=== PATIENT | male | born 1935 | race Caucasian/White ===

== ENCOUNTER 2017-02-03 10:06 | Inpatient (IN) | payer MEDICARE, OTHER ==
[2017-02-03 10:07] VITALS: BMI 26.2
[2017-02-03 11:19] LABS: VENOUS BLOOD GAS PCO2 39 mmHg (40-60); VENOUS BLOOD PH 7.26 (7.32-7.43)
[2017-02-03 11:42] LABS: BASO # 0.2 K/uL (0.0-0.2); BASO % 1.4 % (0.0-2.0); EOS # 0.1 K/uL (0.0-0.7); HEMATOCRIT 33.7 % (35.0-51.0); LYMPH # 1.8 K/uL (1.0-4.3); LYMPH % 13.4 % (20.0-40.0); MEAN CELL VOLUME 84.8 fL (80.0-94.0); MEAN CORPUSCULAR HEMOGLOBIN 28.2 pg (27.0-31.0); MEAN CORPUSCULAR HGB CONC 33.2 g/dL (33.0-37.0); MEAN PLATELET VOLUME 8.5 fL (7.2-11.7); MONO # 1.1 K/uL (0.0-0.8); MONO % 8.6 % (0.0-10.0); RED CELL DISTRIBUTION WIDTH 14.6 % (11.5-14.5)
[2017-02-03 11:43] LABS: WHITE BLOOD COUNT 13.1 K/uL (4.8-10.8)
--- NOTE | 2017-02-03 11:45 | C.PDOC ---
History Of Present Illness 81 year old patient, with a past medical history of insulin dependent diabetes, presents to the ED from the day care complaining of an infection to the right knee. Patient states it started about 5-6 days ago. He notes drainage and pain with movement of the knee. Patient denies fever, numbness, weakness, or other complaints. Time Seen by Provider: 02/03/17 10:32 Chief Complaint (Nursing): Medical Clearance History Per: Patient History/Exam Limitations: no limitations Onset/Duration Of Symptoms: Days (5-6) Current Symptoms Are (Timing): Still Present Severity: Mild Pain Scale Rating Of: 3 Recent travel outside of the [place]: No Past Medical History Reviewed: Historical Data, Nursing Documentation, Vital Signs Vital Signs: Last Vital Signs Temp 97.8 F 02/03/17 13:46 Pulse 60 02/03/17 13:46 Resp 18 02/03/17 13:46 BP 163/75 H 02/03/17 13:46 Pulse Ox 98 02/03/17 13:46 - Medical History PMH: Alzheimer's Disease, Anemia, Arthritis (BACK, BL KNEE), CVA, Dementia, Diabetes, HTN, Hypercholesterolemia, Hyperlipidemia - [facility] Procedures DILATION OF COMMON BILE DUCT WITH INTRALUMINAL DEVICE, ENDO (12/03/15) EXCISION OF SMALL INTESTINE, ENDO, DIAGN (07/21/15) OCCUPATIONAL THERAPY (03/15/14) OTHER SPEECH THERAPY (03/20/14) PHYSICAL THERAPY NEC (11/23/13) RECREATIONAL THERAPY (11/23/13) RELEASE PERITONEUM, PERCUTANEOUS ENDOSCOPIC APPROACH (12/03/15) RESECTION OF GALLBLADDER, PERCUTANEOUS ENDOSCOPIC APPROACH (12/03/15) Family History: States: Unknown Family Hx - Social History Hx Tobacco Use: No Hx Alcohol Use: No Hx Substance Use: No - Immunization History Hx Tetanus Toxoid Vaccination: No Hx Influenza Vaccination: Yes (2014) Hx Pneumococcal Vaccination: No Review Of Systems Except As Marked, All Systems Reviewed And Found Negative. Constitutional: Negative for: Fever Musculoskeletal: Positive for: Other (right knee pain) Skin: Positive for: Other (draining from right knee) Neurological: Negative for: Weakness, Numbness Physical Exam - Physical Exam Appears: Non-toxic, No Acute Distress Skin: Warm, Dry Head: Atraumatic, Normacephalic Oral Mucosa: Moist Neck: Normal ROM, Supple Chest: Symmetrical Cardiovascular: Rhythm Regular Respiratory: Normal Breath Sounds, No Rales, No Rhonchi, No Wheezing Gastrointestinal/Abdominal: Soft, No Tenderness Back: Normal Inspection Extremity: No Calf Tenderness, Capillary Refill (<2 seconds), No Deformity, No Swelling, Other (draining abscess to the lateral aspect of the right knee. At the level of the patella-there is surrounding erythema and cellulitis to the medial aspect of the right knee. There is a non-draining wound at the level of the patella. Slight decrease in range of motion secondary to pain. normal distal pulses. normal strength and sensation.) Neurological/Psych: Oriented x3, Normal Motor, Normal Sensation ED Course And Treatment - Laboratory Results Result Diagrams: 02/03/17 11:37 02/03/17 11:37 ECG: Interpreted By Me, Viewed By Me ECG Rhythm: Sinus Rhythm Interpretation Of ECG: left axis deviation Rate From EC (bpm) O2 Sat by Pulse Oximetry: 99 (room air) Pulse Ox Interpretation: Normal - Other Rad right knee x-ray X-Ray: Read By Radiologist (Dr. Rasmussen, Cyrus GENTILE) Interpretation: PROCEDURE: Right Knee Radiographs. HISTORY: Right leg lump, osteomyelitis suspected following a laceration. COMPARISON: None. FINDINGS: BONES: Normal. No fracture. JOINTS: Normal. No osteoarthritis. JOINT EFFUSION: None. OTHER FINDINGS: None. IMPRESSION: No significant or acute findings to account for/ related to the clinical presentation. Progress Note: VBG was done. Labs were sent. Right knee x-ray taken. Medical Decision Making Medical Decision Making: Spoke to orthopedic PA - recommends no arthocentesis at this time. Patient to be admitted to [facility]. Disposition - Disposition Disposition: HOSPITALIZED Disposition Time: 12:00 Condition: STABLE - Clinical Impression Clinical Impression: JAY JAY (acute kidney injury), Hyperkalemia, Cellulitis of right knee - Scribe Statement The provider has reviewed the documentation as recorded by the Scribe Rianna Malin Provider Attestation: All medical record entries made by the Scribe were at my direction and personally dictated by me. I have reviewed the chart and agree that the record accurately reflects my personal performance of the history, physical exam, medical decision making, and the department course for this patient. I have also personally directed, reviewed, and agree with the discharge instructions and disposition.
[2017-02-03 11:49] LABS: CHLORIDE 105 mmol/L (98-107)
[2017-02-03 11:50] LABS: SODIUM 136 mmol/L (132-148)
[2017-02-03 11:52] LABS: ALB/GLOB RATIO 1.2 (1.0-2.1); ALKALINE PHOSPHATASE 110 U/L (38-126); AST/SGOT 35 U/L (17-59); BILIRUBIN,TOTAL 0.8 mg/dL (0.2-1.3); BLOOD UREA NITROGEN 39 mg/dL (9-20); CARBON DIOXIDE 17 mmol/L (22-30); GFR AFRICAN-AMERICAN 30; GLUCOSE,RANDOM 166 mg/dL (75-110); TOTAL PROTEIN 8.1 g/dL (6.3-8.3)
[2017-02-03 11:53] LABS: ALT/SGPT 30 U/L (21-72); CALCIUM 9.3 mg/dl (8.6-10.4)
[2017-02-03 11:56] LABS: POTASSIUM 5.7 mmol/L (3.6-5.2)
--- NOTE | 2017-02-03 12:18 | RAD ---
PROCEDURE: Right Knee Radiographs. HISTORY: Right leg lump, osteomyelitis suspected following a laceration. COMPARISON: None. FINDINGS: BONES: Normal. No fracture. JOINTS: Normal. No osteoarthritis. JOINT EFFUSION: None. OTHER FINDINGS: None. IMPRESSION: No significant or acute findings to account for/ related to the clinical presentation.
[2017-02-03] MEDS ORDERED: Sod Polystyrene Sulf 15 gm/60 ml Oral Susp PO STA (12:39)
[2017-02-03] MEDS ORDERED: Sod Polystyrene Sulf 15 gm/60 ml Oral Susp ONE (12:53)
[2017-02-03] MEDS ORDERED: Sodium Chloride 0.9% 1,000 ML ONE (12:53)
[2017-02-03] MEDS: Sodium Chloride 0.9% 1,000 ML IV SCH ×2 (12:56→23:00)
--- NOTE | 2017-02-03 13:22 | CP.PCM.CON ---
History of Present Illness - History of Present Illness History of Present Illness: orthopedic consultation requested Dr. Pineda for right knee pain and swelling 81M complains of right knee redness and swelling for approx 5 days. at bedside, says some liquid came out. History difficult to assess, questions asked multiple times to and patient. No history of any prior knee infection. He says he legs itch all the time. No other areas of pain or swelling. Review of Systems - Review of Systems All systems: reviewed and no additional remarkable complaints except - Constitutional Additional comments: denies fevers - Cardiovascular Additional comments: denies CP - Respiratory Additional comments: denies SOB - Musculoskeletal Musculoskeletal: As Per HPI - Integumentary Integumentary: Erythema, Pruritus, Wounds - Neurological Additional comments: denies numbess/tingling - Hematologic/Lymphatic Hematologic: absent: As Per HPI, Easy Bleeding, Easy Bruising, Lymphadenopathy, Other Past Patient History - Past Medical History & Family History Past Medical History?: Yes Past Family History: Reviewed and not pertinent - Past Social History Smoking Status: Never Smoked - CARDIAC Hx Hypercholesterolemia: Yes Hx Hypertension: Yes - PULMONARY Hx Respiratory Disorders: No - NEUROLOGICAL Hx Alzheimer's Disease: Yes Hx Dementia: Yes - HEENT Hx HEENT Problems: Yes Hx Cataracts: Yes (SURGERY) - RENAL Hx Chronic Kidney Disease: No - ENDOCRINE/METABOLIC Hx Endocrine Disorders: Yes Hx Diabetes Mellitus Type 2: Yes - HEMATOLOGICAL/ONCOLOGICAL Hx Anemia: Yes - INTEGUMENTARY Hx Dermatological Problems: No - MUSCULOSKELETAL/RHEUMATOLOGICAL Hx Arthritis: Yes (BACK, BL KNEE) - GASTROINTESTINAL Hx Gastrointestinal Disorders: Yes (''STOMACH BACTERIA'') - GENITOURINARY/GYNECOLOGICAL Hx Genitourinary Disorders: No - PSYCHIATRIC Hx Substance Use: No - SURGICAL HISTORY Hx Surgeries: Yes Hx Cataract Extraction: Yes Other/Comment: LEFT BEHIND EAR SURGERY FROM BLOOD CLOTS ,RIGHT HAND SURGERY - ANESTHESIA Hx Anesthesia: Yes Hx Anesthesia Reactions: No Hx Malignant Hyperthermia: No Meds Allergies/Adverse Reactions: Allergies Allergy/AdvReac Type Severity Reaction Status Date / Time No Known Allergies Allergy Verified 04/30/16 11:22 - Medications Medications: Current Medications Sodium Chloride (Sodium Chloride 0.9%) 1,000 mls @ 100 mls/hr IV .Q10H DARINEL Last Admin: 02/03/17 12:56 Dose: 100 mls/hr Vancomycin HCl 1 gm/ Sodium (Chloride) 250 mls @ 166.7 mls/hr IVPB STAT STA Stop: 02/03/17 14:08 Last Admin: 02/03/17 13:19 Dose: 166.7 mls/hr Physical Exam - Constitutional Appears: No Acute Distress - Respiratory Exam Respiratory Exam: NORMAL BREATHING PATTERN - Extremities Exam Additional comments: Full AROM of right knee without pain no joint effusion erythema localized to around the two wounds no erythema to rest of knee calves soft NT neg homans +DP pulses noted superficial excoriations to BLE, no surrounding erythema - Neurological Exam Additional comments: awake NAD - Psychiatric Exam Psychiatric exam: Flat Affect - Skin Additional comments: + erythema to medial knee 3cm circ surrounding 1cm scab larger area of erythema 10cm around superficial draining abscess to lateral knee Results - Vital Signs Recent Vital Signs: Last Vital Signs Temp 97.6 F 02/03/17 10:23 Pulse 71 02/03/17 10:23 Resp 18 02/03/17 10:23 BP 133/67 02/03/17 10:23 Pulse Ox 99 02/03/17 12:33 - Labs Result Diagrams: 02/03/17 11:37 02/03/17 11:37 Labs: Laboratory Results - last 24 hr 02/03/17 02/03/17 02/03/17 11:14 11:37 11:37 WBC 13.1 H D RBC 3.97 L Hgb 11.2 L Hct 33.7 L MCV 84.8 MCH 28.2 MCHC 33.2 RDW 14.6 H Plt Count 361 D MPV 8.5 Neut % (Auto) 75.6 H Lymph % (Auto) 13.4 L [place] % (Auto) 8.6 Eos % (Auto) 1.0 Baso % (Auto) 1.4 Neut # 9.9 H Lymph # 1.8 Republic # 1.1 H Eos # 0.1 Baso # 0.2 pO2 37 VBG pH 7.26 L VBG pCO2 39 L VBG HCO3 16.9 VBG Total CO2 18.7 L VBG O2 Sat (Calc) 69.2 H VBG Base Excess -9.0 L VBG Potassium 5.2 Sodium 142.0 136 Chloride 113.0 H 105 Glucose 166 H Lactate 1.6 Potassium 5.7 H Carbon Dioxide 17 L Anion Gap 20 BUN 39 H Creatinine 2.5 H Est GFR ( Amer) 30 Est GFR (Non-Af Amer) 25 Random Glucose 166 H Calcium 9.3 Total Bilirubin 0.8 AST 35 ALT 30 Alkaline Phosphatase 110 Total Protein 8.1 Albumin 4.4 Globulin 3.7 Albumin/Globulin Ratio 1.2 Venous Blood Potassium 5.2 Serum Ketones Negative Assessment & Plan (1) Cellulitis and abscess of right leg Assessment and Plan: No joint effusion, full ROM knee without pain, clinically very low suspicion of septic arthritis no arthrocentesis indicated at time due to lack of effusion, low suspicion, and risk of seeding joint abscess is spontaneously draining at this time, will monitor to make sure it continues to drain, will reeval need for I&D IV abx per medical team MRI to further eval abscess, no contrast due to elevated Cr d/w Dr. Pineda, agrees with above Status: Acute Radiology Interpretation - Patient Access Director Patient Access Director:: Radiologist, Tile Classifier - Radiology Interpretation #2 Interpretation: Patient Name / ID : YOLANDA HAMM / [id number] Exam Date : 02/03/2017 10:55:44 ( Approved ) Study Comment : Sex / Age : M / [id number] Creator : Cyrus Dai MD Dictator : Cyrus Dai MD Rubberizing Mechanic : Assistant Director Of Public Works : Cyrus Dai MD Approver2 : Report Date : 02/03/2017 12:17:16 My Comment : PROCEDURE: Right Knee Radiographs. HISTORY: Right leg lump, osteomyelitis suspected following a laceration. COMPARISON: None. FINDINGS: BONES: Normal. No fracture. JOINTS: Normal. No osteoarthritis. JOINT EFFUSION: None. OTHER FINDINGS: None. IMPRESSION: No significant or acute findings to account for/ related to the clinical presentation.
--- NOTE | 2017-02-03 16:38 | CP.PCM.HP ---
<Rober Cervantes - Last Filed: 02/03/17 17:04> History of Present Illness - History of Present Illness History of Present Illness: This is a an 81 yo male with past medical hx of DM, HTN, HLD, Alzheimers presenting with right knee pain x 1 week. Pt cannot rate pain on pain scale. Associated with some pus drainage and erythema and warmth. NO fevers, chills, vomiting, diarrhea, or other systemic sx. Pt cannot say if he has tried to alleviate sx at home. Pt has never had this before. He has reduced rom and cannot bear weight. PMH: HTN, CVA, HLD, Alzheimer's PSH: None Current meds: pending pharmacy confirmation Allergies: NKDA FH: Non contributory Social hx: Denies smoking or ever smoking. Denies drinking or drugs. Lives in [place] with . Able to do ADLs with help of cane. Present on Admission - Present on Admission Any Indicators Present on Admission: No History of DVT/PE: No History of Uncontrolled Diabetes: No Urinary Catheter: No Decubitus Ulcer Present: No Review of Systems - Review of Systems All systems: reviewed and no additional remarkable complaints except Review of Systems: Negative except HPI. Past Patient History - Infectious Disease Hx of Infectious Diseases: None - Tetanus Immunizations Tetanus Immunization: Unknown - Past Medical History & Family History Past Medical History?: Yes Past Family History: Reviewed and not pertinent - Past Social History Smoking Status: Never Smoked Chewing Tobacco Use: No Cigar Use: No Alcohol: None Drugs: Denies Home Situation {Lives}: With Family Domestic Violence: Negative - CARDIAC Hx Hypercholesterolemia: Yes Hx Hypertension: Yes - PULMONARY Hx Respiratory Disorders: No - NEUROLOGICAL Hx Alzheimer's Disease: Yes Hx Dementia: Yes - HEENT Hx HEENT Problems: Yes Hx Cataracts: Yes (SURGERY) - RENAL Hx Chronic Kidney Disease: No - ENDOCRINE/METABOLIC Hx Endocrine Disorders: Yes Hx Diabetes Mellitus Type 2: Yes - HEMATOLOGICAL/ONCOLOGICAL Hx Anemia: Yes - INTEGUMENTARY Hx Dermatological Problems: No - MUSCULOSKELETAL/RHEUMATOLOGICAL Hx Arthritis: Yes (BACK, BL KNEE) - GASTROINTESTINAL Hx Gastrointestinal Disorders: Yes (''STOMACH BACTERIA'') - GENITOURINARY/GYNECOLOGICAL Hx Genitourinary Disorders: No - PSYCHIATRIC Hx Substance Use: No - SURGICAL HISTORY Hx Surgeries: Yes Hx Cataract Extraction: Yes Other/Comment: LEFT BEHIND EAR SURGERY FROM BLOOD CLOTS ,RIGHT HAND SURGERY - ANESTHESIA Hx Anesthesia: Yes Hx Anesthesia Reactions: No Hx Malignant Hyperthermia: No Meds Allergies/Adverse Reactions: Allergies Allergy/AdvReac Type Severity Reaction Status Date / Time No Known Allergies Allergy Verified 04/30/16 11:22 Physical Exam - Constitutional Appears: Non-toxic, No Acute Distress - Head Exam Head Exam: ATRAUMATIC, NORMAL INSPECTION, NORMOCEPHALIC - Eye Exam Eye Exam: EOMI - ENT Exam ENT Exam: Mucous Membranes Moist - Neck Exam Neck exam: Positive for: Full Rom, Normal Inspection - Respiratory Exam Respiratory Exam: NORMAL BREATHING PATTERN. absent: Respiratory Distress - Cardiovascular Exam Cardiovascular Exam: +S1, +S2 - GI/Abdominal Exam GI & Abdominal Exam: Normal Bowel Sounds, Soft. absent: Tenderness - Extremities Exam Extremities exam: Negative for: full ROM, normal inspection Additional comments: Right knee erythema and warmth, reduced active and passive range of motion, 2 lesions with scabbing - Neurological Exam Neurological exam: Alert - Psychiatric Exam Psychiatric exam: Flat Affect - Skin Skin Exam: Dry, Normal Color, Warm Results - Vital Signs Recent Vital Signs: Last Vital Signs Temp 97.8 F 02/03/17 13:46 Pulse 60 02/03/17 13:46 Resp 18 02/03/17 13:46 BP 163/75 H 02/03/17 13:46 Pulse Ox 99 02/03/17 15:00 - Labs Result Diagrams: 02/03/17 11:37 02/03/17 11:37 Assessment & Plan - Assessment and Plan (Free Text) Assessment: This is an 81 yo male with past medical hx of HTN, HLD, DM, CVA presenting with painful, erythematous right knee 1. R/o osteomyelitis vs. septic arthritis -will start IV vanco -will start IV tefalro -ID consult. Dr. Langford. recs appreciated. -ortho consult. recs appreciated. -NS 100 -blood and wound cultures -MRI pending 2. Hyperkalemia -kayexalate given in er, will continue to monitor 3. Hx of HTN -continue to monitor -will restart home norvasc 4. Hx of HLD -continue to monitor -will restart home lipitor 5. hx of CVA -continue to monitor -asa and plavix daily 6 GI/DVT ppx -protonix -scds discussed with Dr. Posada. <Aaron Posada - Last Filed: 02/03/17 18:41> History of Present Illness - History of Present Illness History of Present Illness: cc: right knee pain x 1 week Results - Vital Signs Recent Vital Signs: Last Vital Signs Temp 97.6 F 02/03/17 16:45 Pulse 63 02/03/17 16:45 Resp 20 02/03/17 16:45 BP 163/75 H 02/03/17 18:04 Pulse Ox 98 02/03/17 16:45 - Labs Result Diagrams: 02/03/17 11:37 02/03/17 11:37 Labs: Laboratory Results - last 24 hr 02/03/17 17:14 POC Glucose (mg/dL) 87 Attending/Attestation - Attestation I have personally seen and examined this patient.: Yes I have fully participated in the care of the patient.: Yes I have reviewed all pertinent clinical information: Yes Notes (Text): Patient seen and examined with the resident. Agree with the resident's evaluation, assessment and plan. 1. right knee pain - infection with all of the following differential diagnoses ? cellulitis ? abscess ? septic knee ? osteomyelitis iv abx cover mrsa consult ortho 2. Hyperkalemia hold oral potassium kayexalate lasix 3 CKD 4 dm 2 5 htn
[2017-02-03] MEDS ORDERED: Vancomycin 1 gm/NS 200 ml 1 GM/200 ML BAG IVPB SCH (16:45)
--- NOTE | 2017-02-03 17:18 | MRI ---
PROCEDURE: MRI Right Knee HISTORY: Pain. COMPARISON: None available. TECHNIQUE: Multiecho multiplanar sequences were performed through the right knee. FINDINGS: ANTERIOR CRUCIATE LIGAMENT:: Intact. POSTERIOR CRUCIATE LIGAMENT:: Intact. MEDIAL MENISCUS:: Linear grade 2 signal in the posterior horn of medial meniscus.. LATERAL MENISCUS:: Intact. MEDIAL COLLATERAL LIGAMENT:: Intact. LATERAL COLLATERAL LIGAMENT COMPLEX:: Intact. QUADRICEPS TENDON:: Intact. PATELLAR TENDON:: Intact. CARTILAGE:: Intact. JOINT FLUID:: Intact. OSSEOUS STRUCTURES:: Intact. OTHER FINDINGS: None. Extensive subcutaneous soft tissue swelling particularly medially consistent with a cellulitis in the appropriate clinical setting. No evidence of drainable fluid collection to suggest abscess.. IMPRESSION: Extensive subcutaneous soft tissue swelling particularly medially compatible with a cellulitis. No definite evidence of drainable abscess..
[2017-02-03] MEDS: Metoprolol Succinate 100 mg XL Tab PO SCH (18:04)
[2017-02-03] MEDS: (Novolin R) Insulin Human Regular 100 units/ml vial SC SCH (22:18)
--- NOTE | 2017-02-03 22:20 | CP.PCM.CON ---
History of Present Illness - History of Present Illness History of Present Illness: 81-year-old male with PMH = diabetes, hypertension, hyperlipidemia, Alzheimer's with advanced dementia presented to the emergency room at [facility] on with R knee redness, pain, drainage at lateral aspect of the knee for almost one week. patient is a very poor historian and does not interact verbally, cannot provide or confirm history. All history was obtained from family members, his niece and [id number]. His who is present is also demented and cannot provide a good history. Family members state that he developed rednessand drainage at the R knee lateral aspect approximately 5-7 days ago that has progressively worsened and has show no signs of improvement, finally they brought him to the ER at [facility] today. they deny any trauma or falls, they deny any bug bites that they're aware of. They deny any fevers, chills, headache, nausea and vomiting, chest pain, shortness of breath, numbness or tingling, or calf pain. He has never shown or complained that he has had any difficulty with range of motion of the knee. He was evaluated by ER staff and after review of imaging, he was diagnosed with right knee cellulitis and a draining abscess. He was admitted to the medical service under the resident/teaching service and IV antibiotics were started. I evaluated the patient as an inpatient on 02/03/17 at [facility] The above history was confirmed with family members available bedside and review of documentation. review of imaging: R knee x-rays, 02/03/17: No evidence of fracture or dislocation, soft tissue swelling laterally and medially MRI R knee without contrast (contrast cannot be administered due to elevated creatinine), 02/03/17: Initial MRI report was read as no abscess or collection and only confirmed medially sided cellulitis and soft tissue swelling. I personally reviewed the MRI and spoke with the director learning as well as reviewed the imaging with him, Dr. Argueta confirmed that there is a 1.5 cm x 1 cm abscess at the lateral aspect of the knee that is subcutaneous with no visible extension to the knee joint and is in fact extra-articular. There will be an addendum. Past Patient History - Infectious Disease Hx of Infectious Diseases: None - Tetanus Immunizations Tetanus Immunization: Unknown - Past Medical History & Family History Past Medical History?: Yes Past Family History: Reviewed and not pertinent - Past Social History Smoking Status: Never Smoked - CARDIAC Hx Hypercholesterolemia: Yes Hx Hypertension: Yes - PULMONARY Hx Respiratory Disorders: No - NEUROLOGICAL Hx Alzheimer's Disease: Yes Hx Dementia: Yes - HEENT Hx HEENT Problems: Yes Hx Cataracts: Yes (SURGERY) - RENAL Hx Chronic Kidney Disease: No - ENDOCRINE/METABOLIC Hx Endocrine Disorders: Yes Hx Diabetes Mellitus Type 2: Yes - HEMATOLOGICAL/ONCOLOGICAL Hx Anemia: Yes - INTEGUMENTARY Hx Dermatological Problems: No - MUSCULOSKELETAL/RHEUMATOLOGICAL Hx Arthritis: Yes (BACK, BL KNEE) - GASTROINTESTINAL Hx Gastrointestinal Disorders: Yes (''STOMACH BACTERIA'') - GENITOURINARY/GYNECOLOGICAL Hx Genitourinary Disorders: No - PSYCHIATRIC Hx Substance Use: No - SURGICAL HISTORY Hx Surgeries: Yes Hx Cataract Extraction: Yes Other/Comment: LEFT BEHIND EAR SURGERY FROM BLOOD CLOTS ,RIGHT HAND SURGERY - ANESTHESIA Hx Anesthesia: Yes Hx Anesthesia Reactions: No Hx Malignant Hyperthermia: No Meds Home Medications: Home Medication List Medication Instructions Recorded Confirmed Type Ascorbic Acid [Vitamin C 250 mg 250 mg PO DAILY #30 tab 02/13/17 Rx Tab] Aspirin [Aspirin Chewable] 81 mg PO DAILY #30 02/13/17 Rx Clopidogrel [Plavix] 75 mg PO DAILY tab 02/13/17 Rx Ferrous Sulfate [Feosol] 325 mg PO Q12H tab 02/13/17 Rx Levothyroxine [Synthroid] 50 mcg PO DAILY #30 tab 02/13/17 Rx amLODIPine [Norvasc] 10 mg PO DAILY tab 02/13/17 Rx Allergies/Adverse Reactions: Allergies Allergy/AdvReac Type Severity Reaction Status Date / Time No Known Allergies Allergy Verified 04/30/16 11:22 - Medications Medications: Current Medications Acetaminophen (Tylenol 325mg Tab) 650 mg PO Q6 PRN PRN Reason: Fever >100.4 F Amlodipine Besylate (Norvasc) 10 mg PO DAILY [facility] Last Admin: 02/03/17 18:00 Dose: 10 mg Famotidine (Pepcid) 20 mg IVP DAILY [facility] Furosemide (Lasix) 20 mg PO DAILY [facility] Last Admin: 02/03/17 18:04 Dose: 20 mg Sodium Chloride (Sodium Chloride 0.9%) 1,000 mls @ 100 mls/hr IV .Q10H [facility] Last Admin: 05/23/17 12:56 Dose: 100 mls/hr Vancomycin/Sodium Chloride (Vancocin) 1 gm in 200 mls @ 133 mls/hr IVPB Q12H [facility] Stop: 02/09/17 01:01 Insulin Human Regular (Novolin R) 0 unit SC ACHS [facility] PRN Reason: Protocol Levothyroxine Sodium (Synthroid) 50 mcg PO DAILY@0630 [facility] Metoprolol Succinate (Toprol Xl) 100 mg PO DAILY [facility] Last Admin: 02/03/17 18:04 Dose: 100 mg Rosuvastatin Calcium (Crestor) 5 mg PO HS [facility] Last Admin: 02/03/17 22:02 Dose: 5 mg Physical Exam - Extremities Exam Additional comments: right lower extremity: Knee: Significant area of blanching erythema measuring approximately 6 cm x 6 cm at the lateral aspect of the knee superior to the level of the fibular head with a central area of fluctuance 2cm x 2 cm and draining pus from central area/ scab. This area has significant TTP and warmth. There is a secondary area of blanching erythema with a small central eschar localized to the medial aspect of the knee joint with no fluctuance or palpable collection or drainage. There is full range of motion of the knee joint without pain, the only pain is with palpation to the area of fluctuance and erythema. No instability. + 5/5 motor strength hip flexion/extension, knee flexion/extension, ankle dorsiflexion/plantarflexion, toes up and down Sensory intact L2-S2, DPN/TN/SPN 2+ dorsalis pedis pulse, brisk cap refill all toes Left lower extremity: No area of tenderness to palpation, no swelling/warmth/ erythema, full range of motion at all joints without pain, no instability, skin intact + 5/5 motor strength hip flexion/extension, knee flexion/extension, ankle dorsiflexion/plantarflexion, toes up and down Sensory intact L2-S2, DPN/TN/SPN 2+ dorsalis pedis pulse, brisk cap refill all toes Results - Vital Signs Recent Vital Signs: Last Vital Signs Temp 97.6 F 02/03/17 16:45 Pulse 63 02/03/17 16:45 Resp 20 02/03/17 16:45 BP 163/75 H 02/03/17 18:04 Pulse Ox 98 02/03/17 16:45 - Labs Result Diagrams: 02/13/17 07:11 02/13/17 07:11 Labs: Laboratory Results - last 24 hr 02/03/17 02/03/17 17:14 21:23 POC Glucose (mg/dL) 87 135 H Assessment & Plan (1) Cellulitis and abscess of right leg Status: Acute - Assessment and Plan (Free Text) Assessment: 81-year-old male with multiple PMH including history of CVA, currently on Plavix (last dose today in the morning) presented to the ER at [facility] on 02/03/17 with R knee pain, redness, drainage for 5-7 days. DX = R knee #1 lateral subcutaneous draining abscess with surrounding cellulitis #2 secondary area of cellulitis without abscess or drainage at medial aspect of knee Plan: -Clinically and on MRI, R knee with 1.5 cm x 1.0 cm subcutaneous draining abscess with surrounding cellulitis and secondary area of cellulitis at medial knee -There is no evidence of intra-articular extension of the infection/no evidence of septic knee, full pain-free ROM -Indicated for irrigation and debridement of lateral abscess and placement of packing as well as acquisition of cultures -In the setting of Plavix intake and inability to wait 5-7 days for Plavix effect to wear off and have normal platelet function, it is ideal to perform this procedure in the operating room in a controlled environment where electrocautery is available -if he is medically stable for surgery under anesthesia and can undergo formal I &D in the operating room then we will proceed tomorrow -If it is deemed that he is medically unstable and not cleared for anesthesia, then we will perform the I&D bedside vs in OR under sedation or just local anesthetic and also obtain cultures and place packing -I spent a long time with the family members explaining the risks/benefits/ alternatives to performing both procedures, all questions were answered, they accept the risks and wished to proceed with either plan depending on medical clearance -will be an close communication with medical team and determine definitive plan in the morning -Nothing by mouth after midnight -IV fluid hydration -Will obtain informed consent from patient's niece (closest direct blood relative) there is no official healthcare proxy or power of employment attorney, his is also demented and cannot provide informed consent Thank you for allowing me to participate in the care of your patient Please contact me directly if any questions, concerns, updates at [phone] Mila Pineda MD Orthopedic Surgery
[2017-02-04] MEDS ORDERED: Albuterol-Ipratrop 3 mg / 0.5 (3 ml) UD INH STA (00:22)
[2017-02-04] MEDS: Vancomycin 1 gm/NS 200 ml 1 GM/200 ML BAG IVPB SCH (00:36)
--- NOTE | 2017-02-04 00:55 | RAD ---
HISTORY: pre op COMPARISON: 04/30/2016 FINDINGS: LUNGS: No active pulmonary disease. PLEURA: No significant pleural effusion identified, no pneumothorax apparent. CARDIOVASCULAR: Normal. OSSEOUS STRUCTURES: No significant abnormalities. VISUALIZED UPPER ABDOMEN: Normal. OTHER FINDINGS: Stable atherosclerotic change of the aorta is noted. IMPRESSION: No active disease.
[2017-02-04 03:23] LABS: BASO # 0.1 K/uL (0.0-0.2); EOS # 0.3 K/uL (0.0-0.7); NRBC % 0.1 % (0.0-2.0)
[2017-02-04 03:25] LABS: BASO % 1.1 % (0.0-2.0); EOS % 2.7 % (0.0-4.0); MEAN CELL VOLUME 82.9 fL (80.0-94.0); MEAN CORPUSCULAR HEMOGLOBIN 27.7 pg (27.0-31.0); MEAN CORPUSCULAR HGB CONC 33.4 g/dL (33.0-37.0); MEAN PLATELET VOLUME 8.4 fL (7.2-11.7); MONO % 10.1 % (0.0-10.0); RED CELL DISTRIBUTION WIDTH 14.2 % (11.5-14.5); WHITE BLOOD COUNT 9.5 K/uL (4.8-10.8)
[2017-02-04 03:26] LABS: INR 1.1
[2017-02-04 03:28] LABS: POTASSIUM 4.2 mmol/L (3.6-5.2)
[2017-02-04 03:30] LABS: BILIRUBIN,TOTAL 0.5 mg/dL (0.2-1.3)
[2017-02-04 03:31] LABS: ALB/GLOB RATIO 1.3 (1.0-2.1); CALCIUM 8.5 mg/dl (8.6-10.4); MAGNESIUM 2.1 mg/dL (1.6-2.3); PHOSPHOROUS 3.6 mg/dL (2.5-4.5); TOTAL PROTEIN 6.5 g/dL (6.3-8.3)
[2017-02-04] MEDS: Levothyroxine 50 MCG TAB PO SCH (06:36)
[2017-02-04] MEDS: (Novolin R) Insulin Human Regular 100 units/ml vial SC SCH ×4 (08:17→22:43)
[2017-02-04] MEDS: Metoprolol Succinate 100 mg XL Tab PO SCH (09:26)
--- NOTE | 2017-02-04 11:20 | US ---
HISTORY: pain, two open wound with purulent material TECHNIQUE: Realtime sonography through the scrotum with color and doppler flow. COMPARISON: None Available. FINDINGS: RIGHT TESTICLE: Measures 3.6 x 1.1 x 2.4 cm. Homogeneous echotexture. Normal flow. Simple cyst in the upper pole right testicle, 3 x 3 x 7 mm. RIGHT EPIDIDYMIS: Normal size and morphology. There is an epididymal cyst in the tail of the epididymis, measuring 3 x 4 x 4 mm. LEFT TESTICLE: Measures 3.2 x 1.5 x 2.4 cm. There is a focal heterogeneity of the testicular echotexture in the lower pole in a region vaguely defined, measuring 4 x 5 x 5 mm. . Uncertain significance. No focal hypervascularity. A vessel is seen to course directly through this region and the heterogeneity may be due to the presence of this prominent vessel. No discrete testicular mass. LEFT EPIDIDYMIS: Normal size and morphology HYDROCELE: None. VARICOCELE: None. OTHER FINDINGS: In the inferior left scrotum, there is an extratesticular hypoechoic region measuring 0.7 x 1.3 x 1.5 cm. This is hypervascular. This may represent a small focal inflammatory process. This does not represent an abscess currently, given the internal blood flow demonstrated. Focal calcification posterior left scrotum, extratesticular, measuring 3 x 4 x 7 mm. IMPRESSION: Small area of heterogeneous echotexture lower pole left testicle, possibly related to the presence of a prominent vessel in this region. No evidence of epididymo-orchitis. Small right testicular cyst. Hypoechoic area in the inferior left scrotum, possibly focal inflammatory change. No juana abscess noted. Incidental left scrotal calcification posteriorly common nonspecific.
--- NOTE | 2017-02-04 11:39 | CP.PCM.PN ---
<Rober Cervantes - Last Filed: 02/04/17 12:15> Subjective - Date & Time of Evaluation Date of Evaluation: 02/04/17 Time of Evaluation: 11:35 - Subjective Subjective: Med progress note. Attending: Dr. Menchaca Pt seen and examined at bedside. No acute distress. No events overnight. Testicular us pending, or today for I/D of right knee abscess. VSS. No fevers, chills, vomiting, diarrhea. Objective - Vital Signs/Intake and Output Vital Signs (last 24 hours): Temp Pulse Resp BP Pulse Ox 99.1 F 80 20 136/75 97 02/04/17 08:53 02/04/17 08:53 02/04/17 08:53 02/04/17 08:53 02/04/17 08:53 Intake and Output: 02/04/17 02/04/17 06:59 18:59 Intake Total 1000 Balance 1000 - Medications Medications: Current Medications Acetaminophen (Tylenol 325mg Tab) 650 mg PO Q6 PRN PRN Reason: Fever >100.4 F Amlodipine Besylate (Norvasc) 10 mg PO DAILY [facility] Last Admin: 02/04/17 09:26 Dose: 10 mg Famotidine (Pepcid) 20 mg IVP DAILY [facility] Last Admin: 02/04/17 09:25 Dose: 20 mg Furosemide (Lasix) 20 mg PO DAILY [facility] Last Admin: 02/03/17 18:04 Dose: 20 mg Heparin Sodium (Porcine) (Heparin) 5,000 units SC Q12 [facility] Last Admin: 02/04/17 09:12 Dose: Not Given Sodium Chloride (Sodium Chloride 0.9%) 1,000 mls @ 100 mls/hr IV .Q10H [facility] Last Admin: 02/03/17 23:00 Dose: 100 mls/hr Vancomycin/Sodium Chloride (Vancocin) 1 gm in 200 mls @ 133 mls/hr IVPB Q12H [facility] Stop: 02/09/17 01:01 Last Admin: 02/04/17 00:36 Dose: 133 mls/hr Insulin Human Regular (Novolin R) 0 unit SC ACHS [facility] PRN Reason: Protocol Last Admin: 02/04/17 08:17 Dose: Not Given Levothyroxine Sodium (Synthroid) 50 mcg PO DAILY@0630 [facility] Last Admin: 02/04/17 06:36 Dose: Not Given Metoprolol Succinate (Toprol Xl) 100 mg PO DAILY [facility] Last Admin: 02/04/17 09:26 Dose: 100 mg Rosuvastatin Calcium (Crestor) 5 mg PO HS [facility] Last Admin: 02/03/17 22:02 Dose: 5 mg - Labs Labs: 02/04/17 03:19 02/04/17 03:19 PT 12.3 SECONDS (9.7-12.2) H 02/04/17 03:19 INR 1.1 02/04/17 03:19 APTT 29 SECONDS (21-34) 02/04/17 03:19 - Constitutional Appears: Non-toxic, No Acute Distress - Head Exam Head Exam: ATRAUMATIC, NORMAL INSPECTION, NORMOCEPHALIC - Eye Exam Eye Exam: EOMI - ENT Exam ENT Exam: Mucous Membranes Moist - Neck Exam Neck Exam: Full ROM, Normal Inspection - Respiratory Exam Respiratory Exam: NORMAL BREATHING PATTERN. absent: Respiratory Distress - Cardiovascular Exam Cardiovascular Exam: +S1, +S2 - GI/Abdominal Exam GI & Abdominal Exam: Soft, Normal Bowel Sounds. absent: Tenderness - Exam Exam: Scrotal Swelling Additional comments: 2 lesions on scrotum, no drainage currently - Extremities Exam Extremities Exam: absent: Full ROM, Normal Inspection - Back Exam Back Exam: NORMAL INSPECTION - Neurological Exam Neurological Exam: Alert, Awake - Psychiatric Exam Psychiatric exam: Normal Affect, Normal Mood - Skin Skin Exam: Dry, Intact, Normal Color, Warm Assessment and Plan - Assessment and Plan (Free Text) Assessment: This is an 81 yo male with past medical hx of HTN, HLD, DM, CVA presenting with painful, erythematous right knee 1. R/o osteomyelitis vs. septic arthritis -continue IV vanco 1 g q12, will hold because of renal dx, will f/u id recs, will draw random vanco -ID consult. Dr. Langford. recs appreciated. -will add florastor 250 bid -ortho consult. recs appreciated. -NS 100 -blood and wound cultures pending -MRI shows extensive swelling compatible with cellulitis. no evidence of abscess (please see full report) -right knee x ray negative -PT/OT eval -pt to go to OR today for I/D -medically optimized for sx 2. Testicular lesions -testicular us shows small area heterogeneous echotexture lower pole of left testicle, no evidence of epididymo-orchitis, right testicular cyst, inflammatory changes, no abscess -wound care. -continue to monitor -urology consult. Dr. Leal. recs appreciated. 2. Hyperkalemia -kayexalate given in er, will continue to monitor 3. Hx of HTN -continue to monitor -will restart home norvasc 10 daily PO 4. Hx of HLD -continue to monitor -will restart home lipitor>> changed to crestor 5 mg PO HS 5. hx of DM -nephrology consult. recs appreciated. -iss 6. hx of CVA -continue to monitor -asa 81 mg po daily and plavix 75 mg po daily, held for sx. 7 GI/DVT ppx -protonix 40 mg daily -scds discussed with Dr. Menchaca <Gladys Menchaca V - Last Filed: 02/04/17 23:09> Objective - Vital Signs/Intake and Output Vital Signs (last 24 hours): Temp Pulse Resp BP Pulse Ox 97.4 F L 66 20 124/81 96 02/04/17 16:00 02/04/17 16:00 02/04/17 16:00 02/04/17 16:16 02/04/17 16:00 Intake and Output: 02/04/17 02/05/17 18:59 06:59 Intake Total 640 Balance 640 - Medications Medications: Current Medications Acetaminophen (Tylenol 325mg Tab) 650 mg PO Q6 PRN PRN Reason: Fever >100.4 F Amlodipine Besylate (Norvasc) 10 mg PO DAILY [facility] Last Admin: 02/04/17 09:26 Dose: 10 mg Famotidine (Pepcid) 20 mg IVP DAILY [facility] Last Admin: 02/04/17 09:25 Dose: 20 mg Furosemide (Lasix) 20 mg PO DAILY [facility] Last Admin: 02/04/17 16:16 Dose: 20 mg Heparin Sodium (Porcine) (Heparin) 5,000 units SC Q12 [facility] Last Admin: 02/04/17 09:12 Dose: Not Given Sodium Chloride (Sodium Chloride 0.9%) 1,000 mls @ 100 mls/hr IV .Q10H [facility] Last Admin: 02/04/17 17:57 Dose: 100 mls/hr Vancomycin/Sodium Chloride (Vancocin) 1 gm in 200 mls @ 133 mls/hr IVPB Q12H [facility] Stop: 02/09/17 01:01 Last Admin: 02/04/17 00:36 Dose: 133 mls/hr Insulin Human Regular (Novolin R) 0 unit SC ACHS [facility] PRN Reason: Protocol Last Admin: 02/04/17 22:43 Dose: Not Given Levothyroxine Sodium (Synthroid) 50 mcg PO DAILY@0630 [facility] Last Admin: 02/04/17 06:36 Dose: Not Given Metoprolol Succinate (Toprol Xl) 100 mg PO DAILY [facility] Last Admin: 02/04/17 09:26 Dose: 100 mg Rosuvastatin Calcium (Crestor) 5 mg PO HS [facility] Last Admin: 02/03/17 22:02 Dose: 5 mg Saccharomyces Boulardii (Florastor) 250 mg PO BID [facility] Last Admin: 02/04/17 17:56 Dose: 250 mg - Labs Labs: 02/04/17 03:19 02/04/17 03:19 PT 12.3 SECONDS (9.7-12.2) H 02/04/17 03:19 INR 1.1 02/04/17 03:19 APTT 29 SECONDS (21-34) 02/04/17 03:19 Attending/Attestation - Attestation I have personally seen and examined this patient.: Yes I have fully participated in the care of the patient.: Yes I have reviewed all pertinent clinical information, including history, physical exam and plan: Yes Notes (Text): Patient seen, examined and case discussed with day-time resident. Patient seen during morning rounds. Patient denies acute complaints but noting over his right knee that he has some pain. On exam, patient has mild erythema and fluctuance noted over the right lateral aspect of the knee. Patient is scheduled for OR today with orthopedics for irrigation drainage of the knee. Nephrology and urology consulted. Assessment/Plan 1. Right Knee Pain; Cellulitis and Abscess R/o osteomyelitis vs. septic arthritis * continue IV vanco 1 g q12, will hold because of renal dx, will f/u id recs, will draw random vanco * ID consult. Dr. Langford. recs appreciated. * start florastor 250 bid * Ortho (Dr. Segura) on the case consult. recs appreciated. * NS 100cc/hr * blood and wound cultures pending * MRI shows extensive swelling compatible with cellulitis. no evidence of abscess (please see full report)-->to be addendum--> 1.5 cm x 1 cm abscess at the lateral aspect of the knee that is subcutaneous with no visible extension to the knee joint and is in fact extra-articular (discussed between radiology and orthopedic) * right knee x ray negative * PT/OT eval * pt to go to OR today for I/D * Cultures collected during OR-->follow-up * Preoperative note: Right knee #1 lateral extra-articular subcutaneous draining abscess. #2 lateral and medial cellulitis. Operation Performed: Right knee #1 I&D of lateral abscess. #2 acquisition of cultures and Bx. #3 placement of packing. Specimen/Specimens Removed: Cx's x3 swabs, Cx's x1 abscess tissue, AFB & fungus sent to micro 2. Testicular lesions * testicular us shows small area heterogeneous echotexture lower pole of left testicle, no evidence of epididymo-orchitis, right testicular cyst, inflammatory changes, no abscess * continue to monitor * urology consult. Dr. Leal. recs appreciated-->no lesion noted on his exam, recommended for either dermatology or outpatient follow-up 3. Hyperkalemia * kayexalate given in er, will continue to monitor * Normalized today 4. Hx of HTN * Norvasc 10mg PO daily * Toproxl XL 100mg PO daily 5. Hx of HLD * continue to monitor * will restart home lipitor>> changed to crestor 5 mg PO HS 6. Acute on Chronic Renal insufficiency * on IV fluids * Nephrology (Dr. Bates) on board-->help appreciated * insulin sliding scale subq 7. hx of CVA * asa 81 mg po daily and plavix 75 mg po daily, held for sx. * Will follow-up with surgery to determine when to restart * Blood pressure control 8. GI/DVT ppx * Pepcid 20mg IV daily * scds b/l
[2017-02-04] MEDS: Sodium Chloride 0.9% 1,000 ML IV SCH ×2 (12:09→17:57)
[2017-02-04] MEDS ORDERED: Bacitracin 150,000 UNIT in Sodium Chloride 0.9% Irrig 3,000 ML IR SCH (13:30)
[2017-02-04] MEDS ORDERED: HYDROmorphone 0.5 mg/0.5 ml ISec IVP PRN (13:35)
[2017-02-04] MEDS ORDERED: Lactated Ringer's 1,000 ML IV ONE (13:40)
--- NOTE | 2017-02-04 13:40 | RAD ---
PROCEDURE: CHEST RADIOGRAPH, 1 VIEW HISTORY: verify right PICC COMPARISON: 02/03/2017 FINDINGS: LUNGS: Clear. PLEURA: No pneumothorax or pleural fluid seen. CARDIOVASCULAR: Normal heart size. New right PICC catheter terminates at the level of the cavoatrial junction. OSSEOUS STRUCTURES: No significant abnormalities. VISUALIZED UPPER ABDOMEN: Normal. OTHER FINDINGS: None. IMPRESSION: New right PICC catheter terminates approximately at the level of the cavoatrial junction.
[2017-02-04] MEDS ORDERED: Midazolam 2 MG/2 ML VIAL ONE (13:45)
[2017-02-04] MEDS ORDERED: Propofol 10 mg/ml Inj (20 ML) ONE (13:45)
[2017-02-04] MEDS: ceFAZolin IV 2 gm in Dextrose 1 GM/50 ML BAG IVPB ONE ×2 (14:05→14:13)
[2017-02-04] MEDS: Saccharomyces Boulardi 250 mg Cap PO SCH (17:56)
--- NOTE | 2017-02-04 18:31 | CARD ---
APPROVED REPORT EKG Measurement Heart [id number] <Conclusion> Normal sinus rhythm Left axis deviation Minimal voltage criteria for LVH, may be normal variant Abnormal ECG
--- NOTE | 2017-02-04 18:38 | CP.PCM.PN ---
Subjective - Date & Time of Evaluation Date of Evaluation: 02/04/17 Time of Evaluation: 18:35 - Subjective Subjective: Called to se pt because of scrotal lesions. Lesions are non inflamed,not open and non fluctuant. There is no sign of scrotal lesion. A unknown dermatoligical lesion. Suggest if lesions are oc concern consider dermatoligical eval on this admission or on outpatient. Elvis Objective - Vital Signs/Intake and Output Vital Signs (last 24 hours): Temp Pulse Resp BP Pulse Ox 97.4 F L 66 20 124/81 96 02/04/17 16:00 02/04/17 16:00 02/04/17 16:00 02/04/17 16:16 02/04/17 16:00 Intake and Output: 02/04/17 02/04/17 06:59 18:59 Intake Total 1000 Balance 1000 - Medications Medications: Current Medications Acetaminophen (Tylenol 325mg Tab) 650 mg PO Q6 PRN PRN Reason: Fever >100.4 F Amlodipine Besylate (Norvasc) 10 mg PO DAILY [facility] Last Admin: 02/04/17 09:26 Dose: 10 mg Famotidine (Pepcid) 20 mg IVP DAILY [facility] Last Admin: 02/04/17 09:25 Dose: 20 mg Furosemide (Lasix) 20 mg PO DAILY [facility] Last Admin: 02/04/17 16:16 Dose: 20 mg Heparin Sodium (Porcine) (Heparin) 5,000 units SC Q12 [facility] Last Admin: 02/04/17 09:12 Dose: Not Given Sodium Chloride (Sodium Chloride 0.9%) 1,000 mls @ 100 mls/hr IV .Q10H [facility] Last Admin: 02/04/17 17:57 Dose: 100 mls/hr Vancomycin/Sodium Chloride (Vancocin) 1 gm in 200 mls @ 133 mls/hr IVPB Q12H [facility] Stop: 02/09/17 01:01 Last Admin: 02/04/17 00:36 Dose: 133 mls/hr Insulin Human Regular (Novolin R) 0 unit SC ACHS [facility] PRN Reason: Protocol Last Admin: 02/04/17 17:12 Dose: Not Given Levothyroxine Sodium (Synthroid) 50 mcg PO DAILY@0630 [facility] Last Admin: 02/04/17 06:36 Dose: Not Given Metoprolol Succinate (Toprol Xl) 100 mg PO DAILY [facility] Last Admin: 02/04/17 09:26 Dose: 100 mg Rosuvastatin Calcium (Crestor) 5 mg PO HS [facility] Last Admin: 02/03/17 22:02 Dose: 5 mg Saccharomyces Boulardii (Florastor) 250 mg PO BID [facility] Last Admin: 02/04/17 17:56 Dose: 250 mg - Labs Labs: 02/04/17 03:19 02/04/17 03:19 PT 12.3 SECONDS (9.7-12.2) H 02/04/17 03:19 INR 1.1 02/04/17 03:19 APTT 29 SECONDS (21-34) 02/04/17 03:19
--- NOTE | 2017-02-04 18:39 | CP.PCM.CON ---
History of Present Illness - History of Present Illness History of Present Illness: 81 yo male with past medical hx of DM, HTN, HLD, Alzheimers presenting with right knee pain x 1 week. Pt cannot rate pain on pain scale. Associated with some pus drainage and erythema and warmth. NO fevers, chills, vomiting, diarrhea , or other systemic sx. Pt cannot say if he has tried to alleviate sx at home. Pt has never had this before. He has reduced rom and cannot bear weight. pt started on vanco empirically surgical notes reviewed and discussed large abscess drained from lateral right knee - no joint involvement Review of Systems - Review of Systems Systems not reviewed;Unavailable: Altered Mental Status - Constitutional Constitutional: absent: As Per HPI, Anorexia, Chills, Daytime Sleepiness, Excessive Sweating, Fatigue, Fever, Frequent Falls, Headache, Increased Appetite , Lethargy, Malaise, Night Sweats, Snoring, Sleep Apnea, Weight Gain, Weight Loss, Weakness, Other - EENT Eyes: absent: As Per HPI, Blind Spots, Blurred Vision, Change in Vision, Decreased Night Vision, Diplopia, Discharge, Dry Eye, Exophthalmos, Floaters, Irritation, Itchy Eyes, Loss of Peripheral Vision, Pain, Photophobia, Requires Corrective Lenses, Sees Flashes, Spots in Vision, Tunnel Vision, Other Visual Disturbances, Loss of Vision, Other Ears: absent: As Per HPI, Decreased Hearing, Ear Discharge, Ear Pain, Tinnitus, Abnormal Hearing, Disequilibrium, Dizziness, Other Nose/Mouth/Throat: absent: As Per HPI, Epistaxis, Nasal Congestion, Nasal Discharge, Nasal Obstruction, Nasal Trauma, Nose Pain, Post Nasal Drip, Sinus Pain, Sinus Pressure, Bleeding Gums, Change in Voice, Dental Pain, Dry Mouth, Dysphagia, Halitosis, Hoarsness, Lip Swelling, Mouth Lesions, Mouth Pain, Odynophagia, Sore Throat, Throat Swelling, Tongue Swelling, Facial Pain, Neck Pain, Neck Mass, Other - Cardiovascular Cardiovascular: absent: As Per HPI, Acrocyanosis, Chest Pain, Chest Pain at Rest , Chest Pain with Activity, Claudication, Diaphoresis, Dyspnea, Dyspnea on Exertion, Edema, Irregular Heart Rhythm, Pain Radiating to Arm/Neck/Jaw, Leg Edema, Leg Ulcers, Lightheadedness, Orthopnea, Palpitations, Paroxysmal Nocturnal Dyspnea, Pedal Edema, Radiating Pain, Rapid Heart Rate, Slow Heart Rate, Syncope, Other - Respiratory Respiratory: absent: As Per HPI, Cough, Dyspnea, Hemoptysis, Dyspnea on Exertion , Wheezing, Snoring, Stridor, Pain on Inspiration, Chest Congestion, Excessive Mucous Production, Change in Mucous Color, Pain with Coughing, Other - Gastrointestinal Gastrointestinal: absent: As Per HPI, Abdominal Pain, Belching, Bloating, Change in Bowel Habits, Change in Stool Character, Coffee Ground Emesis, Constipation, Cramping, Diarrhea, Dyspepsia, Dysphagia, Early Satiety, Excessive Flatus, Fecal Incontinence, Heartburn, Hematemesis, Hematochezia, Loose Stools, Melena, Nausea, Odynophagia, Temesmus, Vomiting, Other - Genitourinary Genitourinary: absent: As Per HPI, Change in Urinary Stream, Difficulty Urinating, Dysuria, Flank Pain, Hematuria, Pyuria, Nocturia, Urinary Incontinence, Urinary Frequency, Urinary Hesitance, Urinary Urgency, Voiding Freq/Small Amts, Freq UTI, Hx Renal/Bladder Calculi, Hx /Renal Surgery, Bladder Distension, Other - Musculoskeletal Musculoskeletal: absent: As Per HPI, Abnormal Gait, Arthralgias, Atrophy, Back Pain, Deformity, Joint Swelling, Limited Range of Motion, Loss of Height, Muscle Cramps, Muscle Weakness, Myalgias, Neck Pain, Numbness, Radiating Pain into Limb, Stiffness, Tingling, Other - Integumentary Integumentary: absent: As Per HPI, Acne, Alopecia, Bleeding Lesions, Change in Hair, Change in Nails, Change in Pigmentation, Changing Lesions, Dry Skin, Erythema, Furuncle, Hirsutism, Lesions, New Lesions, Non-Healing Lesions, Photosensitivity, Pruritus, Rash, Skin Pain, Skin Ulcer, Sores, Striae, Swelling , Unusual Bruising, Wounds, Jaundice, Other - Neurological Neurological: absent: As Per HPI, Abnormal Gait, Abnormal Hearing, Abnormal Movements, Abnormal Speech, Behavioral Changes, Burning Sensations, Confusion, Convulsions, Disequilibrium, Dizziness, Numbness, Focal Weakness, Frequent Falls , Headaches, Lack of Coordination, Loss of Vision, Memory Loss, Paresthesias, Radicular Pain, Restless Legs, Sensory Deficit, Syncope, Tingling, Tremor, Vertigo, Weakness, Other Visual Disturbances, Other - Psychiatric Psychiatric: absent: As Per HPI, Abnormal Sleep Pattern, Anhedonia, Anxiety, Auditory Hallucinations, Behavioral Changes, Change in Appetite, Change in Libido, Confusion, Depression, Difficulty Concentrating, Hallucinations, Homicidal Ideation, Hopelessness, Irritability, Memory Loss, Mood Swings, Panic Attacks, Paranoia, Suicidal Ideation, Visual Hallucinations, Tactile Hallucinations, Other - Endocrine Endocrine: absent: As Per HPI, Change in Body Appearance, Change in Libido, Cold Intolorance, Deepening of Voice, Excessive Sweating, Fatigue, Flushing, Heat Intolorance, Increase in Ring/Shoe/Hat Size, Palpitations, Polydipsia, Polyphagia, Polyuria, Other - Hematologic/Lymphatic Hematologic: absent: As Per HPI, Easy Bleeding, Easy Bruising, Lymphadenopathy, Other Past Patient History - Infectious Disease Hx of Infectious Diseases: None - Tetanus Immunizations Tetanus Immunization: Unknown - Past Medical History & Family History Past Medical History?: Yes Past Family History: Reviewed and not pertinent - Past Social History Smoking Status: Never Smoked - CARDIAC Hx Hypercholesterolemia: Yes Hx Hypertension: Yes - PULMONARY Hx Respiratory Disorders: No - NEUROLOGICAL Hx Alzheimer's Disease: Yes Hx Dementia: Yes - HEENT Hx HEENT Problems: Yes Hx Cataracts: Yes (SURGERY) - RENAL Hx Chronic Kidney Disease: No - ENDOCRINE/METABOLIC Hx Endocrine Disorders: Yes Hx Diabetes Mellitus Type 2: Yes - HEMATOLOGICAL/ONCOLOGICAL Hx Anemia: Yes - INTEGUMENTARY Hx Dermatological Problems: No - MUSCULOSKELETAL/RHEUMATOLOGICAL Hx Arthritis: Yes (BACK, BL KNEE) - GASTROINTESTINAL Hx Gastrointestinal Disorders: Yes (''STOMACH BACTERIA'') - GENITOURINARY/GYNECOLOGICAL Hx Genitourinary Disorders: No - PSYCHIATRIC Hx Substance Use: No - SURGICAL HISTORY Hx Surgeries: Yes Hx Cataract Extraction: Yes Other/Comment: LEFT BEHIND EAR SURGERY FROM BLOOD CLOTS ,RIGHT HAND SURGERY - ANESTHESIA Hx Anesthesia: Yes Hx Anesthesia Reactions: No Hx Malignant Hyperthermia: No Meds Allergies/Adverse Reactions: Allergies Allergy/AdvReac Type Severity Reaction Status Date / Time No Known Allergies Allergy Verified 04/30/16 11:22 - Medications Medications: Current Medications Acetaminophen (Tylenol 325mg Tab) 650 mg PO Q6 PRN PRN Reason: Fever >100.4 F Amlodipine Besylate (Norvasc) 10 mg PO DAILY [facility] Last Admin: 02/04/17 09:26 Dose: 10 mg Famotidine (Pepcid) 20 mg IVP DAILY [facility] Last Admin: 02/04/17 09:25 Dose: 20 mg Furosemide (Lasix) 20 mg PO DAILY [facility] Last Admin: 02/04/17 16:16 Dose: 20 mg Heparin Sodium (Porcine) (Heparin) 5,000 units SC Q12 [facility] Last Admin: 02/04/17 09:12 Dose: Not Given Sodium Chloride (Sodium Chloride 0.9%) 1,000 mls @ 100 mls/hr IV .Q10H [facility] Last Admin: 02/04/17 17:57 Dose: 100 mls/hr Vancomycin/Sodium Chloride (Vancocin) 1 gm in 200 mls @ 133 mls/hr IVPB Q12H [facility] Stop: 02/09/17 01:01 Last Admin: 02/04/17 00:36 Dose: 133 mls/hr Insulin Human Regular (Novolin R) 0 unit SC ACHS [facility] PRN Reason: Protocol Last Admin: 02/04/17 17:12 Dose: Not Given Levothyroxine Sodium (Synthroid) 50 mcg PO DAILY@0630 [facility] Last Admin: 02/04/17 06:36 Dose: Not Given Metoprolol Succinate (Toprol Xl) 100 mg PO DAILY [facility] Last Admin: 02/04/17 09:26 Dose: 100 mg Rosuvastatin Calcium (Crestor) 5 mg PO HS [facility] Last Admin: 02/03/17 22:02 Dose: 5 mg Saccharomyces Boulardii (Florastor) 250 mg PO BID [facility] Last Admin: 02/04/17 17:56 Dose: 250 mg Physical Exam - Constitutional Appears: Non-toxic, Chronically Ill - Head Exam Head Exam: NORMOCEPHALIC - Eye Exam Eye Exam: Normal appearance, PERRL. absent: Scleral icterus - ENT Exam ENT Exam: Mucous Membranes Dry, Normal External Ear Exam - Neck Exam Neck exam: Negative for: Lymphadenopathy - Respiratory Exam Respiratory Exam: Decreased Breath Sounds, Rhonchi - Cardiovascular Exam Cardiovascular Exam: REGULAR RHYTHM, +S1, +S2 - GI/Abdominal Exam GI & Abdominal Exam: Diminished Bowel Sounds, Distended, Soft. absent: Rebound , Tenderness - Rectal Exam Rectal Exam: Deferred - Exam Exam: Scrotal Swelling - Extremities Exam Extremities exam: Positive for: pedal pulses present. Negative for: calf tenderness, pedal edema, tenderness - Back Exam Back exam: absent: CVA tenderness (L), CVA tenderness (R) - Neurological Exam Neurological exam: Alert, Altered, CN II-XII Intact, Oriented x3 - Psychiatric Exam Psychiatric exam: Depressed - Skin Skin Exam: Dry Results - Vital Signs Recent Vital Signs: Last Vital Signs Temp 97.4 F L 02/04/17 16:00 Pulse 66 02/04/17 16:00 Resp 20 02/04/17 16:00 BP 124/81 02/04/17 16:16 Pulse Ox 96 02/04/17 16:00 - Labs Result Diagrams: 02/04/17 03:19 02/04/17 03:19 Labs: Laboratory Results - last 24 hr 02/03/17 02/04/17 02/04/17 21:23 03:19 03:19 WBC 9.5 RBC 3.49 L Hgb 9.7 L Hct 29.0 L MCV 82.9 MCH 27.7 MCHC 33.4 RDW 14.2 Plt Count 321 MPV 8.4 Neut % (Auto) 65.1 Lymph % (Auto) 21.0 Nelson % (Auto) 10.1 H Eos % (Auto) 2.7 Baso % (Auto) 1.1 Neut # 6.2 Lymph # 2.0 Nelson # 1.0 H Eos # 0.3 Baso # 0.1 PT INR APTT Sodium 138 Potassium 4.2 Chloride 105 Carbon Dioxide 20 L Anion Gap 17 BUN 32 H Creatinine 2.1 H Est GFR ( Amer) 37 Est GFR (Non-Af Amer) 31 POC Glucose (mg/dL) 135 H Random Glucose 210 H Hemoglobin A1c Calcium 8.5 L Phosphorus 3.6 Magnesium 2.1 Total Bilirubin 0.5 AST 42 ALT 26 Alkaline Phosphatase 92 Total Protein 6.5 Albumin 3.6 Globulin 2.9 Albumin/Globulin Ratio 1.3 Random Vancomycin 02/04/17 02/04/17 02/04/17 03:19 03:19 07:21 WBC RBC Hgb Hct MCV MCH MCHC RDW Plt Count MPV Neut % (Auto) Lymph % (Auto) Nelson % (Auto) Eos % (Auto) Baso % (Auto) Neut # Lymph # Nelson # Eos # Baso # PT 12.3 H INR 1.1 APTT 29 Sodium Potassium Chloride Carbon Dioxide Anion Gap BUN Creatinine Est GFR ( Amer) Est GFR (Non-Af Amer) POC Glucose (mg/dL) 122 H Random Glucose Hemoglobin A1c 8.2 H Calcium Phosphorus Magnesium Total Bilirubin AST ALT Alkaline Phosphatase Total Protein Albumin Globulin Albumin/Globulin Ratio Random Vancomycin 02/04/17 02/04/17 02/04/17 11:05 16:14 17:19 WBC RBC Hgb Hct MCV MCH MCHC RDW Plt Count MPV Neut % (Auto) Lymph % (Auto) Nelson % (Auto) Eos % (Auto) Baso % (Auto) Neut # Lymph # Nelson # Eos # Baso # PT INR APTT Sodium Potassium Chloride Carbon Dioxide Anion Gap BUN Creatinine Est GFR ( Amer) Est GFR (Non-Af Amer) POC Glucose (mg/dL) 98 124 H Random Glucose Hemoglobin A1c Calcium Phosphorus Magnesium Total Bilirubin AST ALT Alkaline Phosphatase Total Protein Albumin Globulin Albumin/Globulin Ratio Random Vancomycin 16.65 Assessment & Plan - Assessment and Plan (Free Text) Assessment: elderly diabetic with infected right leg- abscess drained/ cellulitis resolving once cultures back can d/c on keflex or clinda with local wound care and PMD / surg follow up
--- NOTE | 2017-02-04 20:35 | PCM.SURG1 ---
Surgeon's Initial Post Op Note - Surgeon's Notes Surgeon: Mila Pineda MD Window Shade Ring Sewer: None Type of Anesthesia: IV Sedation Pre-Operative Diagnosis: Right knee #1 lateral extra-articular subcutaneous draining abscess. #2 lateral and medial cellulitis Operative Findings: Right knee #1 lateral extra-articular subcutaneous draining abscess. #2 lateral and medial cellulitis Post-Operative Diagnosis: Right knee #1 lateral extra-articular subcutaneous draining abscess. #2 lateral and medial cellulitis Operation Performed: Right knee #1 I&D of lateral abscess. #2 acquisition of cultures and Bx. #3 placement of packing Specimen/Specimens Removed: Cx's x3 swabs, Cx's x1 abscess tissue, AFB & fungus sent to micro Estimated Blood Loss: EBL {In ML}: 20 Blood Products Given: N/A Drains Used: No Drains Post-Op Condition: Good Date of Surgery/Procedure: 02/04/17 Time of Surgery/Procedure: 17:00
--- NOTE | 2017-02-05 00:31 | OP ---
PROCEDURE DATE: 02/04/2017 DATE OF SURGERY: 02/04/2017. PREOPERATIVE DIAGNOSES: Right knee: 1. Lateral extraarticular subcutaneous draining abscess. 2. Lateral and medial cellulitis. POSTOPERATIVE DIAGNOSES: Right knee: 1. Lateral extraarticular subcutaneous draining abscess. 2. Lateral and medial cellulitis. PROCEDURE: Right knee: 1. Irrigation and debridement of lateral abscess. 2. Acquisition with cultures and biopsy of abscess tissue. 3. Placement of iodoform packing. SURGEON: Mila Pineda MD. NETWORK STRATEGIST: None. ANESTHESIA: IV sedation. SPECIMENS: Culture swabs x 3 of the purulent fluid in the abscess, culture x 1 of the abscess tissue itself, AFB and fungus specimen of the abscess fluid sent to microbiology as well. ESTIMATED BLOOD LOSS: 20 mL. DRAINS: None. COMPLICATIONS: None. IMPLANTS: None. DISPOSITION: The patient was awakened from IV sedation and transferred to PACU in stable condition and tolerated the procedure well. INDICATIONS FOR SURGERY: The patient is an 81-year-old male with a past medical history significant for diabetes, hypertension, hyperlipidemia, Alzheimer's with advanced dementia, history of CVA (on Plavix) who presented to the Emergency Room at [facility] on 02/03/2017 with right knee redness, pain, drainage at the lateral aspect of the knee for almost 1 week. The patient is a very poor historian and does not interact verbally, cannot provide or confirm his history. All history was obtained from family members who were his niece and his [id number]. His , who was present, is also demented and cannot provide a good history. Family members state that he developed redness and drainage of the right knee, lateral aspect, approximately 5-7 days ago and has progressively worsened and has shown no signs of improvement. Finally, they brought him to the Emergency Room at [facility] on 2016. They denied any trauma or falls, they denied any bug bites that they are aware of, they deny any fevers, chills, headache, nausea, vomiting, chest pain, shortness of breath, numbness, tingling or calf pain. He has never shown or complained that he has any difficulty with range of motion or ambulation. He was evaluated by ER staff and, after review of imaging, was diagnosed with right knee cellulitis and a draining abscess. He was admitted to the medical service under the resident teaching service of Dr. Riley and IV antibiotics were started from the ER admission. I evaluated the patient as an inpatient on 02/03/2017 at [facility] after the orthopedic consultation was placed. The above history was confirmed with the family members available at bedside and review of documentation. The niece is the closest bloodline relative and is providing consent for all treatment during this admission. REVIEW OF IMAGING: Right knee x-rays done on 02/03/2017 at [facility] ER show no evidence of fracture or dislocation with soft tissue swelling laterally and medially. MRI of the right knee done without contrast, as the patient has an elevated creatinine, on 02/03/2017 was read as only medial-sided cellulitis and soft tissue swelling with no collection laterally or abscess. I reviewed the MRI personally with the musculoskeletal radiology and executive director global brand marketing for [facility] and they agreed that there is a 1.5 cm x 1 cm abscess at the lateral aspect of the knee that is subcutaneous with no visible extension into the knee joint that is extraarticular and they assured me that an addendum would be placed. I had a long discussion with the family explaining the treatment options. The patient does have a history of CVA as well to add to his medical history and is currently on Plavix and took his last dose on the morning of 02/03/2017. I explained to them that the best treatment is an I and D of the abscess, which can be done at the bedside, but, in the presence of Plavix onboard, I would prefer to do a formal I and D in the operating room where I have the use of electrocautery and ability to achieve good hemostasis if needed. The family understood that a more formal I and D in the operating room should present us with a better result with a more thorough I&D and can be done under sedation. I had a long discussion with the medical staff and, after their evaluation of the patient, they deemed that there was no medical contraindication to undergoing the procedure under anesthesia or sedation. If medical clearance was not obtained, we would proceed with a bedside I and D. The risks, benefits , and alternatives of procedure were discussed at length with the patient and his family with the risks including, but not limited to infection, neurovascular damage, need for further surgery, super infection, need for recurrent and repeat irrigation and debridement, development of chronic pain and disability, development of blood clots including DVT and PE, inability to return to presurgical level of activity, anesthesia reactions including , perioperative cardiopulmonary complications. After answering all of their questions, they stated that they understood the risks and wished to proceed with surgery. He was placed on the add-on schedule for the next morning during the elective OR time. This is an urgent procedure done during an admission through the ER at [facility] and the procedure is of medical necessity. PROCEDURE IN DETAIL: The patient was identified in the preoperative holding area and the right knee was marked for surgery. Once again, as described above , the risks, benefits, and alternative procedures at length with the patient's family and a telephone consent was obtained from the patient's niece, who is the closest relative as a direct bloodline and has been providing consent during this admission. The telephone consent was performed with 2 nurses witnessing and was an informed consent and a long time was spent reviewing the risks, benefits, and alternatives of procedure once again with the patient's niece. After brief discussion with anesthesia staff with the niece as well, the patient was taken to the operating room and placed on a well-padded operating room table with all bony prominences and superficial neurovascular structures well padded. A final timeout was done with the surgeon, anesthesia staff, and OR staff all in agreement with the patient, procedure being done, and extremity being operated on. IV sedation was administered without difficulty or complication. Right knee was then prepped and draped in standard sterile fashion. Tourniquet was placed high on the right knee, but never inflated. The area of the laterally based abscess measured approximately clinically 3 cm x 2 cm with a central area that was open and draining copious amounts of pus surrounded by an area of blanching erythema/cellulitis measuring 6cm x 3 cm. The abscess, after the prep and drape, was incised and decompressed and approximately 5 mL of purulent/pus fluid was obtained for cultures. A knife was then used to make a vertical incision in line with the long access of the leg approximately 3 cm in length, extending the draining wound basically 1 cm in each direction superiorly and inferiorly. Good hemostasis was achieved. A rongeur was used to obtain a deeper specimen from the abscess wall. 3000 mL of normal saline was used to copiously irrigate the abscess and tissue. A rongeur and Bovie were then used to debride all nonviable and infected tissue. Another round of 3000 mL of irrigation were used to irrigate the wound area. In terms of specimen, the purulent fluid that was removed was divided into 3 culture swabs for STAT Gram stain and cultures, one culture cup for AFB and fungus, the abscess tissue was also sent for aerobic and anaerobic Gram stain and culture, and abscess tissue was also sent to pathology. After all nonviable and infected tissue was debrided and we were left with good , bleeding, healthy tissue, 2.0 nylon unbraided suture was then used to reapproximate the superior and inferior aspects of the wound, leaving the central aspect open. Iodoform packing was then used to fill the empty space that was left behind by the abscess. Sterile dressings were then applied, as well as a layer of sterile cast padding from the toes up to the superior thigh followed by a layer of compressive Nicolas wrap from the toes up to the superior thigh and placement in a knee immobilizer. DISPOSITION: The patient was awakened from IV sedation and transferred to PACU in stable condition and tolerated the procedure well. He will remain as an inpatient until the final sensitivities and cultures and final decision by infectious disease IV antibiotics selection is carried out. His family will work with social work and case management to determine optimal placement for the patient if needed and we will also determine if long-term IV antibiotics are needed as well. We will leave those determinations to the infectious disease consult. He will be weightbearing as tolerated and ambulate with the knee immobilizer until he regains his strength. He will work with physical therapy for transfers and ambulation. He will receive adequate pain control. I will discuss with the primary medical team starting DVT prophylaxis versus just continuation of Plavix if there any contraindication of adding formal DVT prophylaxis in the form of Lovenox to his medication regimen as well. I will monitor his progress closely as an inpatient. Mila Pineda MD cc: [id number] TT: 02/05/2017 00:30:57 devi [email or web address]
--- NOTE | 2017-02-05 03:04 | CON ---
DATE: 02/04/2017 HISTORY OF PRESENT ILLNESS: The patient is an 81-year-old male with past medical history of hyperten escobar, diabetes, hyperlipidemia and dementia. Presented with right knee pain for past several days. Admitted with cellulitis and abscess adjacent to right knee joint. Limited history due to patient's dementia; however, the patient does report having this pain going on since several days. Denied taking any pain medications. Otherwise, reports that he is able to ambu late well with a cane without any shortness of breath. Denies any difficulty urinating. Denies any swelling in the legs. Reports taking medication only for his diabetes. The patient reports that he is eating well and has a good appetite. Otherwise, denies any vomiting or diarrhea. No fevers or ch ills reported either. The patient yesterday underwent MRI of right knee joint. Report mentions extensive subcutaneous soft tissue swelling, but no evidence of drainable fluid collection; just suggests an abscess. The patient was evaluated by Orthopedic service and today underwent I and D of subcutaneous abscess t hat did not involve the knee joint. PAST MEDICAL HISTORY: As mentioned above. SOCIAL HISTORY: The patient denies ever smoking. FAMILY HISTORY: Unable to obtain. REVIEW OF SYSTEMS: CONSTITUTIONAL: Reports good p.o. intake. HEENT: Denies any sore throat, difficulty swallowing. No cold-like symptoms. RESPIRATORY: Denies any shortness of breath. CARDIOVASCULAR: Denies any chest pain or palpitations. Denies any leg swelling. GASTROINTESTINAL: No vomiting, no diarrhea. No constipation. GENITOURINARY: As per HPI. MUSCULOSKELETAL: Denies any pains other than that affecting right knee. NEUROLOGIC: Reports some numbness of his feet. PSYCHIATRIC: Denies any anxiety. HEMATOLOGIC: Denies any bleeding. PHYSICAL EXAMINATION: VITAL SIGNS: This afternoon, blood pressure 154/68, heart rate 66, respirations 20, temperature 97.4 , O2 sat 96% on room air. LABORATORY DATA: This morning, CBC: WBC 9.5, hemoglobin 9.7, hematocrit 29.0. Platelets 321. Chem istry panel: Sodium 138, potassium 4.2, chloride 105, bicarb 20, BUN 32, creatinine 2.1, increased f rom baseline of 1.3 last month. Glucose 210. Hemoglobin A1c 8.2, calcium 8.5, albumin 3.6. Renal ultrasound directly observed. Right kidney with mildly increased echogenicity. Left kidney wi th normal echogenicity. No hydronephrosis on either side. ASSESSMENT AND PLAN: 1. Acute renal failure, acute kidney impairment on chronic kidney disease stage IIIA, likely prerena l etiology in the setting of patient being on the angiotensin receptor elkin valsartan and likely h aving decreased p.o. intake in the setting of knee pain. Renal function improving with IV fluids. T he patient with no signs of volume excess on exam. Recommend to continue IV fluids at 100 mL per de r, checking urine electrolytes, urine sodium, urine creatinine and urine urea. Hold diuretics. 2. Chronic kidney disease IIIA, nonproteinuric kidney disease per urinalysis done approximately a ye ar ago, at which time, the serum creatinine was 1.2, similar to the value seen last month. The patie nt likely has some degree of renovascular disease as he has risk factors for peripheral vascular dise ase of diabetes, hypertension, hyperlipidemia. Also noted to have right carotid bruit on exam. On m ax dose of high potency statin atorvastatin at home. Should continue the same. 3. Hypertension. The patient on metoprolol XL 100 mg daily, Norvasc 10 mg daily and valsartan 320 m g daily at home. Currently, blood pressure is relatively controlled with some fluctuations in readin gs. Agree with holding valsartan for now. Continue with amlodipine and metoprolol XL. 4. Subcutaneous abscess, started on vancomycin. Received second dose at about midnight last night. Random level drawn today. Appears to be therapeutic; however, infectious disease recommending that patient can be discharged on less potent antibiotics since abscess is drained. We will need to asses s degree of renal improvement before dosing antibiotics properly. For now, would dosed for creatinin e clearance of about 30 mL per minute. 5. Diabetes. The patient with somewhat elevated hemoglobin A1c; although, much improved from a year ago. Would keep aim for hemoglobin A1c of less than 8 for elderly patient in order to avoid complic ations associated with diabetes and, specifically, diabetic nephropathy. Schuyler Contreras MD cc: [id number] TT: 02/05/2017 03:03:42 Confirmation # [id number] Dictation # [id number] mn
[2017-02-05] MEDS: Sodium Chloride 0.9% 1,000 ML IV SCH ×2 (05:03→15:30)
[2017-02-05 06:28] LABS: URINE BILIRUBIN NEGATIVE (NEGATIVE); URINE BLOOD NEGATIVE (NEGATIVE); URINE COLOR Straw (YELLOW); URINE GLUCOSE (UA) NORMAL (Normal); URINE KETONE NEGATIVE (NEGATIVE); URINE LEUKOCYTE ESTERASE NEG Leu/uL (Negative); URINE PROTEIN NEGATIVE (NEGATIVE); URINE UROBILINOGEN NORMAL mg/dL (0.2-1.0); WBC URINE < 1 /hpf (0-5)
[2017-02-05 06:30] LABS: CREATININE, RANDOM URINE 26.3 mg/dL
[2017-02-05 07:34] LABS: BASO # 0.1 K/uL (0.0-0.2); BASO % 1.2 % (0.0-2.0); EOS # 0.3 K/uL (0.0-0.7); EOS % 3.4 % (0.0-4.0); HEMATOCRIT 29.7 % (35.0-51.0); LYMPH # 1.6 K/uL (1.0-4.3); LYMPH % 16.3 % (20.0-40.0); MEAN CELL VOLUME 82.1 fL (80.0-94.0); MEAN CORPUSCULAR HEMOGLOBIN 27.4 pg (27.0-31.0); MEAN CORPUSCULAR HGB CONC 33.4 g/dL (33.0-37.0); MEAN PLATELET VOLUME 8.4 fL (7.2-11.7); MONO # 0.8 K/uL (0.0-0.8); MONO % 8.1 % (0.0-10.0); RED CELL DISTRIBUTION WIDTH 14.2 % (11.5-14.5)
[2017-02-05 07:51] LABS: POTASSIUM 3.3 mmol/L (3.6-5.2)
[2017-02-05 07:54] LABS: ALB/GLOB RATIO 1.1 (1.0-2.1); BILIRUBIN,TOTAL 0.5 mg/dL (0.2-1.3); CALCIUM 8.4 mg/dl (8.6-10.4); PHOSPHOROUS 3.3 mg/dL (2.5-4.5); TOTAL PROTEIN 6.7 g/dL (6.3-8.3)
[2017-02-05 07:55] LABS: MAGNESIUM 1.7 mg/dL (1.6-2.3)
[2017-02-05] MEDS: Levothyroxine 50 MCG TAB PO SCH (07:56)
[2017-02-05] MEDS: (Novolin R) Insulin Human Regular 100 units/ml vial SC SCH ×4 (08:56→21:44)
[2017-02-05] MEDS ORDERED: Potassium Chloride 20 mEq ER Tab PO ONE ×2 (09:48→21:45)
[2017-02-05] MEDS: Metoprolol Succinate 100 mg XL Tab PO SCH (10:36)
[2017-02-05] MEDS: Saccharomyces Boulardi 250 mg Cap PO SCH ×2 (10:37→18:02)
--- NOTE | 2017-02-05 10:52 | US ---
PROCEDURE: Ultrasound of the Kidneys HISTORY: Acute renal failure, r/o hydronephrosis COMPARISON: Ultrasound abdomen 05/03/2016. TECHNIQUE: Sonogram of the kidneys. FINDINGS: RIGHT KIDNEY: Measures: 8.3 cm. Unremarkable in echogenicity. No shadowing renal stone, cyst, or hydronephrosis is identified. LEFT KIDNEY: Measures: 9.8 cm. Unremarkable in echogenicity. No shadowing renal stone, cyst, or hydronephrosis is identified. OTHER FINDINGS: Visualized portions of the aorta are normal in caliber. Visualized portions of the urinary bladder are unremarkable IMPRESSION: Unremarkable renal sonogram.
--- NOTE | 2017-02-05 11:04 | CP.PCM.PN ---
<Rober Cervantes - Last Filed: 02/05/17 14:27> Subjective - Date & Time of Evaluation Date of Evaluation: 02/05/17 Time of Evaluation: 11:00 - Subjective Subjective: Med progress note. Attending: Dr. Menchaca Pt seen and examined at bedside. No acute distress. No events overnight. Pt is s /p irrigation and debridement of lateral abscess right knee. He reports some pain in right knee, but no other complaints. Objective - Vital Signs/Intake and Output Vital Signs (last 24 hours): Temp Pulse Resp BP Pulse Ox 98.1 F 84 20 132/64 97 02/05/17 08:00 02/05/17 10:39 02/05/17 10:39 02/05/17 10:39 02/05/17 10:39 Intake and Output: 02/05/17 02/05/17 06:59 18:59 Intake Total 640 Balance 640 - Medications Medications: Current Medications Acetaminophen (Tylenol 325mg Tab) 650 mg PO Q6 PRN PRN Reason: Fever >100.4 F Amlodipine Besylate (Norvasc) 10 mg PO DAILY [facility] Last Admin: 02/05/17 10:37 Dose: 10 mg Famotidine (Pepcid) 20 mg IVP DAILY [facility] Last Admin: 02/04/17 09:25 Dose: 20 mg Furosemide (Lasix) 20 mg PO DAILY [facility] Last Admin: 02/04/17 16:16 Dose: 20 mg Heparin Sodium (Porcine) (Heparin) 5,000 units SC Q12 [facility] Last Admin: 02/05/17 10:36 Dose: 5,000 units Sodium Chloride (Sodium Chloride 0.9%) 1,000 mls @ 100 mls/hr IV .Q10H [facility] Last Admin: 02/05/17 05:03 Dose: Not Given Vancomycin/Sodium Chloride (Vancocin) 1 gm in 200 mls @ 133 mls/hr IVPB Q12H [facility] Stop: 02/09/17 01:01 Last Admin: 02/04/17 00:36 Dose: 133 mls/hr Insulin Human Regular (Novolin R) 0 unit SC ACHS [facility] PRN Reason: Protocol Last Admin: 02/05/17 08:56 Dose: 1 unit Levothyroxine Sodium (Synthroid) 50 mcg PO DAILY@0630 [facility] Last Admin: 02/05/17 07:56 Dose: 50 mcg Metoprolol Succinate (Toprol Xl) 100 mg PO DAILY [facility] Last Admin: 02/05/17 10:36 Dose: 100 mg Rosuvastatin Calcium (Crestor) 5 mg PO HS [facility] Last Admin: 02/04/17 22:59 Dose: 5 mg Saccharomyces Boulardii (Florastor) 250 mg PO BID [facility] Last Admin: 02/05/17 10:37 Dose: 250 mg - Labs Labs: 02/05/17 07:22 02/05/17 07:22 PT 12.3 SECONDS (9.7-12.2) H 02/04/17 03:19 INR 1.1 02/04/17 03:19 APTT 29 SECONDS (21-34) 02/04/17 03:19 - Constitutional Appears: Non-toxic, No Acute Distress - Head Exam Head Exam: ATRAUMATIC, NORMAL INSPECTION, NORMOCEPHALIC - Eye Exam Eye Exam: EOMI - ENT Exam ENT Exam: Mucous Membranes Moist - Neck Exam Neck Exam: Full ROM, Normal Inspection - Respiratory Exam Respiratory Exam: NORMAL BREATHING PATTERN. absent: Respiratory Distress - Cardiovascular Exam Cardiovascular Exam: +S1, +S2 - GI/Abdominal Exam GI & Abdominal Exam: Soft, Normal Bowel Sounds. absent: Tenderness - Extremities Exam Extremities Exam: absent: Full ROM, Normal Inspection Additional comments: Immobilizer- right knee - Neurological Exam Neurological Exam: Alert, Awake - Psychiatric Exam Psychiatric exam: Flat Affect - Skin Additional comments: Scrotal lesions- non fluctuant, no drainage or pus, no erythema Assessment and Plan - Assessment and Plan (Free Text) Assessment: This is an 81 yo male with past medical hx of HTN, HLD, DM, CVA presenting with painful, erythematous right knee 1. Right knee abscess -pt is s/p irrigation and debridement of abscess lateral right knee -will restart vancomycin 1 mg IVPB q 12 hrs. -ID consult. Dr. Langford. recs appreciated. -will add florastor 250 bid -ortho consult. recs appreciated. -NS 100>>> will continue due to prerenal kidney injury -blood and wound cultures pending >>> 02/03 blood cultures negative x 24 hrs. wound culture positive for MRSA. 02/04 wound and tissue cultures pending -MRI shows extensive swelling compatible with cellulitis. no evidence of abscess (please see full report) -right knee x ray negative -PT/OT eval -pt s/p irrigation and debridement of right knee with iodoform packing 2. Testicular lesions -testicular us shows small area heterogeneous echotexture lower pole of left testicle, no evidence of epididymo-orchitis, right testicular cyst, inflammatory changes, no abscess -wound care. -continue to monitor -urology consult. Dr. Leal. recs appreciated. -urology believes it is primarily a dermatologic matter 2. Hyperkalemia -kayexalate given in er, will continue to monitor -pt is hypokalemic today and will replete 3. Hx of HTN -continue to monitor -will restart home norvasc 10 daily PO -continue metoprolol succinate 100 mg po daily 4. Hx of HLD -continue to monitor -will restart home lipitor>> changed to crestor 5 mg PO HS 5. hx of DM -nephrology consult. recs appreciated. -iss low dose novolin 6. Acute on chronic kidney disease -likely stage III A -nephrology consult. Dr. Contreras. recs appreciated -urine electrolytes ordered -continue NS 100 cc/hr 7. hx of CVA -continue to monitor -asa 81 mg po daily and plavix 75 mg po daily, held for sx. 8 GI/DVT ppx -pepcid 20 mg IV daily -scds discussed with Dr. Menchaca <Gladys Menchaca V - Last Filed: 02/05/17 21:14> Objective - Vital Signs/Intake and Output Vital Signs (last 24 hours): Temp Pulse Resp BP Pulse Ox 98.1 F 65 20 148/66 96 02/05/17 15:44 02/05/17 15:44 02/05/17 15:44 02/05/17 15:44 02/05/17 15:44 - Medications Medications: Current Medications Acetaminophen (Tylenol 325mg Tab) 650 mg PO Q6 PRN PRN Reason: Fever >100.4 F Amlodipine Besylate (Norvasc) 10 mg PO DAILY [facility] Last Admin: 02/05/17 10:37 Dose: 10 mg Famotidine (Pepcid) 20 mg IVP DAILY [facility] Last Admin: 02/05/17 10:37 Dose: 20 mg Furosemide (Lasix) 20 mg PO DAILY [facility] Last Admin: 02/04/17 16:16 Dose: 20 mg Heparin Sodium (Porcine) (Heparin) 5,000 units SC Q12 [facility] Last Admin: 02/05/17 10:36 Dose: 5,000 units Sodium Chloride (Sodium Chloride 0.9%) 1,000 mls @ 100 mls/hr IV .Q10H [facility] Last Admin: 02/05/17 15:30 Dose: 100 mls/hr Vancomycin HCl 1,000 mg/ (Sodium Chloride) 250 mls @ 166.6 mls/hr IVPB Q12H [facility] Insulin Human Regular (Novolin R) 0 unit SC ACHS [facility] PRN Reason: Protocol Last Admin: 02/05/17 18:02 Dose: 2 unit Levothyroxine Sodium (Synthroid) 50 mcg PO DAILY@0630 [facility] Last Admin: 02/05/17 07:56 Dose: 50 mcg Metoprolol Succinate (Toprol Xl) 100 mg PO DAILY [facility] Potassium Chloride (K-Dur 20 Meq Er Tab) 20 meq PO ONCE ONE Stop: 02/06/17 21:06 Rosuvastatin Calcium (Crestor) 5 mg PO HS [facility] Last Admin: 02/04/17 22:59 Dose: 5 mg Saccharomyces Boulardii (Florastor) 250 mg PO BID [facility] Last Admin: 02/05/17 18:02 Dose: 250 mg - Labs Labs: PT 12.3 SECONDS (9.7-12.2) H 02/04/17 03:19 INR 1.1 02/04/17 03:19 APTT 29 SECONDS (21-34) 02/04/17 03:19 Attending/Attestation - Attestation I have personally seen and examined this patient.: Yes I have fully participated in the care of the patient.: Yes I have reviewed all pertinent clinical information, including history, physical exam and plan: Yes Notes (Text): Patient seen, examined, and case discussed with day-time resident. Patient seen during rounds this morning. Patient had dressing change recently completed by ortho prior to my arrival. Patient's right knee wrapped in aakash- bandage and placed in knee immobilizer. Patient denies other acute complaints at bedside. Patient's Cr improving while on IV antibiotics. Patient's Vancomycin resumed to cover for MRSA. Patient is currently on contact. Awaiting knee cultures for speciation. Infectious disease following discussed to continue Vancomycin Assessment/Plan 1. Right Knee Pain; Cellulitis and Abscess R/o osteomyelitis vs. septic arthritis * POD#1: s/p ID abscess; cellulitis * Continued Vancomycin 1gram IV Q12 hours; patient received morning dose; pending vanocmycin trough * ID consult. Dr. Langford. recs appreciated. * start florastor 250 bid * Ortho (Dr. Segura) on the case consult. recs appreciated. * NS 100cc/hr * Wound culture: MRSA prior OR; post-OR: Staph aureus in knee cultures * MRI shows extensive swelling compatible with cellulitis. no evidence of abscess (please see full report)-->to be addendum--> 1.5 cm x 1 cm abscess at the lateral aspect of the knee that is subcutaneous with no visible extension to the knee joint and is in fact extra-articular (discussed between radiology and orthopedic) * right knee x ray negative * PT/OT eval * Preoperative note: Right knee #1 lateral extra-articular subcutaneous draining abscess. #2 lateral and medial cellulitis. Operation Performed: Right knee #1 I&D of lateral abscess. #2 acquisition of cultures and Bx. #3 placement of packing. Specimen/Specimens Removed: Cx's x3 swabs, Cx's x1 abscess tissue, AFB & fungus sent to micro 2. Testicular lesions * testicular us shows small area heterogeneous echotexture lower pole of left testicle, no evidence of epididymo-orchitis, right testicular cyst, inflammatory changes, no abscess * continue to monitor * urology consult. Dr. Leal. recs appreciated-->no lesion noted on his exam, recommended for either dermatology or outpatient follow-up 3. Hyperkalemia * kayexalate given in er, will continue to monitor * Normalized today 4. Hx of HTN * Norvasc 10mg PO daily * Toproxl XL 100mg PO daily * monitor vitals 5. Hx of HLD * continue to monitor * will restart home lipitor>> changed to crestor 5 mg PO HS 6. Acute on Chronic Renal insufficiency * on IV fluids * Nephrology (Dr. Bates) on board-->help appreciated * insulin sliding scale subq 7. hx of CVA * asa 81 mg po daily and plavix 75 mg po daily, held for sx. * Will follow-up with surgery to determine when to restart * Blood pressure control 8. GI/DVT ppx * Pepcid 20mg IV daily * scds b/l
[2017-02-05] MEDS: Vancomycin 1 gm/NS 200 ml 1 GM/200 ML BAG IVPB SCH (13:58)
--- NOTE | 2017-02-05 14:15 | CP.PCM.PN ---
Subjective - Date & Time of Evaluation Date of Evaluation: 02/05/17 Time of Evaluation: 08:15 - Subjective Subjective: Patient complaining of knee pain. Denies numbness/tingling, CP/SOB Objective - Vital Signs/Intake and Output Vital Signs (last 24 hours): Temp Pulse Resp BP Pulse Ox 98.1 F 84 20 132/64 97 02/05/17 08:00 02/05/17 10:39 02/05/17 10:39 02/05/17 10:39 02/05/17 10:39 Intake and Output: 02/05/17 02/05/17 06:59 18:59 Intake Total 640 Balance 640 - Medications Medications: Current Medications Acetaminophen (Tylenol 325mg Tab) 650 mg PO Q6 PRN PRN Reason: Fever >100.4 F Amlodipine Besylate (Norvasc) 10 mg PO DAILY [facility] Last Admin: 02/05/17 10:37 Dose: 10 mg Famotidine (Pepcid) 20 mg IVP DAILY [facility] Last Admin: 02/04/17 09:25 Dose: 20 mg Furosemide (Lasix) 20 mg PO DAILY [facility] Last Admin: 02/04/17 16:16 Dose: 20 mg Heparin Sodium (Porcine) (Heparin) 5,000 units SC Q12 [facility] Last Admin: 02/05/17 10:36 Dose: 5,000 units Sodium Chloride (Sodium Chloride 0.9%) 1,000 mls @ 100 mls/hr IV .Q10H [facility] Last Admin: 02/05/17 05:03 Dose: Not Given Vancomycin/Sodium Chloride (Vancocin) 1 gm in 200 mls @ 133 mls/hr IVPB Q12H [facility] Stop: 02/09/17 01:01 Last Admin: 02/04/17 00:36 Dose: 133 mls/hr Insulin Human Regular (Novolin R) 0 unit SC ACHS [facility] PRN Reason: Protocol Last Admin: 02/05/17 08:56 Dose: 1 unit Levothyroxine Sodium (Synthroid) 50 mcg PO DAILY@0630 [facility] Last Admin: 02/05/17 07:56 Dose: 50 mcg Metoprolol Succinate (Toprol Xl) 100 mg PO DAILY [facility] Last Admin: 02/05/17 10:36 Dose: 100 mg Rosuvastatin Calcium (Crestor) 5 mg PO HS [facility] Last Admin: 02/04/17 22:59 Dose: 5 mg Saccharomyces Boulardii (Florastor) 250 mg PO BID [facility] Last Admin: 02/05/17 10:37 Dose: 250 mg - Labs Labs: 02/05/17 07:22 02/05/17 07:22 PT 12.3 SECONDS (9.7-12.2) H 02/04/17 03:19 INR 1.1 02/04/17 03:19 APTT 29 SECONDS (21-34) 02/04/17 03:19 - Extremities Exam Additional comments: RLE: packing removed. Not able to express any drainage from wound. Cellulitis and erythema continues to improve medially and laterally. Still no joint effusion or erythema circ to knee joint. Mild pain with knee ROM but due to surgery. Sensation intact +ROM ankle/toes. betadyne dressing applied, aakash, knee immob. Calves soft NT neg homans Assessment and Plan (1) Cellulitis and abscess of right leg Assessment & Plan: POD#1 s/p right leg I&D ER cx +MRSA packing removed daily dressing changes knee immob for rest at this time, PT WBAT in brace d/w lazara Jack with above Status: Acute
--- NOTE | 2017-02-05 18:10 | CP.PCM.PN ---
Subjective - Date & Time of Evaluation Date of Evaluation: 02/05/17 Time of Evaluation: 09:00 - Subjective Subjective: multiple cultures + MRSA wound dry cellulitis improving Objective - Vital Signs/Intake and Output Vital Signs (last 24 hours): Temp Pulse Resp BP Pulse Ox 98.1 F 65 20 148/66 96 02/05/17 15:44 02/05/17 15:44 02/05/17 15:44 02/05/17 15:44 02/05/17 15:44 - Medications Medications: Current Medications Acetaminophen (Tylenol 325mg Tab) 650 mg PO Q6 PRN PRN Reason: Fever >100.4 F Amlodipine Besylate (Norvasc) 10 mg PO DAILY [facility] Last Admin: 02/05/17 10:37 Dose: 10 mg Famotidine (Pepcid) 20 mg IVP DAILY [facility] Last Admin: 02/05/17 10:37 Dose: 20 mg Furosemide (Lasix) 20 mg PO DAILY [facility] Last Admin: 02/04/17 16:16 Dose: 20 mg Heparin Sodium (Porcine) (Heparin) 5,000 units SC Q12 [facility] Last Admin: 02/05/17 10:36 Dose: 5,000 units Sodium Chloride (Sodium Chloride 0.9%) 1,000 mls @ 100 mls/hr IV .Q10H [facility] Last Admin: 02/05/17 15:30 Dose: 100 mls/hr Vancomycin/Sodium Chloride (Vancocin) 1 gm in 200 mls @ 133 mls/hr IVPB Q12H [facility] Stop: 02/09/17 01:01 Last Admin: 02/05/17 13:58 Dose: 133 mls/hr Insulin Human Regular (Novolin R) 0 unit SC ACHS [facility] PRN Reason: Protocol Last Admin: 02/05/17 18:02 Dose: 2 unit Levothyroxine Sodium (Synthroid) 50 mcg PO DAILY@0630 [facility] Last Admin: 02/05/17 07:56 Dose: 50 mcg Metoprolol Succinate (Toprol Xl) 100 mg PO DAILY [facility] Last Admin: 02/05/17 10:36 Dose: 100 mg Rosuvastatin Calcium (Crestor) 5 mg PO HS [facility] Last Admin: 02/04/17 22:59 Dose: 5 mg Saccharomyces Boulardii (Florastor) 250 mg PO BID [facility] Last Admin: 05/25/17 18:02 Dose: 250 mg - Labs Labs: PT 12.3 SECONDS (9.7-12.2) H 02/04/17 03:19 INR 1.1 02/04/17 03:19 APTT 29 SECONDS (21-34) 02/04/17 03:19 - Constitutional Appears: Non-toxic, Cachectic, Chronically Ill - Head Exam Head Exam: NORMOCEPHALIC - Eye Exam Eye Exam: PERRL. absent: Scleral icterus - ENT Exam ENT Exam: Mucous Membranes Dry, Normal External Ear Exam - Neck Exam Neck Exam: absent: Lymphadenopathy - Respiratory Exam Respiratory Exam: Decreased Breath Sounds - Cardiovascular Exam Cardiovascular Exam: REGULAR RHYTHM, +S1, +S2 - GI/Abdominal Exam GI & Abdominal Exam: Distended, Soft - Exam Exam: NORMAL INSPECTION - Extremities Exam Extremities Exam: absent: Calf Tenderness - Back Exam Back Exam: paraspinal tenderness. absent: CVA tenderness (L), CVA tenderness (R ) - Neurological Exam Neurological Exam: Alert, Awake, Oriented x3 - Psychiatric Exam Psychiatric exam: Normal Mood - Skin Skin Exam: Dry Assessment and Plan (1) MRSA (methicillin resistant Staphylococcus aureus) infection Status: Acute (2) MRSA (methicillin resistant Staphylococcus aureus) infection Status: Acute - Assessment and Plan (Free Text) Assessment: cont iv vanco for now
[2017-02-06] MEDS: Sodium Chloride 0.9% 1,000 ML IV SCH ×2 (00:45→23:27)
[2017-02-06] MEDS ORDERED: Vancomycin 1 gm/NS 200 ml 1 GM/200 ML BAG IVPB SCH (02:30)
[2017-02-06] MEDS: Levothyroxine 50 MCG TAB PO SCH (05:53)
[2017-02-06 06:57] LABS: BASO # 0.1 K/uL (0.0-0.2); BASO % 1.3 % (0.0-2.0); EOS # 0.5 K/uL (0.0-0.7); EOS % 6.1 % (0.0-4.0); HEMATOCRIT 28.5 % (35.0-51.0); LYMPH # 2.5 K/uL (1.0-4.3); LYMPH % 28.8 % (20.0-40.0); MEAN CELL VOLUME 82.3 fL (80.0-94.0); MEAN CORPUSCULAR HEMOGLOBIN 27.8 pg (27.0-31.0); MEAN CORPUSCULAR HGB CONC 33.8 g/dL (33.0-37.0); MEAN PLATELET VOLUME 8.5 fL (7.2-11.7); MONO # 0.8 K/uL (0.0-0.8); MONO % 8.9 % (0.0-10.0); RED CELL DISTRIBUTION WIDTH 14.2 % (11.5-14.5); WHITE BLOOD COUNT 8.5 K/uL (4.8-10.8)
[2017-02-06 07:22] LABS: POTASSIUM 4.1 mmol/L (3.6-5.2)
[2017-02-06 07:24] LABS: ALB/GLOB RATIO 1.1 (1.0-2.1); BILIRUBIN,TOTAL 0.4 mg/dL (0.2-1.3); PHOSPHOROUS 2.5 mg/dL (2.5-4.5); TOTAL PROTEIN 6.2 g/dL (6.3-8.3)
[2017-02-06 07:25] LABS: CALCIUM 8.3 mg/dl (8.6-10.4); MAGNESIUM 1.6 mg/dL (1.6-2.3)
--- NOTE | 2017-02-06 07:57 | CP.PCM.PN ---
<Wily Valdez - Last Filed: 02/06/17 10:58> Subjective - Date & Time of Evaluation Date of Evaluation: 02/06/17 Time of Evaluation: 10:58 - Subjective Subjective: Patient complaining of pain in his knee. Objective - Vital Signs/Intake and Output Vital Signs (last 24 hours): Temp Pulse Resp BP Pulse Ox 98 F 65 20 149/70 95 02/05/17 23:43 02/05/17 23:43 02/05/17 23:43 02/05/17 23:43 02/05/17 23:43 Intake and Output: 02/06/17 02/06/17 06:59 18:59 Intake Total 800 Balance 800 - Medications Medications: Current Medications Acetaminophen (Tylenol 325mg Tab) 650 mg PO Q6 PRN PRN Reason: Fever >100.4 F Amlodipine Besylate (Norvasc) 10 mg PO DAILY [facility] Last Admin: 02/05/17 10:37 Dose: 10 mg Famotidine (Pepcid) 20 mg IVP DAILY [facility] Last Admin: 02/05/17 10:37 Dose: 20 mg Furosemide (Lasix) 20 mg PO DAILY [facility] Last Admin: 02/04/17 16:16 Dose: 20 mg Heparin Sodium (Porcine) (Heparin) 5,000 units SC Q12 [facility] Last Admin: 02/05/17 21:35 Dose: 5,000 units Sodium Chloride (Sodium Chloride 0.9%) 1,000 mls @ 100 mls/hr IV .Q10H [facility] Last Admin: 02/06/17 00:45 Dose: 100 mls/hr Vancomycin/Sodium Chloride (Vancocin) 1 gm in 200 mls @ 133 mls/hr IVPB Q12H [facility] Stop: 02/11/17 02:31 Last Admin: 02/06/17 04:10 Dose: Not Given Insulin Human Regular (Novolin R) 0 unit SC ACHS [facility] PRN Reason: Protocol Last Admin: 02/05/17 21:44 Dose: Not Given Levothyroxine Sodium (Synthroid) 50 mcg PO DAILY@0630 [facility] Last Admin: 02/06/17 05:53 Dose: 50 mcg Metoprolol Succinate (Toprol Xl) 100 mg PO DAILY [facility] Rosuvastatin Calcium (Crestor) 5 mg PO HS [facility] Last Admin: 02/05/17 21:35 Dose: 5 mg Saccharomyces Boulardii (Florastor) 250 mg PO BID [facility] Last Admin: 02/05/17 18:02 Dose: 250 mg - Labs Labs: 02/06/17 06:50 02/06/17 06:50 PT 12.3 SECONDS (9.7-12.2) H 02/04/17 03:19 INR 1.1 02/04/17 03:19 APTT 29 SECONDS (21-34) 02/04/17 03:19 - Extremities Exam Additional comments: Right knee: I&D site improving, not able to express any pus. minimal drainage. surrounding erythema and cellulitis markedly improved. Patient more willing to flex knee today, Easily flexes to 90 degrees then complains of pain. No joint effusion or increased swellling to suggest extension into joint. +DP pulse, sensation intact +ROM ankle/toes. Assessment and Plan (1) Cellulitis and abscess of right leg Assessment & Plan: POD#2 s/p right leg abscess I&D -improving -daily dressing changes ordered -continue antibiotics as per ID -d/w Dr. Fernandez, agrees with above -f/u in office within 1 week call for appointment -WBAT in knee immobilizer at this time, PT ordered Status: Acute <Mila Gaines S - Last Filed: 02/14/17 00:53> Subjective - Subjective Subjective: Pt seen and examined. Agree with PA assessment and plan. wound shows no evidence of re-accumulation of collection and cellulites improved , no indication for repeat I&D continue with ID recs/ IV abx f/u on final Cx sensitivities and growth/organism DVT proph if not contraindicated in the setting of Plavix, to be determined by primary team OOB as much as possible Physical Therapy= WBAT, no restrictions, use knee immobilizer until pt is safe for ambulation/transfers w/o it, work on ambulation/transfers/strength/stretch/ ROM D/C planning Objective - Vital Signs/Intake and Output Vital Signs (last 24 hours): Temp Pulse Resp BP Pulse Ox 98.2 F 63 20 146/68 97 02/13/17 15:22 02/13/17 15:22 02/13/17 15:22 02/13/17 15:22 02/13/17 15:22 Intake and Output: 02/13/17 02/14/17 18:59 06:59 Intake Total 1150 Output Total 900 Balance 250 - Labs Labs: 02/13/17 07:11 02/13/17 07:11 PT 12.3 SECONDS (9.7-12.2) H 02/04/17 03:19 INR 1.1 02/04/17 03:19 APTT 29 SECONDS (21-34) 02/04/17 03:19 Assessment and Plan (1) Cellulitis and abscess of right leg Status: Acute
[2017-02-06] MEDS: Metoprolol Succinate 100 mg XL Tab PO SCH (09:32)
[2017-02-06] MEDS: Saccharomyces Boulardi 250 mg Cap PO SCH ×2 (09:32→18:20)
[2017-02-06] MEDS: (Novolin R) Insulin Human Regular 100 units/ml vial SC SCH ×4 (09:32→21:54)
--- NOTE | 2017-02-06 11:14 | PN ---
DATE: 02/05/2017 An 81-year-old male with past medical history of hypertension, diabetes, hyperlipidemia, dementia, ad mitted with right knee cellulitis and adjacent subcutaneous abscess. The patient reports feeling well. Denies any shortness of breath. Pain is improved. VITAL SIGNS: This afternoon, blood pressure 148/66, heart rate 65, respirations 20, temperature 98.1 , O2 sat 96% on room air. LABORATORY DATA: CBC: WBC 10.0, hemoglobin of 9.9, hematocrit 29.7, platelets 325. Chemistry panel : Sodium 140, potassium 3.3, bicarbonate 23, chloride 106, BUN 22, creatinine 1.6, improved from 2.1 yesterday, glucose 145, calcium 8.4, albumin 3.5. Urine electrolytes, urine sodium 138, urine creat inine 26.3, urine protein 21.0. Hemoglobin A1c 8.2%. ASSESSMENT: 1. Acute renal failure, acute kidney injury on chronic kidney disease stage IIIA, consistent with pr erenal etiology in the setting of patient being on ARB and likely having decreased p.o. intake. Kizzy l function improving with IV fluids over the last 2 days. The patient appears euvolemic on exam. Re commend to continue IV fluids with normal saline at 100 mL per hour. Continue to hold diuretics. 2. Chronic kidney disease, stage IIIA. Urinalysis showing negative protein; however, increased urin e protein to creatinine ratio of almost 1 gram per gram consistent with non-albumin proteinuria, whic h can be seen in tubular dysfunction. Can also be seen with conditions such as multiple myeloma. Re commend to repeat urine protein to creatinine ratio once renal function has stabilized as an outpatie nt. 3. Hypertension. The patient is currently on amlodipine 10 mg daily and metoprolol XL 100 mg daily. Blood pressure fluctuating, but relatively controlled. Continue to hold ARB for now, continue Norv asc and metoprolol for now. 4. Subcutaneous abscess on IV vancomycin for cultures positive for methicillin-resistant Staphylococ cus aureus, third vancomycin dose due later on tonight. We will obtain vancomycin level prior to thi rd dose in order to avoid vancomycin toxicity. 5. Diabetes. Hemoglobin A1c somewhat elevated, although overall much improved. Recommend to keep he moglobin A1c less than 8 for elderly patient in order to avoid complications associated with diabetes and microvascular changes. Schuyler Contreras MD cc: [id number] TT: 02/05/2017 20:16:13 Confirmation # [id number] Dictation # [id number] rn
--- NOTE | 2017-02-06 14:30 | CP.PCM.PN ---
Subjective - Date & Time of Evaluation Date of Evaluation: 02/06/17 Time of Evaluation: 08:00 - Subjective Subjective: discussed on rounds with Dr Metzger iv rx in progress Objective - Vital Signs/Intake and Output Vital Signs (last 24 hours): Temp Pulse Resp BP Pulse Ox 97.9 F 66 20 142/65 97 02/06/17 08:03 02/06/17 09:34 02/06/17 08:03 02/06/17 09:34 02/06/17 08:03 Intake and Output: 02/06/17 02/06/17 06:59 18:59 Intake Total 800 Balance 800 - Medications Medications: Current Medications Acetaminophen (Tylenol 325mg Tab) 650 mg PO Q6 PRN PRN Reason: Fever >100.4 F Amlodipine Besylate (Norvasc) 10 mg PO DAILY [facility] Last Admin: 02/06/17 09:32 Dose: 10 mg Famotidine (Pepcid) 20 mg IVP DAILY [facility] Last Admin: 02/06/17 09:32 Dose: 20 mg Furosemide (Lasix) 20 mg PO DAILY [facility] Last Admin: 02/04/17 16:16 Dose: 20 mg Heparin Sodium (Porcine) (Heparin) 5,000 units SC Q12 [facility] Last Admin: 02/06/17 09:32 Dose: 5,000 units Sodium Chloride (Sodium Chloride 0.9%) 1,000 mls @ 100 mls/hr IV .Q10H [facility] Last Admin: 02/06/17 00:45 Dose: 100 mls/hr Vancomycin HCl 1 gm/ Sodium (Chloride) 250 mls @ 166.7 mls/hr IVPB Q24H [facility] Insulin Human Regular (Novolin R) 0 unit SC ACHS [facility] PRN Reason: Protocol Last Admin: 02/06/17 12:17 Dose: 4 unit Levothyroxine Sodium (Synthroid) 50 mcg PO DAILY@0630 [facility] Last Admin: 02/06/17 05:53 Dose: 50 mcg Metoprolol Succinate (Toprol Xl) 100 mg PO DAILY [facility] Last Admin: 02/06/17 09:32 Dose: 100 mg Rosuvastatin Calcium (Crestor) 5 mg PO HS [facility] Last Admin: 02/05/17 21:35 Dose: 5 mg Saccharomyces Boulardii (Florastor) 250 mg PO BID [facility] Last Admin: 02/06/17 09:32 Dose: 250 mg - Labs Labs: 02/06/17 06:50 02/06/17 06:50 PT 12.3 SECONDS (9.7-12.2) H 02/04/17 03:19 INR 1.1 02/04/17 03:19 APTT 29 SECONDS (21-34) 02/04/17 03:19 - Constitutional Appears: Non-toxic, Chronically Ill - Head Exam Head Exam: NORMOCEPHALIC - Eye Exam Eye Exam: PERRL. absent: Scleral icterus - ENT Exam ENT Exam: Mucous Membranes Dry - Neck Exam Neck Exam: absent: Lymphadenopathy - Respiratory Exam Respiratory Exam: Decreased Breath Sounds, Rhonchi - Cardiovascular Exam Cardiovascular Exam: REGULAR RHYTHM, +S1, +S2 - GI/Abdominal Exam GI & Abdominal Exam: Distended, Soft. absent: Tenderness Assessment and Plan (1) MRSA (methicillin resistant Staphylococcus aureus) infection Status: Acute (2) MRSA (methicillin resistant Staphylococcus aureus) infection Status: Acute
--- NOTE | 2017-02-06 14:32 | CP.PCM.PN ---
<Charla Metzger - Last Filed: 02/06/17 14:29> Subjective - Date & Time of Evaluation Date of Evaluation: 02/06/17 Time of Evaluation: 08:10 - Subjective Subjective: Patient was seen and examined at bedside. No acute distress. No events overnight. Pt is s/p irrigation and debridement of lateral abscess right knee POD #2. Cultures grew out MRSA. He reports some pain in right knee, but no other complaints such as headaches, changes in vision, fevers/chills, SOB, chest pain, abd pain, urinary complaints. He is tolerating his diet and have regular BM. Objective - Vital Signs/Intake and Output Vital Signs (last 24 hours): Temp Pulse Resp BP Pulse Ox 97.9 F 66 20 142/65 97 02/06/17 08:03 02/06/17 09:34 02/06/17 08:03 02/06/17 09:34 02/06/17 08:03 Intake and Output: 02/06/17 02/06/17 06:59 18:59 Intake Total 800 Balance 800 - Medications Medications: Current Medications Acetaminophen (Tylenol 325mg Tab) 650 mg PO Q6 PRN PRN Reason: Fever >100.4 F Amlodipine Besylate (Norvasc) 10 mg PO DAILY [facility] Last Admin: 02/06/17 09:32 Dose: 10 mg Famotidine (Pepcid) 20 mg IVP DAILY [facility] Last Admin: 02/06/17 09:32 Dose: 20 mg Furosemide (Lasix) 20 mg PO DAILY [facility] Last Admin: 02/04/17 16:16 Dose: 20 mg Heparin Sodium (Porcine) (Heparin) 5,000 units SC Q12 [facility] Last Admin: 02/06/17 09:32 Dose: 5,000 units Sodium Chloride (Sodium Chloride 0.9%) 1,000 mls @ 100 mls/hr IV .Q10H [facility] Last Admin: 02/06/17 00:45 Dose: 100 mls/hr Vancomycin HCl 1 gm/ Sodium (Chloride) 250 mls @ 166.7 mls/hr IVPB Q24H [facility] Insulin Human Regular (Novolin R) 0 unit SC ACHS [facility] PRN Reason: Protocol Last Admin: 02/06/17 12:17 Dose: 4 unit Levothyroxine Sodium (Synthroid) 50 mcg PO DAILY@0630 [facility] Last Admin: 02/06/17 05:53 Dose: 50 mcg Metoprolol Succinate (Toprol Xl) 100 mg PO DAILY [facility] Last Admin: 02/06/17 09:32 Dose: 100 mg Rosuvastatin Calcium (Crestor) 5 mg PO HS [facility] Last Admin: 02/05/17 21:35 Dose: 5 mg Saccharomyces Boulardii (Florastor) 250 mg PO BID [facility] Last Admin: 02/06/17 09:32 Dose: 250 mg - Labs Labs: 02/06/17 06:50 02/06/17 06:50 PT 12.3 SECONDS (9.7-12.2) H 02/04/17 03:19 INR 1.1 02/04/17 03:19 APTT 29 SECONDS (21-34) 02/04/17 03:19 - Constitutional Appears: Non-toxic, No Acute Distress - Head Exam Head Exam: ATRAUMATIC, NORMAL INSPECTION - Eye Exam Eye Exam: EOMI - ENT Exam ENT Exam: Mucous Membranes Moist - Respiratory Exam Respiratory Exam: Clear to Ausculation Bilateral, NORMAL BREATHING PATTERN. absent: Accessory Muscle Use, Rales, Rhonchi, Wheezes, Respiratory Distress - Cardiovascular Exam Cardiovascular Exam: REGULAR RHYTHM, +S1, +S2 - GI/Abdominal Exam GI & Abdominal Exam: Soft, Normal Bowel Sounds. absent: Distended, Firm, Guarding, Tenderness - Extremities Exam Additional comments: I&D site improving, not able to express any pus. minimal drainage. surrounding erythema and cellulitis markedly improved. +DP pulse, sensation intact +ROM ankle/toes. - Back Exam Back Exam: NORMAL INSPECTION - Neurological Exam Neurological Exam: Alert, Awake, Oriented x3 - Psychiatric Exam Psychiatric exam: Normal Affect, Normal Mood - Skin Skin Exam: Dry, Intact, Normal Color, Warm Assessment and Plan - Assessment and Plan (Free Text) Assessment: 1. Right Knee Pain; Cellulitis and Abscess R/o osteomyelitis vs. septic arthritis * POD#2: s/p ID abscess; cellulitis * Continued Vancomycin 1gram IV Q24 hours; switched on 11/09 from Q12 to Q24 hours vanc trough 18.9 * ID consult. Dr. Langford. recs appreciated - Needs IV Van for 7 days (patient can receive in rehab if placed) * start florastor 250 bid * Ortho (Dr. Segura) on the case consult. recs appreciated. * * NS 100cc/hr * Wound culture: MRSA prior OR; post-OR02/04: MRSA+ (sensitive to vanc) * MRI shows extensive swelling compatible with cellulitis. no evidence of abscess (please see full report)-->to be addendum--> 1.5 cm x 1 cm abscess at the lateral aspect of the knee that is subcutaneous with no visible extension to the knee joint and is in fact extra-articular (discussed between radiology and orthopedic) * right knee x ray negative * PT/OT eval * Preoperative note: Right knee #1 lateral extra-articular subcutaneous draining abscess. #2 lateral and medial cellulitis. Operation Performed: Right knee #1 I&D of lateral abscess. #2 acquisition of cultures and Bx. #3 placement of packing. Specimen/Specimens Removed: Cx's x3 swabs, Cx's x1 abscess tissue, AFB & fungus sent to micro 2. Testicular lesions * testicular us shows small area heterogeneous echotexture lower pole of left testicle, no evidence of epididymo-orchitis, right testicular cyst, inflammatory changes, no abscess * continue to monitor * urology consult. Dr. Leal. recs appreciated-->no lesion noted on his exam, recommended for either dermatology or outpatient follow-up 3. Hyperkalemia * kayexalate given in er, will continue to monitor * Resolved 4. Hx of HTN * Norvasc 10mg PO daily * Toproxl XL 100mg PO daily * monitor vitals 5. Hx of HLD * continue to monitor * will restart home lipitor>> changed to crestor 5 mg PO HS 6. Acute on Chronic Renal insufficiency * on IV fluids, Cr improving * Nephrology (Dr. Bates) on board-->help appreciated * insulin sliding scale subq 7. hx of CVA * Asa 81 mg po daily and Plavix 75 mg po daily - resumed 11/09 (both were held for procedure) * Blood pressure control 8. GI/DVT ppx * Pepcid 20mg IV daily * scds b/l Dispo: Will need IV abx for 7 days, for rehab placement <Gladys Menchaca V - Last Filed: 02/06/17 23:54> Objective - Vital Signs/Intake and Output Vital Signs (last 24 hours): Temp Pulse Resp BP Pulse Ox 98.5 F 64 18 138/69 96 05/26/17 16:00 02/06/17 16:00 02/06/17 16:00 02/06/17 16:00 02/06/17 16:00 Intake and Output: 02/06/17 02/06/17 06:59 18:59 Intake Total 800 Output Total 200 Balance 800 -200 - Medications Medications: Current Medications Acetaminophen (Tylenol 325mg Tab) 650 mg PO Q6 PRN PRN Reason: Pain, moderate (4-7) Amlodipine Besylate (Norvasc) 10 mg PO DAILY [facility] Last Admin: 02/06/17 09:32 Dose: 10 mg Aspirin (Aspirin Chewable) 81 mg PO DAILY [facility] Last Admin: 02/06/17 15:03 Dose: 81 mg Clopidogrel Bisulfate (Plavix) 75 mg PO DAILY [facility] Last Admin: 02/06/17 15:03 Dose: 75 mg Famotidine (Pepcid) 20 mg IVP DAILY [facility] Last Admin: 02/06/17 09:32 Dose: 20 mg Furosemide (Lasix) 20 mg PO DAILY [facility] Last Admin: 02/04/17 16:16 Dose: 20 mg Heparin Sodium (Porcine) (Heparin) 5,000 units SC Q12 [facility] Last Admin: 02/06/17 09:32 Dose: 5,000 units Sodium Chloride (Sodium Chloride 0.9%) 1,000 mls @ 100 mls/hr IV .Q10H [facility] Last Admin: 02/06/17 00:45 Dose: 100 mls/hr Vancomycin HCl 1 gm/ Sodium (Chloride) 250 mls @ 166.7 mls/hr IVPB Q24H [facility] Last Admin: 02/06/17 14:33 Dose: 166.7 mls/hr Insulin Human Regular (Novolin R) 0 unit SC ACHS [facility] PRN Reason: Protocol Last Admin: 02/06/17 12:17 Dose: 4 unit Levothyroxine Sodium (Synthroid) 50 mcg PO DAILY@0630 [facility] Last Admin: 02/06/17 05:53 Dose: 50 mcg Metoprolol Succinate (Toprol Xl) 100 mg PO DAILY [facility] Last Admin: 02/06/17 09:32 Dose: 100 mg Rosuvastatin Calcium (Crestor) 5 mg PO HS [facility] Last Admin: 02/05/17 21:35 Dose: 5 mg Saccharomyces Boulardii (Florastor) 250 mg PO BID [facility] Last Admin: 02/06/17 09:32 Dose: 250 mg - Labs Labs: 02/06/17 06:50 02/06/17 06:50 PT 12.3 SECONDS (9.7-12.2) H 02/04/17 03:19 INR 1.1 02/04/17 03:19 APTT 29 SECONDS (21-34) 02/04/17 03:19 Attending/Attestation - Attestation I have personally seen and examined this patient.: Yes I have fully participated in the care of the patient.: Yes I have reviewed all pertinent clinical information, including history, physical exam and plan: Yes Notes (Text): Patient seen, examined, and case discussed with day-time resident. Patient reports mild right knee pain. Discussed with ortho, patient to resume Aspirin and Plavix given history of CVA. Recommended for rehab eval. Discussed with ID, recommended for 7 days of Vancomycin 1 gram IV 24 hours in light of final knee cultures showing MRSA. Discussed with nephrology, given recommended by infectious disease. Discussed with case management, will follow-up for rehab for discharge planning. 1. Right Knee Pain; Cellulitis and Abscess R/o osteomyelitis vs. septic arthritis * POD#2: s/p ID abscess; cellulitis * Continued Vancomycin 1gram IV Q24 hours; switched on 11/09 from Q12 to Q24 hours vanc trough 18.9 per ID * ID consult. Dr. Langford. recs appreciated -> recommended for Vancomycin 1 gram IV Q24 hours for 7 days (patient can receive in rehab if placed) * start florastor 250 bid * Ortho (Dr. Segura) on the case consult. recs appreciated. * NS 100cc/hr * Wound culture: MRSA prior OR; post-OR02/04: MRSA+ (sensitive to vanc) * MRI shows extensive swelling compatible with cellulitis. no evidence of abscess (please see full report)-->to be addendum--> 1.5 cm x 1 cm abscess at the lateral aspect of the knee that is subcutaneous with no visible extension to the knee joint and is in fact extra-articular (discussed between radiology and orthopedic) * right knee x ray negative * Preoperative note: Right knee #1 lateral extra-articular subcutaneous draining abscess. #2 lateral and medial cellulitis. Operation Performed: Right knee #1 I&D of lateral abscess. #2 acquisition of cultures and Bx. #3 placement of packing. Specimen/Specimens Removed: Cx's x3 swabs, Cx's x1 abscess tissue, AFB & fungus sent to micro 2. Testicular lesions * testicular us shows small area heterogeneous echotexture lower pole of left testicle, no evidence of epididymo-orchitis, right testicular cyst, inflammatory changes, no abscess * continue to monitor * urology consult. Dr. Lela. recs appreciated-->no lesion noted on his exam, recommended for either dermatology or outpatient follow-up 3. Hyperkalemia * kayexalate given in er, will continue to monitor * Resolved 4. Hx of HTN * Norvasc 10mg PO daily * Toproxl XL 100mg PO daily * monitor vitals 5. Hx of HLD * continue to monitor * will restart home lipitor>> changed to crestor 5 mg PO HS 6. Acute on Chronic Renal insufficiency * on IV fluids, Cr improving * Nephrology (Dr. Bates) on board-->help appreciated * insulin sliding scale subq 7. hx of CVA * Asa 81 mg po daily and Plavix 75 mg po daily - resumed 11/09 (both were held for procedure) * Blood pressure control 8. GI/DVT ppx * Pepcid 20mg IV daily * scds b/l Dispo: Will need IV abx for 7 days, for rehab placement. Awaiting rehab placement.
--- NOTE | 2017-02-06 20:16 | PN ---
DATE: 02/06/2017 An 81-year-old male with past medical history of hypertension, diabetes, hyperlipidemia, dementia, ad mitted with right knee cellulitis and adjacent subcutaneous abscess. Nephrology consulted for acute renal failure. The patient reports having pain involving the right leg, otherwise is tolerating diet and denies any shortness of breath. PHYSICAL EXAMINATION: VITAL SIGNS: Blood pressure this afternoon 138/69, heart rate 64, respirations 18, temperature 98.5, O2 sat 96% on room air. GENERAL: No distress, able to communicate coherently in full sentences. HEENT: Moist mucous membranes. Nonicteric. RESPIRATORY: Lungs are clear to auscultation bilaterally. No rales, no rhonchi, no wheezes. HEART: S1, S2 normal, no murmurs, no gallops, no rubs. ABDOMEN: Soft, nondistended. EXTREMITIES: No leg edema. SKIN: Warm, no cyanosis. PSYCHIATRIC: Normal mood, normal affect. LABORATORY DATA: CBC: WBC 8.5, hemoglobin 9.6, hematocrit 28.5, platelets 304. Chemistry panel: S odium 138, potassium 4.1, chloride 107, bicarbonate 23, BUN 20, creatinine 1.4 down from 1.6 yesterda y. Glucose 170, calcium 8.3, albumin 3.2. ASSESSMENT: 1. Acute renal failure, acute kidney injury on chronic kidney disease stage IIIA consistent with pre renal etiology in the setting of being on an ARB and likely having decreased p.o. intake. Renal func tion improved with IV fluids over the last few days. The patient appears euvolemic on exam. Can dec rease IV fluids to just maintenance. Continue to hold diuretics for now. 2. Chronic kidney disease, stage IIIA. Negative urine protein; however, about 1 gram of protein per urine protein, creatinine ratio. Recommend to repeat once patient has stabilized, can be done as an outpatient. 3. Hypertension. Currently on amlodipine 10 mg daily and metoprolol XL 100 mg daily. Blood pressur e well controlled. Continue to hold ARB for now and continue with Norvasc and Lopressor. 4. Subcutaneous abscess on IV vancomycin with cultures positive for methicillin resistant staphyloco ccus aureus. Vancomycin trough yesterday at higher end of therapeutic range, level 18.9. Would try to keep the patient at lowest therapeutic range that would be appropriate to treat an abscess that hilario s already been drained in order to avoid nephrotoxicity. 5. Diabetes. Hemoglobin A1c mildly elevated for an elderly patient. Recommend to keep level less t sultana 8 in order to avoid microvascular complications associated with diabetes. Thank you for this consult. Nephrology service will sign off. Please feel free to contact us with a [place] questions or concerns. Schuyler Contreras MD cc: [id number] TT: 02/06/2017 20:15:56 Confirmation # [id number] Dictation # [id number]
[2017-02-06] MEDS ORDERED: Potassium Chloride 20 mEq ER Tab PO ONE (21:05)
--- NOTE | 2017-02-07 00:38 | CP.PCM.PN ---
<Rober Cervantes - Last Filed: 02/07/17 00:43> Subjective - Date & Time of Evaluation Date of Evaluation: 02/07/17 Time of Evaluation: 00:35 - Subjective Subjective: Medicine progress note. Attending: Dr. Menchaca Pt seen and examined at bedside. No acute distress. Resting comfortably. No complaints. Denies fevers, pain, chills, vomiting, diarrhea, syncope. Pt's cultures grew out MRSA. He is eating well, having BMs. He is s/p irrigation and debridement of knee abscess. Objective - Vital Signs/Intake and Output Vital Signs (last 24 hours): Temp Pulse Resp BP Pulse Ox 98.5 F 64 18 138/69 96 02/06/17 16:00 02/06/17 16:00 02/06/17 16:00 02/06/17 16:00 02/06/17 16:00 Intake and Output: 02/06/17 02/07/17 18:59 06:59 Intake Total 1200 Output Total 200 1002 Balance -200 198 - Medications Medications: Current Medications Acetaminophen (Tylenol 325mg Tab) 650 mg PO Q6 PRN PRN Reason: Pain, moderate (4-7) Last Admin: 02/06/17 18:19 Dose: 650 mg Amlodipine Besylate (Norvasc) 10 mg PO DAILY [facility] Last Admin: 02/06/17 09:32 Dose: 10 mg Aspirin (Aspirin Chewable) 81 mg PO DAILY [facility] Last Admin: 02/06/17 15:03 Dose: 81 mg Clopidogrel Bisulfate (Plavix) 75 mg PO DAILY [facility] Last Admin: 02/06/17 15:03 Dose: 75 mg Famotidine (Pepcid) 20 mg IVP DAILY [facility] Last Admin: 02/06/17 09:32 Dose: 20 mg Furosemide (Lasix) 20 mg PO DAILY [facility] Last Admin: 02/04/17 16:16 Dose: 20 mg Heparin Sodium (Porcine) (Heparin) 5,000 units SC Q12 [facility] Last Admin: 02/06/17 22:29 Dose: 5,000 units Sodium Chloride (Sodium Chloride 0.9%) 1,000 mls @ 100 mls/hr IV .Q10H [facility] Last Admin: 02/06/17 23:27 Dose: Not Given Vancomycin HCl 1 gm/ Sodium (Chloride) 250 mls @ 166.7 mls/hr IVPB Q24H [facility] Last Admin: 02/06/17 14:33 Dose: 166.7 mls/hr Insulin Human Regular (Novolin R) 0 unit SC ACHS [facility] PRN Reason: Protocol Last Admin: 02/06/17 21:54 Dose: Not Given Levothyroxine Sodium (Synthroid) 50 mcg PO DAILY@0630 [facility] Last Admin: 02/06/17 05:53 Dose: 50 mcg Metoprolol Succinate (Toprol Xl) 100 mg PO DAILY [facility] Last Admin: 02/06/17 09:32 Dose: 100 mg Rosuvastatin Calcium (Crestor) 5 mg PO HS [facility] Last Admin: 02/06/17 22:29 Dose: 5 mg Saccharomyces Boulardii (Florastor) 250 mg PO BID [facility] Last Admin: 02/06/17 18:20 Dose: 250 mg - Labs Labs: 02/06/17 06:50 02/06/17 06:50 PT 12.3 SECONDS (9.7-12.2) H 02/04/17 03:19 INR 1.1 02/04/17 03:19 APTT 29 SECONDS (21-34) 02/04/17 03:19 - Constitutional Appears: Non-toxic, No Acute Distress - Head Exam Head Exam: ATRAUMATIC, NORMAL INSPECTION, NORMOCEPHALIC - Eye Exam Eye Exam: EOMI - ENT Exam ENT Exam: Mucous Membranes Moist - Respiratory Exam Respiratory Exam: NORMAL BREATHING PATTERN. absent: Respiratory Distress - Cardiovascular Exam Cardiovascular Exam: +S1, +S2 - GI/Abdominal Exam GI & Abdominal Exam: Soft, Normal Bowel Sounds. absent: Tenderness - Extremities Exam Additional comments: I&D site improving, not able to express any pus. minimal drainage. surrounding erythema and cellulitis markedly improved. +DP pulse, sensation intact +ROM ankle/toes. - Neurological Exam Neurological Exam: Alert, Awake - Psychiatric Exam Psychiatric exam: Normal Affect, Normal Mood - Skin Skin Exam: Dry, Intact, Normal Color, Warm Assessment and Plan - Assessment and Plan (Free Text) Assessment: 1. Right Knee Pain; Cellulitis and Abscess R/o osteomyelitis vs. septic arthritis * POD#3: s/p ID abscess; cellulitis * Continued Vancomycin 1gram IV Q24 hours; switched on 11/09 from Q12 to Q24 hours vanc trough 18.9 * ID consult. Dr. Langford. recs appreciated - Needs IV Van for 7 days (patient can receive in rehab if placed) * will continue florastor 250 bid * Ortho (Dr. Segura) on the case consult. recs appreciated. * fungal culture negative * NS 100cc/hr * Wound culture: MRSA prior OR; post-OR02/04: MRSA+ (sensitive to vanc) * MRI shows extensive swelling compatible with cellulitis. no evidence of abscess (please see full report)-->to be addendum--> 1.5 cm x 1 cm abscess at the lateral aspect of the knee that is subcutaneous with no visible extension to the knee joint and is in fact extra-articular (discussed between radiology and orthopedic) * right knee x ray negative * PT/OT eval * Preoperative note: Right knee #1 lateral extra-articular subcutaneous draining abscess. #2 lateral and medial cellulitis. Operation Performed: Right knee #1 I&D of lateral abscess. #2 acquisition of cultures and Bx. #3 placement of packing. Specimen/Specimens Removed: Cx's x3 swabs, Cx's x1 abscess tissue, AFB & fungus sent to micro 2. Testicular lesions * testicular us shows small area heterogeneous echotexture lower pole of left testicle, no evidence of epididymo-orchitis, right testicular cyst, inflammatory changes, no abscess * continue to monitor * urology consult. Dr. Leal. recs appreciated-->no lesion noted on his exam, recommended for either dermatology or outpatient follow-up 3. Hyperkalemia * kayexalate given in er, will continue to monitor * Resolved 4. Hx of HTN * Norvasc 10mg PO daily * Toproxl XL 100mg PO daily * monitor vitals 5. Hx of HLD * continue to monitor * will restart home lipitor>> changed to crestor 5 mg PO HS 6. Acute on Chronic Renal insufficiency * on IV fluids, Cr improving * Nephrology (Dr. Bates) on board-->help appreciated * insulin sliding scale subq 7. hx of CVA * Asa 81 mg po daily and Plavix 75 mg po daily - resumed 11/09 (both were held for procedure) * Blood pressure control 8. GI/DVT ppx * Pepcid 20mg IV daily * scds b/l Dispo: Will need IV abx for 7 days, for rehab placement to be discussed with Dr. Menchaca <Gladys Menchaca V - Last Filed: 02/07/17 15:07> Objective - Vital Signs/Intake and Output Vital Signs (last 24 hours): Temp Pulse Resp BP Pulse Ox 98 F 66 20 139/89 97 02/07/17 08:15 02/07/17 08:15 02/07/17 08:15 02/07/17 08:15 02/07/17 08:15 Intake and Output: 02/07/17 02/07/17 06:59 18:59 Intake Total 2120 Output Total 1402 Balance 718 - Medications Medications: Current Medications Acetaminophen (Tylenol 325mg Tab) 650 mg PO Q6 PRN PRN Reason: Pain, moderate (4-7) Last Admin: 02/06/17 18:19 Dose: 650 mg Amlodipine Besylate (Norvasc) 10 mg PO DAILY [facility] Last Admin: 02/07/17 11:08 Dose: 10 mg Aspirin (Aspirin Chewable) 81 mg PO DAILY [facility] Last Admin: 02/07/17 11:08 Dose: 81 mg Clopidogrel Bisulfate (Plavix) 75 mg PO DAILY [facility] Last Admin: 02/07/17 11:08 Dose: 75 mg Famotidine (Pepcid) 20 mg IVP DAILY [facility] Last Admin: 02/07/17 11:08 Dose: 20 mg Furosemide (Lasix) 20 mg PO DAILY [facility] Last Admin: 02/04/17 16:16 Dose: 20 mg Sodium Chloride (Sodium Chloride 0.9%) 1,000 mls @ 100 mls/hr IV .Q10H [facility] Last Admin: 02/07/17 13:13 Dose: 100 mls/hr Vancomycin HCl 1 gm/ Sodium (Chloride) 250 mls @ 166.7 mls/hr IVPB Q24H [facility] Last Admin: 02/07/17 13:09 Dose: 166.7 mls/hr Insulin Human Regular (Novolin R) 0 unit SC ACHS [facility] PRN Reason: Protocol Last Admin: 02/07/17 13:09 Dose: 3 unit Levothyroxine Sodium (Synthroid) 50 mcg PO DAILY@0630 [facility] Last Admin: 02/07/17 06:29 Dose: 50 mcg Metoprolol Succinate (Toprol Xl) 100 mg PO DAILY [facility] Last Admin: 02/07/17 11:08 Dose: 100 mg Rosuvastatin Calcium (Crestor) 5 mg PO HS [facility] Last Admin: 02/06/17 22:29 Dose: 5 mg Saccharomyces Boulardii (Florastor) 250 mg PO BID [facility] Last Admin: 02/07/17 11:09 Dose: 250 mg - Labs Labs: 02/07/17 07:15 02/07/17 07:15 PT 12.3 SECONDS (9.7-12.2) H 02/04/17 03:19 INR 1.1 02/04/17 03:19 APTT 29 SECONDS (21-34) 02/04/17 03:19 Attending/Attestation - Attestation I have personally seen and examined this patient.: Yes I have fully participated in the care of the patient.: Yes I have reviewed all pertinent clinical information, including history, physical exam and plan: Yes Notes (Text): Patient seen, examined, and case discussed with day-time resident. Patient reports mild right knee pain but is controlled. Discussed with ID, recommended for 7 days of Vancomycin 1 gram IV 24 hours total (Day 2 out of 7 today) in light of final knee cultures showing MRSA. Discussed with social media executive, awaiting authorization for rehab placement. Discontinue IV fluids. Bun/Cr have normalized. Electrolytes repleted. 1. Right Knee Pain; Cellulitis and Abscess R/o osteomyelitis vs. septic arthritis * POD#3: s/p ID abscess; cellulitis * Continued Vancomycin 1gram IV Q24 hours; switched on 11/09 from Q12 to Q24 hours vanc trough 18.9 per ID * ID consult. Dr. Langford. recs appreciated -> recommended for Vancomycin 1 gram IV Q24 hours for 7 days (patient can receive in rehab if placed) * start florastor 250 bid * Ortho (Dr. Segura) on the case consult. recs appreciated. * NS 100cc/hr * Wound culture: MRSA prior OR; post-OR02/04: MRSA+ (sensitive to vanc) * MRI shows extensive swelling compatible with cellulitis. no evidence of abscess (please see full report)-->to be addendum--> 1.5 cm x 1 cm abscess at the lateral aspect of the knee that is subcutaneous with no visible extension to the knee joint and is in fact extra-articular (discussed between radiology and orthopedic) * right knee x ray negative * Preoperative note: Right knee #1 lateral extra-articular subcutaneous draining abscess. #2 lateral and medial cellulitis. Operation Performed: Right knee #1 I&D of lateral abscess. #2 acquisition of cultures and Bx. #3 placement of packing. Specimen/Specimens Removed: Cx's x3 swabs, Cx's x1 abscess tissue, AFB & fungus sent to micro 2. Testicular lesions * testicular us shows small area heterogeneous echotexture lower pole of left testicle, no evidence of epididymo-orchitis, right testicular cyst, inflammatory changes, no abscess * continue to monitor * urology consult. Dr. Leal. recs appreciated-->no lesion noted on his exam, recommended for either dermatology or outpatient follow-up 3. Hyperkalemia * kayexalate given in er, will continue to monitor * Resolved 4. Hx of HTN * Norvasc 10mg PO daily * Toproxl XL 100mg PO daily * monitor vitals 5. Hx of HLD * continue to monitor * will restart home lipitor>> changed to crestor 5 mg PO HS 6. Acute Renal insufficiency * Nephrology (Dr. Bates) on board-->help appreciated * insulin sliding scale subq * Discontinued IV fluids 7. hx of CVA * Asa 81 mg po daily and Plavix 75 mg po daily * Blood pressure control 8. GI/DVT ppx * Pepcid 20mg IV daily * scds b/l * Heparin 5000 units subq 8 hours. Dispo: Will need IV abx for 7 days total (Day 2/7, for rehab placement. Awaiting rehab placement. Awaiting authorization from insurance.
[2017-02-07] MEDS: Levothyroxine 50 MCG TAB PO SCH (06:29)
[2017-02-07] MEDS: Sodium Chloride 0.9% 1,000 ML IV SCH ×3 (06:34→13:13)
[2017-02-07 07:40] LABS: BASO # 0.1 K/uL (0.0-0.2); BASO % 1.1 % (0.0-2.0); EOS # 0.6 K/uL (0.0-0.7); EOS % 6.6 % (0.0-4.0); HEMATOCRIT 28.4 % (35.0-51.0); LYMPH # 2.4 K/uL (1.0-4.3); LYMPH % 29.3 % (20.0-40.0); MEAN CELL VOLUME 81.8 fL (80.0-94.0); MEAN CORPUSCULAR HEMOGLOBIN 27.7 pg (27.0-31.0); MEAN CORPUSCULAR HGB CONC 33.9 g/dL (33.0-37.0); MEAN PLATELET VOLUME 8.6 fL (7.2-11.7); MONO # 0.7 K/uL (0.0-0.8); MONO % 8.6 % (0.0-10.0); RED CELL DISTRIBUTION WIDTH 14.1 % (11.5-14.5); WHITE BLOOD COUNT 8.3 K/uL (4.8-10.8)
[2017-02-07 07:50] LABS: IRON 47 ug/dL (49-181)
[2017-02-07 07:51] LABS: CHLORIDE 105 mmol/L (98-107); POTASSIUM 3.9 mmol/L (3.6-5.2); SODIUM 136 mmol/L (132-148)
[2017-02-07 07:53] LABS: ALB/GLOB RATIO 1.1 (1.0-2.1); AST/SGOT 22 U/L (17-59); BILIRUBIN,TOTAL 0.5 mg/dL (0.2-1.3); CARBON DIOXIDE 22 mmol/L (22-30); GFR AFRICAN-AMERICAN > 60; TOTAL PROTEIN 6.2 g/dL (6.3-8.3)
[2017-02-07 07:54] LABS: ALKALINE PHOSPHATASE 75 U/L (38-126); ALT/SGPT 15 U/L (21-72); BLOOD UREA NITROGEN 17 mg/dL (9-20); CALCIUM 8.3 mg/dl (8.6-10.4); GLUCOSE,RANDOM 150 mg/dL (75-110); MAGNESIUM 1.5 mg/dL (1.6-2.3); PHOSPHOROUS 2.4 mg/dL (2.5-4.5)
[2017-02-07] MEDS: (Novolin R) Insulin Human Regular 100 units/ml vial SC SCH ×4 (08:18→21:30)
[2017-02-07] MEDS ORDERED: Magnesium Sulfate 1 gm in D5W 1 GM/100 ML BAG IVPB ONE (10:00)
[2017-02-07] MEDS: Metoprolol Succinate 100 mg XL Tab PO SCH (11:08)
[2017-02-07] MEDS: Saccharomyces Boulardi 250 mg Cap PO SCH ×2 (11:09→18:01)
--- NOTE | 2017-02-07 18:23 | CP.PCM.PN ---
Subjective - Date & Time of Evaluation Date of Evaluation: 02/07/17 Time of Evaluation: 18:00 - Subjective Subjective: Patient reports pain in R leg; otherwise denies any sob; Objective - Vital Signs/Intake and Output Vital Signs (last 24 hours): Temp Pulse Resp BP Pulse Ox 98.3 F 63 20 134/62 96 02/07/17 15:40 02/07/17 15:40 02/07/17 15:40 02/07/17 15:40 02/07/17 15:40 Intake and Output: 02/07/17 02/07/17 06:59 18:59 Intake Total 2120 Output Total 1402 Balance 718 - Medications Medications: Current Medications Acetaminophen (Tylenol 325mg Tab) 650 mg PO Q6 PRN PRN Reason: Pain, moderate (4-7) Last Admin: 02/06/17 18:19 Dose: 650 mg Amlodipine Besylate (Norvasc) 10 mg PO DAILY [facility] Last Admin: 02/07/17 11:08 Dose: 10 mg Ascorbic Acid (Vitamin C 250 Mg Tab) 250 mg PO DAILY [facility] Aspirin (Aspirin Chewable) 81 mg PO DAILY [facility] Last Admin: 02/07/17 11:08 Dose: 81 mg Clopidogrel Bisulfate (Plavix) 75 mg PO DAILY [facility] Last Admin: 02/07/17 11:08 Dose: 75 mg Famotidine (Pepcid) 20 mg IVP DAILY [facility] Last Admin: 02/07/17 11:08 Dose: 20 mg Ferrous Sulfate (Feosol) 325 mg PO Q12H [facility] Furosemide (Lasix) 20 mg PO DAILY [facility] Last Admin: 02/04/17 16:16 Dose: 20 mg Heparin Sodium (Porcine) (Heparin) 5,000 units SC Q8 [facility] Vancomycin HCl 1 gm/ Sodium (Chloride) 250 mls @ 166.7 mls/hr IVPB Q24H [facility] Last Admin: 02/07/17 13:09 Dose: 166.7 mls/hr Insulin Human Regular (Novolin R) 0 unit SC ACHS [facility] PRN Reason: Protocol Last Admin: 02/07/17 18:01 Dose: 3 unit Levothyroxine Sodium (Synthroid) 50 mcg PO DAILY@0630 [facility] Last Admin: 02/07/17 06:29 Dose: 50 mcg Metoprolol Succinate (Toprol Xl) 100 mg PO DAILY [facility] Last Admin: 02/07/17 11:08 Dose: 100 mg Rosuvastatin Calcium (Crestor) 5 mg PO HS [facility] Last Admin: 02/06/17 22:29 Dose: 5 mg Saccharomyces Boulardii (Florastor) 250 mg PO BID [facility] Last Admin: 02/07/17 18:01 Dose: 250 mg - Labs Labs: 02/07/17 07:15 02/07/17 07:15 PT 12.3 SECONDS (9.7-12.2) H 02/04/17 03:19 INR 1.1 02/04/17 03:19 APTT 29 SECONDS (21-34) 02/04/17 03:19 - Constitutional Appears: Well, No Acute Distress - Head Exam Head Exam: NORMAL INSPECTION - Eye Exam Eye Exam: absent: Scleral icterus - ENT Exam ENT Exam: Mucous Membranes Moist - Respiratory Exam Respiratory Exam: Clear to Ausculation Bilateral, NORMAL BREATHING PATTERN - Cardiovascular Exam Cardiovascular Exam: REGULAR RHYTHM, +S1, +S2 - GI/Abdominal Exam GI & Abdominal Exam: Soft. absent: Tenderness - Extremities Exam Additional comments: no leg edema - Neurological Exam Neurological Exam: Alert, Awake - Psychiatric Exam Psychiatric exam: Normal Affect, Normal Mood - Skin Skin Exam: Normal Color, Warm. absent: Cyanosis Assessment and Plan (1) JAY JAY (acute kidney injury) Assessment & Plan: JAY JAY on CKD IIIA; pre-renal etiology, resolved with IV fluids and holding diuretics, continue to hold diuretics; Status: Acute (2) Anemia Assessment & Plan: Iron deficiency as well as due to chronic disease/acute illness, keep on PO iron for now; Status: Acute (3) MRSA (methicillin resistant Staphylococcus aureus) infection Assessment & Plan: On IV vanco 1g daily, will check vanco trough tomorrow to avoid any nephrotoxicity; Status: Acute
--- NOTE | 2017-02-08 00:31 | CP.PCM.PN ---
<Rober Cervantes - Last Filed: 02/08/17 00:38> Subjective - Date & Time of Evaluation Date of Evaluation: 02/08/17 Time of Evaluation: 00:30 - Subjective Subjective: Medicine progress note. Attending: Dr. Menchaca Pt seen and examined at bedside. No acute distress. Resting comfortably. No complaints. Denies fevers, pain, chills, vomiting, diarrhea, syncope. Pt's cultures grew out MRSA. He is eating well, having BMs. He is s/p irrigation and debridement of knee abscess. Awaiting authorization for rehab placement. Objective - Vital Signs/Intake and Output Vital Signs (last 24 hours): Temp Pulse Resp BP Pulse Ox 98.3 F 63 20 134/62 96 02/07/17 15:40 02/07/17 15:40 02/07/17 15:40 02/07/17 15:40 02/07/17 15:40 Intake and Output: 02/07/17 02/08/17 18:59 06:59 Intake Total 1300 Balance 1300 - Medications Medications: Current Medications Acetaminophen (Tylenol 325mg Tab) 650 mg PO Q6 PRN PRN Reason: Pain, moderate (4-7) Last Admin: 02/06/17 18:19 Dose: 650 mg Amlodipine Besylate (Norvasc) 10 mg PO DAILY [facility] Last Admin: 02/07/17 11:08 Dose: 10 mg Ascorbic Acid (Vitamin C 250 Mg Tab) 250 mg PO DAILY [facility] Aspirin (Aspirin Chewable) 81 mg PO DAILY [facility] Last Admin: 02/07/17 11:08 Dose: 81 mg Clopidogrel Bisulfate (Plavix) 75 mg PO DAILY [facility] Last Admin: 02/07/17 11:08 Dose: 75 mg Famotidine (Pepcid) 20 mg IVP DAILY [facility] Last Admin: 02/07/17 11:08 Dose: 20 mg Ferrous Sulfate (Feosol) 325 mg PO Q12H [facility] Last Admin: 02/07/17 22:12 Dose: 325 mg Furosemide (Lasix) 20 mg PO DAILY [facility] Last Admin: 02/04/17 16:16 Dose: 20 mg Heparin Sodium (Porcine) (Heparin) 5,000 units SC Q8 [facility] Last Admin: 02/07/17 22:11 Dose: 5,000 units Vancomycin HCl 1 gm/ Sodium (Chloride) 250 mls @ 166.7 mls/hr IVPB Q24H [facility] Last Admin: 02/07/17 13:09 Dose: 166.7 mls/hr Insulin Human Regular (Novolin R) 0 unit SC ACHS [facility] PRN Reason: Protocol Last Admin: 02/07/17 21:30 Dose: Not Given Levothyroxine Sodium (Synthroid) 50 mcg PO DAILY@0630 [facility] Last Admin: 02/07/17 06:29 Dose: 50 mcg Metoprolol Succinate (Toprol Xl) 100 mg PO DAILY [facility] Last Admin: 02/07/17 11:08 Dose: 100 mg Rosuvastatin Calcium (Crestor) 5 mg PO HS [facility] Last Admin: 02/07/17 22:11 Dose: 5 mg Saccharomyces Boulardii (Florastor) 250 mg PO BID [facility] Last Admin: 02/07/17 18:01 Dose: 250 mg - Labs Labs: 02/07/17 07:15 02/07/17 07:15 PT 12.3 SECONDS (9.7-12.2) H 02/04/17 03:19 INR 1.1 02/04/17 03:19 APTT 29 SECONDS (21-34) 02/04/17 03:19 - Constitutional Appears: Non-toxic, No Acute Distress - Head Exam Head Exam: ATRAUMATIC, NORMAL INSPECTION, NORMOCEPHALIC - Eye Exam Eye Exam: EOMI - ENT Exam ENT Exam: Mucous Membranes Moist - Neck Exam Neck Exam: Full ROM, Normal Inspection - Respiratory Exam Respiratory Exam: NORMAL BREATHING PATTERN. absent: Respiratory Distress - Cardiovascular Exam Cardiovascular Exam: +S1, +S2 - GI/Abdominal Exam GI & Abdominal Exam: Soft, Normal Bowel Sounds. absent: Tenderness - Extremities Exam Extremities Exam: absent: Full ROM, Normal Inspection Additional comments: Knee immobilizer right knee - Neurological Exam Neurological Exam: Alert, Awake, Oriented x3 - Psychiatric Exam Psychiatric exam: Normal Affect, Normal Mood - Skin Skin Exam: Dry, Intact, Normal Color, Warm Assessment and Plan - Assessment and Plan (Free Text) Assessment: 1. Right Knee Pain; Cellulitis and Abscess; rule out osteomyelitis vs. septic arthritis * POD#4: s/p Irrigation and debridement abscess; cellulitis * Continued Vancomycin 1gram IV Q24 hours; switched on 11/09 from Q12 to Q24 hours vancomycin trough 18.9 per ID * Infectious disease consult. Dr. Langford. recs appreciated -> recommended for Vancomycin 1 gram IV Q24 hours for 7 days (patient can receive in rehab if placed) * will continue florastor 250 mg PO bid * Ortho (Dr. Segura) on the case consult. recs appreciated. * IV fluids stopped * Wound culture: MRSA prior OR; post-OR 02/04: MRSA+ (sensitive to vancomycin) * MRI shows extensive swelling compatible with cellulitis. no evidence of abscess (please see full report)-->to be addendum--> 1.5 cm x 1 cm abscess at the lateral aspect of the knee that is subcutaneous with no visible extension to the knee joint and is in fact extra-articular (discussed between radiology and orthopedic) * right knee x ray negative * Preoperative note: Right knee #1 lateral extra-articular subcutaneous draining abscess. #2 lateral and medial cellulitis. Operation Performed: Right knee #1 I&D of lateral abscess. #2 acquisition of cultures and Bx. #3 placement of packing. Specimen/Specimens Removed: Cx's x3 swabs, Cx's x1 abscess tissue, AFB & fungus sent to micro 2. Testicular lesions * testicular us shows small area heterogeneous echotexture lower pole of left testicle, no evidence of epididymo-orchitis, right testicular cyst, inflammatory changes, no abscess * continue to monitor * urology consult. Dr. Leal. recs appreciated-->no lesion noted on his exam, recommended for either dermatology or outpatient follow-up 3. Hyperkalemia * kayexalate given in er, will continue to monitor * Resolved 4. History of hypertension * Norvasc 10mg PO daily * Toproxl XL 100mg PO daily * monitor vitals 5. History of hyperlipidemia * continue to monitor * will restart home lipitor>> changed to crestor 5 mg PO HS 6. Acute Renal insufficiency * Nephrology (Dr. Bates) on board-->help appreciated * insulin sliding scale subcutaneous * Discontinued IV fluids 7. history of cerebrovascular accident * Asa 81 mg po daily and Plavix 75 mg po daily * Blood pressure control 8. Iron deficiency anemia -we have added feosol 325 mg PO daily 9. Gastrointestinal and deep vein thrombosis prophylaxis * Pepcid 20mg IV daily * scds b/l * Heparin 5000 units subq 8 hours. Dispo: Will need IV abx for 7 days total (Day 3 on February 08, for rehab placement. Awaiting rehab placement. Awaiting authorization from insurance. to be discussed with Dr. Menchaca. <Gladys Menchaca V - Last Filed: 02/08/17 18:15> Objective - Vital Signs/Intake and Output Vital Signs (last 24 hours): Temp Pulse Resp BP Pulse Ox 98.6 F 61 20 126/63 96 02/08/17 15:48 02/08/17 15:48 02/08/17 15:48 02/08/17 15:48 02/08/17 15:48 Intake and Output: 02/08/17 02/08/17 06:59 18:59 Intake Total 580 Balance 580 - Medications Medications: Current Medications Acetaminophen (Tylenol 325mg Tab) 650 mg PO Q6 PRN PRN Reason: Pain, moderate (4-7) Last Admin: 02/06/17 18:19 Dose: 650 mg Amlodipine Besylate (Norvasc) 10 mg PO DAILY [facility] Last Admin: 02/08/17 10:42 Dose: 10 mg Ascorbic Acid (Vitamin C 250 Mg Tab) 250 mg PO DAILY [facility] Aspirin (Aspirin Chewable) 81 mg PO DAILY [facility] Last Admin: 02/08/17 10:42 Dose: 81 mg Clopidogrel Bisulfate (Plavix) 75 mg PO DAILY [facility] Last Admin: 02/08/17 10:42 Dose: 75 mg Famotidine (Pepcid) 20 mg PO DAILY [facility] Ferrous Sulfate (Feosol) 325 mg PO Q12H [facility] Last Admin: 02/08/17 10:42 Dose: 325 mg Furosemide (Lasix) 20 mg PO DAILY [facility] Last Admin: 02/04/17 16:16 Dose: 20 mg Heparin Sodium (Porcine) (Heparin) 5,000 units SC Q8 [facility] Last Admin: 02/08/17 15:15 Dose: 5,000 units Vancomycin HCl 1 gm/ Sodium (Chloride) 250 mls @ 166.7 mls/hr IVPB Q24H [facility] Last Admin: 02/08/17 15:15 Dose: 166.7 mls/hr Insulin Human Regular (Novolin R) 0 unit SC ACHS [facility] PRN Reason: Protocol Last Admin: 02/08/17 17:33 Dose: Not Given Levothyroxine Sodium (Synthroid) 50 mcg PO DAILY@0630 [facility] Last Admin: 02/08/17 05:49 Dose: 50 mcg Metoprolol Succinate (Toprol Xl) 100 mg PO DAILY [facility] Last Admin: 02/08/17 10:42 Dose: 100 mg Rosuvastatin Calcium (Crestor) 5 mg PO HS [facility] Last Admin: 02/07/17 22:11 Dose: 5 mg Saccharomyces Boulardii (Florastor) 250 mg PO BID [facility] Last Admin: 02/08/17 10:42 Dose: 250 mg - Labs Labs: 02/08/17 07:59 02/08/17 07:59 PT 12.3 SECONDS (9.7-12.2) H 02/04/17 03:19 INR 1.1 02/04/17 03:19 APTT 29 SECONDS (21-34) 02/04/17 03:19 Attending/Attestation - Attestation I have personally seen and examined this patient.: Yes I have fully participated in the care of the patient.: Yes I have reviewed all pertinent clinical information, including history, physical exam and plan: Yes Notes (Text): Patient seen, examined, and case discussed with day-time resident. Patient reports mild right knee pain but is controlled. Discussed with ID, recommended for 7 days of Vancomycin 1 gram IV 24 hours total (Day 3 out of 7 today) in light of final knee cultures showing MRSA. Awaiting authorization for rehab placement. 1. Right Knee Pain; Cellulitis and Abscess R/o osteomyelitis vs. septic arthritis * POD#4: s/p ID abscess; cellulitis * Continued Vancomycin 1gram IV Q24 hours; switched on 11/09 from Q12 to Q24 hours vanc trough 18.9 per ID * ID consult. Dr. Langford. recs appreciated -> recommended for Vancomycin 1 gram IV Q24 hours for 7 days (patient can receive in rehab if placed) * start florastor 250 bid * Ortho (Dr. Segura) on the case consult. recs appreciated. * NS 100cc/hr * Wound culture: MRSA prior OR; post-OR02/04: MRSA+ (sensitive to vanc) * MRI shows extensive swelling compatible with cellulitis. no evidence of abscess (please see full report)-->to be addendum--> 1.5 cm x 1 cm abscess at the lateral aspect of the knee that is subcutaneous with no visible extension to the knee joint and is in fact extra-articular (discussed between radiology and orthopedic) * right knee x ray negative * Preoperative note: Right knee #1 lateral extra-articular subcutaneous draining abscess. #2 lateral and medial cellulitis. Operation Performed: Right knee #1 I&D of lateral abscess. #2 acquisition of cultures and Bx. #3 placement of packing. Specimen/Specimens Removed: Cx's x3 swabs, Cx's x1 abscess tissue, AFB & fungus sent to micro 2. Testicular lesions * testicular us shows small area heterogeneous echotexture lower pole of left testicle, no evidence of epididymo-orchitis, right testicular cyst, inflammatory changes, no abscess * continue to monitor * urology consult. Dr. Leal. recs appreciated-->no lesion noted on his exam, recommended for either dermatology or outpatient follow-up 3. Hyperkalemia * kayexalate given in er, will continue to monitor * Resolved 4. Hx of HTN * Norvasc 10mg PO daily * Toproxl XL 100mg PO daily * monitor vitals 5. Hx of HLD * continue to monitor * will restart home lipitor>> changed to crestor 5 mg PO HS 6. Acute Renal insufficiency * Nephrology (Dr. Bates) on board-->help appreciated * insulin sliding scale subq * Monitor BUN/Cr 7. hx of CVA * Asa 81 mg po daily and Plavix 75 mg po daily * Blood pressure control 8. GI/DVT ppx * Pepcid 20mg PO daily * scds b/l * Heparin 5000 units subq 8 hours. Dispo: Will need IV abx for 7 days total (Day 37, for rehab placement. Awaiting rehab placement. Awaiting authorization from insurance.
[2017-02-08] MEDS: Levothyroxine 50 MCG TAB PO SCH (05:49)
[2017-02-08 08:13] LABS: BASO # 0.1 K/uL (0.0-0.2); BASO % 1.5 % (0.0-2.0); EOS # 0.6 K/uL (0.0-0.7); EOS % 7.2 % (0.0-4.0); HEMATOCRIT 27.7 % (35.0-51.0); LYMPH # 2.6 K/uL (1.0-4.3); LYMPH % 32.6 % (20.0-40.0); MEAN CELL VOLUME 81.8 fL (80.0-94.0); MEAN CORPUSCULAR HGB CONC 34.2 g/dL (33.0-37.0); MEAN PLATELET VOLUME 8.7 fL (7.2-11.7); MONO # 0.6 K/uL (0.0-0.8); MONO % 7.1 % (0.0-10.0); NRBC % 0.1 % (0.0-2.0); RED CELL DISTRIBUTION WIDTH 13.6 % (11.5-14.5); WHITE BLOOD COUNT 8.1 K/uL (4.8-10.8)
[2017-02-08 08:14] LABS: CHLORIDE 106 mmol/L (98-107); POTASSIUM 3.6 mmol/L (3.6-5.2); SODIUM 135 mmol/L (132-148)
[2017-02-08 08:16] LABS: BILIRUBIN,TOTAL 0.4 mg/dL (0.2-1.3); CARBON DIOXIDE 20 mmol/L (22-30); GFR AFRICAN-AMERICAN > 60
[2017-02-08 08:17] LABS: ALB/GLOB RATIO 1.2 (1.0-2.1); ALKALINE PHOSPHATASE 63 U/L (38-126); ALT/SGPT 19 U/L (21-72); AST/SGOT 18 U/L (17-59); BLOOD UREA NITROGEN 18 mg/dL (9-20); CALCIUM 7.9 mg/dl (8.6-10.4); GLUCOSE,RANDOM 182 mg/dL (75-110); MAGNESIUM 1.7 mg/dL (1.6-2.3); PHOSPHOROUS 2.4 mg/dL (2.5-4.5); TOTAL PROTEIN 5.8 g/dL (6.3-8.3)
[2017-02-08] MEDS: (Novolin R) Insulin Human Regular 100 units/ml vial SC SCH ×4 (08:24→21:27)
[2017-02-08] MEDS: Saccharomyces Boulardi 250 mg Cap PO SCH ×2 (10:42→18:28)
[2017-02-08] MEDS: Metoprolol Succinate 100 mg XL Tab PO SCH (10:42)
--- NOTE | 2017-02-08 18:32 | PN ---
DATE: 02/08/2017 An 81-year-old male with past medical history of hypertension, diabetes, hyperlipidemia, dementia, ad mitted with right knee cellulitis and adjacent subcutaneous abscess. Nephrology consulted for acute renal failure. The patient reports having pain involving right leg. Otherwise, denies any shortness of breath. PHYSICAL EXAMINATION: VITAL SIGNS: This afternoon, blood pressure 126/63, heart rate 61, respirations 20, temperature 98.6 , O2 sat 96% on nasal cannula. GENERAL: No distress, lying comfortably in bed. HEENT: Moist mucous membranes. Nonicteric. CHEST: Clear to auscultation bilaterally. No rales or rhonchi. No wheezes. HEART: S1, S2 normal, no murmurs, no gallops, no rubs. ABDOMEN: Soft, nontender, nondistended. EXTREMITIES: No leg edema. SKIN: Warm, no cyanosis. PSYCHIATRIC: Normal mood, normal affect. LABORATORY DATA: WBC 8.1, hemoglobin 9.5, hematocrit 27.7, platelets 303. Chemistry panel: Sodium 135, potassium 3.6, chloride 106, bicarb 20, BUN 18, creatinine 1.3, glucose 182. Calcium 7.9, phosp horus 2.4, albumin 3.1. Urine protein 43, urine creatinine 76.8. Vanco trough today 14.6. ASSESSMENT: 1. Acute renal failure, acute kidney injury on chronic kidney disease stage IIIA, consistent with pr erenal etiology in the setting of being on ARB and likely having p.o. decreased intake. Renal functi on improved with IV fluids and holding diuretics. Appears euvolemic on exam. Continue to hold diure tics. 2. Chronic kidney disease, stage IIIA. Dipstick negative for protein. Repeat urine protein. Creat inine ratio just over 500 mg/gram. Will check microalbumin to creatinine ratio. If no microalbuminu parveen there is no need to be on SHABBIR inhibitor or ARB. 3. Hypertension, currently on amlodipine 10 mg daily and metoprolol XL 100 mg daily. Blood pressure fluctuating, although overall seems to be normotensive. Would avoid rigid blood pressure control in elderly male with dementia. Continue current medications. 4. Subcutaneous abscess. On IV vancomycin 1 gram daily. Vanco trough drawn today is in therapeutic range. Follow up with ID. Would continue to keep patient at lowest needed vanco dose in order to a void vanco toxicity. 5. Diabetes. Hemoglobin A1c mildly elevated for an elderly patient. Recommend to keep level less t sultana 8 in order to avoid microvascular complications associated with diabetes. Thank you for this consult. Nephrology service will sign off. Please feel free to contact us with a ny questions or concerns. Schuyler Contreras MD cc: [id number] TT: 02/08/2017 18:32:09 Confirmation # [id number] Dictation # [id number] mn
[2017-02-08 19:43] LABS: GFR AFRICAN-AMERICAN > 60
--- NOTE | 2017-02-08 20:03 | CP.PCM.PN ---
Subjective - Date & Time of Evaluation Date of Evaluation: 02/08/17 Time of Evaluation: 17:00 - Subjective Subjective: Pt sitting up in bed eating comfortably. Denies pain. Objective - Vital Signs/Intake and Output Vital Signs (last 24 hours): Temp Pulse Resp BP Pulse Ox 98.6 F 61 20 126/63 96 02/08/17 15:48 02/08/17 15:48 02/08/17 15:48 02/08/17 15:48 02/08/17 15:48 - Medications Medications: Current Medications Acetaminophen (Tylenol 325mg Tab) 650 mg PO Q6 PRN PRN Reason: Pain, moderate (4-7) Last Admin: 02/06/17 18:19 Dose: 650 mg Amlodipine Besylate (Norvasc) 10 mg PO DAILY [facility] Last Admin: 02/08/17 10:42 Dose: 10 mg Ascorbic Acid (Vitamin C 250 Mg Tab) 250 mg PO DAILY [facility] Last Admin: 02/08/17 18:29 Dose: 250 mg Aspirin (Aspirin Chewable) 81 mg PO DAILY [facility] Last Admin: 02/08/17 10:42 Dose: 81 mg Clopidogrel Bisulfate (Plavix) 75 mg PO DAILY [facility] Last Admin: 02/08/17 10:42 Dose: 75 mg Famotidine (Pepcid) 20 mg PO DAILY [facility] Ferrous Sulfate (Feosol) 325 mg PO Q12H [facility] Last Admin: 02/08/17 10:42 Dose: 325 mg Furosemide (Lasix) 20 mg PO DAILY [facility] Last Admin: 02/04/17 16:16 Dose: 20 mg Heparin Sodium (Porcine) (Heparin) 5,000 units SC Q8 [facility] Last Admin: 02/08/17 15:15 Dose: 5,000 units Vancomycin HCl 1 gm/ Sodium (Chloride) 250 mls @ 166.7 mls/hr IVPB Q24H [facility] Last Admin: 02/08/17 15:15 Dose: 166.7 mls/hr Insulin Human Regular (Novolin R) 0 unit SC ACHS [facility] PRN Reason: Protocol Last Admin: 02/08/17 17:33 Dose: Not Given Levothyroxine Sodium (Synthroid) 50 mcg PO DAILY@0630 [facility] Last Admin: 02/08/17 05:49 Dose: 50 mcg Metoprolol Succinate (Toprol Xl) 100 mg PO DAILY [facility] Last Admin: 02/08/17 10:42 Dose: 100 mg Rosuvastatin Calcium (Crestor) 5 mg PO HS [facility] Last Admin: 02/07/17 22:11 Dose: 5 mg Saccharomyces Boulardii (Florastor) 250 mg PO BID [facility] Last Admin: 02/08/17 18:28 Dose: 250 mg - Labs Labs: 02/08/17 07:59 02/08/17 19:30 PT 12.3 SECONDS (9.7-12.2) H 02/04/17 03:19 INR 1.1 02/04/17 03:19 APTT 29 SECONDS (21-34) 02/04/17 03:19 - Extremities Exam Additional comments: Right Lower Extremity: Knee: lateral surgical wound/abscess wound c/d/i, sutures in place, central open wound without any drainage or purulence, area of blanching erythema has resolved, - ttp medial wound without redness/ drainage/ swelling full ROM at knee w/o pain, full ROM at hip/knee/ankle/toes w/o pain - instability (unable to follow commands, motor exam grossly exhibited in response to painful stimuli) +5/5 motor strength hip flex/ext, knee flex/ext, ankle df/pf, toes up & down sensory intact L2-S2, DPN/TN/SPN 2+DP, BCR all toes Left Lower Extremity: -ttp, -swelling/warmth/redness, - instability full ROM at all joints w/o pain (unable to follow commands, motor exam grossly exhibited in response to painful stimuli) +5/5 motor strength hip flex/ext, knee flex/ext, ankle df/pf, toes up & down sensory intact L2-S2, DPN/TN/SPN 2+DP, BCR all toes Assessment and Plan (1) Cellulitis and abscess of right leg Assessment & Plan: 81-year-old male with multiple PMH including history of CVA, currently on Plavix , advanced dementia presented to the ER at [facility] on 02/03/17 with R knee pain, redness, drainage for 5-7 days. DX = R knee #1 lateral subcutaneous draining abscess with surrounding cellulitis #2 secondary area of cellulitis without abscess or drainage at medial aspect of knee s/p R knee lateral abscess I&D/ acquisition of cx's & bx 5/24/17 POD# 4 PLAN: R knee: -clinically, healing well, infection / abscess much improved, no evidence of collection/recurrent abscess, no extension to knee joint clinically -no indication for repeat I&D or other orthopedic surgical intervention at this point in time -dry dressing change daily -instructed nursing staff to help pt shower daily and irrigate wound area while sitting in shower, no scrub or treatment to wound needed, just irrigation with shower water, pat dry with sterile gauze, place new sterile gauze dressing and aaksah wrap daily -cx's from OR = MRSA -continue IV abx / vanco per ID consult, follow with ID for long-term tx plan -continue PICC line care -ok for dc to facility vs home with services from point of view, continue above wound care as outpt or at facility/[facility], followup at [facility] [phone] within 1 week upon dc -WBAT, oob as much as possible -physical therapy= ambulation, transfers, no restrictions, use knee immobilizer as needed for support for safe ambulation, ambulation with assist devices/walker -pt on plavix and ASA, on Heparin 5000 for DVT proph as well, -continue DVT proph per medical team unless contraindicated in setting of Plavix and ASA -will follow -please contact me directly with any questions, updates, concerns, thank you for allowing me to contribute in the care of your patient Mila Pineda MD Orthopedic Surgery Status: Acute
--- NOTE | 2017-02-09 00:32 | CP.PCM.PN ---
<ElieniteshMarcelino claros - Last Filed: 02/09/17 00:32> Subjective - Date & Time of Evaluation Date of Evaluation: 02/09/17 Time of Evaluation: 00:31 - Subjective Subjective: PGY-1 Medicine Progress Note for Dr. Menchaca Pt seen and examined at bedside. No acute event overnight. Patient is POD#5 s/p I&D r knee abscess. Patient is in bed resting comfortably. No complaints at this time. Tolerating diet and having normal BMs. Denies fevers/chills, cp, sob abd pain, n/v/d. Awaiting authorization for rehab placement. Objective - Vital Signs/Intake and Output Vital Signs (last 24 hours): Temp Pulse Resp BP Pulse Ox 98.6 F 61 20 126/63 96 02/08/17 15:48 02/08/17 15:48 02/08/17 15:48 02/08/17 15:48 02/08/17 15:48 Intake and Output: 02/08/17 02/09/17 18:59 06:59 Intake Total 650 Balance 650 - Medications Medications: Current Medications Acetaminophen (Tylenol 325mg Tab) 650 mg PO Q6 PRN PRN Reason: Pain, moderate (4-7) Last Admin: 02/06/17 18:19 Dose: 650 mg Amlodipine Besylate (Norvasc) 10 mg PO DAILY [facility] Last Admin: 02/08/17 10:42 Dose: 10 mg Ascorbic Acid (Vitamin C 250 Mg Tab) 250 mg PO DAILY [facility] Last Admin: 02/08/17 18:29 Dose: 250 mg Aspirin (Aspirin Chewable) 81 mg PO DAILY [facility] Last Admin: 02/08/17 10:42 Dose: 81 mg Clopidogrel Bisulfate (Plavix) 75 mg PO DAILY [facility] Last Admin: 02/08/17 10:42 Dose: 75 mg Famotidine (Pepcid) 20 mg PO DAILY [facility] Ferrous Sulfate (Feosol) 325 mg PO Q12H [facility] Last Admin: 02/08/17 21:20 Dose: 325 mg Furosemide (Lasix) 20 mg PO DAILY [facility] Last Admin: 02/04/17 16:16 Dose: 20 mg Heparin Sodium (Porcine) (Heparin) 5,000 units SC Q8 [facility] Last Admin: 02/08/17 21:21 Dose: 5,000 units Vancomycin HCl 1 gm/ Sodium (Chloride) 250 mls @ 166.7 mls/hr IVPB Q24H [facility] Last Admin: 02/08/17 15:15 Dose: 166.7 mls/hr Insulin Human Regular (Novolin R) 0 unit SC ACHS [facility] PRN Reason: Protocol Last Admin: 02/08/17 21:27 Dose: 3 unit Levothyroxine Sodium (Synthroid) 50 mcg PO DAILY@0630 [facility] Last Admin: 02/08/17 05:49 Dose: 50 mcg Metoprolol Succinate (Toprol Xl) 100 mg PO DAILY [facility] Last Admin: 02/08/17 10:42 Dose: 100 mg Rosuvastatin Calcium (Crestor) 5 mg PO HS [facility] Last Admin: 02/08/17 21:21 Dose: 5 mg Saccharomyces Boulardii (Florastor) 250 mg PO BID [facility] Last Admin: 02/08/17 18:28 Dose: 250 mg - Labs Labs: 02/08/17 07:59 02/08/17 19:30 PT 12.3 SECONDS (9.7-12.2) H 02/04/17 03:19 INR 1.1 02/04/17 03:19 APTT 29 SECONDS (21-34) 02/04/17 03:19 - Constitutional Appears: Non-toxic, No Acute Distress - Head Exam Head Exam: ATRAUMATIC, NORMOCEPHALIC - Eye Exam Eye Exam: EOMI, Normal appearance Pupil Exam: PERRL - ENT Exam ENT Exam: Mucous Membranes Moist - Neck Exam Neck Exam: Normal Inspection - Respiratory Exam Respiratory Exam: Clear to Ausculation Bilateral, NORMAL BREATHING PATTERN - Cardiovascular Exam Cardiovascular Exam: REGULAR RHYTHM, +S1, +S2 - GI/Abdominal Exam GI & Abdominal Exam: Soft, Normal Bowel Sounds. absent: Tenderness - Extremities Exam Extremities Exam: Normal Capillary Refill. absent: Pedal Edema Additional comments: knee immobilizer on rle - Back Exam Back Exam: absent: CVA tenderness (L), CVA tenderness (R) - Neurological Exam Neurological Exam: Alert, Awake, CN II-XII Intact - Psychiatric Exam Psychiatric exam: Normal Affect, Normal Mood - Skin Skin Exam: Dry, Intact, Normal Color, Warm Assessment and Plan - Assessment and Plan (Free Text) Plan: 1. Right Knee Pain; Cellulitis and Abscess; rule out osteomyelitis vs. septic arthritis POD#5: s/p Irrigation and debridement abscess; cellulitis Continued Vancomycin 1gram IV Q24 hours; switched on 11/09 from Q12 to Q24 hours vancomycin trough 18.9 per ID Infectious disease consult. Dr. Langford. elan appreciated -> recommended for Vancomycin 1 gram IV Q24 hours for 7 days (patient can receive in rehab if placed) continue florastor 250 mg PO bid Ortho (Dr. Segura) on the case consult. recs appreciated. Wound culture: MRSA prior OR; post-OR 02/04: MRSA+ (sensitive to vancomycin) MRI shows extensive swelling compatible with cellulitis. no evidence of abscess (please see full report)-->to be addendum--> 1.5 cm x 1 cm abscess at the lateral aspect of the knee that is subcutaneous with no visible extension to the knee joint and is in fact extra-articular (discussed between radiology and orthopedic) right knee x ray negative Preoperative note: Right knee #1 lateral extra-articular subcutaneous draining abscess. #2 lateral and medial cellulitis. Operation Performed: Right knee #1 I &D of lateral abscess. #2 acquisition of cultures and Bx. #3 placement of packing. Specimen/Specimens Removed: Cx's x3 swabs, Cx's x1 abscess tissue, AFB & fungus sent to micro 2. Testicular lesions testicular us shows small area heterogeneous echotexture lower pole of left testicle, no evidence of epididymo-orchitis, right testicular cyst, inflammatory changes, no abscess continue to monitor urology consult. Dr. Leal. elan appreciated-->no lesion noted on his exam, recommended for either dermatology or outpatient follow-up 3. History of hypertension Norvasc 10mg PO daily Toproxl XL 100mg PO daily monitor vitals 4. History of hyperlipidemia continue to monitor will restart home lipitor>> changed to crestor 5 mg PO HS 5. Acute Renal insufficiency Nephrology (Dr. Bates) on board-->help appreciated insulin sliding scale subcutaneous Discontinued IV fluids 6. history of cerebrovascular accident Asa 81 mg po daily and Plavix 75 mg po daily Blood pressure control 7. Iron deficiency anemia feosol 325 mg PO daily 8. Gastrointestinal and deep vein thrombosis prophylaxis Pepcid 20mg IV daily scds b/l Heparin 5000 units sc Q8H Disp: Continue IV abx for 7 days (4/7 days complete) dc to facility or home with services from ortho point of view continue above wound care as outpt or at facility/[facility], followup at [facility], [facility] [phone] within 1 week WBAT, oob as much as possible physical therapy= ambulation, transfers, no restrictions, use knee immobilizer as needed for support for safe ambulation, ambulation with assist devices/walker pt on plavix and ASA, on Heparin 5000 for DVT proph as well, <Gladys Menchaca V - Last Filed: 02/09/17 09:44> Objective - Vital Signs/Intake and Output Vital Signs (last 24 hours): Temp Pulse Resp BP Pulse Ox 97.9 F 63 20 135/70 98 02/09/17 07:17 02/09/17 07:17 02/09/17 07:17 02/09/17 07:17 02/09/17 07:17 Intake and Output: 02/09/17 02/09/17 06:59 18:59 Intake Total 830 Balance 830 - Medications Medications: Current Medications Acetaminophen (Tylenol 325mg Tab) 650 mg PO Q6 PRN PRN Reason: Pain, moderate (4-7) Last Admin: 02/06/17 18:19 Dose: 650 mg Amlodipine Besylate (Norvasc) 10 mg PO DAILY [facility] Last Admin: 02/08/17 10:42 Dose: 10 mg Ascorbic Acid (Vitamin C 250 Mg Tab) 250 mg PO DAILY [facility] Last Admin: 02/08/17 18:29 Dose: 250 mg Aspirin (Aspirin Chewable) 81 mg PO DAILY [facility] Last Admin: 02/08/17 10:42 Dose: 81 mg Clopidogrel Bisulfate (Plavix) 75 mg PO DAILY [facility] Last Admin: 02/08/17 10:42 Dose: 75 mg Famotidine (Pepcid) 20 mg PO DAILY [facility] Ferrous Sulfate (Feosol) 325 mg PO Q12H [facility] Last Admin: 02/08/17 21:20 Dose: 325 mg Heparin Sodium (Porcine) (Heparin) 5,000 units SC Q8 [facility] Last Admin: 02/09/17 05:40 Dose: 5,000 units Vancomycin HCl 1 gm/ Sodium (Chloride) 250 mls @ 166.7 mls/hr IVPB Q24H [facility] Last Admin: 02/08/17 15:15 Dose: 166.7 mls/hr Sodium Chloride (Sodium Chloride 0.9%) 1,000 mls @ 50 mls/hr IV .Q20H [facility] Insulin Human Regular (Novolin R) 0 unit SC ACHS [facility] PRN Reason: Protocol Last Admin: 02/09/17 08:04 Dose: 1 unit Levothyroxine Sodium (Synthroid) 50 mcg PO DAILY@0630 [facility] Last Admin: 02/09/17 05:41 Dose: 50 mcg Metoprolol Succinate (Toprol Xl) 100 mg PO DAILY [facility] Last Admin: 02/08/17 10:42 Dose: 100 mg Rosuvastatin Calcium (Crestor) 5 mg PO HS [facility] Last Admin: 02/08/17 21:21 Dose: 5 mg Saccharomyces Boulardii (Florastor) 250 mg PO BID [facility] Last Admin: 02/08/17 18:28 Dose: 250 mg - Labs Labs: 02/09/17 06:11 02/09/17 06:11 PT 12.3 SECONDS (9.7-12.2) H 02/04/17 03:19 INR 1.1 02/04/17 03:19 APTT 29 SECONDS (21-34) 02/04/17 03:19 Attending/Attestation - Attestation I have personally seen and examined this patient.: Yes I have fully participated in the care of the patient.: Yes I have reviewed all pertinent clinical information, including history, physical exam and plan: Yes Notes (Text): Patient seen, examined, and case discussed with day-time resident. Patient seen at bedside. Patient denies acute complaints. Discussed with ID, recommended for 7 days of Vancomycin 1 gram IV 24 hours total (Day 4 out of 7 today) in light of final knee cultures showing MRSA and is on mild hydration (NS 50cc/hr). Patient is awaiting authorization for rehab placement. 1. Right Knee Pain; Cellulitis and Abscess * POD#5: s/p ID abscess; cellulitis * Continued Vancomycin 1gram IV Q24 hours; switched on 11/09 from Q12 to Q24 hours vanc trough 18.9 per ID * ID consult. Dr. Langford. recs appreciated -> recommended for Vancomycin 1 gram IV Q24 hours for 7 days (patient can receive in rehab if placed) * start florastor 250 bid * Ortho (Dr. Segura) on the case consult. recs appreciated. * NS 100cc/hr * Wound culture: MRSA prior OR; post-OR02/04: MRSA+ (sensitive to vanc) * MRI shows extensive swelling compatible with cellulitis. no evidence of abscess (please see full report)-->to be addendum--> 1.5 cm x 1 cm abscess at the lateral aspect of the knee that is subcutaneous with no visible extension to the knee joint and is in fact extra-articular (discussed between radiology and orthopedic) * right knee x ray negative * Preoperative note: Right knee #1 lateral extra-articular subcutaneous draining abscess. #2 lateral and medial cellulitis. Operation Performed: Right knee #1 I&D of lateral abscess. #2 acquisition of cultures and Bx. #3 placement of packing. Specimen/Specimens Removed: Cx's x3 swabs, Cx's x1 abscess tissue, AFB & fungus sent to micro 2. Testicular lesions * testicular us shows small area heterogeneous echotexture lower pole of left testicle, no evidence of epididymo-orchitis, right testicular cyst, inflammatory changes, no abscess * continue to monitor * urology consult. Dr. Leal. recs appreciated-->no lesion noted on his exam, recommended for either dermatology or outpatient follow-up 3. Hyperkalemia * kayexalate given in er, will continue to monitor * Resolved 4. Hx of HTN * Norvasc 10mg PO daily * Toproxl XL 100mg PO daily * monitor vitals 5. Hx of HLD * continue to monitor * will restart home lipitor>> changed to crestor 5 mg PO HS 6. Acute Renal insufficiency * Nephrology (Dr. Bates) on board-->help appreciated * insulin sliding scale subq * Monitor BUN/Cr * NS 50cc/hr 7. hx of CVA * Asa 81 mg po daily and Plavix 75 mg po daily * Blood pressure control 8. GI/DVT ppx * Pepcid 20mg PO daily * scds b/l * Heparin 5000 units subq 12 hours. Dispo: Will need IV abx for 7 days total (Day 4/7, for rehab placement. Awaiting rehab placement. Awaiting authorization from insurance. dc to facility or home with services from ortho point of view Recommendation by orthopedic include: continue above wound care as outpt or at facility/[facility], followup at [facility], [facility] [phone] within 1 week WBAT, oob as much as possible physical therapy= ambulation, transfers, no restrictions, use knee immobilizer as needed for support for safe ambulation, ambulation with assist devices/walker pt on plavix and ASA, on Heparin 5000 for DVT proph.
[2017-02-09] MEDS: Levothyroxine 50 MCG TAB PO SCH (05:41)
[2017-02-09 06:28] LABS: CHLORIDE 104 mmol/L (98-107)
[2017-02-09 06:29] LABS: POTASSIUM 3.7 mmol/L (3.6-5.2); SODIUM 135 mmol/L (132-148)
[2017-02-09 06:31] LABS: ALB/GLOB RATIO 1.2 (1.0-2.1); ALKALINE PHOSPHATASE 63 U/L (38-126); AST/SGOT 27 U/L (17-59); BILIRUBIN,TOTAL 0.4 mg/dL (0.2-1.3); BLOOD UREA NITROGEN 21 mg/dL (9-20); CARBON DIOXIDE 21 mmol/L (22-30); GFR AFRICAN-AMERICAN > 60; TOTAL PROTEIN 5.9 g/dL (6.3-8.3)
[2017-02-09 06:32] LABS: ALT/SGPT 17 U/L (21-72); CALCIUM 8.4 mg/dl (8.6-10.4); GLUCOSE,RANDOM 146 mg/dL (75-110); MAGNESIUM 1.6 mg/dL (1.6-2.3); PHOSPHOROUS 2.7 mg/dL (2.5-4.5)
[2017-02-09 06:57] LABS: BASO # 0.1 K/uL (0.0-0.2); BASO % 1.1 % (0.0-2.0); EOS # 0.7 K/uL (0.0-0.7); EOS % 7.3 % (0.0-4.0); HEMATOCRIT 27.4 % (35.0-51.0); LYMPH # 2.9 K/uL (1.0-4.3); LYMPH % 29.6 % (20.0-40.0); MEAN CELL VOLUME 81.2 fL (80.0-94.0); MEAN CORPUSCULAR HEMOGLOBIN 27.7 pg (27.0-31.0); MEAN CORPUSCULAR HGB CONC 34.1 g/dL (33.0-37.0); MEAN PLATELET VOLUME 8.7 fL (7.2-11.7); MONO # 0.9 K/uL (0.0-0.8); NRBC % 0.1 % (0.0-2.0); RED CELL DISTRIBUTION WIDTH 13.8 % (11.5-14.5); WHITE BLOOD COUNT 9.9 K/uL (4.8-10.8)
[2017-02-09] MEDS: (Novolin R) Insulin Human Regular 100 units/ml vial SC SCH ×4 (08:04→22:00)
[2017-02-09] MEDS: Saccharomyces Boulardi 250 mg Cap PO SCH ×2 (10:53→17:06)
[2017-02-09] MEDS: Metoprolol Succinate 100 mg XL Tab PO SCH (10:54)
[2017-02-09] MEDS: Sodium Chloride 0.9% 1,000 ML IV SCH (10:58)
[2017-02-10] MEDS: Levothyroxine 50 MCG TAB PO SCH (05:35)
[2017-02-10] MEDS: Sodium Chloride 0.9% 1,000 ML IV SCH (05:36)
[2017-02-10 07:09] LABS: BASO # 0.1 K/uL (0.0-0.2); BASO % 1.2 % (0.0-2.0); EOS # 0.6 K/uL (0.0-0.7); EOS % 6.8 % (0.0-4.0); HEMATOCRIT 28.4 % (35.0-51.0); LYMPH # 2.9 K/uL (1.0-4.3); LYMPH % 30.3 % (20.0-40.0); MEAN CELL VOLUME 81.8 fL (80.0-94.0); MEAN CORPUSCULAR HEMOGLOBIN 27.3 pg (27.0-31.0); MEAN CORPUSCULAR HGB CONC 33.4 g/dL (33.0-37.0); MEAN PLATELET VOLUME 8.6 fL (7.2-11.7); MONO # 0.8 K/uL (0.0-0.8); MONO % 8.6 % (0.0-10.0); NRBC % 0.1 % (0.0-2.0); WHITE BLOOD COUNT 9.6 K/uL (4.8-10.8)
[2017-02-10 07:22] LABS: CHLORIDE 105 mmol/L (98-107); SODIUM 136 mmol/L (132-148)
[2017-02-10 07:24] LABS: ALB/GLOB RATIO 1.1 (1.0-2.1); ALKALINE PHOSPHATASE 61 U/L (38-126); AST/SGOT 37 U/L (17-59); BILIRUBIN,TOTAL 0.4 mg/dL (0.2-1.3); CARBON DIOXIDE 21 mmol/L (22-30); GFR AFRICAN-AMERICAN > 60; TOTAL PROTEIN 6.2 g/dL (6.3-8.3)
[2017-02-10 07:25] LABS: ALT/SGPT 27 U/L (21-72); BLOOD UREA NITROGEN 21 mg/dL (9-20); CALCIUM 8.5 mg/dl (8.6-10.4); GLUCOSE,RANDOM 159 mg/dL (75-110); MAGNESIUM 1.7 mg/dL (1.6-2.3); PHOSPHOROUS 2.5 mg/dL (2.5-4.5)
[2017-02-10] MEDS: (Novolin R) Insulin Human Regular 100 units/ml vial SC SCH ×4 (08:17→21:29)
[2017-02-10] MEDS: Metoprolol Succinate 100 mg XL Tab PO SCH (10:20)
[2017-02-10] MEDS: Saccharomyces Boulardi 250 mg Cap PO SCH ×2 (10:20→17:21)
--- NOTE | 2017-02-10 11:34 | CP.PCM.PN ---
<Rober Cervantes - Last Filed: 02/10/17 11:36> Subjective - Date & Time of Evaluation Date of Evaluation: 02/10/17 Time of Evaluation: 11:30 - Subjective Subjective: Medicine progress note. Attending: Dr. Vaughn Pt seen and examined at bedside. No acute distress. No events overnight. Pt complains of no pain, no fevers, chills, vomiting, diarrhea. On day 01/18 abx. Objective - Vital Signs/Intake and Output Vital Signs (last 24 hours): Temp Pulse Resp BP Pulse Ox 98.0 F 66 18 151/63 H 96 02/10/17 10:46 02/10/17 10:46 02/10/17 10:46 02/10/17 10:46 02/10/17 10:46 Intake and Output: 02/10/17 02/10/17 06:59 18:59 Intake Total 1390 500 Output Total 400 Balance 990 500 - Medications Medications: Current Medications Acetaminophen (Tylenol 325mg Tab) 650 mg PO Q6 PRN PRN Reason: Pain, moderate (4-7) Last Admin: 02/06/17 18:19 Dose: 650 mg Amlodipine Besylate (Norvasc) 10 mg PO DAILY [facility] Last Admin: 02/10/17 10:20 Dose: 10 mg Ascorbic Acid (Vitamin C 250 Mg Tab) 250 mg PO DAILY [facility] Last Admin: 02/10/17 10:20 Dose: 250 mg Aspirin (Aspirin Chewable) 81 mg PO DAILY [facility] Last Admin: 02/10/17 10:20 Dose: 81 mg Clopidogrel Bisulfate (Plavix) 75 mg PO DAILY [facility] Last Admin: 02/10/17 10:20 Dose: 75 mg Famotidine (Pepcid) 20 mg PO DAILY [facility] Last Admin: 02/10/17 10:20 Dose: 20 mg Ferrous Sulfate (Feosol) 325 mg PO Q12H [facility] Last Admin: 02/10/17 10:20 Dose: 325 mg Heparin Sodium (Porcine) (Heparin) 5,000 units SC Q8 [facility] Last Admin: 02/10/17 05:35 Dose: 5,000 units Vancomycin HCl 1 gm/ Sodium (Chloride) 250 mls @ 166.7 mls/hr IVPB Q24H [facility] Last Admin: 02/09/17 14:06 Dose: 166.7 mls/hr Sodium Chloride (Sodium Chloride 0.9%) 1,000 mls @ 50 mls/hr IV .Q20H [facility] Last Admin: 02/10/17 05:36 Dose: 50 mls/hr Insulin Human Regular (Novolin R) 0 unit SC ACHS [facility] PRN Reason: Protocol Last Admin: 02/10/17 08:17 Dose: 2 unit Levothyroxine Sodium (Synthroid) 50 mcg PO DAILY@0630 [facility] Last Admin: 02/10/17 05:35 Dose: 50 mcg Metoprolol Succinate (Toprol Xl) 100 mg PO DAILY [facility] Last Admin: 02/10/17 10:20 Dose: 100 mg Rosuvastatin Calcium (Crestor) 5 mg PO HS [facility] Last Admin: 02/09/17 21:09 Dose: 5 mg Saccharomyces Boulardii (Florastor) 250 mg PO BID [facility] Last Admin: 02/10/17 10:20 Dose: 250 mg - Labs Labs: 02/10/17 06:46 02/10/17 06:46 PT 12.3 SECONDS (9.7-12.2) H 02/04/17 03:19 INR 1.1 02/04/17 03:19 APTT 29 SECONDS (21-34) 02/04/17 03:19 - Constitutional Appears: Non-toxic, No Acute Distress - Head Exam Head Exam: ATRAUMATIC, NORMAL INSPECTION, NORMOCEPHALIC - Eye Exam Eye Exam: EOMI - ENT Exam ENT Exam: Mucous Membranes Moist - Neck Exam Neck Exam: Full ROM, Normal Inspection - Respiratory Exam Respiratory Exam: NORMAL BREATHING PATTERN. absent: Respiratory Distress - Cardiovascular Exam Cardiovascular Exam: +S1, +S2 - GI/Abdominal Exam GI & Abdominal Exam: Soft, Normal Bowel Sounds. absent: Tenderness - Extremities Exam Additional comments: Right knee wrapped with aakash, reduced range of motion, knee immobilizer off - Back Exam Back Exam: NORMAL INSPECTION - Neurological Exam Neurological Exam: Alert, Awake, Oriented x3 - Psychiatric Exam Psychiatric exam: Flat Affect - Skin Skin Exam: Dry, Intact, Normal Color, Warm Assessment and Plan - Assessment and Plan (Free Text) Assessment: 1. Right Knee Pain; Cellulitis and Abscess; rule out osteomyelitis vs. septic arthritis POD#6: s/p Irrigation and debridement abscess; cellulitis Continued Vancomycin 1gram IV Q24 hours; switched on 11/09 from Q12 to Q24 hours vancomycin trough 18.9 per ID Infectious disease consult. Dr. Langford. sherins appreciated -> recommended for Vancomycin 1 gram IV Q24 hours for 7 days (patient can receive in rehab if placed) continue florastor 250 mg PO bid Ortho (Dr. Segura) on the case consult. recs appreciated. Wound culture: MRSA prior OR; post-OR 02/04: MRSA+ (sensitive to vancomycin) MRI shows extensive swelling compatible with cellulitis. no evidence of abscess (please see full report)-->to be addendum--> 1.5 cm x 1 cm abscess at the lateral aspect of the knee that is subcutaneous with no visible extension to the knee joint and is in fact extra-articular (discussed between radiology and orthopedic) right knee x ray negative Preoperative note: Right knee #1 lateral extra-articular subcutaneous draining abscess. #2 lateral and medial cellulitis. Operation Performed: Right knee #1 I &D of lateral abscess. #2 acquisition of cultures and Bx. #3 placement of packing. Specimen/Specimens Removed: Cx's x3 swabs, Cx's x1 abscess tissue, AFB & fungus sent to micro 2. Testicular lesions testicular us shows small area heterogeneous echotexture lower pole of left testicle, no evidence of epididymo-orchitis, right testicular cyst, inflammatory changes, no abscess continue to monitor urology consult. Dr. Leal. recs appreciated-->no lesion noted on his exam, recommended for either dermatology or outpatient follow-up 3. History of hypertension Norvasc 10mg PO daily Toproxl XL 100mg PO daily monitor vitals 4. History of hyperlipidemia continue to monitor will restart home lipitor>> changed to crestor 5 mg PO HS 5. Acute Renal insufficiency Nephrology (Dr. Bates) on board-->help appreciated IV fluids NS 50 cc/hr 6. history of cerebrovascular accident Asa 81 mg po daily and Plavix 75 mg po daily Blood pressure control 7. Iron deficiency anemia feosol 325 mg PO daily 8. Gastrointestinal and deep vein thrombosis prophylaxis Pepcid 20mg IV daily scds b/l Heparin 5000 units sc Q8H Disp: Continue IV abx for 7 days (5/7 days complete) dc to facility or home with services from ortho point of view continue above wound care as outpt or at facility/[facility], followup at [facility], [facility] [phone] within 1 week Weight bearing as tolerated, out of bed as much as possible physical therapy= ambulation, transfers, no restrictions, use knee immobilizer as needed for support for safe ambulation, ambulation with assist devices/walker pt on plavix and ASA, on Heparin 5000 q 8 hrs for DVT prophylaxis as well discussed with Dr. Vaughn <Rafael Vaughn H - Last Filed: 02/11/17 07:46> Objective - Vital Signs/Intake and Output Vital Signs (last 24 hours): Temp Pulse Resp BP Pulse Ox 97.9 F 58 L 20 130/65 95 02/11/17 00:00 02/11/17 00:00 02/11/17 00:00 02/11/17 00:00 02/11/17 00:00 Intake and Output: 02/11/17 02/11/17 06:59 18:59 Intake Total 1400 Output Total 1500 Balance -100 - Medications Medications: Current Medications Acetaminophen (Tylenol 325mg Tab) 650 mg PO Q6 PRN PRN Reason: Pain, moderate (4-7) Last Admin: 02/06/17 18:19 Dose: 650 mg Amlodipine Besylate (Norvasc) 10 mg PO DAILY [facility] Last Admin: 02/10/17 10:20 Dose: 10 mg Ascorbic Acid (Vitamin C 250 Mg Tab) 250 mg PO DAILY [facility] Last Admin: 02/10/17 10:20 Dose: 250 mg Aspirin (Aspirin Chewable) 81 mg PO DAILY [facility] Last Admin: 02/10/17 10:20 Dose: 81 mg Clopidogrel Bisulfate (Plavix) 75 mg PO DAILY [facility] Last Admin: 02/10/17 10:20 Dose: 75 mg Famotidine (Pepcid) 20 mg PO DAILY [facility] Last Admin: 02/10/17 10:20 Dose: 20 mg Ferrous Sulfate (Feosol) 325 mg PO Q12H [facility] Last Admin: 02/10/17 21:26 Dose: 325 mg Vancomycin HCl 1 gm/ Sodium (Chloride) 250 mls @ 166.7 mls/hr IVPB Q24H [facility] Last Admin: 02/10/17 14:40 Dose: 166.7 mls/hr Sodium Chloride (Sodium Chloride 0.9%) 1,000 mls @ 50 mls/hr IV .Q20H [facility] Last Admin: 02/11/17 01:45 Dose: Not Given Insulin Human Regular (Novolin R) 0 unit SC ACHS [facility] PRN Reason: Protocol Last Admin: 02/10/17 21:29 Dose: Not Given Levothyroxine Sodium (Synthroid) 50 mcg PO DAILY@0630 [facility] Last Admin: 02/11/17 06:19 Dose: 50 mcg Metoprolol Succinate (Toprol Xl) 100 mg PO DAILY [facility] Last Admin: 02/10/17 10:20 Dose: 100 mg Rosuvastatin Calcium (Crestor) 5 mg PO HS [facility] Last Admin: 02/10/17 21:25 Dose: 5 mg Saccharomyces Boulardii (Florastor) 250 mg PO BID [facility] Last Admin: 02/10/17 17:21 Dose: 250 mg - Labs Labs: 02/11/17 07:13 02/10/17 06:46 PT 12.3 SECONDS (9.7-12.2) H 02/04/17 03:19 INR 1.1 02/04/17 03:19 APTT 29 SECONDS (21-34) 02/04/17 03:19 Attending/Attestation - Attestation I have personally seen and examined this patient.: Yes I have fully participated in the care of the patient.: Yes I have reviewed all pertinent clinical information, including history, physical exam and plan: Yes Notes (Text): 02/11/17 07:45 Medical Attending: Patient was seen and examined by me. Agree with the above note by the resident. He was not in any acute distress when we saw him. He denied chest pain or shortness of breath, denied abdominal pain. He reported pain in legs/knee was controlled The patient is currently pending placement at this time. Rafael Vaughn
[2017-02-11] MEDS: Sodium Chloride 0.9% 1,000 ML IV SCH ×2 (01:45→21:50)
[2017-02-11] MEDS: Levothyroxine 50 MCG TAB PO SCH (06:19)
[2017-02-11 07:30] LABS: BASO # 0.2 K/uL (0.0-0.2); BASO % 2.1 % (0.0-2.0); EOS # 0.7 K/uL (0.0-0.7); EOS % 7.5 % (0.0-4.0); HEMATOCRIT 26.8 % (35.0-51.0); LYMPH # 2.6 K/uL (1.0-4.3); LYMPH % 29.5 % (20.0-40.0); MEAN CELL VOLUME 80.8 fL (80.0-94.0); MEAN CORPUSCULAR HGB CONC 34.6 g/dL (33.0-37.0); MEAN PLATELET VOLUME 8.5 fL (7.2-11.7); MONO # 0.8 K/uL (0.0-0.8); MONO % 8.8 % (0.0-10.0); NRBC % 0.1 % (0.0-2.0); RED CELL DISTRIBUTION WIDTH 13.7 % (11.5-14.5)
[2017-02-11 07:48] LABS: CHLORIDE 105 mmol/L (98-107)
[2017-02-11 07:49] LABS: POTASSIUM 3.9 mmol/L (3.6-5.2); SODIUM 136 mmol/L (132-148)
[2017-02-11 07:51] LABS: AST/SGOT 35 U/L (17-59); BILIRUBIN,TOTAL 0.4 mg/dL (0.2-1.3); CARBON DIOXIDE 22 mmol/L (22-30); GFR AFRICAN-AMERICAN > 60
[2017-02-11 07:52] LABS: ALB/GLOB RATIO 1.2 (1.0-2.1); ALKALINE PHOSPHATASE 57 U/L (38-126); ALT/SGPT 25 U/L (21-72); BLOOD UREA NITROGEN 22 mg/dL (9-20); CALCIUM 8.5 mg/dl (8.6-10.4); GLUCOSE,RANDOM 176 mg/dL (75-110); MAGNESIUM 1.6 mg/dL (1.6-2.3); PHOSPHOROUS 2.9 mg/dL (2.5-4.5)
[2017-02-11] MEDS: (Novolin R) Insulin Human Regular 100 units/ml vial SC SCH ×4 (09:08→21:44)
[2017-02-11] MEDS: Saccharomyces Boulardi 250 mg Cap PO SCH ×2 (09:46→18:01)
[2017-02-11] MEDS: Metoprolol Succinate 100 mg XL Tab PO SCH (09:48)
--- NOTE | 2017-02-11 12:33 | CP.PCM.PN ---
Subjective - Date & Time of Evaluation Date of Evaluation: 02/11/17 Time of Evaluation: 12:24 - Subjective Subjective: Patient states he has pain all the time in his right knee. Denies numbness/ tingling. Objective - Vital Signs/Intake and Output Vital Signs (last 24 hours): Temp Pulse Resp BP Pulse Ox 97.8 F 79 18 195/81 H 97 02/11/17 07:00 02/11/17 10:00 02/11/17 07:00 02/11/17 10:00 02/11/17 07:00 Intake and Output: 02/11/17 02/11/17 06:59 18:59 Intake Total 1400 Output Total 1500 Balance -100 - Medications Medications: Current Medications Acetaminophen (Tylenol 325mg Tab) 650 mg PO Q6 PRN PRN Reason: Pain, moderate (4-7) Last Admin: 02/06/17 18:19 Dose: 650 mg Amlodipine Besylate (Norvasc) 10 mg PO DAILY [facility] Last Admin: 02/11/17 09:48 Dose: 10 mg Ascorbic Acid (Vitamin C 250 Mg Tab) 250 mg PO DAILY [facility] Last Admin: 02/11/17 09:47 Dose: 250 mg Aspirin (Aspirin Chewable) 81 mg PO DAILY [facility] Last Admin: 02/11/17 09:48 Dose: 81 mg Clopidogrel Bisulfate (Plavix) 75 mg PO DAILY [facility] Last Admin: 02/11/17 09:48 Dose: 75 mg Famotidine (Pepcid) 20 mg PO DAILY [facility] Last Admin: 02/11/17 09:48 Dose: 20 mg Ferrous Sulfate (Feosol) 325 mg PO Q12H [facility] Last Admin: 02/11/17 09:47 Dose: 325 mg Vancomycin HCl 1 gm/ Sodium (Chloride) 250 mls @ 166.7 mls/hr IVPB Q24H [facility] Last Admin: 02/10/17 14:40 Dose: 166.7 mls/hr Sodium Chloride (Sodium Chloride 0.9%) 1,000 mls @ 50 mls/hr IV .Q20H [facility] Last Admin: 02/11/17 01:45 Dose: Not Given Insulin Human Regular (Novolin R) 0 unit SC ACHS [facility] PRN Reason: Protocol Last Admin: 02/11/17 09:08 Dose: 1 unit Levothyroxine Sodium (Synthroid) 50 mcg PO DAILY@0630 [facility] Last Admin: 02/11/17 06:19 Dose: 50 mcg Metoprolol Succinate (Toprol Xl) 100 mg PO DAILY [facility] Last Admin: 02/11/17 09:48 Dose: 100 mg Rosuvastatin Calcium (Crestor) 5 mg PO HS [facility] Last Admin: 02/10/17 21:25 Dose: 5 mg Saccharomyces Boulardii (Florastor) 250 mg PO BID [facility] Last Admin: 02/11/17 09:46 Dose: 250 mg - Labs Labs: 02/11/17 07:13 02/11/17 07:13 PT 12.3 SECONDS (9.7-12.2) H 02/04/17 03:19 INR 1.1 02/04/17 03:19 APTT 29 SECONDS (21-34) 02/04/17 03:19 - Extremities Exam Additional comments: Right knee: I&D incision scant sang drainage. No collection appreciated. Healing well. Site is healing well, some fibrinous exudate, but also skin edges slightly macerated from xeroform, so dry telfa only applied. Cellulitis completely resolved. No erythema. medial wound healed. Assessment and Plan (1) Cellulitis and abscess of right leg Assessment & Plan: 1 week s/p I&D right leg abscess and cellullitis -ortho stable for d/c -daily dressing changes, showering as per Dr. Rodriguez, dry dressing -f/u in office 1 week call for appointment -d/w Dr. Rodriguez, agrees with above Status: Acute
--- NOTE | 2017-02-11 14:04 | CP.PCM.PN ---
<Rober Cervantes - Last Filed: 02/11/17 14:04> Subjective - Date & Time of Evaluation Date of Evaluation: 02/11/17 Time of Evaluation: 14:00 - Subjective Subjective: Med progress note. Attending: Dr. Vaughn Pt seen and examined at bedside. No acute distress. No events overnight. Pt denies fevers, chills, vomiting, diarrhea, cp, sob. Objective - Vital Signs/Intake and Output Vital Signs (last 24 hours): Temp Pulse Resp BP Pulse Ox 97.8 F 79 18 195/81 H 97 02/11/17 07:00 02/11/17 10:00 02/11/17 07:00 02/11/17 10:00 02/11/17 07:00 Intake and Output: 02/11/17 02/11/17 06:59 18:59 Intake Total 1400 Output Total 1500 Balance -100 - Medications Medications: Current Medications Acetaminophen (Tylenol 325mg Tab) 650 mg PO Q6 PRN PRN Reason: Pain, moderate (4-7) Last Admin: 02/06/17 18:19 Dose: 650 mg Amlodipine Besylate (Norvasc) 10 mg PO DAILY [facility] Last Admin: 02/11/17 09:48 Dose: 10 mg Ascorbic Acid (Vitamin C 250 Mg Tab) 250 mg PO DAILY [facility] Last Admin: 02/11/17 09:47 Dose: 250 mg Aspirin (Aspirin Chewable) 81 mg PO DAILY [facility] Last Admin: 02/11/17 09:48 Dose: 81 mg Clopidogrel Bisulfate (Plavix) 75 mg PO DAILY [facility] Last Admin: 02/11/17 09:48 Dose: 75 mg Famotidine (Pepcid) 20 mg PO DAILY [facility] Last Admin: 02/11/17 09:48 Dose: 20 mg Ferrous Sulfate (Feosol) 325 mg PO Q12H [facility] Last Admin: 02/11/17 09:47 Dose: 325 mg Vancomycin HCl 1 gm/ Sodium (Chloride) 250 mls @ 166.7 mls/hr IVPB Q24H [facility] Last Admin: 02/11/17 13:26 Dose: 166.7 mls/hr Sodium Chloride (Sodium Chloride 0.9%) 1,000 mls @ 50 mls/hr IV .Q20H [facility] Last Admin: 02/11/17 01:45 Dose: Not Given Insulin Human Regular (Novolin R) 0 unit SC ACHS [facility] PRN Reason: Protocol Last Admin: 02/11/17 13:25 Dose: 2 unit Levothyroxine Sodium (Synthroid) 50 mcg PO DAILY@0630 [facility] Last Admin: 02/11/17 06:19 Dose: 50 mcg Metoprolol Succinate (Toprol Xl) 100 mg PO DAILY [facility] Last Admin: 02/11/17 09:48 Dose: 100 mg Rosuvastatin Calcium (Crestor) 5 mg PO HS [facility] Last Admin: 02/10/17 21:25 Dose: 5 mg Saccharomyces Boulardii (Florastor) 250 mg PO BID [facility] Last Admin: 02/11/17 09:46 Dose: 250 mg - Labs Labs: 02/11/17 07:13 02/11/17 07:13 PT 12.3 SECONDS (9.7-12.2) H 02/04/17 03:19 INR 1.1 02/04/17 03:19 APTT 29 SECONDS (21-34) 02/04/17 03:19 - Constitutional Appears: Non-toxic, No Acute Distress - Head Exam Head Exam: ATRAUMATIC, NORMAL INSPECTION, NORMOCEPHALIC - Eye Exam Eye Exam: EOMI - ENT Exam ENT Exam: Mucous Membranes Moist - Neck Exam Neck Exam: Full ROM, Normal Inspection - Respiratory Exam Respiratory Exam: NORMAL BREATHING PATTERN. absent: Respiratory Distress - Cardiovascular Exam Cardiovascular Exam: +S1, +S2 - GI/Abdominal Exam GI & Abdominal Exam: Soft, Normal Bowel Sounds. absent: Tenderness - Extremities Exam Extremities Exam: absent: Normal Inspection Additional comments: Dressing knee clean, dry, intact. - Back Exam Back Exam: NORMAL INSPECTION - Neurological Exam Neurological Exam: Alert, Awake, Oriented x3 - Psychiatric Exam Psychiatric exam: Normal Affect, Normal Mood - Skin Skin Exam: Dry, Intact, Normal Color, Warm Assessment and Plan - Assessment and Plan (Free Text) Assessment: 1. Right Knee Pain; Cellulitis and Abscess; rule out osteomyelitis vs. septic arthritis POD#7: s/p Irrigation and debridement abscess; cellulitis Continued Vancomycin 1gram IV Q24 hours; switched on 11/09 from Q12 to Q24 hours vancomycin trough 18.9 per ID Infectious disease consult. Dr. Langford. recs appreciated -> recommended for Vancomycin 1 gram IV Q24 hours for 7 days (patient can receive in rehab if placed) continue florastor 250 mg PO bid Ortho (Dr. Segura) on the case consult. recs appreciated. Wound culture: MRSA prior OR; post-OR 02/04: MRSA+ (sensitive to vancomycin) MRI shows extensive swelling compatible with cellulitis. no evidence of abscess (please see full report)-->to be addendum--> 1.5 cm x 1 cm abscess at the lateral aspect of the knee that is subcutaneous with no visible extension to the knee joint and is in fact extra-articular (discussed between radiology and orthopedic) right knee x ray negative Preoperative note: Right knee #1 lateral extra-articular subcutaneous draining abscess. #2 lateral and medial cellulitis. Operation Performed: Right knee #1 I &D of lateral abscess. #2 acquisition of cultures and Bx. #3 placement of packing. Specimen/Specimens Removed: Cx's x3 swabs, Cx's x1 abscess tissue, AFB & fungus sent to micro 2. Testicular lesions testicular us shows small area heterogeneous echotexture lower pole of left testicle, no evidence of epididymo-orchitis, right testicular cyst, inflammatory changes, no abscess continue to monitor urology consult. Dr. Leal. recs appreciated-->no lesion noted on his exam, recommended for either dermatology or outpatient follow-up 3. History of hypertension Norvasc 10mg PO daily Toproxl XL 100mg PO daily monitor vitals 4. History of hyperlipidemia continue to monitor will restart home lipitor>> changed to crestor 5 mg PO HS 5. Acute Renal insufficiency Nephrology (Dr. Bates) on board-->help appreciated IV fluids NS 50 cc/hr 6. history of cerebrovascular accident Asa 81 mg po daily and Plavix 75 mg po daily Blood pressure control 7. Iron deficiency anemia feosol 325 mg PO daily 8. Gastrointestinal and deep vein thrombosis prophylaxis Pepcid 20mg IV daily scds b/l Heparin 5000 units sc Q8H Disp: Continue IV abx for 7 days (6/7 days complete) dc to facility or home with services from ortho point of view continue above wound care as outpt or at facility/[facility], followup at [facility], [facility] [phone] within 1 week Weight bearing as tolerated, out of bed as much as possible physical therapy= ambulation, transfers, no restrictions, use knee immobilizer as needed for support for safe ambulation, ambulation with assist devices/walker pt on plavix and ASA, on Heparin 5000 q 8 hrs for DVT prophylaxis as well discussed with Dr. Vaughn <Rafael Vaughn H - Last Filed: 02/11/17 16:10> Objective - Vital Signs/Intake and Output Vital Signs (last 24 hours): Temp Pulse Resp BP Pulse Ox 97.8 F 79 18 195/81 H 97 02/11/17 07:00 02/11/17 10:00 02/11/17 07:00 02/11/17 10:00 02/11/17 07:00 Intake and Output: 02/11/17 02/11/17 06:59 18:59 Intake Total 1400 Output Total 1500 Balance -100 - Medications Medications: Current Medications Acetaminophen (Tylenol 325mg Tab) 650 mg PO Q6 PRN PRN Reason: Pain, moderate (4-7) Last Admin: 02/06/17 18:19 Dose: 650 mg Amlodipine Besylate (Norvasc) 10 mg PO DAILY [facility] Last Admin: 02/11/17 09:48 Dose: 10 mg Ascorbic Acid (Vitamin C 250 Mg Tab) 250 mg PO DAILY [facility] Last Admin: 02/11/17 09:47 Dose: 250 mg Aspirin (Aspirin Chewable) 81 mg PO DAILY [facility] Last Admin: 02/11/17 09:48 Dose: 81 mg Clopidogrel Bisulfate (Plavix) 75 mg PO DAILY [facility] Last Admin: 02/11/17 09:48 Dose: 75 mg Famotidine (Pepcid) 20 mg PO DAILY [facility] Last Admin: 02/11/17 09:48 Dose: 20 mg Ferrous Sulfate (Feosol) 325 mg PO Q12H [facility] Last Admin: 02/11/17 09:47 Dose: 325 mg Vancomycin HCl 1 gm/ Sodium (Chloride) 250 mls @ 166.7 mls/hr IVPB Q24H [facility] Last Admin: 02/11/17 13:26 Dose: 166.7 mls/hr Sodium Chloride (Sodium Chloride 0.9%) 1,000 mls @ 50 mls/hr IV .Q20H [facility] Last Admin: 02/11/17 01:45 Dose: Not Given Insulin Human Regular (Novolin R) 0 unit SC ACHS [facility] PRN Reason: Protocol Last Admin: 02/11/17 13:25 Dose: 2 unit Levothyroxine Sodium (Synthroid) 50 mcg PO DAILY@0630 [facility] Last Admin: 02/11/17 06:19 Dose: 50 mcg Metoprolol Succinate (Toprol Xl) 100 mg PO DAILY [facility] Last Admin: 02/11/17 09:48 Dose: 100 mg Rosuvastatin Calcium (Crestor) 5 mg PO HS [facility] Last Admin: 02/10/17 21:25 Dose: 5 mg Saccharomyces Boulardii (Florastor) 250 mg PO BID [facility] Last Admin: 02/11/17 09:46 Dose: 250 mg - Labs Labs: 02/11/17 07:13 02/11/17 07:13 PT 12.3 SECONDS (9.7-12.2) H 02/04/17 03:19 INR 1.1 02/04/17 03:19 APTT 29 SECONDS (21-34) 02/04/17 03:19 Attending/Attestation - Attestation I have personally seen and examined this patient.: Yes I have fully participated in the care of the patient.: Yes I have reviewed all pertinent clinical information, including history, physical exam and plan: Yes
[2017-02-12 07:38] LABS: BASO # 0.2 K/uL (0.0-0.2); BASO % 2.1 % (0.0-2.0); EOS # 0.6 K/uL (0.0-0.7); EOS % 7.3 % (0.0-4.0); HEMATOCRIT 28.3 % (35.0-51.0); LYMPH % 23.4 % (20.0-40.0); MEAN CELL VOLUME 81.3 fL (80.0-94.0); MEAN CORPUSCULAR HGB CONC 34.4 g/dL (33.0-37.0); MEAN PLATELET VOLUME 8.2 fL (7.2-11.7); MONO # 0.8 K/uL (0.0-0.8); MONO % 9.5 % (0.0-10.0); NRBC % 0.1 % (0.0-2.0); RED CELL DISTRIBUTION WIDTH 13.7 % (11.5-14.5); WHITE BLOOD COUNT 8.3 K/uL (4.8-10.8)
[2017-02-12 07:49] LABS: CHLORIDE 104 mmol/L (98-107); POTASSIUM 4.2 mmol/L (3.6-5.2); SODIUM 136 mmol/L (132-148)
[2017-02-12 07:52] LABS: ALB/GLOB RATIO 1.2 (1.0-2.1); ALKALINE PHOSPHATASE 59 U/L (38-126); ALT/SGPT 34 U/L (21-72); AST/SGOT 38 U/L (17-59); BILIRUBIN,TOTAL 0.4 mg/dL (0.2-1.3); BLOOD UREA NITROGEN 22 mg/dL (9-20); CARBON DIOXIDE 22 mmol/L (22-30); GFR AFRICAN-AMERICAN > 60; GLUCOSE,RANDOM 187 mg/dL (75-110); PHOSPHOROUS 3.2 mg/dL (2.5-4.5); TOTAL PROTEIN 6.3 g/dL (6.3-8.3)
[2017-02-12 07:53] LABS: MAGNESIUM 1.6 mg/dL (1.6-2.3)
[2017-02-12] MEDS: Sodium Chloride 0.9% 1,000 ML IV SCH (08:40)
[2017-02-12] MEDS: (Novolin R) Insulin Human Regular 100 units/ml vial SC SCH ×4 (09:15→22:11)
[2017-02-12] MEDS: Saccharomyces Boulardi 250 mg Cap PO SCH ×2 (09:16→17:50)
[2017-02-12] MEDS: Metoprolol Succinate 100 mg XL Tab PO SCH (09:16)
--- NOTE | 2017-02-12 11:52 | CP.PCM.PN ---
Subjective - Date & Time of Evaluation Date of Evaluation: 02/12/17 Time of Evaluation: 11:50 - Subjective Subjective: Med progress note. Attending: Dr. Vaughn Pt seen and examined at bedside. No acute distress. No events overnight. Pt has no complaints. Pending [facility] placement. No fevers, chills, vomiting, diarrhea. Objective - Vital Signs/Intake and Output Vital Signs (last 24 hours): Temp Pulse Resp BP Pulse Ox 98 F 73 20 169/79 H 97 02/12/17 08:00 02/12/17 09:15 02/12/17 08:00 02/12/17 09:15 02/12/17 08:00 Intake and Output: 02/12/17 02/12/17 06:59 18:59 Output Total 350 Balance -350 - Medications Medications: Current Medications Acetaminophen (Tylenol 325mg Tab) 650 mg PO Q6 PRN PRN Reason: Pain, moderate (4-7) Last Admin: 02/06/17 18:19 Dose: 650 mg Amlodipine Besylate (Norvasc) 10 mg PO DAILY [facility] Last Admin: 02/12/17 09:16 Dose: 10 mg Ascorbic Acid (Vitamin C 250 Mg Tab) 250 mg PO DAILY [facility] Last Admin: 02/12/17 09:16 Dose: 250 mg Aspirin (Aspirin Chewable) 81 mg PO DAILY [facility] Last Admin: 02/12/17 09:16 Dose: 81 mg Clopidogrel Bisulfate (Plavix) 75 mg PO DAILY [facility] Last Admin: 02/12/17 09:16 Dose: 75 mg Famotidine (Pepcid) 20 mg PO DAILY [facility] Last Admin: 02/12/17 09:16 Dose: 20 mg Ferrous Sulfate (Feosol) 325 mg PO Q12H [facility] Last Admin: 02/12/17 09:16 Dose: 325 mg Vancomycin HCl 1 gm/ Sodium (Chloride) 250 mls @ 166.7 mls/hr IVPB Q24H [facility] Last Admin: 02/11/17 13:26 Dose: 166.7 mls/hr Insulin Human Regular (Novolin R) 0 unit SC ACHS [facility] PRN Reason: Protocol Last Admin: 02/12/17 09:15 Dose: 2 unit Levothyroxine Sodium (Synthroid) 50 mcg PO DAILY@0630 [facility] Last Admin: 02/11/17 06:19 Dose: 50 mcg Metoprolol Succinate (Toprol Xl) 100 mg PO DAILY [facility] Last Admin: 02/12/17 09:16 Dose: 100 mg Rosuvastatin Calcium (Crestor) 5 mg PO HS [facility] Last Admin: 02/11/17 21:47 Dose: 5 mg Saccharomyces Boulardii (Florastor) 250 mg PO BID [facility] Last Admin: 02/12/17 09:16 Dose: 250 mg - Labs Labs: 02/12/17 07:34 02/12/17 07:34 PT 12.3 SECONDS (9.7-12.2) H 02/04/17 03:19 INR 1.1 02/04/17 03:19 APTT 29 SECONDS (21-34) 02/04/17 03:19 - Constitutional Appears: Non-toxic, No Acute Distress - Head Exam Head Exam: ATRAUMATIC, NORMAL INSPECTION, NORMOCEPHALIC - Eye Exam Eye Exam: EOMI - ENT Exam ENT Exam: Mucous Membranes Moist - Neck Exam Neck Exam: Full ROM, Normal Inspection - Respiratory Exam Respiratory Exam: NORMAL BREATHING PATTERN. absent: Respiratory Distress - Cardiovascular Exam Cardiovascular Exam: +S1, +S2 - GI/Abdominal Exam GI & Abdominal Exam: Soft, Normal Bowel Sounds. absent: Tenderness - Extremities Exam Extremities Exam: absent: Full ROM Additional comments: Knee immobilizer right knee, no cellulitis, abscess, erythema - Back Exam Back Exam: NORMAL INSPECTION - Neurological Exam Neurological Exam: Alert, Awake, CN II-XII Intact - Psychiatric Exam Psychiatric exam: Normal Affect, Normal Mood - Skin Skin Exam: Dry, Intact, Normal Color, Warm Assessment and Plan - Assessment and Plan (Free Text) Assessment: 1. Right Knee Pain; Cellulitis and Abscess; rule out osteomyelitis vs. septic arthritis POD#8: s/p Irrigation and debridement abscess; cellulitis Continued Vancomycin 1gram IV Q24 hours; switched on 11/09 from Q12 to Q24 hours vancomycin trough 18.9 per ID Infectious disease consult. Dr. Langford. recs appreciated -> recommended for Vancomycin 1 gram IV Q24 hours for 7 days (patient can receive in rehab if placed) continue florastor 250 mg PO bid Ortho (Dr. Segura) on the case consult. recs appreciated. Wound culture: MRSA prior OR; post-OR 02/04: MRSA+ (sensitive to vancomycin) MRI shows extensive swelling compatible with cellulitis. no evidence of abscess (please see full report)-->to be addendum--> 1.5 cm x 1 cm abscess at the lateral aspect of the knee that is subcutaneous with no visible extension to the knee joint and is in fact extra-articular (discussed between radiology and orthopedic) right knee x ray negative Preoperative note: Right knee #1 lateral extra-articular subcutaneous draining abscess. #2 lateral and medial cellulitis. Operation Performed: Right knee #1 I &D of lateral abscess. #2 acquisition of cultures and Bx. #3 placement of packing. Specimen/Specimens Removed: Cx's x3 swabs, Cx's x1 abscess tissue, AFB & fungus sent to micro 2. Testicular lesions testicular us shows small area heterogeneous echotexture lower pole of left testicle, no evidence of epididymo-orchitis, right testicular cyst, inflammatory changes, no abscess continue to monitor urology consult. Dr. Leal. recs appreciated-->no lesion noted on his exam, recommended for either dermatology or outpatient follow-up 3. History of hypertension Norvasc 10mg PO daily Toproxl XL 100mg PO daily monitor vitals 4. History of hyperlipidemia continue to monitor will restart home lipitor>> changed to crestor 5 mg PO HS 5. Acute Renal insufficiency Nephrology (Dr. Bates) on board-->help appreciated IV fluids NS 50 cc/hr 6. history of cerebrovascular accident Asa 81 mg po daily and Plavix 75 mg po daily Blood pressure control 7. Iron deficiency anemia feosol 325 mg PO daily 8. Gastrointestinal and deep vein thrombosis prophylaxis Pepcid 20mg IV daily scds b/l Heparin 5000 units sc Q8H Disp: Continue IV abx for 7 days (7/7 days complete) dc to TCU vs. [facility] per PT continue above wound care as outpt or at facility/[facility], followup at [facility], [facility] [phone] within 1 week Weight bearing as tolerated, out of bed as much as possible physical therapy= ambulation, transfers, no restrictions, use knee immobilizer as needed for support for safe ambulation, ambulation with assist devices/walker pt on plavix and ASA, on Heparin 5000 q 8 hrs for DVT prophylaxis as well discussed with Dr. Vaughn
--- NOTE | 2017-02-12 13:19 | CP.PCM.PN ---
<Wily Valdez - Last Filed: 02/12/17 13:16> Subjective - Date & Time of Evaluation Date of Evaluation: 02/12/17 Time of Evaluation: 13:17 - Subjective Subjective: Pt complains of mild knee pain today. No new complainnts. Objective - Vital Signs/Intake and Output Vital Signs (last 24 hours): Temp Pulse Resp BP Pulse Ox 98 F 73 20 169/79 H 97 02/12/17 08:00 02/12/17 09:15 02/12/17 08:00 02/12/17 09:15 02/12/17 08:00 Intake and Output: 02/12/17 02/12/17 06:59 18:59 Output Total 350 Balance -350 - Medications Medications: Current Medications Acetaminophen (Tylenol 325mg Tab) 650 mg PO Q6 PRN PRN Reason: Pain, moderate (4-7) Last Admin: 02/06/17 18:19 Dose: 650 mg Amlodipine Besylate (Norvasc) 10 mg PO DAILY [facility] Last Admin: 02/12/17 09:16 Dose: 10 mg Ascorbic Acid (Vitamin C 250 Mg Tab) 250 mg PO DAILY [facility] Last Admin: 02/12/17 09:16 Dose: 250 mg Aspirin (Aspirin Chewable) 81 mg PO DAILY [facility] Last Admin: 02/12/17 09:16 Dose: 81 mg Clopidogrel Bisulfate (Plavix) 75 mg PO DAILY [facility] Last Admin: 02/12/17 09:16 Dose: 75 mg Famotidine (Pepcid) 20 mg PO DAILY [facility] Last Admin: 02/12/17 09:16 Dose: 20 mg Ferrous Sulfate (Feosol) 325 mg PO Q12H [facility] Last Admin: 02/12/17 09:16 Dose: 325 mg Vancomycin HCl 1 gm/ Sodium (Chloride) 250 mls @ 166.7 mls/hr IVPB Q24H [facility] Last Admin: 02/11/17 13:26 Dose: 166.7 mls/hr Insulin Human Regular (Novolin R) 0 unit SC ACHS [facility] PRN Reason: Protocol Last Admin: 02/12/17 12:40 Dose: 1 unit Levothyroxine Sodium (Synthroid) 50 mcg PO DAILY@0630 [facility] Last Admin: 02/11/17 06:19 Dose: 50 mcg Metoprolol Succinate (Toprol Xl) 100 mg PO DAILY [facility] Last Admin: 02/12/17 09:16 Dose: 100 mg Rosuvastatin Calcium (Crestor) 5 mg PO HS [facility] Last Admin: 02/11/17 21:47 Dose: 5 mg Saccharomyces Boulardii (Florastor) 250 mg PO BID [facility] Last Admin: 02/12/17 09:16 Dose: 250 mg - Labs Labs: 02/12/17 07:34 02/12/17 07:34 PT 12.3 SECONDS (9.7-12.2) H 02/04/17 03:19 INR 1.1 02/04/17 03:19 APTT 29 SECONDS (21-34) 02/04/17 03:19 - Extremities Exam Additional comments: RLE: dressing change. Scant drainage. Wound improving. No collection. ROM knee without pain. No suspicion of septic arthritis. Slightly stiff but due to immobilizer. +ROM ankle/toes, sensation intact. +DP pulse, lmedial wound healed Assessment and Plan (1) Cellulitis and abscess of right leg Assessment & Plan: POD#8 s/p I&D cellulitis resolved ortho stable for d/c or transfer cont PT f/u 1 wwek call for appt Dr. Rodriguez d/w Dr. Rodriguez agrees withh above Status: Acute <Mila Gaines S - Last Filed: 02/14/17 00:57> Subjective - Subjective Subjective: Pt seen and examined. Agree with PA assessment and plan. wound shows no evidence of re-accumulation of collection and cellulites improved , no indication for repeat I&D continue with ID recs/ IV abx final Cx= MRSA DVT proph if not contraindicated in the setting of Plavix, on Heparin 5000 by primary team OOB as much as possible Physical Therapy= WBAT, no restrictions, use knee immobilizer until pt is safe for ambulation/transfers w/o it, work on ambulation/transfers/strength/stretch/ ROM D/C planning, OK for dc from ortho point of view f/u in my office at [facility], [facility] w/in 1 week from pr, Objective - Vital Signs/Intake and Output Vital Signs (last 24 hours): Temp Pulse Resp BP Pulse Ox 98.2 F 63 20 146/68 97 02/13/17 15:22 02/13/17 15:22 02/13/17 15:22 02/13/17 15:22 02/13/17 15:22 Intake and Output: 02/13/17 02/14/17 18:59 06:59 Intake Total 1150 Output Total 900 Balance 250 - Labs Labs: 02/13/17 07:11 02/13/17 07:11 PT 12.3 SECONDS (9.7-12.2) H 02/04/17 03:19 INR 1.1 02/04/17 03:19 APTT 29 SECONDS (21-34) 02/04/17 03:19 Assessment and Plan (1) Cellulitis and abscess of right leg Status: Acute
--- NOTE | 2017-02-12 17:44 | CP.PCM.PN ---
Subjective - Date & Time of Evaluation Date of Evaluation: 02/12/17 Time of Evaluation: 09:00 - Subjective Subjective: Wound improving. No collection. ROM knee without pain. No suspicion of septic arthritis. Slightly stiff but due to immobilizer. +ROM ankle/toes, sensation intact. +DP pulse, lmedial wound healed Objective - Vital Signs/Intake and Output Vital Signs (last 24 hours): Temp Pulse Resp BP Pulse Ox 98.3 F 75 20 168/75 H 97 02/12/17 16:14 02/12/17 16:14 02/12/17 16:14 02/12/17 16:14 02/12/17 16:14 Intake and Output: 02/12/17 02/12/17 06:59 18:59 Intake Total 1175 Output Total 350 Balance -350 1175 - Medications Medications: Current Medications Acetaminophen (Tylenol 325mg Tab) 650 mg PO Q6 PRN PRN Reason: Pain, moderate (4-7) Last Admin: 02/06/17 18:19 Dose: 650 mg Amlodipine Besylate (Norvasc) 10 mg PO DAILY [facility] Last Admin: 02/12/17 09:16 Dose: 10 mg Ascorbic Acid (Vitamin C 250 Mg Tab) 250 mg PO DAILY [facility] Last Admin: 02/12/17 09:16 Dose: 250 mg Aspirin (Aspirin Chewable) 81 mg PO DAILY [facility] Last Admin: 02/12/17 09:16 Dose: 81 mg Clopidogrel Bisulfate (Plavix) 75 mg PO DAILY [facility] Last Admin: 02/12/17 09:16 Dose: 75 mg Famotidine (Pepcid) 20 mg PO DAILY [facility] Last Admin: 02/12/17 09:16 Dose: 20 mg Ferrous Sulfate (Feosol) 325 mg PO Q12H [facility] Last Admin: 02/12/17 09:16 Dose: 325 mg Vancomycin HCl 1 gm/ Sodium (Chloride) 250 mls @ 166.7 mls/hr IVPB Q24H [facility] Last Admin: 02/12/17 13:33 Dose: 166.7 mls/hr Insulin Human Regular (Novolin R) 0 unit SC ACHS [facility] PRN Reason: Protocol Last Admin: 02/12/17 12:40 Dose: 1 unit Levothyroxine Sodium (Synthroid) 50 mcg PO DAILY@0630 [facility] Last Admin: 02/11/17 06:19 Dose: 50 mcg Metoprolol Succinate (Toprol Xl) 100 mg PO DAILY [facility] Last Admin: 02/12/17 09:16 Dose: 100 mg Rosuvastatin Calcium (Crestor) 5 mg PO HS [facility] Last Admin: 02/11/17 21:47 Dose: 5 mg Saccharomyces Boulardii (Florastor) 250 mg PO BID [facility] Last Admin: 02/12/17 09:16 Dose: 250 mg - Labs Labs: 02/12/17 07:34 02/12/17 07:34 PT 12.3 SECONDS (9.7-12.2) H 02/04/17 03:19 INR 1.1 02/04/17 03:19 APTT 29 SECONDS (21-34) 02/04/17 03:19 - Constitutional Appears: Non-toxic, Chronically Ill - Head Exam Head Exam: NORMOCEPHALIC - Eye Exam Eye Exam: absent: Scleral icterus - ENT Exam ENT Exam: Mucous Membranes Dry - Neck Exam Neck Exam: absent: Lymphadenopathy - Respiratory Exam Respiratory Exam: Decreased Breath Sounds - Cardiovascular Exam Cardiovascular Exam: REGULAR RHYTHM - GI/Abdominal Exam GI & Abdominal Exam: Distended, Soft - Rectal Exam Rectal Exam: Deferred - Extremities Exam Extremities Exam: absent: Pedal Edema Additional comments: Wound improving. No collection. ROM knee without pain. No suspicion of septic arthritis. Slightly stiff but due to immobilizer. +ROM ankle/toes, sensation intact. +DP pulse, lmedial wound healed - Back Exam Back Exam: absent: CVA tenderness (R), NORMAL INSPECTION - Neurological Exam Neurological Exam: Alert, Awake Assessment and Plan (1) MRSA (methicillin resistant Staphylococcus aureus) infection Status: Acute (2) MRSA (methicillin resistant Staphylococcus aureus) infection Status: Acute
[2017-02-13] MEDS: Levothyroxine 50 MCG TAB PO SCH (05:33)
[2017-02-13 07:26] LABS: BASO # 0.2 K/uL (0.0-0.2); BASO % 1.3 % (0.0-2.0); EOS # 0.4 K/uL (0.0-0.7); EOS % 3.5 % (0.0-4.0); HEMATOCRIT 28.9 % (35.0-51.0); LYMPH # 2.9 K/uL (1.0-4.3); LYMPH % 24.6 % (20.0-40.0); MEAN CELL VOLUME 80.3 fL (80.0-94.0); MEAN CORPUSCULAR HEMOGLOBIN 27.7 pg (27.0-31.0); MEAN CORPUSCULAR HGB CONC 34.5 g/dL (33.0-37.0); MEAN PLATELET VOLUME 8.4 fL (7.2-11.7); MONO % 8.1 % (0.0-10.0); RED CELL DISTRIBUTION WIDTH 13.8 % (11.5-14.5); WHITE BLOOD COUNT 11.8 K/uL (4.8-10.8)
[2017-02-13 07:48] LABS: CHLORIDE 102 mmol/L (98-107); POTASSIUM 3.9 mmol/L (3.6-5.2); SODIUM 134 mmol/L (132-148)
[2017-02-13 07:50] LABS: GFR AFRICAN-AMERICAN > 60
[2017-02-13 07:51] LABS: ALB/GLOB RATIO 1.4 (1.0-2.1); ALKALINE PHOSPHATASE 58 U/L (38-126); ALT/SGPT 37 U/L (21-72); AST/SGOT 33 U/L (17-59); BILIRUBIN,TOTAL 0.5 mg/dL (0.2-1.3); BLOOD UREA NITROGEN 22 mg/dL (9-20); CALCIUM 8.7 mg/dl (8.6-10.4); CARBON DIOXIDE 20 mmol/L (22-30); GLUCOSE,RANDOM 198 mg/dL (75-110); MAGNESIUM 1.4 mg/dL (1.6-2.3); PHOSPHOROUS 3.2 mg/dL (2.5-4.5)
[2017-02-13 07:59] VITALS: RESP 20
[2017-02-13] MEDS: (Novolin R) Insulin Human Regular 100 units/ml vial SC SCH ×2 (09:23→13:15)
--- NOTE | 2017-02-13 10:23 | CP.PCM.PN ---
Subjective - Date & Time of Evaluation Date of Evaluation: 02/13/17 Time of Evaluation: 10:13 - Subjective Subjective: Patient states he has a little pain in his knee. Ambulating with PT with and without immobilizer, stable without. Removed. Objective - Vital Signs/Intake and Output Vital Signs (last 24 hours): Temp Pulse Resp BP Pulse Ox 98.1 F 65 20 140/68 95 02/13/17 07:00 02/13/17 07:00 02/13/17 07:00 02/13/17 07:00 02/13/17 07:00 Intake and Output: 02/13/17 02/13/17 06:59 18:59 Intake Total 240 Output Total 700 Balance -460 - Medications Medications: Current Medications Acetaminophen (Tylenol 325mg Tab) 650 mg PO Q6 PRN PRN Reason: Pain, moderate (4-7) Last Admin: 02/12/17 19:54 Dose: 650 mg Amlodipine Besylate (Norvasc) 10 mg PO DAILY [facility] Last Admin: 02/12/17 09:16 Dose: 10 mg Ascorbic Acid (Vitamin C 250 Mg Tab) 250 mg PO DAILY [facility] Last Admin: 02/12/17 09:16 Dose: 250 mg Aspirin (Aspirin Chewable) 81 mg PO DAILY [facility] Last Admin: 02/12/17 09:16 Dose: 81 mg Clopidogrel Bisulfate (Plavix) 75 mg PO DAILY [facility] Last Admin: 02/12/17 09:16 Dose: 75 mg Famotidine (Pepcid) 20 mg PO DAILY [facility] Last Admin: 02/12/17 09:16 Dose: 20 mg Ferrous Sulfate (Feosol) 325 mg PO Q12H [facility] Last Admin: 02/12/17 21:38 Dose: 325 mg Vancomycin HCl 1 gm/ Sodium (Chloride) 250 mls @ 166.7 mls/hr IVPB Q24H [facility] Last Admin: 02/12/17 13:33 Dose: 166.7 mls/hr Magnesium Sulfate/Dextrose (Magnesium Sulfate 1 Gm/100 Ml D5w) 1 gm in 100 mls @ 300 mls/hr IVPB Q30M [facility] Stop: 02/13/17 11:04 Insulin Human Regular (Novolin R) 0 unit SC ACHS [facility] PRN Reason: Protocol Last Admin: 02/13/17 09:23 Dose: 3 unit Levothyroxine Sodium (Synthroid) 50 mcg PO DAILY@0630 [facility] Last Admin: 02/13/17 05:33 Dose: 50 mcg Metoprolol Succinate (Toprol Xl) 100 mg PO DAILY [facility] Last Admin: 02/12/17 09:16 Dose: 100 mg Rosuvastatin Calcium (Crestor) 5 mg PO HS [facility] Last Admin: 02/12/17 21:38 Dose: 5 mg Saccharomyces Boulardii (Florastor) 250 mg PO BID [facility] Last Admin: 02/12/17 17:50 Dose: 250 mg - Labs Labs: 02/13/17 07:11 02/13/17 07:11 PT 12.3 SECONDS (9.7-12.2) H 02/04/17 03:19 INR 1.1 02/04/17 03:19 APTT 29 SECONDS (21-34) 02/04/17 03:19 - Extremities Exam Additional comments: Right knee: wound scant serous drainage. Wound size continues to decrease. no collection. No erythema, all cellulitis resolved. Knee ROM with prompting to 80 degrees without pain. No suspicion of reaccumulation or septic arthritis. Assessment and Plan (1) Cellulitis and abscess of right leg Assessment & Plan: POD#9 s/p I&D right leg abscess cellulitis resolved daily dresssing changes knee immobilizer d/c'd as patient ambulates well without it, encourage ROM of knee ortho stable for d/c, f/u Dr. Rodriguez 1 week call for appointment d/w Dr. Deleon, agrees with above Status: Acute
[2017-02-13] MEDS: Metoprolol Succinate 100 mg XL Tab PO SCH (10:30)
[2017-02-13] MEDS: Saccharomyces Boulardi 250 mg Cap PO SCH (10:30)
[2017-02-13] MEDS: Magnesium Sulfate 1 gm in D5W 1 GM/100 ML BAG IVPB SCH ×2 (10:45→11:56)
--- NOTE | 2017-02-13 14:06 | CP.PCM.DIS ---
<Rober Cervantes - Last Filed: 02/13/17 14:16> Provider - Provider Date of Admission: 02/05/17 15:13 Attending physician: Gladys Menchaca DO Consults: 1. Dr. Conner 2. Dr. Langford 3. Dr. Contreras 4. Dr. Leal Time Spent in preparation of Discharge (in minutes): 45 Hospital Course - Lab Results Lab Results: Most Recent Lab Values WBC 11.8 K/uL (4.8-10.8) H 02/13/17 07:11 RBC 3.60 Mil/uL (4.40-5.90) L 02/13/17 07:11 Hgb 10.0 g/dL (12.0-18.0) L 02/13/17 07:11 Hct 28.9 % (35.0-51.0) L 02/13/17 07:11 MCV 80.3 fL (80.0-94.0) 02/13/17 07:11 MCH 27.7 pg (27.0-31.0) 02/13/17 07:11 MCHC 34.5 g/dL (33.0-37.0) 02/13/17 07:11 RDW 13.8 % (11.5-14.5) 02/13/17 07:11 Plt Count 264 K/uL (130-400) 02/13/17 07:11 MPV 8.4 fL (7.2-11.7) 02/13/17 07:11 Neut % (Auto) 62.5 % (50.0-75.0) 02/13/17 07:11 Lymph % (Auto) 24.6 % (20.0-40.0) 02/13/17 07:11 Pecos % (Auto) 8.1 % (0.0-10.0) 02/13/17 07:11 Eos % (Auto) 3.5 % (0.0-4.0) 02/13/17 07:11 Baso % (Auto) 1.3 % (0.0-2.0) 02/13/17 07:11 Neut # 7.4 K/uL (1.8-7.0) H 02/13/17 07:11 Lymph # 2.9 K/uL (1.0-4.3) 02/13/17 07:11 [place] # 1.0 K/uL (0.0-0.8) H 02/13/17 07:11 Eos # 0.4 K/uL (0.0-0.7) 02/13/17 07:11 Baso # 0.2 K/uL (0.0-0.2) 02/13/17 07:11 PT 12.3 SECONDS (9.7-12.2) H 02/04/17 03:19 INR 1.1 02/04/17 03:19 APTT 29 SECONDS (21-34) 02/04/17 03:19 pO2 37 mm/Hg (30-55) 02/03/17 11:14 VBG pH 7.26 (7.32-7.43) L 02/03/17 11:14 VBG pCO2 39 mmHg (40-60) L 02/03/17 11:14 VBG HCO3 16.9 mmol/L 02/03/17 11:14 VBG Total CO2 18.7 mmol/L (22-28) L 02/03/17 11:14 VBG O2 Sat (Calc) 69.2 % (40-65) H 02/03/17 11:14 VBG Base Excess -9.0 mmol/L (0.0-2.0) L 02/03/17 11:14 VBG Potassium 5.2 mmol/L (3.6-5.2) 02/03/17 11:14 Sodium 142.0 mmol/l (132-148) 02/03/17 11:14 Chloride 113.0 mmol/L (98-107) H 02/03/17 11:14 Glucose 166 mg/dl (75-110) H 02/03/17 11:14 Lactate 1.6 mmol/L (0.7-2.1) 02/03/17 11:14 Sodium 134 mmol/L (132-148) 02/13/17 07:11 Potassium 3.9 mmol/L (3.6-5.2) 02/13/17 07:11 Chloride 102 mmol/L (98-107) 02/13/17 07:11 Carbon Dioxide 20 mmol/L (22-30) L 02/13/17 07:11 Anion Gap 16 (10-20) 02/13/17 07:11 BUN 22 mg/dL (9-20) H 02/13/17 07:11 Creatinine 1.1 MG/DL (0.8-1.5) 02/13/17 07:11 Est GFR ( Amer) > 60 02/13/17 07:11 Est GFR (Non-Af Amer) > 60 02/13/17 07:11 POC Glucose (mg/dL) 355 mg/dL (65-110) H 02/13/17 12:38 Random Glucose 198 mg/dL (75-110) H 02/13/17 07:11 Hemoglobin A1c 8.2 % (4.2-6.5) H 02/04/17 03:19 Calcium 8.7 mg/dl (8.6-10.4) 02/13/17 07:11 Phosphorus 3.2 mg/dL (2.5-4.5) 02/13/17 07:11 Magnesium 1.4 mg/dL (1.6-2.3) L 02/13/17 07:11 Iron 47 ug/dL (49-181) L 02/07/17 07:15 TIBC 310 ug/dL (250-450) 02/07/17 07:15 % Saturation 15 (20-55) L 02/07/17 07:15 Ferritin 107.0 ng/mL 02/07/17 07:15 Total Bilirubin 0.5 mg/dL (0.2-1.3) 02/13/17 07:11 AST 33 U/L (17-59) 02/13/17 07:11 ALT 37 U/L (21-72) 02/13/17 07:11 Alkaline Phosphatase 58 U/L (38-126) 02/13/17 07:11 Total Protein 6.0 g/dL (6.3-8.3) L 02/13/17 07:11 Albumin 3.5 g/dL (3.5-5.0) 02/13/17 07:11 Globulin 2.5 gm/dL (2.2-3.9) 02/13/17 07:11 Albumin/Globulin Ratio 1.4 (1.0-2.1) 02/13/17 07:11 Venous Blood Potassium 5.2 mmol/L (3.6-5.2) 02/03/17 11:14 Urine Color Straw (YELLOW) 02/05/17 06:13 Urine Clarity Clear (Clear) 02/05/17 06:13 Urine pH 5.0 (5.0-8.0) 02/05/17 06:13 Ur Specific Stopover 1.008 (1.003-1.030) 02/05/17 06:13 Urine Protein Negative mg/dL (NEGATIVE) 02/05/17 06:13 Urine Glucose (UA) Normal mg/dL (Normal) 02/05/17 06:13 Urine Ketones Negative mg/dL (NEGATIVE) 02/05/17 06:13 Urine Blood Negative (NEGATIVE) 02/05/17 06:13 Urine Nitrate Negative (NEGATIVE) 02/05/17 06:13 Urine Bilirubin Negative (NEGATIVE) 02/05/17 06:13 Urine Urobilinogen Normal mg/dL (0.2-1.0) 02/05/17 06:13 Ur Leukocyte Esterase Neg David/uL (Negative) 02/05/17 06:13 Urine WBC (Auto) < 1 /hpf (0-5) 02/05/17 06:13 Ur Squamous Epith Cells < 1 /hpf (0-5) 02/05/17 06:13 Ur Random Creatinine 76.8 mg/dL 02/07/17 22:24 U Random Total Protein 43.0 mg/dL (0.0-12.0) H 02/07/17 22:51 Ur Random Sodium 138 mmol/L 02/05/17 06:13 Ur Random Urea Nitrogn 223 mg/dL 02/05/17 08:31 Urine Microalbumin 212.8 mg/L (0.0-16.6) H 02/08/17 19:30 Vancomycin Trough 14.6 ug/mL (5.0-10.0) H 02/08/17 13:05 Random Vancomycin 16.65 ug/mL 02/04/17 17:19 Serum Ketones Negative (NEGATIVE) 02/03/17 11:37 - Hospital Course Hospital Course: Admit date- 02/03/17 DC date- 02/13/17 Attending: Dr. Vaughn Consults 1. Ortho- Dr. Conner 2. ID- Dr. Langford 3. Urology- Dr. Leal 4. Nephro- Dr. Contreras Stable upon discharge Procedures- s/p irrigation and debridement right knee No complications H/P: see hpi Labs: see lab data section Hospital course 1. Right Knee Pain; Cellulitis and Abscess; rule out osteomyelitis vs. septic arthritis POD#9: s/p Irrigation and debridement abscess; cellulitis Continued Vancomycin 1gram IV Q24 hours; switched on 11/09 from Q12 to Q24 hours vancomycin trough 18.9 per ID>> finished course Infectious disease consult. Dr. Langford. recs appreciated -> recommended for Vancomycin 1 gram IV Q24 hours for 7 days (patient can receive in rehab if placed); pt finished course florastor 250 mg PO bid Ortho (Dr. Segura) on the case consult. recs appreciated. Wound culture: MRSA prior OR; post-OR 02/04: MRSA+ (sensitive to vancomycin) MRI shows extensive swelling compatible with cellulitis. no evidence of abscess (please see full report)-->to be addendum--> 1.5 cm x 1 cm abscess at the lateral aspect of the knee that is subcutaneous with no visible extension to the knee joint and is in fact extra-articular (discussed between radiology and orthopedic) right knee x ray negative Preoperative note: Right knee #1 lateral extra-articular subcutaneous draining abscess. #2 lateral and medial cellulitis. Operation Performed: Right knee #1 I &D of lateral abscess. #2 acquisition of cultures and Bx. #3 placement of packing. Specimen/Specimens Removed: Cx's x3 swabs, Cx's x1 abscess tissue, AFB & fungus sent to micro 2. Testicular lesions testicular us shows small area heterogeneous echotexture lower pole of left testicle, no evidence of epididymo-orchitis, right testicular cyst, inflammatory changes, no abscess continue to monitor urology consult. Dr. Leal. recs appreciated-->no lesion noted on his exam, recommended for either dermatology or outpatient follow-up 3. History of hypertension Norvasc 10mg PO daily Toproxl XL 100mg PO daily monitor vitals 4. History of hyperlipidemia continue to monitor will restart home lipitor>> changed to crestor 5 mg PO HS in hospital 5. Acute Renal insufficiency Nephrology (Dr. Bates) on board-->help appreciated IV fluids NS 50 cc/hr were given 6. history of cerebrovascular accident Asa 81 mg po daily and Plavix 75 mg po daily Blood pressure control 7. Iron deficiency anemia feosol 325 mg PO daily 8. Gastrointestinal and deep vein thrombosis prophylaxis Pepcid 20mg IV daily scds b/l Heparin 5000 units sc Q8H Disp: Continue IV abx for 7 days (7/7 days complete) dc to TCU vs. [facility] per PT continue above wound care as outpt or at facility/[facility], followup at [facility] [phone] within 1 week Weight bearing as tolerated, out of bed as much as possible physical therapy= ambulation, transfers, no restrictions, use knee immobilizer as needed for support for safe ambulation, ambulation with assist devices/walker pt on plavix and ASA, on Heparin 5000 q 8 hrs for DVT prophylaxis as well discussed with Dr. Johana ROSS instructions Pt is medically stable for discharge. Please dc to rehab. Pt will need f/u with ortho. Please take all RX. Please return if condition worsens. DC meds 1. synthroid 50 mcg po daily 2. norvasc 10 mg po daily 3. asa 81mg po daily 4. lipitor 80 mg po hs 5. plavix 75 mg po daily 6. feosol 325 q 12 hrs 7. toviaz 8 mg po daily 8. toprol 100 daily - Date & Time of H&P Date of H&P: 02/03/17 Time of H&P: 16:24 Discharge Exam - Head Exam Head Exam: NORMOCEPHALIC Discharge Plan - Discharge Medications Prescriptions: Ascorbic Acid [Vitamin C 250 mg Tab] 250 mg PO DAILY #30 tab Aspirin [Aspirin Chewable] 81 mg PO DAILY #30 Levothyroxine [Synthroid] 50 mcg PO DAILY #30 tab - Follow Up Plan Condition: STABLE Disposition: REHAB FACILITY/REHAB UNIT Instructions: MRSA (Methicillin Resistant Staphylococcus Aureus) (DC), MRSA ( Methicillin Resistant Staphylococcus Aureus) (GEN), Cellulitis (DC), Cellulitis (GEN) Referrals: Mila Conner MD [Staff Provider] - Ajay Leal Jr., MD [Staff Provider] - Calixto Langford MD [Staff Provider] - Schuyler Contreras MD [Staff Provider] - <Rafael Vaughn - Last Filed: 02/14/17 10:41> Provider - Provider Date of Admission: 02/05/17 15:13 Attending physician: Gladys Menchaca DO Hospital Course - Lab Results Lab Results: Most Recent Lab Values WBC 11.8 K/uL (4.8-10.8) H 02/13/17 07:11 RBC 3.60 Mil/uL (4.40-5.90) L 02/13/17 07:11 Hgb 10.0 g/dL (12.0-18.0) L 02/13/17 07:11 Hct 28.9 % (35.0-51.0) L 02/13/17 07:11 MCV 80.3 fL (80.0-94.0) 02/13/17 07:11 MCH 27.7 pg (27.0-31.0) 02/13/17 07:11 MCHC 34.5 g/dL (33.0-37.0) 02/13/17 07:11 RDW 13.8 % (11.5-14.5) 02/13/17 07:11 Plt Count 264 K/uL (130-400) 02/13/17 07:11 MPV 8.4 fL (7.2-11.7) 02/13/17 07:11 Neut % (Auto) 62.5 % (50.0-75.0) 02/13/17 07:11 Lymph % (Auto) 24.6 % (20.0-40.0) 02/13/17 07:11 [place] % (Auto) 8.1 % (0.0-10.0) 02/13/17 07:11 Eos % (Auto) 3.5 % (0.0-4.0) 02/13/17 07:11 Baso % (Auto) 1.3 % (0.0-2.0) 02/13/17 07:11 Neut # 7.4 K/uL (1.8-7.0) H 02/13/17 07:11 Lymph # 2.9 K/uL (1.0-4.3) 02/13/17 07:11 [place] # 1.0 K/uL (0.0-0.8) H 02/13/17 07:11 Eos # 0.4 K/uL (0.0-0.7) 02/13/17 07:11 Baso # 0.2 K/uL (0.0-0.2) 02/13/17 07:11 PT 12.3 SECONDS (9.7-12.2) H 02/04/17 03:19 INR 1.1 02/04/17 03:19 APTT 29 SECONDS (21-34) 02/04/17 03:19 pO2 37 mm/Hg (30-55) 02/03/17 11:14 VBG pH 7.26 (7.32-7.43) L 02/03/17 11:14 VBG pCO2 39 mmHg (40-60) L 02/03/17 11:14 VBG HCO3 16.9 mmol/L 02/03/17 11:14 VBG Total CO2 18.7 mmol/L (22-28) L 02/03/17 11:14 VBG O2 Sat (Calc) 69.2 % (40-65) H 02/03/17 11:14 VBG Base Excess -9.0 mmol/L (0.0-2.0) L 02/03/17 11:14 VBG Potassium 5.2 mmol/L (3.6-5.2) 02/03/17 11:14 Sodium 142.0 mmol/l (132-148) 02/03/17 11:14 Chloride 113.0 mmol/L (98-107) H 02/03/17 11:14 Glucose 166 mg/dl (75-110) H 02/03/17 11:14 Lactate 1.6 mmol/L (0.7-2.1) 02/03/17 11:14 Sodium 134 mmol/L (132-148) 02/13/17 07:11 Potassium 3.9 mmol/L (3.6-5.2) 02/13/17 07:11 Chloride 102 mmol/L (98-107) 02/13/17 07:11 Carbon Dioxide 20 mmol/L (22-30) L 02/13/17 07:11 Anion Gap 16 (10-20) 02/13/17 07:11 BUN 22 mg/dL (9-20) H 02/13/17 07:11 Creatinine 1.1 MG/DL (0.8-1.5) 02/13/17 07:11 Est GFR ( Amer) > 60 02/13/17 07:11 Est GFR (Non-Af Amer) > 60 02/13/17 07:11 POC Glucose (mg/dL) 297 mg/dL (65-110) H 02/13/17 17:03 Random Glucose 198 mg/dL (75-110) H 02/13/17 07:11 Hemoglobin A1c 8.2 % (4.2-6.5) H 02/04/17 03:19 Calcium 8.7 mg/dl (8.6-10.4) 02/13/17 07:11 Phosphorus 3.2 mg/dL (2.5-4.5) 02/13/17 07:11 Magnesium 1.4 mg/dL (1.6-2.3) L 02/13/17 07:11 Iron 47 ug/dL (49-181) L 02/07/17 07:15 TIBC 310 ug/dL (250-450) 02/07/17 07:15 % Saturation 15 (20-55) L 02/07/17 07:15 Ferritin 107.0 ng/mL 02/07/17 07:15 Total Bilirubin 0.5 mg/dL (0.2-1.3) 02/13/17 07:11 AST 33 U/L (17-59) 02/13/17 07:11 ALT 37 U/L (21-72) 02/13/17 07:11 Alkaline Phosphatase 58 U/L (38-126) 02/13/17 07:11 Total Protein 6.0 g/dL (6.3-8.3) L 02/13/17 07:11 Albumin 3.5 g/dL (3.5-5.0) 02/13/17 07:11 Globulin 2.5 gm/dL (2.2-3.9) 02/13/17 07:11 Albumin/Globulin Ratio 1.4 (1.0-2.1) 02/13/17 07:11 Venous Blood Potassium 5.2 mmol/L (3.6-5.2) 02/03/17 11:14 Urine Color Straw (YELLOW) 02/05/17 06:13 Urine Clarity Clear (Clear) 02/05/17 06:13 Urine pH 5.0 (5.0-8.0) 02/05/17 06:13 Ur Specific Stopover 1.008 (1.003-1.030) 02/05/17 06:13 Urine Protein Negative mg/dL (NEGATIVE) 02/05/17 06:13 Urine Glucose (UA) Normal mg/dL (Normal) 02/05/17 06:13 Urine Ketones Negative mg/dL (NEGATIVE) 02/05/17 06:13 Urine Blood Negative (NEGATIVE) 02/05/17 06:13 Urine Nitrate Negative (NEGATIVE) 02/05/17 06:13 Urine Bilirubin Negative (NEGATIVE) 02/05/17 06:13 Urine Urobilinogen Normal mg/dL (0.2-1.0) 02/05/17 06:13 Ur Leukocyte Esterase Neg David/uL (Negative) 02/05/17 06:13 Urine WBC (Auto) < 1 /hpf (0-5) 02/05/17 06:13 Ur Squamous Epith Cells < 1 /hpf (0-5) 02/05/17 06:13 Ur Random Creatinine 76.8 mg/dL 02/07/17 22:24 U Random Total Protein 43.0 mg/dL (0.0-12.0) H 02/07/17 22:51 Ur Random Sodium 138 mmol/L 02/05/17 06:13 Ur Random Urea Nitrogn 223 mg/dL 02/05/17 08:31 Urine Microalbumin 212.8 mg/L (0.0-16.6) H 02/08/17 19:30 Vancomycin Trough 14.6 ug/mL (5.0-10.0) H 02/08/17 13:05 Random Vancomycin 16.65 ug/mL 02/04/17 17:19 Serum Ketones Negative (NEGATIVE) 02/03/17 11:37 Attending/Attestation - Attestation I have personally seen and examined this patient.: Yes I have fully participated in the care of the patient.: Yes I have reviewed all pertinent clinical information, including history, physical exam and plan: Yes Notes (Text): 02/14/17 10:39 Medical attending: Patient was seen and examined by me. Agree with the above note by the resident Patient has been waiting for placement and it is now available so will send today. He will be having rehab and additional days of abx thank you Rafael Vaughn
[2017-02-13 16:24] VITALS: BP 146/68; PULSE 63; TEMP 98.2; O2SAT 97
--- NOTE | 2017-03-05 19:40 | CARD ---
APPROVED REPORT EKG Measurement Heart [id number] <Conclusion> Normal sinus rhythm Left axis deviation Minimal voltage criteria for LVH, may be normal variant Abnormal ECG
== END 2017-02-13 18:08 | DRG 623 ==
LOC: C.ER 10:06 → C.3T 12:00 → C.5T 02-04 21:07 → OBSVTOIN 02-05 15:13 → C.3T 02-07 01:19 → C.5T 02-10 10:43
PROVIDERS: ADMIT Hospitalist; ATTEND Hospitalist
PROC: 0J9N3ZX Drainage of Right Lower Leg Subcutaneous Tissue and Fascia, Percutaneous Approach, Diagnostic (ICD-10-PCS; 2017-02-04)
PROC: 0JBN0ZZ Excision of Right Lower Leg Subcutaneous Tissue and Fascia, Open Approach (ICD-10-PCS; principal; 2017-02-04 13:00)
DX: E11.628 Type 2 diabetes mellitus with other skin complications (principal); L03.115 Cellulitis of right lower limb; N17.9 Acute kidney failure, unspecified; E11.22 Type 2 diabetes mellitus with diabetic chronic kidney disease; E87.5 Hyperkalemia; I12.9 Hypertensive chronic kidney disease with stage 1 through stage 4 chronic kidney disease, or unspecified chronic kidney disease; N18.3 Chronic kidney disease, stage 3 (moderate); D50.8 Other iron deficiency anemias; N44.2 Benign cyst of testis; M17.0 Bilateral primary osteoarthritis of knee; E78.5 Hyperlipidemia, unspecified; G30.9 Alzheimer's disease, unspecified; F02.80 Dementia in other diseases classified elsewhere, unspecified severity, without behavioral disturbance, psychotic disturbance, mood disturbance, and anxiety; Z98.49 Cataract extraction status, unspecified eye; Z79.4 Long term (current) use of insulin

== ENCOUNTER 2017-04-28 18:27 | Inpatient (IN) | payer MEDICARE, OTHER ==
[2017-04-28 18:27] VITALS: BMI 26.2
[2017-04-28 19:03] LABS: BASO % 0.3 % (0.0-2.0); EOS % 0.2 % (0.0-4.0); LYMPH # 0.4 K/uL (1.0-4.3); LYMPH % 4.3 % (20.0-40.0); MEAN CELL VOLUME 83.5 fL (80.0-94.0); MEAN CORPUSCULAR HGB CONC 33.6 g/dL (33.0-37.0); MEAN PLATELET VOLUME 8.8 fL (7.2-11.7); MONO # 0.3 K/uL (0.0-0.8); PLATELET COUNT 208 K/uL (130-400); RED CELL DISTRIBUTION WIDTH 14.5 % (11.5-14.5); WHITE BLOOD COUNT 10.2 K/uL (4.8-10.8)
[2017-04-28 19:05] LABS: VENOUS BLOOD GAS BASE EXCESS -4.7 mmol/L (0.0-2.0); VENOUS BLOOD GAS PCO2 33 mmHg (40-60); VENOUS BLOOD PH 7.38 (7.32-7.43)
[2017-04-28 19:11] LABS: POTASSIUM 3.4 mmol/L (3.6-5.2)
[2017-04-28 19:14] LABS: ALB/GLOB RATIO 1.3 (1.0-2.1); BILIRUBIN,TOTAL 2.1 mg/dL (0.2-1.3); CALCIUM 9.7 mg/dl (8.6-10.4); TOTAL PROTEIN 7.1 g/dL (6.3-8.3)
[2017-04-28] MEDS ORDERED: Sodium Chloride 0.9% 2,000 ML ONE ×2 (19:21→23:35)
[2017-04-28] MEDS ORDERED: Moxifloxacin IV 400mg/250ml NS 400 MG/250 ML BAG IV STA (19:50)
[2017-04-28] MEDS ORDERED: Cefepime 1 GM in Sodium Chloride 0.9% 50 ML IVPB STA (19:50)
[2017-04-28 20:19] LABS: RBC URINE < 1 /hpf (0-3); URINE BILIRUBIN NEGATIVE (NEGATIVE); URINE BLOOD NEGATIVE (NEGATIVE); URINE COLOR Yellow (YELLOW); URINE GLUCOSE (UA) 2+ mg/dL (Normal); URINE KETONE NEGATIVE (NEGATIVE); URINE LEUKOCYTE ESTERASE NEG Leu/uL (Negative); URINE PROTEIN 1+ mg/dL (NEGATIVE); URINE UROBILINOGEN NORMAL mg/dL (0.2-1.0); WBC URINE 13 /hpf (0-5)
[2017-04-28] MEDS ORDERED: Cefepime 1 GM in Sodium Chloride 0.9% 100 ML IVPB STA (20:24)
[2017-04-28] MEDS ORDERED: Moxifloxacin IV 400mg/250ml NS 0 MG/0 ML BAG IVPB ONE (20:24)
[2017-04-28] MEDS ORDERED: Moxifloxacin IV 400mg/250ml NS 400 MG/250 ML BAG IVPB ONE (20:27)
[2017-04-28 20:28] LABS: EOSINOPHIL 1 % (0-4); NEUTROPHIL 81 % (50-75); TOTAL CELLS COUNTED 100
[2017-04-28] MEDS ORDERED: Vancomycin 1 GM 1 GM/250 ML BAG IV ONE (21:00)
[2017-04-28 21:13] LABS: VENOUS BLOOD GAS BASE EXCESS -8.5 mmol/L (0.0-2.0); VENOUS BLOOD GAS PCO2 32 mmHg (40-60); VENOUS BLOOD PH 7.32 (7.32-7.43)
--- NOTE | 2017-04-28 22:52 | C.PDOC ---
History Of Present Illness Patient BRANDY from home for evaluation of fever, generalized weakness today. Patient states he has mild diffuse abdominal pain. He denies chest pain, SOB, vomiting, diarrhea, cough, dysuria/hematuria. Time Seen by Provider: 04/28/17 18:44 Chief Complaint (Nursing): Fever History Per: Patient History/Exam Limitations: other (poor historian) Onset/Duration Of Symptoms: Days (1) Current Symptoms Are (Timing): Still Present Severity: Mild Location Of Pain/Discomfort: Diffuse Quality Of Discomfort: "Pain" Associated Symptoms: denies: Fever, Nausea, Vomiting Past Medical History Reviewed: Historical Data, Nursing Documentation, Vital Signs Vital Signs: Last Vital Signs Temp 97.9 F 05/06/17 15:28 Pulse 84 05/06/17 15:40 Resp 20 05/06/17 15:28 BP 120/67 05/06/17 15:28 Pulse Ox 96 05/07/17 10:11 - Medical History PMH: Alzheimer's Disease, Anemia, Arthritis (BACK, BL KNEE), CVA, Dementia, Diabetes, HTN, Hypercholesterolemia, Hyperlipidemia - [facility] Procedures DILATION OF COMMON BILE DUCT WITH INTRALUMINAL DEVICE, ENDO (12/03/15) DRAINAGE OF R LOW LEG SUBCU/FASCIA, PERC APPROACH, DIAGN (02/05/17) EXCISION OF R LOW LEG SUBCU/FASCIA, OPEN APPROACH (02/05/17) EXCISION OF SMALL INTESTINE, ENDO, DIAGN (07/21/15) OCCUPATIONAL THERAPY (03/15/14) OTHER SPEECH THERAPY (03/20/14) PHYSICAL THERAPY NEC (11/23/13) RECREATIONAL THERAPY (11/23/13) RELEASE PERITONEUM, PERCUTANEOUS ENDOSCOPIC APPROACH (12/03/15) RESECTION OF GALLBLADDER, PERCUTANEOUS ENDOSCOPIC APPROACH (12/03/15) Family History: States: No Known Family Hx - Social History Hx Tobacco Use: No Hx Alcohol Use: No Hx Substance Use: No - Immunization History Hx Tetanus Toxoid Vaccination: No Hx Influenza Vaccination: Yes (2014) Hx Pneumococcal Vaccination: No Review Of Systems Except As Marked, All Systems Reviewed And Found Negative. Constitutional: Positive for: Fever Cardiovascular: Negative for: Chest Pain, Palpitations Respiratory: Negative for: Cough, Shortness of Breath Gastrointestinal: Positive for: Abdominal Pain. Negative for: Nausea, Vomiting , Diarrhea Genitourinary: Negative for: Dysuria, Hematuria Physical Exam - Physical Exam Appears: Well, Non-toxic, No Acute Distress, Other (warm to the touch ) Skin: Normal Color, Warm, Dry, No Rash Oral Mucosa: Moist Cardiovascular: Rhythm Regular Respiratory: Normal Breath Sounds, No Rales, No Rhonchi, No Wheezing Gastrointestinal/Abdominal: Bowel Sounds, Soft, Tenderness (mild diffuse TTP), No Distention, No Guarding, No Rebound, Other ((-) McBurney's, (-) Rovsing's) Back: Normal Inspection, No CVA Tenderness Extremity: No Pedal Edema, No Calf Tenderness, Other (B/L knees normal in appearance, no warmth to touch, no erythema or swelling ) Pulses: Left Dorsalis Pedis: Normal, Right Dorsalis Pedis: Normal Neurological/Psych: Other (awake, alert) ED Course And Treatment - Laboratory Results Result Diagrams: 05/02/17 11:13 05/02/17 11:13 ECG: Interpreted By Me, Viewed By Me (NSR 84 bpm, left axis deviation, LVH, no acute ST/T wave changes) ECG Interpretation: No Acute Changes O2 Sat by Pulse Oximetry: 96 (RA) Pulse Ox Interpretation: Normal - Radiology CXR: Interpreted by Me, Viewed By Me (no infiltrates/effusions) - Other Rad ct abd/pelvis X-Ray: Viewed By Me, Read By Radiologist Interpretation: Accession No. : [id number]. Patient Name / ID : YOLANDA HAMM / [id number]. Exam Date : 04/28/2017 22:43:17 ( Approved ). Study Comment : Sex / Age : M / 81Y. Creator : DINORA NARANJO. Dictator : Service Engine Repairer : Drug Enforcement Agent : DINORA NARANJO. Approver2 : Report Date : 2016 23:17:00. My Comment : . [facility] Division of Radiology. [address] [place] [address]. Tel. no. . . . Patient Name: HANSEL GUERRERO . Pt. Address: [address] [place] [address]. Rec #: [id number]. [place] [address]: Brittany Tabares DO Pt Order Location: [facility] : 1935 Male Age: 81 Order #: [id number]. Reason for exam: elevated liver enzymes. . . . . . CT Scan. . . ABD PELVIS W/O PO OR IV CONT Exam Date: 04/28/17. . This imaging exam was performed at [facility]. EXAM: CT Abdomen and Pelvis Without Intravenous Contrast. . CLINICAL HISTORY: 81 years old, male; Pain; Abdominal pain and other: Liver enzymes;. Generalized; Additional info: Elevated liver enzymes. . TECHNIQUE: Axial computed tomography images of the abdomen and pelvis without. intravenous contrast. All CT scans at this facility use one or more dose. reduction techniques, viz.: automated exposure control; ma/kV adjustment per. patient size (including targeted exams where dose is matched to indication;. i.e. head); or iterative reconstruction technique. Coronal and sagittal reformatted images were created and reviewed. . COMPARISON: CT - ABD PELVIS W/O PO OR IV CONT 12/03/2015 9:22:25 AM. . . . FINDINGS: Lower thorax: Small bilateral pleural effusions, with adjacent compressive. atelectasis. The heart is enlarged, without significant pericardial effusion. . ABDOMEN: Liver: The liver is enlarged. Gallbladder and bile ducts: The gallbladder is absent. No intra-extrahepatic. biliary ductal dilation. Pancreas: Limited evaluation secondary to the lack of intravenous contrast. No significant ductal dilatation is identified. No discrete mass is noted. Spleen: No acute findings. Adrenals: No acute findings. Kidneys and ureters: No obstructing stones. No hydronephrosis. Perinephric. inflammatory changes detected, a nonspecific finding. . . PELVIS: Bladder: No acute findings. Reproductive: No acute findings. Appendix : The appendix is of normal-caliber (series 3, image 127; series 601,. image 55 ). . ABDOMEN and PELVIS: Stomach and bowel: Mural thickening is identified within the rectum, an. interval change from previous examination performed 12/02. Direct. visualization is recommended. Peritoneum: No acute findings. Lymph nodes: Non-pathologically enlarged lymph nodes are identified within. the retroperitoneum, and at the root of the mesentery. Vasculature: No aortic aneurysm. Calcified atherosclerotic disease is. noted. Bones: No acute fracture. . IMPRESSION: Mural thickening within the rectum, an interval change from previous. examination for which direct visualization is recommended. Hepatomegaly. Cardiomegaly. Small bilateral pleural effusions with adjacent compressive atelectasis. . . Dictated By: Dinora Naranjo MD. Dictated Date/Time: 04/28/172316. Signed By: Dinora Naranjo MD. Date Signed: 04/28/172316. Transcribed By: [facility]. Transcribe Date/Time: 04/28/172316. LOULOU/MIGDALIA Progress Note: Blood work, UA, CXR, CT abd/pelvis ordered and reviewed. Patient given broad spectrum IV antibiotics, PO tylenol for fever. - Physician Consult Information Physician Contacted: Gerhard Malin Outcome Of Conversation: Discussed patient with Dr. Jan Malin, agrees with admission to his service. Disposition - Disposition Disposition: HOSPITALIZED Disposition Time: 23:24 Condition: STABLE - Clinical Impression Clinical Impression: Leukocytosis, Hepatomegaly, Generalized weakness, LFT elevation, Sepsis, Fever Decision To Admit - Pt Status Changed To: Hospital Disposition Of: Inpatient - Admit Certification Admit to Inpatient:: After my assessment, the patient will require hospitalization for at least two midnights. This is because of the severity of symptoms shown, intensity of services needed, and/or the medical risk in this patient being treated as an outpatient. - InPatient: Physician Admission Certification:: see notes - . Bed Request Type: Telemetry Admitting Physician: Gerhard Malin Patient Diagnosis: Fever, Generalized weakness, Hepatomegaly, LFT elevation, Leukocytosis, Sepsis
--- NOTE | 2017-04-28 23:18 | CT ---
EXAM: CT Abdomen and Pelvis Without Intravenous Contrast CLINICAL HISTORY: 81 years old, male; Pain; Abdominal pain and other: Liver enzymes; Generalized; Additional info: Elevated liver enzymes TECHNIQUE: Axial computed tomography images of the abdomen and pelvis without intravenous contrast. All CT scans at this facility use one or more dose reduction techniques, viz.: automated exposure control; ma/kV adjustment per patient size (including targeted exams where dose is matched to indication; i.e. head); or iterative reconstruction technique. Coronal and sagittal reformatted images were created and reviewed. COMPARISON: CT - ABD PELVIS W/O PO OR IV CONT 12/03/2015 9:22:25 AM FINDINGS: Lower thorax: Small bilateral pleural effusions, with adjacent compressive atelectasis. The heart is enlarged, without significant pericardial effusion. ABDOMEN: Liver: The liver is enlarged. Gallbladder and bile ducts: The gallbladder is absent. No intra-extrahepatic biliary ductal dilation. Pancreas: Limited evaluation secondary to the lack of intravenous contrast. No significant ductal dilatation is identified. No discrete mass is noted. Spleen: No acute findings. Adrenals: No acute findings. Kidneys and ureters: No obstructing stones. No hydronephrosis. Perinephric inflammatory changes detected, a nonspecific finding. PELVIS: Bladder: No acute findings. Reproductive: No acute findings. Appendix: The appendix is of normal-caliber (series 3, image 127; series 601, image 55). ABDOMEN and PELVIS: Stomach and bowel: Mural thickening is identified within the rectum, an interval change from previous examination performed 12/03/2015. Direct visualization is recommended. Peritoneum: No acute findings. Lymph nodes: Non-pathologically enlarged lymph nodes are identified within the retroperitoneum, and at the root of the mesentery. Vasculature: No aortic aneurysm. Calcified atherosclerotic disease is noted. Bones: No acute fracture. IMPRESSION: Mural thickening within the rectum, an interval change from previous examination for which direct visualization is recommended. Hepatomegaly. Cardiomegaly. Small bilateral pleural effusions with adjacent compressive atelectasis.
[2017-04-28] MEDS ORDERED: Vancomycin 1 GM 0 GM/0 ML BAG IVPB ONE (23:30)
[2017-04-28] MEDS ORDERED: Vancomycin 1 GM 1 GM/250 ML BAG IVPB ONE (23:33)
[2017-04-29] MEDS ORDERED: Potassium & Sodium Phosphate PO STA (00:33)
[2017-04-29] MEDS ORDERED: Cefepime 1 GM in Sodium Chloride 0.9% 50 ML IVPB SCH ×2 (02:15→06:00)
--- NOTE | 2017-04-29 07:51 | RAD ---
PROCEDURE: CHEST RADIOGRAPH, 1 VIEW HISTORY: fever COMPARISON: Comparison is made to 02/04/2017 FINDINGS: LUNGS: No evidence of new infiltrate or consolidation in the lungs. PLEURA: No pneumothorax or pleural fluid seen. CARDIOVASCULAR: Normal. OSSEOUS STRUCTURES: No significant abnormalities. VISUALIZED UPPER ABDOMEN: Normal. OTHER FINDINGS: None. IMPRESSION: No radiographic evidence of pneumonia.
[2017-04-29] MEDS: Levothyroxine 50 MCG TAB PO SCH (09:57)
[2017-04-29] MEDS: Metoprolol Succinate 100 mg XL Tab PO SCH (09:58)
[2017-04-29] MEDS: metroNIDAZOLE IV 500 mg/100 ml 500 MG/100 ML BAG IVPB SCH ×2 (09:58→21:35)
[2017-04-29] MEDS: Pantoprazole 40 mg EC Tab PO SCH (09:58)
[2017-04-29] MEDS ORDERED: FESOTERODINE FUMARATE 8 MG PO SCH (10:00)
[2017-04-29] MEDS: Enoxaparin 40 mg Syringe SC SCH (11:27)
[2017-04-29] MEDS ORDERED: Enoxaparin 40 mg Syringe ONE (11:28)
[2017-04-29 12:39] LABS: BASO % 0.3 % (0.0-2.0); EOS # 0.1 K/uL (0.0-0.7); EOS % 0.9 % (0.0-4.0); HEMATOCRIT 31.6 % (35.0-51.0); LYMPH # 1.3 K/uL (1.0-4.3); LYMPH % 10.8 % (20.0-40.0); MEAN CELL VOLUME 83.6 fL (80.0-94.0); MEAN CORPUSCULAR HEMOGLOBIN 27.5 pg (27.0-31.0); MEAN CORPUSCULAR HGB CONC 32.9 g/dL (33.0-37.0); MEAN PLATELET VOLUME 8.9 fL (7.2-11.7); MONO # 0.8 K/uL (0.0-0.8); MONO % 6.4 % (0.0-10.0); RED CELL DISTRIBUTION WIDTH 14.8 % (11.5-14.5)
[2017-04-29 12:50] LABS: CHLORIDE 114 mmol/L (98-107)
[2017-04-29 12:51] LABS: POTASSIUM 3.9 mmol/L (3.6-5.2); SODIUM 145 mmol/L (132-148)
[2017-04-29 12:53] LABS: BILIRUBIN,DIRECT 2.2 mg/dL (0.0-0.4); BILIRUBIN,TOTAL 3.1 mg/dL (0.2-1.3); CARBON DIOXIDE 19 mmol/L (22-30); GFR AFRICAN-AMERICAN > 60
[2017-04-29 12:54] LABS: ALB/GLOB RATIO 1.1 (1.0-2.1); ALKALINE PHOSPHATASE 392 U/L (38-126); ALT/SGPT 427 U/L (21-72); AST/SGOT 320 U/L (17-59); BLOOD UREA NITROGEN 19 mg/dL (9-20); CALCIUM 8.9 mg/dl (8.6-10.4); GLUCOSE,RANDOM 76 mg/dL (75-110); TOTAL PROTEIN 6.2 g/dL (6.3-8.3)
[2017-04-29 12:55] LABS: ALCOHOL SERUM < 10 mg/dl (0-10)
[2017-04-29 13:02] LABS: INR 1.3
--- NOTE | 2017-04-29 15:11 | CP.PCM.CON ---
<Reyes Ponce - Last Filed: 04/29/17 16:01> History of Present Illness - History of Present Illness History of Present Illness: PGY5 GI Fellow Consult Note Patient is an 81yo male with PMHx significant for Alzheimer's dementia, HTN, DM , hyperlipidemia, prior CVA, CAD and H pylori gastritis who presented to the hospital from home for evaluation of fever and generalized weakness. The patient is unable to provide any significant history given his cognitive impairment and no family is present at this time for additional history. Our service has been consulted for elevated LFTs and hepatomegaly. The patient was seen by our service one year ago for abdominal pain and transaminasemia. At that time, extensive work up revealed only fatty liver and LFTs improved without any intervention. On this admission he is found to have fever 104F ( rectal) as well as elevated LFTs in a mixed picture. He denies any abdominal pain, jaundice, nausea, vomiting, recent EtOH use. At present, he is comfortably resting without complaint. PMHx: See HPI PSHx: Cholecystectomy FHx: Discussed with patient and denies any significant family history, though limited given cognitive impairment Social: Denies tobacco, EtOH or illicit drug use Endo: 11/2015 - ERCP - duodenal ulcers and biliary stent placed (unclear if removed or fell out but not present on current imaging) 10/2015 - Colon - diverticulosis Review of Systems - Review of Systems Systems not reviewed;Unavailable: Dementia Past Patient History - Infectious Disease Hx of Infectious Diseases: None - Tetanus Immunizations Tetanus Immunization: Unknown - Past Medical History & Family History Past Medical History?: Yes - Past Social History Smoking Status: Never Smoked - CARDIAC Hx Hypercholesterolemia: Yes Hx Hypertension: Yes - PULMONARY Hx Respiratory Disorders: No - NEUROLOGICAL Hx Alzheimer's Disease: Yes Hx Dementia: Yes - HEENT Hx HEENT Problems: Yes Hx Cataracts: Yes (SURGERY) - RENAL Hx Chronic Kidney Disease: No - ENDOCRINE/METABOLIC Hx Endocrine Disorders: Yes Hx Diabetes Mellitus Type 2: Yes - HEMATOLOGICAL/ONCOLOGICAL Hx Anemia: Yes - INTEGUMENTARY Hx Dermatological Problems: No - MUSCULOSKELETAL/RHEUMATOLOGICAL Hx Arthritis: Yes (BACK, BL KNEE) - GASTROINTESTINAL Hx Gastrointestinal Disorders: Yes (''STOMACH BACTERIA'') - GENITOURINARY/GYNECOLOGICAL Hx Genitourinary Disorders: No - PSYCHIATRIC Hx Substance Use: No - SURGICAL HISTORY Hx Surgeries: Yes Hx Cataract Extraction: Yes Other/Comment: LEFT BEHIND EAR SURGERY FROM BLOOD CLOTS ,RIGHT HAND SURGERY - ANESTHESIA Hx Anesthesia: Yes Hx Anesthesia Reactions: No Hx Malignant Hyperthermia: No Meds Allergies/Adverse Reactions: Allergies Allergy/AdvReac Type Severity Reaction Status Date / Time No Known Allergies Allergy Verified 04/30/16 11:22 - Medications Medications: Current Medications Acetaminophen (Tylenol 325mg Tab) 650 mg PO Q6 PRN PRN Reason: Fever >100.4 F Amlodipine Besylate (Norvasc) 10 mg PO DAILY [facility] Last Admin: 04/29/17 09:58 Dose: 10 mg Ascorbic Acid (Vitamin C 250 Mg Tab) 250 mg PO DAILY [facility] Last Admin: 04/29/17 09:58 Dose: 250 mg Aspirin (Aspirin Chewable) 81 mg PO DAILY [facility] Last Admin: 04/29/17 09:57 Dose: 81 mg Clopidogrel Bisulfate (Plavix) 75 mg PO DAILY [facility] Last Admin: 04/29/17 09:58 Dose: 75 mg Enoxaparin Sodium (Lovenox) 40 mg SC DAILY [facility] Last Admin: 04/29/17 11:27 Dose: 40 mg Ferrous Sulfate (Feosol) 325 mg PO Q12 [facility] Last Admin: 04/29/17 09:57 Dose: 325 mg Home Med (Fesoterodine Fumarate [Toviaz]) 8 mg PO DAILY [facility] Metronidazole (Flagyl) 500 mg in 100 mls @ 100 mls/hr IVPB Q12 [facility] Last Admin: 04/29/17 09:58 Dose: 100 mls/hr Cefepime HCl 1 gm/ Sodium (Chloride) 50 mls @ 100 mls/hr IVPB Q12H [facility] Stop: 04/29/17 20:00 Last Admin: 04/29/17 06:13 Dose: 100 mls/hr Cefepime HCl 1 gm/ Sodium (Chloride) 100 mls @ 100 mls/hr IVPB Q12H [facility] Levothyroxine Sodium (Synthroid) 50 mcg PO DAILY@0630 [facility] Last Admin: 04/29/17 09:57 Dose: 50 mcg Metoprolol Succinate (Toprol Xl) 100 mg PO DAILY [facility] Last Admin: 04/29/17 09:58 Dose: 100 mg Pantoprazole Sodium (Protonix Ec Tab) 40 mg PO DAILY [facility] Last Admin: 04/29/17 09:58 Dose: 40 mg Physical Exam - Constitutional Appears: Non-toxic, No Acute Distress - Eye Exam Eye Exam: EOMI, PERRL. absent: Scleral icterus - ENT Exam ENT Exam: Mucous Membranes Moist - Respiratory Exam Respiratory Exam: Clear to Auscultation Bilateral. absent: Rales, Rhonchi, Wheezes - Cardiovascular Exam Cardiovascular Exam: RRR, +S1, +S2 - GI/Abdominal Exam GI & Abdominal Exam: Normal Bowel Sounds, Soft. absent: Distended, Firm, Guarding, Organomegaly, Rigid, Tenderness - Extremities Exam Extremities exam: Positive for: normal inspection. Negative for: pedal edema - Neurological Exam Neurological exam: Altered - Skin Skin Exam: Dry, Warm Results - Vital Signs Recent Vital Signs: Last Vital Signs Temp 97.8 F 04/29/17 14:53 Pulse 79 04/29/17 14:59 Resp 18 04/29/17 14:53 BP 124/62 04/29/17 14:53 Pulse Ox 94 L 04/29/17 14:53 - Labs Result Diagrams: 04/29/17 12:33 04/29/17 12:33 Labs: Laboratory Results - last 24 hr 04/29/17 04/29/17 04/29/17 12:33 12:33 12:33 WBC 12.0 H RBC 3.78 L Hgb 10.4 L Hct 31.6 L MCV 83.6 MCH 27.5 MCHC 32.9 L RDW 14.8 H Plt Count 190 MPV 8.9 Neut % (Auto) 81.6 H Lymph % (Auto) 10.8 L Stone % (Auto) 6.4 Eos % (Auto) 0.9 Baso % (Auto) 0.3 Neut # 9.8 H Lymph # 1.3 Stone # 0.8 Eos # 0.1 Baso # 0.0 PT 14.8 H INR 1.3 Sodium 145 Potassium 3.9 Chloride 114 H Carbon Dioxide 19 L Anion Gap 16 BUN 19 Creatinine 1.3 Est GFR ( Amer) > 60 Est GFR (Non-Af Amer) 53 POC Glucose (mg/dL) Random Glucose 76 Calcium 8.9 Total Bilirubin 3.1 H Direct Bilirubin 2.2 H AST 320 H D ALT 427 H D Alkaline Phosphatase 392 H D Total Protein 6.2 L Albumin 3.2 L Globulin 3.0 Albumin/Globulin Ratio 1.1 Acetaminophen Alcohol, Quantitative < 10 IgG 04/29/17 04/29/17 04/29/17 12:33 12:33 12:57 WBC RBC Hgb Hct MCV MCH MCHC RDW Plt Count MPV Neut % (Auto) Lymph % (Auto) Stone % (Auto) Eos % (Auto) Baso % (Auto) Neut # Lymph # Stone # Eos # Baso # PT INR Sodium Potassium Chloride Carbon Dioxide Anion Gap BUN Creatinine Est GFR ( Amer) Est GFR (Non-Af Amer) POC Glucose (mg/dL) 85 Random Glucose Calcium Total Bilirubin Direct Bilirubin AST ALT Alkaline Phosphatase Total Protein Albumin Globulin Albumin/Globulin Ratio Acetaminophen < 10.0 L Alcohol, Quantitative IgG 484.4 L Assessment & Plan - Assessment and Plan (Free Text) Assessment: Patient is an 81yo male with PMHx significant for Alzheimer's dementia, HTN, DM , hyperlipidemia, prior CVA, CAD and H pylori gastritis who presented to the hospital from home for evaluation of fever and generalized weakness -Elevated LFTs -Direct hyperbilirubinemia -Febrile illness -Alzheimer's dementia -HTN -DM Plan: -Suspect transient hypotension with underlying fatty liver as etiology of current elevation of LFTs -Pt asymptomatic at present -Check U/S abdomen with doppler -Acetaminophen and EtOH levels WNL -Autoimmune w/u sent: MERNA, AMA, ASMA, LKM-Ab -Hepatitis serologies remain negative -Monitor CMP - Date & Time Date: 04/29/17 Time: 14:00 <Gavino Damian - Last Filed: 04/29/17 16:35> Meds - Medications Medications: Current Medications Acetaminophen (Tylenol 325mg Tab) 650 mg PO Q6 PRN PRN Reason: Fever >100.4 F Amlodipine Besylate (Norvasc) 10 mg PO DAILY [facility] Last Admin: 04/29/17 09:58 Dose: 10 mg Ascorbic Acid (Vitamin C 250 Mg Tab) 250 mg PO DAILY [facility] Last Admin: 04/29/17 09:58 Dose: 250 mg Aspirin (Aspirin Chewable) 81 mg PO DAILY [facility] Last Admin: 04/29/17 09:57 Dose: 81 mg Clopidogrel Bisulfate (Plavix) 75 mg PO DAILY [facility] Last Admin: 04/29/17 09:58 Dose: 75 mg Enoxaparin Sodium (Lovenox) 40 mg SC DAILY [facility] Last Admin: 04/29/17 11:27 Dose: 40 mg Ferrous Sulfate (Feosol) 325 mg PO Q12 [facility] Last Admin: 04/29/17 09:57 Dose: 325 mg Home Med (Fesoterodine Fumarate [Toviaz]) 8 mg PO DAILY [facility] Metronidazole (Flagyl) 500 mg in 100 mls @ 100 mls/hr IVPB Q12 [facility] Last Admin: 04/29/17 09:58 Dose: 100 mls/hr Cefepime HCl 1 gm/ Sodium (Chloride) 100 mls @ 100 mls/hr IVPB Q12H [facility] Levothyroxine Sodium (Synthroid) 50 mcg PO DAILY@0630 [facility] Last Admin: 04/29/17 09:57 Dose: 50 mcg Metoprolol Succinate (Toprol Xl) 100 mg PO DAILY [facility] Last Admin: 04/29/17 09:58 Dose: 100 mg Pantoprazole Sodium (Protonix Ec Tab) 40 mg PO DAILY [facility] Last Admin: 04/29/17 09:58 Dose: 40 mg Results - Vital Signs Recent Vital Signs: Last Vital Signs Temp 97.8 F 04/29/17 14:53 Pulse 79 04/29/17 14:59 Resp 18 04/29/17 14:53 BP 124/62 04/29/17 14:53 Pulse Ox 94 L 04/29/17 14:53 - Labs Result Diagrams: 04/29/17 12:33 04/29/17 12:33 Labs: Laboratory Results - last 24 hr 04/29/17 04/29/17 04/29/17 12:33 12:33 12:33 WBC 12.0 H RBC 3.78 L Hgb 10.4 L Hct 31.6 L MCV 83.6 MCH 27.5 MCHC 32.9 L RDW 14.8 H Plt Count 190 MPV 8.9 Neut % (Auto) 81.6 H Lymph % (Auto) 10.8 L Stone % (Auto) 6.4 Eos % (Auto) 0.9 Baso % (Auto) 0.3 Neut # 9.8 H Lymph # 1.3 Stone # 0.8 Eos # 0.1 Baso # 0.0 PT 14.8 H INR 1.3 Sodium 145 Potassium 3.9 Chloride 114 H Carbon Dioxide 19 L Anion Gap 16 BUN 19 Creatinine 1.3 Est GFR ( Amer) > 60 Est GFR (Non-Af Amer) 53 POC Glucose (mg/dL) Random Glucose 76 Calcium 8.9 Total Bilirubin 3.1 H Direct Bilirubin 2.2 H AST 320 H D ALT 427 H D Alkaline Phosphatase 392 H D Total Protein 6.2 L Albumin 3.2 L Globulin 3.0 Albumin/Globulin Ratio 1.1 Acetaminophen Alcohol, Quantitative < 10 IgG 04/29/17 04/29/17 04/29/17 12:33 12:33 12:57 WBC RBC Hgb Hct MCV MCH MCHC RDW Plt Count MPV Neut % (Auto) Lymph % (Auto) Stone % (Auto) Eos % (Auto) Baso % (Auto) Neut # Lymph # Stone # Eos # Baso # PT INR Sodium Potassium Chloride Carbon Dioxide Anion Gap BUN Creatinine Est GFR ( Amer) Est GFR (Non-Af Amer) POC Glucose (mg/dL) 85 Random Glucose Calcium Total Bilirubin Direct Bilirubin AST ALT Alkaline Phosphatase Total Protein Albumin Globulin Albumin/Globulin Ratio Acetaminophen < 10.0 L Alcohol, Quantitative IgG 484.4 L Attending/Attestation - Attestation I have personally seen and examined this patient.: Yes I have fully participated in the care of the patient.: Yes I have reviewed all pertinent clinical information: Yes Notes (Text): 04/29/17 16:32 81 year old male with h/o dementia, HTN, DM, HLD, CVA, CAD, we are consulted for elevated LFTs. 1. Elevated LFTs Plan: -mixed hepatocellular / cholestatic pattern -possible h/o fatty liver disease considering DM -suspect perhaps transient hypotension / dehydration prior to admission considering renal insufficiency as well -lft pattern of downtrending transaminses with late peak/plateu of ischemic hepatitis would be consistent with this -need to r/o other etiologies -prior MRCP negative -recommend US abdomen with dopplers -autoimmune workup as above
--- NOTE | 2017-04-29 17:59 | CARD ---
APPROVED REPORT EKG Measurement Heart [id number] <Conclusion> Normal sinus rhythm Left axis deviation Minimal voltage criteria for LVH, may be normal variant Abnormal ECG
--- NOTE | 2017-04-29 18:05 | CP.PCM.HP ---
Past Patient History - Infectious Disease Hx of Infectious Diseases: None - Tetanus Immunizations Tetanus Immunization: Unknown - Past Medical History & Family History Past Medical History?: Yes - Past Social History Smoking Status: Never Smoked - CARDIAC Hx Hypercholesterolemia: Yes Hx Hypertension: Yes - PULMONARY Hx Respiratory Disorders: No - NEUROLOGICAL Hx Alzheimer's Disease: Yes Hx Dementia: Yes - HEENT Hx HEENT Problems: Yes Hx Cataracts: Yes (SURGERY) - RENAL Hx Chronic Kidney Disease: No - ENDOCRINE/METABOLIC Hx Endocrine Disorders: Yes Hx Diabetes Mellitus Type 2: Yes - HEMATOLOGICAL/ONCOLOGICAL Hx Anemia: Yes - INTEGUMENTARY Hx Dermatological Problems: No - MUSCULOSKELETAL/RHEUMATOLOGICAL Hx Arthritis: Yes (BACK, BL KNEE) - GASTROINTESTINAL Hx Gastrointestinal Disorders: Yes (''STOMACH BACTERIA'') - GENITOURINARY/GYNECOLOGICAL Hx Genitourinary Disorders: No - PSYCHIATRIC Hx Substance Use: No - SURGICAL HISTORY Hx Surgeries: Yes Hx Cataract Extraction: Yes Other/Comment: LEFT BEHIND EAR SURGERY FROM BLOOD CLOTS ,RIGHT HAND SURGERY - ANESTHESIA Hx Anesthesia: Yes Hx Anesthesia Reactions: No Hx Malignant Hyperthermia: No Meds Allergies/Adverse Reactions: Allergies Allergy/AdvReac Type Severity Reaction Status Date / Time No Known Allergies Allergy Verified 04/30/16 11:22 Physical Exam - Constitutional Appears: Well - Head Exam Head Exam: ATRAUMATIC, NORMAL INSPECTION, NORMOCEPHALIC - Eye Exam Eye Exam: EOMI, Normal appearance, PERRL Pupil Exam: NORMAL ACCOMODATION, PERRL - ENT Exam ENT Exam: Mucous Membranes Moist, Normal Exam - Neck Exam Neck exam: Positive for: Normal Inspection - Respiratory Exam Respiratory Exam: Decreased Breath Sounds - Cardiovascular Exam Cardiovascular Exam: REGULAR RHYTHM, +S1, +S2 - GI/Abdominal Exam GI & Abdominal Exam: Diminished Bowel Sounds, Soft - Rectal Exam Rectal Exam: Deferred Results - Vital Signs Recent Vital Signs: Last Vital Signs Temp 97.8 F 04/29/17 14:53 Pulse 79 04/29/17 14:59 Resp 18 04/29/17 14:53 BP 124/62 04/29/17 14:53 Pulse Ox 94 L 04/29/17 14:53 - Labs Result Diagrams: 04/29/17 12:33 04/29/17 12:33 Labs: Laboratory Results - last 24 hr 04/29/17 04/29/17 04/29/17 12:33 12:33 12:33 WBC 12.0 H RBC 3.78 L Hgb 10.4 L Hct 31.6 L MCV 83.6 MCH 27.5 MCHC 32.9 L RDW 14.8 H Plt Count 190 MPV 8.9 Neut % (Auto) 81.6 H Lymph % (Auto) 10.8 L Sierra % (Auto) 6.4 Eos % (Auto) 0.9 Baso % (Auto) 0.3 Neut # 9.8 H Lymph # 1.3 Sierra # 0.8 Eos # 0.1 Baso # 0.0 PT 14.8 H INR 1.3 Sodium 145 Potassium 3.9 Chloride 114 H Carbon Dioxide 19 L Anion Gap 16 BUN 19 Creatinine 1.3 Est GFR ( Amer) > 60 Est GFR (Non-Af Amer) 53 POC Glucose (mg/dL) Random Glucose 76 Calcium 8.9 Total Bilirubin 3.1 H Direct Bilirubin 2.2 H AST 320 H D ALT 427 H D Alkaline Phosphatase 392 H D Total Protein 6.2 L Albumin 3.2 L Globulin 3.0 Albumin/Globulin Ratio 1.1 Acetaminophen Alcohol, Quantitative < 10 IgG 04/29/17 04/29/17 04/29/17 12:33 12:33 12:57 WBC RBC Hgb Hct MCV MCH MCHC RDW Plt Count MPV Neut % (Auto) Lymph % (Auto) Sierra % (Auto) Eos % (Auto) Baso % (Auto) Neut # Lymph # Sierra # Eos # Baso # PT INR Sodium Potassium Chloride Carbon Dioxide Anion Gap BUN Creatinine Est GFR ( Amer) Est GFR (Non-Af Amer) POC Glucose (mg/dL) 85 Random Glucose Calcium Total Bilirubin Direct Bilirubin AST ALT Alkaline Phosphatase Total Protein Albumin Globulin Albumin/Globulin Ratio Acetaminophen < 10.0 L Alcohol, Quantitative IgG 484.4 L
--- NOTE | 2017-04-29 21:23 | US ---
EXAM: US Abdomen Complete CLINICAL HISTORY: 81 years old, male; Abnormal findings; Abnormal lab test; Other: Elevated lft; Additional info: Elevated lfts, R/O thrombus TECHNIQUE: Real-time ultrasound of the abdomen (complete) with image documentation. COMPARISON: No relevant prior studies available. FINDINGS: Liver: Fatty infiltration. No mass. No intrahepatic ductal dilatation. Gallbladder: Cholecystectomy. Common bile duct: Up to 1.0 cm in diameter. No stones. Pancreas: Unremarkable as visualized. Kidneys: Normal echogenicity. No hydronephrosis. Spleen: No splenomegaly. Aorta: Unremarkable. No aneurysm. Inferior vena cava: Unremarkable. Free fluid: No significant free fluid. Pleural space: Small RIGHT pleural effusion. IMPRESSION: 1. RIGHT pleural effusion. 2. Mild prominence of common bile duct. 3. Incidental/non-acute findings are described above. EXAM: US Duplex Arterial/Venous of the Abdomen, Complete CLINICAL HISTORY: 81 years old, male; Abnormal findings; Abnormal lab test; Other: Elevated lft; Additional info: Elevated lfts, R/O thrombus TECHNIQUE: Real-time duplex ultrasound scan of the arterial and venous flow of the abdomen with color Doppler flow and spectral waveform analysis. COMPARISON: No relevant prior studies available. FINDINGS: Portal veins: Patent portal vein. Hepatopetal flow. Hepatic veins: Patent hepatic veins. Splenic vein: Obscured by bowel gas. IMPRESSION: 1.No acute findings. 2.Non-acute findings are described above.
[2017-04-30] MEDS: Cefepime 1 GM in Sodium Chloride 0.9% 100 ML IVPB SCH ×2 (05:31→17:38)
[2017-04-30] MEDS: Levothyroxine 50 MCG TAB PO SCH (05:32)
--- NOTE | 2017-04-30 07:58 | CP.PCM.PN ---
Subjective - Date & Time of Evaluation Date of Evaluation: 04/30/17 Time of Evaluation: 09:00 - Subjective Subjective: PGY3 on medicine Dr. Malin service: Pt seen and examined at bedside this morning. No complaints overnight. No acute events overnight. Tolerating diet. Objective - Vital Signs/Intake and Output Vital Signs (last 24 hours): Temp Pulse Resp BP Pulse Ox 99.5 F 75 20 145/65 96 04/30/17 04:05 04/30/17 04:51 04/30/17 04:05 04/30/17 04:05 04/30/17 04:05 Intake and Output: 04/30/17 04/30/17 06:59 18:59 Output Total 400 Balance -400 - Medications Medications: Current Medications Acetaminophen (Tylenol 325mg Tab) 650 mg PO Q6 PRN PRN Reason: Fever >100.4 F Amlodipine Besylate (Norvasc) 10 mg PO DAILY [facility] Last Admin: 04/29/17 09:58 Dose: 10 mg Ascorbic Acid (Vitamin C 250 Mg Tab) 250 mg PO DAILY [facility] Last Admin: 04/29/17 09:58 Dose: 250 mg Aspirin (Aspirin Chewable) 81 mg PO DAILY [facility] Last Admin: 04/29/17 09:57 Dose: 81 mg Clopidogrel Bisulfate (Plavix) 75 mg PO DAILY [facility] Last Admin: 04/29/17 09:58 Dose: 75 mg Enoxaparin Sodium (Lovenox) 40 mg SC DAILY [facility] Last Admin: 04/29/17 11:27 Dose: 40 mg Ferrous Sulfate (Feosol) 325 mg PO Q12 [facility] Last Admin: 04/29/17 21:34 Dose: 325 mg Home Med (Fesoterodine Fumarate [Toviaz]) 8 mg PO DAILY [facility] Metronidazole (Flagyl) 500 mg in 100 mls @ 100 mls/hr IVPB Q12 [facility] Last Admin: 04/29/17 21:35 Dose: 100 mls/hr Cefepime HCl 1 gm/ Sodium (Chloride) 100 mls @ 100 mls/hr IVPB Q12H [facility] Last Admin: 04/30/17 05:31 Dose: 100 mls/hr Levothyroxine Sodium (Synthroid) 50 mcg PO DAILY@0630 [facility] Last Admin: 04/30/17 05:32 Dose: 50 mcg Metoprolol Succinate (Toprol Xl) 100 mg PO DAILY [facility] Last Admin: 04/29/17 09:58 Dose: 100 mg Pantoprazole Sodium (Protonix Ec Tab) 40 mg PO DAILY [facility] Last Admin: 04/29/17 09:58 Dose: 40 mg - Labs Labs: 04/29/17 12:33 04/29/17 12:33 PT 14.8 SECONDS (9.7-12.2) H 04/29/17 12:33 INR 1.3 04/29/17 12:33 - Constitutional Appears: Non-toxic, No Acute Distress - Head Exam Head Exam: ATRAUMATIC, NORMOCEPHALIC - Eye Exam Eye Exam: Normal appearance Pupil Exam: NORMAL ACCOMODATION - Respiratory Exam Respiratory Exam: Clear to Ausculation Bilateral, NORMAL BREATHING PATTERN. absent: Rhonchi, Wheezes - Cardiovascular Exam Cardiovascular Exam: REGULAR RHYTHM, +S1, +S2. absent: Gallop, Rubs - GI/Abdominal Exam GI & Abdominal Exam: Soft, Normal Bowel Sounds. absent: Distended, Tenderness - Neurological Exam Neurological Exam: Alert, Awake, Oriented x3 - Psychiatric Exam Psychiatric exam: Normal Mood - Skin Skin Exam: Intact Assessment and Plan - Assessment and Plan (Free Text) Assessment: Sepsis 04/28 blood culture positive for gram negative rods. Also with leukocytosis and fever on admission. ID Dr. Langford consulted, help appreciated. Cefepime 1g IV q12H (started 04/30) Flagyl 500mg IV q12H (started 04/29) Elevated LFT Trending down, will f/u today's LFT. GI Dr. Damian consulted, help appreciated. Abdominal ultrasound noted fatty liver without other acute etiologies. CT abdomen showed mural thickening in rectum, hepatomegaly and cardiomegaly. F/U autoimmune workup per GI. HTN Continue Norvasc 10mg PO daily and Toprol XL 100mg PO daily. Hypothyroidism Continue Synthroid 50mcg PO daily. DM RISS, accuchecks. Hx of CAD Plavix on hold per GI. Prophylactic measure Lovenox, Protonix and SCD. Management as per Dr. Malin.
--- NOTE | 2017-04-30 08:41 | CP.PCM.PN ---
<Reyes Ponce - Last Filed: 04/30/17 08:36> Subjective - Date & Time of Evaluation Date of Evaluation: 04/30/17 Time of Evaluation: 06:00 - Subjective Subjective: PGY5 GI Fellow Progress Note Patient seen and examined bedside this morning. The patient continues to deny any symptoms at this time. No abdominal pain, nausea, vomiting, fever, chills. No issues overnight. 12 system ROS performed and negative except where stated. Objective - Vital Signs/Intake and Output Vital Signs (last 24 hours): Temp Pulse Resp BP Pulse Ox 99.5 F 78 20 130/64 95 04/30/17 07:08 04/30/17 07:08 04/30/17 07:08 04/30/17 07:08 04/30/17 07:08 Intake and Output: 04/30/17 04/30/17 06:59 18:59 Output Total 400 Balance -400 - Medications Medications: Current Medications Acetaminophen (Tylenol 325mg Tab) 650 mg PO Q6 PRN PRN Reason: Fever >100.4 F Amlodipine Besylate (Norvasc) 10 mg PO DAILY [facility] Last Admin: 04/29/17 09:58 Dose: 10 mg Ascorbic Acid (Vitamin C 250 Mg Tab) 250 mg PO DAILY [facility] Last Admin: 04/29/17 09:58 Dose: 250 mg Aspirin (Aspirin Chewable) 81 mg PO DAILY [facility] Last Admin: 04/29/17 09:57 Dose: 81 mg Clopidogrel Bisulfate (Plavix) 75 mg PO DAILY [facility] Last Admin: 04/29/17 09:58 Dose: 75 mg Enoxaparin Sodium (Lovenox) 40 mg SC DAILY [facility] Last Admin: 04/29/17 11:27 Dose: 40 mg Ferrous Sulfate (Feosol) 325 mg PO Q12 [facility] Last Admin: 04/29/17 21:34 Dose: 325 mg Home Med (Fesoterodine Fumarate [Toviaz]) 8 mg PO DAILY [facility] Metronidazole (Flagyl) 500 mg in 100 mls @ 100 mls/hr IVPB Q12 [facility] Last Admin: 04/29/17 21:35 Dose: 100 mls/hr Cefepime HCl 1 gm/ Sodium (Chloride) 100 mls @ 100 mls/hr IVPB Q12H [facility] Last Admin: 04/30/17 05:31 Dose: 100 mls/hr Levothyroxine Sodium (Synthroid) 50 mcg PO DAILY@0630 [facility] Last Admin: 04/30/17 05:32 Dose: 50 mcg Metoprolol Succinate (Toprol Xl) 100 mg PO DAILY [facility] Last Admin: 04/29/17 09:58 Dose: 100 mg Pantoprazole Sodium (Protonix Ec Tab) 40 mg PO DAILY [facility] Last Admin: 04/29/17 09:58 Dose: 40 mg - Labs Labs: 04/29/17 12:33 04/29/17 12:33 PT 14.8 SECONDS (9.7-12.2) H 04/29/17 12:33 INR 1.3 04/29/17 12:33 - Constitutional Appears: Non-toxic, No Acute Distress - Eye Exam Eye Exam: EOMI, PERRL - ENT Exam ENT Exam: Mucous Membranes Moist - Respiratory Exam Respiratory Exam: Clear to Ausculation Bilateral. absent: Rales, Rhonchi, Wheezes - Cardiovascular Exam Cardiovascular Exam: RRR, +S1, +S2 - GI/Abdominal Exam GI & Abdominal Exam: Soft, Normal Bowel Sounds. absent: Distended, Firm, Guarding, Rigid, Tenderness, Organomegaly - Extremities Exam Extremities Exam: Normal Inspection. absent: Pedal Edema - Neurological Exam Neurological Exam: Altered, Awake. absent: Oriented x3 - Psychiatric Exam Psychiatric exam: Normal Affect, Normal Mood - Skin Skin Exam: Dry, Warm Assessment and Plan - Assessment and Plan (Free Text) Assessment: Patient is an 81yo male with PMHx significant for Alzheimer's dementia, HTN, DM , hyperlipidemia, prior CVA, CAD and H pylori gastritis who presented to the hospital from home for evaluation of fever and generalized weakness -Elevated LFTs -GNR sepsis -Direct hyperbilirubinemia -Febrile illness -Alzheimer's dementia -HTN -DM Plan: -Fever, leukocytosis and 2/2 GNR in blood - sepsis -LFTs possibly a result of sepsis/hypotension/dehydration with underlying fatty liver but must rule out biliary disease or underlying malignancy -Awaiting AM lab work - monitor LFTs -U/S abdomen - no evidence of thrombus/vascular occlusion; fatty liver noted -Autoimmune w/u pending: MERNA, AMA, ASMA, LKM-Ab -Hepatitis serologies negative -Will hold Plavix for now in anticipation of possible intervention in coming days if needed; will follow closely <Bernardo,Gabriel Y - Last Filed: 04/30/17 14:57> Objective - Vital Signs/Intake and Output Vital Signs (last 24 hours): Temp Pulse Resp BP Pulse Ox 99.5 F 78 20 130/64 95 04/30/17 07:08 04/30/17 07:08 04/30/17 07:08 04/30/17 07:08 04/30/17 07:08 Intake and Output: 04/30/17 04/30/17 06:59 18:59 Output Total 400 200 Balance -400 -200 - Medications Medications: Current Medications Acetaminophen (Tylenol 325mg Tab) 650 mg PO Q6 PRN PRN Reason: Fever >100.4 F Amlodipine Besylate (Norvasc) 10 mg PO DAILY [facility] Last Admin: 04/30/17 10:19 Dose: 10 mg Ascorbic Acid (Vitamin C 250 Mg Tab) 250 mg PO DAILY [facility] Last Admin: 04/30/17 10:24 Dose: 250 mg Aspirin (Aspirin Chewable) 81 mg PO DAILY [facility] Last Admin: 04/30/17 10:19 Dose: 81 mg Clopidogrel Bisulfate (Plavix) 75 mg PO DAILY [facility] Last Admin: 04/29/17 09:58 Dose: 75 mg Enoxaparin Sodium (Lovenox) 40 mg SC DAILY [facility] Last Admin: 04/30/17 10:19 Dose: 40 mg Famotidine (Pepcid) 20 mg PO DAILY [facility] Ferrous Sulfate (Feosol) 325 mg PO Q12 [facility] Last Admin: 04/30/17 10:19 Dose: 325 mg Home Med (Fesoterodine Fumarate [Toviaz]) 8 mg PO DAILY [facility] Metronidazole (Flagyl) 500 mg in 100 mls @ 100 mls/hr IVPB Q12 [facility] Last Admin: 04/30/17 10:20 Dose: 100 mls/hr Cefepime HCl 1 gm/ Sodium (Chloride) 100 mls @ 100 mls/hr IVPB Q12H [facility] Last Admin: 04/30/17 05:31 Dose: 100 mls/hr Insulin Human Regular (Novolin R) 0 unit SC ACHS [facility] PRN Reason: Protocol Levothyroxine Sodium (Synthroid) 50 mcg PO DAILY@0630 [facility] Last Admin: 04/30/17 05:32 Dose: 50 mcg Metoprolol Succinate (Toprol Xl) 100 mg PO DAILY [facility] Last Admin: 04/30/17 10:19 Dose: 100 mg - Labs Labs: 04/30/17 11:28 04/30/17 11:28 PT 14.8 SECONDS (9.7-12.2) H 04/29/17 12:33 INR 1.3 04/29/17 12:33 Attending/Attestation - Attestation I have personally seen and examined this patient.: Yes I have fully participated in the care of the patient.: Yes I have reviewed all pertinent clinical information, including history, physical exam and plan: Yes Notes (Text): 04/30/17 14:52 I have seen and examined patient with GI fellow. No acute events overnight, he is seen resting in bed appears comfortable. He denies abdominal pain, nausea, vomiting, fever/chills. Tolerating PO diet without difficulty. Temperature of 100.6 last night noted, review of vitals from today are normal. DM / HTN Dementia CVA on plavix Fever - sepsis, bacteremia Elevated LFTs with mainly direct hyperbilirubinemia, dilated CBD on US imaging - Diet as tolerated - Continue with antibiotic therapy, follow up blood culture sensitivities - LFTs trending down, continue to monitor, follow up autoimmune panel - Given clinical features of fever, gram negative bacteremia, elevated LFTs with dilated CBD - findings concerning for cholangitis, will plan for EUS +/- ERCP tomorrow with Dr. Damian. NPO after midnight, plavix dose from this morning held.
[2017-04-30] MEDS: Enoxaparin 40 mg Syringe SC SCH (10:19)
[2017-04-30] MEDS: Metoprolol Succinate 100 mg XL Tab PO SCH (10:19)
[2017-04-30] MEDS: Pantoprazole 40 mg EC Tab PO SCH (10:19)
[2017-04-30] MEDS: metroNIDAZOLE IV 500 mg/100 ml 500 MG/100 ML BAG IVPB SCH ×2 (10:20→21:11)
[2017-04-30 11:35] LABS: BASO # 0.1 K/uL (0.0-0.2); BASO % 0.5 % (0.0-2.0); EOS # 0.2 K/uL (0.0-0.7); EOS % 1.6 % (0.0-4.0); HEMATOCRIT 31.2 % (35.0-51.0); LYMPH # 1.3 K/uL (1.0-4.3); LYMPH % 12.1 % (20.0-40.0); MEAN CELL VOLUME 83.7 fL (80.0-94.0); MEAN CORPUSCULAR HEMOGLOBIN 27.7 pg (27.0-31.0); MEAN CORPUSCULAR HGB CONC 33.1 g/dL (33.0-37.0); MEAN PLATELET VOLUME 9.1 fL (7.2-11.7); MONO # 0.7 K/uL (0.0-0.8); MONO % 6.5 % (0.0-10.0); RED CELL DISTRIBUTION WIDTH 14.5 % (11.5-14.5)
[2017-04-30 11:53] LABS: CHLORIDE 108 mmol/L (98-107); POTASSIUM 3.8 mmol/L (3.6-5.2); SODIUM 139 mmol/L (132-148)
[2017-04-30 11:55] LABS: GFR AFRICAN-AMERICAN > 60
[2017-04-30 11:56] LABS: ALB/GLOB RATIO 1.1 (1.0-2.1); ALKALINE PHOSPHATASE 368 U/L (38-126); ALT/SGPT 301 U/L (21-72); AST/SGOT 119 U/L (17-59); BILIRUBIN,TOTAL 1.3 mg/dL (0.2-1.3); BLOOD UREA NITROGEN 13 mg/dL (9-20); CALCIUM 8.5 mg/dl (8.6-10.4); CARBON DIOXIDE 19 mmol/L (22-30); GLUCOSE,RANDOM 234 mg/dL (75-110); TOTAL PROTEIN 6.2 g/dL (6.3-8.3)
--- NOTE | 2017-04-30 16:35 | CP.PCM.PN ---
Subjective - Date & Time of Evaluation Date of Evaluation: 04/30/17 Time of Evaluation: 09:00 - Subjective Subjective: clinically same Objective - Vital Signs/Intake and Output Vital Signs (last 24 hours): Temp Pulse Resp BP Pulse Ox 98.7 F 75 20 133/74 96 04/30/17 15:26 04/30/17 15:26 04/30/17 15:26 04/30/17 15:26 04/30/17 15:26 Intake and Output: 04/30/17 04/30/17 06:59 18:59 Output Total 400 200 Balance -400 -200 - Medications Medications: Current Medications Acetaminophen (Tylenol 325mg Tab) 650 mg PO Q6 PRN PRN Reason: Fever >100.4 F Amlodipine Besylate (Norvasc) 10 mg PO DAILY [facility] Last Admin: 04/30/17 10:19 Dose: 10 mg Ascorbic Acid (Vitamin C 250 Mg Tab) 250 mg PO DAILY [facility] Last Admin: 04/30/17 10:24 Dose: 250 mg Aspirin (Aspirin Chewable) 81 mg PO DAILY [facility] Last Admin: 04/30/17 10:19 Dose: 81 mg Clopidogrel Bisulfate (Plavix) 75 mg PO DAILY [facility] Last Admin: 04/29/17 09:58 Dose: 75 mg Enoxaparin Sodium (Lovenox) 40 mg SC DAILY [facility] Last Admin: 04/30/17 10:19 Dose: 40 mg Famotidine (Pepcid) 20 mg PO DAILY [facility] Ferrous Sulfate (Feosol) 325 mg PO Q12 [facility] Last Admin: 04/30/17 10:19 Dose: 325 mg Home Med (Fesoterodine Fumarate [Toviaz]) 8 mg PO DAILY [facility] Metronidazole (Flagyl) 500 mg in 100 mls @ 100 mls/hr IVPB Q12 [facility] Last Admin: 04/30/17 10:20 Dose: 100 mls/hr Cefepime HCl 1 gm/ Sodium (Chloride) 100 mls @ 100 mls/hr IVPB Q12H [facility] Last Admin: 04/30/17 05:31 Dose: 100 mls/hr Insulin Human Regular (Novolin R) 0 unit SC ACHS [facility] PRN Reason: Protocol Levothyroxine Sodium (Synthroid) 50 mcg PO DAILY@0630 [facility] Last Admin: 04/30/17 05:32 Dose: 50 mcg Metoprolol Succinate (Toprol Xl) 100 mg PO DAILY [facility] Last Admin: 04/30/17 10:19 Dose: 100 mg - Labs Labs: 04/30/17 11:28 04/30/17 11:28 PT 14.8 SECONDS (9.7-12.2) H 04/29/17 12:33 INR 1.3 04/29/17 12:33 - Head Exam Head Exam: ATRAUMATIC, NORMAL INSPECTION, NORMOCEPHALIC - Eye Exam Eye Exam: EOMI, Normal appearance, PERRL Pupil Exam: NORMAL ACCOMODATION, PERRL - ENT Exam ENT Exam: Mucous Membranes Moist, Normal Exam - Neck Exam Neck Exam: Full ROM, Normal Inspection. absent: Lymphadenopathy - Respiratory Exam Respiratory Exam: Decreased Breath Sounds - Cardiovascular Exam Cardiovascular Exam: REGULAR RHYTHM, +S1, +S2 - GI/Abdominal Exam GI & Abdominal Exam: Soft, Diminished Bowel Sounds - Rectal Exam Rectal Exam: Deferred
[2017-04-30] MEDS: (Novolin R) Insulin Human Regular 100 units/ml vial SC SCH ×2 (17:55→22:03)
--- NOTE | 2017-04-30 18:41 | CP.PCM.CON ---
History of Present Illness - History of Present Illness History of Present Illness: 81yo male with PMHx significant for Alzheimer's dementia, HTN, DM, hyperlipidemia, prior CVA, CAD and H pylori gastritis who presented to the hospital from home for evaluation of fever and generalized weakness. The patient is unable to provide any significant history given his cognitive impairment Blood c/s + for gram neg rods PMHx: with PMHx significant for Alzheimer's dementia, HTN, DM, hyperlipidemia, prior CVA, CAD and H pylori gastritis who SH cholecystectomy denies any significant family history, though limited given cognitive impairment Social: Denies tobacco, EtOH or illicit drug use Endo: 11/2015 - ERCP - duodenal ulcers and biliary stent placed (unclear if removed or fell out but not present on current imaging) 10/2015 - Colon - diverticulosis Review of Systems - Review of Systems Systems not reviewed;Unavailable: Altered Mental Status All systems: reviewed and no additional remarkable complaints except - Constitutional Constitutional: As Per HPI - EENT Eyes: absent: As Per HPI, Blind Spots, Blurred Vision, Change in Vision, Decreased Night Vision, Diplopia, Discharge, Dry Eye, Exophthalmos, Floaters, Irritation, Itchy Eyes, Loss of Peripheral Vision, Pain, Photophobia, Requires Corrective Lenses, Sees Flashes, Spots in Vision, Tunnel Vision, Other Visual Disturbances, Loss of Vision, Other Ears: absent: As Per HPI, Decreased Hearing, Ear Discharge, Ear Pain, Tinnitus, Abnormal Hearing, Disequilibrium, Dizziness, Other Nose/Mouth/Throat: absent: As Per HPI, Epistaxis, Nasal Congestion, Nasal Discharge, Nasal Obstruction, Nasal Trauma, Nose Pain, Post Nasal Drip, Sinus Pain, Sinus Pressure, Bleeding Gums, Change in Voice, Dental Pain, Dry Mouth, Dysphagia, Halitosis, Hoarsness, Lip Swelling, Mouth Lesions, Mouth Pain, Odynophagia, Sore Throat, Throat Swelling, Tongue Swelling, Facial Pain, Neck Pain, Neck Mass, Other - Cardiovascular Cardiovascular: absent: As Per HPI, Acrocyanosis, Chest Pain, Chest Pain at Rest , Chest Pain with Activity, Claudication, Diaphoresis, Dyspnea, Dyspnea on Exertion, Edema, Irregular Heart Rhythm, Pain Radiating to Arm/Neck/Jaw, Leg Edema, Leg Ulcers, Lightheadedness, Orthopnea, Palpitations, Paroxysmal Nocturnal Dyspnea, Pedal Edema, Radiating Pain, Rapid Heart Rate, Slow Heart Rate, Syncope, Other - Respiratory Respiratory: absent: As Per HPI, Cough, Dyspnea, Hemoptysis, Dyspnea on Exertion , Wheezing, Snoring, Stridor, Pain on Inspiration, Chest Congestion, Excessive Mucous Production, Change in Mucous Color, Pain with Coughing, Other - Gastrointestinal Gastrointestinal: As Per HPI - Genitourinary Genitourinary: absent: As Per HPI, Change in Urinary Stream, Difficulty Urinating, Dysuria, Flank Pain, Hematuria, Pyuria, Nocturia, Urinary Incontinence, Urinary Frequency, Urinary Hesitance, Urinary Urgency, Voiding Freq/Small Amts, Freq UTI, Hx Renal/Bladder Calculi, Hx /Renal Surgery, Bladder Distension, Other - Musculoskeletal Musculoskeletal: absent: As Per HPI, Abnormal Gait, Arthralgias, Atrophy, Back Pain, Deformity, Joint Swelling, Limited Range of Motion, Loss of Height, Muscle Cramps, Muscle Weakness, Myalgias, Neck Pain, Numbness, Radiating Pain into Limb, Stiffness, Tingling, Other - Integumentary Integumentary: absent: As Per HPI, Acne, Alopecia, Bleeding Lesions, Change in Hair, Change in Nails, Change in Pigmentation, Changing Lesions, Dry Skin, Erythema, Furuncle, Hirsutism, Lesions, New Lesions, Non-Healing Lesions, Photosensitivity, Pruritus, Rash, Skin Pain, Skin Ulcer, Sores, Striae, Swelling , Unusual Bruising, Wounds, Jaundice, Other - Neurological Neurological: absent: As Per HPI, Abnormal Gait, Abnormal Hearing, Abnormal Movements, Abnormal Speech, Behavioral Changes, Burning Sensations, Confusion, Convulsions, Disequilibrium, Dizziness, Numbness, Focal Weakness, Frequent Falls , Headaches, Lack of Coordination, Loss of Vision, Memory Loss, Paresthesias, Radicular Pain, Restless Legs, Sensory Deficit, Syncope, Tingling, Tremor, Vertigo, Weakness, Other Visual Disturbances, Other - Psychiatric Psychiatric: absent: As Per HPI, Abnormal Sleep Pattern, Anhedonia, Anxiety, Auditory Hallucinations, Behavioral Changes, Change in Appetite, Change in Libido, Confusion, Depression, Difficulty Concentrating, Hallucinations, Homicidal Ideation, Hopelessness, Irritability, Memory Loss, Mood Swings, Panic Attacks, Paranoia, Suicidal Ideation, Visual Hallucinations, Tactile Hallucinations, Other - Endocrine Endocrine: absent: As Per HPI, Change in Body Appearance, Change in Libido, Cold Intolorance, Deepening of Voice, Excessive Sweating, Fatigue, Flushing, Heat Intolorance, Increase in Ring/Shoe/Hat Size, Palpitations, Polydipsia, Polyphagia, Polyuria, Other - Hematologic/Lymphatic Hematologic: absent: As Per HPI, Easy Bleeding, Easy Bruising, Lymphadenopathy, Other Past Patient History - Infectious Disease Hx of Infectious Diseases: None - Tetanus Immunizations Tetanus Immunization: Unknown - Past Medical History & Family History Past Medical History?: Yes - Past Social History Smoking Status: Never Smoked - CARDIAC Hx Hypercholesterolemia: Yes Hx Hypertension: Yes - PULMONARY Hx Respiratory Disorders: No - NEUROLOGICAL Hx Alzheimer's Disease: Yes Hx Dementia: Yes - HEENT Hx HEENT Problems: Yes Hx Cataracts: Yes (SURGERY) - RENAL Hx Chronic Kidney Disease: No - ENDOCRINE/METABOLIC Hx Endocrine Disorders: Yes Hx Diabetes Mellitus Type 2: Yes - HEMATOLOGICAL/ONCOLOGICAL Hx Anemia: Yes - INTEGUMENTARY Hx Dermatological Problems: No - MUSCULOSKELETAL/RHEUMATOLOGICAL Hx Arthritis: Yes (BACK, BL KNEE) - GASTROINTESTINAL Hx Gastrointestinal Disorders: Yes (''STOMACH BACTERIA'') - GENITOURINARY/GYNECOLOGICAL Hx Genitourinary Disorders: No - PSYCHIATRIC Hx Substance Use: No - SURGICAL HISTORY Hx Surgeries: Yes Hx Cataract Extraction: Yes Other/Comment: LEFT BEHIND EAR SURGERY FROM BLOOD CLOTS ,RIGHT HAND SURGERY - ANESTHESIA Hx Anesthesia: Yes Hx Anesthesia Reactions: No Hx Malignant Hyperthermia: No Meds Allergies/Adverse Reactions: Allergies Allergy/AdvReac Type Severity Reaction Status Date / Time No Known Allergies Allergy Verified 04/30/16 11:22 - Medications Medications: Current Medications Acetaminophen (Tylenol 325mg Tab) 650 mg PO Q6 PRN PRN Reason: Fever >100.4 F Amlodipine Besylate (Norvasc) 10 mg PO DAILY [facility] Last Admin: 04/30/17 10:19 Dose: 10 mg Ascorbic Acid (Vitamin C 250 Mg Tab) 250 mg PO DAILY [facility] Last Admin: 04/30/17 10:24 Dose: 250 mg Aspirin (Aspirin Chewable) 81 mg PO DAILY [facility] Last Admin: 04/30/17 10:19 Dose: 81 mg Clopidogrel Bisulfate (Plavix) 75 mg PO DAILY [facility] Last Admin: 04/29/17 09:58 Dose: 75 mg Enoxaparin Sodium (Lovenox) 40 mg SC DAILY [facility] Last Admin: 04/30/17 10:19 Dose: 40 mg Famotidine (Pepcid) 20 mg PO DAILY [facility] Ferrous Sulfate (Feosol) 325 mg PO Q12 [facility] Last Admin: 04/30/17 10:19 Dose: 325 mg Home Med (Fesoterodine Fumarate [Toviaz]) 8 mg PO DAILY [facility] Metronidazole (Flagyl) 500 mg in 100 mls @ 100 mls/hr IVPB Q12 [facility] Last Admin: 04/30/17 10:20 Dose: 100 mls/hr Cefepime HCl 1 gm/ Sodium (Chloride) 100 mls @ 100 mls/hr IVPB Q12H [facility] Last Admin: 04/30/17 17:38 Dose: 100 mls/hr Insulin Human Regular (Novolin R) 0 unit SC ACHS [facility] PRN Reason: Protocol Last Admin: 04/30/17 17:55 Dose: 8 unit Levothyroxine Sodium (Synthroid) 50 mcg PO DAILY@0630 [facility] Last Admin: 04/30/17 05:32 Dose: 50 mcg Metoprolol Succinate (Toprol Xl) 100 mg PO DAILY [facility] Last Admin: 04/30/17 10:19 Dose: 100 mg Physical Exam - Constitutional Appears: Confused, Cachectic, Chronically Ill - Head Exam Head Exam: ATRAUMATIC, NORMAL INSPECTION, NORMOCEPHALIC - Eye Exam Eye Exam: EOMI, PERRL. absent: Scleral icterus - ENT Exam ENT Exam: Mucous Membranes Dry, Normal External Ear Exam - Neck Exam Neck exam: Negative for: Lymphadenopathy - Respiratory Exam Respiratory Exam: Decreased Breath Sounds, Clear to Auscultation Bilateral - Cardiovascular Exam Cardiovascular Exam: REGULAR RHYTHM, +S1, +S2 - GI/Abdominal Exam GI & Abdominal Exam: Diminished Bowel Sounds, Soft. absent: Tenderness - Rectal Exam Rectal Exam: Deferred - Exam Exam: NORMAL INSPECTION - Extremities Exam Extremities exam: Positive for: pedal pulses present. Negative for: calf tenderness, pedal edema, tenderness - Back Exam Back exam: absent: CVA tenderness (L), CVA tenderness (R) - Neurological Exam Neurological exam: Alert, Altered, CN II-XII Intact, Reflexes Normal - Psychiatric Exam Psychiatric exam: Normal Mood - Skin Skin Exam: Dry, Intact Results - Vital Signs Recent Vital Signs: Last Vital Signs Temp 98.7 F 04/30/17 15:26 Pulse 75 08/17/17 15:26 Resp 20 04/30/17 15:26 BP 133/74 04/30/17 15:26 Pulse Ox 96 04/30/17 15:26 - Labs Result Diagrams: 04/30/17 11:28 04/30/17 11:28 Labs: Laboratory Results - last 24 hr 04/29/17 04/29/17 04/29/17 12:33 17:41 21:42 WBC RBC Hgb Hct MCV MCH MCHC RDW Plt Count MPV Neut % (Auto) Lymph % (Auto) [place] % (Auto) Eos % (Auto) Baso % (Auto) Neut # Lymph # [place] # Eos # Baso # Sodium Potassium Chloride Carbon Dioxide Anion Gap BUN Creatinine Est GFR ( Amer) Est GFR (Non-Af Amer) POC Glucose (mg/dL) 152 H 201 H Random Glucose Calcium Total Bilirubin AST ALT Alkaline Phosphatase Total Creatine Kinase Total Protein Albumin Globulin Albumin/Globulin Ratio Anti-Mitochondrial Ab Negative Anti-Smooth Muscle Ab Negative 04/30/17 04/30/17 04/30/17 07:41 11:13 11:28 WBC 11.0 H RBC 3.73 L Hgb 10.3 L Hct 31.2 L MCV 83.7 MCH 27.7 MCHC 33.1 RDW 14.5 Plt Count 198 MPV 9.1 Neut % (Auto) 79.3 H Lymph % (Auto) 12.1 L [place] % (Auto) 6.5 Eos % (Auto) 1.6 Baso % (Auto) 0.5 Neut # 8.7 H Lymph # 1.3 [place] # 0.7 Eos # 0.2 Baso # 0.1 Sodium Potassium Chloride Carbon Dioxide Anion Gap BUN Creatinine Est GFR ( Amer) Est GFR (Non-Af Amer) POC Glucose (mg/dL) 121 H > 500 H* Random Glucose Calcium Total Bilirubin AST ALT Alkaline Phosphatase Total Creatine Kinase Total Protein Albumin Globulin Albumin/Globulin Ratio Anti-Mitochondrial Ab Anti-Smooth Muscle Ab 04/30/17 04/30/17 04/30/17 11:28 11:39 16:19 WBC RBC Hgb Hct MCV MCH MCHC RDW Plt Count MPV Neut % (Auto) Lymph % (Auto) [place] % (Auto) Eos % (Auto) Baso % (Auto) Neut # Lymph # [place] # Eos # Baso # Sodium 139 Potassium 3.8 Chloride 108 H Carbon Dioxide 19 L Anion Gap 16 BUN 13 Creatinine 1.2 Est GFR ( Amer) > 60 Est GFR (Non-Af Amer) 58 POC Glucose (mg/dL) 335 H 360 H Random Glucose 234 H Calcium 8.5 L Total Bilirubin 1.3 AST 119 H D ALT 301 H D Alkaline Phosphatase 368 H Total Creatine Kinase 74 Total Protein 6.2 L Albumin 3.2 L Globulin 3.0 Albumin/Globulin Ratio 1.1 Anti-Mitochondrial Ab Anti-Smooth Muscle Ab Assessment & Plan (1) AD (Alzheimer's disease) Status: Acute (2) Abdominal pain Status: Acute (3) CKD (chronic kidney disease) stage 3, GFR 30-59 ml/min Status: Acute (4) Diabetes mellitus type 2 in nonobese Status: Acute - Assessment and Plan (Free Text) Assessment: hx of MRSA bacteremia last admission now has gram neg sepsis - r/o GI source as urine c/s negative Plan: cont iv antibiotics may need gallium scan r/o occult abscess await ID of organism will need min 14 days IV rx
[2017-05-01] MEDS: Cefepime 1 GM in Sodium Chloride 0.9% 100 ML IVPB SCH ×2 (05:41→17:47)
[2017-05-01] MEDS: Levothyroxine 50 MCG TAB PO SCH (05:46)
[2017-05-01 06:31] LABS: BASO # 0.1 K/uL (0.0-0.2); BASO % 0.7 % (0.0-2.0); EOS # 0.3 K/uL (0.0-0.7); EOS % 3.7 % (0.0-4.0); HEMATOCRIT 30.3 % (35.0-51.0); LYMPH # 2.2 K/uL (1.0-4.3); LYMPH % 24.8 % (20.0-40.0); MEAN CELL VOLUME 82.8 fL (80.0-94.0); MEAN CORPUSCULAR HEMOGLOBIN 28.3 pg (27.0-31.0); MEAN CORPUSCULAR HGB CONC 34.2 g/dL (33.0-37.0); MEAN PLATELET VOLUME 8.9 fL (7.2-11.7); MONO # 0.8 K/uL (0.0-0.8); MONO % 9.3 % (0.0-10.0); RED CELL DISTRIBUTION WIDTH 14.5 % (11.5-14.5)
[2017-05-01 06:34] LABS: INR 1.1
[2017-05-01 06:46] LABS: ALB/GLOB RATIO 1.1 (1.0-2.1); ALKALINE PHOSPHATASE 298 U/L (38-126); ALT/SGPT 207 U/L (21-72); AST/SGOT 63 U/L (17-59); BILIRUBIN,TOTAL 0.8 mg/dL (0.2-1.3); BLOOD UREA NITROGEN 13 mg/dL (9-20); CALCIUM 8.3 mg/dl (8.6-10.4); CARBON DIOXIDE 18 mmol/L (22-30); CHLORIDE 111 mmol/L (98-107); GFR AFRICAN-AMERICAN > 60; GLUCOSE,RANDOM 114 mg/dL (75-110); POTASSIUM 3.4 mmol/L (3.6-5.2); SODIUM 140 mmol/L (132-148); TOTAL PROTEIN 5.7 g/dL (6.3-8.3)
[2017-05-01] MEDS: (Novolin R) Insulin Human Regular 100 units/ml vial SC SCH ×4 (08:21→21:43)
[2017-05-01] MEDS: metroNIDAZOLE IV 500 mg/100 ml 500 MG/100 ML BAG IVPB SCH ×2 (09:30→21:42)
[2017-05-01] MEDS: Metoprolol Succinate 100 mg XL Tab PO SCH (10:00)
[2017-05-01] MEDS: Enoxaparin 40 mg Syringe SC SCH (11:00)
[2017-05-01] MEDS: Tolterodine 4 mg ER Cap PO SCH (11:00)
[2017-05-01] MEDS ORDERED: Propofol 10 mg/ml Inj (20 ML) ONE (12:48)
[2017-05-01] MEDS ORDERED: Phenylephrine 10 mg/ml Inj ONE (13:40)
[2017-05-01] MEDS ORDERED: Lactated Ringer's 1,000 ML IV ONE (14:00)
[2017-05-01] MEDS ORDERED: Iohexol 240 (50 ml) ONE (16:57)
[2017-05-01] MEDS ORDERED: Indomethacin 50 MG Suppository PR ONE (17:02)
--- NOTE | 2017-05-01 18:41 | CP.PCM.PN ---
Subjective - Date & Time of Evaluation Date of Evaluation: 05/01/17 Time of Evaluation: 07:00 - Subjective Subjective: growing klebs in blood possible biliary source further investigation in progress Objective - Vital Signs/Intake and Output Vital Signs (last 24 hours): Temp Pulse Resp BP Pulse Ox 97 F L 60 22 141/58 L 96 05/01/17 15:15 05/01/17 16:00 05/01/17 16:00 05/01/17 16:00 05/01/17 16:00 Intake and Output: 05/01/17 05/01/17 06:59 18:59 Output Total 1500 Balance -1500 - Medications Medications: Current Medications Acetaminophen (Tylenol 325mg Tab) 650 mg PO Q6 PRN PRN Reason: Fever >100.4 F Amlodipine Besylate (Norvasc) 10 mg PO DAILY [facility] Last Admin: 05/01/17 10:00 Dose: 10 mg Ascorbic Acid (Vitamin C 250 Mg Tab) 250 mg PO DAILY [facility] Last Admin: 05/01/17 10:59 Dose: Not Given Aspirin (Aspirin Chewable) 81 mg PO DAILY [facility] Last Admin: 05/01/17 10:59 Dose: Not Given Clopidogrel Bisulfate (Plavix) 75 mg PO DAILY [facility] Last Admin: 04/29/17 09:58 Dose: 75 mg Enoxaparin Sodium (Lovenox) 40 mg SC DAILY [facility] Last Admin: 05/01/17 11:00 Dose: Not Given Famotidine (Pepcid) 20 mg PO DAILY [facility] Last Admin: 05/01/17 11:00 Dose: Not Given Ferrous Sulfate (Feosol) 325 mg PO Q12 [facility] Last Admin: 05/01/17 10:59 Dose: Not Given Metronidazole (Flagyl) 500 mg in 100 mls @ 100 mls/hr IVPB Q12 [facility] Last Admin: 05/01/17 09:30 Dose: 100 mls/hr Cefepime HCl 1 gm/ Sodium (Chloride) 100 mls @ 100 mls/hr IVPB Q12H [facility] Last Admin: 05/01/17 17:47 Dose: 100 mls/hr Insulin Human Regular (Novolin R) 0 unit SC ACHS [facility] PRN Reason: Protocol Last Admin: 05/01/17 18:04 Dose: 2 unit Levothyroxine Sodium (Synthroid) 50 mcg PO DAILY@0630 [facility] Last Admin: 05/01/17 05:46 Dose: 50 mcg Metoprolol Succinate (Toprol Xl) 100 mg PO DAILY [facility] Last Admin: 05/01/17 10:00 Dose: 100 mg Tolterodine Tartrate (Detrol La) 4 mg PO DAILY [facility] Last Admin: 05/01/17 11:00 Dose: Not Given - Labs Labs: 05/01/17 06:21 05/01/17 06:21 PT 12.1 SECONDS (9.7-12.2) 05/01/17 06:21 INR 1.1 05/01/17 06:21 Assessment and Plan (1) AD (Alzheimer's disease) Status: Acute (2) Abdominal pain Status: Acute (3) CKD (chronic kidney disease) stage 3, GFR 30-59 ml/min Status: Acute (4) Diabetes mellitus type 2 in nonobese Status: Acute
--- NOTE | 2017-05-01 19:03 | CP.PCM.PN ---
Subjective - Date & Time of Evaluation Date of Evaluation: 05/01/17 Time of Evaluation: 10:20 - Subjective Subjective: clinically same Objective - Vital Signs/Intake and Output Vital Signs (last 24 hours): Temp Pulse Resp BP Pulse Ox 97 F L 60 22 141/58 L 96 05/01/17 15:15 05/01/17 16:00 05/01/17 16:00 05/01/17 16:00 05/01/17 16:00 - Medications Medications: Current Medications Acetaminophen (Tylenol 325mg Tab) 650 mg PO Q6 PRN PRN Reason: Fever >100.4 F Amlodipine Besylate (Norvasc) 10 mg PO DAILY [facility] Last Admin: 05/01/17 10:00 Dose: 10 mg Ascorbic Acid (Vitamin C 250 Mg Tab) 250 mg PO DAILY [facility] Last Admin: 05/01/17 10:59 Dose: Not Given Aspirin (Aspirin Chewable) 81 mg PO DAILY [facility] Last Admin: 05/01/17 10:59 Dose: Not Given Clopidogrel Bisulfate (Plavix) 75 mg PO DAILY [facility] Last Admin: 04/29/17 09:58 Dose: 75 mg Enoxaparin Sodium (Lovenox) 40 mg SC DAILY [facility] Last Admin: 05/01/17 11:00 Dose: Not Given Famotidine (Pepcid) 20 mg PO DAILY [facility] Last Admin: 05/01/17 11:00 Dose: Not Given Ferrous Sulfate (Feosol) 325 mg PO Q12 [facility] Last Admin: 05/01/17 10:59 Dose: Not Given Metronidazole (Flagyl) 500 mg in 100 mls @ 100 mls/hr IVPB Q12 [facility] Last Admin: 05/01/17 09:30 Dose: 100 mls/hr Cefepime HCl 1 gm/ Sodium (Chloride) 100 mls @ 100 mls/hr IVPB Q12H [facility] Last Admin: 05/01/17 17:47 Dose: 100 mls/hr Insulin Human Regular (Novolin R) 0 unit SC ACHS [facility] PRN Reason: Protocol Last Admin: 05/01/17 18:04 Dose: 2 unit Levothyroxine Sodium (Synthroid) 50 mcg PO DAILY@0630 [facility] Last Admin: 05/01/17 05:46 Dose: 50 mcg Metoprolol Succinate (Toprol Xl) 100 mg PO DAILY [facility] Last Admin: 05/01/17 10:00 Dose: 100 mg Tolterodine Tartrate (Detrol La) 4 mg PO DAILY [facility] Last Admin: 05/01/17 11:00 Dose: Not Given - Labs Labs: 05/01/17 06:21 05/01/17 06:21 PT 12.1 SECONDS (9.7-12.2) 05/01/17 06:21 INR 1.1 05/01/17 06:21 - Constitutional Appears: Well - Head Exam Head Exam: ATRAUMATIC, NORMAL INSPECTION, NORMOCEPHALIC - Eye Exam Eye Exam: EOMI, Normal appearance, PERRL - ENT Exam ENT Exam: Mucous Membranes Moist, Normal Exam - Neck Exam Neck Exam: Full ROM, Normal Inspection. absent: Lymphadenopathy - Respiratory Exam Respiratory Exam: Decreased Breath Sounds - Cardiovascular Exam Cardiovascular Exam: REGULAR RHYTHM, +S1, +S2 - GI/Abdominal Exam GI & Abdominal Exam: Soft, Diminished Bowel Sounds - Rectal Exam Rectal Exam: Deferred
[2017-05-02] MEDS: Levothyroxine 50 MCG TAB PO SCH (05:34)
[2017-05-02] MEDS: Cefepime 1 GM in Sodium Chloride 0.9% 100 ML IVPB SCH ×2 (05:37→18:01)
[2017-05-02] MEDS: (Novolin R) Insulin Human Regular 100 units/ml vial SC SCH ×3 (07:53→18:06)
[2017-05-02] MEDS: metroNIDAZOLE IV 500 mg/100 ml 500 MG/100 ML BAG IVPB SCH ×2 (10:59→22:44)
[2017-05-02] MEDS: Enoxaparin 40 mg Syringe SC SCH (11:03)
[2017-05-02] MEDS: Metoprolol Succinate 100 mg XL Tab PO SCH (11:03)
[2017-05-02] MEDS: Tolterodine 4 mg ER Cap PO SCH (11:03)
[2017-05-02 11:29] LABS: CHLORIDE 108 mmol/L (98-107); POTASSIUM 4.2 mmol/L (3.6-5.2); SODIUM 138 mmol/L (132-148)
[2017-05-02 11:31] LABS: GFR AFRICAN-AMERICAN > 60
[2017-05-02 11:32] LABS: ALB/GLOB RATIO 1.1 (1.0-2.1); ALKALINE PHOSPHATASE 245 U/L (38-126); ALT/SGPT 150 U/L (21-72); AST/SGOT 35 U/L (17-59); BILIRUBIN,TOTAL 0.8 mg/dL (0.2-1.3); BLOOD UREA NITROGEN 17 mg/dL (9-20); CARBON DIOXIDE 20 mmol/L (22-30); GLUCOSE,RANDOM 266 mg/dL (75-110)
[2017-05-02 11:33] LABS: CALCIUM 8.7 mg/dl (8.6-10.4)
[2017-05-02 12:18] LABS: BASO % 0.3 % (0.0-2.0); EOS # 0.5 K/uL (0.0-0.7); EOS % 5.3 % (0.0-4.0); HEMATOCRIT 32.6 % (35.0-51.0); LYMPH # 1.9 K/uL (1.0-4.3); LYMPH % 21.4 % (20.0-40.0); MEAN CELL VOLUME 83.8 fL (80.0-94.0); MEAN CORPUSCULAR HEMOGLOBIN 27.3 pg (27.0-31.0); MEAN CORPUSCULAR HGB CONC 32.6 g/dL (33.0-37.0); MEAN PLATELET VOLUME 10.4 fL (7.2-11.7); MONO # 0.8 K/uL (0.0-0.8); MONO % 9.3 % (0.0-10.0); NRBC % 0.4 % (0.0-2.0); RED CELL DISTRIBUTION WIDTH 14.9 % (11.5-14.5)
--- NOTE | 2017-05-02 13:51 | CP.PCM.PN ---
<Dianne Salinas - Last Filed: 05/02/17 13:48> Subjective - Date & Time of Evaluation Date of Evaluation: 05/02/17 Time of Evaluation: 13:48 - Subjective Subjective: Gastroenterology Fellow/PGY5 Progress Note Patient denies abdominal pain. Tolerating heart healthy diet. No bowel movement yesterday. A 12-point review of systems limited given history of Alzheimer's dementia. Objective - Vital Signs/Intake and Output Vital Signs (last 24 hours): Temp Pulse Resp BP Pulse Ox 97.7 F 61 18 133/68 96 05/02/17 08:40 05/02/17 08:40 05/02/17 08:40 05/02/17 08:40 05/02/17 08:40 Intake and Output: 05/02/17 05/02/17 06:59 18:59 Output Total 75 Balance -75 - Medications Medications: Current Medications Acetaminophen (Tylenol 325mg Tab) 650 mg PO Q6 PRN PRN Reason: Fever >100.4 F Amlodipine Besylate (Norvasc) 10 mg PO DAILY [facility] Last Admin: 05/02/17 11:03 Dose: 10 mg Ascorbic Acid (Vitamin C 250 Mg Tab) 250 mg PO DAILY [facility] Last Admin: 05/02/17 11:03 Dose: 250 mg Aspirin (Aspirin Chewable) 81 mg PO DAILY [facility] Last Admin: 05/02/17 11:03 Dose: 81 mg Clopidogrel Bisulfate (Plavix) 75 mg PO DAILY [facility] Last Admin: 04/29/17 09:58 Dose: 75 mg Enoxaparin Sodium (Lovenox) 40 mg SC DAILY [facility] Last Admin: 05/02/17 11:03 Dose: 40 mg Famotidine (Pepcid) 20 mg PO DAILY [facility] Last Admin: 05/02/17 11:03 Dose: 20 mg Ferrous Sulfate (Feosol) 325 mg PO Q12 [facility] Last Admin: 05/02/17 11:03 Dose: 325 mg Metronidazole (Flagyl) 500 mg in 100 mls @ 100 mls/hr IVPB Q12 [facility] Last Admin: 05/02/17 10:59 Dose: 100 mls/hr Cefepime HCl 1 gm/ Sodium (Chloride) 100 mls @ 100 mls/hr IVPB Q12H [facility] Last Admin: 05/02/17 05:37 Dose: 100 mls/hr Insulin Human Regular (Novolin R) 0 unit SC ACHS [facility] PRN Reason: Protocol Last Admin: 05/02/17 12:30 Dose: 3 unit Levothyroxine Sodium (Synthroid) 50 mcg PO DAILY@0630 [facility] Last Admin: 05/02/17 05:34 Dose: 50 mcg Metoprolol Succinate (Toprol Xl) 100 mg PO DAILY [facility] Last Admin: 05/02/17 11:03 Dose: 100 mg Tolterodine Tartrate (Detrol La) 4 mg PO DAILY [facility] Last Admin: 05/02/17 11:03 Dose: 4 mg - Labs Labs: 05/02/17 11:13 05/02/17 11:13 PT 12.1 SECONDS (9.7-12.2) 05/01/17 06:21 INR 1.1 05/01/17 06:21 - Constitutional Appears: Non-toxic, No Acute Distress - Head Exam Head Exam: ATRAUMATIC, NORMOCEPHALIC - Eye Exam Eye Exam: EOMI, PERRL Pupil Exam: PERRL. absent: Miosis, Mydriatic - ENT Exam ENT Exam: Mucous Membranes Moist, Normal Oropharynx - Neck Exam Neck Exam: Full ROM, Normal Inspection - Respiratory Exam Respiratory Exam: Clear to Ausculation Bilateral. absent: Rales, Rhonchi, Wheezes - Cardiovascular Exam Cardiovascular Exam: RRR, +S1, +S2. absent: Gallop, Rubs - GI/Abdominal Exam GI & Abdominal Exam: Soft, Normal Bowel Sounds. absent: Distended, Firm, Guarding, Rigid, Tenderness, Organomegaly, Rebound - Extremities Exam Extremities Exam: Full ROM. absent: Pedal Edema - Neurological Exam Neurological Exam: Alert, Awake - Psychiatric Exam Psychiatric exam: Normal Affect, Normal Mood - Skin Skin Exam: Dry, Intact, Normal Color, Warm Assessment and Plan - Assessment and Plan (Free Text) Assessment: 81 year old male with history of Alzheimer's dementia, Diabetes, Hypertension, Hyperlipidemia, CAD, CVA, and H.pylori gastritis presenting with fever and weakness. Active treatment of sepsis 2/2 choledocholithiasis complicated by cholangitis and K. pneumonia Bacteremia POD1 (05/01) EUS/ERCP with biliary plastic stent placement. Plan: >sphincterotomy and stone extraction not performed due to being on Plavix >continue antibiotics- 2 weeks for cholangitis coverage >negative autoimmune work up, pending LKM >LFTs and leukocytosis improving >afebrile >tolerating heart healthy diet >outpatient follow up in two weeks with Dr. Damian >repeat ERCP within 3 months once off Plavix 5-7 days for stone extraction >Thank you for opportunity to participate in the car of this patient. Please contact with questions/concerns. <Quincy Livingston MD - Last Filed: 05/02/17 18:29> Objective - Vital Signs/Intake and Output Vital Signs (last 24 hours): Temp Pulse Resp BP Pulse Ox 98.2 F 58 L 20 135/62 95 05/02/17 15:20 05/02/17 15:20 05/02/17 15:20 05/02/17 15:20 05/02/17 15:20 Intake and Output: 05/02/17 05/02/17 06:59 18:59 Intake Total 450 Output Total 75 300 Balance -75 150 - Medications Medications: Current Medications Acetaminophen (Tylenol 325mg Tab) 650 mg PO Q6 PRN PRN Reason: Fever >100.4 F Amlodipine Besylate (Norvasc) 10 mg PO DAILY [facility] Last Admin: 05/02/17 11:03 Dose: 10 mg Ascorbic Acid (Vitamin C 250 Mg Tab) 250 mg PO DAILY [facility] Last Admin: 05/02/17 11:03 Dose: 250 mg Aspirin (Aspirin Chewable) 81 mg PO DAILY [facility] Last Admin: 05/02/17 11:03 Dose: 81 mg Clopidogrel Bisulfate (Plavix) 75 mg PO DAILY [facility] Enoxaparin Sodium (Lovenox) 40 mg SC DAILY [facility] Last Admin: 05/02/17 11:03 Dose: 40 mg Famotidine (Pepcid) 20 mg PO DAILY [facility] Last Admin: 05/02/17 11:03 Dose: 20 mg Ferrous Sulfate (Feosol) 325 mg PO Q12 [facility] Last Admin: 05/02/17 11:03 Dose: 325 mg Metronidazole (Flagyl) 500 mg in 100 mls @ 100 mls/hr IVPB Q12 [facility] Last Admin: 05/02/17 10:59 Dose: 100 mls/hr Cefepime HCl 1 gm/ Sodium (Chloride) 100 mls @ 100 mls/hr IVPB Q12H [facility] Last Admin: 05/02/17 18:01 Dose: 100 mls/hr Insulin Human Regular (Novolin R) 0 unit SC ACHS [facility] PRN Reason: Protocol Last Admin: 05/02/17 18:06 Dose: Not Given Levothyroxine Sodium (Synthroid) 50 mcg PO DAILY@0630 [facility] Last Admin: 05/02/17 05:34 Dose: 50 mcg Metoprolol Succinate (Toprol Xl) 100 mg PO DAILY [facility] Last Admin: 05/02/17 11:03 Dose: 100 mg Tolterodine Tartrate (Detrol La) 4 mg PO DAILY [facility] Last Admin: 05/02/17 11:03 Dose: 4 mg - Labs Labs: 05/02/17 11:13 05/02/17 11:13 PT 12.1 SECONDS (9.7-12.2) 05/01/17 06:21 INR 1.1 05/01/17 06:21 Attending/Attestation - Attestation I have personally seen and examined this patient.: Yes I have fully participated in the care of the patient.: Yes I have reviewed all pertinent clinical information, including history, physical exam and plan: Yes Notes (Text): 05/02/17 18:27 Patient seen with GI fellow on rounds. This is a 81 year old male with history of Alzheimer's dementia, Diabetes, Hypertension, Hyperlipidemia, CAD, CVA, and H.pylori gastritis presenting with sepsis in setting of choledocholithiasis complicated by cholangitis and K. pneumonia Bacteremia s/p EUS/ERCP with biliary plastic stent placement. Sphincterotomy not done due to patient being on anti platelet. LFT improving. Advance diet. Follow with Dr Damian in two weeks for repeat ERCP once plavix discontinued. Thank you for opportunity to participate in the car of this patient. Please contact with questions/concerns.
--- NOTE | 2017-05-02 14:45 | CP.PCM.PN ---
Subjective - Date & Time of Evaluation Date of Evaluation: 05/02/17 Time of Evaluation: 10:40 - Subjective Subjective: clinically same Objective - Vital Signs/Intake and Output Vital Signs (last 24 hours): Temp Pulse Resp BP Pulse Ox 97.7 F 61 18 133/68 96 05/02/17 08:40 05/02/17 08:40 05/02/17 08:40 05/02/17 08:40 05/02/17 08:40 Intake and Output: 05/02/17 05/02/17 06:59 18:59 Output Total 75 Balance -75 - Medications Medications: Current Medications Acetaminophen (Tylenol 325mg Tab) 650 mg PO Q6 PRN PRN Reason: Fever >100.4 F Amlodipine Besylate (Norvasc) 10 mg PO DAILY [facility] Last Admin: 05/02/17 11:03 Dose: 10 mg Ascorbic Acid (Vitamin C 250 Mg Tab) 250 mg PO DAILY [facility] Last Admin: 05/02/17 11:03 Dose: 250 mg Aspirin (Aspirin Chewable) 81 mg PO DAILY [facility] Last Admin: 05/02/17 11:03 Dose: 81 mg Clopidogrel Bisulfate (Plavix) 75 mg PO DAILY [facility] Enoxaparin Sodium (Lovenox) 40 mg SC DAILY [facility] Last Admin: 05/02/17 11:03 Dose: 40 mg Famotidine (Pepcid) 20 mg PO DAILY [facility] Last Admin: 05/02/17 11:03 Dose: 20 mg Ferrous Sulfate (Feosol) 325 mg PO Q12 [facility] Last Admin: 05/02/17 11:03 Dose: 325 mg Metronidazole (Flagyl) 500 mg in 100 mls @ 100 mls/hr IVPB Q12 [facility] Last Admin: 05/02/17 10:59 Dose: 100 mls/hr Cefepime HCl 1 gm/ Sodium (Chloride) 100 mls @ 100 mls/hr IVPB Q12H [facility] Last Admin: 05/02/17 05:37 Dose: 100 mls/hr Insulin Human Regular (Novolin R) 0 unit SC ACHS [facility] PRN Reason: Protocol Last Admin: 05/02/17 12:30 Dose: 3 unit Levothyroxine Sodium (Synthroid) 50 mcg PO DAILY@0630 [facility] Last Admin: 05/02/17 05:34 Dose: 50 mcg Metoprolol Succinate (Toprol Xl) 100 mg PO DAILY [facility] Last Admin: 05/02/17 11:03 Dose: 100 mg Tolterodine Tartrate (Detrol La) 4 mg PO DAILY [facility] Last Admin: 05/02/17 11:03 Dose: 4 mg - Labs Labs: 05/02/17 11:13 05/02/17 11:13 PT 12.1 SECONDS (9.7-12.2) 05/01/17 06:21 INR 1.1 05/01/17 06:21 - Constitutional Appears: Well - Head Exam Head Exam: ATRAUMATIC, NORMAL INSPECTION, NORMOCEPHALIC - Eye Exam Eye Exam: EOMI, Normal appearance, PERRL Pupil Exam: NORMAL ACCOMODATION, PERRL - ENT Exam ENT Exam: Mucous Membranes Moist, Normal Exam - Neck Exam Neck Exam: Full ROM, Normal Inspection. absent: Lymphadenopathy - Respiratory Exam Respiratory Exam: Decreased Breath Sounds - Cardiovascular Exam Cardiovascular Exam: REGULAR RHYTHM, +S1, +S2 - GI/Abdominal Exam GI & Abdominal Exam: Soft, Diminished Bowel Sounds - Rectal Exam Rectal Exam: Deferred
[2017-05-02 20:44] LABS: LKM-1 Ab (IgG) <=20.0 U (<=20.0)
[2017-05-03] MEDS: Cefepime 1 GM in Sodium Chloride 0.9% 100 ML IVPB SCH ×2 (05:21→18:00)
--- NOTE | 2017-05-03 07:44 | CP.PCM.PN ---
Subjective - Date & Time of Evaluation Date of Evaluation: 05/03/17 Time of Evaluation: 06:30 - Subjective Subjective: clinically same Objective - Vital Signs/Intake and Output Vital Signs (last 24 hours): Temp Pulse Resp BP Pulse Ox 98.3 F 62 20 136/70 95 05/02/17 23:15 05/03/17 03:58 05/02/17 23:15 05/02/17 23:15 05/02/17 23:15 Intake and Output: 05/03/17 05/03/17 06:59 18:59 Intake Total 600 Output Total 2200 Balance -1600 - Medications Medications: Current Medications Acetaminophen (Tylenol 325mg Tab) 650 mg PO Q6 PRN PRN Reason: Fever >100.4 F Amlodipine Besylate (Norvasc) 10 mg PO DAILY [facility] Last Admin: 05/02/17 11:03 Dose: 10 mg Ascorbic Acid (Vitamin C 250 Mg Tab) 250 mg PO DAILY [facility] Last Admin: 05/02/17 11:03 Dose: 250 mg Aspirin (Aspirin Chewable) 81 mg PO DAILY [facility] Last Admin: 05/02/17 11:03 Dose: 81 mg Clopidogrel Bisulfate (Plavix) 75 mg PO DAILY [facility] Enoxaparin Sodium (Lovenox) 40 mg SC DAILY [facility] Last Admin: 05/02/17 11:03 Dose: 40 mg Famotidine (Pepcid) 20 mg PO DAILY [facility] Last Admin: 05/02/17 11:03 Dose: 20 mg Ferrous Sulfate (Feosol) 325 mg PO Q12 [facility] Last Admin: 05/02/17 22:45 Dose: 325 mg Metronidazole (Flagyl) 500 mg in 100 mls @ 100 mls/hr IVPB Q12 [facility] Last Admin: 05/02/17 22:44 Dose: 100 mls/hr Cefepime HCl 1 gm/ Sodium (Chloride) 100 mls @ 100 mls/hr IVPB Q12H [facility] Last Admin: 05/03/17 05:21 Dose: 100 mls/hr Insulin Human Regular (Novolin R) 0 unit SC ACHS [facility] PRN Reason: Protocol Last Admin: 05/02/17 18:06 Dose: Not Given Levothyroxine Sodium (Synthroid) 50 mcg PO DAILY@0630 [facility] Last Admin: 05/02/17 05:34 Dose: 50 mcg Metoprolol Succinate (Toprol Xl) 100 mg PO DAILY [facility] Last Admin: 05/02/17 11:03 Dose: 100 mg Tolterodine Tartrate (Detrol La) 4 mg PO DAILY [facility] Last Admin: 05/02/17 11:03 Dose: 4 mg - Labs Labs: 05/02/17 11:13 05/02/17 11:13 PT 12.1 SECONDS (9.7-12.2) 05/01/17 06:21 INR 1.1 05/01/17 06:21 - Constitutional Appears: Well - Head Exam Head Exam: ATRAUMATIC, NORMAL INSPECTION, NORMOCEPHALIC - Eye Exam Eye Exam: EOMI, Normal appearance, PERRL Pupil Exam: NORMAL ACCOMODATION, PERRL - ENT Exam ENT Exam: Mucous Membranes Moist, Normal Exam - Respiratory Exam Respiratory Exam: Decreased Breath Sounds - Cardiovascular Exam Cardiovascular Exam: REGULAR RHYTHM, +S1, +S2 - GI/Abdominal Exam GI & Abdominal Exam: Soft, Diminished Bowel Sounds - Rectal Exam Rectal Exam: Deferred
[2017-05-03] MEDS: (Novolin R) Insulin Human Regular 100 units/ml vial SC SCH ×4 (08:22→22:05)
[2017-05-03] MEDS: Enoxaparin 40 mg Syringe SC SCH (10:01)
[2017-05-03] MEDS: Metoprolol Succinate 100 mg XL Tab PO SCH (10:01)
[2017-05-03] MEDS: Tolterodine 4 mg ER Cap PO SCH (10:01)
[2017-05-03] MEDS: metroNIDAZOLE IV 500 mg/100 ml 500 MG/100 ML BAG IVPB SCH ×2 (10:02→22:05)
--- NOTE | 2017-05-03 14:47 | CP.PCM.PN ---
Subjective - Date & Time of Evaluation Date of Evaluation: 05/03/17 Time of Evaluation: 08:00 - Subjective Subjective: Patient denies abdominal pain. Tolerating heart healthy diet. No bowel movement yesterday. A 12-point review of systems limited given history of Alzheimer's Objective - Vital Signs/Intake and Output Vital Signs (last 24 hours): Temp Pulse Resp BP Pulse Ox 98.5 F 65 20 161/76 H 94 L 05/03/17 09:51 05/03/17 11:37 05/03/17 09:51 05/03/17 09:51 05/03/17 11:37 Intake and Output: 05/03/17 05/03/17 06:59 18:59 Intake Total 600 Output Total 2200 Balance -1600 - Medications Medications: Current Medications Acetaminophen (Tylenol 325mg Tab) 650 mg PO Q6 PRN PRN Reason: Fever >100.4 F Amlodipine Besylate (Norvasc) 10 mg PO DAILY [facility] Last Admin: 05/03/17 10:01 Dose: 10 mg Ascorbic Acid (Vitamin C 250 Mg Tab) 250 mg PO DAILY [facility] Last Admin: 05/03/17 10:01 Dose: 250 mg Aspirin (Aspirin Chewable) 81 mg PO DAILY [facility] Last Admin: 05/03/17 10:00 Dose: 81 mg Clopidogrel Bisulfate (Plavix) 75 mg PO DAILY [facility] Last Admin: 05/03/17 10:01 Dose: 75 mg Enoxaparin Sodium (Lovenox) 40 mg SC DAILY [facility] Last Admin: 05/03/17 10:01 Dose: 40 mg Famotidine (Pepcid) 20 mg PO DAILY [facility] Last Admin: 05/03/17 10:01 Dose: 20 mg Ferrous Sulfate (Feosol) 325 mg PO Q12 [facility] Last Admin: 05/03/17 10:01 Dose: 325 mg Metronidazole (Flagyl) 500 mg in 100 mls @ 100 mls/hr IVPB Q12 [facility] Last Admin: 05/03/17 10:02 Dose: 100 mls/hr Cefepime HCl 1 gm/ Sodium (Chloride) 100 mls @ 100 mls/hr IVPB Q12H [facility] Last Admin: 05/03/17 05:21 Dose: 100 mls/hr Insulin Human Regular (Novolin R) 0 unit SC ACHS [facility] PRN Reason: Protocol Last Admin: 05/03/17 12:30 Dose: 2 unit Levothyroxine Sodium (Synthroid) 50 mcg PO DAILY@0630 [facility] Last Admin: 05/02/17 05:34 Dose: 50 mcg Metoprolol Succinate (Toprol Xl) 100 mg PO DAILY [facility] Last Admin: 05/03/17 10:01 Dose: 100 mg Tolterodine Tartrate (Detrol La) 4 mg PO DAILY [facility] Last Admin: 05/03/17 10:01 Dose: 4 mg - Labs Labs: 05/02/17 11:13 05/02/17 11:13 PT 12.1 SECONDS (9.7-12.2) 05/01/17 06:21 INR 1.1 05/01/17 06:21 - Constitutional Appears: Non-toxic, Cachectic, Chronically Ill - Head Exam Head Exam: NORMOCEPHALIC - Eye Exam Eye Exam: PERRL. absent: Scleral icterus - ENT Exam ENT Exam: Mucous Membranes Dry, Normal External Ear Exam - Neck Exam Neck Exam: absent: Lymphadenopathy - Respiratory Exam Respiratory Exam: Decreased Breath Sounds, Rhonchi - Cardiovascular Exam Cardiovascular Exam: REGULAR RHYTHM - GI/Abdominal Exam GI & Abdominal Exam: Distended, Soft Assessment and Plan (1) AD (Alzheimer's disease) Status: Acute (2) Abdominal pain Status: Acute (3) CKD (chronic kidney disease) stage 3, GFR 30-59 ml/min Status: Acute (4) Diabetes mellitus type 2 in nonobese Status: Acute - Assessment and Plan (Free Text) Assessment: KLEBS IN BLOOD- SENS TO CEFEPIME SOURCE UNCLEAR GI ? LUNG ? CONT RX 14-21 DAYS
[2017-05-04] MEDS: Levothyroxine 50 MCG TAB PO SCH (05:56)
[2017-05-04] MEDS: Cefepime 1 GM in Sodium Chloride 0.9% 100 ML IVPB SCH ×2 (05:56→18:00)
[2017-05-04] MEDS: (Novolin R) Insulin Human Regular 100 units/ml vial SC SCH ×5 (08:27→22:04)
[2017-05-04] MEDS: Metoprolol Succinate 100 mg XL Tab PO SCH (09:47)
[2017-05-04] MEDS: Enoxaparin 40 mg Syringe SC SCH (09:47)
[2017-05-04] MEDS: Tolterodine 4 mg ER Cap PO SCH (09:47)
[2017-05-04] MEDS: metroNIDAZOLE IV 500 mg/100 ml 500 MG/100 ML BAG IVPB SCH (09:51)
--- NOTE | 2017-05-04 12:02 | CP.PCM.PN ---
Subjective - Date & Time of Evaluation Date of Evaluation: 05/04/17 Time of Evaluation: 09:00 - Subjective Subjective: discussed on rounds to complete 21 days iv rx may switch to po cipro after 7 days iv cefepime Objective - Vital Signs/Intake and Output Vital Signs (last 24 hours): Temp Pulse Resp BP Pulse Ox 97.4 F L 70 20 118/68 97 05/04/17 08:01 05/04/17 08:01 05/04/17 08:01 05/04/17 08:01 05/04/17 08:01 Intake and Output: 05/04/17 05/04/17 06:59 18:59 Intake Total 950 Output Total 1420 Balance -470 - Medications Medications: Current Medications Acetaminophen (Tylenol 325mg Tab) 650 mg PO Q6 PRN PRN Reason: Fever >100.4 F Amlodipine Besylate (Norvasc) 10 mg PO DAILY [facility] Last Admin: 05/04/17 09:47 Dose: 10 mg Ascorbic Acid (Vitamin C 250 Mg Tab) 250 mg PO DAILY [facility] Last Admin: 05/04/17 09:47 Dose: 250 mg Aspirin (Aspirin Chewable) 81 mg PO DAILY [facility] Last Admin: 05/04/17 09:48 Dose: 81 mg Clopidogrel Bisulfate (Plavix) 75 mg PO DAILY [facility] Last Admin: 05/04/17 09:47 Dose: 75 mg Enoxaparin Sodium (Lovenox) 40 mg SC DAILY [facility] Last Admin: 05/04/17 09:47 Dose: 40 mg Famotidine (Pepcid) 20 mg PO DAILY [facility] Last Admin: 05/04/17 09:47 Dose: 20 mg Ferrous Sulfate (Feosol) 325 mg PO Q12 [facility] Last Admin: 05/04/17 09:47 Dose: 325 mg Cefepime HCl 1 gm/ Sodium (Chloride) 100 mls @ 100 mls/hr IVPB Q12H [facility] Last Admin: 05/04/17 05:56 Dose: 100 mls/hr Insulin Human Regular (Novolin R) 0 unit SC ACHS [facility] PRN Reason: Protocol Last Admin: 05/04/17 08:27 Dose: 2 unit Levothyroxine Sodium (Synthroid) 50 mcg PO DAILY@0630 [facility] Last Admin: 05/04/17 05:56 Dose: 50 mcg Metoprolol Succinate (Toprol Xl) 100 mg PO DAILY [facility] Last Admin: 05/04/17 09:47 Dose: 100 mg Tolterodine Tartrate (Detrol La) 4 mg PO DAILY [facility] Last Admin: 05/04/17 09:47 Dose: 4 mg - Labs Labs: 05/02/17 11:13 05/02/17 11:13 PT 12.1 SECONDS (9.7-12.2) 05/01/17 06:21 INR 1.1 05/01/17 06:21 Assessment and Plan (1) AD (Alzheimer's disease) Status: Acute (2) Abdominal pain Status: Acute (3) CKD (chronic kidney disease) stage 3, GFR 30-59 ml/min Status: Acute (4) Diabetes mellitus type 2 in nonobese Status: Acute
--- NOTE | 2017-05-04 13:19 | CP.PCM.PN ---
Subjective - Date & Time of Evaluation Date of Evaluation: 05/04/17 Time of Evaluation: 13:18 - Subjective Subjective: Coverage for Dr. Jan Malin Patient seen and examined Chart reviewed In no apparent distress Objective - Vital Signs/Intake and Output Vital Signs (last 24 hours): Temp Pulse Resp BP Pulse Ox 97.4 F L 70 20 118/68 97 05/04/17 08:01 05/04/17 08:01 05/04/17 08:01 05/04/17 08:01 05/04/17 08:01 Intake and Output: 05/04/17 05/04/17 06:59 18:59 Intake Total 950 Output Total 1420 Balance -470 - Medications Medications: Current Medications Acetaminophen (Tylenol 325mg Tab) 650 mg PO Q6 PRN PRN Reason: Fever >100.4 F Amlodipine Besylate (Norvasc) 10 mg PO DAILY [facility] Last Admin: 05/04/17 09:47 Dose: 10 mg Ascorbic Acid (Vitamin C 250 Mg Tab) 250 mg PO DAILY [facility] Last Admin: 05/04/17 09:47 Dose: 250 mg Aspirin (Aspirin Chewable) 81 mg PO DAILY [facility] Last Admin: 05/04/17 09:48 Dose: 81 mg Clopidogrel Bisulfate (Plavix) 75 mg PO DAILY [facility] Last Admin: 05/04/17 09:47 Dose: 75 mg Enoxaparin Sodium (Lovenox) 40 mg SC DAILY [facility] Last Admin: 05/04/17 09:47 Dose: 40 mg Famotidine (Pepcid) 20 mg PO DAILY [facility] Last Admin: 05/04/17 09:47 Dose: 20 mg Ferrous Sulfate (Feosol) 325 mg PO Q12 [facility] Last Admin: 05/04/17 09:47 Dose: 325 mg Cefepime HCl 1 gm/ Sodium (Chloride) 100 mls @ 100 mls/hr IVPB Q12H [facility] Last Admin: 05/04/17 05:56 Dose: 100 mls/hr Insulin Human Regular (Novolin R) 0 unit SC ACHS [facility] PRN Reason: Protocol Last Admin: 05/04/17 12:45 Dose: 2 unit Levothyroxine Sodium (Synthroid) 50 mcg PO DAILY@0630 [facility] Last Admin: 05/04/17 05:56 Dose: 50 mcg Metoprolol Succinate (Toprol Xl) 100 mg PO DAILY [facility] Last Admin: 05/04/17 09:47 Dose: 100 mg Tolterodine Tartrate (Detrol La) 4 mg PO DAILY [facility] Last Admin: 05/04/17 09:47 Dose: 4 mg - Labs Labs: 05/02/17 11:13 05/02/17 11:13 PT 12.1 SECONDS (9.7-12.2) 05/01/17 06:21 INR 1.1 05/01/17 06:21 - Head Exam Head Exam: NORMAL INSPECTION - Eye Exam Eye Exam: Normal appearance - ENT Exam ENT Exam: Mucous Membranes Moist - Respiratory Exam Respiratory Exam: Clear to Ausculation Bilateral, NORMAL BREATHING PATTERN - Cardiovascular Exam Cardiovascular Exam: REGULAR RHYTHM, +S1, +S2 - GI/Abdominal Exam GI & Abdominal Exam: Soft, Diminished Bowel Sounds - Extremities Exam Extremities Exam: Normal Inspection Assessment and Plan - Assessment and Plan (Free Text) Assessment: Abdominal pain Alzheimer's disease CKD stage III Hypertension Diabetes Coronary disease Continue antibiotics Norvasc 10 mg daily Aspirin 81 mg daily Plavix 75 mg daily Metoprolol 100 mg daily Insulin sliding scale Accu-Chek DVT GI prophylaxis
--- NOTE | 2017-05-04 16:45 | CP.PCM.PN ---
Subjective - Date & Time of Evaluation Date of Evaluation: 05/04/17 Time of Evaluation: 16:42 - Subjective Subjective: DISCUSSED PLAN FOR ABX UPON D/C WITH DR. GODOY. PER Papo GODOY, PT TO COMPLETE TOTAL OF 7 DAYS FOR IV CEFEPIME (TODAY IS DAY 5 AND LAST DOSE WILL BE GIVEN ON THURSDAY). AFTER CEFEPIME, PT TO CONTINUE CIPRO 500 MG Q12 PO X21 DAYS. DISCUSSED THIS W BATH ATTENDANT AND DR. WOOTEN. WILL F/U FOR D/C ON THURSDAY. PENDING ODALIS PLACEMENT AND AUTH PER CM AND SW. NO FURTHER ORDERS AT THIS TIME. Objective - Vital Signs/Intake and Output Vital Signs (last 24 hours): Temp Pulse Resp BP Pulse Ox 97 F L 60 20 132/78 97 05/04/17 15:00 05/04/17 15:00 05/04/17 15:00 05/04/17 15:00 05/04/17 15:00 Intake and Output: 05/04/17 05/04/17 06:59 18:59 Intake Total 950 Output Total 1420 Balance -470 - Medications Medications: Current Medications Acetaminophen (Tylenol 325mg Tab) 650 mg PO Q6 PRN PRN Reason: Fever >100.4 F Amlodipine Besylate (Norvasc) 10 mg PO DAILY [facility] Last Admin: 05/04/17 09:47 Dose: 10 mg Ascorbic Acid (Vitamin C 250 Mg Tab) 250 mg PO DAILY [facility] Last Admin: 05/04/17 09:47 Dose: 250 mg Aspirin (Aspirin Chewable) 81 mg PO DAILY [facility] Last Admin: 05/04/17 09:48 Dose: 81 mg Clopidogrel Bisulfate (Plavix) 75 mg PO DAILY [facility] Last Admin: 05/04/17 09:47 Dose: 75 mg Enoxaparin Sodium (Lovenox) 40 mg SC DAILY [facility] Last Admin: 05/04/17 09:47 Dose: 40 mg Famotidine (Pepcid) 20 mg PO DAILY [facility] Last Admin: 05/04/17 09:47 Dose: 20 mg Ferrous Sulfate (Feosol) 325 mg PO Q12 [facility] Last Admin: 05/04/17 09:47 Dose: 325 mg Cefepime HCl 1 gm/ Sodium (Chloride) 100 mls @ 100 mls/hr IVPB Q12H [facility] Last Admin: 05/04/17 05:56 Dose: 100 mls/hr Insulin Human Regular (Novolin R) 0 unit SC ACHS [facility] PRN Reason: Protocol Last Admin: 05/04/17 12:45 Dose: 2 unit Levothyroxine Sodium (Synthroid) 50 mcg PO DAILY@0630 [facility] Last Admin: 05/04/17 05:56 Dose: 50 mcg Metoprolol Succinate (Toprol Xl) 100 mg PO DAILY [facility] Last Admin: 05/04/17 09:47 Dose: 100 mg Tolterodine Tartrate (Detrol La) 4 mg PO DAILY [facility] Last Admin: 05/04/17 09:47 Dose: 4 mg - Labs Labs: 05/02/17 11:13 05/02/17 11:13 PT 12.1 SECONDS (9.7-12.2) 05/01/17 06:21 INR 1.1 05/01/17 06:21
--- NOTE | 2017-05-04 17:14 | RAD ---
PROCEDURE: Intraoperative fluoroscopy HISTORY: ERCP W/ STENT INSERTION COMPARISON: Not available TECHNIQUE: Intraoperative fluoroscopy was provided for biliary stent insertion with ERCP. Total time of fluoroscopy was 33.3 seconds. FINDINGS: Four fluoroscopic spot films are submitted. The films are on file for review. IMPRESSION: Fluoroscopy provided.
[2017-05-05] MEDS: Cefepime 1 GM in Sodium Chloride 0.9% 100 ML IVPB SCH ×2 (05:02→21:34)
[2017-05-05] MEDS: Levothyroxine 50 MCG TAB PO SCH (06:03)
[2017-05-05] MEDS: (Novolin R) Insulin Human Regular 100 units/ml vial SC SCH ×4 (08:00→21:35)
[2017-05-05] MEDS: Enoxaparin 40 mg Syringe SC SCH (09:13)
[2017-05-05] MEDS: Metoprolol Succinate 100 mg XL Tab PO SCH (09:14)
[2017-05-05] MEDS: Tolterodine 4 mg ER Cap PO SCH (09:14)
--- NOTE | 2017-05-05 16:29 | CP.PCM.PN ---
Subjective - Date & Time of Evaluation Date of Evaluation: 05/05/17 Time of Evaluation: 16:28 - Subjective Subjective: Medicine coverage for Dr. Jan Malin Patient seen and examined No events overnight Objective - Vital Signs/Intake and Output Vital Signs (last 24 hours): Temp Pulse Resp BP Pulse Ox 98.0 F 64 18 154/85 H 96 05/05/17 07:40 05/05/17 08:00 05/05/17 07:40 05/05/17 07:40 05/05/17 07:40 Intake and Output: 05/05/17 05/05/17 06:59 18:59 Intake Total 110 Output Total 550 Balance -440 - Medications Medications: Current Medications Acetaminophen (Tylenol 325mg Tab) 650 mg PO Q6 PRN PRN Reason: Fever >100.4 F Amlodipine Besylate (Norvasc) 10 mg PO DAILY [facility] Last Admin: 05/05/17 09:14 Dose: 10 mg Ascorbic Acid (Vitamin C 250 Mg Tab) 250 mg PO DAILY [facility] Last Admin: 05/05/17 09:13 Dose: 250 mg Aspirin (Aspirin Chewable) 81 mg PO DAILY [facility] Last Admin: 05/05/17 09:14 Dose: 81 mg Clopidogrel Bisulfate (Plavix) 75 mg PO DAILY [facility] Last Admin: 05/05/17 09:14 Dose: 75 mg Enoxaparin Sodium (Lovenox) 40 mg SC DAILY [facility] Last Admin: 05/05/17 09:13 Dose: 40 mg Famotidine (Pepcid) 20 mg PO DAILY [facility] Last Admin: 05/05/17 09:14 Dose: 20 mg Ferrous Sulfate (Feosol) 325 mg PO Q12 [facility] Last Admin: 05/05/17 09:14 Dose: 325 mg Cefepime HCl 1 gm/ Sodium (Chloride) 100 mls @ 100 mls/hr IVPB Q12H [facility] Last Admin: 05/05/17 05:02 Dose: 100 mls/hr Insulin Human Regular (Novolin R) 0 unit SC ACHS [facility] PRN Reason: Protocol Last Admin: 05/05/17 13:03 Dose: 6 unit Levothyroxine Sodium (Synthroid) 50 mcg PO DAILY@0630 [facility] Last Admin: 05/05/17 06:03 Dose: 50 mcg Metoprolol Succinate (Toprol Xl) 100 mg PO DAILY [facility] Last Admin: 05/05/17 09:14 Dose: 100 mg Tolterodine Tartrate (Detrol La) 4 mg PO DAILY [facility] Last Admin: 05/05/17 09:14 Dose: 4 mg - Labs Labs: 05/02/17 11:13 05/02/17 11:13 PT 12.1 SECONDS (9.7-12.2) 05/01/17 06:21 INR 1.1 05/01/17 06:21 - Head Exam Head Exam: NORMAL INSPECTION - Eye Exam Eye Exam: Normal appearance - ENT Exam ENT Exam: Mucous Membranes Moist - Respiratory Exam Respiratory Exam: Clear to Ausculation Bilateral, NORMAL BREATHING PATTERN - Cardiovascular Exam Cardiovascular Exam: REGULAR RHYTHM, +S1, +S2 - GI/Abdominal Exam GI & Abdominal Exam: Soft, Normal Bowel Sounds - Extremities Exam Extremities Exam: Normal Inspection Assessment and Plan - Assessment and Plan (Free Text) Assessment: Abdominal pain Alzheimer's disease CKD stage III Hypertension Diabetes Coronary disease Continue antibiotics Norvasc 10 mg daily Aspirin 81 mg daily Plavix 75 mg daily Metoprolol 100 mg daily Insulin sliding scale Accu-Chek DC planning DVT GI prophylaxis
[2017-05-05 17:03] VITALS: RESP 20
[2017-05-06] MEDS: Cefepime 1 GM in Sodium Chloride 0.9% 100 ML IVPB SCH (05:11)
[2017-05-06] MEDS: Levothyroxine 50 MCG TAB PO SCH (05:33)
[2017-05-06 08:16] VITALS: TEMP 97.9
[2017-05-06] MEDS: (Novolin R) Insulin Human Regular 100 units/ml vial SC SCH ×2 (08:46→12:57)
[2017-05-06] MEDS: Tolterodine 4 mg ER Cap PO SCH (09:41)
[2017-05-06] MEDS: Enoxaparin 40 mg Syringe SC SCH (09:42)
[2017-05-06] MEDS: Metoprolol Succinate 100 mg XL Tab PO SCH (09:42)
--- NOTE | 2017-05-06 12:01 | CP.PCM.PN ---
Subjective - Date & Time of Evaluation Date of Evaluation: 05/06/17 Time of Evaluation: 12:01 - Subjective Subjective: PT CLEARED FOR D/C HOME TODAY PER DR. WOOTEN. 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 GODOY AND WILL RX CIPRO 250 MG PO BID X21 DAYS FOR + BLOOD CX. ALSO GAVE RX FOR FLORASTOR. [facility] HE WILL CONTINUE PHY THER. PENDING P/U ARRANGED BY SW. DISCUSSED ALL D/C INFORMATION AND MEDS/RX. NO FURTHER ORDERS. Objective - Vital Signs/Intake and Output Vital Signs (last 24 hours): Temp Pulse Resp BP Pulse Ox 97.9 F 59 L 20 154/70 H 98 05/06/17 08:15 05/06/17 08:15 05/06/17 08:15 05/06/17 08:15 05/06/17 08:15 Intake and Output: 05/06/17 05/06/17 06:59 18:59 Intake Total 100 Output Total 1100 Balance -1000 - Medications Medications: Current Medications Acetaminophen (Tylenol 325mg Tab) 650 mg PO Q6 PRN PRN Reason: Fever >100.4 F Amlodipine Besylate (Norvasc) 10 mg PO DAILY [facility] Last Admin: 05/06/17 09:42 Dose: 10 mg Ascorbic Acid (Vitamin C 250 Mg Tab) 250 mg PO DAILY [facility] Last Admin: 05/06/17 09:42 Dose: 250 mg Aspirin (Aspirin Chewable) 81 mg PO DAILY [facility] Last Admin: 05/06/17 09:42 Dose: 81 mg Ciprofloxacin (Cipro) 250 mg PO Q12 [facility] Last Admin: 05/06/17 11:48 Dose: 250 mg Clopidogrel Bisulfate (Plavix) 75 mg PO DAILY [facility] Last Admin: 05/06/17 09:42 Dose: 75 mg Famotidine (Pepcid) 20 mg PO DAILY [facility] Last Admin: 05/06/17 09:42 Dose: 20 mg Ferrous Sulfate (Feosol) 325 mg PO Q12 [facility] Last Admin: 05/06/17 09:42 Dose: 325 mg Cefepime HCl 1 gm/ Sodium (Chloride) 100 mls @ 100 mls/hr IVPB Q12H [facility] Last Admin: 05/06/17 05:11 Dose: 100 mls/hr Insulin Human Regular (Novolin R) 0 unit SC ACHS [facility] PRN Reason: Protocol Last Admin: 05/06/17 08:46 Dose: 2 unit Levothyroxine Sodium (Synthroid) 50 mcg PO DAILY@0630 [facility] Last Admin: 05/06/17 05:33 Dose: 50 mcg Metoprolol Succinate (Toprol Xl) 100 mg PO DAILY [facility] Last Admin: 05/06/17 09:42 Dose: 100 mg Tolterodine Tartrate (Detrol La) 4 mg PO DAILY [facility] Last Admin: 05/06/17 09:41 Dose: 4 mg - Labs Labs: 05/02/17 11:13 05/02/17 11:13 PT 12.1 SECONDS (9.7-12.2) 05/01/17 06:21 INR 1.1 05/01/17 06:21
--- NOTE | 2017-05-06 14:57 | CP.PCM.PN ---
Subjective - Date & Time of Evaluation Date of Evaluation: 05/06/17 Time of Evaluation: 14:57 Objective - Vital Signs/Intake and Output Vital Signs (last 24 hours): Temp Pulse Resp BP Pulse Ox 97.9 F 59 L 20 154/70 H 98 05/06/17 08:15 05/06/17 08:15 05/06/17 08:15 05/06/17 08:15 05/06/17 08:15 Intake and Output: 05/06/17 05/06/17 06:59 18:59 Intake Total 100 Output Total 1100 Balance -1000 - Medications Medications: Current Medications Acetaminophen (Tylenol 325mg Tab) 650 mg PO Q6 PRN PRN Reason: Fever >100.4 F Amlodipine Besylate (Norvasc) 10 mg PO DAILY [facility] Last Admin: 05/06/17 09:42 Dose: 10 mg Ascorbic Acid (Vitamin C 250 Mg Tab) 250 mg PO DAILY [facility] Last Admin: 05/06/17 09:42 Dose: 250 mg Aspirin (Aspirin Chewable) 81 mg PO DAILY [facility] Last Admin: 05/06/17 09:42 Dose: 81 mg Ciprofloxacin (Cipro) 250 mg PO Q12 [facility] Last Admin: 05/06/17 11:48 Dose: 250 mg Clopidogrel Bisulfate (Plavix) 75 mg PO DAILY [facility] Last Admin: 05/06/17 09:42 Dose: 75 mg Famotidine (Pepcid) 20 mg PO DAILY [facility] Last Admin: 05/06/17 09:42 Dose: 20 mg Ferrous Sulfate (Feosol) 325 mg PO Q12 [facility] Last Admin: 05/06/17 09:42 Dose: 325 mg Cefepime HCl 1 gm/ Sodium (Chloride) 100 mls @ 100 mls/hr IVPB Q12H [facility] Last Admin: 05/06/17 05:11 Dose: 100 mls/hr Insulin Human Regular (Novolin R) 0 unit SC ACHS [facility] PRN Reason: Protocol Last Admin: 05/06/17 12:57 Dose: 8 unit Levothyroxine Sodium (Synthroid) 50 mcg PO DAILY@0630 [facility] Last Admin: 05/06/17 05:33 Dose: 50 mcg Metoprolol Succinate (Toprol Xl) 100 mg PO DAILY [facility] Last Admin: 05/06/17 09:42 Dose: 100 mg Tolterodine Tartrate (Detrol La) 4 mg PO DAILY [facility] Last Admin: 05/06/17 09:41 Dose: 4 mg - Labs Labs: 05/02/17 11:13 05/02/17 11:13 PT 12.1 SECONDS (9.7-12.2) 05/01/17 06:21 INR 1.1 05/01/17 06:21
[2017-05-06 15:30] VITALS: BP 120/67; O2SAT 96
[2017-05-06 15:46] VITALS: PULSE 84
--- NOTE | 2017-05-12 01:50 | CP.PCM.DIS ---
Provider - Provider Date of Admission: 04/28/17 23:24 Attending physician: Jw Malin MD Time Spent in preparation of Discharge (in minutes): 25 Diagnosis - Discharge Diagnosis (1) AD (Alzheimer's disease) Status: Acute (2) Abdominal pain Status: Acute (3) Diabetes mellitus type 2 in nonobese Status: Resolved Hospital Course - Lab Results Lab Results: Micro Results 05/02/17 16:30 Blood-Venous Blood Culture - Final NO GROWTH AFTER 5 DAYS 05/02/17 16:30 Blood-Venous Gram Stain - Final TEST NOT PERFORMED 05/02/17 16:00 Blood-Venous Blood Culture - Final NO GROWTH AFTER 5 DAYS 05/02/17 16:00 Blood-Venous Gram Stain - Final TEST NOT PERFORMED Most Recent Lab Values WBC 9.0 K/uL (4.8-10.8) 05/02/17 11:13 RBC 3.89 Mil/uL (4.40-5.90) L 05/02/17 11:13 Hgb 10.6 g/dL (12.0-18.0) L 05/02/17 11:13 Hct 32.6 % (35.0-51.0) L 05/02/17 11:13 MCV 83.8 fL (80.0-94.0) 05/02/17 11:13 MCH 27.3 pg (27.0-31.0) 05/02/17 11:13 MCHC 32.6 g/dL (33.0-37.0) L 05/02/17 11:13 RDW 14.9 % (11.5-14.5) H 05/02/17 11:13 Plt Count 169 K/uL (130-400) 05/02/17 11:13 MPV 10.4 fL (7.2-11.7) 05/02/17 11:13 Neut % (Auto) 63.7 % (50.0-75.0) 05/02/17 11:13 Lymph % (Auto) 21.4 % (20.0-40.0) 05/02/17 11:13 Nye % (Auto) 9.3 % (0.0-10.0) 05/02/17 11:13 Eos % (Auto) 5.3 % (0.0-4.0) H 05/02/17 11:13 Baso % (Auto) 0.3 % (0.0-2.0) 05/02/17 11:13 Neut # 5.7 K/uL (1.8-7.0) 05/02/17 11:13 Lymph # 1.9 K/uL (1.0-4.3) 05/02/17 11:13 Nye # 0.8 K/uL (0.0-0.8) 05/02/17 11:13 Eos # 0.5 K/uL (0.0-0.7) 05/02/17 11:13 Baso # 0.0 K/uL (0.0-0.2) 05/02/17 11:13 Neutrophils % (Manual) 81 % (50-75) H 04/28/17 19:00 Band Neutrophils % 9 % (0-2) H 04/28/17 19:00 Lymphocytes % (Manual) 6 % (20-40) L 04/28/17 19:00 Monocytes % (Manual) 3 % (0-10) 04/28/17 19:00 Eosinophils % (Manual) 1 % (0-4) 04/28/17 19:00 Platelet Estimate Normal (NORMAL) 04/28/17 19:00 PT 12.1 SECONDS (9.7-12.2) 05/01/17 06:21 INR 1.1 05/01/17 06:21 pO2 29 mm/Hg (30-55) L 04/28/17 21:10 VBG pH 7.32 (7.32-7.43) 04/28/17 21:10 VBG pCO2 32 mmHg (40-60) L 04/28/17 21:10 VBG HCO3 17.0 mmol/L 04/28/17 21:10 VBG Total CO2 17.5 mmol/L (22-28) L 04/28/17 21:10 VBG O2 Sat (Calc) 61.0 % (40-65) 04/28/17 21:10 VBG Base Excess -8.5 mmol/L (0.0-2.0) L 04/28/17 21:10 VBG Potassium 3.1 mmol/L (3.6-5.2) L 04/28/17 21:10 Sodium 141.0 mmol/l (132-148) 04/28/17 21:10 Chloride 112.0 mmol/L (98-107) H 04/28/17 21:10 Glucose 170 mg/dl (75-110) H 04/28/17 21:10 Lactate 1.9 mmol/L (0.7-2.1) 04/28/17 21:10 FiO2 21.0 % 04/28/17 19:00 Sodium 138 mmol/L (132-148) 05/02/17 11:13 Potassium 4.2 mmol/L (3.6-5.2) 05/02/17 11:13 Chloride 108 mmol/L (98-107) H 05/02/17 11:13 Carbon Dioxide 20 mmol/L (22-30) L 05/02/17 11:13 Anion Gap 14 (10-20) 05/02/17 11:13 BUN 17 mg/dL (9-20) 05/02/17 11:13 Creatinine 1.1 MG/DL (0.8-1.5) 05/02/17 11:13 Est GFR ( Amer) > 60 05/02/17 11:13 Est GFR (Non-Af Amer) > 60 05/02/17 11:13 POC Glucose (mg/dL) 193 mg/dL (65-110) H 05/06/17 16:21 Random Glucose 266 mg/dL (75-110) H 05/02/17 11:13 Calcium 8.7 mg/dl (8.6-10.4) 05/02/17 11:13 Phosphorus 0.8 mg/dL (2.5-4.5) L* 04/28/17 19:00 Total Bilirubin 0.8 mg/dL (0.2-1.3) 05/02/17 11:13 Direct Bilirubin 2.2 mg/dL (0.0-0.4) H 04/29/17 12:33 AST 35 U/L (17-59) 05/02/17 11:13 ALT 150 U/L (21-72) H D 05/02/17 11:13 Alkaline Phosphatase 245 U/L (38-126) H 05/02/17 11:13 Total Creatine Kinase 74 U/L (55-170) 04/30/17 11:28 Total Protein 6.0 g/dL (6.3-8.3) L 05/02/17 11:13 Albumin 3.1 g/dL (3.5-5.0) L 05/02/17 11:13 Globulin 2.9 gm/dL (2.2-3.9) 05/02/17 11:13 Albumin/Globulin Ratio 1.1 (1.0-2.1) 05/02/17 11:13 Venous Blood Potassium 3.1 mmol/L (3.6-5.2) L 04/28/17 21:10 Urine Color Yellow (YELLOW) 04/28/17 20:00 Urine Clarity Clear (Clear) 04/28/17 20:00 Urine pH 5.0 (5.0-8.0) 04/28/17 20:00 Ur Specific [place] 1.016 (1.003-1.030) 04/28/17 20:00 Urine Protein 1+ mg/dL (NEGATIVE) H 04/28/17 20:00 Urine Glucose (UA) 2+ mg/dL (Normal) H 04/28/17 20:00 Urine Ketones Negative mg/dL (NEGATIVE) 04/28/17 20:00 Urine Blood Negative (NEGATIVE) 04/28/17 20:00 Urine Nitrate Negative (NEGATIVE) 04/28/17 20:00 Urine Bilirubin Negative (NEGATIVE) 04/28/17 20:00 Urine Urobilinogen Normal mg/dL (0.2-1.0) 04/28/17 20:00 Ur Leukocyte Esterase Neg David/uL (Negative) 04/28/17 20:00 Urine WBC (Auto) 13 /hpf (0-5) H 04/28/17 20:00 Urine RBC (Auto) < 1 /hpf (0-3) 04/28/17 20:00 Acetaminophen < 10.0 ug/mL (10.0-30.0) L 04/29/17 12:33 Alcohol, Quantitative < 10 mg/dl (0-10) 04/29/17 12:33 IgG 484.4 mg/dL (700.0-1600.0) L 04/29/17 12:33 MERNA 6 Profile Negative (NEGATIVE) 04/29/17 12:46 Anti-Mitochondrial Ab Negative (Negative) 04/29/17 12:33 Anti-Smooth Muscle Ab Negative (Negative) 04/29/17 12:33 Liver/Kid Microsomes Ab <=20.0 U (<=20.0) 04/29/17 12:33 Hepatitis A IgM Ab Negative (NEGATIVE) 04/28/17 20:44 Hep Bs Antigen Negative (NEGATIVE) 04/28/17 20:44 Hep B Core IgM Ab Negative (NEGATIVE) 04/28/17 20:44 Hepatitis C Antibody Negative (NEGATIVE) 04/28/17 20:44 - Hospital Course Hospital Course: Patient was treated with IV antibiotics as per IDs recommendation. Abdominal pain resolved all chair workup was negative. Patient was evaluated by GI team. Discharge Exam - Head Exam Head Exam: NORMOCEPHALIC - Eye Exam Eye Exam: Normal appearance - Respiratory Exam Respiratory Exam: absent: NORMAL BREATHING PATTERN - Cardiovascular Exam Cardiovascular Exam: +S1, +S2 - GI/Abdominal Exam GI & Abdominal Exam: Normal Bowel Sounds, Soft - Extremities Exam Extremities exam: normal inspection - Neurological Exam Neurological exam: Alert, Oriented x3 - Psychiatric Exam Psychiatric exam: Normal Affect, Normal Mood Discharge Plan - Discharge Medications Prescriptions: Ciprofloxacin [Cipro] 250 mg PO Q12 #42 tab Saccharomyces Boulardi [Florastor] 250 mg PO BID #42 cap - Follow Up Plan Condition: STABLE Disposition: HOME/ ROUTINE Instructions: Ciprofloxacin (By mouth), Heart Healthy Diet (DC), ERCP ( Endoscopic Retrograde Cholangiopancreatography) (DC), Sepsis (GEN), Upper Endoscopy (DC), Leukocytosis (DC), Weakness (GEN) Additional Instructions: [place] PARA DIONICIO DR. SULLIVAN EN ZELAYA OFICINA ENTRE HE SEMANA PARA FOLLOW UP-- -LLAME PARA LA HORA DE CONRAD. [place] PARA DIONICIO DR. SANTIAGO (EL MEDICO DEL [place] Y LIGADO) EN ZELAYA OFICINA ENTRE DOS SEMANAS PARA FOLLOW UP---LLAME PARA LA HORA DE CONRAD. SIGUE CON EL CENTRO PARA ZELAYA TERAPIA FISICA Y OTROS SERVICIOS. TIENES QUE SUSHANT EL ANTIBIOTICO, CIPRO, DOS VECES AL EDWIN PARA TREW SEMANAS PARA ZELAYA INFECCION EN LA JORDY. SI USTED TIENES MAS PREGUNTAS, PUEDE LLAMAR ZELAYA DOCTOR. Referrals: Riana Cadena MD [Staff Provider] - Miki GENTILE,MD [place] [Medical Doctor] - Calixto Langford MD [Staff Provider] - Cornelia Sullivan MD [Staff Provider] - Gavino Santiago MD [Staff Provider] -
== END 2017-05-06 16:45 | disposition home or self-care (01) | DRG 872 ==
LOC: C.ER 18:27 → C.9E 23:24 → C.5T 04-29 02:36 → C.6T 04-29 13:43
PROVIDERS: ADMIT Internal Medicine Nephrology; ATTEND Internal Medicine Nephrology
PROC: 0DJ08ZZ Inspection of Upper Intestinal Tract, Via Natural or Artificial Opening Endoscopic (ICD-10-PCS; 2017-05-01)
PROC: 0F798DZ Dilation of Common Bile Duct with Intraluminal Device, Via Natural or Artificial Opening Endoscopic (ICD-10-PCS; principal; 2017-05-01 14:00)
DX: A41.50 Gram-negative sepsis, unspecified (principal); E11.22 Type 2 diabetes mellitus with diabetic chronic kidney disease; K26.9 Duodenal ulcer, unspecified as acute or chronic, without hemorrhage or perforation; K76.0 Fatty (change of) liver, not elsewhere classified; K80.33 Calculus of bile duct with acute cholangitis with obstruction; G30.9 Alzheimer's disease, unspecified; F02.80 Dementia in other diseases classified elsewhere, unspecified severity, without behavioral disturbance, psychotic disturbance, mood disturbance, and anxiety; B96.1 Klebsiella pneumoniae [K. pneumoniae] as the cause of diseases classified elsewhere; E78.00 Pure hypercholesterolemia, unspecified; I12.9 Hypertensive chronic kidney disease with stage 1 through stage 4 chronic kidney disease, or unspecified chronic kidney disease; N18.3 Chronic kidney disease, stage 3 (moderate); K57.90 Diverticulosis of intestine, part unspecified, without perforation or abscess without bleeding; I25.10 Atherosclerotic heart disease of native coronary artery without angina pectoris; K83.8 Other specified diseases of biliary tract; K44.9 Diaphragmatic hernia without obstruction or gangrene; K20.9 Esophagitis, unspecified; K29.70 Gastritis, unspecified, without bleeding; Z86.73 Personal history of transient ischemic attack (TIA), and cerebral infarction without residual deficits; Z86.14 Personal history of Methicillin resistant Staphylococcus aureus infection; E86.0 Dehydration; D64.9 Anemia, unspecified; M17.0 Bilateral primary osteoarthritis of knee; M47.9 Spondylosis, unspecified

== ENCOUNTER 2017-06-24 14:14 | Inpatient (IN) | payer MEDICARE, OTHER ==
[2017-06-24 14:14] VITALS: BMI 26.2
--- NOTE | 2017-06-24 14:34 | C.PDOC ---
History Of Present Illness 81 y/o male sent from his adult day care for evaluation of a wound to the left buttock for 2 weeks. wound is described as painful. Reports putting Vicks on it at home and is now draining. Denies fever, chills, or any other complaints. Patient has a past history of MRSA infection. Time Seen by Provider: 06/24/17 14:23 Chief Complaint (Nursing): Abnormal Skin Integrity History Per: Patient History/Exam Limitations: no limitations Onset/Duration Of Symptoms: Days (2 weeks) Current Symptoms Are (Timing): Still Present Location Of Injury: Left: Buttock Quality Of Symptoms: Painful, Draining Severity: Mild Recent travel outside of the [place]: No Additional History Per: Patient Past Medical History Reviewed: Historical Data, Nursing Documentation, Vital Signs Vital Signs: Last Vital Signs Temp 97.8 F 06/24/17 14:19 Pulse 99 H 06/24/17 14:19 Resp 16 06/24/17 14:19 BP 169/82 H 06/24/17 14:19 Pulse Ox 98 06/24/17 15:15 - Medical History PMH: Alzheimer's Disease, Anemia, Arthritis (BACK, BL KNEE), CVA, Dementia, Diabetes, HTN, Hypercholesterolemia, Hyperlipidemia Denies: Chronic Kidney Disease - [facility] Procedures DILATION OF COMMON BILE DUCT WITH INTRALUMINAL DEVICE, ENDO (04/28/17) DRAINAGE OF R LOW LEG SUBCU/FASCIA, PERC APPROACH, DIAGN (02/05/17) EXCISION OF R LOW LEG SUBCU/FASCIA, OPEN APPROACH (02/05/17) EXCISION OF SMALL INTESTINE, ENDO, DIAGN (07/21/15) INSPECTION OF UPPER INTESTINAL TRACT, ENDO (04/28/17) OCCUPATIONAL THERAPY (03/15/14) OTHER SPEECH THERAPY (03/20/14) PHYSICAL THERAPY NEC (11/23/13) RECREATIONAL THERAPY (11/23/13) RELEASE PERITONEUM, PERCUTANEOUS ENDOSCOPIC APPROACH (12/03/15) RESECTION OF GALLBLADDER, PERCUTANEOUS ENDOSCOPIC APPROACH (12/03/15) Family History: States: Unknown Family Hx - Social History Hx Tobacco Use: No Hx Alcohol Use: No Hx Substance Use: No - Immunization History Hx Tetanus Toxoid Vaccination: No Hx Influenza Vaccination: Yes (2014) Hx Pneumococcal Vaccination: No Review Of Systems Except As Marked, All Systems Reviewed And Found Negative. Constitutional: Negative for: Fever, Chills Skin: Positive for: Other (Wound to the left buttock and drainage) Physical Exam - Physical Exam Appears: Non-toxic, No Acute Distress Skin: Warm, Dry, Other (Left gluteous, open wound with purulent drainage. Moderate amount of surrounding induration.) Head: Atraumatic, Normacephalic Respiratory: Normal Breath Sounds Gastrointestinal/Abdominal: Soft, No Tenderness Neurological/Psych: Normal Speech, Normal Cognition Gait: Steady ED Course And Treatment - Laboratory Results Result Diagrams: 06/24/17 14:39 06/24/17 14:39 Lab Interpretation: Abnormal (WBC 16.5 BUN 331, Cr 1.6, Glucose 217) O2 Sat by Pulse Oximetry: 98 (RA) Pulse Ox Interpretation: Normal Progress Note: Wound cultures obtained Reevaluation Time: 15:40 Reassessment Condition: Unchanged - Physician Consult Information Time Consulting Physician Contacted: 15:41 Physician Contacted: Kyle Barrera Outcome Of Conversation: Patient to be admitted for IV antibiotics. Medical Decision Making Medical Decision Making: Impression * wound to the left buttock for 2 weeks. With drainage. Plans: * Blood labs Disposition - Disposition Disposition: HOSPITALIZED Disposition Time: 15:41 Condition: STABLE - Clinical Impression Clinical Impression: Abscess - Scribe Statement The provider has reviewed the documentation as recorded by the Scribe [place] [email or web address] All medical record entries made by the Matthiasibceline were at my direction and personally dictated by me. I have reviewed the chart and agree that the record accurately reflects my personal performance of the history, physical exam, medical decision making, and the department course for this patient. I have also personally directed, reviewed, and agree with the discharge instructions and disposition.
[2017-06-24 14:45] LABS: BASO # 0.2 K/uL (0.0-0.2); BASO % 1.3 % (0.0-2.0); EOS # 0.2 K/uL (0.0-0.7); EOS % 1.1 % (0.0-4.0); HEMATOCRIT 34.9 % (35.0-51.0); LYMPH # 2.4 K/uL (1.0-4.3); LYMPH % 14.4 % (20.0-40.0); MEAN CELL VOLUME 84.4 fL (80.0-94.0); MEAN CORPUSCULAR HEMOGLOBIN 27.8 pg (27.0-31.0); MEAN CORPUSCULAR HGB CONC 32.9 g/dL (33.0-37.0); MEAN PLATELET VOLUME 8.8 fL (7.2-11.7); MONO # 1.6 K/uL (0.0-0.8); MONO % 9.5 % (0.0-10.0); RED CELL DISTRIBUTION WIDTH 14.1 % (11.5-14.5); WHITE BLOOD COUNT 16.5 K/uL (4.8-10.8)
[2017-06-24 15:15] LABS: POTASSIUM 4.6 mmol/L (3.6-5.2)
[2017-06-24 15:17] LABS: BILIRUBIN,TOTAL 0.8 mg/dL (0.2-1.3); CALCIUM 9.7 mg/dl (8.6-10.4); TOTAL PROTEIN 8.3 g/dL (6.3-8.3)
--- NOTE | 2017-06-24 16:21 | CP.PCM.HP ---
<Yvon Weaver - Last Filed: 06/24/17 17:50> History of Present Illness - History of Present Illness History of Present Illness: CC: left buttock wound 81F PMHx HTN, CVA HLD and dementia was sent from day care for evaluation of a wound on left buttock for the past 3 weeks. at bedside helping with history as pt only oriented to person. Pt complains of pain when sitting, as well as yellow drainage and blood coming out from the wound. Per , no work up has been initiated at day care for the wound. Pt also complains of intermittent mid sternal chest discomfort for past 3 weeks but currently he has no complaints. Pt denied having fever, chills, SOB, palpitations, abdominal pain , constipation, diarrhea. PMD: Nate KEN PMHx: HTN, DM, HLD, CVA 2013, dementia PSHx: L carotid surgery FHXx: HTN Social: denies tobacco, EtOH, drugs. Lives with , walks with cane, no problem with ADL Present on Admission - Present on Admission Any Indicators Present on Admission: No Review of Systems - Review of Systems Systems not reviewed;Unavailable: Dementia - Constitutional Constitutional: absent: Chills, Fever - EENT Eyes: absent: Blurred Vision - Cardiovascular Cardiovascular: absent: Chest Pain, Chest Pain at Rest, Dyspnea, Edema - Respiratory Respiratory: absent: Cough, Dyspnea - Gastrointestinal Gastrointestinal: absent: Abdominal Pain, Constipation, Diarrhea, Nausea, Vomiting - Genitourinary Genitourinary: absent: Dysuria, Pyuria - Musculoskeletal Additional comments: left buttock wound Past Patient History - Infectious Disease Hx of Infectious Diseases: None - Tetanus Immunizations Tetanus Immunization: Unknown - Past Medical History & Family History Past Medical History?: Yes - Past Social History Smoking Status: Never Smoked - CARDIAC Hx Hypercholesterolemia: Yes Hx Hypertension: Yes - PULMONARY Hx Respiratory Disorders: No - NEUROLOGICAL Hx Alzheimer's Disease: Yes Hx Dementia: Yes - HEENT Hx HEENT Problems: Yes Hx Cataracts: Yes (SURGERY) - RENAL Hx Chronic Kidney Disease: No - ENDOCRINE/METABOLIC Hx Endocrine Disorders: Yes Hx Diabetes Mellitus Type 2: Yes - HEMATOLOGICAL/ONCOLOGICAL Hx Anemia: Yes - INTEGUMENTARY Hx Dermatological Problems: No - MUSCULOSKELETAL/RHEUMATOLOGICAL Hx Arthritis: Yes (BACK, BL KNEE) - GASTROINTESTINAL Hx Gastrointestinal Disorders: Yes (''STOMACH BACTERIA'') - GENITOURINARY/GYNECOLOGICAL Hx Genitourinary Disorders: No - PSYCHIATRIC Hx Substance Use: No - SURGICAL HISTORY Hx Surgeries: Yes Hx Cataract Extraction: Yes Other/Comment: LEFT BEHIND EAR SURGERY FROM BLOOD CLOTS ,RIGHT HAND SURGERY - ANESTHESIA Hx Anesthesia: Yes Hx Anesthesia Reactions: No Hx Malignant Hyperthermia: No Meds Allergies/Adverse Reactions: Allergies Allergy/AdvReac Type Severity Reaction Status Date / Time No Known Allergies Allergy Verified 06/24/17 14:19 Physical Exam - Constitutional Appears: Non-toxic, No Acute Distress - Head Exam Head Exam: NORMOCEPHALIC - Eye Exam Eye Exam: Normal appearance Pupil Exam: NORMAL ACCOMODATION - ENT Exam ENT Exam: Mucous Membranes Moist - Respiratory Exam Respiratory Exam: Clear to Auscultation Bilateral, NORMAL BREATHING PATTERN. absent: Rales, Rhonchi, Wheezes - Cardiovascular Exam Cardiovascular Exam: REGULAR RHYTHM, +S1, +S2. absent: Gallop, JVD, Rubs - GI/Abdominal Exam GI & Abdominal Exam: Normal Bowel Sounds, Soft. absent: Tenderness - Neurological Exam Neurological exam: Alert, Altered (only oriented to person) - Psychiatric Exam Psychiatric exam: Normal Mood - Skin Skin Exam: Dry Additional comments: left buttock [id number] wound with purulent drainage on top of [id number] induration with erythema, tenderness to palpation Results - Vital Signs Recent Vital Signs: Last Vital Signs Temp 97.8 F 06/24/17 14:19 Pulse 99 H 06/24/17 14:19 Resp 16 06/24/17 14:19 BP 169/82 H 06/24/17 14:19 Pulse Ox 98 06/24/17 15:41 - Labs Result Diagrams: 06/24/17 14:39 06/24/17 14:39 Labs: Laboratory Results - last 24 hr 06/24/17 06/24/17 14:39 14:39 WBC 16.5 H D RBC 4.13 L Hgb 11.5 L Hct 34.9 L MCV 84.4 MCH 27.8 MCHC 32.9 L RDW 14.1 Plt Count 246 MPV 8.8 Neut % (Auto) 73.7 Lymph % (Auto) 14.4 L [place] % (Auto) 9.5 Eos % (Auto) 1.1 Baso % (Auto) 1.3 Neut # 12.1 H Lymph # 2.4 [place] # 1.6 H Eos # 0.2 Baso # 0.2 Sodium 137 Potassium 4.6 Chloride 103 Carbon Dioxide 19 L Anion Gap 20 BUN 31 H Creatinine 1.6 H Est GFR ( Amer) 51 Est GFR (Non-Af Amer) 42 Random Glucose 217 H Calcium 9.7 Total Bilirubin 0.8 AST 26 ALT 10 L D Alkaline Phosphatase 98 Total Protein 8.3 Albumin 4.2 Globulin 4.1 H Albumin/Globulin Ratio 1.0 Assessment & Plan - Assessment and Plan (Free Text) Assessment: Abscess WBC 16. ID Dr. Langford and surgery Dr. Barrow consulted, help appreciated. Unable to obtain IV access. Will start Zyvox PO per Dr. Langford for tonight. Wound care. IR access request. F/U blood and wound culture. Hx of CVA Plavix and ASA on hold. Hx of HTN Continue Toprol XL 100mg PO daily and Norvasc 10mg PO daily. Hx of hypothyroidism Cntinue Synthroid 50mcg PO daily. Hx of incontinence Continue Toviaz 8mg PO daily. Hx of anemia Continue Feosol 325mg PO daily. Prophylactic measure SCD, Protonix, HepSQ. <Kyle Barrera - Last Filed: 06/24/17 19:58> Results - Vital Signs Recent Vital Signs: Last Vital Signs Temp 98.4 F 06/24/17 18:17 Pulse 81 06/24/17 18:17 Resp 16 06/24/17 18:17 BP 139/55 L 06/24/17 18:17 Pulse Ox 98 06/24/17 18:17 - Labs Result Diagrams: 06/24/17 14:39 06/24/17 14:39 Labs: Laboratory Results - last 24 hr 06/24/17 06/24/17 14:39 14:39 WBC 16.5 H D RBC 4.13 L Hgb 11.5 L Hct 34.9 L MCV 84.4 MCH 27.8 MCHC 32.9 L RDW 14.1 Plt Count 246 MPV 8.8 Neut % (Auto) 73.7 Lymph % (Auto) 14.4 L [place] % (Auto) 9.5 Eos % (Auto) 1.1 Baso % (Auto) 1.3 Neut # 12.1 H Lymph # 2.4 [place] # 1.6 H Eos # 0.2 Baso # 0.2 Sodium 137 Potassium 4.6 Chloride 103 Carbon Dioxide 19 L Anion Gap 20 BUN 31 H Creatinine 1.6 H Est GFR ( Amer) 51 Est GFR (Non-Af Amer) 42 Random Glucose 217 H Calcium 9.7 Total Bilirubin 0.8 AST 26 ALT 10 L D Alkaline Phosphatase 98 Total Protein 8.3 Albumin 4.2 Globulin 4.1 H Albumin/Globulin Ratio 1.0 Attending/Attestation - Attestation I have personally seen and examined this patient.: Yes I have fully participated in the care of the patient.: Yes I have reviewed all pertinent clinical information: Yes Notes (Text): This is a 81F PMHx HTN, CVA HLD and dementia was sent from a day care for evaluation of a wound on left buttock.Patient has this abscess for the past 3 weeks. at bedside was helping with history .He is pleasant ,oriented to person. Pt complains of pain when sitting, as well as yellow drainage and blood coming out from the wound. Per .No pain,no fever patient was seen and examined with resident.Infected gluteal abscess.Patient has poor venous access.Will get surgery consult and ID consult started on oral Zyvox.Start on vanco and zosyn after IV line.follow cultures
--- NOTE | 2017-06-24 18:21 | CP.PCM.CON ---
History of Present Illness - History of Present Illness History of Present Illness: 81F with wound on left buttock for the past 3 weeks. Pt complains of pain when sitting, as well as yellow drainage and blood coming out from the wound. Per , no work up has been initiated at day care for the wound. ID consulted for antibiotic management NKDA PMHx: HTN, DM, HLD, CVA 2014, dementia PSHx: L carotid surgery FHXx: HTN Social: denies tobacco, EtOH, drugs. Lives with , walks with cane, no problem with ADL Review of Systems - Review of Systems All systems: reviewed and no additional remarkable complaints except - Constitutional Constitutional: absent: As Per HPI, Anorexia, Chills, Daytime Sleepiness, Excessive Sweating, Fatigue, Fever, Frequent Falls, Headache, Increased Appetite , Lethargy, Malaise, Night Sweats, Snoring, Sleep Apnea, Weight Gain, Weight Loss, Weakness, Other - EENT Eyes: absent: As Per HPI, Blind Spots, Blurred Vision, Change in Vision, Decreased Night Vision, Diplopia, Discharge, Dry Eye, Exophthalmos, Floaters, Irritation, Itchy Eyes, Loss of Peripheral Vision, Pain, Photophobia, Requires Corrective Lenses, Sees Flashes, Spots in Vision, Tunnel Vision, Other Visual Disturbances, Loss of Vision, Other Ears: absent: As Per HPI, Decreased Hearing, Ear Discharge, Ear Pain, Tinnitus, Abnormal Hearing, Disequilibrium, Dizziness, Other Nose/Mouth/Throat: absent: As Per HPI, Epistaxis, Nasal Congestion, Nasal Discharge, Nasal Obstruction, Nasal Trauma, Nose Pain, Post Nasal Drip, Sinus Pain, Sinus Pressure, Bleeding Gums, Change in Voice, Dental Pain, Dry Mouth, Dysphagia, Halitosis, Hoarsness, Lip Swelling, Mouth Lesions, Mouth Pain, Odynophagia, Sore Throat, Throat Swelling, Tongue Swelling, Facial Pain, Neck Pain, Neck Mass, Other - Cardiovascular Cardiovascular: absent: As Per HPI, Acrocyanosis, Chest Pain, Chest Pain at Rest , Chest Pain with Activity, Claudication, Diaphoresis, Dyspnea, Dyspnea on Exertion, Edema, Irregular Heart Rhythm, Pain Radiating to Arm/Neck/Jaw, Leg Edema, Leg Ulcers, Lightheadedness, Orthopnea, Palpitations, Paroxysmal Nocturnal Dyspnea, Pedal Edema, Radiating Pain, Rapid Heart Rate, Slow Heart Rate, Syncope, Other - Respiratory Respiratory: absent: As Per HPI, Cough, Dyspnea, Hemoptysis, Dyspnea on Exertion , Wheezing, Snoring, Stridor, Pain on Inspiration, Chest Congestion, Excessive Mucous Production, Change in Mucous Color, Pain with Coughing, Other - Gastrointestinal Gastrointestinal: absent: As Per HPI, Abdominal Pain, Belching, Bloating, Change in Bowel Habits, Change in Stool Character, Coffee Ground Emesis, Constipation, Cramping, Diarrhea, Dyspepsia, Dysphagia, Early Satiety, Excessive Flatus, Fecal Incontinence, Heartburn, Hematemesis, Hematochezia, Loose Stools, Melena, Nausea, Odynophagia, Temesmus, Vomiting, Other - Genitourinary Genitourinary: absent: As Per HPI, Change in Urinary Stream, Difficulty Urinating, Dysuria, Flank Pain, Hematuria, Pyuria, Nocturia, Urinary Incontinence, Urinary Frequency, Urinary Hesitance, Urinary Urgency, Voiding Freq/Small Amts, Freq UTI, Hx Renal/Bladder Calculi, Hx /Renal Surgery, Bladder Distension, Other - Musculoskeletal Musculoskeletal: absent: As Per HPI, Abnormal Gait, Arthralgias, Atrophy, Back Pain, Deformity, Joint Swelling, Limited Range of Motion, Loss of Height, Muscle Cramps, Muscle Weakness, Myalgias, Neck Pain, Numbness, Radiating Pain into Limb, Stiffness, Tingling, Other - Integumentary Integumentary: As Per HPI - Neurological Neurological: As Per HPI - Psychiatric Psychiatric: absent: As Per HPI, Abnormal Sleep Pattern, Anhedonia, Anxiety, Auditory Hallucinations, Behavioral Changes, Change in Appetite, Change in Libido, Confusion, Depression, Difficulty Concentrating, Hallucinations, Homicidal Ideation, Hopelessness, Irritability, Memory Loss, Mood Swings, Panic Attacks, Paranoia, Suicidal Ideation, Visual Hallucinations, Tactile Hallucinations, Other - Endocrine Endocrine: absent: As Per HPI, Change in Body Appearance, Change in Libido, Cold Intolorance, Deepening of Voice, Excessive Sweating, Fatigue, Flushing, Heat Intolorance, Increase in Ring/Shoe/Hat Size, Palpitations, Polydipsia, Polyphagia, Polyuria, Other Past Patient History - Infectious Disease Hx of Infectious Diseases: None - Tetanus Immunizations Tetanus Immunization: Unknown - Past Medical History & Family History Past Medical History?: Yes - Past Social History Smoking Status: Never Smoked - CARDIAC Hx Hypercholesterolemia: Yes Hx Hypertension: Yes - PULMONARY Hx Respiratory Disorders: No - NEUROLOGICAL Hx Alzheimer's Disease: Yes Hx Dementia: Yes - HEENT Hx HEENT Problems: Yes Hx Cataracts: Yes (SURGERY) - RENAL Hx Chronic Kidney Disease: No - ENDOCRINE/METABOLIC Hx Endocrine Disorders: Yes Hx Diabetes Mellitus Type 2: Yes - HEMATOLOGICAL/ONCOLOGICAL Hx Anemia: Yes - INTEGUMENTARY Hx Dermatological Problems: No - MUSCULOSKELETAL/RHEUMATOLOGICAL Hx Arthritis: Yes (BACK, BL KNEE) - GASTROINTESTINAL Hx Gastrointestinal Disorders: Yes (''STOMACH BACTERIA'') - GENITOURINARY/GYNECOLOGICAL Hx Genitourinary Disorders: No - PSYCHIATRIC Hx Substance Use: No - SURGICAL HISTORY Hx Surgeries: Yes Hx Cataract Extraction: Yes Other/Comment: LEFT BEHIND EAR SURGERY FROM BLOOD CLOTS ,RIGHT HAND SURGERY - ANESTHESIA Hx Anesthesia: Yes Hx Anesthesia Reactions: No Hx Malignant Hyperthermia: No Meds Allergies/Adverse Reactions: Allergies Allergy/AdvReac Type Severity Reaction Status Date / Time No Known Allergies Allergy Verified 06/24/17 14:19 - Medications Medications: Current Medications Amlodipine Besylate (Norvasc) 10 mg PO DAILY [facility] Ascorbic Acid (Vitamin C 250 Mg Tab) 250 mg PO DAILY [facility] Ferrous Sulfate (Feosol) 325 mg PO Q12H [facility] Home Med (Fesoterodine Fumarate [Toviaz]) 8 mg PO DAILY [facility] Levothyroxine Sodium (Synthroid) 50 mcg PO DAILY [facility] Metoprolol Succinate (Toprol Xl) 100 mg PO DAILY [facility] Pantoprazole Sodium (Protonix Ec Tab) 40 mg PO DAILY [facility] Physical Exam - Constitutional Appears: Non-toxic, Chronically Ill - Head Exam Head Exam: NORMOCEPHALIC - Eye Exam Eye Exam: PERRL. absent: Scleral icterus - ENT Exam ENT Exam: Mucous Membranes Dry, Normal External Ear Exam - Neck Exam Neck exam: Negative for: Lymphadenopathy - Respiratory Exam Respiratory Exam: Decreased Breath Sounds - Cardiovascular Exam Cardiovascular Exam: REGULAR RHYTHM - GI/Abdominal Exam GI & Abdominal Exam: Diminished Bowel Sounds - Rectal Exam Rectal Exam: Deferred - Exam Exam: NORMAL INSPECTION - Extremities Exam Extremities exam: Positive for: pedal pulses present. Negative for: calf tenderness, pedal edema, tenderness - Back Exam Back exam: absent: CVA tenderness (L), CVA tenderness (R) - Neurological Exam Neurological exam: Alert, CN II-XII Intact, Oriented x3, Reflexes Normal - Psychiatric Exam Psychiatric exam: Depressed - Skin Skin Exam: Dry Results - Vital Signs Recent Vital Signs: Last Vital Signs Temp 98.4 F 06/24/17 18:17 Pulse 81 06/24/17 18:17 Resp 16 06/24/17 18:17 BP 139/55 L 06/24/17 18:17 Pulse Ox 98 06/24/17 18:17 - Labs Result Diagrams: 06/26/17 10:13 06/26/17 08:39 Labs: Laboratory Results - last 24 hr 06/24/17 06/24/17 14:39 14:39 WBC 16.5 H D RBC 4.13 L Hgb 11.5 L Hct 34.9 L MCV 84.4 MCH 27.8 MCHC 32.9 L RDW 14.1 Plt Count 246 MPV 8.8 Neut % (Auto) 73.7 Lymph % (Auto) 14.4 L [place] % (Auto) 9.5 Eos % (Auto) 1.1 Baso % (Auto) 1.3 Neut # 12.1 H Lymph # 2.4 [place] # 1.6 H Eos # 0.2 Baso # 0.2 Sodium 137 Potassium 4.6 Chloride 103 Carbon Dioxide 19 L Anion Gap 20 BUN 31 H Creatinine 1.6 H Est GFR ( Amer) 51 Est GFR (Non-Af Amer) 42 Random Glucose 217 H Calcium 9.7 Total Bilirubin 0.8 AST 26 ALT 10 L D Alkaline Phosphatase 98 Total Protein 8.3 Albumin 4.2 Globulin 4.1 H Albumin/Globulin Ratio 1.0 Assessment & Plan (1) Abscess Status: Acute (2) AD (Alzheimer's disease) Status: Acute (3) CKD (chronic kidney disease) stage 3, GFR 30-59 ml/min Status: Acute - Assessment and Plan (Free Text) Assessment: cont iv then po antibiotics min 7 days
--- NOTE | 2017-06-24 19:28 | CP.PCM.CON ---
History of Present Illness - History of Present Illness History of Present Illness: GENERAL SURGERY CONSULT NOTE FOR DR. HERNANDES 81yo M with PMHx of HTN, CVA HLD and dementia was sent from day care for evaluation of a wound on left buttock for the past 3 weeks. The patient was only oriented to person due to demenitia. History is obtained from EMR and from H&P which was taken while was at bedside helping with history. Pt complains of pain when sitting, as well as yellow drainage and blood coming out from the wound. Pt denied having fever, chills, SOB, palpitations, abdominal pain, constipation, diarrhea. NKDA PMHx: HTN, DM, HLD, CVA 2014, dementia, hypothyroidism PSHx: L carotid surgery Social: denies tobacco, EtOH, drugs. Lives with , walks with cane, no problem with ADL Review of Systems - Review of Systems All systems: reviewed and no additional remarkable complaints except (as per HPI ) Past Patient History - Infectious Disease Hx of Infectious Diseases: None - Tetanus Immunizations Tetanus Immunization: Unknown - Past Medical History & Family History Past Medical History?: Yes - Past Social History Smoking Status: Never Smoked - CARDIAC Hx Hypercholesterolemia: Yes Hx Hypertension: Yes - PULMONARY Hx Respiratory Disorders: No - NEUROLOGICAL Hx Alzheimer's Disease: Yes Hx Dementia: Yes - HEENT Hx HEENT Problems: Yes Hx Cataracts: Yes (SURGERY) - RENAL Hx Chronic Kidney Disease: No - ENDOCRINE/METABOLIC Hx Endocrine Disorders: Yes Hx Diabetes Mellitus Type 2: Yes - HEMATOLOGICAL/ONCOLOGICAL Hx Anemia: Yes - INTEGUMENTARY Hx Dermatological Problems: No - MUSCULOSKELETAL/RHEUMATOLOGICAL Hx Arthritis: Yes (BACK, BL KNEE) - GASTROINTESTINAL Hx Gastrointestinal Disorders: Yes (''STOMACH BACTERIA'') - GENITOURINARY/GYNECOLOGICAL Hx Genitourinary Disorders: No - PSYCHIATRIC Hx Substance Use: No - SURGICAL HISTORY Hx Surgeries: Yes Hx Cataract Extraction: Yes Other/Comment: LEFT BEHIND EAR SURGERY FROM BLOOD CLOTS ,RIGHT HAND SURGERY - ANESTHESIA Hx Anesthesia: Yes Hx Anesthesia Reactions: No Hx Malignant Hyperthermia: No Meds Allergies/Adverse Reactions: Allergies Allergy/AdvReac Type Severity Reaction Status Date / Time No Known Allergies Allergy Verified 06/24/17 14:19 - Medications Medications: Current Medications Amlodipine Besylate (Norvasc) 10 mg PO DAILY [facility] Ascorbic Acid (Vitamin C 250 Mg Tab) 250 mg PO DAILY [facility] Ferrous Sulfate (Feosol) 325 mg PO Q12H [facility] Heparin Sodium (Porcine) (Heparin) 5,000 units SC Q12 [facility] Home Med (Fesoterodine Fumarate [Toviaz]) 8 mg PO DAILY [facility] Levothyroxine Sodium (Synthroid) 50 mcg PO QD7 [facility] Linezolid (Zyvox) 600 mg PO Q12H [facility] Metoprolol Succinate (Toprol Xl) 100 mg PO DAILY [facility] Pantoprazole Sodium (Protonix Ec Tab) 40 mg PO DAILY [facility] Physical Exam - Constitutional Appears: Well, Non-toxic, No Acute Distress - Head Exam Head Exam: ATRAUMATIC, NORMAL INSPECTION - Respiratory Exam Respiratory Exam: NORMAL BREATHING PATTERN. absent: Respiratory Distress - Cardiovascular Exam Cardiovascular Exam: +S1, +S2 - GI/Abdominal Exam GI & Abdominal Exam: Soft. absent: Tenderness - Neurological Exam Neurological exam: Alert, Altered - Psychiatric Exam Psychiatric exam: Normal Affect, Normal Mood - Skin Additional comments: Left buttock with small abscess with small amount pus draining from it. Minimal fluctuance. Surrounding erythema, induration, heat. Tenderness Results - Vital Signs Recent Vital Signs: Last Vital Signs Temp 98.4 F 06/24/17 18:17 Pulse 81 06/24/17 18:17 Resp 16 06/24/17 18:17 BP 139/55 L 06/24/17 18:17 Pulse Ox 98 06/24/17 18:17 - Labs Result Diagrams: 06/24/17 14:39 06/24/17 14:39 Labs: Laboratory Results - last 24 hr 06/24/17 06/24/17 14:39 14:39 WBC 16.5 H D RBC 4.13 L Hgb 11.5 L Hct 34.9 L MCV 84.4 MCH 27.8 MCHC 32.9 L RDW 14.1 Plt Count 246 MPV 8.8 Neut % (Auto) 73.7 Lymph % (Auto) 14.4 L [place] % (Auto) 9.5 Eos % (Auto) 1.1 Baso % (Auto) 1.3 Neut # 12.1 H Lymph # 2.4 [place] # 1.6 H Eos # 0.2 Baso # 0.2 Sodium 137 Potassium 4.6 Chloride 103 Carbon Dioxide 19 L Anion Gap 20 BUN 31 H Creatinine 1.6 H Est GFR ( Amer) 51 Est GFR (Non-Af Amer) 42 Random Glucose 217 H Calcium 9.7 Total Bilirubin 0.8 AST 26 ALT 10 L D Alkaline Phosphatase 98 Total Protein 8.3 Albumin 4.2 Globulin 4.1 H Albumin/Globulin Ratio 1.0 Assessment & Plan - Assessment and Plan (Free Text) Assessment: 81yo M with PMHx of HTN, CVA HLD and dementia with left buttock small draining abscess with surrounding cellulitis - Afebrile, VSS - Leukocytosis WBC 16.5 - Warm compresses - Abx per ID - Possible I&D after a warm compresses & Abx - Will discuss plan with Dr. Pushpa Tamayo PGY-3
[2017-06-24] MEDS: (Novolin R) Insulin Human Regular 100 units/ml vial SC SCH (21:58)
[2017-06-25] MEDS: Levothyroxine 50 MCG TAB PO SCH (06:08)
[2017-06-25 06:34] LABS: BASO # 0.1 K/uL (0.0-0.2); BASO % 0.9 % (0.0-2.0); EOS # 0.4 K/uL (0.0-0.7); EOS % 3.1 % (0.0-4.0); HEMATOCRIT 31.8 % (35.0-51.0); LYMPH # 2.9 K/uL (1.0-4.3); LYMPH % 22.1 % (20.0-40.0); MEAN CELL VOLUME 82.2 fL (80.0-94.0); MEAN CORPUSCULAR HEMOGLOBIN 27.6 pg (27.0-31.0); MEAN CORPUSCULAR HGB CONC 33.6 g/dL (33.0-37.0); MEAN PLATELET VOLUME 8.7 fL (7.2-11.7); MONO # 1.2 K/uL (0.0-0.8); RED CELL DISTRIBUTION WIDTH 14.3 % (11.5-14.5); WHITE BLOOD COUNT 13.2 K/uL (4.8-10.8)
[2017-06-25 07:51] LABS: POTASSIUM 4.4 mmol/L (3.6-5.2)
[2017-06-25 07:53] LABS: ALB/GLOB RATIO 1.1 (1.0-2.1); BILIRUBIN,TOTAL 0.8 mg/dL (0.2-1.3); CALCIUM 9.3 mg/dl (8.6-10.4); TOTAL PROTEIN 7.4 g/dL (6.3-8.3)
[2017-06-25] MEDS: (Novolin R) Insulin Human Regular 100 units/ml vial SC SCH ×4 (08:30→22:14)
[2017-06-25] MEDS ORDERED: Saccharomyces Boulardi 250 mg Cap PO SCH (10:00)
--- NOTE | 2017-06-25 10:23 | CP.PCM.PN ---
<Rober Crane - Last Filed: 06/25/17 17:23> Subjective - Date & Time of Evaluation Date of Evaluation: 06/25/17 Time of Evaluation: 10:23 - Subjective Subjective: PGY1 Medicine Note for Dr. Barrera Patient seen and examined at bedside this morning. Patient is seen eating his breakfast and states that he has no complaints. Patient reports no pain at this time. Denies f/c, n/v, d/c, sob, cp or headaches. Objective - Vital Signs/Intake and Output Vital Signs (last 24 hours): Temp Pulse Resp BP Pulse Ox 98.3 F 67 20 114/66 96 06/25/17 07:52 06/25/17 07:52 06/25/17 07:52 06/25/17 07:52 06/25/17 07:52 Intake and Output: 06/25/17 06/25/17 06:59 18:59 Intake Total 300 Output Total 500 Balance -200 - Medications Medications: Current Medications Acetaminophen (Tylenol 325mg Tab) 650 mg PO Q6 PRN PRN Reason: Pain, Mild (1-3) Amlodipine Besylate (Norvasc) 10 mg PO DAILY [facility] Ascorbic Acid (Vitamin C 250 Mg Tab) 250 mg PO DAILY [facility] Ferrous Sulfate (Feosol) 325 mg PO Q12H [facility] Last Admin: 06/24/17 21:35 Dose: 325 mg Heparin Sodium (Porcine) (Heparin) 5,000 units SC Q12 [facility] Last Admin: 06/24/17 21:36 Dose: 5,000 units Insulin Human Regular (Novolin R) 0 unit SC ACHS [facility] PRN Reason: Protocol Last Admin: 06/25/17 08:30 Dose: Not Given Levothyroxine Sodium (Synthroid) 50 mcg PO DAILY@0630 [facility] Last Admin: 06/25/17 06:08 Dose: 50 mcg Linezolid (Zyvox) 600 mg PO Q12H [facility] Last Admin: 06/25/17 08:57 Dose: 600 mg Metoprolol Succinate (Toprol Xl) 100 mg PO DAILY [facility] Pantoprazole Sodium (Protonix Ec Tab) 40 mg PO DAILY [facility] Pneumococcal Polyvalent Vaccine (Pneumovax 23 Vaccine) 0.5 ml IM .ONCE ONE Stop: 06/27/17 10:01 Tolterodine Tartrate (Detrol La) 4 mg PO DAILY [facility] - Labs Labs: 10/12/17 06:23 06/25/17 06:23 - Constitutional Appears: Non-toxic, No Acute Distress - Head Exam Head Exam: NORMAL INSPECTION - Eye Exam Eye Exam: EOMI, Normal appearance - ENT Exam ENT Exam: Mucous Membranes Moist - Respiratory Exam Respiratory Exam: Clear to Ausculation Bilateral, NORMAL BREATHING PATTERN. absent: Accessory Muscle Use, Rales, Wheezes, Respiratory Distress - Cardiovascular Exam Cardiovascular Exam: REGULAR RHYTHM, +S1, +S2 - GI/Abdominal Exam GI & Abdominal Exam: Soft, Normal Bowel Sounds. absent: Distended, Firm, Guarding, Rigid, Tenderness - Extremities Exam Extremities Exam: Normal Capillary Refill. absent: Calf Tenderness, Pedal Edema - Neurological Exam Neurological Exam: Alert, Awake, Oriented x3 (self only) - Psychiatric Exam Psychiatric exam: Normal Mood - Skin Skin Exam: Dry, Warm Additional comments: left buttock [id number] wound with purulent drainage, with surrounding [id number] area of induration with erythema, tender to palpation Assessment and Plan - Assessment and Plan (Free Text) Plan: Abscess WBC 16. ID Dr. Langford for abx management Surgery Dr. Barrow consulted - currently using warm compresses. Will I&D if abscess stops draining. Unable to obtain IV access. Zyvox 600mg PO Q12H IR access request. Wound care. F/U blood and wound culture. Hx of CVA Plavix and ASA on hold. Hx of HTN Continue Toprol XL 100mg PO daily and Norvasc 10mg PO daily. Hx of hypothyroidism Continue Synthroid 50mcg PO daily. Hx of incontinence Continue Toviaz 8mg PO daily. Hx of anemia Continue Feosol 325mg PO daily. Prophylactic measure SCD Protonix Heparin SQ Case discussed with Dr. Holly Prathern PGY1 <Kyle Barrera - Last Filed: 06/25/17 19:10> Objective - Vital Signs/Intake and Output Vital Signs (last 24 hours): Temp Pulse Resp BP Pulse Ox 98.3 F 62 20 98/61 L 97 06/25/17 15:00 06/25/17 15:00 06/25/17 15:00 06/25/17 15:00 06/25/17 15:00 Intake and Output: 06/25/17 06/25/17 06:59 18:59 Intake Total 300 480 Output Total 500 400 Balance -200 80 - Medications Medications: Current Medications Acetaminophen (Tylenol 325mg Tab) 650 mg PO Q6 PRN PRN Reason: Pain, Mild (1-3) Last Admin: 06/25/17 11:30 Dose: 650 mg Amlodipine Besylate (Norvasc) 10 mg PO DAILY [facility] Last Admin: 06/25/17 10:28 Dose: 10 mg Ascorbic Acid (Vitamin C 250 Mg Tab) 250 mg PO DAILY [facility] Last Admin: 06/25/17 10:29 Dose: 250 mg Ferrous Sulfate (Feosol) 325 mg PO Q12H [facility] Last Admin: 06/25/17 11:00 Dose: 325 mg Heparin Sodium (Porcine) (Heparin) 5,000 units SC Q12 [facility] Last Admin: 06/25/17 11:00 Dose: 5,000 units Insulin Glargine (Lantus) 15 unit SC [facility] Insulin Human Regular (Novolin R) 0 unit SC [facility] PRN Reason: Protocol Last Admin: 06/25/17 17:45 Dose: 2 unit Levothyroxine Sodium (Synthroid) 50 mcg PO DAILY@0630 [facility] Last Admin: 06/25/17 06:08 Dose: 50 mcg Linezolid (Zyvox) 600 mg PO Q12H [facility] Last Admin: 06/25/17 08:57 Dose: 600 mg Metoprolol Succinate (Toprol Xl) 100 mg PO DAILY [facility] Last Admin: 06/25/17 10:28 Dose: 100 mg Pantoprazole Sodium (Protonix Ec Tab) 40 mg PO DAILY [facility] Last Admin: 06/25/17 10:28 Dose: 40 mg Pneumococcal Polyvalent Vaccine (Pneumovax 23 Vaccine) 0.5 ml IM .ONCE ONE Stop: 06/27/17 10:01 Tolterodine Tartrate (Detrol La) 4 mg PO DAILY [facility] Last Admin: 06/25/17 11:00 Dose: 4 mg - Labs Labs: 06/25/17 06:23 06/25/17 06:23 Attending/Attestation - Attestation I have personally seen and examined this patient.: Yes I have fully participated in the care of the patient.: Yes I have reviewed all pertinent clinical information, including history, physical exam and plan: Yes Notes (Text): This is a 81 years old male with history of DM, HTN,CVA and dementia was brought in for evaluation of gluteal abscess 1.Gluteal abscess-On zyvox.No venous access.I will place lexi for him.Failed IJ access.change to IV antibiotics once get the line 2.Hyperglycemia.H/O DM Not on meds.Do HA1c and start on Lantus 2.Hypertension 3.Hypothyroidism 5.Dementia 6.Acute renal failure-Oral hydration,follow creatinine 7.continue GI and DVT prophylaxis
[2017-06-25] MEDS: Metoprolol Succinate 100 mg XL Tab PO SCH (10:28)
[2017-06-25] MEDS: Pantoprazole 40 mg EC Tab PO SCH (10:28)
[2017-06-25] MEDS: Tolterodine 4 mg ER Cap PO SCH (11:00)
--- NOTE | 2017-06-25 11:55 | CP.PCM.PN ---
Subjective - Date & Time of Evaluation Date of Evaluation: 06/25/17 Time of Evaluation: 09:50 - Subjective Subjective: General Surgery Dr. Barrow Pt S&E @bedside. NAEO. no complaints. denies F/C, N/V, D/C. tolerating diet. Objective - Vital Signs/Intake and Output Vital Signs (last 24 hours): Temp Pulse Resp BP Pulse Ox 98.3 F 67 20 114/66 96 06/25/17 07:52 06/25/17 07:52 06/25/17 07:52 06/25/17 07:52 06/25/17 07:52 Intake and Output: 06/25/17 06/25/17 06:59 18:59 Intake Total 300 Output Total 500 Balance -200 - Medications Medications: Current Medications Acetaminophen (Tylenol 325mg Tab) 650 mg PO Q6 PRN PRN Reason: Pain, Mild (1-3) Last Admin: 06/25/17 11:30 Dose: 650 mg Amlodipine Besylate (Norvasc) 10 mg PO DAILY [facility] Last Admin: 06/25/17 10:28 Dose: 10 mg Ascorbic Acid (Vitamin C 250 Mg Tab) 250 mg PO DAILY [facility] Last Admin: 06/25/17 10:29 Dose: 250 mg Ferrous Sulfate (Feosol) 325 mg PO Q12H [facility] Last Admin: 06/25/17 11:00 Dose: 325 mg Heparin Sodium (Porcine) (Heparin) 5,000 units SC Q12 [facility] Last Admin: 06/25/17 11:00 Dose: 5,000 units Insulin Human Regular (Novolin R) 0 unit SC ACHS [facility] PRN Reason: Protocol Last Admin: 06/25/17 08:30 Dose: Not Given Levothyroxine Sodium (Synthroid) 50 mcg PO DAILY@0630 [facility] Last Admin: 06/25/17 06:08 Dose: 50 mcg Linezolid (Zyvox) 600 mg PO Q12H [facility] Last Admin: 06/25/17 08:57 Dose: 600 mg Metoprolol Succinate (Toprol Xl) 100 mg PO DAILY [facility] Last Admin: 06/25/17 10:28 Dose: 100 mg Pantoprazole Sodium (Protonix Ec Tab) 40 mg PO DAILY [facility] Last Admin: 06/25/17 10:28 Dose: 40 mg Pneumococcal Polyvalent Vaccine (Pneumovax 23 Vaccine) 0.5 ml IM .ONCE ONE Stop: 06/27/17 10:01 Tolterodine Tartrate (Detrol La) 4 mg PO DAILY [facility] Last Admin: 06/25/17 11:00 Dose: 4 mg - Labs Labs: 06/25/17 06:23 06/25/17 06:23 - Constitutional Appears: Non-toxic, No Acute Distress - Head Exam Head Exam: NORMAL INSPECTION - Eye Exam Eye Exam: Normal appearance - ENT Exam ENT Exam: Mucous Membranes Moist - Respiratory Exam Respiratory Exam: NORMAL BREATHING PATTERN. absent: Accessory Muscle Use, Respiratory Distress - GI/Abdominal Exam GI & Abdominal Exam: Soft. absent: Distended, Tenderness - Rectal Exam Additional comments: L gluteal abscess draining fouling-smelling, thick, cloudy fluid. - Extremities Exam Extremities Exam: Normal Inspection - Neurological Exam Neurological Exam: Alert, Awake - Psychiatric Exam Psychiatric exam: Normal Affect, Normal Mood - Skin Skin Exam: Dry, Warm Assessment and Plan - Assessment and Plan (Free Text) Assessment: 81 y/o M w/ L buttock abscess and surrounding cellulitis - f/u wound culture - change dressing PRN - cont IV Abx - cont pain management - may need I&D if no longer spontaneously draining Pt discussed w/ Dr. Pushpa Harris DO PGY2
--- NOTE | 2017-06-25 19:13 | CP.PCM.PN ---
Subjective - Date & Time of Evaluation Date of Evaluation: 06/25/17 Time of Evaluation: 10:00 - Subjective Subjective: awake alert confused Objective - Vital Signs/Intake and Output Vital Signs (last 24 hours): Temp Pulse Resp BP Pulse Ox 98.3 F 62 20 98/61 L 97 06/25/17 15:00 06/25/17 15:00 06/25/17 15:00 06/25/17 15:00 06/25/17 15:00 Intake and Output: 06/25/17 06/26/17 18:59 06:59 Intake Total 480 Output Total 400 Balance 80 - Medications Medications: Current Medications Acetaminophen (Tylenol 325mg Tab) 650 mg PO Q6 PRN PRN Reason: Pain, Mild (1-3) Last Admin: 06/25/17 11:30 Dose: 650 mg Amlodipine Besylate (Norvasc) 10 mg PO DAILY [facility] Last Admin: 06/25/17 10:28 Dose: 10 mg Ascorbic Acid (Vitamin C 250 Mg Tab) 250 mg PO DAILY [facility] Last Admin: 06/25/17 10:29 Dose: 250 mg Ferrous Sulfate (Feosol) 325 mg PO Q12H [facility] Last Admin: 06/25/17 11:00 Dose: 325 mg Heparin Sodium (Porcine) (Heparin) 5,000 units SC Q12 [facility] Last Admin: 06/25/17 11:00 Dose: 5,000 units Insulin Glargine (Lantus) 10 unit SC HS [facility] Insulin Human Regular (Novolin R) 0 unit SC ACHS [facility] PRN Reason: Protocol Last Admin: 06/25/17 17:45 Dose: 2 unit Levothyroxine Sodium (Synthroid) 50 mcg PO DAILY@0630 [facility] Last Admin: 06/25/17 06:08 Dose: 50 mcg Linezolid (Zyvox) 600 mg PO Q12H [facility] Last Admin: 06/25/17 08:57 Dose: 600 mg Metoprolol Succinate (Toprol Xl) 100 mg PO DAILY [facility] Last Admin: 06/25/17 10:28 Dose: 100 mg Pantoprazole Sodium (Protonix Ec Tab) 40 mg PO DAILY [facility] Last Admin: 06/25/17 10:28 Dose: 40 mg Pneumococcal Polyvalent Vaccine (Pneumovax 23 Vaccine) 0.5 ml IM .ONCE ONE Stop: 06/27/17 10:01 Tolterodine Tartrate (Detrol La) 4 mg PO DAILY [facility] Last Admin: 06/25/17 11:00 Dose: 4 mg - Labs Labs: 06/25/17 06:23 06/25/17 06:23 - Constitutional Appears: Non-toxic, Chronically Ill - Head Exam Head Exam: NORMOCEPHALIC - Eye Exam Eye Exam: PERRL - ENT Exam ENT Exam: Mucous Membranes Dry - Neck Exam Neck Exam: absent: Lymphadenopathy - Respiratory Exam Respiratory Exam: Decreased Breath Sounds - Cardiovascular Exam Cardiovascular Exam: REGULAR RHYTHM - GI/Abdominal Exam GI & Abdominal Exam: Distended - Rectal Exam Rectal Exam: Deferred - Exam Exam: NORMAL INSPECTION - Extremities Exam Extremities Exam: absent: Pedal Edema - Back Exam Back Exam: absent: CVA tenderness (L), CVA tenderness (R) - Neurological Exam Neurological Exam: Alert, Awake, Oriented x3 - Psychiatric Exam Psychiatric exam: Normal Mood - Skin Skin Exam: Dry Assessment and Plan (1) Abscess Status: Acute (2) AD (Alzheimer's disease) Status: Acute (3) JAY JAY (acute kidney injury) Status: Acute (4) Abdominal pain Status: Acute (5) CKD (chronic kidney disease) stage 3, GFR 30-59 ml/min Status: Acute - Assessment and Plan (Free Text) Plan: await cultures cont iv antibiotics
[2017-06-25] MEDS ORDERED: (Lantus) Insulin Glargine, Recombinant SC SCH (22:00)
[2017-06-25] MEDS: (Lantus) Insulin Glargine, Recombinant SC SCH (22:17)
[2017-06-26] MEDS: Levothyroxine 50 MCG TAB PO SCH (05:43)
[2017-06-26 07:50] VITALS: RESP 20
[2017-06-26] MEDS: (Novolin R) Insulin Human Regular 100 units/ml vial SC SCH ×4 (08:18→21:38)
--- NOTE | 2017-06-26 08:32 | CP.PCM.PN ---
Subjective - Date & Time of Evaluation Date of Evaluation: 06/26/17 Time of Evaluation: 07:00 - Subjective Subjective: General Surgery Note for Dr. Barrow Pt S&E and bedside and in no acute Distress. Patient having some pain on his left buttocks from the abscess. Patient denies F/C, N/V, D/C. Patient is tolerating diet. Objective - Vital Signs/Intake and Output Vital Signs (last 24 hours): Temp Pulse Resp BP Pulse Ox 97.9 F 64 20 124/68 97 06/26/17 07:49 06/26/17 07:49 06/26/17 07:49 06/26/17 07:49 06/26/17 07:49 Intake and Output: 06/26/17 06/26/17 06:59 18:59 Intake Total 760 Output Total 300 Balance 460 - Medications Medications: Current Medications Acetaminophen (Tylenol 325mg Tab) 650 mg PO Q6 PRN PRN Reason: Pain, Mild (1-3) Last Admin: 06/25/17 11:30 Dose: 650 mg Amlodipine Besylate (Norvasc) 10 mg PO DAILY [facility] Last Admin: 06/25/17 10:28 Dose: 10 mg Ascorbic Acid (Vitamin C 250 Mg Tab) 250 mg PO DAILY [facility] Last Admin: 06/25/17 10:29 Dose: 250 mg Ferrous Sulfate (Feosol) 325 mg PO Q12H [facility] Last Admin: 06/25/17 22:08 Dose: 325 mg Heparin Sodium (Porcine) (Heparin) 5,000 units SC Q12 [facility] Last Admin: 06/25/17 22:07 Dose: 5,000 units Insulin Glargine (Lantus) 10 unit SC HS [facility] Last Admin: 06/25/17 22:17 Dose: 10 units Insulin Human Regular (Novolin R) 0 unit SC ACHS [facility] PRN Reason: Protocol Last Admin: 06/26/17 08:18 Dose: 2 unit Levothyroxine Sodium (Synthroid) 50 mcg PO DAILY@0630 [facility] Last Admin: 06/26/17 05:43 Dose: 50 mcg Linezolid (Zyvox) 600 mg PO Q12H [facility] Last Admin: 06/26/17 08:18 Dose: 600 mg Metoprolol Succinate (Toprol Xl) 100 mg PO DAILY [facility] Last Admin: 06/25/17 10:28 Dose: 100 mg Pantoprazole Sodium (Protonix Ec Tab) 40 mg PO DAILY [facility] Last Admin: 06/25/17 10:28 Dose: 40 mg Pneumococcal Polyvalent Vaccine (Pneumovax 23 Vaccine) 0.5 ml IM .ONCE ONE Stop: 06/27/17 10:01 Tolterodine Tartrate (Detrol La) 4 mg PO DAILY [facility] Last Admin: 06/25/17 11:00 Dose: 4 mg - Labs Labs: 06/25/17 06:23 06/25/17 06:23 - Constitutional Appears: Non-toxic, No Acute Distress - Head Exam Head Exam: ATRAUMATIC, NORMAL INSPECTION, NORMOCEPHALIC - Eye Exam Eye Exam: EOMI, Normal appearance - ENT Exam ENT Exam: Mucous Membranes Moist - Respiratory Exam Respiratory Exam: NORMAL BREATHING PATTERN. absent: Accessory Muscle Use, Respiratory Distress - Cardiovascular Exam Cardiovascular Exam: +S1, +S2 - GI/Abdominal Exam GI & Abdominal Exam: Soft. absent: Tenderness - Rectal Exam Additional comments: L gluteal abscess draining fouling-smelling, thick, cloudy fluid. - Neurological Exam Neurological Exam: Alert, Awake - Psychiatric Exam Psychiatric exam: Normal Affect, Normal Mood - Skin Skin Exam: Normal Color, Warm Assessment and Plan - Assessment and Plan (Free Text) Assessment: 81 y/o M w/ L buttock abscess and surrounding cellulitis - wound culture: staph aureus - cont IV Abx - change dressing PRN - cont pain management - I&D at bedside today 06/26 , patient tolerated well Pt discussed w/ Dr. Barrow Incision and Drainage - Time Time Performed: 13:19 - Consent obtained Consent obtained: Written - Performed by Performed by: Mid-level Provider - Indications Indications: Cutaneous abscess - Contraindications Contraindications: None - Location Location: Left, Skin abscess (buttocks ) - Dimensions Dimensions Length cm: 5cm Dimensions width cm: 3cm - Anesthetic Technique Anesthetic Technique: Local - Anesthetic Anesthetic: Lidocaine 1% - Procedure Procedure: Usual prep and drape, cm incision (2cm), Overlying area fluctuance, # scalpel used (11), Explored for loculations, Irrigated, Packed with sterile gauze - Drained Drained: ml blood (10) - Post-procedure Post procedure: Dressed - Complications Complications: None - Patient tolerated procedure Patient tolerated procedure: Well
[2017-06-26 08:56] LABS: POTASSIUM 4.3 mmol/L (3.6-5.2)
[2017-06-26 08:58] LABS: BILIRUBIN,TOTAL 0.4 mg/dL (0.2-1.3)
[2017-06-26 08:59] LABS: CALCIUM 9.3 mg/dl (8.6-10.4); TOTAL PROTEIN 7.8 g/dL (6.3-8.3)
[2017-06-26] MEDS: Tolterodine 4 mg ER Cap PO SCH (10:41)
[2017-06-26] MEDS: Metoprolol Succinate 100 mg XL Tab PO SCH (10:41)
[2017-06-26] MEDS: Pantoprazole 40 mg EC Tab PO SCH (10:41)
[2017-06-26 11:01] LABS: BASO # 0.1 K/uL (0.0-0.2); BASO % 1.2 % (0.0-2.0); EOS # 0.4 K/uL (0.0-0.7); EOS % 4.5 % (0.0-4.0); HEMATOCRIT 33.9 % (35.0-51.0); LYMPH % 23.6 % (20.0-40.0); MEAN CELL VOLUME 84.3 fL (80.0-94.0); MEAN CORPUSCULAR HEMOGLOBIN 28.1 pg (27.0-31.0); MEAN CORPUSCULAR HGB CONC 33.3 g/dL (33.0-37.0); MONO # 0.8 K/uL (0.0-0.8); MONO % 9.1 % (0.0-10.0); RED CELL DISTRIBUTION WIDTH 13.9 % (11.5-14.5); WHITE BLOOD COUNT 8.7 K/uL (4.8-10.8)
--- NOTE | 2017-06-26 15:49 | CP.PCM.PN ---
<Rober Crane - Last Filed: 06/26/17 15:45> Subjective - Date & Time of Evaluation Date of Evaluation: 06/26/17 Time of Evaluation: 07:00 - Subjective Subjective: PGY1 medicine Note for Dr. Barrera Patient seen and examined at bedside this morning. Patient is awake and eating breakfast. He states he does not have any pain unless he sits directly on the abscess. He has states he does not have any other complaints at this time. Objective - Vital Signs/Intake and Output Vital Signs (last 24 hours): Temp Pulse Resp BP Pulse Ox 97.8 F 60 20 121/65 97 06/26/17 15:00 06/26/17 15:00 06/26/17 15:00 06/26/17 15:00 06/26/17 15:00 Intake and Output: 06/26/17 06/26/17 06:59 18:59 Intake Total 760 Output Total 300 Balance 460 - Medications Medications: Current Medications Acetaminophen (Tylenol 325mg Tab) 650 mg PO Q6 PRN PRN Reason: Pain, Mild (1-3) Last Admin: 06/25/17 11:30 Dose: 650 mg Amlodipine Besylate (Norvasc) 10 mg PO DAILY [facility] Last Admin: 06/26/17 10:41 Dose: 10 mg Ascorbic Acid (Vitamin C 250 Mg Tab) 250 mg PO DAILY [facility] Last Admin: 06/26/17 10:41 Dose: 250 mg Ferrous Sulfate (Feosol) 325 mg PO Q12H [facility] Last Admin: 06/26/17 10:45 Dose: 325 mg Heparin Sodium (Porcine) (Heparin) 5,000 units SC Q12 [facility] Last Admin: 06/26/17 10:41 Dose: 5,000 units Insulin Glargine (Lantus) 10 unit SC HS [facility] Last Admin: 06/25/17 22:17 Dose: 10 units Insulin Human Regular (Novolin R) 0 unit SC ACHS [facility] PRN Reason: Protocol Last Admin: 06/26/17 12:30 Dose: 2 unit Levothyroxine Sodium (Synthroid) 50 mcg PO DAILY@0630 [facility] Last Admin: 06/26/17 05:43 Dose: 50 mcg Linezolid (Zyvox) 600 mg PO Q12H [facility] Last Admin: 06/26/17 08:18 Dose: 600 mg Metoprolol Succinate (Toprol Xl) 100 mg PO DAILY [facility] Last Admin: 06/26/17 10:41 Dose: 100 mg Pantoprazole Sodium (Protonix Ec Tab) 40 mg PO DAILY [facility] Last Admin: 06/26/17 10:41 Dose: 40 mg Pneumococcal Polyvalent Vaccine (Pneumovax 23 Vaccine) 0.5 ml IM .ONCE ONE Stop: 06/27/17 10:01 Tolterodine Tartrate (Detrol La) 4 mg PO DAILY [facility] Last Admin: 06/26/17 10:41 Dose: 4 mg - Labs Labs: 06/26/17 10:13 06/26/17 08:39 - Constitutional Appears: Non-toxic, No Acute Distress - Head Exam Head Exam: ATRAUMATIC, NORMOCEPHALIC - Eye Exam Eye Exam: EOMI, Normal appearance. absent: Scleral icterus - ENT Exam ENT Exam: Mucous Membranes Moist - Neck Exam Neck Exam: Full ROM - Respiratory Exam Respiratory Exam: Clear to Ausculation Bilateral, NORMAL BREATHING PATTERN. absent: Accessory Muscle Use, Rales, Respiratory Distress - Cardiovascular Exam Cardiovascular Exam: REGULAR RHYTHM, +S1 - GI/Abdominal Exam GI & Abdominal Exam: Soft, Normal Bowel Sounds. absent: Distended, Firm, Guarding, Rigid, Tenderness - Extremities Exam Extremities Exam: Normal Inspection. absent: Calf Tenderness, Pedal Edema - Neurological Exam Neurological Exam: Alert, Awake - Psychiatric Exam Psychiatric exam: Flat Affect, Normal Mood - Skin Skin Exam: Dry, Normal Color, Warm Assessment and Plan - Assessment and Plan (Free Text) Plan: Abscess WBC 8.[address] Langford for abx management Surgery Dr. Barrow consulted - performed bedside I&D this afternoon. Iodiform packing. Unable to obtain IV access. Zyvox 600mg PO Q12H IR access request. Wound care. blood cultures have no growth at 24 hours wound culture grew Staph Aureus - awaiting sensitivities. Patient is to stay inpatient until sensitivities are returned due to Zyvox and Vanco not on patient 's formulary and would not be able to afford medications if MRSA. Patient can be discharged once sensitivities are returned and correct oral abx coverage can be determined. There is no need for emergent IV access at this time. Hx of CVA Plavix and ASA on hold. Hx of HTN Continue Toprol XL 100mg PO daily and Norvasc 10mg PO daily. Hx of hypothyroidism Continue Synthroid 50mcg PO daily. Hx of incontinence Continue Toviaz 8mg PO daily. Hx of anemia Continue Feosol 325mg PO daily. Prophylactic measure SCD Protonix Heparin SQ Case discussed with Dr. Holly Crane PGY1 <Kyle Barrera - Last Filed: 06/26/17 19:21> Objective - Vital Signs/Intake and Output Vital Signs (last 24 hours): Temp Pulse Resp BP Pulse Ox 97.8 F 60 20 121/65 97 06/26/17 15:00 06/26/17 15:00 06/26/17 15:00 06/26/17 15:00 06/26/17 15:00 Intake and Output: 06/26/17 06/27/17 18:59 06:59 Intake Total 500 Output Total 900 Balance -400 - Medications Medications: Current Medications Acetaminophen (Tylenol 325mg Tab) 650 mg PO Q6 PRN PRN Reason: Pain, Mild (1-3) Last Admin: 06/26/17 16:15 Dose: 650 mg Amlodipine Besylate (Norvasc) 10 mg PO DAILY [facility] Last Admin: 06/26/17 10:41 Dose: 10 mg Ascorbic Acid (Vitamin C 250 Mg Tab) 250 mg PO DAILY [facility] Last Admin: 06/26/17 10:41 Dose: 250 mg Ferrous Sulfate (Feosol) 325 mg PO Q12H [facility] Last Admin: 06/26/17 10:45 Dose: 325 mg Glipizide (Glucotrol) 2.5 mg PO ACB [facility] Heparin Sodium (Porcine) (Heparin) 5,000 units SC Q12 [facility] Last Admin: 06/26/17 10:41 Dose: 5,000 units Insulin Glargine (Lantus) 10 unit SC HS [facility] Last Admin: 06/25/17 22:17 Dose: 10 units Insulin Human Regular (Novolin R) 0 unit SC ACHS [facility] PRN Reason: Protocol Last Admin: 06/26/17 17:42 Dose: 2 unit Levothyroxine Sodium (Synthroid) 50 mcg PO DAILY@0630 [facility] Last Admin: 06/26/17 05:43 Dose: 50 mcg Linezolid (Zyvox) 600 mg PO Q12H [facility] Last Admin: 06/26/17 08:18 Dose: 600 mg Metoprolol Succinate (Toprol Xl) 100 mg PO DAILY [facility] Last Admin: 06/26/17 10:41 Dose: 100 mg Pantoprazole Sodium (Protonix Ec Tab) 40 mg PO DAILY [facility] Last Admin: 06/26/17 10:41 Dose: 40 mg Pneumococcal Polyvalent Vaccine (Pneumovax 23 Vaccine) 0.5 ml IM .ONCE ONE Stop: 06/27/17 10:01 Tolterodine Tartrate (Detrol La) 4 mg PO DAILY [facility] Last Admin: 06/26/17 10:41 Dose: 4 mg - Labs Labs: 06/26/17 10:13 06/26/17 08:39 Attending/Attestation - Attestation I have personally seen and examined this patient.: Yes I have fully participated in the care of the patient.: Yes I have reviewed all pertinent clinical information, including history, physical exam and plan: Yes Notes (Text): 06/26/17 19:06 Patient was seen and examined.Patient is on Zyvox for his gluteal abscess.Denies pain.May resume back 1.Gluteal abscess Dr Langford consulted for abx management Surgery Dr. Barrow consulted - performed bedside I&D this afternoon. Iodiform packing. Unable to obtain IV access. Zyvox 600mg PO Q12H blood cultures have no growth at 24 hours wound culture grew Staph Aureus - awaiting sensitivities. Patient can be discharged once sensitivities are returned and correct oral abx coverage can be determined. There is no need for emergent IV access at this time. CVA-Plavix and asprin held for surgery HTN-On toprol and norvasc Hypothyroidism-synthroid CRF-acute on chroni -on oral hydration follow creatinine in the morning DM-h/o DM,hyperglycemia and elevated [id number] on lantus and add glipizide d/w SW about diabetic education and home care service .pt 's sugar can be followed at day care on week days Prophylactic measure SCD Protonix Heparin SQ
[2017-06-26] MEDS: (Lantus) Insulin Glargine, Recombinant SC SCH (21:33)
[2017-06-27] MEDS: Levothyroxine 50 MCG TAB PO SCH (05:43)
[2017-06-27] MEDS ORDERED: GlipiZIDE 2.5 mg Tab PO SCH (07:30)
--- NOTE | 2017-06-27 07:33 | CP.PCM.PN ---
Objective - Vital Signs/Intake and Output Vital Signs (last 24 hours): Temp Pulse Resp BP Pulse Ox 97.4 F L 60 20 113/73 96 06/27/17 00:00 06/27/17 00:00 06/27/17 00:00 06/27/17 00:00 06/27/17 00:00 Intake and Output: 06/27/17 06/27/17 06:59 18:59 Intake Total 450 Output Total 500 Balance -50 - Medications Medications: Current Medications Acetaminophen (Tylenol 325mg Tab) 650 mg PO Q6 PRN PRN Reason: Pain, Mild (1-3) Last Admin: 06/26/17 16:15 Dose: 650 mg Amlodipine Besylate (Norvasc) 10 mg PO DAILY [facility] Last Admin: 06/26/17 10:41 Dose: 10 mg Ascorbic Acid (Vitamin C 250 Mg Tab) 250 mg PO DAILY [facility] Last Admin: 06/26/17 10:41 Dose: 250 mg Aspirin (Aspirin Chewable) 81 mg PO DAILY [facility] Clopidogrel Bisulfate (Plavix) 75 mg PO DAILY [facility] Ferrous Sulfate (Feosol) 325 mg PO Q12H [facility] Last Admin: 06/26/17 21:28 Dose: 325 mg Glipizide (Glucotrol) 2.5 mg PO ACB [facility] Heparin Sodium (Porcine) (Heparin) 5,000 units SC Q12 [facility] Last Admin: 06/26/17 21:12 Dose: 5,000 units Insulin Human Regular (Novolin R) 0 unit SC ACHS [facility] PRN Reason: Protocol Last Admin: 06/26/17 21:38 Dose: Not Given Levothyroxine Sodium (Synthroid) 50 mcg PO DAILY@0630 [facility] Last Admin: 06/27/17 05:43 Dose: 50 mcg Linezolid (Zyvox) 600 mg PO Q12H [facility] Last Admin: 06/26/17 19:58 Dose: 600 mg Metoprolol Succinate (Toprol Xl) 100 mg PO DAILY [facility] Last Admin: 06/26/17 10:41 Dose: 100 mg Pantoprazole Sodium (Protonix Ec Tab) 40 mg PO DAILY [facility] Last Admin: 06/26/17 10:41 Dose: 40 mg Pneumococcal Polyvalent Vaccine (Pneumovax 23 Vaccine) 0.5 ml IM .ONCE ONE Stop: 06/27/17 10:01 Tolterodine Tartrate (Detrol La) 4 mg PO DAILY [facility] Last Admin: 06/26/17 10:41 Dose: 4 mg - Labs Labs: 06/26/17 10:13 06/26/17 08:39
--- NOTE | 2017-06-27 08:36 | CP.PCM.PCO ---
Physician Communication Note - Physician Communication Note Physician Communication Note: pack removal later today. no further surg intervention
[2017-06-27] MEDS: (Novolin R) Insulin Human Regular 100 units/ml vial SC SCH ×2 (08:56→12:42)
[2017-06-27] MEDS: Metoprolol Succinate 100 mg XL Tab PO SCH (09:06)
[2017-06-27] MEDS: Tolterodine 4 mg ER Cap PO SCH (09:06)
[2017-06-27] MEDS: Pantoprazole 40 mg EC Tab PO SCH (09:06)
[2017-06-27] MEDS ORDERED: Influenza Vaccine 60 mcg/0.5 mL SYR (4YR UP) IM ONE (10:00)
[2017-06-27] MEDS ORDERED: Pneumococcal 23-Valent Vaccine IM ONE (10:00)
[2017-06-27 11:30] LABS: POTASSIUM 4.1 mmol/L (3.6-5.2)
[2017-06-27 11:32] LABS: BILIRUBIN,TOTAL 0.4 mg/dL (0.2-1.3); TOTAL PROTEIN 7.6 g/dL (6.3-8.3)
[2017-06-27 11:33] LABS: CALCIUM 9.3 mg/dl (8.6-10.4)
--- NOTE | 2017-06-27 11:44 | CP.PCM.DIS ---
<Rogelio Bynum - Last Filed: 06/27/17 12:07> Provider - Provider Date of Admission: 06/24/17 18:12 Attending physician: Kyle Barrera MD Consults: Dr. Barrow-general surgery Dr. Langford- infectious diseases Time Spent in preparation of Discharge (in minutes): 40 Diagnosis - Discharge Diagnosis (1) Gluteal abscess Status: Acute (2) History of hypertension Status: Chronic (3) History of hypothyroidism Status: Chronic (4) History of urinary incontinence Status: Chronic (5) Diabetes Status: Chronic (6) History of anemia Status: Chronic (7) Prophylactic measure Status: Acute Hospital Course - Lab Results Lab Results: Micro Results 06/25/17 08:30 Buttock Gram Stain - Final 06/25/17 08:30 Buttock Wound Culture - Preliminary Staphylococcus Aureus 06/24/17 Unknown Abscess - Buttock-Left Gram Stain - Final 06/24/17 Unknown Abscess - Buttock-Left Wound Culture - Final Methicillin Resistant S Aureus 06/24/17 14:40 Blood Blood Culture - Preliminary NO GROWTH AFTER 48 HOURS 06/24/17 15:00 Blood Blood Culture - Preliminary NO GROWTH AFTER 48 HOURS Most Recent Lab Values WBC 8.7 K/uL (4.8-10.8) 06/26/17 10:13 RBC 4.03 Mil/uL (4.40-5.90) L 06/26/17 10:13 Hgb 11.3 g/dL (12.0-18.0) L 06/26/17 10:13 Hct 33.9 % (35.0-51.0) L 06/26/17 10:13 MCV 84.3 fL (80.0-94.0) D 06/26/17 10:13 MCH 28.1 pg (27.0-31.0) 06/26/17 10:13 MCHC 33.3 g/dL (33.0-37.0) 06/26/17 10:13 RDW 13.9 % (11.5-14.5) 06/26/17 10:13 Plt Count 270 K/uL (130-400) 06/26/17 10:13 MPV 9.0 fL (7.2-11.7) 06/26/17 10:13 Neut % (Auto) 61.6 % (50.0-75.0) 06/26/17 10:13 Lymph % (Auto) 23.6 % (20.0-40.0) 06/26/17 10:13 [place] % (Auto) 9.1 % (0.0-10.0) 06/26/17 10:13 Eos % (Auto) 4.5 % (0.0-4.0) H 06/26/17 10:13 Baso % (Auto) 1.2 % (0.0-2.0) 06/26/17 10:13 Neut # 5.3 K/uL (1.8-7.0) 06/26/17 10:13 Lymph # 2.0 K/uL (1.0-4.3) 06/26/17 10:13 [place] # 0.8 K/uL (0.0-0.8) 06/26/17 10:13 Eos # 0.4 K/uL (0.0-0.7) 06/26/17 10:13 Baso # 0.1 K/uL (0.0-0.2) 06/26/17 10:13 Sodium 135 mmol/L (132-148) 06/26/17 08:39 Potassium 4.3 mmol/L (3.6-5.2) 06/26/17 08:39 Chloride 106 mmol/L (98-107) 06/26/17 08:39 Carbon Dioxide 17 mmol/L (22-30) L 06/26/17 08:39 Anion Gap 16 (10-20) 06/26/17 08:39 BUN 29 mg/dL (9-20) H 06/26/17 08:39 Creatinine 1.7 mg/dL (0.8-1.5) H 06/26/17 08:39 Est GFR ( Amer) 47 06/26/17 08:39 Est GFR (Non-Af Amer) 39 06/26/17 08:39 POC Glucose (mg/dL) 296 mg/dL (65-110) H 06/27/17 11:19 Random Glucose 179 mg/dL (75-110) H 06/26/17 08:39 Hemoglobin A1c 8.3 % (4.2-6.5) H 06/26/17 10:13 Calcium 9.3 mg/dl (8.6-10.4) 06/26/17 08:39 Total Bilirubin 0.4 mg/dL (0.2-1.3) 06/26/17 08:39 AST 16 U/L (17-59) L 06/26/17 08:39 ALT 18 U/L (21-72) L 06/26/17 08:39 Alkaline Phosphatase 90 U/L (38-126) 06/26/17 08:39 Total Protein 7.8 g/dL (6.3-8.3) 06/26/17 08:39 Albumin 3.8 g/dL (3.5-5.0) 06/26/17 08:39 Globulin 4.0 gm/dL (2.2-3.9) H 06/26/17 08:39 Albumin/Globulin Ratio 1.0 (1.0-2.1) 06/26/17 08:39 - Hospital Course Hospital Course: On admission: "81F PMHx HTN, CVA HLD and dementia was sent from day care for evaluation of a wound on left buttock for the past 3 weeks. at bedside helping with history as pt only oriented to person. Pt complains of pain when sitting, as well as yellow drainage and blood coming out from the wound. Per , no work up has been initiated at day care for the wound. Pt also complains of intermittent mid sternal chest discomfort for past 3 weeks but currently he has no complaints. Pt denied having fever, chills, SOB, palpitations, abdominal pain , constipation, diarrhea." Hospital course: Patient admitted for gluteal abscess. General surgery Dr. Barrow and infectious disease Dr. Langford consulted. Staff unable to obtain IV access so patient was started empirically on oral Zyvox. On 06/26/17, patient underwent bedside incision and drainage which was tolerated well. Surgical team removed packing on day of discharge. Patient discharged on Glipizide for better management of his diabetes. Wound cultures grew MRSA. Sensitivity reviewed by infectious disease specialist. Dr. Langford recommends Bactrim DS 1 tab twice daily for 7 days. Surgical team recommendations for wound care are as follows: * Irrigate with half saline and half peroxide * Daily morning dressing changes with additional changes during the day if necessary * 4x4 gauze covered with [place] dressing or medipore tape * Warm compresses three times a day for 20 minutes at a time. Patient stable for discharge per primary, surgical, and infectious disease standpoints. This is a summary of the hospital records. For more information, refer to the medical records. Discharge Exam - Head Exam Head Exam: ATRAUMATIC, NORMOCEPHALIC - Eye Exam Eye Exam: EOMI, PERRL - ENT Exam ENT Exam: Mucous Membranes Moist - Respiratory Exam Respiratory Exam: Clear to PA & Lateral, NORMAL BREATHING PATTERN. absent: Rales, Rhonchi, Wheezes - Cardiovascular Exam Cardiovascular Exam: REGULAR RHYTHM, +S1, +S2 - GI/Abdominal Exam GI & Abdominal Exam: Normal Bowel Sounds, Soft. absent: Distended, Tenderness - Extremities Exam Extremities exam: pedal pulses present - Neurological Exam Neurological exam: Alert - Psychiatric Exam Psychiatric exam: Normal Mood - Skin Skin Exam: Dry, Warm Discharge Plan - Discharge Medications Prescriptions: GlipiZIDE [Glucotrol] 2.5 mg PO ACB 30 Days #30 tab Sulfamethoxazole/Trimethoprim [Bactrim DS 800 mg-160 mg] 1 tab PO BID 7 Days # 14 tab - Follow Up Plan Condition: STABLE Disposition: HOME/ ROUTINE Instructions: Sulfamethoxazole/Trimethoprim (By mouth), Glipizide (By mouth), Abscess (GEN) Additional Instructions: Please follow up with your primary doctor within 3 days. Take the antibiotic Bactrim DS. Take 1 tablet by mouth twice a day for 7 days. Take Glipizide 2.5 mg by mouth once a day before your breakfast. If there are any new or worsening symptoms, please return to the emergency room. Here are the recommendations for your wound care from the surgical team: Irrigate with half saline and half peroxide Daily morning dressing changes with additional changes during the day if necessary 4x4 gauze covered with [place] dressing or medipore tape Warm compresses three times a day for 20 minutes at a time. Por favor, hable con feldman mdico de cabecera dentro de los 3 [facility]. [facility] el antibitico Bactrim DS. [facility] 1 tableta por va oral dos veces al da bruno 7 woody. [facility] Glipizide 2.5 mg por va oral noris vez al da antes del desayuno. Si hay sntomas nuevos o que empeoran, por favor regrese a la jennifer de emergencias. Aqu estn las recomendaciones para el cuidado de heridas del equipo quirrgico: Irrigar con media solucin salina y medio perxido Los cambios diarios de vestirse por la maana con cambios adicionales bruno el da si es necesario Gasa 4x4 cubierta con aderezo de mars o cinta de medipore Compresas tibias nathan veces al da bruno 20 minutos a la vez. Referrals: Cornelia Sullivan MD [Staff Provider] - <Kyle Barrera - Last Filed: 06/28/17 12:10> Provider - Provider Date of Admission: 06/24/17 18:12 Attending physician: Kyle Barrera MD Hospital Course - Lab Results Lab Results: Micro Results 06/25/17 08:30 Buttock Gram Stain - Final 06/25/17 08:30 Buttock Wound Culture - Preliminary Methicillin Resistant S Aureus 06/24/17 14:40 Blood Blood Culture - Preliminary NO GROWTH AFTER 3 DAYS 06/24/17 15:00 Blood Blood Culture - Preliminary NO GROWTH AFTER 3 DAYS 06/24/17 Unknown Abscess - Buttock-Left Gram Stain - Final 06/24/17 Unknown Abscess - Buttock-Left Wound Culture - Final Methicillin Resistant S Aureus Most Recent Lab Values WBC 8.7 K/uL (4.8-10.8) 06/26/17 10:13 RBC 4.03 Mil/uL (4.40-5.90) L 06/26/17 10:13 Hgb 11.3 g/dL (12.0-18.0) L 06/26/17 10:13 Hct 33.9 % (35.0-51.0) L 06/26/17 10:13 MCV 84.3 fL (80.0-94.0) D 06/26/17 10:13 MCH 28.1 pg (27.0-31.0) 06/26/17 10:13 MCHC 33.3 g/dL (33.0-37.0) 06/26/17 10:13 RDW 13.9 % (11.5-14.5) 06/26/17 10:13 Plt Count 270 K/uL (130-400) 06/26/17 10:13 MPV 9.0 fL (7.2-11.7) 06/26/17 10:13 Neut % (Auto) 61.6 % (50.0-75.0) 06/26/17 10:13 Lymph % (Auto) 23.6 % (20.0-40.0) 06/26/17 10:13 [place] % (Auto) 9.1 % (0.0-10.0) 06/26/17 10:13 Eos % (Auto) 4.5 % (0.0-4.0) H 06/26/17 10:13 Baso % (Auto) 1.2 % (0.0-2.0) 06/26/17 10:13 Neut # 5.3 K/uL (1.8-7.0) 06/26/17 10:13 Lymph # 2.0 K/uL (1.0-4.3) 06/26/17 10:13 [place] # 0.8 K/uL (0.0-0.8) 06/26/17 10:13 Eos # 0.4 K/uL (0.0-0.7) 06/26/17 10:13 Baso # 0.1 K/uL (0.0-0.2) 06/26/17 10:13 Sodium 135 mmol/L (132-148) 06/27/17 11:13 Potassium 4.1 mmol/L (3.6-5.2) 06/27/17 11:13 Chloride 104 mmol/L (98-107) 06/27/17 11:13 Carbon Dioxide 21 mmol/L (22-30) L 06/27/17 11:13 Anion Gap 14 (10-20) 06/27/17 11:13 BUN 30 mg/dL (9-20) H 06/27/17 11:13 Creatinine 1.7 mg/dL (0.8-1.5) H 06/27/17 11:13 Est GFR ( Amer) 47 06/27/17 11:13 Est GFR (Non-Af Amer) 39 06/27/17 11:13 POC Glucose (mg/dL) 166 mg/dL (65-110) H 06/27/17 16:30 Random Glucose 269 mg/dL (75-110) H 06/27/17 11:13 Hemoglobin A1c 8.3 % (4.2-6.5) H 06/26/17 10:13 Calcium 9.3 mg/dl (8.6-10.4) 06/27/17 11:13 Total Bilirubin 0.4 mg/dL (0.2-1.3) 06/27/17 11:13 AST 14 U/L (17-59) L 06/27/17 11:13 ALT 18 U/L (21-72) L 06/27/17 11:13 Alkaline Phosphatase 92 U/L (38-126) 06/27/17 11:13 Total Protein 7.6 g/dL (6.3-8.3) 06/27/17 11:13 Albumin 3.8 g/dL (3.5-5.0) 06/27/17 11:13 Globulin 3.9 gm/dL (2.2-3.9) 06/27/17 11:13 Albumin/Globulin Ratio 1.0 (1.0-2.1) 06/27/17 11:13
[2017-06-27 16:48] VITALS: BP 115/66; PULSE 58; TEMP 97.2; O2SAT 95
== END 2017-06-27 17:20 | disposition home or self-care (01) | DRG 603 ==
LOC: C.ER 14:14 → C.9E 15:42 → C.3T 18:05 → OBSVTOIN 18:12
PROVIDERS: ADMIT Internal Medicine; ATTEND Internal Medicine
PROC: 0H98XZZ Drainage of Buttock Skin, External Approach (ICD-10-PCS; principal; 2017-06-26)
DX: L02.31 Cutaneous abscess of buttock (principal); N17.9 Acute kidney failure, unspecified; E11.65 Type 2 diabetes mellitus with hyperglycemia; G30.9 Alzheimer's disease, unspecified; L03.90 Cellulitis, unspecified; F02.80 Dementia in other diseases classified elsewhere, unspecified severity, without behavioral disturbance, psychotic disturbance, mood disturbance, and anxiety; E78.5 Hyperlipidemia, unspecified; E03.9 Hypothyroidism, unspecified; Z79.4 Long term (current) use of insulin; I12.9 Hypertensive chronic kidney disease with stage 1 through stage 4 chronic kidney disease, or unspecified chronic kidney disease; N18.3 Chronic kidney disease, stage 3 (moderate)

== ENCOUNTER 2017-07-13 09:39 | Inpatient (IN) | payer MEDICARE, OTHER ==
[2017-07-13] MEDS ORDERED: Iohexol 240 (50 ml) ONE (14:38)
[2017-07-13] MEDS ORDERED: Indomethacin 50 MG Suppository PR ONE (14:41)
[2017-07-13] MEDS ORDERED: Rocuronium 10 mg/ml (5 ml) ONE (14:47)
[2017-07-13] MEDS ORDERED: Propofol 10 mg/ml Inj (20 ML) ONE (14:47)
[2017-07-13] MEDS ORDERED: Midazolam 2 MG/2 ML VIAL ONE ×2 (14:47→15:10)
[2017-07-13] MEDS ORDERED: ceFAZolin IV 1 gm in Dextrose 0 GM/0 ML BAG IVPB ONE (15:11)
[2017-07-13] MEDS ORDERED: cefTRIAXone IV 1 gm in Dextros 50 ML IVPB ONE (15:16)
[2017-07-13] MEDS ORDERED: Acetaminophen IV 1,000 MG in Premixed IV 1 EA IV PRN (16:34)
[2017-07-13] MEDS ORDERED: Alum-Mag Hydrox-Simethicone Susp (30 mL) PO ONE (18:13)
[2017-07-13] MEDS ORDERED: Simethicone 80 mg Chewtab PO ONE (18:15)
--- NOTE | 2017-07-13 18:40 | PCM.RRT ---
CONSULTING TECHNICAL DIRECTOR Nurses Assessment - Situation Date: 07/13/17 Time CONSULTING TECHNICAL DIRECTOR was called: 17:54 I.Reason for CONSULTING TECHNICAL DIRECTOR - A) Acute Change in Patient: (Select all that apply): Chest Pain Subjective: 82 year old male with PMHX of DM, HTN, CVA, CAD s/p ERCP with removal of stent and sphincterotomy with Dr. Damian this afternoon. Rapid response was called worsening chest and abdominal pain. Chest pain was pressure like and " all over chest". Abdominal pain is diffuse and he feels his abdomen is distended. Patient was also complaining of dizziness and headache. Admits to nausea, but no vomiting. Admits to right arm pain which is chronic. Patient also complaining of left arm numbness, which is new. No other complaints. - Neurological Status (Select all that apply): Alert, Responsive, Oriented, Verbal - Respiratory Oxygen Delivery Method: Room Air - Constitutional Appears: Well, No Acute Distress - Head Head Exam: NORMAL INSPECTION, NORMOCEPHALIC - Eyes Eye Exam: EOMI, Normal appearance - Respiratory Exam Respiratory Exam: Clear to Ausculation Bilateral, NORMAL BREATHING PATTERN - Cardiovascular Exam Cardiovascular Exam: REGULAR RHYTHM, +S1, +S2 - GI/Abdominal Exam GI & Abdominal Exam: Distended, Guarding, Tenderness - Neurological Exam Neurological Exam: Alert, Awake, Oriented x3 - Extremities Exam Extremities Exam: Full ROM, Normal Inspection Plan - Assessment of Findings&Treatment Plan 82 year old male with PMHX of DM, HTN, CVA, CAD s/p ERCP with atypical chest pain. Patient was ordered for CBC, CMP, CORDELL, EKG, CXR, CHEST CT. Patient was also ordered for head CT since he was complaining of dizziness and headache. Patient will be observed in Tele under to hospitalist service. GI consult placed. Cardio consult placed.
--- NOTE | 2017-07-13 18:41 | CP.PCM.HP ---
History of Present Illness - History of Present Illness History of Present Illness: CC: "chest pain" 82 year old male with PMHX of DM, HTN, CVA, Hypothyroidism, Dementia, gallstones s/p ERCP with removal of stent and sphincterotomy with Dr. Damian this afternoon. Rapid response was called worsening chest and abdominal pain. Chest pain was pressure like and located "all over chest". Patient had a cardiac cath in 2012, but as per cardio, it is unknown if he has CAD. Abdominal pain is diffuse and he feels his abdomen is distended. Patient was also complaining of dizziness and headache. Admits to nausea, but no vomiting. Admits to right arm pain which is chronic. Patient also complaining of left arm numbness, which is new. No other complaints. Patient also has gluteal abscess for which he is on antibiotics (Cipro and Bactrim). PMHX of DM, HTN, CVA, GERD, gluteal abscess (MRSA) on 06/27/17, Klebsiella Sepsis, Vertigo, Dementia, Hypothyroidism, gallstones s/p ERCP. Medications: Glipizine 2.5 mg PO ACB, Tradjenta 5 mg PO daily, Amlodipine 10 mg PO daily, Metoprolol XL 100 mg PO daily, Valsartan 320 mg PO daily, Lopid 600 mg PO BID, Lipitor 80 mg PO HS, ASA 81 mg PO daily, Plavix 75 mg PO daily, Cipro 250 mg PO Q12H, Bactrim 800/160 mg PO BID, Ferrous Sulfate 325 mg PO Q12H , Levothyroxine 50 mcg PO daily, Aricept 10 mg PO daily, Antivert 12.5 mg PO TID , Toviaz 8 mg ER PO daily, Protonix 40 mg PO daily, Ascorbic Acid 250 mg PO daily, CyporoHeptadine 4 mg PO BID, Baclofen 10 mg PO BID. Surgery Hx: Cholecystectomy, Cardiac cath 2012, L carotid surgery, ERCP, right hand surgery, non-emergent aortic dissection in 2014, but patient has no sternal scar. Family Hx: none reported Allergies: NKDA Social Hx: none smoker. Denies alco PMD: Dr. Sullivan Present on Admission - Present on Admission Any Indicators Present on Admission: No Review of Systems - Constitutional Constitutional: absent: Chills, Fatigue, Fever - EENT Eyes: absent: Blurred Vision, Change in Vision Ears: Dizziness - Cardiovascular Cardiovascular: Chest Pain, Dyspnea, Pain Radiating to Arm/Neck/Jaw, Lightheadedness. absent: Edema, Palpitations - Respiratory Respiratory: absent: Cough, Dyspnea - Gastrointestinal Gastrointestinal: Abdominal Pain, Belching, Bloating. absent: Constipation, Diarrhea, Nausea, Vomiting - Genitourinary Genitourinary: absent: Difficulty Urinating, Dysuria - Musculoskeletal Musculoskeletal: Numbness, Tingling. absent: Arthralgias, Back Pain - Integumentary Integumentary: Wounds - Neurological Neurological: Dizziness, Numbness, Headaches, Tingling. absent: Syncope, Weakness - Endocrine Endocrine: absent: Fatigue, Palpitations - Hematologic/Lymphatic Hematologic: absent: Easy Bleeding Past Patient History - Infectious Disease Hx of Infectious Diseases: None - Tetanus Immunizations Tetanus Immunization: Unknown - Past Medical History & Family History Past Medical History?: Yes - Past Social History Smoking Status: Never Smoked - CARDIAC Hx Cardiac Disorders: Yes Hx Hypercholesterolemia: Yes Hx Hypertension: Yes - PULMONARY Hx Respiratory Disorders: Yes Hx Pneumonia: Yes (KLEBSIELLA PNEUMONIAE) - NEUROLOGICAL Hx Neurological Disorder: Yes HX Cerebrovascular Accident: Yes Hx Dementia: Yes Other/Comment: MEMORY DEFICIT - HEENT Hx HEENT Problems: Yes Hx Cataracts: Yes (SURGERY) - RENAL Hx Chronic Kidney Disease: No - ENDOCRINE/METABOLIC Hx Endocrine Disorders: Yes Hx Diabetes Mellitus Type 2: Yes - HEMATOLOGICAL/ONCOLOGICAL Hx Blood Disorders: No Hx Blood Transfusions: No - INTEGUMENTARY Hx Dermatological Problems: No - MUSCULOSKELETAL/RHEUMATOLOGICAL Hx Musculoskeletal Disorders: Yes Hx Arthritis: Yes (BACK, BL KNEE) Hx Back Pain: Yes Hx Falls: No Other/Comment: RIGHT HAND WEAK GRASP RESIDUAL FROM STROKE - GASTROINTESTINAL Hx Gastrointestinal Disorders: Yes (''STOMACH BACTERIA'') Hx Ulcer: Yes Other/Comment: CHOLEDOCHOLITHIASIS, CHOLANGITIS - GENITOURINARY/GYNECOLOGICAL Hx Genitourinary Disorders: No Hx Incontinence: Yes - PSYCHIATRIC Hx Psychophysiologic Disorder: No Hx Substance Use: No - SURGICAL HISTORY Hx Surgeries: Yes Hx Cataract Extraction: Yes Other/Comment: LEFT BEHIND EAR SURGERY FROM BLOOD CLOTS ,RIGHT HAND SURGERY - ANESTHESIA Hx Anesthesia: Yes Hx Anesthesia Reactions: No Hx Malignant Hyperthermia: No Meds Allergies/Adverse Reactions: Allergies Allergy/AdvReac Type Severity Reaction Status Date / Time No Known Allergies Allergy Verified 07/13/17 10:45 Physical Exam - Constitutional Appears: No Acute Distress - Head Exam Head Exam: NORMAL INSPECTION, NORMOCEPHALIC - Eye Exam Eye Exam: EOMI, Normal appearance - ENT Exam ENT Exam: Mucous Membranes Moist - Neck Exam Neck exam: Positive for: Full Rom, Normal Inspection - Respiratory Exam Respiratory Exam: Clear to Auscultation Bilateral, NORMAL BREATHING PATTERN. absent: Decreased Breath Sounds, Rhonchi, Wheezes - Cardiovascular Exam Cardiovascular Exam: REGULAR RHYTHM, +S1, +S2 - GI/Abdominal Exam GI & Abdominal Exam: Distended, Normal Bowel Sounds, Tenderness. absent: Rigid - Extremities Exam Extremities exam: Positive for: full ROM, normal inspection - Back Exam Back exam: NORMAL INSPECTION - Neurological Exam Neurological exam: Alert, Normal Gait, Oriented x3 - Psychiatric Exam Psychiatric exam: Normal Affect, Normal Mood - Skin Skin Exam: Dry, Normal Color, Warm Results - Vital Signs Recent Vital Signs: Last Vital Signs Temp 98 F 07/13/17 17:21 Pulse 71 07/13/17 17:21 Resp 12 07/13/17 17:21 BP 176/81 H 07/13/17 17:21 Pulse Ox 100 07/13/17 17:21 - Labs Labs: Laboratory Results - last 24 hr 07/13/17 07/13/17 11:11 18:30 POC Glucose (mg/dL) 112 H 178 H Assessment & Plan (1) Chest pain Assessment and Plan: Patient with atypical chest pain. Cardio consult placed- Dr. Chau- help appreciated F/u CORDELL Q6H F/u EKG Q6H F/u CXR F/u Chest CT since patient is s/p ERCP F/u TSH, Free T4 F/u ECHO Status: Acute (2) Abdominal pain Assessment and Plan: s/p ERCP with removal of stent and sphincterotomy with Dr. Damian today. Dr. Damian consult placed- Help appreciated. Patient with abdominal distension. Likely gas from procedure. CXR does not show air under diaphragm. f/u Chest CT Status: Acute (3) Headache Assessment and Plan: F/u Head CT w/o contrast If negative, resume ASA, Plavix and start chemical DVT prophylaxis. Status: Acute (4) AD (Alzheimer's disease) Assessment and Plan: Reusme home Aricept 10 mg PO daily. Status: Acute (5) Choledocholithiasis Assessment and Plan: s/p ERCP with removal of stent and sphincterotomy with Dr. Damian today. Dr. Damian consult placed- Help appreciated. Status: Acute (6) Anemia Assessment and Plan: Resume Ferrous Sulfate 325 mg PO daily. f/u H/H Status: Acute (7) CKD (chronic kidney disease) stage 3, GFR 30-59 ml/min Assessment and Plan: GFR 39 and Cr 1.7 on 06/27/17. F/u CMP in the AM Status: Acute (8) Gluteal abscess Assessment and Plan: Continue Cipro 250 mg PO Q12H (Started as OP 06/27/17) Continue Bactrim 800/160 mg PO BID (Started as OP 06/27/17) Status: Acute (9) HLD (hyperlipidemia) Assessment and Plan: Start home meds: Lopid 600 mg PO BID Patient takes Lipitor 80 mg PO HS which is not on formulary. Will Start Crestor 10 mg PO HS (renal dosed). f/U FLP in the AM Status: Acute (10) HTN (hypertension) Assessment and Plan: Resume Home meds: Amlodipine 10 mg PO daily Metoprolol XL 100 mg PO daily Losartan 100 mg PO daily (Valsartan not on formulary) Status: Acute (11) Hx of stroke without residual deficits Assessment and Plan: F/u Head CT w/o contrast Patient takes Lipitor 80 mg PO HS. Will Start Crestor 10 mg PO HS (renal dosed). Hold ASA and Plavix pending head CT. Status: Acute (12) Diabetes Assessment and Plan: Patient is NPO. May resume consistent carb/heart healthy diet if chest CT clear. ISS Accuchecks ACHS Status: Chronic (13) History of hypothyroidism Assessment and Plan: Resume home med: Levothyroxine 50 mcg PO daily F/u TSH, Free T4 Status: Chronic (14) Overactive bladder Assessment and Plan: Patient's home Toviaz is not on formulary. Will monitor symptoms for now. Status: Acute (15) Hx of glaucoma Assessment and Plan: Patient's home med Travatan ggt not on formulary. Start Xalatan ggt in bilateral eyes. Status: Acute (16) Hx of gastroesophageal reflux (GERD) Assessment and Plan: Protonix 10 mg PO daily Status: Acute (17) Prophylactic measure Assessment and Plan: Protonix 10 mg PO daily SCDs Hold chemical anticoagulation for now pending head CT. Restart home meds: Ascorbic Acid 250 mg PO daily Status: Acute
[2017-07-13] MEDS ORDERED: Tmp-Smz 800 mg-160 mg DS Tab PO SCH (18:45)
--- NOTE | 2017-07-13 19:59 | CP.PCM.CON ---
History of Present Illness - History of Present Illness History of Present Illness: *2 dee old mad with gallstones, had ercp with sen, and had procedure today to remove the stent; pt had chest pain in recovery, rapid response was called. ECg shows nsr, no ischemia. Pt cannot give hisory, old chart reviewed as per Chet Christian notes. Pt had a cardiac cath in 2012, unknown if he has CAD. He takes plavix, reason unclear, and stopped 7 days prior to surger. Pt is a non smoker. Note mentions "non emergent aortic dissection" in 2014, but pt has no sternal scar. He has had MRSA infection, He is a diabetic. with HTN. IN hydralazine was given earlier today for HTN. Review of Systems - Review of Systems All systems: reviewed and no additional remarkable complaints except (as above.) Past Patient History - Infectious Disease Hx of Infectious Diseases: None - Tetanus Immunizations Tetanus Immunization: Unknown - Past Medical History & Family History Past Medical History?: Yes - Past Social History Smoking Status: Never Smoked - CARDIAC Hx Cardiac Disorders: Yes Hx Hypercholesterolemia: Yes Hx Hypertension: Yes - PULMONARY Hx Respiratory Disorders: Yes Hx Pneumonia: Yes (KLEBSIELLA PNEUMONIAE) - NEUROLOGICAL Hx Neurological Disorder: Yes HX Cerebrovascular Accident: Yes Hx Dementia: Yes Other/Comment: MEMORY DEFICIT - HEENT Hx HEENT Problems: Yes Hx Cataracts: Yes (SURGERY) - RENAL Hx Chronic Kidney Disease: No - ENDOCRINE/METABOLIC Hx Endocrine Disorders: Yes Hx Diabetes Mellitus Type 2: Yes - HEMATOLOGICAL/ONCOLOGICAL Hx Blood Disorders: No Hx Blood Transfusions: No - INTEGUMENTARY Hx Dermatological Problems: No - MUSCULOSKELETAL/RHEUMATOLOGICAL Hx Musculoskeletal Disorders: Yes Hx Arthritis: Yes (BACK, BL KNEE) Hx Back Pain: Yes Hx Falls: No Other/Comment: RIGHT HAND WEAK GRASP RESIDUAL FROM STROKE - GASTROINTESTINAL Hx Gastrointestinal Disorders: Yes (''STOMACH BACTERIA'') Hx Ulcer: Yes Other/Comment: CHOLEDOCHOLITHIASIS, CHOLANGITIS - GENITOURINARY/GYNECOLOGICAL Hx Genitourinary Disorders: No Hx Incontinence: Yes - PSYCHIATRIC Hx Psychophysiologic Disorder: No Hx Substance Use: No - SURGICAL HISTORY Hx Surgeries: Yes Hx Cataract Extraction: Yes Other/Comment: LEFT BEHIND EAR SURGERY FROM BLOOD CLOTS ,RIGHT HAND SURGERY - ANESTHESIA Hx Anesthesia: Yes Hx Anesthesia Reactions: No Hx Malignant Hyperthermia: No Meds Allergies/Adverse Reactions: Allergies Allergy/AdvReac Type Severity Reaction Status Date / Time No Known Allergies Allergy Verified 07/13/17 10:45 - Medications Medications: Current Medications Amlodipine Besylate (Norvasc) 10 mg PO DAILY [facility] Ascorbic Acid (Vitamin C 250 Mg Tab) 250 mg PO DAILY [facility] Ciprofloxacin (Cipro) 250 mg PO Q12 [facility] Clopidogrel Bisulfate (Plavix) 75 mg PO DAILY [facility] Donepezil HCl (Aricept) 10 mg PO HS [facility] Ferrous Sulfate (Feosol) 325 mg PO Q12H [facility] Gemfibrozil (Lopid) 600 mg PO BID [facility] Home Med (Fesoterodine Fumarate [Toviaz]) 8 mg PO DAILY [facility] Ceftriaxone Sodium 1 gm/ (Dextrose) 100 mls @ 100 mls/hr IVPB Q24H [facility] Acetaminophen 1,000 mg/ (Miscellaneous) 100 mls @ 400 mls/hr IV Q6 PRN PRN Reason: Pain, moderate (4-7) Stop: 07/14/17 16:35 Last Admin: 07/13/17 17:40 Dose: 100 mls Levothyroxine Sodium (Synthroid) 50 mcg PO DAILY@0630 [facility] Losartan Potassium (Cozaar) 100 mg PO DAILY [facility] Meclizine HCl (Antivert) 12.5 mg PO TID [facility] Metoprolol Succinate (Toprol Xl) 100 mg PO DAILY [facility] Pantoprazole Sodium (Protonix Ec Tab) 40 mg PO DAILY [facility] Rosuvastatin Calcium (Crestor) 10 mg PO HS [facility] Saccharomyces Boulardii (Florastor) 250 mg PO BID [facility] Trimethoprim/Sulfamethoxazole (Bactrim Ds Tab) 1 tab PO BID [facility] Physical Exam - Constitutional Appears: Well - Head Exam Head Exam: ATRAUMATIC - Eye Exam Eye Exam: EOMI, Normal appearance - ENT Exam ENT Exam: Mucous Membranes Moist - Neck Exam Neck exam: Positive for: Full Rom - Respiratory Exam Respiratory Exam: Clear to Auscultation Bilateral, NORMAL BREATHING PATTERN - Cardiovascular Exam Cardiovascular Exam: REGULAR RHYTHM - GI/Abdominal Exam GI & Abdominal Exam: Hypoactive Bowel Sounds - Extremities Exam Extremities exam: Positive for: normal inspection - Back Exam Back exam: NORMAL INSPECTION - Neurological Exam Neurological exam: Alert, CN II-XII Intact - Psychiatric Exam Psychiatric exam: Anxious - Skin Skin Exam: Normal Color (pressing on chest reproduces the patients chest pain) Results - Vital Signs Recent Vital Signs: Last Vital Signs Temp 97.5 F L 07/13/17 18:40 Pulse 75 07/13/17 18:40 Resp 17 07/13/17 18:40 BP 153/55 H 07/13/17 18:40 Pulse Ox 100 07/13/17 18:40 - Labs Labs: Laboratory Results - last 24 hr 07/13/17 07/13/17 11:11 18:30 POC Glucose (mg/dL) 112 H 178 H - EKG Data EKG Interpreted by: Myself EKG shows normal: Sinus rhythm (no ischemic changes, narrow QRS. LAD ) Assessment & Plan - Assessment and Plan (Free Text) Assessment: 1. Although pt had anesthesia and has increased risk of CAD as he is a diabetic , his ecgis normal and chest pain is reproduced with palpation, suggesting non aginal chest pain. TNI levels are pending. 2. HTN: pt;s meds. metoprolol 100 cucc, norvasc 10 and valsartan 320 were hled for npo; advise restarting.
[2017-07-13 20:10] LABS: BASO # 0.1 K/uL (0.0-0.2); BASO % 0.4 % (0.0-2.0); EOS % 0.2 % (0.0-4.0); HEMATOCRIT 35.5 % (35.0-51.0); LYMPH # 0.7 K/uL (1.0-4.3); LYMPH % 4.8 % (20.0-40.0); MEAN CELL VOLUME 83.9 fL (80.0-94.0); MEAN CORPUSCULAR HEMOGLOBIN 27.8 pg (27.0-31.0); MEAN CORPUSCULAR HGB CONC 33.1 g/dL (33.0-37.0); MEAN PLATELET VOLUME 8.4 fL (7.2-11.7); MONO # 0.6 K/uL (0.0-0.8); MONO % 3.8 % (0.0-10.0); NRBC % 0.1 % (0.0-2.0); PLATELET COUNT 284 K/uL (130-400); RED CELL DISTRIBUTION WIDTH 14.7 % (11.5-14.5); WHITE BLOOD COUNT 14.6 K/uL (4.8-10.8)
[2017-07-13 20:25] LABS: CHLORIDE 102 mmol/L (98-107); SODIUM 132 mmol/L (132-148)
[2017-07-13 20:27] LABS: ALB/GLOB RATIO 1.1 (1.0-2.1); ALKALINE PHOSPHATASE 105 U/L (38-126); AST/SGOT 53 U/L (17-59); BILIRUBIN,TOTAL 0.9 mg/dL (0.2-1.3); CARBON DIOXIDE 16 mmol/L (22-30); GFR AFRICAN-AMERICAN 47; TOTAL PROTEIN 8.7 g/dL (6.3-8.3)
[2017-07-13 20:28] LABS: ALT/SGPT 70 U/L (21-72); BLOOD UREA NITROGEN 38 mg/dL (9-20); CALCIUM 10.1 mg/dl (8.6-10.4); GLUCOSE,RANDOM 234 mg/dL (75-110); MAGNESIUM 1.9 mg/dL (1.6-2.3); PHOSPHOROUS 3.2 mg/dL (2.5-4.5)
[2017-07-13 20:36] LABS: POTASSIUM 5.9 mmol/L (3.6-5.2)
--- NOTE | 2017-07-13 21:51 | CT ---
EXAM: CT Head Without Intravenous Contrast CLINICAL HISTORY: 82 years old, male; Condition or disease; Headache; Headache not specified; Additional info: Headache, rapid TECHNIQUE: Axial computed tomography images of the head/brain without intravenous contrast. All CT scans at this facility use one or more dose reduction techniques, viz.: automated exposure control; ma/kV adjustment per patient size (including targeted exams where dose is matched to indication; i.e. head); or iterative reconstruction technique. Coronal and sagittal reformatted images were created and reviewed. COMPARISON: CT - HEAD W/O CONTRAST 2015-09-03 12:04 FINDINGS: Brain: No acute intracranial hemorrhage. Decreased attenuation within the distribution of the right middle cerebral artery, consistent with (likely) prior cerebral infarction. Otherwise age-appropriate periventricular white matter disease. No edema. Ventricles: Age-appropriate ventriculomegaly. Bones: No acute displaced fracture. Sinuses: Unremarkable as visualized. No acute sinusitis. Mastoid air cells: Unremarkable as visualized. No mastoid effusion. IMPRESSION: No acute intracranial hemorrhage, or suspicious mass effect.
[2017-07-13] MEDS ORDERED: Metoprolol Succinate 100 mg XL Tab PO SCH (21:59)
--- NOTE | 2017-07-13 22:20 | CT ---
EXAM: CT Chest Without Intravenous Contrast CLINICAL HISTORY: 82 years old, male; Pain; Chest pain; Type not specified; Additional info: Chest pain S/P ercp TECHNIQUE: Axial computed tomography images of the chest without intravenous contrast. All CT scans at this facility use one or more dose reduction techniques, viz.: automated exposure control; ma/kV adjustment per patient size (including targeted exams where dose is matched to indication; i.e. head); or iterative reconstruction technique. Coronal and sagittal reformatted images were created and reviewed. COMPARISON: CT - CHEST W/O CONTRAST 2015-09-04 17:54 FINDINGS: Lungs: No mass. No consolidation. Small bilateral pleural effusions, with adjacent compressive atelectasis. Pleural spaces: As above. No pneumothorax. Heart: No cardiomegaly. No significant pericardial effusion. Vasculature: Calcified atherosclerotic disease. Lymph nodes: No enlarged lymph nodes. Bones: No acute fracture. Within the upper abdomen: The gallbladder is surgically absent. Pneumobilia is detected. Both an interval change from previous examination performed 09/04/2015. Multiple foci of free air is detected within the paraesophageal soft tissues, primarily beneath the right hemidiaphragm (series 4, images 76-94; series 601, images 57 through 65). IMPRESSION: Pneumobilia as well as possible free air beneath the right hemidiaphragm within the paraesophageal soft tissues, for which dedicated cross-sectional imaging of the abdomen is recommended (with noncontrast enhanced CT).
[2017-07-13] MEDS: (Novolin R) Insulin Human Regular 100 units/ml vial SC SCH (22:38)
[2017-07-14] MEDS: Latanoprost 2.5 ml Opht Soln OU SCH ×2 (00:03→22:00)
[2017-07-14 00:06] LABS: NEUTROPHIL 85 % (50-75); TOTAL CELLS COUNTED 100
[2017-07-14] MEDS ORDERED: Cefepime IV 1 gm in Dextrose 1 GM/50 ML BAG IVPB SCH (00:15)
[2017-07-14] MEDS ORDERED: metroNIDAZOLE IV 500 mg/100 ml 500 MG/100 ML BAG IVPB SCH (00:15)
--- NOTE | 2017-07-14 01:47 | CP.PCM.CON ---
History of Present Illness - History of Present Illness History of Present Illness: Attending: Jonnathan Malin MD PCP: Dr Sullivan Reason for Consult: Critical care management Chief Complaint: Abdominal Pain/ Concern for Perforated viscus The patient was seen Post ERCP/DATA ADMINISTRATOR on the Telemetry Unit HPI: The Hx is obtained from the patient and after review of the medical records.This is an 82 years old male with hx of CVA, DM, Gluteal Abscess Dx on his last admission on 06/24/17, ERCP with stent placement in 11/2015 after Cholecyctectomy. He is here for an elective ERCP for removal of the Stent. A DATA ADMINISTRATOR was called after the Stent removal , where the patient complained of abdominal pain radiating to the right shoulder. CT chest done at that time suggested possible free air below the right diaphragm. CT of Abdomen/pelvis was ordered and the patient was transferred to the ICU for closer monitoring. PMH: DM II: HTN; CVA 2013; GERD; gluteal [id number] (MRSA) on 06/27/17; Vertigo; Dementia; Hypothyroidism; gallstones s/p ERCP with Biliary stent placement 12/06/2015; Cardiac Cath in 2013; Glaucoma; CKD; Biliary Stent removal 07/13/17; Cardio Cath 2012 PSH: Cholecystectomy; Left carotid Surgery; Right hand surgery; Biliary stent placement and removal SH: Non smoker; No illegal drug use; no Alcohol use; aLive with ; walks with a cane. FH: States, No known family history Allergies: NKDA Medication: Glipizine 2.5 mg PO ACB, Tradjenta 5 mg PO daily, Amlodipine 10 mg PO daily, Metoprolol XL 100 mg PO daily, Valsartan 320 mg PO daily, Lopid 600 mg PO BID, Lipitor 80 mg PO HS, ASA 81 mg PO daily, Plavix 75 mg PO daily, Cipro 250 mg PO Q12H, Bactrim 800/160 mg PO BID, Ferrous Sulfate 325 mg PO Q12H , Levothyroxine 50 mcg PO daily, Aricept 10 mg PO daily, Antivert 12.5 mg PO TID , Toviaz 8 mg ER PO daily, Protonix 40 mg PO daily, Ascorbic Acid 250 mg PO daily, CyporoHeptadine 4 mg PO BID, Baclofen 10 mg PO BID. Review of Systems - Constitutional Constitutional: absent: Chills, Headache, Lethargy, Malaise - EENT Eyes: absent: Diplopia, Floaters, Photophobia Ears: absent: Decreased Hearing, Ear Discharge, Ear Pain Nose/Mouth/Throat: absent: Epistaxis, Nasal Congestion, Nasal Discharge - Cardiovascular Cardiovascular: Chest Pain at Rest. absent: Dyspnea, Leg Edema - Respiratory Respiratory: absent: Cough, Dyspnea, Wheezing, Chest Congestion - Gastrointestinal Gastrointestinal: Abdominal Pain, Bloating. absent: Nausea, Vomiting - Genitourinary Genitourinary: absent: Dysuria, Flank Pain, Urinary Frequency, Urinary Hesitance - Musculoskeletal Musculoskeletal: Arthralgias - Integumentary Additional comments: Left gluteal abscess - Neurological Neurological: Focal Weakness. absent: Confusion, Headaches - Psychiatric Psychiatric: absent: Anxiety, Depression, Panic Attacks - Endocrine Endocrine: absent: Palpitations, Polydipsia, Polyphagia, Polyuria - Hematologic/Lymphatic Hematologic: absent: Easy Bleeding, Easy Bruising Past Patient History - Infectious Disease Hx of Infectious Diseases: None - Tetanus Immunizations Tetanus Immunization: Unknown - Past Medical History & Family History Past Medical History?: Yes - Past Social History Smoking Status: Never Smoked Chewing Tobacco Use: No Cigar Use: No Alcohol: None Drugs: Denies Home Situation {Lives}: With Family - CARDIAC Hx Cardiac Disorders: Yes Hx Hypercholesterolemia: Yes Hx Hypertension: Yes - PULMONARY Hx Respiratory Disorders: Yes Hx Pneumonia: Yes (KLEBSIELLA PNEUMONIAE) - NEUROLOGICAL Hx Neurological Disorder: Yes HX Cerebrovascular Accident: Yes Hx Dementia: Yes Other/Comment: MEMORY DEFICIT - HEENT Hx HEENT Problems: Yes Hx Cataracts: Yes (SURGERY) - RENAL Hx Chronic Kidney Disease: No - ENDOCRINE/METABOLIC Hx Endocrine Disorders: Yes Hx Diabetes Mellitus Type 2: Yes - HEMATOLOGICAL/ONCOLOGICAL Hx Blood Disorders: No Hx Blood Transfusions: No - INTEGUMENTARY Hx Dermatological Problems: No - MUSCULOSKELETAL/RHEUMATOLOGICAL Hx Musculoskeletal Disorders: Yes Hx Arthritis: Yes (BACK, BL KNEE) Hx Back Pain: Yes Hx Falls: No Other/Comment: RIGHT HAND WEAK GRASP RESIDUAL FROM STROKE - GASTROINTESTINAL Hx Gastrointestinal Disorders: Yes (''STOMACH BACTERIA'') Hx Ulcer: Yes Other/Comment: CHOLEDOCHOLITHIASIS, CHOLANGITIS - GENITOURINARY/GYNECOLOGICAL Hx Genitourinary Disorders: No Hx Incontinence: Yes - PSYCHIATRIC Hx Psychophysiologic Disorder: No Hx Substance Use: No - SURGICAL HISTORY Hx Surgeries: Yes Hx Cataract Extraction: Yes Other/Comment: LEFT BEHIND EAR SURGERY FROM BLOOD CLOTS ,RIGHT HAND SURGERY - ANESTHESIA Hx Anesthesia: Yes Hx Anesthesia Reactions: No Hx Malignant Hyperthermia: No Meds Allergies/Adverse Reactions: Allergies Allergy/AdvReac Type Severity Reaction Status Date / Time No Known Allergies Allergy Verified 07/13/17 10:45 - Medications Medications: Current Medications Amlodipine Besylate (Norvasc) 10 mg PO DAILY [facility] Ascorbic Acid (Vitamin C 250 Mg Tab) 250 mg PO DAILY [facility] Clopidogrel Bisulfate (Plavix) 75 mg PO DAILY [facility] Cyproheptadine HCl (Periactin) 4 mg PO BID [facility] Donepezil HCl (Aricept) 10 mg PO HS [facility] Last Admin: 07/13/17 22:30 Dose: Not Given Ferrous Sulfate (Feosol) 325 mg PO Q12H [facility] Last Admin: 07/13/17 20:40 Dose: 325 mg Gemfibrozil (Lopid) 600 mg PO BID [facility] Home Med (Fesoterodine Fumarate [Toviaz]) 8 mg PO DAILY [facility] Acetaminophen 1,000 mg/ (Miscellaneous) 100 mls @ 400 mls/hr IV Q6 PRN PRN Reason: Pain, moderate (4-7) Stop: 07/14/17 16:35 Last Admin: 07/13/17 17:40 Dose: 100 mls Cefepime HCl (Maxipime Iv 1 Gm Premix) 1 gm in 50 mls @ 100 mls/hr IVPB Q12H [facility] Metronidazole (Flagyl) 500 mg in 100 mls @ 100 mls/hr IVPB Q8 [facility] Sodium Bicarbonate 150 meq/ (Dextrose) 1,150 mls @ 100 mls/hr IV .[id number] [facility] Insulin Human Regular (Novolin R) 0 unit SC ACHS [facility] PRN Reason: Protocol Last Admin: 07/13/17 22:38 Dose: Not Given Latanoprost (Xalatan Opht) 0 ml OU HS [facility] Last Admin: 07/14/17 00:03 Dose: 1 ml Levothyroxine Sodium (Synthroid) 50 mcg PO DAILY@0630 [facility] Meclizine HCl (Antivert) 12.5 mg PO TID [facility] Metoprolol Succinate (Toprol Xl) 100 mg PO DAILY [facility] Morphine Sulfate (Morphine) 1 mg IV Q3 PRN PRN Reason: Pain, moderate (4-7) Ondansetron HCl (Zofran Inj) 4 mg IVP Q6 PRN PRN Reason: Nausea/Vomiting Pantoprazole Sodium (Protonix Ec Tab) 40 mg PO DAILY [facility] Pantoprazole Sodium (Protonix Inj) 40 mg IVP DAILY [facility] Rosuvastatin Calcium (Crestor) 10 mg PO HS [facility] Last Admin: 07/13/17 22:30 Dose: Not Given Saccharomyces Boulardii (Florastor) 250 mg PO BID [facility] Physical Exam - Constitutional Appears: No Acute Distress - Head Exam Head Exam: ATRAUMATIC, NORMAL INSPECTION, NORMOCEPHALIC - Eye Exam Eye Exam: EOMI, Normal appearance Pupil Exam: NORMAL ACCOMODATION, PERRL - ENT Exam ENT Exam: Mucous Membranes Moist, Normal Exam, Normal External Ear Exam, Normal Oropharynx - Neck Exam Neck exam: Positive for: Full Rom, Normal Inspection. Negative for: Lymphadenopathy, Tenderness - Respiratory Exam Respiratory Exam: Clear to Auscultation Bilateral. absent: Rales, Rhonchi, Wheezes - Cardiovascular Exam Cardiovascular Exam: REGULAR RHYTHM, RRR, +S1, +S2 - GI/Abdominal Exam Additional comments: Distended, soft, Tender diffusely in - Rectal Exam Rectal Exam: Deferred - Extremities Exam Extremities exam: Positive for: normal inspection. Negative for: calf tenderness, pedal edema - Back Exam Back exam: NORMAL INSPECTION. absent: CVA tenderness (L), CVA tenderness (R) - Neurological Exam Neurological exam: Alert, CN II-XII Intact, Oriented x3, Reflexes Normal - Psychiatric Exam Psychiatric exam: Normal Affect, Normal Mood - Skin Skin Exam: Dry, Intact, Normal Color, Warm Results - Vital Signs Recent Vital Signs: Last Vital Signs Temp 97.9 F 07/14/17 00:30 Pulse 95 H 07/14/17 00:30 Resp 20 07/14/17 00:30 BP 179/91 H 07/14/17 00:30 Pulse Ox 99 07/14/17 00:30 - Labs Result Diagrams: 07/13/17 20:04 07/13/17 20:04 Labs: Laboratory Results - last 24 hr 07/13/17 07/13/17 07/13/17 11:11 18:30 20:04 WBC 14.6 H D RBC 4.23 L Hgb 11.7 L Hct 35.5 MCV 83.9 MCH 27.8 MCHC 33.1 RDW 14.7 H Plt Count 284 MPV 8.4 Neut % (Auto) 90.8 H Lymph % (Auto) 4.8 L [place] % (Auto) 3.8 Eos % (Auto) 0.2 Baso % (Auto) 0.4 Neut # 13.3 H Lymph # 0.7 L [place] # 0.6 Eos # 0.0 Baso # 0.1 Neutrophils % (Manual) 85 H Band Neutrophils % 2 Lymphocytes % (Manual) 7 L Monocytes % (Manual) 6 Platelet Estimate Normal Rouleaux Slight PT INR APTT Sodium Potassium Chloride Carbon Dioxide Anion Gap BUN Creatinine Est GFR ( Amer) Est GFR (Non-Af Amer) POC Glucose (mg/dL) 112 H 178 H Random Glucose Calcium Phosphorus Magnesium Total Bilirubin AST ALT Alkaline Phosphatase Total Creatine Kinase CK-MB (Mass) Troponin I, Quant Total Protein Albumin Globulin Albumin/Globulin Ratio Free T4 TSH 3rd Generation 07/13/17 07/13/17 07/13/17 20:04 20:04 20:04 WBC RBC Hgb Hct MCV MCH MCHC RDW Plt Count MPV Neut % (Auto) Lymph % (Auto) [place] % (Auto) Eos % (Auto) Baso % (Auto) Neut # Lymph # [place] # Eos # Baso # Neutrophils % (Manual) Band Neutrophils % Lymphocytes % (Manual) Monocytes % (Manual) Platelet Estimate Rouleaux PT 11.4 INR 1.0 APTT 29 Sodium 132 Potassium 5.9 H Chloride 102 Carbon Dioxide 16 L Anion Gap 20 BUN 38 H Creatinine 1.7 H Est GFR ( Amer) 47 Est GFR (Non-Af Amer) 39 POC Glucose (mg/dL) Random Glucose 234 H Calcium 10.1 Phosphorus 3.2 Magnesium 1.9 Total Bilirubin 0.9 AST 53 ALT 70 Alkaline Phosphatase 105 Total Creatine Kinase 51 L CK-MB (Mass) 1.45 Troponin I, Quant < 0.0120 Total Protein 8.7 H Albumin 4.5 Globulin 4.1 H Albumin/Globulin Ratio 1.1 Free T4 1.05 TSH 3rd Generation 0.80 07/13/17 07/13/17 21:04 22:06 WBC RBC Hgb Hct MCV MCH MCHC RDW Plt Count MPV Neut % (Auto) Lymph % (Auto) [place] % (Auto) Eos % (Auto) Baso % (Auto) Neut # Lymph # [place] # Eos # Baso # Neutrophils % (Manual) Band Neutrophils % Lymphocytes % (Manual) Monocytes % (Manual) Platelet Estimate Rouleaux PT INR APTT Sodium Potassium Chloride Carbon Dioxide Anion Gap BUN Creatinine Est GFR ( Amer) Est GFR (Non-Af Amer) POC Glucose (mg/dL) 263 H 218 H Random Glucose Calcium Phosphorus Magnesium Total Bilirubin AST ALT Alkaline Phosphatase Total Creatine Kinase CK-MB (Mass) Troponin I, Quant Total Protein Albumin Globulin Albumin/Globulin Ratio Free T4 TSH 3rd Generation - EKG Data EKG comments: Sinus rhythm with sinus arrhythm 71/min - Imaging and Cardiology Chest x-ray Status: Image reviewed by me Additional comment: Left basal opacity. CT scan - head Status: Image reviewed by me, Report reviewed by me Additional comment: No Acute intracraneal Hemorrhage Nor suspicious mass CT scan - chest Status: Image reviewed by me, Report reviewed by me Additional comment: Pneumobilia as well as possible free air beneath the right diaphragm with in the paraesophageal soft tissue. CT Abdomen/Pelvis Additional comment: Gas Fluid and stranding in the Subcapsular and possible extra capsular area around the left lobe of liver. There is extensive streak artifact along the left lobe of the liver which limits the exam.These findings could represent left subcapsular fluid and gas with possible extracapsular gas, fluid and stranding along the left lobe of the liver which can be postprocedural vs cholangitis representing hematoma or abscess vs seroma. Assessment & Plan - Assessment and Plan (Free Text) Assessment: #. Abdominal Pain #. Acute on Chronic Kidney disease #. Metabolic Acidosis #. Hyperkalemia #. Anemia #. DM II with hyperglycemia #. Leukocytosis #. Gluteal abscess Plan: 82 years old male with hx of CVA, DM, Gluteal Abscess Dx on his last admission on 06/24/17, ERCP with stent placement in 11/2015 after Cholecyctectomy. He is here for an elective ERCP for removal of the Stent. A DATA ADMINISTRATOR was called after the Stent removal , where the patient complained of abdominal pain radiating to the right shoulder. CT chest done at that time suggested possible free air below the right diaphragm. CT of Abdomen/pelvis was ordered and the patient was transferred to the ICU for closer monitoring. #. Abdominal Pain r/o Post procedural perforation but most likely Cholangitis - Consult Dr Austen Surgery - Consult Dr Damian GI - NPO - IV Fluids - nIV pantoprazole - Cefepime - Flagyl - Pain management - Follow CBC - Case discussed with the surgical nurse practitioner #. Acute on Chronic Kidney disease - IV Fluids - follow Renal labs #. Metabolic Acidosis - Sodium Bicarbonate drip started - Follow Blood Gas #. Hyperkalemia - Sodium Bicarbonate Drip started - Follow Electrolytes #. Anemia - Follow Hb #. DM II with hyperglycemia - Regular insulin sliding scale according to Accucheck #. Gluteal abscess - Continue Antibiotics - Date & Time Date: 07/14/17 Time: 01:47
--- NOTE | 2017-07-14 02:11 | CT ---
EXAM: CT Chest Without Intravenous Contrast CT Abdomen and Pelvis Without Intravenous Contrast CLINICAL HISTORY: 82 years old, male; Pain; Abdominal pain and other: Chest pain; Prior surgery; Surgery type: Post ercp; Patient HX: 07-13-17 and 04-28-17; Additional info: Abd pain post ercp TECHNIQUE: Axial computed tomography images of the chest, abdomen and pelvis without intravenous contrast. All CT scans at this facility use one or more dose reduction techniques, viz.: automated exposure control; ma/kV adjustment per patient size (including targeted exams where dose is matched to indication; i.e. head); or iterative reconstruction technique.Limitations: Absence of IV contrast decreases sensitivity for detecting solid organ and vascular abnormality. 1019 images are submitted. Coronal and sagittal reformatted images were created and reviewed. COMPARISON: CT - ABD PELVIS W/O PO OR IV CONT 2017-04-28 22:43 FINDINGS: CHEST: Lungs: Bibasilar lingular and right middle lobe mild nonspecific infiltrates are present, consistent with atelectasis or pneumonia. Pleural space: Unremarkable. No significant effusion. No pneumothorax. Heart: Small pericardial effusion. Mediastinum: Small hiatal hernia. ABDOMEN: Liver: There is gas fluid and stranding in the subcapsular and possible extracapsular area around the left lobe of the liver extending medially along the left lobe of the liver/suprahepatic IVC.There is extensive streak artifact along the left lobe of the liver which limits the examination. These findings can represent left subcapsular fluid and gas with possible extracapsular gas fluid and stranding along the left lobe of the liver which can be postprocedural versus cholangitis representing hematoma or abscess versus seroma.Correlation with clinical evaluation and further workup or followup as recommended by patient's clinical data. Gallbladder and bile ducts: Cholecystectomy changes. Small amount of pneumobilia in the left lobe of the liver. No pneumobilia is identified in the right lobe of the liver and the entire extrahepatic common bile duct. Pancreas: Unremarkable. No ductal dilation. Spleen: Unremarkable. No splenomegaly. Adrenals: Minimal infiltration undergone bilateral adrenal glands. Kidneys and ureters: Bilateral perinephric scarring may be a sequela of infection, inflammation or aging. No obstructing stones. No hydronephrosis. Stomach and bowel: Diverticulosis. No obstruction. No mucosal thickening. Appendix: Normal appendix. PELVIS: Bladder: Partially decompressed bladder with bladder wall thickening. Correlation with urinalysis is recommended only if clinical cystitis is suspected. Reproductive: Bilateral inguinal scrotal herniation of fat. Possible bilateral hydrocele. Enlarged prostate gland. Correlation with digital rectal examination and serum PSA recommended. CHEST, ABDOMEN and PELVIS: Intraperitoneal space: Unremarkable. No significant fluid collection. No free air. Bones/joints: Unremarkable. No acute fracture. No dislocation. Soft tissues: Bilateral inguinal herniation of fat. Vasculature: The aorta demonstrates calcified plaque and is mildly ectatic but normal in caliber. Lymph nodes: Unremarkable. No enlarged lymph nodes. IMPRESSION: 1. There is gas fluid and stranding in the subcapsular and possible extracapsular area around the left lobe of the liver extending medially along the left lobe of the liver/suprahepatic IVC.There is extensive streak artifact along the left lobe of the liver which limits the examination. These findings can represent left subcapsular fluid and gas with possible extracapsular gas fluid and stranding along the left lobe of the liver which can be postprocedural versus cholangitis representing hematoma or abscess versus seroma.Correlation with clinical evaluation and further workup or followup as recommended by patient's clinical data. 2. Bibasilar lingular and right middle lobe mild nonspecific infiltrates are present, consistent with atelectasis or pneumonia. 3. Enlarged prostate. Correlation with digital rectal examination and serum PSA recommended.
[2017-07-14] MEDS: Sodium Bicarbonate 8.4% 150 MEQ in Dextrose 5% In Water 1,000 ML IV SCH ×3 (03:58→22:30)
--- NOTE | 2017-07-14 04:34 | CP.PCM.CON ---
<Shana Funk - Last Filed: 07/14/17 04:57> History of Present Illness - History of Present Illness History of Present Illness: General Surgery consult note for Dr. Boyce Consulted for: abdominal pain, possible free air after ERCP Patient history limited by dementia. What wasn't expressed by the patient was gleaned from the chart Patient is an 82M with PMH pertinent for cholecystectomy 7 months ago with subsequent CBD stent 2 months ago. Patient underwent an ERCP yesterday afternoon with Dr. Damian and had a stent removed and a sphincterotomy. Patient developed worsening RUQ and epigastric abdominal pain, as well as right chest and right back pain later that day. Patient also reports chronic right shoulder pain. Patient denies any current nausea or vomiting, diarrhea, blood in his stool. Patient developed mild tachycardia and was found to have possible free air under the right diaphragm on CT of the chest and so was admitted to the ICU and general surgery was consulted. Review of Systems - Review of Systems Systems not reviewed;Unavailable: Dementia - Constitutional Constitutional: absent: Chills, Fever - Cardiovascular Cardiovascular: Chest Pain (right sided), Chest Pain at Rest. absent: Dyspnea - Respiratory Respiratory: absent: Cough, Dyspnea, Dyspnea on Exertion - Gastrointestinal Gastrointestinal: As Per HPI - Musculoskeletal Musculoskeletal: Back Pain (right upper and lower back) Past Patient History - Infectious Disease Hx of Infectious Diseases: None - Tetanus Immunizations Tetanus Immunization: Unknown - Past Medical History & Family History Past Medical History?: Yes - Past Social History Smoking Status: Never Smoked Chewing Tobacco Use: No Cigar Use: No Alcohol: None Drugs: Denies Home Situation {Lives}: With Family - CARDIAC Hx Cardiac Disorders: Yes Hx Hypercholesterolemia: Yes Hx Hypertension: Yes - PULMONARY Hx Respiratory Disorders: Yes Hx Pneumonia: Yes (KLEBSIELLA PNEUMONIAE) - NEUROLOGICAL Hx Neurological Disorder: Yes HX Cerebrovascular Accident: Yes Hx Dementia: Yes Other/Comment: MEMORY DEFICIT - HEENT Hx HEENT Problems: Yes Hx Cataracts: Yes (SURGERY) - RENAL Hx Chronic Kidney Disease: No - ENDOCRINE/METABOLIC Hx Endocrine Disorders: Yes Hx Diabetes Mellitus Type 2: Yes - HEMATOLOGICAL/ONCOLOGICAL Hx Blood Disorders: No Hx Blood Transfusions: No - INTEGUMENTARY Hx Dermatological Problems: No - MUSCULOSKELETAL/RHEUMATOLOGICAL Hx Musculoskeletal Disorders: Yes Hx Arthritis: Yes (BACK, BL KNEE) Hx Back Pain: Yes Hx Falls: No Other/Comment: RIGHT HAND WEAK GRASP RESIDUAL FROM STROKE - GASTROINTESTINAL Hx Gastrointestinal Disorders: Yes (''STOMACH BACTERIA'') Hx Ulcer: Yes Other/Comment: CHOLEDOCHOLITHIASIS, CHOLANGITIS - GENITOURINARY/GYNECOLOGICAL Hx Genitourinary Disorders: No Hx Incontinence: Yes - PSYCHIATRIC Hx Psychophysiologic Disorder: No Hx Substance Use: No - SURGICAL HISTORY Hx Surgeries: Yes Hx Cataract Extraction: Yes Other/Comment: LEFT BEHIND EAR SURGERY FROM BLOOD CLOTS ,RIGHT HAND SURGERY - ANESTHESIA Hx Anesthesia: Yes Hx Anesthesia Reactions: No Hx Malignant Hyperthermia: No Meds Allergies/Adverse Reactions: Allergies Allergy/AdvReac Type Severity Reaction Status Date / Time No Known Allergies Allergy Verified 07/13/17 10:45 - Medications Medications: Current Medications Amlodipine Besylate (Norvasc) 10 mg PO DAILY [facility] Ascorbic Acid (Vitamin C 250 Mg Tab) 250 mg PO DAILY [facility] Benzocaine/Menthol (Cepacol Sore Throat) 1 love MT Q2 PRN PRN Reason: Sore Throat Clopidogrel Bisulfate (Plavix) 75 mg PO DAILY [facility] Cyproheptadine HCl (Periactin) 4 mg PO BID [facility] Donepezil HCl (Aricept) 10 mg PO HS [facility] Last Admin: 07/13/17 22:30 Dose: Not Given Ferrous Sulfate (Feosol) 325 mg PO Q12H [facility] Last Admin: 07/13/17 20:40 Dose: 325 mg Gemfibrozil (Lopid) 600 mg PO BID [facility] Home Med (Fesoterodine Fumarate [Toviaz]) 8 mg PO DAILY [facility] Acetaminophen 1,000 mg/ (Miscellaneous) 100 mls @ 400 mls/hr IV Q6 PRN PRN Reason: Pain, moderate (4-7) Stop: 07/14/17 16:35 Last Admin: 07/13/17 17:40 Dose: 100 mls Cefepime HCl (Maxipime Iv 1 Gm Premix) 1 gm in 50 mls @ 100 mls/hr IVPB Q12H [facility] Metronidazole (Flagyl) 500 mg in 100 mls @ 100 mls/hr IVPB Q8 [facility] Sodium Bicarbonate 150 meq/ (Dextrose) 1,150 mls @ 100 mls/hr IV .[id number] [facility] Lactated Ringer's (Lactated Ringer's) 1,000 mls @ 125 mls/hr IV .Q8H [facility] Insulin Human Regular (Novolin R) 0 unit SC ACHS [facility] PRN Reason: Protocol Last Admin: 07/13/17 22:38 Dose: Not Given Latanoprost (Xalatan Opht) 0 ml OU HS [facility] Last Admin: 07/14/17 00:03 Dose: 1 ml Levothyroxine Sodium (Synthroid) 50 mcg PO DAILY@0630 [facility] Meclizine HCl (Antivert) 12.5 mg PO TID [facility] Metoprolol Succinate (Toprol Xl) 100 mg PO DAILY [facility] Morphine Sulfate (Morphine) 1 mg IV Q3 PRN PRN Reason: Pain, moderate (4-7) Morphine Sulfate (Morphine) 2 mg IVP Q3 PRN PRN Reason: Pain, severe (8-10) Ondansetron HCl (Zofran Inj) 4 mg IVP Q6 PRN PRN Reason: Nausea/Vomiting Pantoprazole Sodium (Protonix Ec Tab) 40 mg PO DAILY [facility] Pantoprazole Sodium (Protonix Inj) 40 mg IVP DAILY [facility] Rosuvastatin Calcium (Crestor) 10 mg PO HS [facility] Last Admin: 07/13/17 22:30 Dose: Not Given Saccharomyces Boulardii (Florastor) 250 mg PO BID [facility] Physical Exam - Constitutional Appears: Non-toxic, No Acute Distress - Head Exam Head Exam: ATRAUMATIC, NORMOCEPHALIC - ENT Exam ENT Exam: Mucous Membranes Moist, Normal Oropharynx - Respiratory Exam Respiratory Exam: NORMAL BREATHING PATTERN. absent: Accessory Muscle Use, Respiratory Distress - Cardiovascular Exam Cardiovascular Exam: Tachycardia, REGULAR RHYTHM - GI/Abdominal Exam GI & Abdominal Exam: Distended, Guarding (RUQ/epigastrium), Soft, Tenderness ( RUQ/epigastrium severe, LLQ and RLQ moderate). absent: Mass, Rigid - Extremities Exam Extremities exam: Positive for: pedal pulses present. Negative for: calf tenderness, pedal edema - Neurological Exam Neurological exam: Alert Additional comments: oriented to place and person but not time - Psychiatric Exam Psychiatric exam: Agitated, Normal Affect - Skin Skin Exam: Dry, Normal Color, Warm Results - Vital Signs Recent Vital Signs: Last Vital Signs Temp 97.9 F 07/14/17 00:30 Pulse 98 H 07/14/17 01:22 Resp 20 07/14/17 00:30 BP 179/91 H 07/14/17 00:30 Pulse Ox 99 07/14/17 00:30 - Labs Result Diagrams: 07/13/17 20:04 07/13/17 20:04 Labs: Laboratory Results - last 24 hr 07/13/17 07/13/17 07/13/17 11:11 18:30 20:04 WBC 14.6 H D RBC 4.23 L Hgb 11.7 L Hct 35.5 MCV 83.9 MCH 27.8 MCHC 33.1 RDW 14.7 H Plt Count 284 MPV 8.4 Neut % (Auto) 90.8 H Lymph % (Auto) 4.8 L [place] % (Auto) 3.8 Eos % (Auto) 0.2 Baso % (Auto) 0.4 Neut # 13.3 H Lymph # 0.7 L [place] # 0.6 Eos # 0.0 Baso # 0.1 Neutrophils % (Manual) 85 H Band Neutrophils % 2 Lymphocytes % (Manual) 7 L Monocytes % (Manual) 6 Platelet Estimate Normal Rouleaux Slight PT INR APTT Sodium Potassium Chloride Carbon Dioxide Anion Gap BUN Creatinine Est GFR ( Amer) Est GFR (Non-Af Amer) POC Glucose (mg/dL) 112 H 178 H Random Glucose Calcium Phosphorus Magnesium Total Bilirubin AST ALT Alkaline Phosphatase Total Creatine Kinase CK-MB (Mass) Troponin I, Quant Total Protein Albumin Globulin Albumin/Globulin Ratio Free T4 TSH 3rd Generation 07/13/17 07/13/17 07/13/17 20:04 20:04 20:04 WBC RBC Hgb Hct MCV MCH MCHC RDW Plt Count MPV Neut % (Auto) Lymph % (Auto) [place] % (Auto) Eos % (Auto) Baso % (Auto) Neut # Lymph # [place] # Eos # Baso # Neutrophils % (Manual) Band Neutrophils % Lymphocytes % (Manual) Monocytes % (Manual) Platelet Estimate Rouleaux PT 11.4 INR 1.0 APTT 29 Sodium 132 Potassium 5.9 H Chloride 102 Carbon Dioxide 16 L Anion Gap 20 BUN 38 H Creatinine 1.7 H Est GFR ( Amer) 47 Est GFR (Non-Af Amer) 39 POC Glucose (mg/dL) Random Glucose 234 H Calcium 10.1 Phosphorus 3.2 Magnesium 1.9 Total Bilirubin 0.9 AST 53 ALT 70 Alkaline Phosphatase 105 Total Creatine Kinase 51 L CK-MB (Mass) 1.45 Troponin I, Quant < 0.0120 Total Protein 8.7 H Albumin 4.5 Globulin 4.1 H Albumin/Globulin Ratio 1.1 Free T4 1.05 TSH 3rd Generation 0.80 07/13/17 07/13/17 21:04 22:06 WBC RBC Hgb Hct MCV MCH MCHC RDW Plt Count MPV Neut % (Auto) Lymph % (Auto) [place] % (Auto) Eos % (Auto) Baso % (Auto) Neut # Lymph # [place] # Eos # Baso # Neutrophils % (Manual) Band Neutrophils % Lymphocytes % (Manual) Monocytes % (Manual) Platelet Estimate Rouleaux PT INR APTT Sodium Potassium Chloride Carbon Dioxide Anion Gap BUN Creatinine Est GFR ( Amer) Est GFR (Non-Af Amer) POC Glucose (mg/dL) 263 H 218 H Random Glucose Calcium Phosphorus Magnesium Total Bilirubin AST ALT Alkaline Phosphatase Total Creatine Kinase CK-MB (Mass) Troponin I, Quant Total Protein Albumin Globulin Albumin/Globulin Ratio Free T4 TSH 3rd Generation - Imaging and Cardiology CT Abdomen/Pelvis Status: Image reviewed by me, Report reviewed by me Assessment & Plan - Assessment and Plan (Free Text) Assessment: 82M with RUQ/epigastric and right chest/back/shoulder pain S/P ERCP Plan: -No indication for emergent surgical intervention--patient vitals are stable aside from mild tachycardia. Will monitor closely -16fr NGT placed and hooked up to continuous low wall suction -CXR confirmed placement -Trend CBC/CMP, F/U lactic acid and lipase -NPO -IVF, IV abx -Serial exams -Monitor for bowel movements -PRN pain and nausea medicaiton -F/U GI recs Discussed with Dr. Boyce. Will continue to follow closely and further surgical planning pending clinical progression and labs later this AM. Shana Funk PGY2 <Manohar Boyce - Last Filed: 07/19/17 15:54> Meds - Medications Medications: Current Medications Ascorbic Acid (Vitamin C 250 Mg Tab) 250 mg PO DAILY [facility] Last Admin: 07/19/17 09:17 Dose: 250 mg Benzocaine/Menthol (Cepacol Sore Throat) 1 love MT Q2 PRN PRN Reason: Sore Throat Last Admin: 07/17/17 20:25 Dose: 1 love Calcium Acetate (Phoslo) 667 mg PO TID [facility] Last Admin: 07/19/17 13:59 Dose: 667 mg Clopidogrel Bisulfate (Plavix) 75 mg PO DAILY [facility] Cyproheptadine HCl (Periactin) 4 mg PO BID [facility] Last Admin: 07/19/17 09:17 Dose: 4 mg Donepezil HCl (Aricept) 10 mg PO HS [facility] Last Admin: 07/18/17 21:19 Dose: 10 mg Ferrous Sulfate (Feosol) 325 mg PO Q12H [facility] Last Admin: 07/19/17 06:04 Dose: 325 mg Gemfibrozil (Lopid) 600 mg PO BID [facility] Last Admin: 07/19/17 09:17 Dose: 600 mg Home Med (Fesoterodine Fumarate [Toviaz]) 8 mg PO DAILY [facility] Tigecycline 50 mg/ Dextrose 100 mls @ 100 mls/hr IVPB Q12H [facility] Last Admin: 07/19/17 12:23 Dose: 100 mls/hr Metronidazole 250 mg/ (Miscellaneous) 50 mls @ 100 mls/hr IVPB Q8 [facility] Last Admin: 07/19/17 13:59 Dose: 100 mls/hr Insulin Human Regular (Novolin R) 0 unit SC ACHS [facility] PRN Reason: Protocol Last Admin: 07/19/17 12:25 Dose: 5 unit Latanoprost (Xalatan Opht) 0 ml OU HS [facility] Last Admin: 07/18/17 21:19 Dose: 2.5 ml Levothyroxine Sodium (Synthroid) 50 mcg PO DAILY@0630 [facility] Last Admin: 07/19/17 06:04 Dose: 50 mcg Meclizine HCl (Antivert) 12.5 mg PO TID [facility] Last Admin: 07/19/17 13:59 Dose: 12.5 mg Metoprolol Succinate (Toprol Xl) 100 mg PO DAILY [facility] Last Admin: 07/14/17 13:41 Dose: 100 mg Morphine Sulfate (Morphine) 0.5 mg IVP Q6H PRN PRN Reason: Pain, severe (8-10) Last Admin: 07/19/17 13:10 Dose: 0.5 mg Ondansetron HCl (Zofran Inj) 4 mg IVP Q6 PRN PRN Reason: Nausea/Vomiting Pantoprazole Sodium (Protonix Inj) 40 mg IVP DAILY [facility] Last Admin: 07/19/17 09:16 Dose: 40 mg Rosuvastatin Calcium (Crestor) 10 mg PO HS [facility] Last Admin: 07/18/17 21:19 Dose: 10 mg Saccharomyces Boulardii (Florastor) 250 mg PO BID [facility] Last Admin: 07/19/17 09:18 Dose: 250 mg Results - Vital Signs Recent Vital Signs: Last Vital Signs Temp 97.9 F 07/19/17 12:00 Pulse 81 07/19/17 14:26 Resp 39 H 07/19/17 14:26 BP 105/45 L 07/19/17 14:26 Pulse Ox 100 07/19/17 14:26 - Labs Result Diagrams: 07/19/17 06:45 07/19/17 06:45 Labs: Laboratory Results - last 24 hr 07/18/17 07/19/17 07/19/17 21:14 06:45 06:45 WBC 11.9 H RBC 3.33 L Hgb 9.2 L Hct 27.9 L MCV 83.9 MCH 27.6 MCHC 32.9 L RDW 15.2 H Plt Count 255 MPV 8.4 Neut % (Auto) 73.5 Lymph % (Auto) 10.6 L [place] % (Auto) 12.0 H Eos % (Auto) 3.5 Baso % (Auto) 0.4 Neut # 8.8 H Lymph # 1.3 [place] # 1.4 H Eos # 0.4 Baso # 0.0 Sodium 123 L Potassium 3.8 Chloride 93 L Carbon Dioxide 16 L Anion Gap 18 BUN 80 H Creatinine 4.5 H Est GFR ( Amer) 15 Est GFR (Non-Af Amer) 13 POC Glucose (mg/dL) 277 H Random Glucose 196 H Calcium 7.6 L Phosphorus 7.9 H Magnesium 2.3 Total Bilirubin 0.5 AST 20 ALT 40 Alkaline Phosphatase 79 Total Protein 5.9 L Albumin 2.6 L Globulin 3.2 Albumin/Globulin Ratio 0.8 L 07/19/17 07/19/17 07:45 11:52 WBC RBC Hgb Hct MCV MCH MCHC RDW Plt Count MPV Neut % (Auto) Lymph % (Auto) [place] % (Auto) Eos % (Auto) Baso % (Auto) Neut # Lymph # [place] # Eos # Baso # Sodium Potassium Chloride Carbon Dioxide Anion Gap BUN Creatinine Est GFR ( Amer) Est GFR (Non-Af Amer) POC Glucose (mg/dL) 249 H 232 H Random Glucose Calcium Phosphorus Magnesium Total Bilirubin AST ALT Alkaline Phosphatase Total Protein Albumin Globulin Albumin/Globulin Ratio Attending/Attestation - Attestation I have personally seen and examined this patient.: Yes I have fully participated in the care of the patient.: Yes I have reviewed all pertinent clinical information: Yes Notes (Text): Pt was seen and examined at bedside Agree with above note and assessment Pt with free intra peritoneal air s/p ERCP and stent removal c/o abdominal pain and mild tenderness No peritoneal signs IV antibiotics Upper GI series to r/o duodenal perforation C/w current mx Plan d.w pt in detail Risk and benefit explained in detail
[2017-07-14 05:35] LABS: DRAW SITE RB
[2017-07-14 06:31] LABS: BASO # 0.1 K/uL (0.0-0.2); BASO % 0.8 % (0.0-2.0); HEMATOCRIT 42.4 % (35.0-51.0); LYMPH # 0.4 K/uL (1.0-4.3); MEAN CELL VOLUME 86.6 fL (80.0-94.0); MEAN CORPUSCULAR HEMOGLOBIN 27.7 pg (27.0-31.0); MEAN PLATELET VOLUME 9.2 fL (7.2-11.7); MONO # 0.9 K/uL (0.0-0.8); MONO % 5.3 % (0.0-10.0); PLATELET COUNT 248 K/uL (130-400); RED CELL DISTRIBUTION WIDTH 15.4 % (11.5-14.5); WHITE BLOOD COUNT 17.4 K/uL (4.8-10.8)
[2017-07-14 06:37] LABS: POTASSIUM 5.6 mmol/L (3.6-5.2)
[2017-07-14 06:39] LABS: ALB/GLOB RATIO 1.1 (1.0-2.1); BILIRUBIN,TOTAL 0.9 mg/dL (0.2-1.3); PHOSPHOROUS 3.9 mg/dL (2.5-4.5)
[2017-07-14 06:40] LABS: CALCIUM 10.2 mg/dl (8.6-10.4); MAGNESIUM 1.9 mg/dL (1.6-2.3)
[2017-07-14] MEDS: Lactated Ringer's 1,000 ML IV SCH ×2 (06:57→17:44)
[2017-07-14] MEDS: Levothyroxine 50 MCG TAB PO SCH (07:00)
--- NOTE | 2017-07-14 07:28 | CP.PCM.PN ---
Subjective - Date & Time of Evaluation Date of Evaluation: 07/13/17 Time of Evaluation: 23:00 - Subjective Subjective: Patient was found to have free air above the liver area, suspected from ERCP procedure, had pain in the epigastric area, tender, no rigidity, or signs of acute peritonitis, borderline tachycardia, lab leucocytosis, worsened acidosis to 16, mild hyperkalemia. Plan Transfer to ICU Cefepime and flagyl NPO, may do NG Surgery consult Repeat f/u CT Spoke to GI Pain control Bicarb drip will also improve hyperkalemia. Objective - Vital Signs/Intake and Output Vital Signs (last 24 hours): Temp Pulse Resp BP Pulse Ox 97.9 F 98 H 20 179/91 H 99 07/14/17 00:30 07/14/17 01:22 07/14/17 00:30 07/14/17 00:30 07/14/17 00:30 Intake and Output: 07/14/17 07/14/17 06:59 18:59 Output Total 250 Balance -250 - Medications Medications: Current Medications Amlodipine Besylate (Norvasc) 10 mg PO DAILY [facility] Ascorbic Acid (Vitamin C 250 Mg Tab) 250 mg PO DAILY [facility] Benzocaine/Menthol (Cepacol Sore Throat) 1 love MT Q2 PRN PRN Reason: Sore Throat Clopidogrel Bisulfate (Plavix) 75 mg PO DAILY [facility] Cyproheptadine HCl (Periactin) 4 mg PO BID [facility] Donepezil HCl (Aricept) 10 mg PO HS [facility] Last Admin: 07/13/17 22:30 Dose: Not Given Ferrous Sulfate (Feosol) 325 mg PO Q12H [facility] Last Admin: 07/14/17 06:47 Dose: Not Given Gemfibrozil (Lopid) 600 mg PO BID [facility] Home Med (Fesoterodine Fumarate [Toviaz]) 8 mg PO DAILY [facility] Acetaminophen 1,000 mg/ (Miscellaneous) 100 mls @ 400 mls/hr IV Q6 PRN PRN Reason: Pain, moderate (4-7) Stop: 07/14/17 16:35 Last Admin: 07/13/17 17:40 Dose: 100 mls Cefepime HCl (Maxipime Iv 1 Gm Premix) 1 gm in 50 mls @ 100 mls/hr IVPB Q12H [facility] Last Admin: 07/14/17 03:56 Dose: 100 mls/hr Metronidazole (Flagyl) 500 mg in 100 mls @ 100 mls/hr IVPB Q8 [facility] Last Admin: 07/14/17 04:30 Dose: 100 mls/hr Sodium Bicarbonate 150 meq/ (Dextrose) 1,150 mls @ 100 mls/hr IV .[id number] [facility] Last Admin: 07/14/17 03:58 Dose: 100 mls/hr Lactated Ringer's (Lactated Ringer's) 1,000 mls @ 125 mls/hr IV .Q8H [facility] Last Admin: 07/14/17 06:57 Dose: Not Given Insulin Human Regular (Novolin R) 0 unit SC ACHS [facility] PRN Reason: Protocol Last Admin: 07/13/17 22:38 Dose: Not Given Latanoprost (Xalatan Opht) 0 ml OU HS [facility] Last Admin: 07/14/17 00:03 Dose: 1 ml Levothyroxine Sodium (Synthroid) 50 mcg PO DAILY@0630 [facility] Last Admin: 07/14/17 07:00 Dose: Not Given Meclizine HCl (Antivert) 12.5 mg PO TID [facility] Metoprolol Succinate (Toprol Xl) 100 mg PO DAILY [facility] Morphine Sulfate (Morphine) 1 mg IV Q3 PRN PRN Reason: Pain, moderate (4-7) Morphine Sulfate (Morphine) 2 mg IVP Q3 PRN PRN Reason: Pain, severe (8-10) Last Admin: 07/14/17 06:55 Dose: 2 mg Ondansetron HCl (Zofran Inj) 4 mg IVP Q6 PRN PRN Reason: Nausea/Vomiting Pantoprazole Sodium (Protonix Ec Tab) 40 mg PO DAILY [facility] Pantoprazole Sodium (Protonix Inj) 40 mg IVP DAILY [facility] Rosuvastatin Calcium (Crestor) 10 mg PO HS [facility] Last Admin: 07/13/17 22:30 Dose: Not Given Saccharomyces Boulardii (Florastor) 250 mg PO BID [facility] - Labs Labs: 07/14/17 06:20 07/14/17 06:22 PT 11.4 SECONDS (9.7-12.2) 07/13/17 20:04 INR 1.0 07/13/17 20:04 APTT 29 SECONDS (21-34) 07/13/17 20:04
--- NOTE | 2017-07-14 08:10 | RAD ---
PROCEDURE: CHEST RADIOGRAPH, 1 VIEW HISTORY: chest pain, rapid COMPARISON: 04/28/2017 FINDINGS: LUNGS: Biapical pleural thickening. Patchy increased markings at the left lung base. Right paratracheal opacity may represent prominent vasculature. PLEURA: As above. CARDIOVASCULAR: Calcification at the aortic knob. OSSEOUS STRUCTURES: No significant abnormalities. VISUALIZED UPPER ABDOMEN: Normal. OTHER FINDINGS: None. IMPRESSION: Biapical pleural thickening. Patchy increased markings at the left lung base. Right paratracheal opacity may represent prominent vasculature.
[2017-07-14] MEDS: (Novolin R) Insulin Human Regular 100 units/ml vial SC SCH ×4 (08:30→22:00)
--- NOTE | 2017-07-14 08:32 | CP.PCM.PN ---
Subjective - Date & Time of Evaluation Date of Evaluation: 07/14/17 Time of Evaluation: 08:15 - Subjective Subjective: Hospitalist Progress Note Patient was seen and examined at 8:15 AM 07/14/17 ICU Bed #18 with Nurse Sunni 82 year old male with extensive medical history (please see Assessment and Plans below) who underwent ERCP for removal of CBD Stent on 07/13/17 after which he complained of abdominal and chest pain. A rapid response was called. CT Chest revealed pneumobilia as well as possible free air beneath Right Hemidiaphragm within Paraesophageal Soft Tissues. CT Abdomen/Pelvis revealed gas fluid and stranding in the subcapsular and extracapsular area around Left Lobe Liver. NGT was placed, patient made NPO, and was then transferred to ICU for further treatment and evaluation. Upon FULL ROS: Generalized Chest Pain pressure like Generalized Abdominal Pain gas like NO bowel movement since rapid response Exam: Physical Exam - Constitutional Appears: Appears to be very anxious - Head Exam Head Exam: NORMAL INSPECTION, NORMOCEPHALIC - Eye Exam Eye Exam: EOMI, Normal appearance - ENT Exam ENT Exam: Mucous Membranes Moist, NGT in place with production of 300 ml of clear green fluid - Neck Exam Neck exam: Positive for: Full Rom, Normal Inspection - Respiratory Exam Respiratory Exam: Clear to Auscultation Bilateral, NORMAL BREATHING PATTERN. This exam is limited by patient not breathing in deeply and exhaling as instructed. absent: Decreased Breath Sounds, Rhonchi, Wheezes - Cardiovascular Exam Cardiovascular Exam: REGULAR RHYTHM, +S1, +S2 - GI/Abdominal Exam GI & Abdominal Exam: Distended, Normal Bowel Sounds, Tenderness diffusely as per patient, NO guarding/NO rebound tenderness. absent: Rigid - Extremities Exam Extremities exam: Positive for: full ROM, normal inspection, Pulses are strong and equal, Capillary Refill is 2 seconds, NO edema - Back Exam Back exam: NORMAL INSPECTION - Neurological Exam Neurological exam: Alert, Awake, Knows why he is here - Psychiatric Exam Psychiatric exam: Anxious - Skin Skin Exam: Left Lower Buttock 0.2 cm area of former I&D site that has dry eschar. NON tender to palpation. Some hardness around this site but NO erythema , NO edema, and NO warmth. Assessment and Plan: Assessment & Plan (1) Chest pain Assessment and Plan: Patient with atypical chest pain. Cardio Dr. Chau does not feel that this is cardiac related Troponins are negative TSH, Free T4 are normal F/u ECHO Status: Acute (2) Abdominal pain Assessment and Plan: s/p ERCP with removal of stent and sphincterotomy with Dr. Damian 07/13/17 Dr. Damian consult placed and will await further recommendations Patient with abdominal distension. Likely gas from procedure. CXR 07/13/17 does not show air under diaphragm. Chest CT 07/13/17 shows pneumobilia as well as possible free air beneath Right Hemidiaphragm within Paraesophagel soft tissues. CT Abdomen/Pelvis 07/13/17 shows gas fluid and stranding in the subcapsular and extracapsular area around Left Lobe Liver. NGT in place with low wall suction and has produced 300 ml clear green material since placement Surgery Dr. Crawford consulted: no surgical intervention at this time and keep NPO with NGT for now Status: Acute (3) Bilateral Pneumonia CT Abdomen/Pelvis 07/13/17 showed bibasilar lingular and right middle lobe mild nonspecific infiltrates consistent with atelectasis/pneumonia As patient was admitted to hospital within the last month (for Left Buttock Abscess) and has been on antibiotics, this is likely Health Care Associated Pneumonia with increased risk for Multidrug Resistence therefore he was started on the following: Zosyn 2.25 gm IV Q6H Ciprofloxacin 400 mg IV Q12H Vancomycin 1 gm IV Q24H F/U Vancomycin Trough Thursday07/17/17 at 8:30 AM prior to 4th dose F/U Urine Legionella Ag F/U Urine Strep pneumoniae Ag F/U Mycoplasma IgM and IgG F/U Influenza A/B F/U Blood and Urine Cultures F/U further recommendations from ID Dr. Langford who saw patient on last admission 06/24/17 through 06/27/17 for Left Buttock Abscess (4). Anion Gap Metabolic Acidosis Likely secondary to GI Perforation, Bilateral Pneumonia leading to Sepsis: CODE SEPSIS was called See Assessment and Plans #2 and #3 Due to the severe acidosis he was also started on D5W with 3 amps of NaHCO3 running at 100 ml/hour which should finish at around 12 PM today Repeat VBG at 12 PM (5). Hyperkalemia Likely secondary to the Anion Gap Metabolic Acidosis See Assessment and Plans #2 and #3 (6). CKD Stage [address] Oconnell Consult for further recommendations (7). Headache Assessment and Plan: CT Head 07/13/17 was negative for bleed or acute process If NO surgical intervention will then restart ASA and Plavix and provide Anticoagulation for DVT prophylaxis Status: Acute (8) AD (Alzheimer's disease) Assessment and Plan: Reusme home Aricept 10 mg PO daily. Status: Acute (9) Choledocholithiasis Assessment and Plan: s/p ERCP with removal of stent and sphincterotomy with Dr. Damian 07/13/17 Status: Acute (10) Anemia Assessment and Plan: Likely secondary to Chronic Disease: CKD Stage III Resume Ferrous Sulfate 325 mg PO daily. f/u H/H Status: Acute (11) Hx Left Gluteal abscess Assessment and Plan: Was I&D by surgery team on 06/26/17 Treated with Bactrim 800/160 PO Q12H for 7 days S/P discharge 06/27/17 Status: Acute (12) HLD (hyperlipidemia) Assessment and Plan: Start home meds: Lopid 600 mg PO BID Patient takes Lipitor 80 mg PO HS which is not on formulary. Will Start Crestor 10 mg PO HS (renal dosed). Status: Acute (13) HTN (hypertension) Assessment and Plan: Resume Home meds: Amlodipine 10 mg PO daily Metoprolol XL 100 mg PO daily Losartan 100 mg PO daily (Valsartan not on formulary) Status: Acute (14) Hx of stroke without residual deficits Assessment and Plan: CT Head 07/13/17 was negative for bleed or acute process Patient takes Lipitor 80 mg PO HS. Will Start Crestor 10 mg PO HS (renal dosed). Hold ASA and Plavix for now depending upon what surgery team recommendations are for the findings on CT Abdomen/Pelvis Status: Acute (15) Diabetes Assessment and Plan: Patient is NPO. ISS Accuchecks ACHS Status: Chronic (16) History of hypothyroidism Assessment and Plan: Resume home med: Levothyroxine 50 mcg PO daily TSH, Free T4 are normal Status: Chronic (17) Overactive bladder Assessment and Plan: Patient's home Toviaz is not on formulary. Will monitor symptoms for now. Enlarged Prostate on CT Abdomen/Pelvis F/U PSA 07/15/17 Status: Acute (18) Hx of glaucoma Assessment and Plan: Patient's home med Travatan ggt not on formulary. Start Xalatan ggt in bilateral eyes. Status: Acute (19) Hx of gastroesophageal reflux (GERD) Assessment and Plan: Protonix 10 mg PO daily Status: Acute (20) Prophylactic measure Assessment and Plan: Protonix 10 mg PO daily SCDs Hold chemical anticoagulation for now for reasons mentioned above Restart home meds: Ascorbic Acid 250 mg PO daily Objective - Vital Signs/Intake and Output Vital Signs (last 24 hours): Temp Pulse Resp BP Pulse Ox 97.9 F 109 H 30 H 139/66 97 07/14/17 00:30 07/14/17 07:50 07/14/17 07:50 07/14/17 06:57 07/14/17 07:50 Intake and Output: 07/14/17 07/14/17 06:59 18:59 Intake Total 300 100 Output Total 250 0 Balance 50 100 - Medications Medications: Current Medications Amlodipine Besylate (Norvasc) 10 mg PO DAILY [facility] Ascorbic Acid (Vitamin C 250 Mg Tab) 250 mg PO DAILY [facility] Benzocaine/Menthol (Cepacol Sore Throat) 1 love MT Q2 PRN PRN Reason: Sore Throat Clopidogrel Bisulfate (Plavix) 75 mg PO DAILY [facility] Cyproheptadine HCl (Periactin) 4 mg PO BID [facility] Donepezil HCl (Aricept) 10 mg PO HS [facility] Last Admin: 07/13/17 22:30 Dose: Not Given Ferrous Sulfate (Feosol) 325 mg PO Q12H [facility] Last Admin: 07/14/17 06:47 Dose: Not Given Gemfibrozil (Lopid) 600 mg PO BID [facility] Home Med (Fesoterodine Fumarate [Toviaz]) 8 mg PO DAILY [facility] Acetaminophen 1,000 mg/ (Miscellaneous) 100 mls @ 400 mls/hr IV Q6 PRN PRN Reason: Pain, moderate (4-7) Stop: 07/14/17 16:35 Last Admin: 07/13/17 17:40 Dose: 100 mls Cefepime HCl (Maxipime Iv 1 Gm Premix) 1 gm in 50 mls @ 100 mls/hr IVPB Q12H [facility] Last Admin: 07/14/17 03:56 Dose: 100 mls/hr Metronidazole (Flagyl) 500 mg in 100 mls @ 100 mls/hr IVPB Q8 [facility] Last Admin: 07/14/17 04:30 Dose: 100 mls/hr Sodium Bicarbonate 150 meq/ (Dextrose) 1,150 mls @ 100 mls/hr IV .[id number] [facility] Last Admin: 07/14/17 03:58 Dose: 100 mls/hr Lactated Ringer's (Lactated Ringer's) 1,000 mls @ 125 mls/hr IV .Q8H [facility] Last Admin: 07/14/17 06:57 Dose: Not Given Insulin Human Regular (Novolin R) 0 unit SC ACHS [facility] PRN Reason: Protocol Last Admin: 07/13/17 22:38 Dose: Not Given Latanoprost (Xalatan Opht) 0 ml OU HS [facility] Last Admin: 07/14/17 00:03 Dose: 1 ml Levothyroxine Sodium (Synthroid) 50 mcg PO DAILY@0630 [facility] Last Admin: 07/14/17 07:00 Dose: Not Given Meclizine HCl (Antivert) 12.5 mg PO TID [facility] Metoprolol Succinate (Toprol Xl) 100 mg PO DAILY [facility] Morphine Sulfate (Morphine) 1 mg IV Q3 PRN PRN Reason: Pain, moderate (4-7) Morphine Sulfate (Morphine) 2 mg IVP Q3 PRN PRN Reason: Pain, severe (8-10) Last Admin: 07/14/17 06:55 Dose: 2 mg Ondansetron HCl (Zofran Inj) 4 mg IVP Q6 PRN PRN Reason: Nausea/Vomiting Pantoprazole Sodium (Protonix Ec Tab) 40 mg PO DAILY [facility] Pantoprazole Sodium (Protonix Inj) 40 mg IVP DAILY [facility] Rosuvastatin Calcium (Crestor) 10 mg PO HS [facility] Last Admin: 07/13/17 22:30 Dose: Not Given Saccharomyces Boulardii (Florastor) 250 mg PO BID [facility] - Labs Labs: 07/14/17 06:20 07/14/17 06:22 PT 11.4 SECONDS (9.7-12.2) 07/13/17 20:04 INR 1.0 07/13/17 20:04 APTT 29 SECONDS (21-34) 07/13/17 20:04
--- NOTE | 2017-07-14 08:36 | RAD ---
HISTORY: s/p NGT, possible intraperitoneal free air COMPARISON: 07/13/2017 FINDINGS: LUNGS: NG tube with tip extending into the distal stomach. Left basilar consolidative changes with small left pleural effusion. Mild venous congestion. Right peritracheal airspace opacity may represent prominent vasculature. PLEURA: As above. CARDIOVASCULAR: Cardiomegaly. Calcification at the aortic knob. OSSEOUS STRUCTURES: Degenerative changes in the spine and shoulders. VISUALIZED UPPER ABDOMEN: Normal. OTHER FINDINGS: None. IMPRESSION: NG tube with tip extending into the distal stomach. Left basilar consolidative changes with small left pleural effusion. Mild venous congestion. Right peritracheal airspace opacity may represent prominent vasculature.
[2017-07-14 08:40] LABS: NEUTROPHIL 69 % (50-75); TOTAL CELLS COUNTED 100
--- NOTE | 2017-07-14 09:40 | CP.PCM.PN ---
<RodolfolinnBuzz mancia - Last Filed: 07/14/17 09:36> Subjective - Date & Time of Evaluation Date of Evaluation: 07/14/17 Time of Evaluation: 09:36 - Subjective Subjective: Surgery: Dr. Boyce Pt seen and examined. Pt has abd pain, most prominent in the upper quadrants. Objective - Vital Signs/Intake and Output Vital Signs (last 24 hours): Temp Pulse Resp BP Pulse Ox 97.9 F 109 H 30 H 139/66 97 07/14/17 00:30 07/14/17 07:50 07/14/17 07:50 07/14/17 06:57 07/14/17 07:50 Intake and Output: 07/14/17 07/14/17 06:59 18:59 Intake Total 300 100 Output Total 250 0 Balance 50 100 - Medications Medications: Current Medications Amlodipine Besylate (Norvasc) 10 mg PO DAILY [facility] Ascorbic Acid (Vitamin C 250 Mg Tab) 250 mg PO DAILY [facility] Benzocaine/Menthol (Cepacol Sore Throat) 1 love MT Q2 PRN PRN Reason: Sore Throat Clopidogrel Bisulfate (Plavix) 75 mg PO DAILY [facility] Cyproheptadine HCl (Periactin) 4 mg PO BID [facility] Donepezil HCl (Aricept) 10 mg PO HS [facility] Last Admin: 07/13/17 22:30 Dose: Not Given Ferrous Sulfate (Feosol) 325 mg PO Q12H [facility] Last Admin: 07/14/17 06:47 Dose: Not Given Gemfibrozil (Lopid) 600 mg PO BID [facility] Home Med (Fesoterodine Fumarate [Toviaz]) 8 mg PO DAILY [facility] Acetaminophen 1,000 mg/ (Miscellaneous) 100 mls @ 400 mls/hr IV Q6 PRN PRN Reason: Pain, moderate (4-7) Stop: 07/14/17 16:35 Last Admin: 07/13/17 17:40 Dose: 100 mls Sodium Bicarbonate 150 meq/ (Dextrose) 1,150 mls @ 100 mls/hr IV .[id number] [facility] Last Admin: 07/14/17 03:58 Dose: 100 mls/hr Lactated Ringer's (Lactated Ringer's) 1,000 mls @ 125 mls/hr IV .Q8H [facility] Last Admin: 07/14/17 06:57 Dose: Not Given Ciprofloxacin (Cipro 400mg/200ml Dsw) 400 mg in 200 mls @ 133 mls/hr IVPB Q12H [facility] Piperacillin Sod/Tazobactam Sod (Zosyn 2.25 Gm Iv Premix) 2.25 gm in 50 mls @ 100 mls/hr IVPB Q6H [facility] Vancomycin/Sodium Chloride (Vancomycin 1 Gm/Ns 200 Ml) 1 gm in 200 mls @ 133.333 mls/hr IVPB Q24H [facility] Stop: 07/19/17 11:01 Insulin Human Regular (Novolin R) 0 unit SC ACHS [facility] PRN Reason: Protocol Last Admin: 07/13/17 22:38 Dose: Not Given Latanoprost (Xalatan Opht) 0 ml OU HS [facility] Last Admin: 07/14/17 00:03 Dose: 1 ml Levothyroxine Sodium (Synthroid) 50 mcg PO DAILY@0630 [facility] Last Admin: 07/14/17 07:00 Dose: Not Given Meclizine HCl (Antivert) 12.5 mg PO TID [facility] Metoprolol Succinate (Toprol Xl) 100 mg PO DAILY [facility] Morphine Sulfate (Morphine) 1 mg IV Q3 PRN PRN Reason: Pain, moderate (4-7) Morphine Sulfate (Morphine) 2 mg IVP Q3 PRN PRN Reason: Pain, severe (8-10) Last Admin: 07/14/17 06:55 Dose: 2 mg Ondansetron HCl (Zofran Inj) 4 mg IVP Q6 PRN PRN Reason: Nausea/Vomiting Pantoprazole Sodium (Protonix Ec Tab) 40 mg PO DAILY [facility] Pantoprazole Sodium (Protonix Inj) 40 mg IVP DAILY [facility] Rosuvastatin Calcium (Crestor) 10 mg PO HS [facility] Last Admin: 07/13/17 22:30 Dose: Not Given Saccharomyces Boulardii (Florastor) 250 mg PO BID [facility] - Labs Labs: 07/14/17 06:20 07/14/17 06:22 PT 11.4 SECONDS (9.7-12.2) 07/13/17 20:04 INR 1.0 07/13/17 20:04 APTT 29 SECONDS (21-34) 07/13/17 20:04 - Constitutional Appears: Other (uncomfortable) - Head Exam Head Exam: ATRAUMATIC, NORMOCEPHALIC - Eye Exam Eye Exam: EOMI - ENT Exam ENT Exam: Mucous Membranes Moist - Neck Exam Neck Exam: Full ROM - Respiratory Exam Respiratory Exam: NORMAL BREATHING PATTERN. absent: Accessory Muscle Use, Respiratory Distress - GI/Abdominal Exam GI & Abdominal Exam: Distended, Soft. absent: Firm, Guarding, Rigid, Rebound - Extremities Exam Extremities Exam: absent: Calf Tenderness, Pedal Edema - Neurological Exam Neurological Exam: Alert, Awake, Oriented x3 Assessment and Plan - Assessment and Plan (Free Text) Assessment: 82M s/p ERCP w. subcapsular/extracapsular air -UGI w. small bowel follow through to R/O duodenal perf -serial abd exams -NPO -abx -no plans for surgery at this time -will continue to follow closely -d/w attending Osbaldo PGY3 <Manohar Boyce B - Last Filed: 07/19/17 15:57> Objective - Vital Signs/Intake and Output Vital Signs (last 24 hours): Temp Pulse Resp BP Pulse Ox 97.9 F 81 39 H 105/45 L 100 07/19/17 12:00 07/19/17 14:26 07/19/17 14:26 07/19/17 14:26 07/19/17 14:26 Intake and Output: 07/19/17 07/19/17 06:59 18:59 Intake Total 566.7 Output Total 625 Balance -58.3 - Medications Medications: Current Medications Ascorbic Acid (Vitamin C 250 Mg Tab) 250 mg PO DAILY [facility] Last Admin: 07/19/17 09:17 Dose: 250 mg Benzocaine/Menthol (Cepacol Sore Throat) 1 love MT Q2 PRN PRN Reason: Sore Throat Last Admin: 07/17/17 20:25 Dose: 1 love Calcium Acetate (Phoslo) 667 mg PO TID [facility] Last Admin: 07/19/17 13:59 Dose: 667 mg Clopidogrel Bisulfate (Plavix) 75 mg PO DAILY [facility] Cyproheptadine HCl (Periactin) 4 mg PO BID [facility] Last Admin: 07/19/17 09:17 Dose: 4 mg Donepezil HCl (Aricept) 10 mg PO HS [facility] Last Admin: 07/18/17 21:19 Dose: 10 mg Ferrous Sulfate (Feosol) 325 mg PO Q12H [facility] Last Admin: 07/19/17 06:04 Dose: 325 mg Gemfibrozil (Lopid) 600 mg PO BID [facility] Last Admin: 07/19/17 09:17 Dose: 600 mg Home Med (Fesoterodine Fumarate [Toviaz]) 8 mg PO DAILY [facility] Tigecycline 50 mg/ Dextrose 100 mls @ 100 mls/hr IVPB Q12H [facility] Last Admin: 07/19/17 12:23 Dose: 100 mls/hr Metronidazole 250 mg/ (Miscellaneous) 50 mls @ 100 mls/hr IVPB Q8 [facility] Last Admin: 07/19/17 13:59 Dose: 100 mls/hr Insulin Human Regular (Novolin R) 0 unit SC ACHS [facility] PRN Reason: Protocol Last Admin: 07/19/17 12:25 Dose: 5 unit Latanoprost (Xalatan Opht) 0 ml OU HS [facility] Last Admin: 07/18/17 21:19 Dose: 2.5 ml Levothyroxine Sodium (Synthroid) 50 mcg PO DAILY@0630 [facility] Last Admin: 07/19/17 06:04 Dose: 50 mcg Meclizine HCl (Antivert) 12.5 mg PO TID [facility] Last Admin: 07/19/17 13:59 Dose: 12.5 mg Metoprolol Succinate (Toprol Xl) 100 mg PO DAILY [facility] Last Admin: 07/14/17 13:41 Dose: 100 mg Morphine Sulfate (Morphine) 0.5 mg IVP Q6H PRN PRN Reason: Pain, severe (8-10) Last Admin: 07/19/17 13:10 Dose: 0.5 mg Ondansetron HCl (Zofran Inj) 4 mg IVP Q6 PRN PRN Reason: Nausea/Vomiting Pantoprazole Sodium (Protonix Inj) 40 mg IVP DAILY [facility] Last Admin: 07/19/17 09:16 Dose: 40 mg Rosuvastatin Calcium (Crestor) 10 mg PO HS [facility] Last Admin: 07/18/17 21:19 Dose: 10 mg Saccharomyces Boulardii (Florastor) 250 mg PO BID [facility] Last Admin: 07/19/17 09:18 Dose: 250 mg - Labs Labs: 07/19/17 06:45 07/19/17 06:45 PT 14.3 SECONDS (9.7-12.2) H 07/16/17 04:00 INR 1.3 07/16/17 04:00 APTT 29 SECONDS (21-34) 07/13/17 20:04 Attending/Attestation - Attestation I have personally seen and examined this patient.: Yes I have fully participated in the care of the patient.: Yes I have reviewed all pertinent clinical information, including history, physical exam and plan: Yes Notes (Text): Pt was seen and examined at bedside Agree with above note and assessment Pt with free intra peritoneal air s/p ERCP and stent removal c/o abdominal pain and mild tenderness No peritoneal signs IV antibiotics Upper GI series to r/o duodenal perforation No need for any surgical intervention at present if Upper GI is normal C/w current mx Plan d.w pt in detail Risk and benefit explained in detail
[2017-07-14] MEDS: Saccharomyces Boulardi 250 mg Cap PO SCH ×2 (09:56→17:35)
[2017-07-14] MEDS ORDERED: Pantoprazole 40 mg EC Tab PO SCH (10:00)
[2017-07-14] MEDS ORDERED: Saccharomyces Boulardi 250 mg Cap PO SCH (10:00)
[2017-07-14] MEDS ORDERED: FESOTERODINE FUMARATE 8 MG PO SCH (10:00)
[2017-07-14] MEDS ORDERED: Metoprolol Succinate 100 mg XL Tab PO SCH ×2 (10:00)
--- NOTE | 2017-07-14 10:29 | CP.PCM.CON ---
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 History of cholangitis, K. pneumoniae bacteremia, and EUS showing impacted ampulla 10mm CBD stone s/p ERCP with CBD stent placement due to Plavix use (04/2017). Patient presented yesterday for outpatient elective ERCP (07/13) with CBD stent removal, sphincterotomy, and sludge extraction. Currently, admits to severe epigastric pain without nausea or vomiting. Nursing notes 200cc of green bilious NG output overnight with additional 200cc this morning. Nursing denies bowel movement yesterday. Prior ERCP 11/2015 Biliary papillary stenosis s/p stent placement, obstructive duodenal ulcers EUS/ERCP 04/2017 LAGA esophagitis, hiatal hernia, impacted 10mm ampullla stone s/ p CBD stent placement ERCP 07/13/17- CBD stent removal, sphincterotomy, sludge extraction Colonoscopy 10/2015 descending diverticulosis, internal hemorrhoids Family- unknown Social- on record review- no tobacco, alcohol, illicit drug use Surgery- on record review- cardiac cath 2012, right hand surgery, right knee I&D , gluteal abscess I&D 06/2017, left carotid surgery, cholecystectomy 11/2015, aortic dissection 2014 Review of Systems - Review of Systems Review of Systems: 12-point review of systems negative in setting of Alzheimer's Dementia Past Patient History - Infectious Disease Hx of Infectious Diseases: None - Tetanus Immunizations Tetanus Immunization: Unknown - Past Medical History & Family History Past Medical History?: Yes - Past Social History Smoking Status: Never Smoked Chewing Tobacco Use: No Cigar Use: No Alcohol: None Drugs: Denies Home Situation {Lives}: With Family - CARDIAC Hx Cardiac Disorders: Yes Hx Hypercholesterolemia: Yes Hx Hypertension: Yes - PULMONARY Hx Respiratory Disorders: Yes Hx Pneumonia: Yes (KLEBSIELLA PNEUMONIAE) - NEUROLOGICAL Hx Neurological Disorder: Yes HX Cerebrovascular Accident: Yes Hx Dementia: Yes Other/Comment: MEMORY DEFICIT - HEENT Hx HEENT Problems: Yes Hx Cataracts: Yes (SURGERY) - RENAL Hx Chronic Kidney Disease: No - ENDOCRINE/METABOLIC Hx Endocrine Disorders: Yes Hx Diabetes Mellitus Type 2: Yes - HEMATOLOGICAL/ONCOLOGICAL Hx Blood Disorders: No Hx Blood Transfusions: No - INTEGUMENTARY Hx Dermatological Problems: No - MUSCULOSKELETAL/RHEUMATOLOGICAL Hx Musculoskeletal Disorders: Yes Hx Arthritis: Yes (BACK, BL KNEE) Hx Back Pain: Yes Hx Falls: No Other/Comment: RIGHT HAND WEAK GRASP RESIDUAL FROM STROKE - GASTROINTESTINAL Hx Gastrointestinal Disorders: Yes (''STOMACH BACTERIA'') Hx Ulcer: Yes Other/Comment: CHOLEDOCHOLITHIASIS, CHOLANGITIS - GENITOURINARY/GYNECOLOGICAL Hx Genitourinary Disorders: No Hx Incontinence: Yes - PSYCHIATRIC Hx Psychophysiologic Disorder: No Hx Substance Use: No - SURGICAL HISTORY Hx Surgeries: Yes Hx Cataract Extraction: Yes Other/Comment: LEFT BEHIND EAR SURGERY FROM BLOOD CLOTS ,RIGHT HAND SURGERY - ANESTHESIA Hx Anesthesia: Yes Hx Anesthesia Reactions: No Hx Malignant Hyperthermia: No Meds Allergies/Adverse Reactions: Allergies Allergy/AdvReac Type Severity Reaction Status Date / Time No Known Allergies Allergy Verified 07/13/17 10:45 - Medications Medications: Current Medications Amlodipine Besylate (Norvasc) 10 mg PO DAILY [facility] Last Admin: 07/14/17 09:56 Dose: Not Given Ascorbic Acid (Vitamin C 250 Mg Tab) 250 mg PO DAILY [facility] Last Admin: 07/14/17 09:57 Dose: Not Given Benzocaine/Menthol (Cepacol Sore Throat) 1 love MT Q2 PRN PRN Reason: Sore Throat Clopidogrel Bisulfate (Plavix) 75 mg PO DAILY [facility] Cyproheptadine HCl (Periactin) 4 mg PO BID [facility] Last Admin: 07/14/17 09:56 Dose: Not Given Donepezil HCl (Aricept) 10 mg PO HS [facility] Last Admin: 07/13/17 22:30 Dose: Not Given Ferrous Sulfate (Feosol) 325 mg PO Q12H [facility] Last Admin: 07/14/17 06:47 Dose: Not Given Gemfibrozil (Lopid) 600 mg PO BID [facility] Last Admin: 07/14/17 10:03 Dose: Not Given Home Med (Fesoterodine Fumarate [Toviaz]) 8 mg PO DAILY [facility] Acetaminophen 1,000 mg/ (Miscellaneous) 100 mls @ 400 mls/hr IV Q6 PRN PRN Reason: Pain, moderate (4-7) Stop: 07/14/17 16:35 Last Admin: 07/13/17 17:40 Dose: 100 mls Sodium Bicarbonate 150 meq/ (Dextrose) 1,150 mls @ 100 mls/hr IV .[id number] [facility] Last Admin: 07/14/17 03:58 Dose: 100 mls/hr Lactated Ringer's (Lactated Ringer's) 1,000 mls @ 125 mls/hr IV .Q8H [facility] Last Admin: 07/14/17 06:57 Dose: Not Given Ciprofloxacin (Cipro 400mg/200ml Dsw) 400 mg in 200 mls @ 133 mls/hr IVPB Q12H [facility] Piperacillin Sod/Tazobactam Sod (Zosyn 2.25 Gm Iv Premix) 2.25 gm in 50 mls @ 100 mls/hr IVPB Q6H [facility] Vancomycin/Sodium Chloride (Vancomycin 1 Gm/Ns 200 Ml) 1 gm in 200 mls @ 133.333 mls/hr IVPB Q24H [facility] Stop: 07/19/17 11:01 Insulin Human Regular (Novolin R) 0 unit SC ACHS [facility] PRN Reason: Protocol Last Admin: 07/14/17 08:30 Dose: 3 unit Latanoprost (Xalatan Opht) 0 ml OU HS [facility] Last Admin: 07/14/17 00:03 Dose: 1 ml Levothyroxine Sodium (Synthroid) 50 mcg PO DAILY@0630 [facility] Last Admin: 07/14/17 07:00 Dose: Not Given Meclizine HCl (Antivert) 12.5 mg PO TID [facility] Last Admin: 07/14/17 09:56 Dose: Not Given Metoprolol Succinate (Toprol Xl) 100 mg PO DAILY [facility] Morphine Sulfate (Morphine) 1 mg IV Q3 PRN PRN Reason: Pain, moderate (4-7) Morphine Sulfate (Morphine) 2 mg IVP Q3 PRN PRN Reason: Pain, severe (8-10) Last Admin: 07/14/17 06:55 Dose: 2 mg Ondansetron HCl (Zofran Inj) 4 mg IVP Q6 PRN PRN Reason: Nausea/Vomiting Pantoprazole Sodium (Protonix Ec Tab) 40 mg PO DAILY [facility] Last Admin: 07/14/17 09:57 Dose: Not Given Pantoprazole Sodium (Protonix Inj) 40 mg IVP DAILY [facility] Last Admin: 07/14/17 09:55 Dose: 40 mg Rosuvastatin Calcium (Crestor) 10 mg PO HS [facility] Last Admin: 07/13/17 22:30 Dose: Not Given Saccharomyces Boulardii (Florastor) 250 mg PO BID [facility] Last Admin: 07/14/17 09:56 Dose: Not Given Physical Exam - Constitutional Appears: No Acute Distress, Chronically Ill, Other - Head Exam Head Exam: ATRAUMATIC, NORMOCEPHALIC - Eye Exam Eye Exam: EOMI, PERRL. absent: Scleral icterus Pupil Exam: absent: Miosis, Mydriatic, PERRL - ENT Exam ENT Exam: Mucous Membranes Moist, Normal Oropharynx - Neck Exam Neck exam: Positive for: Full Rom, Normal Inspection - Respiratory Exam Respiratory Exam: Clear to Auscultation Bilateral. absent: Rales, Rhonchi, Wheezes - Cardiovascular Exam Cardiovascular Exam: RRR, +S1, +S2. absent: Gallop, Rubs - GI/Abdominal Exam GI & Abdominal Exam: Distended, Guarding, Hypoactive Bowel Sounds, Soft, Tenderness. absent: Firm, Organomegaly, Rebound, Rigid Additional comments: diffuse tenderness to palpation, severe pain epigastric to RUQ - Extremities Exam Extremities exam: Positive for: normal inspection. Negative for: pedal edema - Neurological Exam Neurological exam: Alert - Psychiatric Exam Psychiatric exam: Normal Affect, Normal Mood - Skin Skin Exam: Dry, Intact, Normal Color, Warm Results - Vital Signs Recent Vital Signs: Last Vital Signs Temp 97.9 F 07/14/17 00:30 Pulse 109 H 07/14/17 07:50 Resp 30 H 07/14/17 07:50 BP 139/66 07/14/17 06:57 Pulse Ox 97 07/14/17 07:50 - Labs Result Diagrams: 07/14/17 06:20 07/14/17 06:22 Labs: Laboratory Results - last 24 hr 07/13/17 07/13/17 07/13/17 11:11 18:30 20:04 WBC 14.6 H D RBC 4.23 L Hgb 11.7 L Hct 35.5 MCV 83.9 MCH 27.8 MCHC 33.1 RDW 14.7 H Plt Count 284 MPV 8.4 Neut % (Auto) 90.8 H Lymph % (Auto) 4.8 L Pierce % (Auto) 3.8 Eos % (Auto) 0.2 Baso % (Auto) 0.4 Neut # 13.3 H Lymph # 0.7 L Pierce # 0.6 Eos # 0.0 Baso # 0.1 Neutrophils % (Manual) 85 H Band Neutrophils % 2 Lymphocytes % (Manual) 7 L Monocytes % (Manual) 6 Platelet Estimate Normal Anisocytosis (manual) Rouleaux Slight PT INR APTT Puncture Site pCO2 pO2 HCO3 ABG pH ABG Total CO2 ABG O2 Saturation ABG Base Excess Nj Test ABG Potassium Glucose Lactate Liter Flow Sodium Potassium Chloride Carbon Dioxide Anion Gap BUN Creatinine Est GFR ( Amer) Est GFR (Non-Af Amer) POC Glucose (mg/dL) 112 H 178 H Random Glucose Hemoglobin A1c Calcium Phosphorus Magnesium Total Bilirubin AST ALT Alkaline Phosphatase Total Creatine Kinase CK-MB (Mass) Troponin I, Quant Total Protein Albumin Globulin Albumin/Globulin Ratio Triglycerides Cholesterol LDL Cholesterol Direct HDL Cholesterol Lipase Free T4 TSH 3rd Generation Arterial Blood Potassium 07/13/17 07/13/17 07/13/17 20:04 20:04 20:04 WBC RBC Hgb Hct MCV MCH MCHC RDW Plt Count MPV Neut % (Auto) Lymph % (Auto) Pierce % (Auto) Eos % (Auto) Baso % (Auto) Neut # Lymph # Pierce # Eos # Baso # Neutrophils % (Manual) Band Neutrophils % Lymphocytes % (Manual) Monocytes % (Manual) Platelet Estimate Anisocytosis (manual) Rouleaux PT 11.4 INR 1.0 APTT 29 Puncture Site pCO2 pO2 HCO3 ABG pH ABG Total CO2 ABG O2 Saturation ABG Base Excess Nj Test ABG Potassium Glucose Lactate Liter Flow Sodium 132 Potassium 5.9 H Chloride 102 Carbon Dioxide 16 L Anion Gap 20 BUN 38 H Creatinine 1.7 H Est GFR ( Amer) 47 Est GFR (Non-Af Amer) 39 POC Glucose (mg/dL) Random Glucose 234 H Hemoglobin A1c Calcium 10.1 Phosphorus 3.2 Magnesium 1.9 Total Bilirubin 0.9 AST 53 ALT 70 Alkaline Phosphatase 105 Total Creatine Kinase 51 L CK-MB (Mass) 1.45 Troponin I, Quant < 0.0120 Total Protein 8.7 H Albumin 4.5 Globulin 4.1 H Albumin/Globulin Ratio 1.1 Triglycerides Cholesterol LDL Cholesterol Direct HDL Cholesterol Lipase Free T4 1.05 TSH 3rd Generation 0.80 Arterial Blood Potassium 07/13/17 07/13/17 07/14/17 21:04 22:06 05:30 WBC RBC Hgb Hct MCV MCH MCHC RDW Plt Count MPV Neut % (Auto) Lymph % (Auto) Pierce % (Auto) Eos % (Auto) Baso % (Auto) Neut # Lymph # Pierce # Eos # Baso # Neutrophils % (Manual) Band Neutrophils % Lymphocytes % (Manual) Monocytes % (Manual) Platelet Estimate Anisocytosis (manual) Rouleaux PT INR APTT Puncture Site Rb pCO2 26 L pO2 80 HCO3 18.6 L ABG pH 7.38 ABG Total CO2 16.2 L ABG O2 Saturation 97.4 ABG Base Excess -8.0 L Nj Test Na ABG Potassium 5.7 H Glucose 318 H Lactate 3.0 H Liter Flow 2.0 Sodium 137.0 Potassium Chloride 105.0 Carbon Dioxide Anion Gap BUN Creatinine Est GFR ( Amer) Est GFR (Non-Af Amer) POC Glucose (mg/dL) 263 H 218 H Random Glucose Hemoglobin A1c Calcium Phosphorus Magnesium Total Bilirubin AST ALT Alkaline Phosphatase Total Creatine Kinase CK-MB (Mass) Troponin I, Quant Total Protein Albumin Globulin Albumin/Globulin Ratio Triglycerides Cholesterol LDL Cholesterol Direct HDL Cholesterol Lipase Free T4 TSH 3rd Generation Arterial Blood Potassium 5.7 H 07/14/17 07/14/17 07/14/17 06:20 06:22 08:37 WBC 17.4 H RBC 4.89 Hgb 13.5 Hct 42.4 MCV 86.6 D MCH 27.7 MCHC 32.0 L RDW 15.4 H Plt Count 248 MPV 9.2 Neut % (Auto) 91.9 H Lymph % (Auto) 2.0 L Pierce % (Auto) 5.3 Eos % (Auto) 0.0 Baso % (Auto) 0.8 Neut # 16.0 H Lymph # 0.4 L Pierce # 0.9 H Eos # 0.0 Baso # 0.1 Neutrophils % (Manual) 69 Band Neutrophils % 21 H* Lymphocytes % (Manual) 6 L Monocytes % (Manual) 4 Platelet Estimate Normal Anisocytosis (manual) Slight Rouleaux PT INR APTT Puncture Site pCO2 pO2 HCO3 ABG pH ABG Total CO2 ABG O2 Saturation ABG Base Excess Nj Test ABG Potassium Glucose Lactate Liter Flow Sodium 135 Potassium 5.6 H Chloride 101 Carbon Dioxide 13 L Anion Gap 27 H BUN 33 H Creatinine 1.6 H Est GFR ( Amer) 50 Est GFR (Non-Af Amer) 42 POC Glucose (mg/dL) 281 H Random Glucose 259 H Hemoglobin A1c Calcium 10.2 Phosphorus 3.9 Magnesium 1.9 Total Bilirubin 0.9 AST 51 ALT 69 Alkaline Phosphatase 95 Total Creatine Kinase 247 H CK-MB (Mass) 4.82 H Troponin I, Quant 0.0130 Total Protein 9.0 H Albumin 4.8 Globulin 4.2 H Albumin/Globulin Ratio 1.1 Triglycerides 162 H D Cholesterol 360 H LDL Cholesterol Direct 223 H HDL Cholesterol 43 Lipase 207 Free T4 TSH 3rd Generation Arterial Blood Potassium 07/14/17 09:57 WBC RBC Hgb Hct MCV MCH MCHC RDW Plt Count MPV Neut % (Auto) Lymph % (Auto) Pierce % (Auto) Eos % (Auto) Baso % (Auto) Neut # Lymph # Pierce # Eos # Baso # Neutrophils % (Manual) Band Neutrophils % Lymphocytes % (Manual) Monocytes % (Manual) Platelet Estimate Anisocytosis (manual) Rouleaux PT INR APTT Puncture Site pCO2 pO2 HCO3 ABG pH ABG Total CO2 ABG O2 Saturation ABG Base Excess Nj Test ABG Potassium Glucose Lactate Liter Flow Sodium Potassium Chloride Carbon Dioxide Anion Gap BUN Creatinine Est GFR ( Amer) Est GFR (Non-Af Amer) POC Glucose (mg/dL) Random Glucose Hemoglobin A1c 8.3 H Calcium Phosphorus Magnesium Total Bilirubin AST ALT Alkaline Phosphatase Total Creatine Kinase CK-MB (Mass) Troponin I, Quant Total Protein Albumin Globulin Albumin/Globulin Ratio Triglycerides Cholesterol LDL Cholesterol Direct HDL Cholesterol Lipase Free T4 TSH 3rd Generation Arterial Blood Potassium Assessment & Plan - Assessment and Plan (Free Text) Assessment: 82 year old male wit history of Diabetes, Hyperlipidemia, Hypertension, Hypothyroidism, CKD Stage 3, Alzheimer's Dementia, CVA with RUE residual weakness/pain on Plavix, PUD 11/2015, and Gluteal abscess I&D 06/2017. History of cholangitis, K. pneumoniae bacteremia, and EUS showing impacted ampulla 10mm CBD stone s/p ERCP with CBD stent placement due to Plavix use (04/2017). Patient presentation for elective ERCP with admission for chest and epigastric pain status post ERCP. CT C/A/P showed showed paraesophageal/under right hemidiaphragm free air, left hepatic lobe subcapsular/extracapsular hematoma vs abscess vs seroma, and extrahepatic CBD pneumobilia. 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 Damian >primary team managing- B/L HCAP and AGMA >close monitoring for clinical deterioration <Gabriel Chang - Last Filed: 07/14/17 14:50> Meds - Medications Medications: Current Medications Amlodipine Besylate (Norvasc) 10 mg PO DAILY [facility] Last Admin: 07/14/17 09:56 Dose: Not Given Ascorbic Acid (Vitamin C 250 Mg Tab) 250 mg PO DAILY [facility] Last Admin: 07/14/17 09:57 Dose: Not Given Benzocaine/Menthol (Cepacol Sore Throat) 1 love MT Q2 PRN PRN Reason: Sore Throat Clopidogrel Bisulfate (Plavix) 75 mg PO DAILY [facility] Cyproheptadine HCl (Periactin) 4 mg PO BID [facility] Last Admin: 07/14/17 09:56 Dose: Not Given Donepezil HCl (Aricept) 10 mg PO HS [facility] Last Admin: 07/13/17 22:30 Dose: Not Given Ferrous Sulfate (Feosol) 325 mg PO Q12H [facility] Last Admin: 07/14/17 06:47 Dose: Not Given Gemfibrozil (Lopid) 600 mg PO BID [facility] Last Admin: 07/14/17 10:03 Dose: Not Given Home Med (Fesoterodine Fumarate [Toviaz]) 8 mg PO DAILY [facility] Acetaminophen 1,000 mg/ (Miscellaneous) 100 mls @ 400 mls/hr IV Q6 PRN PRN Reason: Pain, moderate (4-7) Stop: 07/14/17 16:35 Last Admin: 07/13/17 17:40 Dose: 100 mls Sodium Bicarbonate 150 meq/ (Dextrose) 1,150 mls @ 100 mls/hr IV .[id number] [facility] Last Admin: 07/14/17 03:58 Dose: 100 mls/hr Lactated Ringer's (Lactated Ringer's) 1,000 mls @ 125 mls/hr IV .Q8H [facility] Last Admin: 07/14/17 06:57 Dose: Not Given Ciprofloxacin (Cipro 400mg/200ml Dsw) 400 mg in 200 mls @ 133 mls/hr IVPB Q12H [facility] Vancomycin/Sodium Chloride (Vancomycin 1 Gm/Ns 200 Ml) 1 gm in 200 mls @ 133.333 mls/hr IVPB Q24H [facility] Stop: 07/19/17 11:01 Last Admin: 07/14/17 11:17 Dose: 133.333 mls/hr Meropenem 500 mg/ Dextrose 100 mls @ 100 mls/hr IVPB Q6 [facility] Last Admin: 07/14/17 13:34 Dose: 100 mls/hr Insulin Human Regular (Novolin R) 0 unit SC ACHS [facility] PRN Reason: Protocol Last Admin: 07/14/17 13:37 Dose: 2 unit Latanoprost (Xalatan Opht) 0 ml OU HS [facility] Last Admin: 07/14/17 00:03 Dose: 1 ml Levothyroxine Sodium (Synthroid) 50 mcg PO DAILY@0630 [facility] Last Admin: 07/14/17 07:00 Dose: Not Given Meclizine HCl (Antivert) 12.5 mg PO TID [facility] Last Admin: 07/14/17 09:56 Dose: Not Given Metoprolol Succinate (Toprol Xl) 100 mg PO DAILY [facility] Last Admin: 07/14/17 13:41 Dose: 100 mg Morphine Sulfate (Morphine) 1 mg IV Q3 PRN PRN Reason: Pain, moderate (4-7) Morphine Sulfate (Morphine) 2 mg IVP Q3 PRN PRN Reason: Pain, severe (8-10) Last Admin: 07/14/17 14:25 Dose: 2 mg Ondansetron HCl (Zofran Inj) 4 mg IVP Q6 PRN PRN Reason: Nausea/Vomiting Pantoprazole Sodium (Protonix Ec Tab) 40 mg PO DAILY [facility] Last Admin: 07/14/17 09:57 Dose: Not Given Pantoprazole Sodium (Protonix Inj) 40 mg IVP DAILY [facility] Last Admin: 07/14/17 09:55 Dose: 40 mg Rosuvastatin Calcium (Crestor) 10 mg PO HS [facility] Last Admin: 07/13/17 22:30 Dose: Not Given Saccharomyces Boulardii (Florastor) 250 mg PO BID [facility] Last Admin: 07/14/17 09:56 Dose: Not Given Results - Vital Signs Recent Vital Signs: Last Vital Signs Temp 97.9 F 07/14/17 00:30 Pulse 109 H 07/14/17 07:50 Resp 30 H 07/14/17 07:50 BP 139/66 07/14/17 06:57 Pulse Ox 97 07/14/17 07:50 - Labs Result Diagrams: 07/14/17 06:20 07/14/17 06:22 Labs: Laboratory Results - last 24 hr 07/13/17 07/13/17 07/13/17 18:30 20:04 20:04 WBC 14.6 H D RBC 4.23 L Hgb 11.7 L Hct 35.5 MCV 83.9 MCH 27.8 MCHC 33.1 RDW 14.7 H Plt Count 284 MPV 8.4 Neut % (Auto) 90.8 H Lymph % (Auto) 4.8 L Pierce % (Auto) 3.8 Eos % (Auto) 0.2 Baso % (Auto) 0.4 Neut # 13.3 H Lymph # 0.7 L Pierce # 0.6 Eos # 0.0 Baso # 0.1 Neutrophils % (Manual) 85 H Band Neutrophils % 2 Lymphocytes % (Manual) 7 L Monocytes % (Manual) 6 Platelet Estimate Normal Anisocytosis (manual) Rouleaux Slight PT 11.4 INR 1.0 APTT 29 Puncture Site pCO2 pO2 HCO3 ABG pH ABG Total CO2 ABG O2 Saturation ABG Base Excess ABG Hemoglobin ABG Carboxyhemoglobin POC ABG HHb (Measured) ABG Methemoglobin Nj Test ABG Potassium A-a O2 Difference Respiratory Index Hgb O2 Saturation Glucose Lactate Liter Flow FiO2 Sodium Potassium Chloride Carbon Dioxide Anion Gap BUN Creatinine Est GFR ( Amer) Est GFR (Non-Af Amer) POC Glucose (mg/dL) 178 H Random Glucose Hemoglobin A1c Lactic Acid Calcium Phosphorus Magnesium Total Bilirubin AST ALT Alkaline Phosphatase Total Creatine Kinase CK-MB (Mass) Troponin I, Quant Total Protein Albumin Globulin Albumin/Globulin Ratio Triglycerides Cholesterol LDL Cholesterol Direct HDL Cholesterol Lipase Free T4 TSH 3rd Generation Arterial Blood Potassium Urine Color Urine Clarity Urine pH Ur Specific Wright Urine Protein Urine Glucose (UA) Urine Ketones Urine Blood Urine Nitrate Urine Bilirubin Urine Urobilinogen Ur Leukocyte Esterase Urine WBC (Auto) Urine RBC (Auto) Influenza Typ A,B (EIA) Ur L.pneumophila Ag 07/13/17 07/13/17 07/13/17 20:04 20:04 21:04 WBC RBC Hgb Hct MCV MCH MCHC RDW Plt Count MPV Neut % (Auto) Lymph % (Auto) Pierce % (Auto) Eos % (Auto) Baso % (Auto) Neut # Lymph # Pierce # Eos # Baso # Neutrophils % (Manual) Band Neutrophils % Lymphocytes % (Manual) Monocytes % (Manual) Platelet Estimate Anisocytosis (manual) Rouleaux PT INR APTT Puncture Site pCO2 pO2 HCO3 ABG pH ABG Total CO2 ABG O2 Saturation ABG Base Excess ABG Hemoglobin ABG Carboxyhemoglobin POC ABG HHb (Measured) ABG Methemoglobin Nj Test ABG Potassium A-a O2 Difference Respiratory Index Hgb O2 Saturation Glucose Lactate Liter Flow FiO2 Sodium 132 Potassium 5.9 H Chloride 102 Carbon Dioxide 16 L Anion Gap 20 BUN 38 H Creatinine 1.7 H Est GFR ( Amer) 47 Est GFR (Non-Af Amer) 39 POC Glucose (mg/dL) 263 H Random Glucose 234 H Hemoglobin A1c Lactic Acid Calcium 10.1 Phosphorus 3.2 Magnesium 1.9 Total Bilirubin 0.9 AST 53 ALT 70 Alkaline Phosphatase 105 Total Creatine Kinase 51 L CK-MB (Mass) 1.45 Troponin I, Quant < 0.0120 Total Protein 8.7 H Albumin 4.5 Globulin 4.1 H Albumin/Globulin Ratio 1.1 Triglycerides Cholesterol LDL Cholesterol Direct HDL Cholesterol Lipase Free T4 1.05 TSH 3rd Generation 0.80 Arterial Blood Potassium Urine Color Urine Clarity Urine pH Ur Specific Wright Urine Protein Urine Glucose (UA) Urine Ketones Urine Blood Urine Nitrate Urine Bilirubin Urine Urobilinogen Ur Leukocyte Esterase Urine WBC (Auto) Urine RBC (Auto) Influenza Typ A,B (EIA) Ur L.pneumophila Ag 07/13/17 07/14/17 07/14/17 22:06 05:30 06:20 WBC 17.4 H RBC 4.89 Hgb 13.5 Hct 42.4 MCV 86.6 D MCH 27.7 MCHC 32.0 L RDW 15.4 H Plt Count 248 MPV 9.2 Neut % (Auto) 91.9 H Lymph % (Auto) 2.0 L Pierce % (Auto) 5.3 Eos % (Auto) 0.0 Baso % (Auto) 0.8 Neut # 16.0 H Lymph # 0.4 L Pierce # 0.9 H Eos # 0.0 Baso # 0.1 Neutrophils % (Manual) 69 Band Neutrophils % 21 H* Lymphocytes % (Manual) 6 L Monocytes % (Manual) 4 Platelet Estimate Normal Anisocytosis (manual) Slight Rouleaux PT INR APTT Puncture Site Rb pCO2 26 L pO2 80 HCO3 18.6 L ABG pH 7.38 ABG Total CO2 16.2 L ABG O2 Saturation 97.4 ABG Base Excess -8.0 L ABG Hemoglobin ABG Carboxyhemoglobin POC ABG HHb (Measured) ABG Methemoglobin Nj Test Na ABG Potassium 5.7 H A-a O2 Difference Respiratory Index Hgb O2 Saturation Glucose 318 H Lactate 3.0 H Liter Flow 2.0 FiO2 Sodium 137.0 Potassium Chloride 105.0 Carbon Dioxide Anion Gap BUN Creatinine Est GFR ( Amer) Est GFR (Non-Af Amer) POC Glucose (mg/dL) 218 H Random Glucose Hemoglobin A1c Lactic Acid Calcium Phosphorus Magnesium Total Bilirubin AST ALT Alkaline Phosphatase Total Creatine Kinase CK-MB (Mass) Troponin I, Quant Total Protein Albumin Globulin Albumin/Globulin Ratio Triglycerides Cholesterol LDL Cholesterol Direct HDL Cholesterol Lipase Free T4 TSH 3rd Generation Arterial Blood Potassium 5.7 H Urine Color Urine Clarity Urine pH Ur Specific Wright Urine Protein Urine Glucose (UA) Urine Ketones Urine Blood Urine Nitrate Urine Bilirubin Urine Urobilinogen Ur Leukocyte Esterase Urine WBC (Auto) Urine RBC (Auto) Influenza Typ A,B (EIA) Ur L.pneumophila Ag 07/14/17 07/14/17 07/14/17 06:22 08:37 08:47 WBC RBC Hgb Hct MCV MCH MCHC RDW Plt Count MPV Neut % (Auto) Lymph % (Auto) Pierce % (Auto) Eos % (Auto) Baso % (Auto) Neut # Lymph # Pierce # Eos # Baso # Neutrophils % (Manual) Band Neutrophils % Lymphocytes % (Manual) Monocytes % (Manual) Platelet Estimate Anisocytosis (manual) Rouleaux PT INR APTT Puncture Site pCO2 pO2 HCO3 ABG pH ABG Total CO2 ABG O2 Saturation ABG Base Excess ABG Hemoglobin ABG Carboxyhemoglobin POC ABG HHb (Measured) ABG Methemoglobin Nj Test ABG Potassium A-a O2 Difference Respiratory Index Hgb O2 Saturation Glucose Lactate Liter Flow FiO2 Sodium 135 Potassium 5.6 H Chloride 101 Carbon Dioxide 13 L Anion Gap 27 H BUN 33 H Creatinine 1.6 H Est GFR ( Amer) 50 Est GFR (Non-Af Amer) 42 POC Glucose (mg/dL) 281 H Random Glucose 259 H Hemoglobin A1c Lactic Acid Calcium 10.2 Phosphorus 3.9 Magnesium 1.9 Total Bilirubin 0.9 AST 51 ALT 69 Alkaline Phosphatase 95 Total Creatine Kinase 247 H CK-MB (Mass) 4.82 H Troponin I, Quant 0.0130 Total Protein 9.0 H Albumin 4.8 Globulin 4.2 H Albumin/Globulin Ratio 1.1 Triglycerides 162 H D Cholesterol 360 H LDL Cholesterol Direct 223 H HDL Cholesterol 43 Lipase 207 Free T4 TSH 3rd Generation Arterial Blood Potassium Urine Color Urine Clarity Urine pH Ur Specific Wright Urine Protein Urine Glucose (UA) Urine Ketones Urine Blood Urine Nitrate Urine Bilirubin Urine Urobilinogen Ur Leukocyte Esterase Urine WBC (Auto) Urine RBC (Auto) Influenza Typ A,B (EIA) Ur L.pneumophila Ag Negative 07/14/17 07/14/17 07/14/17 08:48 09:57 10:52 WBC RBC Hgb Hct MCV MCH MCHC RDW Plt Count MPV Neut % (Auto) Lymph % (Auto) Pierce % (Auto) Eos % (Auto) Baso % (Auto) Neut # Lymph # Pierce # Eos # Baso # Neutrophils % (Manual) Band Neutrophils % Lymphocytes % (Manual) Monocytes % (Manual) Platelet Estimate Anisocytosis (manual) Rouleaux PT INR APTT Puncture Site Rb pCO2 26 L pO2 77 L HCO3 22.1 ABG pH 7.47 H ABG Total CO2 19.7 L ABG O2 Saturation 98.1 H ABG Base Excess -3.6 L ABG Hemoglobin 11.2 L ABG Carboxyhemoglobin 2.1 H POC ABG HHb (Measured) 1.8 ABG Methemoglobin 1.1 Nj Test Na ABG Potassium A-a O2 Difference 83.0 Respiratory Index 1.1 Hgb O2 Saturation 95.1 Glucose Lactate Liter Flow 2.0 FiO2 27.0 Sodium Potassium Chloride Carbon Dioxide Anion Gap BUN Creatinine Est GFR ( Amer) Est GFR (Non-Af Amer) POC Glucose (mg/dL) Random Glucose Hemoglobin A1c 8.3 H Lactic Acid Calcium Phosphorus Magnesium Total Bilirubin AST ALT Alkaline Phosphatase Total Creatine Kinase CK-MB (Mass) Troponin I, Quant Total Protein Albumin Globulin Albumin/Globulin Ratio Triglycerides Cholesterol LDL Cholesterol Direct HDL Cholesterol Lipase Free T4 TSH 3rd Generation Arterial Blood Potassium Urine Color Urine Clarity Urine pH Ur Specific Wright Urine Protein Urine Glucose (UA) Urine Ketones Urine Blood Urine Nitrate Urine Bilirubin Urine Urobilinogen Ur Leukocyte Esterase Urine WBC (Auto) Urine RBC (Auto) Influenza Typ A,B (EIA) Negative for flu a/b Ur L.pneumophila Ag 07/14/17 07/14/17 07/14/17 11:23 11:23 11:39 WBC RBC Hgb Hct MCV MCH MCHC RDW Plt Count MPV Neut % (Auto) Lymph % (Auto) Pierce % (Auto) Eos % (Auto) Baso % (Auto) Neut # Lymph # Pierce # Eos # Baso # Neutrophils % (Manual) Band Neutrophils % Lymphocytes % (Manual) Monocytes % (Manual) Platelet Estimate Anisocytosis (manual) Rouleaux PT INR APTT Puncture Site pCO2 pO2 HCO3 ABG pH ABG Total CO2 ABG O2 Saturation ABG Base Excess ABG Hemoglobin ABG Carboxyhemoglobin POC ABG HHb (Measured) ABG Methemoglobin Nj Test ABG Potassium A-a O2 Difference Respiratory Index Hgb O2 Saturation Glucose Lactate Liter Flow FiO2 Sodium Potassium Chloride Carbon Dioxide Anion Gap BUN Creatinine Est GFR ( Amer) Est GFR (Non-Af Amer) POC Glucose (mg/dL) 221 H Random Glucose Hemoglobin A1c Lactic Acid 2.2 H Calcium Phosphorus Magnesium Total Bilirubin AST ALT Alkaline Phosphatase Total Creatine Kinase CK-MB (Mass) Troponin I, Quant Total Protein Albumin Globulin Albumin/Globulin Ratio Triglycerides Cholesterol LDL Cholesterol Direct HDL Cholesterol Lipase Free T4 TSH 3rd Generation Arterial Blood Potassium Urine Color Yellow Urine Clarity Clear Urine pH 5.0 Ur Specific Wright 1.020 Urine Protein 2+ H Urine Glucose (UA) 2+ H Urine Ketones Negative Urine Blood Negative Urine Nitrate Negative Urine Bilirubin Negative Urine Urobilinogen Normal Ur Leukocyte Esterase Neg Urine WBC (Auto) 1 Urine RBC (Auto) < 1 Influenza Typ A,B (EIA) Ur L.pneumophila Ag Attending/Attestation - Attestation I have personally seen and examined this patient.: Yes I have fully participated in the care of the patient.: Yes I have reviewed all pertinent clinical information: Yes Notes (Text): 07/14/17 14:33 I have seen and examined patient with GI fellow. Agree with above documentation with the following additions. In brief, this is a 82 year old male with history of DM, HTN, hyperlipidemia, CKD, dementia, CVA on plavix, gluteal abscess, cholangitis s/p CBD stent placement in April who presented to hospital for elective ERCP for biliary stent removal. He underwent procedure with stent removal and extended sphincterotomy yesterday but post procedure course was complicated by development of abdominal pain, dyspnea, and altered mental status and was admitted to hospital. He currently endorses severe epigastric abdominal pain but denies nausea, vomiting, fever/chills, or diarrhea. On arrival to critical care unit, he had NGT placed which has drained approximately 400 cc of bilious output. DM / HTN Hyperlipidemia CKD Dementia CVA on plavix History of cholangitis s/p CBD stent placement and removal yesterday with sphincterotomy - complicated by development of severe sepsis posing threat to patient life CT imaging reviewed by me showing small amount of free air under right diaphragm , hepatic subcapsular hematoma/fluid collection, pneumobilia - features secondary to suspected guidewire perforation of intrahepatic biliary tree Pneumonia - Continue with broad spectrum antibiotic therapy as per ID - Continue with bicarbonate infusion given severe metabolic acidosis - NPO, monitor NGT output - Follow up surgical recommendations - Serial abdominal examinations - Patient may require IR guided drainage if signs of persistent sepsis given potential development of infected biloma - Will continue to monitor patient clinical course. Case was discussed with hospitalist, warp knit operator, and surgical teams.
[2017-07-14] MEDS ORDERED: Piperacill/Tazo 2.25gm in Dex 2.25 GM/50 ML BAG IVPB SCH (10:30)
[2017-07-14 10:55] LABS: ARTERIAL BLOOD HGB O2 SAT 95.1 % (95.0-98.0); CARBOXYHEMOGLOBIN 2.1 % (0.5-1.5); DRAW SITE RB; HHB 1.8 % (0.0-5.0); METHEMOGLOBIN 1.1 % (0.0-3.0)
[2017-07-14] MEDS: Ciprofloxacin 400mg/200ml D5W 400 MG/200 ML BAG IVPB SCH ×2 (11:00→19:59)
[2017-07-14] MEDS: Vancomycin 1 gm/NS 200 ml 1 GM/200 ML BAG IVPB SCH (11:17)
--- NOTE | 2017-07-14 11:24 | CP.PCM.CON ---
History of Present Illness - History of Present Illness History of Present Illness: 82 years old male with hx of CVA, DM, Gluteal Abscess Dx on his last admission on 06/24/17, ERCP with stent placement in 11/2015 after Cholecyctectomy. He is here for an elective ERCP for removal of the Stent. A CORPORATE GIVING MANAGER was called after the Stent removal , where the patient complained of abdominal pain radiating to the right shoulder. CT chest done at that time suggested possible free air below the right diaphragm. CT of Abdomen/pelvis was ordered and the patient was transferred to the ICU for closer monitoring. ID consulted for possible sepsis / pneumonia PMH: DM II: HTN; CVA 2013; GERD; gluteal [id number] (MRSA) on 06/27/17; Vertigo; Dementia; Hypothyroidism; gallstones s/p ERCP with Biliary stent placement 12/06/2015; Cardiac Cath in 2013; Glaucoma; CKD; Biliary Stent removal 07/13/17; Cardio Cath 2012 PSH: Cholecystectomy; Left carotid Surgery; Right hand surgery; Biliary stent placement and removal SH: Non smoker; No illegal drug use; no Alcohol use; aLive with ; walks with a cane. FH: States, No known family history Allergies: NKDA Medication: Glipizine 2.5 mg PO ACB, Tradjenta 5 mg PO daily, Amlodipine 10 mg PO daily, Metoprolol XL 100 mg PO daily, Valsartan 320 mg PO daily, Lopid 600 mg PO BID, Lipitor 80 mg PO HS, ASA 81 mg PO daily, Plavix 75 mg PO daily, Cipro 250 mg PO Q12H, Bactrim 800/160 mg PO BID, Ferrous Sulfate 325 mg PO Q12H , Levothyroxine 50 mcg PO daily, Aricept 10 mg PO daily, Antivert 12.5 mg PO TID , Toviaz 8 mg ER PO daily, Protonix 40 mg PO daily, Ascorbic Acid 250 mg PO daily, CyporoHeptadine 4 mg PO BID, Baclofen 10 mg PO BID. Review of Systems - Review of Systems Systems not reviewed;Unavailable: Acuity of Condition - Constitutional Constitutional: Chills - EENT Eyes: absent: As Per HPI, Blind Spots, Blurred Vision, Change in Vision, Decreased Night Vision, Diplopia, Discharge, Dry Eye, Exophthalmos, Floaters, Irritation, Itchy Eyes, Loss of Peripheral Vision, Pain, Photophobia, Requires Corrective Lenses, Sees Flashes, Spots in Vision, Tunnel Vision, Other Visual Disturbances, Loss of Vision, Other Ears: absent: As Per HPI, Decreased Hearing, Ear Discharge, Ear Pain, Tinnitus, Abnormal Hearing, Disequilibrium, Dizziness, Other Nose/Mouth/Throat: absent: As Per HPI, Epistaxis, Nasal Congestion, Nasal Discharge, Nasal Obstruction, Nasal Trauma, Nose Pain, Post Nasal Drip, Sinus Pain, Sinus Pressure, Bleeding Gums, Change in Voice, Dental Pain, Dry Mouth, Dysphagia, Halitosis, Hoarsness, Lip Swelling, Mouth Lesions, Mouth Pain, Odynophagia, Sore Throat, Throat Swelling, Tongue Swelling, Facial Pain, Neck Pain, Neck Mass, Other - Cardiovascular Cardiovascular: As Per HPI - Respiratory Respiratory: As Per HPI, Cough, Dyspnea - Gastrointestinal Gastrointestinal: As Per HPI - Genitourinary Genitourinary: absent: As Per HPI, Change in Urinary Stream, Difficulty Urinating, Dysuria, Flank Pain, Hematuria, Pyuria, Nocturia, Urinary Incontinence, Urinary Frequency, Urinary Hesitance, Urinary Urgency, Voiding Freq/Small Amts, Freq UTI, Hx Renal/Bladder Calculi, Hx /Renal Surgery, Bladder Distension, Other - Musculoskeletal Musculoskeletal: absent: As Per HPI, Abnormal Gait, Arthralgias, Atrophy, Back Pain, Deformity, Joint Swelling, Limited Range of Motion, Loss of Height, Muscle Cramps, Muscle Weakness, Myalgias, Neck Pain, Numbness, Radiating Pain into Limb, Stiffness, Tingling, Other - Integumentary Integumentary: absent: As Per HPI, Acne, Alopecia, Bleeding Lesions, Change in Hair, Change in Nails, Change in Pigmentation, Changing Lesions, Dry Skin, Erythema, Furuncle, Hirsutism, Lesions, New Lesions, Non-Healing Lesions, Photosensitivity, Pruritus, Rash, Skin Pain, Skin Ulcer, Sores, Striae, Swelling , Unusual Bruising, Wounds, Jaundice, Other - Neurological Neurological: absent: As Per HPI, Abnormal Gait, Abnormal Hearing, Abnormal Movements, Abnormal Speech, Behavioral Changes, Burning Sensations, Confusion, Convulsions, Disequilibrium, Dizziness, Numbness, Focal Weakness, Frequent Falls , Headaches, Lack of Coordination, Loss of Vision, Memory Loss, Paresthesias, Radicular Pain, Restless Legs, Sensory Deficit, Syncope, Tingling, Tremor, Vertigo, Weakness, Other Visual Disturbances, Other - Psychiatric Psychiatric: absent: As Per HPI, Abnormal Sleep Pattern, Anhedonia, Anxiety, Auditory Hallucinations, Behavioral Changes, Change in Appetite, Change in Libido, Confusion, Depression, Difficulty Concentrating, Hallucinations, Homicidal Ideation, Hopelessness, Irritability, Memory Loss, Mood Swings, Panic Attacks, Paranoia, Suicidal Ideation, Visual Hallucinations, Tactile Hallucinations, Other - Endocrine Endocrine: absent: As Per HPI, Change in Body Appearance, Change in Libido, Cold Intolorance, Deepening of Voice, Excessive Sweating, Fatigue, Flushing, Heat Intolorance, Increase in Ring/Shoe/Hat Size, Palpitations, Polydipsia, Polyphagia, Polyuria, Other - Hematologic/Lymphatic Hematologic: absent: As Per HPI, Easy Bleeding, Easy Bruising, Lymphadenopathy, Other Past Patient History - Infectious Disease Hx of Infectious Diseases: None - Tetanus Immunizations Tetanus Immunization: Unknown - Past Medical History & Family History Past Medical History?: Yes - Past Social History Smoking Status: Never Smoked Chewing Tobacco Use: No Cigar Use: No Alcohol: None Drugs: Denies Home Situation {Lives}: With Family - CARDIAC Hx Cardiac Disorders: Yes Hx Hypercholesterolemia: Yes Hx Hypertension: Yes - PULMONARY Hx Respiratory Disorders: Yes Hx Pneumonia: Yes (KLEBSIELLA PNEUMONIAE) - NEUROLOGICAL Hx Neurological Disorder: Yes HX Cerebrovascular Accident: Yes Hx Dementia: Yes Other/Comment: MEMORY DEFICIT - HEENT Hx HEENT Problems: Yes Hx Cataracts: Yes (SURGERY) - RENAL Hx Chronic Kidney Disease: No - ENDOCRINE/METABOLIC Hx Endocrine Disorders: Yes Hx Diabetes Mellitus Type 2: Yes - HEMATOLOGICAL/ONCOLOGICAL Hx Blood Disorders: No Hx Blood Transfusions: No - INTEGUMENTARY Hx Dermatological Problems: No - MUSCULOSKELETAL/RHEUMATOLOGICAL Hx Musculoskeletal Disorders: Yes Hx Arthritis: Yes (BACK, BL KNEE) Hx Back Pain: Yes Hx Falls: No Other/Comment: RIGHT HAND WEAK GRASP RESIDUAL FROM STROKE - GASTROINTESTINAL Hx Gastrointestinal Disorders: Yes (''STOMACH BACTERIA'') Hx Ulcer: Yes Other/Comment: CHOLEDOCHOLITHIASIS, CHOLANGITIS - GENITOURINARY/GYNECOLOGICAL Hx Genitourinary Disorders: No Hx Incontinence: Yes - PSYCHIATRIC Hx Psychophysiologic Disorder: No Hx Substance Use: No - SURGICAL HISTORY Hx Surgeries: Yes Hx Cataract Extraction: Yes Other/Comment: LEFT BEHIND EAR SURGERY FROM BLOOD CLOTS ,RIGHT HAND SURGERY - ANESTHESIA Hx Anesthesia: Yes Hx Anesthesia Reactions: No Hx Malignant Hyperthermia: No Meds Allergies/Adverse Reactions: Allergies Allergy/AdvReac Type Severity Reaction Status Date / Time No Known Allergies Allergy Verified 07/13/17 10:45 - Medications Medications: Current Medications Amlodipine Besylate (Norvasc) 10 mg PO DAILY [facility] Last Admin: 07/14/17 09:56 Dose: Not Given Ascorbic Acid (Vitamin C 250 Mg Tab) 250 mg PO DAILY [facility] Last Admin: 07/14/17 09:57 Dose: Not Given Benzocaine/Menthol (Cepacol Sore Throat) 1 love MT Q2 PRN PRN Reason: Sore Throat Clopidogrel Bisulfate (Plavix) 75 mg PO DAILY [facility] Cyproheptadine HCl (Periactin) 4 mg PO BID [facility] Last Admin: 07/14/17 09:56 Dose: Not Given Donepezil HCl (Aricept) 10 mg PO HS [facility] Last Admin: 07/13/17 22:30 Dose: Not Given Ferrous Sulfate (Feosol) 325 mg PO Q12H [facility] Last Admin: 07/14/17 06:47 Dose: Not Given Gemfibrozil (Lopid) 600 mg PO BID [facility] Last Admin: 07/14/17 10:03 Dose: Not Given Home Med (Fesoterodine Fumarate [Toviaz]) 8 mg PO DAILY [facility] Acetaminophen 1,000 mg/ (Miscellaneous) 100 mls @ 400 mls/hr IV Q6 PRN PRN Reason: Pain, moderate (4-7) Stop: 07/14/17 16:35 Last Admin: 07/13/17 17:40 Dose: 100 mls Sodium Bicarbonate 150 meq/ (Dextrose) 1,150 mls @ 100 mls/hr IV .[id number] [facility] Last Admin: 07/14/17 03:58 Dose: 100 mls/hr Lactated Ringer's (Lactated Ringer's) 1,000 mls @ 125 mls/hr IV .Q8H [facility] Last Admin: 07/14/17 06:57 Dose: Not Given Ciprofloxacin (Cipro 400mg/200ml Dsw) 400 mg in 200 mls @ 133 mls/hr IVPB Q12H [facility] Piperacillin Sod/Tazobactam Sod (Zosyn 2.25 Gm Iv Premix) 2.25 gm in 50 mls @ 100 mls/hr IVPB Q6H [facility] Vancomycin/Sodium Chloride (Vancomycin 1 Gm/Ns 200 Ml) 1 gm in 200 mls @ 133.333 mls/hr IVPB Q24H [facility] Stop: 07/19/17 11:01 Insulin Human Regular (Novolin R) 0 unit SC ACHS [facility] PRN Reason: Protocol Last Admin: 07/14/17 08:30 Dose: 3 unit Latanoprost (Xalatan Opht) 0 ml OU HS [facility] Last Admin: 07/14/17 00:03 Dose: 1 ml Levothyroxine Sodium (Synthroid) 50 mcg PO DAILY@0630 [facility] Last Admin: 07/14/17 07:00 Dose: Not Given Meclizine HCl (Antivert) 12.5 mg PO TID [facility] Last Admin: 07/14/17 09:56 Dose: Not Given Metoprolol Succinate (Toprol Xl) 100 mg PO DAILY [facility] Morphine Sulfate (Morphine) 1 mg IV Q3 PRN PRN Reason: Pain, moderate (4-7) Morphine Sulfate (Morphine) 2 mg IVP Q3 PRN PRN Reason: Pain, severe (8-10) Last Admin: 07/14/17 06:55 Dose: 2 mg Ondansetron HCl (Zofran Inj) 4 mg IVP Q6 PRN PRN Reason: Nausea/Vomiting Pantoprazole Sodium (Protonix Ec Tab) 40 mg PO DAILY [facility] Last Admin: 07/14/17 09:57 Dose: Not Given Pantoprazole Sodium (Protonix Inj) 40 mg IVP DAILY [facility] Last Admin: 07/14/17 09:55 Dose: 40 mg Rosuvastatin Calcium (Crestor) 10 mg PO HS [facility] Last Admin: 07/13/17 22:30 Dose: Not Given Saccharomyces Boulardii (Florastor) 250 mg PO BID [facility] Last Admin: 07/14/17 09:56 Dose: Not Given Physical Exam - Constitutional Appears: Cachectic, Chronically Ill - Head Exam Head Exam: ATRAUMATIC, NORMOCEPHALIC - Eye Exam Eye Exam: absent: Scleral icterus - ENT Exam ENT Exam: Mucous Membranes Dry, Normal External Ear Exam - Neck Exam Neck exam: Negative for: Lymphadenopathy - Respiratory Exam Respiratory Exam: Decreased Breath Sounds, Rhonchi - Cardiovascular Exam Cardiovascular Exam: REGULAR RHYTHM - GI/Abdominal Exam GI & Abdominal Exam: Diminished Bowel Sounds, Distended, Guarding, Soft. absent : Rebound, Rigid - Rectal Exam Rectal Exam: Deferred - Exam Exam: NORMAL INSPECTION - Extremities Exam Extremities exam: Negative for: pedal edema - Back Exam Back exam: absent: CVA tenderness (L), CVA tenderness (R) - Neurological Exam Neurological exam: Alert, CN II-XII Intact, Oriented x3, Reflexes Normal - Psychiatric Exam Psychiatric exam: Normal Mood - Skin Skin Exam: Dry, Intact Results - Vital Signs Recent Vital Signs: Last Vital Signs Temp 97.9 F 07/14/17 00:30 Pulse 109 H 07/14/17 07:50 Resp 30 H 07/14/17 07:50 BP 139/66 07/14/17 06:57 Pulse Ox 97 07/14/17 07:50 - Labs Result Diagrams: 07/14/17 06:20 07/14/17 06:22 Labs: Laboratory Results - last 24 hr 07/13/17 07/13/17 07/13/17 18:30 20:04 20:04 WBC 14.6 H D RBC 4.23 L Hgb 11.7 L Hct 35.5 MCV 83.9 MCH 27.8 MCHC 33.1 RDW 14.7 H Plt Count 284 MPV 8.4 Neut % (Auto) 90.8 H Lymph % (Auto) 4.8 L [place] % (Auto) 3.8 Eos % (Auto) 0.2 Baso % (Auto) 0.4 Neut # 13.3 H Lymph # 0.7 L [place] # 0.6 Eos # 0.0 Baso # 0.1 Neutrophils % (Manual) 85 H Band Neutrophils % 2 Lymphocytes % (Manual) 7 L Monocytes % (Manual) 6 Platelet Estimate Normal Anisocytosis (manual) Rouleaux Slight PT 11.4 INR 1.0 APTT 29 Puncture Site pCO2 pO2 HCO3 ABG pH ABG Total CO2 ABG O2 Saturation ABG Base Excess ABG Hemoglobin ABG Carboxyhemoglobin POC ABG HHb (Measured) ABG Methemoglobin Nj Test ABG Potassium A-a O2 Difference Respiratory Index Hgb O2 Saturation Glucose Lactate Liter Flow FiO2 Sodium Potassium Chloride Carbon Dioxide Anion Gap BUN Creatinine Est GFR ( Amer) Est GFR (Non-Af Amer) POC Glucose (mg/dL) 178 H Random Glucose Hemoglobin A1c Calcium Phosphorus Magnesium Total Bilirubin AST ALT Alkaline Phosphatase Total Creatine Kinase CK-MB (Mass) Troponin I, Quant Total Protein Albumin Globulin Albumin/Globulin Ratio Triglycerides Cholesterol LDL Cholesterol Direct HDL Cholesterol Lipase Free T4 TSH 3rd Generation Arterial Blood Potassium Influenza Typ A,B (EIA) 07/13/17 07/13/17 07/13/17 20:04 20:04 21:04 WBC RBC Hgb Hct MCV MCH MCHC RDW Plt Count MPV Neut % (Auto) Lymph % (Auto) [place] % (Auto) Eos % (Auto) Baso % (Auto) Neut # Lymph # [place] # Eos # Baso # Neutrophils % (Manual) Band Neutrophils % Lymphocytes % (Manual) Monocytes % (Manual) Platelet Estimate Anisocytosis (manual) Rouleaux PT INR APTT Puncture Site pCO2 pO2 HCO3 ABG pH ABG Total CO2 ABG O2 Saturation ABG Base Excess ABG Hemoglobin ABG Carboxyhemoglobin POC ABG HHb (Measured) ABG Methemoglobin Nj Test ABG Potassium A-a O2 Difference Respiratory Index Hgb O2 Saturation Glucose Lactate Liter Flow FiO2 Sodium 132 Potassium 5.9 H Chloride 102 Carbon Dioxide 16 L Anion Gap 20 BUN 38 H Creatinine 1.7 H Est GFR ( Amer) 47 Est GFR (Non-Af Amer) 39 POC Glucose (mg/dL) 263 H Random Glucose 234 H Hemoglobin A1c Calcium 10.1 Phosphorus 3.2 Magnesium 1.9 Total Bilirubin 0.9 AST 53 ALT 70 Alkaline Phosphatase 105 Total Creatine Kinase 51 L CK-MB (Mass) 1.45 Troponin I, Quant < 0.0120 Total Protein 8.7 H Albumin 4.5 Globulin 4.1 H Albumin/Globulin Ratio 1.1 Triglycerides Cholesterol LDL Cholesterol Direct HDL Cholesterol Lipase Free T4 1.05 TSH 3rd Generation 0.80 Arterial Blood Potassium Influenza Typ A,B (EIA) 07/13/17 07/14/17 07/14/17 22:06 05:30 06:20 WBC 17.4 H RBC 4.89 Hgb 13.5 Hct 42.4 MCV 86.6 D MCH 27.7 MCHC 32.0 L RDW 15.4 H Plt Count 248 MPV 9.2 Neut % (Auto) 91.9 H Lymph % (Auto) 2.0 L [place] % (Auto) 5.3 Eos % (Auto) 0.0 Baso % (Auto) 0.8 Neut # 16.0 H Lymph # 0.4 L [place] # 0.9 H Eos # 0.0 Baso # 0.1 Neutrophils % (Manual) 69 Band Neutrophils % 21 H* Lymphocytes % (Manual) 6 L Monocytes % (Manual) 4 Platelet Estimate Normal Anisocytosis (manual) Slight Rouleaux PT INR APTT Puncture Site Rb pCO2 26 L pO2 80 HCO3 18.6 L ABG pH 7.38 ABG Total CO2 16.2 L ABG O2 Saturation 97.4 ABG Base Excess -8.0 L ABG Hemoglobin ABG Carboxyhemoglobin POC ABG HHb (Measured) ABG Methemoglobin Nj Test Na ABG Potassium 5.7 H A-a O2 Difference Respiratory Index Hgb O2 Saturation Glucose 318 H Lactate 3.0 H Liter Flow 2.0 FiO2 Sodium 137.0 Potassium Chloride 105.0 Carbon Dioxide Anion Gap BUN Creatinine Est GFR ( Amer) Est GFR (Non-Af Amer) POC Glucose (mg/dL) 218 H Random Glucose Hemoglobin A1c Calcium Phosphorus Magnesium Total Bilirubin AST ALT Alkaline Phosphatase Total Creatine Kinase CK-MB (Mass) Troponin I, Quant Total Protein Albumin Globulin Albumin/Globulin Ratio Triglycerides Cholesterol LDL Cholesterol Direct HDL Cholesterol Lipase Free T4 TSH 3rd Generation Arterial Blood Potassium 5.7 H Influenza Typ A,B (EIA) 07/14/17 07/14/17 07/14/17 06:22 08:37 08:48 WBC RBC Hgb Hct MCV MCH MCHC RDW Plt Count MPV Neut % (Auto) Lymph % (Auto) [place] % (Auto) Eos % (Auto) Baso % (Auto) Neut # Lymph # [place] # Eos # Baso # Neutrophils % (Manual) Band Neutrophils % Lymphocytes % (Manual) Monocytes % (Manual) Platelet Estimate Anisocytosis (manual) Rouleaux PT INR APTT Puncture Site pCO2 pO2 HCO3 ABG pH ABG Total CO2 ABG O2 Saturation ABG Base Excess ABG Hemoglobin ABG Carboxyhemoglobin POC ABG HHb (Measured) ABG Methemoglobin Nj Test ABG Potassium A-a O2 Difference Respiratory Index Hgb O2 Saturation Glucose Lactate Liter Flow FiO2 Sodium 135 Potassium 5.6 H Chloride 101 Carbon Dioxide 13 L Anion Gap 27 H BUN 33 H Creatinine 1.6 H Est GFR ( Amer) 50 Est GFR (Non-Af Amer) 42 POC Glucose (mg/dL) 281 H Random Glucose 259 H Hemoglobin A1c Calcium 10.2 Phosphorus 3.9 Magnesium 1.9 Total Bilirubin 0.9 AST 51 ALT 69 Alkaline Phosphatase 95 Total Creatine Kinase 247 H CK-MB (Mass) 4.82 H Troponin I, Quant 0.0130 Total Protein 9.0 H Albumin 4.8 Globulin 4.2 H Albumin/Globulin Ratio 1.1 Triglycerides 162 H D Cholesterol 360 H LDL Cholesterol Direct 223 H HDL Cholesterol 43 Lipase 207 Free T4 TSH 3rd Generation Arterial Blood Potassium Influenza Typ A,B (EIA) Negative for flu a/b 07/14/17 07/14/17 09:57 10:52 WBC RBC Hgb Hct MCV MCH MCHC RDW Plt Count MPV Neut % (Auto) Lymph % (Auto) [place] % (Auto) Eos % (Auto) Baso % (Auto) Neut # Lymph # [place] # Eos # Baso # Neutrophils % (Manual) Band Neutrophils % Lymphocytes % (Manual) Monocytes % (Manual) Platelet Estimate Anisocytosis (manual) Rouleaux PT INR APTT Puncture Site Rb pCO2 26 L pO2 77 L HCO3 22.1 ABG pH 7.47 H ABG Total CO2 19.7 L ABG O2 Saturation 98.1 H ABG Base Excess -3.6 L ABG Hemoglobin 11.2 L ABG Carboxyhemoglobin 2.1 H POC ABG HHb (Measured) 1.8 ABG Methemoglobin 1.1 Nj Test Na ABG Potassium A-a O2 Difference 83.0 Respiratory Index 1.1 Hgb O2 Saturation 95.1 Glucose Lactate Liter Flow 2.0 FiO2 27.0 Sodium Potassium Chloride Carbon Dioxide Anion Gap BUN Creatinine Est GFR ( Amer) Est GFR (Non-Af Amer) POC Glucose (mg/dL) Random Glucose Hemoglobin A1c 8.3 H Calcium Phosphorus Magnesium Total Bilirubin AST ALT Alkaline Phosphatase Total Creatine Kinase CK-MB (Mass) Troponin I, Quant Total Protein Albumin Globulin Albumin/Globulin Ratio Triglycerides Cholesterol LDL Cholesterol Direct HDL Cholesterol Lipase Free T4 TSH 3rd Generation Arterial Blood Potassium Influenza Typ A,B (EIA) Assessment & Plan - Assessment and Plan (Free Text) Assessment: 82 year old male wit history of Diabetes, Hyperlipidemia, Hypertension, Hypothyroidism, CKD Stage 3, Alzheimer's Dementia, CVA with RUE residual weakness/pain on Plavix, PUD 11/2015, and Gluteal abscess I&D 06/2017. History of cholangitis, K. pneumoniae bacteremia, and EUS showing impacted ampulla 10mm CBD stone s/p ERCP with CBD stent placement due to Plavix use (04/2017). Patient presentation for elective ERCP with admission for chest and epigastric pain status post ERCP. CT C/A/P showed showed paraesophageal/under right hemidiaphragm free air, left hepatic lobe subcapsular/extracapsular hematoma vs abscess vs seroma, and extrahepatic CBD pneumobilia. Plan: s/p ERCP guidewire perforation of hepatic/biliary parenchyma, subtype C ( complicated by subcapsular hematoma/biloma) r/o pneumonia >NPO >broad spectrum antibiotic
[2017-07-14 11:58] LABS: RBC URINE < 1 /hpf (0-3); URINE BILIRUBIN NEGATIVE (NEGATIVE); URINE BLOOD NEGATIVE (NEGATIVE); URINE COLOR Yellow (YELLOW); URINE GLUCOSE (UA) 2+ mg/dL (Normal); URINE KETONE NEGATIVE (NEGATIVE); URINE LEUKOCYTE ESTERASE NEG Leu/uL (Negative); URINE PROTEIN 2+ mg/dL (NEGATIVE); URINE UROBILINOGEN NORMAL mg/dL (0.2-1.0); WBC URINE 1 /hpf (0-5)
[2017-07-14] MEDS: Meropenem 500 MG in Dextrose 5% In Water 100 ML IVPB SCH ×3 (13:34→23:25)
--- NOTE | 2017-07-14 14:07 | CP.PCM.PN ---
Subjective - Date & Time of Evaluation Date of Evaluation: 07/14/17 Time of Evaluation: 14:03 - Subjective Subjective: pt is asleep, comfortable lying flat.TNI are negative Objective - Vital Signs/Intake and Output Vital Signs (last 24 hours): Temp Pulse Resp BP Pulse Ox 97.9 F 109 H 30 H 139/66 97 07/14/17 00:30 07/14/17 07:50 07/14/17 07:50 07/14/17 06:57 07/14/17 07:50 Intake and Output: 07/14/17 07/14/17 06:59 18:59 Intake Total 300 100 Output Total 250 0 Balance 50 100 - Medications Medications: Current Medications Amlodipine Besylate (Norvasc) 10 mg PO DAILY [facility] Last Admin: 07/14/17 09:56 Dose: Not Given Ascorbic Acid (Vitamin C 250 Mg Tab) 250 mg PO DAILY [facility] Last Admin: 07/14/17 09:57 Dose: Not Given Benzocaine/Menthol (Cepacol Sore Throat) 1 love MT Q2 PRN PRN Reason: Sore Throat Clopidogrel Bisulfate (Plavix) 75 mg PO DAILY [facility] Cyproheptadine HCl (Periactin) 4 mg PO BID [facility] Last Admin: 07/14/17 09:56 Dose: Not Given Donepezil HCl (Aricept) 10 mg PO HS [facility] Last Admin: 07/13/17 22:30 Dose: Not Given Ferrous Sulfate (Feosol) 325 mg PO Q12H [facility] Last Admin: 07/14/17 06:47 Dose: Not Given Gemfibrozil (Lopid) 600 mg PO BID [facility] Last Admin: 07/14/17 10:03 Dose: Not Given Home Med (Fesoterodine Fumarate [Toviaz]) 8 mg PO DAILY [facility] Acetaminophen 1,000 mg/ (Miscellaneous) 100 mls @ 400 mls/hr IV Q6 PRN PRN Reason: Pain, moderate (4-7) Stop: 07/14/17 16:35 Last Admin: 07/13/17 17:40 Dose: 100 mls Sodium Bicarbonate 150 meq/ (Dextrose) 1,150 mls @ 100 mls/hr IV .[id number] [facility] Last Admin: 07/14/17 03:58 Dose: 100 mls/hr Lactated Ringer's (Lactated Ringer's) 1,000 mls @ 125 mls/hr IV .Q8H [facility] Last Admin: 07/14/17 06:57 Dose: Not Given Ciprofloxacin (Cipro 400mg/200ml Dsw) 400 mg in 200 mls @ 133 mls/hr IVPB Q12H [facility] Vancomycin/Sodium Chloride (Vancomycin 1 Gm/Ns 200 Ml) 1 gm in 200 mls @ 133.333 mls/hr IVPB Q24H [facility] Stop: 07/19/17 11:01 Last Admin: 07/14/17 11:17 Dose: 133.333 mls/hr Meropenem 500 mg/ Dextrose 100 mls @ 100 mls/hr IVPB Q6 [facility] Last Admin: 07/14/17 13:34 Dose: 100 mls/hr Insulin Human Regular (Novolin R) 0 unit SC ACHS [facility] PRN Reason: Protocol Last Admin: 07/14/17 13:37 Dose: 2 unit Latanoprost (Xalatan Opht) 0 ml OU HS [facility] Last Admin: 07/14/17 00:03 Dose: 1 ml Levothyroxine Sodium (Synthroid) 50 mcg PO DAILY@0630 [facility] Last Admin: 07/14/17 07:00 Dose: Not Given Meclizine HCl (Antivert) 12.5 mg PO TID [facility] Last Admin: 07/14/17 09:56 Dose: Not Given Metoprolol Succinate (Toprol Xl) 100 mg PO DAILY [facility] Last Admin: 07/14/17 13:41 Dose: 100 mg Morphine Sulfate (Morphine) 1 mg IV Q3 PRN PRN Reason: Pain, moderate (4-7) Morphine Sulfate (Morphine) 2 mg IVP Q3 PRN PRN Reason: Pain, severe (8-10) Last Admin: 07/14/17 06:55 Dose: 2 mg Ondansetron HCl (Zofran Inj) 4 mg IVP Q6 PRN PRN Reason: Nausea/Vomiting Pantoprazole Sodium (Protonix Ec Tab) 40 mg PO DAILY [facility] Last Admin: 07/14/17 09:57 Dose: Not Given Pantoprazole Sodium (Protonix Inj) 40 mg IVP DAILY [facility] Last Admin: 07/14/17 09:55 Dose: 40 mg Rosuvastatin Calcium (Crestor) 10 mg PO HS [facility] Last Admin: 07/13/17 22:30 Dose: Not Given Saccharomyces Boulardii (Florastor) 250 mg PO BID [facility] Last Admin: 07/14/17 09:56 Dose: Not Given - Labs Labs: 07/14/17 06:20 07/14/17 06:22 PT 11.4 SECONDS (9.7-12.2) 07/13/17 20:04 INR 1.0 07/13/17 20:04 APTT 29 SECONDS (21-34) 07/13/17 20:04 - Constitutional Appears: No Acute Distress - Head Exam Head Exam: ATRAUMATIC - Eye Exam Eye Exam: EOMI, Normal appearance - ENT Exam ENT Exam: Mucous Membranes Moist - Neck Exam Neck Exam: Full ROM - Respiratory Exam Respiratory Exam: Clear to Ausculation Bilateral - Cardiovascular Exam Cardiovascular Exam: REGULAR RHYTHM - GI/Abdominal Exam GI & Abdominal Exam: Hypoactive Bowel Sounds - Exam External exam: NORMAL EXTERNAL EXAM - Extremities Exam Extremities Exam: Full ROM - Back Exam Back Exam: NORMAL INSPECTION - Neurological Exam Neurological Exam: CN II-XII Intact - Skin Skin Exam: Normal Color Assessment and Plan - Assessment and Plan (Free Text) Assessment: Pt's chest pain appears to be non anginal. Pt had a ct showing gas/fluid subscapular and possibly extra capsular. this may be a source of his pain, but last nigh, he had reproducible pain as well. Will sigh off thank you
--- NOTE | 2017-07-14 14:43 | PCM.PROC ---
Procedures Attestation:: I certify that I have explained the specified Operation(s) or Procedure(s), risks, benefits and reasonable alternatives to the Patient and/or other person responsible. The opportunity was given to ask questions and all questions answered - Central Line Placement Right Internal Jugular Triple Lumen Catheter Aseptic technique was employed throughout the procedure: Hand Hygiene done prior to procedure, Full sterile barriers (mask, hair cover, sterile gown, sterile gloves), Full body sterile drape, Chloraprep Antiseptic: 30 second prep for IJ or SC sites CVP Time Out Performed: Yes Pt. Placed on Pulse Ox Monitor: Yes Central Line Prep: Chlorhexidine-Alcohol Combination Local Anesthesia Used: Lidocaine 1% Ultrasound Used for Placement: Yes Central Line Lumen Inserted: triple Central Line Length: 20 cm Post Procedure: Sutured in Place, Good Blood Return, All Ports Aspirated, Flushed, Capped, Sterile Dressing Applied Secured by: Suture Post procedure dressing: Gauze, Chlorhexidine disc (Biopatch) Post Procedure X-Ray: Yes Patient Tolerated Procedure: No Complications Immediate Complications: None Additional Comments: Patient tolerated well. Consent signed and placed in chart. Patient was able to verbalize risks and understood need for central line. He stated he had trouble signing due to hand and chronic shoulder issues. Consent was witnessed by nurse Moeller.
--- NOTE | 2017-07-14 15:01 | RAD ---
PROCEDURE: CHEST RADIOGRAPH, 1 VIEW HISTORY: post tlc rt jug COMPARISON: 07/14/2017 at 4:34 a.m. FINDINGS: LUNGS: No infiltrate. PLEURA: Small left pleural effusion. No right pleural effusion. No pneumothorax. CARDIOVASCULAR: New right IJ triple-lumen central venous catheter terminating in the region of the superior vena cava. Nasogastric tube again noted extending to upper abdomen. OSSEOUS STRUCTURES: No significant abnormalities. VISUALIZED UPPER ABDOMEN: Normal. OTHER FINDINGS: None. IMPRESSION: New right IJ central venous catheter without evidence of pneumothorax. Small left pleural effusion.
[2017-07-14] MEDS ORDERED: Iohexol 240 (50 ml) PO PRN (15:39)
--- NOTE | 2017-07-14 15:45 | RAD ---
PROCEDURE: HISTORY: COMPARISON: TECHNIQUE: Total fluoroscopic time utilized during the procedure: 57.7 seconds. Total dose 0.3301 seconds mGy cm squared FINDINGS: Submitted images from the current procedure: 15 Please refer to the physician's notes performing the procedure. IMPRESSION: Less than 1 hour fluoroscopic time utilized during performance of the procedure
[2017-07-14 16:14] LABS: POTASSIUM 4.2 mmol/L (3.6-5.2)
[2017-07-14 16:16] LABS: BILIRUBIN,TOTAL 1.1 mg/dL (0.2-1.3)
[2017-07-14 16:17] LABS: ALB/GLOB RATIO 1.6 (1.0-2.1); TOTAL PROTEIN 6.6 g/dL (6.3-8.3)
[2017-07-14 16:17] LABS: HEMATOCRIT 30.7 % (35.0-51.0); MEAN CORPUSCULAR HEMOGLOBIN 28.1 pg (27.0-31.0); MEAN CORPUSCULAR HGB CONC 33.5 g/dL (33.0-37.0); MEAN PLATELET VOLUME 8.5 fL (7.2-11.7); RED CELL DISTRIBUTION WIDTH 14.7 % (11.5-14.5); WHITE BLOOD COUNT 15.3 K/uL (4.8-10.8)
[2017-07-14 16:20] LABS: MEAN CELL VOLUME 83.7 fL (80.0-94.0)
--- NOTE | 2017-07-14 17:00 | CP.CCUPN ---
<Effie Vogt Noemi - Last Filed: 07/14/17 16:57> CCU Subjective - Physician Review Subjective (Free Text): Patient seen and examined at bedside. Patient says he is still having upper abdominal pain. Patient denies chest pain, shortness of breath, abdominal pain, nausea, vomiting, constipation or diarrhea. CCU Objective - Vital Signs / Intake & Output Vital Signs (Last 4 hours): Vital Signs Pulse Resp BP Pulse Ox 07/14/17 16:30 87 26 H 94 L 07/14/17 16:00 87 30 H 93 L 07/14/17 15:58 88 29 H 105/48 L 95 07/14/17 15:30 88 25 H 95 07/14/17 15:00 87 30 H 95 07/14/17 14:58 87 25 H 125/58 L 96 07/14/17 14:30 82 38 H 96 07/14/17 14:00 87 29 H 97 07/14/17 13:57 92 H 28 H 110/47 L 97 07/14/17 13:30 99 H 31 H 98 07/14/17 13:00 97 H 27 H 98 07/14/17 12:58 95 H 22 120/51 L 98 Intake and Output (Last 8hrs): Intake & Output 07/14/17 07/14/17 07/14/17 06:59 14:59 22:59 Intake Total 300 200 Output Total 250 0 Balance 50 200 Weight 135 lb 4.8 oz Intake: Intake, IV Amount 300 200 Left Hand 300 200 Oral 0 0 Output: Urine 250 0 Urine, Voided 250 0 Emesis 0 Other: # Voids Urine, Voided 120 # Bowel Movements 0 - Physical Exam Head: Positive for: Atraumatic, Normocephalic Pupils: Positive for: PERRL Extroacular Muscles: Positive for: EOMI Mouth: Positive for: Dry Respiratory/Chest: Positive for: Rhonchi. Negative for: Respiratory Distress, Accessory Muscle Use Cardiovascular: Positive for: Normal S1, S2 Abdomen: Positive for: Tenderness, Distention Lower Extremity: Negative for: Edema Neurological: Positive for: GCS=15 Skin: Positive for: Warm, Normal Color Psychiatric: Positive for: Alert. Negative for: Oriented x 3 - Medications Active Medications: Active Medications Generic Name Dose Route Start Last Admin Trade Name Freq PRN Reason Stop Dose Admin Amlodipine Besylate 10 mg 07/14/17 10:00 07/14/17 09:56 Norvasc PO Not Given DAILY [facility] Ascorbic Acid 250 mg 07/14/17 10:00 07/14/17 09:57 Vitamin C 250 Mg Tab PO Not Given DAILY [facility] Benzocaine/Menthol 1 love 07/14/17 04:24 Cepacol Sore Throat MT Q2 PRN Sore Throat Clopidogrel Bisulfate 75 mg 07/14/17 10:00 Plavix PO DAILY [facility] Cyproheptadine HCl 4 mg 07/14/17 10:00 07/14/17 09:56 Periactin PO Not Given BID [facility] Donepezil HCl 10 mg 07/13/17 22:00 07/13/17 22:30 Aricept PO Not Given HS [facility] Ferrous Sulfate 325 mg 07/13/17 18:45 07/14/17 06:47 Feosol PO Not Given Q12H [facility] Gemfibrozil 600 mg 07/14/17 10:00 07/14/17 10:03 Lopid PO Not Given BID [facility] Home Med 8 mg 07/14/17 10:00 Fesoterodine Fumarate [Toviaz] PO DAILY [facility] Sodium Bicarbonate 150 meq/ 1,150 mls @ 100 mls/hr 07/14/17 00:30 07/14/17 03 :58 Dextrose IV 100 mls/hr .[id number] [facility]INEL Administration Lactated Ringer's 1,000 mls @ 125 mls/hr 07/14/17 04:00 07/14/17 06:57 Lactated Ringer's IV Not Given .Q8H [facility]INEL Ciprofloxacin 400 mg in 200 mls @ 133 mls/hr 07/14/17 09:00 Cipro 400mg/200ml Dsw IVPB Q12H DARINEL Vancomycin/Sodium Chloride 1 gm in 200 mls @ 133.333 mls/hr 07/14/17 11:00 11:17 Vancomycin 1 Gm/Ns 200 Ml IVPB 07/19/17 11:01 133.333 mls/hr Q24H DARINEL Administration Meropenem 500 mg/ Dextrose 100 mls @ 100 mls/hr 07/14/17 13:00 07/14/17 13:34 IVPB 100 mls/hr Q6 DARINEL Administration Insulin Human Regular 0 unit 07/13/17 22:00 07/14/17 13:37 Novolin R SC 2 unit ACHS DARINEL Administration Protocol Iohexol 50 ml 07/14/17 15:39 07/14/17 16:04 Omnipaque 240 (50 Ml) PO 50 ml ONCE PRN Administration FOR CAT SCAN Latanoprost 0 ml 07/13/17 22:00 07/14/17 00:03 Xalatan Opht OU 1 ml HS DARINEL Administration Levothyroxine Sodium 50 mcg 07/14/17 06:30 07/14/17 07:00 Synthroid PO Not Given DAILY@0630 [facility] Meclizine HCl 12.5 mg 07/14/17 10:00 07/14/17 14:00 Antivert PO Not Given TID [facility] Metoprolol Succinate 100 mg 07/13/17 21:59 07/14/17 13:41 Toprol Xl PO 100 mg DAILY [facility] Administration Morphine Sulfate 1 mg 07/14/17 00:38 Morphine IV Q3 PRN Pain, moderate (4-7) Morphine Sulfate 2 mg 07/14/17 02:45 07/14/17 14:25 Morphine IVP 2 mg Q3 PRN Administration Pain, severe (8-10) Ondansetron HCl 4 mg 07/14/17 00:38 Zofran Inj IVP Q6 PRN Nausea/Vomiting Pantoprazole Sodium 40 mg 07/14/17 10:00 07/14/17 09:57 Protonix Ec Tab PO Not Given DAILY [facility] Pantoprazole Sodium 40 mg 07/14/17 10:00 07/14/17 09:55 Protonix Inj IVP 40 mg DAILY [facility]IN[facility] Administration Rosuvastatin Calcium 10 mg 07/13/17 22:00 07/13/17 22:30 Crestor PO Not Given HS [facility]INEL Saccharomyces Boulardii 250 mg 07/14/17 10:00 07/14/17 09:56 Florastor PO Not Given BID DARINEL - Patient Studies Lab Studies: Lab Studies 07/14/17 07/14/17 07/14/17 Range/Units 16:12 16:05 15:57 WBC 15.3 H (4.8-10.8) K/uL RBC 3.67 L (4.40-5.90) Mil/uL Hgb 10.3 L D (12.0-18.0) g/dL Hct 30.7 L (35.0-51.0) % MCV 83.7 D (80.0-94.0) fL MCH 28.1 (27.0-31.0) pg MCHC 33.5 (33.0-37.0) g/dL RDW 14.7 H (11.5-14.5) % Plt Count 225 (130-400) K/uL MPV 8.5 (7.2-11.7) fL Neut % (Auto) (50.0-75.0) % Lymph % (Auto) (20.0-40.0) % Newton % (Auto) (0.0-10.0) % Eos % (Auto) (0.0-4.0) % Baso % (Auto) (0.0-2.0) % Neut # (1.8-7.0) K/uL Lymph # (1.0-4.3) K/uL Newton # (0.0-0.8) K/uL Eos # (0.0-0.7) K/uL Baso # (0.0-0.2) K/uL Neutrophils % (Manual) (50-75) % Band Neutrophils % (0-2) % Lymphocytes % (Manual) (20-40) % Monocytes % (Manual) (0-10) % Platelet Estimate (NORMAL) Anisocytosis (manual) Rouleaux PT (9.7-12.2) SECONDS INR APTT (21-34) SECONDS Puncture Site pCO2 (35-45) mm/Hg pO2 (80-100) mm/Hg HCO3 (21-28) mmol/L ABG pH (7.35-7.45) ABG Total CO2 (22-28) mmol/L ABG O2 Saturation (95-98) % ABG Base Excess (-2.0-3.0) mmol/L ABG Hemoglobin (11.7-17.4) g/dL ABG Carboxyhemoglobin (0.5-1.5) % POC ABG HHb (Measured) (0.0-5.0) % ABG Methemoglobin (0.0-3.0) % Nj Test ABG Potassium (3.6-5.2) mmol/L A-a O2 Difference mm/Hg Respiratory Index Hgb O2 Saturation (95.0-98.0) % Glucose (75-110) mg/dl Lactate (0.7-2.1) mmol/L Liter Flow FiO2 % Sodium 132 (132-148) mmol/L Potassium 4.2 (3.6-5.2) mmol/L Chloride 96 L (98-107) mmol/L Carbon Dioxide 21 L (22-30) mmol/L Anion Gap 19 (10-20) BUN 40 H (9-20) mg/dL Creatinine 2.0 H (0.8-1.5) mg/dL Est GFR ( Amer) 39 Est GFR (Non-Af Amer) 32 POC Glucose (mg/dL) 253 H (65-110) mg/dL Random Glucose 231 H (75-110) mg/dL Hemoglobin A1c (4.2-6.5) % Lactic Acid (0.7-2.1) mmol/L Calcium 9.0 (8.6-10.4) mg/dl Phosphorus (2.5-4.5) mg/dL Magnesium (1.6-2.3) mg/dL Total Bilirubin 1.1 (0.2-1.3) mg/dL AST 39 (17-59) U/L ALT 52 (21-72) U/L Alkaline Phosphatase 63 (38-126) U/L Total Creatine Kinase (55-170) U/L CK-MB (Mass) (0.0-3.38) ng/mL Troponin I, Quant (0.00-0.120) ng/mL Total Protein 6.6 (6.3-8.3) g/dL Albumin 4.1 (3.5-5.0) g/dL Globulin 2.5 (2.2-3.9) gm/dL Albumin/Globulin Ratio 1.6 (1.0-2.1) Triglycerides (0-149) mg/dL Cholesterol (0-199) mg/dL LDL Cholesterol Direct (0-129) mg/dL HDL Cholesterol (30-70) mg/dL Lipase (23-300) U/L Free T4 (0.78-2.19) ng/dL TSH 3rd Generation (0.46-4.68) mIU/L Arterial Blood Potassium (3.6-5.2) mmol/L Urine Color (YELLOW) Urine Clarity (Clear) Urine pH (5.0-8.0) Ur Specific [place] (1.003-1.030) Urine Protein (NEGATIVE) mg/dL Urine Glucose (UA) (Normal) mg/dL Urine Ketones (NEGATIVE) mg/dL Urine Blood (NEGATIVE) Urine Nitrate (NEGATIVE) Urine Bilirubin (NEGATIVE) Urine Urobilinogen (0.2-1.0) mg/dL Ur Leukocyte Esterase (Negative) David/uL Urine WBC (Auto) (0-5) /hpf Urine RBC (Auto) (0-3) /hpf Influenza Typ A,B (EIA) (NEGATIVE) Ur L.pneumophila Ag (NEGATIVE) 07/14/17 07/14/17 07/14/17 Range/Units 11:39 11:23 11:23 WBC (4.8-10.8) K/uL RBC (4.40-5.90) Mil/uL Hgb (12.0-18.0) g/dL Hct (35.0-51.0) % MCV (80.0-94.0) fL MCH (27.0-31.0) pg MCHC (33.0-37.0) g/dL RDW (11.5-14.5) % Plt Count (130-400) K/uL MPV (7.2-11.7) fL Neut % (Auto) (50.0-75.0) % Lymph % (Auto) (20.0-40.0) % Newton % (Auto) (0.0-10.0) % Eos % (Auto) (0.0-4.0) % Baso % (Auto) (0.0-2.0) % Neut # (1.8-7.0) K/uL Lymph # (1.0-4.3) K/uL [place] # (0.0-0.8) K/uL Eos # (0.0-0.7) K/uL Baso # (0.0-0.2) K/uL Neutrophils % (Manual) (50-75) % Band Neutrophils % (0-2) % Lymphocytes % (Manual) (20-40) % Monocytes % (Manual) (0-10) % Platelet Estimate (NORMAL) Anisocytosis (manual) Rouleaux PT (9.7-12.2) SECONDS INR APTT (21-34) SECONDS Puncture Site pCO2 (35-45) mm/Hg pO2 (80-100) mm/Hg HCO3 (21-28) mmol/L ABG pH (7.35-7.45) ABG Total CO2 (22-28) mmol/L ABG O2 Saturation (95-98) % ABG Base Excess (-2.0-3.0) mmol/L ABG Hemoglobin (11.7-17.4) g/dL ABG Carboxyhemoglobin (0.5-1.5) % POC ABG HHb (Measured) (0.0-5.0) % ABG Methemoglobin (0.0-3.0) % Nj Test ABG Potassium (3.6-5.2) mmol/L A-a O2 Difference mm/Hg Respiratory Index Hgb O2 Saturation (95.0-98.0) % Glucose (75-110) mg/dl Lactate (0.7-2.1) mmol/L Liter Flow FiO2 % Sodium (132-148) mmol/L Potassium (3.6-5.2) mmol/L Chloride (98-107) mmol/L Carbon Dioxide (22-30) mmol/L Anion Gap (10-20) BUN (9-20) mg/dL Creatinine (0.8-1.5) mg/dL Est GFR ( Amer) Est GFR (Non-Af Amer) POC Glucose (mg/dL) 221 H (65-110) mg/dL Random Glucose (75-110) mg/dL Hemoglobin A1c (4.2-6.5) % Lactic Acid 2.2 H (0.7-2.1) mmol/L Calcium (8.6-10.4) mg/dl Phosphorus (2.5-4.5) mg/dL Magnesium (1.6-2.3) mg/dL Total Bilirubin (0.2-1.3) mg/dL AST (17-59) U/L ALT (21-72) U/L Alkaline Phosphatase (38-126) U/L Total Creatine Kinase (55-170) U/L CK-MB (Mass) (0.0-3.38) ng/mL Troponin I, Quant (0.00-0.120) ng/mL Total Protein (6.3-8.3) g/dL Albumin (3.5-5.0) g/dL Globulin (2.2-3.9) gm/dL Albumin/Globulin Ratio (1.0-2.1) Triglycerides (0-149) mg/dL Cholesterol (0-199) mg/dL LDL Cholesterol Direct (0-129) mg/dL HDL Cholesterol (30-70) mg/dL Lipase (23-300) U/L Free T4 (0.78-2.19) ng/dL TSH 3rd Generation (0.46-4.68) mIU/L Arterial Blood Potassium (3.6-5.2) mmol/L Urine Color Yellow (YELLOW) Urine Clarity Clear (Clear) Urine pH 5.0 (5.0-8.0) Ur Specific [place] 1.020 (1.003-1.030) Urine Protein 2+ H (NEGATIVE) mg/dL Urine Glucose (UA) 2+ H (Normal) mg/dL Urine Ketones Negative (NEGATIVE) mg/dL Urine Blood Negative (NEGATIVE) Urine Nitrate Negative (NEGATIVE) Urine Bilirubin Negative (NEGATIVE) Urine Urobilinogen Normal (0.2-1.0) mg/dL Ur Leukocyte Esterase Neg (Negative) David/uL Urine WBC (Auto) 1 (0-5) /hpf Urine RBC (Auto) < 1 (0-3) /hpf Influenza Typ A,B (EIA) (NEGATIVE) Ur L.pneumophila Ag (NEGATIVE) 07/14/17 07/14/17 07/14/17 Range/Units 10:52 09:57 08:48 WBC (4.8-10.8) K/uL RBC (4.40-5.90) Mil/uL Hgb (12.0-18.0) g/dL Hct (35.0-51.0) % MCV (80.0-94.0) fL MCH (27.0-31.0) pg MCHC (33.0-37.0) g/dL RDW (11.5-14.5) % Plt Count (130-400) K/uL MPV (7.2-11.7) fL Neut % (Auto) (50.0-75.0) % Lymph % (Auto) (20.0-40.0) % Newton % (Auto) (0.0-10.0) % Eos % (Auto) (0.0-4.0) % Baso % (Auto) (0.0-2.0) % Neut # (1.8-7.0) K/uL Lymph # (1.0-4.3) K/uL [place] # (0.0-0.8) K/uL Eos # (0.0-0.7) K/uL Baso # (0.0-0.2) K/uL Neutrophils % (Manual) (50-75) % Band Neutrophils % (0-2) % Lymphocytes % (Manual) (20-40) % Monocytes % (Manual) (0-10) % Platelet Estimate (NORMAL) Anisocytosis (manual) Rouleaux PT (9.7-12.2) SECONDS INR APTT (21-34) SECONDS Puncture Site Rb pCO2 26 L (35-45) mm/Hg pO2 77 L (80-100) mm/Hg HCO3 22.1 (21-28) mmol/L ABG pH 7.47 H (7.35-7.45) ABG Total CO2 19.7 L (22-28) mmol/L ABG O2 Saturation 98.1 H (95-98) % ABG Base Excess -3.6 L (-2.0-3.0) mmol/L ABG Hemoglobin 11.2 L (11.7-17.4) g/dL ABG Carboxyhemoglobin 2.1 H (0.5-1.5) % POC ABG HHb (Measured) 1.8 (0.0-5.0) % ABG Methemoglobin 1.1 (0.0-3.0) % Nj Test Na ABG Potassium (3.6-5.2) mmol/L A-a O2 Difference 83.0 mm/Hg Respiratory Index 1.1 Hgb O2 Saturation 95.1 (95.0-98.0) % Glucose (75-110) mg/dl Lactate (0.7-2.1) mmol/L Liter Flow 2.0 FiO2 27.0 % Sodium (132-148) mmol/L Potassium (3.6-5.2) mmol/L Chloride (98-107) mmol/L Carbon Dioxide (22-30) mmol/L Anion Gap (10-20) BUN (9-20) mg/dL Creatinine (0.8-1.5) mg/dL Est GFR ( Amer) Est GFR (Non-Af Amer) POC Glucose (mg/dL) (65-110) mg/dL Random Glucose (75-110) mg/dL Hemoglobin A1c 8.3 H (4.2-6.5) % Lactic Acid (0.7-2.1) mmol/L Calcium (8.6-10.4) mg/dl Phosphorus (2.5-4.5) mg/dL Magnesium (1.6-2.3) mg/dL Total Bilirubin (0.2-1.3) mg/dL AST (17-59) U/L ALT (21-72) U/L Alkaline Phosphatase (38-126) U/L Total Creatine Kinase (55-170) U/L CK-MB (Mass) (0.0-3.38) ng/mL Troponin I, Quant (0.00-0.120) ng/mL Total Protein (6.3-8.3) g/dL Albumin (3.5-5.0) g/dL Globulin (2.2-3.9) gm/dL Albumin/Globulin Ratio (1.0-2.1) Triglycerides (0-149) mg/dL Cholesterol (0-199) mg/dL LDL Cholesterol Direct (0-129) mg/dL HDL Cholesterol (30-70) mg/dL Lipase (23-300) U/L Free T4 (0.78-2.19) ng/dL TSH 3rd Generation (0.46-4.68) mIU/L Arterial Blood Potassium (3.6-5.2) mmol/L Urine Color (YELLOW) Urine Clarity (Clear) Urine pH (5.0-8.0) Ur Specific [place] (1.003-1.030) Urine Protein (NEGATIVE) mg/dL Urine Glucose (UA) (Normal) mg/dL Urine Ketones (NEGATIVE) mg/dL Urine Blood (NEGATIVE) Urine Nitrate (NEGATIVE) Urine Bilirubin (NEGATIVE) Urine Urobilinogen (0.2-1.0) mg/dL Ur Leukocyte Esterase (Negative) David/uL Urine WBC (Auto) (0-5) /hpf Urine RBC (Auto) (0-3) /hpf Influenza Typ A,B (EIA) Negative for flu a/b (NEGATIVE) Ur L.pneumophila Ag (NEGATIVE) 07/14/17 07/14/17 07/14/17 Range/Units 08:47 08:37 06:22 WBC (4.8-10.8) K/uL RBC (4.40-5.90) Mil/uL Hgb (12.0-18.0) g/dL Hct (35.0-51.0) % MCV (80.0-94.0) fL MCH (27.0-31.0) pg MCHC (33.0-37.0) g/dL RDW (11.5-14.5) % Plt Count (130-400) K/uL MPV (7.2-11.7) fL Neut % (Auto) (50.0-75.0) % Lymph % (Auto) (20.0-40.0) % [place] % (Auto) (0.0-10.0) % Eos % (Auto) (0.0-4.0) % Baso % (Auto) (0.0-2.0) % Neut # (1.8-7.0) K/uL Lymph # (1.0-4.3) K/uL [place] # (0.0-0.8) K/uL Eos # (0.0-0.7) K/uL Baso # (0.0-0.2) K/uL Neutrophils % (Manual) (50-75) % Band Neutrophils % (0-2) % Lymphocytes % (Manual) (20-40) % Monocytes % (Manual) (0-10) % Platelet Estimate (NORMAL) Anisocytosis (manual) Rouleaux PT (9.7-12.2) SECONDS INR APTT (21-34) SECONDS Puncture Site pCO2 (35-45) mm/Hg pO2 (80-100) mm/Hg HCO3 (21-28) mmol/L ABG pH (7.35-7.45) ABG Total CO2 (22-28) mmol/L ABG O2 Saturation (95-98) % ABG Base Excess (-2.0-3.0) mmol/L ABG Hemoglobin (11.7-17.4) g/dL ABG Carboxyhemoglobin (0.5-1.5) % POC ABG HHb (Measured) (0.0-5.0) % ABG Methemoglobin (0.0-3.0) % Nj Test ABG Potassium (3.6-5.2) mmol/L A-a O2 Difference mm/Hg Respiratory Index Hgb O2 Saturation (95.0-98.0) % Glucose (75-110) mg/dl Lactate (0.7-2.1) mmol/L Liter Flow FiO2 % Sodium 135 (132-148) mmol/L Potassium 5.6 H (3.6-5.2) mmol/L Chloride 101 (98-107) mmol/L Carbon Dioxide 13 L (22-30) mmol/L Anion Gap 27 H (10-20) BUN 33 H (9-20) mg/dL Creatinine 1.6 H (0.8-1.5) mg/dL Est GFR ( Amer) 50 Est GFR (Non-Af Amer) 42 POC Glucose (mg/dL) 281 H (65-110) mg/dL Random Glucose 259 H (75-110) mg/dL Hemoglobin A1c (4.2-6.5) % Lactic Acid (0.7-2.1) mmol/L Calcium 10.2 (8.6-10.4) mg/dl Phosphorus 3.9 (2.5-4.5) mg/dL Magnesium 1.9 (1.6-2.3) mg/dL Total Bilirubin 0.9 (0.2-1.3) mg/dL AST 51 (17-59) U/L ALT 69 (21-72) U/L Alkaline Phosphatase 95 (38-126) U/L Total Creatine Kinase 247 H (55-170) U/L CK-MB (Mass) 4.82 H (0.0-3.38) ng/mL Troponin I, Quant 0.0130 (0.00-0.120) ng/mL Total Protein 9.0 H (6.3-8.3) g/dL Albumin 4.8 (3.5-5.0) g/dL Globulin 4.2 H (2.2-3.9) gm/dL Albumin/Globulin Ratio 1.1 (1.0-2.1) Triglycerides 162 H D (0-149) mg/dL Cholesterol 360 H (0-199) mg/dL LDL Cholesterol Direct 223 H (0-129) mg/dL HDL Cholesterol 43 (30-70) mg/dL Lipase 207 (23-300) U/L Free T4 (0.78-2.19) ng/dL TSH 3rd Generation (0.46-4.68) mIU/L Arterial Blood Potassium (3.6-5.2) mmol/L Urine Color (YELLOW) Urine Clarity (Clear) Urine pH (5.0-8.0) Ur Specific [place] (1.003-1.030) Urine Protein (NEGATIVE) mg/dL Urine Glucose (UA) (Normal) mg/dL Urine Ketones (NEGATIVE) mg/dL Urine Blood (NEGATIVE) Urine Nitrate (NEGATIVE) Urine Bilirubin (NEGATIVE) Urine Urobilinogen (0.2-1.0) mg/dL Ur Leukocyte Esterase (Negative) David/uL Urine WBC (Auto) (0-5) /hpf Urine RBC (Auto) (0-3) /hpf Influenza Typ A,B (EIA) (NEGATIVE) Ur L.pneumophila Ag Negative (NEGATIVE) 07/14/17 07/14/17 07/13/17 Range/Units 06:20 05:30 22:06 WBC 17.4 H (4.8-10.8) K/uL RBC 4.89 (4.40-5.90) Mil/uL Hgb 13.5 (12.0-18.0) g/dL Hct 42.4 (35.0-51.0) % MCV 86.6 D (80.0-94.0) fL MCH 27.7 (27.0-31.0) pg MCHC 32.0 L (33.0-37.0) g/dL RDW 15.4 H (11.5-14.5) % Plt Count 248 (130-400) K/uL MPV 9.2 (7.2-11.7) fL Neut % (Auto) 91.9 H (50.0-75.0) % Lymph % (Auto) 2.0 L (20.0-40.0) % [place] % (Auto) 5.3 (0.0-10.0) % Eos % (Auto) 0.0 (0.0-4.0) % Baso % (Auto) 0.8 (0.0-2.0) % Neut # 16.0 H (1.8-7.0) K/uL Lymph # 0.4 L (1.0-4.3) K/uL [place] # 0.9 H (0.0-0.8) K/uL Eos # 0.0 (0.0-0.7) K/uL Baso # 0.1 (0.0-0.2) K/uL Neutrophils % (Manual) 69 (50-75) % Band Neutrophils % 21 H* (0-2) % Lymphocytes % (Manual) 6 L (20-40) % Monocytes % (Manual) 4 (0-10) % Platelet Estimate Normal (NORMAL) Anisocytosis (manual) Slight Rouleaux PT (9.7-12.2) SECONDS INR APTT (21-34) SECONDS Puncture Site Rb pCO2 26 L (35-45) mm/Hg pO2 80 (80-100) mm/Hg HCO3 18.6 L (21-28) mmol/L ABG pH 7.38 (7.35-7.45) ABG Total CO2 16.2 L (22-28) mmol/L ABG O2 Saturation 97.4 (95-98) % ABG Base Excess -8.0 L (-2.0-3.0) mmol/L ABG Hemoglobin (11.7-17.4) g/dL ABG Carboxyhemoglobin (0.5-1.5) % POC ABG HHb (Measured) (0.0-5.0) % ABG Methemoglobin (0.0-3.0) % Nj Test Na ABG Potassium 5.7 H (3.6-5.2) mmol/L A-a O2 Difference mm/Hg Respiratory Index Hgb O2 Saturation (95.0-98.0) % Glucose 318 H (75-110) mg/dl Lactate 3.0 H (0.7-2.1) mmol/L Liter Flow 2.0 FiO2 % Sodium 137.0 (132-148) mmol/L Potassium (3.6-5.2) mmol/L Chloride 105.0 (98-107) mmol/L Carbon Dioxide (22-30) mmol/L Anion Gap (10-20) BUN (9-20) mg/dL Creatinine (0.8-1.5) mg/dL Est GFR ( Amer) Est GFR (Non-Af Amer) POC Glucose (mg/dL) 218 H (65-110) mg/dL Random Glucose (75-110) mg/dL Hemoglobin A1c (4.2-6.5) % Lactic Acid (0.7-2.1) mmol/L Calcium (8.6-10.4) mg/dl Phosphorus (2.5-4.5) mg/dL Magnesium (1.6-2.3) mg/dL Total Bilirubin (0.2-1.3) mg/dL AST (17-59) U/L ALT (21-72) U/L Alkaline Phosphatase (38-126) U/L Total Creatine Kinase (55-170) U/L CK-MB (Mass) (0.0-3.38) ng/mL Troponin I, Quant (0.00-0.120) ng/mL Total Protein (6.3-8.3) g/dL Albumin (3.5-5.0) g/dL Globulin (2.2-3.9) gm/dL Albumin/Globulin Ratio (1.0-2.1) Triglycerides (0-149) mg/dL Cholesterol (0-199) mg/dL LDL Cholesterol Direct (0-129) mg/dL HDL Cholesterol (30-70) mg/dL Lipase (23-300) U/L Free T4 (0.78-2.19) ng/dL TSH 3rd Generation (0.46-4.68) mIU/L Arterial Blood Potassium 5.7 H (3.6-5.2) mmol/L Urine Color (YELLOW) Urine Clarity (Clear) Urine pH (5.0-8.0) Ur Specific [place] (1.003-1.030) Urine Protein (NEGATIVE) mg/dL Urine Glucose (UA) (Normal) mg/dL Urine Ketones (NEGATIVE) mg/dL Urine Blood (NEGATIVE) Urine Nitrate (NEGATIVE) Urine Bilirubin (NEGATIVE) Urine Urobilinogen (0.2-1.0) mg/dL Ur Leukocyte Esterase (Negative) David/uL Urine WBC (Auto) (0-5) /hpf Urine RBC (Auto) (0-3) /hpf Influenza Typ A,B (EIA) (NEGATIVE) Ur L.pneumophila Ag (NEGATIVE) 07/13/17 07/13/17 07/13/17 Range/Units 21:04 20:04 20:04 WBC (4.8-10.8) K/uL RBC (4.40-5.90) Mil/uL Hgb (12.0-18.0) g/dL Hct (35.0-51.0) % MCV (80.0-94.0) fL MCH (27.0-31.0) pg MCHC (33.0-37.0) g/dL RDW (11.5-14.5) % Plt Count (130-400) K/uL MPV (7.2-11.7) fL Neut % (Auto) (50.0-75.0) % Lymph % (Auto) (20.0-40.0) % [place] % (Auto) (0.0-10.0) % Eos % (Auto) (0.0-4.0) % Baso % (Auto) (0.0-2.0) % Neut # (1.8-7.0) K/uL Lymph # (1.0-4.3) K/uL [place] # (0.0-0.8) K/uL Eos # (0.0-0.7) K/uL Baso # (0.0-0.2) K/uL Neutrophils % (Manual) (50-75) % Band Neutrophils % (0-2) % Lymphocytes % (Manual) (20-40) % Monocytes % (Manual) (0-10) % Platelet Estimate (NORMAL) Anisocytosis (manual) Rouleaux PT (9.7-12.2) SECONDS INR APTT (21-34) SECONDS Puncture Site pCO2 (35-45) mm/Hg pO2 (80-100) mm/Hg HCO3 (21-28) mmol/L ABG pH (7.35-7.45) ABG Total CO2 (22-28) mmol/L ABG O2 Saturation (95-98) % ABG Base Excess (-2.0-3.0) mmol/L ABG Hemoglobin (11.7-17.4) g/dL ABG Carboxyhemoglobin (0.5-1.5) % POC ABG HHb (Measured) (0.0-5.0) % ABG Methemoglobin (0.0-3.0) % Nj Test ABG Potassium (3.6-5.2) mmol/L A-a O2 Difference mm/Hg Respiratory Index Hgb O2 Saturation (95.0-98.0) % Glucose (75-110) mg/dl Lactate (0.7-2.1) mmol/L Liter Flow FiO2 % Sodium 132 (132-148) mmol/L Potassium 5.9 H (3.6-5.2) mmol/L Chloride 102 (98-107) mmol/L Carbon Dioxide 16 L (22-30) mmol/L Anion Gap 20 (10-20) BUN 38 H (9-20) mg/dL Creatinine 1.7 H (0.8-1.5) mg/dL Est GFR ( Amer) 47 Est GFR (Non-Af Amer) 39 POC Glucose (mg/dL) 263 H (65-110) mg/dL Random Glucose 234 H (75-110) mg/dL Hemoglobin A1c (4.2-6.5) % Lactic Acid (0.7-2.1) mmol/L Calcium 10.1 (8.6-10.4) mg/dl Phosphorus 3.2 (2.5-4.5) mg/dL Magnesium 1.9 (1.6-2.3) mg/dL Total Bilirubin 0.9 (0.2-1.3) mg/dL AST 53 (17-59) U/L ALT 70 (21-72) U/L Alkaline Phosphatase 105 (38-126) U/L Total Creatine Kinase 51 L (55-170) U/L CK-MB (Mass) 1.45 (0.0-3.38) ng/mL Troponin I, Quant < 0.0120 (0.00-0.120) ng/mL Total Protein 8.7 H (6.3-8.3) g/dL Albumin 4.5 (3.5-5.0) g/dL Globulin 4.1 H (2.2-3.9) gm/dL Albumin/Globulin Ratio 1.1 (1.0-2.1) Triglycerides (0-149) mg/dL Cholesterol (0-199) mg/dL LDL Cholesterol Direct (0-129) mg/dL HDL Cholesterol (30-70) mg/dL Lipase (23-300) U/L Free T4 1.05 (0.78-2.19) ng/dL TSH 3rd Generation 0.80 (0.46-4.68) mIU/L Arterial Blood Potassium (3.6-5.2) mmol/L Urine Color (YELLOW) Urine Clarity (Clear) Urine pH (5.0-8.0) Ur Specific [place] (1.003-1.030) Urine Protein (NEGATIVE) mg/dL Urine Glucose (UA) (Normal) mg/dL Urine Ketones (NEGATIVE) mg/dL Urine Blood (NEGATIVE) Urine Nitrate (NEGATIVE) Urine Bilirubin (NEGATIVE) Urine Urobilinogen (0.2-1.0) mg/dL Ur Leukocyte Esterase (Negative) David/uL Urine WBC (Auto) (0-5) /hpf Urine RBC (Auto) (0-3) /hpf Influenza Typ A,B (EIA) (NEGATIVE) Ur L.pneumophila Ag (NEGATIVE) 07/13/17 07/13/17 07/13/17 Range/Units 20:04 20:04 18:30 WBC 14.6 H D (4.8-10.8) K/uL RBC 4.23 L (4.40-5.90) Mil/uL Hgb 11.7 L (12.0-18.0) g/dL Hct 35.5 (35.0-51.0) % MCV 83.9 (80.0-94.0) fL MCH 27.8 (27.0-31.0) pg MCHC 33.1 (33.0-37.0) g/dL RDW 14.7 H (11.5-14.5) % Plt Count 284 (130-400) K/uL MPV 8.4 (7.2-11.7) fL Neut % (Auto) 90.8 H (50.0-75.0) % Lymph % (Auto) 4.8 L (20.0-40.0) % [place] % (Auto) 3.8 (0.0-10.0) % Eos % (Auto) 0.2 (0.0-4.0) % Baso % (Auto) 0.4 (0.0-2.0) % Neut # 13.3 H (1.8-7.0) K/uL Lymph # 0.7 L (1.0-4.3) K/uL [place] # 0.6 (0.0-0.8) K/uL Eos # 0.0 (0.0-0.7) K/uL Baso # 0.1 (0.0-0.2) K/uL Neutrophils % (Manual) 85 H (50-75) % Band Neutrophils % 2 (0-2) % Lymphocytes % (Manual) 7 L (20-40) % Monocytes % (Manual) 6 (0-10) % Platelet Estimate Normal (NORMAL) Anisocytosis (manual) Rouleaux Slight PT 11.4 (9.7-12.2) SECONDS INR 1.0 APTT 29 (21-34) SECONDS Puncture Site pCO2 (35-45) mm/Hg pO2 (80-100) mm/Hg HCO3 (21-28) mmol/L ABG pH (7.35-7.45) ABG Total CO2 (22-28) mmol/L ABG O2 Saturation (95-98) % ABG Base Excess (-2.0-3.0) mmol/L ABG Hemoglobin (11.7-17.4) g/dL ABG Carboxyhemoglobin (0.5-1.5) % POC ABG HHb (Measured) (0.0-5.0) % ABG Methemoglobin (0.0-3.0) % Nj Test ABG Potassium (3.6-5.2) mmol/L A-a O2 Difference mm/Hg Respiratory Index Hgb O2 Saturation (95.0-98.0) % Glucose (75-110) mg/dl Lactate (0.7-2.1) mmol/L Liter Flow FiO2 % Sodium (132-148) mmol/L Potassium (3.6-5.2) mmol/L Chloride (98-107) mmol/L Carbon Dioxide (22-30) mmol/L Anion Gap (10-20) BUN (9-20) mg/dL Creatinine (0.8-1.5) mg/dL Est GFR ( Amer) Est GFR (Non-Af Amer) POC Glucose (mg/dL) 178 H (65-110) mg/dL Random Glucose (75-110) mg/dL Hemoglobin A1c (4.2-6.5) % Lactic Acid (0.7-2.1) mmol/L Calcium (8.6-10.4) mg/dl Phosphorus (2.5-4.5) mg/dL Magnesium (1.6-2.3) mg/dL Total Bilirubin (0.2-1.3) mg/dL AST (17-59) U/L ALT (21-72) U/L Alkaline Phosphatase (38-126) U/L Total Creatine Kinase (55-170) U/L CK-MB (Mass) (0.0-3.38) ng/mL Troponin I, Quant (0.00-0.120) ng/mL Total Protein (6.3-8.3) g/dL Albumin (3.5-5.0) g/dL Globulin (2.2-3.9) gm/dL Albumin/Globulin Ratio (1.0-2.1) Triglycerides (0-149) mg/dL Cholesterol (0-199) mg/dL LDL Cholesterol Direct (0-129) mg/dL HDL Cholesterol (30-70) mg/dL Lipase (23-300) U/L Free T4 (0.78-2.19) ng/dL TSH 3rd Generation (0.46-4.68) mIU/L Arterial Blood Potassium (3.6-5.2) mmol/L Urine Color (YELLOW) Urine Clarity (Clear) Urine pH (5.0-8.0) Ur Specific [place] (1.003-1.030) Urine Protein (NEGATIVE) mg/dL Urine Glucose (UA) (Normal) mg/dL Urine Ketones (NEGATIVE) mg/dL Urine Blood (NEGATIVE) Urine Nitrate (NEGATIVE) Urine Bilirubin (NEGATIVE) Urine Urobilinogen (0.2-1.0) mg/dL Ur Leukocyte Esterase (Negative) David/uL Urine WBC (Auto) (0-5) /hpf Urine RBC (Auto) (0-3) /hpf Influenza Typ A,B (EIA) (NEGATIVE) Ur L.pneumophila Ag (NEGATIVE) Laboratory Results - last 24 hr 07/13/17 07/13/17 07/13/17 18:30 20:04 20:04 WBC 14.6 H D RBC 4.23 L Hgb 11.7 L Hct 35.5 MCV 83.9 MCH 27.8 MCHC 33.1 RDW 14.7 H Plt Count 284 MPV 8.4 Neut % (Auto) 90.8 H Lymph % (Auto) 4.8 L [place] % (Auto) 3.8 Eos % (Auto) 0.2 Baso % (Auto) 0.4 Neut # 13.3 H Lymph # 0.7 L [place] # 0.6 Eos # 0.0 Baso # 0.1 Neutrophils % (Manual) 85 H Band Neutrophils % 2 Lymphocytes % (Manual) 7 L Monocytes % (Manual) 6 Platelet Estimate Normal Anisocytosis (manual) Rouleaux Slight PT 11.4 INR 1.0 APTT 29 Puncture Site pCO2 pO2 HCO3 ABG pH ABG Total CO2 ABG O2 Saturation ABG Base Excess ABG Hemoglobin ABG Carboxyhemoglobin POC ABG HHb (Measured) ABG Methemoglobin Nj Test ABG Potassium A-a O2 Difference Respiratory Index Hgb O2 Saturation Glucose Lactate Liter Flow FiO2 Sodium Potassium Chloride Carbon Dioxide Anion Gap BUN Creatinine Est GFR ( Amer) Est GFR (Non-Af Amer) POC Glucose (mg/dL) 178 H Random Glucose Hemoglobin A1c Lactic Acid Calcium Phosphorus Magnesium Total Bilirubin AST ALT Alkaline Phosphatase Total Creatine Kinase CK-MB (Mass) Troponin I, Quant Total Protein Albumin Globulin Albumin/Globulin Ratio Triglycerides Cholesterol LDL Cholesterol Direct HDL Cholesterol Lipase Free T4 TSH 3rd Generation Arterial Blood Potassium Urine Color Urine Clarity Urine pH Ur Specific [place] Urine Protein Urine Glucose (UA) Urine Ketones Urine Blood Urine Nitrate Urine Bilirubin Urine Urobilinogen Ur Leukocyte Esterase Urine WBC (Auto) Urine RBC (Auto) Influenza Typ A,B (EIA) Ur L.pneumophila Ag 07/13/17 07/13/17 07/13/17 20:04 20:04 21:04 WBC RBC Hgb Hct MCV MCH MCHC RDW Plt Count MPV Neut % (Auto) Lymph % (Auto) Newton % (Auto) Eos % (Auto) Baso % (Auto) Neut # Lymph # [place] # Eos # Baso # Neutrophils % (Manual) Band Neutrophils % Lymphocytes % (Manual) Monocytes % (Manual) Platelet Estimate Anisocytosis (manual) Rouleaux PT INR APTT Puncture Site pCO2 pO2 HCO3 ABG pH ABG Total CO2 ABG O2 Saturation ABG Base Excess ABG Hemoglobin ABG Carboxyhemoglobin POC ABG HHb (Measured) ABG Methemoglobin Nj Test ABG Potassium A-a O2 Difference Respiratory Index Hgb O2 Saturation Glucose Lactate Liter Flow FiO2 Sodium 132 Potassium 5.9 H Chloride 102 Carbon Dioxide 16 L Anion Gap 20 BUN 38 H Creatinine 1.7 H Est GFR ( Amer) 47 Est GFR (Non-Af Amer) 39 POC Glucose (mg/dL) 263 H Random Glucose 234 H Hemoglobin A1c Lactic Acid Calcium 10.1 Phosphorus 3.2 Magnesium 1.9 Total Bilirubin 0.9 AST 53 ALT 70 Alkaline Phosphatase 105 Total Creatine Kinase 51 L CK-MB (Mass) 1.45 Troponin I, Quant < 0.0120 Total Protein 8.7 H Albumin 4.5 Globulin 4.1 H Albumin/Globulin Ratio 1.1 Triglycerides Cholesterol LDL Cholesterol Direct HDL Cholesterol Lipase Free T4 1.05 TSH 3rd Generation 0.80 Arterial Blood Potassium Urine Color Urine Clarity Urine pH Ur Specific [place] Urine Protein Urine Glucose (UA) Urine Ketones Urine Blood Urine Nitrate Urine Bilirubin Urine Urobilinogen Ur Leukocyte Esterase Urine WBC (Auto) Urine RBC (Auto) Influenza Typ A,B (EIA) Ur L.pneumophila Ag 07/13/17 07/14/17 07/14/17 22:06 05:30 06:20 WBC 17.4 H RBC 4.89 Hgb 13.5 Hct 42.4 MCV 86.6 D MCH 27.7 MCHC 32.0 L RDW 15.4 H Plt Count 248 MPV 9.2 Neut % (Auto) 91.9 H Lymph % (Auto) 2.0 L [place] % (Auto) 5.3 Eos % (Auto) 0.0 Baso % (Auto) 0.8 Neut # 16.0 H Lymph # 0.4 L [place] # 0.9 H Eos # 0.0 Baso # 0.1 Neutrophils % (Manual) 69 Band Neutrophils % 21 H* Lymphocytes % (Manual) 6 L Monocytes % (Manual) 4 Platelet Estimate Normal Anisocytosis (manual) Slight Rouleaux PT INR APTT Puncture Site Rb pCO2 26 L pO2 80 HCO3 18.6 L ABG pH 7.38 ABG Total CO2 16.2 L ABG O2 Saturation 97.4 ABG Base Excess -8.0 L ABG Hemoglobin ABG Carboxyhemoglobin POC ABG HHb (Measured) ABG Methemoglobin Nj Test Na ABG Potassium 5.7 H A-a O2 Difference Respiratory Index Hgb O2 Saturation Glucose 318 H Lactate 3.0 H Liter Flow 2.0 FiO2 Sodium 137.0 Potassium Chloride 105.0 Carbon Dioxide Anion Gap BUN Creatinine Est GFR ( Amer) Est GFR (Non-Af Amer) POC Glucose (mg/dL) 218 H Random Glucose Hemoglobin A1c Lactic Acid Calcium Phosphorus Magnesium Total Bilirubin AST ALT Alkaline Phosphatase Total Creatine Kinase CK-MB (Mass) Troponin I, Quant Total Protein Albumin Globulin Albumin/Globulin Ratio Triglycerides Cholesterol LDL Cholesterol Direct HDL Cholesterol Lipase Free T4 TSH 3rd Generation Arterial Blood Potassium 5.7 H Urine Color Urine Clarity Urine pH Ur Specific [place] Urine Protein Urine Glucose (UA) Urine Ketones Urine Blood Urine Nitrate Urine Bilirubin Urine Urobilinogen Ur Leukocyte Esterase Urine WBC (Auto) Urine RBC (Auto) Influenza Typ A,B (EIA) Ur L.pneumophila Ag 07/14/17 07/14/17 07/14/17 06:22 08:37 08:47 WBC RBC Hgb Hct MCV MCH MCHC RDW Plt Count MPV Neut % (Auto) Lymph % (Auto) [place] % (Auto) Eos % (Auto) Baso % (Auto) Neut # Lymph # [place] # Eos # Baso # Neutrophils % (Manual) Band Neutrophils % Lymphocytes % (Manual) Monocytes % (Manual) Platelet Estimate Anisocytosis (manual) Rouleaux PT INR APTT Puncture Site pCO2 pO2 HCO3 ABG pH ABG Total CO2 ABG O2 Saturation ABG Base Excess ABG Hemoglobin ABG Carboxyhemoglobin POC ABG HHb (Measured) ABG Methemoglobin Nj Test ABG Potassium A-a O2 Difference Respiratory Index Hgb O2 Saturation Glucose Lactate Liter Flow FiO2 Sodium 135 Potassium 5.6 H Chloride 101 Carbon Dioxide 13 L Anion Gap 27 H BUN 33 H Creatinine 1.6 H Est GFR ( Amer) 50 Est GFR (Non-Af Amer) 42 POC Glucose (mg/dL) 281 H Random Glucose 259 H Hemoglobin A1c Lactic Acid Calcium 10.2 Phosphorus 3.9 Magnesium 1.9 Total Bilirubin 0.9 AST 51 ALT 69 Alkaline Phosphatase 95 Total Creatine Kinase 247 H CK-MB (Mass) 4.82 H Troponin I, Quant 0.0130 Total Protein 9.0 H Albumin 4.8 Globulin 4.2 H Albumin/Globulin Ratio 1.1 Triglycerides 162 H D Cholesterol 360 H LDL Cholesterol Direct 223 H HDL Cholesterol 43 Lipase 207 Free T4 TSH 3rd Generation Arterial Blood Potassium Urine Color Urine Clarity Urine pH Ur Specific [place] Urine Protein Urine Glucose (UA) Urine Ketones Urine Blood Urine Nitrate Urine Bilirubin Urine Urobilinogen Ur Leukocyte Esterase Urine WBC (Auto) Urine RBC (Auto) Influenza Typ A,B (EIA) Ur L.pneumophila Ag Negative 07/14/17 07/14/17 07/14/17 08:48 09:57 10:52 WBC RBC Hgb Hct MCV MCH MCHC RDW Plt Count MPV Neut % (Auto) Lymph % (Auto) [place] % (Auto) Eos % (Auto) Baso % (Auto) Neut # Lymph # [place] # Eos # Baso # Neutrophils % (Manual) Band Neutrophils % Lymphocytes % (Manual) Monocytes % (Manual) Platelet Estimate Anisocytosis (manual) Rouleaux PT INR APTT Puncture Site Rb pCO2 26 L pO2 77 L HCO3 22.1 ABG pH 7.47 H ABG Total CO2 19.7 L ABG O2 Saturation 98.1 H ABG Base Excess -3.6 L ABG Hemoglobin 11.2 L ABG Carboxyhemoglobin 2.1 H POC ABG HHb (Measured) 1.8 ABG Methemoglobin 1.1 Nj Test Na ABG Potassium A-a O2 Difference 83.0 Respiratory Index 1.1 Hgb O2 Saturation 95.1 Glucose Lactate Liter Flow 2.0 FiO2 27.0 Sodium Potassium Chloride Carbon Dioxide Anion Gap BUN Creatinine Est GFR ( Amer) Est GFR (Non-Af Amer) POC Glucose (mg/dL) Random Glucose Hemoglobin A1c 8.3 H Lactic Acid Calcium Phosphorus Magnesium Total Bilirubin AST ALT Alkaline Phosphatase Total Creatine Kinase CK-MB (Mass) Troponin I, Quant Total Protein Albumin Globulin Albumin/Globulin Ratio Triglycerides Cholesterol LDL Cholesterol Direct HDL Cholesterol Lipase Free T4 TSH 3rd Generation Arterial Blood Potassium Urine Color Urine Clarity Urine pH Ur Specific [place] Urine Protein Urine Glucose (UA) Urine Ketones Urine Blood Urine Nitrate Urine Bilirubin Urine Urobilinogen Ur Leukocyte Esterase Urine WBC (Auto) Urine RBC (Auto) Influenza Typ A,B (EIA) Negative for flu a/b Ur L.pneumophila Ag 07/14/17 07/14/17 07/14/17 11:23 11:23 11:39 WBC RBC Hgb Hct MCV MCH MCHC RDW Plt Count MPV Neut % (Auto) Lymph % (Auto) [place] % (Auto) Eos % (Auto) Baso % (Auto) Neut # Lymph # [place] # Eos # Baso # Neutrophils % (Manual) Band Neutrophils % Lymphocytes % (Manual) Monocytes % (Manual) Platelet Estimate Anisocytosis (manual) Rouleaux PT INR APTT Puncture Site pCO2 pO2 HCO3 ABG pH ABG Total CO2 ABG O2 Saturation ABG Base Excess ABG Hemoglobin ABG Carboxyhemoglobin POC ABG HHb (Measured) ABG Methemoglobin Nj Test ABG Potassium A-a O2 Difference Respiratory Index Hgb O2 Saturation Glucose Lactate Liter Flow FiO2 Sodium Potassium Chloride Carbon Dioxide Anion Gap BUN Creatinine Est GFR ( Amer) Est GFR (Non-Af Amer) POC Glucose (mg/dL) 221 H Random Glucose Hemoglobin A1c Lactic Acid 2.2 H Calcium Phosphorus Magnesium Total Bilirubin AST ALT Alkaline Phosphatase Total Creatine Kinase CK-MB (Mass) Troponin I, Quant Total Protein Albumin Globulin Albumin/Globulin Ratio Triglycerides Cholesterol LDL Cholesterol Direct HDL Cholesterol Lipase Free T4 TSH 3rd Generation Arterial Blood Potassium Urine Color Yellow Urine Clarity Clear Urine pH 5.0 Ur Specific [place] 1.020 Urine Protein 2+ H Urine Glucose (UA) 2+ H Urine Ketones Negative Urine Blood Negative Urine Nitrate Negative Urine Bilirubin Negative Urine Urobilinogen Normal Ur Leukocyte Esterase Neg Urine WBC (Auto) 1 Urine RBC (Auto) < 1 Influenza Typ A,B (EIA) Ur L.pneumophila Ag 07/14/17 07/14/17 07/14/17 15:57 16:05 16:12 WBC 15.3 H RBC 3.67 L Hgb 10.3 L D Hct 30.7 L MCV 83.7 D MCH 28.1 MCHC 33.5 RDW 14.7 H Plt Count 225 MPV 8.5 Neut % (Auto) Lymph % (Auto) [place] % (Auto) Eos % (Auto) Baso % (Auto) Neut # Lymph # [place] # Eos # Baso # Neutrophils % (Manual) Band Neutrophils % Lymphocytes % (Manual) Monocytes % (Manual) Platelet Estimate Anisocytosis (manual) Rouleaux PT INR APTT Puncture Site pCO2 pO2 HCO3 ABG pH ABG Total CO2 ABG O2 Saturation ABG Base Excess ABG Hemoglobin ABG Carboxyhemoglobin POC ABG HHb (Measured) ABG Methemoglobin Nj Test ABG Potassium A-a O2 Difference Respiratory Index Hgb O2 Saturation Glucose Lactate Liter Flow FiO2 Sodium 132 Potassium 4.2 Chloride 96 L Carbon Dioxide 21 L Anion Gap 19 BUN 40 H Creatinine 2.0 H Est GFR ( Amer) 39 Est GFR (Non-Af Amer) 32 POC Glucose (mg/dL) 253 H Random Glucose 231 H Hemoglobin A1c Lactic Acid Calcium 9.0 Phosphorus Magnesium Total Bilirubin 1.1 AST 39 ALT 52 Alkaline Phosphatase 63 Total Creatine Kinase CK-MB (Mass) Troponin I, Quant Total Protein 6.6 Albumin 4.1 Globulin 2.5 Albumin/Globulin Ratio 1.6 Triglycerides Cholesterol LDL Cholesterol Direct HDL Cholesterol Lipase Free T4 TSH 3rd Generation Arterial Blood Potassium Urine Color Urine Clarity Urine pH Ur Specific [place] Urine Protein Urine Glucose (UA) Urine Ketones Urine Blood Urine Nitrate Urine Bilirubin Urine Urobilinogen Ur Leukocyte Esterase Urine WBC (Auto) Urine RBC (Auto) Influenza Typ A,B (EIA) Ur L.pneumophila Ag EKG/Cardiology Studies: Cardiology / EKG Studies 07/13/17 18:05 EKG [ELECTROCARDIOGRAM] Stat Comment: Mode Of Transportation: Reason For Exam: chest pain, rapid Isolation: Contact 07/14/17 01:16 EKG [ELECTROCARDIOGRAM] Routine Comment: Mode Of Transportation: PORTABLE Reason For Exam: C/P Isolation: Contact Fingerstick Blood Sugar Results: 221 Review of Systems - Constitutional Constitutional: absent: Fever, Chills, Sweats - Cardiovascular Cardiovascular: absent: Chest Pain, Dyspnea - Respiratory Respiratory: absent: Dyspnea, Wheezing - Gastrointestinal Gastrointestinal: Abdominal Pain. absent: Constipation, Diarrhea, Nausea, Vomiting - Genitourinary Genitourinary: absent: Difficulty Urinating - Musculoskeletal Musculoskeletal: absent: Numbness, Tingling - Integumentary Integumentary: absent: New Lesions, Rash - Psychiatric Psychiatric: Memory Loss Additional comments: hx dementia - Hematologic/Lymphatic Hematologic: absent: Easy Bleeding, Easy Bruising Critical Care Progress Note - Nutrition Nutrition: Nutrition Category Date Time Status NPO Diet [DIET] Diets 07/14/17 Dinner Active Assessment/Plan - Assessment and Plan (Free Text) Assessment: 82 M w/ PMHx of Diabetes, HLD, HTN, Hypothyroidism, CKD Stage 3, Alzheimer's Dementia, 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 Code sepsis called on 07/14/17. Neuro: hx Alzheimer's dementia -Aricept 10 mg PO HS Cardio: HTN, hx CVA -Cardiology consulted (Dr. Chau), help appreciated -Amlodipine 10 mg po daily -Metoprolol Succinate 100 mg po daily -Plavix 75mg po daily -Crestor 10 mg po HS - F/u echo report from 07/13/17 Pulm: possible left lower lobe pneumonia -CXR 07/14/17 showed left basilar consolidative changes with small left pleural effusion GI: Likely biliary, hepatic or bowel perforation, common bile duct stones, - CT C/A/P showed free air under the right hemidiaphragm and extrahepatic CBD pneumobilia - Surgery consulted (Dr. Boyce) - help appreciated -NPO -f/u CT abdomen and pelvis with IV and PO contrast Nephro: CKD stage 3, possible acute on chronic - BUN 33, Cr 1.6 down from 1.7 - 2+ urine protein and 2+ urine glucose on U/A 07/14/17 - Nephrology consulted (Dr. Oconnell) Endo: hx of diabetes, hypothyroidism - Random glucose from 112-281 - ISS -accuchecks -Synthroid 50 mcg po daily ID: Sepsis secondary to likely biliary or hepatic perforation from recent ERCP - Lactate 3.0, 21 bands - HCAP pneumonia suspected given recent hospitalization and antibiotic use for buttock abscess - Infectious Disease consulted (Dr. Langford) - Meropenem, ciprofloxacin and vancomycin started - Sodium Bicarb 150 meq PPX: DVT: SCD's GI: Protonix 40 mg po daily florastor <Mina Kowalski S - Last Filed: 07/14/17 18:01> CCU Objective - Vital Signs / Intake & Output Vital Signs (Last 4 hours): Vital Signs Pulse Resp BP Pulse Ox 07/14/17 17:00 87 32 H 93 L 07/14/17 16:58 85 25 H 110/58 L 94 L 07/14/17 16:30 87 26 H 94 L 07/14/17 16:00 87 30 H 93 L 07/14/17 15:58 88 29 H 105/48 L 95 07/14/17 15:30 88 25 H 95 07/14/17 15:00 87 30 H 95 07/14/17 14:58 87 25 H 125/58 L 96 07/14/17 14:30 82 38 H 96 Intake and Output (Last 8hrs): Intake & Output 07/14/17 07/14/17 07/14/17 06:59 14:59 22:59 Intake Total 300 800 300 Output Total 250 280 0 Balance 50 520 300 Weight 135 lb 4.8 oz Intake: Intake, IV Amount 300 800 300 Left Hand 300 800 300 Oral 0 0 Tube Feeding 0 0 Output: Urine 250 280 Urethral ([place]acheco) 280 Urine, Voided 250 0 Emesis 0 0 Other: # Voids Urine, Voided 0 # Bowel Movements 0 0 - Medications Active Medications: Active Medications Generic Name Dose Route Start Last Admin Trade Name Freq PRN Reason Stop Dose Admin Amlodipine Besylate 10 mg 07/14/17 10:00 07/14/17 09:56 Norvasc PO Not Given DAILY [facility] Ascorbic Acid 250 mg 07/14/17 10:00 07/14/17 09:57 Vitamin C 250 Mg Tab PO Not Given DAILY [facility] Benzocaine/Menthol 1 love 07/14/17 04:24 Cepacol Sore Throat MT Q2 PRN Sore Throat Clopidogrel Bisulfate 75 mg 07/14/17 10:00 Plavix PO DAILY [facility] Cyproheptadine HCl 4 mg 07/14/17 10:00 07/14/17 09:56 Periactin PO Not Given BID [facility] Donepezil HCl 10 mg 07/13/17 22:00 07/13/17 22:30 Aricept PO Not Given HS [facility] Ferrous Sulfate 325 mg 07/13/17 18:45 07/14/17 06:47 Feosol PO Not Given Q12H [facility] Gemfibrozil 600 mg 07/14/17 10:00 07/14/17 17:35 Lopid PO Not Given BID [facility] Home Med 8 mg 07/14/17 10:00 Fesoterodine Fumarate [Toviaz] PO DAILY [facility] Sodium Bicarbonate 150 meq/ 1,150 mls @ 100 mls/hr 07/14/17 00:30 07/14/17 17 :40 Dextrose IV 100 mls/hr .[id number] DARINEL Administration Ciprofloxacin 400 mg in 200 mls @ 133 mls/hr 07/14/17 09:00 07/14/17 11:00 Cipro 400mg/200ml Dsw IVPB 133 mls/hr Q12H DARINEL Administration Vancomycin/Sodium Chloride 1 gm in 200 mls @ 133.333 mls/hr 07/14/17 11:00 11:17 Vancomycin 1 Gm/Ns 200 Ml IVPB 07/19/17 11:01 133.333 mls/hr Q24H DARINEL Administration Meropenem 500 mg/ Dextrose 100 mls @ 100 mls/hr 07/14/17 13:00 07/14/17 13:34 IVPB 100 mls/hr Q6 DARINEL Administration Insulin Human Regular 0 unit 07/13/17 22:00 07/14/17 17:39 Novolin R SC 3 unit ACHS DARINEL Administration Protocol Iohexol 50 ml 07/14/17 15:39 07/14/17 16:04 Omnipaque 240 (50 Ml) PO 50 ml ONCE PRN Administration FOR CAT SCAN Latanoprost 0 ml 07/13/17 22:00 07/14/17 00:03 Xalatan Opht OU 1 ml HS DARINEL Administration Levothyroxine Sodium 50 mcg 07/14/17 06:30 07/14/17 07:00 Synthroid PO Not Given DAILY@0630 [facility] Meclizine HCl 12.5 mg 07/14/17 10:00 07/14/17 14:00 Antivert PO Not Given TID DARINEL Metoprolol Succinate 100 mg 07/13/17 21:59 07/14/17 13:41 Toprol Xl PO 100 mg DAILY DARINEL Administration Morphine Sulfate 1 mg 07/14/17 00:38 Morphine IV Q3 PRN Pain, moderate (4-7) Morphine Sulfate 2 mg 07/14/17 02:45 07/14/17 14:25 Morphine IVP 2 mg Q3 PRN Administration Pain, severe (8-10) Ondansetron HCl 4 mg 07/14/17 00:38 Zofran Inj IVP Q6 PRN Nausea/Vomiting Pantoprazole Sodium 40 mg 07/14/17 10:00 07/14/17 09:57 Protonix Ec Tab PO Not Given DAILY DARINEL Pantoprazole Sodium 40 mg 07/14/17 10:00 07/14/17 09:55 Protonix Inj IVP 40 mg DAILY DARINEL Administration Rosuvastatin Calcium 10 mg 07/13/17 22:00 07/13/17 22:30 Crestor PO Not Given HS DARINEL Saccharomyces Boulardii 250 mg 07/14/17 10:00 07/14/17 17:35 Florastor PO Not Given BID DARINEL - Patient Studies Lab Studies: Lab Studies 07/14/17 07/14/17 07/14/17 Range/Units 16:12 16:05 15:57 WBC 15.3 H (4.8-10.8) K/uL RBC 3.67 L (4.40-5.90) Mil/uL Hgb 10.3 L D (12.0-18.0) g/dL Hct 30.7 L (35.0-51.0) % MCV 83.7 D (80.0-94.0) fL MCH 28.1 (27.0-31.0) pg MCHC 33.5 (33.0-37.0) g/dL RDW 14.7 H (11.5-14.5) % Plt Count 225 (130-400) K/uL MPV 8.5 (7.2-11.7) fL Neut % (Auto) (50.0-75.0) % Lymph % (Auto) (20.0-40.0) % [place] % (Auto) (0.0-10.0) % Eos % (Auto) (0.0-4.0) % Baso % (Auto) (0.0-2.0) % Neut # (1.8-7.0) K/uL Lymph # (1.0-4.3) K/uL [place] # (0.0-0.8) K/uL Eos # (0.0-0.7) K/uL Baso # (0.0-0.2) K/uL Neutrophils % (Manual) (50-75) % Band Neutrophils % (0-2) % Lymphocytes % (Manual) (20-40) % Monocytes % (Manual) (0-10) % Platelet Estimate (NORMAL) Anisocytosis (manual) Rouleaux PT (9.7-12.2) SECONDS INR APTT (21-34) SECONDS Puncture Site pCO2 (35-45) mm/Hg pO2 (80-100) mm/Hg HCO3 (21-28) mmol/L ABG pH (7.35-7.45) ABG Total CO2 (22-28) mmol/L ABG O2 Saturation (95-98) % ABG Base Excess (-2.0-3.0) mmol/L ABG Hemoglobin (11.7-17.4) g/dL ABG Carboxyhemoglobin (0.5-1.5) % POC ABG HHb (Measured) (0.0-5.0) % ABG Methemoglobin (0.0-3.0) % Nj Test ABG Potassium (3.6-5.2) mmol/L A-a O2 Difference mm/Hg Respiratory Index Hgb O2 Saturation (95.0-98.0) % Glucose (75-110) mg/dl Lactate (0.7-2.1) mmol/L Liter Flow FiO2 % Sodium 132 (132-148) mmol/L Potassium 4.2 (3.6-5.2) mmol/L Chloride 96 L (98-107) mmol/L Carbon Dioxide 21 L (22-30) mmol/L Anion Gap 19 (10-20) BUN 40 H (9-20) mg/dL Creatinine 2.0 H (0.8-1.5) mg/dL Est GFR ( Amer) 39 Est GFR (Non-Af Amer) 32 POC Glucose (mg/dL) 253 H (65-110) mg/dL Random Glucose 231 H (75-110) mg/dL Hemoglobin A1c (4.2-6.5) % Lactic Acid (0.7-2.1) mmol/L Calcium 9.0 (8.6-10.4) mg/dl Phosphorus (2.5-4.5) mg/dL Magnesium (1.6-2.3) mg/dL Total Bilirubin 1.1 (0.2-1.3) mg/dL AST 39 (17-59) U/L ALT 52 (21-72) U/L Alkaline Phosphatase 63 (38-126) U/L Total Creatine Kinase 248 H (55-170) U/L CK-MB (Mass) 3.42 H (0.0-3.38) ng/mL Troponin I, Quant 0.0330 (0.00-0.120) ng/mL Total Protein 6.6 (6.3-8.3) g/dL Albumin 4.1 (3.5-5.0) g/dL Globulin 2.5 (2.2-3.9) gm/dL Albumin/Globulin Ratio 1.6 (1.0-2.1) Triglycerides (0-149) mg/dL Cholesterol (0-199) mg/dL LDL Cholesterol Direct (0-129) mg/dL HDL Cholesterol (30-70) mg/dL Lipase (23-300) U/L Free T4 (0.78-2.19) ng/dL TSH 3rd Generation (0.46-4.68) mIU/L Arterial Blood Potassium (3.6-5.2) mmol/L Urine Color (YELLOW) Urine Clarity (Clear) Urine pH (5.0-8.0) Ur Specific [place] (1.003-1.030) Urine Protein (NEGATIVE) mg/dL Urine Glucose (UA) (Normal) mg/dL Urine Ketones (NEGATIVE) mg/dL Urine Blood (NEGATIVE) Urine Nitrate (NEGATIVE) Urine Bilirubin (NEGATIVE) Urine Urobilinogen (0.2-1.0) mg/dL Ur Leukocyte Esterase (Negative) David/uL Urine WBC (Auto) (0-5) /hpf Urine RBC (Auto) (0-3) /hpf Influenza Typ A,B (EIA) (NEGATIVE) Ur L.pneumophila Ag (NEGATIVE) 07/14/17 07/14/17 07/14/17 Range/Units 11:39 11:23 11:23 WBC (4.8-10.8) K/uL RBC (4.40-5.90) Mil/uL Hgb (12.0-18.0) g/dL Hct (35.0-51.0) % MCV (80.0-94.0) fL MCH (27.0-31.0) pg MCHC (33.0-37.0) g/dL RDW (11.5-14.5) % Plt Count (130-400) K/uL MPV (7.2-11.7) fL Neut % (Auto) (50.0-75.0) % Lymph % (Auto) (20.0-40.0) % [place] % (Auto) (0.0-10.0) % Eos % (Auto) (0.0-4.0) % Baso % (Auto) (0.0-2.0) % Neut # (1.8-7.0) K/uL Lymph # (1.0-4.3) K/uL [place] # (0.0-0.8) K/uL Eos # (0.0-0.7) K/uL Baso # (0.0-0.2) K/uL Neutrophils % (Manual) (50-75) % Band Neutrophils % (0-2) % Lymphocytes % (Manual) (20-40) % Monocytes % (Manual) (0-10) % Platelet Estimate (NORMAL) Anisocytosis (manual) Rouleaux PT (9.7-12.2) SECONDS INR APTT (21-34) SECONDS Puncture Site pCO2 (35-45) mm/Hg pO2 (80-100) mm/Hg HCO3 (21-28) mmol/L ABG pH (7.35-7.45) ABG Total CO2 (22-28) mmol/L ABG O2 Saturation (95-98) % ABG Base Excess (-2.0-3.0) mmol/L ABG Hemoglobin (11.7-17.4) g/dL ABG Carboxyhemoglobin (0.5-1.5) % POC ABG HHb (Measured) (0.0-5.0) % ABG Methemoglobin (0.0-3.0) % Nj Test ABG Potassium (3.6-5.2) mmol/L A-a O2 Difference mm/Hg Respiratory Index Hgb O2 Saturation (95.0-98.0) % Glucose (75-110) mg/dl Lactate (0.7-2.1) mmol/L Liter Flow FiO2 % Sodium (132-148) mmol/L Potassium (3.6-5.2) mmol/L Chloride (98-107) mmol/L Carbon Dioxide (22-30) mmol/L Anion Gap (10-20) BUN (9-20) mg/dL Creatinine (0.8-1.5) mg/dL Est GFR ( Amer) Est GFR (Non-Af Amer) POC Glucose (mg/dL) 221 H (65-110) mg/dL Random Glucose (75-110) mg/dL Hemoglobin A1c (4.2-6.5) % Lactic Acid 2.2 H (0.7-2.1) mmol/L Calcium (8.6-10.4) mg/dl Phosphorus (2.5-4.5) mg/dL Magnesium (1.6-2.3) mg/dL Total Bilirubin (0.2-1.3) mg/dL AST (17-59) U/L ALT (21-72) U/L Alkaline Phosphatase (38-126) U/L Total Creatine Kinase (55-170) U/L CK-MB (Mass) (0.0-3.38) ng/mL Troponin I, Quant (0.00-0.120) ng/mL Total Protein (6.3-8.3) g/dL Albumin (3.5-5.0) g/dL Globulin (2.2-3.9) gm/dL Albumin/Globulin Ratio (1.0-2.1) Triglycerides (0-149) mg/dL Cholesterol (0-199) mg/dL LDL Cholesterol Direct (0-129) mg/dL HDL Cholesterol (30-70) mg/dL Lipase (23-300) U/L Free T4 (0.78-2.19) ng/dL TSH 3rd Generation (0.46-4.68) mIU/L Arterial Blood Potassium (3.6-5.2) mmol/L Urine Color Yellow (YELLOW) Urine Clarity Clear (Clear) Urine pH 5.0 (5.0-8.0) Ur Specific [place] 1.020 (1.003-1.030) Urine Protein 2+ H (NEGATIVE) mg/dL Urine Glucose (UA) 2+ H (Normal) mg/dL Urine Ketones Negative (NEGATIVE) mg/dL Urine Blood Negative (NEGATIVE) Urine Nitrate Negative (NEGATIVE) Urine Bilirubin Negative (NEGATIVE) Urine Urobilinogen Normal (0.2-1.0) mg/dL Ur Leukocyte Esterase Neg (Negative) David/uL Urine WBC (Auto) 1 (0-5) /hpf Urine RBC (Auto) < 1 (0-3) /hpf Influenza Typ A,B (EIA) (NEGATIVE) Ur L.pneumophila Ag (NEGATIVE) 07/14/17 07/14/17 07/14/17 Range/Units 10:52 09:57 08:48 WBC (4.8-10.8) K/uL RBC (4.40-5.90) Mil/uL Hgb (12.0-18.0) g/dL Hct (35.0-51.0) % MCV (80.0-94.0) fL MCH (27.0-31.0) pg MCHC (33.0-37.0) g/dL RDW (11.5-14.5) % Plt Count (130-400) K/uL MPV (7.2-11.7) fL Neut % (Auto) (50.0-75.0) % Lymph % (Auto) (20.0-40.0) % [place] % (Auto) (0.0-10.0) % Eos % (Auto) (0.0-4.0) % Baso % (Auto) (0.0-2.0) % Neut # (1.8-7.0) K/uL Lymph # (1.0-4.3) K/uL [place] # (0.0-0.8) K/uL Eos # (0.0-0.7) K/uL Baso # (0.0-0.2) K/uL Neutrophils % (Manual) (50-75) % Band Neutrophils % (0-2) % Lymphocytes % (Manual) (20-40) % Monocytes % (Manual) (0-10) % Platelet Estimate (NORMAL) Anisocytosis (manual) Rouleaux PT (9.7-12.2) SECONDS INR APTT (21-34) SECONDS Puncture Site Rb pCO2 26 L (35-45) mm/Hg pO2 77 L (80-100) mm/Hg HCO3 22.1 (21-28) mmol/L ABG pH 7.47 H (7.35-7.45) ABG Total CO2 19.7 L (22-28) mmol/L ABG O2 Saturation 98.1 H (95-98) % ABG Base Excess -3.6 L (-2.0-3.0) mmol/L ABG Hemoglobin 11.2 L (11.7-17.4) g/dL ABG Carboxyhemoglobin 2.1 H (0.5-1.5) % POC ABG HHb (Measured) 1.8 (0.0-5.0) % ABG Methemoglobin 1.1 (0.0-3.0) % Nj Test Na ABG Potassium (3.6-5.2) mmol/L A-a O2 Difference 83.0 mm/Hg Respiratory Index 1.1 Hgb O2 Saturation 95.1 (95.0-98.0) % Glucose (75-110) mg/dl Lactate (0.7-2.1) mmol/L Liter Flow 2.0 FiO2 27.0 % Sodium (132-148) mmol/L Potassium (3.6-5.2) mmol/L Chloride (98-107) mmol/L Carbon Dioxide (22-30) mmol/L Anion Gap (10-20) BUN (9-20) mg/dL Creatinine (0.8-1.5) mg/dL Est GFR ( Amer) Est GFR (Non-Af Amer) POC Glucose (mg/dL) (65-110) mg/dL Random Glucose (75-110) mg/dL Hemoglobin A1c 8.3 H (4.2-6.5) % Lactic Acid (0.7-2.1) mmol/L Calcium (8.6-10.4) mg/dl Phosphorus (2.5-4.5) mg/dL Magnesium (1.6-2.3) mg/dL Total Bilirubin (0.2-1.3) mg/dL AST (17-59) U/L ALT (21-72) U/L Alkaline Phosphatase (38-126) U/L Total Creatine Kinase (55-170) U/L CK-MB (Mass) (0.0-3.38) ng/mL Troponin I, Quant (0.00-0.120) ng/mL Total Protein (6.3-8.3) g/dL Albumin (3.5-5.0) g/dL Globulin (2.2-3.9) gm/dL Albumin/Globulin Ratio (1.0-2.1) Triglycerides (0-149) mg/dL Cholesterol (0-199) mg/dL LDL Cholesterol Direct (0-129) mg/dL HDL Cholesterol (30-70) mg/dL Lipase (23-300) U/L Free T4 (0.78-2.19) ng/dL TSH 3rd Generation (0.46-4.68) mIU/L Arterial Blood Potassium (3.6-5.2) mmol/L Urine Color (YELLOW) Urine Clarity (Clear) Urine pH (5.0-8.0) Ur Specific [place] (1.003-1.030) Urine Protein (NEGATIVE) mg/dL Urine Glucose (UA) (Normal) mg/dL Urine Ketones (NEGATIVE) mg/dL Urine Blood (NEGATIVE) Urine Nitrate (NEGATIVE) Urine Bilirubin (NEGATIVE) Urine Urobilinogen (0.2-1.0) mg/dL Ur Leukocyte Esterase (Negative) David/uL Urine WBC (Auto) (0-5) /hpf Urine RBC (Auto) (0-3) /hpf Influenza Typ A,B (EIA) Negative for flu a/b (NEGATIVE) Ur L.pneumophila Ag (NEGATIVE) 07/14/17 07/14/17 07/14/17 Range/Units 08:47 08:37 06:22 WBC (4.8-10.8) K/uL RBC (4.40-5.90) Mil/uL Hgb (12.0-18.0) g/dL Hct (35.0-51.0) % MCV (80.0-94.0) fL MCH (27.0-31.0) pg MCHC (33.0-37.0) g/dL RDW (11.5-14.5) % Plt Count (130-400) K/uL MPV (7.2-11.7) fL Neut % (Auto) (50.0-75.0) % Lymph % (Auto) (20.0-40.0) % [place] % (Auto) (0.0-10.0) % Eos % (Auto) (0.0-4.0) % Baso % (Auto) (0.0-2.0) % Neut # (1.8-7.0) K/uL Lymph # (1.0-4.3) K/uL [place] # (0.0-0.8) K/uL Eos # (0.0-0.7) K/uL Baso # (0.0-0.2) K/uL Neutrophils % (Manual) (50-75) % Band Neutrophils % (0-2) % Lymphocytes % (Manual) (20-40) % Monocytes % (Manual) (0-10) % Platelet Estimate (NORMAL) Anisocytosis (manual) Rouleaux PT (9.7-12.2) SECONDS INR APTT (21-34) SECONDS Puncture Site pCO2 (35-45) mm/Hg pO2 (80-100) mm/Hg HCO3 (21-28) mmol/L ABG pH (7.35-7.45) ABG Total CO2 (22-28) mmol/L ABG O2 Saturation (95-98) % ABG Base Excess (-2.0-3.0) mmol/L ABG Hemoglobin (11.7-17.4) g/dL ABG Carboxyhemoglobin (0.5-1.5) % POC ABG HHb (Measured) (0.0-5.0) % ABG Methemoglobin (0.0-3.0) % Nj Test ABG Potassium (3.6-5.2) mmol/L A-a O2 Difference mm/Hg Respiratory Index Hgb O2 Saturation (95.0-98.0) % Glucose (75-110) mg/dl Lactate (0.7-2.1) mmol/L Liter Flow FiO2 % Sodium 135 (132-148) mmol/L Potassium 5.6 H (3.6-5.2) mmol/L Chloride 101 (98-107) mmol/L Carbon Dioxide 13 L (22-30) mmol/L Anion Gap 27 H (10-20) BUN 33 H (9-20) mg/dL Creatinine 1.6 H (0.8-1.5) mg/dL Est GFR ( Amer) 50 Est GFR (Non-Af Amer) 42 POC Glucose (mg/dL) 281 H (65-110) mg/dL Random Glucose 259 H (75-110) mg/dL Hemoglobin A1c (4.2-6.5) % Lactic Acid (0.7-2.1) mmol/L Calcium 10.2 (8.6-10.4) mg/dl Phosphorus 3.9 (2.5-4.5) mg/dL Magnesium 1.9 (1.6-2.3) mg/dL Total Bilirubin 0.9 (0.2-1.3) mg/dL AST 51 (17-59) U/L ALT 69 (21-72) U/L Alkaline Phosphatase 95 (38-126) U/L Total Creatine Kinase 247 H (55-170) U/L CK-MB (Mass) 4.82 H (0.0-3.38) ng/mL Troponin I, Quant 0.0130 (0.00-0.120) ng/mL Total Protein 9.0 H (6.3-8.3) g/dL Albumin 4.8 (3.5-5.0) g/dL Globulin 4.2 H (2.2-3.9) gm/dL Albumin/Globulin Ratio 1.1 (1.0-2.1) Triglycerides 162 H D (0-149) mg/dL Cholesterol 360 H (0-199) mg/dL LDL Cholesterol Direct 223 H (0-129) mg/dL HDL Cholesterol 43 (30-70) mg/dL Lipase 207 (23-300) U/L Free T4 (0.78-2.19) ng/dL TSH 3rd Generation (0.46-4.68) mIU/L Arterial Blood Potassium (3.6-5.2) mmol/L Urine Color (YELLOW) Urine Clarity (Clear) Urine pH (5.0-8.0) Ur Specific [place] (1.003-1.030) Urine Protein (NEGATIVE) mg/dL Urine Glucose (UA) (Normal) mg/dL Urine Ketones (NEGATIVE) mg/dL Urine Blood (NEGATIVE) Urine Nitrate (NEGATIVE) Urine Bilirubin (NEGATIVE) Urine Urobilinogen (0.2-1.0) mg/dL Ur Leukocyte Esterase (Negative) David/uL Urine WBC (Auto) (0-5) /hpf Urine RBC (Auto) (0-3) /hpf Influenza Typ A,B (EIA) (NEGATIVE) Ur L.pneumophila Ag Negative (NEGATIVE) 07/14/17 07/14/17 07/13/17 Range/Units 06:20 05:30 22:06 WBC 17.4 H (4.8-10.8) K/uL RBC 4.89 (4.40-5.90) Mil/uL Hgb 13.5 (12.0-18.0) g/dL Hct 42.4 (35.0-51.0) % MCV 86.6 D (80.0-94.0) fL MCH 27.7 (27.0-31.0) pg MCHC 32.0 L (33.0-37.0) g/dL RDW 15.4 H (11.5-14.5) % Plt Count 248 (130-400) K/uL MPV 9.2 (7.2-11.7) fL Neut % (Auto) 91.9 H (50.0-75.0) % Lymph % (Auto) 2.0 L (20.0-40.0) % [place] % (Auto) 5.3 (0.0-10.0) % Eos % (Auto) 0.0 (0.0-4.0) % Baso % (Auto) 0.8 (0.0-2.0) % Neut # 16.0 H (1.8-7.0) K/uL Lymph # 0.4 L (1.0-4.3) K/uL [place] # 0.9 H (0.0-0.8) K/uL Eos # 0.0 (0.0-0.7) K/uL Baso # 0.1 (0.0-0.2) K/uL Neutrophils % (Manual) 69 (50-75) % Band Neutrophils % 21 H* (0-2) % Lymphocytes % (Manual) 6 L (20-40) % Monocytes % (Manual) 4 (0-10) % Platelet Estimate Normal (NORMAL) Anisocytosis (manual) Slight Rouleaux PT (9.7-12.2) SECONDS INR APTT (21-34) SECONDS Puncture Site Rb pCO2 26 L (35-45) mm/Hg pO2 80 (80-100) mm/Hg HCO3 18.6 L (21-28) mmol/L ABG pH 7.38 (7.35-7.45) ABG Total CO2 16.2 L (22-28) mmol/L ABG O2 Saturation 97.4 (95-98) % ABG Base Excess -8.0 L (-2.0-3.0) mmol/L ABG Hemoglobin (11.7-17.4) g/dL ABG Carboxyhemoglobin (0.5-1.5) % POC ABG HHb (Measured) (0.0-5.0) % ABG Methemoglobin (0.0-3.0) % Nj Test Na ABG Potassium 5.7 H (3.6-5.2) mmol/L A-a O2 Difference mm/Hg Respiratory Index Hgb O2 Saturation (95.0-98.0) % Glucose 318 H (75-110) mg/dl Lactate 3.0 H (0.7-2.1) mmol/L Liter Flow 2.0 FiO2 % Sodium 137.0 (132-148) mmol/L Potassium (3.6-5.2) mmol/L Chloride 105.0 (98-107) mmol/L Carbon Dioxide (22-30) mmol/L Anion Gap (10-20) BUN (9-20) mg/dL Creatinine (0.8-1.5) mg/dL Est GFR ( Amer) Est GFR (Non-Af Amer) POC Glucose (mg/dL) 218 H (65-110) mg/dL Random Glucose (75-110) mg/dL Hemoglobin A1c (4.2-6.5) % Lactic Acid (0.7-2.1) mmol/L Calcium (8.6-10.4) mg/dl Phosphorus (2.5-4.5) mg/dL Magnesium (1.6-2.3) mg/dL Total Bilirubin (0.2-1.3) mg/dL AST (17-59) U/L ALT (21-72) U/L Alkaline Phosphatase (38-126) U/L Total Creatine Kinase (55-170) U/L CK-MB (Mass) (0.0-3.38) ng/mL Troponin I, Quant (0.00-0.120) ng/mL Total Protein (6.3-8.3) g/dL Albumin (3.5-5.0) g/dL Globulin (2.2-3.9) gm/dL Albumin/Globulin Ratio (1.0-2.1) Triglycerides (0-149) mg/dL Cholesterol (0-199) mg/dL LDL Cholesterol Direct (0-129) mg/dL HDL Cholesterol (30-70) mg/dL Lipase (23-300) U/L Free T4 (0.78-2.19) ng/dL TSH 3rd Generation (0.46-4.68) mIU/L Arterial Blood Potassium 5.7 H (3.6-5.2) mmol/L Urine Color (YELLOW) Urine Clarity (Clear) Urine pH (5.0-8.0) Ur Specific [place] (1.003-1.030) Urine Protein (NEGATIVE) mg/dL Urine Glucose (UA) (Normal) mg/dL Urine Ketones (NEGATIVE) mg/dL Urine Blood (NEGATIVE) Urine Nitrate (NEGATIVE) Urine Bilirubin (NEGATIVE) Urine Urobilinogen (0.2-1.0) mg/dL Ur Leukocyte Esterase (Negative) David/uL Urine WBC (Auto) (0-5) /hpf Urine RBC (Auto) (0-3) /hpf Influenza Typ A,B (EIA) (NEGATIVE) Ur L.pneumophila Ag (NEGATIVE) 07/13/17 07/13/17 07/13/17 Range/Units 21:04 20:04 20:04 WBC (4.8-10.8) K/uL RBC (4.40-5.90) Mil/uL Hgb (12.0-18.0) g/dL Hct (35.0-51.0) % MCV (80.0-94.0) fL MCH (27.0-31.0) pg MCHC (33.0-37.0) g/dL RDW (11.5-14.5) % Plt Count (130-400) K/uL MPV (7.2-11.7) fL Neut % (Auto) (50.0-75.0) % Lymph % (Auto) (20.0-40.0) % [place] % (Auto) (0.0-10.0) % Eos % (Auto) (0.0-4.0) % Baso % (Auto) (0.0-2.0) % Neut # (1.8-7.0) K/uL Lymph # (1.0-4.3) K/uL [place] # (0.0-0.8) K/uL Eos # (0.0-0.7) K/uL Baso # (0.0-0.2) K/uL Neutrophils % (Manual) (50-75) % Band Neutrophils % (0-2) % Lymphocytes % (Manual) (20-40) % Monocytes % (Manual) (0-10) % Platelet Estimate (NORMAL) Anisocytosis (manual) Rouleaux PT (9.7-12.2) SECONDS INR APTT (21-34) SECONDS Puncture Site pCO2 (35-45) mm/Hg pO2 (80-100) mm/Hg HCO3 (21-28) mmol/L ABG pH (7.35-7.45) ABG Total CO2 (22-28) mmol/L ABG O2 Saturation (95-98) % ABG Base Excess (-2.0-3.0) mmol/L ABG Hemoglobin (11.7-17.4) g/dL ABG Carboxyhemoglobin (0.5-1.5) % POC ABG HHb (Measured) (0.0-5.0) % ABG Methemoglobin (0.0-3.0) % Nj Test ABG Potassium (3.6-5.2) mmol/L A-a O2 Difference mm/Hg Respiratory Index Hgb O2 Saturation (95.0-98.0) % Glucose (75-110) mg/dl Lactate (0.7-2.1) mmol/L Liter Flow FiO2 % Sodium 132 (132-148) mmol/L Potassium 5.9 H (3.6-5.2) mmol/L Chloride 102 (98-107) mmol/L Carbon Dioxide 16 L (22-30) mmol/L Anion Gap 20 (10-20) BUN 38 H (9-20) mg/dL Creatinine 1.7 H (0.8-1.5) mg/dL Est GFR ( Amer) 47 Est GFR (Non-Af Amer) 39 POC Glucose (mg/dL) 263 H (65-110) mg/dL Random Glucose 234 H (75-110) mg/dL Hemoglobin A1c (4.2-6.5) % Lactic Acid (0.7-2.1) mmol/L Calcium 10.1 (8.6-10.4) mg/dl Phosphorus 3.2 (2.5-4.5) mg/dL Magnesium 1.9 (1.6-2.3) mg/dL Total Bilirubin 0.9 (0.2-1.3) mg/dL AST 53 (17-59) U/L ALT 70 (21-72) U/L Alkaline Phosphatase 105 (38-126) U/L Total Creatine Kinase 51 L (55-170) U/L CK-MB (Mass) 1.45 (0.0-3.38) ng/mL Troponin I, Quant < 0.0120 (0.00-0.120) ng/mL Total Protein 8.7 H (6.3-8.3) g/dL Albumin 4.5 (3.5-5.0) g/dL Globulin 4.1 H (2.2-3.9) gm/dL Albumin/Globulin Ratio 1.1 (1.0-2.1) Triglycerides (0-149) mg/dL Cholesterol (0-199) mg/dL LDL Cholesterol Direct (0-129) mg/dL HDL Cholesterol (30-70) mg/dL Lipase (23-300) U/L Free T4 1.05 (0.78-2.19) ng/dL TSH 3rd Generation 0.80 (0.46-4.68) mIU/L Arterial Blood Potassium (3.6-5.2) mmol/L Urine Color (YELLOW) Urine Clarity (Clear) Urine pH (5.0-8.0) Ur Specific [place] (1.003-1.030) Urine Protein (NEGATIVE) mg/dL Urine Glucose (UA) (Normal) mg/dL Urine Ketones (NEGATIVE) mg/dL Urine Blood (NEGATIVE) Urine Nitrate (NEGATIVE) Urine Bilirubin (NEGATIVE) Urine Urobilinogen (0.2-1.0) mg/dL Ur Leukocyte Esterase (Negative) David/uL Urine WBC (Auto) (0-5) /hpf Urine RBC (Auto) (0-3) /hpf Influenza Typ A,B (EIA) (NEGATIVE) Ur L.pneumophila Ag (NEGATIVE) 07/13/17 07/13/17 07/13/17 Range/Units 20:04 20:04 18:30 WBC 14.6 H D (4.8-10.8) K/uL RBC 4.23 L (4.40-5.90) Mil/uL Hgb 11.7 L (12.0-18.0) g/dL Hct 35.5 (35.0-51.0) % MCV 83.9 (80.0-94.0) fL MCH 27.8 (27.0-31.0) pg MCHC 33.1 (33.0-37.0) g/dL RDW 14.7 H (11.5-14.5) % Plt Count 284 (130-400) K/uL MPV 8.4 (7.2-11.7) fL Neut % (Auto) 90.8 H (50.0-75.0) % Lymph % (Auto) 4.8 L (20.0-40.0) % [place] % (Auto) 3.8 (0.0-10.0) % Eos % (Auto) 0.2 (0.0-4.0) % Baso % (Auto) 0.4 (0.0-2.0) % Neut # 13.3 H (1.8-7.0) K/uL Lymph # 0.7 L (1.0-4.3) K/uL [place] # 0.6 (0.0-0.8) K/uL Eos # 0.0 (0.0-0.7) K/uL Baso # 0.1 (0.0-0.2) K/uL Neutrophils % (Manual) 85 H (50-75) % Band Neutrophils % 2 (0-2) % Lymphocytes % (Manual) 7 L (20-40) % Monocytes % (Manual) 6 (0-10) % Platelet Estimate Normal (NORMAL) Anisocytosis (manual) Rouleaux Slight PT 11.4 (9.7-12.2) SECONDS INR 1.0 APTT 29 (21-34) SECONDS Puncture Site pCO2 (35-45) mm/Hg pO2 (80-100) mm/Hg HCO3 (21-28) mmol/L ABG pH (7.35-7.45) ABG Total CO2 (22-28) mmol/L ABG O2 Saturation (95-98) % ABG Base Excess (-2.0-3.0) mmol/L ABG Hemoglobin (11.7-17.4) g/dL ABG Carboxyhemoglobin (0.5-1.5) % POC ABG HHb (Measured) (0.0-5.0) % ABG Methemoglobin (0.0-3.0) % Nj Test ABG Potassium (3.6-5.2) mmol/L A-a O2 Difference mm/Hg Respiratory Index Hgb O2 Saturation (95.0-98.0) % Glucose (75-110) mg/dl Lactate (0.7-2.1) mmol/L Liter Flow FiO2 % Sodium (132-148) mmol/L Potassium (3.6-5.2) mmol/L Chloride (98-107) mmol/L Carbon Dioxide (22-30) mmol/L Anion Gap (10-20) BUN (9-20) mg/dL Creatinine (0.8-1.5) mg/dL Est GFR ( Amer) Est GFR (Non-Af Amer) POC Glucose (mg/dL) 178 H (65-110) mg/dL Random Glucose (75-110) mg/dL Hemoglobin A1c (4.2-6.5) % Lactic Acid (0.7-2.1) mmol/L Calcium (8.6-10.4) mg/dl Phosphorus (2.5-4.5) mg/dL Magnesium (1.6-2.3) mg/dL Total Bilirubin (0.2-1.3) mg/dL AST (17-59) U/L ALT (21-72) U/L Alkaline Phosphatase (38-126) U/L Total Creatine Kinase (55-170) U/L CK-MB (Mass) (0.0-3.38) ng/mL Troponin I, Quant (0.00-0.120) ng/mL Total Protein (6.3-8.3) g/dL Albumin (3.5-5.0) g/dL Globulin (2.2-3.9) gm/dL Albumin/Globulin Ratio (1.0-2.1) Triglycerides (0-149) mg/dL Cholesterol (0-199) mg/dL LDL Cholesterol Direct (0-129) mg/dL HDL Cholesterol (30-70) mg/dL Lipase (23-300) U/L Free T4 (0.78-2.19) ng/dL TSH 3rd Generation (0.46-4.68) mIU/L Arterial Blood Potassium (3.6-5.2) mmol/L Urine Color (YELLOW) Urine Clarity (Clear) Urine pH (5.0-8.0) Ur Specific [place] (1.003-1.030) Urine Protein (NEGATIVE) mg/dL Urine Glucose (UA) (Normal) mg/dL Urine Ketones (NEGATIVE) mg/dL Urine Blood (NEGATIVE) Urine Nitrate (NEGATIVE) Urine Bilirubin (NEGATIVE) Urine Urobilinogen (0.2-1.0) mg/dL Ur Leukocyte Esterase (Negative) David/uL Urine WBC (Auto) (0-5) /hpf Urine RBC (Auto) (0-3) /hpf Influenza Typ A,B (EIA) (NEGATIVE) Ur L.pneumophila Ag (NEGATIVE) Laboratory Results - last 24 hr 07/13/17 07/13/17 07/13/17 18:30 20:04 20:04 WBC 14.6 H D RBC 4.23 L Hgb 11.7 L Hct 35.5 MCV 83.9 MCH 27.8 MCHC 33.1 RDW 14.7 H Plt Count 284 MPV 8.4 Neut % (Auto) 90.8 H Lymph % (Auto) 4.8 L [place] % (Auto) 3.8 Eos % (Auto) 0.2 Baso % (Auto) 0.4 Neut # 13.3 H Lymph # 0.7 L [place] # 0.6 Eos # 0.0 Baso # 0.1 Neutrophils % (Manual) 85 H Band Neutrophils % 2 Lymphocytes % (Manual) 7 L Monocytes % (Manual) 6 Platelet Estimate Normal Anisocytosis (manual) Rouleaux Slight PT 11.4 INR 1.0 APTT 29 Puncture Site pCO2 pO2 HCO3 ABG pH ABG Total CO2 ABG O2 Saturation ABG Base Excess ABG Hemoglobin ABG Carboxyhemoglobin POC ABG HHb (Measured) ABG Methemoglobin Nj Test ABG Potassium A-a O2 Difference Respiratory Index Hgb O2 Saturation Glucose Lactate Liter Flow FiO2 Sodium Potassium Chloride Carbon Dioxide Anion Gap BUN Creatinine Est GFR ( Amer) Est GFR (Non-Af Amer) POC Glucose (mg/dL) 178 H Random Glucose Hemoglobin A1c Lactic Acid Calcium Phosphorus Magnesium Total Bilirubin AST ALT Alkaline Phosphatase Total Creatine Kinase CK-MB (Mass) Troponin I, Quant Total Protein Albumin Globulin Albumin/Globulin Ratio Triglycerides Cholesterol LDL Cholesterol Direct HDL Cholesterol Lipase Free T4 TSH 3rd Generation Arterial Blood Potassium Urine Color Urine Clarity Urine pH Ur Specific [place] Urine Protein Urine Glucose (UA) Urine Ketones Urine Blood Urine Nitrate Urine Bilirubin Urine Urobilinogen Ur Leukocyte Esterase Urine WBC (Auto) Urine RBC (Auto) Influenza Typ A,B (EIA) Ur L.pneumophila Ag 07/13/17 07/13/17 07/13/17 20:04 20:04 21:04 WBC RBC Hgb Hct MCV MCH MCHC RDW Plt Count MPV Neut % (Auto) Lymph % (Auto) [place] % (Auto) Eos % (Auto) Baso % (Auto) Neut # Lymph # [place] # Eos # Baso # Neutrophils % (Manual) Band Neutrophils % Lymphocytes % (Manual) Monocytes % (Manual) Platelet Estimate Anisocytosis (manual) Rouleaux PT INR APTT Puncture Site pCO2 pO2 HCO3 ABG pH ABG Total CO2 ABG O2 Saturation ABG Base Excess ABG Hemoglobin ABG Carboxyhemoglobin POC ABG HHb (Measured) ABG Methemoglobin Nj Test ABG Potassium A-a O2 Difference Respiratory Index Hgb O2 Saturation Glucose Lactate Liter Flow FiO2 Sodium 132 Potassium 5.9 H Chloride 102 Carbon Dioxide 16 L Anion Gap 20 BUN 38 H Creatinine 1.7 H Est GFR ( Amer) 47 Est GFR (Non-Af Amer) 39 POC Glucose (mg/dL) 263 H Random Glucose 234 H Hemoglobin A1c Lactic Acid Calcium 10.1 Phosphorus 3.2 Magnesium 1.9 Total Bilirubin 0.9 AST 53 ALT 70 Alkaline Phosphatase 105 Total Creatine Kinase 51 L CK-MB (Mass) 1.45 Troponin I, Quant < 0.0120 Total Protein 8.7 H Albumin 4.5 Globulin 4.1 H Albumin/Globulin Ratio 1.1 Triglycerides Cholesterol LDL Cholesterol Direct HDL Cholesterol Lipase Free T4 1.05 TSH 3rd Generation 0.80 Arterial Blood Potassium Urine Color Urine Clarity Urine pH Ur Specific [place] Urine Protein Urine Glucose (UA) Urine Ketones Urine Blood Urine Nitrate Urine Bilirubin Urine Urobilinogen Ur Leukocyte Esterase Urine WBC (Auto) Urine RBC (Auto) Influenza Typ A,B (EIA) Ur L.pneumophila Ag 07/13/17 07/14/17 07/14/17 22:06 05:30 06:20 WBC 17.4 H RBC 4.89 Hgb 13.5 Hct 42.4 MCV 86.6 D MCH 27.7 MCHC 32.0 L RDW 15.4 H Plt Count 248 MPV 9.2 Neut % (Auto) 91.9 H Lymph % (Auto) 2.0 L [place] % (Auto) 5.3 Eos % (Auto) 0.0 Baso % (Auto) 0.8 Neut # 16.0 H Lymph # 0.4 L [place] # 0.9 H Eos # 0.0 Baso # 0.1 Neutrophils % (Manual) 69 Band Neutrophils % 21 H* Lymphocytes % (Manual) 6 L Monocytes % (Manual) 4 Platelet Estimate Normal Anisocytosis (manual) Slight Rouleaux PT INR APTT Puncture Site Rb pCO2 26 L pO2 80 HCO3 18.6 L ABG pH 7.38 ABG Total CO2 16.2 L ABG O2 Saturation 97.4 ABG Base Excess -8.0 L ABG Hemoglobin ABG Carboxyhemoglobin POC ABG HHb (Measured) ABG Methemoglobin Nj Test Na ABG Potassium 5.7 H A-a O2 Difference Respiratory Index Hgb O2 Saturation Glucose 318 H Lactate 3.0 H Liter Flow 2.0 FiO2 Sodium 137.0 Potassium Chloride 105.0 Carbon Dioxide Anion Gap BUN Creatinine Est GFR ( Amer) Est GFR (Non-Af Amer) POC Glucose (mg/dL) 218 H Random Glucose Hemoglobin A1c Lactic Acid Calcium Phosphorus Magnesium Total Bilirubin AST ALT Alkaline Phosphatase Total Creatine Kinase CK-MB (Mass) Troponin I, Quant Total Protein Albumin Globulin Albumin/Globulin Ratio Triglycerides Cholesterol LDL Cholesterol Direct HDL Cholesterol Lipase Free T4 TSH 3rd Generation Arterial Blood Potassium 5.7 H Urine Color Urine Clarity Urine pH Ur Specific [place] Urine Protein Urine Glucose (UA) Urine Ketones Urine Blood Urine Nitrate Urine Bilirubin Urine Urobilinogen Ur Leukocyte Esterase Urine WBC (Auto) Urine RBC (Auto) Influenza Typ A,B (EIA) Ur L.pneumophila Ag 07/14/17 07/14/17 07/14/17 06:22 08:37 08:47 WBC RBC Hgb Hct MCV MCH MCHC RDW Plt Count MPV Neut % (Auto) Lymph % (Auto) [place] % (Auto) Eos % (Auto) Baso % (Auto) Neut # Lymph # [place] # Eos # Baso # Neutrophils % (Manual) Band Neutrophils % Lymphocytes % (Manual) Monocytes % (Manual) Platelet Estimate Anisocytosis (manual) Rouleaux PT INR APTT Puncture Site pCO2 pO2 HCO3 ABG pH ABG Total CO2 ABG O2 Saturation ABG Base Excess ABG Hemoglobin ABG Carboxyhemoglobin POC ABG HHb (Measured) ABG Methemoglobin Nj Test ABG Potassium A-a O2 Difference Respiratory Index Hgb O2 Saturation Glucose Lactate Liter Flow FiO2 Sodium 135 Potassium 5.6 H Chloride 101 Carbon Dioxide 13 L Anion Gap 27 H BUN 33 H Creatinine 1.6 H Est GFR ( Amer) 50 Est GFR (Non-Af Amer) 42 POC Glucose (mg/dL) 281 H Random Glucose 259 H Hemoglobin A1c Lactic Acid Calcium 10.2 Phosphorus 3.9 Magnesium 1.9 Total Bilirubin 0.9 AST 51 ALT 69 Alkaline Phosphatase 95 Total Creatine Kinase 247 H CK-MB (Mass) 4.82 H Troponin I, Quant 0.0130 Total Protein 9.0 H Albumin 4.8 Globulin 4.2 H Albumin/Globulin Ratio 1.1 Triglycerides 162 H D Cholesterol 360 H LDL Cholesterol Direct 223 H HDL Cholesterol 43 Lipase 207 Free T4 TSH 3rd Generation Arterial Blood Potassium Urine Color Urine Clarity Urine pH Ur Specific [place] Urine Protein Urine Glucose (UA) Urine Ketones Urine Blood Urine Nitrate Urine Bilirubin Urine Urobilinogen Ur Leukocyte Esterase Urine WBC (Auto) Urine RBC (Auto) Influenza Typ A,B (EIA) Ur L.pneumophila Ag Negative 07/14/17 07/14/17 07/14/17 08:48 09:57 10:52 WBC RBC Hgb Hct MCV MCH MCHC RDW Plt Count MPV Neut % (Auto) Lymph % (Auto) [place] % (Auto) Eos % (Auto) Baso % (Auto) Neut # Lymph # [place] # Eos # Baso # Neutrophils % (Manual) Band Neutrophils % Lymphocytes % (Manual) Monocytes % (Manual) Platelet Estimate Anisocytosis (manual) Rouleaux PT INR APTT Puncture Site Rb pCO2 26 L pO2 77 L HCO3 22.1 ABG pH 7.47 H ABG Total CO2 19.7 L ABG O2 Saturation 98.1 H ABG Base Excess -3.6 L ABG Hemoglobin 11.2 L ABG Carboxyhemoglobin 2.1 H POC ABG HHb (Measured) 1.8 ABG Methemoglobin 1.1 Nj Test Na ABG Potassium A-a O2 Difference 83.0 Respiratory Index 1.1 Hgb O2 Saturation 95.1 Glucose Lactate Liter Flow 2.0 FiO2 27.0 Sodium Potassium Chloride Carbon Dioxide Anion Gap BUN Creatinine Est GFR ( Amer) Est GFR (Non-Af Amer) POC Glucose (mg/dL) Random Glucose Hemoglobin A1c 8.3 H Lactic Acid Calcium Phosphorus Magnesium Total Bilirubin AST ALT Alkaline Phosphatase Total Creatine Kinase CK-MB (Mass) Troponin I, Quant Total Protein Albumin Globulin Albumin/Globulin Ratio Triglycerides Cholesterol LDL Cholesterol Direct HDL Cholesterol Lipase Free T4 TSH 3rd Generation Arterial Blood Potassium Urine Color Urine Clarity Urine pH Ur Specific [place] Urine Protein Urine Glucose (UA) Urine Ketones Urine Blood Urine Nitrate Urine Bilirubin Urine Urobilinogen Ur Leukocyte Esterase Urine WBC (Auto) Urine RBC (Auto) Influenza Typ A,B (EIA) Negative for flu a/b Ur L.pneumophila Ag 07/14/17 07/14/17 07/14/17 11:23 11:23 11:39 WBC RBC Hgb Hct MCV MCH MCHC RDW Plt Count MPV Neut % (Auto) Lymph % (Auto) [place] % (Auto) Eos % (Auto) Baso % (Auto) Neut # Lymph # [place] # Eos # Baso # Neutrophils % (Manual) Band Neutrophils % Lymphocytes % (Manual) Monocytes % (Manual) Platelet Estimate Anisocytosis (manual) Rouleaux PT INR APTT Puncture Site pCO2 pO2 HCO3 ABG pH ABG Total CO2 ABG O2 Saturation ABG Base Excess ABG Hemoglobin ABG Carboxyhemoglobin POC ABG HHb (Measured) ABG Methemoglobin Nj Test ABG Potassium A-a O2 Difference Respiratory Index Hgb O2 Saturation Glucose Lactate Liter Flow FiO2 Sodium Potassium Chloride Carbon Dioxide Anion Gap BUN Creatinine Est GFR ( Amer) Est GFR (Non-Af Amer) POC Glucose (mg/dL) 221 H Random Glucose Hemoglobin A1c Lactic Acid 2.2 H Calcium Phosphorus Magnesium Total Bilirubin AST ALT Alkaline Phosphatase Total Creatine Kinase CK-MB (Mass) Troponin I, Quant Total Protein Albumin Globulin Albumin/Globulin Ratio Triglycerides Cholesterol LDL Cholesterol Direct HDL Cholesterol Lipase Free T4 TSH 3rd Generation Arterial Blood Potassium Urine Color Yellow Urine Clarity Clear Urine pH 5.0 Ur Specific [place] 1.020 Urine Protein 2+ H Urine Glucose (UA) 2+ H Urine Ketones Negative Urine Blood Negative Urine Nitrate Negative Urine Bilirubin Negative Urine Urobilinogen Normal Ur Leukocyte Esterase Neg Urine WBC (Auto) 1 Urine RBC (Auto) < 1 Influenza Typ A,B (EIA) Ur L.pneumophila Ag 07/14/17 07/14/17 07/14/17 15:57 16:05 16:12 WBC 15.3 H RBC 3.67 L Hgb 10.3 L D Hct 30.7 L MCV 83.7 D MCH 28.1 MCHC 33.5 RDW 14.7 H Plt Count 225 MPV 8.5 Neut % (Auto) Lymph % (Auto) [place] % (Auto) Eos % (Auto) Baso % (Auto) Neut # Lymph # [place] # Eos # Baso # Neutrophils % (Manual) Band Neutrophils % Lymphocytes % (Manual) Monocytes % (Manual) Platelet Estimate Anisocytosis (manual) Rouleaux PT INR APTT Puncture Site pCO2 pO2 HCO3 ABG pH ABG Total CO2 ABG O2 Saturation ABG Base Excess ABG Hemoglobin ABG Carboxyhemoglobin POC ABG HHb (Measured) ABG Methemoglobin Nj Test ABG Potassium A-a O2 Difference Respiratory Index Hgb O2 Saturation Glucose Lactate Liter Flow FiO2 Sodium 132 Potassium 4.2 Chloride 96 L Carbon Dioxide 21 L Anion Gap 19 BUN 40 H Creatinine 2.0 H Est GFR ( Amer) 39 Est GFR (Non-Af Amer) 32 POC Glucose (mg/dL) 253 H Random Glucose 231 H Hemoglobin A1c Lactic Acid Calcium 9.0 Phosphorus Magnesium Total Bilirubin 1.1 AST 39 ALT 52 Alkaline Phosphatase 63 Total Creatine Kinase 248 H CK-MB (Mass) 3.42 H Troponin I, Quant 0.0330 Total Protein 6.6 Albumin 4.1 Globulin 2.5 Albumin/Globulin Ratio 1.6 Triglycerides Cholesterol LDL Cholesterol Direct HDL Cholesterol Lipase Free T4 TSH 3rd Generation Arterial Blood Potassium Urine Color Urine Clarity Urine pH Ur Specific [place] Urine Protein Urine Glucose (UA) Urine Ketones Urine Blood Urine Nitrate Urine Bilirubin Urine Urobilinogen Ur Leukocyte Esterase Urine WBC (Auto) Urine RBC (Auto) Influenza Typ A,B (EIA) Ur L.pneumophila Ag EKG/Cardiology Studies: Cardiology / EKG Studies 07/13/17 18:05 EKG [ELECTROCARDIOGRAM] Stat Comment: Mode Of Transportation: Reason For Exam: chest pain, rapid Isolation: Contact 07/14/17 01:16 EKG [ELECTROCARDIOGRAM] Routine Comment: Mode Of Transportation: PORTABLE Reason For Exam: C/P Isolation: Contact Critical Care Progress Note - Nutrition Nutrition: Nutrition Category Date Time Status NPO Diet [DIET] Diets 07/14/17 Dinner Active Attending/Attestation - Attestation I have personally seen and examined this patient.: Yes I have fully participated in the care of the patient.: Yes I have reviewed all pertinent clinical information: Yes Notes (Text): 07/14/17 18:00 Patient seen and examined in the intensive care unit. Case discussed with the staff in the morning pounds. Patient seen by surgery and gastroenterology for possible perforation Patient is status post "sepsis Continue IV antibiotics Follow-up lactate level Triple-lumen catheter inserted For upper GI series
[2017-07-14] MEDS ORDERED: Iodixanol 320 MG/ML 100 ML BOTTLE IV ONE (17:32)
--- NOTE | 2017-07-14 17:41 | PCM.SEPTIC ---
Sepsis Progress Note - Reassessment Type Date of Evaluation: 07/14/17 Time of Evaluation: 12:40 Reassessment Type: Non-invasive reassessment - Non Invasive Reassessment Were the most recent vital sign reviewed: Yes Vital Sign (Latest): Temp Pulse Resp BP Pulse Ox 97.9 F 87 32 H 110/58 L 93 L 07/14/17 00:30 07/14/17 17:00 07/14/17 17:00 07/14/17 16:58 07/14/17 17:00 Cardiovascular: Yes: Chest Non Tender, Tachycardia Respiratory: Yes: Decreased Breath Sounds, Rhonchi Capillary Refill: Normal (Less than 2 sec) Pulses: Normal Radial, Normal Dorsalis Pedis, Normal Posterior Tibialis Skin: Normal Color, Warm - Invasive Reassessment (complete 2 of 4) Was a Central Venous Pressure Measurement obtained within 6 Hours after the presentation of septic shock: No Was a central venous oxygen measurement obtained within 6 hours after the presentation of septic shock: No Was a bedside cardiovascular ultrasound performed within 6 hours after the presentation of septic shock: No Was a passive leg raise performed or was a fluid challenge performed within 6 hrs of the initial fluid bolus: No Passive Leg Raise Result: Not Applicable
--- NOTE | 2017-07-14 18:28 | CT ---
PROCEDURE: CT Abdomen and Pelvis without intravenous contrast HISTORY: r/o duodenal perf COMPARISON: CT of the abdomen and pelvis obtained at 12:50 a.m. same day TECHNIQUE: Without IV contrast. Oral contrast was given. Contrast Dose: Radiation dose: Total exam DLP = 724 mGy-cm. This CT exam was performed using one or more of the following dose reduction techniques: Automated exposure control, adjustment of the mA and/or kV according to patient size, and/or use of iterative reconstruction technique. FINDINGS: LOWER THORAX: As seen on the earlier exam there is some gas and fluid around the left lobe of the liver and along the inferior vena cava. This pattern is unchanged. Oral contrast material was given for this exam which shows no evidence of extravasation from the stomach or duodenum to suggest perforation. The etiology of the gas collection is uncertain. LIVER: A fluid collection is seen along the superior border of the left lobe. This contains a small amount of air. The location of the collection is most likely subcapsular. GALLBLADDER AND BILE DUCTS: Gallbladder removed PANCREAS: Unremarkable. No gross lesion or ductal dilatation. SPLEEN: Unremarkable. ADRENALS: Unremarkable. No mass. KIDNEYS AND URETERS: Unremarkable. No hydronephrosis. No solid mass. VASCULATURE: Unremarkable. No aortic aneurysm. BOWEL: Unremarkable. No obstruction. No gross mural thickening. APPENDIX: Unremarkable. Normal appendix. PERITONEUM: Unremarkable. No free fluid. No free air. LYMPH NODES: Unremarkable. No enlarged lymph nodes. BLADDER: A Pacheco catheter is seen in place REPRODUCTIVE: Unremarkable. BONES: No acute fracture. OTHER FINDINGS: None. IMPRESSION: As seen on the earlier exam there is some gas and fluid around the left lobe of the liver and along the inferior vena cava. This pattern is unchanged. Oral contrast material was given for this exam which shows no evidence of extravasation from the stomach or duodenum to suggest perforation. The etiology of the gas collection is uncertain.
[2017-07-14 22:57] LABS: BASO % 0.3 % (0.0-2.0); HEMATOCRIT 28.3 % (35.0-51.0); LYMPH # 1.1 K/uL (1.0-4.3); LYMPH % 7.2 % (20.0-40.0); MEAN CELL VOLUME 83.4 fL (80.0-94.0); MEAN CORPUSCULAR HGB CONC 33.6 g/dL (33.0-37.0); MEAN PLATELET VOLUME 8.9 fL (7.2-11.7); MONO # 0.7 K/uL (0.0-0.8); MONO % 4.8 % (0.0-10.0); PLATELET COUNT 200 K/uL (130-400); RED CELL DISTRIBUTION WIDTH 14.6 % (11.5-14.5); WHITE BLOOD COUNT 14.9 K/uL (4.8-10.8)
[2017-07-14 23:09] LABS: ALB/GLOB RATIO 1.5 (1.0-2.1); CALCIUM 8.3 mg/dl (8.6-10.4)
[2017-07-15 01:41] LABS: BASOPHIL 1 % (0-2); METAMYELOCYTE 2 % (0-0); NEUTROPHIL 78 % (50-75); TOTAL CELLS COUNTED 100
[2017-07-15] MEDS: Meropenem 500 MG in Dextrose 5% In Water 100 ML IVPB SCH ×4 (05:00→23:56)
[2017-07-15 06:22] LABS: DRAW SITE RB
[2017-07-15] MEDS: Levothyroxine 50 MCG TAB PO SCH (06:30)
[2017-07-15 06:42] LABS: BASO # 0.1 K/uL (0.0-0.2); BASO % 0.4 % (0.0-2.0); EOS % 0.1 % (0.0-4.0); HEMATOCRIT 27.6 % (35.0-51.0); LYMPH # 1.2 K/uL (1.0-4.3); LYMPH % 8.1 % (20.0-40.0); MEAN CELL VOLUME 83.4 fL (80.0-94.0); MEAN CORPUSCULAR HEMOGLOBIN 28.6 pg (27.0-31.0); MEAN CORPUSCULAR HGB CONC 34.3 g/dL (33.0-37.0); MEAN PLATELET VOLUME 9.1 fL (7.2-11.7); MONO # 0.6 K/uL (0.0-0.8); MONO % 4.2 % (0.0-10.0); PLATELET COUNT 190 K/uL (130-400); RED CELL DISTRIBUTION WIDTH 14.7 % (11.5-14.5); WHITE BLOOD COUNT 14.8 K/uL (4.8-10.8)
[2017-07-15 06:52] LABS: POTASSIUM 3.8 mmol/L (3.6-5.2)
[2017-07-15 06:55] LABS: BILIRUBIN,TOTAL 0.8 mg/dL (0.2-1.3); PHOSPHOROUS 3.6 mg/dL (2.5-4.5); TOTAL PROTEIN 6.4 g/dL (6.3-8.3)
[2017-07-15 06:56] LABS: MAGNESIUM 1.4 mg/dL (1.6-2.3)
--- NOTE | 2017-07-15 09:02 | CP.PCM.PN ---
Subjective - Date & Time of Evaluation Date of Evaluation: 07/15/17 Time of Evaluation: 08:40 - Subjective Subjective: Hospitalist Progress Note Patient was seen and examined at 8:40 AM 07/15/17 ICU Bed #18 82 year old male with extensive medical history (please see Assessment and Plans below) who underwent ERCP for removal of CBD Stent on 07/13/17 after which he complained of abdominal and chest pain. A rapid response was called. CT Chest revealed pneumobilia as well as possible free air beneath Right Hemidiaphragm within Paraesophageal Soft Tissues. CT Abdomen/Pelvis revealed gas fluid and stranding in the subcapsular and extracapsular area around Left Lobe Liver. NGT was placed, patient made NPO, and was then transferred to ICU for further treatment and evaluation. Repeat CT Abdomen/Pelvis on 07/14/17 showed gas and fluid around left lobe liver and along inferior vena cava that is unchanged, no evidence of extravasation of oral contrast from stomach or duodenem. GI Dr. Damian will be speaking with IR to see if a drain can be placed in the Right Upper Quadrant for removal of fluid/gas. Upon FULL ROS: Generalized Chest Pain pressure like is unchanged Generalized Abdominal Pain gas like and is unchanged Exam: Physical Exam - Constitutional Appears: Appears to be in pain and is in and out of consciousness but does participate in exam. He is on 50% Nonrebreather - Head Exam Head Exam: NORMAL INSPECTION, NORMOCEPHALIC - Eye Exam Eye Exam: EOMI, Normal appearance - ENT Exam ENT Exam: Mucous Membranes Moist, NGT in place with production of 300 ml of dark green fluid (however I could not find documentation as whether this was since the time of my exam on 07/14/17) - Neck Exam Neck exam: Positive for: Full Rom, Normal Inspection. Right Triple Lumen Catheter in place with no signs of surrounding cellulitis - Respiratory Exam Respiratory Exam: Clear to Auscultation Bilateral, NORMAL BREATHING PATTERN. This exam is limited by patient not breathing in deeply and exhaling as instructed. absent: Decreased Breath Sounds, Rhonchi, Wheezes - Cardiovascular Exam Cardiovascular Exam: REGULAR RHYTHM, +S1, +S2 - GI/Abdominal Exam GI & Abdominal Exam: Distended, Normal Bowel Sounds, Tenderness diffusely as per patient (who moans whenever he is palpated in any of the quadrants), NO guarding/NO rebound tenderness. absent: Rigid - Extremities Exam Extremities exam: Positive for: normal inspection, Pulses are strong and equal , Capillary Refill is 2 seconds, NO edema - Back Exam Back exam: This was not done this morning - Neurological Exam Neurological exam: In and out of consciousness but does participate in exam and anwer "yes" and "no" questions in sinhala - Psychiatric Exam Psychiatric exam: NOT performed this morning - Skin Skin Exam: Left Lower Buttock 0.2 cm area of former I&D site that has dry eschar. NON tender to palpation. Some hardness around this site but NO erythema , NO edema, and NO warmth. Assessment and Plan: Assessment & Plan (1) Chest pain Assessment and Plan: Patient with atypical chest pain. Cardio Dr. Chau does not feel that this is cardiac related Troponins are negative TSH, Free T4 are normal F/u ECHO report Status: Acute (2) Abdominal pain Likely Secondary to Gas/Fluid Arond Left Lobe Liver Assessment and Plan: s/p ERCP with removal of stent and sphincterotomy with Dr. Damian 07/13/17 CXR 07/13/17 does not show air under diaphragm. Chest CT 07/13/17 shows pneumobilia as well as possible free air beneath Right Hemidiaphragm within Paraesophagel soft tissues. CT Abdomen/Pelvis 07/13/17 shows gas fluid and stranding in the subcapsular and extracapsular area around Left Lobe Liver. CT Abdomen/Pelvis on 07/14/17 showed gas and fluid around left lobe liver and along inferior vena cava that is unchanged, no evidence of extravasation of oral contrast from stomach or duodenem. I spoke with Critical Care Physician Dr. Kowalski and he informed me that GI Dr. Damian will be speaking with IR to see if a drain can be placed in the Right Upper Quadrant for removal of fluid/gas. NGT in place 300 ml of dark green fluid (however I could not find documentation as whether this was since the time of my exam on 07/14/17) Surgery Dr. Crawford consulted: no surgical intervention at this time and keep NPO with NGT for now Status: Acute (3) Bilateral Pneumonia CT Abdomen/Pelvis 07/13/17 showed bibasilar lingular and right middle lobe mild nonspecific infiltrates consistent with atelectasis/pneumonia As patient was admitted to hospital within the last month (for Left Buttock Abscess) and has been on antibiotics, this is likely Health Care Associated Pneumonia with increased risk for Multidrug Resistence therefore he was started on the following: Meropenem 500 mg IV Q6H (07/14/17) Ciprofloxacin 400 mg IV Q12H (07/14/17) Vancomycin 1 gm IV Q24H (07/14/17) F/U Vancomycin Trough Thursday07/17/17 at 8:30 AM prior to 4th dose Urine Legionella Ag is negative F/U Urine Strep pneumoniae Ag F/U Mycoplasma IgM and IgG Influenza A/B is negative F/U Blood and Urine Cultures ID Dr. Langford is following Status: Acute (4). Anion Gap Metabolic Acidosis Sepsis: CODE SEPSIS was called 07/14/17 See Assessment and Plans #2 and #3 Due to the severe acidosis he was also started on D5W with 3 amps of NaHCO3 running at 100 ml/hour and this has resolved this issue therefore the D5W NaHCO3 was discontinued 07/15/17 Status: Acute (5). Hyperkalemia Likely secondary to the Anion Gap Metabolic Acidosis See Assessment and Plans #2 and #3 This has resolved Status: Acute (6). CKD Stage [address] Oconnell Consult for further recommendations Patient's Renal function is worsening and he has been started on NS at 100 ml/ hr 07/15/17 Satus: Chronic (7). Headache with Hx CVA Assessment and Plan: CT Head 07/13/17 was negative for bleed or acute process If NO surgical/IR intervention will then restart ASA Plavix 75 mg PO 1x/day Status: Acute (8) AD (Alzheimer's disease) Assessment and Plan: Resume home Aricept 10 mg PO daily. Status: Chronic (9) Choledocholithiasis Assessment and Plan: s/p ERCP with removal of stent and sphincterotomy with Dr. Damian 07/13/17 Status: Acute (10) Anemia Assessment and Plan: Likely secondary to Chronic Disease: CKD Stage III Resume Ferrous Sulfate 325 mg PO daily. HgB/Hct are stable Status: Chronic (11) Hx Left Gluteal abscess Assessment and Plan: Was I&D by surgery team on 06/26/17 Treated with Bactrim 800/160 PO Q12H for 7 days S/P discharge 06/27/17 Status: Chronic (12) HLD (hyperlipidemia) Assessment and Plan: Start home meds: Lopid 600 mg PO BID Patient takes Lipitor 80 mg PO HS which is not on formulary. Crestor 10 mg PO HS (renal dosed). Status: Chronic (13) HTN (hypertension) Assessment and Plan: As the patient's blood pressure is on the low end the following medications were placed on HOLD: Amlodipine 10 mg PO daily, Metoprolol XL 100 mg PO daily, and Losartan 100 mg PO daily are all on HOLD Patient was started on NS @ 100 ml/hour Status: Chronic (14) Hx of stroke without residual deficits Assessment and Plan: CT Head 07/13/17 was negative for bleed or acute process Patient takes Lipitor 80 mg PO HS. Will Start Crestor 10 mg PO HS (renal dosed). Hold ASA surgery/IR team recommendations are for the findings on CT Abdomen/ Pelvis Plavix 75 mg PO 1x/day Status: Chronic (15) Diabetes Assessment and Plan: Patient is NPO. ISS Q6H Accuchecks Q6H Status: Chronic (16) History of hypothyroidism Assessment and Plan: Levothyroxine 50 mcg PO daily TSH, Free T4 are normal Status: Chronic (17) Overactive bladder Assessment and Plan: Festerodine 8 mg PO 1x/day Enlarged Prostate on CT Abdomen/Pelvis PSA ordered 07/14/17 but I do not see results. I believe he can follow this up as an outpatient. Status: Chronic (18) Hx of glaucoma Assessment and Plan: Patient's home med Travatan ggt not on formulary. Started Xalatan ggt in bilateral eyes. Status: Chronic (19) Hx of gastroesophageal reflux (GERD) Assessment and Plan: Protonix 10 mg IV daily Status: Chronic (20) Prophylactic measure Assessment and Plan: Protonix 10 mg daily SCDs Hold chemical anticoagulation for now for reasons mentioned above Ascorbic Acid 250 mg PO daily Florastor 250 mg PO 2x/day Zofran 4 mg IV Q6H PRN N/V Morphine 1 mg IV Q3H PRN Moderate Pain Morphine 2 mg IV Q3H PRN Severe Pain Cyproheptadine 4 mg PO 2x/day Benzocaine/Menthol 1 love Q2H PRN sore throat I called patient's PMD Dr. Sullivan's office and left a message for her to call me back on my cell phone concerning this patient. Jonnathan Malin D.O. Objective - Vital Signs/Intake and Output Vital Signs (last 24 hours): Temp Pulse Resp BP Pulse Ox 97.9 F 91 H 36 H 102/44 L 90 L 07/14/17 00:30 07/15/17 06:30 07/15/17 06:30 07/15/17 06:07 07/15/17 06:30 Intake and Output: 07/15/17 07/15/17 06:59 18:59 Intake Total 1380 Output Total 620 Balance 760 - Medications Medications: Current Medications Amlodipine Besylate (Norvasc) 10 mg PO DAILY [facility] Last Admin: 07/14/17 09:56 Dose: Not Given Ascorbic Acid (Vitamin C 250 Mg Tab) 250 mg PO DAILY [facility] Last Admin: 07/14/17 09:57 Dose: Not Given Benzocaine/Menthol (Cepacol Sore Throat) 1 love MT Q2 PRN PRN Reason: Sore Throat Clopidogrel Bisulfate (Plavix) 75 mg PO DAILY [facility] Cyproheptadine HCl (Periactin) 4 mg PO BID [facility] Last Admin: 07/14/17 20:54 Dose: Not Given Donepezil HCl (Aricept) 10 mg PO HS [facility] Last Admin: 07/14/17 22:00 Dose: Not Given Ferrous Sulfate (Feosol) 325 mg PO Q12H [facility] Last Admin: 07/15/17 06:45 Dose: Not Given Gemfibrozil (Lopid) 600 mg PO BID [facility] Last Admin: 07/14/17 17:35 Dose: Not Given Home Med (Fesoterodine Fumarate [Toviaz]) 8 mg PO DAILY [facility] Ciprofloxacin (Cipro 400mg/200ml Dsw) 400 mg in 200 mls @ 133 mls/hr IVPB Q12H [facility] Last Admin: 07/14/17 19:59 Dose: 133 mls/hr Vancomycin/Sodium Chloride (Vancomycin 1 Gm/Ns 200 Ml) 1 gm in 200 mls @ 133.333 mls/hr IVPB Q24H [facility] Stop: 07/19/17 11:01 Last Admin: 07/14/17 11:17 Dose: 133.333 mls/hr Meropenem 500 mg/ Dextrose 100 mls @ 100 mls/hr IVPB Q6 [facility] Last Admin: 07/15/17 05:00 Dose: 100 mls/hr Magnesium Sulfate/Dextrose (Magnesium Sulfate 1 Gm/100 Ml D5w) 1 gm in 100 mls @ 300 mls/hr IVPB Q30M [facility] Stop: 07/15/17 09:04 Sodium Chloride (Sodium Chloride 0.9%) 1,000 mls @ 100 mls/hr IV .Q10H [facility] Insulin Human Regular (Novolin R) 0 unit SC ACHS [facility] PRN Reason: Protocol Last Admin: 07/14/17 22:00 Dose: Not Given Latanoprost (Xalatan Opht) 0 ml OU HS [facility] Last Admin: 07/14/17 22:00 Dose: 2.5 ml Levothyroxine Sodium (Synthroid) 50 mcg PO DAILY@0630 [facility] Last Admin: 07/15/17 06:30 Dose: Not Given Meclizine HCl (Antivert) 12.5 mg PO TID [facility] Last Admin: 07/14/17 19:00 Dose: Not Given Metoprolol Succinate (Toprol Xl) 100 mg PO DAILY [facility] Last Admin: 07/14/17 13:41 Dose: 100 mg Morphine Sulfate (Morphine) 1 mg IV Q3 PRN PRN Reason: Pain, moderate (4-7) Morphine Sulfate (Morphine) 2 mg IVP Q3 PRN PRN Reason: Pain, severe (8-10) Last Admin: 07/15/17 02:05 Dose: 2 mg Ondansetron HCl (Zofran Inj) 4 mg IVP Q6 PRN PRN Reason: Nausea/Vomiting Pantoprazole Sodium (Protonix Inj) 40 mg IVP DAILY [facility] Last Admin: 07/14/17 09:55 Dose: 40 mg Rosuvastatin Calcium (Crestor) 10 mg PO HS [facility] Last Admin: 07/14/17 22:00 Dose: Not Given Saccharomyces Boulardii (Florastor) 250 mg PO BID [facility] Last Admin: 07/14/17 17:35 Dose: Not Given - Labs Labs: 07/15/17 06:30 07/15/17 06:30 PT 11.4 SECONDS (9.7-12.2) 07/13/17 20:04 INR 1.0 07/13/17 20:04 APTT 29 SECONDS (21-34) 07/13/17 20:04
[2017-07-15 09:08] LABS: NEUTROPHIL 84 % (50-75); TOTAL CELLS COUNTED 100
[2017-07-15] MEDS ORDERED: (Novolin R) Insulin Human Regular 100 units/ml vial SC SCH (09:15)
[2017-07-15] MEDS: (Novolin R) Insulin Human Regular 100 units/ml vial SC SCH ×3 (09:16→18:08)
[2017-07-15] MEDS: Magnesium Sulfate 1 gm in D5W 1 GM/100 ML BAG IVPB SCH ×2 (09:19→10:46)
[2017-07-15] MEDS: Sodium Chloride 0.9% 1,000 ML IV SCH ×2 (09:20→19:07)
[2017-07-15] MEDS: Ciprofloxacin 400mg/200ml D5W 400 MG/200 ML BAG IVPB SCH ×2 (09:23→21:10)
--- NOTE | 2017-07-15 09:28 | CP.PCM.PCO ---
Physician Communication Note - Physician Communication Note Physician Communication Note: Please see above.
--- NOTE | 2017-07-15 09:42 | CP.PCM.PN ---
<Dianne Salinas - Last Filed: 07/15/17 09:39> Subjective - Date & Time of Evaluation Date of Evaluation: 07/15/17 Time of Evaluation: 09:39 - Subjective Subjective: Gastroenterology Fellow/PGY5 Progress Note Patient with limited verbal response. Admits to abdominal pain. Nursing notes minimal (<20cc) green bilious NG tube output overnight. One dose pf analgesic provided overnight. Notes patient can't take deep breaths due to pain. Denies bowel movement overnight. No acute events overnight. A 12-point review of systems limited in setting of Alzheimer's Dementia. Objective - Vital Signs/Intake and Output Vital Signs (last 24 hours): Temp Pulse Resp BP Pulse Ox 97.9 F 98 H 26 H 90/42 L 94 L 07/14/17 00:30 07/15/17 09:30 07/15/17 09:30 07/15/17 09:07 07/15/17 09:30 Intake and Output: 07/15/17 07/15/17 06:59 18:59 Intake Total 1380 Output Total 620 Balance 760 - Medications Medications: Current Medications Amlodipine Besylate (Norvasc) 10 mg PO DAILY [facility] Last Admin: 07/14/17 09:56 Dose: Not Given Ascorbic Acid (Vitamin C 250 Mg Tab) 250 mg PO DAILY [facility] Last Admin: 07/14/17 09:57 Dose: Not Given Benzocaine/Menthol (Cepacol Sore Throat) 1 love MT Q2 PRN PRN Reason: Sore Throat Clopidogrel Bisulfate (Plavix) 75 mg PO DAILY [facility] Cyproheptadine HCl (Periactin) 4 mg PO BID [facility] Last Admin: 07/14/17 20:54 Dose: Not Given Donepezil HCl (Aricept) 10 mg PO HS [facility] Last Admin: 07/14/17 22:00 Dose: Not Given Ferrous Sulfate (Feosol) 325 mg PO Q12H [facility] Last Admin: 07/15/17 06:45 Dose: Not Given Gemfibrozil (Lopid) 600 mg PO BID [facility] Last Admin: 07/14/17 17:35 Dose: Not Given Home Med (Fesoterodine Fumarate [Toviaz]) 8 mg PO DAILY [facility] Ciprofloxacin (Cipro 400mg/200ml Dsw) 400 mg in 200 mls @ 133 mls/hr IVPB Q12H [facility] Last Admin: 07/15/17 09:23 Dose: 133 mls/hr Vancomycin/Sodium Chloride (Vancomycin 1 Gm/Ns 200 Ml) 1 gm in 200 mls @ 133.333 mls/hr IVPB Q24H [facility] Stop: 07/19/17 11:01 Last Admin: 07/14/17 11:17 Dose: 133.333 mls/hr Meropenem 500 mg/ Dextrose 100 mls @ 100 mls/hr IVPB Q6 [facility] Last Admin: 07/15/17 05:00 Dose: 100 mls/hr Magnesium Sulfate/Dextrose (Magnesium Sulfate 1 Gm/100 Ml D5w) 1 gm in 100 mls @ 100 mls/hr IVPB Q1H [facility] Stop: 07/15/17 11:59 Last Admin: 07/15/17 09:19 Dose: 100 mls/hr Sodium Chloride (Sodium Chloride 0.9%) 1,000 mls @ 100 mls/hr IV .Q10H [facility] Last Admin: 07/15/17 09:20 Dose: 100 mls/hr Insulin Human Regular (Novolin R) 0 unit SC Q6 [facility] PRN Reason: Protocol Latanoprost (Xalatan Opht) 0 ml OU HS [facility] Last Admin: 07/14/17 22:00 Dose: 2.5 ml Levothyroxine Sodium (Synthroid) 50 mcg PO DAILY@0630 [facility] Last Admin: 07/15/17 06:30 Dose: Not Given Meclizine HCl (Antivert) 12.5 mg PO TID [facility] Last Admin: 07/14/17 19:00 Dose: Not Given Metoprolol Succinate (Toprol Xl) 100 mg PO DAILY [facility] Last Admin: 07/14/17 13:41 Dose: 100 mg Morphine Sulfate (Morphine) 1 mg IV Q3 PRN PRN Reason: Pain, moderate (4-7) Morphine Sulfate (Morphine) 2 mg IVP Q3 PRN PRN Reason: Pain, severe (8-10) Last Admin: 07/15/17 08:54 Dose: 2 mg Ondansetron HCl (Zofran Inj) 4 mg IVP Q6 PRN PRN Reason: Nausea/Vomiting Pantoprazole Sodium (Protonix Inj) 40 mg IVP DAILY [facility] Last Admin: 07/14/17 09:55 Dose: 40 mg Rosuvastatin Calcium (Crestor) 10 mg PO HS [facility] Last Admin: 07/14/17 22:00 Dose: Not Given Saccharomyces Boulardii (Florastor) 250 mg PO BID [facility] Last Admin: 07/14/17 17:35 Dose: Not Given - Labs Labs: 07/15/17 06:30 07/15/17 06:30 PT 11.4 SECONDS (9.7-12.2) 07/13/17 20:04 INR 1.0 07/13/17 20:04 APTT 29 SECONDS (21-34) 07/13/17 20:04 - Constitutional Appears: No Acute Distress, Chronically Ill, Other - Head Exam Head Exam: ATRAUMATIC, NORMOCEPHALIC - Eye Exam Eye Exam: EOMI, PERRL. absent: Scleral icterus Pupil Exam: PERRL. absent: Miosis, Mydriatic - ENT Exam ENT Exam: Mucous Membranes Dry, Normal Oropharynx - Neck Exam Neck Exam: Normal Inspection - Respiratory Exam Respiratory Exam: Decreased Breath Sounds, Rhonchi - Cardiovascular Exam Cardiovascular Exam: RRR, +S1, +S2. absent: Gallop, Rubs - GI/Abdominal Exam GI & Abdominal Exam: Distended, Guarding, Soft, Tenderness, Hypoactive Bowel Sounds. absent: Firm, Rigid, Organomegaly, Rebound Additional comments: diffusely hyperresonant - Extremities Exam Extremities Exam: Normal Inspection. 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 History of cholangitis, K. pneumoniae bacteremia, and EUS showing impacted ampulla 10mm CBD stone s/p ERCP with CBD stent placement due to Plavix use (04/2017). Patient presentation for elective ERCP with admission for chest and epigastric pain status post ERCP. CT C/A/P showed showed paraesophageal/under right hemidiaphragm free air, left hepatic lobe subcapsular/extracapsular hematoma vs abscess vs seroma, and extrahepatic CBD pneumobilia. Plan: >post-ERCP guidewire perforation of biliary tree >ordered RUQ U/S to evaluate perihepatic fluid collection for possible IR drain placement >CT A/P- no duodenal perforation, fluid collection unchanged >surgery managing- appreciate recommendations >continue broad spectrum antibiotics >NPO >close monitoring of clinical course <Gavino Damian - Last Filed: 07/15/17 11:51> Objective - Vital Signs/Intake and Output Vital Signs (last 24 hours): Temp Pulse Resp BP Pulse Ox 97.9 F 89 21 97/41 L 95 07/14/17 00:30 07/15/17 11:30 07/15/17 11:30 07/15/17 11:07 07/15/17 11:30 Intake and Output: 07/15/17 07/15/17 06:59 18:59 Intake Total 1380 600 Output Total 620 60 Balance 760 540 - Medications Medications: Current Medications Amlodipine Besylate (Norvasc) 10 mg PO DAILY [facility] Last Admin: 07/14/17 09:56 Dose: Not Given Ascorbic Acid (Vitamin C 250 Mg Tab) 250 mg PO DAILY [facility] Last Admin: 07/14/17 09:57 Dose: Not Given Benzocaine/Menthol (Cepacol Sore Throat) 1 love MT Q2 PRN PRN Reason: Sore Throat Clopidogrel Bisulfate (Plavix) 75 mg PO DAILY [facility] Cyproheptadine HCl (Periactin) 4 mg PO BID [facility] Last Admin: 07/14/17 20:54 Dose: Not Given Donepezil HCl (Aricept) 10 mg PO HS [facility] Last Admin: 07/14/17 22:00 Dose: Not Given Ferrous Sulfate (Feosol) 325 mg PO Q12H [facility] Last Admin: 07/15/17 06:45 Dose: Not Given Gemfibrozil (Lopid) 600 mg PO BID [facility] Last Admin: 07/14/17 17:35 Dose: Not Given Home Med (Fesoterodine Fumarate [Toviaz]) 8 mg PO DAILY [facility] Hydromorphone HCl (Dilaudid) 0.5 mg IVP Q4 PRN PRN Reason: Pain, severe (8-10) Ciprofloxacin (Cipro 400mg/200ml Dsw) 400 mg in 200 mls @ 133 mls/hr IVPB Q12H [facility] Last Admin: 07/15/17 09:23 Dose: 133 mls/hr Vancomycin/Sodium Chloride (Vancomycin 1 Gm/Ns 200 Ml) 1 gm in 200 mls @ 133.333 mls/hr IVPB Q24H [facility] Stop: 07/19/17 11:01 Last Admin: 07/15/17 10:46 Dose: 133.333 mls/hr Meropenem 500 mg/ Dextrose 100 mls @ 100 mls/hr IVPB Q6 [facility] Last Admin: 07/15/17 11:26 Dose: 100 mls/hr Magnesium Sulfate/Dextrose (Magnesium Sulfate 1 Gm/100 Ml D5w) 1 gm in 100 mls @ 100 mls/hr IVPB Q1H [facility] Stop: 07/15/17 11:59 Last Admin: 07/15/17 10:46 Dose: 100 mls/hr Sodium Chloride (Sodium Chloride 0.9%) 1,000 mls @ 100 mls/hr IV .Q10H [facility] Last Admin: 07/15/17 09:20 Dose: 100 mls/hr Insulin Human Regular (Novolin R) 0 unit SC Q6H [facility] PRN Reason: Protocol Latanoprost (Xalatan Opht) 0 ml OU HS [facility] Last Admin: 07/14/17 22:00 Dose: 2.5 ml Levothyroxine Sodium (Synthroid) 50 mcg PO DAILY@0630 [facility] Last Admin: 07/15/17 06:30 Dose: Not Given Meclizine HCl (Antivert) 12.5 mg PO TID [facility] Last Admin: 07/15/17 09:54 Dose: Not Given Metoprolol Succinate (Toprol Xl) 100 mg PO DAILY [facility] Last Admin: 07/14/17 13:41 Dose: 100 mg Ondansetron HCl (Zofran Inj) 4 mg IVP Q6 PRN PRN Reason: Nausea/Vomiting Pantoprazole Sodium (Protonix Inj) 40 mg IVP DAILY [facility] Last Admin: 07/15/17 10:46 Dose: 40 mg Rosuvastatin Calcium (Crestor) 10 mg PO HS [facility] Last Admin: 07/14/17 22:00 Dose: Not Given Saccharomyces Boulardii (Florastor) 250 mg PO BID [facility] Last Admin: 07/15/17 09:54 Dose: Not Given - Labs Labs: 07/15/17 06:30 07/15/17 06:30 PT 11.4 SECONDS (9.7-12.2) 07/13/17 20:04 INR 1.0 07/13/17 20:04 APTT 29 SECONDS (21-34) 07/13/17 20:04 Attending/Attestation - Attestation I have personally seen and examined this patient.: Yes I have fully participated in the care of the patient.: Yes I have reviewed all pertinent clinical information, including history, physical exam and plan: Yes Notes (Text): 07/15/17 11:46 82 year old male with h/o DM, HLD, HTN, CKD, Dementia, CVA, gluteal abscess, recent episode of K pneumonia bacterimia 2/2 cholangitis s/p prior ERCP with stent now admitted after ERCP to remove stent/stone was complicated by perforation. 1. Pneumoperitoneum 2. Mitzy-hepatic fluid collection Plan: -this represents a guidewire perforation of the liver capsule or peripheral bile ducts -reviewed the case with IR, not amenable to percutaneous drainage -currently patient is hemodynamically stable -he is on broad spectrum antibiotics -surgery is following with plans for conservative management as long as he remains stable -he is tachypneic and unable to take deep breaths due to the subdiaphragmatic irritation/collection -npo -NG to LIS -no duodenal perf on CT -will need to decide to initiate oral feedings vs TPN
[2017-07-15] MEDS: Saccharomyces Boulardi 250 mg Cap PO SCH ×2 (09:54→18:07)
[2017-07-15] MEDS: Vancomycin 1 gm/NS 200 ml 1 GM/200 ML BAG IVPB SCH (10:46)
--- NOTE | 2017-07-15 11:28 | RAD ---
HISTORY: desaturating, sob, tachypnea COMPARISON: Chest x-ray performed 07/14/17 TECHNIQUE: Chest, one view. FINDINGS: Right IJ approach central venous catheter extends the SVC. Nasogastric tube extends to the expected location of the stomach. LUNGS: Bibasilar atelectasis. Please note that chest x-ray has limited sensitivity for the detection of pulmonary masses. PLEURA: Small left pleural effusion. No definite pneumothorax. CARDIOVASCULAR: Cardiomegaly. Atherosclerotic calcifications of the aorta. OSSEOUS STRUCTURES: Osseous demineralization. Degenerative changes. VISUALIZED UPPER ABDOMEN: Unremarkable. OTHER FINDINGS: None. IMPRESSION: Right IJ approach central venous catheter extends the SVC. Nasogastric tube extends to the expected location of the stomach. Cardiomegaly. Atherosclerotic calcifications of the aortic knob. Small left pleural effusion. Bibasilar atelectasis.
[2017-07-15] MEDS: HYDROmorphone 0.5 mg/0.5 ml ISec IVP PRN ×3 (13:05→22:39)
--- NOTE | 2017-07-15 13:26 | CP.PCM.CON ---
History of Present Illness - History of Present Illness History of Present Illness: 82 years old male with hx of CVA, DM, Gluteal Abscess Dx on his last admission on 06/24/17, ERCP with stent placement in 11/2015 after Cholecyctectomy. He is here for an elective ERCP for removal of the Stent. A ENT SURGEON was called after the Stent removal , where the patient complained of abdominal pain radiating to the right shoulder. CT chest done at that time suggested possible free air below the right diaphragm. CT of Abdomen/pelvis was ordered and the patient was transferred to the ICU for closer monitoring. s/p rapid response- being treated for sepsis syndrome PMH: DM II: HTN; CVA 2013; GERD; gluteal [id number] (MRSA) on 06/27/17; Vertigo; Dementia; Hypothyroidism; gallstones s/p ERCP with Biliary stent placement 12/06/2015; Cardiac Cath in 2013; Glaucoma; CKD; Biliary Stent removal 07/13/17; Cardio Cath 2012 Patient unaware of any CKD hx PSH: Cholecystectomy; Left carotid Surgery; Right hand surgery; Biliary stent placement and removal SH: Non smoker; No illegal drug use; no Alcohol use; aLive with ; walks with a cane. FH: States, No known family history Allergies: NKDA Hospital course- UO has been fair; creat increased from 1.7 on admission to 2.3 No hydro seen on recent CT scan TNI negative Review of Systems - Review of Systems Systems not reviewed;Unavailable: Altered Mental Status Past Patient History - Infectious Disease Hx of Infectious Diseases: None - Tetanus Immunizations Tetanus Immunization: Unknown - Past Medical History & Family History Past Medical History?: Yes - Past Social History Smoking Status: Never Smoked Chewing Tobacco Use: No Cigar Use: No Alcohol: None Drugs: Denies Home Situation {Lives}: With Family - CARDIAC Hx Cardiac Disorders: Yes Hx Hypercholesterolemia: Yes Hx Hypertension: Yes - PULMONARY Hx Respiratory Disorders: Yes Hx Pneumonia: Yes (KLEBSIELLA PNEUMONIAE) - NEUROLOGICAL Hx Neurological Disorder: Yes HX Cerebrovascular Accident: Yes Hx Dementia: Yes Other/Comment: MEMORY DEFICIT - HEENT Hx HEENT Problems: Yes Hx Cataracts: Yes (SURGERY) - RENAL Hx Chronic Kidney Disease: No - ENDOCRINE/METABOLIC Hx Endocrine Disorders: Yes Hx Diabetes Mellitus Type 2: Yes - HEMATOLOGICAL/ONCOLOGICAL Hx Blood Disorders: No Hx Blood Transfusions: No - INTEGUMENTARY Hx Dermatological Problems: No - MUSCULOSKELETAL/RHEUMATOLOGICAL Hx Musculoskeletal Disorders: Yes Hx Arthritis: Yes (BACK, BL KNEE) Hx Back Pain: Yes Hx Falls: No Other/Comment: RIGHT HAND WEAK GRASP RESIDUAL FROM STROKE - GASTROINTESTINAL Hx Gastrointestinal Disorders: Yes (''STOMACH BACTERIA'') Hx Ulcer: Yes Other/Comment: CHOLEDOCHOLITHIASIS, CHOLANGITIS - GENITOURINARY/GYNECOLOGICAL Hx Genitourinary Disorders: No Hx Incontinence: Yes - PSYCHIATRIC Hx Psychophysiologic Disorder: No Hx Substance Use: No - SURGICAL HISTORY Hx Surgeries: Yes Hx Cataract Extraction: Yes Other/Comment: LEFT BEHIND EAR SURGERY FROM BLOOD CLOTS ,RIGHT HAND SURGERY - ANESTHESIA Hx Anesthesia: Yes Hx Anesthesia Reactions: No Hx Malignant Hyperthermia: No Meds Allergies/Adverse Reactions: Allergies Allergy/AdvReac Type Severity Reaction Status Date / Time No Known Allergies Allergy Verified 07/13/17 10:45 - Medications Medications: Current Medications Amlodipine Besylate (Norvasc) 10 mg PO DAILY [facility] Last Admin: 07/14/17 09:56 Dose: Not Given Ascorbic Acid (Vitamin C 250 Mg Tab) 250 mg PO DAILY [facility] Last Admin: 07/14/17 09:57 Dose: Not Given Benzocaine/Menthol (Cepacol Sore Throat) 1 love MT Q2 PRN PRN Reason: Sore Throat Clopidogrel Bisulfate (Plavix) 75 mg PO DAILY [facility] Cyproheptadine HCl (Periactin) 4 mg PO BID [facility] Last Admin: 07/15/17 12:46 Dose: Not Given Donepezil HCl (Aricept) 10 mg PO HS [facility] Last Admin: 07/14/17 22:00 Dose: Not Given Ferrous Sulfate (Feosol) 325 mg PO Q12H [facility] Last Admin: 07/15/17 06:45 Dose: Not Given Gemfibrozil (Lopid) 600 mg PO BID [facility] Last Admin: 07/15/17 12:46 Dose: Not Given Home Med (Fesoterodine Fumarate [Toviaz]) 8 mg PO DAILY [facility] Hydromorphone HCl (Dilaudid) 0.5 mg IVP Q4 PRN PRN Reason: Pain, severe (8-10) Last Admin: 07/15/17 13:05 Dose: 0.5 mg Ciprofloxacin (Cipro 400mg/200ml Dsw) 400 mg in 200 mls @ 133 mls/hr IVPB Q12H [facility] Last Admin: 07/15/17 09:23 Dose: 133 mls/hr Vancomycin/Sodium Chloride (Vancomycin 1 Gm/Ns 200 Ml) 1 gm in 200 mls @ 133.333 mls/hr IVPB Q24H [facility] Stop: 07/19/17 11:01 Last Admin: 07/15/17 10:46 Dose: 133.333 mls/hr Meropenem 500 mg/ Dextrose 100 mls @ 100 mls/hr IVPB Q6 [facility] Last Admin: 07/15/17 11:26 Dose: 100 mls/hr Sodium Chloride (Sodium Chloride 0.9%) 1,000 mls @ 100 mls/hr IV .Q10H [facility] Last Admin: 07/15/17 09:20 Dose: 100 mls/hr Insulin Human Regular (Novolin R) 0 unit SC Q6H [facility] PRN Reason: Protocol Last Admin: 07/15/17 12:50 Dose: 2 unit Latanoprost (Xalatan Opht) 0 ml OU HS [facility] Last Admin: 07/14/17 22:00 Dose: 2.5 ml Levothyroxine Sodium (Synthroid) 50 mcg PO DAILY@0630 [facility] Last Admin: 07/15/17 06:30 Dose: Not Given Meclizine HCl (Antivert) 12.5 mg PO TID [facility] Last Admin: 07/15/17 09:54 Dose: Not Given Metoprolol Succinate (Toprol Xl) 100 mg PO DAILY [facility] Last Admin: 07/14/17 13:41 Dose: 100 mg Ondansetron HCl (Zofran Inj) 4 mg IVP Q6 PRN PRN Reason: Nausea/Vomiting Pantoprazole Sodium (Protonix Inj) 40 mg IVP DAILY [facility] Last Admin: 07/15/17 10:46 Dose: 40 mg Rosuvastatin Calcium (Crestor) 10 mg PO HS [facility] Last Admin: 07/14/17 22:00 Dose: Not Given Saccharomyces Boulardii (Florastor) 250 mg PO BID [facility] Last Admin: 07/15/17 09:54 Dose: Not Given Physical Exam - Constitutional Appears: No Acute Distress, Chronically Ill - Head Exam Head Exam: ATRAUMATIC, NORMAL INSPECTION - Eye Exam Eye Exam: EOMI, Normal appearance - Neck Exam Neck exam: Positive for: Normal Inspection. Negative for: Tenderness - Respiratory Exam Respiratory Exam: Clear to Auscultation Bilateral, NORMAL BREATHING PATTERN - Cardiovascular Exam Cardiovascular Exam: REGULAR RHYTHM, +S1 - GI/Abdominal Exam GI & Abdominal Exam: Soft. absent: Tenderness - Extremities Exam Extremities exam: Positive for: normal inspection. Negative for: pedal edema, tenderness - Neurological Exam Neurological exam: Altered, CN II-XII Intact - Skin Skin Exam: Dry, Warm Results - Vital Signs Recent Vital Signs: Last Vital Signs Temp 97.9 F 07/14/17 00:30 Pulse 88 07/15/17 13:00 Resp 30 H 07/15/17 13:00 BP 104/49 L 07/15/17 12:07 Pulse Ox 95 07/15/17 13:00 - Labs Result Diagrams: 07/15/17 06:30 07/15/17 06:30 Labs: Laboratory Results - last 24 hr 07/14/17 07/14/17 07/14/17 15:57 16:05 16:12 WBC 15.3 H RBC 3.67 L Hgb 10.3 L D Hct 30.7 L MCV 83.7 D MCH 28.1 MCHC 33.5 RDW 14.7 H Plt Count 225 MPV 8.5 Neut % (Auto) Lymph % (Auto) [place] % (Auto) Eos % (Auto) Baso % (Auto) Neut # Lymph # [place] # Eos # Baso # Neutrophils % (Manual) Band Neutrophils % Lymphocytes % (Manual) Monocytes % (Manual) Basophils % (Manual) Metamyelocytes % Platelet Estimate RBC Morphology Poikilocytosis (manual Anisocytosis (manual) Puncture Site pCO2 pO2 HCO3 ABG pH ABG Total CO2 ABG O2 Saturation ABG Base Excess Nj Test ABG Potassium Glucose Lactate Liter Flow Sodium 132 Potassium 4.2 Chloride 96 L Carbon Dioxide 21 L Anion Gap 19 BUN 40 H Creatinine 2.0 H Est GFR ( Amer) 39 Est GFR (Non-Af Amer) 32 POC Glucose (mg/dL) 253 H Random Glucose 231 H Lactic Acid Calcium 9.0 Phosphorus Magnesium Total Bilirubin 1.1 AST 39 ALT 52 Alkaline Phosphatase 63 Total Creatine Kinase 248 H CK-MB (Mass) 3.42 H Troponin I, Quant 0.0330 Total Protein 6.6 Albumin 4.1 Globulin 2.5 Albumin/Globulin Ratio 1.6 Arterial Blood Potassium 07/14/17 07/14/17 07/14/17 21:13 22:53 22:53 WBC 14.9 H RBC 3.39 L Hgb 9.5 L Hct 28.3 L MCV 83.4 MCH 28.0 MCHC 33.6 RDW 14.6 H Plt Count 200 MPV 8.9 Neut % (Auto) 87.7 H Lymph % (Auto) 7.2 L [place] % (Auto) 4.8 Eos % (Auto) 0.0 Baso % (Auto) 0.3 Neut # 13.0 H Lymph # 1.1 [place] # 0.7 Eos # 0.0 Baso # 0.0 Neutrophils % (Manual) 78 H Band Neutrophils % 9 H Lymphocytes % (Manual) 6 L Monocytes % (Manual) 4 Basophils % (Manual) 1 Metamyelocytes % 2 H Platelet Estimate Normal RBC Morphology Poikilocytosis (manual Slight Anisocytosis (manual) Slight Puncture Site pCO2 pO2 HCO3 ABG pH ABG Total CO2 ABG O2 Saturation ABG Base Excess Nj Test ABG Potassium Glucose Lactate Liter Flow Sodium 128 L Potassium 4.0 Chloride 91 L Carbon Dioxide 26 Anion Gap 14 BUN 41 H Creatinine 2.4 H Est GFR ( Amer) 32 Est GFR (Non-Af Amer) 26 POC Glucose (mg/dL) 223 H Random Glucose 187 H Lactic Acid Calcium 8.3 L Phosphorus Magnesium Total Bilirubin 1.0 AST 35 ALT 48 Alkaline Phosphatase 55 Total Creatine Kinase CK-MB (Mass) Troponin I, Quant Total Protein 6.0 L Albumin 3.6 Globulin 2.4 Albumin/Globulin Ratio 1.5 Arterial Blood Potassium 07/14/17 07/14/17 07/15/17 22:55 23:13 04:56 WBC RBC Hgb Hct MCV MCH MCHC RDW Plt Count MPV Neut % (Auto) Lymph % (Auto) [place] % (Auto) Eos % (Auto) Baso % (Auto) Neut # Lymph # [place] # Eos # Baso # Neutrophils % (Manual) Band Neutrophils % Lymphocytes % (Manual) Monocytes % (Manual) Basophils % (Manual) Metamyelocytes % Platelet Estimate RBC Morphology Poikilocytosis (manual Anisocytosis (manual) Puncture Site Rb pCO2 36 pO2 55 L HCO3 31.6 H ABG pH 7.55 H ABG Total CO2 32.6 H ABG O2 Saturation 93.2 L ABG Base Excess 8.7 H Nj Test Na ABG Potassium 4.0 Glucose 232 H Lactate 1.5 Liter Flow 3.0 Sodium 132.0 Potassium Chloride 95.0 L Carbon Dioxide Anion Gap BUN Creatinine Est GFR ( Amer) Est GFR (Non-Af Amer) POC Glucose (mg/dL) Random Glucose Lactic Acid 1.8 Calcium Phosphorus Magnesium Total Bilirubin AST ALT Alkaline Phosphatase Total Creatine Kinase 225 H CK-MB (Mass) 2.07 Troponin I, Quant 0.0410 Total Protein Albumin Globulin Albumin/Globulin Ratio Arterial Blood Potassium 4.0 07/15/17 07/15/17 07/15/17 06:30 06:30 07:57 WBC 14.8 H RBC 3.31 L Hgb 9.5 L Hct 27.6 L MCV 83.4 MCH 28.6 MCHC 34.3 RDW 14.7 H Plt Count 190 MPV 9.1 Neut % (Auto) 87.2 H Lymph % (Auto) 8.1 L [place] % (Auto) 4.2 Eos % (Auto) 0.1 Baso % (Auto) 0.4 Neut # 12.9 H Lymph # 1.2 [place] # 0.6 Eos # 0.0 Baso # 0.1 Neutrophils % (Manual) 84 H Band Neutrophils % 6 H Lymphocytes % (Manual) 6 L Monocytes % (Manual) 4 Basophils % (Manual) Metamyelocytes % Platelet Estimate Normal RBC Morphology Normal Poikilocytosis (manual Anisocytosis (manual) Puncture Site pCO2 pO2 HCO3 ABG pH ABG Total CO2 ABG O2 Saturation ABG Base Excess Nj Test ABG Potassium Glucose Lactate Liter Flow Sodium 129 L Potassium 3.8 Chloride 91 L Carbon Dioxide 28 Anion Gap 14 BUN 38 H Creatinine 2.3 H Est GFR ( Amer) 33 Est GFR (Non-Af Amer) 27 POC Glucose (mg/dL) 212 H Random Glucose 176 H Lactic Acid Calcium 8.0 L Phosphorus 3.6 Magnesium 1.4 L Total Bilirubin 0.8 AST 45 ALT 58 Alkaline Phosphatase 51 Total Creatine Kinase CK-MB (Mass) Troponin I, Quant Total Protein 6.4 Albumin 3.2 L Globulin 3.2 Albumin/Globulin Ratio 1.0 Arterial Blood Potassium 07/15/17 12:03 WBC RBC Hgb Hct MCV MCH MCHC RDW Plt Count MPV Neut % (Auto) Lymph % (Auto) [place] % (Auto) Eos % (Auto) Baso % (Auto) Neut # Lymph # [place] # Eos # Baso # Neutrophils % (Manual) Band Neutrophils % Lymphocytes % (Manual) Monocytes % (Manual) Basophils % (Manual) Metamyelocytes % Platelet Estimate RBC Morphology Poikilocytosis (manual Anisocytosis (manual) Puncture Site pCO2 pO2 HCO3 ABG pH ABG Total CO2 ABG O2 Saturation ABG Base Excess Nj Test ABG Potassium Glucose Lactate Liter Flow Sodium Potassium Chloride Carbon Dioxide Anion Gap BUN Creatinine Est GFR ( Amer) Est GFR (Non-Af Amer) POC Glucose (mg/dL) 213 H Random Glucose Lactic Acid Calcium Phosphorus Magnesium Total Bilirubin AST ALT Alkaline Phosphatase Total Creatine Kinase CK-MB (Mass) Troponin I, Quant Total Protein Albumin Globulin Albumin/Globulin Ratio Arterial Blood Potassium Assessment & Plan (1) Hx of stroke without residual deficits Status: Acute (2) History of hypertension Status: Chronic (3) JAY JAY (acute kidney injury) Status: Acute (4) Type 2 diabetes mellitus with diabetic nephropathy Status: Acute (5) Chronic kidney disease, stage III (moderate) Status: Acute (6) Proteinuria Status: Acute - Assessment and Plan (Free Text) Plan: Agree with IV fluids; adequate UO at present Serial chemistries check ua, urine lytes no need for ENT SURGEON at present
--- NOTE | 2017-07-15 14:02 | US ---
TECHNIQUE: Sonographic evaluation of the liver was performed for purposes of drainages using a linear probe and a curved probe. FINDINGS: LIVER: Limited sonographic evaluation of the was performed. Echogenicity of the visualized portion of the liver is normal. Identified small fluid collection seen on previous CT scan is not visualized on the ultrasound. On the CT scan, the fluid collection is in the superior medial aspect of the liver directly below the diaphragm and adjacent to the heart border. IMPRESSION: Limited sonographic evaluation of the liver for purposes of drainage and did not show the subdiaphragmatic fluid collection seen in the previous CT scan.
--- NOTE | 2017-07-15 15:05 | CP.PCM.PN ---
Subjective - Date & Time of Evaluation Date of Evaluation: 07/15/17 Time of Evaluation: 08:00 - Subjective Subjective: s/p ERCP guidewire perforation of hepatic/biliary parenchyma, subtype C ( complicated by subcapsular hematoma/biloma) Objective - Vital Signs/Intake and Output Vital Signs (last 24 hours): Temp Pulse Resp BP Pulse Ox 97.9 F 88 30 H 104/49 L 95 07/14/17 00:30 07/15/17 13:00 07/15/17 13:00 07/15/17 12:07 07/15/17 13:00 Intake and Output: 07/15/17 07/15/17 06:59 18:59 Intake Total 1380 800 Output Total 620 200 Balance 760 600 - Medications Medications: Current Medications Amlodipine Besylate (Norvasc) 10 mg PO DAILY [facility] Last Admin: 07/14/17 09:56 Dose: Not Given Ascorbic Acid (Vitamin C 250 Mg Tab) 250 mg PO DAILY [facility] Last Admin: 07/14/17 09:57 Dose: Not Given Benzocaine/Menthol (Cepacol Sore Throat) 1 love MT Q2 PRN PRN Reason: Sore Throat Clopidogrel Bisulfate (Plavix) 75 mg PO DAILY [facility] Cyproheptadine HCl (Periactin) 4 mg PO BID [facility] Last Admin: 07/15/17 12:46 Dose: Not Given Donepezil HCl (Aricept) 10 mg PO HS [facility] Last Admin: 07/14/17 22:00 Dose: Not Given Ferrous Sulfate (Feosol) 325 mg PO Q12H [facility] Last Admin: 07/15/17 06:45 Dose: Not Given Gemfibrozil (Lopid) 600 mg PO BID [facility] Last Admin: 07/15/17 12:46 Dose: Not Given Home Med (Fesoterodine Fumarate [Toviaz]) 8 mg PO DAILY [facility] Hydromorphone HCl (Dilaudid) 0.5 mg IVP Q4 PRN PRN Reason: Pain, severe (8-10) Last Admin: 07/15/17 13:05 Dose: 0.5 mg Ciprofloxacin (Cipro 400mg/200ml Dsw) 400 mg in 200 mls @ 133 mls/hr IVPB Q12H [facility] Last Admin: 07/15/17 09:23 Dose: 133 mls/hr Vancomycin/Sodium Chloride (Vancomycin 1 Gm/Ns 200 Ml) 1 gm in 200 mls @ 133.333 mls/hr IVPB Q24H [facility] Stop: 07/19/17 11:01 Last Admin: 07/15/17 10:46 Dose: 133.333 mls/hr Meropenem 500 mg/ Dextrose 100 mls @ 100 mls/hr IVPB Q6 [facility] Last Admin: 07/15/17 11:26 Dose: 100 mls/hr Sodium Chloride (Sodium Chloride 0.9%) 1,000 mls @ 100 mls/hr IV .Q10H [facility] Last Admin: 07/15/17 09:20 Dose: 100 mls/hr Insulin Human Regular (Novolin R) 0 unit SC Q6H [facility] PRN Reason: Protocol Last Admin: 07/15/17 12:50 Dose: 2 unit Latanoprost (Xalatan Opht) 0 ml OU HS [facility] Last Admin: 07/14/17 22:00 Dose: 2.5 ml Levothyroxine Sodium (Synthroid) 50 mcg PO DAILY@0630 [facility] Last Admin: 07/15/17 06:30 Dose: Not Given Meclizine HCl (Antivert) 12.5 mg PO TID [facility] Last Admin: 07/15/17 09:54 Dose: Not Given Metoprolol Succinate (Toprol Xl) 100 mg PO DAILY [facility] Last Admin: 07/14/17 13:41 Dose: 100 mg Ondansetron HCl (Zofran Inj) 4 mg IVP Q6 PRN PRN Reason: Nausea/Vomiting Pantoprazole Sodium (Protonix Inj) 40 mg IVP DAILY [facility] Last Admin: 07/15/17 10:46 Dose: 40 mg Rosuvastatin Calcium (Crestor) 10 mg PO HS [facility] Last Admin: 07/14/17 22:00 Dose: Not Given Saccharomyces Boulardii (Florastor) 250 mg PO BID [facility] Last Admin: 07/15/17 09:54 Dose: Not Given - Labs Labs: 07/15/17 06:30 07/15/17 06:30 PT 11.4 SECONDS (9.7-12.2) 07/13/17 20:04 INR 1.0 07/13/17 20:04 APTT 29 SECONDS (21-34) 07/13/17 20:04 - Constitutional Appears: Non-toxic, Cachectic, Chronically Ill - Head Exam Head Exam: NORMOCEPHALIC - Eye Exam Eye Exam: absent: Scleral icterus - ENT Exam ENT Exam: Mucous Membranes Dry - Neck Exam Neck Exam: absent: Lymphadenopathy - Respiratory Exam Respiratory Exam: Decreased Breath Sounds - Cardiovascular Exam Cardiovascular Exam: REGULAR RHYTHM, +S1, +S2 - GI/Abdominal Exam GI & Abdominal Exam: Distended, Soft - Rectal Exam Rectal Exam: Deferred - Exam Exam: NORMAL INSPECTION - Extremities Exam Extremities Exam: absent: Pedal Edema - Back Exam Back Exam: absent: CVA tenderness (L), CVA tenderness (R) - Neurological Exam Neurological Exam: Alert, Awake, Oriented x3 - Psychiatric Exam Psychiatric exam: Depressed - Skin Skin Exam: Dry Assessment and Plan - Assessment and Plan (Free Text) Assessment: s/p ERCP guidewire perforation of hepatic/biliary parenchyma, subtype C ( complicated by subcapsular hematoma/biloma) r/o pneumonia cont iv antibiotics await cultures
--- NOTE | 2017-07-15 15:11 | CP.PCM.PN ---
<Javon Candelario - Last Filed: 07/15/17 15:08> Subjective - Date & Time of Evaluation Date of Evaluation: 07/15/17 Time of Evaluation: 11:30 - Subjective Subjective: General Surgery Pt S&E. Still with abd pain but has improved since yesterday. + flatus. No N/V, F/C. Objective - Vital Signs/Intake and Output Vital Signs (last 24 hours): Temp Pulse Resp BP Pulse Ox 97.9 F 88 30 H 104/49 L 95 07/14/17 00:30 07/15/17 13:00 07/15/17 13:00 07/15/17 12:07 07/15/17 13:00 Intake and Output: 07/15/17 07/15/17 06:59 18:59 Intake Total 1380 800 Output Total 620 200 Balance 760 600 - Medications Medications: Current Medications Amlodipine Besylate (Norvasc) 10 mg PO DAILY [facility] Last Admin: 07/14/17 09:56 Dose: Not Given Ascorbic Acid (Vitamin C 250 Mg Tab) 250 mg PO DAILY [facility] Last Admin: 07/14/17 09:57 Dose: Not Given Benzocaine/Menthol (Cepacol Sore Throat) 1 love MT Q2 PRN PRN Reason: Sore Throat Clopidogrel Bisulfate (Plavix) 75 mg PO DAILY [facility] Cyproheptadine HCl (Periactin) 4 mg PO BID [facility] Last Admin: 07/15/17 12:46 Dose: Not Given Donepezil HCl (Aricept) 10 mg PO HS [facility] Last Admin: 07/14/17 22:00 Dose: Not Given Ferrous Sulfate (Feosol) 325 mg PO Q12H [facility] Last Admin: 07/15/17 06:45 Dose: Not Given Gemfibrozil (Lopid) 600 mg PO BID [facility] Last Admin: 07/15/17 12:46 Dose: Not Given Home Med (Fesoterodine Fumarate [Toviaz]) 8 mg PO DAILY [facility] Hydromorphone HCl (Dilaudid) 0.5 mg IVP Q4 PRN PRN Reason: Pain, severe (8-10) Last Admin: 07/15/17 13:05 Dose: 0.5 mg Ciprofloxacin (Cipro 400mg/200ml Dsw) 400 mg in 200 mls @ 133 mls/hr IVPB Q12H [facility] Last Admin: 07/15/17 09:23 Dose: 133 mls/hr Vancomycin/Sodium Chloride (Vancomycin 1 Gm/Ns 200 Ml) 1 gm in 200 mls @ 133.333 mls/hr IVPB Q24H [facility] Stop: 07/19/17 11:01 Last Admin: 07/15/17 10:46 Dose: 133.333 mls/hr Meropenem 500 mg/ Dextrose 100 mls @ 100 mls/hr IVPB Q6 [facility] Last Admin: 07/15/17 11:26 Dose: 100 mls/hr Sodium Chloride (Sodium Chloride 0.9%) 1,000 mls @ 100 mls/hr IV .Q10H [facility] Last Admin: 07/15/17 09:20 Dose: 100 mls/hr Insulin Human Regular (Novolin R) 0 unit SC Q6H [facility] PRN Reason: Protocol Last Admin: 07/15/17 12:50 Dose: 2 unit Latanoprost (Xalatan Opht) 0 ml OU HS [facility] Last Admin: 07/14/17 22:00 Dose: 2.5 ml Levothyroxine Sodium (Synthroid) 50 mcg PO DAILY@0630 [facility] Last Admin: 07/15/17 06:30 Dose: Not Given Meclizine HCl (Antivert) 12.5 mg PO TID [facility] Last Admin: 07/15/17 09:54 Dose: Not Given Metoprolol Succinate (Toprol Xl) 100 mg PO DAILY [facility] Last Admin: 07/14/17 13:41 Dose: 100 mg Ondansetron HCl (Zofran Inj) 4 mg IVP Q6 PRN PRN Reason: Nausea/Vomiting Pantoprazole Sodium (Protonix Inj) 40 mg IVP DAILY [facility] Last Admin: 07/15/17 10:46 Dose: 40 mg Rosuvastatin Calcium (Crestor) 10 mg PO HS [facility] Last Admin: 07/14/17 22:00 Dose: Not Given Saccharomyces Boulardii (Florastor) 250 mg PO BID [facility] Last Admin: 07/15/17 09:54 Dose: Not Given - Labs Labs: 07/15/17 06:30 07/15/17 06:30 PT 11.4 SECONDS (9.7-12.2) 07/13/17 20:04 INR 1.0 07/13/17 20:04 APTT 29 SECONDS (21-34) 07/13/17 20:04 - Constitutional Appears: Non-toxic, No Acute Distress - Head Exam Head Exam: ATRAUMATIC, NORMOCEPHALIC - Eye Exam Eye Exam: EOMI. absent: Scleral icterus - Respiratory Exam Respiratory Exam: absent: Respiratory Distress, NORMAL BREATHING PATTERN (on O2 mask) - Cardiovascular Exam Cardiovascular Exam: absent: Bradycardia, Tachycardia - Neurological Exam Neurological Exam: Alert, Awake - Skin Skin Exam: Dry, Warm Assessment and Plan - Assessment and Plan (Free Text) Assessment: 82M s/p ERCP w. subcapsular/extracapsular air Plan: -serial abd exams -NPO -abx -no plans for surgery at this time -will continue to follow closely -Nephro on board for acute on chronic kidney injury -D/W Dr. Austen Candelario PGY4 <Manohar Boyce - Last Filed: 07/19/17 15:58> Objective - Vital Signs/Intake and Output Vital Signs (last 24 hours): Temp Pulse Resp BP Pulse Ox 97.9 F 81 39 H 105/45 L 100 07/19/17 12:00 07/19/17 14:26 07/19/17 14:26 07/19/17 14:26 07/19/17 14:26 Intake and Output: 07/19/17 07/19/17 06:59 18:59 Intake Total 566.7 Output Total 625 Balance -58.3 - Medications Medications: Current Medications Ascorbic Acid (Vitamin C 250 Mg Tab) 250 mg PO DAILY [facility] Last Admin: 07/19/17 09:17 Dose: 250 mg Benzocaine/Menthol (Cepacol Sore Throat) 1 love MT Q2 PRN PRN Reason: Sore Throat Last Admin: 07/17/17 20:25 Dose: 1 love Calcium Acetate (Phoslo) 667 mg PO TID [facility] Last Admin: 07/19/17 13:59 Dose: 667 mg Clopidogrel Bisulfate (Plavix) 75 mg PO DAILY [facility] Cyproheptadine HCl (Periactin) 4 mg PO BID [facility] Last Admin: 07/19/17 09:17 Dose: 4 mg Donepezil HCl (Aricept) 10 mg PO HS [facility] Last Admin: 07/18/17 21:19 Dose: 10 mg Ferrous Sulfate (Feosol) 325 mg PO Q12H [facility] Last Admin: 07/19/17 06:04 Dose: 325 mg Gemfibrozil (Lopid) 600 mg PO BID [facility] Last Admin: 07/19/17 09:17 Dose: 600 mg Home Med (Fesoterodine Fumarate [Toviaz]) 8 mg PO DAILY [facility] Tigecycline 50 mg/ Dextrose 100 mls @ 100 mls/hr IVPB Q12H [facility] Last Admin: 07/19/17 12:23 Dose: 100 mls/hr Metronidazole 250 mg/ (Miscellaneous) 50 mls @ 100 mls/hr IVPB Q8 [facility] Last Admin: 07/19/17 13:59 Dose: 100 mls/hr Insulin Human Regular (Novolin R) 0 unit SC ACHS [facility] PRN Reason: Protocol Last Admin: 07/19/17 12:25 Dose: 5 unit Latanoprost (Xalatan Opht) 0 ml OU HS [facility] Last Admin: 07/18/17 21:19 Dose: 2.5 ml Levothyroxine Sodium (Synthroid) 50 mcg PO DAILY@0630 [facility] Last Admin: 07/19/17 06:04 Dose: 50 mcg Meclizine HCl (Antivert) 12.5 mg PO TID [facility] Last Admin: 07/19/17 13:59 Dose: 12.5 mg Metoprolol Succinate (Toprol Xl) 100 mg PO DAILY [facility] Last Admin: 07/14/17 13:41 Dose: 100 mg Morphine Sulfate (Morphine) 0.5 mg IVP Q6H PRN PRN Reason: Pain, severe (8-10) Last Admin: 07/19/17 13:10 Dose: 0.5 mg Ondansetron HCl (Zofran Inj) 4 mg IVP Q6 PRN PRN Reason: Nausea/Vomiting Pantoprazole Sodium (Protonix Inj) 40 mg IVP DAILY [facility] Last Admin: 07/19/17 09:16 Dose: 40 mg Rosuvastatin Calcium (Crestor) 10 mg PO HS [facility] Last Admin: 07/18/17 21:19 Dose: 10 mg Saccharomyces Boulardii (Florastor) 250 mg PO BID [facility] Last Admin: 07/19/17 09:18 Dose: 250 mg - Labs Labs: 07/19/17 06:45 07/19/17 06:45 PT 14.3 SECONDS (9.7-12.2) H 07/16/17 04:00 INR 1.3 07/16/17 04:00 APTT 29 SECONDS (21-34) 07/13/17 20:04 Attending/Attestation - Attestation I have personally seen and examined this patient.: Yes I have fully participated in the care of the patient.: Yes I have reviewed all pertinent clinical information, including history, physical exam and plan: Yes Notes (Text): Pt was seen and examined at bedside Agree with above note and assessment Pt with free intra peritoneal air s/p ERCP and stent removal Pt is improving clinically Less tender C/w IV antibiotics C/w current mx Plan d.w pt in detail Risk and benefit explained in detail
[2017-07-15 15:26] LABS: GRANULAR CAST 7 /lpf (0-1); RBC URINE 4 /hpf (0-3); URINE BACTERIA RARE (<OCC); URINE BILIRUBIN NEGATIVE (NEGATIVE); URINE BLOOD 1+ (NEGATIVE); URINE COLOR Amber (YELLOW); URINE GLUCOSE (UA) NORMAL (Normal); URINE KETONE NEGATIVE (NEGATIVE); URINE LEUKOCYTE ESTERASE NEG Leu/uL (Negative); URINE PROTEIN 2+ mg/dL (NEGATIVE); URINE UROBILINOGEN NORMAL mg/dL (0.2-1.0); WBC URINE 2 /hpf (0-5)
--- NOTE | 2017-07-15 18:00 | CP.CCUPN ---
CCU Subjective - Physician Review Subjective (Free Text): Patient seen and examined at bedside. Patient says he is still having upper abdominal pain. Patient does not feel short of breath but is saturating in the low 90s this am. Patient denies chest pain, shortness of breath, abdominal pain , nausea, vomiting, constipation or diarrhea. CCU Objective - Vital Signs / Intake & Output Vital Signs (Last 4 hours): Vital Signs Pulse Resp BP Pulse Ox 07/15/17 16:30 81 20 95 07/15/17 16:07 107/47 L 07/15/17 16:00 83 24 94 L 07/15/17 15:30 85 24 95 07/15/17 15:07 82 31 H 98/47 L 95 07/15/17 15:00 83 23 95 07/15/17 14:30 88 26 H 95 07/15/17 14:08 88 27 H 93/45 L 95 07/15/17 14:00 85 20 94 L Intake and Output (Last 8hrs): Intake & Output 07/15/17 07/15/17 07/15/17 06:59 14:59 22:59 Intake Total 920 900 200 Output Total 320 235 75 Balance 600 665 125 Weight 135 lb 6.4 oz Intake: Intake, IV Amount 900 900 200 Left Hand 700 Right Distal Port 200 Internal Jugular Right Medial Port 100 Internal Jugular Right Proximal Port 100 700 200 Internal Jugular Tube Feeding 20 Output: Drainage 0 Right Upper Abdomen 0 Urine 320 235 75 Urethral (Pacheco) 320 235 75 Other: # Bowel Movements 0 - Physical Exam Head: Positive for: Atraumatic, Normocephalic Pupils: Positive for: PERRL Extroacular Muscles: Positive for: EOMI Mouth: Positive for: Dry Respiratory/Chest: Positive for: Rhonchi. Negative for: Respiratory Distress, Accessory Muscle Use Cardiovascular: Positive for: Normal S1, S2 Abdomen: Positive for: Tenderness, Distention Lower Extremity: Negative for: Edema Neurological: Positive for: GCS=15 Skin: Positive for: Warm, Normal Color Psychiatric: Positive for: Alert. Negative for: Oriented x 3 - Medications Active Medications: Active Medications Generic Name Dose Route Start Last Admin Trade Name Freq PRN Reason Stop Dose Admin Amlodipine Besylate 10 mg 07/14/17 10:00 07/14/17 09:56 Norvasc PO Not Given DAILY DARINEL Ascorbic Acid 250 mg 07/14/17 10:00 07/14/17 09:57 Vitamin C 250 Mg Tab PO Not Given DAILY [facility] Benzocaine/Menthol 1 love 07/14/17 04:24 Cepacol Sore Throat MT Q2 PRN Sore Throat Clopidogrel Bisulfate 75 mg 07/14/17 10:00 Plavix PO DAILY [facility] Cyproheptadine HCl 4 mg 07/14/17 10:00 07/15/17 12:46 Periactin PO Not Given BID [facility] Donepezil HCl 10 mg 07/13/17 22:00 07/14/17 22:00 Aricept PO Not Given HS [facility] Ferrous Sulfate 325 mg 07/13/17 18:45 07/15/17 06:45 Feosol PO Not Given Q12H [facility] Gemfibrozil 600 mg 07/14/17 10:00 07/15/17 12:46 Lopid PO Not Given BID [facility] Home Med 8 mg 07/14/17 10:00 Fesoterodine Fumarate [Toviaz] PO DAILY [facility] Hydromorphone HCl 0.5 mg 07/15/17 11:15 07/15/17 13:05 Dilaudid IVP 0.5 mg Q4 PRN Administration Pain, severe (8-10) Ciprofloxacin 400 mg in 200 mls @ 133 mls/hr 07/14/17 09:00 07/15/17 09:23 Cipro 400mg/200ml Dsw IVPB 133 mls/hr Q12H DARINEL Administration Vancomycin/Sodium Chloride 1 gm in 200 mls @ 133.333 mls/hr 07/14/17 11:00 10:46 Vancomycin 1 Gm/Ns 200 Ml IVPB 07/19/17 11:01 133.333 mls/hr Q24H DARINEL Administration Meropenem 500 mg/ Dextrose 100 mls @ 100 mls/hr 07/14/17 13:00 07/15/17 11:26 IVPB 100 mls/hr Q6 DARINEL Administration Sodium Chloride 1,000 mls @ 100 mls/hr 07/15/17 09:00 07/15/17 09:20 Sodium Chloride 0.9% IV 100 mls/hr .Q10H DARINEL Administration Insulin Human Regular 0 unit 07/15/17 12:00 07/15/17 12:50 Novolin R SC 2 unit Q6H DARINEL Administration Protocol Latanoprost 0 ml 07/13/17 22:00 07/14/17 22:00 Xalatan Opht OU 2.5 ml HS DARINEL Administration Levothyroxine Sodium 50 mcg 07/14/17 06:30 07/15/17 06:30 Synthroid PO Not Given DAILY@0630 [facility] Meclizine HCl 12.5 mg 07/14/17 10:00 07/15/17 09:54 Antivert PO Not Given TID DARINEL Metoprolol Succinate 100 mg 07/13/17 21:59 07/14/17 13:41 Toprol Xl PO 100 mg DAILY DARINEL Administration Ondansetron HCl 4 mg 07/14/17 00:38 Zofran Inj IVP Q6 PRN Nausea/Vomiting Pantoprazole Sodium 40 mg 07/14/17 10:00 07/15/17 10:46 Protonix Inj IVP 40 mg DAILY DARINEL Administration Rosuvastatin Calcium 10 mg 07/13/17 22:00 07/14/17 22:00 Crestor PO Not Given HS DARINEL Saccharomyces Boulardii 250 mg 07/14/17 10:00 07/15/17 09:54 Florastor PO Not Given BID DARINEL - Patient Studies Lab Studies: Microbiology Studies 07/14/17 08:50 Urine Culture - Preliminary Urine,Clean Catch No growth. 07/14/17 01:40 MRSA Culture (Admit) - Final Naris MRSA NOT DETECTED 07/14/17 08:50 S.aureus & Coag-Neg Staph PNA FISH - Final Blood-Venous Gram Stain - Final 07/14/17 08:50 Gram Stain - Final Blood-Venous Lab Studies 07/15/17 07/15/17 07/15/17 Range/Units 16:18 15:10 15:10 WBC (4.8-10.8) K/uL RBC (4.40-5.90) Mil/uL Hgb (12.0-18.0) g/dL Hct (35.0-51.0) % MCV (80.0-94.0) fL MCH (27.0-31.0) pg MCHC (33.0-37.0) g/dL RDW (11.5-14.5) % Plt Count (130-400) K/uL MPV (7.2-11.7) fL Neut % (Auto) (50.0-75.0) % Lymph % (Auto) (20.0-40.0) % Tyler % (Auto) (0.0-10.0) % Eos % (Auto) (0.0-4.0) % Baso % (Auto) (0.0-2.0) % Neut # (1.8-7.0) K/uL Lymph # (1.0-4.3) K/uL Tyler # (0.0-0.8) K/uL Eos # (0.0-0.7) K/uL Baso # (0.0-0.2) K/uL Neutrophils % (Manual) (50-75) % Band Neutrophils % (0-2) % Lymphocytes % (Manual) (20-40) % Monocytes % (Manual) (0-10) % Basophils % (Manual) (0-2) % Metamyelocytes % (0-0) % Platelet Estimate (NORMAL) RBC Morphology Poikilocytosis (manual Anisocytosis (manual) Puncture Site pCO2 (35-45) mm/Hg pO2 (80-100) mm/Hg HCO3 (21-28) mmol/L ABG pH (7.35-7.45) ABG Total CO2 (22-28) mmol/L ABG O2 Saturation (95-98) % ABG Base Excess (-2.0-3.0) mmol/L Nj Test ABG Potassium (3.6-5.2) mmol/L Glucose (75-110) mg/dl Lactate (0.7-2.1) mmol/L Liter Flow Sodium (132-148) mmol/L Potassium (3.6-5.2) mmol/L Chloride (98-107) mmol/L Carbon Dioxide (22-30) mmol/L Anion Gap (10-20) BUN (9-20) mg/dL Creatinine (0.8-1.5) mg/dL Est GFR ( Amer) Est GFR (Non-Af Amer) POC Glucose (mg/dL) 166 H (65-110) mg/dL Random Glucose (75-110) mg/dL Lactic Acid (0.7-2.1) mmol/L Calcium (8.6-10.4) mg/dl Phosphorus (2.5-4.5) mg/dL Magnesium (1.6-2.3) mg/dL Total Bilirubin (0.2-1.3) mg/dL AST (17-59) U/L ALT (21-72) U/L Alkaline Phosphatase (38-126) U/L Total Creatine Kinase (55-170) U/L CK-MB (Mass) (0.0-3.38) ng/mL Troponin I, Quant (0.00-0.120) ng/mL Total Protein (6.3-8.3) g/dL Albumin (3.5-5.0) g/dL Globulin (2.2-3.9) gm/dL Albumin/Globulin Ratio (1.0-2.1) Arterial Blood Potassium (3.6-5.2) mmol/L Urine Color Jannie (YELLOW) Urine Clarity Hazy (Clear) Urine pH 6.0 (5.0-8.0) Ur Specific [place] 1.019 (1.003-1.030) Urine Protein 2+ H (NEGATIVE) mg/dL Urine Glucose (UA) Normal (Normal) mg/dL Urine Ketones Negative (NEGATIVE) mg/dL Urine Blood 1+ H (NEGATIVE) Urine Nitrate Negative (NEGATIVE) Urine Bilirubin Negative (NEGATIVE) Urine Urobilinogen Normal (0.2-1.0) mg/dL Ur Leukocyte Esterase Neg (Negative) David/uL Urine WBC (Auto) 2 (0-5) /hpf Urine RBC (Auto) 4 H (0-3) /hpf Ur Squamous Epith Cells 1 (0-5) /hpf Urine Bacteria Rare (<OCC) Granular Casts (Auto) 7 (0-1) /lpf Ur Random Sodium 14 mmol/L 07/15/17 07/15/17 07/15/17 Range/Units 12:03 07:57 06:30 WBC (4.8-10.8) K/uL RBC (4.40-5.90) Mil/uL Hgb (12.0-18.0) g/dL Hct (35.0-51.0) % MCV (80.0-94.0) fL MCH (27.0-31.0) pg MCHC (33.0-37.0) g/dL RDW (11.5-14.5) % Plt Count (130-400) K/uL MPV (7.2-11.7) fL Neut % (Auto) (50.0-75.0) % Lymph % (Auto) (20.0-40.0) % Tyler % (Auto) (0.0-10.0) % Eos % (Auto) (0.0-4.0) % Baso % (Auto) (0.0-2.0) % Neut # (1.8-7.0) K/uL Lymph # (1.0-4.3) K/uL Tyler # (0.0-0.8) K/uL Eos # (0.0-0.7) K/uL Baso # (0.0-0.2) K/uL Neutrophils % (Manual) (50-75) % Band Neutrophils % (0-2) % Lymphocytes % (Manual) (20-40) % Monocytes % (Manual) (0-10) % Basophils % (Manual) (0-2) % Metamyelocytes % (0-0) % Platelet Estimate (NORMAL) RBC Morphology Poikilocytosis (manual Anisocytosis (manual) Puncture Site pCO2 (35-45) mm/Hg pO2 (80-100) mm/Hg HCO3 (21-28) mmol/L ABG pH (7.35-7.45) ABG Total CO2 (22-28) mmol/L ABG O2 Saturation (95-98) % ABG Base Excess (-2.0-3.0) mmol/L Nj Test ABG Potassium (3.6-5.2) mmol/L Glucose (75-110) mg/dl Lactate (0.7-2.1) mmol/L Liter Flow Sodium 129 L (132-148) mmol/L Potassium 3.8 (3.6-5.2) mmol/L Chloride 91 L (98-107) mmol/L Carbon Dioxide 28 (22-30) mmol/L Anion Gap 14 (10-20) BUN 38 H (9-20) mg/dL Creatinine 2.3 H (0.8-1.5) mg/dL Est GFR ( Amer) 33 Est GFR (Non-Af Amer) 27 POC Glucose (mg/dL) 213 H 212 H (65-110) mg/dL Random Glucose 176 H (75-110) mg/dL Lactic Acid (0.7-2.1) mmol/L Calcium 8.0 L (8.6-10.4) mg/dl Phosphorus 3.6 (2.5-4.5) mg/dL Magnesium 1.4 L (1.6-2.3) mg/dL Total Bilirubin 0.8 (0.2-1.3) mg/dL AST 45 (17-59) U/L ALT 58 (21-72) U/L Alkaline Phosphatase 51 (38-126) U/L Total Creatine Kinase (55-170) U/L CK-MB (Mass) (0.0-3.38) ng/mL Troponin I, Quant (0.00-0.120) ng/mL Total Protein 6.4 (6.3-8.3) g/dL Albumin 3.2 L (3.5-5.0) g/dL Globulin 3.2 (2.2-3.9) gm/dL Albumin/Globulin Ratio 1.0 (1.0-2.1) Arterial Blood Potassium (3.6-5.2) mmol/L Urine Color (YELLOW) Urine Clarity (Clear) Urine pH (5.0-8.0) Ur Specific [place] (1.003-1.030) Urine Protein (NEGATIVE) mg/dL Urine Glucose (UA) (Normal) mg/dL Urine Ketones (NEGATIVE) mg/dL Urine Blood (NEGATIVE) Urine Nitrate (NEGATIVE) Urine Bilirubin (NEGATIVE) Urine Urobilinogen (0.2-1.0) mg/dL Ur Leukocyte Esterase (Negative) David/uL Urine WBC (Auto) (0-5) /hpf Urine RBC (Auto) (0-3) /hpf Ur Squamous Epith Cells (0-5) /hpf Urine Bacteria (<OCC) Granular Casts (Auto) (0-1) /lpf Ur Random Sodium mmol/L 07/15/17 07/15/17 07/14/17 Range/Units 06:30 04:56 23:13 WBC 14.8 H (4.8-10.8) K/uL RBC 3.31 L (4.40-5.90) Mil/uL Hgb 9.5 L (12.0-18.0) g/dL Hct 27.6 L (35.0-51.0) % MCV 83.4 (80.0-94.0) fL MCH 28.6 (27.0-31.0) pg MCHC 34.3 (33.0-37.0) g/dL RDW 14.7 H (11.5-14.5) % Plt Count 190 (130-400) K/uL MPV 9.1 (7.2-11.7) fL Neut % (Auto) 87.2 H (50.0-75.0) % Lymph % (Auto) 8.1 L (20.0-40.0) % Tyler % (Auto) 4.2 (0.0-10.0) % Eos % (Auto) 0.1 (0.0-4.0) % Baso % (Auto) 0.4 (0.0-2.0) % Neut # 12.9 H (1.8-7.0) K/uL Lymph # 1.2 (1.0-4.3) K/uL Tyler # 0.6 (0.0-0.8) K/uL Eos # 0.0 (0.0-0.7) K/uL Baso # 0.1 (0.0-0.2) K/uL Neutrophils % (Manual) 84 H (50-75) % Band Neutrophils % 6 H (0-2) % Lymphocytes % (Manual) 6 L (20-40) % Monocytes % (Manual) 4 (0-10) % Basophils % (Manual) (0-2) % Metamyelocytes % (0-0) % Platelet Estimate Normal (NORMAL) RBC Morphology Normal Poikilocytosis (manual Anisocytosis (manual) Puncture Site Rb pCO2 36 (35-45) mm/Hg pO2 55 L (80-100) mm/Hg HCO3 31.6 H (21-28) mmol/L ABG pH 7.55 H (7.35-7.45) ABG Total CO2 32.6 H (22-28) mmol/L ABG O2 Saturation 93.2 L (95-98) % ABG Base Excess 8.7 H (-2.0-3.0) mmol/L Nj Test Na ABG Potassium 4.0 (3.6-5.2) mmol/L Glucose 232 H (75-110) mg/dl Lactate 1.5 (0.7-2.1) mmol/L Liter Flow 3.0 Sodium 132.0 (132-148) mmol/L Potassium (3.6-5.2) mmol/L Chloride 95.0 L (98-107) mmol/L Carbon Dioxide (22-30) mmol/L Anion Gap (10-20) BUN (9-20) mg/dL Creatinine (0.8-1.5) mg/dL Est GFR ( Amer) Est GFR (Non-Af Amer) POC Glucose (mg/dL) (65-110) mg/dL Random Glucose (75-110) mg/dL Lactic Acid (0.7-2.1) mmol/L Calcium (8.6-10.4) mg/dl Phosphorus (2.5-4.5) mg/dL Magnesium (1.6-2.3) mg/dL Total Bilirubin (0.2-1.3) mg/dL AST (17-59) U/L ALT (21-72) U/L Alkaline Phosphatase (38-126) U/L Total Creatine Kinase 225 H (55-170) U/L CK-MB (Mass) 2.07 (0.0-3.38) ng/mL Troponin I, Quant 0.0410 (0.00-0.120) ng/mL Total Protein (6.3-8.3) g/dL Albumin (3.5-5.0) g/dL Globulin (2.2-3.9) gm/dL Albumin/Globulin Ratio (1.0-2.1) Arterial Blood Potassium 4.0 (3.6-5.2) mmol/L Urine Color (YELLOW) Urine Clarity (Clear) Urine pH (5.0-8.0) Ur Specific [place] (1.003-1.030) Urine Protein (NEGATIVE) mg/dL Urine Glucose (UA) (Normal) mg/dL Urine Ketones (NEGATIVE) mg/dL Urine Blood (NEGATIVE) Urine Nitrate (NEGATIVE) Urine Bilirubin (NEGATIVE) Urine Urobilinogen (0.2-1.0) mg/dL Ur Leukocyte Esterase (Negative) David/uL Urine WBC (Auto) (0-5) /hpf Urine RBC (Auto) (0-3) /hpf Ur Squamous Epith Cells (0-5) /hpf Urine Bacteria (<OCC) Granular Casts (Auto) (0-1) /lpf Ur Random Sodium mmol/L 07/14/17 07/14/17 07/14/17 Range/Units 22:55 22:53 22:53 WBC 14.9 H (4.8-10.8) K/uL RBC 3.39 L (4.40-5.90) Mil/uL Hgb 9.5 L (12.0-18.0) g/dL Hct 28.3 L (35.0-51.0) % MCV 83.4 (80.0-94.0) fL MCH 28.0 (27.0-31.0) pg MCHC 33.6 (33.0-37.0) g/dL RDW 14.6 H (11.5-14.5) % Plt Count 200 (130-400) K/uL MPV 8.9 (7.2-11.7) fL Neut % (Auto) 87.7 H (50.0-75.0) % Lymph % (Auto) 7.2 L (20.0-40.0) % Tyler % (Auto) 4.8 (0.0-10.0) % Eos % (Auto) 0.0 (0.0-4.0) % Baso % (Auto) 0.3 (0.0-2.0) % Neut # 13.0 H (1.8-7.0) K/uL Lymph # 1.1 (1.0-4.3) K/uL Tyler # 0.7 (0.0-0.8) K/uL Eos # 0.0 (0.0-0.7) K/uL Baso # 0.0 (0.0-0.2) K/uL Neutrophils % (Manual) 78 H (50-75) % Band Neutrophils % 9 H (0-2) % Lymphocytes % (Manual) 6 L (20-40) % Monocytes % (Manual) 4 (0-10) % Basophils % (Manual) 1 (0-2) % Metamyelocytes % 2 H (0-0) % Platelet Estimate Normal (NORMAL) RBC Morphology Poikilocytosis (manual Slight Anisocytosis (manual) Slight Puncture Site pCO2 (35-45) mm/Hg pO2 (80-100) mm/Hg HCO3 (21-28) mmol/L ABG pH (7.35-7.45) ABG Total CO2 (22-28) mmol/L ABG O2 Saturation (95-98) % ABG Base Excess (-2.0-3.0) mmol/L Nj Test ABG Potassium (3.6-5.2) mmol/L Glucose (75-110) mg/dl Lactate (0.7-2.1) mmol/L Liter Flow Sodium 128 L (132-148) mmol/L Potassium 4.0 (3.6-5.2) mmol/L Chloride 91 L (98-107) mmol/L Carbon Dioxide 26 (22-30) mmol/L Anion Gap 14 (10-20) BUN 41 H (9-20) mg/dL Creatinine 2.4 H (0.8-1.5) mg/dL Est GFR ( Amer) 32 Est GFR (Non-Af Amer) 26 POC Glucose (mg/dL) (65-110) mg/dL Random Glucose 187 H (75-110) mg/dL Lactic Acid 1.8 (0.7-2.1) mmol/L Calcium 8.3 L (8.6-10.4) mg/dl Phosphorus (2.5-4.5) mg/dL Magnesium (1.6-2.3) mg/dL Total Bilirubin 1.0 (0.2-1.3) mg/dL AST 35 (17-59) U/L ALT 48 (21-72) U/L Alkaline Phosphatase 55 (38-126) U/L Total Creatine Kinase (55-170) U/L CK-MB (Mass) (0.0-3.38) ng/mL Troponin I, Quant (0.00-0.120) ng/mL Total Protein 6.0 L (6.3-8.3) g/dL Albumin 3.6 (3.5-5.0) g/dL Globulin 2.4 (2.2-3.9) gm/dL Albumin/Globulin Ratio 1.5 (1.0-2.1) Arterial Blood Potassium (3.6-5.2) mmol/L Urine Color (YELLOW) Urine Clarity (Clear) Urine pH (5.0-8.0) Ur Specific [place] (1.003-1.030) Urine Protein (NEGATIVE) mg/dL Urine Glucose (UA) (Normal) mg/dL Urine Ketones (NEGATIVE) mg/dL Urine Blood (NEGATIVE) Urine Nitrate (NEGATIVE) Urine Bilirubin (NEGATIVE) Urine Urobilinogen (0.2-1.0) mg/dL Ur Leukocyte Esterase (Negative) David/uL Urine WBC (Auto) (0-5) /hpf Urine RBC (Auto) (0-3) /hpf Ur Squamous Epith Cells (0-5) /hpf Urine Bacteria (<OCC) Granular Casts (Auto) (0-1) /lpf Ur Random Sodium mmol/L 07/14/17 Range/Units 21:13 WBC (4.8-10.8) K/uL RBC (4.40-5.90) Mil/uL Hgb (12.0-18.0) g/dL Hct (35.0-51.0) % MCV (80.0-94.0) fL MCH (27.0-31.0) pg MCHC (33.0-37.0) g/dL RDW (11.5-14.5) % Plt Count (130-400) K/uL MPV (7.2-11.7) fL Neut % (Auto) (50.0-75.0) % Lymph % (Auto) (20.0-40.0) % Tyler % (Auto) (0.0-10.0) % Eos % (Auto) (0.0-4.0) % Baso % (Auto) (0.0-2.0) % Neut # (1.8-7.0) K/uL Lymph # (1.0-4.3) K/uL Tyler # (0.0-0.8) K/uL Eos # (0.0-0.7) K/uL Baso # (0.0-0.2) K/uL Neutrophils % (Manual) (50-75) % Band Neutrophils % (0-2) % Lymphocytes % (Manual) (20-40) % Monocytes % (Manual) (0-10) % Basophils % (Manual) (0-2) % Metamyelocytes % (0-0) % Platelet Estimate (NORMAL) RBC Morphology Poikilocytosis (manual Anisocytosis (manual) Puncture Site pCO2 (35-45) mm/Hg pO2 (80-100) mm/Hg HCO3 (21-28) mmol/L ABG pH (7.35-7.45) ABG Total CO2 (22-28) mmol/L ABG O2 Saturation (95-98) % ABG Base Excess (-2.0-3.0) mmol/L Nj Test ABG Potassium (3.6-5.2) mmol/L Glucose (75-110) mg/dl Lactate (0.7-2.1) mmol/L Liter Flow Sodium (132-148) mmol/L Potassium (3.6-5.2) mmol/L Chloride (98-107) mmol/L Carbon Dioxide (22-30) mmol/L Anion Gap (10-20) BUN (9-20) mg/dL Creatinine (0.8-1.5) mg/dL Est GFR ( Amer) Est GFR (Non-Af Amer) POC Glucose (mg/dL) 223 H (65-110) mg/dL Random Glucose (75-110) mg/dL Lactic Acid (0.7-2.1) mmol/L Calcium (8.6-10.4) mg/dl Phosphorus (2.5-4.5) mg/dL Magnesium (1.6-2.3) mg/dL Total Bilirubin (0.2-1.3) mg/dL AST (17-59) U/L ALT (21-72) U/L Alkaline Phosphatase (38-126) U/L Total Creatine Kinase (55-170) U/L CK-MB (Mass) (0.0-3.38) ng/mL Troponin I, Quant (0.00-0.120) ng/mL Total Protein (6.3-8.3) g/dL Albumin (3.5-5.0) g/dL Globulin (2.2-3.9) gm/dL Albumin/Globulin Ratio (1.0-2.1) Arterial Blood Potassium (3.6-5.2) mmol/L Urine Color (YELLOW) Urine Clarity (Clear) Urine pH (5.0-8.0) Ur Specific [place] (1.003-1.030) Urine Protein (NEGATIVE) mg/dL Urine Glucose (UA) (Normal) mg/dL Urine Ketones (NEGATIVE) mg/dL Urine Blood (NEGATIVE) Urine Nitrate (NEGATIVE) Urine Bilirubin (NEGATIVE) Urine Urobilinogen (0.2-1.0) mg/dL Ur Leukocyte Esterase (Negative) David/uL Urine WBC (Auto) (0-5) /hpf Urine RBC (Auto) (0-3) /hpf Ur Squamous Epith Cells (0-5) /hpf Urine Bacteria (<OCC) Granular Casts (Auto) (0-1) /lpf Ur Random Sodium mmol/L Laboratory Results - last 24 hr 07/14/17 07/14/17 07/14/17 21:13 22:53 22:53 WBC 14.9 H RBC 3.39 L Hgb 9.5 L Hct 28.3 L MCV 83.4 MCH 28.0 MCHC 33.6 RDW 14.6 H Plt Count 200 MPV 8.9 Neut % (Auto) 87.7 H Lymph % (Auto) 7.2 L [place] % (Auto) 4.8 Eos % (Auto) 0.0 Baso % (Auto) 0.3 Neut # 13.0 H Lymph # 1.1 Tyler # 0.7 Eos # 0.0 Baso # 0.0 Neutrophils % (Manual) 78 H Band Neutrophils % 9 H Lymphocytes % (Manual) 6 L Monocytes % (Manual) 4 Basophils % (Manual) 1 Metamyelocytes % 2 H Platelet Estimate Normal RBC Morphology Poikilocytosis (manual Slight Anisocytosis (manual) Slight Puncture Site pCO2 pO2 HCO3 ABG pH ABG Total CO2 ABG O2 Saturation ABG Base Excess Nj Test ABG Potassium Glucose Lactate Liter Flow Sodium 128 L Potassium 4.0 Chloride 91 L Carbon Dioxide 26 Anion Gap 14 BUN 41 H Creatinine 2.4 H Est GFR ( Amer) 32 Est GFR (Non-Af Amer) 26 POC Glucose (mg/dL) 223 H Random Glucose 187 H Lactic Acid Calcium 8.3 L Phosphorus Magnesium Total Bilirubin 1.0 AST 35 ALT 48 Alkaline Phosphatase 55 Total Creatine Kinase CK-MB (Mass) Troponin I, Quant Total Protein 6.0 L Albumin 3.6 Globulin 2.4 Albumin/Globulin Ratio 1.5 Arterial Blood Potassium Urine Color Urine Clarity Urine pH Ur Specific [place] Urine Protein Urine Glucose (UA) Urine Ketones Urine Blood Urine Nitrate Urine Bilirubin Urine Urobilinogen Ur Leukocyte Esterase Urine WBC (Auto) Urine RBC (Auto) Ur Squamous Epith Cells Urine Bacteria Granular Casts (Auto) Ur Random Sodium 07/14/17 07/14/17 07/15/17 22:55 23:13 04:56 WBC RBC Hgb Hct MCV MCH MCHC RDW Plt Count MPV Neut % (Auto) Lymph % (Auto) [place] % (Auto) Eos % (Auto) Baso % (Auto) Neut # Lymph # Tyler # Eos # Baso # Neutrophils % (Manual) Band Neutrophils % Lymphocytes % (Manual) Monocytes % (Manual) Basophils % (Manual) Metamyelocytes % Platelet Estimate RBC Morphology Poikilocytosis (manual Anisocytosis (manual) Puncture Site Rb pCO2 36 pO2 55 L HCO3 31.6 H ABG pH 7.55 H ABG Total CO2 32.6 H ABG O2 Saturation 93.2 L ABG Base Excess 8.7 H Nj Test Na ABG Potassium 4.0 Glucose 232 H Lactate 1.5 Liter Flow 3.0 Sodium 132.0 Potassium Chloride 95.0 L Carbon Dioxide Anion Gap BUN Creatinine Est GFR ( Amer) Est GFR (Non-Af Amer) POC Glucose (mg/dL) Random Glucose Lactic Acid 1.8 Calcium Phosphorus Magnesium Total Bilirubin AST ALT Alkaline Phosphatase Total Creatine Kinase 225 H CK-MB (Mass) 2.07 Troponin I, Quant 0.0410 Total Protein Albumin Globulin Albumin/Globulin Ratio Arterial Blood Potassium 4.0 Urine Color Urine Clarity Urine pH Ur Specific [place] Urine Protein Urine Glucose (UA) Urine Ketones Urine Blood Urine Nitrate Urine Bilirubin Urine Urobilinogen Ur Leukocyte Esterase Urine WBC (Auto) Urine RBC (Auto) Ur Squamous Epith Cells Urine Bacteria Granular Casts (Auto) Ur Random Sodium 07/15/17 07/15/17 07/15/17 06:30 06:30 07:57 WBC 14.8 H RBC 3.31 L Hgb 9.5 L Hct 27.6 L MCV 83.4 MCH 28.6 MCHC 34.3 RDW 14.7 H Plt Count 190 MPV 9.1 Neut % (Auto) 87.2 H Lymph % (Auto) 8.1 L [place] % (Auto) 4.2 Eos % (Auto) 0.1 Baso % (Auto) 0.4 Neut # 12.9 H Lymph # 1.2 Tyler # 0.6 Eos # 0.0 Baso # 0.1 Neutrophils % (Manual) 84 H Band Neutrophils % 6 H Lymphocytes % (Manual) 6 L Monocytes % (Manual) 4 Basophils % (Manual) Metamyelocytes % Platelet Estimate Normal RBC Morphology Normal Poikilocytosis (manual Anisocytosis (manual) Puncture Site pCO2 pO2 HCO3 ABG pH ABG Total CO2 ABG O2 Saturation ABG Base Excess Nj Test ABG Potassium Glucose Lactate Liter Flow Sodium 129 L Potassium 3.8 Chloride 91 L Carbon Dioxide 28 Anion Gap 14 BUN 38 H Creatinine 2.3 H Est GFR ( Amer) 33 Est GFR (Non-Af Amer) 27 POC Glucose (mg/dL) 212 H Random Glucose 176 H Lactic Acid Calcium 8.0 L Phosphorus 3.6 Magnesium 1.4 L Total Bilirubin 0.8 AST 45 ALT 58 Alkaline Phosphatase 51 Total Creatine Kinase CK-MB (Mass) Troponin I, Quant Total Protein 6.4 Albumin 3.2 L Globulin 3.2 Albumin/Globulin Ratio 1.0 Arterial Blood Potassium Urine Color Urine Clarity Urine pH Ur Specific [place] Urine Protein Urine Glucose (UA) Urine Ketones Urine Blood Urine Nitrate Urine Bilirubin Urine Urobilinogen Ur Leukocyte Esterase Urine WBC (Auto) Urine RBC (Auto) Ur Squamous Epith Cells Urine Bacteria Granular Casts (Auto) Ur Random Sodium 07/15/17 07/15/17 07/15/17 12:03 15:10 15:10 WBC RBC Hgb Hct MCV MCH MCHC RDW Plt Count MPV Neut % (Auto) Lymph % (Auto) [place] % (Auto) Eos % (Auto) Baso % (Auto) Neut # Lymph # [place] # Eos # Baso # Neutrophils % (Manual) Band Neutrophils % Lymphocytes % (Manual) Monocytes % (Manual) Basophils % (Manual) Metamyelocytes % Platelet Estimate RBC Morphology Poikilocytosis (manual Anisocytosis (manual) Puncture Site pCO2 pO2 HCO3 ABG pH ABG Total CO2 ABG O2 Saturation ABG Base Excess Nj Test ABG Potassium Glucose Lactate Liter Flow Sodium Potassium Chloride Carbon Dioxide Anion Gap BUN Creatinine Est GFR ( Amer) Est GFR (Non-Af Amer) POC Glucose (mg/dL) 213 H Random Glucose Lactic Acid Calcium Phosphorus Magnesium Total Bilirubin AST ALT Alkaline Phosphatase Total Creatine Kinase CK-MB (Mass) Troponin I, Quant Total Protein Albumin Globulin Albumin/Globulin Ratio Arterial Blood Potassium Urine Color [place] Urine Clarity Hazy Urine pH 6.0 Ur Specific [place] 1.019 Urine Protein 2+ H Urine Glucose (UA) Normal Urine Ketones Negative Urine Blood 1+ H Urine Nitrate Negative Urine Bilirubin Negative Urine Urobilinogen Normal Ur Leukocyte Esterase Neg Urine WBC (Auto) 2 Urine RBC (Auto) 4 H Ur Squamous Epith Cells 1 Urine Bacteria Rare Granular Casts (Auto) 7 Ur Random Sodium 14 07/15/17 16:18 WBC RBC Hgb Hct MCV MCH MCHC RDW Plt Count MPV Neut % (Auto) Lymph % (Auto) [place] % (Auto) Eos % (Auto) Baso % (Auto) Neut # Lymph # [place] # Eos # Baso # Neutrophils % (Manual) Band Neutrophils % Lymphocytes % (Manual) Monocytes % (Manual) Basophils % (Manual) Metamyelocytes % Platelet Estimate RBC Morphology Poikilocytosis (manual Anisocytosis (manual) Puncture Site pCO2 pO2 HCO3 ABG pH ABG Total CO2 ABG O2 Saturation ABG Base Excess Nj Test ABG Potassium Glucose Lactate Liter Flow Sodium Potassium Chloride Carbon Dioxide Anion Gap BUN Creatinine Est GFR ( Amer) Est GFR (Non-Af Amer) POC Glucose (mg/dL) 166 H Random Glucose Lactic Acid Calcium Phosphorus Magnesium Total Bilirubin AST ALT Alkaline Phosphatase Total Creatine Kinase CK-MB (Mass) Troponin I, Quant Total Protein Albumin Globulin Albumin/Globulin Ratio Arterial Blood Potassium Urine Color Urine Clarity Urine pH Ur Specific [place] Urine Protein Urine Glucose (UA) Urine Ketones Urine Blood Urine Nitrate Urine Bilirubin Urine Urobilinogen Ur Leukocyte Esterase Urine WBC (Auto) Urine RBC (Auto) Ur Squamous Epith Cells Urine Bacteria Granular Casts (Auto) Ur Random Sodium Fingerstick Blood Sugar Results: 217 Review of Systems - Review of Systems Systems not reviewed;Unavailable: Dementia - Cardiovascular Cardiovascular: absent: Chest Pain, Dyspnea - Gastrointestinal Gastrointestinal: Abdominal Pain. absent: Constipation, Diarrhea, Nausea, Vomiting - Genitourinary Genitourinary: absent: Difficulty Urinating - Psychiatric Psychiatric: Confusion, Memory Loss Critical Care Progress Note - Nutrition Nutrition: Nutrition Category Date Time Status NPO Diet [DIET] Diets 07/14/17 Dinner Active Assessment/Plan - Assessment and Plan (Free Text) Assessment: 82 M w/ PMHx of Diabetes, HLD, HTN, Hypothyroidism, CKD Stage 3, Alzheimer's Dementia, 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 Code sepsis called on 07/14/17. Neuro: hx Alzheimer's dementia -Aricept 10 mg PO HS -CT head (07/13): no acute intracranial hemorrhage, or suspicious mass effect Cardio: HTN, hx CVA -Cardiology consulted (Dr. Chau), help appreciated -Home blood pressure medications held because blood pressure low: Amlodipine 10 mg po daily, Metoprolol Succinate 100 mg po daily, Losartan 100 mg PO daily -Plavix 75mg po daily -Crestor 10 mg po HS -Lipitor 80 mg po HS -Gemfibrozil 600 mg po BID -Negative troponins -TSH and free T4 WNL - F/u echo report from 07/13/17 Pulm: bilateral pneumonia -CT Abdomen/Pelvis 07/13/17 showed bibasilar lingular and right middle lobe mild nonspecific infiltrates consistent with atelectasis/pneumonia -CXR 07/14/17 showed left basilar consolidative changes with small left pleural effusion -CXR 07/15/17: small left pleural effusion, bibasilar atelectasis -Meropenem, Cipro, and Vanco -Urine legionella and Influenza A/B negative -f/u urine strep pneumo ag, mycoplasma IgM, IgG GI: abdominal pain likely secondary to gas/ fluid around liver - CT C/A/P showed free air under the right hemidiaphragm and extrahepatic CBD pneumobilia - Surgery consulted (Dr. Boyce) - help appreciated -NPO -NGT in place -CT abdomen and pelvis with IV and PO contrast- showed gas and fluid around left lobe liver and along inferior vena cava that is unchanged, no evidence of extravasation of oral contrast from stomach or duodenem. -Abdominal u/s (07/15): limited sonographic evaluation of the liver for purposes of drainage and did not show the subdiaphragmatic fluid collection see in previous CT -no intervention by IR at this time : hx overactive bladder -Festerodine 8 mg PO 1x/day -Enlarged Prostate on CT Abdomen/Pelvis -f/u PSA Nephro: CKD stage 3, possible acute on chronic - BUN 38, Cr 2.3, worsening - 2+ urine protein and 2+ urine glucose on U/A 07/14/17 - Nephrology consulted (Dr. Oconnell) -NS @ 100 cc/hr Endo: hx of diabetes, hypothyroidism - Random glucose from 112-281 - ISS -accuchecks -Synthroid 50 mcg po daily -TSH and T4 WNL ID: Sepsis secondary to likely biliary or hepatic perforation from recent ERCP - Code sepsis called 07/14 - Lactate 3.0, 21 bands - HCAP pneumonia suspected given recent hospitalization and antibiotic use for buttock abscess - Infectious Disease consulted (Dr. Langford), help appreciated -blood culture: gram positive cocci -urine cultures: no growth -Negative MRSA - Meropenem 500 mg q6h, Ciprofloxacin 400 mg q12h and Vancomycin 1gm q24h - Sodium Bicarb 150 meq PPX: DVT: SCD's, hold chemical anticoagulation due to complications s/p ERCP GI: Protonix 40 mg IV daily florastor
--- NOTE | 2017-07-15 21:23 | CARD ---
APPROVED REPORT EKG Measurement Heart [id number] ND [id number] <Conclusion> Normal sinus rhythm with sinus arrhythmia Left axis deviation Abnormal ECG
[2017-07-15] MEDS: Latanoprost 2.5 ml Opht Soln OU SCH (22:20)
--- NOTE | 2017-07-15 23:00 | CARD ---
APPROVED REPORT EXAM: Two-dimensional and M-mode echocardiogram with Doppler and color Doppler. Other Information Quality : GoodRhythm : NSR INDICATION Dizziness and Vertigo Chest Pain MRSA RISK FACTORS Hypertension Hyperlipidemia Diabetes 2D DIMENSIONS IVSd1.8 (0.7-1.1cm)LVDd3.4 (3.9-5.9cm) PWd1.3 (0.7-1.1cm)LVDs2.4 (2.5-4.0cm) FS (%) 31.1 %LVEF (%)60.0 (>50%) M-Mode DIMENSIONS Left Atrium (MM)3.69 (2.5-4.0cm)Aortic Root3.44 (2.2-3.7cm) Aortic Valve AoV Peak Qixxwfem109.2cm/Eliza Peak GR.9mmHg Mitral Valve MV E Iinwijuw74.1cm/sMV A Fzpzcjfn20.6cm/sE/A ratio0.4 TDI E/Lateral E'0.0E/Medial E'0.0 Tricuspid Valve TR Peak Lmfmepoc193ln/sTR Peak Gr.[id number] LEFT VENTRICLE The left ventricle is normal size. The LV is underfilled. There is moderate concentric left ventricular hypertrophy. The left ventricular function is normal. The left ventricular ejection fraction is within the normal range. There is normal LV segmental wall motion. Transmitral Doppler flow pattern is Grade I-abnormal relaxation pattern. RIGHT VENTRICLE The right ventricle is normal size. There is normal right ventricular wall thickness. The right ventricular systolic function is normal. ATRIA The left atrium size is normal. The right atrium size is normal. The interatrial septum is intact with no evidence for an atrial septal defect. AORTIC VALVE The aortic valve is thickened but opens well. No aortic regurgitation is present. There is no aortic valvular stenosis. MITRAL VALVE Mitral annular calcification is mild. There is no evidence of mitral valve prolapse. There is no mitral valve stenosis. Mitral regurgitation is trace. TRICUSPID VALVE The tricuspid valve is normal in structure. There is no tricuspid valve regurgitation noted. There is no tricuspid valve prolapse or vegetation. There is no tricuspid valve stenosis. PULMONIC VALVE PV NWV GREAT VESSELS The aortic root is normal in size. The ascending aorta is normal in size. The IVC is normal in size and collapses >50% with inspiration. PERICARDIAL EFFUSION There is no pericardial effusion. There is no pleural effusion. <Conclusion> The left ventricular ejection fraction is within the normal range. There is moderate concentric left ventricular hypertrophy. Transmitral Doppler flow pattern is Grade I-abnormal relaxation pattern. Mitral annular calcification is mild. Mitral regurgitation is trace. PV NWV
[2017-07-16] MEDS: HYDROmorphone 0.5 mg/0.5 ml ISec IVP PRN ×5 (02:40→21:11)
[2017-07-16] MEDS: Sodium Chloride 0.9% 1,000 ML IV SCH ×2 (03:25→17:26)
[2017-07-16] MEDS: Meropenem 500 MG in Dextrose 5% In Water 100 ML IVPB SCH ×3 (05:10→17:26)
[2017-07-16 05:52] LABS: BASO # 0.1 K/uL (0.0-0.2); BASO % 0.6 % (0.0-2.0); EOS % 0.3 % (0.0-4.0); HEMATOCRIT 27.2 % (35.0-51.0); LYMPH # 1.1 K/uL (1.0-4.3); LYMPH % 9.1 % (20.0-40.0); MEAN CELL VOLUME 83.9 fL (80.0-94.0); MEAN CORPUSCULAR HEMOGLOBIN 28.3 pg (27.0-31.0); MEAN CORPUSCULAR HGB CONC 33.8 g/dL (33.0-37.0); MEAN PLATELET VOLUME 9.2 fL (7.2-11.7); MONO # 0.5 K/uL (0.0-0.8); MONO % 3.7 % (0.0-10.0); NRBC % 0.2 % (0.0-2.0); PLATELET COUNT 184 K/uL (130-400); RED CELL DISTRIBUTION WIDTH 14.6 % (11.5-14.5); WHITE BLOOD COUNT 12.3 K/uL (4.8-10.8)
[2017-07-16 06:15] LABS: INR 1.3
[2017-07-16] MEDS: Levothyroxine 50 MCG TAB PO SCH (06:17)
[2017-07-16] MEDS: (Novolin R) Insulin Human Regular 100 units/ml vial SC SCH ×4 (06:31→17:57)
[2017-07-16 06:43] LABS: POTASSIUM 3.4 mmol/L (3.6-5.2)
[2017-07-16 06:45] LABS: BILIRUBIN,TOTAL 0.7 mg/dL (0.2-1.3)
[2017-07-16 06:46] LABS: ALB/GLOB RATIO 0.9 (1.0-2.1); CALCIUM 7.5 mg/dl (8.6-10.4); MAGNESIUM 1.9 mg/dL (1.6-2.3); PHOSPHOROUS 4.4 mg/dL (2.5-4.5); TOTAL PROTEIN 5.9 g/dL (6.3-8.3)
--- NOTE | 2017-07-16 08:06 | CP.PCM.PN ---
Subjective - Date & Time of Evaluation Date of Evaluation: 07/16/17 Time of Evaluation: 07:50 - Subjective Subjective: Hospitalist Progress Note Patient was seen and examined at 7:50 AM 07/16/17 ICU Bed #18 82 year old male with extensive medical history (please see Assessment and Plans below) who underwent ERCP for removal of CBD Stent on 07/13/17 after which he complained of abdominal and chest pain. A rapid response was called. CT Chest revealed pneumobilia as well as possible free air beneath Right Hemidiaphragm within Paraesophageal Soft Tissues. CT Abdomen/Pelvis revealed gas fluid and stranding in the subcapsular and extracapsular area around Left Lobe Liver. NGT was placed, patient made NPO, and was then transferred to ICU for further treatment and huqhytrxpd04/31/17. Repeat CT Abdomen/Pelvis on showed gas and fluid around left lobe liver and along inferior vena cava that is unchanged, no evidence of extravasation of oral contrast from stomach or duodenem. GI Dr. Damian spoke with IR 07/15/17 and area is NOT amenable to percutaneous drainage. Surgery Team evaluated patient 07/14/17 an conservative management for now. Consideration by ICU/GI Team to start TPN. Please see Assessment and Plans below for further details. Upon FULL ROS: Generalized Chest Pain pressure like is unchanged which is worsened with cough that is dry Generalized Abdominal Pain gas like and is unchanged Exam: Physical Exam - Constitutional Appears: Appears to be in pain and is in and out of consciousness but does participate in exam. He is on 50% Nonrebreather - Head Exam Head Exam: NORMAL INSPECTION, NORMOCEPHALIC - Eye Exam Eye Exam: EOMI, Normal appearance - ENT Exam ENT Exam: Mucous Membranes Moist, NGT in place with production of 40 ml of dark green fluid in past 24 hours as per my conversation with Nurse Jewell. - Neck Exam Neck exam: Positive for: Full Rom, Normal Inspection. Right Triple Lumen Catheter in place with no signs of surrounding cellulitis - Respiratory Exam Respiratory Exam: Clear to Auscultation Bilateral, NORMAL BREATHING PATTERN. This exam is limited by patient not breathing in deeply and exhaling as instructed. absent: Decreased Breath Sounds, Rhonchi, Wheezes - Cardiovascular Exam Cardiovascular Exam: REGULAR RHYTHM, +S1, +S2 - GI/Abdominal Exam GI & Abdominal Exam: Distended, Bowel Sounds are now decreased in all 4 quadrants, Tenderness diffusely as per patient (who moans whenever he is palpated in any of the quadrants), NO guarding/NO rebound tenderness. absent: Rigid - Extremities Exam Extremities exam: Positive for: normal inspection, Pulses are strong and equal , Capillary Refill is 2 seconds, NO edema - Back Exam Back exam: This was not done this morning - Neurological Exam Neurological exam: He is still in and out of consciousness but does participate in exam and answer "yes" and "no" questions in danish - Psychiatric Exam Psychiatric exam: NOT performed this morning - Skin Skin Exam: Left Lower Buttock 0.2 cm area of former I&D site that has dry eschar. NON tender to palpation. Some hardness around this site but NO erythema , NO edema, and NO warmth. Assessment and Plan: Assessment & Plan (1) Chest pain Assessment and Plan: Patient with atypical chest pain. Cardio Dr. Chau does not feel that this is cardiac related Troponins are negative TSH, Free T4 are normal ECHO 07/13/17: LV EF is WNL, moderate concentric LVH, Grade I abnormal relaxation pattern Status: Acute (2) ERCP Guidewire Perforation of Liver Capsule vs Peripheral Bile Duct Assessment and Plan: s/p ERCP with removal of stent and sphincterotomy with Dr. Damian 07/13/17 CXR 07/13/17 does not show air under diaphragm. Chest CT 07/13/17 shows pneumobilia as well as possible free air beneath Right Hemidiaphragm within Paraesophagel soft tissues. CT Abdomen/Pelvis 07/13/17 shows gas fluid and stranding in the subcapsular and extracapsular area around Left Lobe Liver. CT Abdomen/Pelvis on 07/14/17 showed gas and fluid around left lobe liver and along inferior vena cava that is unchanged, no evidence of extravasation of oral contrast from stomach or duodenem. GI Dr. Damian spoke with IR 07/15/17 and area is NOT amenable to percutaneous drainage. Surgery Dr. Crawford consulted: no surgical intervention at this time and keep NPO with NGT for now NGT in place 300 ml of dark green fluid (however I could not find documentation as whether this was since the time of my exam on 07/14/17) Status: Acute (3) Bilateral Pneumonia CT Abdomen/Pelvis 07/13/17 showed bibasilar lingular and right middle lobe mild nonspecific infiltrates consistent with atelectasis/pneumonia As patient was admitted to hospital within the last month (for Left Buttock Abscess) and has been on antibiotics, this is likely Health Care Associated Pneumonia with increased risk for Multidrug Resistence therefore he was started on the following: Meropenem 500 mg IV Q6H (07/14/17) Ciprofloxacin 400 mg IV Q12H (07/14/17) Vancomycin 1 gm IV Q24H (07/14/17) F/U Vancomycin Trough Thursday07/17/17 at 8:30 AM prior to 4th dose Urine Legionella Ag is negative F/U Urine Strep pneumoniae Ag F/U Mycoplasma IgM and IgG Influenza A/B is negative F/U Blood and Urine Cultures ID Dr. Langford is following Status: Acute (4). Anion Gap Metabolic Acidosis Sepsis: CODE SEPSIS was called 07/14/17 See Assessment and Plans #2 and #3 Due to the severe acidosis he was also started on D5W with 3 amps of NaHCO3 running at 100 ml/hour and this has resolved therefore the D5W NaHCO3 was discontinued 07/15/17 Status: Acute (5). Hyperkalemia Likely secondary to the Anion Gap Metabolic Acidosis See Assessment and Plans #2 and #3 This has resolved K is 3.4 07/16/17 Status: Acute (6). CKD Stage [address] Oconnell Patient's Renal function is worsening and he has been started on NS at 100 ml/ hr 07/15/17 Satus: Chronic (7). Headache with Hx CVA Assessment and Plan: CT Head 07/13/17 was negative for bleed or acute process If NO surgical/IR intervention will then restart ASA Plavix 75 mg PO 1x/day Status: Acute (8) AD (Alzheimer's disease) Assessment and Plan: Aricept 10 mg PO daily. Status: Chronic (9) Choledocholithiasis Assessment and Plan: s/p ERCP with removal of stent and sphincterotomy with Dr. Damian 07/13/17 Status: Acute (10) Anemia Assessment and Plan: Likely secondary to Chronic Disease: CKD Stage III Resume Ferrous Sulfate 325 mg PO daily. HgB/Hct are stable Status: Chronic (11) Hx Left Gluteal abscess Assessment and Plan: Was I&D by surgery team on 06/26/17 Treated with Bactrim 800/160 PO Q12H for 7 days S/P discharge 06/27/17 Status: Chronic (12) HLD (hyperlipidemia) Assessment and Plan: Lopid 600 mg PO BID Patient takes Lipitor 80 mg PO HS which is not on formulary therefore Crestor 10 mg PO HS (renal dosed). Status: Chronic (13) HTN (hypertension) Assessment and Plan: As the patient's blood pressure is on the low end the following medications were placed on HOLD: Amlodipine 10 mg PO daily, Metoprolol XL 100 mg PO daily, and Losartan 100 mg PO daily are all on HOLD Patient was started on NS @ 100 ml/hour 07/15/17 Status: Chronic (14) Hx of stroke without residual deficits Assessment and Plan: CT Head 07/13/17 was negative for bleed or acute process Crestor 10 mg PO HS (renal dosed). Hold ASA as mentioned above Plavix 75 mg PO 1x/day Status: Chronic (15) Diabetes Assessment and Plan: Patient is NPO. Blood Glucose elevated at times despite NO feeding since 07/13/17 ISS Q6H Accuchecks Q6H Status: Chronic (16) History of hypothyroidism Assessment and Plan: Levothyroxine 50 mcg PO daily TSH, Free T4 are normal Status: Chronic (17) Overactive bladder Assessment and Plan: Festerodine 8 mg PO 1x/day Enlarged Prostate on CT Abdomen/Pelvis PSA ordered 07/14/17 but I do not see results. I believe he can follow this up as an outpatient. Status: Chronic (18) Hx of glaucoma Assessment and Plan: Patient's home med Travatan ggt not on formulary. Started Xalatan ggt in bilateral eyes. Status: Chronic (19) Hx of gastroesophageal reflux (GERD) Assessment and Plan: Protonix 10 mg IV daily Status: Chronic (20) Prophylactic measure Assessment and Plan: Protonix 10 mg daily SCDs Hold chemical anticoagulation for now for reasons mentioned above Ascorbic Acid 250 mg PO daily Florastor 250 mg PO 2x/day Zofran 4 mg IV Q6H PRN N/V Dilaudid 0.5 mg IV Q4H PRN Severe Pain Cyproheptadine 4 mg PO 2x/day Benzocaine/Menthol 1 love Q2H PRN sore throat Jonnathan Malin D.O. Objective - Vital Signs/Intake and Output Vital Signs (last 24 hours): Temp Pulse Resp BP Pulse Ox 97.9 F 86 22 103/47 L 94 L 07/14/17 00:30 07/16/17 07:07 07/16/17 07:07 07/16/17 07:07 07/16/17 07:07 Intake and Output: 07/16/17 07/16/17 06:59 18:59 Intake Total 800 100 Output Total 360 50 Balance 440 50 - Medications Medications: Current Medications Amlodipine Besylate (Norvasc) 10 mg PO DAILY [facility] Last Admin: 07/14/17 09:56 Dose: Not Given Ascorbic Acid (Vitamin C 250 Mg Tab) 250 mg PO DAILY [facility] Last Admin: 07/15/17 18:08 Dose: 250 mg Benzocaine/Menthol (Cepacol Sore Throat) 1 love MT Q2 PRN PRN Reason: Sore Throat Clopidogrel Bisulfate (Plavix) 75 mg PO DAILY [facility] Cyproheptadine HCl (Periactin) 4 mg PO BID [facility] Last Admin: 07/15/17 18:08 Dose: 4 mg Donepezil HCl (Aricept) 10 mg PO HS [facility] Last Admin: 07/15/17 21:10 Dose: 10 mg Ferrous Sulfate (Feosol) 325 mg PO Q12H [facility] Last Admin: 07/16/17 06:17 Dose: 325 mg Gemfibrozil (Lopid) 600 mg PO BID [facility] Last Admin: 07/15/17 18:08 Dose: 600 mg Home Med (Fesoterodine Fumarate [Toviaz]) 8 mg PO DAILY [facility] Hydromorphone HCl (Dilaudid) 0.5 mg IVP Q4 PRN PRN Reason: Pain, severe (8-10) Last Admin: 07/16/17 06:59 Dose: 0.5 mg Ciprofloxacin (Cipro 400mg/200ml Dsw) 400 mg in 200 mls @ 133 mls/hr IVPB Q12H [facility] Last Admin: 07/15/17 21:10 Dose: 133 mls/hr Vancomycin/Sodium Chloride (Vancomycin 1 Gm/Ns 200 Ml) 1 gm in 200 mls @ 133.333 mls/hr IVPB Q24H [facility] Stop: 07/19/17 11:01 Last Admin: 07/15/17 10:46 Dose: 133.333 mls/hr Meropenem 500 mg/ Dextrose 100 mls @ 100 mls/hr IVPB Q6 [facility] Last Admin: 07/16/17 05:10 Dose: 100 mls/hr Sodium Chloride (Sodium Chloride 0.9%) 1,000 mls @ 100 mls/hr IV .Q10H [facility] Last Admin: 07/16/17 03:25 Dose: 100 mls/hr Potassium Chloride (Potassium Chloride 10 Meq/100 Ml) 10 meq in 100 mls @ 100 mls/hr IVPB ONCE ONE Stop: 07/16/17 08:59 Insulin Human Regular (Novolin R) 0 unit SC Q6H [facility] PRN Reason: Protocol Last Admin: 07/16/17 06:31 Dose: 2 unit Latanoprost (Xalatan Opht) 0 ml OU HS [facility] Last Admin: 07/15/17 22:20 Dose: 2.5 ml Levothyroxine Sodium (Synthroid) 50 mcg PO DAILY@0630 [facility] Last Admin: 07/16/17 06:17 Dose: 50 mcg Meclizine HCl (Antivert) 12.5 mg PO TID [facility] Last Admin: 07/15/17 18:09 Dose: 12.5 mg Metoprolol Succinate (Toprol Xl) 100 mg PO DAILY [facility] Last Admin: 07/14/17 13:41 Dose: 100 mg Ondansetron HCl (Zofran Inj) 4 mg IVP Q6 PRN PRN Reason: Nausea/Vomiting Pantoprazole Sodium (Protonix Inj) 40 mg IVP DAILY [facility] Last Admin: 07/15/17 10:46 Dose: 40 mg Rosuvastatin Calcium (Crestor) 10 mg PO HS [facility] Last Admin: 07/15/17 21:10 Dose: 10 mg Saccharomyces Boulardii (Florastor) 250 mg PO BID [facility] Last Admin: 07/15/17 18:07 Dose: 250 mg - Labs Labs: 07/16/17 05:43 07/16/17 05:43 PT 14.3 SECONDS (9.7-12.2) H 07/16/17 04:00 INR 1.3 07/16/17 04:00 APTT 29 SECONDS (21-34) 07/13/17 20:04
[2017-07-16 08:13] LABS: EOSINOPHIL 3 % (0-4); NEUTROPHIL 77 % (50-75); REACTIVE LYMPHOCYTES 1 % (0-0); TOTAL CELLS COUNTED 100
--- NOTE | 2017-07-16 08:19 | CP.PCM.PN ---
<Dianne Salinas - Last Filed: 07/16/17 08:28> Subjective - Date & Time of Evaluation Date of Evaluation: 07/16/17 Time of Evaluation: 08:17 - Subjective Subjective: Gastroenterology Fellow/PGY5 Progress Note Patient admits to abdominal pain with imprving physical exam. Nursing notes he was more alet and wake through the night. No NG tube output overnight. Improving oxygenation and respiratory rate. No bowel movement overnight. A 12- point review of systems limited in setting of Alzheimer's Dementia. Objective - Vital Signs/Intake and Output Vital Signs (last 24 hours): Temp Pulse Resp BP Pulse Ox 97.9 F 86 22 103/47 L 94 L 07/14/17 00:30 07/16/17 07:07 07/16/17 07:07 07/16/17 07:07 07/16/17 07:07 Intake and Output: 07/16/17 07/16/17 06:59 18:59 Intake Total 800 100 Output Total 360 50 Balance 440 50 - Medications Medications: Current Medications Amlodipine Besylate (Norvasc) 10 mg PO DAILY [facility] Last Admin: 07/14/17 09:56 Dose: Not Given Ascorbic Acid (Vitamin C 250 Mg Tab) 250 mg PO DAILY [facility] Last Admin: 07/15/17 18:08 Dose: 250 mg Benzocaine/Menthol (Cepacol Sore Throat) 1 love MT Q2 PRN PRN Reason: Sore Throat Clopidogrel Bisulfate (Plavix) 75 mg PO DAILY [facility] Cyproheptadine HCl (Periactin) 4 mg PO BID [facility] Last Admin: 07/15/17 18:08 Dose: 4 mg Donepezil HCl (Aricept) 10 mg PO HS [facility] Last Admin: 07/15/17 21:10 Dose: 10 mg Ferrous Sulfate (Feosol) 325 mg PO Q12H [facility] Last Admin: 07/16/17 06:17 Dose: 325 mg Gemfibrozil (Lopid) 600 mg PO BID [facility] Last Admin: 07/15/17 18:08 Dose: 600 mg Home Med (Fesoterodine Fumarate [Toviaz]) 8 mg PO DAILY [facility] Hydromorphone HCl (Dilaudid) 0.5 mg IVP Q4 PRN PRN Reason: Pain, severe (8-10) Last Admin: 07/16/17 06:59 Dose: 0.5 mg Ciprofloxacin (Cipro 400mg/200ml Dsw) 400 mg in 200 mls @ 133 mls/hr IVPB Q12H [facility] Last Admin: 07/15/17 21:10 Dose: 133 mls/hr Vancomycin/Sodium Chloride (Vancomycin 1 Gm/Ns 200 Ml) 1 gm in 200 mls @ 133.333 mls/hr IVPB Q24H [facility] Stop: 07/19/17 11:01 Last Admin: 07/15/17 10:46 Dose: 133.333 mls/hr Meropenem 500 mg/ Dextrose 100 mls @ 100 mls/hr IVPB Q6 [facility] Last Admin: 07/16/17 05:10 Dose: 100 mls/hr Sodium Chloride (Sodium Chloride 0.9%) 1,000 mls @ 100 mls/hr IV .Q10H [facility] Last Admin: 07/16/17 03:25 Dose: 100 mls/hr Potassium Chloride (Potassium Chloride 10 Meq/100 Ml) 10 meq in 100 mls @ 100 mls/hr IVPB ONCE ONE Stop: 07/16/17 08:59 Insulin Human Regular (Novolin R) 0 unit SC Q6H [facility] PRN Reason: Protocol Last Admin: 07/16/17 06:31 Dose: 2 unit Latanoprost (Xalatan Opht) 0 ml OU HS [facility] Last Admin: 07/15/17 22:20 Dose: 2.5 ml Levothyroxine Sodium (Synthroid) 50 mcg PO DAILY@0630 [facility] Last Admin: 07/16/17 06:17 Dose: 50 mcg Meclizine HCl (Antivert) 12.5 mg PO TID [facility] Last Admin: 07/15/17 18:09 Dose: 12.5 mg Metoprolol Succinate (Toprol Xl) 100 mg PO DAILY [facility] Last Admin: 07/14/17 13:41 Dose: 100 mg Ondansetron HCl (Zofran Inj) 4 mg IVP Q6 PRN PRN Reason: Nausea/Vomiting Pantoprazole Sodium (Protonix Inj) 40 mg IVP DAILY [facility] Last Admin: 07/15/17 10:46 Dose: 40 mg Rosuvastatin Calcium (Crestor) 10 mg PO HS [facility] Last Admin: 07/15/17 21:10 Dose: 10 mg Saccharomyces Boulardii (Florastor) 250 mg PO BID [facility] Last Admin: 07/15/17 18:07 Dose: 250 mg - Labs Labs: 07/16/17 05:43 07/16/17 05:43 PT 14.3 SECONDS (9.7-12.2) H 07/16/17 04:00 INR 1.3 07/16/17 04:00 APTT 29 SECONDS (21-34) 07/13/17 20:04 - Constitutional Appears: Non-toxic, No Acute Distress - Head Exam Head Exam: ATRAUMATIC, NORMOCEPHALIC - Eye Exam Eye Exam: EOMI, PERRL Pupil Exam: PERRL. absent: Miosis, Mydriatic - ENT Exam ENT Exam: Mucous Membranes Moist, Normal Oropharynx Additional comments: right nares NGT- 0 output - Respiratory Exam Respiratory Exam: Clear to Ausculation Bilateral. absent: Rales, Rhonchi, Wheezes - Cardiovascular Exam Cardiovascular Exam: RRR, +S1, +S2. absent: Gallop, Rubs - GI/Abdominal Exam GI & Abdominal Exam: Soft, Tenderness, Normal Bowel Sounds. absent: Distended, Firm, Guarding, Rigid, Organomegaly, Rebound Additional comments: epigastric tenderness to palpation - Extremities Exam Extremities Exam: Normal Inspection. 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 History of cholangitis, K. pneumoniae bacteremia, and EUS showing impacted ampulla 10mm CBD stone s/p ERCP with CBD stent placement due to Plavix use (04/2017). Active treatment of pneumoperitoneum and liver subcapsular/extracapsular fluid collection 2/2 repeat ERCP guidewire perforation of biliary tree or liver subcapsule/ extrahepatic CBD pneumobilia. Plan: >obtain abdominal flat plate >IR- fluid collection not amenable to drain placement >surgery managing- appreciate recommendations >continue antibiotics >NPO, no NGT output overnight >discuss possible initiation enteral nutrition based on repeat imaging >close monitoring of clinical course <Gabriel Chang - Last Filed: 07/16/17 15:14> Objective - Vital Signs/Intake and Output Vital Signs (last 24 hours): Temp Pulse Resp BP Pulse Ox 98.5 F 90 20 94/36 L 98 07/16/17 12:00 07/16/17 14:00 07/16/17 14:00 07/16/17 13:08 07/16/17 14:00 Intake and Output: 07/16/17 07/16/17 06:59 18:59 Intake Total 800 1200 Output Total 360 510 Balance 440 690 - Medications Medications: Current Medications Amlodipine Besylate (Norvasc) 10 mg PO DAILY [facility] Last Admin: 07/14/17 09:56 Dose: Not Given Ascorbic Acid (Vitamin C 250 Mg Tab) 250 mg PO DAILY [facility] Last Admin: 07/16/17 09:38 Dose: 250 mg Benzocaine/Menthol (Cepacol Sore Throat) 1 love MT Q2 PRN PRN Reason: Sore Throat Clopidogrel Bisulfate (Plavix) 75 mg PO DAILY [facility] Cyproheptadine HCl (Periactin) 4 mg PO BID [facility] Last Admin: 07/16/17 09:37 Dose: 4 mg Donepezil HCl (Aricept) 10 mg PO HS [facility] Last Admin: 07/15/17 21:10 Dose: 10 mg Ferrous Sulfate (Feosol) 325 mg PO Q12H [facility] Last Admin: 07/16/17 06:17 Dose: 325 mg Gemfibrozil (Lopid) 600 mg PO BID [facility] Last Admin: 07/16/17 09:37 Dose: 600 mg Home Med (Fesoterodine Fumarate [Toviaz]) 8 mg PO DAILY [facility] Hydromorphone HCl (Dilaudid) 0.5 mg IVP Q4 PRN PRN Reason: Pain, severe (8-10) Last Admin: 07/16/17 11:24 Dose: 0.5 mg Ciprofloxacin (Cipro 400mg/200ml Dsw) 400 mg in 200 mls @ 133 mls/hr IVPB Q12H [facility] Last Admin: 07/16/17 08:27 Dose: 133 mls/hr Vancomycin/Sodium Chloride (Vancomycin 1 Gm/Ns 200 Ml) 1 gm in 200 mls @ 133.333 mls/hr IVPB Q24H [facility] Stop: 07/19/17 11:01 Last Admin: 07/16/17 10:12 Dose: 133.333 mls/hr Meropenem 500 mg/ Dextrose 100 mls @ 100 mls/hr IVPB Q6 [facility] Last Admin: 07/16/17 11:21 Dose: 100 mls/hr Sodium Chloride (Sodium Chloride 0.9%) 1,000 mls @ 100 mls/hr IV .Q10H [facility] Last Admin: 07/16/17 03:25 Dose: 100 mls/hr Insulin Human Regular (Novolin R) 0 unit SC Q6H [facility] PRN Reason: Protocol Last Admin: 07/16/17 12:25 Dose: 2 unit Latanoprost (Xalatan Opht) 0 ml OU HS [facility] Last Admin: 07/15/17 22:20 Dose: 2.5 ml Levothyroxine Sodium (Synthroid) 50 mcg PO DAILY@0630 [facility] Last Admin: 07/16/17 06:17 Dose: 50 mcg Meclizine HCl (Antivert) 12.5 mg PO TID [facility] Last Admin: 07/16/17 09:37 Dose: 12.5 mg Metoprolol Succinate (Toprol Xl) 100 mg PO DAILY [facility] Last Admin: 07/14/17 13:41 Dose: 100 mg Ondansetron HCl (Zofran Inj) 4 mg IVP Q6 PRN PRN Reason: Nausea/Vomiting Pantoprazole Sodium (Protonix Inj) 40 mg IVP DAILY [facility] Last Admin: 07/16/17 09:32 Dose: 40 mg Rosuvastatin Calcium (Crestor) 10 mg PO HS [facility] Last Admin: 07/15/17 21:10 Dose: 10 mg Saccharomyces Boulardii (Florastor) 250 mg PO BID [facility] Last Admin: 07/16/17 09:37 Dose: 250 mg - Labs Labs: 07/16/17 05:43 07/16/17 05:43 PT 14.3 SECONDS (9.7-12.2) H 07/16/17 04:00 INR 1.3 07/16/17 04:00 APTT 29 SECONDS (21-34) 07/13/17 20:04 Attending/Attestation - Attestation I have personally seen and examined this patient.: Yes I have fully participated in the care of the patient.: Yes I have reviewed all pertinent clinical information, including history, physical exam and plan: Yes Notes (Text): 07/16/17 15:10 I have seen and examined patient with GI fellow. No acute events overnight, he is more alert and oriented as compared to prior. He continues to endorse abdominal pain, though no reported bowel movements. Minimal NGT output overnight. DM / HTN CKD Dementia CVA s/p ERCP for biliary stent removal, complicated by development of pneumoperitoneum, hepatic subcapsular fluid collection - possible guidewire related perforation - Abdominal US reviewed by me showing small fluid collection not amenable to drain placement - Continue with antibiotic therapy - Can likely discontinue NGT given minimal output, initiate trial of PO clear liquids - Follow up surgical recommendations - LFTs normal, continue to monitor - Will continue to monitor patient clinical course
[2017-07-16] MEDS: Ciprofloxacin 400mg/200ml D5W 400 MG/200 ML BAG IVPB SCH ×2 (08:27→20:43)
[2017-07-16] MEDS: Saccharomyces Boulardi 250 mg Cap PO SCH ×2 (09:37→18:36)
--- NOTE | 2017-07-16 09:50 | CP.PCM.PN ---
<RodolfolinnBuzz mancia - Last Filed: 07/16/17 09:54> Subjective - Date & Time of Evaluation Date of Evaluation: 07/16/17 Time of Evaluation: 09:47 - Subjective Subjective: Surgery: Dr. Boyce Pt seen and examined. Per nursing, overnight pt was having complaints of increased abd pain. Pt had no N/V. No BM. Objective - Vital Signs/Intake and Output Vital Signs (last 24 hours): Temp Pulse Resp BP Pulse Ox 100.0 F H 92 H 21 118/42 L 97 07/16/17 08:00 07/16/17 09:00 07/16/17 09:00 07/16/17 09:07 07/16/17 09:00 Intake and Output: 07/16/17 07/16/17 06:59 18:59 Intake Total 800 500 Output Total 360 165 Balance 440 335 - Medications Medications: Current Medications Amlodipine Besylate (Norvasc) 10 mg PO DAILY [facility] Last Admin: 07/14/17 09:56 Dose: Not Given Ascorbic Acid (Vitamin C 250 Mg Tab) 250 mg PO DAILY [facility] Last Admin: 07/16/17 09:38 Dose: 250 mg Benzocaine/Menthol (Cepacol Sore Throat) 1 love MT Q2 PRN PRN Reason: Sore Throat Clopidogrel Bisulfate (Plavix) 75 mg PO DAILY [facility] Cyproheptadine HCl (Periactin) 4 mg PO BID [facility] Last Admin: 07/16/17 09:37 Dose: 4 mg Donepezil HCl (Aricept) 10 mg PO HS [facility] Last Admin: 07/15/17 21:10 Dose: 10 mg Ferrous Sulfate (Feosol) 325 mg PO Q12H [facility] Last Admin: 07/16/17 06:17 Dose: 325 mg Gemfibrozil (Lopid) 600 mg PO BID [facility] Last Admin: 07/16/17 09:37 Dose: 600 mg Home Med (Fesoterodine Fumarate [Toviaz]) 8 mg PO DAILY [facility] Hydromorphone HCl (Dilaudid) 0.5 mg IVP Q4 PRN PRN Reason: Pain, severe (8-10) Last Admin: 07/16/17 06:59 Dose: 0.5 mg Ciprofloxacin (Cipro 400mg/200ml Dsw) 400 mg in 200 mls @ 133 mls/hr IVPB Q12H [facility] Last Admin: 07/16/17 08:27 Dose: 133 mls/hr Vancomycin/Sodium Chloride (Vancomycin 1 Gm/Ns 200 Ml) 1 gm in 200 mls @ 133.333 mls/hr IVPB Q24H [facility] Stop: 07/19/17 11:01 Last Admin: 07/15/17 10:46 Dose: 133.333 mls/hr Meropenem 500 mg/ Dextrose 100 mls @ 100 mls/hr IVPB Q6 [facility] Last Admin: 07/16/17 05:10 Dose: 100 mls/hr Sodium Chloride (Sodium Chloride 0.9%) 1,000 mls @ 100 mls/hr IV .Q10H [facility] Last Admin: 07/16/17 03:25 Dose: 100 mls/hr Insulin Human Regular (Novolin R) 0 unit SC Q6H [facility] PRN Reason: Protocol Last Admin: 07/16/17 06:31 Dose: 2 unit Latanoprost (Xalatan Opht) 0 ml OU HS [facility] Last Admin: 07/15/17 22:20 Dose: 2.5 ml Levothyroxine Sodium (Synthroid) 50 mcg PO DAILY@0630 [facility] Last Admin: 07/16/17 06:17 Dose: 50 mcg Meclizine HCl (Antivert) 12.5 mg PO TID [facility] Last Admin: 07/16/17 09:37 Dose: 12.5 mg Metoprolol Succinate (Toprol Xl) 100 mg PO DAILY [facility] Last Admin: 07/14/17 13:41 Dose: 100 mg Ondansetron HCl (Zofran Inj) 4 mg IVP Q6 PRN PRN Reason: Nausea/Vomiting Pantoprazole Sodium (Protonix Inj) 40 mg IVP DAILY [facility] Last Admin: 07/16/17 09:32 Dose: 40 mg Rosuvastatin Calcium (Crestor) 10 mg PO HS [facility] Last Admin: 07/15/17 21:10 Dose: 10 mg Saccharomyces Boulardii (Florastor) 250 mg PO BID [facility] Last Admin: 07/16/17 09:37 Dose: 250 mg - Labs Labs: 07/16/17 05:43 07/16/17 05:43 PT 14.3 SECONDS (9.7-12.2) H 07/16/17 04:00 INR 1.3 07/16/17 04:00 APTT 29 SECONDS (21-34) 07/13/17 20:04 - Constitutional Appears: Non-toxic, Other (uncomfortable) - Head Exam Head Exam: ATRAUMATIC, NORMOCEPHALIC - Eye Exam Eye Exam: EOMI. absent: Scleral icterus - ENT Exam ENT Exam: Mucous Membranes Moist - Neck Exam Neck Exam: Full ROM - Respiratory Exam Respiratory Exam: NORMAL BREATHING PATTERN. absent: Accessory Muscle Use, Respiratory Distress - Cardiovascular Exam Cardiovascular Exam: +S1, +S2 - GI/Abdominal Exam GI & Abdominal Exam: Distended, Soft, Tenderness. absent: Bruit, Firm, Guarding , Rigid - Extremities Exam Extremities Exam: absent: Calf Tenderness, Pedal Edema - Neurological Exam Neurological Exam: Alert, Awake Assessment and Plan - Assessment and Plan (Free Text) Assessment: 82M s/p ERCP w. subcapsular/extracapsular air -CT: No signs of bowel perforation -NGT: 0cc/12hr will clamp -Keep NPO -AXR reviewed, f/u official read -wbc trending down, c/w abx -increased abd pain: serial abd exams, will follow closely -no plans for surgery at this time -d/w attending [facility] PGY3 <Manohar Boyce B - Last Filed: 07/19/17 16:00> Objective - Vital Signs/Intake and Output Vital Signs (last 24 hours): Temp Pulse Resp BP Pulse Ox 97.9 F 81 39 H 105/45 L 100 07/19/17 12:00 07/19/17 14:26 07/19/17 14:26 07/19/17 14:26 07/19/17 14:26 Intake and Output: 07/19/17 07/19/17 06:59 18:59 Intake Total 566.7 Output Total 625 Balance -58.3 - Medications Medications: Current Medications Ascorbic Acid (Vitamin C 250 Mg Tab) 250 mg PO DAILY [facility] Last Admin: 07/19/17 09:17 Dose: 250 mg Benzocaine/Menthol (Cepacol Sore Throat) 1 love MT Q2 PRN PRN Reason: Sore Throat Last Admin: 07/17/17 20:25 Dose: 1 love Calcium Acetate (Phoslo) 667 mg PO TID [facility] Last Admin: 07/19/17 13:59 Dose: 667 mg Clopidogrel Bisulfate (Plavix) 75 mg PO DAILY [facility] Cyproheptadine HCl (Periactin) 4 mg PO BID [facility] Last Admin: 07/19/17 09:17 Dose: 4 mg Donepezil HCl (Aricept) 10 mg PO HS [facility] Last Admin: 07/18/17 21:19 Dose: 10 mg Ferrous Sulfate (Feosol) 325 mg PO Q12H [facility] Last Admin: 07/19/17 06:04 Dose: 325 mg Gemfibrozil (Lopid) 600 mg PO BID [facility] Last Admin: 07/19/17 09:17 Dose: 600 mg Home Med (Fesoterodine Fumarate [Toviaz]) 8 mg PO DAILY [facility] Tigecycline 50 mg/ Dextrose 100 mls @ 100 mls/hr IVPB Q12H [facility] Last Admin: 07/19/17 12:23 Dose: 100 mls/hr Metronidazole 250 mg/ (Miscellaneous) 50 mls @ 100 mls/hr IVPB Q8 [facility] Last Admin: 07/19/17 13:59 Dose: 100 mls/hr Insulin Human Regular (Novolin R) 0 unit SC [facility] PRN Reason: Protocol Last Admin: 07/19/17 12:25 Dose: 5 unit Latanoprost (Xalatan Opht) 0 ml OU HS [facility] Last Admin: 07/18/17 21:19 Dose: 2.5 ml Levothyroxine Sodium (Synthroid) 50 mcg PO DAILY@0630 [facility] Last Admin: 07/19/17 06:04 Dose: 50 mcg Meclizine HCl (Antivert) 12.5 mg PO TID [facility] Last Admin: 07/19/17 13:59 Dose: 12.5 mg Metoprolol Succinate (Toprol Xl) 100 mg PO DAILY [facility] Last Admin: 07/14/17 13:41 Dose: 100 mg Morphine Sulfate (Morphine) 0.5 mg IVP Q6H PRN PRN Reason: Pain, severe (8-10) Last Admin: 07/19/17 13:10 Dose: 0.5 mg Ondansetron HCl (Zofran Inj) 4 mg IVP Q6 PRN PRN Reason: Nausea/Vomiting Pantoprazole Sodium (Protonix Inj) 40 mg IVP DAILY [facility] Last Admin: 07/19/17 09:16 Dose: 40 mg Rosuvastatin Calcium (Crestor) 10 mg PO [facility] Last Admin: 07/18/17 21:19 Dose: 10 mg Saccharomyces Boulardii (Florastor) 250 mg PO BID [facility] Last Admin: 07/19/17 09:18 Dose: 250 mg - Labs Labs: 07/19/17 06:45 07/19/17 06:45 PT 14.3 SECONDS (9.7-12.2) H 07/16/17 04:00 INR 1.3 07/16/17 04:00 APTT 29 SECONDS (21-34) 07/13/17 20:04 Attending/Attestation - Attestation I have personally seen and examined this patient.: Yes I have fully participated in the care of the patient.: Yes I have reviewed all pertinent clinical information, including history, physical exam and plan: Yes Notes (Text): Pt was seen and examined at bedside Agree with above note and assessment Pt is improving clinically C/w IV antibiotics Advance diet as tolerated C/w current mx Plan d.w pt in detail
--- NOTE | 2017-07-16 09:59 | CP.PCM.PN ---
Subjective - Date & Time of Evaluation Date of Evaluation: 07/16/17 Time of Evaluation: 09:57 - Subjective Subjective: Alert. UO- 800ml/24 hrs Creat remains stable- 2.3 mg% K repleted Maintained on IV fluids GI unable to drain abdominal fluids- not seen on US No plans for surgical intervention noted No CPs, fevers, chills, dysuria Objective - Vital Signs/Intake and Output Vital Signs (last 24 hours): Temp Pulse Resp BP Pulse Ox 100.0 F H 92 H 21 118/42 L 97 07/16/17 08:00 07/16/17 09:00 07/16/17 09:00 07/16/17 09:07 07/16/17 09:00 Intake and Output: 07/16/17 07/16/17 06:59 18:59 Intake Total 800 500 Output Total 360 165 Balance 440 335 - Medications Medications: Current Medications Amlodipine Besylate (Norvasc) 10 mg PO DAILY [facility] Last Admin: 07/14/17 09:56 Dose: Not Given Ascorbic Acid (Vitamin C 250 Mg Tab) 250 mg PO DAILY [facility] Last Admin: 07/16/17 09:38 Dose: 250 mg Benzocaine/Menthol (Cepacol Sore Throat) 1 love MT Q2 PRN PRN Reason: Sore Throat Clopidogrel Bisulfate (Plavix) 75 mg PO DAILY [facility] Cyproheptadine HCl (Periactin) 4 mg PO BID [facility] Last Admin: 07/16/17 09:37 Dose: 4 mg Donepezil HCl (Aricept) 10 mg PO HS [facility] Last Admin: 07/15/17 21:10 Dose: 10 mg Ferrous Sulfate (Feosol) 325 mg PO Q12H [facility] Last Admin: 07/16/17 06:17 Dose: 325 mg Gemfibrozil (Lopid) 600 mg PO BID [facility] Last Admin: 07/16/17 09:37 Dose: 600 mg Home Med (Fesoterodine Fumarate [Toviaz]) 8 mg PO DAILY [facility] Hydromorphone HCl (Dilaudid) 0.5 mg IVP Q4 PRN PRN Reason: Pain, severe (8-10) Last Admin: 07/16/17 06:59 Dose: 0.5 mg Ciprofloxacin (Cipro 400mg/200ml Dsw) 400 mg in 200 mls @ 133 mls/hr IVPB Q12H [facility] Last Admin: 07/16/17 08:27 Dose: 133 mls/hr Vancomycin/Sodium Chloride (Vancomycin 1 Gm/Ns 200 Ml) 1 gm in 200 mls @ 133.333 mls/hr IVPB Q24H [facility] Stop: 07/19/17 11:01 Last Admin: 07/15/17 10:46 Dose: 133.333 mls/hr Meropenem 500 mg/ Dextrose 100 mls @ 100 mls/hr IVPB Q6 [facility] Last Admin: 07/16/17 05:10 Dose: 100 mls/hr Sodium Chloride (Sodium Chloride 0.9%) 1,000 mls @ 100 mls/hr IV .Q10H [facility] Last Admin: 07/16/17 03:25 Dose: 100 mls/hr Insulin Human Regular (Novolin R) 0 unit SC Q6H [facility] PRN Reason: Protocol Last Admin: 07/16/17 06:31 Dose: 2 unit Latanoprost (Xalatan Opht) 0 ml OU HS [facility] Last Admin: 07/15/17 22:20 Dose: 2.5 ml Levothyroxine Sodium (Synthroid) 50 mcg PO DAILY@0630 [facility] Last Admin: 07/16/17 06:17 Dose: 50 mcg Meclizine HCl (Antivert) 12.5 mg PO TID [facility] Last Admin: 07/16/17 09:37 Dose: 12.5 mg Metoprolol Succinate (Toprol Xl) 100 mg PO DAILY [facility] Last Admin: 07/14/17 13:41 Dose: 100 mg Ondansetron HCl (Zofran Inj) 4 mg IVP Q6 PRN PRN Reason: Nausea/Vomiting Pantoprazole Sodium (Protonix Inj) 40 mg IVP DAILY [facility] Last Admin: 07/16/17 09:32 Dose: 40 mg Rosuvastatin Calcium (Crestor) 10 mg PO HS [facility] Last Admin: 07/15/17 21:10 Dose: 10 mg Saccharomyces Boulardii (Florastor) 250 mg PO BID [facility] Last Admin: 07/16/17 09:37 Dose: 250 mg - Labs Labs: 07/16/17 05:43 07/16/17 05:43 PT 14.3 SECONDS (9.7-12.2) H 07/16/17 04:00 INR 1.3 07/16/17 04:00 APTT 29 SECONDS (21-34) 07/13/17 20:04 - Constitutional Appears: No Acute Distress, Chronically Ill - Head Exam Head Exam: ATRAUMATIC, NORMAL INSPECTION - Eye Exam Eye Exam: EOMI, Normal appearance - Respiratory Exam Respiratory Exam: Clear to Ausculation Bilateral, NORMAL BREATHING PATTERN - Cardiovascular Exam Cardiovascular Exam: REGULAR RHYTHM, +S1 - GI/Abdominal Exam GI & Abdominal Exam: Soft. absent: Tenderness - Extremities Exam Extremities Exam: Normal Inspection. absent: Tenderness - Neurological Exam Neurological Exam: Alert, CN II-XII Intact - Skin Skin Exam: Dry, Warm Assessment and Plan (1) Hx of stroke without residual deficits Status: Acute (2) History of hypertension Status: Chronic (3) JAY JAY (acute kidney injury) Status: Acute (4) Type 2 diabetes mellitus with diabetic nephropathy Status: Acute (5) Chronic kidney disease, stage III (moderate) Status: Acute (6) Proteinuria Status: Acute - Assessment and Plan (Free Text) Plan: Continue IV saline; renal function stabilizing Possible TPN if patient remains NPO Monitor usman
[2017-07-16] MEDS: Vancomycin 1 gm/NS 200 ml 1 GM/200 ML BAG IVPB SCH (10:12)
--- NOTE | 2017-07-16 15:41 | RAD ---
HISTORY: evaluate pneumoperitoneum COMPARISON: Correlation is made with the portable semi-erect study 07/15/2017 at 0740 hours. Current portable abdomen is on 07/16/2017 at 0848 hours. FINDINGS: BOWEL: Contrast is seen throughout the colon. An NG tube is seen in the stomach. No dilated small large bowel loops noted. BONES: Normal. OTHER FINDINGS: Right upper quadrant cholecystectomy clips IMPRESSION: Colonic contrast. No mechanical obstruction suggested. To evaluate for any potential free air, would recommend an upright chest x-ray.
--- NOTE | 2017-07-16 17:31 | CARD ---
APPROVED REPORT EKG Measurement Heart [id number] CO 150P35 [id number] <Conclusion> Sinus rhythm with frequent premature ventricular complexes Left axis deviation Prolonged QT Abnormal ECG
--- NOTE | 2017-07-16 17:37 | CARD ---
APPROVED REPORT EKG Measurement Heart [id number] OR 172P20 [id number] <Conclusion> Sinus rhythm with occasional premature ventricular complexes Left axis deviation Nonspecific ST and T wave abnormality Abnormal ECG
[2017-07-16] MEDS ORDERED: Magnesium Sulfate 1 gm in D5W 1 GM/100 ML BAG IVPB ONE (18:00)
--- NOTE | 2017-07-16 18:29 | CP.PCM.PN ---
Subjective - Date & Time of Evaluation Date of Evaluation: 07/16/17 Time of Evaluation: 08:00 - Subjective Subjective: wbc trending down alert c/o chest pain Objective - Vital Signs/Intake and Output Vital Signs (last 24 hours): Temp Pulse Resp BP Pulse Ox 98.4 F 157 H 33 H 100/58 L 92 L 07/16/17 16:00 07/16/17 17:57 07/16/17 17:57 07/16/17 17:57 07/16/17 17:57 Intake and Output: 07/16/17 07/16/17 06:59 18:59 Intake Total 800 1500 Output Total 360 640 Balance 440 860 - Medications Medications: Current Medications Amlodipine Besylate (Norvasc) 10 mg PO DAILY [facility] Last Admin: 07/14/17 09:56 Dose: Not Given Ascorbic Acid (Vitamin C 250 Mg Tab) 250 mg PO DAILY [facility] Last Admin: 07/16/17 09:38 Dose: 250 mg Benzocaine/Menthol (Cepacol Sore Throat) 1 love MT Q2 PRN PRN Reason: Sore Throat Clopidogrel Bisulfate (Plavix) 75 mg PO DAILY [facility] Cyproheptadine HCl (Periactin) 4 mg PO BID [facility] Last Admin: 07/16/17 09:37 Dose: 4 mg Donepezil HCl (Aricept) 10 mg PO HS [facility] Last Admin: 07/15/17 21:10 Dose: 10 mg Ferrous Sulfate (Feosol) 325 mg PO Q12H [facility] Last Admin: 07/16/17 06:17 Dose: 325 mg Gemfibrozil (Lopid) 600 mg PO BID [facility] Last Admin: 07/16/17 09:37 Dose: 600 mg Home Med (Fesoterodine Fumarate [Toviaz]) 8 mg PO DAILY [facility] Hydromorphone HCl (Dilaudid) 0.5 mg IVP Q4 PRN PRN Reason: Pain, severe (8-10) Last Admin: 07/16/17 16:05 Dose: 0.5 mg Ciprofloxacin (Cipro 400mg/200ml Dsw) 400 mg in 200 mls @ 133 mls/hr IVPB Q12H [facility] Last Admin: 07/16/17 08:27 Dose: 133 mls/hr Vancomycin/Sodium Chloride (Vancomycin 1 Gm/Ns 200 Ml) 1 gm in 200 mls @ 133.333 mls/hr IVPB Q24H [facility] Stop: 07/19/17 11:01 Last Admin: 07/16/17 10:12 Dose: 133.333 mls/hr Meropenem 500 mg/ Dextrose 100 mls @ 100 mls/hr IVPB Q6 [facility] Last Admin: 07/16/17 17:26 Dose: 100 mls/hr Sodium Chloride (Sodium Chloride 0.9%) 1,000 mls @ 100 mls/hr IV .Q10H [facility] Last Admin: 07/16/17 17:26 Dose: 100 mls/hr Magnesium Sulfate/Dextrose (Magnesium Sulfate 1 Gm/100 Ml D5w) 1 gm in 100 mls @ 200 mls/hr IVPB ONCE ONE Stop: 07/16/17 18:29 Last Admin: 07/16/17 17:53 Dose: 200 mls/hr Insulin Human Regular (Novolin R) 0 unit SC Q6H [facility] PRN Reason: Protocol Last Admin: 07/16/17 17:57 Dose: 1 unit Latanoprost (Xalatan Opht) 0 ml OU HS [facility] Last Admin: 07/15/17 22:20 Dose: 2.5 ml Levothyroxine Sodium (Synthroid) 50 mcg PO DAILY@0630 [facility] Last Admin: 07/16/17 06:17 Dose: 50 mcg Meclizine HCl (Antivert) 12.5 mg PO TID [facility] Last Admin: 07/16/17 15:42 Dose: 12.5 mg Metoprolol Succinate (Toprol Xl) 100 mg PO DAILY [facility] Last Admin: 07/14/17 13:41 Dose: 100 mg Ondansetron HCl (Zofran Inj) 4 mg IVP Q6 PRN PRN Reason: Nausea/Vomiting Pantoprazole Sodium (Protonix Inj) 40 mg IVP DAILY [facility] Last Admin: 07/16/17 09:32 Dose: 40 mg Rosuvastatin Calcium (Crestor) 10 mg PO HS [facility] Last Admin: 07/15/17 21:10 Dose: 10 mg Saccharomyces Boulardii (Florastor) 250 mg PO BID [facility] Last Admin: 07/16/17 09:37 Dose: 250 mg - Labs Labs: 07/16/17 05:43 07/16/17 05:43 PT 14.3 SECONDS (9.7-12.2) H 07/16/17 04:00 INR 1.3 07/16/17 04:00 APTT 29 SECONDS (21-34) 07/13/17 20:04 - Constitutional Appears: Non-toxic, Chronically Ill - Head Exam Head Exam: NORMOCEPHALIC - Eye Exam Eye Exam: PERRL - ENT Exam ENT Exam: Mucous Membranes Dry - Neck Exam Neck Exam: absent: Lymphadenopathy - Respiratory Exam Respiratory Exam: Decreased Breath Sounds, Rhonchi - Cardiovascular Exam Cardiovascular Exam: REGULAR RHYTHM - GI/Abdominal Exam GI & Abdominal Exam: Distended, Soft - Rectal Exam Rectal Exam: Deferred - Exam Exam: NORMAL INSPECTION Assessment and Plan - Assessment and Plan (Free Text) Assessment: s/p ERCP guidewire perforation of hepatic/biliary parenchyma, subtype C ( complicated by subcapsular hematoma/biloma) cont iv rx
[2017-07-16 19:13] LABS: ESTIM. PROBABILITY CANCER >50 Percent; TOTAL PSA 23.3 ng/mL (<=4.0)
--- NOTE | 2017-07-16 19:34 | CP.CCUPN ---
<TorieEffie L. - Last Filed: 07/16/17 19:41> CCU Subjective - Physician Review Subjective (Free Text): Patient seen and examined at bedside. Patient says he is having worse upper abdominal pain. Patient says his pain is all over his abdomen and worse than yesterday. When asked if the patient could rate the pain on a scale of 1-10, he says "I don't know." Patient denies chest pain, shortness of breath, abdominal pain, nausea, vomiting, constipation or diarrhea. CCU Objective - Vital Signs / Intake & Output Vital Signs (Last 4 hours): Vital Signs Temp Pulse Resp BP Pulse Ox 07/16/17 18:08 95/53 L 07/16/17 18:00 157 H 33 H 92 L 07/16/17 17:57 157 H 33 H 100/58 L 92 L 07/16/17 17:38 136 H 35 H 111/64 96 07/16/17 17:08 98 H 26 H 124/57 L 94 L 07/16/17 17:00 98 H 24 93 L 07/16/17 16:30 98 H 24 96 07/16/17 16:07 117/61 07/16/17 16:00 98.4 F 96 H 30 H 95 07/16/17 15:30 96 H 29 H 94 L Intake and Output (Last 8hrs): Intake & Output 07/16/17 07/16/17 07/16/17 06:59 14:59 22:59 Intake Total 400 1100 400 Output Total 260 470 170 Balance 140 630 230 Intake: Intake, IV Amount 400 1100 400 Right Distal Port 0 Right Distal Port 200 Internal Jugular Right Medial Port 0 Right Proximal Port 0 Right Proximal Port 400 900 400 Internal Jugular Oral 0 Output: Gastric Amount 20 Right Nares 20 Urine 240 470 170 Urethral ([place]) 240 470 170 Other: # Bowel Movements 0 - Physical Exam Head: Positive for: Atraumatic, Normocephalic Pupils: Positive for: PERRL Extroacular Muscles: Positive for: EOMI Mouth: Positive for: Dry Respiratory/Chest: Positive for: Rhonchi. Negative for: Respiratory Distress, Accessory Muscle Use Cardiovascular: Positive for: Normal S1, S2 Abdomen: Positive for: Tenderness, Distention Lower Extremity: Negative for: Edema Neurological: Positive for: GCS=15 Skin: Positive for: Warm, Normal Color Psychiatric: Positive for: Alert. Negative for: Oriented x 3 - Medications Active Medications: Active Medications Generic Name Dose Route Start Last Admin Trade Name Freq PRN Reason Stop Dose Admin Amlodipine Besylate 10 mg 07/14/17 10:00 07/14/17 09:56 Norvasc PO Not Given DAILY [facility] Ascorbic Acid 250 mg 07/14/17 10:00 07/16/17 09:38 Vitamin C 250 Mg Tab PO 250 mg DAILY DARINEL Administration Benzocaine/Menthol 1 love 07/14/17 04:24 Cepacol Sore Throat MT Q2 PRN Sore Throat Clopidogrel Bisulfate 75 mg 07/14/17 10:00 Plavix PO DAILY [facility] Cyproheptadine HCl 4 mg 07/14/17 10:00 07/16/17 18:36 Periactin PO Not Given BID [facility] Donepezil HCl 10 mg 07/13/17 22:00 07/15/17 21:10 Aricept PO 10 mg HS DARINEL Administration Ferrous Sulfate 325 mg 07/13/17 18:45 07/16/17 18:36 Feosol PO Not Given Q12H [facility] Gemfibrozil 600 mg 07/14/17 10:00 07/16/17 18:36 Lopid PO Not Given BID [facility] Home Med 8 mg 07/14/17 10:00 Fesoterodine Fumarate [Toviaz] PO DAILY [facility] Hydromorphone HCl 0.5 mg 07/15/17 11:15 07/16/17 16:05 Dilaudid IVP 0.5 mg Q4 PRN Administration Pain, severe (8-10) Ciprofloxacin 400 mg in 200 mls @ 133 mls/hr 07/14/17 09:00 07/16/17 08:27 Cipro 400mg/200ml Dsw IVPB 133 mls/hr Q12H DARINEL Administration Vancomycin/Sodium Chloride 1 gm in 200 mls @ 133.333 mls/hr 07/14/17 11:00 10:12 Vancomycin 1 Gm/Ns 200 Ml IVPB 07/19/17 11:01 133.333 mls/hr Q24H DARINEL Administration Meropenem 500 mg/ Dextrose 100 mls @ 100 mls/hr 07/14/17 13:00 07/16/17 17:26 IVPB 100 mls/hr Q6 DARINEL Administration Sodium Chloride 1,000 mls @ 100 mls/hr 07/15/17 09:00 07/16/17 17:26 Sodium Chloride 0.9% IV 100 mls/hr .Q10H DARINEL Administration Insulin Human Regular 0 unit 07/15/17 12:00 07/16/17 17:57 Novolin R SC 1 unit Q6H DARINEL Administration Protocol Latanoprost 0 ml 07/13/17 22:00 07/15/17 22:20 Xalatan Opht OU 2.5 ml HS DARINEL Administration Levothyroxine Sodium 50 mcg 07/14/17 06:30 07/16/17 06:17 Synthroid PO 50 mcg DAILY@0630 DARINEL Administration Meclizine HCl 12.5 mg 07/14/17 10:00 07/16/17 18:36 Antivert PO Not Given TID DARINEL Metoprolol Succinate 100 mg 07/13/17 21:59 07/14/17 13:41 Toprol Xl PO 100 mg DAILY DARINEL Administration Ondansetron HCl 4 mg 07/14/17 00:38 Zofran Inj IVP Q6 PRN Nausea/Vomiting Pantoprazole Sodium 40 mg 07/14/17 10:00 07/16/17 09:32 Protonix Inj IVP 40 mg DAILY DARINEL Administration Rosuvastatin Calcium 10 mg 07/13/17 22:00 07/15/17 21:10 Crestor PO 10 mg HS DARINEL Administration Saccharomyces Boulardii 250 mg 07/14/17 10:00 07/16/17 18:36 Florastor PO Not Given BID DARINEL - Patient Studies Lab Studies: Microbiology Studies 07/14/17 08:50 Urine Culture - Final Urine,Clean Catch No Growth (<1,000 CFU/ML) 07/14/17 01:40 MRSA Culture (Admit) - Final Naris MRSA NOT DETECTED 07/14/17 08:50 S.aureus & Coag-Neg Staph PNA FISH - Final Blood-Venous Gram Stain - Final Lab Studies 07/16/17 07/16/17 07/16/17 Range/Units 17:45 11:28 06:29 WBC (4.8-10.8) K/uL RBC (4.40-5.90) Mil/uL Hgb (12.0-18.0) g/dL Hct (35.0-51.0) % MCV (80.0-94.0) fL MCH (27.0-31.0) pg MCHC (33.0-37.0) g/dL RDW (11.5-14.5) % Plt Count (130-400) K/uL MPV (7.2-11.7) fL Neut % (Auto) (50.0-75.0) % Lymph % (Auto) (20.0-40.0) % [place] % (Auto) (0.0-10.0) % Eos % (Auto) (0.0-4.0) % Baso % (Auto) (0.0-2.0) % Neut # (1.8-7.0) K/uL Lymph # (1.0-4.3) K/uL [place] # (0.0-0.8) K/uL Eos # (0.0-0.7) K/uL Baso # (0.0-0.2) K/uL Neutrophils % (Manual) (50-75) % Band Neutrophils % (0-2) % Lymphocytes % (Manual) (20-40) % Reactive Lymphs % (0-0) % Monocytes % (Manual) (0-10) % Eosinophils % (Manual) (0-4) % Toxic Granulation Dohle Bodies Platelet Estimate (NORMAL) RBC Morphology PT (9.7-12.2) SECONDS INR Sodium (132-148) mmol/L Potassium (3.6-5.2) mmol/L Chloride (98-107) mmol/L Carbon Dioxide (22-30) mmol/L Anion Gap (10-20) BUN (9-20) mg/dL Creatinine (0.8-1.5) mg/dL Est GFR ( Amer) Est GFR (Non-Af Amer) POC Glucose (mg/dL) 175 H 211 H (65-110) mg/dL Random Glucose (75-110) mg/dL Calcium (8.6-10.4) mg/dl Phosphorus (2.5-4.5) mg/dL Magnesium (1.6-2.3) mg/dL Total Bilirubin (0.2-1.3) mg/dL AST (17-59) U/L ALT (21-72) U/L Alkaline Phosphatase (38-126) U/L Total Creatine Kinase 81 (55-170) U/L CK-MB (Mass) 0.80 (0.0-3.38) ng/mL Troponin I, Quant 0.0320 (0.00-0.120) ng/mL Total Protein (6.3-8.3) g/dL Albumin (3.5-5.0) g/dL Globulin (2.2-3.9) gm/dL Albumin/Globulin Ratio (1.0-2.1) Free PSA ng/mL % Free PSA (>25) Percent Total PSA (<=4.0) ng/mL Prostate Cancer Risk Percent Mycoplasma pneumon IgM (<770) U/mL 07/16/17 07/16/17 07/16/17 Range/Units 06:20 05:43 05:43 WBC 12.3 H (4.8-10.8) K/uL RBC 3.25 L (4.40-5.90) Mil/uL Hgb 9.2 L (12.0-18.0) g/dL Hct 27.2 L (35.0-51.0) % MCV 83.9 (80.0-94.0) fL MCH 28.3 (27.0-31.0) pg MCHC 33.8 (33.0-37.0) g/dL RDW 14.6 H (11.5-14.5) % Plt Count 184 (130-400) K/uL MPV 9.2 (7.2-11.7) fL Neut % (Auto) 86.3 H (50.0-75.0) % Lymph % (Auto) 9.1 L (20.0-40.0) % [place] % (Auto) 3.7 (0.0-10.0) % Eos % (Auto) 0.3 (0.0-4.0) % Baso % (Auto) 0.6 (0.0-2.0) % Neut # 10.6 H (1.8-7.0) K/uL Lymph # 1.1 (1.0-4.3) K/uL [place] # 0.5 (0.0-0.8) K/uL Eos # 0.0 (0.0-0.7) K/uL Baso # 0.1 (0.0-0.2) K/uL Neutrophils % (Manual) 77 H (50-75) % Band Neutrophils % 8 H (0-2) % Lymphocytes % (Manual) 9 L (20-40) % Reactive Lymphs % 1 H (0-0) % Monocytes % (Manual) 2 (0-10) % Eosinophils % (Manual) 3 (0-4) % Toxic Granulation Present Dohle Bodies Present Platelet Estimate Normal (NORMAL) RBC Morphology Normal PT (9.7-12.2) SECONDS INR Sodium 129 L (132-148) mmol/L Potassium 3.4 L (3.6-5.2) mmol/L Chloride 93 L (98-107) mmol/L Carbon Dioxide 24 (22-30) mmol/L Anion Gap 15 (10-20) BUN 41 H (9-20) mg/dL Creatinine 2.3 H (0.8-1.5) mg/dL Est GFR ( Amer) 33 Est GFR (Non-Af Amer) 27 POC Glucose (mg/dL) 244 H (65-110) mg/dL Random Glucose 165 H (75-110) mg/dL Calcium 7.5 L (8.6-10.4) mg/dl Phosphorus 4.4 (2.5-4.5) mg/dL Magnesium 1.9 (1.6-2.3) mg/dL Total Bilirubin 0.7 (0.2-1.3) mg/dL AST 30 (17-59) U/L ALT 51 (21-72) U/L Alkaline Phosphatase 50 (38-126) U/L Total Creatine Kinase (55-170) U/L CK-MB (Mass) (0.0-3.38) ng/mL Troponin I, Quant (0.00-0.120) ng/mL Total Protein 5.9 L (6.3-8.3) g/dL Albumin 2.8 L (3.5-5.0) g/dL Globulin 3.1 (2.2-3.9) gm/dL Albumin/Globulin Ratio 0.9 L (1.0-2.1) Free PSA ng/mL % Free PSA (>25) Percent Total PSA (<=4.0) ng/mL Prostate Cancer Risk Percent Mycoplasma pneumon IgM (<770) U/mL 07/16/17 07/15/1717 Range/Units 04:00 23:37 21:08 WBC (4.8-10.8) K/uL RBC (4.40-5.90) Mil/uL Hgb (12.0-18.0) g/dL Hct (35.0-51.0) % MCV (80.0-94.0) fL MCH (27.0-31.0) pg MCHC (33.0-37.0) g/dL RDW (11.5-14.5) % Plt Count (130-400) K/uL MPV (7.2-11.7) fL Neut % (Auto) (50.0-75.0) % Lymph % (Auto) (20.0-40.0) % [place] % (Auto) (0.0-10.0) % Eos % (Auto) (0.0-4.0) % Baso % (Auto) (0.0-2.0) % Neut # (1.8-7.0) K/uL Lymph # (1.0-4.3) K/uL [place] # (0.0-0.8) K/uL Eos # (0.0-0.7) K/uL Baso # (0.0-0.2) K/uL Neutrophils % (Manual) (50-75) % Band Neutrophils % (0-2) % Lymphocytes % (Manual) (20-40) % Reactive Lymphs % (0-0) % Monocytes % (Manual) (0-10) % Eosinophils % (Manual) (0-4) % Toxic Granulation Dohle Bodies Platelet Estimate (NORMAL) RBC Morphology PT 14.3 H (9.7-12.2) SECONDS INR 1.3 Sodium (132-148) mmol/L Potassium (3.6-5.2) mmol/L Chloride (98-107) mmol/L Carbon Dioxide (22-30) mmol/L Anion Gap (10-20) BUN (9-20) mg/dL Creatinine (0.8-1.5) mg/dL Est GFR ( Amer) Est GFR (Non-Af Amer) POC Glucose (mg/dL) 216 H 168 H (65-110) mg/dL Random Glucose (75-110) mg/dL Calcium (8.6-10.4) mg/dl Phosphorus (2.5-4.5) mg/dL Magnesium (1.6-2.3) mg/dL Total Bilirubin (0.2-1.3) mg/dL AST (17-59) U/L ALT (21-72) U/L Alkaline Phosphatase (38-126) U/L Total Creatine Kinase (55-170) U/L CK-MB (Mass) (0.0-3.38) ng/mL Troponin I, Quant (0.00-0.120) ng/mL Total Protein (6.3-8.3) g/dL Albumin (3.5-5.0) g/dL Globulin (2.2-3.9) gm/dL Albumin/Globulin Ratio (1.0-2.1) Free PSA ng/mL % Free PSA (>25) Percent Total PSA (<=4.0) ng/mL Prostate Cancer Risk Percent Mycoplasma pneumon IgM (<770) U/mL 07/15/17 07/14/17 Range/Units 08:29 11:23 WBC (4.8-10.8) K/uL RBC (4.40-5.90) Mil/uL Hgb (12.0-18.0) g/dL Hct (35.0-51.0) % MCV (80.0-94.0) fL MCH (27.0-31.0) pg MCHC (33.0-37.0) g/dL RDW (11.5-14.5) % Plt Count (130-400) K/uL MPV (7.2-11.7) fL Neut % (Auto) (50.0-75.0) % Lymph % (Auto) (20.0-40.0) % [place] % (Auto) (0.0-10.0) % Eos % (Auto) (0.0-4.0) % Baso % (Auto) (0.0-2.0) % Neut # (1.8-7.0) K/uL Lymph # (1.0-4.3) K/uL [place] # (0.0-0.8) K/uL Eos # (0.0-0.7) K/uL Baso # (0.0-0.2) K/uL Neutrophils % (Manual) (50-75) % Band Neutrophils % (0-2) % Lymphocytes % (Manual) (20-40) % Reactive Lymphs % (0-0) % Monocytes % (Manual) (0-10) % Eosinophils % (Manual) (0-4) % Toxic Granulation Dohle Bodies Platelet Estimate (NORMAL) RBC Morphology PT (9.7-12.2) SECONDS INR Sodium (132-148) mmol/L Potassium (3.6-5.2) mmol/L Chloride (98-107) mmol/L Carbon Dioxide (22-30) mmol/L Anion Gap (10-20) BUN (9-20) mg/dL Creatinine (0.8-1.5) mg/dL Est GFR ( Amer) Est GFR (Non-Af Amer) POC Glucose (mg/dL) (65-110) mg/dL Random Glucose (75-110) mg/dL Calcium (8.6-10.4) mg/dl Phosphorus (2.5-4.5) mg/dL Magnesium (1.6-2.3) mg/dL Total Bilirubin (0.2-1.3) mg/dL AST (17-59) U/L ALT (21-72) U/L Alkaline Phosphatase (38-126) U/L Total Creatine Kinase (55-170) U/L CK-MB (Mass) (0.0-3.38) ng/mL Troponin I, Quant (0.00-0.120) ng/mL Total Protein (6.3-8.3) g/dL Albumin (3.5-5.0) g/dL Globulin (2.2-3.9) gm/dL Albumin/Globulin Ratio (1.0-2.1) Free PSA 13.8 ng/mL % Free PSA Not calculated (>25) Percent Total PSA 23.3 H (<=4.0) ng/mL Prostate Cancer Risk >50 Percent Mycoplasma pneumon IgM 81 (<770) U/mL Laboratory Results - last 24 hr 07/14/17 07/15/17 07/15/17 11:23 08:29 21:08 WBC RBC Hgb Hct MCV MCH MCHC RDW Plt Count MPV Neut % (Auto) Lymph % (Auto) [place] % (Auto) Eos % (Auto) Baso % (Auto) Neut # Lymph # [place] # Eos # Baso # Neutrophils % (Manual) Band Neutrophils % Lymphocytes % (Manual) Reactive Lymphs % Monocytes % (Manual) Eosinophils % (Manual) Toxic Granulation Dohle Bodies Platelet Estimate RBC Morphology PT INR Sodium Potassium Chloride Carbon Dioxide Anion Gap BUN Creatinine Est GFR ( Amer) Est GFR (Non-Af Amer) POC Glucose (mg/dL) 168 H Random Glucose Calcium Phosphorus Magnesium Total Bilirubin AST ALT Alkaline Phosphatase Total Creatine Kinase CK-MB (Mass) Troponin I, Quant Total Protein Albumin Globulin Albumin/Globulin Ratio Free PSA 13.8 % Free PSA Not calculated Total PSA 23.3 H Prostate Cancer Risk >50 Mycoplasma pneumon IgM 81 07/15/17 07/16/17 07/16/17 23:37 04:00 05:43 WBC RBC Hgb Hct MCV MCH MCHC RDW Plt Count MPV Neut % (Auto) Lymph % (Auto) [place] % (Auto) Eos % (Auto) Baso % (Auto) Neut # Lymph # [place] # Eos # Baso # Neutrophils % (Manual) Band Neutrophils % Lymphocytes % (Manual) Reactive Lymphs % Monocytes % (Manual) Eosinophils % (Manual) Toxic Granulation Dohle Bodies Platelet Estimate RBC Morphology PT 14.3 H INR 1.3 Sodium 129 L Potassium 3.4 L Chloride 93 L Carbon Dioxide 24 Anion Gap 15 BUN 41 H Creatinine 2.3 H Est GFR ( Amer) 33 Est GFR (Non-Af Amer) 27 POC Glucose (mg/dL) 216 H Random Glucose 165 H Calcium 7.5 L Phosphorus 4.4 Magnesium 1.9 Total Bilirubin 0.7 AST 30 ALT 51 Alkaline Phosphatase 50 Total Creatine Kinase CK-MB ([facility]) Troponin I, Quant Total Protein 5.9 L Albumin 2.8 L Globulin 3.1 Albumin/Globulin Ratio 0.9 L Free PSA % Free PSA Total PSA Prostate Cancer Risk Mycoplasma pneumon IgM 07/16/17 07/16/17 07/16/17 05:43 06:20 06:29 WBC 12.3 H RBC 3.25 L Hgb 9.2 L Hct 27.2 L MCV 83.9 MCH 28.3 MCHC 33.8 RDW 14.6 H Plt Count 184 MPV 9.2 Neut % (Auto) 86.3 H Lymph % (Auto) 9.1 L [place] % (Auto) 3.7 Eos % (Auto) 0.3 Baso % (Auto) 0.6 Neut # 10.6 H Lymph # 1.1 [place] # 0.5 Eos # 0.0 Baso # 0.1 Neutrophils % (Manual) 77 H Band Neutrophils % 8 H Lymphocytes % (Manual) 9 L Reactive Lymphs % 1 H Monocytes % (Manual) 2 Eosinophils % (Manual) 3 Toxic Granulation Present Dohle Bodies Present Platelet Estimate Normal RBC Morphology Normal PT INR Sodium Potassium Chloride Carbon Dioxide Anion Gap BUN Creatinine Est GFR ( Amer) Est GFR (Non-Af Amer) POC Glucose (mg/dL) 244 H Random Glucose Calcium Phosphorus Magnesium Total Bilirubin AST ALT Alkaline Phosphatase Total Creatine Kinase 81 CK-MB (Mass) 0.80 Troponin I, Quant 0.0320 Total Protein Albumin Globulin Albumin/Globulin Ratio Free PSA % Free PSA Total PSA Prostate Cancer Risk Mycoplasma pneumon IgM 07/16/17 07/16/17 11:28 17:45 WBC RBC Hgb Hct MCV MCH MCHC RDW Plt Count MPV Neut % (Auto) Lymph % (Auto) [place] % (Auto) Eos % (Auto) Baso % (Auto) Neut # Lymph # [place] # Eos # Baso # Neutrophils % (Manual) Band Neutrophils % Lymphocytes % (Manual) Reactive Lymphs % Monocytes % (Manual) Eosinophils % (Manual) Toxic Granulation Dohle Bodies Platelet Estimate RBC Morphology PT INR Sodium Potassium Chloride Carbon Dioxide Anion Gap BUN Creatinine Est GFR ( Amer) Est GFR (Non-Af Amer) POC Glucose (mg/dL) 211 H 175 H Random Glucose Calcium Phosphorus Magnesium Total Bilirubin AST ALT Alkaline Phosphatase Total Creatine Kinase CK-MB (Mass) Troponin I, Quant Total Protein Albumin Globulin Albumin/Globulin Ratio Free PSA % Free PSA Total PSA Prostate Cancer Risk Mycoplasma pneumon IgM EKG/Cardiology Studies: Cardiology / EKG Studies 07/16/17 17:35 EKG [ELECTROCARDIOGRAM] Stat Comment: Mode Of Transportation: Reason For Exam: tachycardia Isolation: Contact Fingerstick Blood Sugar Results: 175 Review of Systems - Review of Systems Systems not reviewed;Unavailable: Dementia - Constitutional Constitutional: absent: Fever, Chills - Cardiovascular Cardiovascular: absent: Chest Pain, Dyspnea - Gastrointestinal Gastrointestinal: Abdominal Pain. 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 Code sepsis called on 07/14/17. Neuro: hx Alzheimer's dementia -Aricept 10 mg PO HS -CT head (07/13): no acute intracranial hemorrhage, or suspicious mass effect Cardio: HTN, hx CVA -Cardiology consulted (Dr. Chau), help appreciated -Home blood pressure medications held because blood pressure low: Amlodipine 10 mg po daily, Metoprolol Succinate 100 mg po daily, Losartan 100 mg PO daily -Plavix 75mg po daily -Crestor 10 mg po HS -Lipitor 80 mg po HS -Gemfibrozil 600 mg po BID -Negative troponins -TSH and free T4 WNL - F/u echo report from 07/13/17 Pulm: bilateral pneumonia -CT Abdomen/Pelvis 07/13/17 showed bibasilar lingular and right middle lobe mild nonspecific infiltrates consistent with atelectasis/pneumonia -CXR 07/14/17 showed left basilar consolidative changes with small left pleural effusion -CXR 07/15/17: small left pleural effusion, bibasilar atelectasis -Meropenem, Cipro, and Vanco -negative influenza A/B, negative urine Legionella -f/u mycoplasma GI: abdominal pain likely secondary to gas/ fluid around liver - CT C/A/P showed free air under the right hemidiaphragm and extrahepatic CBD pneumobilia - Surgery consulted (Dr. Boyce) - help appreciated -NPO -NGT in place -CT abdomen and pelvis with IV and PO contrast- showed gas and fluid around left lobe liver and along inferior vena cava that is unchanged, no evidence of extravasation of oral contrast from stomach or duodenem. -Abdominal u/s (07/15): limited sonographic evaluation of the liver for purposes of drainage and did not show the subdiaphragmatic fluid collection see in previous CT -Abdominal xray (07/16): colonic contrast, no mechanical obstruction suggested. -no intervention by IR at this time : hx overactive bladder -Festerodine 8 mg PO 1x/day -Enlarged Prostate on CT Abdomen/Pelvis -f/u PSA Nephro: CKD stage 3, possible acute on chronic - BUN 38, Cr 2.3, worsening - 2+ urine protein and 2+ urine glucose on U/A 07/14/17 - Nephrology consulted (Dr. Oconnell) -NS @ 100 cc/hr Endo: hx of diabetes, hypothyroidism - Random glucose from 112-281 - ISS -accuchecks -Synthroid 50 mcg po daily -TSH and T4 WNL ID: Sepsis secondary to likely biliary or hepatic perforation from recent ERCP - Code sepsis called 07/14 - Lactate 3.0, 21 bands - HCAP pneumonia suspected given recent hospitalization and antibiotic use for buttock abscess - Infectious Disease consulted (Dr. Langford), help appreciated -blood culture: gram positive cocci -urine cultures: no growth -Negative MRSA - Meropenem 500 mg q6h, Ciprofloxacin 400 mg q12h and Vancomycin 1gm q24h - Sodium Bicarb 150 meq PPX: DVT: SCD's, hold chemical anticoagulation due to complications s/p ERCP GI: Protonix 40 mg IV daily florastor <Tre Walls - Last Filed: 07/16/17 19:54> CCU Objective - Vital Signs / Intake & Output Vital Signs (Last 4 hours): Vital Signs Temp Pulse Resp BP Pulse Ox 07/16/17 18:08 95/53 L 07/16/17 18:00 157 H 33 H 92 L 07/16/17 17:57 157 H 33 H 100/58 L 92 L 07/16/17 17:38 136 H 35 H 111/64 96 07/16/17 17:08 98 H 26 H 124/57 L 94 L 07/16/17 17:00 98 H 24 93 L 07/16/17 16:30 98 H 24 96 07/16/17 16:07 117/61 07/16/17 16:00 98.4 F 96 H 30 H 95 Intake and Output (Last 8hrs): Intake & Output 07/16/17 07/16/17 07/16/17 06:59 14:59 22:59 Intake Total 400 1100 400 Output Total 260 470 170 Balance 140 630 230 Intake: Intake, IV Amount 400 1100 400 Right Distal Port 0 Right Distal Port 200 Internal Jugular Right Medial Port 0 Right Proximal Port 0 Right Proximal Port 400 900 400 Internal Jugular Oral 0 Output: Gastric Amount 20 Right Nares 20 Urine 240 470 170 Urethral ([place]) 240 470 170 Other: # Bowel Movements 0 - Medications Active Medications: Active Medications Generic Name Dose Route Start Last Admin Trade Name Freq PRN Reason Stop Dose Admin Amlodipine Besylate 10 mg 07/14/17 10:00 07/14/17 09:56 Norvasc PO Not Given DAILY [facility] Ascorbic Acid 250 mg 07/14/17 10:00 07/16/17 09:38 Vitamin C 250 Mg Tab PO 250 mg DAILY [facility] Administration Benzocaine/Menthol 1 love 07/14/17 04:24 Cepacol Sore Throat MT Q2 PRN Sore Throat Clopidogrel Bisulfate 75 mg 07/14/17 10:00 Plavix PO DAILY [facility] Cyproheptadine HCl 4 mg 07/14/17 10:00 07/16/17 18:36 Periactin PO Not Given BID [facility] Donepezil HCl 10 mg 07/13/17 22:00 07/15/17 21:10 Aricept PO 10 mg HS [facility] Administration Ferrous Sulfate 325 mg 07/13/17 18:45 07/16/17 18:36 Feosol PO Not Given Q12H [facility] Gemfibrozil 600 mg 07/14/17 10:00 07/16/17 18:36 Lopid PO Not Given BID [facility] Home Med 8 mg 07/14/17 10:00 Fesoterodine Fumarate [Toviaz] PO DAILY [facility] Hydromorphone HCl 0.5 mg 07/15/17 11:15 07/16/17 16:05 Dilaudid IVP 0.5 mg Q4 PRN Administration Pain, severe (8-10) Ciprofloxacin 400 mg in 200 mls @ 133 mls/hr 07/14/17 09:00 07/16/17 08:27 Cipro 400mg/200ml Dsw IVPB 133 mls/hr Q12H DARINEL Administration Vancomycin/Sodium Chloride 1 gm in 200 mls @ 133.333 mls/hr 07/14/17 11:00 10:12 Vancomycin 1 Gm/Ns 200 Ml IVPB 07/19/17 11:01 133.333 mls/hr Q24H DARINEL Administration Meropenem 500 mg/ Dextrose 100 mls @ 100 mls/hr 07/14/17 13:00 07/16/17 17:26 IVPB 100 mls/hr Q6 DARINEL Administration Sodium Chloride 1,000 mls @ 100 mls/hr 07/15/17 09:00 07/16/17 17:26 Sodium Chloride 0.9% IV 100 mls/hr .Q10H DARINEL Administration Insulin Human Regular 0 unit 07/15/17 12:00 07/16/17 17:57 Novolin R SC 1 unit Q6H DARINEL Administration Protocol Latanoprost 0 ml 07/13/17 22:00 07/15/17 22:20 Xalatan Opht OU 2.5 ml HS DARINEL Administration Levothyroxine Sodium 50 mcg 07/14/17 06:30 07/16/17 06:17 Synthroid PO 50 mcg DAILY@0630 DARINEL Administration Meclizine HCl 12.5 mg 07/14/17 10:00 07/16/17 18:36 Antivert PO Not Given TID DARINEL Metoprolol Succinate 100 mg 07/13/17 21:59 07/14/17 13:41 Toprol Xl PO 100 mg DAILY DARINEL Administration Ondansetron HCl 4 mg 07/14/17 00:38 Zofran Inj IVP Q6 PRN Nausea/Vomiting Pantoprazole Sodium 40 mg 07/14/17 10:00 07/16/17 09:32 Protonix Inj IVP 40 mg DAILY DARINEL Administration Rosuvastatin Calcium 10 mg 07/13/17 22:00 07/15/17 21:10 Crestor PO 10 mg HS DARINEL Administration Saccharomyces Boulardii 250 mg 07/14/17 10:00 07/16/17 18:36 Florastor PO Not Given BID DARINEL - Patient Studies Lab Studies: Microbiology Studies 07/14/17 08:50 Urine Culture - Final Urine,Clean Catch No Growth (<1,000 CFU/ML) Lab Studies 07/16/17 07/16/17 07/16/17 Range/Units 17:45 11:28 06:29 WBC (4.8-10.8) K/uL RBC (4.40-5.90) Mil/uL Hgb (12.0-18.0) g/dL Hct (35.0-51.0) % MCV (80.0-94.0) fL MCH (27.0-31.0) pg MCHC (33.0-37.0) g/dL RDW (11.5-14.5) % Plt Count (130-400) K/uL MPV (7.2-11.7) fL Neut % (Auto) (50.0-75.0) % Lymph % (Auto) (20.0-40.0) % [place] % (Auto) (0.0-10.0) % Eos % (Auto) (0.0-4.0) % Baso % (Auto) (0.0-2.0) % Neut # (1.8-7.0) K/uL Lymph # (1.0-4.3) K/uL [place] # (0.0-0.8) K/uL Eos # (0.0-0.7) K/uL Baso # (0.0-0.2) K/uL Neutrophils % (Manual) (50-75) % Band Neutrophils % (0-2) % Lymphocytes % (Manual) (20-40) % Reactive Lymphs % (0-0) % Monocytes % (Manual) (0-10) % Eosinophils % (Manual) (0-4) % Toxic Granulation Dohle Bodies Platelet Estimate (NORMAL) RBC Morphology PT (9.7-12.2) SECONDS INR Sodium (132-148) mmol/L Potassium (3.6-5.2) mmol/L Chloride (98-107) mmol/L Carbon Dioxide (22-30) mmol/L Anion Gap (10-20) BUN (9-20) mg/dL Creatinine (0.8-1.5) mg/dL Est GFR ( Amer) Est GFR (Non-Af Amer) POC Glucose (mg/dL) 175 H 211 H (65-110) mg/dL Random Glucose (75-110) mg/dL Calcium (8.6-10.4) mg/dl Phosphorus (2.5-4.5) mg/dL Magnesium (1.6-2.3) mg/dL Total Bilirubin (0.2-1.3) mg/dL AST (17-59) U/L ALT (21-72) U/L Alkaline Phosphatase (38-126) U/L Total Creatine Kinase 81 (55-170) U/L CK-MB (Mass) 0.80 (0.0-3.38) ng/mL Troponin I, Quant 0.0320 (0.00-0.120) ng/mL Total Protein (6.3-8.3) g/dL Albumin (3.5-5.0) g/dL Globulin (2.2-3.9) gm/dL Albumin/Globulin Ratio (1.0-2.1) Free PSA ng/mL % Free PSA (>25) Percent Total PSA (<=4.0) ng/mL Prostate Cancer Risk Percent Mycoplasma pneumon IgM (<770) U/mL 07/16/17 07/16/17 07/16/17 Range/Units 06:20 05:43 05:43 WBC 12.3 H (4.8-10.8) K/uL RBC 3.25 L (4.40-5.90) Mil/uL Hgb 9.2 L (12.0-18.0) g/dL Hct 27.2 L (35.0-51.0) % MCV 83.9 (80.0-94.0) fL MCH 28.3 (27.0-31.0) pg MCHC 33.8 (33.0-37.0) g/dL RDW 14.6 H (11.5-14.5) % Plt Count 184 (130-400) K/uL MPV 9.2 (7.2-11.7) fL Neut % (Auto) 86.3 H (50.0-75.0) % Lymph % (Auto) 9.1 L (20.0-40.0) % [place] % (Auto) 3.7 (0.0-10.0) % Eos % (Auto) 0.3 (0.0-4.0) % Baso % (Auto) 0.6 (0.0-2.0) % Neut # 10.6 H (1.8-7.0) K/uL Lymph # 1.1 (1.0-4.3) K/uL [place] # 0.5 (0.0-0.8) K/uL Eos # 0.0 (0.0-0.7) K/uL Baso # 0.1 (0.0-0.2) K/uL Neutrophils % (Manual) 77 H (50-75) % Band Neutrophils % 8 H (0-2) % Lymphocytes % (Manual) 9 L (20-40) % Reactive Lymphs % 1 H (0-0) % Monocytes % (Manual) 2 (0-10) % Eosinophils % (Manual) 3 (0-4) % Toxic Granulation Present Dohle Bodies Present Platelet Estimate Normal (NORMAL) RBC Morphology Normal PT (9.7-12.2) SECONDS INR Sodium 129 L (132-148) mmol/L Potassium 3.4 L (3.6-5.2) mmol/L Chloride 93 L (98-107) mmol/L Carbon Dioxide 24 (22-30) mmol/L Anion Gap 15 (10-20) BUN 41 H (9-20) mg/dL Creatinine 2.3 H (0.8-1.5) mg/dL Est GFR ( Amer) 33 Est GFR (Non-Af Amer) 27 POC Glucose (mg/dL) 244 H (65-110) mg/dL Random Glucose 165 H (75-110) mg/dL Calcium 7.5 L (8.6-10.4) mg/dl Phosphorus 4.4 (2.5-4.5) mg/dL Magnesium 1.9 (1.6-2.3) mg/dL Total Bilirubin 0.7 (0.2-1.3) mg/dL AST 30 (17-59) U/L ALT 51 (21-72) U/L Alkaline Phosphatase 50 (38-126) U/L Total Creatine Kinase (55-170) U/L CK-MB (Mass) (0.0-3.38) ng/mL Troponin I, Quant (0.00-0.120) ng/mL Total Protein 5.9 L (6.3-8.3) g/dL Albumin 2.8 L (3.5-5.0) g/dL Globulin 3.1 (2.2-3.9) gm/dL Albumin/Globulin Ratio 0.9 L (1.0-2.1) Free PSA ng/mL % Free PSA (>25) Percent Total PSA (<=4.0) ng/mL Prostate Cancer Risk Percent Mycoplasma pneumon IgM (<770) U/mL 07/16/17 07/15/17 07/15/17 Range/Units 04:00 23:37 21:08 WBC (4.8-10.8) K/uL RBC (4.40-5.90) Mil/uL Hgb (12.0-18.0) g/dL Hct (35.0-51.0) % MCV (80.0-94.0) fL MCH (27.0-31.0) pg MCHC (33.0-37.0) g/dL RDW (11.5-14.5) % Plt Count (130-400) K/uL MPV (7.2-11.7) fL Neut % (Auto) (50.0-75.0) % Lymph % (Auto) (20.0-40.0) % [place] % (Auto) (0.0-10.0) % Eos % (Auto) (0.0-4.0) % Baso % (Auto) (0.0-2.0) % Neut # (1.8-7.0) K/uL Lymph # (1.0-4.3) K/uL [place] # (0.0-0.8) K/uL Eos # (0.0-0.7) K/uL Baso # (0.0-0.2) K/uL Neutrophils % (Manual) (50-75) % Band Neutrophils % (0-2) % Lymphocytes % (Manual) (20-40) % Reactive Lymphs % (0-0) % Monocytes % (Manual) (0-10) % Eosinophils % (Manual) (0-4) % Toxic Granulation Dohle Bodies Platelet Estimate (NORMAL) RBC Morphology PT 14.3 H (9.7-12.2) SECONDS INR 1.3 Sodium (132-148) mmol/L Potassium (3.6-5.2) mmol/L Chloride (98-107) mmol/L Carbon Dioxide (22-30) mmol/L Anion Gap (10-20) BUN (9-20) mg/dL Creatinine (0.8-1.5) mg/dL Est GFR ( Amer) Est GFR (Non-Af Amer) POC Glucose (mg/dL) 216 H 168 H (65-110) mg/dL Random Glucose (75-110) mg/dL Calcium (8.6-10.4) mg/dl Phosphorus (2.5-4.5) mg/dL Magnesium (1.6-2.3) mg/dL Total Bilirubin (0.2-1.3) mg/dL AST (17-59) U/L ALT (21-72) U/L Alkaline Phosphatase (38-126) U/L Total Creatine Kinase (55-170) U/L CK-MB (Mass) (0.0-3.38) ng/mL Troponin I, Quant (0.00-0.120) ng/mL Total Protein (6.3-8.3) g/dL Albumin (3.5-5.0) g/dL Globulin (2.2-3.9) gm/dL Albumin/Globulin Ratio (1.0-2.1) Free PSA ng/mL % Free PSA (>25) Percent Total PSA (<=4.0) ng/mL Prostate Cancer Risk Percent Mycoplasma pneumon IgM (<770) U/mL 07/15/17 07/14/17 Range/Units 08:29 11:23 WBC (4.8-10.8) K/uL RBC (4.40-5.90) Mil/uL Hgb (12.0-18.0) g/dL Hct (35.0-51.0) % MCV (80.0-94.0) fL MCH (27.0-31.0) pg MCHC (33.0-37.0) g/dL RDW (11.5-14.5) % Plt Count (130-400) K/uL MPV (7.2-11.7) fL Neut % (Auto) (50.0-75.0) % Lymph % (Auto) (20.0-40.0) % [place] % (Auto) (0.0-10.0) % Eos % (Auto) (0.0-4.0) % Baso % (Auto) (0.0-2.0) % Neut # (1.8-7.0) K/uL Lymph # (1.0-4.3) K/uL [place] # (0.0-0.8) K/uL Eos # (0.0-0.7) K/uL Baso # (0.0-0.2) K/uL Neutrophils % (Manual) (50-75) % Band Neutrophils % (0-2) % Lymphocytes % (Manual) (20-40) % Reactive Lymphs % (0-0) % Monocytes % (Manual) (0-10) % Eosinophils % (Manual) (0-4) % Toxic Granulation Dohle Bodies Platelet Estimate (NORMAL) RBC Morphology PT (9.7-12.2) SECONDS INR Sodium (132-148) mmol/L Potassium (3.6-5.2) mmol/L Chloride (98-107) mmol/L Carbon Dioxide (22-30) mmol/L Anion Gap (10-20) BUN (9-20) mg/dL Creatinine (0.8-1.5) mg/dL Est GFR ( Amer) Est GFR (Non-Af Amer) POC Glucose (mg/dL) (65-110) mg/dL Random Glucose (75-110) mg/dL Calcium (8.6-10.4) mg/dl Phosphorus (2.5-4.5) mg/dL Magnesium (1.6-2.3) mg/dL Total Bilirubin (0.2-1.3) mg/dL AST (17-59) U/L ALT (21-72) U/L Alkaline Phosphatase (38-126) U/L Total Creatine Kinase (55-170) U/L CK-MB (Mass) (0.0-3.38) ng/mL Troponin I, Quant (0.00-0.120) ng/mL Total Protein (6.3-8.3) g/dL Albumin (3.5-5.0) g/dL Globulin (2.2-3.9) gm/dL Albumin/Globulin Ratio (1.0-2.1) Free PSA 13.8 ng/mL % Free PSA Not calculated (>25) Percent Total PSA 23.3 H (<=4.0) ng/mL Prostate Cancer Risk >50 Percent Mycoplasma pneumon IgM 81 (<770) U/mL Laboratory Results - last 24 hr 07/14/17 07/15/17 07/15/17 11:23 08:29 21:08 WBC RBC Hgb Hct MCV MCH MCHC RDW Plt Count MPV Neut % (Auto) Lymph % (Auto) [place] % (Auto) Eos % (Auto) Baso % (Auto) Neut # Lymph # [place] # Eos # Baso # Neutrophils % (Manual) Band Neutrophils % Lymphocytes % (Manual) Reactive Lymphs % Monocytes % (Manual) Eosinophils % (Manual) Toxic Granulation Dohle Bodies Platelet Estimate RBC Morphology PT INR Sodium Potassium Chloride Carbon Dioxide Anion Gap BUN Creatinine Est GFR ( Amer) Est GFR (Non-Af Amer) POC Glucose (mg/dL) 168 H Random Glucose Calcium Phosphorus Magnesium Total Bilirubin AST ALT Alkaline Phosphatase Total Creatine Kinase CK-MB (Mass) Troponin I, Quant Total Protein Albumin Globulin Albumin/Globulin Ratio Free PSA 13.8 % Free PSA Not calculated Total PSA 23.3 H Prostate Cancer Risk >50 Mycoplasma pneumon IgM 81 07/15/17 07/16/17 07/16/17 23:37 04:00 05:43 WBC RBC Hgb Hct MCV MCH MCHC RDW Plt Count MPV Neut % (Auto) Lymph % (Auto) [place] % (Auto) Eos % (Auto) Baso % (Auto) Neut # Lymph # [place] # Eos # Baso # Neutrophils % (Manual) Band Neutrophils % Lymphocytes % (Manual) Reactive Lymphs % Monocytes % (Manual) Eosinophils % (Manual) Toxic Granulation Dohle Bodies Platelet Estimate RBC Morphology PT 14.3 H INR 1.3 Sodium 129 L Potassium 3.4 L Chloride 93 L Carbon Dioxide 24 Anion Gap 15 BUN 41 H Creatinine 2.3 H Est GFR ( Amer) 33 Est GFR (Non-Af Amer) 27 POC Glucose (mg/dL) 216 H Random Glucose 165 H Calcium 7.5 L Phosphorus 4.4 Magnesium 1.9 Total Bilirubin 0.7 AST 30 ALT 51 Alkaline Phosphatase 50 Total Creatine Kinase CK-MB (Mass) Troponin I, Quant Total Protein 5.9 L Albumin 2.8 L Globulin 3.1 Albumin/Globulin Ratio 0.9 L Free PSA % Free PSA Total PSA Prostate Cancer Risk Mycoplasma pneumon IgM 07/16/17 07/16/17 07/16/17 05:43 06:20 06:29 WBC 12.3 H RBC 3.25 L Hgb 9.2 L Hct 27.2 L MCV 83.9 MCH 28.3 MCHC 33.8 RDW 14.6 H Plt Count 184 MPV 9.2 Neut % (Auto) 86.3 H Lymph % (Auto) 9.1 L [place] % (Auto) 3.7 Eos % (Auto) 0.3 Baso % (Auto) 0.6 Neut # 10.6 H Lymph # 1.1 [place] # 0.5 Eos # 0.0 Baso # 0.1 Neutrophils % (Manual) 77 H Band Neutrophils % 8 H Lymphocytes % (Manual) 9 L Reactive Lymphs % 1 H Monocytes % (Manual) 2 Eosinophils % (Manual) 3 Toxic Granulation Present Dohle Bodies Present Platelet Estimate Normal RBC Morphology Normal PT INR Sodium Potassium Chloride Carbon Dioxide Anion Gap BUN Creatinine Est GFR ( Amer) Est GFR (Non-Af Amer) POC Glucose (mg/dL) 244 H Random Glucose Calcium Phosphorus Magnesium Total Bilirubin AST ALT Alkaline Phosphatase Total Creatine Kinase 81 CK-MB (Mass) 0.80 Troponin I, Quant 0.0320 Total Protein Albumin Globulin Albumin/Globulin Ratio Free PSA % Free PSA Total PSA Prostate Cancer Risk Mycoplasma pneumon IgM 07/16/17 07/16/17 11:28 17:45 WBC RBC Hgb Hct MCV MCH MCHC RDW Plt Count MPV Neut % (Auto) Lymph % (Auto) [place] % (Auto) Eos % (Auto) Baso % (Auto) Neut # Lymph # [place] # Eos # Baso # Neutrophils % (Manual) Band Neutrophils % Lymphocytes % (Manual) Reactive Lymphs % Monocytes % (Manual) Eosinophils % (Manual) Toxic Granulation Dohle Bodies Platelet Estimate RBC Morphology PT INR Sodium Potassium Chloride Carbon Dioxide Anion Gap BUN Creatinine Est GFR ( Amer) Est GFR (Non-Af Amer) POC Glucose (mg/dL) 211 H 175 H Random Glucose Calcium Phosphorus Magnesium Total Bilirubin AST ALT Alkaline Phosphatase Total Creatine Kinase CK-MB (Mass) Troponin I, Quant Total Protein Albumin Globulin Albumin/Globulin Ratio Free PSA % Free PSA Total PSA Prostate Cancer Risk Mycoplasma pneumon IgM EKG/Cardiology Studies: Cardiology / EKG Studies 07/16/17 17:35 EKG [ELECTROCARDIOGRAM] Stat Comment: Mode Of Transportation: Reason For Exam: tachycardia Isolation: Contact Critical Care Progress Note - Nutrition Nutrition: Nutrition Category Date Time Status Liquid Diet [DIET] Diets 07/16/17 Dinner Active Attending/Attestation - Attestation I have personally seen and examined this patient.: Yes I have fully participated in the care of the patient.: Yes I have reviewed all pertinent clinical information: Yes Notes (Text): 07/16/17 19:52 Today: , July 16, 2017 The Patient was seen and examined at the bedside, Medical records reviewed, and management issues were discussed and formulated with the house staff. I have reviewed all the relevant clinical, laboratory, hemodynamic, radiographic data and medications Events reviewed Pain issues, skin care, head of the bed elevation, glycemic control were addressed. I concur with resident's assessment and plan of care as transcribed in Dr. Vogt note.
[2017-07-16] MEDS: Latanoprost 2.5 ml Opht Soln OU SCH (21:15)
[2017-07-17] MEDS: Meropenem 500 MG in Dextrose 5% In Water 100 ML IVPB SCH ×2 (00:06→06:00)
[2017-07-17] MEDS: HYDROmorphone 0.5 mg/0.5 ml ISec IVP PRN ×4 (01:08→15:58)
[2017-07-17] MEDS: Sodium Chloride 0.9% 1,000 ML IV SCH ×5 (06:02→22:00)
[2017-07-17 06:13] LABS: BASO # 0.1 K/uL (0.0-0.2); BASO % 0.5 % (0.0-2.0); EOS # 0.1 K/uL (0.0-0.7); EOS % 1.1 % (0.0-4.0); HEMATOCRIT 27.1 % (35.0-51.0); LYMPH # 1.3 K/uL (1.0-4.3); LYMPH % 10.2 % (20.0-40.0); MEAN CELL VOLUME 84.5 fL (80.0-94.0); MEAN CORPUSCULAR HEMOGLOBIN 28.4 pg (27.0-31.0); MEAN CORPUSCULAR HGB CONC 33.7 g/dL (33.0-37.0); MEAN PLATELET VOLUME 9.1 fL (7.2-11.7); MONO # 0.8 K/uL (0.0-0.8); MONO % 6.9 % (0.0-10.0); RED CELL DISTRIBUTION WIDTH 15.1 % (11.5-14.5); WHITE BLOOD COUNT 12.3 K/uL (4.8-10.8)
[2017-07-17 06:20] LABS: POTASSIUM 3.6 mmol/L (3.6-5.2)
[2017-07-17 06:22] LABS: BILIRUBIN,TOTAL 0.6 mg/dL (0.2-1.3)
[2017-07-17 06:23] LABS: ALB/GLOB RATIO 0.9 (1.0-2.1); CALCIUM 7.7 mg/dl (8.6-10.4); PHOSPHOROUS 3.3 mg/dL (2.5-4.5); TOTAL PROTEIN 6.1 g/dL (6.3-8.3)
[2017-07-17 06:24] LABS: MAGNESIUM 2.3 mg/dL (1.6-2.3)
[2017-07-17 06:35] LABS: TROPONIN I 0.314 ng/mL (0.00-0.120)
[2017-07-17] MEDS: Levothyroxine 50 MCG TAB PO SCH (07:27)
--- NOTE | 2017-07-17 07:30 | CP.PCM.PN ---
<Dianne Salinas - Last Filed: 07/17/17 07:27> Subjective - Date & Time of Evaluation Date of Evaluation: 07/17/17 Time of Evaluation: 07:27 - Subjective Subjective: Gastroenterology Fellow/PGY5 Progress Note Patient continues to have abdominal discomfort. Resting comfortably. Nursing notes SVT and Afib RVR overnight now on cardizem drip. Tolerated clear liquid diet. No bowel movement overnight. A 12-point review of systems limited in setting of Alzheimer's Dementia. Objective - Vital Signs/Intake and Output Vital Signs (last 24 hours): Temp Pulse Resp BP Pulse Ox 98.2 F 79 19 95/46 L 92 L 07/17/17 04:00 07/17/17 06:07 07/17/17 06:07 07/17/17 06:07 07/17/17 06:07 Intake and Output: 07/17/17 07/17/17 06:59 18:59 Intake Total 1490 Output Total 400 Balance 1090 - Medications Medications: Current Medications Ascorbic Acid (Vitamin C 250 Mg Tab) 250 mg PO DAILY [facility] Last Admin: 07/16/17 09:38 Dose: 250 mg Benzocaine/Menthol (Cepacol Sore Throat) 1 love MT Q2 PRN PRN Reason: Sore Throat Clopidogrel Bisulfate (Plavix) 75 mg PO DAILY [facility] Cyproheptadine HCl (Periactin) 4 mg PO BID [facility] Last Admin: 07/16/17 18:36 Dose: Not Given Donepezil HCl (Aricept) 10 mg PO HS [facility] Last Admin: 07/16/17 21:13 Dose: 10 mg Ferrous Sulfate (Feosol) 325 mg PO Q12H [facility] Last Admin: 07/17/17 06:00 Dose: 325 mg Gemfibrozil (Lopid) 600 mg PO BID [facility] Last Admin: 07/16/17 18:36 Dose: Not Given Home Med (Fesoterodine Fumarate [Toviaz]) 8 mg PO DAILY [facility] Hydromorphone HCl (Dilaudid) 0.5 mg IVP Q4 PRN PRN Reason: Pain, severe (8-10) Last Admin: 07/17/17 05:00 Dose: 0.5 mg Ciprofloxacin (Cipro 400mg/200ml Dsw) 400 mg in 200 mls @ 133 mls/hr IVPB Q12H [facility] Last Admin: 07/16/17 20:43 Dose: 133 mls/hr Vancomycin/Sodium Chloride (Vancomycin 1 Gm/Ns 200 Ml) 1 gm in 200 mls @ 133.333 mls/hr IVPB Q24H [facility] Stop: 07/19/17 11:01 Last Admin: 07/16/17 10:12 Dose: 133.333 mls/hr Meropenem 500 mg/ Dextrose 100 mls @ 100 mls/hr IVPB Q6 [facility] Last Admin: 07/17/17 06:00 Dose: 100 mls/hr Sodium Chloride (Sodium Chloride 0.9%) 1,000 mls @ 100 mls/hr IV .Q10H [facility] Last Admin: 07/17/17 06:02 Dose: 100 mls/hr Diltiazem HCl 125 mg/ Dextrose 125 mls @ 5 mls/hr IV .Q24H [facility]; 5 MG/HR PRN Reason: Protocol Last Admin: 07/16/17 22:32 Dose: 5 mg/hr, 5 mls/hr Insulin Human Regular (Novolin R) 0 unit SC ACHS [facility] PRN Reason: Protocol Latanoprost (Xalatan Opht) 0 ml OU HS [facility] Last Admin: 07/16/17 21:15 Dose: 2.5 ml Levothyroxine Sodium (Synthroid) 50 mcg PO DAILY@0630 [facility] Last Admin: 07/17/17 07:27 Dose: 50 mcg Meclizine HCl (Antivert) 12.5 mg PO TID [facility] Last Admin: 07/16/17 18:36 Dose: Not Given Metoprolol Succinate (Toprol Xl) 100 mg PO DAILY [facility] Last Admin: 07/14/17 13:41 Dose: 100 mg Ondansetron HCl (Zofran Inj) 4 mg IVP Q6 PRN PRN Reason: Nausea/Vomiting Pantoprazole Sodium (Protonix Inj) 40 mg IVP DAILY [facility] Last Admin: 07/16/17 09:32 Dose: 40 mg Rosuvastatin Calcium (Crestor) 10 mg PO HS [facility] Last Admin: 07/16/17 21:14 Dose: 10 mg Saccharomyces Boulardii (Florastor) 250 mg PO BID [facility] Last Admin: 07/16/17 18:36 Dose: Not Given - Labs Labs: 07/17/17 06:04 07/17/17 06:04 PT 14.3 SECONDS (9.7-12.2) H 07/16/17 04:00 INR 1.3 07/16/17 04:00 APTT 29 SECONDS (21-34) 07/13/17 20:04 - Constitutional Appears: Non-toxic, No Acute Distress - Head Exam Head Exam: ATRAUMATIC, NORMOCEPHALIC - Eye Exam Eye Exam: EOMI, PERRL Pupil Exam: PERRL. absent: Miosis, Mydriatic - ENT Exam ENT Exam: Mucous Membranes Moist, Normal Oropharynx - Neck Exam Neck Exam: Full ROM, Normal Inspection - Respiratory Exam Respiratory Exam: Clear to Ausculation Bilateral. absent: Rales, Rhonchi, Wheezes - Cardiovascular Exam Cardiovascular Exam: RRR, +S1, +S2. absent: Gallop, Rubs - GI/Abdominal Exam GI & Abdominal Exam: Distended, Soft, Tenderness, Normal Bowel Sounds. absent: Firm, Guarding, Rigid, Organomegaly, Rebound Additional comments: epigastric tenderness to palpation, improving distension - Extremities Exam Extremities Exam: Normal Inspection. absent: Pedal Edema - Neurological Exam Neurological Exam: Alert, Awake - Psychiatric Exam Psychiatric exam: Normal Affect, Normal Mood - Skin Skin Exam: Dry, Intact, Normal Color, Warm Assessment and Plan - Assessment and Plan (Free Text) Assessment: 82 year old male wit history of Diabetes, Hyperlipidemia, Hypertension, Hypothyroidism, CKD, Alzheimer's Dementia, CVA on Plavix, and cholangitis s/p ERCP with CBD stent (04/2017). Active treatment of pneumoperitoneum and hepatic subcapsular/extracapsular fluid collection 2/2 repeat ERCP guidewire perforation. Plan: >NGT pulled yesterday >tolerating clear liquids >surgery managing- appreciate recommendations >continue antibiotics >will follow clinical course <Gavino Damian - Last Filed: 07/17/17 17:59> Objective - Vital Signs/Intake and Output Vital Signs (last 24 hours): Temp Pulse Resp BP Pulse Ox 99.8 F H 82 23 101/43 L 94 L 07/17/17 16:00 07/17/17 16:26 07/17/17 16:26 07/17/17 17:01 07/17/17 16:26 Intake and Output: 07/17/17 07/17/17 06:59 18:59 Intake Total 1490 1227.5 Output Total 400 210 Balance 1090 1017.5 - Medications Medications: Current Medications Ascorbic Acid (Vitamin C 250 Mg Tab) 250 mg PO DAILY [facility] Last Admin: 07/17/17 10:03 Dose: 250 mg Benzocaine/Menthol (Cepacol Sore Throat) 1 love MT Q2 PRN PRN Reason: Sore Throat Clopidogrel Bisulfate (Plavix) 75 mg PO DAILY [facility] Cyproheptadine HCl (Periactin) 4 mg PO BID [facility] Last Admin: 07/17/17 17:01 Dose: 4 mg Diltiazem HCl (Cardizem Cd) 120 mg PO DAILY [facility] Last Admin: 07/17/17 15:04 Dose: 120 mg Donepezil HCl (Aricept) 10 mg PO HS [facility] Last Admin: 07/16/17 21:13 Dose: 10 mg Ferrous Sulfate (Feosol) 325 mg PO Q12H [facility] Last Admin: 07/17/17 06:00 Dose: 325 mg Furosemide (Lasix) 20 mg IVP BID [facility] Last Admin: 07/17/17 17:01 Dose: 20 mg Gemfibrozil (Lopid) 600 mg PO BID [facility] Last Admin: 07/17/17 10:03 Dose: 600 mg Home Med (Fesoterodine Fumarate [Toviaz]) 8 mg PO DAILY [facility] Hydromorphone HCl (Dilaudid) 0.5 mg IVP Q4 PRN PRN Reason: Pain, severe (8-10) Last Admin: 07/17/17 15:58 Dose: 0.5 mg Sodium Chloride (Sodium Chloride 0.9%) 1,000 mls @ 100 mls/hr IV .Q10H [facility] Last Admin: 07/17/17 11:27 Dose: Not Given Tigecycline 50 mg/ Dextrose 100 mls @ 100 mls/hr IVPB Q12H [facility] Insulin Human Regular (Novolin R) 0 unit SC ACHS [facility] PRN Reason: Protocol Last Admin: 07/17/17 16:57 Dose: 2 unit Latanoprost (Xalatan Opht) 0 ml OU HS [facility] Last Admin: 07/16/17 21:15 Dose: 2.5 ml Levothyroxine Sodium (Synthroid) 50 mcg PO DAILY@0630 [facility] Last Admin: 07/17/17 07:27 Dose: 50 mcg Meclizine HCl (Antivert) 12.5 mg PO TID [facility] Last Admin: 07/17/17 15:28 Dose: 12.5 mg Metoprolol Succinate (Toprol Xl) 100 mg PO DAILY [facility] Last Admin: 07/14/17 13:41 Dose: 100 mg Ondansetron HCl (Zofran Inj) 4 mg IVP Q6 PRN PRN Reason: Nausea/Vomiting Pantoprazole Sodium (Protonix Inj) 40 mg IVP DAILY [facility] Last Admin: 07/17/17 10:04 Dose: 40 mg Rosuvastatin Calcium (Crestor) 10 mg PO HS [facility] Last Admin: 07/16/17 21:14 Dose: 10 mg Saccharomyces Boulardii (Florastor) 250 mg PO BID [facility] Last Admin: 07/17/17 17:02 Dose: 250 mg - Labs Labs: 07/17/17 06:04 07/17/17 06:04 PT 14.3 SECONDS (9.7-12.2) H 07/16/17 04:00 INR 1.3 07/16/17 04:00 APTT 29 SECONDS (21-34) 07/13/17 20:04 Attending/Attestation - Attestation I have personally seen and examined this patient.: Yes I have fully participated in the care of the patient.: Yes I have reviewed all pertinent clinical information, including history, physical exam and plan: Yes Notes (Text): 07/17/17 17:57 82 year old male with h/o DM, HLD, HTN, CKD, Dementia, CVA, gluteal abscess, recent episode of K pneumonia bacterimia 2/2 cholangitis s/p prior ERCP with stent now admitted after ERCP to remove stent/stone was complicated by perforation. 1. Pneumoperitoneum 2. Mitzy-hepatic fluid collection Plan: -this represents a guidewire perforation of the liver capsule or peripheral bile ducts -reviewed the case with IR, not amenable to percutaneous drainage -currently patient is hemodynamically stable -he is on broad spectrum antibiotics -positive blood cultures noted for E. faecalis, ID consulted, on tigacycline, follow up cultures without growth so far -tolerating liquid diet, consider advancing to full liquid diet later today -surgery is following with plans for conservative management as long as he remains stable -discussed with the niece, Lyndsey today
[2017-07-17] MEDS: Ciprofloxacin 400mg/200ml D5W 400 MG/200 ML BAG IVPB SCH (08:09)
[2017-07-17] MEDS: (Novolin R) Insulin Human Regular 100 units/ml vial SC SCH ×4 (08:37→22:05)
--- NOTE | 2017-07-17 08:57 | CP.PCM.PN ---
Subjective - Date & Time of Evaluation Date of Evaluation: 07/17/17 Time of Evaluation: 08:40 - Subjective Subjective: Hospitalist Progress Note Patient was seen and examined at 8:40 AM 07/17/17 ICU Bed #18 82 year old male with extensive medical history (please see Assessment and Plans below) who underwent ERCP for removal of CBD Stent on 07/13/17 after which he complained of abdominal and chest pain. A rapid response was called. CT Chest revealed pneumobilia as well as possible free air beneath Right Hemidiaphragm within Paraesophageal Soft Tissues. CT Abdomen/Pelvis revealed gas fluid and stranding in the subcapsular and extracapsular area around Left Lobe Liver. NGT was placed, patient made NPO, and was then transferred to ICU for further treatment and [id number]. Repeat CT Abdomen/Pelvis on showed gas and fluid around left lobe liver and along inferior vena cava that is unchanged, no evidence of extravasation of oral contrast from stomach or duodenem. GI Dr. Damian spoke with IR 07/15/17 and area is NOT amenable to percutaneous drainage. Surgery Team evaluated patient 07/14/17 an conservative management for now. Abdomen X Ray 07/16/17 showed NO obstruction. NGT tube was discontinued on 07/16/17 and he was started on clear liquid diet. During the evening of 07/16/17 patient developed Atrial Fibrillation and was started on Cardizem Drip. Troponin is elevated at 0.314 and this may be secondary to the Atrial Fibrillation and repeat is pending for morning 07/17/17. Blood Culture showed Enterococcus faecium and therefore he was started on Tigecycline . Please see Assessment and Plans below for further details. Upon FULL ROS: Generalized Chest Pain pressure like is unchanged which is worsened with cough that is dry Generalized Abdominal Pain gas like and is unchanged He has not moved his bowels. Exam: Physical Exam - Constitutional Appears: Patient is moaning off and on and follows some instructions such as following light with his eyes,opening his mouth when requested. He is on O2 via NC at 4L. - Head Exam Head Exam: NORMAL INSPECTION, NORMOCEPHALIC - Eye Exam Eye Exam: EOMI, Normal appearance - ENT Exam ENT Exam: Mucous Membranes dry, NO pharyngeal erythema/exudate. NO lymphadenopathy - Neck Exam Neck exam: Positive for: Full Rom, Normal Inspection. Right Triple Lumen Catheter in place with no signs of surrounding cellulitis - Respiratory Exam Respiratory Exam: Clear to Auscultation Bilateral, NORMAL BREATHING PATTERN. This exam is limited by patient not breathing in deeply and exhaling as instructed. absent: Decreased Breath Sounds, Rhonchi, Wheezes - Cardiovascular Exam Cardiovascular Exam: REGULAR RHYTHM, +S1, +S2 - GI/Abdominal Exam GI & Abdominal Exam: Distended, Bowel Sounds are improved in all 4 quadrants, Tenderness diffusely as per patient (who moans whenever he is palpated in any of the quadrants), NO guarding/NO rebound tenderness. absent: Rigid - Extremities Exam Extremities exam: Positive for: normal inspection, Pulses are strong and equal , Capillary Refill is 2 seconds, NO edema - Back Exam Back exam: This was not done this morning - Neurological Exam Neurological exam: He is still in and out of consciousness but does participate in exam and answer "yes" and "no" questions in burkinan - Psychiatric Exam Psychiatric exam: NOT performed this morning - Skin Skin Exam: Left Lower Buttock 0.2 cm area of former I&D site that has dry eschar. NON tender to palpation. Some hardness around this site but NO erythema , NO edema, and NO warmth. Assessment and Plan: Assessment & Plan (1) Chest pain Assessment and Plan: Patient with atypical chest pain. Cardio Dr. Chau does not feel that this is cardiac related TSH, Free T4 are normal ECHO 07/13/17: LV EF is WNL, moderate concentric LVH, Grade I abnormal relaxation pattern Status: Acute (2) ERCP Guidewire Perforation of Liver Capsule vs Peripheral Bile Duct Assessment and Plan: s/p ERCP with removal of stent and sphincterotomy with Dr. Damian 07/13/17 CXR 07/13/17 does not show air under diaphragm. Chest CT 07/13/17 shows pneumobilia as well as possible free air beneath Right Hemidiaphragm within Paraesophagel soft tissues. CT Abdomen/Pelvis 07/13/17 shows gas fluid and stranding in the subcapsular and extracapsular area around Left Lobe Liver. CT Abdomen/Pelvis on 07/14/17 showed gas and fluid around left lobe liver and along inferior vena cava that is unchanged, no evidence of extravasation of oral contrast from stomach or duodenem. Abdomen X Ray 07/16/17 showed NO obstruction. GI Dr. Damian spoke with IR 11/1/17 and area is NOT amenable to percutaneous drainage. Surgery Dr. Crawford consulted: no surgical intervention at this time and keep NPO with NGT for now NGT was discontinued 07/16/17 and patient is now on clear liquid diet (had 8 ounce of apple juice this morning 07/17/17) Status: Acute (3) Enterococcus faecium Bacteremia As per Blood Culture 07/14/17 Started on Tigecycline 50 mg IV Q12H after 100 mg initial infusion (07/17/17) Discontinued Meropenem, Ciprofloxicin, and Vancomycin Status: Acute (4). Atrial Fibrillation During the evening of 07/16/17 patient went into Atrial Fibrillation and was started on Cardizem Drip at 5 mg/hr. He is currently in Sinus Rythm. Cardizem Drip was decreased to 2.5 mg/hr as his blood pressure was running low. I have asked Nurse Clare to put a call out to Nuclear Medicine Supervisor Dr. Chau who is already following patient. Consider starting PO Cardizem Elevated Troponin may be secondary to the Atrial Fibrillation and will get repeat level now that patient is in Sinus Rhythm Status: Acute (5) Bilateral Pneumonia CT Abdomen/Pelvis 07/13/17 showed bibasilar lingular and right middle lobe mild nonspecific infiltrates consistent with atelectasis/pneumonia As patient was admitted to hospital within the last month (for Left Buttock Abscess) and has been on antibiotics, this is likely Health Care Associated Pneumonia with increased risk for Multidrug Resistence therefore he was started on the following: Meropenem 500 mg IV Q6H (07/14/17 through 07/17/17), Ciprofloxacin 400 mg IV Q12H (07/14/17 through 07/16/17),Vancomycin 1 gm IV Q24H (07/14/17 through ) and then patient started on Tigecycline as mentioned above Urine Legionella Ag is negative F/U Urine Strep pneumoniae Ag Mycoplasma IgM is 81 Influenza A/B is negative Urine Culture is negative ID Dr. Langford is following Status: Acute (6). Anion Gap Metabolic Acidosis Sepsis: CODE SEPSIS was called 07/14/17 See Assessment and Plans #2, #3, #5 Due to the severe acidosis he was also started on D5W with 3 amps of NaHCO3 running at 100 ml/hour and this has resolved therefore the D5W NaHCO3 was discontinued 07/15/17 Status: Acute (7). Hyperkalemia Likely secondary to the Anion Gap Metabolic Acidosis See Assessment and Plans #2 and #3 This has resolved Status: Acute (8). CKD Stage [address] Oconnell As patient's Renal function is worsening he has been started on NS at 100 ml/hr 07/15/17 Satus: Chronic (9). Headache with Hx CVA Assessment and Plan: CT Head 07/13/17 was negative for bleed or acute process If NO surgical/IR intervention will then restart ASA Plavix 75 mg PO 1x/day Status: Acute (10) AD (Alzheimer's disease) Assessment and Plan: Aricept 10 mg PO daily. Status: Chronic (11) Choledocholithiasis Assessment and Plan: s/p ERCP with removal of stent and sphincterotomy with Dr. Damian 07/13/17 Status: Acute (12) Anemia Assessment and Plan: Likely secondary to Chronic Disease: CKD Stage III Resume Ferrous Sulfate 325 mg PO daily. HgB/Hct are stable Status: Chronic (13) Hx Left Gluteal abscess Assessment and Plan: Was I&D by surgery team on 06/26/17 Treated with Bactrim 800/160 PO Q12H for 7 days S/P discharge 06/27/17 Status: Chronic (14) HLD (hyperlipidemia) Assessment and Plan: Lopid 600 mg PO BID Patient takes Lipitor 80 mg PO HS which is not on formulary therefore Crestor 10 mg PO HS (renal dosed). Status: Chronic (15) HTN (hypertension) Assessment and Plan: As the patient's blood pressure is on the low end and he is currently on Cardizem Drip the following medications are on HOLD: Amlodipine 10 mg PO daily, Metoprolol XL 100 mg PO daily, and Losartan 100 mg PO daily are all on HOLD Patient is on NS @ 100 ml/hour 07/15/17 Status: Chronic (16) Hx of stroke without residual deficits Assessment and Plan: CT Head 07/13/17 was negative for bleed or acute process Crestor 10 mg PO HS (renal dosed). Hold ASA as mentioned above Plavix 75 mg PO 1x/day Status: Chronic (17) Diabetes Assessment and Plan: Patient is NPO. Blood Glucose elevated at times despite NO feeding since 07/13/17 ISS Q6H Accuchecks Q6H Status: Chronic (18) History of hypothyroidism Assessment and Plan: Levothyroxine 50 mcg PO daily TSH, Free T4 are normal Status: Chronic (19) Overactive bladder Assessment and Plan: Festerodine 8 mg PO 1x/day Enlarged Prostate on CT Abdomen/Pelvis PSA ordered 07/14/17 but I do not see results. I believe he can follow this up as an outpatient. Status: Chronic (20) Hx of glaucoma Assessment and Plan: Patient's home med Travatan ggt not on formulary. Started Xalatan ggt in bilateral eyes. Status: Chronic (21) Hx of gastroesophageal reflux (GERD) Assessment and Plan: Protonix 10 mg IV daily Status: Chronic (22) Prophylactic measure Assessment and Plan: Protonix 10 mg daily SCDs Hold chemical anticoagulation for now for reasons mentioned above Ascorbic Acid 250 mg PO daily Florastor 250 mg PO 2x/day Zofran 4 mg IV Q6H PRN N/V Dilaudid 0.5 mg IV Q4H PRN Severe Pain Cyproheptadine 4 mg PO 2x/day Benzocaine/Menthol 1 love Q2H PRN sore throat Jonnathan Malin D.O. Objective - Vital Signs/Intake and Output Vital Signs (last 24 hours): Temp Pulse Resp BP Pulse Ox 98.2 F 78 19 94/45 L 92 L 07/17/17 04:00 07/17/17 08:07 07/17/17 08:07 07/17/17 08:07 07/17/17 08:00 Intake and Output: 07/17/17 07/17/17 06:59 18:59 Intake Total 1490 260 Output Total 400 55 Balance 1090 205 - Medications Medications: Current Medications Ascorbic Acid (Vitamin C 250 Mg Tab) 250 mg PO DAILY [facility] Last Admin: 07/16/17 09:38 Dose: 250 mg Benzocaine/Menthol (Cepacol Sore Throat) 1 love MT Q2 PRN PRN Reason: Sore Throat Clopidogrel Bisulfate (Plavix) 75 mg PO DAILY [facility] Cyproheptadine HCl (Periactin) 4 mg PO BID [facility] Last Admin: 07/16/17 18:36 Dose: Not Given Donepezil HCl (Aricept) 10 mg PO HS [facility] Last Admin: 07/16/17 21:13 Dose: 10 mg Ferrous Sulfate (Feosol) 325 mg PO Q12H [facility] Last Admin: 07/17/17 06:00 Dose: 325 mg Gemfibrozil (Lopid) 600 mg PO BID [facility] Last Admin: 07/16/17 18:36 Dose: Not Given Home Med (Fesoterodine Fumarate [Toviaz]) 8 mg PO DAILY [facility] Hydromorphone HCl (Dilaudid) 0.5 mg IVP Q4 PRN PRN Reason: Pain, severe (8-10) Last Admin: 07/17/17 05:00 Dose: 0.5 mg Sodium Chloride (Sodium Chloride 0.9%) 1,000 mls @ 100 mls/hr IV .Q10H [facility] Last Admin: 07/17/17 06:02 Dose: 100 mls/hr Diltiazem HCl 125 mg/ Dextrose 125 mls @ 5 mls/hr IV .Q24H [facility]; 5 MG/HR PRN Reason: Protocol Last Titration: 07/17/17 08:46 Dose: 2.5 mg/hr, 2.5 mls/hr Tigecycline 100 mg/ Sodium (Chloride) 100 mls @ 100 mls/hr IVPB ONCE ONE Stop: 07/17/17 09:40 Tigecycline 50 mg/ Dextrose 100 mls @ 100 mls/hr IVPB Q12H [facility] Insulin Human Regular (Novolin R) 0 unit SC ACHS [facility] PRN Reason: Protocol Last Admin: 07/17/17 08:37 Dose: 2 unit Latanoprost (Xalatan Opht) 0 ml OU HS [facility] Last Admin: 07/16/17 21:15 Dose: 2.5 ml Levothyroxine Sodium (Synthroid) 50 mcg PO DAILY@0630 [facility] Last Admin: 07/17/17 07:27 Dose: 50 mcg Meclizine HCl (Antivert) 12.5 mg PO TID [facility] Last Admin: 07/16/17 18:36 Dose: Not Given Metoprolol Succinate (Toprol Xl) 100 mg PO DAILY [facility] Last Admin: 07/14/17 13:41 Dose: 100 mg Ondansetron HCl (Zofran Inj) 4 mg IVP Q6 PRN PRN Reason: Nausea/Vomiting Pantoprazole Sodium (Protonix Inj) 40 mg IVP DAILY [facility] Last Admin: 07/16/17 09:32 Dose: 40 mg Rosuvastatin Calcium (Crestor) 10 mg PO HS [facility] Last Admin: 07/16/17 21:14 Dose: 10 mg Saccharomyces Boulardii (Florastor) 250 mg PO BID [facility] Last Admin: 07/16/17 18:36 Dose: Not Given - Labs Labs: 07/17/17 06:04 07/17/17 06:04 PT 14.3 SECONDS (9.7-12.2) H 07/16/17 04:00 INR 1.3 07/16/17 04:00 APTT 29 SECONDS (21-34) 07/13/17 20:04
[2017-07-17] MEDS: Saccharomyces Boulardi 250 mg Cap PO SCH ×2 (10:03→17:02)
--- NOTE | 2017-07-17 11:17 | CP.PCM.PN ---
<Buzz Roblero - Last Filed: 07/17/17 11:19> Subjective - Date & Time of Evaluation Date of Evaluation: 07/17/17 Time of Evaluation: 11:15 - Subjective Subjective: Surgery: Dr. Boyce Pt seen and exmained. Resting comfortably in bed. Pain is slightly improved. Pt tolerated CLD overnight. No N/V. Pt has not had BM in several days. Objective - Vital Signs/Intake and Output Vital Signs (last 24 hours): Temp Pulse Resp BP Pulse Ox 99.4 F 75 23 91/44 L 94 L 07/17/17 08:00 07/17/17 11:00 07/17/17 11:00 07/17/17 10:07 07/17/17 11:00 Intake and Output: 07/17/17 07/17/17 06:59 18:59 Intake Total 1490 567.5 Output Total 400 135 Balance 1090 432.5 - Medications Medications: Current Medications Ascorbic Acid (Vitamin C 250 Mg Tab) 250 mg PO DAILY [facility] Last Admin: 07/17/17 10:03 Dose: 250 mg Benzocaine/Menthol (Cepacol Sore Throat) 1 love MT Q2 PRN PRN Reason: Sore Throat Bisacodyl (Dulcolax) 10 mg NC ONCE ONE Stop: 07/17/17 10:29 Clopidogrel Bisulfate (Plavix) 75 mg PO DAILY [facility] Cyproheptadine HCl (Periactin) 4 mg PO BID [facility] Last Admin: 07/17/17 10:03 Dose: 4 mg Donepezil HCl (Aricept) 10 mg PO HS [facility] Last Admin: 07/16/17 21:13 Dose: 10 mg Ferrous Sulfate (Feosol) 325 mg PO Q12H [facility] Last Admin: 07/17/17 06:00 Dose: 325 mg Gemfibrozil (Lopid) 600 mg PO BID [facility] Last Admin: 07/17/17 10:03 Dose: 600 mg Home Med (Fesoterodine Fumarate [Toviaz]) 8 mg PO DAILY [facility] Hydromorphone HCl (Dilaudid) 0.5 mg IVP Q4 PRN PRN Reason: Pain, severe (8-10) Last Admin: 07/17/17 08:56 Dose: 0.5 mg Sodium Chloride (Sodium Chloride 0.9%) 1,000 mls @ 100 mls/hr IV .Q10H [facility] Last Admin: 07/17/17 06:02 Dose: 100 mls/hr Diltiazem HCl 125 mg/ Dextrose 125 mls @ 5 mls/hr IV .Q24H [facility]; 5 MG/HR PRN Reason: Protocol Last Titration: 07/17/17 08:46 Dose: 2.5 mg/hr, 2.5 mls/hr Tigecycline 100 mg/ Sodium (Chloride) 100 mls @ 100 mls/hr IVPB ONCE ONE Stop: 07/17/17 09:40 Tigecycline 50 mg/ Dextrose 100 mls @ 100 mls/hr IVPB Q12H [facility] Insulin Human Regular (Novolin R) 0 unit SC ACHS [facility] PRN Reason: Protocol Last Admin: 07/17/17 08:37 Dose: 2 unit Latanoprost (Xalatan Opht) 0 ml OU HS [facility] Last Admin: 07/16/17 21:15 Dose: 2.5 ml Levothyroxine Sodium (Synthroid) 50 mcg PO DAILY@0630 [facility] Last Admin: 07/17/17 07:27 Dose: 50 mcg Meclizine HCl (Antivert) 12.5 mg PO TID [facility] Last Admin: 07/17/17 10:03 Dose: 12.5 mg Metoprolol Succinate (Toprol Xl) 100 mg PO DAILY [facility] Last Admin: 07/14/17 13:41 Dose: 100 mg Ondansetron HCl (Zofran Inj) 4 mg IVP Q6 PRN PRN Reason: Nausea/Vomiting Pantoprazole Sodium (Protonix Inj) 40 mg IVP DAILY [facility] Last Admin: 07/17/17 10:04 Dose: 40 mg Rosuvastatin Calcium (Crestor) 10 mg PO HS [facility] Last Admin: 07/16/17 21:14 Dose: 10 mg Saccharomyces Boulardii (Florastor) 250 mg PO BID [facility] Last Admin: 07/17/17 10:03 Dose: 250 mg - Labs Labs: 07/17/17 06:04 07/17/17 06:04 PT 14.3 SECONDS (9.7-12.2) H 07/16/17 04:00 INR 1.3 07/16/17 04:00 APTT 29 SECONDS (21-34) 07/13/17 20:04 - Constitutional Appears: Non-toxic, No Acute Distress - Head Exam Head Exam: ATRAUMATIC, NORMOCEPHALIC - Eye Exam Eye Exam: EOMI - ENT Exam ENT Exam: Mucous Membranes Moist - Neck Exam Neck Exam: Full ROM - Respiratory Exam Respiratory Exam: NORMAL BREATHING PATTERN. absent: Accessory Muscle Use, Respiratory Distress - GI/Abdominal Exam GI & Abdominal Exam: Distended (mild), Firm, Soft, Tenderness (mild upper quadrants). absent: Guarding, Rigid, Rebound - Extremities Exam Extremities Exam: absent: Calf Tenderness, Pedal Edema - Neurological Exam Neurological Exam: Alert, Awake - Psychiatric Exam Psychiatric exam: Normal Affect, Normal Mood - Skin Skin Exam: Dry, Normal Color, Warm Assessment and Plan - Assessment and Plan (Free Text) Assessment: 82M s/p ERCP w. subcapsular/extracapsular air -CT: No signs of bowel perforation -Tolerated CLD, will advance to fulls, advance as tolerated -No BM since 07/14, will give dulcolax suppository -c/w abx -c/w serial abd exams -will continue to follow -d/w attending Zelinnitis PGY3 <Manohar Boyce B - Last Filed: 07/19/17 16:13> Objective - Vital Signs/Intake and Output Vital Signs (last 24 hours): Temp Pulse Resp BP Pulse Ox 97.9 F 81 39 H 105/45 L 100 07/19/17 12:00 07/19/17 14:26 07/19/17 14:26 07/19/17 14:26 07/19/17 14:26 Intake and Output: 07/19/17 07/19/17 06:59 18:59 Intake Total 566.7 Output Total 625 Balance -58.3 - Medications Medications: Current Medications Ascorbic Acid (Vitamin C 250 Mg Tab) 250 mg PO DAILY [facility] Last Admin: 07/19/17 09:17 Dose: 250 mg Benzocaine/Menthol (Cepacol Sore Throat) 1 love MT Q2 PRN PRN Reason: Sore Throat Last Admin: 07/17/17 20:25 Dose: 1 love Calcium Acetate (Phoslo) 667 mg PO TID [facility] Last Admin: 07/19/17 13:59 Dose: 667 mg Clopidogrel Bisulfate (Plavix) 75 mg PO DAILY [facility] Cyproheptadine HCl (Periactin) 4 mg PO BID [facility] Last Admin: 07/19/17 09:17 Dose: 4 mg Donepezil HCl (Aricept) 10 mg PO HS [facility] Last Admin: 07/18/17 21:19 Dose: 10 mg Ferrous Sulfate (Feosol) 325 mg PO Q12H [facility] Last Admin: 07/19/17 06:04 Dose: 325 mg Gemfibrozil (Lopid) 600 mg PO BID [facility] Last Admin: 07/19/17 09:17 Dose: 600 mg Home Med (Fesoterodine Fumarate [Toviaz]) 8 mg PO DAILY [facility] Tigecycline 50 mg/ Dextrose 100 mls @ 100 mls/hr IVPB Q12H [facility] Last Admin: 07/19/17 12:23 Dose: 100 mls/hr Metronidazole 250 mg/ (Miscellaneous) 50 mls @ 100 mls/hr IVPB Q8 [facility] Last Admin: 07/19/17 13:59 Dose: 100 mls/hr Insulin Human Regular (Novolin R) 0 unit SC [facility] PRN Reason: Protocol Last Admin: 07/19/17 12:25 Dose: 5 unit Latanoprost (Xalatan Opht) 0 ml OU HS [facility] Last Admin: 07/18/17 21:19 Dose: 2.5 ml Levothyroxine Sodium (Synthroid) 50 mcg PO DAILY@0630 [facility] Last Admin: 07/19/17 06:04 Dose: 50 mcg Meclizine HCl (Antivert) 12.5 mg PO TID [facility] Last Admin: 07/19/17 13:59 Dose: 12.5 mg Metoprolol Succinate (Toprol Xl) 100 mg PO DAILY [facility] Last Admin: 07/14/17 13:41 Dose: 100 mg Morphine Sulfate (Morphine) 0.5 mg IVP Q6H PRN PRN Reason: Pain, severe (8-10) Last Admin: 07/19/17 13:10 Dose: 0.5 mg Ondansetron HCl (Zofran Inj) 4 mg IVP Q6 PRN PRN Reason: Nausea/Vomiting Pantoprazole Sodium (Protonix Inj) 40 mg IVP DAILY [facility] Last Admin: 07/19/17 09:16 Dose: 40 mg Rosuvastatin Calcium (Crestor) 10 mg PO HS [facility] Last Admin: 07/18/17 21:19 Dose: 10 mg Saccharomyces Boulardii (Florastor) 250 mg PO BID [facility] Last Admin: 07/19/17 09:18 Dose: 250 mg - Labs Labs: 07/19/17 06:45 07/19/17 06:45 PT 14.3 SECONDS (9.7-12.2) H 07/16/17 04:00 INR 1.3 07/16/17 04:00 APTT 29 SECONDS (21-34) 07/13/17 20:04 Attending/Attestation - Attestation I have personally seen and examined this patient.: Yes I have fully participated in the care of the patient.: Yes I have reviewed all pertinent clinical information, including history, physical exam and plan: Yes Notes (Text): 07/19/17 16:02 Pt was seen and examined at bedside Agree with above note and assessment Pt with more abdominal pain and distention Pt has no BM for last 3-4 days Pt with Ileus AXR Enema tid C/w current mx Plan d.w pt in detail
[2017-07-17] MEDS ORDERED: Tigecycline 100 MG in Dextrose 5% In Water 100 ML IVPB ONE (13:00)
[2017-07-17] MEDS ORDERED: diltiaZEM 120 mg/24 Hours CD Cap PO SCH (13:15)
--- NOTE | 2017-07-17 14:24 | CP.PCM.PN ---
Subjective - Date & Time of Evaluation Date of Evaluation: 07/17/17 Time of Evaluation: 14:21 - Subjective Subjective: Still with abdominal pains On treatment for VRE bacteremia Na decreased to 125; likely dilutional creat stable TNIs positive on cardizem gtt for AFib [id number] Objective - Vital Signs/Intake and Output Vital Signs (last 24 hours): Temp Pulse Resp BP Pulse Ox 99.4 F 79 22 93/45 L 94 L 07/17/17 08:00 07/17/17 13:00 07/17/17 13:00 07/17/17 12:26 07/17/17 12:26 Intake and Output: 07/17/17 07/17/17 06:59 18:59 Intake Total 1490 567.5 Output Total 400 135 Balance 1090 432.5 - Medications Medications: Current Medications Ascorbic Acid (Vitamin C 250 Mg Tab) 250 mg PO DAILY [facility] Last Admin: 07/17/17 10:03 Dose: 250 mg Benzocaine/Menthol (Cepacol Sore Throat) 1 love MT Q2 PRN PRN Reason: Sore Throat Clopidogrel Bisulfate (Plavix) 75 mg PO DAILY [facility] Cyproheptadine HCl (Periactin) 4 mg PO BID [facility] Last Admin: 07/17/17 10:03 Dose: 4 mg Diltiazem HCl (Cardizem Cd) 120 mg PO DAILY [facility] Donepezil HCl (Aricept) 10 mg PO HS [facility] Last Admin: 07/16/17 21:13 Dose: 10 mg Ferrous Sulfate (Feosol) 325 mg PO Q12H [facility] Last Admin: 07/17/17 06:00 Dose: 325 mg Gemfibrozil (Lopid) 600 mg PO BID [facility] Last Admin: 07/17/17 10:03 Dose: 600 mg Home Med (Fesoterodine Fumarate [Toviaz]) 8 mg PO DAILY [facility] Hydromorphone HCl (Dilaudid) 0.5 mg IVP Q4 PRN PRN Reason: Pain, severe (8-10) Last Admin: 07/17/17 08:56 Dose: 0.5 mg Sodium Chloride (Sodium Chloride 0.9%) 1,000 mls @ 100 mls/hr IV .Q10H [facility] Last Admin: 07/17/17 11:27 Dose: Not Given Diltiazem HCl 125 mg/ Dextrose 125 mls @ 5 mls/hr IV .Q24H [facility]; 5 MG/HR PRN Reason: Protocol Last Titration: 07/17/17 08:46 Dose: 2.5 mg/hr, 2.5 mls/hr Tigecycline 50 mg/ Dextrose 100 mls @ 100 mls/hr IVPB Q12H [facility] Insulin Human Regular (Novolin R) 0 unit SC ACHS [facility] PRN Reason: Protocol Last Admin: 07/17/17 12:25 Dose: 2 unit Latanoprost (Xalatan Opht) 0 ml OU HS [facility] Last Admin: 07/16/17 21:15 Dose: 2.5 ml Levothyroxine Sodium (Synthroid) 50 mcg PO DAILY@0630 [facility] Last Admin: 07/17/17 07:27 Dose: 50 mcg Meclizine HCl (Antivert) 12.5 mg PO TID [facility] Last Admin: 07/17/17 10:03 Dose: 12.5 mg Metoprolol Succinate (Toprol Xl) 100 mg PO DAILY [facility] Last Admin: 07/14/17 13:41 Dose: 100 mg Ondansetron HCl (Zofran Inj) 4 mg IVP Q6 PRN PRN Reason: Nausea/Vomiting Pantoprazole Sodium (Protonix Inj) 40 mg IVP DAILY [facility] Last Admin: 07/17/17 10:04 Dose: 40 mg Rosuvastatin Calcium (Crestor) 10 mg PO HS [facility] Last Admin: 07/16/17 21:14 Dose: 10 mg Saccharomyces Boulardii (Florastor) 250 mg PO BID [facility] Last Admin: 07/17/17 10:03 Dose: 250 mg - Labs Labs: 07/17/17 06:04 07/17/17 06:04 PT 14.3 SECONDS (9.7-12.2) H 07/16/17 04:00 INR 1.3 07/16/17 04:00 APTT 29 SECONDS (21-34) 07/13/17 20:04 - Constitutional Appears: In Acute Distress, Chronically Ill - Head Exam Head Exam: ATRAUMATIC, NORMAL INSPECTION - Eye Exam Eye Exam: EOMI, Normal appearance - Neck Exam Neck Exam: Normal Inspection. absent: Tenderness - Respiratory Exam Respiratory Exam: Wheezes - Cardiovascular Exam Cardiovascular Exam: Irregular Rhythm, +S1 - GI/Abdominal Exam GI & Abdominal Exam: Soft, Tenderness - Extremities Exam Extremities Exam: Normal Inspection. absent: Tenderness - Neurological Exam Neurological Exam: Awake, CN II-XII Intact - Skin Skin Exam: Dry, Warm Assessment and Plan (1) Hx of stroke without residual deficits Status: Acute (2) History of hypertension Status: Chronic (3) JAY JAY (acute kidney injury) Status: Acute (4) Type 2 diabetes mellitus with diabetic nephropathy Status: Acute (5) Chronic kidney disease, stage III (moderate) Status: Acute (6) Proteinuria Status: Acute (7) Hyponatremia with excess extracellular fluid volume Status: Acute - Assessment and Plan (Free Text) Plan: check urine osm, na add IV lasix serial chemistries
[2017-07-17 15:54] LABS: RBC URINE 14 /hpf (0-3); URINE BILIRUBIN NEGATIVE (NEGATIVE); URINE BLOOD 2+ (NEGATIVE); URINE COLOR Yellow (YELLOW); URINE GLUCOSE (UA) 1+ mg/dL (Normal); URINE KETONE NEGATIVE (NEGATIVE); URINE LEUKOCYTE ESTERASE 1+ Leu/uL (Negative); URINE PROTEIN 1+ mg/dL (NEGATIVE); URINE UROBILINOGEN NORMAL mg/dL (0.2-1.0); WBC URINE 42 /hpf (0-5)
--- NOTE | 2017-07-17 16:20 | CP.CCUPN ---
<Effie Vogt Noemi - Last Filed: 07/17/17 17:48> CCU Subjective - Physician Review Subjective (Free Text): Patient seen and examined at bedside. Patient says he is still having generalized abdominal pain. Patient denies chest pain, nausea, vomiting. Patient admits to constipation. Full ROS unobtainable due to patient's dementia. 07/17/17 16:22 CCU Objective - Vital Signs / Intake & Output Vital Signs (Last 4 hours): Vital Signs Pulse Resp BP Pulse Ox 07/17/17 15:27 86 28 H 119/52 L 92 L 07/17/17 14:26 92/53 L 07/17/17 13:26 79 24 100/52 L 07/17/17 13:00 79 22 07/17/17 12:26 76 20 93/45 L 94 L 07/17/17 12:07 81 20 93 L Intake and Output (Last 8hrs): Intake & Output 07/17/17 07/17/17 07/17/17 06:59 14:59 22:59 Intake Total 840 1025.0 202.5 Output Total 250 190 20 Balance 590 835.0 182.5 Intake: IV 50 Intake, IV Amount 840 825.0 102.5 Right Medial Port 40 25.0 2.5 Internal Jugular Right Proximal Port 800 800 100 Internal Jugular Oral 150 100 Output: Urine 250 190 20 Urethral (Pachceo) 250 190 20 Other: # Bowel Movements 0 1 - Physical Exam Head: Positive for: Atraumatic, Normocephalic Pupils: Positive for: PERRL Extroacular Muscles: Positive for: EOMI Mouth: Positive for: Dry Respiratory/Chest: Positive for: Rhonchi. Negative for: Respiratory Distress, Accessory Muscle Use Cardiovascular: Positive for: Normal S1, S2 Abdomen: Positive for: Tenderness, Distention Lower Extremity: Negative for: Edema Neurological: Positive for: GCS=15 Skin: Positive for: Warm, Normal Color Psychiatric: Positive for: Alert. Negative for: Oriented x 3 - Medications Active Medications: Active Medications Generic Name Dose Route Start Last Admin Trade Name Freq PRN Reason Stop Dose Admin Ascorbic Acid 250 mg 07/14/17 10:00 07/17/17 10:03 Vitamin C 250 Mg Tab PO 250 mg DAILY DARINEL Administration Benzocaine/Menthol 1 lvoe 07/14/17 04:24 Cepacol Sore Throat MT Q2 PRN Sore Throat Clopidogrel Bisulfate 75 mg 07/14/17 10:00 Plavix PO DAILY DARINEL Cyproheptadine HCl 4 mg 07/14/17 10:00 07/17/17 10:03 Periactin PO 4 mg BID DARINEL Administration Diltiazem HCl 120 mg 07/17/17 13:15 07/17/17 15:04 Cardizem Cd PO 120 mg DAILY DARINEL Administration Donepezil HCl 10 mg 07/13/17 22:00 07/16/17 21:13 Aricept PO 10 mg HS DARINEL Administration Ferrous Sulfate 325 mg 07/13/17 18:45 07/17/17 06:00 Feosol PO 325 mg Q12H DARINEL Administration Furosemide 20 mg 07/17/17 18:00 Lasix IVP BID DARINEL Gemfibrozil 600 mg 07/14/17 10:00 07/17/17 10:03 Lopid PO 600 mg BID DARINEL Administration Home Med 8 mg 07/14/17 10:00 Fesoterodine Fumarate [Toviaz] PO DAILY DARINEL Hydromorphone HCl 0.5 mg 07/15/17 11:15 07/17/17 15:58 Dilaudid IVP 0.5 mg Q4 PRN Administration Pain, severe (8-10) Sodium Chloride 1,000 mls @ 100 mls/hr 07/15/17 09:00 07/17/17 11:27 Sodium Chloride 0.9% IV Not Given .Q10H DARINEL Diltiazem HCl 125 mg/ Dextrose 125 mls @ 5 mls/hr 07/16/17 21:45 07/17/17 08: 46 IV 2.5 mg/hr .Q24H DARINEL 2.5 mls/hr Protocol Titration 5 MG/HR Tigecycline 50 mg/ Dextrose 100 mls @ 100 mls/hr 07/18/17 01:00 IVPB Q12H DARINEL Insulin Human Regular 0 unit 07/17/17 07:30 07/17/17 12:25 Novolin R SC 2 unit ACHS DARINEL Administration Protocol Latanoprost 0 ml 07/13/17 22:00 07/16/17 21:15 Xalatan Opht OU 2.5 ml HS DARINEL Administration Levothyroxine Sodium 50 mcg 07/14/17 06:30 07/17/17 07:27 Synthroid PO 50 mcg DAILY@0630 DARINEL Administration Meclizine HCl 12.5 mg 07/14/17 10:00 07/17/17 15:28 Antivert PO 12.5 mg TID DARINEL Administration Metoprolol Succinate 100 mg 07/13/17 21:59 07/14/17 13:41 Toprol Xl PO 100 mg DAILY DARINEL Administration Ondansetron HCl 4 mg 07/14/17 00:38 Zofran Inj IVP Q6 PRN Nausea/Vomiting Pantoprazole Sodium 40 mg 07/14/17 10:00 07/17/17 10:04 Protonix Inj IVP 40 mg DAILY DARINEL Administration Rosuvastatin Calcium 10 mg 07/13/17 22:00 07/16/17 21:14 Crestor PO 10 mg HS DARINEL Administration Saccharomyces Boulardii 250 mg 07/14/17 10:00 07/17/17 10:03 Florastor PO 250 mg BID DARINEL Administration - Patient Studies Lab Studies: Microbiology Studies 07/14/17 08:50 S.aureus & Coag-Neg Staph PNA FISH - Final Blood-Venous Blood Culture - Final Enterococcus Faecium Gram Stain - Final 07/14/17 08:50 Blood Culture - Preliminary Blood-Venous Enterococcus Faecium Gram Stain - Final 07/14/17 08:50 Urine Culture - Final Urine,Clean Catch No Growth (<1,000 CFU/ML) Lab Studies 07/17/17 07/17/17 07/17/17 Range/Units 15:33 15:32 11:48 WBC (4.8-10.8) K/uL RBC (4.40-5.90) Mil/uL Hgb (12.0-18.0) g/dL Hct (35.0-51.0) % MCV (80.0-94.0) fL MCH (27.0-31.0) pg MCHC (33.0-37.0) g/dL RDW (11.5-14.5) % Plt Count (130-400) K/uL MPV (7.2-11.7) fL Neut % (Auto) (50.0-75.0) % Lymph % (Auto) (20.0-40.0) % [place] % (Auto) (0.0-10.0) % Eos % (Auto) (0.0-4.0) % Baso % (Auto) (0.0-2.0) % Neut # (1.8-7.0) K/uL Lymph # (1.0-4.3) K/uL [place] # (0.0-0.8) K/uL Eos # (0.0-0.7) K/uL Baso # (0.0-0.2) K/uL Sodium (132-148) mmol/L Potassium (3.6-5.2) mmol/L Chloride (98-107) mmol/L Carbon Dioxide (22-30) mmol/L Anion Gap (10-20) BUN (9-20) mg/dL Creatinine (0.8-1.5) mg/dL Est GFR ( Amer) Est GFR (Non-Af Amer) POC Glucose (mg/dL) (65-110) mg/dL Random Glucose (75-110) mg/dL Uric Acid 8.7 H (3.5-8.5) mg/dL Calcium (8.6-10.4) mg/dl Phosphorus (2.5-4.5) mg/dL Magnesium (1.6-2.3) mg/dL Total Bilirubin (0.2-1.3) mg/dL AST (17-59) U/L ALT (21-72) U/L Alkaline Phosphatase (38-126) U/L Troponin I 0.3280 H* (0.00-0.120) ng/mL Total Protein (6.3-8.3) g/dL Albumin (3.5-5.0) g/dL Globulin (2.2-3.9) gm/dL Albumin/Globulin Ratio (1.0-2.1) Free PSA ng/mL % Free PSA (>25) Percent Total PSA (<=4.0) ng/mL Prostate Cancer Risk Percent Urine Osmolality 265 L (300-1000) mosm/kg Random Vancomycin ug/mL Mycoplasma pneumon IgM (<770) U/mL 07/17/17 07/17/17 07/17/17 Range/Units 11:12 07:44 06:04 WBC (4.8-10.8) K/uL RBC (4.40-5.90) Mil/uL Hgb (12.0-18.0) g/dL Hct (35.0-51.0) % MCV (80.0-94.0) fL MCH (27.0-31.0) pg MCHC (33.0-37.0) g/dL RDW (11.5-14.5) % Plt Count (130-400) K/uL MPV (7.2-11.7) fL Neut % (Auto) (50.0-75.0) % Lymph % (Auto) (20.0-40.0) % [place] % (Auto) (0.0-10.0) % Eos % (Auto) (0.0-4.0) % Baso % (Auto) (0.0-2.0) % Neut # (1.8-7.0) K/uL Lymph # (1.0-4.3) K/uL [place] # (0.0-0.8) K/uL Eos # (0.0-0.7) K/uL Baso # (0.0-0.2) K/uL Sodium 125 L (132-148) mmol/L Potassium 3.6 (3.6-5.2) mmol/L Chloride 93 L (98-107) mmol/L Carbon Dioxide 21 L (22-30) mmol/L Anion Gap 15 (10-20) BUN 39 H (9-20) mg/dL Creatinine 2.2 H (0.8-1.5) mg/dL Est GFR ( Amer) 35 Est GFR (Non-Af Amer) 29 POC Glucose (mg/dL) 227 H 217 H (65-110) mg/dL Random Glucose 181 H (75-110) mg/dL Uric Acid (3.5-8.5) mg/dL Calcium 7.7 L (8.6-10.4) mg/dl Phosphorus 3.3 (2.5-4.5) mg/dL Magnesium 2.3 (1.6-2.3) mg/dL Total Bilirubin 0.6 (0.2-1.3) mg/dL AST 23 (17-59) U/L ALT 43 (21-72) U/L Alkaline Phosphatase 53 (38-126) U/L Troponin I 0.3140 H* (0.00-0.120) ng/mL Total Protein 6.1 L (6.3-8.3) g/dL Albumin 2.9 L (3.5-5.0) g/dL Globulin 3.2 (2.2-3.9) gm/dL Albumin/Globulin Ratio 0.9 L (1.0-2.1) Free PSA ng/mL % Free PSA (>25) Percent Total PSA (<=4.0) ng/mL Prostate Cancer Risk Percent Urine Osmolality (300-1000) mosm/kg Random Vancomycin ug/mL Mycoplasma pneumon IgM (<770) U/mL 07/17/17 07/17/17 07/16/17 Range/Units 06:04 06:04 17:45 WBC 12.3 H (4.8-10.8) K/uL RBC 3.21 L (4.40-5.90) Mil/uL Hgb 9.1 L (12.0-18.0) g/dL Hct 27.1 L (35.0-51.0) % MCV 84.5 (80.0-94.0) fL MCH 28.4 (27.0-31.0) pg MCHC 33.7 (33.0-37.0) g/dL RDW 15.1 H (11.5-14.5) % Plt Count 203 (130-400) K/uL MPV 9.1 (7.2-11.7) fL Neut % (Auto) 81.3 H (50.0-75.0) % Lymph % (Auto) 10.2 L (20.0-40.0) % [place] % (Auto) 6.9 (0.0-10.0) % Eos % (Auto) 1.1 (0.0-4.0) % Baso % (Auto) 0.5 (0.0-2.0) % Neut # 10.0 H (1.8-7.0) K/uL Lymph # 1.3 (1.0-4.3) K/uL [place] # 0.8 (0.0-0.8) K/uL Eos # 0.1 (0.0-0.7) K/uL Baso # 0.1 (0.0-0.2) K/uL Sodium (132-148) mmol/L Potassium (3.6-5.2) mmol/L Chloride (98-107) mmol/L Carbon Dioxide (22-30) mmol/L Anion Gap (10-20) BUN (9-20) mg/dL Creatinine (0.8-1.5) mg/dL Est GFR ( Amer) Est GFR (Non-Af Amer) POC Glucose (mg/dL) 175 H (65-110) mg/dL Random Glucose (75-110) mg/dL Uric Acid (3.5-8.5) mg/dL Calcium (8.6-10.4) mg/dl Phosphorus (2.5-4.5) mg/dL Magnesium (1.6-2.3) mg/dL Total Bilirubin (0.2-1.3) mg/dL AST (17-59) U/L ALT (21-72) U/L Alkaline Phosphatase (38-126) U/L Troponin I (0.00-0.120) ng/mL Total Protein (6.3-8.3) g/dL Albumin (3.5-5.0) g/dL Globulin (2.2-3.9) gm/dL Albumin/Globulin Ratio (1.0-2.1) Free PSA ng/mL % Free PSA (>25) Percent Total PSA (<=4.0) ng/mL Prostate Cancer Risk Percent Urine Osmolality (300-1000) mosm/kg Random Vancomycin 13.00 ug/mL Mycoplasma pneumon IgM (<770) U/mL 07/15/17 07/14/17 Range/Units 08:29 11:23 WBC (4.8-10.8) K/uL RBC (4.40-5.90) Mil/uL Hgb (12.0-18.0) g/dL Hct (35.0-51.0) % MCV (80.0-94.0) fL MCH (27.0-31.0) pg MCHC (33.0-37.0) g/dL RDW (11.5-14.5) % Plt Count (130-400) K/uL MPV (7.2-11.7) fL Neut % (Auto) (50.0-75.0) % Lymph % (Auto) (20.0-40.0) % [place] % (Auto) (0.0-10.0) % Eos % (Auto) (0.0-4.0) % Baso % (Auto) (0.0-2.0) % Neut # (1.8-7.0) K/uL Lymph # (1.0-4.3) K/uL [place] # (0.0-0.8) K/uL Eos # (0.0-0.7) K/uL Baso # (0.0-0.2) K/uL Sodium (132-148) mmol/L Potassium (3.6-5.2) mmol/L Chloride (98-107) mmol/L Carbon Dioxide (22-30) mmol/L Anion Gap (10-20) BUN (9-20) mg/dL Creatinine (0.8-1.5) mg/dL Est GFR ( Amer) Est GFR (Non-Af Amer) POC Glucose (mg/dL) (65-110) mg/dL Random Glucose (75-110) mg/dL Uric Acid (3.5-8.5) mg/dL Calcium (8.6-10.4) mg/dl Phosphorus (2.5-4.5) mg/dL Magnesium (1.6-2.3) mg/dL Total Bilirubin (0.2-1.3) mg/dL AST (17-59) U/L ALT (21-72) U/L Alkaline Phosphatase (38-126) U/L Troponin I (0.00-0.120) ng/mL Total Protein (6.3-8.3) g/dL Albumin (3.5-5.0) g/dL Globulin (2.2-3.9) gm/dL Albumin/Globulin Ratio (1.0-2.1) Free PSA 13.8 ng/mL % Free PSA Not calculated (>25) Percent Total PSA 23.3 H (<=4.0) ng/mL Prostate Cancer Risk >50 Percent Urine Osmolality (300-1000) mosm/kg Random Vancomycin ug/mL Mycoplasma pneumon IgM 81 (<770) U/mL Laboratory Results - last 24 hr 07/14/17 07/15/17 07/16/17 11:23 08:29 17:45 WBC RBC Hgb Hct MCV MCH MCHC RDW Plt Count MPV Neut % (Auto) Lymph % (Auto) [place] % (Auto) Eos % (Auto) Baso % (Auto) Neut # Lymph # [place] # Eos # Baso # Sodium Potassium Chloride Carbon Dioxide Anion Gap BUN Creatinine Est GFR ( Amer) Est GFR (Non-Af Amer) POC Glucose (mg/dL) 175 H Random Glucose Uric Acid Calcium Phosphorus Magnesium Total Bilirubin AST ALT Alkaline Phosphatase Troponin I Total Protein Albumin Globulin Albumin/Globulin Ratio Free PSA 13.8 % Free PSA Not calculated Total PSA 23.3 H Prostate Cancer Risk >50 Urine Osmolality Random Vancomycin Mycoplasma pneumon IgM 81 07/17/17 07/17/17 07/17/17 06:04 06:04 06:04 WBC 12.3 H RBC 3.21 L Hgb 9.1 L Hct 27.1 L MCV 84.5 MCH 28.4 MCHC 33.7 RDW 15.1 H Plt Count 203 MPV 9.1 Neut % (Auto) 81.3 H Lymph % (Auto) 10.2 L [place] % (Auto) 6.9 Eos % (Auto) 1.1 Baso % (Auto) 0.5 Neut # 10.0 H Lymph # 1.3 [place] # 0.8 Eos # 0.1 Baso # 0.1 Sodium 125 L Potassium 3.6 Chloride 93 L Carbon Dioxide 21 L Anion Gap 15 BUN 39 H Creatinine 2.2 H Est GFR ( Amer) 35 Est GFR (Non-Af Amer) 29 POC Glucose (mg/dL) Random Glucose 181 H Uric Acid Calcium 7.7 L Phosphorus 3.3 Magnesium 2.3 Total Bilirubin 0.6 AST 23 ALT 43 Alkaline Phosphatase 53 Troponin I 0.3140 H* Total Protein 6.1 L Albumin 2.9 L Globulin 3.2 Albumin/Globulin Ratio 0.9 L Free PSA % Free PSA Total PSA Prostate Cancer Risk Urine Osmolality Random Vancomycin 13.00 Mycoplasma pneumon IgM 07/17/17 07/17/17 07/17/17 07:44 11:12 11:48 WBC RBC Hgb Hct MCV MCH MCHC RDW Plt Count MPV Neut % (Auto) Lymph % (Auto) [place] % (Auto) Eos % (Auto) Baso % (Auto) Neut # Lymph # [place] # Eos # Baso # Sodium Potassium Chloride Carbon Dioxide Anion Gap BUN Creatinine Est GFR ( Amer) Est GFR (Non-Af Amer) POC Glucose (mg/dL) 217 H 227 H Random Glucose Uric Acid Calcium Phosphorus Magnesium Total Bilirubin AST ALT Alkaline Phosphatase Troponin I 0.3280 H* Total Protein Albumin Globulin Albumin/Globulin Ratio Free PSA % Free PSA Total PSA Prostate Cancer Risk Urine Osmolality Random Vancomycin Mycoplasma pneumon IgM 07/17/17 07/17/17 15:32 15:33 WBC RBC Hgb Hct MCV MCH MCHC RDW Plt Count MPV Neut % (Auto) Lymph % (Auto) [place] % (Auto) Eos % (Auto) Baso % (Auto) Neut # Lymph # [place] # Eos # Baso # Sodium Potassium Chloride Carbon Dioxide Anion Gap BUN Creatinine Est GFR ( Amer) Est GFR (Non-Af Amer) POC Glucose (mg/dL) Random Glucose Uric Acid 8.7 H Calcium Phosphorus Magnesium Total Bilirubin AST ALT Alkaline Phosphatase Troponin I Total Protein Albumin Globulin Albumin/Globulin Ratio Free PSA % Free PSA Total PSA Prostate Cancer Risk Urine Osmolality 265 L Random Vancomycin Mycoplasma pneumon IgM EKG/Cardiology Studies: Cardiology / EKG Studies 07/16/17 17:35 EKG [ELECTROCARDIOGRAM] Stat Comment: Mode Of Transportation: Reason For Exam: tachycardia Isolation: Contact 07/17/17 07:30 EKG [ELECTROCARDIOGRAM] Routine Comment: Mode Of Transportation: PORTABLE Reason For Exam: atrial fibrillation ,elevated Troponin Isolation: Contact Fingerstick Blood Sugar Results: 227 Review of Systems - Review of Systems Systems not reviewed;Unavailable: Dementia - Constitutional Constitutional: absent: Fever, Chills, Sweats, Weakness - Cardiovascular Cardiovascular: absent: Chest Pain, Dyspnea - Respiratory Respiratory: absent: Cough, Dyspnea, Wheezing - Gastrointestinal Gastrointestinal: Abdominal Pain, Constipation. 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 Code sepsis called on 07/14/17. Neuro: hx Alzheimer's dementia -Aricept 10 mg PO HS -CT head (07/13): no acute intracranial hemorrhage, or suspicious mass effect Cardio: HTN, hx CVA -Cardiology consulted (Dr. Chau), help appreciated -Home blood pressure medications held because blood pressure low: Amlodipine 10 mg po daily, Metoprolol Succinate 100 mg po daily, Losartan 100 mg PO daily -Plavix 75mg po daily -Crestor 10 mg po HS -Lipitor 80 mg po HS -Gemfibrozil 600 mg po BID -Negative troponins -TSH and free T4 WNL - echo report from 07/13/17 : left ventricular ejection fraction is within the normal range (60%). moderate concentric left ventricular hypertrophy. transmitral doppler flow pattern is gradeI- abnormal relaxation pattern. Mitral annular calcification is mild. Mitral regurgitation is trace. -Patient went into a fib overnight, started on cardizem drip and switched to 120mg cardizem po daily -Troponin I: .3140 at 6:04, .3280 at 11:48, follow up at 17:45 Pulm: bilateral pneumonia -CT Abdomen/Pelvis 07/13/17 showed bibasilar lingular and right middle lobe mild nonspecific infiltrates consistent with atelectasis/pneumonia -CXR 07/14/17 showed left basilar consolidative changes with small left pleural effusion -CXR 07/15/17: small left pleural effusion, bibasilar atelectasis -Meropenem, Cipro, and Vanco -negative influenza A/B, negative urine Legionella -mycoplasma IgM 81, IgG pending GI: abdominal pain likely secondary to gas/ fluid around liver - CT C/A/P showed free air under the right hemidiaphragm and extrahepatic CBD pneumobilia - Surgery consulted (Dr. Boyce) - help appreciated -NPO -NGT in place -CT abdomen and pelvis with IV and PO contrast- showed gas and fluid around left lobe liver and along inferior vena cava that is unchanged, no evidence of extravasation of oral contrast from stomach or duodenem. -Abdominal u/s (07/15): limited sonographic evaluation of the liver for purposes of drainage and did not show the subdiaphragmatic fluid collection see in previous CT -Abdominal xray (07/16): colonic contrast, no mechanical obstruction suggested. -no intervention by IR at this time -constipation, dulcolax 10 mg once ordered : hx overactive bladder -Festerodine 8 mg PO 1x/day -Enlarged Prostate on CT Abdomen/Pelvis -PSA: 23.3 Nephro: CKD stage 3, possible acute on chronic - BUN 38, Cr 2.3, worsening - 2+ urine protein and 2+ urine glucose on U/A 07/14/17 - Nephrology consulted (Dr. Oconnell) -NS @ 100 cc/hr -IV lasix 20 mg BID added Endo: hx of diabetes, hypothyroidism - Random glucose from 112-281 - ISS -accuchecks -Synthroid 50 mcg po daily -TSH and T4 WNL ID: Sepsis secondary to likely biliary or hepatic perforation from recent ERCP - Code sepsis called 07/14 - Lactate 3.0, 21 bands - HCAP pneumonia suspected given recent hospitalization and antibiotic use for buttock abscess - Infectious Disease consulted (Dr. Langford), help appreciated -urine cultures: no growth -Negative MRSA -blood culture: gram positive cocci, Enterococcus Faecium -Tigecycline 50mg q12h PPX: DVT: SCD's, hold chemical anticoagulation due to complications s/p ERCP GI: Protonix 40 mg IV daily florastor <Ulisses Griggs - Last Filed: 07/17/17 18:14> CCU Objective - Vital Signs / Intake & Output Vital Signs (Last 4 hours): Vital Signs Temp Pulse Resp BP Pulse Ox 07/17/17 17:27 123 H 32 H 107/51 L 95 07/17/17 17:01 101/43 L 07/17/17 17:00 92 H 24 93 L 07/17/17 16:26 82 23 101/43 L 94 L 07/17/17 16:00 99.8 F H 88 32 H 95 07/17/17 15:27 86 28 H 119/52 L 92 L 07/17/17 14:26 92/53 L Intake and Output (Last 8hrs): Intake & Output 07/17/17 07/17/17 07/17/17 06:59 14:59 22:59 Intake Total 840 1025.0 607.5 Output Total 250 190 60 Balance 590 835.0 547.5 Intake: IV 50 Intake, IV Amount 840 825.0 407.5 Right Medial Port 40 25.0 7.5 Internal Jugular Right Proximal Port 800 800 400 Internal Jugular Oral 150 200 Output: Urine 250 190 60 Urethral ([place]) 250 190 60 Other: # Bowel Movements 0 1 - Medications Active Medications: Active Medications Generic Name Dose Route Start Last Admin Trade Name Freq PRN Reason Stop Dose Admin Ascorbic Acid 250 mg 07/14/17 10:00 07/17/17 10:03 Vitamin C 250 Mg Tab PO 250 mg DAILY DARINEL Administration Benzocaine/Menthol 1 love 07/14/17 04:24 Cepacol Sore Throat MT Q2 PRN Sore Throat Clopidogrel Bisulfate 75 mg 07/14/17 10:00 Plavix PO DAILY DARINEL Cyproheptadine HCl 4 mg 07/14/17 10:00 07/17/17 17:01 Periactin PO 4 mg BID DARINEL Administration Diltiazem HCl 120 mg 07/17/17 13:15 07/17/17 15:04 Cardizem Cd PO 120 mg DAILY DARINEL Administration Donepezil HCl 10 mg 07/13/17 22:00 07/16/17 21:13 Aricept PO 10 mg HS DARINEL Administration Ferrous Sulfate 325 mg 07/13/17 18:45 07/17/17 18:02 Feosol PO 325 mg Q12H DARINEL Administration Furosemide 20 mg 07/17/17 18:00 07/17/17 17:01 Lasix IVP 20 mg BID DARINEL Administration Gemfibrozil 600 mg 07/14/17 10:00 07/17/17 18:02 Lopid PO 600 mg BID DARINEL Administration Home Med 8 mg 07/14/17 10:00 Fesoterodine Fumarate [Toviaz] PO DAILY DARINEL Hydromorphone HCl 0.5 mg 07/15/17 11:15 07/17/17 15:58 Dilaudid IVP 0.5 mg Q4 PRN Administration Pain, severe (8-10) Sodium Chloride 1,000 mls @ 100 mls/hr 07/15/17 09:00 07/17/17 11:27 Sodium Chloride 0.9% IV Not Given .Q10H DARINEL Tigecycline 50 mg/ Dextrose 100 mls @ 100 mls/hr 07/18/17 01:00 IVPB Q12H DARINEL Insulin Human Regular 0 unit 07/17/17 07:30 07/17/17 16:57 Novolin R SC 2 unit ACHS DARINEL Administration Protocol Latanoprost 0 ml 07/13/17 22:00 07/16/17 21:15 Xalatan Opht OU 2.5 ml HS DARINEL Administration Levothyroxine Sodium 50 mcg 07/14/17 06:30 07/17/17 07:27 Synthroid PO 50 mcg DAILY@0630 DARINEL Administration Meclizine HCl 12.5 mg 07/14/17 10:00 07/17/17 18:02 Antivert PO 12.5 mg TID DARINEL Administration Metoprolol Succinate 100 mg 07/13/17 21:59 07/14/17 13:41 Toprol Xl PO 100 mg DAILY DARINEL Administration Ondansetron HCl 4 mg 07/14/17 00:38 Zofran Inj IVP Q6 PRN Nausea/Vomiting Pantoprazole Sodium 40 mg 07/14/17 10:00 07/17/17 10:04 Protonix Inj IVP 40 mg DAILY DARINEL Administration Rosuvastatin Calcium 10 mg 07/13/17 22:00 07/16/17 21:14 Crestor PO 10 mg HS DARINEL Administration Saccharomyces Boulardii 250 mg 07/14/17 10:00 07/17/17 17:02 Florastor PO 250 mg BID DARINEL Administration - Patient Studies Lab Studies: Microbiology Studies 07/14/17 08:50 S.aureus & Coag-Neg Staph PNA FISH - Final Blood-Venous Blood Culture - Final Enterococcus Faecium Gram Stain - Final 07/14/17 08:50 Blood Culture - Preliminary Blood-Venous Enterococcus Faecium Gram Stain - Final 07/14/17 08:50 Urine Culture - Final Urine,Clean Catch No Growth (<1,000 CFU/ML) Lab Studies 07/17/17 07/17/17 07/17/17 Range/Units 16:40 15:33 15:32 WBC (4.8-10.8) K/uL RBC (4.40-5.90) Mil/uL Hgb (12.0-18.0) g/dL Hct (35.0-51.0) % MCV (80.0-94.0) fL MCH (27.0-31.0) pg MCHC (33.0-37.0) g/dL RDW (11.5-14.5) % Plt Count (130-400) K/uL MPV (7.2-11.7) fL Neut % (Auto) (50.0-75.0) % Lymph % (Auto) (20.0-40.0) % [place] % (Auto) (0.0-10.0) % Eos % (Auto) (0.0-4.0) % Baso % (Auto) (0.0-2.0) % Neut # (1.8-7.0) K/uL Lymph # (1.0-4.3) K/uL [place] # (0.0-0.8) K/uL Eos # (0.0-0.7) K/uL Baso # (0.0-0.2) K/uL Sodium (132-148) mmol/L Potassium (3.6-5.2) mmol/L Chloride (98-107) mmol/L Carbon Dioxide (22-30) mmol/L Anion Gap (10-20) BUN (9-20) mg/dL Creatinine (0.8-1.5) mg/dL Est GFR ( Amer) Est GFR (Non-Af Amer) POC Glucose (mg/dL) 224 H (65-110) mg/dL Random Glucose (75-110) mg/dL Uric Acid 8.7 H (3.5-8.5) mg/dL Calcium (8.6-10.4) mg/dl Phosphorus (2.5-4.5) mg/dL Magnesium (1.6-2.3) mg/dL Total Bilirubin (0.2-1.3) mg/dL AST (17-59) U/L ALT (21-72) U/L Alkaline Phosphatase (38-126) U/L Troponin I (0.00-0.120) ng/mL Total Protein (6.3-8.3) g/dL Albumin (3.5-5.0) g/dL Globulin (2.2-3.9) gm/dL Albumin/Globulin Ratio (1.0-2.1) Free PSA ng/mL % Free PSA (>25) Percent Total PSA (<=4.0) ng/mL Prostate Cancer Risk Percent Urine Color (YELLOW) Urine Clarity (Clear) Urine pH (5.0-8.0) Ur Specific [place] (1.003-1.030) Urine Protein (NEGATIVE) mg/dL Urine Glucose (UA) (Normal) mg/dL Urine Ketones (NEGATIVE) mg/dL Urine Blood (NEGATIVE) Urine Nitrate (NEGATIVE) Urine Bilirubin (NEGATIVE) Urine Urobilinogen (0.2-1.0) mg/dL Ur Leukocyte Esterase (Negative) David/uL Urine WBC (Auto) (0-5) /hpf Urine RBC (Auto) (0-3) /hpf Amorphous Sediment (<OCC) /ul Urine Osmolality 265 L (300-1000) mosm/kg Ur Random Sodium 21 mmol/L Random Vancomycin ug/mL Mycoplasma pneumon IgG (<=0.90) Mycoplasma pneumon IgM (<770) U/mL 07/17/17 07/17/17 07/17/17 Range/Units 15:32 11:48 11:12 WBC (4.8-10.8) K/uL RBC (4.40-5.90) Mil/uL Hgb (12.0-18.0) g/dL Hct (35.0-51.0) % MCV (80.0-94.0) fL MCH (27.0-31.0) pg MCHC (33.0-37.0) g/dL RDW (11.5-14.5) % Plt Count (130-400) K/uL MPV (7.2-11.7) fL Neut % (Auto) (50.0-75.0) % Lymph % (Auto) (20.0-40.0) % [place] % (Auto) (0.0-10.0) % Eos % (Auto) (0.0-4.0) % Baso % (Auto) (0.0-2.0) % Neut # (1.8-7.0) K/uL Lymph # (1.0-4.3) K/uL [place] # (0.0-0.8) K/uL Eos # (0.0-0.7) K/uL Baso # (0.0-0.2) K/uL Sodium (132-148) mmol/L Potassium (3.6-5.2) mmol/L Chloride (98-107) mmol/L Carbon Dioxide (22-30) mmol/L Anion Gap (10-20) BUN (9-20) mg/dL Creatinine (0.8-1.5) mg/dL Est GFR ( Amer) Est GFR (Non-Af Amer) POC Glucose (mg/dL) 227 H (65-110) mg/dL Random Glucose (75-110) mg/dL Uric Acid (3.5-8.5) mg/dL Calcium (8.6-10.4) mg/dl Phosphorus (2.5-4.5) mg/dL Magnesium (1.6-2.3) mg/dL Total Bilirubin (0.2-1.3) mg/dL AST (17-59) U/L ALT (21-72) U/L Alkaline Phosphatase (38-126) U/L Troponin I 0.3280 H* (0.00-0.120) ng/mL Total Protein (6.3-8.3) g/dL Albumin (3.5-5.0) g/dL Globulin (2.2-3.9) gm/dL Albumin/Globulin Ratio (1.0-2.1) Free PSA ng/mL % Free PSA (>25) Percent Total PSA (<=4.0) ng/mL Prostate Cancer Risk Percent Urine Color Yellow (YELLOW) Urine Clarity Hazy (Clear) Urine pH 5.0 (5.0-8.0) Ur Specific [place] 1.009 (1.003-1.030) Urine Protein 1+ H (NEGATIVE) mg/dL Urine Glucose (UA) 1+ H (Normal) mg/dL Urine Ketones Negative (NEGATIVE) mg/dL Urine Blood 2+ H (NEGATIVE) Urine Nitrate Negative (NEGATIVE) Urine Bilirubin Negative (NEGATIVE) Urine Urobilinogen Normal (0.2-1.0) mg/dL Ur Leukocyte Esterase 1+ H (Negative) David/uL Urine WBC (Auto) 42 H (0-5) /hpf Urine RBC (Auto) 14 H (0-3) /hpf Amorphous Sediment Rare H (<OCC) /ul Urine Osmolality (300-1000) mosm/kg Ur Random Sodium mmol/L Random Vancomycin ug/mL Mycoplasma pneumon IgG (<=0.90) Mycoplasma pneumon IgM (<770) U/mL 07/17/17 07/17/17 07/17/17 Range/Units 07:44 06:04 06:04 WBC 12.3 H (4.8-10.8) K/uL RBC 3.21 L (4.40-5.90) Mil/uL Hgb 9.1 L (12.0-18.0) g/dL Hct 27.1 L (35.0-51.0) % MCV 84.5 (80.0-94.0) fL MCH 28.4 (27.0-31.0) pg MCHC 33.7 (33.0-37.0) g/dL RDW 15.1 H (11.5-14.5) % Plt Count 203 (130-400) K/uL MPV 9.1 (7.2-11.7) fL Neut % (Auto) 81.3 H (50.0-75.0) % Lymph % (Auto) 10.2 L (20.0-40.0) % [place] % (Auto) 6.9 (0.0-10.0) % Eos % (Auto) 1.1 (0.0-4.0) % Baso % (Auto) 0.5 (0.0-2.0) % Neut # 10.0 H (1.8-7.0) K/uL Lymph # 1.3 (1.0-4.3) K/uL [place] # 0.8 (0.0-0.8) K/uL Eos # 0.1 (0.0-0.7) K/uL Baso # 0.1 (0.0-0.2) K/uL Sodium 125 L (132-148) mmol/L Potassium 3.6 (3.6-5.2) mmol/L Chloride 93 L (98-107) mmol/L Carbon Dioxide 21 L (22-30) mmol/L Anion Gap 15 (10-20) BUN 39 H (9-20) mg/dL Creatinine 2.2 H (0.8-1.5) mg/dL Est GFR ( Amer) 35 Est GFR (Non-Af Amer) 29 POC Glucose (mg/dL) 217 H (65-110) mg/dL Random Glucose 181 H (75-110) mg/dL Uric Acid (3.5-8.5) mg/dL Calcium 7.7 L (8.6-10.4) mg/dl Phosphorus 3.3 (2.5-4.5) mg/dL Magnesium 2.3 (1.6-2.3) mg/dL Total Bilirubin 0.6 (0.2-1.3) mg/dL AST 23 (17-59) U/L ALT 43 (21-72) U/L Alkaline Phosphatase 53 (38-126) U/L Troponin I 0.3140 H* (0.00-0.120) ng/mL Total Protein 6.1 L (6.3-8.3) g/dL Albumin 2.9 L (3.5-5.0) g/dL Globulin 3.2 (2.2-3.9) gm/dL Albumin/Globulin Ratio 0.9 L (1.0-2.1) Free PSA ng/mL % Free PSA (>25) Percent Total PSA (<=4.0) ng/mL Prostate Cancer Risk Percent Urine Color (YELLOW) Urine Clarity (Clear) Urine pH (5.0-8.0) Ur Specific [place] (1.003-1.030) Urine Protein (NEGATIVE) mg/dL Urine Glucose (UA) (Normal) mg/dL Urine Ketones (NEGATIVE) mg/dL Urine Blood (NEGATIVE) Urine Nitrate (NEGATIVE) Urine Bilirubin (NEGATIVE) Urine Urobilinogen (0.2-1.0) mg/dL Ur Leukocyte Esterase (Negative) David/uL Urine WBC (Auto) (0-5) /hpf Urine RBC (Auto) (0-3) /hpf Amorphous Sediment (<OCC) /ul Urine Osmolality (300-1000) mosm/kg Ur Random Sodium mmol/L Random Vancomycin ug/mL Mycoplasma pneumon IgG (<=0.90) Mycoplasma pneumon IgM (<770) U/mL 07/17/17 07/15/17 07/14/17 Range/Units 06:04 08:29 11:23 WBC (4.8-10.8) K/uL RBC (4.40-5.90) Mil/uL Hgb (12.0-18.0) g/dL Hct (35.0-51.0) % MCV (80.0-94.0) fL MCH (27.0-31.0) pg MCHC (33.0-37.0) g/dL RDW (11.5-14.5) % Plt Count (130-400) K/uL MPV (7.2-11.7) fL Neut % (Auto) (50.0-75.0) % Lymph % (Auto) (20.0-40.0) % [place] % (Auto) (0.0-10.0) % Eos % (Auto) (0.0-4.0) % Baso % (Auto) (0.0-2.0) % Neut # (1.8-7.0) K/uL Lymph # (1.0-4.3) K/uL [place] # (0.0-0.8) K/uL Eos # (0.0-0.7) K/uL Baso # (0.0-0.2) K/uL Sodium (132-148) mmol/L Potassium (3.6-5.2) mmol/L Chloride (98-107) mmol/L Carbon Dioxide (22-30) mmol/L Anion Gap (10-20) BUN (9-20) mg/dL Creatinine (0.8-1.5) mg/dL Est GFR ( Amer) Est GFR (Non-Af Amer) POC Glucose (mg/dL) (65-110) mg/dL Random Glucose (75-110) mg/dL Uric Acid (3.5-8.5) mg/dL Calcium (8.6-10.4) mg/dl Phosphorus (2.5-4.5) mg/dL Magnesium (1.6-2.3) mg/dL Total Bilirubin (0.2-1.3) mg/dL AST (17-59) U/L ALT (21-72) U/L Alkaline Phosphatase (38-126) U/L Troponin I (0.00-0.120) ng/mL Total Protein (6.3-8.3) g/dL Albumin (3.5-5.0) g/dL Globulin (2.2-3.9) gm/dL Albumin/Globulin Ratio (1.0-2.1) Free PSA 13.8 ng/mL % Free PSA Not calculated (>25) Percent Total PSA 23.3 H (<=4.0) ng/mL Prostate Cancer Risk >50 Percent Urine Color (YELLOW) Urine Clarity (Clear) Urine pH (5.0-8.0) Ur Specific [place] (1.003-1.030) Urine Protein (NEGATIVE) mg/dL Urine Glucose (UA) (Normal) mg/dL Urine Ketones (NEGATIVE) mg/dL Urine Blood (NEGATIVE) Urine Nitrate (NEGATIVE) Urine Bilirubin (NEGATIVE) Urine Urobilinogen (0.2-1.0) mg/dL Ur Leukocyte Esterase (Negative) David/uL Urine WBC (Auto) (0-5) /hpf Urine RBC (Auto) (0-3) /hpf Amorphous Sediment (<OCC) /ul Urine Osmolality (300-1000) mosm/kg Ur Random Sodium mmol/L Random Vancomycin 13.00 ug/mL Mycoplasma pneumon IgG 1.07 H (<=0.90) Mycoplasma pneumon IgM 81 (<770) U/mL Laboratory Results - last 24 hr 07/14/17 07/15/17 07/17/17 11:23 08:29 06:04 WBC RBC Hgb Hct MCV MCH MCHC RDW Plt Count MPV Neut % (Auto) Lymph % (Auto) [place] % (Auto) Eos % (Auto) Baso % (Auto) Neut # Lymph # [place] # Eos # Baso # Sodium Potassium Chloride Carbon Dioxide Anion Gap BUN Creatinine Est GFR ( Amer) Est GFR (Non-Af Amer) POC Glucose (mg/dL) Random Glucose Uric Acid Calcium Phosphorus Magnesium Total Bilirubin AST ALT Alkaline Phosphatase Troponin I Total Protein Albumin Globulin Albumin/Globulin Ratio Free PSA 13.8 % Free PSA Not calculated Total PSA 23.3 H Prostate Cancer Risk >50 Urine Color Urine Clarity Urine pH Ur Specific [place] Urine Protein Urine Glucose (UA) Urine Ketones Urine Blood Urine Nitrate Urine Bilirubin Urine Urobilinogen Ur Leukocyte Esterase Urine WBC (Auto) Urine RBC (Auto) Amorphous Sediment Urine Osmolality Ur Random Sodium Random Vancomycin 13.00 Mycoplasma pneumon IgG 1.07 H Mycoplasma pneumon IgM 81 07/17/17 07/17/17 07/17/17 06:04 06:04 07:44 WBC 12.3 H RBC 3.21 L Hgb 9.1 L Hct 27.1 L MCV 84.5 MCH 28.4 MCHC 33.7 RDW 15.1 H Plt Count 203 MPV 9.1 Neut % (Auto) 81.3 H Lymph % (Auto) 10.2 L [place] % (Auto) 6.9 Eos % (Auto) 1.1 Baso % (Auto) 0.5 Neut # 10.0 H Lymph # 1.3 [place] # 0.8 Eos # 0.1 Baso # 0.1 Sodium 125 L Potassium 3.6 Chloride 93 L Carbon Dioxide 21 L Anion Gap 15 BUN 39 H Creatinine 2.2 H Est GFR ( Amer) 35 Est GFR (Non-Af Amer) 29 POC Glucose (mg/dL) 217 H Random Glucose 181 H Uric Acid Calcium 7.7 L Phosphorus 3.3 Magnesium 2.3 Total Bilirubin 0.6 AST 23 ALT 43 Alkaline Phosphatase 53 Troponin I 0.3140 H* Total Protein 6.1 L Albumin 2.9 L Globulin 3.2 Albumin/Globulin Ratio 0.9 L Free PSA % Free PSA Total PSA Prostate Cancer Risk Urine Color Urine Clarity Urine pH Ur Specific [place] Urine Protein Urine Glucose (UA) Urine Ketones Urine Blood Urine Nitrate Urine Bilirubin Urine Urobilinogen Ur Leukocyte Esterase Urine WBC (Auto) Urine RBC (Auto) Amorphous Sediment Urine Osmolality Ur Random Sodium Random Vancomycin Mycoplasma pneumon IgG Mycoplasma pneumon IgM 07/17/17 07/17/17 07/17/17 11:12 11:48 15:32 WBC RBC Hgb Hct MCV MCH MCHC RDW Plt Count MPV Neut % (Auto) Lymph % (Auto) [place] % (Auto) Eos % (Auto) Baso % (Auto) Neut # Lymph # [place] # Eos # Baso # Sodium Potassium Chloride Carbon Dioxide Anion Gap BUN Creatinine Est GFR ( Amer) Est GFR (Non-Af Amer) POC Glucose (mg/dL) 227 H Random Glucose Uric Acid Calcium Phosphorus Magnesium Total Bilirubin AST ALT Alkaline Phosphatase Troponin I 0.3280 H* Total Protein Albumin Globulin Albumin/Globulin Ratio Free PSA % Free PSA Total PSA Prostate Cancer Risk Urine Color Yellow Urine Clarity Hazy Urine pH 5.0 Ur Specific [place] 1.009 Urine Protein 1+ H Urine Glucose (UA) 1+ H Urine Ketones Negative Urine Blood 2+ H Urine Nitrate Negative Urine Bilirubin Negative Urine Urobilinogen Normal Ur Leukocyte Esterase 1+ H Urine WBC (Auto) 42 H Urine RBC (Auto) 14 H Amorphous Sediment Rare H Urine Osmolality Ur Random Sodium Random Vancomycin Mycoplasma pneumon IgG Mycoplasma pneumon IgM 07/17/17 07/17/17 07/17/17 15:32 15:33 16:40 WBC RBC Hgb Hct MCV MCH MCHC RDW Plt Count MPV Neut % (Auto) Lymph % (Auto) [place] % (Auto) Eos % (Auto) Baso % (Auto) Neut # Lymph # [place] # Eos # Baso # Sodium Potassium Chloride Carbon Dioxide Anion Gap BUN Creatinine Est GFR ( Amer) Est GFR (Non-Af Amer) POC Glucose (mg/dL) 224 H Random Glucose Uric Acid 8.7 H Calcium Phosphorus Magnesium Total Bilirubin AST ALT Alkaline Phosphatase Troponin I Total Protein Albumin Globulin Albumin/Globulin Ratio Free PSA % Free PSA Total PSA Prostate Cancer Risk Urine Color Urine Clarity Urine pH Ur Specific [place] Urine Protein Urine Glucose (UA) Urine Ketones Urine Blood Urine Nitrate Urine Bilirubin Urine Urobilinogen Ur Leukocyte Esterase Urine WBC (Auto) Urine RBC (Auto) Amorphous Sediment Urine Osmolality 265 L Ur Random Sodium 21 Random Vancomycin Mycoplasma pneumon IgG Mycoplasma pneumon IgM EKG/Cardiology Studies: Cardiology / EKG Studies 07/16/17 17:35 EKG [ELECTROCARDIOGRAM] Stat Comment: Mode Of Transportation: Reason For Exam: tachycardia Isolation: Contact 07/17/17 07:30 EKG [ELECTROCARDIOGRAM] Routine Comment: Mode Of Transportation: PORTABLE Reason For Exam: atrial fibrillation ,elevated Troponin Isolation: Contact Critical Care Progress Note - Nutrition Nutrition: Nutrition Category Date Time Status Liquid Diet [DIET] Diets 07/17/17 Lunch Active Attending/Attestation - Attestation I have personally seen and examined this patient.: Yes I have fully participated in the care of the patient.: Yes I have reviewed all pertinent clinical information: Yes Notes (Text): 07/17/17 18:11 I have seen and examined the patient. Medical records, lab studies, and imaging were reviewed by me and a management plan was formulated on multidisciplinary rounds with resident Dr. Vogt. I agree with their documented assessment and plan. Free air seems to have resolved, possible microperforation that self-sealed. Troponin leak, possible NSTEMI or type 2 strain, awaiting cardiology input, no EKG changes. Afib rate controlled, titrated off drip to orals. Critical Care Time 35 minutes. Multi-disciplinary rounds were performed with house staff, nursing, speech therapy, respiratory therapy, pharmacy and nutrition with integrated input from the primary team/attending and other consulting services. The documented time is cumulative and includes review of patient data/exams/labs/chart review and examination of the patient on rounds and throughout the day; time is exclusive of any procedures or teaching time.
--- NOTE | 2017-07-17 16:48 | CP.PCM.CON ---
History of Present Illness - History of Present Illness History of Present Illness: s/p ERCP guidewire perforation of hepatic/biliary parenchyma, subtype C ( complicated by subcapsular hematoma/biloma) awake alert confused c/o pain NAD Review of Systems - Review of Systems Systems not reviewed;Unavailable: Altered Mental Status Past Patient History - Infectious Disease Hx of Infectious Diseases: None - Tetanus Immunizations Tetanus Immunization: Unknown - Past Medical History & Family History Past Medical History?: Yes - Past Social History Smoking Status: Never Smoked Chewing Tobacco Use: No Cigar Use: No Alcohol: None Drugs: Denies Home Situation {Lives}: With Family - CARDIAC Hx Cardiac Disorders: Yes Hx Hypercholesterolemia: Yes Hx Hypertension: Yes - PULMONARY Hx Respiratory Disorders: Yes Hx Pneumonia: Yes (KLEBSIELLA PNEUMONIAE) - NEUROLOGICAL Hx Neurological Disorder: Yes HX Cerebrovascular Accident: Yes Hx Dementia: Yes Other/Comment: MEMORY DEFICIT - HEENT Hx HEENT Problems: Yes Hx Cataracts: Yes (SURGERY) - RENAL Hx Chronic Kidney Disease: No - ENDOCRINE/METABOLIC Hx Endocrine Disorders: Yes Hx Diabetes Mellitus Type 2: Yes - HEMATOLOGICAL/ONCOLOGICAL Hx Blood Disorders: No Hx Blood Transfusions: No - INTEGUMENTARY Hx Dermatological Problems: No - MUSCULOSKELETAL/RHEUMATOLOGICAL Hx Musculoskeletal Disorders: Yes Hx Arthritis: Yes (BACK, BL KNEE) Hx Back Pain: Yes Hx Falls: No Other/Comment: RIGHT HAND WEAK GRASP RESIDUAL FROM STROKE - GASTROINTESTINAL Hx Gastrointestinal Disorders: Yes (''STOMACH BACTERIA'') Hx Ulcer: Yes Other/Comment: CHOLEDOCHOLITHIASIS, CHOLANGITIS - GENITOURINARY/GYNECOLOGICAL Hx Genitourinary Disorders: No Hx Incontinence: Yes - PSYCHIATRIC Hx Psychophysiologic Disorder: No Hx Substance Use: No - SURGICAL HISTORY Hx Surgeries: Yes Hx Cataract Extraction: Yes Other/Comment: LEFT BEHIND EAR SURGERY FROM BLOOD CLOTS ,RIGHT HAND SURGERY - ANESTHESIA Hx Anesthesia: Yes Hx Anesthesia Reactions: No Hx Malignant Hyperthermia: No Meds Allergies/Adverse Reactions: Allergies Allergy/AdvReac Type Severity Reaction Status Date / Time No Known Allergies Allergy Verified 07/13/17 10:45 - Medications Medications: Current Medications Ascorbic Acid (Vitamin C 250 Mg Tab) 250 mg PO DAILY [facility] Last Admin: 07/17/17 10:03 Dose: 250 mg Benzocaine/Menthol (Cepacol Sore Throat) 1 love MT Q2 PRN PRN Reason: Sore Throat Clopidogrel Bisulfate (Plavix) 75 mg PO DAILY [facility] Cyproheptadine HCl (Periactin) 4 mg PO BID [facility] Last Admin: 07/17/17 10:03 Dose: 4 mg Diltiazem HCl (Cardizem Cd) 120 mg PO DAILY [facility] Last Admin: 07/17/17 15:04 Dose: 120 mg Donepezil HCl (Aricept) 10 mg PO HS [facility] Last Admin: 07/16/17 21:13 Dose: 10 mg Ferrous Sulfate (Feosol) 325 mg PO Q12H [facility] Last Admin: 07/17/17 06:00 Dose: 325 mg Furosemide (Lasix) 20 mg IVP BID [facility] Gemfibrozil (Lopid) 600 mg PO BID [facility] Last Admin: 07/17/17 10:03 Dose: 600 mg Home Med (Fesoterodine Fumarate [Toviaz]) 8 mg PO DAILY [facility] Hydromorphone HCl (Dilaudid) 0.5 mg IVP Q4 PRN PRN Reason: Pain, severe (8-10) Last Admin: 07/17/17 15:58 Dose: 0.5 mg Sodium Chloride (Sodium Chloride 0.9%) 1,000 mls @ 100 mls/hr IV .Q10H [facility] Last Admin: 07/17/17 11:27 Dose: Not Given Diltiazem HCl 125 mg/ Dextrose 125 mls @ 5 mls/hr IV .Q24H DARINEL; 5 MG/HR PRN Reason: Protocol Last Titration: 07/17/17 08:46 Dose: 2.5 mg/hr, 2.5 mls/hr Tigecycline 50 mg/ Dextrose 100 mls @ 100 mls/hr IVPB Q12H [facility] Insulin Human Regular (Novolin R) 0 unit SC ACHS [facility] PRN Reason: Protocol Last Admin: 07/17/17 12:25 Dose: 2 unit Latanoprost (Xalatan Opht) 0 ml OU HS [facility] Last Admin: 07/16/17 21:15 Dose: 2.5 ml Levothyroxine Sodium (Synthroid) 50 mcg PO DAILY@0630 [facility] Last Admin: 07/17/17 07:27 Dose: 50 mcg Meclizine HCl (Antivert) 12.5 mg PO TID [facility] Last Admin: 07/17/17 15:28 Dose: 12.5 mg Metoprolol Succinate (Toprol Xl) 100 mg PO DAILY [facility] Last Admin: 07/14/17 13:41 Dose: 100 mg Ondansetron HCl (Zofran Inj) 4 mg IVP Q6 PRN PRN Reason: Nausea/Vomiting Pantoprazole Sodium (Protonix Inj) 40 mg IVP DAILY [facility] Last Admin: 07/17/17 10:04 Dose: 40 mg Rosuvastatin Calcium (Crestor) 10 mg PO HS [facility] Last Admin: 07/16/17 21:14 Dose: 10 mg Saccharomyces Boulardii (Florastor) 250 mg PO BID [facility] Last Admin: 07/17/17 10:03 Dose: 250 mg Physical Exam - Constitutional Appears: Chronically Ill - Head Exam Head Exam: NORMAL INSPECTION - Eye Exam Eye Exam: PERRL. absent: Scleral icterus - ENT Exam ENT Exam: Mucous Membranes Dry - Neck Exam Neck exam: Negative for: Lymphadenopathy - Respiratory Exam Respiratory Exam: Decreased Breath Sounds - Cardiovascular Exam Cardiovascular Exam: REGULAR RHYTHM - GI/Abdominal Exam GI & Abdominal Exam: Diminished Bowel Sounds, Distended - Rectal Exam Rectal Exam: Deferred - Exam Exam: NORMAL INSPECTION Results - Vital Signs Recent Vital Signs: Last Vital Signs Temp 99.8 F H 07/17/17 16:00 Pulse 82 07/17/17 16:26 Resp 23 07/17/17 16:26 BP 101/43 L 07/17/17 16:26 Pulse Ox 94 L 07/17/17 16:26 - Labs Result Diagrams: 07/17/17 06:04 07/17/17 06:04 Labs: Laboratory Results - last 24 hr 07/14/17 07/15/17 07/16/17 11:23 08:29 17:45 WBC RBC Hgb Hct MCV MCH MCHC RDW Plt Count MPV Neut % (Auto) Lymph % (Auto) [place] % (Auto) Eos % (Auto) Baso % (Auto) Neut # Lymph # [place] # Eos # Baso # Sodium Potassium Chloride Carbon Dioxide Anion Gap BUN Creatinine Est GFR ( Amer) Est GFR (Non-Af Amer) POC Glucose (mg/dL) 175 H Random Glucose Uric Acid Calcium Phosphorus Magnesium Total Bilirubin AST ALT Alkaline Phosphatase Troponin I Total Protein Albumin Globulin Albumin/Globulin Ratio Free PSA 13.8 % Free PSA Not calculated Total PSA 23.3 H Prostate Cancer Risk >50 Urine Color Urine Clarity Urine pH Ur Specific [place] Urine Protein Urine Glucose (UA) Urine Ketones Urine Blood Urine Nitrate Urine Bilirubin Urine Urobilinogen Ur Leukocyte Esterase Urine WBC (Auto) Urine RBC (Auto) Amorphous Sediment Urine Osmolality Ur Random Sodium Random Vancomycin Mycoplasma pneumon IgM 81 07/17/17 07/17/17 07/17/17 06:04 06:04 06:04 WBC 12.3 H RBC 3.21 L Hgb 9.1 L Hct 27.1 L MCV 84.5 MCH 28.4 MCHC 33.7 RDW 15.1 H Plt Count 203 MPV 9.1 Neut % (Auto) 81.3 H Lymph % (Auto) 10.2 L [place] % (Auto) 6.9 Eos % (Auto) 1.1 Baso % (Auto) 0.5 Neut # 10.0 H Lymph # 1.3 [place] # 0.8 Eos # 0.1 Baso # 0.1 Sodium 125 L Potassium 3.6 Chloride 93 L Carbon Dioxide 21 L Anion Gap 15 BUN 39 H Creatinine 2.2 H Est GFR ( Amer) 35 Est GFR (Non-Af Amer) 29 POC Glucose (mg/dL) Random Glucose 181 H Uric Acid Calcium 7.7 L Phosphorus 3.3 Magnesium 2.3 Total Bilirubin 0.6 AST 23 ALT 43 Alkaline Phosphatase 53 Troponin I 0.3140 H* Total Protein 6.1 L Albumin 2.9 L Globulin 3.2 Albumin/Globulin Ratio 0.9 L Free PSA % Free PSA Total PSA Prostate Cancer Risk Urine Color Urine Clarity Urine pH Ur Specific [place] Urine Protein Urine Glucose (UA) Urine Ketones Urine Blood Urine Nitrate Urine Bilirubin Urine Urobilinogen Ur Leukocyte Esterase Urine WBC (Auto) Urine RBC (Auto) Amorphous Sediment Urine Osmolality Ur Random Sodium Random Vancomycin 13.00 Mycoplasma pneumon IgM 07/17/17 07/17/17 07/17/17 07:44 11:12 11:48 WBC RBC Hgb Hct MCV MCH MCHC RDW Plt Count MPV Neut % (Auto) Lymph % (Auto) [place] % (Auto) Eos % (Auto) Baso % (Auto) Neut # Lymph # [place] # Eos # Baso # Sodium Potassium Chloride Carbon Dioxide Anion Gap BUN Creatinine Est GFR ( Amer) Est GFR (Non-Af Amer) POC Glucose (mg/dL) 217 H 227 H Random Glucose Uric Acid Calcium Phosphorus Magnesium Total Bilirubin AST ALT Alkaline Phosphatase Troponin I 0.3280 H* Total Protein Albumin Globulin Albumin/Globulin Ratio Free PSA % Free PSA Total PSA Prostate Cancer Risk Urine Color Urine Clarity Urine pH Ur Specific [place] Urine Protein Urine Glucose (UA) Urine Ketones Urine Blood Urine Nitrate Urine Bilirubin Urine Urobilinogen Ur Leukocyte Esterase Urine WBC (Auto) Urine RBC (Auto) Amorphous Sediment Urine Osmolality Ur Random Sodium Random Vancomycin Mycoplasma pneumon IgM 07/17/17 07/17/17 07/17/17 15:32 15:32 15:33 WBC RBC Hgb Hct MCV MCH MCHC RDW Plt Count MPV Neut % (Auto) Lymph % (Auto) [place] % (Auto) Eos % (Auto) Baso % (Auto) Neut # Lymph # [place] # Eos # Baso # Sodium Potassium Chloride Carbon Dioxide Anion Gap BUN Creatinine Est GFR ( Amer) Est GFR (Non-Af Amer) POC Glucose (mg/dL) Random Glucose Uric Acid 8.7 H Calcium Phosphorus Magnesium Total Bilirubin AST ALT Alkaline Phosphatase Troponin I Total Protein Albumin Globulin Albumin/Globulin Ratio Free PSA % Free PSA Total PSA Prostate Cancer Risk Urine Color Yellow Urine Clarity Hazy Urine pH 5.0 Ur Specific [place] 1.009 Urine Protein 1+ H Urine Glucose (UA) 1+ H Urine Ketones Negative Urine Blood 2+ H Urine Nitrate Negative Urine Bilirubin Negative Urine Urobilinogen Normal Ur Leukocyte Esterase 1+ H Urine WBC (Auto) 42 H Urine RBC (Auto) 14 H Amorphous Sediment Rare H Urine Osmolality 265 L Ur Random Sodium 21 Random Vancomycin Mycoplasma pneumon IgM Assessment & Plan (1) JAY JAY (acute kidney injury) Status: Acute (2) CVA, old, cognitive deficits Status: Acute (3) Chronic kidney disease, stage III (moderate) Status: Acute (4) Headache Status: Acute (5) Hx of gastroesophageal reflux (GERD) Status: Acute - Assessment and Plan (Free Text) Assessment: s/p ERCP guidewire perforation of hepatic/biliary parenchyma, subtype C ( complicated by subcapsular hematoma/biloma) will renew iv rx
--- NOTE | 2017-07-17 18:08 | CP.PCM.CON ---
History of Present Illness - History of Present Illness History of Present Illness: Cardiology consult Reason for consult: afib HPI: Pt is an 82 man with hx of DM, HTN, CVA, Hypothyroidism, Dementia, cholangitis s/p CBD stent in 04/2017 who underwent removal of stent and sphincterotomy that was complicated by RUQ pain with workup showing ? biliary/ bowel perf with + sepsis with VRE bacteremia. Pt is in the ICU. He developed Afib with RVR today at 5:15pm. Mild troponin elevation to 0.3 range. Recent LVEF was normal. Cardiology now called. Pt feels intermittent palpitaitons. No SOB, chest pain, syncope or presyncope. PMHX of DM, HTN, CVA, GERD, gluteal abscess (MRSA) on 06/27/17, Klebsiella Sepsis, Vertigo, Dementia, Hypothyroidism, gallstones s/p ERCP. Surgery Hx: Cholecystectomy, Cardiac cath 2012, L carotid surgery, ERCP, right hand surgery, non-emergent aortic dissection in 2014, but patient has no sternal scar. Family Hx: no PCAD Allergies: NKDA Social Hx: none smoker. Denies alco Past Patient History - Infectious Disease Hx of Infectious Diseases: None - Tetanus Immunizations Tetanus Immunization: Unknown - Past Medical History & Family History Past Medical History?: Yes - Past Social History Smoking Status: Never Smoked Chewing Tobacco Use: No Cigar Use: No Alcohol: None Drugs: Denies Home Situation {Lives}: With Family - CARDIAC Hx Cardiac Disorders: Yes Hx Hypercholesterolemia: Yes Hx Hypertension: Yes - PULMONARY Hx Respiratory Disorders: Yes Hx Pneumonia: Yes (KLEBSIELLA PNEUMONIAE) - NEUROLOGICAL Hx Neurological Disorder: Yes HX Cerebrovascular Accident: Yes Hx Dementia: Yes Other/Comment: MEMORY DEFICIT - HEENT Hx HEENT Problems: Yes Hx Cataracts: Yes (SURGERY) - RENAL Hx Chronic Kidney Disease: No - ENDOCRINE/METABOLIC Hx Endocrine Disorders: Yes Hx Diabetes Mellitus Type 2: Yes - HEMATOLOGICAL/ONCOLOGICAL Hx Blood Disorders: No Hx Blood Transfusions: No - INTEGUMENTARY Hx Dermatological Problems: No - MUSCULOSKELETAL/RHEUMATOLOGICAL Hx Musculoskeletal Disorders: Yes Hx Arthritis: Yes (BACK, BL KNEE) Hx Back Pain: Yes Hx Falls: No Other/Comment: RIGHT HAND WEAK GRASP RESIDUAL FROM STROKE - GASTROINTESTINAL Hx Gastrointestinal Disorders: Yes (''STOMACH BACTERIA'') Hx Ulcer: Yes Other/Comment: CHOLEDOCHOLITHIASIS, CHOLANGITIS - GENITOURINARY/GYNECOLOGICAL Hx Genitourinary Disorders: No Hx Incontinence: Yes - PSYCHIATRIC Hx Psychophysiologic Disorder: No Hx Substance Use: No - SURGICAL HISTORY Hx Surgeries: Yes Hx Cataract Extraction: Yes Other/Comment: LEFT BEHIND EAR SURGERY FROM BLOOD CLOTS ,RIGHT HAND SURGERY - ANESTHESIA Hx Anesthesia: Yes Hx Anesthesia Reactions: No Hx Malignant Hyperthermia: No Meds Allergies/Adverse Reactions: Allergies Allergy/AdvReac Type Severity Reaction Status Date / Time No Known Allergies Allergy Verified 07/13/17 10:45 - Medications Medications: Current Medications Ascorbic Acid (Vitamin C 250 Mg Tab) 250 mg PO DAILY [facility] Last Admin: 07/17/17 10:03 Dose: 250 mg Benzocaine/Menthol (Cepacol Sore Throat) 1 love MT Q2 PRN PRN Reason: Sore Throat Clopidogrel Bisulfate (Plavix) 75 mg PO DAILY [facility] Cyproheptadine HCl (Periactin) 4 mg PO BID [facility] Last Admin: 07/17/17 17:01 Dose: 4 mg Diltiazem HCl (Cardizem Cd) 120 mg PO DAILY [facility] Last Admin: 07/17/17 15:04 Dose: 120 mg Donepezil HCl (Aricept) 10 mg PO HS [facility] Last Admin: 07/16/17 21:13 Dose: 10 mg Ferrous Sulfate (Feosol) 325 mg PO Q12H [facility] Last Admin: 07/17/17 18:02 Dose: 325 mg Furosemide (Lasix) 20 mg IVP BID [facility] Last Admin: 07/17/17 17:01 Dose: 20 mg Gemfibrozil (Lopid) 600 mg PO BID [facility] Last Admin: 07/17/17 18:02 Dose: 600 mg Home Med (Fesoterodine Fumarate [Toviaz]) 8 mg PO DAILY [facility] Hydromorphone HCl (Dilaudid) 0.5 mg IVP Q4 PRN PRN Reason: Pain, severe (8-10) Last Admin: 07/17/17 15:58 Dose: 0.5 mg Sodium Chloride (Sodium Chloride 0.9%) 1,000 mls @ 100 mls/hr IV .Q10H [facility] Last Admin: 07/17/17 11:27 Dose: Not Given Tigecycline 50 mg/ Dextrose 100 mls @ 100 mls/hr IVPB Q12H [facility] Insulin Human Regular (Novolin R) 0 unit SC ACHS [facility] PRN Reason: Protocol Last Admin: 07/17/17 16:57 Dose: 2 unit Latanoprost (Xalatan Opht) 0 ml OU HS [facility] Last Admin: 07/16/17 21:15 Dose: 2.5 ml Levothyroxine Sodium (Synthroid) 50 mcg PO DAILY@0630 [facility] Last Admin: 07/17/17 07:27 Dose: 50 mcg Meclizine HCl (Antivert) 12.5 mg PO TID [facility] Last Admin: 07/17/17 18:02 Dose: 12.5 mg Metoprolol Succinate (Toprol Xl) 100 mg PO DAILY [facility] Last Admin: 07/14/17 13:41 Dose: 100 mg Ondansetron HCl (Zofran Inj) 4 mg IVP Q6 PRN PRN Reason: Nausea/Vomiting Pantoprazole Sodium (Protonix Inj) 40 mg IVP DAILY [facility] Last Admin: 07/17/17 10:04 Dose: 40 mg Rosuvastatin Calcium (Crestor) 10 mg PO HS [facility] Last Admin: 07/16/17 21:14 Dose: 10 mg Saccharomyces Boulardii (Florastor) 250 mg PO BID [facility] Last Admin: 07/17/17 17:02 Dose: 250 mg Physical Exam - Constitutional Appears: Well - Head Exam Head Exam: ATRAUMATIC - Eye Exam Eye Exam: Normal appearance - ENT Exam ENT Exam: Mucous Membranes Moist - Neck Exam Neck exam: Positive for: Normal Inspection - Respiratory Exam Respiratory Exam: Clear to Auscultation Bilateral - Cardiovascular Exam Cardiovascular Exam: Irregular Rhythm, +S2. absent: Systolic Murmur - GI/Abdominal Exam GI & Abdominal Exam: Soft Results - Vital Signs Recent Vital Signs: Last Vital Signs Temp 99.8 F H 07/17/17 16:00 Pulse 123 H 07/17/17 17:27 Resp 32 H 07/17/17 17:27 BP 107/51 L 07/17/17 17:27 Pulse Ox 95 07/17/17 17:27 - Labs Result Diagrams: 07/17/17 06:04 07/17/17 06:04 Labs: Laboratory Results - last 24 hr 07/14/17 07/15/17 07/17/17 11:23 08:29 06:04 WBC RBC Hgb Hct MCV MCH MCHC RDW Plt Count MPV Neut % (Auto) Lymph % (Auto) [place] % (Auto) Eos % (Auto) Baso % (Auto) Neut # Lymph # [place] # Eos # Baso # Sodium Potassium Chloride Carbon Dioxide Anion Gap BUN Creatinine Est GFR ( Amer) Est GFR (Non-Af Amer) POC Glucose (mg/dL) Random Glucose Uric Acid Calcium Phosphorus Magnesium Total Bilirubin AST ALT Alkaline Phosphatase Troponin I Total Protein Albumin Globulin Albumin/Globulin Ratio Free PSA 13.8 % Free PSA Not calculated Total PSA 23.3 H Prostate Cancer Risk >50 Urine Color Urine Clarity Urine pH Ur Specific [place] Urine Protein Urine Glucose (UA) Urine Ketones Urine Blood Urine Nitrate Urine Bilirubin Urine Urobilinogen Ur Leukocyte Esterase Urine WBC (Auto) Urine RBC (Auto) Amorphous Sediment Urine Osmolality Ur Random Sodium Random Vancomycin 13.00 Mycoplasma pneumon IgG 1.07 H Mycoplasma pneumon IgM 81 07/17/17 07/17/17 07/17/17 06:04 06:04 07:44 WBC 12.3 H RBC 3.21 L Hgb 9.1 L Hct 27.1 L MCV 84.5 MCH 28.4 MCHC 33.7 RDW 15.1 H Plt Count 203 MPV 9.1 Neut % (Auto) 81.3 H Lymph % (Auto) 10.2 L [place] % (Auto) 6.9 Eos % (Auto) 1.1 Baso % (Auto) 0.5 Neut # 10.0 H Lymph # 1.3 [place] # 0.8 Eos # 0.1 Baso # 0.1 Sodium 125 L Potassium 3.6 Chloride 93 L Carbon Dioxide 21 L Anion Gap 15 BUN 39 H Creatinine 2.2 H Est GFR ( Amer) 35 Est GFR (Non-Af Amer) 29 POC Glucose (mg/dL) 217 H Random Glucose 181 H Uric Acid Calcium 7.7 L Phosphorus 3.3 Magnesium 2.3 Total Bilirubin 0.6 AST 23 ALT 43 Alkaline Phosphatase 53 Troponin I 0.3140 H* Total Protein 6.1 L Albumin 2.9 L Globulin 3.2 Albumin/Globulin Ratio 0.9 L Free PSA % Free PSA Total PSA Prostate Cancer Risk Urine Color Urine Clarity Urine pH Ur Specific [place] Urine Protein Urine Glucose (UA) Urine Ketones Urine Blood Urine Nitrate Urine Bilirubin Urine Urobilinogen Ur Leukocyte Esterase Urine WBC (Auto) Urine RBC (Auto) Amorphous Sediment Urine Osmolality Ur Random Sodium Random Vancomycin Mycoplasma pneumon IgG Mycoplasma pneumon IgM 07/17/17 07/17/17 07/17/17 11:12 11:48 15:32 WBC RBC Hgb Hct MCV MCH MCHC RDW Plt Count MPV Neut % (Auto) Lymph % (Auto) [place] % (Auto) Eos % (Auto) Baso % (Auto) Neut # Lymph # [place] # Eos # Baso # Sodium Potassium Chloride Carbon Dioxide Anion Gap BUN Creatinine Est GFR ( Amer) Est GFR (Non-Af Amer) POC Glucose (mg/dL) 227 H Random Glucose Uric Acid Calcium Phosphorus Magnesium Total Bilirubin AST ALT Alkaline Phosphatase Troponin I 0.3280 H* Total Protein Albumin Globulin Albumin/Globulin Ratio Free PSA % Free PSA Total PSA Prostate Cancer Risk Urine Color Yellow Urine Clarity Hazy Urine pH 5.0 Ur Specific [place] 1.009 Urine Protein 1+ H Urine Glucose (UA) 1+ H Urine Ketones Negative Urine Blood 2+ H Urine Nitrate Negative Urine Bilirubin Negative Urine Urobilinogen Normal Ur Leukocyte Esterase 1+ H Urine WBC (Auto) 42 H Urine RBC (Auto) 14 H Amorphous Sediment Rare H Urine Osmolality Ur Random Sodium Random Vancomycin Mycoplasma pneumon IgG Mycoplasma pneumon IgM 07/17/17 07/17/17 07/17/17 15:32 15:33 16:40 WBC RBC Hgb Hct MCV MCH MCHC RDW Plt Count MPV Neut % (Auto) Lymph % (Auto) [place] % (Auto) Eos % (Auto) Baso % (Auto) Neut # Lymph # [place] # Eos # Baso # Sodium Potassium Chloride Carbon Dioxide Anion Gap BUN Creatinine Est GFR ( Amer) Est GFR (Non-Af Amer) POC Glucose (mg/dL) 224 H Random Glucose Uric Acid 8.7 H Calcium Phosphorus Magnesium Total Bilirubin AST ALT Alkaline Phosphatase Troponin I Total Protein Albumin Globulin Albumin/Globulin Ratio Free PSA % Free PSA Total PSA Prostate Cancer Risk Urine Color Urine Clarity Urine pH Ur Specific [place] Urine Protein Urine Glucose (UA) Urine Ketones Urine Blood Urine Nitrate Urine Bilirubin Urine Urobilinogen Ur Leukocyte Esterase Urine WBC (Auto) Urine RBC (Auto) Amorphous Sediment Urine Osmolality 265 L Ur Random Sodium 21 Random Vancomycin Mycoplasma pneumon IgG Mycoplasma pneumon IgM Assessment & Plan - Assessment and Plan (Free Text) Assessment: 1. AFib with RVR -- Due to high sympathetic tone from sepsis 2. Mild troponin elevation -- Due to sepsis and rapidly conducting Afib 3. Preserved LVEF 4. Sepsis with ? biliary perf after ERCP Plan: * Treat sepsis with IV fluids and possible pressors, which is the underlying cause of this patient's Afib * Start heparin gtt if able to for Afib * Avoid AV olya blockers due to patient's hypotension from septic shock
--- NOTE | 2017-07-17 19:18 | CARD ---
APPROVED REPORT EKG Measurement Heart [id number] <Conclusion> Atrial fibrillation with premature ventricular or aberrantly conducted complexes Left axis deviation Nonspecific ST and T wave abnormality Abnormal ECG
[2017-07-17] MEDS: Benzocaine/Menthol (Cepacol) Lozenge MT PRN (20:25)
[2017-07-17] MEDS: Latanoprost 2.5 ml Opht Soln OU SCH (22:00)
[2017-07-18] MEDS: Tigecycline 50 MG in Dextrose 5% In Water 100 ML IVPB SCH ×2 (01:00→12:45)
[2017-07-18] MEDS: HYDROmorphone 0.5 mg/0.5 ml ISec IVP PRN ×2 (02:26→06:28)
[2017-07-18] MEDS: Levothyroxine 50 MCG TAB PO SCH (06:30)
[2017-07-18 06:42] LABS: BASO # 0.1 K/uL (0.0-0.2); BASO % 0.7 % (0.0-2.0); EOS # 0.6 K/uL (0.0-0.7); EOS % 3.3 % (0.0-4.0); HEMATOCRIT 27.9 % (35.0-51.0); LYMPH # 2.5 K/uL (1.0-4.3); LYMPH % 13.3 % (20.0-40.0); MEAN CELL VOLUME 84.4 fL (80.0-94.0); MEAN CORPUSCULAR HEMOGLOBIN 27.9 pg (27.0-31.0); MEAN CORPUSCULAR HGB CONC 33.1 g/dL (33.0-37.0); MEAN PLATELET VOLUME 8.2 fL (7.2-11.7); MONO # 2.1 K/uL (0.0-0.8); MONO % 11.1 % (0.0-10.0); RED CELL DISTRIBUTION WIDTH 14.9 % (11.5-14.5)
[2017-07-18 06:54] LABS: POTASSIUM 3.8 mmol/L (3.6-5.2)
[2017-07-18 06:56] LABS: ALB/GLOB RATIO 0.9 (1.0-2.1); BILIRUBIN,TOTAL 0.6 mg/dL (0.2-1.3); CALCIUM 7.3 mg/dl (8.6-10.4); MAGNESIUM 2.3 mg/dL (1.6-2.3); PHOSPHOROUS 5.7 mg/dL (2.5-4.5); TOTAL PROTEIN 6.2 g/dL (6.3-8.3)
--- NOTE | 2017-07-18 08:24 | CP.PCM.PN ---
Subjective - Date & Time of Evaluation Date of Evaluation: 07/18/17 Time of Evaluation: 08:18 - Subjective Subjective: Patient seen and examined, resting in bed comfortably. No acute events overnight. He continues to endorse generalized abdominal discomfort. As per nursing staff, he had one large bowel movement overnight without presence of blood in stool. He is tolerating PO liquids without difficulty. Review of vitals from today are normal. Review of systems not available due to underlying patient dementia Objective - Vital Signs/Intake and Output Vital Signs (last 24 hours): Temp Pulse Resp BP Pulse Ox 98.2 F 76 26 H 106/46 L 97 07/18/17 04:00 07/18/17 07:26 07/18/17 07:26 07/18/17 07:26 07/18/17 07:26 Intake and Output: 07/18/17 07/18/17 06:59 18:59 Intake Total 1257.86 91.6 Output Total 185 25 Balance 1072.86 66.6 - Medications Medications: Current Medications Ascorbic Acid (Vitamin C 250 Mg Tab) 250 mg PO DAILY [facility] Last Admin: 07/17/17 10:03 Dose: 250 mg Benzocaine/Menthol (Cepacol Sore Throat) 1 love MT Q2 PRN PRN Reason: Sore Throat Last Admin: 07/17/17 20:25 Dose: 1 love Clopidogrel Bisulfate (Plavix) 75 mg PO DAILY [facility] Cyproheptadine HCl (Periactin) 4 mg PO BID [facility] Last Admin: 07/17/17 17:01 Dose: 4 mg Donepezil HCl (Aricept) 10 mg PO HS [facility] Last Admin: 07/17/17 22:02 Dose: 10 mg Ferrous Sulfate (Feosol) 325 mg PO Q12H [facility] Last Admin: 07/18/17 06:30 Dose: 325 mg Furosemide (Lasix) 20 mg IVP BID [facility] Last Admin: 07/17/17 17:01 Dose: 20 mg Gemfibrozil (Lopid) 600 mg PO BID [facility] Last Admin: 07/17/17 18:02 Dose: 600 mg Home Med (Fesoterodine Fumarate [Toviaz]) 8 mg PO DAILY [facility] Hydromorphone HCl (Dilaudid) 0.5 mg IVP Q4 PRN PRN Reason: Pain, severe (8-10) Last Admin: 07/18/17 06:28 Dose: 0.5 mg Tigecycline 50 mg/ Dextrose 100 mls @ 100 mls/hr IVPB Q12H [facility] Last Admin: 07/18/17 01:00 Dose: 100 mls/hr Amiodarone HCl 900 mg/ (Dextrose) 500 mls @ 16.66 mls/hr IV .Q24H ONE; 0.5 MG/ MIN PRN Reason: Protocol Stop: 07/19/17 01:59 EST Last Admin: 07/18/17 02:00 Dose: 16.66 mls/hr Sodium Chloride (Sodium Chloride 0.9%) 1,000 mls @ 75 mls/hr IV .[id number] [facility] Last Admin: 07/17/17 22:00 Dose: Not Given Insulin Human Regular (Novolin R) 0 unit SC ACHS [facility] PRN Reason: Protocol Last Admin: 07/17/17 22:05 Dose: Not Given Latanoprost (Xalatan Opht) 0 ml OU HS [facility] Last Admin: 07/17/17 22:00 Dose: 2.5 ml Levothyroxine Sodium (Synthroid) 50 mcg PO DAILY@0630 [facility] Last Admin: 07/18/17 06:30 Dose: 50 mcg Meclizine HCl (Antivert) 12.5 mg PO TID [facility] Last Admin: 07/17/17 18:02 Dose: 12.5 mg Metoprolol Succinate (Toprol Xl) 100 mg PO DAILY [facility] Last Admin: 07/14/17 13:41 Dose: 100 mg Ondansetron HCl (Zofran Inj) 4 mg IVP Q6 PRN PRN Reason: Nausea/Vomiting Pantoprazole Sodium (Protonix Inj) 40 mg IVP DAILY [facility] Last Admin: 07/17/17 10:04 Dose: 40 mg Rosuvastatin Calcium (Crestor) 10 mg PO HS [facility] Last Admin: 07/17/17 22:03 Dose: 10 mg Saccharomyces Boulardii (Florastor) 250 mg PO BID [facility] Last Admin: 07/17/17 17:02 Dose: 250 mg - Labs Labs: 07/18/17 06:34 07/18/17 06:35 PT 14.3 SECONDS (9.7-12.2) H 07/16/17 04:00 INR 1.3 07/16/17 04:00 APTT 29 SECONDS (21-34) 07/13/17 20:04 - Constitutional Appears: Non-toxic, No Acute Distress - Head Exam Head Exam: NORMAL INSPECTION - Eye Exam Eye Exam: EOMI, Normal appearance - ENT Exam ENT Exam: Mucous Membranes Moist - Respiratory Exam Respiratory Exam: Clear to Ausculation Bilateral - Cardiovascular Exam Cardiovascular Exam: +S1, +S2 - GI/Abdominal Exam GI & Abdominal Exam: Soft, Tenderness, Normal Bowel Sounds Additional comments: generalized tenderness to palpation, no rebound/guarding - Extremities Exam Extremities Exam: Normal Inspection - Skin Skin Exam: Dry, Intact, Normal Color, Warm Assessment and Plan - Assessment and Plan (Free Text) Assessment: DM / HTN Hypothyroidism CKD Dementia CVA s/p ERCP for biliary stent removal complicated by guidewire perforation of bile duct/liver capsule Bacteremia Plan: - Liquid diet as tolerated - Continue with antibiotic therapy as per ID - Creatinine worsening, monitor urine output and follow up nephrology recommendations - Management of atrial fibrillation (likely secondary to sepsis) as per cardiology team - Will continue to monitor patient clinical course
[2017-07-18] MEDS: (Novolin R) Insulin Human Regular 100 units/ml vial SC SCH ×4 (08:30→22:57)
--- NOTE | 2017-07-18 09:07 | CP.PCM.PN ---
<Malia Harris - Last Filed: 07/18/17 09:05> Subjective - Date & Time of Evaluation Date of Evaluation: 07/18/17 Time of Evaluation: 08:00 - Subjective Subjective: General Surgery Dr. Boyce Pt S&E @bedside. per nursing notes, pt was in Afib w/ RVR overnight. Amio drip started and pt converted NSR. Pt c/o R-sided chest pain. denies F/C, N/V. tolerating diet. (+)BM Objective - Vital Signs/Intake and Output Vital Signs (last 24 hours): Temp Pulse Resp BP Pulse Ox 98.5 F 76 21 118/46 L 96 07/18/17 08:00 07/18/17 08:26 07/18/17 08:26 07/18/17 08:26 07/18/17 08:26 Intake and Output: 07/18/17 07/18/17 06:59 18:59 Intake Total 1257.86 183.2 Output Total 185 50 Balance 1072.86 133.2 - Medications Medications: Current Medications Ascorbic Acid (Vitamin C 250 Mg Tab) 250 mg PO DAILY [facility] Last Admin: 07/17/17 10:03 Dose: 250 mg Benzocaine/Menthol (Cepacol Sore Throat) 1 love MT Q2 PRN PRN Reason: Sore Throat Last Admin: 07/17/17 20:25 Dose: 1 love Clopidogrel Bisulfate (Plavix) 75 mg PO DAILY [facility] Cyproheptadine HCl (Periactin) 4 mg PO BID [facility] Last Admin: 07/17/17 17:01 Dose: 4 mg Donepezil HCl (Aricept) 10 mg PO HS [facility] Last Admin: 07/17/17 22:02 Dose: 10 mg Ferrous Sulfate (Feosol) 325 mg PO Q12H [facility] Last Admin: 07/18/17 06:30 Dose: 325 mg Furosemide (Lasix) 20 mg IVP BID [facility] Last Admin: 07/17/17 17:01 Dose: 20 mg Gemfibrozil (Lopid) 600 mg PO BID [facility] Last Admin: 07/17/17 18:02 Dose: 600 mg Home Med (Fesoterodine Fumarate [Toviaz]) 8 mg PO DAILY [facility] Tigecycline 50 mg/ Dextrose 100 mls @ 100 mls/hr IVPB Q12H [facility] Last Admin: 07/18/17 01:00 Dose: 100 mls/hr Amiodarone HCl 900 mg/ (Dextrose) 500 mls @ 16.66 mls/hr IV .Q24H ONE; 0.5 MG/ MIN PRN Reason: Protocol Stop: 07/19/17 01:59 EST Last Admin: 07/18/17 02:00 Dose: 16.66 mls/hr Sodium Chloride (Sodium Chloride 0.9%) 1,000 mls @ 75 mls/hr IV .[id number] [facility] Last Admin: 07/17/17 22:00 Dose: Not Given Insulin Human Regular (Novolin R) 0 unit SC ACHS [facility] PRN Reason: Protocol Last Admin: 07/18/17 08:30 Dose: 1 unit Latanoprost (Xalatan Opht) 0 ml OU HS [facility] Last Admin: 07/17/17 22:00 Dose: 2.5 ml Levothyroxine Sodium (Synthroid) 50 mcg PO DAILY@0630 [facility] Last Admin: 07/18/17 06:30 Dose: 50 mcg Meclizine HCl (Antivert) 12.5 mg PO TID [facility] Last Admin: 07/17/17 18:02 Dose: 12.5 mg Metoprolol Succinate (Toprol Xl) 100 mg PO DAILY [facility] Last Admin: 07/14/17 13:41 Dose: 100 mg Ondansetron HCl (Zofran Inj) 4 mg IVP Q6 PRN PRN Reason: Nausea/Vomiting Pantoprazole Sodium (Protonix Inj) 40 mg IVP DAILY [facility] Last Admin: 07/17/17 10:04 Dose: 40 mg Rosuvastatin Calcium (Crestor) 10 mg PO HS [facility] Last Admin: 07/17/17 22:03 Dose: 10 mg Saccharomyces Boulardii (Florastor) 250 mg PO BID [facility] Last Admin: 07/17/17 17:02 Dose: 250 mg - Labs Labs: 07/18/17 06:34 07/18/17 06:35 Microbiology 07/14/17 08:50 Blood-Venous S.aureus & Coag-Neg Staph PNA FISH - Final 07/14/17 08:50 Blood-Venous Gram Stain - Final Enterococcus Faecium 07/14/17 08:50 Blood-Venous Gram Stain - Final 07/14/17 08:50 Blood-Venous Blood Culture - Preliminary 07/14/17 08:50 Blood-Venous Enterococcus Faecium - Constitutional Appears: Non-toxic, No Acute Distress - Head Exam Head Exam: NORMAL INSPECTION - Eye Exam Eye Exam: Normal appearance - ENT Exam ENT Exam: Mucous Membranes Moist - Respiratory Exam Respiratory Exam: NORMAL BREATHING PATTERN. absent: Accessory Muscle Use, Respiratory Distress - Cardiovascular Exam Cardiovascular Exam: absent: Bradycardia, Tachycardia - GI/Abdominal Exam GI & Abdominal Exam: Distended (minimal), Firm, Tenderness (TTP RUQ/epigastric) . absent: Guarding, Rigid, Rebound - Neurological Exam Neurological Exam: Alert, Awake - Psychiatric Exam Psychiatric exam: Normal Affect, Normal Mood - Skin Skin Exam: Dry, Intact, Normal Color, Warm Assessment and Plan - Assessment and Plan (Free Text) Assessment: 82 y/o M s/p ERCP w/ hepatic subcapsular/extracapsular air - Afib w/ RVR, elevated Trop --> f/u Cardiology recs - worsening Leukosytosis and (+)BCx --> abx changed to Tigicycline per ID - cont serial abd exams - cont FLD - f/u GI recs - cont management per Critical Care Pt discussed w/ Dr. Austen Harris DO PGY2 <Manohar Boyce - Last Filed: 07/19/17 16:15> Objective - Vital Signs/Intake and Output Vital Signs (last 24 hours): Temp Pulse Resp BP Pulse Ox 97.9 F 81 39 H 105/45 L 100 07/19/17 12:00 07/19/17 14:26 07/19/17 14:26 07/19/17 14:26 07/19/17 14:26 Intake and Output: 07/19/17 07/19/17 06:59 18:59 Intake Total 566.7 Output Total 625 Balance -58.3 - Medications Medications: Current Medications Ascorbic Acid (Vitamin C 250 Mg Tab) 250 mg PO DAILY [facility] Last Admin: 07/19/17 09:17 Dose: 250 mg Benzocaine/Menthol (Cepacol Sore Throat) 1 love MT Q2 PRN PRN Reason: Sore Throat Last Admin: 07/17/17 20:25 Dose: 1 love Calcium Acetate (Phoslo) 667 mg PO TID [facility] Last Admin: 07/19/17 13:59 Dose: 667 mg Clopidogrel Bisulfate (Plavix) 75 mg PO DAILY [facility] Cyproheptadine HCl (Periactin) 4 mg PO BID [facility] Last Admin: 07/19/17 09:17 Dose: 4 mg Donepezil HCl (Aricept) 10 mg PO HS [facility] Last Admin: 07/18/17 21:19 Dose: 10 mg Ferrous Sulfate (Feosol) 325 mg PO Q12H [facility] Last Admin: 07/19/17 06:04 Dose: 325 mg Gemfibrozil (Lopid) 600 mg PO BID [facility] Last Admin: 07/19/17 09:17 Dose: 600 mg Home Med (Fesoterodine Fumarate [Toviaz]) 8 mg PO DAILY [facility] Tigecycline 50 mg/ Dextrose 100 mls @ 100 mls/hr IVPB Q12H [facility] Last Admin: 07/19/17 12:23 Dose: 100 mls/hr Metronidazole 250 mg/ (Miscellaneous) 50 mls @ 100 mls/hr IVPB Q8 [facility] Last Admin: 07/19/17 13:59 Dose: 100 mls/hr Insulin Human Regular (Novolin R) 0 unit SC [facility] PRN Reason: Protocol Last Admin: 07/19/17 12:25 Dose: 5 unit Latanoprost (Xalatan Opht) 0 ml OU HS [facility] Last Admin: 07/18/17 21:19 Dose: 2.5 ml Levothyroxine Sodium (Synthroid) 50 mcg PO DAILY@0630 [facility] Last Admin: 07/19/17 06:04 Dose: 50 mcg Meclizine HCl (Antivert) 12.5 mg PO TID [facility] Last Admin: 07/19/17 13:59 Dose: 12.5 mg Metoprolol Succinate (Toprol Xl) 100 mg PO DAILY [facility] Last Admin: 07/14/17 13:41 Dose: 100 mg Morphine Sulfate (Morphine) 0.5 mg IVP Q6H PRN PRN Reason: Pain, severe (8-10) Last Admin: 07/19/17 13:10 Dose: 0.5 mg Ondansetron HCl (Zofran Inj) 4 mg IVP Q6 PRN PRN Reason: Nausea/Vomiting Pantoprazole Sodium (Protonix Inj) 40 mg IVP DAILY [facility] Last Admin: 07/19/17 09:16 Dose: 40 mg Rosuvastatin Calcium (Crestor) 10 mg PO HS [facility] Last Admin: 07/18/17 21:19 Dose: 10 mg Saccharomyces Boulardii (Florastor) 250 mg PO BID [facility] Last Admin: 07/19/17 09:18 Dose: 250 mg - Labs Labs: 07/19/17 06:45 07/19/17 06:45 PT 14.3 SECONDS (9.7-12.2) H 07/16/17 04:00 INR 1.3 07/16/17 04:00 APTT 29 SECONDS (21-34) 07/13/17 20:04 Attending/Attestation - Attestation I have personally seen and examined this patient.: Yes I have fully participated in the care of the patient.: Yes I have reviewed all pertinent clinical information, including history, physical exam and plan: Yes Notes (Text): 07/19/17 16:14 Pt was seen and examined at bedside Agree with above note and assessment Pt with Ileus WBC is trending up C.w IV antibiotics as per ID Enema Clear liquid diet only Plan d.w pt in detail
[2017-07-18] MEDS: Saccharomyces Boulardi 250 mg Cap PO SCH ×2 (09:34→17:34)
[2017-07-18] MEDS: Sodium Chloride 0.9% 1,000 ML IV SCH (09:36)
--- NOTE | 2017-07-18 10:28 | CP.PCM.PN ---
Subjective - Date & Time of Evaluation Date of Evaluation: 07/18/17 Time of Evaluation: 10:25 - Subjective Subjective: Poor response to IV lasix Still on IV fluids Still with abdominal pains hyponatremia worse-122; creat increased also more confused still with AFib cannot obtain ROS Objective - Vital Signs/Intake and Output Vital Signs (last 24 hours): Temp Pulse Resp BP Pulse Ox 98.5 F 76 26 H 128/49 L 94 L 07/18/17 08:00 07/18/17 09:26 07/18/17 09:26 07/18/17 09:39 07/18/17 09:26 Intake and Output: 07/18/17 07/18/17 06:59 18:59 Intake Total 1257.86 274.8 Output Total 185 85 Balance 1072.86 189.8 - Medications Medications: Current Medications Ascorbic Acid (Vitamin C 250 Mg Tab) 250 mg PO DAILY [facility] Last Admin: 07/18/17 09:34 Dose: 250 mg Benzocaine/Menthol (Cepacol Sore Throat) 1 love MT Q2 PRN PRN Reason: Sore Throat Last Admin: 07/17/17 20:25 Dose: 1 love Clopidogrel Bisulfate (Plavix) 75 mg PO DAILY [facility] Cyproheptadine HCl (Periactin) 4 mg PO BID [facility] Last Admin: 07/18/17 09:34 Dose: 4 mg Donepezil HCl (Aricept) 10 mg PO HS [facility] Last Admin: 07/17/17 22:02 Dose: 10 mg Ferrous Sulfate (Feosol) 325 mg PO Q12H [facility] Last Admin: 07/18/17 06:30 Dose: 325 mg Furosemide (Lasix) 20 mg IVP BID [facility] Last Admin: 07/18/17 09:39 Dose: 20 mg Gemfibrozil (Lopid) 600 mg PO BID [facility] Last Admin: 07/18/17 09:34 Dose: 600 mg Home Med (Fesoterodine Fumarate [Toviaz]) 8 mg PO DAILY [facility] Tigecycline 50 mg/ Dextrose 100 mls @ 100 mls/hr IVPB Q12H [facility] Last Admin: 07/18/17 01:00 Dose: 100 mls/hr Amiodarone HCl 900 mg/ (Dextrose) 500 mls @ 16.66 mls/hr IV .Q24H ONE; 0.5 MG/ MIN PRN Reason: Protocol Stop: 07/19/17 01:59 EST Last Admin: 07/18/17 02:00 Dose: 16.66 mls/hr Sodium Chloride (Sodium Chloride 0.9%) 1,000 mls @ 75 mls/hr IV .[id number] [facility] Last Admin: 07/18/17 09:36 Dose: 75 mls/hr Insulin Human Regular (Novolin R) 0 unit SC ACHS [facility] PRN Reason: Protocol Last Admin: 07/18/17 08:30 Dose: 1 unit Latanoprost (Xalatan Opht) 0 ml OU HS [facility] Last Admin: 07/17/17 22:00 Dose: 2.5 ml Levothyroxine Sodium (Synthroid) 50 mcg PO DAILY@0630 [facility] Last Admin: 07/18/17 06:30 Dose: 50 mcg Meclizine HCl (Antivert) 12.5 mg PO TID [facility] Last Admin: 07/18/17 09:33 Dose: 12.5 mg Metoprolol Succinate (Toprol Xl) 100 mg PO DAILY [facility] Last Admin: 07/14/17 13:41 Dose: 100 mg Ondansetron HCl (Zofran Inj) 4 mg IVP Q6 PRN PRN Reason: Nausea/Vomiting Pantoprazole Sodium (Protonix Inj) 40 mg IVP DAILY [facility] Last Admin: 07/18/17 09:35 Dose: 40 mg Rosuvastatin Calcium (Crestor) 10 mg PO HS [facility] Last Admin: 07/17/17 22:03 Dose: 10 mg Saccharomyces Boulardii (Florastor) 250 mg PO BID [facility] Last Admin: 07/18/17 09:34 Dose: 250 mg - Labs Labs: 07/18/17 06:34 07/18/17 06:35 PT 14.3 SECONDS (9.7-12.2) H 07/16/17 04:00 INR 1.3 07/16/17 04:00 APTT 29 SECONDS (21-34) 07/13/17 20:04 - Constitutional Appears: In Acute Distress, Chronically Ill - Head Exam Head Exam: ATRAUMATIC, NORMAL INSPECTION - Eye Exam Eye Exam: EOMI, Normal appearance - Neck Exam Neck Exam: Normal Inspection. absent: Tenderness - Cardiovascular Exam Cardiovascular Exam: Tachycardia, Irregular Rhythm - GI/Abdominal Exam GI & Abdominal Exam: Tenderness - Extremities Exam Extremities Exam: Normal Inspection. absent: Tenderness - Neurological Exam Neurological Exam: Altered, CN II-XII Intact - Skin Skin Exam: Dry, Warm Assessment and Plan (1) Hx of stroke without residual deficits Status: Acute (2) History of hypertension Status: Chronic (3) JAY JAY (acute kidney injury) Status: Acute (4) Type 2 diabetes mellitus with diabetic nephropathy Status: Acute (5) Chronic kidney disease, stage III (moderate) Status: Acute (6) Proteinuria Status: Acute (7) Hyponatremia with excess extracellular fluid volume Status: Acute - Assessment and Plan (Free Text) Plan: Stop IV NS Increase IV lasix CXR If not better will need dialysis
--- NOTE | 2017-07-18 11:30 | CP.PCM.PN ---
Subjective - Date & Time of Evaluation Date of Evaluation: 07/18/17 Time of Evaluation: 11:10 - Subjective Subjective: Hospitalist Progress Note Patient was seen and examined at 11:10 AM 07/18/17 ICU Bed #18 82 year old male with extensive medical history (please see Assessment and Plans below) who underwent ERCP for removal of CBD Stent on 07/13/17 after which he complained of abdominal and chest pain. A rapid response was called. CT Chest revealed pneumobilia as well as possible free air beneath Right Hemidiaphragm within Paraesophageal Soft Tissues. CT Abdomen/Pelvis revealed gas fluid and stranding in the subcapsular and extracapsular area around Left Lobe Liver. NGT was placed, patient made NPO, and was then transferred to ICU for further treatment and [id number]. Repeat CT Abdomen/Pelvis on showed gas and fluid around left lobe liver and along inferior vena cava that is unchanged, no evidence of extravasation of oral contrast from stomach or duodenem. GI Dr. Damian spoke with IR 07/15/17 and area is NOT amenable to percutaneous drainage. Surgery Team evaluated patient 07/14/17 an conservative management for now. Abdomen X Ray 07/16/17 showed NO obstruction. NGT tube was discontinued on 07/16/17 and he was started on clear liquid diet. During the evening of 07/16/17 patient developed Atrial Fibrillation and was started on Cardizem Drip. Troponin is elevated at 0.314 and this may be secondary to the Atrial Fibrillation. Blood Culture 07/14/17 showed Enterococcus faecium and therefore he was started on Tigecycline 07/17/17. As of 07/18/17 his Renal Function is continuing to decline despite IV Fluid administration and this may be secondary to ATN secondary to Sepsis. He also started to become Hyponatremic and this may be dilutional secondary to the IV Fluids (which were discontinued) and he was started on Lasix 60 mg IV BID 07/18/17. However if the Renal Function and the Hyponatremia do not improve then plan is to possible start HD on . Please see Assessment and Plans below for further details. Upon FULL ROS: When asking patient he states "dolor" pointing to lower aspects of his chest and pain all over his abdomen. Further ROS is not reliable secondary to patient's underlying dementia As per Nurse Jerri he had large bowel movement last night and he is tolerating clear liquid diet. Exam: Physical Exam - Constitutional Appears: Patient is moaning off and on and follows some instructions such as following light with his eyes,opening his mouth when requested. He is on O2 via NC at 4L. - Head Exam Head Exam: NORMAL INSPECTION, NORMOCEPHALIC - Eye Exam Eye Exam: EOMI, Normal appearance - ENT Exam ENT Exam: Mucous Membranes dry, NO pharyngeal erythema/exudate. NO lymphadenopathy - Neck Exam Neck exam: Positive for: Full Rom, Normal Inspection. Right Triple Lumen Catheter in place with no signs of surrounding cellulitis - Respiratory Exam Respiratory Exam: Clear to Auscultation Bilateral, NORMAL BREATHING PATTERN. This exam is limited by patient not breathing in deeply and exhaling as instructed. absent: Decreased Breath Sounds, Rhonchi, Wheezes - Cardiovascular Exam Cardiovascular Exam: REGULAR RHYTHM, +S1, +S2 - GI/Abdominal Exam GI & Abdominal Exam: Distended, Bowel Sounds are normal in all 4 quadrants, Tenderness diffusely as per patient (who moans whenever he is palpated in any of the quadrants), NO guarding/NO rebound tenderness. absent: Rigid - Extremities Exam Extremities exam: Positive for: normal inspection, Pulses are strong and equal , Capillary Refill is 2 seconds, NO edema - Back Exam Back exam: This was not done this morning - Neurological Exam Neurological exam: He is still in and out of consciousness but does participate in exam and answer "yes" and "no" questions in macanese - Psychiatric Exam Psychiatric exam: NOT performed this morning - Skin Skin Exam: Left Lower Buttock 0.2 cm area of former I&D site that has dry eschar. NON tender to palpation. Some hardness around this site but NO erythema , NO edema, and NO warmth. NO other ulcers noted Assessment and Plan: Assessment & Plan (1) Chest pain Assessment and Plan: Patient with atypical chest pain. Cardio Dr. Chau does not feel that this is cardiac related TSH, Free T4 are normal ECHO 07/13/17: LV EF is WNL, moderate concentric LVH, Grade I abnormal relaxation pattern Status: Acute (2) ERCP Guidewire Perforation of Liver Capsule vs Peripheral Bile Duct Assessment and Plan: s/p ERCP with removal of stent and sphincterotomy with Dr. Damian 07/13/17 CXR 07/13/17 does not show air under diaphragm. Chest CT 07/13/17 shows pneumobilia as well as possible free air beneath Right Hemidiaphragm within Paraesophagel soft tissues. CT Abdomen/Pelvis 07/13/17 shows gas fluid and stranding in the subcapsular and extracapsular area around Left Lobe Liver. CT Abdomen/Pelvis on 07/14/17 showed gas and fluid around left lobe liver and along inferior vena cava that is unchanged, no evidence of extravasation of oral contrast from stomach or duodenem. Abdomen X Ray 07/16/17 showed NO obstruction. GI Dr. Damian spoke with IR 07/15/17 and area is NOT amenable to percutaneous drainage. Surgery Dr. Crawford consulted: no surgical intervention at this time and keep NPO with NGT for now NGT was discontinued 07/16/17 and patient is now on clear liquid diet and is currently tolerating this without vomiting Status: Acute (3) Enterococcus faecium Bacteremia As per Blood Culture 07/14/17 Started on Tigecycline 50 mg IV Q12H after 100 mg initial infusion (07/17/17) Discontinued Meropenem, Ciprofloxicin, and Vancomycin (07/17/17) Status: Acute (4). Atrial Fibrillation/Elevated Troponin During the evening of 07/16/17 patient went into Atrial Fibrillation and was started on Cardizem Drip at 5 mg/hr. He is currently in Sinus Rhythm. Cardizem Drip was decreased to 2.5 mg/hr as his blood pressure was running low but patient went back into AF and therefore on evening 07/17/17 he was started on Amiodarone Drip 0.5 mg/min and he is currently in Sinus Rhythm. The Atrial Fibrillation is likely secondary to the increased sympathetic tone from the Sepsis and the elevated Troponin likely secondary to the Atril Fibrillation Cardiology Dr. Chau[facility] Group is following Status: Acute (5) Bilateral Pneumonia CT Abdomen/Pelvis 07/13/17 showed bibasilar lingular and right middle lobe mild nonspecific infiltrates consistent with atelectasis/pneumonia As patient was admitted to hospital within the last month (for Left Buttock Abscess) and has been on antibiotics, this is likely Health Care Associated Pneumonia with increased risk for Multidrug Resistence therefore he was treated with the following: Meropenem 500 mg IV Q6H (07/14/17 through 07/17/17), Ciprofloxacin 400 mg IV Q12H (07/14/17 through 07/16/17),Vancomycin 1 gm IV Q24H (07/14/17 through ) and then patient started on Tigecycline as mentioned above Urine Legionella Ag is negative F/U Urine Strep pneumoniae Ag Mycoplasma IgM is 81 Influenza A/B is negative Urine Culture is negative ID Dr. Langford is following Status: Acute (6). Anion Gap Metabolic Acidosis Sepsis: CODE SEPSIS was called 07/14/17 See Assessment and Plans #2, #3, #5 Due to the severe acidosis he was also started on D5W with 3 amps of NaHCO3 running at 100 ml/hour and this had resolved therefore the D5W NaHCO3 was discontinued 07/15/17. However the Acidosis returned and is likely secondary to the worsening Renal Function/Sepsis. Status: Acute (7). Hyperkalemia Likely secondary to the Anion Gap Metabolic Acidosis See Assessment and Plans #2 and #3 This has resolved Status: Acute (8). CKD Stage III/Worsening Renal Failure/Hyponatremia Nephrology Dr. Oconnell The worsening Renal Function likely secondary to the Sepsis Worsening Hyponatremia likely dilutional from the IVF initially used to help with the Renal Function. IVF have been discontinued. Lasix 60 mg IV 2x/day started 07/18/17 to help with the Hyponatremia If the Renal Function shows NO improvement by 07/19/17 then will start HD as per my conversation with Dr. Oconnell. Will have Surgery Team place HD access 07/19/17 should HD be required Satus: Chronic (9). Headache with Hx CVA Assessment and Plan: CT Head 07/13/17 was negative for bleed or acute process If NO surgical/IR intervention will then restart ASA Plavix 75 mg PO 1x/day Status: Acute (10) AD (Alzheimer's disease) Assessment and Plan: Aricept 10 mg PO daily. Status: Chronic (11) Choledocholithiasis Assessment and Plan: s/p ERCP with removal of stent and sphincterotomy with Dr. Damian 07/13/17 Status: Acute (12) Anemia Assessment and Plan: Likely secondary to Chronic Disease: CKD Stage III Resume Ferrous Sulfate 325 mg PO daily. HgB/Hct are stable Status: Chronic (13) Hx Left Gluteal abscess Assessment and Plan: Was I&D by surgery team on 06/26/17 Treated with Bactrim 800/160 PO Q12H for 7 days S/P discharge 06/27/17 Status: Chronic (14) HLD (hyperlipidemia) Assessment and Plan: Lopid 600 mg PO BID Patient takes Lipitor 80 mg PO HS which is not on formulary therefore Crestor 10 mg PO HS (renal dosed). Status: Chronic (15) HTN (hypertension) Assessment and Plan: As the patient's blood pressure is on the low end therefore the following medications are on HOLD: Amlodipine 10 mg PO daily, Metoprolol XL 100 mg PO daily, and Losartan 100 mg PO daily are all on HOLD Status: Chronic (16) Hx of stroke without residual deficits Assessment and Plan: CT Head 07/13/17 was negative for bleed or acute process Crestor 10 mg PO HS (renal dosed). Hold ASA as mentioned above Plavix 75 mg PO 1x/day Status: Chronic (17) Diabetes Assessment and Plan: Blood Glucose elevated at times: he is on clear liquids ISS Q6H Accuchecks Q6H Status: Chronic (18) History of hypothyroidism Assessment and Plan: Levothyroxine 50 mcg PO daily TSH, Free T4 are normal Status: Chronic (19) Overactive bladder Assessment and Plan: Festerodine 8 mg PO 1x/day Enlarged Prostate on CT Abdomen/Pelvis PSA ordered 07/14/17 but I do not see results. I believe he can follow this up as an outpatient. Status: Chronic (20) Hx of glaucoma Assessment and Plan: Patient's home med Travatan ggt not on formulary. Started Xalatan ggt in bilateral eyes. Status: Chronic (21) Hx of gastroesophageal reflux (GERD) Assessment and Plan: Protonix 10 mg IV daily Status: Chronic (22) Prophylactic measure Assessment and Plan: Protonix 10 mg daily SCDs Hold chemical anticoagulation for now for reasons mentioned above Ascorbic Acid 250 mg PO daily Florastor 250 mg PO 2x/day Zofran 4 mg IV Q6H PRN N/V Dilaudid 0.5 mg IV Q4H PRN Severe Pain Cyproheptadine 4 mg PO 2x/day Benzocaine/Menthol 1 love Q2H PRN sore throat Jonnathan Malin D.O. Objective - Vital Signs/Intake and Output Vital Signs (last 24 hours): Temp Pulse Resp BP Pulse Ox 98.5 F 77 27 H 100/48 L 99 07/18/17 08:00 07/18/17 10:26 07/18/17 10:26 07/18/17 10:26 07/18/17 10:26 Intake and Output: 07/18/17 07/18/17 06:59 18:59 Intake Total 1257.86 516.4 Output Total 185 120 Balance 1072.86 396.4 - Medications Medications: Current Medications Ascorbic Acid (Vitamin C 250 Mg Tab) 250 mg PO DAILY [facility] Last Admin: 07/18/17 09:34 Dose: 250 mg Benzocaine/Menthol (Cepacol Sore Throat) 1 love MT Q2 PRN PRN Reason: Sore Throat Last Admin: 07/17/17 20:25 Dose: 1 love Calcium Acetate (Phoslo) 667 mg PO TID [facility] Clopidogrel Bisulfate (Plavix) 75 mg PO DAILY [facility] Cyproheptadine HCl (Periactin) 4 mg PO BID [facility] Last Admin: 07/18/17 09:34 Dose: 4 mg Donepezil HCl (Aricept) 10 mg PO HS [facility] Last Admin: 07/17/17 22:02 Dose: 10 mg Ferrous Sulfate (Feosol) 325 mg PO Q12H [facility] Last Admin: 07/18/17 06:30 Dose: 325 mg Furosemide (Lasix) 60 mg IVP BID [facility] Gemfibrozil (Lopid) 600 mg PO BID [facility] Last Admin: 07/18/17 09:34 Dose: 600 mg Home Med (Fesoterodine Fumarate [Toviaz]) 8 mg PO DAILY [facility] Tigecycline 50 mg/ Dextrose 100 mls @ 100 mls/hr IVPB Q12H [facility] Last Admin: 07/18/17 01:00 Dose: 100 mls/hr Amiodarone HCl 900 mg/ (Dextrose) 500 mls @ 16.66 mls/hr IV .Q24H ONE; 0.5 MG/ MIN PRN Reason: Protocol Stop: 07/19/17 01:59 EST Last Admin: 07/18/17 02:00 Dose: 16.66 mls/hr Insulin Human Regular (Novolin R) 0 unit SC ACHS [facility] PRN Reason: Protocol Last Admin: 07/18/17 11:18 Dose: 2 unit Latanoprost (Xalatan Opht) 0 ml OU HS [facility] Last Admin: 07/17/17 22:00 Dose: 2.5 ml Levothyroxine Sodium (Synthroid) 50 mcg PO DAILY@0630 [facility] Last Admin: 07/18/17 06:30 Dose: 50 mcg Meclizine HCl (Antivert) 12.5 mg PO TID [facility] Last Admin: 07/18/17 09:33 Dose: 12.5 mg Metoprolol Succinate (Toprol Xl) 100 mg PO DAILY [facility] Last Admin: 07/14/17 13:41 Dose: 100 mg Ondansetron HCl (Zofran Inj) 4 mg IVP Q6 PRN PRN Reason: Nausea/Vomiting Pantoprazole Sodium (Protonix Inj) 40 mg IVP DAILY [facility] Last Admin: 07/18/17 09:35 Dose: 40 mg Rosuvastatin Calcium (Crestor) 10 mg PO HS [facility] Last Admin: 07/17/17 22:03 Dose: 10 mg Saccharomyces Boulardii (Florastor) 250 mg PO BID [facility] Last Admin: 07/18/17 09:34 Dose: 250 mg - Labs Labs: 07/18/17 06:34 07/18/17 06:35 PT 14.3 SECONDS (9.7-12.2) H 07/16/17 04:00 INR 1.3 07/16/17 04:00 APTT 29 SECONDS (21-34) 07/13/17 20:04
--- NOTE | 2017-07-18 12:08 | RAD ---
HISTORY: chf eval COMPARISON: Chest x-ray performed 07/15/17 TECHNIQUE: Chest, one view. FINDINGS: Right IJ approach central venous catheter extends the SVC. LUNGS: Diffuse haziness within the left hemithorax compatible with layering pleural effusion as well as consolidation at the left lung base. No definite pneumothorax. Mild atelectasis and trace effusion on the right. CARDIOVASCULAR: Borderline cardiomegaly. OSSEOUS STRUCTURES: Osseous demineralization. Degenerative changes. VISUALIZED UPPER ABDOMEN: Unremarkable. OTHER FINDINGS: None. IMPRESSION: Right IJ approach central venous catheter extends to the SVC. Diffuse haziness within the left hemithorax compatible with layering pleural effusion as well as consolidation at the left lung base. Mild atelectasis and trace effusion on the right.
--- NOTE | 2017-07-18 12:18 | RAD ---
HISTORY: evaluate ileus/free air COMPARISON: Portable abdomen radiograph performed 07/16/17 FINDINGS: Lower abdomen was excluded from view. BOWEL: Right upper quadrant surgical clips. Nonspecific bowel gas pattern. Residual oral contrast within the colon. No definite free air. BONES: Osseous demineralization. Degenerative changes. OTHER FINDINGS: Included portions of the lower chest demonstrate small left pleural effusion. Dense atherosclerotic calcifications of the aorta. IMPRESSION: Right upper quadrant surgical clips. Nonspecific bowel gas pattern. Residual oral contrast within the colon. No definite free air. Included portions of the lower chest demonstrate small left pleural effusion. Dense atherosclerotic calcifications of the aorta.
--- NOTE | 2017-07-18 16:16 | CP.PCM.PCO ---
Physician Communication Note - Physician Communication Note Physician Communication Note: Please see above.
[2017-07-18] MEDS: Latanoprost 2.5 ml Opht Soln OU SCH (21:19)
--- NOTE | 2017-07-18 22:19 | CP.CCUPN ---
CCU Subjective - Physician Review Events Since Last Encounter (Free Text): 07/18/17 22:16 patient is currently complaining of pain in the abdominal area, no nausea or vomiting, but tachypnea present. Abdominal pain noted. Unable to eat now. Received Lasix. Urine output Critical Care Time Spent (in minutes): 45 CCU Objective - Vital Signs / Intake & Output Vital Signs (Last 4 hours): Vital Signs Temp Pulse Resp BP Pulse Ox 07/18/17 21:26 85 39 H 135/59 L 98 07/18/17 21:00 84 38 H 98 07/18/17 20:44 85 40 H 137/67 99 07/18/17 20:17 84 31 H 147/56 L 99 07/18/17 20:00 97.8 F 83 33 H 100 07/18/17 19:26 83 32 H 147/56 L 100 07/18/17 19:00 83 36 H 97 07/18/17 18:26 85 37 H 150/60 99 Intake and Output (Last 8hrs): Intake & Output 07/18/17 07/18/17 07/18/17 06:59 14:59 22:59 Intake Total 782.9 802.8 446.2 Output Total 135 315 680 Balance 647.9 487.8 -233.8 Weight 160 lb Intake: Intake, IV Amount 782.9 532.8 116.2 Right Medial Port 182.9 132.8 116.2 Internal Jugular Right Proximal Port 600 400 Internal Jugular Oral 270 330 Output: Urine 135 315 680 Urethral ([place]) 135 315 680 Other: # Bowel Movements 0 0 - Physical Exam Narrative Physical Exam (Free Text): 07/18/17 22:16 patient is uncomfortable. Abdominal pain present. Edema noted. Head: Positive for: Atraumatic, Normocephalic Pupils: Positive for: PERRL Extroacular Muscles: Positive for: EOMI Mouth: Positive for: Dry Respiratory/Chest: Positive for: Rhonchi. Negative for: Respiratory Distress, Accessory Muscle Use Cardiovascular: Positive for: Normal S1, S2 Abdomen: Positive for: Tenderness, Distention Lower Extremity: Negative for: Edema Neurological: Positive for: GCS=15 Skin: Positive for: Warm, Normal Color Psychiatric: Positive for: Alert. Negative for: Oriented x 3 - Medications Active Medications: Active Medications Generic Name Dose Route Start Last Admin Trade Name Freq PRN Reason Stop Dose Admin Ascorbic Acid 250 mg 07/14/17 10:00 07/18/17 09:34 Vitamin C 250 Mg Tab PO 250 mg DAILY DARINEL Administration Benzocaine/Menthol 1 love 07/14/17 04:24 07/17/17 20:25 Cepacol Sore Throat MT 1 love Q2 PRN Administration Sore Throat Calcium Acetate 667 mg 07/18/17 14:00 07/18/17 17:34 Phoslo PO 667 mg TID DARINEL Administration Clopidogrel Bisulfate 75 mg 07/14/17 10:00 Plavix PO DAILY DARINEL Cyproheptadine HCl 4 mg 07/14/17 10:00 07/18/17 17:34 Periactin PO 4 mg BID DARINEL Administration Donepezil HCl 10 mg 07/13/17 22:00 07/18/17 21:19 Aricept PO 10 mg HS DARINEL Administration Ferrous Sulfate 325 mg 07/13/17 18:45 07/18/17 18:00 Feosol PO 325 mg Q12H DARINEL Administration Furosemide 60 mg 07/18/17 10:29 07/18/17 17:13 Lasix IVP 60 mg BID DARINEL Administration Gemfibrozil 600 mg 07/14/17 10:00 07/18/17 17:34 Lopid PO 600 mg BID DARINEL Administration Home Med 8 mg 07/14/17 10:00 Fesoterodine Fumarate [Toviaz] PO DAILY DARINEL Tigecycline 50 mg/ Dextrose 100 mls @ 100 mls/hr 07/18/17 01:00 07/18/17 12: 45 IVPB 100 mls/hr Q12H DARINEL Administration Amiodarone HCl 900 mg/ 500 mls @ 16.66 mls/hr 07/18/17 02:00 07/18/17 02:00 Dextrose IV 07/19/17 01:59 EST 16.66 mls/hr .Q24H ONE Administration Protocol 0.5 MG/MIN Insulin Human Regular 0 unit 07/17/17 07:30 07/18/17 16:42 Novolin R SC 2 unit ACHS DARINEL Administration Protocol Latanoprost 0 ml 07/13/17 22:00 07/18/17 21:19 Xalatan Opht OU 2.5 ml HS DARINEL Administration Levothyroxine Sodium 50 mcg 07/14/17 06:30 11/04/17 06:30 Synthroid PO 50 mcg DAILY@0630 DARINEL Administration Meclizine HCl 12.5 mg 07/14/17 10:00 07/18/17 17:35 Antivert PO 12.5 mg TID DARINEL Administration Metoprolol Succinate 100 mg 07/13/17 21:59 07/14/17 13:41 Toprol Xl PO 100 mg DAILY DARINEL Administration Ondansetron HCl 4 mg 07/14/17 00:38 Zofran Inj IVP Q6 PRN Nausea/Vomiting Pantoprazole Sodium 40 mg 07/14/17 10:00 07/18/17 09:35 Protonix Inj IVP 40 mg DAILY DARINEL Administration Rosuvastatin Calcium 10 mg 07/13/17 22:00 07/18/17 21:19 Crestor PO 10 mg HS DARINEL Administration Saccharomyces Boulardii 250 mg 07/14/17 10:00 07/18/17 17:34 Florastor PO 250 mg BID DARINEL Administration - Patient Studies Lab Studies: Microbiology Studies 07/17/17 08:00 S.aureus & Coag-Neg Staph PNA FISH - Final Blood-Venous Blood Culture - Preliminary Gram Positive Cocci Gram Stain - Final Lab Studies 07/18/17 07/18/17 07/18/17 Range/Units 21:14 16:24 11:04 WBC (4.8-10.8) K/uL RBC (4.40-5.90) Mil/uL Hgb (12.0-18.0) g/dL Hct (35.0-51.0) % MCV (80.0-94.0) fL MCH (27.0-31.0) pg MCHC (33.0-37.0) g/dL RDW (11.5-14.5) % Plt Count (130-400) K/uL MPV (7.2-11.7) fL Neut % (Auto) (50.0-75.0) % Lymph % (Auto) (20.0-40.0) % [place] % (Auto) (0.0-10.0) % Eos % (Auto) (0.0-4.0) % Baso % (Auto) (0.0-2.0) % Neut # (1.8-7.0) K/uL Lymph # (1.0-4.3) K/uL [place] # (0.0-0.8) K/uL Eos # (0.0-0.7) K/uL Baso # (0.0-0.2) K/uL Sodium (132-148) mmol/L Potassium (3.6-5.2) mmol/L Chloride (98-107) mmol/L Carbon Dioxide (22-30) mmol/L Anion Gap (10-20) BUN (9-20) mg/dL Creatinine (0.8-1.5) mg/dL Est GFR ( Amer) Est GFR (Non-Af Amer) POC Glucose (mg/dL) 277 H 233 H 230 H (65-110) mg/dL Random Glucose (75-110) mg/dL Calcium (8.6-10.4) mg/dl Phosphorus (2.5-4.5) mg/dL Magnesium (1.6-2.3) mg/dL Total Bilirubin (0.2-1.3) mg/dL AST (17-59) U/L ALT (21-72) U/L Alkaline Phosphatase (38-126) U/L Total Protein (6.3-8.3) g/dL Albumin (3.5-5.0) g/dL Globulin (2.2-3.9) gm/dL Albumin/Globulin Ratio (1.0-2.1) 07/18/17 07/18/17 07/18/17 Range/Units 08:15 06:35 06:34 WBC 19.0 H D (4.8-10.8) K/uL RBC 3.30 L (4.40-5.90) Mil/uL Hgb 9.2 L (12.0-18.0) g/dL Hct 27.9 L (35.0-51.0) % MCV 84.4 (80.0-94.0) fL MCH 27.9 (27.0-31.0) pg MCHC 33.1 (33.0-37.0) g/dL RDW 14.9 H (11.5-14.5) % Plt Count 262 (130-400) K/uL MPV 8.2 (7.2-11.7) fL Neut % (Auto) 71.6 (50.0-75.0) % Lymph % (Auto) 13.3 L (20.0-40.0) % [place] % (Auto) 11.1 H (0.0-10.0) % Eos % (Auto) 3.3 (0.0-4.0) % Baso % (Auto) 0.7 (0.0-2.0) % Neut # 13.6 H (1.8-7.0) K/uL Lymph # 2.5 (1.0-4.3) K/uL [place] # 2.1 H (0.0-0.8) K/uL Eos # 0.6 (0.0-0.7) K/uL Baso # 0.1 (0.0-0.2) K/uL Sodium 122 L (132-148) mmol/L Potassium 3.8 (3.6-5.2) mmol/L Chloride 94 L (98-107) mmol/L Carbon Dioxide 16 L (22-30) mmol/L Anion Gap 16 (10-20) BUN 60 H (9-20) mg/dL Creatinine 3.6 H (0.8-1.5) mg/dL Est GFR ( Amer) 20 Est GFR (Non-Af Amer) 16 POC Glucose (mg/dL) 196 H (65-110) mg/dL Random Glucose 184 H (75-110) mg/dL Calcium 7.3 L (8.6-10.4) mg/dl Phosphorus 5.7 H (2.5-4.5) mg/dL Magnesium 2.3 (1.6-2.3) mg/dL Total Bilirubin 0.6 (0.2-1.3) mg/dL AST 23 (17-59) U/L ALT 44 (21-72) U/L Alkaline Phosphatase 66 (38-126) U/L Total Protein 6.2 L (6.3-8.3) g/dL Albumin 2.9 L (3.5-5.0) g/dL Globulin 3.3 (2.2-3.9) gm/dL Albumin/Globulin Ratio 0.9 L (1.0-2.1) Laboratory Results - last 24 hr 07/18/17 07/18/17 07/18/17 06:34 06:35 08:15 WBC 19.0 H D RBC 3.30 L Hgb 9.2 L Hct 27.9 L MCV 84.4 MCH 27.9 MCHC 33.1 RDW 14.9 H Plt Count 262 MPV 8.2 Neut % (Auto) 71.6 Lymph % (Auto) 13.3 L [place] % (Auto) 11.1 H Eos % (Auto) 3.3 Baso % (Auto) 0.7 Neut # 13.6 H Lymph # 2.5 [place] # 2.1 H Eos # 0.6 Baso # 0.1 Sodium 122 L Potassium 3.8 Chloride 94 L Carbon Dioxide 16 L Anion Gap 16 BUN 60 H Creatinine 3.6 H Est GFR ( Amer) 20 Est GFR (Non-Af Amer) 16 POC Glucose (mg/dL) 196 H Random Glucose 184 H Calcium 7.3 L Phosphorus 5.7 H Magnesium 2.3 Total Bilirubin 0.6 AST 23 ALT 44 Alkaline Phosphatase 66 Total Protein 6.2 L Albumin 2.9 L Globulin 3.3 Albumin/Globulin Ratio 0.9 L 07/18/17 07/18/17 07/18/17 11:04 16:24 21:14 WBC RBC Hgb Hct MCV MCH MCHC RDW Plt Count MPV Neut % (Auto) Lymph % (Auto) [place] % (Auto) Eos % (Auto) Baso % (Auto) Neut # Lymph # [place] # Eos # Baso # Sodium Potassium Chloride Carbon Dioxide Anion Gap BUN Creatinine Est GFR ( Amer) Est GFR (Non-Af Amer) POC Glucose (mg/dL) 230 H 233 H 277 H Random Glucose Calcium Phosphorus Magnesium Total Bilirubin AST ALT Alkaline Phosphatase Total Protein Albumin Globulin Albumin/Globulin Ratio Fingerstick Blood Sugar Results: 233 Review of Systems - Review of Systems All systems: reviewed and no additional remarkable complaints except Review of Systems: episodes of tachycardia or tachypnea noted Currently on amiodarone Critical Care Progress Note - Nutrition Nutrition: Nutrition Category Date Time Status Liquid Diet [DIET] Diets 07/17/17 Lunch Active Assessment/Plan (1) JAY JAY (acute kidney injury) Assessment and plan: patient now with the acute kidney injury. Patient initially had stent placement, which was removed, complicated with bile duct injury. renal status worsening at this time. Condition is not improving. Overall situation is very poor at this time. Patient may need a respiratory support, renal support. Current Visit: Yes Status: Acute (2) Chronic kidney disease, stage III (moderate) Current Visit: Yes Status: Acute
[2017-07-18] MEDS ORDERED: HYDROmorphone 0.5 mg/0.5 ml ISec IVP STA (22:39)
[2017-07-18] MEDS: metroNIDAZOLE IV 500 mg/100 ml 250 MG in Premixed IV 1 EA IVPB SCH (22:55)
[2017-07-19] MEDS: Tigecycline 50 MG in Dextrose 5% In Water 100 ML IVPB SCH ×2 (01:17→12:23)
[2017-07-19] MEDS: metroNIDAZOLE IV 500 mg/100 ml 250 MG in Premixed IV 1 EA IVPB SCH ×3 (05:05→21:18)
[2017-07-19] MEDS: Levothyroxine 50 MCG TAB PO SCH (06:04)
[2017-07-19 07:03] LABS: BASO % 0.4 % (0.0-2.0); EOS # 0.4 K/uL (0.0-0.7); EOS % 3.5 % (0.0-4.0); HEMATOCRIT 27.9 % (35.0-51.0); LYMPH # 1.3 K/uL (1.0-4.3); LYMPH % 10.6 % (20.0-40.0); MEAN CELL VOLUME 83.9 fL (80.0-94.0); MEAN CORPUSCULAR HEMOGLOBIN 27.6 pg (27.0-31.0); MEAN CORPUSCULAR HGB CONC 32.9 g/dL (33.0-37.0); MEAN PLATELET VOLUME 8.4 fL (7.2-11.7); MONO # 1.4 K/uL (0.0-0.8); RED CELL DISTRIBUTION WIDTH 15.2 % (11.5-14.5); WHITE BLOOD COUNT 11.9 K/uL (4.8-10.8)
[2017-07-19 07:06] LABS: POTASSIUM 3.8 mmol/L (3.6-5.2)
[2017-07-19 07:08] LABS: BILIRUBIN,TOTAL 0.5 mg/dL (0.2-1.3)
[2017-07-19 07:09] LABS: ALB/GLOB RATIO 0.8 (1.0-2.1); CALCIUM 7.6 mg/dl (8.6-10.4); MAGNESIUM 2.3 mg/dL (1.6-2.3); PHOSPHOROUS 7.9 mg/dL (2.5-4.5); TOTAL PROTEIN 5.9 g/dL (6.3-8.3)
--- NOTE | 2017-07-19 08:14 | CP.CCUPN ---
CCU Subjective - Physician Review Events Since Last Encounter (Free Text): 07/19/17 08:11 Patient is still having increasing abdominal pain. His breathing is slightly better than yesterday, but still having cough. He is also having poor appetite, not eating well. Right upper quadrant pain noted. Patient received Lasix, diludid. But his urine output is extremely low 07/19/17 07/19/17 06:59 18:59 Intake Total Output Total Balance CCU Objective - Vital Signs / Intake & Output Vital Signs (Last 4 hours): Vital Signs Pulse Resp BP Pulse Ox 07/19/17 07:00 122 H 25 H 99 07/19/17 06:26 118 H 30 H 104/49 L 99 07/19/17 06:00 114 H 29 H 98 07/19/17 05:26 106 H 31 H 110/49 L 99 07/19/17 05:00 104 H 27 H 99 07/19/17 04:26 109 H 30 H 104/60 99 Intake and Output (Last 8hrs): Intake & Output 07/18/17 07/19/17 07/19/17 23:59 06:59 14:59 Intake Total Output Total Balance Intake: Intake, IV Amount Right Distal Port Internal Jugular Right Medial Port Internal Jugular Oral Output: Urine Urethral ([place]) Other: # Bowel Movements - Physical Exam Narrative Physical Exam (Free Text): 07/19/17 08:12 Vital signs reviewed No neck vein distention noted Chest decreased air entry in the left lung field. As noted CVS irregular heart sound, no murmur noted on amiodarone drip Abdomen right upper quadrant tenderness Extremities no pedal edema [employer] alert awake oriented, no functional neurological deficit Head: Positive for: Atraumatic, Normocephalic Pupils: Positive for: PERRL Extroacular Muscles: Positive for: EOMI Mouth: Positive for: Dry Respiratory/Chest: Positive for: Rhonchi. Negative for: Respiratory Distress, Accessory Muscle Use Cardiovascular: Positive for: Normal S1, S2 Abdomen: Positive for: Tenderness, Distention Lower Extremity: Negative for: Edema Neurological: Positive for: GCS=15 Skin: Positive for: Warm, Normal Color Psychiatric: Positive for: Alert. Negative for: Oriented x 3 - Medications Active Medications: Active Medications Generic Name Dose Route Start Last Admin Trade Name Freq PRN Reason Stop Dose Admin Ascorbic Acid 250 mg 07/14/17 10:00 07/18/17 09:34 Vitamin C 250 Mg Tab PO 250 mg DAILY DARINEL Administration Benzocaine/Menthol 1 love 07/14/17 04:24 07/17/17 20:25 Cepacol Sore Throat MT 1 love Q2 PRN Administration Sore Throat Calcium Acetate 667 mg 07/18/17 14:00 07/18/17 17:34 Phoslo PO 667 mg TID DARINEL Administration Clopidogrel Bisulfate 75 mg 07/14/17 10:00 Plavix PO DAILY DARINEL Cyproheptadine HCl 4 mg 07/14/17 10:00 07/18/17 17:34 Periactin PO 4 mg BID DARINEL Administration Donepezil HCl 10 mg 07/13/17 22:00 07/18/17 21:19 Aricept PO 10 mg HS DARINEL Administration Ferrous Sulfate 325 mg 07/13/17 18:45 07/19/17 06:04 Feosol PO 325 mg Q12H DARINEL Administration Furosemide 60 mg 07/18/17 10:29 07/18/17 17:13 Lasix IVP 60 mg BID DARINEL Administration Gemfibrozil 600 mg 07/14/17 10:00 07/18/17 17:34 Lopid PO 600 mg BID DARINEL Administration Home Med 8 mg 07/14/17 10:00 Fesoterodine Fumarate [Toviaz] PO DAILY DARINEL Tigecycline 50 mg/ Dextrose 100 mls @ 100 mls/hr 07/18/17 01:00 07/19/17 01: 17 EST IVPB 100 mls/hr Q12H DARINEL Administration Metronidazole 250 mg/ 50 mls @ 100 mls/hr 07/18/17 22:15 07/19/17 05:05 Miscellaneous IVPB 100 mls/hr Q8 DARINEL Administration Insulin Human Regular 0 unit 07/17/17 07:30 07/18/17 22:57 Novolin R SC Not Given ACHS DARINEL Protocol Latanoprost 0 ml 07/13/17 22:00 07/18/17 21:19 Xalatan Opht OU 2.5 ml HS DARINEL Administration Levothyroxine Sodium 50 mcg 07/14/17 06:30 07/19/17 06:04 Synthroid PO 50 mcg DAILY@0630 DARINEL Administration Meclizine HCl 12.5 mg 07/14/17 10:00 07/18/17 17:35 Antivert PO 12.5 mg TID DARINEL Administration Metoprolol Succinate 100 mg 07/13/17 21:59 07/14/17 13:41 Toprol Xl PO 100 mg DAILY DARINEL Administration Ondansetron HCl 4 mg 07/14/17 00:38 Zofran Inj IVP Q6 PRN Nausea/Vomiting Pantoprazole Sodium 40 mg 07/14/17 10:00 07/18/17 09:35 Protonix Inj IVP 40 mg DAILY DARINEL Administration Rosuvastatin Calcium 10 mg 07/13/17 22:00 07/18/17 21:19 Crestor PO 10 mg HS DARINEL Administration Saccharomyces Boulardii 250 mg 07/14/17 10:00 07/18/17 17:34 Florastor PO 250 mg BID DARINEL Administration - Patient Studies Lab Studies: Microbiology Studies 07/17/17 08:00 S.aureus & Coag-Neg Staph PNA FISH - Final Blood-Venous Blood Culture - Preliminary Gram Positive Cocci Gram Stain - Final Lab Studies 07/19/17 07/19/17 07/19/17 Range/Units 07:45 06:45 06:45 WBC 11.9 H (4.8-10.8) K/uL RBC 3.33 L (4.40-5.90) Mil/uL Hgb 9.2 L (12.0-18.0) g/dL Hct 27.9 L (35.0-51.0) % MCV 83.9 (80.0-94.0) fL MCH 27.6 (27.0-31.0) pg MCHC 32.9 L (33.0-37.0) g/dL RDW 15.2 H (11.5-14.5) % Plt Count 255 (130-400) K/uL MPV 8.4 (7.2-11.7) fL Neut % (Auto) 73.5 (50.0-75.0) % Lymph % (Auto) 10.6 L (20.0-40.0) % [place] % (Auto) 12.0 H (0.0-10.0) % Eos % (Auto) 3.5 (0.0-4.0) % Baso % (Auto) 0.4 (0.0-2.0) % Neut # 8.8 H (1.8-7.0) K/uL Lymph # 1.3 (1.0-4.3) K/uL [place] # 1.4 H (0.0-0.8) K/uL Eos # 0.4 (0.0-0.7) K/uL Baso # 0.0 (0.0-0.2) K/uL Sodium 123 L (132-148) mmol/L Potassium 3.8 (3.6-5.2) mmol/L Chloride 93 L (98-107) mmol/L Carbon Dioxide 16 L (22-30) mmol/L Anion Gap 18 (10-20) BUN 80 H (9-20) mg/dL Creatinine 4.5 H (0.8-1.5) mg/dL Est GFR ( Amer) 15 Est GFR (Non-Af Amer) 13 POC Glucose (mg/dL) 249 H (65-110) mg/dL Random Glucose 196 H (75-110) mg/dL Calcium 7.6 L (8.6-10.4) mg/dl Phosphorus 7.9 H (2.5-4.5) mg/dL Magnesium 2.3 (1.6-2.3) mg/dL Total Bilirubin 0.5 (0.2-1.3) mg/dL AST 20 (17-59) U/L ALT 40 (21-72) U/L Alkaline Phosphatase 79 (38-126) U/L Total Protein 5.9 L (6.3-8.3) g/dL Albumin 2.6 L (3.5-5.0) g/dL Globulin 3.2 (2.2-3.9) gm/dL Albumin/Globulin Ratio 0.8 L (1.0-2.1) 07/18/17 07/18/17 07/18/17 Range/Units 21:14 16:24 11:04 WBC (4.8-10.8) K/uL RBC (4.40-5.90) Mil/uL Hgb (12.0-18.0) g/dL Hct (35.0-51.0) % MCV (80.0-94.0) fL MCH (27.0-31.0) pg MCHC (33.0-37.0) g/dL RDW (11.5-14.5) % Plt Count (130-400) K/uL MPV (7.2-11.7) fL Neut % (Auto) (50.0-75.0) % Lymph % (Auto) (20.0-40.0) % [place] % (Auto) (0.0-10.0) % Eos % (Auto) (0.0-4.0) % Baso % (Auto) (0.0-2.0) % Neut # (1.8-7.0) K/uL Lymph # (1.0-4.3) K/uL [place] # (0.0-0.8) K/uL Eos # (0.0-0.7) K/uL Baso # (0.0-0.2) K/uL Sodium (132-148) mmol/L Potassium (3.6-5.2) mmol/L Chloride (98-107) mmol/L Carbon Dioxide (22-30) mmol/L Anion Gap (10-20) BUN (9-20) mg/dL Creatinine (0.8-1.5) mg/dL Est GFR ( Amer) Est GFR (Non-Af Amer) POC Glucose (mg/dL) 277 H 233 H 230 H (65-110) mg/dL Random Glucose (75-110) mg/dL Calcium (8.6-10.4) mg/dl Phosphorus (2.5-4.5) mg/dL Magnesium (1.6-2.3) mg/dL Total Bilirubin (0.2-1.3) mg/dL AST (17-59) U/L ALT (21-72) U/L Alkaline Phosphatase (38-126) U/L Total Protein (6.3-8.3) g/dL Albumin (3.5-5.0) g/dL Globulin (2.2-3.9) gm/dL Albumin/Globulin Ratio (1.0-2.1) Laboratory Results - last 24 hr 07/18/17 07/18/17 07/18/17 11:04 16:24 21:14 WBC RBC Hgb Hct MCV MCH MCHC RDW Plt Count MPV Neut % (Auto) Lymph % (Auto) [place] % (Auto) Eos % (Auto) Baso % (Auto) Neut # Lymph # [place] # Eos # Baso # Sodium Potassium Chloride Carbon Dioxide Anion Gap BUN Creatinine Est GFR ( Amer) Est GFR (Non-Af Amer) POC Glucose (mg/dL) 230 H 233 H 277 H Random Glucose Calcium Phosphorus Magnesium Total Bilirubin AST ALT Alkaline Phosphatase Total Protein Albumin Globulin Albumin/Globulin Ratio 07/19/17 07/19/17 07/19/17 06:45 06:45 07:45 WBC 11.9 H RBC 3.33 L Hgb 9.2 L Hct 27.9 L MCV 83.9 MCH 27.6 MCHC 32.9 L RDW 15.2 H Plt Count 255 MPV 8.4 Neut % (Auto) 73.5 Lymph % (Auto) 10.6 L [place] % (Auto) 12.0 H Eos % (Auto) 3.5 Baso % (Auto) 0.4 Neut # 8.8 H Lymph # 1.3 [place] # 1.4 H Eos # 0.4 Baso # 0.0 Sodium 123 L Potassium 3.8 Chloride 93 L Carbon Dioxide 16 L Anion Gap 18 BUN 80 H Creatinine 4.5 H Est GFR ( Amer) 15 Est GFR (Non-Af Amer) 13 POC Glucose (mg/dL) 249 H Random Glucose 196 H Calcium 7.6 L Phosphorus 7.9 H Magnesium 2.3 Total Bilirubin 0.5 AST 20 ALT 40 Alkaline Phosphatase 79 Total Protein 5.9 L Albumin 2.6 L Globulin 3.2 Albumin/Globulin Ratio 0.8 L Fingerstick Blood Sugar Results: 233 Review of Systems - Review of Systems All systems: reviewed and no additional remarkable complaints except Review of Systems: Right upper quadrant tenderness decreased air entry in the lung mays Critical Care Progress Note - Ventilator Checklist Head of Bed 30 Degrees: Yes PUD Prophalyxis: Yes DVT Prophylaxis: Yes - Nutrition Nutrition: Nutrition Category Date Time Status Liquid Diet [DIET] Diets 07/17/17 Lunch Active Assessment/Plan (1) JAY JAY (acute kidney injury) Assessment and plan: patient now with the acute kidney injury. Patient initially had stent placement, which was removed, complicated with bile duct injury. renal status worsening at this time. Condition is not improving. Overall situation is very poor at this time. Patient may need a respiratory support, renal support. In spite of Lasix, no urine output. Patient probably will need hemodialysis support. PMD already spoke to the family about that yesterday. Patient also has a enterococcus septicemia. Patient currently on antibiotic, also on Flagyl. Will continue the current supportive treatment. We'll get a CT of the chest to evaluate the pleural effusion, and possibly do a thoracentesis. Current Visit: Yes Status: Acute (2) Chronic kidney disease, stage III (moderate) Current Visit: Yes Status: Acute
[2017-07-19] MEDS: (Novolin R) Insulin Human Regular 100 units/ml vial SC SCH ×4 (08:24→21:22)
--- NOTE | 2017-07-19 08:43 | CP.PCM.PN ---
Subjective - Date & Time of Evaluation Date of Evaluation: 07/19/17 Time of Evaluation: 08:36 - Subjective Subjective: Patient seen and examined, resting in bed, remains in ICU critical care. No acute events overnight, he continues to endorse generalized abdominal pain and has poor appetite. He denies nausea, vomiting, fever/chills. As per nursing staff, patient with one scant bowel movement overnight. Review of vitals from today shows tachycardia. Review of systems not available due to underlying patient dementia. Objective - Vital Signs/Intake and Output Vital Signs (last 24 hours): Temp Pulse Resp BP Pulse Ox 98 F 122 H 25 H 104/49 L 99 07/19/17 04:00 07/19/17 07:00 07/19/17 07:00 07/19/17 06:26 07/19/17 07:00 Intake and Output: 07/19/17 07/19/17 06:59 18:59 Intake Total Output Total Balance - Medications Medications: Current Medications Ascorbic Acid (Vitamin C 250 Mg Tab) 250 mg PO DAILY [facility] Last Admin: 07/18/17 09:34 Dose: 250 mg Benzocaine/Menthol (Cepacol Sore Throat) 1 love MT Q2 PRN PRN Reason: Sore Throat Last Admin: 07/17/17 20:25 Dose: 1 love Calcium Acetate (Phoslo) 667 mg PO TID [facility] Last Admin: 07/18/17 17:34 Dose: 667 mg Clopidogrel Bisulfate (Plavix) 75 mg PO DAILY [facility] Cyproheptadine HCl (Periactin) 4 mg PO BID [facility] Last Admin: 07/18/17 17:34 Dose: 4 mg Donepezil HCl (Aricept) 10 mg PO HS [facility] Last Admin: 07/18/17 21:19 Dose: 10 mg Ferrous Sulfate (Feosol) 325 mg PO Q12H [facility] Last Admin: 07/19/17 06:04 Dose: 325 mg Furosemide (Lasix) 60 mg IVP BID [facility] Last Admin: 07/18/17 17:13 Dose: 60 mg Gemfibrozil (Lopid) 600 mg PO BID [facility] Last Admin: 07/18/17 17:34 Dose: 600 mg Home Med (Fesoterodine Fumarate [Toviaz]) 8 mg PO DAILY [facility] Tigecycline 50 mg/ Dextrose 100 mls @ 100 mls/hr IVPB Q12H [facility] Last Admin: 07/19/17 01:17 EST Dose: 100 mls/hr Metronidazole 250 mg/ (Miscellaneous) 50 mls @ 100 mls/hr IVPB Q8 [facility] Last Admin: 07/19/17 05:05 Dose: 100 mls/hr Insulin Human Regular (Novolin R) 0 unit SC ACHS DARINEL PRN Reason: Protocol Last Admin: 07/19/17 08:24 Dose: 2 unit Latanoprost (Xalatan Opht) 0 ml OU HS [facility] Last Admin: 07/18/17 21:19 Dose: 2.5 ml Levothyroxine Sodium (Synthroid) 50 mcg PO DAILY@0630 [facility] Last Admin: 07/19/17 06:04 Dose: 50 mcg Meclizine HCl (Antivert) 12.5 mg PO TID [facility] Last Admin: 07/18/17 17:35 Dose: 12.5 mg Metoprolol Succinate (Toprol Xl) 100 mg PO DAILY [facility] Last Admin: 07/14/17 13:41 Dose: 100 mg Ondansetron HCl (Zofran Inj) 4 mg IVP Q6 PRN PRN Reason: Nausea/Vomiting Pantoprazole Sodium (Protonix Inj) 40 mg IVP DAILY [facility] Last Admin: 07/18/17 09:35 Dose: 40 mg Rosuvastatin Calcium (Crestor) 10 mg PO HS [facility] Last Admin: 07/18/17 21:19 Dose: 10 mg Saccharomyces Boulardii (Florastor) 250 mg PO BID [facility] Last Admin: 07/18/17 17:34 Dose: 250 mg - Labs Labs: 07/19/17 06:45 07/19/17 06:45 PT 14.3 SECONDS (9.7-12.2) H 07/16/17 04:00 INR 1.3 07/16/17 04:00 APTT 29 SECONDS (21-34) 07/13/17 20:04 - Constitutional Appears: Non-toxic, Confused - Head Exam Head Exam: NORMAL INSPECTION - Eye Exam Eye Exam: EOMI, Normal appearance - ENT Exam ENT Exam: Mucous Membranes Dry - Respiratory Exam Respiratory Exam: Rales - Cardiovascular Exam Cardiovascular Exam: +S1, +S2 - GI/Abdominal Exam GI & Abdominal Exam: Soft, Tenderness, Hypoactive Bowel Sounds Additional comments: tympanic to percussion generalized tenderness to palpation - Extremities Exam Extremities Exam: Normal Inspection - Skin Skin Exam: Dry, Intact, Normal Color, Warm Assessment and Plan - Assessment and Plan (Free Text) Assessment: DM / HTN Hypothyroidism Dementia Acute on chronic renal insufficiency Sepsis, bacteremia CVA s/p ERCP for biliary stent removal complicated by guidewire perforation of bile duct/liver capsule Plan: - Liquid diet as tolerated - Creatinine continues to rise, urine output diminished - follow up nephrology recommendations. Patient family currently refusing consideration of dialysis. - Continue with antibiotic therapy as per ID, repeat blood culture again positive for gram + cocci - Given ongoing abdominal discomfort and leukocytosis, would suggest repeat CT imaging to assess for progression in size of abdominal fluid collection - Management of atrial fibrillation as per medical team, patient currently on amiodarone - Will continue to follow patient clinical course, discussed with Dr. Dawkins
--- NOTE | 2017-07-19 09:16 | CP.PCM.PN ---
<Buzz Roblero - Last Filed: 07/19/17 09:29> Subjective - Date & Time of Evaluation Date of Evaluation: 07/19/17 Time of Evaluation: 09:14 - Subjective Subjective: Surgery: Dr. Boyce Pt seen and examined. Still in a-fib on amiodarone. He continues to have diffuse abd pain. He is on full liquid diet. Per nursing, very poor PO intake. No N/V. He did have BM overnight and yesterday. Objective - Vital Signs/Intake and Output Vital Signs (last 24 hours): Temp Pulse Resp BP Pulse Ox 99 F 99 H 31 H 110/56 L 96 07/19/17 08:00 07/19/17 08:26 07/19/17 08:26 07/19/17 08:26 07/19/17 08:26 Intake and Output: 07/19/17 07/19/17 06:59 18:59 Intake Total 153.2 Output Total 100 Balance 53.2 - Medications Medications: Current Medications Ascorbic Acid (Vitamin C 250 Mg Tab) 250 mg PO DAILY [facility] Last Admin: 07/18/17 09:34 Dose: 250 mg Benzocaine/Menthol (Cepacol Sore Throat) 1 love MT Q2 PRN PRN Reason: Sore Throat Last Admin: 07/17/17 20:25 Dose: 1 love Calcium Acetate (Phoslo) 667 mg PO TID [facility] Last Admin: 07/18/17 17:34 Dose: 667 mg Clopidogrel Bisulfate (Plavix) 75 mg PO DAILY [facility] Cyproheptadine HCl (Periactin) 4 mg PO BID [facility] Last Admin: 07/18/17 17:34 Dose: 4 mg Donepezil HCl (Aricept) 10 mg PO HS [facility] Last Admin: 07/18/17 21:19 Dose: 10 mg Ferrous Sulfate (Feosol) 325 mg PO Q12H [facility] Last Admin: 07/19/17 06:04 Dose: 325 mg Furosemide (Lasix) 60 mg IVP BID [facility] Last Admin: 07/18/17 17:13 Dose: 60 mg Gemfibrozil (Lopid) 600 mg PO BID [facility] Last Admin: 07/18/17 17:34 Dose: 600 mg Home Med (Fesoterodine Fumarate [Toviaz]) 8 mg PO DAILY [facility] Tigecycline 50 mg/ Dextrose 100 mls @ 100 mls/hr IVPB Q12H [facility] Last Admin: 07/19/17 01:17 EST Dose: 100 mls/hr Metronidazole 250 mg/ (Miscellaneous) 50 mls @ 100 mls/hr IVPB Q8 [facility] Last Admin: 07/19/17 05:05 Dose: 100 mls/hr Insulin Human Regular (Novolin R) 0 unit SC ACHS [facility] PRN Reason: Protocol Last Admin: 07/19/17 08:24 Dose: 2 unit Latanoprost (Xalatan Opht) 0 ml OU HS [facility] Last Admin: 07/18/17 21:19 Dose: 2.5 ml Levothyroxine Sodium (Synthroid) 50 mcg PO DAILY@0630 [facility] Last Admin: 07/19/17 06:04 Dose: 50 mcg Meclizine HCl (Antivert) 12.5 mg PO TID [facility] Last Admin: 07/18/17 17:35 Dose: 12.5 mg Metoprolol Succinate (Toprol Xl) 100 mg PO DAILY [facility] Last Admin: 07/14/17 13:41 Dose: 100 mg Ondansetron HCl (Zofran Inj) 4 mg IVP Q6 PRN PRN Reason: Nausea/Vomiting Pantoprazole Sodium (Protonix Inj) 40 mg IVP DAILY [facility] Last Admin: 07/18/17 09:35 Dose: 40 mg Rosuvastatin Calcium (Crestor) 10 mg PO HS [facility] Last Admin: 07/18/17 21:19 Dose: 10 mg Saccharomyces Boulardii (Florastor) 250 mg PO BID [facility] Last Admin: 07/18/17 17:34 Dose: 250 mg - Labs Labs: 07/19/17 06:45 07/19/17 06:45 PT 14.3 SECONDS (9.7-12.2) H 07/16/17 04:00 INR 1.3 07/16/17 04:00 APTT 29 SECONDS (21-34) 07/13/17 20:04 - Constitutional Appears: Non-toxic, No Acute Distress - Head Exam Head Exam: ATRAUMATIC, NORMOCEPHALIC - Eye Exam Eye Exam: EOMI - ENT Exam ENT Exam: Mucous Membranes Moist - Neck Exam Neck Exam: Full ROM - Respiratory Exam Respiratory Exam: NORMAL BREATHING PATTERN. absent: Accessory Muscle Use, Respiratory Distress - Cardiovascular Exam Cardiovascular Exam: Tachycardia - GI/Abdominal Exam GI & Abdominal Exam: Soft, Tenderness (diffuse). absent: Distended, Firm, Guarding, Rigid, Rebound - Extremities Exam Extremities Exam: absent: Calf Tenderness, Pedal Edema - Neurological Exam Neurological Exam: Alert, Awake - Skin Skin Exam: Dry, Warm Assessment and Plan - Assessment and Plan (Free Text) Assessment: 82M s/p ERCP w/ hepatic subcapsular/extracapsular air -Leukocytosis improved, abd pain persists, last CT 07/14, will repeat CT w. PO contrast only -c/w abx per ID -continue w. full liquid diet -serial abd exams -worsening renal fxn noted -d/w attending Osbaldo PGY3 <Manohar Boyce - Last Filed: 07/19/17 16:16> Objective - Vital Signs/Intake and Output Vital Signs (last 24 hours): Temp Pulse Resp BP Pulse Ox 97.9 F 81 39 H 105/45 L 100 07/19/17 12:00 07/19/17 14:26 07/19/17 14:26 07/19/17 14:26 07/19/17 14:26 Intake and Output: 07/19/17 07/19/17 06:59 18:59 Intake Total 566.7 Output Total 625 Balance -58.3 - Medications Medications: Current Medications Ascorbic Acid (Vitamin C 250 Mg Tab) 250 mg PO DAILY [facility] Last Admin: 07/19/17 09:17 Dose: 250 mg Benzocaine/Menthol (Cepacol Sore Throat) 1 love MT Q2 PRN PRN Reason: Sore Throat Last Admin: 07/17/17 20:25 Dose: 1 love Calcium Acetate (Phoslo) 667 mg PO TID [facility] Last Admin: 07/19/17 13:59 Dose: 667 mg Clopidogrel Bisulfate (Plavix) 75 mg PO DAILY [facility] Cyproheptadine HCl (Periactin) 4 mg PO BID [facility] Last Admin: 07/19/17 09:17 Dose: 4 mg Donepezil HCl (Aricept) 10 mg PO HS [facility] Last Admin: 07/18/17 21:19 Dose: 10 mg Ferrous Sulfate (Feosol) 325 mg PO Q12H [facility] Last Admin: 07/19/17 06:04 Dose: 325 mg Gemfibrozil (Lopid) 600 mg PO BID [facility] Last Admin: 07/19/17 09:17 Dose: 600 mg Home Med (Fesoterodine Fumarate [Toviaz]) 8 mg PO DAILY [facility] Tigecycline 50 mg/ Dextrose 100 mls @ 100 mls/hr IVPB Q12H [facility] Last Admin: 07/19/17 12:23 Dose: 100 mls/hr Metronidazole 250 mg/ (Miscellaneous) 50 mls @ 100 mls/hr IVPB Q8 [facility] Last Admin: 07/19/17 13:59 Dose: 100 mls/hr Insulin Human Regular (Novolin R) 0 unit SC ACHS [facility] PRN Reason: Protocol Last Admin: 07/19/17 12:25 Dose: 5 unit Latanoprost (Xalatan Opht) 0 ml OU HS [facility] Last Admin: 07/18/17 21:19 Dose: 2.5 ml Levothyroxine Sodium (Synthroid) 50 mcg PO DAILY@0630 [facility] Last Admin: 07/19/17 06:04 Dose: 50 mcg Meclizine HCl (Antivert) 12.5 mg PO TID [facility] Last Admin: 07/19/17 13:59 Dose: 12.5 mg Metoprolol Succinate (Toprol Xl) 100 mg PO DAILY [facility] Last Admin: 07/14/17 13:41 Dose: 100 mg Morphine Sulfate (Morphine) 0.5 mg IVP Q6H PRN PRN Reason: Pain, severe (8-10) Last Admin: 07/19/17 13:10 Dose: 0.5 mg Ondansetron HCl (Zofran Inj) 4 mg IVP Q6 PRN PRN Reason: Nausea/Vomiting Pantoprazole Sodium (Protonix Inj) 40 mg IVP DAILY [facility] Last Admin: 07/19/17 09:16 Dose: 40 mg Rosuvastatin Calcium (Crestor) 10 mg PO HS [facility] Last Admin: 07/18/17 21:19 Dose: 10 mg Saccharomyces Boulardii (Florastor) 250 mg PO BID [facility] Last Admin: 07/19/17 09:18 Dose: 250 mg - Labs Labs: 07/19/17 06:45 07/19/17 06:45 PT 14.3 SECONDS (9.7-12.2) H 07/16/17 04:00 INR 1.3 07/16/17 04:00 APTT 29 SECONDS (21-34) 07/13/17 20:04 Attending/Attestation - Attestation I have fully participated in the care of the patient.: Yes I have reviewed all pertinent clinical information, including history, physical exam and plan: Yes Notes (Text): 07/19/17 16:15 Pt had bowel movement Ileus is improving WBC is trending down C/w IV antibiotics C.w current mx Plan d.w pt in detail
[2017-07-19] MEDS: Saccharomyces Boulardi 250 mg Cap PO SCH ×2 (09:18→17:50)
[2017-07-19] MEDS ORDERED: Iohexol 240 (50 ml) PO PRN (11:30)
--- NOTE | 2017-07-19 11:38 | CP.PCM.PN ---
Subjective - Date & Time of Evaluation Date of Evaluation: 07/19/17 Time of Evaluation: 09:00 - Subjective Subjective: s/p ERCP guidewire perforation of hepatic/biliary parenchyma, subtype C ( complicated by subcapsular hematoma/biloma) for repeat CT abdomen blood c/s + VRE Objective - Vital Signs/Intake and Output Vital Signs (last 24 hours): Temp Pulse Resp BP Pulse Ox 99 F 99 H 31 H 110/56 L 96 07/19/17 08:00 07/19/17 08:26 07/19/17 08:26 07/19/17 09:17 07/19/17 08:26 Intake and Output: 07/19/17 07/19/17 06:59 18:59 Intake Total 153.2 Output Total 100 Balance 53.2 - Medications Medications: Current Medications Ascorbic Acid (Vitamin C 250 Mg Tab) 250 mg PO DAILY [facility] Last Admin: 07/19/17 09:17 Dose: 250 mg Benzocaine/Menthol (Cepacol Sore Throat) 1 love MT Q2 PRN PRN Reason: Sore Throat Last Admin: 07/17/17 20:25 Dose: 1 love Calcium Acetate (Phoslo) 667 mg PO TID [facility] Last Admin: 07/19/17 09:18 Dose: 667 mg Clopidogrel Bisulfate (Plavix) 75 mg PO DAILY [facility] Cyproheptadine HCl (Periactin) 4 mg PO BID [facility] Last Admin: 07/19/17 09:17 Dose: 4 mg Donepezil HCl (Aricept) 10 mg PO HS [facility] Last Admin: 07/18/17 21:19 Dose: 10 mg Ferrous Sulfate (Feosol) 325 mg PO Q12H [facility] Last Admin: 07/19/17 06:04 Dose: 325 mg Furosemide (Lasix) 60 mg IVP BID [facility] Last Admin: 07/19/17 09:17 Dose: 60 mg Gemfibrozil (Lopid) 600 mg PO BID [facility] Last Admin: 07/19/17 09:17 Dose: 600 mg Home Med (Fesoterodine Fumarate [Toviaz]) 8 mg PO DAILY [facility] Tigecycline 50 mg/ Dextrose 100 mls @ 100 mls/hr IVPB Q12H [facility] Last Admin: 07/19/17 01:17 EST Dose: 100 mls/hr Metronidazole 250 mg/ (Miscellaneous) 50 mls @ 100 mls/hr IVPB Q8 [facility] Last Admin: 07/19/17 05:05 Dose: 100 mls/hr Insulin Human Regular (Novolin R) 0 unit SC ACHS [facility] PRN Reason: Protocol Last Admin: 07/19/17 08:24 Dose: 2 unit Iohexol (Omnipaque 240 (50 Ml)) 50 ml PO ONCE PRN PRN Reason: FOR SCAN Latanoprost (Xalatan Opht) 0 ml OU HS [facility] Last Admin: 07/18/17 21:19 Dose: 2.5 ml Levothyroxine Sodium (Synthroid) 50 mcg PO DAILY@0630 [facility] Last Admin: 07/19/17 06:04 Dose: 50 mcg Meclizine HCl (Antivert) 12.5 mg PO TID [facility] Last Admin: 07/19/17 09:21 Dose: 12.5 mg Metoprolol Succinate (Toprol Xl) 100 mg PO DAILY [facility] Last Admin: 07/14/17 13:41 Dose: 100 mg Ondansetron HCl (Zofran Inj) 4 mg IVP Q6 PRN PRN Reason: Nausea/Vomiting Pantoprazole Sodium (Protonix Inj) 40 mg IVP DAILY [facility] Last Admin: 07/19/17 09:16 Dose: 40 mg Rosuvastatin Calcium (Crestor) 10 mg PO HS [facility] Last Admin: 07/18/17 21:19 Dose: 10 mg Saccharomyces Boulardii (Florastor) 250 mg PO BID [facility] Last Admin: 07/19/17 09:18 Dose: 250 mg - Labs Labs: 07/19/17 06:45 07/19/17 06:45 PT 14.3 SECONDS (9.7-12.2) H 07/16/17 04:00 INR 1.3 07/16/17 04:00 APTT 29 SECONDS (21-34) 07/13/17 20:04 - Constitutional Appears: Non-toxic, Confused, Cachectic, Chronically Ill - Head Exam Head Exam: ATRAUMATIC, NORMOCEPHALIC - Eye Exam Eye Exam: absent: Scleral icterus - ENT Exam ENT Exam: Mucous Membranes Dry - Neck Exam Neck Exam: absent: Lymphadenopathy - Respiratory Exam Respiratory Exam: Decreased Breath Sounds - Cardiovascular Exam Cardiovascular Exam: REGULAR RHYTHM - GI/Abdominal Exam GI & Abdominal Exam: Distended, Tenderness - Rectal Exam Rectal Exam: Deferred - Exam Exam: NORMAL INSPECTION - Back Exam Back Exam: absent: CVA tenderness (L), CVA tenderness (R), paraspinal tenderness - Neurological Exam Neurological Exam: Alert, Awake - Psychiatric Exam Psychiatric exam: Depressed Assessment and Plan (1) JAY JAY (acute kidney injury) Status: Acute (2) CVA, old, cognitive deficits Status: Acute (3) Chronic kidney disease, stage III (moderate) Status: Acute (4) Headache Status: Acute (5) Hx of gastroesophageal reflux (GERD) Status: Acute - Assessment and Plan (Free Text) Assessment: s/p ERCP guidewire perforation of hepatic/biliary parenchyma, subtype C ( complicated by subcapsular hematoma/biloma) sepsis resolving cont iv rx GI and surg follow up Plan: May need LILY
--- NOTE | 2017-07-19 12:26 | CP.PCM.PN ---
Subjective - Date & Time of Evaluation Date of Evaluation: 07/19/17 Time of Evaluation: 11:45 - Subjective Subjective: Hospitalist Progress Note Patient was seen and examined at 11:10 AM 07/19/17 ICU Bed #18 82 year old male with extensive medical history (please see Assessment and Plans below) who underwent ERCP for removal of CBD Stent on 07/13/17 after which he complained of abdominal and chest pain. A rapid response was called. CT Chest revealed pneumobilia as well as possible free air beneath Right Hemidiaphragm within Paraesophageal Soft Tissues. CT Abdomen/Pelvis revealed gas fluid and stranding in the subcapsular and extracapsular area around Left Lobe Liver. NGT was placed, patient made NPO, and was then transferred to ICU for further treatment and [id number]/17. Repeat CT Abdomen/Pelvis on showed gas and fluid around left lobe liver and along inferior vena cava that is unchanged, no evidence of extravasation of oral contrast from stomach or duodenem. GI Dr. Damian spoke with IR 07/15/17 and area is NOT amenable to percutaneous drainage. Surgery Team evaluated patient 07/14/17 an conservative management for now. Abdomen X Ray 07/16/17 showed NO obstruction. NGT tube was discontinued on 07/16/17 and he was started on clear liquid diet. During the evening of 07/16/17 patient developed Atrial Fibrillation and was started on Cardizem Drip. Troponin is elevated at 0.314 and this may be secondary to the Atrial Fibrillation. Blood Culture 07/14/17 showed Enterococcus faecium and therefore he was started on Tigecycline 07/17/17. As of 07/18/17 his Renal Function is continuing to decline despite IV Fluid administration and this may be secondary to ATN secondary to Sepsis. He also started to become Hyponatremic and this may be dilutional secondary to the IV Fluids (which were discontinued) and he was started on Lasix 60 mg IV BID 07/18/17. However the patient's renal function continued to worsen on 07/19/17. Therefore consent was obtained from Horacio Solorio [phone] (with whom the patient lives with and who is the primary decision maker) for HD and for Dialysis Catheter placement on 07/19/17. Sales Donor Recruitment Representative coupon collection clerk Dr. Larsen was notified and HD orders have been provided by Dr. Larsen to HD Nurse Ramon Garibay to start HD once Dialysis Catheter is placed by the Surgical Team which is planned for morning 07/20/17. Please see below in Assessment and Plan for further details. Upon FULL ROS: When asking patient he states "dolor" pointing to lower aspects of his chest and pain all over his abdomen. Further ROS is not reliable secondary to patient's underlying dementia As per Nurse Rakel patient had small bowel movement this morning and is tolerating clear liquid diet Exam: Physical Exam - Constitutional Appears: Patient is moaning off and on and follows some instructions such as following light with his eyes,opening his mouth when requested. He is on O2 via NC at 4L. - Head Exam Head Exam: NORMAL INSPECTION, NORMOCEPHALIC - Eye Exam Eye Exam: EOMI, Normal appearance - ENT Exam ENT Exam: Mucous Membranes dry, NO pharyngeal erythema/exudate. NO lymphadenopathy - Neck Exam Neck exam: Positive for: Full Rom, Normal Inspection. Right Triple Lumen Catheter in place with no signs of surrounding cellulitis - Respiratory Exam Respiratory Exam: Clear to Auscultation Bilateral, NORMAL BREATHING PATTERN. This exam is limited by patient not breathing in deeply and exhaling as instructed. absent: Decreased Breath Sounds, Rhonchi, Wheezes - Cardiovascular Exam Cardiovascular Exam: CURRENTLY IRREGULARLY IRREGULAR RHYTHM, +S1, +S2 - GI/Abdominal Exam GI & Abdominal Exam: Distended, Bowel Sounds are normal in all 4 quadrants, Tenderness diffusely as per patient (who moans whenever he is palpated in any of the quadrants), NO guarding/NO rebound tenderness. absent: Rigid - Extremities Exam Extremities exam: Positive for: normal inspection, Pulses are strong and equal , Capillary Refill is 2 seconds, NO edema - Back Exam Back exam: This was not done this morning - Neurological Exam Neurological exam: He is still in and out of consciousness but does participate in exam and answer "yes" and "no" questions in korean - Psychiatric Exam Psychiatric exam: NOT performed this morning - Skin Skin Exam: Left Lower Buttock 0.2 cm area of former I&D site that has dry eschar. NON tender to palpation. Some hardness around this site but NO erythema , NO edema, and NO warmth. NO other ulcers noted Assessment and Plan: Assessment & Plan (1) Chest pain Assessment and Plan: Patient with atypical chest pain history Cardio Dr. Chau does not feel that this is cardiac related TSH, Free T4 are normal ECHO 07/13/17: LV EF is WNL, moderate concentric LVH, Grade I abnormal relaxation pattern Status: Acute (2) ERCP Guidewire Perforation of Liver Capsule vs Peripheral Bile Duct Assessment and Plan: s/p ERCP with removal of stent and sphincterotomy with Dr. Damian 07/13/17 CXR 07/13/17 does not show air under diaphragm. Chest CT 07/13/17 shows pneumobilia as well as possible free air beneath Right Hemidiaphragm within Paraesophagel soft tissues. CT Abdomen/Pelvis 07/13/17 shows gas fluid and stranding in the subcapsular and extracapsular area around Left Lobe Liver. CT Abdomen/Pelvis on 07/14/17 showed gas and fluid around left lobe liver and along inferior vena cava that is unchanged, no evidence of extravasation of oral contrast from stomach or duodenem. Abdomen X Ray 07/16/17 showed NO obstruction. F/U repeat CT Abdomen/Pelvis 07/19/[address] Damian spoke with IR 07/15/17 and area is NOT amenable to percutaneous drainage. Surgery Dr. Crawford consulted: no surgical intervention at this time and keep NPO with NGT for now NGT was discontinued 07/16/17 and patient is now on clear liquid diet and is currently tolerating this without vomiting Status: Acute (3) Enterococcus faecium Bacteremia As per Blood Culture 07/14/17 Started on Tigecycline 50 mg IV Q12H after 100 mg initial infusion (07/17/17) Discontinued Meropenem, Ciprofloxicin, and Vancomycin (07/17/17) Repeat Blood Culture 07/17/17 shows preliminary of Gram Positive Cocci F/U repeat Blood Culture 07/20/[address] Langford is following Status: Acute (4). Atrial Fibrillation/Elevated Troponin During the evening of 07/16/17 patient went into Atrial Fibrillation and was started on Cardizem Drip at 5 mg/hr. He is currently in Sinus Rhythm. Cardizem Drip was decreased to 2.5 mg/hr as his blood pressure was running low but patient went back into AF and therefore on evening 07/17/17 he was started on Amiodarone Drip 0.5 mg/min. He is currently in Atrial Fibrillation. The Atrial Fibrillation is likely secondary to the increased sympathetic tone from the Sepsis and the elevated Troponin likely secondary to the Atril Fibrillation Cardiology Dr. Chau's Group is following Status: Acute (5) Bilateral Pneumonia CT Abdomen/Pelvis 07/13/17 showed bibasilar lingular and right middle lobe mild nonspecific infiltrates consistent with atelectasis/pneumonia As patient was admitted to hospital within the last month (for Left Buttock Abscess) and has been on antibiotics, this is likely Health Care Associated Pneumonia with increased risk for Multidrug Resistence therefore he was treated with the following: Meropenem 500 mg IV Q6H (07/14/17 through 07/17/17), Ciprofloxacin 400 mg IV Q12H (07/14/17 through 07/16/17),Vancomycin 1 gm IV Q24H (07/14/17 through ) and then patient started on Tigecycline as mentioned above F/U report for CT Chest 07/19/17 Urine Legionella Ag is negative F/U Urine Strep pneumoniae Ag Mycoplasma IgM is 81 Influenza A/B is negative Urine Culture is negative ID Dr. Langford is following Status: Acute (6). Anion Gap Metabolic Acidosis Sepsis: CODE SEPSIS was called 07/14/17 See Assessment and Plans #2, #3, #5 Due to the severe acidosis he was also started on D5W with 3 amps of NaHCO3 running at 100 ml/hour and this had resolved therefore the D5W NaHCO3 was discontinued 07/15/17. However the Acidosis returned and is likely secondary to the worsening Renal Function/Sepsis. Status: Acute (7). Hyperkalemia Likely secondary to the Anion Gap Metabolic Acidosis See Assessment and Plans #2 and #3 This has resolved Status: Acute (8). CKD Stage III/Worsening Renal Failure/Hyponatremia Nephrology Dr. Oconnell The worsening Renal Function likely secondary to the Sepsis Worsening Hyponatremia likely dilutional from the IVF initially used to help with the Renal Function. IVF have been discontinued. Lasix 60 mg IV 2x/day started 07/18/17 to help with the Hyponatremia however there was no significant improvement on 07/19/17 Despite the Lasix, renal function worsening 07/19/17. Sales Donor Recruitment Representative coupon collection clerk Dr. Larsen was notified 07/19/17 and HD orders have been provided by Dr. Larsen to HD Nurse Ramon Garibay to start HD once Dialysis Catheter is placed by the Surgical Team which is planned for morning of 07/20/17. Satus: Acute on Chronic (9). Headache with Hx CVA Assessment and Plan: CT Head 07/13/17 was negative for bleed or acute process If NO surgical/IR intervention will then restart ASA Plavix 75 mg PO 1x/day Status: Acute (10) AD (Alzheimer's disease) Assessment and Plan: Aricept 10 mg PO daily. Status: Chronic (11) Choledocholithiasis Assessment and Plan: s/p ERCP with removal of stent and sphincterotomy with Dr. Damian 07/13/17 Status: Acute (12) Anemia Assessment and Plan: Likely secondary to Chronic Disease: CKD Stage III Resume Ferrous Sulfate 325 mg PO daily. HgB/Hct are stable Status: Chronic (13) Hx Left Gluteal abscess Assessment and Plan: Was I&D by surgery team on 06/26/17 Treated with Bactrim 800/160 PO Q12H for 7 days S/P discharge 06/27/17 Status: Chronic (14) HLD (hyperlipidemia) Assessment and Plan: Lopid 600 mg PO BID Patient takes Lipitor 80 mg PO HS which is not on formulary therefore Crestor 10 mg PO HS (renal dosed). Status: Chronic (15) HTN (hypertension) Assessment and Plan: As the patient's blood pressure is on the low end and he is on Amiodarone Drip, therefore the following medications are on HOLD: Amlodipine 10 mg PO daily, Metoprolol XL 100 mg PO daily, and Losartan 100 mg PO daily are all on HOLD Status: Chronic (16) Hx of stroke without residual deficits Assessment and Plan: CT Head 07/13/17 was negative for bleed or acute process Crestor 10 mg PO HS (renal dosed). Hold ASA as mentioned above Plavix 75 mg PO 1x/day Status: Chronic (17) Diabetes Assessment and Plan: Blood Glucose elevated at times: he is on clear liquids ISS Q6H Accuchecks Q6H Status: Chronic (18) History of hypothyroidism Assessment and Plan: Levothyroxine 50 mcg PO daily TSH, Free T4 are normal Status: Chronic (19) Overactive bladder Assessment and Plan: Festerodine 8 mg PO 1x/day Enlarged Prostate on CT Abdomen/Pelvis PSA ordered 07/14/17 but I do not see results. I believe he can follow this up as an outpatient. Status: Chronic (20) Hx of glaucoma Assessment and Plan: Patient's home med Travatan ggt not on formulary. Started Xalatan ggt in bilateral eyes. Status: Chronic (21) Hx of gastroesophageal reflux (GERD) Assessment and Plan: Protonix 10 mg IV daily Status: Chronic (22) Prophylactic measure Assessment and Plan: Protonix 10 mg daily SCDs Hold chemical anticoagulation for now for reasons mentioned above Ascorbic Acid 250 mg PO daily Florastor 250 mg PO 2x/day Zofran 4 mg IV Q6H PRN N/V Morphine 0.5 mg IV Q6H PRN Severe Pain with Holding Parameters (hesitant to give anything more due to the low end of normal Blood Pressure) Cyproheptadine 4 mg PO 2x/day Benzocaine/Menthol 1 love Q2H PRN sore throat Jonnathan Malin D.O. Objective - Vital Signs/Intake and Output Vital Signs (last 24 hours): Temp Pulse Resp BP Pulse Ox 99 F 99 H 31 H 110/56 L 96 07/19/17 08:00 07/19/17 08:26 07/19/17 08:26 07/19/17 09:17 07/19/17 08:26 Intake and Output: 07/19/17 07/19/17 06:59 18:59 Intake Total 153.2 Output Total 100 Balance 53.2 - Medications Medications: Current Medications Ascorbic Acid (Vitamin C 250 Mg Tab) 250 mg PO DAILY [facility] Last Admin: 07/19/17 09:17 Dose: 250 mg Benzocaine/Menthol (Cepacol Sore Throat) 1 love MT Q2 PRN PRN Reason: Sore Throat Last Admin: 07/17/17 20:25 Dose: 1 love Calcium Acetate (Phoslo) 667 mg PO TID [facility] Last Admin: 07/19/17 09:18 Dose: 667 mg Clopidogrel Bisulfate (Plavix) 75 mg PO DAILY [facility] Cyproheptadine HCl (Periactin) 4 mg PO BID [facility] Last Admin: 07/19/17 09:17 Dose: 4 mg Donepezil HCl (Aricept) 10 mg PO HS [facility] Last Admin: 07/18/17 21:19 Dose: 10 mg Ferrous Sulfate (Feosol) 325 mg PO Q12H [facility] Last Admin: 07/19/17 06:04 Dose: 325 mg Furosemide (Lasix) 60 mg IVP BID [facility] Last Admin: 07/19/17 09:17 Dose: 60 mg Gemfibrozil (Lopid) 600 mg PO BID [facility] Last Admin: 07/19/17 09:17 Dose: 600 mg Home Med (Fesoterodine Fumarate [Toviaz]) 8 mg PO DAILY [facility] Tigecycline 50 mg/ Dextrose 100 mls @ 100 mls/hr IVPB Q12H [facility] Last Admin: 07/19/17 01:17 EST Dose: 100 mls/hr Metronidazole 250 mg/ (Miscellaneous) 50 mls @ 100 mls/hr IVPB Q8 [facility] Last Admin: 07/19/17 05:05 Dose: 100 mls/hr Insulin Human Regular (Novolin R) 0 unit SC ACHS [facility] PRN Reason: Protocol Last Admin: 07/19/17 08:24 Dose: 2 unit Iohexol (Omnipaque 240 (50 Ml)) 50 ml PO ONCE PRN PRN Reason: FOR SCAN Latanoprost (Xalatan Opht) 0 ml OU HS [facility] Last Admin: 07/18/17 21:19 Dose: 2.5 ml Levothyroxine Sodium (Synthroid) 50 mcg PO DAILY@0630 [facility] Last Admin: 07/19/17 06:04 Dose: 50 mcg Meclizine HCl (Antivert) 12.5 mg PO TID [facility] Last Admin: 07/19/17 09:21 Dose: 12.5 mg Metoprolol Succinate (Toprol Xl) 100 mg PO DAILY [facility] Last Admin: 07/14/17 13:41 Dose: 100 mg Ondansetron HCl (Zofran Inj) 4 mg IVP Q6 PRN PRN Reason: Nausea/Vomiting Pantoprazole Sodium (Protonix Inj) 40 mg IVP DAILY [facility] Last Admin: 07/19/17 09:16 Dose: 40 mg Rosuvastatin Calcium (Crestor) 10 mg PO HS [facility] Last Admin: 07/18/17 21:19 Dose: 10 mg Saccharomyces Boulardii (Florastor) 250 mg PO BID [facility] Last Admin: 07/19/17 09:18 Dose: 250 mg - Labs Labs: 07/19/17 06:45 07/19/17 06:45 PT 14.3 SECONDS (9.7-12.2) H 07/16/17 04:00 INR 1.3 07/16/17 04:00 APTT 29 SECONDS (21-34) 07/13/17 20:04
[2017-07-19] MEDS ORDERED: Iohexol 240 (50 ml) PO ONE (12:45)
--- NOTE | 2017-07-19 13:45 | CT ---
CT chest, abdomen, and pelvis without IV contrast Indication: Comparison Technique: Contiguous axial images of the chest, abdomen, and pelvis without oral or IV contrast. Coronal and Sagittal reformats generated and reviewed. This CT exam was performed using 1 or more of the falling dose reduction techniques: Automated exposure control, adjustment of the MAA and/or kV according to patient size, and/or use of iterative reconstruction technique. Radiation dose: Total exam DLP = 876.04 MGy-cm. Comparison: CT chest, abdomen, and pelvis without contrast performed 07/14/17 ; CT abdomen pelvis without IV contrast performed 07/14/17 Findings: Visualized portions of the inferior thyroid gland appear unremarkable. Nate The mediastinal and hilar vascular structures appear within normal limits. The heart appears within normal limits of size. Small pericardial effusion. Dense coronary artery calcifications. Moderate bilateral pleural effusions and associated compressive consolidations. Cholecystectomy. Small pneumobilia. Fluid collection is noted along the superior border of the left lobe, possibly subcapsular. The noncontrast spleen, kidneys, pancreas, and adrenal glands appear grossly unremarkable. The stomach is nondistended. Lack of oral contrast limits evaluation for bowel pathology. The bowel loops appear within normal limits of caliber without evidence of intestinal obstruction. There is no definite free air. Pacheco catheter within a decompressed urinary bladder which contains air, possibly due to recent instrumentation. Urinary bladder wall appears thick walled, likely exaggerated by under distension. Recommend correlation with urinalysis. Small abdominal ascites. Small pelvic free fluid. Fat containing inguinal hernias. No acute osseous abnormality is detected. Impression: Fluid collection re-identified, which appears similar in size and likely subcapsular in location. No gas currently evident with in the collection. Small pneumobilia. Moderate bilateral pleural effusions and associated consolidations. Small abdominal ascites. Small pelvic free fluid. Thick-walled under distended urinary bladder which contains air, possibly due to recent instrumentation. A Pacheco catheter is present. Additional incidental findings as above.
[2017-07-19] MEDS: Latanoprost 2.5 ml Opht Soln OU SCH (21:19)
[2017-07-20] MEDS: Tigecycline 50 MG in Dextrose 5% In Water 100 ML IVPB SCH ×2 (00:09→13:00)
[2017-07-20] MEDS: metroNIDAZOLE IV 500 mg/100 ml 250 MG in Premixed IV 1 EA IVPB SCH ×3 (05:20→21:22)
[2017-07-20] MEDS: Levothyroxine 50 MCG TAB PO SCH (05:49)
[2017-07-20 06:53] LABS: HEMATOCRIT 28.6 % (35.0-51.0); MEAN CELL VOLUME 82.9 fL (80.0-94.0); MEAN CORPUSCULAR HEMOGLOBIN 27.4 pg (27.0-31.0); MEAN PLATELET VOLUME 8.1 fL (7.2-11.7); RED CELL DISTRIBUTION WIDTH 15.3 % (11.5-14.5); WHITE BLOOD COUNT 11.3 K/uL (4.8-10.8)
[2017-07-20 07:05] LABS: POTASSIUM 3.8 mmol/L (3.6-5.2)
[2017-07-20 07:07] LABS: ALB/GLOB RATIO 0.9 (1.0-2.1); BILIRUBIN,TOTAL 0.5 mg/dL (0.2-1.3)
[2017-07-20 07:08] LABS: CALCIUM 7.6 mg/dl (8.6-10.4)
[2017-07-20] MEDS: (Novolin R) Insulin Human Regular 100 units/ml vial SC SCH ×3 (08:35→17:55)
[2017-07-20 09:16] LABS: MAGNESIUM 2.3 mg/dL (1.6-2.3); PHOSPHOROUS 9.5 mg/dL (2.5-4.5)
[2017-07-20] MEDS: Saccharomyces Boulardi 250 mg Cap PO SCH ×2 (09:29→18:00)
--- NOTE | 2017-07-20 10:03 | CP.PCM.PN ---
Subjective - Date & Time of Evaluation Date of Evaluation: 07/20/17 Time of Evaluation: 09:40 - Subjective Subjective: Medical Attending Note: Patient seen, and examined this morning. Patient reports pain; around the abdomen. Patient reports chest pain while breathing. EKG was repeated NSR. No family present. Peripheral blood cultures were collected this morning prior to OR. Patient is pending for dialysis placement and first time dialysis. Objective - Vital Signs/Intake and Output Vital Signs (last 24 hours): Temp Pulse Resp BP Pulse Ox 97.4 F L 79 34 H 109/54 L 100 07/20/17 08:00 07/20/17 09:00 07/20/17 09:00 07/20/17 08:26 07/20/17 09:00 Intake and Output: 07/20/17 07/20/17 06:59 18:59 Intake Total 333.7 50.1 Output Total 950 280 Balance -616.3 -229.9 - Medications Medications: Current Medications Ascorbic Acid (Vitamin C 250 Mg Tab) 250 mg PO DAILY [facility] Last Admin: 07/19/17 09:17 Dose: 250 mg Benzocaine/Menthol (Cepacol Sore Throat) 1 love MT Q2 PRN PRN Reason: Sore Throat Last Admin: 07/17/17 20:25 Dose: 1 love Calcium Acetate (Phoslo) 667 mg PO TID [facility] Last Admin: 07/19/17 17:51 Dose: 667 mg Clopidogrel Bisulfate (Plavix) 75 mg PO DAILY [facility] Cyproheptadine HCl (Periactin) 4 mg PO BID [facility] Last Admin: 07/20/17 09:30 Dose: Not Given Donepezil HCl (Aricept) 10 mg PO HS [facility] Last Admin: 07/19/17 21:19 Dose: 10 mg Ferrous Sulfate (Feosol) 325 mg PO Q12H [facility] Last Admin: 07/20/17 05:49 Dose: Not Given Gemfibrozil (Lopid) 600 mg PO BID [facility] Last Admin: 07/20/17 09:30 Dose: Not Given Home Med (Fesoterodine Fumarate [Toviaz]) 8 mg PO DAILY [facility] Tigecycline 50 mg/ Dextrose 100 mls @ 100 mls/hr IVPB Q12H [facility] Last Admin: 07/20/17 00:09 Dose: 100 mls/hr Metronidazole 250 mg/ (Miscellaneous) 50 mls @ 100 mls/hr IVPB Q8 [facility] Last Admin: 07/20/17 05:20 Dose: 100 mls/hr Amiodarone HCl 900 mg/ (Dextrose) 500 mls @ 16.66 mls/hr IV .Q24H ONE; 0.5 MG/ MIN PRN Reason: Protocol Stop: 07/20/17 20:32 Last Admin: 07/20/17 05:19 Dose: 16.66 mls/hr Insulin Human Regular (Novolin R) 0 unit SC ACHS [facility] PRN Reason: Protocol Last Admin: 07/20/17 08:35 Dose: 2 unit Latanoprost (Xalatan Opht) 0 ml OU HS [facility] Last Admin: 07/19/17 21:19 Dose: 2.5 ml Levothyroxine Sodium (Synthroid) 50 mcg PO DAILY@0630 [facility] Last Admin: 07/20/17 05:49 Dose: Not Given Meclizine HCl (Antivert) 12.5 mg PO TID [facility] Last Admin: 07/19/17 17:50 Dose: 12.5 mg Metoprolol Succinate (Toprol Xl) 100 mg PO DAILY [facility] Last Admin: 07/14/17 13:41 Dose: 100 mg Morphine Sulfate (Morphine) 0.5 mg IVP Q6H PRN PRN Reason: Pain, severe (8-10) Last Admin: 07/20/17 01:18 Dose: 0.5 mg Ondansetron HCl (Zofran Inj) 4 mg IVP Q6 PRN PRN Reason: Nausea/Vomiting Pantoprazole Sodium (Protonix Inj) 40 mg IVP DAILY [facility] Last Admin: 07/19/17 09:16 Dose: 40 mg Rosuvastatin Calcium (Crestor) 10 mg PO HS [facility] Last Admin: 07/19/17 21:19 Dose: 10 mg Saccharomyces Boulardii (Florastor) 250 mg PO BID [facility] Last Admin: 07/20/17 09:29 Dose: Not Given - Labs Labs: 07/20/17 06:50 07/20/17 06:50 PT 14.3 SECONDS (9.7-12.2) H 07/16/17 04:00 INR 1.3 07/16/17 04:00 APTT 29 SECONDS (21-34) 07/13/17 20:04 - Constitutional Appears: Non-toxic, No Acute Distress - Head Exam Head Exam: NORMAL INSPECTION - Eye Exam Eye Exam: EOMI - ENT Exam ENT Exam: Mucous Membranes Moist Additional comments: triple lumen (right side of neck): clean/dry/intact - Respiratory Exam Respiratory Exam: Rales, NORMAL BREATHING PATTERN. absent: Wheezes, Stridor - Cardiovascular Exam Cardiovascular Exam: REGULAR RHYTHM, +S1, +S2 - GI/Abdominal Exam GI & Abdominal Exam: Distended, Soft, Tenderness (tender to palpation; patient is moan on exam; difficult to assess), Normal Bowel Sounds. absent: Firm, Guarding, Rebound - Extremities Exam Extremities Exam: absent: Pedal Edema, Tenderness Additional comments: prevalon boots b/l - Neurological Exam Neurological Exam: Alert, Awake - Skin Skin Exam: Dry, Normal Color, Warm Assessment and Plan - Assessment and Plan (Free Text) Assessment: Assessment & Plan (1) Chest pain Assessment and Plan: * Patient with atypical chest pain history * Cardio Dr. Chau does not feel that this is cardiac related * TSH, Free T4 are normal * ECHO 07/13/17: LV EF is WNL, moderate concentric LVH, Grade I abnormal relaxation pattern Status: Acute (2) ERCP Guidewire Perforation of Liver Capsule vs Peripheral Bile Duct Assessment and Plan: * s/p ERCP with removal of stent and sphincterotomy with Dr. Damian 07/13/17 * CXR 07/13/17 does not show air under diaphragm. * Chest CT 07/13/17 shows pneumobilia as well as possible free air beneath Right Hemidiaphragm within Paraesophagel soft tissues. * CT Abdomen/Pelvis 07/13/17 shows gas fluid and stranding in the subcapsular and extracapsular area around Left Lobe Liver. * CT Abdomen/Pelvis on 07/14/17 showed gas and fluid around left lobe liver and along inferior vena cava that is unchanged, no evidence of extravasation of oral contrast from stomach or duodenem. * Abdomen X Ray 07/16/17 showed NO obstruction. * CT Abdomen/Pelvis w/o contrast 07/19/17: Fluid re-identified, which appears similar in size and likely subcapsular in location. No nathan currently evident with in the collection, Small pneumobila. Moderate bilateral pleural effusions and associated consolidations. Small abomdinla ascites. Small pelvic free fluid. Thicken walled under distended urinary bladder which contains air, Pacheco catheter is present * GI Dr. Damian spoke with IR 07/15/17 and area is NOT amenable to percutaneous drainage. * Surgery Dr. Crawford consulted: no surgical intervention at this time and keep NPO with NGT for now * NGT was discontinued 07/16/17 and patient is now on clear liquid diet and is currently tolerating this without vomiting Status: Acute (3) Enterococcus faecium Bacteremia * Infectious Disease (Dr. Langford) on the board * Started on Tigecycline 50 mg IV Q12H after 100 mg initial infusion (07/17/17) * Discontinued Meropenem, Ciprofloxicin, and Vancomycin (07/17/17) * 07/14/17: Enterococcus Faecium X2 * 07/17/17: No growth after 48 hours (1 bottle/the 2nd one supports Enterococcus Faecium) * Pending repeat Blood Culture 07/20/17 Status: Acute (4). Atrial Fibrillation/Elevated Troponin * Cardiology (Dr. Chau) on board-->help appreciated * Amiodarone 900mg IV Q 24H * Toprol XL 100mg PO daily (held) * The Atrial Fibrillation is likely secondary to the increased sympathetic tone from the Sepsis and the elevated Troponin likely secondary to the Atril Fibrillation * Repeat EKG (NSR) today-->in front of the chart Status: Acute (5) Bilateral Pneumonia * CT Abdomen/Pelvis 07/13/17 showed bibasilar lingular and right middle lobe mild nonspecific infiltrates consistent with atelectasis/pneumonia * As patient was admitted to hospital within the last month (for Left Buttock Abscess) and has been on antibiotics, this is likely Health Care Associated Pneumonia with increased risk for Multidrug Resistence therefore he was treated with the following: * Meropenem 500 mg IV Q6H (07/14/17 through 07/17/17), Ciprofloxacin 400 mg IV Q12H (07/14/17 through 07/16/17),Vancomycin 1 gm IV Q24H (07/14/17 through ) and then patient started on Tigecycline as mentioned above * CT Abdomen/Pelvis w/o contrast 07/19/17: Fluid re-identified, which appears similar in size and likely subcapsular in location. No nathan currently evident with in the collection, Small pneumobila. Moderate bilateral pleural effusions and associated consolidations. Small abomdinla ascites. Small pelvic free fluid. Thicken walled under distended urinary bladder which contains air, Pacheco catheter is present * Urine Legionella Ag is negative * Urine Strep pneumoniae Ag: non detected * Mycoplasma IgM is 81 (negative) Ig.07 * Influenza A/B is negative * Urine Culture is negative Status: Acute (6). Anion Gap Metabolic Acidosis * Sepsis: CODE SEPSIS was called 07/14/17 * See Assessment and Plans #2, #3, #5 * Due to the severe acidosis he was also started on D5W with 3 amps of NaHCO3 running at 100 ml/hour and this had resolved therefore the D5W NaHCO3 was discontinued 07/15/17. However the Acidosis returned and is likely secondary to the worsening Renal Function/Sepsis. Status: Acute (7). Hyperkalemia * Likely secondary to the Anion Gap Metabolic Acidosis * See Assessment and Plans #2 and #3 * This has resolved Status: Acute (8). CKD Stage III/Worsening Renal Failure/Hyponatremia * Nephrology Dr. Oconnell * The worsening Renal Function likely secondary to the Sepsis * Worsening Hyponatremia likely dilutional from the IVF initially used to help with the Renal Function. IVF have been discontinued. * Lasix 60 mg IV 2x/day started 07/18/17 to help with the Hyponatremia however there was no significant improvement on 07/19/17 * Despite the Lasix, renal function worsening 07/19/17. 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 Larsen was notified 07/19/17 and HD orders have been provided by Dr. Larsen to HD Nurse Ramon Garibay to start HD once Dialysis Catheter is placed by the Surgical Team which is planned for morning of 07/20/17. * Pending dialysis placement today (07/20/17) and first time dialysis following Status: Acute on Chronic (9). Headache with Hx CVA Assessment and Plan: * CT Head 07/13/17 was negative for bleed or acute process * If NO surgical/IR intervention will then restart ASA * held Plavix 75 mg PO 1x/day since 07/14/17 Status: Acute (10) AD (Alzheimer's disease) Assessment and Plan: * Aricept 10 mg PO daily. Status: Chronic (11) Choledocholithiasis Assessment and Plan: * s/p ERCP with removal of stent and sphincterotomy with Dr. Damian 07/13/17 Status: Acute (12) Anemia Assessment and Plan: * Likely secondary to Chronic Disease: CKD Stage III * Resume Ferrous Sulfate 325 mg PO daily. HgB/Hct are stable Status: Chronic (13) Hx Left Gluteal abscess Assessment and Plan: * Was I&D by surgery team on 06/26/17 * Treated with Bactrim 800/160 PO Q12H for 7 days S/P discharge 06/27/17 Status: Chronic (14) HLD (hyperlipidemia) Assessment and Plan: * Lopid 600 mg PO BID * Patient takes Lipitor 80 mg PO HS which is not on formulary therefore Crestor 10 mg PO HS (renal dosed). Status: Chronic (15) HTN (hypertension) Assessment and Plan: * As the patient's blood pressure is on the low end and he is on Amiodarone Drip , therefore the following medications are on HOLD: Amlodipine 10 mg PO daily, Metoprolol XL 100 mg PO daily, and Losartan 100 mg PO daily are all on HOLD Status: Chronic (16) Hx of stroke without residual deficits Assessment and Plan: * CT Head 07/13/17 was negative for bleed or acute process * Crestor 10 mg PO HS (renal dosed). * Hold ASA as mentioned above * Hold Plavix 75 mg PO 1x/day since 07/14/17 Status: Chronic (17) Diabetes Assessment and Plan: * Blood Glucose elevated at times: he is on clear liquids * ISS Q6H * Accuchecks Q6H Status: Chronic (18) History of hypothyroidism Assessment and Plan: * Levothyroxine 50 mcg PO daily * TSH, Free T4 are normal Status: Chronic (19) Overactive bladder Assessment and Plan: * Festerodine 8 mg PO 1x/day * Enlarged Prostate on CT Abdomen/Pelvis * PSA ordered 07/14/17 but I do not see results. I believe he can follow this up as an outpatient. Status: Chronic (20) Hx of glaucoma Assessment and Plan: Patient's home med Travatan ggt not on formulary. Started Xalatan ggt in bilateral eyes. Status: Chronic (21) Hx of gastroesophageal reflux (GERD) Assessment and Plan: Protonix 10 mg IV daily Status: Chronic (22) Prophylactic measure Assessment and Plan: * Protonix 10 mg daily * SCDs * Hold chemical anticoagulation for now for reasons mentioned above * Ascorbic Acid 250 mg PO daily * Florastor 250 mg PO 2x/day * Zofran 4 mg IV Q6H PRN N/V * Morphine 0.5 mg IV Q6H PRN Severe Pain with Holding Parameters (hesitant to give anything more due to the low end of normal Blood Pressure) * Cyproheptadine 4 mg PO 2x/day * Benzocaine/Menthol 1 love Q2H PRN sore throat
--- NOTE | 2017-07-20 10:17 | CP.PCM.PN ---
Subjective - Date & Time of Evaluation Date of Evaluation: 07/20/17 Time of Evaluation: 07:00 - Subjective Subjective: still growing VRE in blood repeat cultures sent today would defer any permanent access devices till blood sterile consoder echo i f not done yet prognosis remains guarded Objective - Vital Signs/Intake and Output Vital Signs (last 24 hours): Temp Pulse Resp BP Pulse Ox 97.4 F L 79 34 H 109/54 L 100 07/20/17 08:00 07/20/17 09:00 07/20/17 09:00 07/20/17 08:26 07/20/17 09:00 Intake and Output: 07/20/17 07/20/17 06:59 18:59 Intake Total 333.7 50.1 Output Total 950 280 Balance -616.3 -229.9 - Medications Medications: Current Medications Ascorbic Acid (Vitamin C 250 Mg Tab) 250 mg PO DAILY [facility] Last Admin: 07/20/17 10:12 Dose: Not Given Benzocaine/Menthol (Cepacol Sore Throat) 1 love MT Q2 PRN PRN Reason: Sore Throat Last Admin: 07/17/17 20:25 Dose: 1 love Calcium Acetate (Phoslo) 667 mg PO TID [facility] Last Admin: 07/20/17 10:12 Dose: Not Given Clopidogrel Bisulfate (Plavix) 75 mg PO DAILY [facility] Cyproheptadine HCl (Periactin) 4 mg PO BID [facility] Last Admin: 07/20/17 09:30 Dose: Not Given Donepezil HCl (Aricept) 10 mg PO HS [facility] Last Admin: 07/19/17 21:19 Dose: 10 mg Ferrous Sulfate (Feosol) 325 mg PO Q12H [facility] Last Admin: 07/20/17 05:49 Dose: Not Given Gemfibrozil (Lopid) 600 mg PO BID [facility] Last Admin: 07/20/17 09:30 Dose: Not Given Home Med (Fesoterodine Fumarate [Toviaz]) 8 mg PO DAILY [facility] Tigecycline 50 mg/ Dextrose 100 mls @ 100 mls/hr IVPB Q12H [facility] Last Admin: 07/20/17 00:09 Dose: 100 mls/hr Metronidazole 250 mg/ (Miscellaneous) 50 mls @ 100 mls/hr IVPB Q8 [facility] Last Admin: 07/20/17 05:20 Dose: 100 mls/hr Amiodarone HCl 900 mg/ (Dextrose) 500 mls @ 16.66 mls/hr IV .Q24H ONE; 0.5 MG/ MIN PRN Reason: Protocol Stop: 07/20/17 20:32 Last Admin: 07/20/17 05:19 Dose: 16.66 mls/hr Magnesium Sulfate/Dextrose (Magnesium Sulfate 1 Gm/100 Ml D5w) 1 gm in 100 mls @ 200 mls/hr IVPB ONCE ONE Stop: 07/20/17 11:29 Insulin Human Regular (Novolin R) [address] [facility] PRN Reason: Protocol Last Admin: 07/20/17 08:35 Dose: 2 unit Latanoprost (Xalatan Opht) 0 ml OU HS [facility] Last Admin: 07/19/17 21:19 Dose: 2.5 ml Levothyroxine Sodium (Synthroid) 50 mcg PO DAILY@0630 [facility] Last Admin: 07/20/17 05:49 Dose: Not Given Meclizine HCl (Antivert) 12.5 mg PO TID [facility] Last Admin: 07/19/17 17:50 Dose: 12.5 mg Metoprolol Succinate (Toprol Xl) 100 mg PO DAILY [facility] Last Admin: 07/14/17 13:41 Dose: 100 mg Morphine Sulfate (Morphine) 0.5 mg IVP Q6H PRN PRN Reason: Pain, severe (8-10) Last Admin: 07/20/17 01:18 Dose: 0.5 mg Ondansetron HCl (Zofran Inj) 4 mg IVP Q6 PRN PRN Reason: Nausea/Vomiting Pantoprazole Sodium (Protonix Inj) 40 mg IVP DAILY [facility] Last Admin: 07/19/17 09:16 Dose: 40 mg Rosuvastatin Calcium (Crestor) 10 mg PO HS [facility] Last Admin: 07/19/17 21:19 Dose: 10 mg Saccharomyces Boulardii (Florastor) 250 mg PO BID [facility] Last Admin: 07/20/17 09:29 Dose: Not Given - Labs Labs: 07/20/17 06:50 07/20/17 06:50 PT 14.3 SECONDS (9.7-12.2) H 07/16/17 04:00 INR 1.3 07/16/17 04:00 APTT 29 SECONDS (21-34) 07/13/17 20:04 - Constitutional Appears: Confused, Cachectic, Chronically Ill - Head Exam Head Exam: NORMOCEPHALIC - Eye Exam Eye Exam: PERRL - ENT Exam ENT Exam: Mucous Membranes Dry - Neck Exam Neck Exam: absent: Lymphadenopathy - Respiratory Exam Respiratory Exam: Decreased Breath Sounds, Rhonchi - Cardiovascular Exam Cardiovascular Exam: REGULAR RHYTHM - GI/Abdominal Exam GI & Abdominal Exam: Distended, Soft, Tenderness - Rectal Exam Rectal Exam: Deferred - Exam Exam: NORMAL INSPECTION - Extremities Exam Extremities Exam: absent: Pedal Edema - Back Exam Back Exam: absent: CVA tenderness (L), CVA tenderness (R) - Neurological Exam Neurological Exam: Altered Assessment and Plan (1) JAY JAY (acute kidney injury) Status: Acute (2) CVA, old, cognitive deficits Status: Acute (3) Chronic kidney disease, stage III (moderate) Status: Acute (4) Headache Status: Acute (5) Hx of gastroesophageal reflux (GERD) Status: Acute - Assessment and Plan (Free Text) Assessment: 82 year old male with extensive medical history (please see Assessment and Plans below) who underwent ERCP for removal of CBD Stent on 07/13/17 after which he complained of abdominal and chest pain. A rapid response was called. CT Chest revealed pneumobilia as well as possible free air beneath Right Hemidiaphragm within Paraesophageal Soft Tissues. CT Abdomen/Pelvis revealed gas fluid and stranding in the subcapsular and extracapsular area around Left Lobe Liver. NGT was placed, patient made NPO, and was then transferred to ICU for further treatment and [id number]/17. Repeat CT Abdomen/Pelvis on 07/14/17 showed gas and fluid around left lobe liver and along inferior vena cava that is unchanged, no evidence of extravasation of oral contrast from stomach or duodenem. area is NOT amenable to percutaneous drainage. Surgery Team evaluated patient 07/14/17 an conservative management for now. 07/16/17 patient developed Atrial Fibrillation and was started on Cardizem Drip. Troponin is elevated at 0.314 and this may be secondary to the Atrial Fibrillation. Blood Culture 07/14/17 showed Enterococcus faecium and therefore he was started on Tigecycline 07/17/17. As of 07/18/17 his Renal Function is continuing to decline despite IV Fluid administration and this may be secondary to ATN secondary to Sepsis. He is for for Dialysis Catheter placement on 07/19/17.
[2017-07-20] MEDS ORDERED: Magnesium Sulfate 1 gm in D5W 1 GM/100 ML BAG IVPB ONE (11:00)
--- NOTE | 2017-07-20 11:21 | CP.PCM.PN ---
Subjective - Date & Time of Evaluation Date of Evaluation: 07/20/17 Time of Evaluation: 11:19 - Subjective Subjective: Alert; still with some abdominal pains; in moderate distress Creat increasing- 5.3 despite good UO Off diuretics Phos increased - needs higher dose binders For permcath soon- will schedule dialysis today Objective - Vital Signs/Intake and Output Vital Signs (last 24 hours): Temp Pulse Resp BP Pulse Ox 97.4 F L 79 34 H 109/54 L 100 07/20/17 08:00 07/20/17 09:00 07/20/17 09:00 07/20/17 08:26 07/20/17 09:00 Intake and Output: 07/20/17 07/20/17 06:59 18:59 Intake Total 333.7 50.1 Output Total 950 280 Balance -616.3 -229.9 - Medications Medications: Current Medications Ascorbic Acid (Vitamin C 250 Mg Tab) 250 mg PO DAILY [facility] Last Admin: 07/20/17 10:12 Dose: Not Given Benzocaine/Menthol (Cepacol Sore Throat) 1 love MT Q2 PRN PRN Reason: Sore Throat Last Admin: 07/17/17 20:25 Dose: 1 love Calcium Acetate (Phoslo) 1,334 mg PO TID [facility] Clopidogrel Bisulfate (Plavix) 75 mg PO DAILY [facility] Cyproheptadine HCl (Periactin) 4 mg PO BID [facility] Last Admin: 07/20/17 09:30 Dose: Not Given Donepezil HCl (Aricept) 10 mg PO HS [facility] Last Admin: 07/19/17 21:19 Dose: 10 mg Ferrous Sulfate (Feosol) 325 mg PO Q12H [facility] Last Admin: 07/20/17 05:49 Dose: Not Given Gemfibrozil (Lopid) 600 mg PO BID [facility] Last Admin: 07/20/17 09:30 Dose: Not Given Home Med (Fesoterodine Fumarate [Toviaz]) 8 mg PO DAILY [facility] Tigecycline 50 mg/ Dextrose 100 mls @ 100 mls/hr IVPB Q12H [facility] Last Admin: 07/20/17 00:09 Dose: 100 mls/hr Metronidazole 250 mg/ (Miscellaneous) 50 mls @ 100 mls/hr IVPB Q8 [facility] Last Admin: 07/20/17 05:20 Dose: 100 mls/hr Amiodarone HCl 900 mg/ (Dextrose) 500 mls @ 16.66 mls/hr IV .Q24H ONE; 0.5 MG/ MIN PRN Reason: Protocol Stop: 07/20/17 20:32 Last Admin: 07/20/17 05:19 Dose: 16.66 mls/hr Magnesium Sulfate/Dextrose (Magnesium Sulfate 1 Gm/100 Ml D5w) 1 gm in 100 mls @ 200 mls/hr IVPB ONCE ONE Stop: 07/20/17 11:29 Last Admin: 07/20/17 10:33 Dose: 200 mls/hr Insulin Human Regular (Novolin R) 0 unit SC ACHS [facility] PRN Reason: Protocol Last Admin: 07/20/17 08:35 Dose: 2 unit Latanoprost (Xalatan Opht) 0 ml OU HS [facility] Last Admin: 07/19/17 21:19 Dose: 2.5 ml Levothyroxine Sodium (Synthroid) 50 mcg PO DAILY@0630 [facility] Last Admin: 07/20/17 05:49 Dose: Not Given Meclizine HCl (Antivert) 12.5 mg PO TID [facility] Last Admin: 07/20/17 10:18 Dose: Not Given Metoprolol Succinate (Toprol Xl) 100 mg PO DAILY [facility] Last Admin: 07/14/17 13:41 Dose: 100 mg Morphine Sulfate (Morphine) 0.5 mg IVP Q6H PRN PRN Reason: Pain, severe (8-10) Last Admin: 07/20/17 01:18 Dose: 0.5 mg Ondansetron HCl (Zofran Inj) 4 mg IVP Q6 PRN PRN Reason: Nausea/Vomiting Pantoprazole Sodium (Protonix Inj) 40 mg IVP DAILY [facility] Last Admin: 07/20/17 10:32 Dose: 40 mg Rosuvastatin Calcium (Crestor) 10 mg PO HS [facility] Last Admin: 07/19/17 21:19 Dose: 10 mg Saccharomyces Boulardii (Florastor) 250 mg PO BID [facility] Last Admin: 07/20/17 09:29 Dose: Not Given - Labs Labs: 07/20/17 06:50 07/20/17 06:50 PT 14.3 SECONDS (9.7-12.2) H 07/16/17 04:00 INR 1.3 07/16/17 04:00 APTT 29 SECONDS (21-34) 07/13/17 20:04 - Constitutional Appears: In Acute Distress, Chronically Ill - Head Exam Head Exam: ATRAUMATIC, NORMAL INSPECTION - Eye Exam Eye Exam: EOMI, Normal appearance - Neck Exam Neck Exam: Normal Inspection. absent: Tenderness - Respiratory Exam Respiratory Exam: Clear to Ausculation Bilateral, NORMAL BREATHING PATTERN - Cardiovascular Exam Cardiovascular Exam: REGULAR RHYTHM, +S1 - GI/Abdominal Exam GI & Abdominal Exam: Soft. absent: Tenderness - Extremities Exam Extremities Exam: Normal Inspection. absent: Tenderness - Neurological Exam Neurological Exam: Awake, CN II-XII Intact - Skin Skin Exam: Dry, Warm Assessment and Plan (1) Hx of stroke without residual deficits Status: Acute (2) History of hypertension Status: Chronic (3) JAY JAY (acute kidney injury) Status: Acute (4) Type 2 diabetes mellitus with diabetic nephropathy Status: Acute (5) Chronic kidney disease, stage III (moderate) Status: Acute (6) Proteinuria Status: Acute (7) Hyponatremia with excess extracellular fluid volume Status: Acute - Assessment and Plan (Free Text) Plan: Increase binder dose Permcath then dialysiis today
--- NOTE | 2017-07-20 11:22 | CP.PCM.PN ---
<Dianne Salinas - Last Filed: 07/20/17 11:25> Subjective - Date & Time of Evaluation Date of Evaluation: 07/20/17 Time of Evaluation: 11:21 - Subjective Subjective: Gastroenterology Fellow/PGY5 Progress Note Patient with unchanged abdominal discomfort. Resting comfortably. No bowel movement overnight. A 12-point review of systems limited in setting of Alzheimer 's Dementia. Objective - Vital Signs/Intake and Output Vital Signs (last 24 hours): Temp Pulse Resp BP Pulse Ox 97.4 F L 79 34 H 109/54 L 100 07/20/17 08:00 07/20/17 09:00 07/20/17 09:00 07/20/17 08:26 07/20/17 09:00 Intake and Output: 07/20/17 07/20/17 06:59 18:59 Intake Total 333.7 50.1 Output Total 950 280 Balance -616.3 -229.9 - Medications Medications: Current Medications Ascorbic Acid (Vitamin C 250 Mg Tab) 250 mg PO DAILY [facility] Last Admin: 07/20/17 10:12 Dose: Not Given Benzocaine/Menthol (Cepacol Sore Throat) 1 love MT Q2 PRN PRN Reason: Sore Throat Last Admin: 07/17/17 20:25 Dose: 1 love Calcium Acetate (Phoslo) 1,334 mg PO TID [facility] Clopidogrel Bisulfate (Plavix) 75 mg PO DAILY [facility] Cyproheptadine HCl (Periactin) 4 mg PO BID [facility] Last Admin: 07/20/17 09:30 Dose: Not Given Donepezil HCl (Aricept) 10 mg PO HS [facility] Last Admin: 07/19/17 21:19 Dose: 10 mg Ferrous Sulfate (Feosol) 325 mg PO Q12H [facility] Last Admin: 07/20/17 05:49 Dose: Not Given Gemfibrozil (Lopid) 600 mg PO BID [facility] Last Admin: 07/20/17 09:30 Dose: Not Given Home Med (Fesoterodine Fumarate [Toviaz]) 8 mg PO DAILY [facility] Tigecycline 50 mg/ Dextrose 100 mls @ 100 mls/hr IVPB Q12H [facility] Last Admin: 07/20/17 00:09 Dose: 100 mls/hr Metronidazole 250 mg/ (Miscellaneous) 50 mls @ 100 mls/hr IVPB Q8 [facility] Last Admin: 07/20/17 05:20 Dose: 100 mls/hr Amiodarone HCl 900 mg/ (Dextrose) 500 mls @ 16.66 mls/hr IV .Q24H ONE; 0.5 MG/ MIN PRN Reason: Protocol Stop: 07/20/17 20:32 Last Admin: 07/20/17 05:19 Dose: 16.66 mls/hr Magnesium Sulfate/Dextrose (Magnesium Sulfate 1 Gm/100 Ml D5w) 1 gm in 100 mls @ 200 mls/hr IVPB ONCE ONE Stop: 07/20/17 11:29 Last Admin: 07/20/17 10:33 Dose: 200 mls/hr Insulin Human Regular (Novolin R) 0 unit SC ACHS [facility] PRN Reason: Protocol Last Admin: 07/20/17 08:35 Dose: 2 unit Latanoprost (Xalatan Opht) 0 ml OU HS [facility] Last Admin: 07/19/17 21:19 Dose: 2.5 ml Levothyroxine Sodium (Synthroid) 50 mcg PO DAILY@0630 [facility] Last Admin: 07/20/17 05:49 Dose: Not Given Meclizine HCl (Antivert) 12.5 mg PO TID [facility] Last Admin: 07/20/17 10:18 Dose: Not Given Metoprolol Succinate (Toprol Xl) 100 mg PO DAILY [facility] Last Admin: 07/14/17 13:41 Dose: 100 mg Morphine Sulfate (Morphine) 0.5 mg IVP Q6H PRN PRN Reason: Pain, severe (8-10) Last Admin: 07/20/17 01:18 Dose: 0.5 mg Ondansetron HCl (Zofran Inj) 4 mg IVP Q6 PRN PRN Reason: Nausea/Vomiting Pantoprazole Sodium (Protonix Inj) 40 mg IVP DAILY [facility] Last Admin: 07/20/17 10:32 Dose: 40 mg Rosuvastatin Calcium (Crestor) 10 mg PO HS [facility] Last Admin: 07/19/17 21:19 Dose: 10 mg Saccharomyces Boulardii (Florastor) 250 mg PO BID [facility] Last Admin: 07/20/17 09:29 Dose: Not Given - Labs Labs: 07/20/17 06:50 07/20/17 06:50 PT 14.3 SECONDS (9.7-12.2) H 07/16/17 04:00 INR 1.3 07/16/17 04:00 APTT 29 SECONDS (21-34) 07/13/17 20:04 - Constitutional Appears: Non-toxic, No Acute Distress - Head Exam Head Exam: ATRAUMATIC, NORMOCEPHALIC - Eye Exam Eye Exam: EOMI, PERRL Pupil Exam: PERRL. absent: Miosis, Mydriatic - ENT Exam ENT Exam: Mucous Membranes Moist, Normal Oropharynx - Neck Exam Neck Exam: Full ROM, Normal Inspection - Respiratory Exam Respiratory Exam: Clear to Ausculation Bilateral. absent: Rales, Rhonchi, Wheezes - Cardiovascular Exam Cardiovascular Exam: RRR, +S1, +S2. absent: Gallop, Rubs - GI/Abdominal Exam GI & Abdominal Exam: Soft, Tenderness, Normal Bowel Sounds. absent: Distended, Firm, Guarding, Rigid, Organomegaly, Rebound Additional comments: epigastric tenderness to palpation - Extremities Exam Extremities Exam: Normal Inspection. absent: Pedal Edema - Neurological Exam Neurological Exam: Alert, Awake - Psychiatric Exam Psychiatric exam: Normal Affect, Normal Mood - Skin Skin Exam: Dry, Intact, Normal Color, Warm Assessment and Plan - Assessment and Plan (Free Text) Assessment: 82 year old male wit history of Diabetes, Hyperlipidemia, Hypertension, Hypothyroidism, CKD, Alzheimer's Dementia, CVA on Plavix, and cholangitis s/p ERCP with CBD stent (04/2017). Active treatment of E. faecium Bacteremia and ERCP guidewire pneumoperitoneum with hepatic subcapsular/extracapsular fluid collection. Plan: >CT C/A/P- - unchanged subcapsular fluid collection >Permcath placement tday >full liquid diet as tolerated >ID managing- broad spectrum antibiotics >supportive care >will follow clinical course <Quincy Livingston MD - Last Filed: 07/20/17 13:23> Objective - Vital Signs/Intake and Output Vital Signs (last 24 hours): Temp Pulse Resp BP Pulse Ox 97.4 F L 77 21 121/54 L 99 07/20/17 08:00 07/20/17 11:26 07/20/17 11:26 07/20/17 11:26 07/20/17 11:26 Intake and Output: 07/20/17 07/20/17 06:59 18:59 Intake Total 333.7 100.2 Output Total 950 600 Balance -616.3 -499.8 - Medications Medications: Current Medications Ascorbic Acid (Vitamin C 250 Mg Tab) 250 mg PO DAILY [facility] Last Admin: 07/20/17 10:12 Dose: Not Given Benzocaine/Menthol (Cepacol Sore Throat) 1 love MT Q2 PRN PRN Reason: Sore Throat Last Admin: 07/17/17 20:25 Dose: 1 love Calcium Acetate (Phoslo) 1,334 mg PO TID [facility] Clopidogrel Bisulfate (Plavix) 75 mg PO DAILY [facility] Cyproheptadine HCl (Periactin) 4 mg PO BID [facility] Last Admin: 07/20/17 09:30 Dose: Not Given Donepezil HCl (Aricept) 10 mg PO HS [facility] Last Admin: 07/19/17 21:19 Dose: 10 mg Ferrous Sulfate (Feosol) 325 mg PO Q12H [facility] Last Admin: 07/20/17 05:49 Dose: Not Given Gemfibrozil (Lopid) 600 mg PO BID [facility] Last Admin: 07/20/17 09:30 Dose: Not Given Home Med (Fesoterodine Fumarate [Toviaz]) 8 mg PO DAILY [facility] Tigecycline 50 mg/ Dextrose 100 mls @ 100 mls/hr IVPB Q12H [facility] Last Admin: 07/20/17 00:09 Dose: 100 mls/hr Metronidazole 250 mg/ (Miscellaneous) 50 mls @ 100 mls/hr IVPB Q8 [facility] Last Admin: 07/20/17 05:20 Dose: 100 mls/hr Amiodarone HCl 900 mg/ (Dextrose) 500 mls @ 16.66 mls/hr IV .Q24H ONE; 0.5 MG/ MIN PRN Reason: Protocol Stop: 07/20/17 20:32 Last Admin: 07/20/17 05:19 Dose: 16.66 mls/hr Insulin Human Regular (Novolin R) 0 unit SC ACHS [facility] PRN Reason: Protocol Last Admin: 07/20/17 08:35 Dose: 2 unit Latanoprost (Xalatan Opht) 0 ml OU HS [facility] Last Admin: 07/19/17 21:19 Dose: 2.5 ml Levothyroxine Sodium (Synthroid) 50 mcg PO DAILY@0630 [facility] Last Admin: 07/20/17 05:49 Dose: Not Given Meclizine HCl (Antivert) 12.5 mg PO TID [facility] Last Admin: 07/20/17 10:18 Dose: Not Given Metoprolol Succinate (Toprol Xl) 100 mg PO DAILY [facility] Last Admin: 07/14/17 13:41 Dose: 100 mg Morphine Sulfate (Morphine) 0.5 mg IVP Q6H PRN PRN Reason: Pain, severe (8-10) Last Admin: 07/20/17 01:18 Dose: 0.5 mg Ondansetron HCl (Zofran Inj) 4 mg IVP Q6 PRN PRN Reason: Nausea/Vomiting Pantoprazole Sodium (Protonix Inj) 40 mg IVP DAILY [facility] Last Admin: 07/20/17 10:32 Dose: 40 mg Rosuvastatin Calcium (Crestor) 10 mg PO HS [facility] Last Admin: 07/19/17 21:19 Dose: 10 mg Saccharomyces Boulardii (Florastor) 250 mg PO BID [facility] Last Admin: 07/20/17 09:29 Dose: Not Given - Labs Labs: 07/20/17 06:50 07/20/17 06:50 PT 14.3 SECONDS (9.7-12.2) H 07/16/17 04:00 INR 1.3 07/16/17 04:00 APTT 29 SECONDS (21-34) 07/13/17 20:04 Attending/Attestation - Attestation I have personally seen and examined this patient.: Yes I have fully participated in the care of the patient.: Yes I have reviewed all pertinent clinical information, including history, physical exam and plan: Yes Notes (Text): 07/20/17 13:14 Patient seen and examined with GI fellow this am in MICU. In a nutshell this is a 82 year old male with history of Diabetes, Hyperlipidemia, Hypertension, Hypothyroidism, CKD, Alzheimer's Dementia, CVA on Plavix, and cholangitis s/p ERCP with CBD stent (04/2017) complicated with bacteremia and pneumoperitoneum. Conservative treatment with anti bacterial on going with hemodynamic stability. Repeat CT shows subcapsular collection as before- too small for IR intervention. Will continue broad spectrum antibiotics. Diet as tolerated. Trend daily labs. Tretament of azotemia as per nephrology. Will follow closely with you Plan:
[2017-07-20] MEDS ORDERED: Lidocaine 1% Inj (20ml) ONE (13:00)
[2017-07-20] MEDS ORDERED: Bupivacaine 0.5% Inj(30mL) ONE (13:00)
[2017-07-20] MEDS ORDERED: HEPARIN-NS 5,000 UNITS/500 ML 5,000 UNIT/500 ML BAG IV ONE (13:00)
[2017-07-20] MEDS ORDERED: Bupivacaine-Epi 0.25%-1:200,000 PF Inj ONE (13:52)
[2017-07-20] MEDS ORDERED: Sodium Chloride 0.9% 500 ML IV ONE (13:55)
[2017-07-20] MEDS ORDERED: Midazolam 2 MG/2 ML VIAL ONE (15:20)
--- NOTE | 2017-07-20 15:27 | PCM.SURG1 ---
Surgeon's Initial Post Op Note - Surgeon's Notes Surgeon: Dr. Boyce Carpet Installer: Smita PGY1 Type of Anesthesia: General Endo Pre-Operative Diagnosis: ESRD needing HD Operative Findings: see operative report Post-Operative Diagnosis: ESRD needing HD Operation Performed: Left internal jugular vein permacath insertion Specimen/Specimens Removed: N/A Estimated Blood Loss: EBL {In ML}: 5 Blood Products Given: N/A Drains Used: No Drains Post-Op Condition: Good Date of Surgery/Procedure: 07/20/17 Time of Surgery/Procedure: 15:31
[2017-07-20] MEDS ORDERED: Calcium Gluconate 4.65 mEq/10 ml Inj ONE (15:37)
[2017-07-20] MEDS ORDERED: Sodium Bicarbonate (8.4%) 50 Meq Syringe ONE (15:37)
[2017-07-20] MEDS ORDERED: Propofol 10 mg/ml 1,000 MG/100 ML VIAL IV PRN (16:06)
--- NOTE | 2017-07-20 16:25 | CP.PCM.PN ---
Subjective - Date & Time of Evaluation Date of Evaluation: 07/20/17 Time of Evaluation: 15:00 - Subjective Subjective: Patient received at 1500, patient extubated and saturating 93% on facemask, eyes opening. Patient transfered to ICU with monitors. patient placed on bipap once in icu, 02 saturation 88%. bipap removed and ambubag ventilation iniated, patinet reintubated. Patient unresponsive, code blue iniated. Pulse regained post 2 doses of epipnephrine. patient endorsed to table operator. Objective - Vital Signs/Intake and Output Vital Signs (last 24 hours): Temp Pulse Resp BP Pulse Ox 98.1 F 80 26 H 117/54 L 99 07/20/17 12:00 07/20/17 12:52 07/20/17 12:07 07/20/17 13:31 07/20/17 12:52 Intake and Output: 07/20/17 07/20/17 06:59 18:59 Intake Total 333.7 283.6 Output Total 950 680 Balance -616.3 -396.4 - Medications Medications: Current Medications Albuterol/Ipratropium (Duoneb 3 Mg/0.5 Mg (3 Ml) Ud) 3 ml INH RQ6 [facility] Ascorbic Acid (Vitamin C 250 Mg Tab) 250 mg PO DAILY [facility] Last Admin: 07/20/17 10:12 Dose: Not Given Benzocaine/Menthol (Cepacol Sore Throat) 1 love MT Q2 PRN PRN Reason: Sore Throat Last Admin: 07/17/17 20:25 Dose: 1 love Calcium Acetate (Phoslo) 1,334 mg PO TID [facility] Clopidogrel Bisulfate (Plavix) 75 mg PO DAILY [facility] Cyproheptadine HCl (Periactin) 4 mg PO BID [facility] Last Admin: 07/20/17 09:30 Dose: Not Given Donepezil HCl (Aricept) 10 mg PO HS [facility] Last Admin: 07/19/17 21:19 Dose: 10 mg Ferrous Sulfate (Feosol) 325 mg PO Q12H [facility] Last Admin: 07/20/17 05:49 Dose: Not Given Gemfibrozil (Lopid) 600 mg PO BID [facility] Last Admin: 07/20/17 09:30 Dose: Not Given Home Med (Fesoterodine Fumarate [Toviaz]) 8 mg PO DAILY [facility] Tigecycline 50 mg/ Dextrose 100 mls @ 100 mls/hr IVPB Q12H [facility] Last Admin: 07/20/17 00:09 Dose: 100 mls/hr Metronidazole 250 mg/ (Miscellaneous) 50 mls @ 100 mls/hr IVPB Q8 [facility] Last Admin: 07/20/17 05:20 Dose: 100 mls/hr Amiodarone HCl 900 mg/ (Dextrose) 500 mls @ 16.66 mls/hr IV .Q24H ONE; 0.5 MG/ MIN PRN Reason: Protocol Stop: 07/20/17 20:32 Last Admin: 07/20/17 05:19 Dose: 16.66 mls/hr Norepinephrine Bitartrate 4 mg (/ Sodium Chloride) 254 mls @ 15.24 mls/hr IV .[id number] PRN; Protocol; 4 MCG/MIN PRN Reason: TITRATE PER MD ORDER Propofol (Diprivan) 1,000 mg in 100 mls @ 1.943 mls/hr IV .Q24H PRN; Protocol; 5 MCG/KG/MIN PRN Reason: TITRATE PER MD ORDER Insulin Human Regular (Novolin R) 0 unit SC ACHS [facility] PRN Reason: Protocol Last Admin: 07/20/17 08:35 Dose: 2 unit Latanoprost (Xalatan Opht) 0 ml OU HS [facility] Last Admin: 07/19/17 21:19 Dose: 2.5 ml Levothyroxine Sodium (Synthroid) 50 mcg PO DAILY@0630 [facility] Last Admin: 07/20/17 05:49 Dose: Not Given Lorazepam (Ativan) 2 mg IVP Q4 PRN PRN Reason: Anxiety Meclizine HCl (Antivert) 12.5 mg PO TID [facility] Last Admin: 07/20/17 10:18 Dose: Not Given Metoprolol Succinate (Toprol Xl) 100 mg PO DAILY [facility] Last Admin: 07/14/17 13:41 Dose: 100 mg Morphine Sulfate (Morphine) 0.5 mg IVP Q6H PRN PRN Reason: Pain, severe (8-10) Last Admin: 07/20/17 01:18 Dose: 0.5 mg Ondansetron HCl (Zofran Inj) 4 mg IVP Q6 PRN PRN Reason: Nausea/Vomiting Pantoprazole Sodium (Protonix Inj) 40 mg IVP DAILY [facility] Last Admin: 07/20/17 10:32 Dose: 40 mg Rosuvastatin Calcium (Crestor) 10 mg PO HS [facility] Last Admin: 07/19/17 21:19 Dose: 10 mg Saccharomyces Boulardii (Florastor) 250 mg PO BID [facility] Last Admin: 07/20/17 09:29 Dose: Not Given - Labs Labs: 07/20/17 06:50 07/20/17 06:50 PT 14.3 SECONDS (9.7-12.2) H 07/16/17 04:00 INR 1.3 07/16/17 04:00 APTT 29 SECONDS (21-34) 07/13/17 20:04
--- NOTE | 2017-07-20 16:27 | CP.PCM.PN ---
Subjective - Date & Time of Evaluation Date of Evaluation: 07/20/17 Time of Evaluation: 16:25 - Subjective Subjective: patient revaluated post code. patient alert and awake. following commands. remains intubated. vitals stable. Objective - Vital Signs/Intake and Output Vital Signs (last 24 hours): Temp Pulse Resp BP Pulse Ox 98.1 F 80 26 H 117/54 L 99 07/20/17 12:00 07/20/17 12:52 07/20/17 12:07 07/20/17 13:31 07/20/17 12:52 Intake and Output: 07/20/17 07/20/17 06:59 18:59 Intake Total 333.7 283.6 Output Total 950 680 Balance -616.3 -396.4 - Medications Medications: Current Medications Albuterol/Ipratropium (Duoneb 3 Mg/0.5 Mg (3 Ml) Ud) 3 ml INH RQ6 [facility] Ascorbic Acid (Vitamin C 250 Mg Tab) 250 mg PO DAILY [facility] Last Admin: 07/20/17 10:12 Dose: Not Given Benzocaine/Menthol (Cepacol Sore Throat) 1 love MT Q2 PRN PRN Reason: Sore Throat Last Admin: 07/17/17 20:25 Dose: 1 love Calcium Acetate (Phoslo) 1,334 mg PO TID [facility] Clopidogrel Bisulfate (Plavix) 75 mg PO DAILY [facility] Cyproheptadine HCl (Periactin) 4 mg PO BID [facility] Last Admin: 07/20/17 09:30 Dose: Not Given Donepezil HCl (Aricept) 10 mg PO HS [facility] Last Admin: 07/19/17 21:19 Dose: 10 mg Ferrous Sulfate (Feosol) 325 mg PO Q12H [facility] Last Admin: 07/20/17 05:49 Dose: Not Given Gemfibrozil (Lopid) 600 mg PO BID [facility] Last Admin: 07/20/17 09:30 Dose: Not Given Home Med (Fesoterodine Fumarate [Toviaz]) 8 mg PO DAILY [facility] Tigecycline 50 mg/ Dextrose 100 mls @ 100 mls/hr IVPB Q12H [facility] Last Admin: 07/20/17 00:09 Dose: 100 mls/hr Metronidazole 250 mg/ (Miscellaneous) 50 mls @ 100 mls/hr IVPB Q8 [facility] Last Admin: 07/20/17 05:20 Dose: 100 mls/hr Amiodarone HCl 900 mg/ (Dextrose) 500 mls @ 16.66 mls/hr IV .Q24H ONE; 0.5 MG/ MIN PRN Reason: Protocol Stop: 07/20/17 20:32 Last Admin: 07/20/17 05:19 Dose: 16.66 mls/hr Norepinephrine Bitartrate 4 mg (/ Sodium Chloride) 254 mls @ 15.24 mls/hr IV .[id number] PRN; Protocol; 4 MCG/MIN PRN Reason: TITRATE PER MD ORDER Propofol (Diprivan) 1,000 mg in 100 mls @ 1.943 mls/hr IV .Q24H PRN; Protocol; 5 MCG/KG/MIN PRN Reason: TITRATE PER MD ORDER Insulin Human Regular (Novolin R) 0 unit SC ACHS [facility] PRN Reason: Protocol Last Admin: 07/20/17 08:35 Dose: 2 unit Latanoprost (Xalatan Opht) 0 ml OU HS [facility] Last Admin: 07/19/17 21:19 Dose: 2.5 ml Levothyroxine Sodium (Synthroid) 50 mcg PO DAILY@0630 [facility] Last Admin: 07/20/17 05:49 Dose: Not Given Lorazepam (Ativan) 2 mg IVP Q4 PRN PRN Reason: Anxiety Meclizine HCl (Antivert) 12.5 mg PO TID [facility] Last Admin: 07/20/17 10:18 Dose: Not Given Metoprolol Succinate (Toprol Xl) 100 mg PO DAILY [facility] Last Admin: 07/14/17 13:41 Dose: 100 mg Morphine Sulfate (Morphine) 0.5 mg IVP Q6H PRN PRN Reason: Pain, severe (8-10) Last Admin: 07/20/17 01:18 Dose: 0.5 mg Ondansetron HCl (Zofran Inj) 4 mg IVP Q6 PRN PRN Reason: Nausea/Vomiting Pantoprazole Sodium (Protonix Inj) 40 mg IVP DAILY [facility] Last Admin: 07/20/17 10:32 Dose: 40 mg Rosuvastatin Calcium (Crestor) 10 mg PO HS [facility] Last Admin: 07/19/17 21:19 Dose: 10 mg Saccharomyces Boulardii (Florastor) 250 mg PO BID [facility] Last Admin: 07/20/17 09:29 Dose: Not Given - Labs Labs: 07/20/17 06:50 07/20/17 06:50 PT 14.3 SECONDS (9.7-12.2) H 07/16/17 04:00 INR 1.3 07/16/17 04:00 APTT 29 SECONDS (21-34) 07/13/17 20:04
[2017-07-20 16:33] LABS: ABG ALLEN TEST POS; ABG MECHANICAL RATE 16; ARTERIAL BLOOD GAS MODE PRVC; ARTERIAL BLOOD HGB O2 SAT 96.9 % (95.0-98.0); ATERIAL BLOOD GAS PEEP 5; CARBOXYHEMOGLOBIN 1.2 % (0.5-1.5); DRAW SITE RBA
--- NOTE | 2017-07-20 16:38 | RAD ---
PROCEDURE: Intraoperative Fluoroscopy. HISTORY: RENAL FAILURE FINDINGS: Fluoroscopic assistance was provided for venous access catheter placement. Please refer to the operative report from
--- NOTE | 2017-07-20 18:00 | RAD ---
HISTORY: s/p permacath COMPARISON: Chest x-ray performed 07/18/17 TECHNIQUE: Chest, one view. FINDINGS: Right IJ approach central venous catheter extends the SVC. Left-sided dialysis catheter extends the cavoatrial junction. Endotracheal tube terminates approximately 4.2 cm above the annette. Nasogastric tube extends expected location of the stomach. LUNGS: Small left basilar atelectasis/infiltrate and or small pleural effusion. The right costophrenic angle is excluded from view. No definite pneumothorax. CARDIOVASCULAR: Mild cardiomegaly. Dense atherosclerotic calcifications of the aorta. Ectatic aorta. OSSEOUS STRUCTURES: No acute osseous abnormality identified. VISUALIZED UPPER ABDOMEN: Cholecystectomy clips. OTHER FINDINGS: None. IMPRESSION: Right IJ approach central venous catheter extends the SVC. Left-sided dialysis catheter extends the cavoatrial junction. Endotracheal tube terminates approximately 4.2 cm above the annette. Nasogastric tube extends expected location of the stomach. Small left basilar atelectasis/infiltrate and or small pleural effusion. Cardiomegaly. Dense atherosclerotic calcifications of the aorta. Cholecystectomy clips.
--- NOTE | 2017-07-20 18:31 | CP.PCM.PN ---
<Effie Vogt - Last Filed: 07/20/17 18:25> Subjective - Date & Time of Evaluation Date of Evaluation: 07/20/17 Time of Evaluation: 03:37 - Subjective Subjective: Patient s/p left internal jugular vein permacath insertion back in ICU and in respiratory distress. Patient went into asystole and Code Blue called at 15:37. Patient intubated. Compressions started. Two doses epinephrine given. Norepinephrine drip started. 1 dose bicarb and 1 dose calcium gluconate given. Pulses felt and code blue stopped at 15:39. Objective - Vital Signs/Intake and Output Vital Signs (last 24 hours): Temp Pulse Resp BP Pulse Ox 989 F H 101 H 22 116/67 99 07/20/17 16:45 07/20/17 17:00 07/20/17 17:00 07/20/17 18:15 07/20/17 16:45 Intake and Output: 07/20/17 07/20/17 06:59 18:59 Intake Total 333.7 393.0 Output Total 950 931 Balance -616.3 -538.0 - Medications Medications: Current Medications Albuterol/Ipratropium (Duoneb 3 Mg/0.5 Mg (3 Ml) Ud) 3 ml INH RQ6 [facility] Ascorbic Acid (Vitamin C 250 Mg Tab) 250 mg PO DAILY [facility] Last Admin: 07/20/17 10:12 Dose: Not Given Benzocaine/Menthol (Cepacol Sore Throat) 1 love MT Q2 PRN PRN Reason: Sore Throat Last Admin: 07/17/17 20:25 Dose: 1 love Calcium Acetate (Phoslo) 1,334 mg PO TID [facility] Clopidogrel Bisulfate (Plavix) 75 mg PO DAILY [facility] Cyproheptadine HCl (Periactin) 4 mg PO BID [facility] Last Admin: 07/20/17 09:30 Dose: Not Given Donepezil HCl (Aricept) 10 mg PO HS [facility] Last Admin: 07/19/17 21:19 Dose: 10 mg Ferrous Sulfate (Feosol) 325 mg PO Q12H [facility] Last Admin: 07/20/17 05:49 Dose: Not Given Gemfibrozil (Lopid) 600 mg PO BID [facility] Last Admin: 07/20/17 09:30 Dose: Not Given Home Med (Fesoterodine Fumarate [Toviaz]) 8 mg PO DAILY [facility] Tigecycline 50 mg/ Dextrose 100 mls @ 100 mls/hr IVPB Q12H [facility] Last Admin: 07/20/17 13:00 Dose: 100 mls/hr Metronidazole 250 mg/ (Miscellaneous) 50 mls @ 100 mls/hr IVPB Q8 [facility] Last Admin: 07/20/17 13:40 Dose: 100 mls/hr Amiodarone HCl 900 mg/ (Dextrose) 500 mls @ 16.66 mls/hr IV .Q24H ONE; 0.5 MG/ MIN PRN Reason: Protocol Stop: 07/20/17 20:32 Last Admin: 07/20/17 05:19 Dose: 16.66 mls/hr Norepinephrine Bitartrate 4 mg (/ Sodium Chloride) 254 mls @ 15.24 mls/hr IV .[id number] PRN; Protocol; 4 MCG/MIN PRN Reason: TITRATE PER MD ORDER Last Titration: 07/20/17 17:09 Dose: 15 mcg/min, 57.15 mls/hr Propofol (Diprivan) 1,000 mg in 100 mls @ 1.943 mls/hr IV .Q24H PRN; Protocol; 5 MCG/KG/MIN PRN Reason: TITRATE PER MD ORDER Last Titration: 07/20/17 17:00 Dose: 40 mcg/kg/min, 15.546 mls/hr Insulin Human Regular (Novolin R) 0 unit SC ACHS [facility] PRN Reason: Protocol Last Admin: 07/20/17 17:55 Dose: 4 unit Latanoprost (Xalatan Opht) 0 ml OU HS [facility] Last Admin: 07/19/17 21:19 Dose: 2.5 ml Levothyroxine Sodium (Synthroid) 50 mcg PO DAILY@0630 [facility] Last Admin: 07/20/17 05:49 Dose: Not Given Lorazepam (Ativan) 2 mg IVP Q4 PRN PRN Reason: Anxiety Meclizine HCl (Antivert) 12.5 mg PO TID [facility] Last Admin: 07/20/17 14:00 Dose: Not Given Metoprolol Succinate (Toprol Xl) 100 mg PO DAILY [facility] Last Admin: 07/14/17 13:41 Dose: 100 mg Morphine Sulfate (Morphine) 0.5 mg IVP Q6H PRN PRN Reason: Pain, severe (8-10) Last Admin: 07/20/17 01:18 Dose: 0.5 mg Ondansetron HCl (Zofran Inj) 4 mg IVP Q6 PRN PRN Reason: Nausea/Vomiting Pantoprazole Sodium (Protonix Inj) 40 mg IVP DAILY [facility] Last Admin: 07/20/17 10:32 Dose: 40 mg Rosuvastatin Calcium (Crestor) 10 mg PO HS [facility] Last Admin: 07/19/17 21:19 Dose: 10 mg Saccharomyces Boulardii (Florastor) 250 mg PO BID [facility] Last Admin: 07/20/17 09:29 Dose: Not Given - Labs Labs: 07/20/17 06:50 07/20/17 06:50 PT 14.3 SECONDS (9.7-12.2) H 07/16/17 04:00 INR 1.3 07/16/17 04:00 APTT 29 SECONDS (21-34) 07/13/17 20:04 <Heath Dawkins - Last Filed: 07/27/17 14:29> Objective - Vital Signs/Intake and Output Vital Signs (last 24 hours): Temp Pulse Resp BP Pulse Ox 97.9 F 97 H 21 102/55 L 99 07/27/17 12:50 07/27/17 12:50 07/27/17 12:50 07/27/17 12:50 07/27/17 12:50 Intake and Output: 07/27/17 07/27/17 06:59 18:59 Intake Total 440 120 Output Total 450 Balance -10 120 - Medications Medications: Current Medications Albuterol Sulfate (Albuterol 0.042% Inhal Ruby (1.25mg/3ml) Ud) 1.25 mg INH RQ6 PRN PRN Reason: Wheezing Last Admin: 07/27/17 07:10 Dose: 1.25 mg Ascorbic Acid (Vitamin C 250 Mg Tab) 250 mg PO DAILY [facility] Last Admin: 07/27/17 12:00 Dose: 250 mg Aspirin (Aspirin Chewable) 81 mg PO DAILY [facility] Last Admin: 07/27/17 12:00 Dose: 81 mg Benzocaine/Menthol (Cepacol Sore Throat) 1 love MT Q2 PRN PRN Reason: Sore Throat Last Admin: 07/25/17 09:12 Dose: 1 love Calcium Acetate (Phoslo) 1,334 mg PO TID [facility] Last Admin: 07/27/17 14:06 Dose: 1,334 mg Clopidogrel Bisulfate (Plavix) 75 mg PO DAILY [facility] Last Admin: 07/27/17 12:00 Dose: 75 mg Cyproheptadine HCl (Periactin) 4 mg PO BID [facility] Last Admin: 07/27/17 12:00 Dose: 4 mg Donepezil HCl (Aricept) 10 mg PO HS [facility] Last Admin: 07/26/17 21:13 Dose: 10 mg Epoetin Romel (Procrit) 10,000 unit IV MWF [facility] Last Admin: 07/27/17 11:18 Dose: 10,000 unit Ferrous Sulfate (Feosol) 325 mg PO Q12H [facility] Last Admin: 07/27/17 06:43 Dose: 325 mg Home Med (Fesoterodine Fumarate [Toviaz]) 8 mg PO DAILY [facility] Hydromorphone HCl (Dilaudid) 0.5 mg IVP Q4 PRN PRN Reason: Pain, severe (8-10) Last Admin: 07/27/17 03:08 Dose: 0.5 mg Tigecycline 50 mg/ Dextrose 100 mls @ 100 mls/hr IVPB Q12H [facility] Last Admin: 07/27/17 13:53 Dose: 100 mls/hr Metronidazole 250 mg/ (Miscellaneous) 50 mls @ 100 mls/hr IVPB Q8 [facility] Last Admin: 07/27/17 13:53 Dose: 100 mls/hr Insulin Human Regular (Novolin R) 0 unit SC [facility] PRN Reason: Protocol Last Admin: 07/27/17 12:00 Dose: 2 unit Latanoprost (Xalatan Opht) 0 ml OU HS [facility] Last Admin: 07/26/17 21:14 Dose: 2.5 ml Levothyroxine Sodium (Synthroid) 50 mcg PO DAILY@0630 [facility] Last Admin: 07/27/17 06:43 Dose: 50 mcg Metoprolol Succinate (Toprol Xl) 100 mg PO DAILY [facility] Last Admin: 07/14/17 13:41 Dose: 100 mg Ondansetron HCl (Zofran Inj) 4 mg IVP Q6 PRN PRN Reason: Nausea/Vomiting Pantoprazole Sodium (Protonix Ec Tab) 40 mg PO DAILY [facility] Last Admin: 07/27/17 12:00 Dose: 40 mg Polyethylene Glycol (Miralax) 17 gm PO DAILY [facility] Last Admin: 07/27/17 13:48 Dose: Not Given Rosuvastatin Calcium (Crestor) 10 mg PO HS [facility] Last Admin: 07/26/17 21:13 Dose: 10 mg Saccharomyces Boulardii (Florastor) 250 mg PO BID [facility] Last Admin: 07/27/17 12:00 Dose: 250 mg - Labs Labs: 07/27/17 09:55 07/27/17 09:55 PT 14.3 SECONDS (9.7-12.2) H 07/16/17 04:00 INR 1.3 07/16/17 04:00 APTT 29 SECONDS (21-34) 07/13/17 20:04 Assessment and Plan (1) JAY JAY (acute kidney injury) Status: Acute (2) Chronic kidney disease, stage III (moderate) Status: Acute Attending/Attestation - Attestation I have personally seen and examined this patient.: Yes I have fully participated in the care of the patient.: Yes I have reviewed all pertinent clinical information, including history, physical exam and plan: Yes Notes (Text): 07/27/17 14:28 Patient was evaluated. Immediately postoperatively Rita up to respiratory arrest, complicated by cardiac arrest. Patient was resuscitated. Immediately intubated. CPR was done. Patient also started on hemodialysis after that. After the brief CPR patient does awake and responding. No hypothermia blanket applied. Family of bedside. Time spent 45 minutes
--- NOTE | 2017-07-20 18:43 | CP.CCUPN ---
CCU Subjective - Physician Review Subjective (Free Text): Patient seen and examined at bedside. Patient says he is still having generalized abdominal pain. Patient denies chest pain, nausea, vomiting. Full ROS unobtainable due to patient's dementia. 07/17/17 16:22 07/20/17 18:31 CCU Objective - Vital Signs / Intake & Output Vital Signs (Last 4 hours): Vital Signs Temp Pulse Pulse Resp BP BP Pulse Ox 07/20/17 18:21 96 H 15 113/61 99 07/20/17 18:16 95 H 23 116/67 100 07/20/17 18:15 96 H 22 116/67 100 07/20/17 18:11 96 H 19 120/62 99 07/20/17 18:06 95 H 17 117/62 100 07/20/17 18:01 97 H 18 121/64 121/64 100 07/20/17 18:00 95 H 21 100 07/20/17 17:56 94 H 17 110/73 100 07/20/17 17:51 94 H 20 106/75 100 07/20/17 17:47 93 H 17 105/41 L 99 07/20/17 17:45 92 H 16 105/41 L 98 07/20/17 17:41 92 H 16 82/58 L 97 07/20/17 17:36 91 H 24 97/51 L 98 07/20/17 17:31 93 H 22 99/49 L 97 07/20/17 17:30 96 H 21 99/49 L 97 07/20/17 17:26 91 H 13 93/54 L 97 07/20/17 17:22 93 H 24 77/48 L 95 07/20/17 17:20 90 24 82/47 L 96 07/20/17 17:16 87 22 68/39 L 96 07/20/17 17:15 87 22 68/39 L 96 07/20/17 17:11 89 23 63/35 L 95 07/20/17 17:09 89 23 56/33 L 95 07/20/17 17:08 89 22 54/33 L 95 07/20/17 17:06 89 24 54/31 L 95 07/20/17 17:05 89 22 53/31 L 95 07/20/17 17:04 89 24 51/32 L 94 L 07/20/17 17:01 90 23 53/32 L 95 07/20/17 17:00 90 21 100/54 L 53/32 L 96 07/20/17 16:45 989 F H 101 H 101 H 22 100/54 L 100/54 L 99 07/20/17 16:30 107 H 25 H 87/50 L 07/20/17 16:00 96.7 F L Intake and Output (Last 8hrs): Intake & Output 07/20/17 07/20/17 07/20/17 06:59 14:59 22:59 Intake Total 283.6 283.6 109.4 Output Total 560 680 251 Balance -276.4 -396.4 -141.6 Weight 142 lb 12.8 oz 150 lb 5.684 oz Intake: IV 0 Intake, IV Amount 283.6 283.6 109.4 Right Distal Port 150 150 15.6 Internal Jugular Right Medial Port 133.6 133.6 93.8 Internal Jugular Output: Urine 560 680 250 Urethral ([place]) 560 680 250 Stool 1 Other: # Bowel Movements 0 0 - Physical Exam Head: Positive for: Atraumatic, Normocephalic Pupils: Positive for: PERRL Extroacular Muscles: Positive for: EOMI Mouth: Positive for: Dry Respiratory/Chest: Positive for: Rhonchi. Negative for: Respiratory Distress, Accessory Muscle Use Cardiovascular: Positive for: Normal S1, S2 Abdomen: Positive for: Tenderness, Distention Lower Extremity: Negative for: Edema Neurological: Positive for: GCS=15 Skin: Positive for: Warm, Normal Color Psychiatric: Positive for: Alert. Negative for: Oriented x 3 - Medications Active Medications: Active Medications Generic Name Dose Route Start Last Admin Trade Name Freq PRN Reason Stop Dose Admin Albuterol/Ipratropium 3 ml 07/20/17 20:00 Duoneb 3 Mg/0.5 Mg (3 Ml) Ud INH RQ6 DARINEL Ascorbic Acid 250 mg 07/14/17 10:00 07/20/17 10:12 Vitamin C 250 Mg Tab PO Not Given DAILY DARINEL Benzocaine/Menthol 1 love 07/14/17 04:24 07/17/17 20:25 Cepacol Sore Throat MT 1 love Q2 PRN Administration Sore Throat Calcium Acetate 1,334 mg 07/20/17 11:16 Phoslo PO TID DARINEL Clopidogrel Bisulfate 75 mg 07/14/17 10:00 Plavix PO DAILY [facility] Cyproheptadine HCl 4 mg 07/14/17 10:00 07/20/17 09:30 Periactin PO Not Given BID DARINEL Donepezil HCl 10 mg 07/13/17 22:00 07/19/17 21:19 Aricept PO 10 mg HS DARINEL Administration Ferrous Sulfate 325 mg 07/13/17 18:45 07/20/17 05:49 Feosol PO Not Given Q12H DARINEL Gemfibrozil 600 mg 07/14/17 10:00 07/20/17 09:30 Lopid PO Not Given BID [facility] Home Med 8 mg 07/14/17 10:00 Fesoterodine Fumarate [Toviaz] PO DAILY [facility] Tigecycline 50 mg/ Dextrose 100 mls @ 100 mls/hr 07/18/17 01:00 07/20/17 13: 00 IVPB 100 mls/hr Q12H DARINEL Administration Metronidazole 250 mg/ 50 mls @ 100 mls/hr 07/18/17 22:15 07/20/17 13:40 Miscellaneous IVPB 100 mls/hr Q8 DARINEL Administration Amiodarone HCl 900 mg/ 500 mls @ 16.66 mls/hr 07/19/17 20:33 07/20/17 05:19 Dextrose IV 07/20/17 20:32 16.66 mls/hr .Q24H ONE Administration Protocol 0.5 MG/MIN Norepinephrine Bitartrate 4 mg 254 mls @ 15.24 mls/hr 07/20/17 15:42 17:09 / Sodium Chloride IV 15 mcg/min .[id number] PRN 57.15 mls/hr TITRATE PER MD ORDER Titration Protocol 4 MCG/MIN Propofol 1,000 mg in 100 mls @ 1.943 mls/hr 07/20/17 16:06 07/20/17 17:00 Diprivan IV 40 mcg/kg/min .Q24H PRN 15.546 mls/hr TITRATE PER MD ORDER Titration Protocol 5 MCG/KG/MIN Insulin Human Regular 0 unit 07/17/17 07:30 07/20/17 17:55 Novolin R SC 4 unit ACHS DARINEL Administration Protocol Latanoprost 0 ml 07/13/17 22:00 07/19/17 21:19 Xalatan Opht OU 2.5 ml HS DARINEL Administration Levothyroxine Sodium 50 mcg 07/14/17 06:30 07/20/17 05:49 Synthroid PO Not Given DAILY@0630 [facility] Lorazepam 2 mg 07/20/17 16:04 Ativan IVP Q4 PRN Anxiety Meclizine HCl 12.5 mg 07/14/17 10:00 07/20/17 14:00 Antivert PO Not Given TID DARINEL Metoprolol Succinate 100 mg 07/13/17 21:59 07/14/17 13:41 Toprol Xl PO 100 mg DAILY DARINEL Administration Morphine Sulfate 0.5 mg 07/19/17 12:44 07/20/17 01:18 Morphine IVP 0.5 mg Q6H PRN Administration Pain, severe (8-10) Ondansetron HCl 4 mg 07/14/17 00:38 Zofran Inj IVP Q6 PRN Nausea/Vomiting Pantoprazole Sodium 40 mg 07/14/17 10:00 07/20/17 10:32 Protonix Inj IVP 40 mg DAILY [facility] Administration Rosuvastatin Calcium 10 mg 07/13/17 22:00 07/19/17 21:19 Crestor PO 10 mg HS [facility] Administration Saccharomyces Boulardii 250 mg 07/14/17 10:00 07/20/17 09:29 Florastor PO Not Given BID [facility] - Patient Studies Lab Studies: Microbiology Studies 07/17/17 08:00 Blood Culture - Preliminary Blood-Venous NO GROWTH AFTER 48 HOURS 07/17/17 08:00 S.aureus & Coag-Neg Staph PNA FISH - Final Blood-Venous Blood Culture - Final Enterococcus Faecium Gram Stain - Final Lab Studies 07/20/17 07/20/17 07/20/17 Range/Units 17:51 16:30 15:43 WBC (4.8-10.8) K/uL RBC (4.40-5.90) Mil/uL Hgb (12.0-18.0) g/dL Hct (35.0-51.0) % MCV (80.0-94.0) fL MCH (27.0-31.0) pg MCHC (33.0-37.0) g/dL RDW (11.5-14.5) % Plt Count (130-400) K/uL MPV (7.2-11.7) fL Differential Comment Puncture Site Rba pCO2 33 L (35-45) mm/Hg pO2 116 H (80-100) mm/Hg HCO3 16.1 L (21-28) mmol/L ABG pH 7.26 L (7.35-7.45) ABG Total CO2 15.8 L (22-28) mmol/L ABG O2 Saturation 99.0 H (95-98) % ABG Base Excess -11.3 L (-2.0-3.0) mmol/L ABG Hemoglobin 9.4 L (11.7-17.4) g/dL ABG Carboxyhemoglobin 1.2 (0.5-1.5) % POC ABG HHb (Measured) 1.0 (0.0-5.0) % ABG Methemoglobin 1.0 (0.0-3.0) % Nj Test Pos A-a O2 Difference 556.0 mm/Hg Respiratory Index 4.8 Hgb O2 Saturation 96.9 (95.0-98.0) % Vent Mode Prvc Mechanical Rate 16 FiO2 100.0 % Tidal Volume 500 PEEP 5 Sodium (132-148) mmol/L Potassium (3.6-5.2) mmol/L Chloride (98-107) mmol/L Carbon Dioxide (22-30) mmol/L Anion Gap (10-20) BUN (9-20) mg/dL Creatinine (0.8-1.5) mg/dL Est GFR ( Amer) Est GFR (Non-Af Amer) POC Glucose (mg/dL) 302 H 266 H (65-110) mg/dL Random Glucose (75-110) mg/dL Calcium (8.6-10.4) mg/dl Phosphorus (2.5-4.5) mg/dL Magnesium (1.6-2.3) mg/dL Total Bilirubin (0.2-1.3) mg/dL AST (17-59) U/L ALT (21-72) U/L Alkaline Phosphatase (38-126) U/L Total Protein (6.3-8.3) g/dL Albumin (3.5-5.0) g/dL Globulin (2.2-3.9) gm/dL Albumin/Globulin Ratio (1.0-2.1) Hep Bs Antigen (NEGATIVE) Hep Bs Antibody (NEGATIVE) Hep B Core IgM Ab (NEGATIVE) Hepatitis C Antibody (NEGATIVE) 07/20/17 07/20/17 07/20/17 Range/Units 11:40 07:32 07:11 WBC (4.8-10.8) K/uL RBC (4.40-5.90) Mil/uL Hgb (12.0-18.0) g/dL Hct (35.0-51.0) % MCV (80.0-94.0) fL MCH (27.0-31.0) pg MCHC (33.0-37.0) g/dL RDW (11.5-14.5) % Plt Count (130-400) K/uL MPV (7.2-11.7) fL Differential Comment Puncture Site pCO2 (35-45) mm/Hg pO2 (80-100) mm/Hg HCO3 (21-28) mmol/L ABG pH (7.35-7.45) ABG Total CO2 (22-28) mmol/L ABG O2 Saturation (95-98) % ABG Base Excess (-2.0-3.0) mmol/L ABG Hemoglobin (11.7-17.4) g/dL ABG Carboxyhemoglobin (0.5-1.5) % POC ABG HHb (Measured) (0.0-5.0) % ABG Methemoglobin (0.0-3.0) % Nj Test A-a O2 Difference mm/Hg Respiratory Index Hgb O2 Saturation (95.0-98.0) % Vent Mode Mechanical Rate FiO2 % Tidal Volume PEEP Sodium (132-148) mmol/L Potassium (3.6-5.2) mmol/L Chloride (98-107) mmol/L Carbon Dioxide (22-30) mmol/L Anion Gap (10-20) BUN (9-20) mg/dL Creatinine (0.8-1.5) mg/dL Est GFR ( Amer) Est GFR (Non-Af Amer) POC Glucose (mg/dL) 211 H 222 H (65-110) mg/dL Random Glucose (75-110) mg/dL Calcium (8.6-10.4) mg/dl Phosphorus 9.5 H (2.5-4.5) mg/dL Magnesium 2.3 (1.6-2.3) mg/dL Total Bilirubin (0.2-1.3) mg/dL AST (17-59) U/L ALT (21-72) U/L Alkaline Phosphatase (38-126) U/L Total Protein (6.3-8.3) g/dL Albumin (3.5-5.0) g/dL Globulin (2.2-3.9) gm/dL Albumin/Globulin Ratio (1.0-2.1) Hep Bs Antigen (NEGATIVE) Hep Bs Antibody (NEGATIVE) Hep B Core IgM Ab (NEGATIVE) Hepatitis C Antibody (NEGATIVE) 07/20/17 07/20/17 07/19/17 Range/Units 06:50 06:50 21:07 WBC 11.3 H (4.8-10.8) K/uL RBC 3.45 L (4.40-5.90) Mil/uL Hgb 9.5 L (12.0-18.0) g/dL Hct 28.6 L (35.0-51.0) % MCV 82.9 (80.0-94.0) fL MCH 27.4 (27.0-31.0) pg MCHC 33.0 (33.0-37.0) g/dL RDW 15.3 H (11.5-14.5) % Plt Count 263 (130-400) K/uL MPV 8.1 (7.2-11.7) fL Differential Comment Puncture Site pCO2 (35-45) mm/Hg pO2 (80-100) mm/Hg HCO3 (21-28) mmol/L ABG pH (7.35-7.45) ABG Total CO2 (22-28) mmol/L ABG O2 Saturation (95-98) % ABG Base Excess (-2.0-3.0) mmol/L ABG Hemoglobin (11.7-17.4) g/dL ABG Carboxyhemoglobin (0.5-1.5) % POC ABG HHb (Measured) (0.0-5.0) % ABG Methemoglobin (0.0-3.0) % Nj Test A-a O2 Difference mm/Hg Respiratory Index Hgb O2 Saturation (95.0-98.0) % Vent Mode Mechanical Rate FiO2 % Tidal Volume PEEP Sodium 124 L (132-148) mmol/L Potassium 3.8 (3.6-5.2) mmol/L Chloride 92 L (98-107) mmol/L Carbon Dioxide 16 L (22-30) mmol/L Anion Gap 20 (10-20) BUN 98 H (9-20) mg/dL Creatinine 5.3 H (0.8-1.5) mg/dL Est GFR ( Amer) 13 Est GFR (Non-Af Amer) 10 POC Glucose (mg/dL) 190 H (65-110) mg/dL Random Glucose 178 H (75-110) mg/dL Calcium 7.6 L (8.6-10.4) mg/dl Phosphorus (2.5-4.5) mg/dL Magnesium (1.6-2.3) mg/dL Total Bilirubin 0.5 (0.2-1.3) mg/dL AST 23 (17-59) U/L ALT 37 (21-72) U/L Alkaline Phosphatase 83 (38-126) U/L Total Protein 6.0 L (6.3-8.3) g/dL Albumin 2.8 L (3.5-5.0) g/dL Globulin 3.2 (2.2-3.9) gm/dL Albumin/Globulin Ratio 0.9 L (1.0-2.1) Hep Bs Antigen (NEGATIVE) Hep Bs Antibody (NEGATIVE) Hep B Core IgM Ab (NEGATIVE) Hepatitis C Antibody (NEGATIVE) 07/19/17 07/19/17 Range/Units 17:46 17:46 WBC (4.8-10.8) K/uL RBC (4.40-5.90) Mil/uL Hgb (12.0-18.0) g/dL Hct (35.0-51.0) % MCV (80.0-94.0) fL MCH (27.0-31.0) pg MCHC (33.0-37.0) g/dL RDW (11.5-14.5) % Plt Count (130-400) K/uL MPV (7.2-11.7) fL Differential Comment Puncture Site pCO2 (35-45) mm/Hg pO2 (80-100) mm/Hg HCO3 (21-28) mmol/L ABG pH (7.35-7.45) ABG Total CO2 (22-28) mmol/L ABG O2 Saturation (95-98) % ABG Base Excess (-2.0-3.0) mmol/L ABG Hemoglobin (11.7-17.4) g/dL ABG Carboxyhemoglobin (0.5-1.5) % POC ABG HHb (Measured) (0.0-5.0) % ABG Methemoglobin (0.0-3.0) % Nj Test A-a O2 Difference mm/Hg Respiratory Index Hgb O2 Saturation (95.0-98.0) % Vent Mode Mechanical Rate FiO2 % Tidal Volume PEEP Sodium (132-148) mmol/L Potassium (3.6-5.2) mmol/L Chloride (98-107) mmol/L Carbon Dioxide (22-30) mmol/L Anion Gap (10-20) BUN (9-20) mg/dL Creatinine (0.8-1.5) mg/dL Est GFR ( Amer) Est GFR (Non-Af Amer) POC Glucose (mg/dL) (65-110) mg/dL Random Glucose (75-110) mg/dL Calcium (8.6-10.4) mg/dl Phosphorus (2.5-4.5) mg/dL Magnesium (1.6-2.3) mg/dL Total Bilirubin (0.2-1.3) mg/dL AST (17-59) U/L ALT (21-72) U/L Alkaline Phosphatase (38-126) U/L Total Protein (6.3-8.3) g/dL Albumin (3.5-5.0) g/dL Globulin (2.2-3.9) gm/dL Albumin/Globulin Ratio (1.0-2.1) Hep Bs Antigen Negative (NEGATIVE) Hep Bs Antibody Negative (NEGATIVE) Hep B Core IgM Ab Negative (NEGATIVE) Hepatitis C Antibody Negative (NEGATIVE) Laboratory Results - last 24 hr 07/19/17 07/19/17 07/19/17 17:46 17:46 21:07 WBC RBC Hgb Hct MCV MCH MCHC RDW Plt Count MPV Differential Comment Puncture Site pCO2 pO2 HCO3 ABG pH ABG Total CO2 ABG O2 Saturation ABG Base Excess ABG Hemoglobin ABG Carboxyhemoglobin POC ABG HHb (Measured) ABG Methemoglobin Nj Test A-a O2 Difference Respiratory Index Hgb O2 Saturation Vent Mode Mechanical Rate FiO2 Tidal Volume PEEP Sodium Potassium Chloride Carbon Dioxide Anion Gap BUN Creatinine Est GFR ( Amer) Est GFR (Non-Af Amer) POC Glucose (mg/dL) 190 H Random Glucose Calcium Phosphorus Magnesium Total Bilirubin AST ALT Alkaline Phosphatase Total Protein Albumin Globulin Albumin/Globulin Ratio Hep Bs Antigen Negative Hep Bs Antibody Negative Hep B Core IgM Ab Negative Hepatitis C Antibody Negative 07/20/17 07/20/17 07/20/17 06:50 06:50 07:11 WBC 11.3 H RBC 3.45 L Hgb 9.5 L Hct 28.6 L MCV 82.9 MCH 27.4 MCHC 33.0 RDW 15.3 H Plt Count 263 MPV 8.1 Differential Comment Puncture Site pCO2 pO2 HCO3 ABG pH ABG Total CO2 ABG O2 Saturation ABG Base Excess ABG Hemoglobin ABG Carboxyhemoglobin POC ABG HHb (Measured) ABG Methemoglobin Nj Test A-a O2 Difference Respiratory Index Hgb O2 Saturation Vent Mode Mechanical Rate FiO2 Tidal Volume PEEP Sodium 124 L Potassium 3.8 Chloride 92 L Carbon Dioxide 16 L Anion Gap 20 BUN 98 H Creatinine 5.3 H Est GFR ( Amer) 13 Est GFR (Non-Af Amer) 10 POC Glucose (mg/dL) 222 H Random Glucose 178 H Calcium 7.6 L Phosphorus Magnesium Total Bilirubin 0.5 AST 23 ALT 37 Alkaline Phosphatase 83 Total Protein 6.0 L Albumin 2.8 L Globulin 3.2 Albumin/Globulin Ratio 0.9 L Hep Bs Antigen Hep Bs Antibody Hep B Core IgM Ab Hepatitis C Antibody 07/20/17 07/20/17 07/20/17 07:32 11:40 15:43 WBC RBC Hgb Hct MCV MCH MCHC RDW Plt Count MPV Differential Comment Puncture Site pCO2 pO2 HCO3 ABG pH ABG Total CO2 ABG O2 Saturation ABG Base Excess ABG Hemoglobin ABG Carboxyhemoglobin POC ABG HHb (Measured) ABG Methemoglobin Nj Test A-a O2 Difference Respiratory Index Hgb O2 Saturation Vent Mode Mechanical Rate FiO2 Tidal Volume PEEP Sodium Potassium Chloride Carbon Dioxide Anion Gap BUN Creatinine Est GFR ( Amer) Est GFR (Non-Af Amer) POC Glucose (mg/dL) 211 H 266 H Random Glucose Calcium Phosphorus 9.5 H Magnesium 2.3 Total Bilirubin AST ALT Alkaline Phosphatase Total Protein Albumin Globulin Albumin/Globulin Ratio Hep Bs Antigen Hep Bs Antibody Hep B Core IgM Ab Hepatitis C Antibody 07/20/17 07/20/17 16:30 17:51 WBC RBC Hgb Hct MCV MCH MCHC RDW Plt Count MPV Differential Comment Puncture Site Rba pCO2 33 L pO2 116 H HCO3 16.1 L ABG pH 7.26 L ABG Total CO2 15.8 L ABG O2 Saturation 99.0 H ABG Base Excess -11.3 L ABG Hemoglobin 9.4 L ABG Carboxyhemoglobin 1.2 POC ABG HHb (Measured) 1.0 ABG Methemoglobin 1.0 Nj Test Pos A-a O2 Difference 556.0 Respiratory Index 4.8 Hgb O2 Saturation 96.9 Vent Mode Prvc Mechanical Rate 16 FiO2 100.0 Tidal Volume 500 PEEP 5 Sodium Potassium Chloride Carbon Dioxide Anion Gap BUN Creatinine Est GFR ( Amer) Est GFR (Non-Af Amer) POC Glucose (mg/dL) 302 H Random Glucose Calcium Phosphorus Magnesium Total Bilirubin AST ALT Alkaline Phosphatase Total Protein Albumin Globulin Albumin/Globulin Ratio Hep Bs Antigen Hep Bs Antibody Hep B Core IgM Ab Hepatitis C Antibody EKG/Cardiology Studies: Cardiology / EKG Studies 07/20/17 08:00 EKG [ELECTROCARDIOGRAM] Routine Comment: Mode Of Transportation: BED Reason For Exam: on amiodarone drip Isolation: Contact Fingerstick Blood Sugar Results: 302 Review of Systems - Review of Systems Systems not reviewed;Unavailable: Intubated Critical Care Progress Note - Nutrition Nutrition: Nutrition Category Date Time Status NPO Diet [DIET] Diets 07/20/17 Dinner Active Assessment/Plan - Assessment and Plan (Free Text) Assessment: 82 M w/ PMHx of Diabetes, HLD, HTN, Hypothyroidism, CKD Stage 3, Alzheimer's Dementia, 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 Code sepsis called on 07/14/17. Neuro: hx Alzheimer's dementia -Aricept 10 mg PO HS -CT head (07/13): no acute intracranial hemorrhage, or suspicious mass effect -Propofol for sedation secondary to intubation Cardio: HTN, hx CVA -Cardiology consulted (Dr. Chau), help appreciated -Home blood pressure medications held because blood pressure low: Amlodipine 10 mg po daily, Metoprolol Succinate 100 mg po daily, Losartan 100 mg PO daily -Plavix 75mg po daily -Crestor 10 mg po HS -Lipitor 80 mg po HS -Gemfibrozil 600 mg po BID -Levophed drip -Negative troponins -TSH and free T4 WNL - echo report from 07/13/17 : left ventricular ejection fraction is within the normal range (60%). moderate concentric left ventricular hypertrophy. transmitral doppler flow pattern is gradeI- abnormal relaxation pattern. Mitral annular calcification is mild. Mitral regurgitation is trace. -Patient went into a fib overnight, started on cardizem drip and switched to 120mg cardizem po daily -Troponin I: .3140 at 6:04, .3280 at 11:48, follow up at 17:45 -Code Blue (07/20/17) called at 15:37, two epis, norepi drip started, 1 bicarb, and 1 calcium gluconate given before ROSC at 15:39 Pulm: bilateral pneumonia, intubated secondary to code blue -CT Abdomen/Pelvis 07/13/17 showed bibasilar lingular and right middle lobe mild nonspecific infiltrates consistent with atelectasis/pneumonia -CXR 07/14/17 showed left basilar consolidative changes with small left pleural effusion -CXR 07/15/17: small left pleural effusion, bibasilar atelectasis -negative influenza A/B, negative urine Legionella -mycoplasma IgM 81, IgG 1.07 GI: abdominal pain likely secondary to gas/ fluid around liver - CT C/A/P showed free air under the right hemidiaphragm and extrahepatic CBD pneumobilia - Surgery consulted (Dr. Boyce) - help appreciated -NPO -NGT in place -CT abdomen and pelvis with IV and PO contrast- showed gas and fluid around left lobe liver and along inferior vena cava that is unchanged, no evidence of extravasation of oral contrast from stomach or duodenem. -Abdominal u/s (07/15): limited sonographic evaluation of the liver for purposes of drainage and did not show the subdiaphragmatic fluid collection see in previous CT -Abdominal xray (07/16): colonic contrast, no mechanical obstruction suggested. -no intervention by IR at this time -constipation, dulcolax 10 mg once ordered : hx overactive bladder -Festerodine 8 mg PO 1x/day -Enlarged Prostate on CT Abdomen/Pelvis -PSA: 23.3 Nephro: CKD stage 3, possible acute on chronic, POD 0 s/p left internal jugular vein permacath insertion - BUN 98, Cr 5.3, worsening - 2+ urine protein and 2+ urine glucose on U/A 07/14/17 - Nephrology consulted (Dr. Oconnell) -IV lasix 20 mg BID -Patient getting dialysis today Endo: hx of diabetes, hypothyroidism - Random glucose from 112-281 - ISS -accuchecks -Synthroid 50 mcg po daily -TSH and T4 WNL ID: Sepsis secondary to likely biliary or hepatic perforation from recent ERCP - Code sepsis called 07/14 - HCAP pneumonia suspected given recent hospitalization and antibiotic use for buttock abscess - Infectious Disease consulted (Dr. Langford), help appreciated -urine cultures: no growth -Negative MRSA -blood culture: gram positive cocci, Enterococcus Faecium -Flagyl -Tigecycline 50mg q12h PPX: DVT: SCD's, hold chemical anticoagulation due to complications s/p ERCP GI: Protonix 40 mg IV daily florastor
[2017-07-20] MEDS: Latanoprost 2.5 ml Opht Soln OU SCH (22:00)
--- NOTE | 2017-07-20 22:48 | CP.PCM.PN ---
Subjective - Date & Time of Evaluation Date of Evaluation: 07/20/17 Time of Evaluation: 22:40 - Subjective Subjective: Pt is intubated, but alert. Admits to chest and abdominal pain. Pt went for portacath, was hypotensive, PEA and was resuscitated. Currently on IV levophed with bp 122 systolic, to be taperd. IV amiodarone was stopped, .CXR recently did not demonstrated CHF. LV EF was normal, with moderate LVH. Objective - Vital Signs/Intake and Output Vital Signs (last 24 hours): Temp Pulse Resp BP Pulse Ox 97.7 F 90 20 119/54 L 100 07/20/17 20:00 07/20/17 22:00 07/20/17 22:00 07/20/17 21:42 07/20/17 22:00 Intake and Output: 07/20/17 07/21/17 18:59 06:59 Intake Total 449.3 421.8 Output Total 1031 860 Balance -581.7 -438.2 - Medications Medications: Current Medications Albuterol/Ipratropium (Duoneb 3 Mg/0.5 Mg (3 Ml) Ud) 3 ml INH RQ6 [facility] Ascorbic Acid (Vitamin C 250 Mg Tab) 250 mg PO DAILY [facility] Last Admin: 07/20/17 10:12 Dose: Not Given Benzocaine/Menthol (Cepacol Sore Throat) 1 love MT Q2 PRN PRN Reason: Sore Throat Last Admin: 07/17/17 20:25 Dose: 1 love Calcium Acetate (Phoslo) 1,334 mg PO TID [facility] Last Admin: 07/20/17 18:00 Dose: Not Given Clopidogrel Bisulfate (Plavix) 75 mg PO DAILY [facility] Cyproheptadine HCl (Periactin) 4 mg PO BID [facility] Last Admin: 07/20/17 19:26 Dose: Not Given Donepezil HCl (Aricept) 10 mg PO HS [facility] Last Admin: 07/20/17 21:22 Dose: 10 mg Ferrous Sulfate (Feosol) 325 mg PO Q12H [facility] Last Admin: 07/20/17 19:25 Dose: Not Given Gemfibrozil (Lopid) 600 mg PO BID [facility] Last Admin: 07/20/17 18:00 Dose: Not Given Home Med (Fesoterodine Fumarate [Toviaz]) 8 mg PO DAILY [facility] Tigecycline 50 mg/ Dextrose 100 mls @ 100 mls/hr IVPB Q12H [facility] Last Admin: 07/20/17 13:00 Dose: 100 mls/hr Metronidazole 250 mg/ (Miscellaneous) 50 mls @ 100 mls/hr IVPB Q8 [facility] Last Admin: 07/20/17 21:22 Dose: 100 mls/hr Norepinephrine Bitartrate 4 mg (/ Sodium Chloride) 254 mls @ 15.24 mls/hr IV .[id number] PRN; Protocol; 4 MCG/MIN PRN Reason: TITRATE PER MD ORDER Last Titration: 07/20/17 21:00 Dose: 4 mcg/min, 15.24 mls/hr Propofol (Diprivan) 1,000 mg in 100 mls @ 1.943 mls/hr IV .Q24H PRN; Protocol; 5 MCG/KG/MIN PRN Reason: TITRATE PER MD ORDER Last Titration: 07/20/17 20:00 Dose: 10 mcg/kg/min, 3.886 mls/hr Insulin Human Regular (Novolin R) 0 unit SC Q6 [facility]IN[facility] PRN Reason: Protocol Latanoprost (Xalatan Opht) 0 ml OU HS [facility] Last Admin: 07/19/17 21:19 Dose: 2.5 ml Levothyroxine Sodium (Synthroid) 50 mcg PO DAILY@0630 [facility] Last Admin: 07/20/17 05:49 Dose: Not Given Lorazepam (Ativan) 2 mg IVP Q4 PRN PRN Reason: Anxiety Meclizine HCl (Antivert) 12.5 mg PO TID [facility] Last Admin: 07/20/17 18:00 Dose: Not Given Metoprolol Succinate (Toprol Xl) 100 mg PO DAILY [facility] Last Admin: 07/14/17 13:41 Dose: 100 mg Morphine Sulfate (Morphine) 0.5 mg IVP Q6H PRN PRN Reason: Pain, severe (8-10) Last Admin: 07/20/17 01:18 Dose: 0.5 mg Ondansetron HCl (Zofran Inj) 4 mg IVP Q6 PRN PRN Reason: Nausea/Vomiting Pantoprazole Sodium (Protonix Inj) 40 mg IVP DAILY [facility] Last Admin: 07/20/17 10:32 Dose: 40 mg Rosuvastatin Calcium (Crestor) 10 mg PO HS [facility] Last Admin: 07/20/17 21:22 Dose: 10 mg Saccharomyces Boulardii (Florastor) 250 mg PO BID [facility] Last Admin: 07/20/17 18:00 Dose: Not Given - Labs Labs: 07/20/17 06:50 07/20/17 06:50 PT 14.3 SECONDS (9.7-12.2) H 07/16/17 04:00 INR 1.3 07/16/17 04:00 APTT 29 SECONDS (21-34) 07/13/17 20:04 - Constitutional Appears: Well - Head Exam Head Exam: NORMAL INSPECTION - Eye Exam Eye Exam: EOMI - ENT Exam ENT Exam: Mucous Membranes Moist - Respiratory Exam Respiratory Exam: Decreased Breath Sounds, Clear to Ausculation Bilateral - Cardiovascular Exam Cardiovascular Exam: REGULAR RHYTHM - GI/Abdominal Exam GI & Abdominal Exam: Hypoactive Bowel Sounds - Rectal Exam Rectal Exam: NORMAL INSPECTION - Exam External exam: NORMAL EXTERNAL EXAM - Neurological Exam Neurological Exam: Alert, Awake - Psychiatric Exam Psychiatric exam: Anxious - Skin Skin Exam: Normal Color Assessment and Plan - Assessment and Plan (Free Text) Assessment: 1. Pt had hypotension after anesthesia for portacath. No evidence of ID. Will check tni. 2 Normal Sinus. 3. Normal LV EF and moderate LVH 4. Pt has remained in sinus. Observe for now.
[2017-07-21] MEDS: Tigecycline 50 MG in Dextrose 5% In Water 100 ML IVPB SCH ×2 (00:39→12:33)
[2017-07-21] MEDS: (Novolin R) Insulin Human Regular 100 units/ml vial SC SCH ×4 (00:41→18:15)
[2017-07-21] MEDS: Albuterol-Ipratrop 3 mg / 0.5 (3 ml) UD INH SCH ×4 (01:29→20:03)
[2017-07-21 05:30] LABS: ABG ALLEN TEST POS; ABG MECHANICAL RATE 16; ARTERIAL BLOOD GAS MODE PRVC; ARTERIAL BLOOD HGB O2 SAT 96.8 % (95.0-98.0); ATERIAL BLOOD GAS PEEP 5; CARBOXYHEMOGLOBIN 1.8 % (0.5-1.5); DRAW SITE RR; HHB 0.1 % (0.0-5.0); METHEMOGLOBIN 1.3 % (0.0-3.0)
[2017-07-21] MEDS: metroNIDAZOLE IV 500 mg/100 ml 250 MG in Premixed IV 1 EA IVPB SCH ×3 (06:00→22:16)
[2017-07-21] MEDS: Levothyroxine 50 MCG TAB PO SCH (06:01)
[2017-07-21 06:59] LABS: BASO # 0.1 K/uL (0.0-0.2); BASO % 0.4 % (0.0-2.0); EOS # 0.1 K/uL (0.0-0.7); EOS % 0.9 % (0.0-4.0); HEMATOCRIT 25.7 % (35.0-51.0); LYMPH # 1.1 K/uL (1.0-4.3); LYMPH % 8.8 % (20.0-40.0); MEAN CELL VOLUME 82.3 fL (80.0-94.0); MEAN CORPUSCULAR HEMOGLOBIN 27.6 pg (27.0-31.0); MEAN CORPUSCULAR HGB CONC 33.5 g/dL (33.0-37.0); MEAN PLATELET VOLUME 8.3 fL (7.2-11.7); MONO # 1.4 K/uL (0.0-0.8); MONO % 10.5 % (0.0-10.0); PLATELET COUNT 182 K/uL (130-400); RED CELL DISTRIBUTION WIDTH 15.3 % (11.5-14.5)
[2017-07-21 07:06] LABS: POTASSIUM 3.5 mmol/L (3.6-5.2)
[2017-07-21 07:08] LABS: ALB/GLOB RATIO 0.8 (1.0-2.1); BILIRUBIN,TOTAL 0.6 mg/dL (0.2-1.3); PHOSPHOROUS 7.6 mg/dL (2.5-4.5); TOTAL PROTEIN 5.6 g/dL (6.3-8.3)
[2017-07-21 07:09] LABS: MAGNESIUM 2.2 mg/dL (1.6-2.3)
--- NOTE | 2017-07-21 07:45 | OP ---
PROCEDURE DATE: 07/20/2017 PREOPERATIVE DIAGNOSES: 1. Renal failure. 2. Need for hemodialysis. 3. Pneumoperitoneum status post stent removal. 4. Narcotic-induced ileus. POSTOPERATIVE DIAGNOSES: 1. Renal failure. 2. Need for hemodialysis. 3. Pneumoperitoneum status post stent removal. 4. Narcotic-induced ileus. PROCEDURES DONE: 1. Left IJ PermCath dialysis catheter placement. 2. Ultrasound-guided venous access. 3. Intraoperative fluoroscopy. SURGEON: The procedure was done by Dr. Austen snell. ANESTHESIA: General endotracheal tube anesthesia. ESTIMATED BLOOD LOSS: Around 10 mL. DRAINS: None. PATHOLOGY: None. COMPLICATIONS: None. INTRAOPERATIVE FINDINGS: The patient had patent left IJ, and fluoroscopy confirmation of guidewire as well as catheter was appropriate, and postoperative x-ray was suggestive of no pneumothorax. DESCRIPTION OF PROCEDURE: On intraoperative steps, this is an 82-year-old male who was diagnosed with renal failure, and the patient was admitted previously with pneumoperitoneum status post ERCP and stent removal, and the patient also had sepsis that was resolved and the patient also had ileus that was resolved and now the patient had a renal failure, and the patient needed dialysis catheter. The family was consented for dialysis catheter placement, and the patient was brought to the OR, placed on an operating table. After induction of anesthesia, the left side of the neck was prepped and draped in usual sterile fashion, and under ultrasound guidance, left IJ venous access was done. The guidewire was placed and fluoroscopy confirmation was done, and now the incision was made in the left infraclavicular area, and the catheter was tunneled from the subcutaneous area through the left IJ incision site, and the guidewire site was dilated with gradual dilatation technique, and the catheter was placed into the dilator sheath, and intraoperative fluoroscopy confirmation of the proper placement of the catheter was done, and now the left IJ incision site was sutured in two layers, subcutaneous and skin with 4-0 Monocryl and left infraclavicular wound site was also closed with 4-0 Monocryl, and the catheter was flushed with heparin saline and also used straight heparin, and intraoperative x-ray was done and it appeared to have no pneumothorax. Dry sterile dressing was applied and the patient was extubated in OR and sent to the ICU for further care. Manohar Boyce MD
--- NOTE | 2017-07-21 07:52 | CP.CCUPN ---
<Effie Vogt - Last Filed: 07/21/17 15:14> CCU Subjective - Physician Review Subjective (Free Text): Patient seen and examined at bedside. Patient is intubated and ROS unobtainable due to patient's current clinical status. CCU Objective - Vital Signs / Intake & Output Vital Signs (Last 4 hours): Vital Signs Temp Pulse Resp BP Pulse Ox 07/21/17 07:00 85 16 07/21/17 06:45 85 17 100 07/21/17 06:42 86 16 113/53 L 100 07/21/17 06:30 113 H 17 98/43 L 100 07/21/17 06:24 88 21 100 07/21/17 06:18 88 17 82/45 L 100 07/21/17 06:15 108 H 20 100 07/21/17 06:12 103 H 16 84/46 L 100 07/21/17 06:00 108 H 21 100 07/21/17 05:45 106 H 17 100 07/21/17 05:42 104 H 18 92/38 L 100 07/21/17 05:30 81 19 07/21/17 05:15 85 18 07/21/17 05:11 83 21 100/43 L 07/21/17 05:00 89 19 07/21/17 04:45 86 16 100 07/21/17 04:41 88 18 93/45 L 100 07/21/17 04:30 85 17 99 07/21/17 04:15 85 16 100 07/21/17 04:11 86 19 96/45 L 100 07/21/17 04:00 99.5 F 85 17 100 Intake and Output (Last 8hrs): Intake & Output 07/20/17 07/21/17 07/21/17 22:59 06:59 14:59 Intake Total 589.5 548.4 37.5 Output Total 1271 220 20 Balance -681.5 328.4 17.5 Weight 150 lb 5.684 oz 150 lb Intake: IV 246 214 Intake, IV Amount 343.5 334.4 37.5 Right Distal Port 19.5 8 Internal Jugular Right Medial Port 274.0 176.4 37.5 Internal Jugular Right Proximal Port 50 150 Internal Jugular Output: Urine 470 220 20 Urethral ([place]) 470 220 20 Stool 1 Other 800 - Physical Exam Head: Positive for: Atraumatic, Normocephalic Pupils: Positive for: PERRL Extroacular Muscles: Positive for: EOMI Mouth: Positive for: Dry Respiratory/Chest: Positive for: Rhonchi. Negative for: Respiratory Distress, Accessory Muscle Use Cardiovascular: Positive for: Normal S1, S2 Abdomen: Positive for: Tenderness, Distention Lower Extremity: Negative for: Edema Neurological: Positive for: GCS=15 Skin: Positive for: Warm, Normal Color Psychiatric: Positive for: Alert. Negative for: Oriented x 3 - Medications Active Medications: Active Medications Generic Name Dose Route Start Last Admin Trade Name Freq PRN Reason Stop Dose Admin Albuterol/Ipratropium 3 ml 07/20/17 20:00 07/21/17 07:30 Duoneb 3 Mg/0.5 Mg (3 Ml) Ud INH 3 ml RQ6 DARINEL Administration Ascorbic Acid 250 mg 07/14/17 10:00 07/20/17 10:12 Vitamin C 250 Mg Tab PO Not Given DAILY [facility] Benzocaine/Menthol 1 love 07/14/17 04:24 07/17/17 20:25 Cepacol Sore Throat MT 1 love Q2 PRN Administration Sore Throat Calcium Acetate 1,334 mg 07/20/17 11:16 07/20/17 18:00 Phoslo PO Not Given TID [facility] Clopidogrel Bisulfate 75 mg 07/14/17 10:00 Plavix PO DAILY [facility] Cyproheptadine HCl 4 mg 07/14/17 10:00 07/20/17 19:26 Periactin PO Not Given BID [facility] Donepezil HCl 10 mg 07/13/17 22:00 07/20/17 21:22 Aricept PO 10 mg HS [facility] Administration Ferrous Sulfate 325 mg 07/13/17 18:45 07/21/17 06:01 Feosol PO 325 mg Q12H DARINEL Administration Gemfibrozil 600 mg 07/14/17 10:00 07/20/17 18:00 Lopid PO Not Given BID [facility] Home Med 8 mg 07/14/17 10:00 Fesoterodine Fumarate [Toviaz] PO DAILY [facility] Hydromorphone HCl 0.5 mg 07/21/17 00:18 Dilaudid IVP Q6H PRN Pain, severe (8-10) Tigecycline 50 mg/ Dextrose 100 mls @ 100 mls/hr 07/18/17 01:00 07/21/17 00: 39 IVPB 100 mls/hr Q12H DARINEL Administration Metronidazole 250 mg/ 50 mls @ 100 mls/hr 07/18/17 22:15 07/21/17 06:00 Miscellaneous IVPB 100 mls/hr Q8 DARINEL Administration Norepinephrine Bitartrate 4 mg 254 mls @ 15.24 mls/hr 07/20/17 15:42 03:00 / Sodium Chloride IV 10 mcg/min .[id number] PRN 38.1 mls/hr TITRATE PER MD ORDER Titration Protocol 4 MCG/MIN Propofol 1,000 mg in 100 mls @ 1.943 mls/hr 07/20/17 16:06 07/21/17 01:00 Diprivan IV 0 mcg/kg/min .Q24H PRN 0 mls/hr TITRATE PER MD ORDER Titration Protocol 5 MCG/KG/MIN Insulin Human Regular 0 unit 07/21/17 00:00 07/21/17 06:56 Novolin R SC Not Given Q6 DARINEL Protocol Latanoprost 0 ml 07/13/17 22:00 07/20/17 22:00 Xalatan Opht OU 2.5 ml HS DARINEL Administration Levothyroxine Sodium 50 mcg 07/14/17 06:30 07/21/17 06:01 Synthroid PO 50 mcg DAILY@0630 DARINEL Administration Lorazepam 2 mg 07/20/17 16:04 Ativan IVP Q4 PRN Anxiety Meclizine HCl 12.5 mg 07/14/17 10:00 07/20/17 18:00 Antivert PO Not Given TID DARINEL Metoprolol Succinate 100 mg 07/13/17 21:59 07/14/17 13:41 Toprol Xl PO 100 mg DAILY DARINEL Administration Ondansetron HCl 4 mg 07/14/17 00:38 Zofran Inj IVP Q6 PRN Nausea/Vomiting Pantoprazole Sodium 40 mg 07/14/17 10:00 07/20/17 10:32 Protonix Inj IVP 40 mg DAILY DARINEL Administration Rosuvastatin Calcium 10 mg 07/13/17 22:00 07/20/17 21:22 Crestor PO 10 mg HS DARINEL Administration Saccharomyces Boulardii 250 mg 07/14/17 10:00 07/20/17 18:00 Florastor PO Not Given BID DARINEL - Patient Studies Lab Studies: Microbiology Studies 07/17/17 08:00 Blood Culture - Preliminary Blood-Venous NO GROWTH AFTER 48 HOURS Lab Studies 07/21/17 07/21/17 07/21/17 Range/Units 06:54 06:54 06:13 WBC 13.0 H (4.8-10.8) K/uL RBC 3.13 L (4.40-5.90) Mil/uL Hgb 8.6 L (12.0-18.0) g/dL Hct 25.7 L (35.0-51.0) % MCV 82.3 (80.0-94.0) fL MCH 27.6 (27.0-31.0) pg MCHC 33.5 (33.0-37.0) g/dL RDW 15.3 H (11.5-14.5) % Plt Count 182 (130-400) K/uL MPV 8.3 (7.2-11.7) fL Neut % (Auto) 79.4 H (50.0-75.0) % Lymph % (Auto) 8.8 L (20.0-40.0) % [place] % (Auto) 10.5 H (0.0-10.0) % Eos % (Auto) 0.9 (0.0-4.0) % Baso % (Auto) 0.4 (0.0-2.0) % Neut # 10.3 H (1.8-7.0) K/uL Lymph # 1.1 (1.0-4.3) K/uL [place] # 1.4 H (0.0-0.8) K/uL Eos # 0.1 (0.0-0.7) K/uL Baso # 0.1 (0.0-0.2) K/uL Differential Comment Puncture Site pCO2 (35-45) mm/Hg pO2 (80-100) mm/Hg HCO3 (21-28) mmol/L ABG pH (7.35-7.45) ABG Total CO2 (22-28) mmol/L ABG O2 Saturation (95-98) % ABG Base Excess (-2.0-3.0) mmol/L ABG Hemoglobin (11.7-17.4) g/dL ABG Carboxyhemoglobin (0.5-1.5) % POC ABG HHb (Measured) (0.0-5.0) % ABG Methemoglobin (0.0-3.0) % Nj Test A-a O2 Difference mm/Hg Respiratory Index Hgb O2 Saturation (95.0-98.0) % Vent Mode Mechanical Rate FiO2 % Tidal Volume PEEP Sodium 127 L (132-148) mmol/L Potassium 3.5 L (3.6-5.2) mmol/L Chloride 93 L (98-107) mmol/L Carbon Dioxide 21 L (22-30) mmol/L Anion Gap 17 (10-20) BUN 72 H (9-20) mg/dL Creatinine 4.1 H (0.8-1.5) mg/dL Est GFR ( Amer) 17 Est GFR (Non-Af Amer) 14 POC Glucose (mg/dL) 219 H (65-110) mg/dL Random Glucose 174 H (75-110) mg/dL Calcium 7.0 L (8.6-10.4) mg/dl Phosphorus 7.6 H (2.5-4.5) mg/dL Magnesium 2.2 (1.6-2.3) mg/dL Total Bilirubin 0.6 (0.2-1.3) mg/dL AST 37 (17-59) U/L ALT 42 (21-72) U/L Alkaline Phosphatase 89 (38-126) U/L Troponin I (0.00-0.120) ng/mL Total Protein 5.6 L (6.3-8.3) g/dL Albumin 2.5 L (3.5-5.0) g/dL Globulin 3.0 (2.2-3.9) gm/dL Albumin/Globulin Ratio 0.8 L (1.0-2.1) Hep Bs Antigen (NEGATIVE) Hep Bs Antibody (NEGATIVE) Hep B Core IgM Ab (NEGATIVE) Hepatitis C Antibody (NEGATIVE) 07/21/17 07/20/17 07/20/17 Range/Units 05:12 23:41 23:09 WBC (4.8-10.8) K/uL RBC (4.40-5.90) Mil/uL Hgb (12.0-18.0) g/dL Hct (35.0-51.0) % MCV (80.0-94.0) fL MCH (27.0-31.0) pg MCHC (33.0-37.0) g/dL RDW (11.5-14.5) % Plt Count (130-400) K/uL MPV (7.2-11.7) fL Neut % (Auto) (50.0-75.0) % Lymph % (Auto) (20.0-40.0) % [place] % (Auto) (0.0-10.0) % Eos % (Auto) (0.0-4.0) % Baso % (Auto) (0.0-2.0) % Neut # (1.8-7.0) K/uL Lymph # (1.0-4.3) K/uL [place] # (0.0-0.8) K/uL Eos # (0.0-0.7) K/uL Baso # (0.0-0.2) K/uL Differential Comment Puncture Site Rr pCO2 28 L (35-45) mm/Hg pO2 128 H (80-100) mm/Hg HCO3 23.8 (21-28) mmol/L ABG pH 7.49 H (7.35-7.45) ABG Total CO2 22.2 (22-28) mmol/L ABG O2 Saturation 99.9 H (95-98) % ABG Base Excess -1.5 (-2.0-3.0) mmol/L ABG Hemoglobin 8.6 L (11.7-17.4) g/dL ABG Carboxyhemoglobin 1.8 H (0.5-1.5) % POC ABG HHb (Measured) 0.1 (0.0-5.0) % ABG Methemoglobin 1.3 (0.0-3.0) % Nj Test Pos A-a O2 Difference 407.0 mm/Hg Respiratory Index 3.2 Hgb O2 Saturation 96.8 (95.0-98.0) % Vent Mode Prvc Mechanical Rate 16 FiO2 80.0 % Tidal Volume 500 PEEP 5 Sodium (132-148) mmol/L Potassium (3.6-5.2) mmol/L Chloride (98-107) mmol/L Carbon Dioxide (22-30) mmol/L Anion Gap (10-20) BUN (9-20) mg/dL Creatinine (0.8-1.5) mg/dL Est GFR ( Amer) Est GFR (Non-Af Amer) POC Glucose (mg/dL) 123 H (65-110) mg/dL Random Glucose (75-110) mg/dL Calcium (8.6-10.4) mg/dl Phosphorus (2.5-4.5) mg/dL Magnesium (1.6-2.3) mg/dL Total Bilirubin (0.2-1.3) mg/dL AST (17-59) U/L ALT (21-72) U/L Alkaline Phosphatase (38-126) U/L Troponin I 0.8660 H* (0.00-0.120) ng/mL Total Protein (6.3-8.3) g/dL Albumin (3.5-5.0) g/dL Globulin (2.2-3.9) gm/dL Albumin/Globulin Ratio (1.0-2.1) Hep Bs Antigen (NEGATIVE) Hep Bs Antibody (NEGATIVE) Hep B Core IgM Ab (NEGATIVE) Hepatitis C Antibody (NEGATIVE) 07/20/17 07/20/17 07/20/17 Range/Units 17:51 16:30 15:43 WBC (4.8-10.8) K/uL RBC (4.40-5.90) Mil/uL Hgb (12.0-18.0) g/dL Hct (35.0-51.0) % MCV (80.0-94.0) fL MCH (27.0-31.0) pg MCHC (33.0-37.0) g/dL RDW (11.5-14.5) % Plt Count (130-400) K/uL MPV (7.2-11.7) fL Neut % (Auto) (50.0-75.0) % Lymph % (Auto) (20.0-40.0) % [place] % (Auto) (0.0-10.0) % Eos % (Auto) (0.0-4.0) % Baso % (Auto) (0.0-2.0) % Neut # (1.8-7.0) K/uL Lymph # (1.0-4.3) K/uL [place] # (0.0-0.8) K/uL Eos # (0.0-0.7) K/uL Baso # (0.0-0.2) K/uL Differential Comment Puncture Site Rba pCO2 33 L (35-45) mm/Hg pO2 116 H (80-100) mm/Hg HCO3 16.1 L (21-28) mmol/L ABG pH 7.26 L (7.35-7.45) ABG Total CO2 15.8 L (22-28) mmol/L ABG O2 Saturation 99.0 H (95-98) % ABG Base Excess -11.3 L (-2.0-3.0) mmol/L ABG Hemoglobin 9.4 L (11.7-17.4) g/dL ABG Carboxyhemoglobin 1.2 (0.5-1.5) % POC ABG HHb (Measured) 1.0 (0.0-5.0) % ABG Methemoglobin 1.0 (0.0-3.0) % Nj Test Pos A-a O2 Difference 556.0 mm/Hg Respiratory Index 4.8 Hgb O2 Saturation 96.9 (95.0-98.0) % Vent Mode Prvc Mechanical Rate 16 FiO2 100.0 % Tidal Volume 500 PEEP 5 Sodium (132-148) mmol/L Potassium (3.6-5.2) mmol/L Chloride (98-107) mmol/L Carbon Dioxide (22-30) mmol/L Anion Gap (10-20) BUN (9-20) mg/dL Creatinine (0.8-1.5) mg/dL Est GFR ( Amer) Est GFR (Non-Af Amer) POC Glucose (mg/dL) 302 H 266 H (65-110) mg/dL Random Glucose (75-110) mg/dL Calcium (8.6-10.4) mg/dl Phosphorus (2.5-4.5) mg/dL Magnesium (1.6-2.3) mg/dL Total Bilirubin (0.2-1.3) mg/dL AST (17-59) U/L ALT (21-72) U/L Alkaline Phosphatase (38-126) U/L Troponin I (0.00-0.120) ng/mL Total Protein (6.3-8.3) g/dL Albumin (3.5-5.0) g/dL Globulin (2.2-3.9) gm/dL Albumin/Globulin Ratio (1.0-2.1) Hep Bs Antigen (NEGATIVE) Hep Bs Antibody (NEGATIVE) Hep B Core IgM Ab (NEGATIVE) Hepatitis C Antibody (NEGATIVE) 07/20/17 07/20/17 07/20/17 Range/Units 11:40 07:32 07:11 WBC (4.8-10.8) K/uL RBC (4.40-5.90) Mil/uL Hgb (12.0-18.0) g/dL Hct (35.0-51.0) % MCV (80.0-94.0) fL MCH (27.0-31.0) pg MCHC (33.0-37.0) g/dL RDW (11.5-14.5) % Plt Count (130-400) K/uL MPV (7.2-11.7) fL Neut % (Auto) (50.0-75.0) % Lymph % (Auto) (20.0-40.0) % [place] % (Auto) (0.0-10.0) % Eos % (Auto) (0.0-4.0) % Baso % (Auto) (0.0-2.0) % Neut # (1.8-7.0) K/uL Lymph # (1.0-4.3) K/uL [place] # (0.0-0.8) K/uL Eos # (0.0-0.7) K/uL Baso # (0.0-0.2) K/uL Differential Comment Puncture Site pCO2 (35-45) mm/Hg pO2 (80-100) mm/Hg HCO3 (21-28) mmol/L ABG pH (7.35-7.45) ABG Total CO2 (22-28) mmol/L ABG O2 Saturation (95-98) % ABG Base Excess (-2.0-3.0) mmol/L ABG Hemoglobin (11.7-17.4) g/dL ABG Carboxyhemoglobin (0.5-1.5) % POC ABG HHb (Measured) (0.0-5.0) % ABG Methemoglobin (0.0-3.0) % Nj Test A-a O2 Difference mm/Hg Respiratory Index Hgb O2 Saturation (95.0-98.0) % Vent Mode Mechanical Rate FiO2 % Tidal Volume PEEP Sodium (132-148) mmol/L Potassium (3.6-5.2) mmol/L Chloride (98-107) mmol/L Carbon Dioxide (22-30) mmol/L Anion Gap (10-20) BUN (9-20) mg/dL Creatinine (0.8-1.5) mg/dL Est GFR ( Amer) Est GFR (Non-Af Amer) POC Glucose (mg/dL) 211 H 222 H (65-110) mg/dL Random Glucose (75-110) mg/dL Calcium (8.6-10.4) mg/dl Phosphorus 9.5 H (2.5-4.5) mg/dL Magnesium 2.3 (1.6-2.3) mg/dL Total Bilirubin (0.2-1.3) mg/dL AST (17-59) U/L ALT (21-72) U/L Alkaline Phosphatase (38-126) U/L Troponin I (0.00-0.120) ng/mL Total Protein (6.3-8.3) g/dL Albumin (3.5-5.0) g/dL Globulin (2.2-3.9) gm/dL Albumin/Globulin Ratio (1.0-2.1) Hep Bs Antigen (NEGATIVE) Hep Bs Antibody (NEGATIVE) Hep B Core IgM Ab (NEGATIVE) Hepatitis C Antibody (NEGATIVE) 07/20/17 07/19/17 07/19/17 Range/Units 06:50 17:46 17:46 WBC (4.8-10.8) K/uL RBC (4.40-5.90) Mil/uL Hgb (12.0-18.0) g/dL Hct (35.0-51.0) % MCV (80.0-94.0) fL MCH (27.0-31.0) pg MCHC (33.0-37.0) g/dL RDW (11.5-14.5) % Plt Count (130-400) K/uL MPV (7.2-11.7) fL Neut % (Auto) (50.0-75.0) % Lymph % (Auto) (20.0-40.0) % [place] % (Auto) (0.0-10.0) % Eos % (Auto) (0.0-4.0) % Baso % (Auto) (0.0-2.0) % Neut # (1.8-7.0) K/uL Lymph # (1.0-4.3) K/uL [place] # (0.0-0.8) K/uL Eos # (0.0-0.7) K/uL Baso # (0.0-0.2) K/uL Differential Comment Puncture Site pCO2 (35-45) mm/Hg pO2 (80-100) mm/Hg HCO3 (21-28) mmol/L ABG pH (7.35-7.45) ABG Total CO2 (22-28) mmol/L ABG O2 Saturation (95-98) % ABG Base Excess (-2.0-3.0) mmol/L ABG Hemoglobin (11.7-17.4) g/dL ABG Carboxyhemoglobin (0.5-1.5) % POC ABG HHb (Measured) (0.0-5.0) % ABG Methemoglobin (0.0-3.0) % Nj Test A-a O2 Difference mm/Hg Respiratory Index Hgb O2 Saturation (95.0-98.0) % Vent Mode Mechanical Rate FiO2 % Tidal Volume PEEP Sodium (132-148) mmol/L Potassium (3.6-5.2) mmol/L Chloride (98-107) mmol/L Carbon Dioxide (22-30) mmol/L Anion Gap (10-20) BUN (9-20) mg/dL Creatinine (0.8-1.5) mg/dL Est GFR ( Amer) Est GFR (Non-Af Amer) POC Glucose (mg/dL) (65-110) mg/dL Random Glucose (75-110) mg/dL Calcium (8.6-10.4) mg/dl Phosphorus (2.5-4.5) mg/dL Magnesium (1.6-2.3) mg/dL Total Bilirubin (0.2-1.3) mg/dL AST (17-59) U/L ALT (21-72) U/L Alkaline Phosphatase (38-126) U/L Troponin I (0.00-0.120) ng/mL Total Protein (6.3-8.3) g/dL Albumin (3.5-5.0) g/dL Globulin (2.2-3.9) gm/dL Albumin/Globulin Ratio (1.0-2.1) Hep Bs Antigen Negative (NEGATIVE) Hep Bs Antibody Negative (NEGATIVE) Hep B Core IgM Ab Negative (NEGATIVE) Hepatitis C Antibody Negative (NEGATIVE) Laboratory Results - last 24 hr 07/19/17 07/19/17 07/20/17 17:46 17:46 06:50 WBC RBC Hgb Hct MCV MCH MCHC RDW Plt Count MPV Neut % (Auto) Lymph % (Auto) [place] % (Auto) Eos % (Auto) Baso % (Auto) Neut # Lymph # [place] # Eos # Baso # Differential Comment Puncture Site pCO2 pO2 HCO3 ABG pH ABG Total CO2 ABG O2 Saturation ABG Base Excess ABG Hemoglobin ABG Carboxyhemoglobin POC ABG HHb (Measured) ABG Methemoglobin Nj Test A-a O2 Difference Respiratory Index Hgb O2 Saturation Vent Mode Mechanical Rate FiO2 Tidal Volume PEEP Sodium Potassium Chloride Carbon Dioxide Anion Gap BUN Creatinine Est GFR ( Amer) Est GFR (Non-Af Amer) POC Glucose (mg/dL) Random Glucose Calcium Phosphorus Magnesium Total Bilirubin AST ALT Alkaline Phosphatase Troponin I Total Protein Albumin Globulin Albumin/Globulin Ratio Hep Bs Antigen Negative Hep Bs Antibody Negative Hep B Core IgM Ab Negative Hepatitis C Antibody Negative 07/20/17 07/20/17 07/20/17 07:11 07:32 11:40 WBC RBC Hgb Hct MCV MCH MCHC RDW Plt Count MPV Neut % (Auto) Lymph % (Auto) [place] % (Auto) Eos % (Auto) Baso % (Auto) Neut # Lymph # [place] # Eos # Baso # Differential Comment Puncture Site pCO2 pO2 HCO3 ABG pH ABG Total CO2 ABG O2 Saturation ABG Base Excess ABG Hemoglobin ABG Carboxyhemoglobin POC ABG HHb (Measured) ABG Methemoglobin Nj Test A-a O2 Difference Respiratory Index Hgb O2 Saturation Vent Mode Mechanical Rate FiO2 Tidal Volume PEEP Sodium Potassium Chloride Carbon Dioxide Anion Gap BUN Creatinine Est GFR ( Amer) Est GFR (Non-Af Amer) POC Glucose (mg/dL) 222 H 211 H Random Glucose Calcium Phosphorus 9.5 H Magnesium 2.3 Total Bilirubin AST ALT Alkaline Phosphatase Troponin I Total Protein Albumin Globulin Albumin/Globulin Ratio Hep Bs Antigen Hep Bs Antibody Hep B Core IgM Ab Hepatitis C Antibody 07/20/17 07/20/17 07/20/17 15:43 16:30 17:51 WBC RBC Hgb Hct MCV MCH MCHC RDW Plt Count MPV Neut % (Auto) Lymph % (Auto) [place] % (Auto) Eos % (Auto) Baso % (Auto) Neut # Lymph # [place] # Eos # Baso # Differential Comment Puncture Site Rba pCO2 33 L pO2 116 H HCO3 16.1 L ABG pH 7.26 L ABG Total CO2 15.8 L ABG O2 Saturation 99.0 H ABG Base Excess -11.3 L ABG Hemoglobin 9.4 L ABG Carboxyhemoglobin 1.2 POC ABG HHb (Measured) 1.0 ABG Methemoglobin 1.0 Nj Test Pos A-a O2 Difference 556.0 Respiratory Index 4.8 Hgb O2 Saturation 96.9 Vent Mode Prvc Mechanical Rate 16 FiO2 100.0 Tidal Volume 500 PEEP 5 Sodium Potassium Chloride Carbon Dioxide Anion Gap BUN Creatinine Est GFR ( Amer) Est GFR (Non-Af Amer) POC Glucose (mg/dL) 266 H 302 H Random Glucose Calcium Phosphorus Magnesium Total Bilirubin AST ALT Alkaline Phosphatase Troponin I Total Protein Albumin Globulin Albumin/Globulin Ratio Hep Bs Antigen Hep Bs Antibody Hep B Core IgM Ab Hepatitis C Antibody 07/20/17 07/20/17 07/21/17 23:09 23:41 05:12 WBC RBC Hgb Hct MCV MCH MCHC RDW Plt Count MPV Neut % (Auto) Lymph % (Auto) [place] % (Auto) Eos % (Auto) Baso % (Auto) Neut # Lymph # [place] # Eos # Baso # Differential Comment Puncture Site Rr pCO2 28 L pO2 128 H HCO3 23.8 ABG pH 7.49 H ABG Total CO2 22.2 ABG O2 Saturation 99.9 H ABG Base Excess -1.5 ABG Hemoglobin 8.6 L ABG Carboxyhemoglobin 1.8 H POC ABG HHb (Measured) 0.1 ABG Methemoglobin 1.3 Nj Test Pos A-a O2 Difference 407.0 Respiratory Index 3.2 Hgb O2 Saturation 96.8 Vent Mode Prvc Mechanical Rate 16 FiO2 80.0 Tidal Volume 500 PEEP 5 Sodium Potassium Chloride Carbon Dioxide Anion Gap BUN Creatinine Est GFR ( Amer) Est GFR (Non-Af Amer) POC Glucose (mg/dL) 123 H Random Glucose Calcium Phosphorus Magnesium Total Bilirubin AST ALT Alkaline Phosphatase Troponin I 0.8660 H* Total Protein Albumin Globulin Albumin/Globulin Ratio Hep Bs Antigen Hep Bs Antibody Hep B Core IgM Ab Hepatitis C Antibody 07/21/17 07/21/17 07/21/17 06:13 06:54 06:54 WBC 13.0 H RBC 3.13 L Hgb 8.6 L Hct 25.7 L MCV 82.3 MCH 27.6 MCHC 33.5 RDW 15.3 H Plt Count 182 MPV 8.3 Neut % (Auto) 79.4 H Lymph % (Auto) 8.8 L [place] % (Auto) 10.5 H Eos % (Auto) 0.9 Baso % (Auto) 0.4 Neut # 10.3 H Lymph # 1.1 [place] # 1.4 H Eos # 0.1 Baso # 0.1 Differential Comment Puncture Site pCO2 pO2 HCO3 ABG pH ABG Total CO2 ABG O2 Saturation ABG Base Excess ABG Hemoglobin ABG Carboxyhemoglobin POC ABG HHb (Measured) ABG Methemoglobin Nj Test A-a O2 Difference Respiratory Index Hgb O2 Saturation Vent Mode Mechanical Rate FiO2 Tidal Volume PEEP Sodium 127 L Potassium 3.5 L Chloride 93 L Carbon Dioxide 21 L Anion Gap 17 BUN 72 H Creatinine 4.1 H Est GFR ( Amer) 17 Est GFR (Non-Af Amer) 14 POC Glucose (mg/dL) 219 H Random Glucose 174 H Calcium 7.0 L Phosphorus 7.6 H Magnesium 2.2 Total Bilirubin 0.6 AST 37 ALT 42 Alkaline Phosphatase 89 Troponin I Total Protein 5.6 L Albumin 2.5 L Globulin 3.0 Albumin/Globulin Ratio 0.8 L Hep Bs Antigen Hep Bs Antibody Hep B Core IgM Ab Hepatitis C Antibody EKG/Cardiology Studies: Cardiology / EKG Studies 07/20/17 08:00 EKG [ELECTROCARDIOGRAM] Routine Comment: Mode Of Transportation: BED Reason For Exam: on amiodarone drip Isolation: Contact Fingerstick Blood Sugar Results: 219 Review of Systems - Review of Systems Systems not reviewed;Unavailable: Intubated Critical Care Progress Note - Nutrition Nutrition: Nutrition Category Date Time Status NPO Diet [DIET] Diets 07/20/17 Dinner Active Assessment/Plan - Assessment and Plan (Free Text) Assessment: 82 M w/ PMHx of Diabetes, HLD, HTN, Hypothyroidism, CKD Stage 3, Alzheimer's Dementia, 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 Patient POD#1 s/p left internal jugular vein permacath insertion, intubated s/p cardiac arrest. Neuro: hx Alzheimer's dementia -Aricept 10 mg PO HS -CT head (07/13): no acute intracranial hemorrhage, or suspicious mass effect -Propofol for sedation secondary to intubation Cardio: HTN, hx CVA -Cardiology consulted (Dr. Chau), help appreciated -Home blood pressure medications held because blood pressure low: Amlodipine 10 mg po daily, Metoprolol Succinate 100 mg po daily, Losartan 100 mg PO daily -Plavix 75mg po daily -Crestor 10 mg po HS -Lipitor 80 mg po HS -Gemfibrozil 600 mg po BID -Metoprolol held due to hypotension -Levophed drip -Negative troponins -TSH and free T4 WNL - echo report from 07/13/17 : left ventricular ejection fraction is within the normal range (60%). moderate concentric left ventricular hypertrophy. transmitral doppler flow pattern is gradeI- abnormal relaxation pattern. Mitral annular calcification is mild. Mitral regurgitation is trace. -Patient went into a fib overnight, started on cardizem drip and switched to 120mg cardizem po daily -Troponin I (07/20-07/21): .[phone], .4900 -as per Dr. Chau probable Troponin elevation due to coronary hypoperfusion from shock, likely a septic etiology, not a primary event. -Code Blue (07/20/17) called at 15:37, two epis, norepi drip started, 1 bicarb, and 1 calcium gluconate given before ROSC at 15:39 Pulm: bilateral pneumonia, intubated secondary to code blue -CT Abdomen/Pelvis 07/13/17 showed bibasilar lingular and right middle lobe mild nonspecific infiltrates consistent with atelectasis/pneumonia -CXR 07/21/17: confluent opacification of the left mid to lower lung zone as well as right lung base. Linear lucency along the lateral margin of the left lower hemithorax which may represent Mach artifact. bilateral hilar prominence. small left pleural effusion. biapical pleural thickening. cardiomegaly. -Duonebs q6h -negative influenza A/B, negative urine Legionella -mycoplasma IgM 81, IgG 1.07 GI: abdominal pain likely secondary to gas/ fluid around liver - CT C/A/P showed free air under the right hemidiaphragm and extrahepatic CBD pneumobilia - Surgery consulted (Dr. Boyce) - help appreciated -NPO -NGT in place -CT abdomen and pelvis with IV and PO contrast- showed gas and fluid around left lobe liver and along inferior vena cava that is unchanged, no evidence of extravasation of oral contrast from stomach or duodenem. -Abdominal u/s (07/15): limited sonographic evaluation of the liver for purposes of drainage and did not show the subdiaphragmatic fluid collection see in previous CT -Abdominal xray (07/16): colonic contrast, no mechanical obstruction suggested. -no intervention by IR at this time -constipation, dulcolax 10 mg once ordered : hx overactive bladder -Festerodine 8 mg PO 1x/day -Enlarged Prostate on CT Abdomen/Pelvis -PSA: 23.3 Nephro: CKD stage 3, possible acute on chronic, POD 1 s/p left internal jugular vein permacath insertion - BUN 72, Cr 4.1, post dialysis yesterday - 2+ urine protein and 2+ urine glucose on U/A 07/14/17 - Nephrology consulted (Dr. Oconnell) -IV lasix 20 mg BID -Phoslo TID -Nepro feeds with no free water as per Dr. Andrew -dialysis tomorrow Endo: hx of diabetes, hypothyroidism - ISS -accuchecks -Synthroid 50 mcg po daily -TSH and T4 WNL ID: Sepsis secondary to likely biliary or hepatic perforation from recent ERCP - Code sepsis called 07/14 - HCAP pneumonia suspected given recent hospitalization and antibiotic use for buttock abscess - Infectious Disease consulted (Dr. Langford), help appreciated -urine cultures: no growth -Negative MRSA -blood culture: gram positive cocci, Enterococcus Faecium -Flagyl 250mg q8h -repeat blood culture (07/20) : negative -- continue Tigecycline 50mg q12h PPX: DVT: SCD's, Heparin 5000 u sc q12h GI: Protonix 40 mg IV daily florastor <Mina Kowalski - Last Filed: 07/21/17 18:58> CCU Objective - Vital Signs / Intake & Output Vital Signs (Last 4 hours): Vital Signs Temp Pulse Resp BP Pulse Ox 07/21/17 16:30 81 14 107/50 L 100 07/21/17 16:00 99.1 F 83 20 97/45 L 100 07/21/17 15:31 83 16 94/44 L 100 07/21/17 15:30 82 17 100 07/21/17 15:00 80 16 107/46 L 100 Intake and Output (Last 8hrs): Intake & Output 07/21/17 07/21/17 07/21/17 06:59 14:59 22:59 Intake Total 648.4 632.5 80 Output Total 220 445 150 Balance 428.4 187.5 -70 Weight 150 lb Intake: IV 314 Intake, IV Amount 334.4 412.5 60 Right Distal Port 8 150 Internal Jugular Right Medial Port 176.4 262.5 60 Internal Jugular Right Proximal Port 150 Internal Jugular Oral 220 Tube Feeding 20 Output: Urine 220 445 150 Urethral ([place]) 220 445 150 - Medications Active Medications: Active Medications Generic Name Dose Route Start Last Admin Trade Name Freq PRN Reason Stop Dose Admin Albuterol/Ipratropium 3 ml 07/20/17 20:00 07/21/17 13:11 Duoneb 3 Mg/0.5 Mg (3 Ml) Ud INH 3 ml RQ6 DARINEL Administration Ascorbic Acid 250 mg 07/14/17 10:00 07/21/17 10:09 Vitamin C 250 Mg Tab PO 250 mg DAILY DARINEL Administration Benzocaine/Menthol 1 love 07/14/17 04:24 07/17/17 20:25 Cepacol Sore Throat MT 1 love Q2 PRN Administration Sore Throat Calcium Acetate 1,334 mg 07/20/17 11:16 07/21/17 18:10 Phoslo PO 1,334 mg TID DARINEL Administration Clopidogrel Bisulfate 75 mg 07/14/17 10:00 07/21/17 10:06 Plavix PO 75 mg DAILY DARINEL Administration Cyproheptadine HCl 4 mg 07/14/17 10:00 07/21/17 10:09 Periactin PO 4 mg BID DARINEL Administration Donepezil HCl 10 mg 07/13/17 22:00 07/20/17 21:22 Aricept PO 10 mg HS DARINEL Administration Ferrous Sulfate 325 mg 07/13/17 18:45 07/21/17 18:13 Feosol PO 325 mg Q12H DARINEL Administration Gemfibrozil 600 mg 07/14/17 10:00 07/21/17 18:11 Lopid PO 600 mg BID DARINEL Administration Heparin Sodium (Porcine) 5,000 units 07/21/17 22:00 Heparin SC Q12 [facility] Home Med 8 mg 07/14/17 10:00 Fesoterodine Fumarate [Toviaz] PO DAILY DARINEL Hydromorphone HCl 0.5 mg 07/21/17 00:18 Dilaudid IVP Q6H PRN Pain, severe (8-10) Tigecycline 50 mg/ Dextrose 100 mls @ 100 mls/hr 07/18/17 01:00 07/21/17 12: 33 IVPB 100 mls/hr Q12H DARINEL Administration Metronidazole 250 mg/ 50 mls @ 100 mls/hr 07/18/17 22:15 07/21/17 13:05 Miscellaneous IVPB 100 mls/hr Q8 DARINEL Administration Norepinephrine Bitartrate 4 mg 254 mls @ 15.24 mls/hr 07/20/17 15:42 09:58 / Sodium Chloride IV 10 mcg/min .[id number] PRN 38.1 mls/hr TITRATE PER MD ORDER Administration Protocol 4 MCG/MIN Propofol 1,000 mg in 100 mls @ 1.943 mls/hr 07/20/17 16:06 07/21/17 01:00 Diprivan IV 0 mcg/kg/min .Q24H PRN 0 mls/hr TITRATE PER MD ORDER Titration Protocol 5 MCG/KG/MIN Insulin Human Regular 0 unit 07/21/17 00:00 07/21/17 18:15 Novolin R SC 2 unit Q6 DARINEL Administration Protocol Latanoprost 0 ml 07/13/17 22:00 07/20/17 22:00 Xalatan Opht OU 2.5 ml HS DARINEL Administration Levothyroxine Sodium 50 mcg 07/14/17 06:30 07/21/17 06:01 Synthroid PO 50 mcg DAILY@0630 DARINEL Administration Lorazepam 2 mg 07/20/17 16:04 Ativan IVP Q4 PRN Anxiety Meclizine HCl 12.5 mg 07/14/17 10:00 07/21/17 18:11 Antivert PO 12.5 mg TID DRAINEL Administration Metoprolol Succinate 100 mg 07/13/17 21:59 07/14/17 13:41 Toprol Xl PO 100 mg DAILY DARINEL Administration Ondansetron HCl 4 mg 07/14/17 00:38 Zofran Inj IVP Q6 PRN Nausea/Vomiting Pantoprazole Sodium 40 mg 07/14/17 10:00 07/21/17 10:08 Protonix Inj IVP 40 mg DAILY DARINEL Administration Rosuvastatin Calcium 10 mg 07/13/17 22:00 07/20/17 21:22 Crestor PO 10 mg HS DARINEL Administration Saccharomyces Boulardii 250 mg 07/14/17 10:00 07/21/17 18:10 Florastor PO 250 mg BID DARINEL Administration - Patient Studies Lab Studies: Microbiology Studies 07/20/17 03:55 Blood Culture - Preliminary Blood-Venous NO GROWTH AFTER 24 HOURS 07/20/17 03:55 Blood Culture - Preliminary Blood-Venous NO GROWTH AFTER 24 HOURS 07/17/17 08:00 Blood Culture - Preliminary Blood-Venous NO GROWTH AFTER 3 DAYS Lab Studies 07/21/17 07/21/17 07/21/17 Range/Units 17:42 12:48 11:37 WBC (4.8-10.8) K/uL RBC (4.40-5.90) Mil/uL Hgb (12.0-18.0) g/dL Hct (35.0-51.0) % MCV (80.0-94.0) fL MCH (27.0-31.0) pg MCHC (33.0-37.0) g/dL RDW (11.5-14.5) % Plt Count (130-400) K/uL MPV (7.2-11.7) fL Neut % (Auto) (50.0-75.0) % Lymph % (Auto) (20.0-40.0) % [place] % (Auto) (0.0-10.0) % Eos % (Auto) (0.0-4.0) % Baso % (Auto) (0.0-2.0) % Neut # (1.8-7.0) K/uL Lymph # (1.0-4.3) K/uL [place] # (0.0-0.8) K/uL Eos # (0.0-0.7) K/uL Baso # (0.0-0.2) K/uL Neutrophils % (Manual) (50-75) % Band Neutrophils % (0-2) % Lymphocytes % (Manual) (20-40) % Monocytes % (Manual) (0-10) % Platelet Estimate (NORMAL) Polychromasia Hypochromasia (manual) Anisocytosis (manual) Puncture Site pCO2 (35-45) mm/Hg pO2 (80-100) mm/Hg HCO3 (21-28) mmol/L ABG pH (7.35-7.45) ABG Total CO2 (22-28) mmol/L ABG O2 Saturation (95-98) % ABG Base Excess (-2.0-3.0) mmol/L ABG Hemoglobin (11.7-17.4) g/dL ABG Carboxyhemoglobin (0.5-1.5) % POC ABG HHb (Measured) (0.0-5.0) % ABG Methemoglobin (0.0-3.0) % Nj Test A-a O2 Difference mm/Hg Respiratory Index Hgb O2 Saturation (95.0-98.0) % Vent Mode Mechanical Rate FiO2 % Tidal Volume PEEP Sodium (132-148) mmol/L Potassium (3.6-5.2) mmol/L Chloride (98-107) mmol/L Carbon Dioxide (22-30) mmol/L Anion Gap (10-20) BUN (9-20) mg/dL Creatinine (0.8-1.5) mg/dL Est GFR ( Amer) Est GFR (Non-Af Amer) POC Glucose (mg/dL) 249 H 250 H (65-110) mg/dL Random Glucose (75-110) mg/dL Calcium (8.6-10.4) mg/dl Phosphorus (2.5-4.5) mg/dL Magnesium (1.6-2.3) mg/dL Total Bilirubin (0.2-1.3) mg/dL AST (17-59) U/L ALT (21-72) U/L Alkaline Phosphatase (38-126) U/L Total Creatine Kinase 567 H (55-170) U/L CK-MB (Mass) 5.57 H (0.0-3.38) ng/mL Troponin I (0.00-0.120) ng/mL Troponin I, Quant 0.4900 H* (0.00-0.120) ng/mL Total Protein (6.3-8.3) g/dL Albumin (3.5-5.0) g/dL Globulin (2.2-3.9) gm/dL Albumin/Globulin Ratio (1.0-2.1) 07/21/17 07/21/17 07/21/17 Range/Units 06:54 06:54 06:13 WBC 13.0 H (4.8-10.8) K/uL RBC 3.13 L (4.40-5.90) Mil/uL Hgb 8.6 L (12.0-18.0) g/dL Hct 25.7 L (35.0-51.0) % MCV 82.3 (80.0-94.0) fL MCH 27.6 (27.0-31.0) pg MCHC 33.5 (33.0-37.0) g/dL RDW 15.3 H (11.5-14.5) % Plt Count 182 (130-400) K/uL MPV 8.3 (7.2-11.7) fL Neut % (Auto) 79.4 H (50.0-75.0) % Lymph % (Auto) 8.8 L (20.0-40.0) % [place] % (Auto) 10.5 H (0.0-10.0) % Eos % (Auto) 0.9 (0.0-4.0) % Baso % (Auto) 0.4 (0.0-2.0) % Neut # 10.3 H (1.8-7.0) K/uL Lymph # 1.1 (1.0-4.3) K/uL [place] # 1.4 H (0.0-0.8) K/uL Eos # 0.1 (0.0-0.7) K/uL Baso # 0.1 (0.0-0.2) K/uL Neutrophils % (Manual) 85 H (50-75) % Band Neutrophils % 2 (0-2) % Lymphocytes % (Manual) 4 L (20-40) % Monocytes % (Manual) 9 (0-10) % Platelet Estimate Normal (NORMAL) Polychromasia Slight Hypochromasia (manual) Slight Anisocytosis (manual) Slight Puncture Site pCO2 (35-45) mm/Hg pO2 (80-100) mm/Hg HCO3 (21-28) mmol/L ABG pH (7.35-7.45) ABG Total CO2 (22-28) mmol/L ABG O2 Saturation (95-98) % ABG Base Excess (-2.0-3.0) mmol/L ABG Hemoglobin (11.7-17.4) g/dL ABG Carboxyhemoglobin (0.5-1.5) % POC ABG HHb (Measured) (0.0-5.0) % ABG Methemoglobin (0.0-3.0) % Nj Test A-a O2 Difference mm/Hg Respiratory Index Hgb O2 Saturation (95.0-98.0) % Vent Mode Mechanical Rate FiO2 % Tidal Volume PEEP Sodium 127 L (132-148) mmol/L Potassium 3.5 L (3.6-5.2) mmol/L Chloride 93 L (98-107) mmol/L Carbon Dioxide 21 L (22-30) mmol/L Anion Gap 17 (10-20) BUN 72 H (9-20) mg/dL Creatinine 4.1 H (0.8-1.5) mg/dL Est GFR ( Amer) 17 Est GFR (Non-Af Amer) 14 POC Glucose (mg/dL) 219 H (65-110) mg/dL Random Glucose 174 H (75-110) mg/dL Calcium 7.0 L (8.6-10.4) mg/dl Phosphorus 7.6 H (2.5-4.5) mg/dL Magnesium 2.2 (1.6-2.3) mg/dL Total Bilirubin 0.6 (0.2-1.3) mg/dL AST 37 (17-59) U/L ALT 42 (21-72) U/L Alkaline Phosphatase 89 (38-126) U/L Total Creatine Kinase (55-170) U/L CK-MB (Mass) (0.0-3.38) ng/mL Troponin I 0.8280 H* (0.00-0.120) ng/mL Troponin I, Quant (0.00-0.120) ng/mL Total Protein 5.6 L (6.3-8.3) g/dL Albumin 2.5 L (3.5-5.0) g/dL Globulin 3.0 (2.2-3.9) gm/dL Albumin/Globulin Ratio 0.8 L (1.0-2.1) 07/21/17 07/20/17 07/20/17 Range/Units 05:12 23:41 23:09 WBC (4.8-10.8) K/uL RBC (4.40-5.90) Mil/uL Hgb (12.0-18.0) g/dL Hct (35.0-51.0) % MCV (80.0-94.0) fL MCH (27.0-31.0) pg MCHC (33.0-37.0) g/dL RDW (11.5-14.5) % Plt Count (130-400) K/uL MPV (7.2-11.7) fL Neut % (Auto) (50.0-75.0) % Lymph % (Auto) (20.0-40.0) % [place] % (Auto) (0.0-10.0) % Eos % (Auto) (0.0-4.0) % Baso % (Auto) (0.0-2.0) % Neut # (1.8-7.0) K/uL Lymph # (1.0-4.3) K/uL [place] # (0.0-0.8) K/uL Eos # (0.0-0.7) K/uL Baso # (0.0-0.2) K/uL Neutrophils % (Manual) (50-75) % Band Neutrophils % (0-2) % Lymphocytes % (Manual) (20-40) % Monocytes % (Manual) (0-10) % Platelet Estimate (NORMAL) Polychromasia Hypochromasia (manual) Anisocytosis (manual) Puncture Site Rr pCO2 28 L (35-45) mm/Hg pO2 128 H (80-100) mm/Hg HCO3 23.8 (21-28) mmol/L ABG pH 7.49 H (7.35-7.45) ABG Total CO2 22.2 (22-28) mmol/L ABG O2 Saturation 99.9 H (95-98) % ABG Base Excess -1.5 (-2.0-3.0) mmol/L ABG Hemoglobin 8.6 L (11.7-17.4) g/dL ABG Carboxyhemoglobin 1.8 H (0.5-1.5) % POC ABG HHb (Measured) 0.1 (0.0-5.0) % ABG Methemoglobin 1.3 (0.0-3.0) % Nj Test Pos A-a O2 Difference 407.0 mm/Hg Respiratory Index 3.2 Hgb O2 Saturation 96.8 (95.0-98.0) % Vent Mode Prvc Mechanical Rate 16 FiO2 80.0 % Tidal Volume 500 PEEP 5 Sodium (132-148) mmol/L Potassium (3.6-5.2) mmol/L Chloride (98-107) mmol/L Carbon Dioxide (22-30) mmol/L Anion Gap (10-20) BUN (9-20) mg/dL Creatinine (0.8-1.5) mg/dL Est GFR ( Amer) Est GFR (Non-Af Amer) POC Glucose (mg/dL) 123 H (65-110) mg/dL Random Glucose (75-110) mg/dL Calcium (8.6-10.4) mg/dl Phosphorus (2.5-4.5) mg/dL Magnesium (1.6-2.3) mg/dL Total Bilirubin (0.2-1.3) mg/dL AST (17-59) U/L ALT (21-72) U/L Alkaline Phosphatase (38-126) U/L Total Creatine Kinase (55-170) U/L CK-MB (Mass) (0.0-3.38) ng/mL Troponin I 0.8660 H* (0.00-0.120) ng/mL Troponin I, Quant (0.00-0.120) ng/mL Total Protein (6.3-8.3) g/dL Albumin (3.5-5.0) g/dL Globulin (2.2-3.9) gm/dL Albumin/Globulin Ratio (1.0-2.1) Laboratory Results - last 24 hr 07/20/17 07/20/17 07/21/17 23:09 23:41 05:12 WBC RBC Hgb Hct MCV MCH MCHC RDW Plt Count MPV Neut % (Auto) Lymph % (Auto) [place] % (Auto) Eos % (Auto) Baso % (Auto) Neut # Lymph # [place] # Eos # Baso # Neutrophils % (Manual) Band Neutrophils % Lymphocytes % (Manual) Monocytes % (Manual) Platelet Estimate Polychromasia Hypochromasia (manual) Anisocytosis (manual) Puncture Site Rr pCO2 28 L pO2 128 H HCO3 23.8 ABG pH 7.49 H ABG Total CO2 22.2 ABG O2 Saturation 99.9 H ABG Base Excess -1.5 ABG Hemoglobin 8.6 L ABG Carboxyhemoglobin 1.8 H POC ABG HHb (Measured) 0.1 ABG Methemoglobin 1.3 Nj Test Pos A-a O2 Difference 407.0 Respiratory Index 3.2 Hgb O2 Saturation 96.8 Vent Mode Prvc Mechanical Rate 16 FiO2 80.0 Tidal Volume 500 PEEP 5 Sodium Potassium Chloride Carbon Dioxide Anion Gap BUN Creatinine Est GFR ( Amer) Est GFR (Non-Af Amer) POC Glucose (mg/dL) 123 H Random Glucose Calcium Phosphorus Magnesium Total Bilirubin AST ALT Alkaline Phosphatase Total Creatine Kinase CK-MB (Mass) Troponin I 0.8660 H* Troponin I, Quant Total Protein Albumin Globulin Albumin/Globulin Ratio 07/21/17 07/21/17 07/21/17 06:13 06:54 06:54 WBC 13.0 H RBC 3.13 L Hgb 8.6 L Hct 25.7 L MCV 82.3 MCH 27.6 MCHC 33.5 RDW 15.3 H Plt Count 182 MPV 8.3 Neut % (Auto) 79.4 H Lymph % (Auto) 8.8 L [place] % (Auto) 10.5 H Eos % (Auto) 0.9 Baso % (Auto) 0.4 Neut # 10.3 H Lymph # 1.1 [place] # 1.4 H Eos # 0.1 Baso # 0.1 Neutrophils % (Manual) 85 H Band Neutrophils % 2 Lymphocytes % (Manual) 4 L Monocytes % (Manual) 9 Platelet Estimate Normal Polychromasia Slight Hypochromasia (manual) Slight Anisocytosis (manual) Slight Puncture Site pCO2 pO2 HCO3 ABG pH ABG Total CO2 ABG O2 Saturation ABG Base Excess ABG Hemoglobin ABG Carboxyhemoglobin POC ABG HHb (Measured) ABG Methemoglobin Nj Test A-a O2 Difference Respiratory Index Hgb O2 Saturation Vent Mode Mechanical Rate FiO2 Tidal Volume PEEP Sodium 127 L Potassium 3.5 L Chloride 93 L Carbon Dioxide 21 L Anion Gap 17 BUN 72 H Creatinine 4.1 H Est GFR ( Amer) 17 Est GFR (Non-Af Amer) 14 POC Glucose (mg/dL) 219 H Random Glucose 174 H Calcium 7.0 L Phosphorus 7.6 H Magnesium 2.2 Total Bilirubin 0.6 AST 37 ALT 42 Alkaline Phosphatase 89 Total Creatine Kinase CK-MB (Mass) Troponin I 0.8280 H* Troponin I, Quant Total Protein 5.6 L Albumin 2.5 L Globulin 3.0 Albumin/Globulin Ratio 0.8 L 07/21/17 07/21/17 07/21/17 11:37 12:48 17:42 WBC RBC Hgb Hct MCV MCH MCHC RDW Plt Count MPV Neut % (Auto) Lymph % (Auto) [place] % (Auto) Eos % (Auto) Baso % (Auto) Neut # Lymph # [place] # Eos # Baso # Neutrophils % (Manual) Band Neutrophils % Lymphocytes % (Manual) Monocytes % (Manual) Platelet Estimate Polychromasia Hypochromasia (manual) Anisocytosis (manual) Puncture Site pCO2 pO2 HCO3 ABG pH ABG Total CO2 ABG O2 Saturation ABG Base Excess ABG Hemoglobin ABG Carboxyhemoglobin POC ABG HHb (Measured) ABG Methemoglobin Nj Test A-a O2 Difference Respiratory Index Hgb O2 Saturation Vent Mode Mechanical Rate FiO2 Tidal Volume PEEP Sodium Potassium Chloride Carbon Dioxide Anion Gap BUN Creatinine Est GFR ( Amer) Est GFR (Non-Af Amer) POC Glucose (mg/dL) 250 H 249 H Random Glucose Calcium Phosphorus Magnesium Total Bilirubin AST ALT Alkaline Phosphatase Total Creatine Kinase 567 H CK-MB (Mass) 5.57 H Troponin I Troponin I, Quant 0.4900 H* Total Protein Albumin Globulin Albumin/Globulin Ratio Critical Care Progress Note - Nutrition Nutrition: Nutrition Category Date Time Status NPO Diet [DIET] Diets 07/20/17 Dinner Active Attending/Attestation - Attestation I have personally seen and examined this patient.: Yes I have fully participated in the care of the patient.: Yes I have reviewed all pertinent clinical information: Yes Notes (Text): 07/21/17 18:57 Patient seen and examined in the intensive care unit. Case discussed with house staff in the morning rounds. Remains intubated on ventilatory support FiO2 reduced to 70% On Levophed at 10 mics Continue antibiotics Reduced FiO2 as tolerated Continue hemodialysis as tolerated
[2017-07-21 07:55] LABS: TROPONIN I 0.828 ng/mL (0.00-0.120)
--- NOTE | 2017-07-21 08:48 | CP.PCM.PN ---
<Marcelino Ordoñez - Last Filed: 07/21/17 11:54> Subjective - Date & Time of Evaluation Date of Evaluation: 07/21/17 Time of Evaluation: 07:35 - Subjective Subjective: General Surgery Note for Dr. Boyce Patient seen and examined at bedside. He is s/p Left internal jugular permacath insertion POD#1. Patient was reintubated after procedure for Code blue. he is still intubated and on vent support (TV 500, Peep 5, RR 16, FiO2 80%). He is on levophed drip. Patient is awake and alert responding verbal and tactile stimuli. Objective - Vital Signs/Intake and Output Vital Signs (last 24 hours): Temp Pulse Resp BP Pulse Ox 99.5 F 85 16 113/53 L 100 07/21/17 04:00 07/21/17 07:00 07/21/17 07:00 07/21/17 06:42 07/21/17 06:45 Intake and Output: 07/21/17 07/21/17 06:59 18:59 Intake Total 972.2 37.5 Output Total 1140 20 Balance -167.8 17.5 - Medications Medications: Current Medications Albuterol/Ipratropium (Duoneb 3 Mg/0.5 Mg (3 Ml) Ud) 3 ml INH RQ6 [facility] Last Admin: 07/21/17 07:30 Dose: 3 ml Ascorbic Acid (Vitamin C 250 Mg Tab) 250 mg PO DAILY [facility] Last Admin: 07/20/17 10:12 Dose: Not Given Benzocaine/Menthol (Cepacol Sore Throat) 1 love MT Q2 PRN PRN Reason: Sore Throat Last Admin: 07/17/17 20:25 Dose: 1 love Calcium Acetate (Phoslo) 1,334 mg PO TID [facility] Last Admin: 07/20/17 18:00 Dose: Not Given Clopidogrel Bisulfate (Plavix) 75 mg PO DAILY [facility] Cyproheptadine HCl (Periactin) 4 mg PO BID [facility] Last Admin: 07/20/17 19:26 Dose: Not Given Donepezil HCl (Aricept) 10 mg PO HS [facility] Last Admin: 07/20/17 21:22 Dose: 10 mg Ferrous Sulfate (Feosol) 325 mg PO Q12H [facility] Last Admin: 07/21/17 06:01 Dose: 325 mg Gemfibrozil (Lopid) 600 mg PO BID [facility] Last Admin: 07/20/17 18:00 Dose: Not Given Home Med (Fesoterodine Fumarate [Toviaz]) 8 mg PO DAILY [facility] Hydromorphone HCl (Dilaudid) 0.5 mg IVP Q6H PRN PRN Reason: Pain, severe (8-10) Tigecycline 50 mg/ Dextrose 100 mls @ 100 mls/hr IVPB Q12H [facility] Last Admin: 07/21/17 00:39 Dose: 100 mls/hr Metronidazole 250 mg/ (Miscellaneous) 50 mls @ 100 mls/hr IVPB Q8 [facility] Last Admin: 07/21/17 06:00 Dose: 100 mls/hr Norepinephrine Bitartrate 4 mg (/ Sodium Chloride) 254 mls @ 15.24 mls/hr IV .[id number] PRN; Protocol; 4 MCG/MIN PRN Reason: TITRATE PER MD ORDER Last Titration: 07/21/17 03:00 Dose: 10 mcg/min, 38.1 mls/hr Propofol (Diprivan) 1,000 mg in 100 mls @ 1.943 mls/hr IV .Q24H PRN; Protocol; 5 MCG/KG/MIN PRN Reason: TITRATE PER MD ORDER Last Titration: 07/21/17 01:00 Dose: 0 mcg/kg/min, 0 mls/hr Insulin Human Regular (Novolin R) 0 unit SC Q6 [facility]ARINEL PRN Reason: Protocol Last Admin: 07/21/17 06:56 Dose: Not Given Latanoprost (Xalatan Opht) 0 ml OU HS [facility] Last Admin: 07/20/17 22:00 Dose: 2.5 ml Levothyroxine Sodium (Synthroid) 50 mcg PO DAILY@0630 [facility] Last Admin: 07/21/17 06:01 Dose: 50 mcg Lorazepam (Ativan) 2 mg IVP Q4 PRN PRN Reason: Anxiety Meclizine HCl (Antivert) 12.5 mg PO TID [facility] Last Admin: 07/20/17 18:00 Dose: Not Given Metoprolol Succinate (Toprol Xl) 100 mg PO DAILY [facility] Last Admin: 07/14/17 13:41 Dose: 100 mg Ondansetron HCl (Zofran Inj) 4 mg IVP Q6 PRN PRN Reason: Nausea/Vomiting Pantoprazole Sodium (Protonix Inj) 40 mg IVP DAILY [facility] Last Admin: 07/20/17 10:32 Dose: 40 mg Rosuvastatin Calcium (Crestor) 10 mg PO HS [facility] Last Admin: 07/20/17 21:22 Dose: 10 mg Saccharomyces Boulardii (Florastor) 250 mg PO BID [facility] Last Admin: 07/20/17 18:00 Dose: Not Given - Labs Labs: 07/21/17 06:54 07/21/17 06:54 PT 14.3 SECONDS (9.7-12.2) H 07/16/17 04:00 INR 1.3 07/16/17 04:00 APTT 29 SECONDS (21-34) 07/13/17 20:04 - Constitutional Appears: No Acute Distress, Other (intubated) - Head Exam Head Exam: ATRAUMATIC, NORMOCEPHALIC - Eye Exam Eye Exam: EOMI, Normal appearance Pupil Exam: PERRL - ENT Exam ENT Exam: Mucous Membranes Moist Additional comments: et tube in place - Respiratory Exam Additional comments: intubated and on vent support - Cardiovascular Exam Cardiovascular Exam: Tachycardia - GI/Abdominal Exam GI & Abdominal Exam: Soft, Tenderness (mild). absent: Firm, Guarding, Rigid, Rebound - Extremities Exam Extremities Exam: absent: Calf Tenderness - Neurological Exam Neurological Exam: Alert, Awake - Psychiatric Exam Psychiatric exam: Flat Affect - Skin Skin Exam: Dry, Warm Assessment and Plan - Assessment and Plan (Free Text) Plan: 82 M with ESRD and abdominal pain s/p Left IJ permacath insertion POD#1 -Try to wean off pressors and vent -Permacathcan be used for dialysis -Management as per ICU -Discuss with Dr. Austen Ordoñez PGY1 <Manohar Boyce - Last Filed: 07/25/17 19:44> Objective - Vital Signs/Intake and Output Vital Signs (last 24 hours): Temp Pulse Resp BP Pulse Ox 98.6 F 87 22 154/71 H 100 07/25/17 16:00 07/25/17 19:00 07/25/17 19:00 07/25/17 18:28 07/25/17 19:00 Intake and Output: 07/25/17 07/26/17 18:59 06:59 Intake Total 1030 Output Total 235 Balance 795 - Medications Medications: Current Medications Albuterol Sulfate (Albuterol 0.042% Inhal Ruby (1.25mg/3ml) Ud) 1.25 mg INH RQ6 PRN PRN Reason: Wheezing Ascorbic Acid (Vitamin C 250 Mg Tab) 250 mg PO DAILY [facility] Last Admin: 07/25/17 09:12 Dose: 250 mg Benzocaine/Menthol (Cepacol Sore Throat) 1 love MT Q2 PRN PRN Reason: Sore Throat Last Admin: 07/25/17 09:12 Dose: 1 love Calcium Acetate (Phoslo) 1,334 mg PO TID [facility] Last Admin: 07/25/17 18:12 Dose: 1,334 mg Clopidogrel Bisulfate (Plavix) 75 mg PO DAILY [facility] Last Admin: 07/25/17 09:12 Dose: 75 mg Cyproheptadine HCl (Periactin) 4 mg PO BID [facility] Last Admin: 07/25/17 18:12 Dose: 4 mg Donepezil HCl (Aricept) 10 mg PO HS [facility] Last Admin: 07/24/17 21:38 Dose: 10 mg Epoetin Romel (Procrit) 10,000 unit IV MWF [facility] Ferrous Sulfate (Feosol) 325 mg PO Q12H [facility] Last Admin: 07/25/17 18:12 Dose: 325 mg Heparin Sodium (Porcine) (Heparin) 5,000 units SC Q12 [facility] Last Admin: 07/25/17 09:11 Dose: 5,000 units Home Med (Fesoterodine Fumarate [Toviaz]) 8 mg PO DAILY [facility] Hydromorphone HCl (Dilaudid) 0.5 mg IVP Q4 PRN PRN Reason: Pain, severe (8-10) Last Admin: 07/25/17 15:10 Dose: 0.5 mg Tigecycline 50 mg/ Dextrose 100 mls @ 100 mls/hr IVPB Q12H [facility] Last Admin: 07/25/17 12:18 Dose: 100 mls/hr Metronidazole 250 mg/ (Miscellaneous) 50 mls @ 100 mls/hr IVPB Q8 [facility] Last Admin: 07/25/17 13:21 Dose: 100 mls/hr Insulin Human Regular (Novolin R) 0 unit SC ACHS [facility] PRN Reason: Protocol Last Admin: 07/25/17 18:12 Dose: 3 unit Latanoprost (Xalatan Opht) 0 ml OU HS [facility] Last Admin: 07/24/17 21:38 Dose: 2.5 ml Levothyroxine Sodium (Synthroid) 50 mcg PO DAILY@0630 [facility] Last Admin: 07/25/17 06:03 Dose: 50 mcg Metoprolol Succinate (Toprol Xl) 100 mg PO DAILY [facility] Last Admin: 07/14/17 13:41 Dose: 100 mg Ondansetron HCl (Zofran Inj) 4 mg IVP Q6 PRN PRN Reason: Nausea/Vomiting Pantoprazole Sodium (Protonix Ec Tab) 40 mg PO DAILY [facility] Last Admin: 07/25/17 09:12 Dose: 40 mg Rosuvastatin Calcium (Crestor) 10 mg PO HS [facility] Last Admin: 07/24/17 21:36 Dose: 10 mg Saccharomyces Boulardii (Florastor) 250 mg PO BID [facility] Last Admin: 07/25/17 18:12 Dose: 250 mg - Labs Labs: 07/25/17 06:23 07/25/17 06:25 PT 14.3 SECONDS (9.7-12.2) H 07/16/17 04:00 INR 1.3 07/16/17 04:00 APTT 29 SECONDS (21-34) 07/13/17 20:04 Attending/Attestation - Attestation I have personally seen and examined this patient.: Yes I have fully participated in the care of the patient.: Yes I have reviewed all pertinent clinical information, including history, physical exam and plan: Yes Notes (Text): Pt was seen and examined at bedside Agree with above note and assessment
--- NOTE | 2017-07-21 09:25 | CP.PCM.PN ---
Subjective - Date & Time of Evaluation Date of Evaluation: 07/21/17 Time of Evaluation: 09:20 - Subjective Subjective: Medical Attending Note: Events since last note: Patient completed Permacath insertion. Status post procedure. Patient went into PEA intubated and ROSC achieved. Patient was started on pressor. Patient completed first time dialysis yesterday. Patient seen and examined this morning. Patient gesturing towards the ET tube, patient notes he feels the tube. Patient reports chest pain and denies abdominal pain. Note: patient has history of Alzheimer's disease. ICU currently on rounds at this time. Objective - Vital Signs/Intake and Output Vital Signs (last 24 hours): Temp Pulse Resp BP Pulse Ox 99.5 F 85 16 113/53 L 100 07/21/17 04:00 07/21/17 07:00 07/21/17 07:00 07/21/17 06:42 07/21/17 06:45 Intake and Output: 07/21/17 07/21/17 06:59 18:59 Intake Total 972.2 37.5 Output Total 1140 20 Balance -167.8 17.5 - Medications Medications: Current Medications Albuterol/Ipratropium (Duoneb 3 Mg/0.5 Mg (3 Ml) Ud) 3 ml INH RQ6 PENDING SALE TO [facility] Last Admin: 07/21/17 07:30 Dose: 3 ml Ascorbic Acid (Vitamin C 250 Mg Tab) 250 mg PO DAILY PENDING SALE TO [facility] Last Admin: 07/20/17 10:12 Dose: Not Given Benzocaine/Menthol (Cepacol Sore Throat) 1 love MT Q2 PRN PRN Reason: Sore Throat Last Admin: 07/17/17 20:25 Dose: 1 love Calcium Acetate (Phoslo) 1,334 mg PO TID PENDING SALE TO [facility] Last Admin: 07/20/17 18:00 Dose: Not Given Clopidogrel Bisulfate (Plavix) 75 mg PO DAILY PENDING SALE TO [facility] Cyproheptadine HCl (Periactin) 4 mg PO BID PENDING SALE TO [facility] Last Admin: 07/20/17 19:26 Dose: Not Given Donepezil HCl (Aricept) 10 mg PO HS PENDING SALE TO [facility] Last Admin: 07/20/17 21:22 Dose: 10 mg Ferrous Sulfate (Feosol) 325 mg PO Q12H PENDING SALE TO [facility] Last Admin: 07/21/17 06:01 Dose: 325 mg Gemfibrozil (Lopid) 600 mg PO BID PENDING SALE TO [facility] Last Admin: 07/20/17 18:00 Dose: Not Given Home Med (Fesoterodine Fumarate [Toviaz]) 8 mg PO DAILY PENDING SALE TO [facility] Hydromorphone HCl (Dilaudid) 0.5 mg IVP Q6H PRN PRN Reason: Pain, severe (8-10) Tigecycline 50 mg/ Dextrose 100 mls @ 100 mls/hr IVPB Q12H PENDING SALE TO [facility] Last Admin: 07/21/17 00:39 Dose: 100 mls/hr Metronidazole 250 mg/ (Miscellaneous) 50 mls @ 100 mls/hr IVPB Q8 PENDING SALE TO [facility] Last Admin: 07/21/17 06:00 Dose: 100 mls/hr Norepinephrine Bitartrate 4 mg (/ Sodium Chloride) 254 mls @ 15.24 mls/hr IV .[id number] PRN; Protocol; 4 MCG/MIN PRN Reason: TITRATE PER MD ORDER Last Titration: 07/21/17 03:00 Dose: 10 mcg/min, 38.1 mls/hr Propofol (Diprivan) 1,000 mg in 100 mls @ 1.943 mls/hr IV .Q24H PRN; Protocol; 5 MCG/KG/MIN PRN Reason: TITRATE PER MD ORDER Last Titration: 07/21/17 01:00 Dose: 0 mcg/kg/min, 0 mls/hr Insulin Human Regular (Novolin R) 0 unit SC Q6 PENDING SALE TO [facility] PRN Reason: Protocol Last Admin: 07/21/17 06:56 Dose: Not Given Latanoprost (Xalatan Opht) 0 ml OU HS PENDING SALE TO [facility] Last Admin: 07/20/17 22:00 Dose: 2.5 ml Levothyroxine Sodium (Synthroid) 50 mcg PO DAILY@0630 PENDING SALE TO [facility] Last Admin: 07/21/17 06:01 Dose: 50 mcg Lorazepam (Ativan) 2 mg IVP Q4 PRN PRN Reason: Anxiety Meclizine HCl (Antivert) 12.5 mg PO TID PENDING SALE TO [facility] Last Admin: 07/20/17 18:00 Dose: Not Given Metoprolol Succinate (Toprol Xl) 100 mg PO DAILY PENDING SALE TO [facility] Last Admin: 07/14/17 13:41 Dose: 100 mg Ondansetron HCl (Zofran Inj) 4 mg IVP Q6 PRN PRN Reason: Nausea/Vomiting Pantoprazole Sodium (Protonix Inj) 40 mg IVP DAILY PENDING SALE TO [facility] Last Admin: 07/20/17 10:32 Dose: 40 mg Rosuvastatin Calcium (Crestor) 10 mg PO HS PENDING SALE TO [facility] Last Admin: 07/20/17 21:22 Dose: 10 mg Saccharomyces Boulardii (Florastor) 250 mg PO BID PENDING SALE TO [facility] Last Admin: 07/20/17 18:00 Dose: Not Given - Labs Labs: 07/21/17 06:54 07/21/17 06:54 PT 14.3 SECONDS (9.7-12.2) H 07/16/17 04:00 INR 1.3 07/16/17 04:00 APTT 29 SECONDS (21-34) 07/13/17 20:04 - Constitutional Appears: Non-toxic, No Acute Distress - Head Exam Head Exam: NORMAL INSPECTION - Eye Exam Eye Exam: EOMI. absent: Nystagmus, Scleral icterus - ENT Exam ENT Exam: Mucous Membranes Moist - Respiratory Exam Respiratory Exam: Rales, NORMAL BREATHING PATTERN. absent: Stridor - Cardiovascular Exam Cardiovascular Exam: REGULAR RHYTHM, +S1, +S2 - GI/Abdominal Exam GI & Abdominal Exam: Distended, Soft, Tenderness, Normal Bowel Sounds. absent: Guarding, Rigid, Rebound Additional comments: tender to palpation - Extremities Exam Extremities Exam: absent: Pedal Edema, Tenderness - Neurological Exam Neurological Exam: Alert, Awake - Skin Skin Exam: Dry, Intact, Normal Color, Warm Assessment and Plan - Assessment and Plan (Free Text) Assessment: Assessment & Plan (1) Cardiac Arrest PEA on 07/21/17 Assessment and Plan: * Status post-procedure; patient went into PEA on 07/21 ROSC returned; intubated 07/21/17; * Patient is awake, gesturing towards to the ET to be taking out * Pending official chest xray for this morning * management per ICU to determine when patient is ready for extubation * Troponin trending up this morning but in light of cardiac arrest with \ROSC ; repeat CORDELL at 12PM Status: Acute (2) Chest pain Assessment and Plan: * Patient with atypical chest pain history * Cardio Dr. Chau does not feel that this is cardiac related * PEA on 07/21 * Per cardio note: patient does not appear to have CHF, will trend troponin * Discussed with cardio; no amiodarone needed * TSH, Free T4 are normal * ECHO 07/13/17: LV EF is WNL, moderate concentric LVH, Grade I abnormal relaxation pattern Status: Acute (3) ERCP Guidewire Perforation of Liver Capsule vs Peripheral Bile Duct Assessment and Plan: * s/p ERCP with removal of stent and sphincterotomy with Dr. Damian 07/13/17 * CXR 07/13/17 does not show air under diaphragm. * Chest CT 07/13/17 shows pneumobilia as well as possible free air beneath Right Hemidiaphragm within Paraesophagel soft tissues. * CT Abdomen/Pelvis 07/13/17 shows gas fluid and stranding in the subcapsular and extracapsular area around Left Lobe Liver. * CT Abdomen/Pelvis on 07/14/17 showed gas and fluid around left lobe liver and along inferior vena cava that is unchanged, no evidence of extravasation of oral contrast from stomach or duodenem. * Abdomen X Ray 07/16/17 showed NO obstruction. * CT Abdomen/Pelvis w/o contrast 07/19/17: Fluid re-identified, which appears similar in size and likely subcapsular in location. No nathan currently evident with in the collection, Small pneumobila. Moderate bilateral pleural effusions and associated consolidations. Small abomdinla ascites. Small pelvic free fluid. Thicken walled under distended urinary bladder which contains air, Pacheco catheter is present * GI Dr. Damian spoke with IR 07/15/17 and area is NOT amenable to percutaneous drainage. * Surgery Dr. Boyce consulted: no surgical intervention at this time and keep NPO with NGT for now * 07/21: patient intubated yesterday in light of events; with OGT Status: Acute (4) Enterococcus faecium Bacteremia * Infectious Disease (Dr. Langford) on the board * Started on Tigecycline 50 mg IV Q12H after 100 mg initial infusion (07/17/17) * Discontinued Meropenem, Ciprofloxicin, and Vancomycin (07/17/17) * 07/14/17: Enterococcus Faecium X2 * Blood Culture: 07/17/17: No growth after 48 hours (1 bottle/the 2nd one supports Enterococcus Faecium) * Blood Culture: 07/20/17: No growth after 24 hours X2 * On contact isolation Status: Acute (5). Atrial Fibrillation/Elevated Troponin * Cardiology (Dr. Chau) on board-->help appreciated * Amiodarone 900mg IV Q 24H * Toprol XL 100mg PO daily (held) * The Atrial Fibrillation is likely secondary to the increased sympathetic tone from the Sepsis and the elevated Troponin likely secondary to the Atrial Fibrillation * Repeat EKG (NSR) 07/21/17 Status: Acute (6) Bilateral Pneumonia * CT Abdomen/Pelvis 07/13/17 showed bibasilar lingular and right middle lobe mild nonspecific infiltrates consistent with atelectasis/pneumonia * As patient was admitted to hospital within the last month (for Left Buttock Abscess) and has been on antibiotics, this is likely Health Care Associated Pneumonia with increased risk for Multidrug Resistence therefore he was treated with the following: * Meropenem 500 mg IV Q6H (07/14/17 through 07/17/17), Ciprofloxacin 400 mg IV Q12H (07/14/17 through 07/16/17),Vancomycin 1 gm IV Q24H (07/14/17 through ) and then patient started on Tigecycline as mentioned above * CT Abdomen/Pelvis w/o contrast 07/19/17: Fluid re-identified, which appears similar in size and likely subcapsular in location. No nathan currently evident with in the collection, Small pneumobila. Moderate bilateral pleural effusions and associated consolidations. Small abomdinla ascites. Small pelvic free fluid. Thicken walled under distended urinary bladder which contains air, Pacheco catheter is present * Urine Legionella Ag is negative * Urine Strep pneumoniae Ag: non detected * Mycoplasma IgM is 81 (negative) Ig.07 * Influenza A/B is negative * Urine Culture is negative Status: Acute (7). Anion Gap Metabolic Acidosis * Sepsis: CODE SEPSIS was called 07/14/17 * See Assessment and Plans #2, #3, #5 * Due to the severe acidosis he was also started on D5W with 3 amps of NaHCO3 running at 100 ml/hour and this had resolved therefore the D5W NaHCO3 was discontinued 07/15/17. However the Acidosis returned and is likely secondary to the worsening Renal Function/Sepsis. Status: Acute (8). Hyperkalemia * Likely secondary to the Anion Gap Metabolic Acidosis * See Assessment and Plans #2 and #3 * Mild Status: Acute (9). CKD Stage III/Worsening Renal Failure/Hyponatremia * Nephrology Dr. Oconnell * The worsening Renal Function likely secondary to the Sepsis * Worsening Hyponatremia likely dilutional from the IVF initially used to help with the Renal Function. IVF have been discontinued. * Lasix 60 mg IV 2x/day started 07/18/17 to help with the Hyponatremia however there was no significant improvement on 07/19/17 * Despite the Lasix, renal function worsening 07/19/17. 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 Larsen was notified 07/19/17 and HD orders have been provided by Dr. Larsen to HD Nurse Ramon Garibay to start HD once Dialysis Catheter is placed by the Surgical Team which is planned for morning of 07/20/17. * 07/21: patient started dialysis on 07/20; 800 ML removed Status: Acute on Chronic (10). Headache with Hx CVA Assessment and Plan: * CT Head 07/13/17 was negative for bleed or acute process * If NO surgical/IR intervention will then restart ASA * held Plavix 75 mg PO 1x/day since 07/14/17 Status: Acute (11) AD (Alzheimer's disease) Assessment and Plan: * Aricept 10 mg PO daily. Status: Chronic (12) Choledocholithiasis Assessment and Plan: * s/p ERCP with removal of stent and sphincterotomy with Dr. Damian 07/13/17 Status: Acute (13) Anemia Assessment and Plan: * Likely secondary to Chronic Disease: CKD Stage III * Resume Ferrous Sulfate 325 mg PO daily. HgB/Hct are stable Status: Chronic (14) Hx Left Gluteal abscess Assessment and Plan: * Was I&D by surgery team on 06/26/17 * Treated with Bactrim 800/160 PO Q12H for 7 days S/P discharge 06/27/17 Status: Chronic (15) HLD (hyperlipidemia) Assessment and Plan: * Lopid 600 mg PO BID * Patient takes Lipitor 80 mg PO HS which is not on formulary therefore Crestor 10 mg PO HS (renal dosed). Status: Chronic (16) HTN (hypertension) Assessment and Plan: * As the patient's blood pressure is on the low end and he is on Amiodarone Drip , therefore the following medications are on HOLD: Amlodipine 10 mg PO daily, Metoprolol XL 100 mg PO daily, and Losartan 100 mg PO daily are all on HOLD Status: Chronic (17) Hx of stroke without residual deficits Assessment and Plan: * CT Head 07/13/17 was negative for bleed or acute process * Crestor 10 mg PO HS (renal dosed). * Hold ASA as mentioned above * Hold Plavix 75 mg PO 1x/day since 07/14/17 Status: Chronic (18) Diabetes Assessment and Plan: * Blood Glucose elevated at times: he is on clear liquids * ISS Q6H * Accuchecks Q6H Status: Chronic (19) History of hypothyroidism Assessment and Plan: * Levothyroxine 50 mcg PO daily * TSH, Free T4 are normal Status: Chronic (20) Overactive bladder Assessment and Plan: * Festerodine 8 mg PO 1x/day * Enlarged Prostate on CT Abdomen/Pelvis * PSA ordered 07/14/17 but I do not see results. I believe he can follow this up as an outpatient. Status: Chronic (21) Hx of glaucoma Assessment and Plan: Patient's home med Travatan ggt not on formulary. Started Xalatan ggt in bilateral eyes. Status: Chronic (22) Hx of gastroesophageal reflux (GERD) Assessment and Plan: Protonix 10 mg IV daily Status: Chronic (23) Prophylactic measure Assessment and Plan: * Protonix 10 mg daily * SCDs * Hold chemical anticoagulation for now for reasons mentioned above * Ascorbic Acid 250 mg PO daily * Florastor 250 mg PO 2x/day * Zofran 4 mg IV Q6H PRN N/V * Morphine 0.5 mg IV Q6H PRN Severe Pain with Holding Parameters (hesitant to give anything more due to the low end of normal Blood Pressure) * Cyproheptadine 4 mg PO 2x/day * Benzocaine/Menthol 1 love Q2H PRN sore throat * Intubated on 07/20/17; on Pressor 07/21; off sedation
--- NOTE | 2017-07-21 09:27 | RAD ---
Chest x-ray single frontal view History: Intubated. Comparison: 07/20/2017 Findings: Lines and tubes in stable position. Mild venous congestion. Confluent opacification of the left mid to lower lung zone as well as the right lung base. Linear lucency along the lateral margin of the left lower rina thorax which may represent Mach artifact as there appears to be markings extending past this level. Bilateral hilar prominence. Small left pleural effusion. Biapical pleural thickening. Calcification at the aortic knob. Cardiomegaly. Degenerative changes in the spine and shoulders. Impression: Lines and tubes in stable position. Mild venous congestion. Confluent opacification of the left mid to lower lung zone as well as the right lung base. Linear lucency along the lateral margin of the left lower rina thorax which may represent Mach artifact as there appears to be markings extending past this level. Bilateral hilar prominence. Small left pleural effusion. Biapical pleural thickening. Calcification at the aortic knob. Cardiomegaly.
--- NOTE | 2017-07-21 09:32 | CP.PCM.PN ---
<Dianne Salinas - Last Filed: 07/21/17 09:27> Subjective - Date & Time of Evaluation Date of Evaluation: 07/21/17 Time of Evaluation: 09:27 - Subjective Subjective: Gastroenterology Fellow/PGY5 Progress Note Patient with PEA arrest complicated by hypoxia after Perm-a-cath placement yesterday. Nursing denies acute events overnight. A 12-point review of systems not completed due to advanced Dementia and on ventilator support. Objective - Vital Signs/Intake and Output Vital Signs (last 24 hours): Temp Pulse Resp BP Pulse Ox 99.5 F 85 16 113/53 L 100 07/21/17 04:00 07/21/17 07:00 07/21/17 07:00 07/21/17 06:42 07/21/17 06:45 Intake and Output: 07/21/17 07/21/17 06:59 18:59 Intake Total 972.2 37.5 Output Total 1140 20 Balance -167.8 17.5 - Medications Medications: Current Medications Albuterol/Ipratropium (Duoneb 3 Mg/0.5 Mg (3 Ml) Ud) 3 ml INH RQ6 [facility] Last Admin: 07/21/17 07:30 Dose: 3 ml Ascorbic Acid (Vitamin C 250 Mg Tab) 250 mg PO DAILY [facility] Last Admin: 07/20/17 10:12 Dose: Not Given Benzocaine/Menthol (Cepacol Sore Throat) 1 love MT Q2 PRN PRN Reason: Sore Throat Last Admin: 07/17/17 20:25 Dose: 1 love Calcium Acetate (Phoslo) 1,334 mg PO TID [facility] Last Admin: 07/20/17 18:00 Dose: Not Given Clopidogrel Bisulfate (Plavix) 75 mg PO DAILY [facility] Cyproheptadine HCl (Periactin) 4 mg PO BID [facility] Last Admin: 07/20/17 19:26 Dose: Not Given Donepezil HCl (Aricept) 10 mg PO HS [facility] Last Admin: 07/20/17 21:22 Dose: 10 mg Ferrous Sulfate (Feosol) 325 mg PO Q12H [facility] Last Admin: 07/21/17 06:01 Dose: 325 mg Gemfibrozil (Lopid) 600 mg PO BID [facility] Last Admin: 07/20/17 18:00 Dose: Not Given Home Med (Fesoterodine Fumarate [Toviaz]) 8 mg PO DAILY [facility] Hydromorphone HCl (Dilaudid) 0.5 mg IVP Q6H PRN PRN Reason: Pain, severe (8-10) Tigecycline 50 mg/ Dextrose 100 mls @ 100 mls/hr IVPB Q12H [facility] Last Admin: 07/21/17 00:39 Dose: 100 mls/hr Metronidazole 250 mg/ (Miscellaneous) 50 mls @ 100 mls/hr IVPB Q8 [facility] Last Admin: 07/21/17 06:00 Dose: 100 mls/hr Norepinephrine Bitartrate 4 mg (/ Sodium Chloride) 254 mls @ 15.24 mls/hr IV .[id number] PRN; Protocol; 4 MCG/MIN PRN Reason: TITRATE PER MD ORDER Last Titration: 07/21/17 03:00 Dose: 10 mcg/min, 38.1 mls/hr Propofol (Diprivan) 1,000 mg in 100 mls @ 1.943 mls/hr IV .Q24H PRN; Protocol; 5 MCG/KG/MIN PRN Reason: TITRATE PER MD ORDER Last Titration: 07/21/17 01:00 Dose: 0 mcg/kg/min, 0 mls/hr Insulin Human Regular (Novolin R) 0 unit SC Q6 [facility] PRN Reason: Protocol Last Admin: 07/21/17 06:56 Dose: Not Given Latanoprost (Xalatan Opht) 0 ml OU HS [facility] Last Admin: 07/20/17 22:00 Dose: 2.5 ml Levothyroxine Sodium (Synthroid) 50 mcg PO DAILY@0630 [facility] Last Admin: 07/21/17 06:01 Dose: 50 mcg Lorazepam (Ativan) 2 mg IVP Q4 PRN PRN Reason: Anxiety Meclizine HCl (Antivert) 12.5 mg PO TID [facility] Last Admin: 07/20/17 18:00 Dose: Not Given Metoprolol Succinate (Toprol Xl) 100 mg PO DAILY [facility] Last Admin: 07/14/17 13:41 Dose: 100 mg Ondansetron HCl (Zofran Inj) 4 mg IVP Q6 PRN PRN Reason: Nausea/Vomiting Pantoprazole Sodium (Protonix Inj) 40 mg IVP DAILY [facility] Last Admin: 07/20/17 10:32 Dose: 40 mg Rosuvastatin Calcium (Crestor) 10 mg PO HS [facility] Last Admin: 07/20/17 21:22 Dose: 10 mg Saccharomyces Boulardii (Florastor) 250 mg PO BID [facility] Last Admin: 07/20/17 18:00 Dose: Not Given - Labs Labs: 07/21/17 06:54 07/21/17 06:54 PT 14.3 SECONDS (9.7-12.2) H 07/16/17 04:00 INR 1.3 07/16/17 04:00 APTT 29 SECONDS (21-34) 07/13/17 20:04 - Constitutional Appears: No Acute Distress, Chronically Ill - Head Exam Head Exam: ATRAUMATIC, NORMOCEPHALIC - Eye Exam Eye Exam: EOMI, PERRL - ENT Exam ENT Exam: Mucous Membranes Dry, Normal Oropharynx Additional comments: ETT and OGT in place - Neck Exam Neck Exam: Full ROM, Normal Inspection - Respiratory Exam Respiratory Exam: Clear to Ausculation Bilateral. absent: Rales, Rhonchi, Wheezes - Cardiovascular Exam Cardiovascular Exam: RRR, +S1, +S2. absent: Gallop, Rubs - GI/Abdominal Exam GI & Abdominal Exam: Soft, Tenderness, Normal Bowel Sounds. absent: Distended, Firm, Guarding, Rigid, Organomegaly, Rebound - Extremities Exam Extremities Exam: Normal Inspection. absent: Pedal Edema - Neurological Exam Neurological Exam: Awake - Psychiatric Exam Psychiatric exam: Normal Affect, Normal Mood - Skin Skin Exam: Dry, Intact, Normal Color, Warm Assessment and Plan - Assessment and Plan (Free Text) Assessment: 82 year old male wit history of Diabetes, Hyperlipidemia, Hypertension, Hypothyroidism, CKD, Alzheimer's Dementia, CVA on Plavix, and cholangitis s/p ERCP with CBD stent (04/2017). Active treatment of hypoxic VDRF s/p PEA arrest with ROSC, renal failure on HD, HCAP, E. faecium Bacteremia, and ERCP guidewire pneumoperitoneum with hepatic subcapsular/extracapsular fluid collection. Plan: >ICU managing ventilator and vasopressor support >consider enteral nutritional support if requires prolonged ventilator support >07/[address] A/P- unchanged subcapsular fluid collection >received dialysis yesterday >ID managing- broad spectrum antibiotics >will follow clinical course <Gabriel Chang Y - Last Filed: 07/21/17 09:56> Objective - Vital Signs/Intake and Output Vital Signs (last 24 hours): Temp Pulse Resp BP Pulse Ox 99.5 F 85 16 113/53 L 100 07/21/17 04:00 07/21/17 07:00 07/21/17 07:00 07/21/17 06:42 07/21/17 06:45 Intake and Output: 07/21/17 07/21/17 06:59 18:59 Intake Total 972.2 37.5 Output Total 1140 20 Balance -167.8 17.5 - Medications Medications: Current Medications Albuterol/Ipratropium (Duoneb 3 Mg/0.5 Mg (3 Ml) Ud) 3 ml INH RQ6 [facility] Last Admin: 07/21/17 07:30 Dose: 3 ml Ascorbic Acid (Vitamin C 250 Mg Tab) 250 mg PO DAILY [facility] Last Admin: 07/20/17 10:12 Dose: Not Given Benzocaine/Menthol (Cepacol Sore Throat) 1 love MT Q2 PRN PRN Reason: Sore Throat Last Admin: 07/17/17 20:25 Dose: 1 love Calcium Acetate (Phoslo) 1,334 mg PO TID [facility] Last Admin: 07/20/17 18:00 Dose: Not Given Clopidogrel Bisulfate (Plavix) 75 mg PO DAILY [facility] Cyproheptadine HCl (Periactin) 4 mg PO BID [facility] Last Admin: 07/20/17 19:26 Dose: Not Given Donepezil HCl (Aricept) 10 mg PO HS [facility] Last Admin: 07/20/17 21:22 Dose: 10 mg Ferrous Sulfate (Feosol) 325 mg PO Q12H [facility] Last Admin: 07/21/17 06:01 Dose: 325 mg Gemfibrozil (Lopid) 600 mg PO BID [facility] Last Admin: 07/20/17 18:00 Dose: Not Given Home Med (Fesoterodine Fumarate [Toviaz]) 8 mg PO DAILY [facility] Hydromorphone HCl (Dilaudid) 0.5 mg IVP Q6H PRN PRN Reason: Pain, severe (8-10) Tigecycline 50 mg/ Dextrose 100 mls @ 100 mls/hr IVPB Q12H [facility] Last Admin: 07/21/17 00:39 Dose: 100 mls/hr Metronidazole 250 mg/ (Miscellaneous) 50 mls @ 100 mls/hr IVPB Q8 [facility] Last Admin: 07/21/17 06:00 Dose: 100 mls/hr Norepinephrine Bitartrate 4 mg (/ Sodium Chloride) 254 mls @ 15.24 mls/hr IV .[id number] PRN; Protocol; 4 MCG/MIN PRN Reason: TITRATE PER MD ORDER Last Titration: 07/21/17 03:00 Dose: 10 mcg/min, 38.1 mls/hr Propofol (Diprivan) 1,000 mg in 100 mls @ 1.943 mls/hr IV .Q24H PRN; Protocol; 5 MCG/KG/MIN PRN Reason: TITRATE PER MD ORDER Last Titration: 07/21/17 01:00 Dose: 0 mcg/kg/min, 0 mls/hr Insulin Human Regular (Novolin R) 0 unit SC Q6 [facility] PRN Reason: Protocol Last Admin: 07/21/17 06:56 Dose: Not Given Latanoprost (Xalatan Opht) 0 ml OU HS [facility] Last Admin: 07/20/17 22:00 Dose: 2.5 ml Levothyroxine Sodium (Synthroid) 50 mcg PO DAILY@0630 [facility] Last Admin: 07/21/17 06:01 Dose: 50 mcg Lorazepam (Ativan) 2 mg IVP Q4 PRN PRN Reason: Anxiety Meclizine HCl (Antivert) 12.5 mg PO TID [facility] Last Admin: 07/20/17 18:00 Dose: Not Given Metoprolol Succinate (Toprol Xl) 100 mg PO DAILY [facility] Last Admin: 07/14/17 13:41 Dose: 100 mg Ondansetron HCl (Zofran Inj) 4 mg IVP Q6 PRN PRN Reason: Nausea/Vomiting Pantoprazole Sodium (Protonix Inj) 40 mg IVP DAILY [facility] Last Admin: 07/20/17 10:32 Dose: 40 mg Rosuvastatin Calcium (Crestor) 10 mg PO HS [facility] Last Admin: 07/20/17 21:22 Dose: 10 mg Saccharomyces Boulardii (Florastor) 250 mg PO BID [facility] Last Admin: 07/20/17 18:00 Dose: Not Given - Labs Labs: 07/21/17 06:54 07/21/17 06:54 PT 14.3 SECONDS (9.7-12.2) H 07/16/17 04:00 INR 1.3 07/16/17 04:00 APTT 29 SECONDS (21-34) 07/13/17 20:04 Attending/Attestation - Attestation I have personally seen and examined this patient.: Yes I have fully participated in the care of the patient.: Yes I have reviewed all pertinent clinical information, including history, physical exam and plan: Yes Notes (Text): 07/21/17 09:51 I have seen and examined patient with GI fellow. Events from yesterday s/p permacath placement with PEA arrest noted. Patient remains in critical care unit on vasopressor therapy. He is awake and makes motions asking for extubation. No reported abdominal pain, vomiting, fever/chills. Review of vitals from today shows hypotension and low grade temperature. DM / HTN Hyperlipidemia Hypothyroidism Acute on chronic renal insufficiency, s/p permacath placement and initiation of dialysis Dementia CVA s/p ERCP with guidewire perforation of bile duct/hepatic capsule Sepsis, bacteremia Pneumonia - Continue with antibiotic therapy as per ID - Continue to monitor renal function, follow up nephrology recommendations - Repeat CT imaging reviewed by me showing no evidence of abdominal free air or worsening fluid collection, therefore no intervention warranted at this time - If prolonged intubation time is anticipated, suggest NGT placement and beginning enteral feeding - Ventilator and vasopressor management as per critical care team - Will continue to monitor patient clinical course
[2017-07-21 09:38] LABS: NEUTROPHIL 85 % (50-75); TOTAL CELLS COUNTED 100
[2017-07-21] MEDS: Saccharomyces Boulardi 250 mg Cap PO SCH ×2 (10:07→18:10)
--- NOTE | 2017-07-21 11:25 | CP.PCM.PN ---
Subjective - Date & Time of Evaluation Date of Evaluation: 07/21/17 Time of Evaluation: 11:22 - Subjective Subjective: pt seen and examined intubated sedated events noted code blue/PEA yesterday. tolerated hd, uf 800cc on one pressor currently good uop ros couldnt be obtained due to mental status Objective - Vital Signs/Intake and Output Vital Signs (last 24 hours): Temp Pulse Resp BP Pulse Ox 99.5 F 79 16 116/48 L 100 07/21/17 04:00 07/21/17 10:30 07/21/17 10:30 07/21/17 10:30 07/21/17 10:30 Intake and Output: 07/21/17 07/21/17 06:59 18:59 Intake Total 972.2 262.5 Output Total 1140 120 Balance -167.8 142.5 - Medications Medications: Current Medications Albuterol/Ipratropium (Duoneb 3 Mg/0.5 Mg (3 Ml) Ud) 3 ml INH RQ6 [facility] Last Admin: 07/21/17 07:30 Dose: 3 ml Ascorbic Acid (Vitamin C 250 Mg Tab) 250 mg PO DAILY [facility] Last Admin: 07/21/17 10:09 Dose: 250 mg Benzocaine/Menthol (Cepacol Sore Throat) 1 love MT Q2 PRN PRN Reason: Sore Throat Last Admin: 07/17/17 20:25 Dose: 1 love Calcium Acetate (Phoslo) 1,334 mg PO TID [facility] Last Admin: 07/21/17 10:06 Dose: 1,334 mg Clopidogrel Bisulfate (Plavix) 75 mg PO DAILY [facility] Last Admin: 07/21/17 10:06 Dose: 75 mg Cyproheptadine HCl (Periactin) 4 mg PO BID [facility] Last Admin: 07/21/17 10:09 Dose: 4 mg Donepezil HCl (Aricept) 10 mg PO HS [facility] Last Admin: 07/20/17 21:22 Dose: 10 mg Ferrous Sulfate (Feosol) 325 mg PO Q12H [facility] Last Admin: 07/21/17 06:01 Dose: 325 mg Gemfibrozil (Lopid) 600 mg PO BID [facility] Last Admin: 07/21/17 10:10 Dose: 600 mg Home Med (Fesoterodine Fumarate [Toviaz]) 8 mg PO DAILY [facility] Hydromorphone HCl (Dilaudid) 0.5 mg IVP Q6H PRN PRN Reason: Pain, severe (8-10) Tigecycline 50 mg/ Dextrose 100 mls @ 100 mls/hr IVPB Q12H [facility] Last Admin: 07/21/17 00:39 Dose: 100 mls/hr Metronidazole 250 mg/ (Miscellaneous) 50 mls @ 100 mls/hr IVPB Q8 [facility] Last Admin: 07/21/17 06:00 Dose: 100 mls/hr Norepinephrine Bitartrate 4 mg (/ Sodium Chloride) 254 mls @ 15.24 mls/hr IV .[id number] PRN; Protocol; 4 MCG/MIN PRN Reason: TITRATE PER MD ORDER Last Titration: 07/21/17 03:00 Dose: 10 mcg/min, 38.1 mls/hr Propofol (Diprivan) 1,000 mg in 100 mls @ 1.943 mls/hr IV .Q24H PRN; Protocol; 5 MCG/KG/MIN PRN Reason: TITRATE PER MD ORDER Last Titration: 07/21/17 01:00 Dose: 0 mcg/kg/min, 0 mls/hr Insulin Human Regular (Novolin R) 0 unit SC Q6 [facility] PRN Reason: Protocol Last Admin: 07/21/17 06:56 Dose: Not Given Latanoprost (Xalatan Opht) 0 ml OU HS [facility] Last Admin: 07/20/17 22:00 Dose: 2.5 ml Levothyroxine Sodium (Synthroid) 50 mcg PO DAILY@0630 [facility] Last Admin: 07/21/17 06:01 Dose: 50 mcg Lorazepam (Ativan) 2 mg IVP Q4 PRN PRN Reason: Anxiety Meclizine HCl (Antivert) 12.5 mg PO TID [facility] Last Admin: 07/21/17 10:10 Dose: 12.5 mg Metoprolol Succinate (Toprol Xl) 100 mg PO DAILY [facility] Last Admin: 07/14/17 13:41 Dose: 100 mg Ondansetron HCl (Zofran Inj) 4 mg IVP Q6 PRN PRN Reason: Nausea/Vomiting Pantoprazole Sodium (Protonix Inj) 40 mg IVP DAILY [facility] Last Admin: 07/21/17 10:08 Dose: 40 mg Rosuvastatin Calcium (Crestor) 10 mg PO HS [facility] Last Admin: 07/20/17 21:22 Dose: 10 mg Saccharomyces Boulardii (Florastor) 250 mg PO BID [facility] Last Admin: 07/21/17 10:07 Dose: 250 mg - Labs Labs: 07/21/17 06:54 07/21/17 06:54 PT 14.3 SECONDS (9.7-12.2) H 07/16/17 04:00 INR 1.3 07/16/17 04:00 APTT 29 SECONDS (21-34) 07/13/17 20:04 - Constitutional Appears: No Acute Distress, Chronically Ill (intubated sedated) - Eye Exam Eye Exam: Normal appearance - ENT Exam ENT Exam: Mucous Membranes Moist Additional comments: et tube in place - Neck Exam Neck Exam: Normal Inspection - Respiratory Exam Respiratory Exam: Decreased Breath Sounds (mechanical vent sounds) - Cardiovascular Exam Cardiovascular Exam: REGULAR RHYTHM, RRR - GI/Abdominal Exam GI & Abdominal Exam: Distended, Soft - Extremities Exam Extremities Exam: Pedal Edema Assessment and Plan (1) JAY JAY (acute kidney injury) Status: Acute (2) CVA, old, cognitive deficits Status: Acute (3) Hyponatremia with excess extracellular fluid volume Status: Acute (4) AD (Alzheimer's disease) Status: Acute - Assessment and Plan (Free Text) Assessment: recommend nepro tube feeds, no free water hd tomorrow watch na, avoid rapid rise
--- NOTE | 2017-07-21 12:39 | CP.PCM.PN ---
Subjective - Date & Time of Evaluation Date of Evaluation: 07/21/17 Time of Evaluation: 10:00 - Subjective Subjective: events noted now intubated s/p Code Blue repeat blood c/s negative on Tygacil cont same for min 14 days with follow up imaging Objective - Vital Signs/Intake and Output Vital Signs (last 24 hours): Temp Pulse Resp BP Pulse Ox 99.5 F 79 16 116/48 L 100 07/21/17 04:00 07/21/17 10:30 07/21/17 10:30 07/21/17 10:30 07/21/17 10:30 Intake and Output: 07/21/17 07/21/17 06:59 18:59 Intake Total 972.2 422.5 Output Total 1140 345 Balance -167.8 77.5 - Medications Medications: Current Medications Albuterol/Ipratropium (Duoneb 3 Mg/0.5 Mg (3 Ml) Ud) 3 ml INH RQ6 [facility] Last Admin: 07/21/17 07:30 Dose: 3 ml Ascorbic Acid (Vitamin C 250 Mg Tab) 250 mg PO DAILY [facility] Last Admin: 07/21/17 10:09 Dose: 250 mg Benzocaine/Menthol (Cepacol Sore Throat) 1 love MT Q2 PRN PRN Reason: Sore Throat Last Admin: 07/17/17 20:25 Dose: 1 love Calcium Acetate (Phoslo) 1,334 mg PO TID [facility] Last Admin: 07/21/17 10:06 Dose: 1,334 mg Clopidogrel Bisulfate (Plavix) 75 mg PO DAILY [facility] Last Admin: 07/21/17 10:06 Dose: 75 mg Cyproheptadine HCl (Periactin) 4 mg PO BID [facility] Last Admin: 07/21/17 10:09 Dose: 4 mg Donepezil HCl (Aricept) 10 mg PO HS [facility] Last Admin: 07/20/17 21:22 Dose: 10 mg Ferrous Sulfate (Feosol) 325 mg PO Q12H [facility] Last Admin: 07/21/17 06:01 Dose: 325 mg Gemfibrozil (Lopid) 600 mg PO BID [facility] Last Admin: 07/21/17 10:10 Dose: 600 mg Home Med (Fesoterodine Fumarate [Toviaz]) 8 mg PO DAILY [facility] Hydromorphone HCl (Dilaudid) 0.5 mg IVP Q6H PRN PRN Reason: Pain, severe (8-10) Tigecycline 50 mg/ Dextrose 100 mls @ 100 mls/hr IVPB Q12H [facility] Last Admin: 07/21/17 12:33 Dose: 100 mls/hr Metronidazole 250 mg/ (Miscellaneous) 50 mls @ 100 mls/hr IVPB Q8 [facility] Last Admin: 07/21/17 06:00 Dose: 100 mls/hr Norepinephrine Bitartrate 4 mg (/ Sodium Chloride) 254 mls @ 15.24 mls/hr IV .[id number] PRN; Protocol; 4 MCG/MIN PRN Reason: TITRATE PER MD ORDER Last Titration: 07/21/17 03:00 Dose: 10 mcg/min, 38.1 mls/hr Propofol (Diprivan) 1,000 mg in 100 mls @ 1.943 mls/hr IV .Q24H PRN; Protocol; 5 MCG/KG/MIN PRN Reason: TITRATE PER MD ORDER Last Titration: 07/21/17 01:00 Dose: 0 mcg/kg/min, 0 mls/hr Insulin Human Regular (Novolin R) 0 unit SC Q6 [facility] PRN Reason: Protocol Last Admin: 07/21/17 12:14 Dose: 3 unit Latanoprost (Xalatan Opht) 0 ml OU HS [facility] Last Admin: 07/20/17 22:00 Dose: 2.5 ml Levothyroxine Sodium (Synthroid) 50 mcg PO DAILY@0630 [facility] Last Admin: 07/21/17 06:01 Dose: 50 mcg Lorazepam (Ativan) 2 mg IVP Q4 PRN PRN Reason: Anxiety Meclizine HCl (Antivert) 12.5 mg PO TID [facility] Last Admin: 07/21/17 10:10 Dose: 12.5 mg Metoprolol Succinate (Toprol Xl) 100 mg PO DAILY [facility] Last Admin: 07/14/17 13:41 Dose: 100 mg Ondansetron HCl (Zofran Inj) 4 mg IVP Q6 PRN PRN Reason: Nausea/Vomiting Pantoprazole Sodium (Protonix Inj) 40 mg IVP DAILY [facility] Last Admin: 07/21/17 10:08 Dose: 40 mg Rosuvastatin Calcium (Crestor) 10 mg PO HS [facility] Last Admin: 07/20/17 21:22 Dose: 10 mg Saccharomyces Boulardii (Florastor) 250 mg PO BID [facility] Last Admin: 07/21/17 10:07 Dose: 250 mg - Labs Labs: 07/21/17 06:54 07/21/17 06:54 PT 14.3 SECONDS (9.7-12.2) H 07/16/17 04:00 INR 1.3 07/16/17 04:00 APTT 29 SECONDS (21-34) 07/13/17 20:04 - Constitutional Appears: Non-toxic - Head Exam Head Exam: NORMOCEPHALIC - Eye Exam Eye Exam: absent: Scleral icterus - ENT Exam ENT Exam: Mucous Membranes Dry - Neck Exam Neck Exam: absent: Lymphadenopathy - Respiratory Exam Respiratory Exam: Decreased Breath Sounds - Cardiovascular Exam Cardiovascular Exam: REGULAR RHYTHM Assessment and Plan (1) JAY JAY (acute kidney injury) Status: Acute (2) CVA, old, cognitive deficits Status: Acute (3) Chronic kidney disease, stage III (moderate) Status: Acute (4) Headache Status: Acute (5) Hx of gastroesophageal reflux (GERD) Status: Acute
--- NOTE | 2017-07-21 14:17 | CP.PCM.PN ---
Subjective - Date & Time of Evaluation Date of Evaluation: 07/21/17 Time of Evaluation: 14:17 - Subjective Subjective: pt is still intubated, now on neosynephrine, off levophed. TNI went up to .8 Objective - Vital Signs/Intake and Output Vital Signs (last 24 hours): Temp Pulse Resp BP Pulse Ox 98.9 F 83 18 96/43 L 100 07/21/17 12:00 07/21/17 12:30 07/21/17 12:30 07/21/17 12:30 07/21/17 12:30 Intake and Output: 07/21/17 07/21/17 06:59 18:59 Intake Total 1072.2 632.5 Output Total 1140 445 Balance -67.8 187.5 - Medications Medications: Current Medications Albuterol/Ipratropium (Duoneb 3 Mg/0.5 Mg (3 Ml) Ud) 3 ml INH RQ6 [facility] Last Admin: 07/21/17 13:11 Dose: 3 ml Ascorbic Acid (Vitamin C 250 Mg Tab) 250 mg PO DAILY [facility] Last Admin: 07/21/17 10:09 Dose: 250 mg Benzocaine/Menthol (Cepacol Sore Throat) 1 love MT Q2 PRN PRN Reason: Sore Throat Last Admin: 07/17/17 20:25 Dose: 1 love Calcium Acetate (Phoslo) 1,334 mg PO TID [facility] Last Admin: 07/21/17 13:55 Dose: 1,334 mg Clopidogrel Bisulfate (Plavix) 75 mg PO DAILY [facility] Last Admin: 07/21/17 10:06 Dose: 75 mg Cyproheptadine HCl (Periactin) 4 mg PO BID [facility] Last Admin: 07/21/17 10:09 Dose: 4 mg Donepezil HCl (Aricept) 10 mg PO HS [facility] Last Admin: 07/20/17 21:22 Dose: 10 mg Ferrous Sulfate (Feosol) 325 mg PO Q12H [facility] Last Admin: 07/21/17 06:01 Dose: 325 mg Gemfibrozil (Lopid) 600 mg PO BID [facility] Last Admin: 07/21/17 10:10 Dose: 600 mg Home Med (Fesoterodine Fumarate [Toviaz]) 8 mg PO DAILY [facility] Hydromorphone HCl (Dilaudid) 0.5 mg IVP Q6H PRN PRN Reason: Pain, severe (8-10) Tigecycline 50 mg/ Dextrose 100 mls @ 100 mls/hr IVPB Q12H [facility] Last Admin: 07/21/17 12:33 Dose: 100 mls/hr Metronidazole 250 mg/ (Miscellaneous) 50 mls @ 100 mls/hr IVPB Q8 [facility] Last Admin: 07/21/17 13:05 Dose: 100 mls/hr Norepinephrine Bitartrate 4 mg (/ Sodium Chloride) 254 mls @ 15.24 mls/hr IV .[id number] PRN; Protocol; 4 MCG/MIN PRN Reason: TITRATE PER MD ORDER Last Admin: 07/21/17 09:58 Dose: 10 mcg/min, 38.1 mls/hr Propofol (Diprivan) 1,000 mg in 100 mls @ 1.943 mls/hr IV .Q24H PRN; Protocol; 5 MCG/KG/MIN PRN Reason: TITRATE PER MD ORDER Last Titration: 07/21/17 01:00 Dose: 0 mcg/kg/min, 0 mls/hr Insulin Human Regular (Novolin R) 0 unit SC Q6 [facility] PRN Reason: Protocol Last Admin: 07/21/17 12:14 Dose: 3 unit Latanoprost (Xalatan Opht) 0 ml OU HS [facility] Last Admin: 07/20/17 22:00 Dose: 2.5 ml Levothyroxine Sodium (Synthroid) 50 mcg PO DAILY@0630 [facility] Last Admin: 07/21/17 06:01 Dose: 50 mcg Lorazepam (Ativan) 2 mg IVP Q4 PRN PRN Reason: Anxiety Meclizine HCl (Antivert) 12.5 mg PO TID [facility] Last Admin: 07/21/17 14:01 Dose: 12.5 mg Metoprolol Succinate (Toprol Xl) 100 mg PO DAILY [facility] Last Admin: 07/14/17 13:41 Dose: 100 mg Ondansetron HCl (Zofran Inj) 4 mg IVP Q6 PRN PRN Reason: Nausea/Vomiting Pantoprazole Sodium (Protonix Inj) 40 mg IVP DAILY [facility] Last Admin: 07/21/17 10:08 Dose: 40 mg Rosuvastatin Calcium (Crestor) 10 mg PO HS [facility] Last Admin: 07/20/17 21:22 Dose: 10 mg Saccharomyces Leanderdii (Florastor) 250 mg PO BID [facility] Last Admin: 07/21/17 10:07 Dose: 250 mg - Labs Labs: 07/21/17 06:54 07/21/17 06:54 PT 14.3 SECONDS (9.7-12.2) H 07/16/17 04:00 INR 1.3 07/16/17 04:00 APTT 29 SECONDS (21-34) 07/13/17 20:04 - Constitutional Appears: Older Than Stated Age, Chronically Ill - Eye Exam Eye Exam: EOMI - ENT Exam ENT Exam: Mucous Membranes Moist - Respiratory Exam Respiratory Exam: NORMAL BREATHING PATTERN - Cardiovascular Exam Cardiovascular Exam: REGULAR RHYTHM - Extremities Exam Extremities Exam: Normal Inspection - Neurological Exam Neurological Exam: Normal Gait - Skin Skin Exam: Normal Color Assessment and Plan - Assessment and Plan (Free Text) Assessment: Pt 's bp drops into the 90's systolic off pressors. Trivial tni elevation is a secondary event due to coronary hypoperfusion from shock, likely a septic etiology, and not a primary event. ECG from yesterday shows no ischemia. BP too low at this time for beta elkin. Pt has been in nsr. off amiodarone. CXR is nt c/w chf.
--- NOTE | 2017-07-21 21:07 | CARD ---
APPROVED REPORT EKG Measurement Heart [id number] <Conclusion> Normal sinus rhythm Nonspecific ST and T wave abnormality Abnormal ECG
[2017-07-21] MEDS: Latanoprost 2.5 ml Opht Soln OU SCH (22:21)
[2017-07-22] MEDS: (Novolin R) Insulin Human Regular 100 units/ml vial SC SCH ×4 (00:28→18:05)
[2017-07-22] MEDS: Tigecycline 50 MG in Dextrose 5% In Water 100 ML IVPB SCH ×2 (00:28→12:01)
[2017-07-22] MEDS: Albuterol-Ipratrop 3 mg / 0.5 (3 ml) UD INH SCH ×4 (01:08→19:41)
[2017-07-22 05:51] LABS: ABG MECHANICAL RATE 16; ARTERIAL BLOOD GAS MODE PRVC; ARTERIAL BLOOD HGB O2 SAT 95.6 % (95.0-98.0); ATERIAL BLOOD GAS PEEP 5; CARBOXYHEMOGLOBIN 1.4 % (0.5-1.5); DRAW SITE R BRACH; HHB 1.6 % (0.0-5.0); METHEMOGLOBIN 1.4 % (0.0-3.0)
[2017-07-22] MEDS: Levothyroxine 50 MCG TAB PO SCH (06:09)
[2017-07-22] MEDS: metroNIDAZOLE IV 500 mg/100 ml 250 MG in Premixed IV 1 EA IVPB SCH ×3 (06:09→22:10)
[2017-07-22 06:35] LABS: BASO # 0.1 K/uL (0.0-0.2); BASO % 0.6 % (0.0-2.0); EOS # 0.1 K/uL (0.0-0.7); HEMATOCRIT 25.6 % (35.0-51.0); LYMPH # 1.4 K/uL (1.0-4.3); LYMPH % 10.2 % (20.0-40.0); MEAN CORPUSCULAR HEMOGLOBIN 27.7 pg (27.0-31.0); MEAN CORPUSCULAR HGB CONC 33.4 g/dL (33.0-37.0); MEAN PLATELET VOLUME 8.4 fL (7.2-11.7); MONO # 1.3 K/uL (0.0-0.8); MONO % 9.5 % (0.0-10.0); RED CELL DISTRIBUTION WIDTH 15.3 % (11.5-14.5); WHITE BLOOD COUNT 13.3 K/uL (4.8-10.8)
[2017-07-22 06:49] LABS: ALB/GLOB RATIO 0.8 (1.0-2.1); BILIRUBIN,TOTAL 0.6 mg/dL (0.2-1.3); CALCIUM 7.8 mg/dl (8.6-10.4); MAGNESIUM 2.3 mg/dL (1.6-2.3); PHOSPHOROUS 7.8 mg/dL (2.5-4.5); POTASSIUM 3.2 mmol/L (3.6-5.2); TOTAL PROTEIN 5.4 g/dL (6.3-8.3)
[2017-07-22] MEDS: HYDROmorphone 0.5 mg/0.5 ml ISec IVP PRN ×3 (08:07→22:17)
--- NOTE | 2017-07-22 08:36 | RAD ---
Chest x-ray single frontal view History: Intubated. Comparison: 07/21/2017 Findings: Lines and tubes in stable position. Moderate left pleural effusion with consolidative opacification in the left mid to lower lung zone. Trace right pleural effusion with adjacent right basilar consolidation. Cardiomegaly. Calcification at the aortic knob. Degenerative changes in the spine and shoulders. Impression: Moderate left pleural effusion with consolidative opacification in the left mid to lower lung zone. Trace right pleural effusion with adjacent right basilar consolidation. Cardiomegaly. Calcification at the aortic knob.
--- NOTE | 2017-07-22 08:49 | CP.PCM.PN ---
Subjective - Date & Time of Evaluation Date of Evaluation: 07/22/17 Time of Evaluation: 08:00 - Subjective Subjective: Medical Attending Note: Patient seen and examined this morning. Patient is awake, gesturing towards his ET tube. Patient noting pain over his chest and abdomen. Note: patient has hx of Alzheimer's disease. . Objective - Vital Signs/Intake and Output Vital Signs (last 24 hours): Temp Pulse Resp BP Pulse Ox 98.1 F 122 H 22 96/48 L 89 L 07/22/17 08:00 07/22/17 08:40 07/22/17 08:40 07/22/17 08:40 07/22/17 08:40 Intake and Output: 07/22/17 07/22/17 06:59 18:59 Intake Total 792.6 58.5 Output Total 560 90 Balance 232.6 -31.5 - Medications Medications: Current Medications Albuterol/Ipratropium (Duoneb 3 Mg/0.5 Mg (3 Ml) Ud) 3 ml INH RQ6 [facility] Last Admin: 07/22/17 07:17 Dose: 3 ml Ascorbic Acid (Vitamin C 250 Mg Tab) 250 mg PO DAILY [facility] Last Admin: 07/21/17 10:09 Dose: 250 mg Benzocaine/Menthol (Cepacol Sore Throat) 1 love MT Q2 PRN PRN Reason: Sore Throat Last Admin: 07/17/17 20:25 Dose: 1 love Calcium Acetate (Phoslo) 1,334 mg PO TID [facility] Last Admin: 07/21/17 18:10 Dose: 1,334 mg Clopidogrel Bisulfate (Plavix) 75 mg PO DAILY [facility] Last Admin: 07/21/17 10:06 Dose: 75 mg Cyproheptadine HCl (Periactin) 4 mg PO BID [facility] Last Admin: 07/21/17 18:00 Dose: 4 mg Donepezil HCl (Aricept) 10 mg PO HS [facility] Last Admin: 07/21/17 22:16 Dose: 10 mg Ferrous Sulfate (Feosol) 325 mg PO Q12H [facility] Last Admin: 07/22/17 06:09 Dose: 325 mg Gemfibrozil (Lopid) 600 mg PO BID [facility] Last Admin: 07/21/17 18:11 Dose: 600 mg Heparin Sodium (Porcine) (Heparin) 5,000 units SC Q12 [facility] Last Admin: 07/21/17 22:15 Dose: 5,000 units Home Med (Fesoterodine Fumarate [Toviaz]) 8 mg PO DAILY [facility] Hydromorphone HCl (Dilaudid) 0.5 mg IVP Q6H PRN PRN Reason: Pain, severe (8-10) Last Admin: 07/22/17 08:07 Dose: 0.5 mg Tigecycline 50 mg/ Dextrose 100 mls @ 100 mls/hr IVPB Q12H [facility] Last Admin: 07/22/17 00:28 Dose: 100 mls/hr Metronidazole 250 mg/ (Miscellaneous) 50 mls @ 100 mls/hr IVPB Q8 [facility] Last Admin: 07/22/17 06:09 Dose: 100 mls/hr Norepinephrine Bitartrate 4 mg (/ Sodium Chloride) 254 mls @ 15.24 mls/hr IV .[id number] PRN; Protocol; 4 MCG/MIN PRN Reason: TITRATE PER MD ORDER Last Titration: 07/22/17 03:00 Dose: 2 mcg/min, 7.62 mls/hr Propofol (Diprivan) 1,000 mg in 100 mls @ 1.943 mls/hr IV .Q24H PRN; Protocol; 5 MCG/KG/MIN PRN Reason: TITRATE PER MD ORDER Last Titration: 07/21/17 01:00 Dose: 0 mcg/kg/min, 0 mls/hr Insulin Human Regular (Novolin R) 0 unit SC Q6 DARINEL PRN Reason: Protocol Last Admin: 07/22/17 06:40 Dose: 2 unit Latanoprost (Xalatan Opht) 0 ml OU HS [facility] Last Admin: 07/21/17 22:21 Dose: 2.5 ml Levothyroxine Sodium (Synthroid) 50 mcg PO DAILY@0630 [facility] Last Admin: 07/22/17 06:09 Dose: 50 mcg Lorazepam (Ativan) 2 mg IVP Q4 PRN PRN Reason: Anxiety Meclizine HCl (Antivert) 12.5 mg PO TID [facility] Last Admin: 07/21/17 18:11 Dose: 12.5 mg Metoprolol Succinate (Toprol Xl) 100 mg PO DAILY [facility] Last Admin: 07/14/17 13:41 Dose: 100 mg Ondansetron HCl (Zofran Inj) 4 mg IVP Q6 PRN PRN Reason: Nausea/Vomiting Pantoprazole Sodium (Protonix Inj) 40 mg IVP DAILY [facility] Last Admin: 07/21/17 10:08 Dose: 40 mg Rosuvastatin Calcium (Crestor) 10 mg PO HS [facility] Last Admin: 07/21/17 22:16 Dose: 10 mg Saccharomyces Boulardii (Florastor) 250 mg PO BID [facility] Last Admin: 07/21/17 18:10 Dose: 250 mg - Labs Labs: 07/22/17 06:22 07/22/17 06:22 PT 14.3 SECONDS (9.7-12.2) H 07/16/17 04:00 INR 1.3 07/16/17 04:00 APTT 29 SECONDS (21-34) 07/13/17 20:04 - Constitutional Appears: Non-toxic, Chronically Ill - Head Exam Head Exam: NORMAL INSPECTION Additional comments: intubated, OGT - Eye Exam Eye Exam: EOMI - ENT Exam ENT Exam: Mucous Membranes Moist - Respiratory Exam Respiratory Exam: Decreased Breath Sounds, Rales, NORMAL BREATHING PATTERN. absent: Stridor Additional comments: intubated - Cardiovascular Exam Cardiovascular Exam: Tachycardia, +S1, +S2 - GI/Abdominal Exam GI & Abdominal Exam: Distended, Soft, Tenderness, Normal Bowel Sounds. absent: Firm, Guarding, Rigid, Rebound Additional comments: patient reports tenderness to palpation on exam - Extremities Exam Extremities Exam: absent: Pedal Edema, Tenderness Additional comments: prevalon boots bilateral - Neurological Exam Neurological Exam: Awake - Skin Skin Exam: Dry, Normal Color, Warm Assessment and Plan - Assessment and Plan (Free Text) Assessment: Assessment & Plan (1) Cardiac Arrest PEA on 07/21/17 Assessment and Plan: * Status post-procedure; patient went into PEA on 07/21 ROSC returned; intubated 07/21/17; * Patient is awake, gesturing towards to the ET to be taking out * Chest xray (07/22/17): moderate left pleural effusion with consolidative opacification in the left mid to lower lung zone. trace right pleural effusion with adjacent right basilar consolidation. cardiomeglay. calcification at the aortic knob * management per ICU to determine when patient is ready for extubation Status: Acute (2) Chest pain Assessment and Plan: * Patient with atypical chest pain history * Cardio Dr. Chau does not feel that this is cardiac related * PEA on 07/21 * Per cardio note: patient does not appear to have CHF, will trend troponin * Discussed with cardio; no amiodarone needed * TSH, Free T4 are normal * ECHO 07/13/17: LV EF is WNL, moderate concentric LVH, Grade I abnormal relaxation pattern Status: Acute (3) ERCP Guidewire Perforation of Liver Capsule vs Peripheral Bile Duct Assessment and Plan: * s/p ERCP with removal of stent and sphincterotomy with Dr. Damian 07/13/17 * CXR 07/13/17 does not show air under diaphragm. * Chest CT 07/13/17 shows pneumobilia as well as possible free air beneath Right Hemidiaphragm within Paraesophagel soft tissues. * CT Abdomen/Pelvis 07/13/17 shows gas fluid and stranding in the subcapsular and extracapsular area around Left Lobe Liver. * CT Abdomen/Pelvis on 07/14/17 showed gas and fluid around left lobe liver and along inferior vena cava that is unchanged, no evidence of extravasation of oral contrast from stomach or duodenem. * Abdomen X Ray 07/16/17 showed NO obstruction. * CT Abdomen/Pelvis w/o contrast 07/19/17: Fluid re-identified, which appears similar in size and likely subcapsular in location. No nathan currently evident with in the collection, Small pneumobila. Moderate bilateral pleural effusions and associated consolidations. Small abomdinla ascites. Small pelvic free fluid. Thicken walled under distended urinary bladder which contains air, Pacheco catheter is present * GI Dr. Damian spoke with IR 07/15/17 and area is NOT amenable to percutaneous drainage. * Surgery Dr. Boyce consulted: no surgical intervention at this time and keep NPO with NGT for now * 07/21: patient intubated yesterday in light of events; with OGT * 07/22: Per GI note, "Repeat CT imaging reviewed by me showing no evidence of abdominal free air or worsening fluid collection, therefore no intervention warranted at this time If prolonged intubation time is anticipated, suggest NGT placement and beginning enteral feeding" Status: Acute (4) Enterococcus faecium Bacteremia * Infectious Disease (Dr. Langford) on the board * Started on Tigecycline 50 mg IV Q12H after 100 mg initial infusion (07/17/17) * Discontinued Meropenem, Ciprofloxicin, and Vancomycin (07/17/17) * 07/14/17: Enterococcus Faecium X2 * Blood Culture: 07/17/17: No growth after 48 hours (1 bottle negative for 4 days/the 2nd one supports Enterococcus Faecium) * Blood Culture: 07/20/17: No growth after 48 hours X2 * On contact isolation Status: Acute (5). Atrial Fibrillation/Elevated Troponin * Cardiology (Dr. Chau) on board-->help appreciated * Amiodarone 900mg IV Q 24H * Toprol XL 100mg PO daily (held) * The Atrial Fibrillation is likely secondary to the increased sympathetic tone from the Sepsis and the elevated Troponin likely secondary to the Atrial Fibrillation * Repeat EKG (NSR) 07/21/17 Status: Acute (6) Bilateral Pneumonia * CT Abdomen/Pelvis 07/13/17 showed bibasilar lingular and right middle lobe mild nonspecific infiltrates consistent with atelectasis/pneumonia * As patient was admitted to hospital within the last month (for Left Buttock Abscess) and has been on antibiotics, this is likely Health Care Associated Pneumonia with increased risk for Multidrug Resistence therefore he was treated with the following: * Meropenem 500 mg IV Q6H (07/14/17 through 07/17/17), Ciprofloxacin 400 mg IV Q12H (07/14/17 through 07/16/17),Vancomycin 1 gm IV Q24H (07/14/17 through ) and then patient started on Tigecycline as mentioned above * CT Abdomen/Pelvis w/o contrast 07/19/17: Fluid re-identified, which appears similar in size and likely subcapsular in location. No nathan currently evident with in the collection, Small pneumobila. Moderate bilateral pleural effusions and associated consolidations. Small abomdinla ascites. Small pelvic free fluid. Thicken walled under distended urinary bladder which contains air, Pacheco catheter is present * Chest xray (07/22/17): moderate left pleural effusion with consolidative opacification in the left mid to lower lung zone. trace right pleural effusion with adjacent right basilar consolidation. cardiomeglay. calcification at the aortic knob * Urine Legionella Ag is negative * Urine Strep pneumoniae Ag: non detected * Mycoplasma IgM is 81 (negative) Ig.07 * Influenza A/B is negative * Urine Culture is negative Status: Acute (7). Anion Gap Metabolic Acidosis * Sepsis: CODE SEPSIS was called 07/14/17 * See Assessment and Plans #2, #3, #5 * Due to the severe acidosis he was also started on D5W with 3 amps of NaHCO3 running at 100 ml/hour and this had resolved therefore the D5W NaHCO3 was discontinued 07/15/17. However the Acidosis returned and is likely secondary to the worsening Renal Function/Sepsis. Status: Acute (8). Hyperkalemia * Likely secondary to the Anion Gap Metabolic Acidosis * See Assessment and Plans #2 and #3 * Mild Status: Acute (9). CKD Stage III/Worsening Renal Failure/Hyponatremia * Nephrology Dr. Oconnell * The worsening Renal Function likely secondary to the Sepsis * Worsening Hyponatremia likely dilutional from the IVF initially used to help with the Renal Function. IVF have been discontinued. * Lasix 60 mg IV 2x/day started 07/18/17 to help with the Hyponatremia however there was no significant improvement on 07/19/17 * Despite the Lasix, renal function worsening 07/19/17. 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 Larsen to HD Nurse Ramon Garibay to start HD once Dialysis Catheter is placed by the Surgical Team which is planned for morning of 07/20/17. * 07/21: patient started dialysis on 07/20; 800 ML removed * 07/22: patient to have 2nd session of dialysis today; per discussion with nurse Status: Acute on Chronic (10). Headache with Hx CVA Assessment and Plan: * CT Head 07/13/17 was negative for bleed or acute process * If NO surgical/IR intervention will then restart ASA * held Plavix 75 mg PO 1x/day since 07/14/17-->07/22:will need to discuss with surgery if plavix can be restarted in light of stroke hx Status: Acute (11) AD (Alzheimer's disease) Assessment and Plan: * Aricept 10 mg PO daily. Status: Chronic (12) Choledocholithiasis Assessment and Plan: * s/p ERCP with removal of stent and sphincterotomy with Dr. Damian 07/13/17 * 07/22: Per GI note, "Repeat CT imaging reviewed by me showing no evidence of abdominal free air or worsening fluid collection, therefore no intervention warranted at this time If prolonged intubation time is anticipated, suggest NGT placement and beginning enteral feeding" Status: Acute (13) Anemia Assessment and Plan: * Likely secondary to Chronic Disease: CKD Stage III * Resume Ferrous Sulfate 325 mg PO daily. * HgB/Hct are stable Status: Chronic (14) Hx Left Gluteal abscess Assessment and Plan: * Was I&D by surgery team on 06/26/17 * Treated with Bactrim 800/160 PO Q12H for 7 days S/P discharge 06/27/17 Status: Chronic (15) HLD (hyperlipidemia) Assessment and Plan: * Lopid 600 mg PO BID * Patient takes Lipitor 80 mg PO HS which is not on formulary therefore Crestor 10 mg PO HS (renal dosed). Status: Chronic (16) HTN (hypertension) Assessment and Plan: * As the patient's blood pressure is on the low end and he is off Amiodarone Drip since 07/21, therefore the following medications are on HOLD: Amlodipine 10 mg PO daily, Metoprolol XL 100 mg PO daily, and Losartan 100 mg PO daily are all on HOLD * 07/22: patient is off Amiodarone drip since 07/21; but patient is back in atrial fibrillation but is due for second dialysis today. patient's anti- hypertensives remain on hold Status: Chronic (17) Hx of stroke without residual deficits Assessment and Plan: * CT Head 07/13/17 was negative for bleed or acute process * Crestor 10 mg PO HS (renal dosed). * Hold ASA as mentioned above * Hold Plavix 75 mg PO 1x/day since 07/14/17--->will need to discuss with surgery in regards to restart aspirin/plavix Status: Chronic (18) Diabetes Assessment and Plan: * Blood Glucose elevated at times: he is on clear liquids * ISS Q6H * Accuchecks Q6H Status: Chronic (19) History of hypothyroidism Assessment and Plan: * Levothyroxine 50 mcg PO daily * TSH, Free T4 are normal Status: Chronic (20) Overactive bladder Assessment and Plan: * Festerodine 8 mg PO 1x/day * Enlarged Prostate on CT Abdomen/Pelvis * PSA ordered 07/14/17 but I do not see results. I believe he can follow this up as an outpatient. Status: Chronic (21) Hx of glaucoma Assessment and Plan: * Patient's home med Travatan ggt not on formulary. * Started Xalatan ggt in bilateral eyes. Status: Chronic (22) Hx of gastroesophageal reflux (GERD) Assessment and Plan: * Protonix 40 mg IV daily Status: Chronic (23) Prophylactic measure Assessment and Plan: * Protonix 40 mg daily * SCDs * Hold chemical anticoagulation for now for reasons mentioned above * Ascorbic Acid 250 mg PO daily * Florastor 250 mg PO 2x/day * Zofran 4 mg IV Q6H PRN N/V * Morphine 0.5 mg IV Q6H PRN Severe Pain with Holding Parameters (hesitant to give anything more due to the low end of normal Blood Pressure) * Intubated on 07/20/17; on Pressor 07/21; off sedation; off amiodarone IV 07/21
--- NOTE | 2017-07-22 08:52 | CP.CCUPN ---
<TorieEffie L. - Last Filed: 07/22/17 14:02> CCU Subjective - Physician Review Subjective (Free Text): Patient seen and examined at bedside. Patient is intubated and ROS unobtainable due to patient's current clinical status. CCU Objective - Vital Signs / Intake & Output Vital Signs (Last 4 hours): Vital Signs Temp Pulse Resp BP Pulse Ox 07/22/17 08:40 122 H 22 96/48 L 89 L 07/22/17 08:37 118 H 16 86/44 L 100 07/22/17 08:25 124 H 18 72/51 L 97 07/22/17 08:19 133 H 20 77/44 L 97 07/22/17 08:07 121 H 17 90/40 L 99 07/22/17 08:00 98.1 F 07/22/17 07:57 83/43 L 07/22/17 07:42 115 H 19 77/40 L 07/22/17 07:00 104 H 18 100 07/22/17 06:41 111/53 L 07/22/17 06:00 87 19 100 07/22/17 05:42 116/49 L 07/22/17 05:00 85 14 99 Intake and Output (Last 8hrs): Intake & Output 07/21/17 07/22/17 07/22/17 22:59 06:59 14:59 Intake Total 711.3 361.3 58.5 Output Total 430 420 90 Balance 281.3 -58.7 -31.5 Weight 145 lb 15.136 oz Intake: IV 250 100 Intake, IV Amount 221.3 101.3 18.5 Right Medial Port 221.3 101.3 18.5 Internal Jugular Tube Feeding 140 160 40 Other 100 Output: Urine 430 420 90 Urethral ([place]acheco) 430 420 90 Other: # Bowel Movements 1 - Physical Exam Head: Positive for: Atraumatic, Normocephalic Pupils: Positive for: PERRL Extroacular Muscles: Positive for: EOMI Mouth: Positive for: Dry Respiratory/Chest: Positive for: Rhonchi. Negative for: Respiratory Distress, Accessory Muscle Use Cardiovascular: Positive for: Normal S1, S2 Abdomen: Positive for: Tenderness, Distention Lower Extremity: Negative for: Edema Neurological: Positive for: GCS=15 Skin: Positive for: Warm, Normal Color Psychiatric: Positive for: Alert. Negative for: Oriented x 3 - Medications Active Medications: Active Medications Generic Name Dose Route Start Last Admin Trade Name Freq PRN Reason Stop Dose Admin Albuterol/Ipratropium 3 ml 07/20/17 20:00 07/22/17 07:17 Duoneb 3 Mg/0.5 Mg (3 Ml) Ud INH 3 ml RQ6 DARINEL Administration Ascorbic Acid 250 mg 07/14/17 10:00 07/21/17 10:09 Vitamin C 250 Mg Tab PO 250 mg DAILY DARINEL Administration Benzocaine/Menthol 1 love 07/14/17 04:24 07/17/17 20:25 Cepacol Sore Throat MT 1 love Q2 PRN Administration Sore Throat Calcium Acetate 1,334 mg 07/20/17 11:16 07/21/17 18:10 Phoslo PO 1,334 mg TID DARINEL Administration Clopidogrel Bisulfate 75 mg 07/14/17 10:00 07/21/17 10:06 Plavix PO 75 mg DAILY DARINEL Administration Cyproheptadine HCl 4 mg 07/14/17 10:00 07/21/17 18:00 Periactin PO 4 mg BID DARINEL Administration Donepezil HCl 10 mg 07/13/17 22:00 07/21/17 22:16 Aricept PO 10 mg HS DARINEL Administration Ferrous Sulfate 325 mg 07/13/17 18:45 07/22/17 06:09 Feosol PO 325 mg Q12H DARINEL Administration Gemfibrozil 600 mg 07/14/17 10:00 07/21/17 18:11 Lopid PO 600 mg BID DARINEL Administration Heparin Sodium (Porcine) 5,000 units 07/21/17 22:00 07/21/17 22:15 Heparin SC 5,000 units Q12 DARINEL Administration Home Med 8 mg 07/14/17 10:00 Fesoterodine Fumarate [Toviaz] PO DAILY DARINEL Hydromorphone HCl 0.5 mg 07/21/17 00:18 07/22/17 08:07 Dilaudid IVP 0.5 mg Q6H PRN Administration Pain, severe (8-10) Tigecycline 50 mg/ Dextrose 100 mls @ 100 mls/hr 07/18/17 01:00 07/22/17 00: 28 IVPB 100 mls/hr Q12H DARINEL Administration Metronidazole 250 mg/ 50 mls @ 100 mls/hr 07/18/17 22:15 07/22/17 06:09 Miscellaneous IVPB 100 mls/hr Q8 DARINEL Administration Norepinephrine Bitartrate 4 mg 254 mls @ 15.24 mls/hr 07/20/17 15:42 03:00 / Sodium Chloride IV 2 mcg/min .[id number] PRN 7.62 mls/hr TITRATE PER MD ORDER Titration Protocol 4 MCG/MIN Propofol 1,000 mg in 100 mls @ 1.943 mls/hr 07/20/17 16:06 07/21/17 01:00 Diprivan IV 0 mcg/kg/min .Q24H PRN 0 mls/hr TITRATE PER MD ORDER Titration Protocol 5 MCG/KG/MIN Insulin Human Regular 0 unit 07/21/17 00:00 07/22/17 06:40 Novolin R SC 2 unit Q6 DARINEL Administration Protocol Latanoprost 0 ml 07/13/17 22:00 07/21/17 22:21 Xalatan Opht OU 2.5 ml HS DARINEL Administration Levothyroxine Sodium 50 mcg 07/14/17 06:30 07/22/17 06:09 Synthroid PO 50 mcg DAILY@0630 DARINEL Administration Lorazepam 2 mg 07/20/17 16:04 Ativan IVP Q4 PRN Anxiety Meclizine HCl 12.5 mg 07/14/17 10:00 07/21/17 18:11 Antivert PO 12.5 mg TID DARINEL Administration Metoprolol Succinate 100 mg 07/13/17 21:59 07/14/17 13:41 Toprol Xl PO 100 mg DAILY DARINEL Administration Ondansetron HCl 4 mg 07/14/17 00:38 Zofran Inj IVP Q6 PRN Nausea/Vomiting Pantoprazole Sodium 40 mg 07/14/17 10:00 07/21/17 10:08 Protonix Inj IVP 40 mg DAILY DARINEL Administration Rosuvastatin Calcium 10 mg 07/13/17 22:00 07/21/17 22:16 Crestor PO 10 mg HS DARINEL Administration Saccharomyces Boulardii 250 mg 07/14/17 10:00 07/21/17 18:10 Florastor PO 250 mg BID DARINEL Administration - Patient Studies Lab Studies: Microbiology Studies 07/20/17 03:55 Blood Culture - Preliminary Blood-Venous NO GROWTH AFTER 48 HOURS 07/20/17 03:55 Blood Culture - Preliminary Blood-Venous NO GROWTH AFTER 48 HOURS 07/17/17 08:00 Blood Culture - Preliminary Blood-Venous NO GROWTH AFTER 4 DAYS Lab Studies 07/22/17 07/22/17 07/22/17 Range/Units 06:23 06:22 06:22 WBC 13.3 H (4.8-10.8) K/uL RBC 3.08 L (4.40-5.90) Mil/uL Hgb 8.5 L (12.0-18.0) g/dL Hct 25.6 L (35.0-51.0) % MCV 83.0 (80.0-94.0) fL MCH 27.7 (27.0-31.0) pg MCHC 33.4 (33.0-37.0) g/dL RDW 15.3 H (11.5-14.5) % Plt Count 163 (130-400) K/uL MPV 8.4 (7.2-11.7) fL Neut % (Auto) 78.7 H (50.0-75.0) % Lymph % (Auto) 10.2 L (20.0-40.0) % [place] % (Auto) 9.5 (0.0-10.0) % Eos % (Auto) 1.0 (0.0-4.0) % Baso % (Auto) 0.6 (0.0-2.0) % Neut # 10.5 H (1.8-7.0) K/uL Lymph # 1.4 (1.0-4.3) K/uL [place] # 1.3 H (0.0-0.8) K/uL Eos # 0.1 (0.0-0.7) K/uL Baso # 0.1 (0.0-0.2) K/uL Neutrophils % (Manual) (50-75) % Band Neutrophils % (0-2) % Lymphocytes % (Manual) (20-40) % Monocytes % (Manual) (0-10) % Platelet Estimate (NORMAL) Polychromasia Hypochromasia (manual) Anisocytosis (manual) Puncture Site pCO2 (35-45) mm/Hg pO2 (80-100) mm/Hg HCO3 (21-28) mmol/L ABG pH (7.35-7.45) ABG Total CO2 (22-28) mmol/L ABG O2 Saturation (95-98) % ABG Base Excess (-2.0-3.0) mmol/L ABG Hemoglobin (11.7-17.4) g/dL ABG Carboxyhemoglobin (0.5-1.5) % POC ABG HHb (Measured) (0.0-5.0) % ABG Methemoglobin (0.0-3.0) % Nj Test A-a O2 Difference mm/Hg Respiratory Index Hgb O2 Saturation (95.0-98.0) % Vent Mode Mechanical Rate FiO2 % Tidal Volume PEEP Sodium 126 L (132-148) mmol/L Potassium 3.2 L (3.6-5.2) mmol/L Chloride 94 L (98-107) mmol/L Carbon Dioxide 19 L (22-30) mmol/L Anion Gap 16 (10-20) BUN 83 H (9-20) mg/dL Creatinine 4.6 H (0.8-1.5) mg/dL Est GFR ( Amer) 15 Est GFR (Non-Af Amer) 12 POC Glucose (mg/dL) 231 H (65-110) mg/dL Random Glucose 229 H (75-110) mg/dL Calcium 7.8 L (8.6-10.4) mg/dl Phosphorus 7.8 H (2.5-4.5) mg/dL Magnesium 2.3 (1.6-2.3) mg/dL Total Bilirubin 0.6 (0.2-1.3) mg/dL AST 46 (17-59) U/L ALT 43 (21-72) U/L Alkaline Phosphatase 98 (38-126) U/L Total Creatine Kinase (55-170) U/L CK-MB (Mass) (0.0-3.38) ng/mL Troponin I, Quant (0.00-0.120) ng/mL Total Protein 5.4 L (6.3-8.3) g/dL Albumin 2.5 L (3.5-5.0) g/dL Globulin 3.0 (2.2-3.9) gm/dL Albumin/Globulin Ratio 0.8 L (1.0-2.1) 07/22/17 07/21/17 07/21/17 Range/Units 05:27 23:41 17:42 WBC (4.8-10.8) K/uL RBC (4.40-5.90) Mil/uL Hgb (12.0-18.0) g/dL Hct (35.0-51.0) % MCV (80.0-94.0) fL MCH (27.0-31.0) pg MCHC (33.0-37.0) g/dL RDW (11.5-14.5) % Plt Count (130-400) K/uL MPV (7.2-11.7) fL Neut % (Auto) (50.0-75.0) % Lymph % (Auto) (20.0-40.0) % [place] % (Auto) (0.0-10.0) % Eos % (Auto) (0.0-4.0) % Baso % (Auto) (0.0-2.0) % Neut # (1.8-7.0) K/uL Lymph # (1.0-4.3) K/uL [place] # (0.0-0.8) K/uL Eos # (0.0-0.7) K/uL Baso # (0.0-0.2) K/uL Neutrophils % (Manual) (50-75) % Band Neutrophils % (0-2) % Lymphocytes % (Manual) (20-40) % Monocytes % (Manual) (0-10) % Platelet Estimate (NORMAL) Polychromasia Hypochromasia (manual) Anisocytosis (manual) Puncture Site R brach pCO2 27 L (35-45) mm/Hg pO2 86 (80-100) mm/Hg HCO3 23.8 (21-28) mmol/L ABG pH 7.50 H (7.35-7.45) ABG Total CO2 21.9 L (22-28) mmol/L ABG O2 Saturation 98.4 H (95-98) % ABG Base Excess -1.5 (-2.0-3.0) mmol/L ABG Hemoglobin 8.8 L (11.7-17.4) g/dL ABG Carboxyhemoglobin 1.4 (0.5-1.5) % POC ABG HHb (Measured) 1.6 (0.0-5.0) % ABG Methemoglobin 1.4 (0.0-3.0) % Nj Test Na A-a O2 Difference 308.0 mm/Hg Respiratory Index 3.6 Hgb O2 Saturation 95.6 (95.0-98.0) % Vent Mode Prvc Mechanical Rate 16 FiO2 60.0 % Tidal Volume 500 PEEP 5 Sodium (132-148) mmol/L Potassium (3.6-5.2) mmol/L Chloride (98-107) mmol/L Carbon Dioxide (22-30) mmol/L Anion Gap (10-20) BUN (9-20) mg/dL Creatinine (0.8-1.5) mg/dL Est GFR ( Amer) Est GFR (Non-Af Amer) POC Glucose (mg/dL) 247 H 249 H (65-110) mg/dL Random Glucose (75-110) mg/dL Calcium (8.6-10.4) mg/dl Phosphorus (2.5-4.5) mg/dL Magnesium (1.6-2.3) mg/dL Total Bilirubin (0.2-1.3) mg/dL AST (17-59) U/L ALT (21-72) U/L Alkaline Phosphatase (38-126) U/L Total Creatine Kinase (55-170) U/L CK-MB (Mass) (0.0-3.38) ng/mL Troponin I, Quant (0.00-0.120) ng/mL Total Protein (6.3-8.3) g/dL Albumin (3.5-5.0) g/dL Globulin (2.2-3.9) gm/dL Albumin/Globulin Ratio (1.0-2.1) 07/21/17 07/21/17 07/21/17 Range/Units 12:48 11:37 06:54 WBC (4.8-10.8) K/uL RBC (4.40-5.90) Mil/uL Hgb (12.0-18.0) g/dL Hct (35.0-51.0) % MCV (80.0-94.0) fL MCH (27.0-31.0) pg MCHC (33.0-37.0) g/dL RDW (11.5-14.5) % Plt Count (130-400) K/uL MPV (7.2-11.7) fL Neut % (Auto) (50.0-75.0) % Lymph % (Auto) (20.0-40.0) % [place] % (Auto) (0.0-10.0) % Eos % (Auto) (0.0-4.0) % Baso % (Auto) (0.0-2.0) % Neut # (1.8-7.0) K/uL Lymph # (1.0-4.3) K/uL [place] # (0.0-0.8) K/uL Eos # (0.0-0.7) K/uL Baso # (0.0-0.2) K/uL Neutrophils % (Manual) 85 H (50-75) % Band Neutrophils % 2 (0-2) % Lymphocytes % (Manual) 4 L (20-40) % Monocytes % (Manual) 9 (0-10) % Platelet Estimate Normal (NORMAL) Polychromasia Slight Hypochromasia (manual) Slight Anisocytosis (manual) Slight Puncture Site pCO2 (35-45) mm/Hg pO2 (80-100) mm/Hg HCO3 (21-28) mmol/L ABG pH (7.35-7.45) ABG Total CO2 (22-28) mmol/L ABG O2 Saturation (95-98) % ABG Base Excess (-2.0-3.0) mmol/L ABG Hemoglobin (11.7-17.4) g/dL ABG Carboxyhemoglobin (0.5-1.5) % POC ABG HHb (Measured) (0.0-5.0) % ABG Methemoglobin (0.0-3.0) % Nj Test A-a O2 Difference mm/Hg Respiratory Index Hgb O2 Saturation (95.0-98.0) % Vent Mode Mechanical Rate FiO2 % Tidal Volume PEEP Sodium (132-148) mmol/L Potassium (3.6-5.2) mmol/L Chloride (98-107) mmol/L Carbon Dioxide (22-30) mmol/L Anion Gap (10-20) BUN (9-20) mg/dL Creatinine (0.8-1.5) mg/dL Est GFR ( Amer) Est GFR (Non-Af Amer) POC Glucose (mg/dL) 250 H (65-110) mg/dL Random Glucose (75-110) mg/dL Calcium (8.6-10.4) mg/dl Phosphorus (2.5-4.5) mg/dL Magnesium (1.6-2.3) mg/dL Total Bilirubin (0.2-1.3) mg/dL AST (17-59) U/L ALT (21-72) U/L Alkaline Phosphatase (38-126) U/L Total Creatine Kinase 567 H (55-170) U/L CK-MB (Mass) 5.57 H (0.0-3.38) ng/mL Troponin I, Quant 0.4900 H* (0.00-0.120) ng/mL Total Protein (6.3-8.3) g/dL Albumin (3.5-5.0) g/dL Globulin (2.2-3.9) gm/dL Albumin/Globulin Ratio (1.0-2.1) Laboratory Results - last 24 hr 07/21/17 07/21/17 07/21/17 06:54 11:37 12:48 WBC RBC Hgb Hct MCV MCH MCHC RDW Plt Count MPV Neut % (Auto) Lymph % (Auto) [place] % (Auto) Eos % (Auto) Baso % (Auto) Neut # Lymph # [place] # Eos # Baso # Neutrophils % (Manual) 85 H Band Neutrophils % 2 Lymphocytes % (Manual) 4 L Monocytes % (Manual) 9 Platelet Estimate Normal Polychromasia Slight Hypochromasia (manual) Slight Anisocytosis (manual) Slight Puncture Site pCO2 pO2 HCO3 ABG pH ABG Total CO2 ABG O2 Saturation ABG Base Excess ABG Hemoglobin ABG Carboxyhemoglobin POC ABG HHb (Measured) ABG Methemoglobin Nj Test A-a O2 Difference Respiratory Index Hgb O2 Saturation Vent Mode Mechanical Rate FiO2 Tidal Volume PEEP Sodium Potassium Chloride Carbon Dioxide Anion Gap BUN Creatinine Est GFR ( Amer) Est GFR (Non-Af Amer) POC Glucose (mg/dL) 250 H Random Glucose Calcium Phosphorus Magnesium Total Bilirubin AST ALT Alkaline Phosphatase Total Creatine Kinase 567 H CK-MB (Mass) 5.57 H Troponin I, Quant 0.4900 H* Total Protein Albumin Globulin Albumin/Globulin Ratio 11/07/17 11/07/17 11/08/17 17:42 23:41 05:27 WBC RBC Hgb Hct MCV MCH MCHC RDW Plt Count MPV Neut % (Auto) Lymph % (Auto) [place] % (Auto) Eos % (Auto) Baso % (Auto) Neut # Lymph # [place] # Eos # Baso # Neutrophils % (Manual) Band Neutrophils % Lymphocytes % (Manual) Monocytes % (Manual) Platelet Estimate Polychromasia Hypochromasia (manual) Anisocytosis (manual) Puncture Site R brach pCO2 27 L pO2 86 HCO3 23.8 ABG pH 7.50 H ABG Total CO2 21.9 L ABG O2 Saturation 98.4 H ABG Base Excess -1.5 ABG Hemoglobin 8.8 L ABG Carboxyhemoglobin 1.4 POC ABG HHb (Measured) 1.6 ABG Methemoglobin 1.4 Nj Test Na A-a O2 Difference 308.0 Respiratory Index 3.6 Hgb O2 Saturation 95.6 Vent Mode Prvc Mechanical Rate 16 FiO2 60.0 Tidal Volume 500 PEEP 5 Sodium Potassium Chloride Carbon Dioxide Anion Gap BUN Creatinine Est GFR ( Amer) Est GFR (Non-Af Amer) POC Glucose (mg/dL) 249 H 247 H Random Glucose Calcium Phosphorus Magnesium Total Bilirubin AST ALT Alkaline Phosphatase Total Creatine Kinase CK-MB (Mass) Troponin I, Quant Total Protein Albumin Globulin Albumin/Globulin Ratio 07/22/17 07/22/17 07/22/17 06:22 06:22 06:23 WBC 13.3 H RBC 3.08 L Hgb 8.5 L Hct 25.6 L MCV 83.0 MCH 27.7 MCHC 33.4 RDW 15.3 H Plt Count 163 MPV 8.4 Neut % (Auto) 78.7 H Lymph % (Auto) 10.2 L [place] % (Auto) 9.5 Eos % (Auto) 1.0 Baso % (Auto) 0.6 Neut # 10.5 H Lymph # 1.4 [place] # 1.3 H Eos # 0.1 Baso # 0.1 Neutrophils % (Manual) Band Neutrophils % Lymphocytes % (Manual) Monocytes % (Manual) Platelet Estimate Polychromasia Hypochromasia (manual) Anisocytosis (manual) Puncture Site pCO2 pO2 HCO3 ABG pH ABG Total CO2 ABG O2 Saturation ABG Base Excess ABG Hemoglobin ABG Carboxyhemoglobin POC ABG HHb (Measured) ABG Methemoglobin Nj Test A-a O2 Difference Respiratory Index Hgb O2 Saturation Vent Mode Mechanical Rate FiO2 Tidal Volume PEEP Sodium 126 L Potassium 3.2 L Chloride 94 L Carbon Dioxide 19 L Anion Gap 16 BUN 83 H Creatinine 4.6 H Est GFR ( Amer) 15 Est GFR (Non-Af Amer) 12 POC Glucose (mg/dL) 231 H Random Glucose 229 H Calcium 7.8 L Phosphorus 7.8 H Magnesium 2.3 Total Bilirubin 0.6 AST 46 ALT 43 Alkaline Phosphatase 98 Total Creatine Kinase CK-MB (Mass) Troponin I, Quant Total Protein 5.4 L Albumin 2.5 L Globulin 3.0 Albumin/Globulin Ratio 0.8 L Fingerstick Blood Sugar Results: 231 Review of Systems - Review of Systems Systems not reviewed;Unavailable: Intubated Critical Care Progress Note - Nutrition Nutrition: Nutrition Category Date Time Status NPO Diet [DIET] Diets 07/20/17 Dinner Active Assessment/Plan - Assessment and Plan (Free Text) Assessment: 82 M w/ PMHx of Diabetes, HLD, HTN, Hypothyroidism, CKD Stage 3, Alzheimer's Dementia, 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 Patient POD#2 s/p left internal jugular vein permacath insertion, intubated s/p cardiac arrest. Neuro: hx Alzheimer's dementia -Aricept 10 mg PO HS -CT head (07/13): no acute intracranial hemorrhage, or suspicious mass effect -Propofol for sedation secondary to intubation Cardio: HTN, hx CVA -Cardiology consulted (Dr. Chau), help appreciated -Home blood pressure medications held because blood pressure low: Amlodipine 10 mg po daily, Metoprolol Succinate 100 mg po daily, Losartan 100 mg PO daily -Plavix 75mg po daily (restarted on 07/22) -Crestor 10 mg po HS -Lipitor 80 mg po HS -Gemfibrozil 600 mg po BID -Metoprolol held due to hypotension -Levophed drip stopped on 07/22/17 -TSH and free T4 WNL - echo report from 07/13/17 : left ventricular ejection fraction is within the normal range (60%). moderate concentric left ventricular hypertrophy. transmitral doppler flow pattern is gradeI- abnormal relaxation pattern. Mitral annular calcification is mild. Mitral regurgitation is trace. -Patient went into a fib overnight, started on cardizem drip and switched to 120mg cardizem po daily -Troponin I (07/20-07/21): .[phone],.[phone], .4900 -as per Dr. Chau probable Troponin elevation due to coronary hypoperfusion from shock, likely a septic etiology, not a primary event. -Code Blue (07/20/17) called at 15:37, two epis, norepi drip started, 1 bicarb, and 1 calcium gluconate given before ROSC at 15:39 Pulm: bilateral pneumonia -CT Abdomen/Pelvis 07/13/17 showed bibasilar lingular and right middle lobe mild nonspecific infiltrates consistent with atelectasis/pneumonia -CXR 07/21/17: confluent opacification of the left mid to lower lung zone as well as right lung base. Linear lucency along the lateral margin of the left lower hemithorax which may represent Mach artifact. bilateral hilar prominence. small left pleural effusion. biapical pleural thickening. cardiomegaly. -Duonebs q6h -negative influenza A/B, negative urine Legionella -mycoplasma IgM 81, IgG 1.07 -patient to be extubated on 07/22/17 GI: abdominal pain likely secondary to gas/ fluid around liver - CT C/A/P showed free air under the right hemidiaphragm and extrahepatic CBD pneumobilia - Surgery consulted (Dr. Boyce) - help appreciated -NPO -NGT in place -CT abdomen and pelvis with IV and PO contrast- showed gas and fluid around left lobe liver and along inferior vena cava that is unchanged, no evidence of extravasation of oral contrast from stomach or duodenem. -Abdominal u/s (07/15): limited sonographic evaluation of the liver for purposes of drainage and did not show the subdiaphragmatic fluid collection see in previous CT -Abdominal xray (07/16): colonic contrast, no mechanical obstruction suggested. -no intervention by IR at this time -constipation, dulcolax 10 mg once ordered : hx overactive bladder -Festerodine 8 mg PO 1x/day held -Enlarged Prostate on CT Abdomen/Pelvis -PSA: 23.3 Nephro: CKD stage 3, possible acute on chronic, POD 2 s/p left internal jugular vein permacath insertion - BUN 83, Cr 4.6 - 2+ urine protein and 2+ urine glucose on U/A 07/14/17 - Nephrology consulted (Dr. Oconnell) -IV lasix 20 mg BID -Phoslo TID -Nepro feeds with no free water as per Dr. Andrew -dialysis today Endo: hx of diabetes, hypothyroidism - ISS -accuchecks -Synthroid 50 mcg po daily -TSH and T4 WNL ID: Sepsis secondary to likely biliary or hepatic perforation from recent ERCP - Code sepsis called 07/14 - HCAP pneumonia suspected given recent hospitalization and antibiotic use for buttock abscess - Infectious Disease consulted (Dr. Langford), help appreciated -urine cultures: no growth -Negative MRSA -blood culture: gram positive cocci, Enterococcus Faecium -Flagyl 250mg q8h -repeat blood culture (07/20) : negative -- continue Tigecycline 50mg q12h PPX: DVT: SCD's, Heparin 5000 u sc q12h GI: Protonix 40 mg IV daily florastor <Mina Kowalski S - Last Filed: 07/22/17 16:47> CCU Objective - Vital Signs / Intake & Output Vital Signs (Last 4 hours): Vital Signs Temp Pulse Resp BP Pulse Ox 07/22/17 16:00 98.2 F 88 21 129/48 L 100 07/22/17 15:30 92 H 23 127/54 L 95 07/22/17 15:00 89 24 118/53 L 100 07/22/17 14:30 87 24 120/51 L 100 07/22/17 13:55 86 16 124/51 L 99 07/22/17 13:40 87 18 121/53 L 100 07/22/17 13:25 85 17 131/50 L 100 07/22/17 13:10 87 22 119/55 L 100 07/22/17 13:00 93 H 26 H 99 07/22/17 12:56 90 28 H 144/54 L 100 Intake and Output (Last 8hrs): Intake & Output 07/22/17 07/22/17 07/22/17 06:59 14:59 22:59 Intake Total 361.3 569.5 Output Total 420 330 70 Balance -58.7 239.5 -70 Weight 145 lb 15.136 oz Intake: IV 100 174 Intake, IV Amount 101.3 235.5 Right Distal Port 150 Internal Jugular Right Medial Port 101.3 85.5 Internal Jugular Tube Feeding 160 160 Output: Urine 420 330 70 Urethral (Pacheco) 420 330 70 Other: # Bowel Movements 1 - Medications Active Medications: Active Medications Generic Name Dose Route Start Last Admin Trade Name Freq PRN Reason Stop Dose Admin Albuterol/Ipratropium 3 ml 07/20/17 20:00 07/22/17 13:03 Duoneb 3 Mg/0.5 Mg (3 Ml) Ud INH 3 ml RQ6 DARINEL Administration Ascorbic Acid 250 mg 07/14/17 10:00 07/22/17 11:59 Vitamin C 250 Mg Tab PO 250 mg DAILY DARINEL Administration Benzocaine/Menthol 1 love 07/14/17 04:24 07/17/17 20:25 Cepacol Sore Throat MT 1 love Q2 PRN Administration Sore Throat Calcium Acetate 1,334 mg 07/20/17 11:16 07/22/17 13:00 Phoslo PO 1,334 mg TID DARINEL Administration Clopidogrel Bisulfate 75 mg 07/14/17 10:00 07/22/17 12:00 Plavix PO 75 mg DAILY DARINEL Administration Cyproheptadine HCl 4 mg 07/14/17 10:00 07/22/17 12:00 Periactin PO 4 mg BID DARINEL Administration Donepezil HCl 10 mg 07/13/17 22:00 07/21/17 22:16 Aricept PO 10 mg HS DARINEL Administration Ferrous Sulfate 325 mg 07/13/17 18:45 07/22/17 06:09 Feosol PO 325 mg Q12H DARINEL Administration Gemfibrozil 600 mg 07/14/17 10:00 07/22/17 12:00 Lopid PO 600 mg BID DARINEL Administration Heparin Sodium (Porcine) 5,000 units 07/21/17 22:00 07/22/17 12:00 Heparin SC 5,000 units Q12 DARINEL Administration Home Med 8 mg 07/14/17 10:00 Fesoterodine Fumarate [Toviaz] PO DAILY DARINEL Hydromorphone HCl 0.5 mg 07/21/17 00:18 07/22/17 14:11 Dilaudid IVP 0.5 mg Q6H PRN Administration Pain, severe (8-10) Tigecycline 50 mg/ Dextrose 100 mls @ 100 mls/hr 07/18/17 01:00 07/22/17 12: 01 IVPB 100 mls/hr Q12H DARINEL Administration Metronidazole 250 mg/ 50 mls @ 100 mls/hr 07/18/17 22:15 07/22/17 13:01 Miscellaneous IVPB 100 mls/hr Q8 DARINEL Administration Norepinephrine Bitartrate 4 mg 254 mls @ 15.24 mls/hr 07/20/17 15:42 13:30 / Sodium Chloride IV 0 mcg/min .[id number] PRN 0 mls/hr TITRATE PER MD ORDER Titration Protocol 4 MCG/MIN Propofol 1,000 mg in 100 mls @ 1.943 mls/hr 07/20/17 16:06 07/21/17 01:00 Diprivan IV 0 mcg/kg/min .Q24H PRN 0 mls/hr TITRATE PER MD ORDER Titration Protocol 5 MCG/KG/MIN Insulin Human Regular 0 unit 07/22/17 09:39 07/22/17 11:49 Novolin R SC 6 unit Q6 DARINEL Administration Protocol Latanoprost 0 ml 07/13/17 22:00 07/21/17 22:21 Xalatan Opht OU 2.5 ml HS DARINEL Administration Levothyroxine Sodium 50 mcg 07/14/17 06:30 07/22/17 06:09 Synthroid PO 50 mcg DAILY@0630 DARINEL Administration Lorazepam 2 mg 07/20/17 16:04 Ativan IVP Q4 PRN Anxiety Meclizine HCl 12.5 mg 07/14/17 10:00 07/22/17 13:00 Antivert PO 12.5 mg TID DARINEL Administration Metoprolol Succinate 100 mg 07/13/17 21:59 07/14/17 13:41 Toprol Xl PO 100 mg DAILY DARINEL Administration Ondansetron HCl 4 mg 07/14/17 00:38 Zofran Inj IVP Q6 PRN Nausea/Vomiting Pantoprazole Sodium 40 mg 07/14/17 10:00 07/22/17 11:59 Protonix Inj IVP 40 mg DAILY DARINEL Administration Rosuvastatin Calcium 10 mg 07/13/17 22:00 07/21/17 22:16 Crestor PO 10 mg HS DARINEL Administration Saccharomyces Boulardii 250 mg 07/14/17 10:00 07/22/17 12:01 Florastor PO 250 mg BID DARINEL Administration - Patient Studies Lab Studies: Microbiology Studies 07/20/17 03:55 Blood Culture - Preliminary Blood-Venous NO GROWTH AFTER 48 HOURS 07/20/17 03:55 Blood Culture - Preliminary Blood-Venous NO GROWTH AFTER 48 HOURS 07/17/17 08:00 Blood Culture - Preliminary Blood-Venous NO GROWTH AFTER 4 DAYS Lab Studies 07/22/17 07/22/17 07/22/17 Range/Units 11: 06:23 06:22 WBC 13.3 H (4.8-10.8) K/uL RBC 3.08 L (4.40-5.90) Mil/uL Hgb 8.5 L (12.0-18.0) g/dL Hct 25.6 L (35.0-51.0) % MCV 83.0 (80.0-94.0) fL MCH 27.7 (27.0-31.0) pg MCHC 33.4 (33.0-37.0) g/dL RDW 15.3 H (11.5-14.5) % Plt Count 163 (130-400) K/uL MPV 8.4 (7.2-11.7) fL Neut % (Auto) 78.7 H (50.0-75.0) % Lymph % (Auto) 10.2 L (20.0-40.0) % [place] % (Auto) 9.5 (0.0-10.0) % Eos % (Auto) 1.0 (0.0-4.0) % Baso % (Auto) 0.6 (0.0-2.0) % Neut # 10.5 H (1.8-7.0) K/uL Lymph # 1.4 (1.0-4.3) K/uL [place] # 1.3 H (0.0-0.8) K/uL Eos # 0.1 (0.0-0.7) K/uL Baso # 0.1 (0.0-0.2) K/uL Puncture Site pCO2 (35-45) mm/Hg pO2 (80-100) mm/Hg HCO3 (21-28) mmol/L ABG pH (7.35-7.45) ABG Total CO2 (22-28) mmol/L ABG O2 Saturation (95-98) % ABG Base Excess (-2.0-3.0) mmol/L ABG Hemoglobin (11.7-17.4) g/dL ABG Carboxyhemoglobin (0.5-1.5) % POC ABG HHb (Measured) (0.0-5.0) % ABG Methemoglobin (0.0-3.0) % Nj Test A-a O2 Difference mm/Hg Respiratory Index Hgb O2 Saturation (95.0-98.0) % Vent Mode Mechanical Rate FiO2 % Tidal Volume PEEP Sodium (132-148) mmol/L Potassium (3.6-5.2) mmol/L Chloride (98-107) mmol/L Carbon Dioxide (22-30) mmol/L Anion Gap (10-20) BUN (9-20) mg/dL Creatinine (0.8-1.5) mg/dL Est GFR ( Amer) Est GFR (Non-Af Amer) POC Glucose (mg/dL) 254 H 231 H (65-110) mg/dL Random Glucose (75-110) mg/dL Calcium (8.6-10.4) mg/dl Phosphorus (2.5-4.5) mg/dL Magnesium (1.6-2.3) mg/dL Total Bilirubin (0.2-1.3) mg/dL AST (17-59) U/L ALT (21-72) U/L Alkaline Phosphatase (38-126) U/L Total Protein (6.3-8.3) g/dL Albumin (3.5-5.0) g/dL Globulin (2.2-3.9) gm/dL Albumin/Globulin Ratio (1.0-2.1) 07/22/17 07/22/17 07/21/17 Range/Units 06:22 05:27 23:41 WBC (4.8-10.8) K/uL RBC (4.40-5.90) Mil/uL Hgb (12.0-18.0) g/dL Hct (35.0-51.0) % MCV (80.0-94.0) fL MCH (27.0-31.0) pg MCHC (33.0-37.0) g/dL RDW (11.5-14.5) % Plt Count (130-400) K/uL MPV (7.2-11.7) fL Neut % (Auto) (50.0-75.0) % Lymph % (Auto) (20.0-40.0) % [place] % (Auto) (0.0-10.0) % Eos % (Auto) (0.0-4.0) % Baso % (Auto) (0.0-2.0) % Neut # (1.8-7.0) K/uL Lymph # (1.0-4.3) K/uL Sanborn # (0.0-0.8) K/uL Eos # (0.0-0.7) K/uL Baso # (0.0-0.2) K/uL Puncture Site R brach pCO2 27 L (35-45) mm/Hg pO2 86 (80-100) mm/Hg HCO3 23.8 (21-28) mmol/L ABG pH 7.50 H (7.35-7.45) ABG Total CO2 21.9 L (22-28) mmol/L ABG O2 Saturation 98.4 H (95-98) % ABG Base Excess -1.5 (-2.0-3.0) mmol/L ABG Hemoglobin 8.8 L (11.7-17.4) g/dL ABG Carboxyhemoglobin 1.4 (0.5-1.5) % POC ABG HHb (Measured) 1.6 (0.0-5.0) % ABG Methemoglobin 1.4 (0.0-3.0) % Nj Test Na A-a O2 Difference 308.0 mm/Hg Respiratory Index 3.6 Hgb O2 Saturation 95.6 (95.0-98.0) % Vent Mode Prvc Mechanical Rate 16 FiO2 60.0 % Tidal Volume 500 PEEP 5 Sodium 126 L (132-148) mmol/L Potassium 3.2 L (3.6-5.2) mmol/L Chloride 94 L (98-107) mmol/L Carbon Dioxide 19 L (22-30) mmol/L Anion Gap 16 (10-20) BUN 83 H (9-20) mg/dL Creatinine 4.6 H (0.8-1.5) mg/dL Est GFR ( Amer) 15 Est GFR (Non-Af Amer) 12 POC Glucose (mg/dL) 247 H (65-110) mg/dL Random Glucose 229 H (75-110) mg/dL Calcium 7.8 L (8.6-10.4) mg/dl Phosphorus 7.8 H (2.5-4.5) mg/dL Magnesium 2.3 (1.6-2.3) mg/dL Total Bilirubin 0.6 (0.2-1.3) mg/dL AST 46 (17-59) U/L ALT 43 (21-72) U/L Alkaline Phosphatase 98 (38-126) U/L Total Protein 5.4 L (6.3-8.3) g/dL Albumin 2.5 L (3.5-5.0) g/dL Globulin 3.0 (2.2-3.9) gm/dL Albumin/Globulin Ratio 0.8 L (1.0-2.1) 07/21/17 Range/Units 17:42 WBC (4.8-10.8) K/uL RBC (4.40-5.90) Mil/uL Hgb (12.0-18.0) g/dL Hct (35.0-51.0) % MCV (80.0-94.0) fL MCH (27.0-31.0) pg MCHC (33.0-37.0) g/dL RDW (11.5-14.5) % Plt Count (130-400) K/uL MPV (7.2-11.7) fL Neut % (Auto) (50.0-75.0) % Lymph % (Auto) (20.0-40.0) % Sanborn % (Auto) (0.0-10.0) % Eos % (Auto) (0.0-4.0) % Baso % (Auto) (0.0-2.0) % Neut # (1.8-7.0) K/uL Lymph # (1.0-4.3) K/uL Sanborn # (0.0-0.8) K/uL Eos # (0.0-0.7) K/uL Baso # (0.0-0.2) K/uL Puncture Site pCO2 (35-45) mm/Hg pO2 (80-100) mm/Hg HCO3 (21-28) mmol/L ABG pH (7.35-7.45) ABG Total CO2 (22-28) mmol/L ABG O2 Saturation (95-98) % ABG Base Excess (-2.0-3.0) mmol/L ABG Hemoglobin (11.7-17.4) g/dL ABG Carboxyhemoglobin (0.5-1.5) % POC ABG HHb (Measured) (0.0-5.0) % ABG Methemoglobin (0.0-3.0) % Nj Test A-a O2 Difference mm/Hg Respiratory Index Hgb O2 Saturation (95.0-98.0) % Vent Mode Mechanical Rate FiO2 % Tidal Volume PEEP Sodium (132-148) mmol/L Potassium (3.6-5.2) mmol/L Chloride (98-107) mmol/L Carbon Dioxide (22-30) mmol/L Anion Gap (10-20) BUN (9-20) mg/dL Creatinine (0.8-1.5) mg/dL Est GFR ( Amer) Est GFR (Non-Af Amer) POC Glucose (mg/dL) 249 H (65-110) mg/dL Random Glucose (75-110) mg/dL Calcium (8.6-10.4) mg/dl Phosphorus (2.5-4.5) mg/dL Magnesium (1.6-2.3) mg/dL Total Bilirubin (0.2-1.3) mg/dL AST (17-59) U/L ALT (21-72) U/L Alkaline Phosphatase (38-126) U/L Total Protein (6.3-8.3) g/dL Albumin (3.5-5.0) g/dL Globulin (2.2-3.9) gm/dL Albumin/Globulin Ratio (1.0-2.1) Laboratory Results - last 24 hr 07/21/17 07/21/17 07/22/17 17:42 23:41 05:27 WBC RBC Hgb Hct MCV MCH MCHC RDW Plt Count MPV Neut % (Auto) Lymph % (Auto) Sanborn % (Auto) Eos % (Auto) Baso % (Auto) Neut # Lymph # [place] # Eos # Baso # Puncture Site R brach pCO2 27 L pO2 86 HCO3 23.8 ABG pH 7.50 H ABG Total CO2 21.9 L ABG O2 Saturation 98.4 H ABG Base Excess -1.5 ABG Hemoglobin 8.8 L ABG Carboxyhemoglobin 1.4 POC ABG HHb (Measured) 1.6 ABG Methemoglobin 1.4 Nj Test Na A-a O2 Difference 308.0 Respiratory Index 3.6 Hgb O2 Saturation 95.6 Vent Mode Prvc Mechanical Rate 16 FiO2 60.0 Tidal Volume 500 PEEP 5 Sodium Potassium Chloride Carbon Dioxide Anion Gap BUN Creatinine Est GFR ( Amer) Est GFR (Non-Af Amer) POC Glucose (mg/dL) 249 H 247 H Random Glucose Calcium Phosphorus Magnesium Total Bilirubin AST ALT Alkaline Phosphatase Total Protein Albumin Globulin Albumin/Globulin Ratio 07/22/17 07/22/17 07/22/17 06:22 06:22 06:23 WBC 13.3 H RBC 3.08 L Hgb 8.5 L Hct 25.6 L MCV 83.0 MCH 27.7 MCHC 33.4 RDW 15.3 H Plt Count 163 MPV 8.4 Neut % (Auto) 78.7 H Lymph % (Auto) 10.2 L San[place] % (Auto) 9.5 Eos % (Auto) 1.0 Baso % (Auto) 0.6 Neut # 10.5 H Lymph # 1.4 Sanborn # 1.3 H Eos # 0.1 Baso # 0.1 Puncture Site pCO2 pO2 HCO3 ABG pH ABG Total CO2 ABG O2 Saturation ABG Base Excess ABG Hemoglobin ABG Carboxyhemoglobin POC ABG HHb (Measured) ABG Methemoglobin Nj Test A-a O2 Difference Respiratory Index Hgb O2 Saturation Vent Mode Mechanical Rate FiO2 Tidal Volume PEEP Sodium 126 L Potassium 3.2 L Chloride 94 L Carbon Dioxide 19 L Anion Gap 16 BUN 83 H Creatinine 4.6 H Est GFR ( Amer) 15 Est GFR (Non-Af Amer) 12 POC Glucose (mg/dL) 231 H Random Glucose 229 H Calcium 7.8 L Phosphorus 7.8 H Magnesium 2.3 Total Bilirubin 0.6 AST 46 ALT 43 Alkaline Phosphatase 98 Total Protein 5.4 L Albumin 2.5 L Globulin 3.0 Albumin/Globulin Ratio 0.8 L 07/22/17 11:07 WBC RBC Hgb Hct MCV MCH MCHC RDW Plt Count MPV Neut % (Auto) Lymph % (Auto) San[place] % (Auto) Eos % (Auto) Baso % (Auto) Neut # Lymph # [place] # Eos # Baso # Puncture Site pCO2 pO2 HCO3 ABG pH ABG Total CO2 ABG O2 Saturation ABG Base Excess ABG Hemoglobin ABG Carboxyhemoglobin POC ABG HHb (Measured) ABG Methemoglobin Nj Test A-a O2 Difference Respiratory Index Hgb O2 Saturation Vent Mode Mechanical Rate FiO2 Tidal Volume PEEP Sodium Potassium Chloride Carbon Dioxide Anion Gap BUN Creatinine Est GFR ( Amer) Est GFR (Non-Af Amer) POC Glucose (mg/dL) 254 H Random Glucose Calcium Phosphorus Magnesium Total Bilirubin AST ALT Alkaline Phosphatase Total Protein Albumin Globulin Albumin/Globulin Ratio Critical Care Progress Note - Nutrition Nutrition: Nutrition Category Date Time Status NPO Diet [DIET] Diets 07/20/17 Dinner Active Attending/Attestation - Attestation I have personally seen and examined this patient.: Yes I have fully participated in the care of the patient.: Yes I have reviewed all pertinent clinical information: Yes Notes (Text): 07/22/17 16:46 Patient seen and examined in the intensive care unit. Case discussed with staff in the morning rounds. Patient extubated after weaning trial Status post hemodialysis Continue antibiotics as per infectious disease Patient is awake and responsive Off pressors Follow-up GI recommendation
--- NOTE | 2017-07-22 10:10 | CP.PCM.PN ---
<Dianne Salinas - Last Filed: 07/22/17 15:35> Subjective - Date & Time of Evaluation Date of Evaluation: 07/22/17 Time of Evaluation: 10:08 - Subjective Subjective: Gastroenterology Fellow/PGY5 Progress Note Patient remains intubated overnight. Nursing denies acute events overnight. Notes titrated off Levophed at 7AM. Three bowel movements yesterday. A 12-point review of systems not completed due to advanced Dementia and on ventilator support. Objective - Vital Signs/Intake and Output Vital Signs (last 24 hours): Temp Pulse Resp BP Pulse Ox 97.8 F 95 H 17 131/65 100 07/22/17 08:50 07/22/17 09:41 07/22/17 09:41 07/22/17 09:41 07/22/17 09:41 Intake and Output: 07/22/17 07/22/17 06:59 18:59 Intake Total 792.6 97.0 Output Total 560 90 Balance 232.6 7.0 - Medications Medications: Current Medications Albuterol/Ipratropium (Duoneb 3 Mg/0.5 Mg (3 Ml) Ud) 3 ml INH RQ6 [facility] Last Admin: 07/22/17 07:17 Dose: 3 ml Ascorbic Acid (Vitamin C 250 Mg Tab) 250 mg PO DAILY [facility] Last Admin: 07/21/17 10:09 Dose: 250 mg Benzocaine/Menthol (Cepacol Sore Throat) 1 love MT Q2 PRN PRN Reason: Sore Throat Last Admin: 07/17/17 20:25 Dose: 1 love Calcium Acetate (Phoslo) 1,334 mg PO TID [facility] Last Admin: 07/21/17 18:10 Dose: 1,334 mg Clopidogrel Bisulfate (Plavix) 75 mg PO DAILY [facility] Last Admin: 07/21/17 10:06 Dose: 75 mg Cyproheptadine HCl (Periactin) 4 mg PO BID [facility] Last Admin: 07/21/17 18:00 Dose: 4 mg Donepezil HCl (Aricept) 10 mg PO HS [facility] Last Admin: 07/21/17 22:16 Dose: 10 mg Ferrous Sulfate (Feosol) 325 mg PO Q12H [facility] Last Admin: 07/22/17 06:09 Dose: 325 mg Gemfibrozil (Lopid) 600 mg PO BID [facility] Last Admin: 07/21/17 18:11 Dose: 600 mg Heparin Sodium (Porcine) (Heparin) 5,000 units SC Q12 [facility] Last Admin: 07/21/17 22:15 Dose: 5,000 units Home Med (Fesoterodine Fumarate [Toviaz]) 8 mg PO DAILY [facility] Hydromorphone HCl (Dilaudid) 0.5 mg IVP Q6H PRN PRN Reason: Pain, severe (8-10) Last Admin: 07/22/17 08:07 Dose: 0.5 mg Tigecycline 50 mg/ Dextrose 100 mls @ 100 mls/hr IVPB Q12H [facility] Last Admin: 07/22/17 00:28 Dose: 100 mls/hr Metronidazole 250 mg/ (Miscellaneous) 50 mls @ 100 mls/hr IVPB Q8 [facility] Last Admin: 07/22/17 06:09 Dose: 100 mls/hr Norepinephrine Bitartrate 4 mg (/ Sodium Chloride) 254 mls @ 15.24 mls/hr IV .[id number] PRN; Protocol; 4 MCG/MIN PRN Reason: TITRATE PER MD ORDER Last Titration: 07/22/17 03:00 Dose: 2 mcg/min, 7.62 mls/hr Propofol (Diprivan) 1,000 mg in 100 mls @ 1.943 mls/hr IV .Q24H PRN; Protocol; 5 MCG/KG/MIN PRN Reason: TITRATE PER MD ORDER Last Titration: 07/21/17 01:00 Dose: 0 mcg/kg/min, 0 mls/hr Insulin Human Regular (Novolin R) 0 unit SC Q6 [facility] PRN Reason: Protocol Latanoprost (Xalatan Opht) 0 ml OU HS [facility] Last Admin: 07/21/17 22:21 Dose: 2.5 ml Levothyroxine Sodium (Synthroid) 50 mcg PO DAILY@0630 [facility] Last Admin: 07/22/17 06:09 Dose: 50 mcg Lorazepam (Ativan) 2 mg IVP Q4 PRN PRN Reason: Anxiety Meclizine HCl (Antivert) 12.5 mg PO TID [facility] Last Admin: 07/21/17 18:11 Dose: 12.5 mg Metoprolol Succinate (Toprol Xl) 100 mg PO DAILY [facility] Last Admin: 07/14/17 13:41 Dose: 100 mg Ondansetron HCl (Zofran Inj) 4 mg IVP Q6 PRN PRN Reason: Nausea/Vomiting Pantoprazole Sodium (Protonix Inj) 40 mg IVP DAILY [facility] Last Admin: 07/21/17 10:08 Dose: 40 mg Rosuvastatin Calcium (Crestor) 10 mg PO HS [facility] Last Admin: 07/21/17 22:16 Dose: 10 mg Saccharomyces Boulardii (Florastor) 250 mg PO BID [facility] Last Admin: 07/21/17 18:10 Dose: 250 mg - Labs Labs: 07/22/17 06:22 07/22/17 06:22 PT 14.3 SECONDS (9.7-12.2) H 07/16/17 04:00 INR 1.3 07/16/17 04:00 APTT 29 SECONDS (21-34) 07/13/17 20:04 - Constitutional Appears: Chronically Ill - Head Exam Head Exam: ATRAUMATIC, NORMOCEPHALIC - Eye Exam Eye Exam: EOMI. absent: Scleral icterus Pupil Exam: PERRL. absent: Miosis, Mydriatic - ENT Exam ENT Exam: Mucous Membranes Moist, Normal Oropharynx - Neck Exam Neck Exam: Full ROM, Normal Inspection - Respiratory Exam Respiratory Exam: Clear to Ausculation Bilateral. absent: Rales, Rhonchi, Wheezes - Cardiovascular Exam Cardiovascular Exam: RRR, +S1, +S2. absent: Gallop, Rubs - GI/Abdominal Exam GI & Abdominal Exam: Soft, Tenderness, Normal Bowel Sounds. absent: Distended, Firm, Guarding, Rigid, Organomegaly, Rebound Additional comments: epigastric tenderness to palpation - Extremities Exam Extremities Exam: Normal Inspection. absent: Pedal Edema - Neurological Exam Neurological Exam: Awake - Psychiatric Exam Additional comments: unable to assess on ventilator support - Skin Skin Exam: Dry, Intact, Normal Color, Warm Assessment and Plan - Assessment and Plan (Free Text) Assessment: 82 year old male wit history of Diabetes, Hyperlipidemia, Hypertension, Hypothyroidism, CKD, Alzheimer's Dementia, CVA on Plavix, and cholangitis s/p ERCP with CBD stent (04/2017). Active treatment of hypoxic VDRF s/p PEA arrest with ROSC (07/20), renal failure on HD, HCAP, E. faecium Bacteremia, and ERCP guidewire pneumoperitoneum with hepatic subcapsular/extracapsular fluid collection. Plan: >tube feeds started yesterday >ICU managing ventilator and vasopressor support >continue conservative management of hepatic subcapsular fluid collection >ID managing- broad spectrum antibiotics >07/[address] A/P- unchanged fluid collection >nephrology managing- 07/20 received dialysis >will follow clinical course <Gavino Damian - Last Filed: 07/22/17 15:51> Objective - Vital Signs/Intake and Output Vital Signs (last 24 hours): Temp Pulse Resp BP Pulse Ox 98.1 F 86 16 124/51 L 99 07/22/17 12:00 07/22/17 13:55 07/22/17 13:55 07/22/17 13:55 07/22/17 13:55 Intake and Output: 07/22/17 07/22/17 06:59 18:59 Intake Total 792.6 549.5 Output Total 560 300 Balance 232.6 249.5 - Medications Medications: Current Medications Albuterol/Ipratropium (Duoneb 3 Mg/0.5 Mg (3 Ml) Ud) 3 ml INH RQ6 [facility] Last Admin: 07/22/17 13:03 Dose: 3 ml Ascorbic Acid (Vitamin C 250 Mg Tab) 250 mg PO DAILY [facility] Last Admin: 07/22/17 11:59 Dose: 250 mg Benzocaine/Menthol (Cepacol Sore Throat) 1 love MT Q2 PRN PRN Reason: Sore Throat Last Admin: 07/17/17 20:25 Dose: 1 love Calcium Acetate (Phoslo) 1,334 mg PO TID [facility] Last Admin: 07/22/17 13:00 Dose: 1,334 mg Clopidogrel Bisulfate (Plavix) 75 mg PO DAILY [facility] Last Admin: 07/22/17 12:00 Dose: 75 mg Cyproheptadine HCl (Periactin) 4 mg PO BID [facility] Last Admin: 07/22/17 12:00 Dose: 4 mg Donepezil HCl (Aricept) 10 mg PO HS [facility] Last Admin: 07/21/17 22:16 Dose: 10 mg Ferrous Sulfate (Feosol) 325 mg PO Q12H [facility] Last Admin: 07/22/17 06:09 Dose: 325 mg Gemfibrozil (Lopid) 600 mg PO BID [facility] Last Admin: 07/22/17 12:00 Dose: 600 mg Heparin Sodium (Porcine) (Heparin) 5,000 units SC Q12 [facility] Last Admin: 07/22/17 12:00 Dose: 5,000 units Home Med (Fesoterodine Fumarate [Toviaz]) 8 mg PO DAILY [facility] Hydromorphone HCl (Dilaudid) 0.5 mg IVP Q6H PRN PRN Reason: Pain, severe (8-10) Last Admin: 07/22/17 14:11 Dose: 0.5 mg Tigecycline 50 mg/ Dextrose 100 mls @ 100 mls/hr IVPB Q12H [facility] Last Admin: 07/22/17 12:01 Dose: 100 mls/hr Metronidazole 250 mg/ (Miscellaneous) 50 mls @ 100 mls/hr IVPB Q8 [facility] Last Admin: 07/22/17 13:01 Dose: 100 mls/hr Norepinephrine Bitartrate 4 mg (/ Sodium Chloride) 254 mls @ 15.24 mls/hr IV .[id number] PRN; Protocol; 4 MCG/MIN PRN Reason: TITRATE PER MD ORDER Last Admin: 07/22/17 12:10 Dose: 2 mcg/min, 7.62 mls/hr Propofol (Diprivan) 1,000 mg in 100 mls @ 1.943 mls/hr IV .Q24H PRN; Protocol; 5 MCG/KG/MIN PRN Reason: TITRATE PER MD ORDER Last Titration: 07/21/17 01:00 Dose: 0 mcg/kg/min, 0 mls/hr Insulin Human Regular (Novolin R) 0 unit SC Q6 [facility] PRN Reason: Protocol Last Admin: 07/22/17 11:49 Dose: 6 unit Latanoprost (Xalatan Opht) 0 ml OU HS [facility] Last Admin: 07/21/17 22:21 Dose: 2.5 ml Levothyroxine Sodium (Synthroid) 50 mcg PO DAILY@0630 [facility] Last Admin: 07/22/17 06:09 Dose: 50 mcg Lorazepam (Ativan) 2 mg IVP Q4 PRN PRN Reason: Anxiety Meclizine HCl (Antivert) 12.5 mg PO TID [facility] Last Admin: 07/22/17 13:00 Dose: 12.5 mg Metoprolol Succinate (Toprol Xl) 100 mg PO DAILY [facility] Last Admin: 07/14/17 13:41 Dose: 100 mg Ondansetron HCl (Zofran Inj) 4 mg IVP Q6 PRN PRN Reason: Nausea/Vomiting Pantoprazole Sodium (Protonix Inj) 40 mg IVP DAILY [facility] Last Admin: 07/22/17 11:59 Dose: 40 mg Rosuvastatin Calcium (Crestor) 10 mg PO HS [facility] Last Admin: 07/21/17 22:16 Dose: 10 mg Saccharomyces Boulardii (Florastor) 250 mg PO BID [facility] Last Admin: 07/22/17 12:01 Dose: 250 mg - Labs Labs: 07/22/17 06:22 07/22/17 06:22 PT 14.3 SECONDS (9.7-12.2) H 07/16/17 04:00 INR 1.3 07/16/17 04:00 APTT 29 SECONDS (21-34) 07/13/17 20:04 Attending/Attestation - Attestation I have personally seen and examined this patient.: Yes I have fully participated in the care of the patient.: Yes I have reviewed all pertinent clinical information, including history, physical exam and plan: Yes Notes (Text): 07/22/17 15:43 82 year old male with h/o DM, HTN, HLD, Hypothyroidism, Dementia, CKD, h/o cholangitis s/p ERCP with stent, subsequent ERCP complciated by guidewire perforation, bacteremia/sepsis, renal failure, dialysis, respiratory failure requiring mechanical ventilation. 1. Perforation of bile duct 2. Other injury of liver Plan: -continue tube feeds -continue tigacycline/flagyl per id -repeat blood cultures to document clearance -wean pressors/vent per ICU -dialysis per nephrology -supportive care -surgery following, no indication for surgery at this time
[2017-07-22] MEDS: Saccharomyces Boulardi 250 mg Cap PO SCH ×2 (12:01→17:25)
--- NOTE | 2017-07-22 12:46 | CP.PCM.PN ---
<Marcelino Ordoñez - Last Filed: 07/22/17 13:21> Subjective - Date & Time of Evaluation Date of Evaluation: 07/22/17 Time of Evaluation: 13:21 - Subjective Subjective: General Surgery Note for Dr. Boyce Patient seen and examined at bedside. He is s/p Left internal jugular permacath insertion POD#2. Patient is awake and alert responding verbal and tactile stimuli. He is still complaining of abdominal pain. He is intubated and on vent support (TV 500, Peep 5, RR 16, FiO2 60%). Levophed drip was discontinued. Objective - Vital Signs/Intake and Output Vital Signs (last 24 hours): Temp Pulse Resp BP Pulse Ox 98.1 F 93 H 19 115/50 L 97 07/22/17 12:00 07/22/17 12:26 07/22/17 12:26 07/22/17 12:26 07/22/17 12:26 Intake and Output: 07/22/17 07/22/17 06:59 18:59 Intake Total 792.6 348.0 Output Total 560 90 Balance 232.6 258.0 - Medications Medications: Current Medications Albuterol/Ipratropium (Duoneb 3 Mg/0.5 Mg (3 Ml) Ud) 3 ml INH RQ6 [facility] Last Admin: 07/22/17 07:17 Dose: 3 ml Ascorbic Acid (Vitamin C 250 Mg Tab) 250 mg PO DAILY [facility] Last Admin: 07/22/17 11:59 Dose: 250 mg Benzocaine/Menthol (Cepacol Sore Throat) 1 love MT Q2 PRN PRN Reason: Sore Throat Last Admin: 07/17/17 20:25 Dose: 1 love Calcium Acetate (Phoslo) 1,334 mg PO TID [facility] Last Admin: 07/22/17 11:46 Dose: Not Given Clopidogrel Bisulfate (Plavix) 75 mg PO DAILY [facility] Last Admin: 07/22/17 12:00 Dose: 75 mg Cyproheptadine HCl (Periactin) 4 mg PO BID [facility] Last Admin: 07/22/17 12:00 Dose: 4 mg Donepezil HCl (Aricept) 10 mg PO HS [facility] Last Admin: 07/21/17 22:16 Dose: 10 mg Ferrous Sulfate (Feosol) 325 mg PO Q12H [facility] Last Admin: 07/22/17 06:09 Dose: 325 mg Gemfibrozil (Lopid) 600 mg PO BID [facility] Last Admin: 07/22/17 12:00 Dose: 600 mg Heparin Sodium (Porcine) (Heparin) 5,000 units SC Q12 [facility] Last Admin: 07/22/17 12:00 Dose: 5,000 units Home Med (Fesoterodine Fumarate [Toviaz]) 8 mg PO DAILY [facility] Hydromorphone HCl (Dilaudid) 0.5 mg IVP Q6H PRN PRN Reason: Pain, severe (8-10) Last Admin: 07/22/17 08:07 Dose: 0.5 mg Tigecycline 50 mg/ Dextrose 100 mls @ 100 mls/hr IVPB Q12H [facility] Last Admin: 07/22/17 12:01 Dose: 100 mls/hr Metronidazole 250 mg/ (Miscellaneous) 50 mls @ 100 mls/hr IVPB Q8 [facility] Last Admin: 07/22/17 06:09 Dose: 100 mls/hr Norepinephrine Bitartrate 4 mg (/ Sodium Chloride) 254 mls @ 15.24 mls/hr IV .[id number] PRN; Protocol; 4 MCG/MIN PRN Reason: TITRATE PER MD ORDER Last Admin: 07/22/17 12:10 Dose: 2 mcg/min, 7.62 mls/hr Propofol (Diprivan) 1,000 mg in 100 mls @ 1.943 mls/hr IV .Q24H PRN; Protocol; 5 MCG/KG/MIN PRN Reason: TITRATE PER MD ORDER Last Titration: 07/21/17 01:00 Dose: 0 mcg/kg/min, 0 mls/hr Insulin Human Regular (Novolin R) 0 unit SC Q6 [facility] PRN Reason: Protocol Last Admin: 07/22/17 11:49 Dose: 6 unit Latanoprost (Xalatan Opht) 0 ml OU HS [facility] Last Admin: 07/21/17 22:21 Dose: 2.5 ml Levothyroxine Sodium (Synthroid) 50 mcg PO DAILY@0630 [facility] Last Admin: 07/22/17 06:09 Dose: 50 mcg Lorazepam (Ativan) 2 mg IVP Q4 PRN PRN Reason: Anxiety Meclizine HCl (Antivert) 12.5 mg PO TID [facility] Last Admin: 07/22/17 11:45 Dose: Not Given Metoprolol Succinate (Toprol Xl) 100 mg PO DAILY [facility] Last Admin: 07/14/17 13:41 Dose: 100 mg Ondansetron HCl (Zofran Inj) 4 mg IVP Q6 PRN PRN Reason: Nausea/Vomiting Pantoprazole Sodium (Protonix Inj) 40 mg IVP DAILY [facility] Last Admin: 07/22/17 11:59 Dose: 40 mg Rosuvastatin Calcium (Crestor) 10 mg PO HS [facility] Last Admin: 07/21/17 22:16 Dose: 10 mg Saccharomyces Boulardii (Florastor) 250 mg PO BID [facility] Last Admin: 07/22/17 12:01 Dose: 250 mg - Labs Labs: 07/22/17 06:22 07/22/17 06:22 PT 14.3 SECONDS (9.7-12.2) H 07/16/17 04:00 INR 1.3 07/16/17 04:00 APTT 29 SECONDS (21-34) 07/13/17 20:04 - Constitutional Appears: No Acute Distress - Head Exam Head Exam: ATRAUMATIC, NORMOCEPHALIC - Eye Exam Eye Exam: EOMI, Normal appearance Pupil Exam: PERRL - ENT Exam ENT Exam: Mucous Membranes Moist Additional comments: et tube in place - Respiratory Exam Respiratory Exam: NORMAL BREATHING PATTERN Additional comments: intubated and on vent support - Cardiovascular Exam Cardiovascular Exam: REGULAR RHYTHM - GI/Abdominal Exam GI & Abdominal Exam: Soft, Tenderness. absent: Distended, Firm, Guarding, Rigid - Extremities Exam Extremities Exam: absent: Calf Tenderness - Neurological Exam Neurological Exam: Alert, Awake - Psychiatric Exam Psychiatric exam: Normal Affect, Normal Mood Assessment and Plan - Assessment and Plan (Free Text) Plan: 82 M with ESRD and abdominal pain s/p Left IJ permacath insertion POD#2 -Wean off vent -Dialysis today -Management as per ICU -Discuss with Dr. Austen Ordoñez PGY1 <Manohar Boyce - Last Filed: 07/25/17 19:45> Objective - Vital Signs/Intake and Output Vital Signs (last 24 hours): Temp Pulse Resp BP Pulse Ox 98.6 F 87 22 154/71 H 100 07/25/17 16:00 07/25/17 19:00 07/25/17 19:00 07/25/17 18:28 07/25/17 19:00 Intake and Output: 07/25/17 07/26/17 18:59 06:59 Intake Total 1030 Output Total 235 Balance 795 - Medications Medications: Current Medications Albuterol Sulfate (Albuterol 0.042% Inhal Ruby (1.25mg/3ml) Ud) 1.25 mg INH RQ6 PRN PRN Reason: Wheezing Ascorbic Acid (Vitamin C 250 Mg Tab) 250 mg PO DAILY [facility] Last Admin: 07/25/17 09:12 Dose: 250 mg Benzocaine/Menthol (Cepacol Sore Throat) 1 love MT Q2 PRN PRN Reason: Sore Throat Last Admin: 07/25/17 09:12 Dose: 1 love Calcium Acetate (Phoslo) 1,334 mg PO TID [facility] Last Admin: 07/25/17 18:12 Dose: 1,334 mg Clopidogrel Bisulfate (Plavix) 75 mg PO DAILY [facility] Last Admin: 07/25/17 09:12 Dose: 75 mg Cyproheptadine HCl (Periactin) 4 mg PO BID [facility] Last Admin: 07/25/17 18:12 Dose: 4 mg Donepezil HCl (Aricept) 10 mg PO HS [facility] Last Admin: 07/24/17 21:38 Dose: 10 mg Epoetin Romel (Procrit) 10,000 unit IV MWF [facility] Ferrous Sulfate (Feosol) 325 mg PO Q12H [facility] Last Admin: 07/25/17 18:12 Dose: 325 mg Heparin Sodium (Porcine) (Heparin) 5,000 units SC Q12 [facility] Last Admin: 07/25/17 09:11 Dose: 5,000 units Home Med (Fesoterodine Fumarate [Toviaz]) 8 mg PO DAILY [facility] Hydromorphone HCl (Dilaudid) 0.5 mg IVP Q4 PRN PRN Reason: Pain, severe (8-10) Last Admin: 07/25/17 15:10 Dose: 0.5 mg Tigecycline 50 mg/ Dextrose 100 mls @ 100 mls/hr IVPB Q12H [facility] Last Admin: 07/25/17 12:18 Dose: 100 mls/hr Metronidazole 250 mg/ (Miscellaneous) 50 mls @ 100 mls/hr IVPB Q8 [facility] Last Admin: 07/25/17 13:21 Dose: 100 mls/hr Insulin Human Regular (Novolin R) 0 unit SC ACHS [facility] PRN Reason: Protocol Last Admin: 07/25/17 18:12 Dose: 3 unit Latanoprost (Xalatan Opht) 0 ml OU HS [facility] Last Admin: 07/24/17 21:38 Dose: 2.5 ml Levothyroxine Sodium (Synthroid) 50 mcg PO DAILY@0630 [facility] Last Admin: 07/25/17 06:03 Dose: 50 mcg Metoprolol Succinate (Toprol Xl) 100 mg PO DAILY [facility] Last Admin: 07/14/17 13:41 Dose: 100 mg Ondansetron HCl (Zofran Inj) 4 mg IVP Q6 PRN PRN Reason: Nausea/Vomiting Pantoprazole Sodium (Protonix Ec Tab) 40 mg PO DAILY [facility] Last Admin: 07/25/17 09:12 Dose: 40 mg Rosuvastatin Calcium (Crestor) 10 mg PO HS [facility] Last Admin: 07/24/17 21:36 Dose: 10 mg Saccharomyces Boulardii (Florastor) 250 mg PO BID [facility] Last Admin: 07/25/17 18:12 Dose: 250 mg - Labs Labs: 07/25/17 06:23 07/25/17 06:25 PT 14.3 SECONDS (9.7-12.2) H 07/16/17 04:00 INR 1.3 07/16/17 04:00 APTT 29 SECONDS (21-34) 07/13/17 20:04 Attending/Attestation - Attestation I have personally seen and examined this patient.: Yes I have fully participated in the care of the patient.: Yes I have reviewed all pertinent clinical information, including history, physical exam and plan: Yes Notes (Text): Pt was seen and examined at bedside Agree with above note and assessment Pt is improving clinically Extubation DVT prophylaxis C/W IV antibiotics Plan d.w pt in detail.
--- NOTE | 2017-07-22 16:06 | CP.PCM.PN ---
Subjective - Date & Time of Evaluation Date of Evaluation: 07/22/17 Time of Evaluation: 15:40 - Subjective Subjective: extubated HD today via left permcath unable to obtain ROS due to mental status Objective - Vital Signs/Intake and Output Vital Signs (last 24 hours): Temp Pulse Resp BP Pulse Ox 98.1 F 86 16 124/51 L 99 07/22/17 12:00 07/22/17 13:55 07/22/17 13:55 07/22/17 13:55 07/22/17 13:55 Intake and Output: 07/22/17 07/22/17 06:59 18:59 Intake Total 792.6 549.5 Output Total 560 300 Balance 232.6 249.5 - Medications Medications: Current Medications Albuterol/Ipratropium (Duoneb 3 Mg/0.5 Mg (3 Ml) Ud) 3 ml INH RQ6 [facility] Last Admin: 07/22/17 13:03 Dose: 3 ml Ascorbic Acid (Vitamin C 250 Mg Tab) 250 mg PO DAILY [facility] Last Admin: 07/22/17 11:59 Dose: 250 mg Benzocaine/Menthol (Cepacol Sore Throat) 1 love MT Q2 PRN PRN Reason: Sore Throat Last Admin: 07/17/17 20:25 Dose: 1 love Calcium Acetate (Phoslo) 1,334 mg PO TID [facility] Last Admin: 07/22/17 13:00 Dose: 1,334 mg Clopidogrel Bisulfate (Plavix) 75 mg PO DAILY [facility] Last Admin: 07/22/17 12:00 Dose: 75 mg Cyproheptadine HCl (Periactin) 4 mg PO BID [facility] Last Admin: 07/22/17 12:00 Dose: 4 mg Donepezil HCl (Aricept) 10 mg PO HS [facility] Last Admin: 07/21/17 22:16 Dose: 10 mg Ferrous Sulfate (Feosol) 325 mg PO Q12H [facility] Last Admin: 07/22/17 06:09 Dose: 325 mg Gemfibrozil (Lopid) 600 mg PO BID [facility] Last Admin: 07/22/17 12:00 Dose: 600 mg Heparin Sodium (Porcine) (Heparin) 5,000 units SC Q12 [facility] Last Admin: 07/22/17 12:00 Dose: 5,000 units Home Med (Fesoterodine Fumarate [Toviaz]) 8 mg PO DAILY [facility] Hydromorphone HCl (Dilaudid) 0.5 mg IVP Q6H PRN PRN Reason: Pain, severe (8-10) Last Admin: 07/22/17 14:11 Dose: 0.5 mg Tigecycline 50 mg/ Dextrose 100 mls @ 100 mls/hr IVPB Q12H [facility] Last Admin: 07/22/17 12:01 Dose: 100 mls/hr Metronidazole 250 mg/ (Miscellaneous) 50 mls @ 100 mls/hr IVPB Q8 [facility] Last Admin: 07/22/17 13:01 Dose: 100 mls/hr Norepinephrine Bitartrate 4 mg (/ Sodium Chloride) 254 mls @ 15.24 mls/hr IV .[id number] PRN; Protocol; 4 MCG/MIN PRN Reason: TITRATE PER MD ORDER Last Admin: 07/22/17 12:10 Dose: 2 mcg/min, 7.62 mls/hr Propofol (Diprivan) 1,000 mg in 100 mls @ 1.943 mls/hr IV .Q24H PRN; Protocol; 5 MCG/KG/MIN PRN Reason: TITRATE PER MD ORDER Last Titration: 07/21/17 01:00 Dose: 0 mcg/kg/min, 0 mls/hr Insulin Human Regular (Novolin R) 0 unit SC Q6 [facility] PRN Reason: Protocol Last Admin: 07/22/17 11:49 Dose: 6 unit Latanoprost (Xalatan Opht) 0 ml OU HS [facility] Last Admin: 07/21/17 22:21 Dose: 2.5 ml Levothyroxine Sodium (Synthroid) 50 mcg PO DAILY@0630 [facility] Last Admin: 07/22/17 06:09 Dose: 50 mcg Lorazepam (Ativan) 2 mg IVP Q4 PRN PRN Reason: Anxiety Meclizine HCl (Antivert) 12.5 mg PO TID [facility] Last Admin: 07/22/17 13:00 Dose: 12.5 mg Metoprolol Succinate (Toprol Xl) 100 mg PO DAILY [facility] Last Admin: 07/14/17 13:41 Dose: 100 mg Ondansetron HCl (Zofran Inj) 4 mg IVP Q6 PRN PRN Reason: Nausea/Vomiting Pantoprazole Sodium (Protonix Inj) 40 mg IVP DAILY [facility] Last Admin: 07/22/17 11:59 Dose: 40 mg Rosuvastatin Calcium (Crestor) 10 mg PO HS [facility] Last Admin: 07/21/17 22:16 Dose: 10 mg Saccharomyces Boulardii (Florastor) 250 mg PO BID [facility] Last Admin: 07/22/17 12:01 Dose: 250 mg - Labs Labs: 07/22/17 06:22 07/22/17 06:22 PT 14.3 SECONDS (9.7-12.2) H 07/16/17 04:00 INR 1.3 07/16/17 04:00 APTT 29 SECONDS (21-34) 07/13/17 20:04 - Constitutional Appears: Non-toxic, Chronically Ill - Head Exam Head Exam: ATRAUMATIC - Eye Exam Eye Exam: EOMI - Neck Exam Neck Exam: Full ROM. absent: Lymphadenopathy - Respiratory Exam Respiratory Exam: Decreased Breath Sounds. absent: Accessory Muscle Use - Cardiovascular Exam Cardiovascular Exam: REGULAR RHYTHM. absent: Rubs - GI/Abdominal Exam GI & Abdominal Exam: Distended. absent: Tenderness - Neurological Exam Neurological Exam: Awake. absent: Alert Assessment and Plan - Assessment and Plan (Free Text) Assessment: sandi, on HD respiratory failure, now improved mild hyponatremia, monitor post HD monitor for renal recovery
--- NOTE | 2017-07-22 16:32 | CP.PCM.PN ---
Subjective - Date & Time of Evaluation Date of Evaluation: 07/22/17 Time of Evaluation: 08:00 - Subjective Subjective: extubated remains weak lethargic Objective - Vital Signs/Intake and Output Vital Signs (last 24 hours): Temp Pulse Resp BP Pulse Ox 98.2 F 88 21 129/48 L 100 07/22/17 16:00 07/22/17 16:00 07/22/17 16:00 07/22/17 16:00 07/22/17 16:00 Intake and Output: 07/22/17 07/22/17 06:59 18:59 Intake Total 792.6 569.5 Output Total 560 400 Balance 232.6 169.5 - Medications Medications: Current Medications Albuterol/Ipratropium (Duoneb 3 Mg/0.5 Mg (3 Ml) Ud) 3 ml INH RQ6 [facility] Last Admin: 07/22/17 13:03 Dose: 3 ml Ascorbic Acid (Vitamin C 250 Mg Tab) 250 mg PO DAILY [facility] Last Admin: 07/22/17 11:59 Dose: 250 mg Benzocaine/Menthol (Cepacol Sore Throat) 1 love MT Q2 PRN PRN Reason: Sore Throat Last Admin: 07/17/17 20:25 Dose: 1 love Calcium Acetate (Phoslo) 1,334 mg PO TID [facility] Last Admin: 07/22/17 13:00 Dose: 1,334 mg Clopidogrel Bisulfate (Plavix) 75 mg PO DAILY [facility] Last Admin: 07/22/17 12:00 Dose: 75 mg Cyproheptadine HCl (Periactin) 4 mg PO BID [facility] Last Admin: 07/22/17 12:00 Dose: 4 mg Donepezil HCl (Aricept) 10 mg PO HS [facility] Last Admin: 07/21/17 22:16 Dose: 10 mg Ferrous Sulfate (Feosol) 325 mg PO Q12H [facility] Last Admin: 07/22/17 06:09 Dose: 325 mg Gemfibrozil (Lopid) 600 mg PO BID [facility] Last Admin: 07/22/17 12:00 Dose: 600 mg Heparin Sodium (Porcine) (Heparin) 5,000 units SC Q12 [facility] Last Admin: 07/22/17 12:00 Dose: 5,000 units Home Med (Fesoterodine Fumarate [Toviaz]) 8 mg PO DAILY [facility] Hydromorphone HCl (Dilaudid) 0.5 mg IVP Q6H PRN PRN Reason: Pain, severe (8-10) Last Admin: 07/22/17 14:11 Dose: 0.5 mg Tigecycline 50 mg/ Dextrose 100 mls @ 100 mls/hr IVPB Q12H [facility] Last Admin: 07/22/17 12:01 Dose: 100 mls/hr Metronidazole 250 mg/ (Miscellaneous) 50 mls @ 100 mls/hr IVPB Q8 [facility] Last Admin: 07/22/17 13:01 Dose: 100 mls/hr Norepinephrine Bitartrate 4 mg (/ Sodium Chloride) 254 mls @ 15.24 mls/hr IV .[id number] PRN; Protocol; 4 MCG/MIN PRN Reason: TITRATE PER MD ORDER Last Titration: 07/22/17 13:30 Dose: 0 mcg/min, 0 mls/hr Propofol (Diprivan) 1,000 mg in 100 mls @ 1.943 mls/hr IV .Q24H PRN; Protocol; 5 MCG/KG/MIN PRN Reason: TITRATE PER MD ORDER Last Titration: 07/21/17 01:00 Dose: 0 mcg/kg/min, 0 mls/hr Insulin Human Regular (Novolin R) 0 unit SC Q6 [facility] PRN Reason: Protocol Last Admin: 07/22/17 11:49 Dose: 6 unit Latanoprost (Xalatan Opht) 0 ml OU HS [facility] Last Admin: 07/21/17 22:21 Dose: 2.5 ml Levothyroxine Sodium (Synthroid) 50 mcg PO DAILY@0630 [facility] Last Admin: 07/22/17 06:09 Dose: 50 mcg Lorazepam (Ativan) 2 mg IVP Q4 PRN PRN Reason: Anxiety Meclizine HCl (Antivert) 12.5 mg PO TID [facility] Last Admin: 07/22/17 13:00 Dose: 12.5 mg Metoprolol Succinate (Toprol Xl) 100 mg PO DAILY [facility] Last Admin: 07/14/17 13:41 Dose: 100 mg Ondansetron HCl (Zofran Inj) 4 mg IVP Q6 PRN PRN Reason: Nausea/Vomiting Pantoprazole Sodium (Protonix Inj) 40 mg IVP DAILY [facility] Last Admin: 07/22/17 11:59 Dose: 40 mg Rosuvastatin Calcium (Crestor) 10 mg PO HS [facility] Last Admin: 07/21/17 22:16 Dose: 10 mg Saccharomyces Boulardii (Florastor) 250 mg PO BID [facility] Last Admin: 07/22/17 12:01 Dose: 250 mg - Labs Labs: 07/22/17 06:22 07/22/17 06:22 PT 14.3 SECONDS (9.7-12.2) H 07/16/17 04:00 INR 1.3 07/16/17 04:00 APTT 29 SECONDS (21-34) 07/13/17 20:04 - Constitutional Appears: Non-toxic, Chronically Ill - Eye Exam Eye Exam: EOMI - ENT Exam ENT Exam: Mucous Membranes Dry - Neck Exam Neck Exam: absent: Lymphadenopathy - Respiratory Exam Respiratory Exam: Decreased Breath Sounds - Cardiovascular Exam Cardiovascular Exam: REGULAR RHYTHM - GI/Abdominal Exam GI & Abdominal Exam: Distended - Rectal Exam Rectal Exam: Deferred - Exam Exam: NORMAL INSPECTION - Extremities Exam Extremities Exam: absent: Pedal Edema - Back Exam Back Exam: absent: CVA tenderness (L), CVA tenderness (R) - Neurological Exam Neurological Exam: Altered - Psychiatric Exam Psychiatric exam: Depressed - Skin Skin Exam: Dry Assessment and Plan (1) JAY JAY (acute kidney injury) Status: Acute (2) CVA, old, cognitive deficits Status: Acute (3) Chronic kidney disease, stage III (moderate) Status: Acute (4) Headache Status: Acute (5) Hx of gastroesophageal reflux (GERD) Status: Acute - Assessment and Plan (Free Text) Assessment: s/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
[2017-07-22] MEDS: Latanoprost 2.5 ml Opht Soln OU SCH (22:17)
[2017-07-23] MEDS: (Novolin R) Insulin Human Regular 100 units/ml vial SC SCH ×4 (00:07→21:40)
[2017-07-23] MEDS: Tigecycline 50 MG in Dextrose 5% In Water 100 ML IVPB SCH ×2 (00:46→12:14)
[2017-07-23] MEDS ORDERED: HYDROmorphone 0.5 mg/0.5 ml ISec IVP STA (01:28)
[2017-07-23] MEDS: Albuterol-Ipratrop 3 mg / 0.5 (3 ml) UD INH SCH ×3 (01:46→13:31)
[2017-07-23] MEDS: HYDROmorphone 0.5 mg/0.5 ml ISec IVP PRN ×5 (04:32→23:50)
[2017-07-23] MEDS: metroNIDAZOLE IV 500 mg/100 ml 250 MG in Premixed IV 1 EA IVPB SCH ×3 (05:39→21:15)
[2017-07-23] MEDS: Levothyroxine 50 MCG TAB PO SCH (05:39)
[2017-07-23 06:37] LABS: BASO # 0.1 K/uL (0.0-0.2); BASO % 0.5 % (0.0-2.0); EOS # 0.4 K/uL (0.0-0.7); EOS % 2.7 % (0.0-4.0); HEMATOCRIT 25.7 % (35.0-51.0); LYMPH # 1.6 K/uL (1.0-4.3); LYMPH % 10.9 % (20.0-40.0); MEAN CELL VOLUME 82.7 fL (80.0-94.0); MEAN CORPUSCULAR HEMOGLOBIN 27.7 pg (27.0-31.0); MEAN CORPUSCULAR HGB CONC 33.5 g/dL (33.0-37.0); MONO # 1.6 K/uL (0.0-0.8); MONO % 10.9 % (0.0-10.0); NRBC % 0.1 % (0.0-2.0); RED CELL DISTRIBUTION WIDTH 15.3 % (11.5-14.5); WHITE BLOOD COUNT 14.3 K/uL (4.8-10.8)
[2017-07-23 06:44] LABS: POTASSIUM 3.5 mmol/L (3.6-5.2)
[2017-07-23 06:46] LABS: BILIRUBIN,TOTAL 0.8 mg/dL (0.2-1.3)
[2017-07-23 06:47] LABS: ALB/GLOB RATIO 1.1 (1.0-2.1); CALCIUM 7.5 mg/dl (8.6-10.4); MAGNESIUM 2.1 mg/dL (1.6-2.3); PHOSPHOROUS 5.6 mg/dL (2.5-4.5); TOTAL PROTEIN 4.8 g/dL (6.3-8.3)
--- NOTE | 2017-07-23 08:37 | CP.CCUPN ---
<JaninejocelynEffie Noemi - Last Filed: 07/23/17 18:31> CCU Subjective - Physician Review Subjective (Free Text): Patient seen and examined at bedside. Patient extubated and breathing on nasal cannula. Patient complains of epigastric pain. Patient says he is slightly nauseous, but has not vomited. Patient denies chest pain. 07/23/17 08:34 CCU Objective - Vital Signs / Intake & Output Vital Signs (Last 4 hours): Vital Signs Pulse Resp BP Pulse Ox 07/23/17 07:00 100 H 23 115/55 L 98 07/23/17 06:30 104 H 24 118/52 L 97 07/23/17 06:01 126 H 31 H 106/51 L 94 L 07/23/17 06:00 120 H 24 96 07/23/17 05:30 91 H 21 132/51 L 100 07/23/17 05:00 93 H 20 125/58 L 100 Intake and Output (Last 8hrs): Intake & Output 07/22/17 07/23/17 07/23/17 22:59 06:59 14:59 Intake Total 110 210 Output Total 235 215 Balance -125 -5 Intake: Intake, IV Amount 50 150 Right Distal Port 50 150 Internal Jugular Oral 60 60 Output: Urine 235 215 Urethral (Pacheco) 235 215 - Physical Exam Head: Positive for: Atraumatic, Normocephalic Pupils: Positive for: PERRL Extroacular Muscles: Positive for: EOMI Mouth: Positive for: Dry Respiratory/Chest: Positive for: Rhonchi. Negative for: Respiratory Distress, Accessory Muscle Use Cardiovascular: Positive for: Normal S1, S2 Abdomen: Positive for: Tenderness, Distention Lower Extremity: Negative for: Edema Neurological: Positive for: GCS=15 Skin: Positive for: Warm, Normal Color Psychiatric: Positive for: Alert. Negative for: Oriented x 3 - Medications Active Medications: Active Medications Generic Name Dose Route Start Last Admin Trade Name Freq PRN Reason Stop Dose Admin Albuterol/Ipratropium 3 ml 07/20/17 20:00 07/23/17 08:11 Duoneb 3 Mg/0.5 Mg (3 Ml) Ud INH 3 ml RQ6 DARINEL Administration Ascorbic Acid 250 mg 07/14/17 10:00 07/22/17 11:59 Vitamin C 250 Mg Tab PO 250 mg DAILY DARINEL Administration Benzocaine/Menthol 1 love 07/14/17 04:24 07/17/17 20:25 Cepacol Sore Throat MT 1 love Q2 PRN Administration Sore Throat Calcium Acetate 1,334 mg 07/20/17 11:16 07/22/17 17:25 Phoslo PO Not Given TID DARINEL Clopidogrel Bisulfate 75 mg 07/14/17 10:00 07/22/17 12:00 Plavix PO 75 mg DAILY DARINEL Administration Cyproheptadine HCl 4 mg 07/14/17 10:00 07/22/17 17:25 Periactin PO Not Given BID DARINEL Donepezil HCl 10 mg 07/13/17 22:00 07/22/17 22:10 Aricept PO 10 mg HS [facility] Administration Ferrous Sulfate 325 mg 07/13/17 18:45 07/23/17 05:44 Feosol PO 325 mg Q12H DARINEL Administration Gemfibrozil 600 mg 07/14/17 10:00 07/22/17 17:25 Lopid PO Not Given BID [facility] Heparin Sodium (Porcine) 5,000 units 07/21/17 22:00 07/22/17 22:11 Heparin SC 5,000 units Q12 DARINEL Administration Home Med 8 mg 07/14/17 10:00 Fesoterodine Fumarate [Toviaz] PO DAILY [facility] Hydromorphone HCl 0.5 mg 07/21/17 00:18 07/23/17 04:32 Dilaudid IVP 0.5 mg Q6H PRN Administration Pain, severe (8-10) Tigecycline 50 mg/ Dextrose 100 mls @ 100 mls/hr 07/18/17 01:00 07/23/17 00: 46 IVPB 100 mls/hr Q12H DARINEL Administration Metronidazole 250 mg/ 50 mls @ 100 mls/hr 07/18/17 22:15 07/23/17 05:39 Miscellaneous IVPB 100 mls/hr Q8 DARINEL Administration Norepinephrine Bitartrate 4 mg 254 mls @ 15.24 mls/hr 07/20/17 15:42 13:30 / Sodium Chloride IV 0 mcg/min .[id number] PRN 0 mls/hr TITRATE PER MD ORDER Titration Protocol 4 MCG/MIN Propofol 1,000 mg in 100 mls @ 1.943 mls/hr 07/20/17 16:06 07/21/17 01:00 Diprivan IV 0 mcg/kg/min .Q24H PRN 0 mls/hr TITRATE PER MD ORDER Titration Protocol 5 MCG/KG/MIN Insulin Human Regular 0 unit 07/22/17 09:39 07/23/17 00:07 Novolin R SC Not Given Q6 [facility] Protocol Latanoprost 0 ml 07/13/17 22:00 07/22/17 22:17 Xalatan Opht OU 2.5 ml HS DARNIEL Administration Levothyroxine Sodium 50 mcg 07/14/17 06:30 07/23/17 05:39 Synthroid PO 50 mcg DAILY@0630 DARINEL Administration Lorazepam 2 mg 07/20/17 16:04 Ativan IVP Q4 PRN Anxiety Meclizine HCl 12.5 mg 07/14/17 10:00 07/22/17 17:25 Antivert PO Not Given TID DARINEL Metoprolol Succinate 100 mg 07/13/17 21:59 07/14/17 13:41 Toprol Xl PO 100 mg DAILY DARINEL Administration Ondansetron HCl 4 mg 07/14/17 00:38 Zofran Inj IVP Q6 PRN Nausea/Vomiting Pantoprazole Sodium 40 mg 07/14/17 10:00 07/22/17 11:59 Protonix Inj IVP 40 mg DAILY DARINEL Administration Rosuvastatin Calcium 10 mg 07/13/17 22:00 07/22/17 22:10 Crestor PO 10 mg HS DARINEL Administration Saccharomyces Boulardii 250 mg 07/14/17 10:00 07/22/17 17:25 Florastor PO Not Given BID DARINEL - Patient Studies Lab Studies: Microbiology Studies 07/20/17 03:55 Blood Culture - Preliminary Blood-Venous NO GROWTH AFTER 3 DAYS 07/20/17 03:55 Blood Culture - Preliminary Blood-Venous NO GROWTH AFTER 3 DAYS 07/17/17 08:00 Blood Culture - Final Blood-Venous NO GROWTH AFTER 5 DAYS Gram Stain - Final TEST NOT PERFORMED Lab Studies 07/23/17 07/23/17 07/23/17 Range/Units 06:26 06:26 05:49 WBC 14.3 H (4.8-10.8) K/uL RBC 3.11 L (4.40-5.90) Mil/uL Hgb 8.6 L (12.0-18.0) g/dL Hct 25.7 L (35.0-51.0) % MCV 82.7 (80.0-94.0) fL MCH 27.7 (27.0-31.0) pg MCHC 33.5 (33.0-37.0) g/dL RDW 15.3 H (11.5-14.5) % Plt Count 146 (130-400) K/uL MPV 9.0 (7.2-11.7) fL Neut % (Auto) 75.0 (50.0-75.0) % Lymph % (Auto) 10.9 L (20.0-40.0) % [place] % (Auto) 10.9 H (0.0-10.0) % Eos % (Auto) 2.7 (0.0-4.0) % Baso % (Auto) 0.5 (0.0-2.0) % Neut # 10.7 H (1.8-7.0) K/uL Lymph # 1.6 (1.0-4.3) K/uL [place] # 1.6 H (0.0-0.8) K/uL Eos # 0.4 (0.0-0.7) K/uL Baso # 0.1 (0.0-0.2) K/uL Sodium 131 L (132-148) mmol/L Potassium 3.5 L (3.6-5.2) mmol/L Chloride 94 L (98-107) mmol/L Carbon Dioxide 26 (22-30) mmol/L Anion Gap 15 (10-20) BUN 58 H (9-20) mg/dL Creatinine 3.2 H (0.8-1.5) mg/dL Est GFR ( Amer) 23 Est GFR (Non-Af Amer) 19 POC Glucose (mg/dL) 129 H (65-110) mg/dL Random Glucose 117 H (75-110) mg/dL Calcium 7.5 L (8.6-10.4) mg/dl Phosphorus 5.6 H (2.5-4.5) mg/dL Magnesium 2.1 (1.6-2.3) mg/dL Total Bilirubin 0.8 (0.2-1.3) mg/dL AST 61 H D (17-59) U/L ALT 36 (21-72) U/L Alkaline Phosphatase 106 (38-126) U/L Total Protein 4.8 L (6.3-8.3) g/dL Albumin 2.6 L (3.5-5.0) g/dL Globulin 2.3 (2.2-3.9) gm/dL Albumin/Globulin Ratio 1.1 (1.0-2.1) 07/22/17 07/22/17 07/22/17 Range/Units 23:45 17:53 11:07 WBC (4.8-10.8) K/uL RBC (4.40-5.90) Mil/uL Hgb (12.0-18.0) g/dL Hct (35.0-51.0) % MCV (80.0-94.0) fL MCH (27.0-31.0) pg MCHC (33.0-37.0) g/dL RDW (11.5-14.5) % Plt Count (130-400) K/uL MPV (7.2-11.7) fL Neut % (Auto) (50.0-75.0) % Lymph % (Auto) (20.0-40.0) % [place] % (Auto) (0.0-10.0) % Eos % (Auto) (0.0-4.0) % Baso % (Auto) (0.0-2.0) % Neut # (1.8-7.0) K/uL Lymph # (1.0-4.3) K/uL [place] # (0.0-0.8) K/uL Eos # (0.0-0.7) K/uL Baso # (0.0-0.2) K/uL Sodium (132-148) mmol/L Potassium (3.6-5.2) mmol/L Chloride (98-107) mmol/L Carbon Dioxide (22-30) mmol/L Anion Gap (10-20) BUN (9-20) mg/dL Creatinine (0.8-1.5) mg/dL Est GFR ( Amer) Est GFR (Non-Af Amer) POC Glucose (mg/dL) 138 H 85 254 H (65-110) mg/dL Random Glucose (75-110) mg/dL Calcium (8.6-10.4) mg/dl Phosphorus (2.5-4.5) mg/dL Magnesium (1.6-2.3) mg/dL Total Bilirubin (0.2-1.3) mg/dL AST (17-59) U/L ALT (21-72) U/L Alkaline Phosphatase (38-126) U/L Total Protein (6.3-8.3) g/dL Albumin (3.5-5.0) g/dL Globulin (2.2-3.9) gm/dL Albumin/Globulin Ratio (1.0-2.1) Laboratory Results - last 24 hr 07/22/17 07/22/17 07/22/17 11:07 17:53 23:45 WBC RBC Hgb Hct MCV MCH MCHC RDW Plt Count MPV Neut % (Auto) Lymph % (Auto) [place] % (Auto) Eos % (Auto) Baso % (Auto) Neut # Lymph # [place] # Eos # Baso # Sodium Potassium Chloride Carbon Dioxide Anion Gap BUN Creatinine Est GFR ( Amer) Est GFR (Non-Af Amer) POC Glucose (mg/dL) 254 H 85 138 H Random Glucose Calcium Phosphorus Magnesium Total Bilirubin AST ALT Alkaline Phosphatase Total Protein Albumin Globulin Albumin/Globulin Ratio 07/23/17 07/23/17 07/23/17 05:49 06:26 06:26 WBC 14.3 H RBC 3.11 L Hgb 8.6 L Hct 25.7 L MCV 82.7 MCH 27.7 MCHC 33.5 RDW 15.3 H Plt Count 146 MPV 9.0 Neut % (Auto) 75.0 Lymph % (Auto) 10.9 L [place] % (Auto) 10.9 H Eos % (Auto) 2.7 Baso % (Auto) 0.5 Neut # 10.7 H Lymph # 1.6 [place] # 1.6 H Eos # 0.4 Baso # 0.1 Sodium 131 L Potassium 3.5 L Chloride 94 L Carbon Dioxide 26 Anion Gap 15 BUN 58 H Creatinine 3.2 H Est GFR ( Amer) 23 Est GFR (Non-Af Amer) 19 POC Glucose (mg/dL) 129 H Random Glucose 117 H Calcium 7.5 L Phosphorus 5.6 H Magnesium 2.1 Total Bilirubin 0.8 AST 61 H D ALT 36 Alkaline Phosphatase 106 Total Protein 4.8 L Albumin 2.6 L Globulin 2.3 Albumin/Globulin Ratio 1.1 Fingerstick Blood Sugar Results: 129 Review of Systems - Constitutional Constitutional: absent: Fever, Chills, Sweats - Cardiovascular Cardiovascular: absent: Chest Pain, Dyspnea, Leg Edema - Respiratory Respiratory: Stridor. absent: Cough, Dyspnea - Gastrointestinal Gastrointestinal: Abdominal Pain, Nausea. absent: Constipation, Diarrhea, Vomiting - Genitourinary Genitourinary: absent: Difficulty Urinating - Neurological Neurological: Confusion, Memory Loss - Psychiatric Psychiatric: Confusion, Memory Loss Critical Care Progress Note - Nutrition Nutrition: Nutrition Category Date Time Status NPO Diet [DIET] Diets 07/20/17 Dinner Active Assessment/Plan - Assessment and Plan (Free Text) Assessment: 82 M w/ PMHx of Diabetes, HLD, HTN, Hypothyroidism, CKD Stage 3, Alzheimer's Dementia, 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 Patient POD#3 s/p left internal jugular vein permacath insertion, intubated s/p cardiac arrest. Neuro: hx Alzheimer's dementia -Aricept 10 mg PO HS -CT head (07/13): no acute intracranial hemorrhage, or suspicious mass effect Cardio: HTN, hx CVA -Cardiology consulted (Dr. Chau), help appreciated -Home blood pressure medications held because blood pressure low: Amlodipine 10 mg po daily, Metoprolol Succinate 100 mg po daily, Losartan 100 mg PO daily -Plavix 75mg po daily (restarted on 07/22) -Crestor 10 mg po HS -Lipitor 80 mg po HS -Gemfibrozil 600 mg po BID -Metoprolol held due to hypotension -Levophed drip stopped on 07/22/17 -TSH and free T4 WNL - echo report from 07/13/17 : left ventricular ejection fraction is within the normal range (60%). moderate concentric left ventricular hypertrophy. transmitral doppler flow pattern is gradeI- abnormal relaxation pattern. Mitral annular calcification is mild. Mitral regurgitation is trace. -Patient went into a fib overnight, started on cardizem drip and switched to 120mg cardizem po daily -Troponin I (07/20-07/21): .[phone],.[phone], .4900 -as per Dr. Chau probable Troponin elevation due to coronary hypoperfusion from shock, likely a septic etiology, not a primary event. -Code Blue (07/20/17) called at 15:37, two epis, norepi drip started, 1 bicarb, and 1 calcium gluconate given before ROSC at 15:39 Pulm: bilateral pneumonia -CT Abdomen/Pelvis 07/13/17 showed bibasilar lingular and right middle lobe mild nonspecific infiltrates consistent with atelectasis/pneumonia -CXR 07/21/17: confluent opacification of the left mid to lower lung zone as well as right lung base. Linear lucency along the lateral margin of the left lower hemithorax which may represent Mach artifact. bilateral hilar prominence. small left pleural effusion. biapical pleural thickening. cardiomegaly. -stop duonebs and start xopenex -negative influenza A/B, negative urine Legionella -mycoplasma IgM 81, IgG 1.07 -patient extubated 07/22 GI: abdominal pain likely secondary to gas/ fluid around liver - CT C/A/P showed free air under the right hemidiaphragm and extrahepatic CBD pneumobilia - Surgery consulted (Dr. Boyce) - help appreciated -NPO -NGT in place -CT abdomen and pelvis with IV and PO contrast- showed gas and fluid around left lobe liver and along inferior vena cava that is unchanged, no evidence of extravasation of oral contrast from stomach or duodenem. -Abdominal u/s (07/15): limited sonographic evaluation of the liver for purposes of drainage and did not show the subdiaphragmatic fluid collection see in previous CT -Abdominal xray (07/16): colonic contrast, no mechanical obstruction suggested. -no intervention by IR at this time -Abd X-ray (07/23): distended small large-bowel loops filled with air suggestive of bowel ileus or partial/intermittent distal small bowel obstruction. patient having bowel movements, as per surgery more likely ileus : hx overactive bladder -Festerodine 8 mg PO 1x/day held -Enlarged Prostate on CT Abdomen/Pelvis -PSA: 23.3 Nephro: CKD stage 3, possible acute on chronic, POD 3 s/p left internal jugular vein permacath insertion - BUN 83, Cr 4.6 - 2+ urine protein and 2+ urine glucose on U/A 07/14/17 - Nephrology consulted (Dr. Oconnell) -IV lasix 20 mg BID -Phoslo TID -Nepro feeds with no free water as per Dr. Andrew -dialysis yesterday Endo: hx of diabetes, hypothyroidism - ISS -accuchecks -Synthroid 50 mcg po daily -TSH and T4 WNL ID: Sepsis secondary to likely biliary or hepatic perforation from recent ERCP - Code sepsis called 07/14 - HCAP pneumonia suspected given recent hospitalization and antibiotic use for buttock abscess - Infectious Disease consulted (Dr. Langford), help appreciated -urine cultures: no growth -Negative MRSA -blood culture: gram positive cocci, Enterococcus Faecium -Flagyl 250mg q8h -repeat blood culture (07/20) : negative -- continue Tigecycline 50mg q12h PPX: DVT: SCD's, Heparin 5000 u sc q12h GI: Protonix 40 mg IV daily florastor <Tre Walls - Last Filed: 07/24/17 10:02> CCU Objective - Vital Signs / Intake & Output Vital Signs (Last 4 hours): Vital Signs Temp Pulse Resp BP Pulse Ox 07/24/17 08:30 94 H 24 146/70 97 07/24/17 08:01 90 20 154/61 H 07/24/17 08:00 97.4 F L 07/24/17 07:30 90 18 130/60 07/24/17 07:01 91 H 22 97/70 L 07/24/17 07:00 91 H 23 07/24/17 06:31 89 21 114/65 07/24/17 06:02 89 22 112/78 Intake and Output (Last 8hrs): Intake & Output 07/23/17 07/24/17 07/24/17 22:59 06:59 14:59 Intake Total 340 200 240 Output Total 210 255 85 Balance 130 -55 155 Intake: Intake, IV Amount 100 200 Right Distal Port 100 200 Internal Jugular Oral 240 240 Output: Urine 210 255 85 Urethral ([place]acheco) 210 255 85 - Medications Active Medications: Active Medications Generic Name Dose Route Start Last Admin Trade Name Freq PRN Reason Stop Dose Admin Albuterol Sulfate 1.25 mg 07/23/17 20:00 Albuterol 0.042% Inhal Ruby (1.25mg/3ml) Ud INH RQ6 PRN Wheezing Ascorbic Acid 250 mg 07/14/17 10:00 07/24/17 09:29 Vitamin C 250 Mg Tab PO 250 mg DAILY DARINEL Administration Benzocaine/Menthol 1 love 07/14/17 04:24 07/17/17 20:25 Cepacol Sore Throat MT 1 love Q2 PRN Administration Sore Throat Calcium Acetate 1,334 mg 07/20/17 11:16 07/24/17 09:29 Phoslo PO 1,334 mg TID DARINEL Administration Clopidogrel Bisulfate 75 mg 07/14/17 10:00 07/24/17 09:32 Plavix PO 75 mg DAILY DARINEL Administration Cyproheptadine HCl 4 mg 07/14/17 10:00 07/24/17 09:32 Periactin PO 4 mg BID DARINEL Administration Donepezil HCl 10 mg 07/13/17 22:00 07/23/17 21:14 Aricept PO 10 mg HS DARINEL Administration Ferrous Sulfate 325 mg 07/13/17 18:45 07/24/17 06:10 Feosol PO 325 mg Q12H DARINEL Administration Heparin Sodium (Porcine) 5,000 units 07/21/17 22:00 07/24/17 09:29 Heparin SC 5,000 units Q12 DARINEL Administration Home Med 8 mg 07/14/17 10:00 Fesoterodine Fumarate [Toviaz] PO DAILY DARINEL Hydromorphone HCl 0.5 mg 07/23/17 09:56 07/24/17 08:13 Dilaudid IVP 0.5 mg Q4 PRN Administration Pain, severe (8-10) Tigecycline 50 mg/ Dextrose 100 mls @ 100 mls/hr 07/18/17 01:00 07/24/17 01: 30 IVPB 100 mls/hr Q12H DARINEL Administration Metronidazole 250 mg/ 50 mls @ 100 mls/hr 07/18/17 22:15 07/24/17 05:10 Miscellaneous IVPB 100 mls/hr Q8 DARINEL Administration Insulin Human Regular 0 unit 07/23/17 16:30 07/24/17 08:01 Novolin R SC 2 unit ACHS DARINEL Administration Protocol Latanoprost 0 ml 07/13/17 22:00 07/23/17 22:19 Xalatan Opht OU 2.5 ml HS DARINEL Administration Levothyroxine Sodium 50 mcg 07/14/17 06:30 07/24/17 06:10 Synthroid PO 50 mcg DAILY@0630 DARINEL Administration Metoprolol Succinate 100 mg 07/13/17 21:59 07/14/17 13:41 Toprol Xl PO 100 mg DAILY DARINEL Administration Ondansetron HCl 4 mg 07/14/17 00:38 Zofran Inj IVP Q6 PRN Nausea/Vomiting Pantoprazole Sodium 40 mg 07/24/17 10:00 07/24/17 09:30 Protonix Ec Tab PO 40 mg DAILY DARINEL Administration Rosuvastatin Calcium 10 mg 07/13/17 22:00 07/23/17 21:15 Crestor PO 10 mg HS DARINEL Administration Saccharomyces Boulardii 250 mg 07/14/17 10:00 07/24/17 09:29 Florastor PO 250 mg BID DARINEL Administration - Patient Studies Lab Studies: Microbiology Studies 07/20/17 03:55 Blood Culture - Preliminary Blood-Venous NO GROWTH AFTER 4 DAYS 07/20/17 03:55 Blood Culture - Preliminary Blood-Venous NO GROWTH AFTER 4 DAYS 07/17/17 08:00 Blood Culture - Final Blood-Venous NO GROWTH AFTER 5 DAYS Gram Stain - Final TEST NOT PERFORMED Lab Studies 07/24/17 07/24/17 07/24/17 Range/Units 07:41 06:17 06:17 WBC 15.3 H (4.8-10.8) K/uL RBC 3.06 L (4.40-5.90) Mil/uL Hgb 8.4 L (12.0-18.0) g/dL Hct 25.3 L (35.0-51.0) % MCV 82.6 (80.0-94.0) fL MCH 27.3 (27.0-31.0) pg MCHC 33.1 (33.0-37.0) g/dL RDW 15.6 H (11.5-14.5) % Plt Count 179 (130-400) K/uL MPV 9.2 (7.2-11.7) fL Neut % (Auto) 75.6 H (50.0-75.0) % Lymph % (Auto) 10.9 L (20.0-40.0) % [place] % (Auto) 10.6 H (0.0-10.0) % Eos % (Auto) 2.4 (0.0-4.0) % Baso % (Auto) 0.5 (0.0-2.0) % Neut # 11.5 H (1.8-7.0) K/uL Lymph # 1.7 (1.0-4.3) K/uL [place] # 1.6 H (0.0-0.8) K/uL Eos # 0.4 (0.0-0.7) K/uL Baso # 0.1 (0.0-0.2) K/uL Sodium 132 (132-148) mmol/L Potassium 3.7 (3.6-5.2) mmol/L Chloride 96 L (98-107) mmol/L Carbon Dioxide 25 (22-30) mmol/L Anion Gap 15 (10-20) BUN 69 H (9-20) mg/dL Creatinine 3.7 H (0.8-1.5) mg/dL Est GFR ( Amer) 19 Est GFR (Non-Af Amer) 16 POC Glucose (mg/dL) 163 H (65-110) mg/dL Random Glucose 131 H (75-110) mg/dL Calcium 7.8 L (8.6-10.4) mg/dl Phosphorus 5.9 H (2.5-4.5) mg/dL Magnesium 2.2 (1.6-2.3) mg/dL Total Bilirubin 0.6 (0.2-1.3) mg/dL AST 62 H (17-59) U/L ALT 39 (21-72) U/L Alkaline Phosphatase 108 (38-126) U/L Total Protein 5.6 L (6.3-8.3) g/dL Albumin 2.5 L (3.5-5.0) g/dL Globulin 3.1 (2.2-3.9) gm/dL Albumin/Globulin Ratio 0.8 L (1.0-2.1) 07/23/17 07/23/17 07/23/17 Range/Units 21:24 16:20 12:06 WBC (4.8-10.8) K/uL RBC (4.40-5.90) Mil/uL Hgb (12.0-18.0) g/dL Hct (35.0-51.0) % MCV (80.0-94.0) fL MCH (27.0-31.0) pg MCHC (33.0-37.0) g/dL RDW (11.5-14.5) % Plt Count (130-400) K/uL MPV (7.2-11.7) fL Neut % (Auto) (50.0-75.0) % Lymph % (Auto) (20.0-40.0) % [place] % (Auto) (0.0-10.0) % Eos % (Auto) (0.0-4.0) % Baso % (Auto) (0.0-2.0) % Neut # (1.8-7.0) K/uL Lymph # (1.0-4.3) K/uL [place] # (0.0-0.8) K/uL Eos # (0.0-0.7) K/uL Baso # (0.0-0.2) K/uL Sodium (132-148) mmol/L Potassium (3.6-5.2) mmol/L Chloride (98-107) mmol/L Carbon Dioxide (22-30) mmol/L Anion Gap (10-20) BUN (9-20) mg/dL Creatinine (0.8-1.5) mg/dL Est GFR ( Amer) Est GFR (Non-Af Amer) POC Glucose (mg/dL) 136 H 234 H 272 H (65-110) mg/dL Random Glucose (75-110) mg/dL Calcium (8.6-10.4) mg/dl Phosphorus (2.5-4.5) mg/dL Magnesium (1.6-2.3) mg/dL Total Bilirubin (0.2-1.3) mg/dL AST (17-59) U/L ALT (21-72) U/L Alkaline Phosphatase (38-126) U/L Total Protein (6.3-8.3) g/dL Albumin (3.5-5.0) g/dL Globulin (2.2-3.9) gm/dL Albumin/Globulin Ratio (1.0-2.1) Laboratory Results - last 24 hr 07/23/17 07/23/17 07/23/17 12:06 16:20 21:24 WBC RBC Hgb Hct MCV MCH MCHC RDW Plt Count MPV Neut % (Auto) Lymph % (Auto) [place] % (Auto) Eos % (Auto) Baso % (Auto) Neut # Lymph # [place] # Eos # Baso # Sodium Potassium Chloride Carbon Dioxide Anion Gap BUN Creatinine Est GFR ( Amer) Est GFR (Non-Af Amer) POC Glucose (mg/dL) 272 H 234 H 136 H Random Glucose Calcium Phosphorus Magnesium Total Bilirubin AST ALT Alkaline Phosphatase Total Protein Albumin Globulin Albumin/Globulin Ratio 07/24/17 07/24/17 07/24/17 06:17 06:17 07:41 WBC 15.3 H RBC 3.06 L Hgb 8.4 L Hct 25.3 L MCV 82.6 MCH 27.3 MCHC 33.1 RDW 15.6 H Plt Count 179 MPV 9.2 Neut % (Auto) 75.6 H Lymph % (Auto) 10.9 L [place] % (Auto) 10.6 H Eos % (Auto) 2.4 Baso % (Auto) 0.5 Neut # 11.5 H Lymph # 1.7 [place] # 1.6 H Eos # 0.4 Baso # 0.1 Sodium 132 Potassium 3.7 Chloride 96 L Carbon Dioxide 25 Anion Gap 15 BUN 69 H Creatinine 3.7 H Est GFR ( Amer) 19 Est GFR (Non-Af Amer) 16 POC Glucose (mg/dL) 163 H Random Glucose 131 H Calcium 7.8 L Phosphorus 5.9 H Magnesium 2.2 Total Bilirubin 0.6 AST 62 H ALT 39 Alkaline Phosphatase 108 Total Protein 5.6 L Albumin 2.5 L Globulin 3.1 Albumin/Globulin Ratio 0.8 L Critical Care Progress Note - Nutrition Nutrition: Nutrition Category Date Time Status Liquid Diet [DIET] Diets 07/23/17 Dinner Active Attending/Attestation - Attestation I have personally seen and examined this patient.: Yes I have fully participated in the care of the patient.: Yes I have reviewed all pertinent clinical information: Yes Notes (Text): 07/24/17 10:01 Today: Thursday, July 23, 2017 The Patient was seen and examined at the bedside, Medical records reviewed, and management issues were discussed and formulated with the house staff. I have reviewed all the relevant clinical, laboratory, hemodynamic, radiographic data and medications Events reviewed Pain issues, skin care, head of the bed elevation, glycemic control were addressed. Agree with above treatment plans as transcribed in note I concur with resident's assessment and plan of care as transcribed in Dr. Vogt note. Code status: Full code
--- NOTE | 2017-07-23 08:51 | RAD ---
Chest x-ray single frontal view History: Intubated. Comparison: 07/22/2017 Findings: Interval removal of an endotracheal and NG tube. Right central venous catheter extending to the right SVC. Additional lines and tubes in stable position. Worsening now near complete opacification of the left rina thorax with associated large left pleural effusion. Worsening prominent consolidative changes at the right lung base. Cardiomegaly. Calcification at aortic knob. Degenerative changes in the spine and shoulders. Prominently dilated/distended loops of bowel in the upper abdomen. Impression: Interval removal of an endotracheal and NG tube. Right central venous catheter extending to the right SVC. Additional lines and tubes in stable position. Worsening now near complete opacification of the left rina thorax with associated large left pleural effusion. Worsening prominent consolidative changes at the right lung base. Cardiomegaly. Calcification at aortic knob. Degenerative changes in the spine and shoulders. Prominently dilated/distended loops of bowel in the upper abdomen.
--- NOTE | 2017-07-23 08:58 | CP.PCM.PN ---
<Dianne Salinas - Last Filed: 07/23/17 08:47> Subjective - Date & Time of Evaluation Date of Evaluation: 07/23/17 Time of Evaluation: 08:47 - Subjective Subjective: Gastroenterology Fellow/PGY5 Progress Note Patient extubated yesterday. Nursing notes required additional analgesic administration overnight for abdominal pain control. Remains off vasopressor support since yesterday morning. No bowel movements yesterday. A 12-point review of systems not completed due to advanced Dementia. Objective - Vital Signs/Intake and Output Vital Signs (last 24 hours): Temp Pulse Resp BP Pulse Ox 98.0 F 100 H 23 115/55 L 98 07/23/17 04:00 07/23/17 07:00 07/23/17 07:00 07/23/17 07:00 07/23/17 07:00 Intake and Output: 07/23/17 07/23/17 06:59 18:59 Intake Total 320 Output Total 320 Balance 0 - Medications Medications: Current Medications Albuterol/Ipratropium (Duoneb 3 Mg/0.5 Mg (3 Ml) Ud) 3 ml INH RQ6 [facility] Last Admin: 07/23/17 08:11 Dose: 3 ml Ascorbic Acid (Vitamin C 250 Mg Tab) 250 mg PO DAILY [facility] Last Admin: 07/22/17 11:59 Dose: 250 mg Benzocaine/Menthol (Cepacol Sore Throat) 1 love MT Q2 PRN PRN Reason: Sore Throat Last Admin: 07/17/17 20:25 Dose: 1 love Calcium Acetate (Phoslo) 1,334 mg PO TID [facility] Last Admin: 07/22/17 17:25 Dose: Not Given Clopidogrel Bisulfate (Plavix) 75 mg PO DAILY [facility] Last Admin: 07/22/17 12:00 Dose: 75 mg Cyproheptadine HCl (Periactin) 4 mg PO BID [facility] Last Admin: 07/22/17 17:25 Dose: Not Given Donepezil HCl (Aricept) 10 mg PO HS [facility] Last Admin: 07/22/17 22:10 Dose: 10 mg Ferrous Sulfate (Feosol) 325 mg PO Q12H [facility] Last Admin: 07/23/17 05:44 Dose: 325 mg Gemfibrozil (Lopid) 600 mg PO BID [facility] Last Admin: 07/22/17 17:25 Dose: Not Given Heparin Sodium (Porcine) (Heparin) 5,000 units SC Q12 [facility] Last Admin: 07/22/17 22:11 Dose: 5,000 units Home Med (Fesoterodine Fumarate [Toviaz]) 8 mg PO DAILY [facility] Hydromorphone HCl (Dilaudid) 0.5 mg IVP Q6H PRN PRN Reason: Pain, severe (8-10) Last Admin: 07/23/17 04:32 Dose: 0.5 mg Tigecycline 50 mg/ Dextrose 100 mls @ 100 mls/hr IVPB Q12H [facility] Last Admin: 07/23/17 00:46 Dose: 100 mls/hr Metronidazole 250 mg/ (Miscellaneous) 50 mls @ 100 mls/hr IVPB Q8 [facility] Last Admin: 07/23/17 05:39 Dose: 100 mls/hr Norepinephrine Bitartrate 4 mg (/ Sodium Chloride) 254 mls @ 15.24 mls/hr IV .[id number] PRN; Protocol; 4 MCG/MIN PRN Reason: TITRATE PER MD ORDER Last Titration: 07/22/17 13:30 Dose: 0 mcg/min, 0 mls/hr Propofol (Diprivan) 1,000 mg in 100 mls @ 1.943 mls/hr IV .Q24H PRN; Protocol; 5 MCG/KG/MIN PRN Reason: TITRATE PER MD ORDER Last Titration: 07/21/17 01:00 Dose: 0 mcg/kg/min, 0 mls/hr Insulin Human Regular (Novolin R) 0 unit SC Q6 [facility] PRN Reason: Protocol Last Admin: 07/23/17 00:07 Dose: Not Given Latanoprost (Xalatan Opht) 0 ml OU HS [facility] Last Admin: 07/22/17 22:17 Dose: 2.5 ml Levothyroxine Sodium (Synthroid) 50 mcg PO DAILY@0630 [facility] Last Admin: 07/23/17 05:39 Dose: 50 mcg Lorazepam (Ativan) 2 mg IVP Q4 PRN PRN Reason: Anxiety Meclizine HCl (Antivert) 12.5 mg PO TID [facility] Last Admin: 07/22/17 17:25 Dose: Not Given Metoprolol Succinate (Toprol Xl) 100 mg PO DAILY [facility] Last Admin: 07/14/17 13:41 Dose: 100 mg Ondansetron HCl (Zofran Inj) 4 mg IVP Q6 PRN PRN Reason: Nausea/Vomiting Pantoprazole Sodium (Protonix Inj) 40 mg IVP DAILY [facility] Last Admin: 07/22/17 11:59 Dose: 40 mg Rosuvastatin Calcium (Crestor) 10 mg PO HS [facility] Last Admin: 07/22/17 22:10 Dose: 10 mg Saccharomyces Boulardii (Florastor) 250 mg PO BID [facility] Last Admin: 07/22/17 17:25 Dose: Not Given - Labs Labs: 07/23/17 06:26 07/23/17 06:26 PT 14.3 SECONDS (9.7-12.2) H 07/16/17 04:00 INR 1.3 07/16/17 04:00 APTT 29 SECONDS (21-34) 07/13/17 20:04 - Constitutional Appears: No Acute Distress, Chronically Ill - Head Exam Head Exam: ATRAUMATIC, NORMOCEPHALIC - Eye Exam Eye Exam: EOMI, PERRL Pupil Exam: PERRL. absent: Miosis, Mydriatic - ENT Exam ENT Exam: Mucous Membranes Moist, Normal Oropharynx - Neck Exam Neck Exam: Normal Inspection - Cardiovascular Exam Cardiovascular Exam: RRR, +S1, +S2. absent: Gallop, Rubs - GI/Abdominal Exam GI & Abdominal Exam: Soft, Tenderness, Normal Bowel Sounds. absent: Distended, Firm, Guarding, Rigid, Organomegaly, Rebound Additional comments: epigastric tenderness to palpation - Extremities Exam Extremities Exam: absent: Pedal Edema, Tenderness - Neurological Exam Neurological Exam: Alert, Awake - Psychiatric Exam Psychiatric exam: Normal Affect, Normal Mood - Skin Skin Exam: Dry, Intact, Normal Color, Warm Assessment and Plan - Assessment and Plan (Free Text) Assessment: 82 year old male with history of Diabetes, Hyperlipidemia, Hypertension, Hypothyroidism, CKD, Alzheimer's Dementia, CVA on Plavix, and cholangitis s/p ERCP with CBD stent (04/2017). Active treatment of renal failure on HD, day 1 ( 07/22) post extubation for hypoxic VDRF s/p PEA arrest with ROSC (07/20), HCAP, E. faecium Bacteremia with blood culture negative at 48 hours, and ERCP guidewire pneumoperitoneum with hepatic subcapsular/extracapsular fluid collection with conservative management. Plan: >conservative management of hepatic subcapsular fluid collection >ID managing- broad spectrum antibiotics >07/[address] A/P- unchanged fluid collection >nephrology managing- 07/20 and 07/22 received dialysis >ICU managing- post-extubation >swallow evaluation today with transition to oral intake as tolerated >will follow clinical course <Gabriel Chang - Last Filed: 07/23/17 18:21> Objective - Vital Signs/Intake and Output Vital Signs (last 24 hours): Temp Pulse Resp BP Pulse Ox 98.4 F 102 H 30 H 123/50 L 97 07/23/17 16:00 07/23/17 18:00 07/23/17 18:00 07/23/17 18:00 07/23/17 18:00 Intake and Output: 07/23/17 07/23/17 06:59 18:59 Intake Total 320 390 Output Total 320 295 Balance 0 95 - Medications Medications: Current Medications Albuterol Sulfate (Albuterol 0.042% Inhal Ruby (1.25mg/3ml) Ud) 1.25 mg INH RQ6 PRN PRN Reason: Wheezing Ascorbic Acid (Vitamin C 250 Mg Tab) 250 mg PO DAILY [facility] Last Admin: 07/23/17 10:05 Dose: 250 mg Benzocaine/Menthol (Cepacol Sore Throat) 1 love MT Q2 PRN PRN Reason: Sore Throat Last Admin: 07/17/17 20:25 Dose: 1 love Calcium Acetate (Phoslo) 1,334 mg PO TID [facility] Last Admin: 07/23/17 17:13 Dose: 1,334 mg Clopidogrel Bisulfate (Plavix) 75 mg PO DAILY [facility] Last Admin: 07/23/17 10:05 Dose: 75 mg Cyproheptadine HCl (Periactin) 4 mg PO BID [facility] Last Admin: 07/23/17 17:13 Dose: 4 mg Donepezil HCl (Aricept) 10 mg PO HS [facility] Last Admin: 07/22/17 22:10 Dose: 10 mg Ferrous Sulfate (Feosol) 325 mg PO Q12H [facility] Last Admin: 07/23/17 05:44 Dose: 325 mg Heparin Sodium (Porcine) (Heparin) 5,000 units SC Q12 [facility] Last Admin: 07/23/17 10:04 Dose: 5,000 units Home Med (Fesoterodine Fumarate [Toviaz]) 8 mg PO DAILY [facility] Hydromorphone HCl (Dilaudid) 0.5 mg IVP Q4 PRN PRN Reason: Pain, severe (8-10) Last Admin: 07/23/17 14:14 Dose: 0.5 mg Tigecycline 50 mg/ Dextrose 100 mls @ 100 mls/hr IVPB Q12H [facility] Last Admin: 07/23/17 12:14 Dose: 100 mls/hr Metronidazole 250 mg/ (Miscellaneous) 50 mls @ 100 mls/hr IVPB Q8 [facility] Last Admin: 07/23/17 13:05 Dose: 100 mls/hr Insulin Human Regular (Novolin R) 0 unit SC ACHS [facility] PRN Reason: Protocol Last Admin: 07/23/17 16:39 Dose: 3 unit Latanoprost (Xalatan Opht) 0 ml OU HS [facility] Last Admin: 07/22/17 22:17 Dose: 2.5 ml Levothyroxine Sodium (Synthroid) 50 mcg PO DAILY@0630 [facility] Last Admin: 07/23/17 05:39 Dose: 50 mcg Metoprolol Succinate (Toprol Xl) 100 mg PO DAILY [facility] Last Admin: 07/14/17 13:41 Dose: 100 mg Ondansetron HCl (Zofran Inj) 4 mg IVP Q6 PRN PRN Reason: Nausea/Vomiting Pantoprazole Sodium (Protonix Inj) 40 mg IVP DAILY [facility] Last Admin: 07/23/17 10:05 Dose: 40 mg Rosuvastatin Calcium (Crestor) 10 mg PO HS [facility] Last Admin: 07/22/17 22:10 Dose: 10 mg Saccharomyces Boulardii (Florastor) 250 mg PO BID [facility] Last Admin: 07/23/17 17:13 Dose: 250 mg - Labs Labs: 07/23/17 06:26 07/23/17 06:26 PT 14.3 SECONDS (9.7-12.2) H 07/16/17 04:00 INR 1.3 07/16/17 04:00 APTT 29 SECONDS (21-34) 07/13/17 20:04 Attending/Attestation - Attestation I have personally seen and examined this patient.: Yes I have fully participated in the care of the patient.: Yes I have reviewed all pertinent clinical information, including history, physical exam and plan: Yes Notes (Text): 07/23/17 18:17 I have seen and examined patient with GI fellow. No acute events overnight, patient is now extubated and no longer on vasopressor support. He is seen resting comfortably in bed. According to nursing staff, patient had one large bowel movement yesterday. Review of vitals from today shows tachycardia. DM / HTN Hyperlipidemia CKD - now initiated on dialysis Dementia CVA s/p ERCP with biliary stent removal complicated by guidewire perforation of bile duct/hepatic capsule Sepsis, bacteremia - Continue with antibiotic therapy as per ID - Abdominal imaging reviewed by me, likely related to ileus, patient is having bowel movements. Would begin clear liquid diet as tolerated. - Continue to monitor creatinine and follow nephrology recommendations regarding dialysis - LFTs stable, continue to monitor
--- NOTE | 2017-07-23 09:11 | CP.PCM.PN ---
Subjective - Date & Time of Evaluation Date of Evaluation: 07/23/17 Time of Evaluation: 09:09 - Subjective Subjective: s/p dialysis 07/22- minimal UF [id number] off levo now; has been tachy at times- RVR AFib Same abdominal pains- has been NPO- to start feeds soon Objective - Vital Signs/Intake and Output Vital Signs (last 24 hours): Temp Pulse Resp BP Pulse Ox 98.0 F 100 H 23 115/55 L 98 07/23/17 04:00 07/23/17 07:00 07/23/17 07:00 07/23/17 07:00 07/23/17 07:00 Intake and Output: 07/23/17 07/23/17 06:59 18:59 Intake Total 320 Output Total 320 Balance 0 - Medications Medications: Current Medications Albuterol/Ipratropium (Duoneb 3 Mg/0.5 Mg (3 Ml) Ud) 3 ml INH RQ6 [facility] Last Admin: 07/23/17 08:11 Dose: 3 ml Ascorbic Acid (Vitamin C 250 Mg Tab) 250 mg PO DAILY [facility] Last Admin: 07/22/17 11:59 Dose: 250 mg Benzocaine/Menthol (Cepacol Sore Throat) 1 love MT Q2 PRN PRN Reason: Sore Throat Last Admin: 07/17/17 20:25 Dose: 1 love Calcium Acetate (Phoslo) 1,334 mg PO TID [facility] Last Admin: 07/22/17 17:25 Dose: Not Given Clopidogrel Bisulfate (Plavix) 75 mg PO DAILY [facility] Last Admin: 07/22/17 12:00 Dose: 75 mg Cyproheptadine HCl (Periactin) 4 mg PO BID [facility] Last Admin: 07/22/17 17:25 Dose: Not Given Donepezil HCl (Aricept) 10 mg PO HS [facility] Last Admin: 07/22/17 22:10 Dose: 10 mg Ferrous Sulfate (Feosol) 325 mg PO Q12H [facility] Last Admin: 07/23/17 05:44 Dose: 325 mg Gemfibrozil (Lopid) 600 mg PO BID [facility] Last Admin: 07/22/17 17:25 Dose: Not Given Heparin Sodium (Porcine) (Heparin) 5,000 units SC Q12 [facility] Last Admin: 07/22/17 22:11 Dose: 5,000 units Home Med (Fesoterodine Fumarate [Toviaz]) 8 mg PO DAILY [facility] Hydromorphone HCl (Dilaudid) 0.5 mg IVP Q6H PRN PRN Reason: Pain, severe (8-10) Last Admin: 07/23/17 04:32 Dose: 0.5 mg Tigecycline 50 mg/ Dextrose 100 mls @ 100 mls/hr IVPB Q12H [facility] Last Admin: 07/23/17 00:46 Dose: 100 mls/hr Metronidazole 250 mg/ (Miscellaneous) 50 mls @ 100 mls/hr IVPB Q8 [facility] Last Admin: 07/23/17 05:39 Dose: 100 mls/hr Norepinephrine Bitartrate 4 mg (/ Sodium Chloride) 254 mls @ 15.24 mls/hr IV .[id number] PRN; Protocol; 4 MCG/MIN PRN Reason: TITRATE PER MD ORDER Last Titration: 07/22/17 13:30 Dose: 0 mcg/min, 0 mls/hr Propofol (Diprivan) 1,000 mg in 100 mls @ 1.943 mls/hr IV .Q24H PRN; Protocol; 5 MCG/KG/MIN PRN Reason: TITRATE PER MD ORDER Last Titration: 07/21/17 01:00 Dose: 0 mcg/kg/min, 0 mls/hr Insulin Human Regular (Novolin R) 0 unit SC Q6 [facility] PRN Reason: Protocol Last Admin: 07/23/17 00:07 Dose: Not Given Latanoprost (Xalatan Opht) 0 ml OU HS [facility] Last Admin: 07/22/17 22:17 Dose: 2.5 ml Levothyroxine Sodium (Synthroid) 50 mcg PO DAILY@0630 [facility] Last Admin: 07/23/17 05:39 Dose: 50 mcg Lorazepam (Ativan) 2 mg IVP Q4 PRN PRN Reason: Anxiety Meclizine HCl (Antivert) 12.5 mg PO TID [facility] Last Admin: 07/22/17 17:25 Dose: Not Given Metoprolol Succinate (Toprol Xl) 100 mg PO DAILY [facility] Last Admin: 07/14/17 13:41 Dose: 100 mg Ondansetron HCl (Zofran Inj) 4 mg IVP Q6 PRN PRN Reason: Nausea/Vomiting Pantoprazole Sodium (Protonix Inj) 40 mg IVP DAILY [facility] Last Admin: 07/22/17 11:59 Dose: 40 mg Rosuvastatin Calcium (Crestor) 10 mg PO HS [facility] Last Admin: 07/22/17 22:10 Dose: 10 mg Saccharomyces Boulardii (Florastor) 250 mg PO BID [facility] Last Admin: 07/22/17 17:25 Dose: Not Given - Labs Labs: 07/23/17 06:26 07/23/17 06:26 PT 14.3 SECONDS (9.7-12.2) H 07/16/17 04:00 INR 1.3 07/16/17 04:00 APTT 29 SECONDS (21-34) 07/13/17 20:04 - Constitutional Appears: No Acute Distress, Chronically Ill - Head Exam Head Exam: ATRAUMATIC, NORMAL INSPECTION - Eye Exam Eye Exam: EOMI, Normal appearance, Periorbital tenderness - Neck Exam Neck Exam: Normal Inspection. absent: Tenderness - Respiratory Exam Respiratory Exam: Clear to Ausculation Bilateral, NORMAL BREATHING PATTERN - Cardiovascular Exam Cardiovascular Exam: Tachycardia, Irregular Rhythm - GI/Abdominal Exam GI & Abdominal Exam: Soft, Tenderness - Extremities Exam Extremities Exam: Normal Inspection. absent: Tenderness - Neurological Exam Neurological Exam: Awake, CN II-XII Intact - Skin Skin Exam: Dry, Warm Assessment and Plan (1) Hx of stroke without residual deficits Status: Acute (2) History of hypertension Status: Chronic (3) JAY JAY (acute kidney injury) Status: Acute (4) Type 2 diabetes mellitus with diabetic nephropathy Status: Acute (5) Chronic kidney disease, stage III (moderate) Status: Acute (6) Proteinuria Status: Acute (7) Hyponatremia with excess extracellular fluid volume Status: Acute - Assessment and Plan (Free Text) Plan: continue dialysis MWF for now follow up chemistries stop lopid
--- NOTE | 2017-07-23 09:13 | CP.PCM.PN ---
<Buzz Roblero - Last Filed: 07/23/17 09:14> Subjective - Date & Time of Evaluation Date of Evaluation: 07/23/17 Time of Evaluation: 09:11 - Subjective Subjective: Surgery: Dr. Boyce Pt seen and examined. Pt is extubated. Pt continues to have abd pain. No N/V. Per nursing, 2 BMs overnight. Objective - Vital Signs/Intake and Output Vital Signs (last 24 hours): Temp Pulse Resp BP Pulse Ox 98.0 F 100 H 23 115/55 L 98 07/23/17 04:00 07/23/17 07:00 07/23/17 07:00 07/23/17 07:00 07/23/17 07:00 Intake and Output: 07/23/17 07/23/17 06:59 18:59 Intake Total 320 Output Total 320 Balance 0 - Medications Medications: Current Medications Albuterol/Ipratropium (Duoneb 3 Mg/0.5 Mg (3 Ml) Ud) 3 ml INH RQ6 [facility] Last Admin: 07/23/17 08:11 Dose: 3 ml Ascorbic Acid (Vitamin C 250 Mg Tab) 250 mg PO DAILY [facility] Last Admin: 07/22/17 11:59 Dose: 250 mg Benzocaine/Menthol (Cepacol Sore Throat) 1 love MT Q2 PRN PRN Reason: Sore Throat Last Admin: 07/17/17 20:25 Dose: 1 love Calcium Acetate (Phoslo) 1,334 mg PO TID [facility] Last Admin: 07/22/17 17:25 Dose: Not Given Clopidogrel Bisulfate (Plavix) 75 mg PO DAILY [facility] Last Admin: 07/22/17 12:00 Dose: 75 mg Cyproheptadine HCl (Periactin) 4 mg PO BID [facility] Last Admin: 07/22/17 17:25 Dose: Not Given Donepezil HCl (Aricept) 10 mg PO HS [facility] Last Admin: 07/22/17 22:10 Dose: 10 mg Ferrous Sulfate (Feosol) 325 mg PO Q12H [facility] Last Admin: 07/23/17 05:44 Dose: 325 mg Gemfibrozil (Lopid) 600 mg PO BID [facility] Last Admin: 07/22/17 17:25 Dose: Not Given Heparin Sodium (Porcine) (Heparin) 5,000 units SC Q12 [facility] Last Admin: 07/22/17 22:11 Dose: 5,000 units Home Med (Fesoterodine Fumarate [Toviaz]) 8 mg PO DAILY [facility] Hydromorphone HCl (Dilaudid) 0.5 mg IVP Q6H PRN PRN Reason: Pain, severe (8-10) Last Admin: 07/23/17 04:32 Dose: 0.5 mg Tigecycline 50 mg/ Dextrose 100 mls @ 100 mls/hr IVPB Q12H [facility] Last Admin: 07/23/17 00:46 Dose: 100 mls/hr Metronidazole 250 mg/ (Miscellaneous) 50 mls @ 100 mls/hr IVPB Q8 [facility] Last Admin: 07/23/17 05:39 Dose: 100 mls/hr Norepinephrine Bitartrate 4 mg (/ Sodium Chloride) 254 mls @ 15.24 mls/hr IV .[id number] PRN; Protocol; 4 MCG/MIN PRN Reason: TITRATE PER MD ORDER Last Titration: 07/22/17 13:30 Dose: 0 mcg/min, 0 mls/hr Propofol (Diprivan) 1,000 mg in 100 mls @ 1.943 mls/hr IV .Q24H PRN; Protocol; 5 MCG/KG/MIN PRN Reason: TITRATE PER MD ORDER Last Titration: 07/21/17 01:00 Dose: 0 mcg/kg/min, 0 mls/hr Insulin Human Regular (Novolin R) 0 unit SC Q6 [facility] PRN Reason: Protocol Last Admin: 07/23/17 00:07 Dose: Not Given Latanoprost (Xalatan Opht) 0 ml OU HS [facility] Last Admin: 07/22/17 22:17 Dose: 2.5 ml Levothyroxine Sodium (Synthroid) 50 mcg PO DAILY@0630 [facility] Last Admin: 07/23/17 05:39 Dose: 50 mcg Lorazepam (Ativan) 2 mg IVP Q4 PRN PRN Reason: Anxiety Meclizine HCl (Antivert) 12.5 mg PO TID [facility] Last Admin: 07/22/17 17:25 Dose: Not Given Metoprolol Succinate (Toprol Xl) 100 mg PO DAILY [facility] Last Admin: 07/14/17 13:41 Dose: 100 mg Ondansetron HCl (Zofran Inj) 4 mg IVP Q6 PRN PRN Reason: Nausea/Vomiting Pantoprazole Sodium (Protonix Inj) 40 mg IVP DAILY [facility] Last Admin: 07/22/17 11:59 Dose: 40 mg Rosuvastatin Calcium (Crestor) 10 mg PO HS [facility] Last Admin: 07/22/17 22:10 Dose: 10 mg Saccharomyces Boulardii (Florastor) 250 mg PO BID [facility] Last Admin: 07/22/17 17:25 Dose: Not Given - Labs Labs: 07/23/17 06:26 07/23/17 06:26 PT 14.3 SECONDS (9.7-12.2) H 07/16/17 04:00 INR 1.3 07/16/17 04:00 APTT 29 SECONDS (21-34) 07/13/17 20:04 - Constitutional Appears: Non-toxic, No Acute Distress - Head Exam Head Exam: ATRAUMATIC, NORMOCEPHALIC - Eye Exam Eye Exam: EOMI - ENT Exam ENT Exam: Mucous Membranes Moist - Neck Exam Neck Exam: Full ROM - Respiratory Exam Respiratory Exam: NORMAL BREATHING PATTERN. absent: Accessory Muscle Use, Respiratory Distress - GI/Abdominal Exam GI & Abdominal Exam: Distended (increased from yesterday), Soft, Tenderness. absent: Firm, Guarding, Rigid, Rebound - Extremities Exam Extremities Exam: absent: Calf Tenderness, Pedal Edema - Neurological Exam Neurological Exam: Alert, Awake Assessment and Plan - Assessment and Plan (Free Text) Assessment: 82M s/p ERCP w/ hepatic subcapsular/extracapsular air and JAY JAY, s/p permacath POD #3 -Increased abd distension, will order AXR -continue w. abx -monitor bowel fxn -serial abd exams -d/w attending Osbaldo PGY3 <Manohar Boyce B - Last Filed: 07/25/17 19:50> Objective - Vital Signs/Intake and Output Vital Signs (last 24 hours): Temp Pulse Resp BP Pulse Ox 98.6 F 87 22 154/71 H 100 07/25/17 16:00 07/25/17 19:00 07/25/17 19:00 07/25/17 18:28 07/25/17 19:00 Intake and Output: 07/25/17 07/26/17 18:59 06:59 Intake Total 1030 Output Total 235 Balance 795 - Medications Medications: Current Medications Albuterol Sulfate (Albuterol 0.042% Inhal Ruby (1.25mg/3ml) Ud) 1.25 mg INH RQ6 PRN PRN Reason: Wheezing Ascorbic Acid (Vitamin C 250 Mg Tab) 250 mg PO DAILY [facility] Last Admin: 07/25/17 09:12 Dose: 250 mg Benzocaine/Menthol (Cepacol Sore Throat) 1 love MT Q2 PRN PRN Reason: Sore Throat Last Admin: 07/25/17 09:12 Dose: 1 love Calcium Acetate (Phoslo) 1,334 mg PO TID [facility] Last Admin: 07/25/17 18:12 Dose: 1,334 mg Clopidogrel Bisulfate (Plavix) 75 mg PO DAILY [facility] Last Admin: 07/25/17 09:12 Dose: 75 mg Cyproheptadine HCl (Periactin) 4 mg PO BID [facility] Last Admin: 07/25/17 18:12 Dose: 4 mg Donepezil HCl (Aricept) 10 mg PO HS [facility] Last Admin: 07/24/17 21:38 Dose: 10 mg Epoetin Romel (Procrit) 10,000 unit IV MWF [facility] Ferrous Sulfate (Feosol) 325 mg PO Q12H [facility] Last Admin: 07/25/17 18:12 Dose: 325 mg Heparin Sodium (Porcine) (Heparin) 5,000 units SC Q12 [facility] Last Admin: 07/25/17 09:11 Dose: 5,000 units Home Med (Fesoterodine Fumarate [Toviaz]) 8 mg PO DAILY [facility] Hydromorphone HCl (Dilaudid) 0.5 mg IVP Q4 PRN PRN Reason: Pain, severe (8-10) Last Admin: 07/25/17 15:10 Dose: 0.5 mg Tigecycline 50 mg/ Dextrose 100 mls @ 100 mls/hr IVPB Q12H [facility] Last Admin: 07/25/17 12:18 Dose: 100 mls/hr Metronidazole 250 mg/ (Miscellaneous) 50 mls @ 100 mls/hr IVPB Q8 [facility] Last Admin: 07/25/17 13:21 Dose: 100 mls/hr Insulin Human Regular (Novolin R) 0 unit SC ACHS [facility] PRN Reason: Protocol Last Admin: 07/25/17 18:12 Dose: 3 unit Latanoprost (Xalatan Opht) 0 ml OU HS [facility] Last Admin: 07/24/17 21:38 Dose: 2.5 ml Levothyroxine Sodium (Synthroid) 50 mcg PO DAILY@0630 [facility] Last Admin: 07/25/17 06:03 Dose: 50 mcg Metoprolol Succinate (Toprol Xl) 100 mg PO DAILY [facility] Last Admin: 07/14/17 13:41 Dose: 100 mg Ondansetron HCl (Zofran Inj) 4 mg IVP Q6 PRN PRN Reason: Nausea/Vomiting Pantoprazole Sodium (Protonix Ec Tab) 40 mg PO DAILY [facility] Last Admin: 07/25/17 09:12 Dose: 40 mg Rosuvastatin Calcium (Crestor) 10 mg PO HS [facility] Last Admin: 07/24/17 21:36 Dose: 10 mg Saccharomyces Boulardii (Florastor) 250 mg PO BID [facility] Last Admin: 07/25/17 18:12 Dose: 250 mg - Labs Labs: 07/25/17 06:23 07/25/17 06:25 PT 14.3 SECONDS (9.7-12.2) H 07/16/17 04:00 INR 1.3 07/16/17 04:00 APTT 29 SECONDS (21-34) 07/13/17 20:04 Attending/Attestation - Attestation I have personally seen and examined this patient.: Yes I have fully participated in the care of the patient.: Yes I have reviewed all pertinent clinical information, including history, physical exam and plan: Yes Notes (Text): Pt was seen and examined at bedside Agree with above note and assessment Pt has Bowel ileus clinicaly Abdomen is distended AXR C/W IV antibiotics Plan d.w pt in detail.
[2017-07-23] MEDS: Saccharomyces Boulardi 250 mg Cap PO SCH ×2 (10:03→17:13)
--- NOTE | 2017-07-23 10:25 | RAD ---
HISTORY: abd distension COMPARISON: Portable abdomen KUB 07/18/2017. FINDINGS: BOWEL: Oral contrast appears to been of limited from the colon. Distended small and large bowel loops are appreciated distended with gas on a moderate basis in a pattern that reflects probable ileus though intermittent or partial distal small bowel obstruction is not completely excluded. No prominent free intraperitoneal gas identified. BONES: Normal. OTHER FINDINGS: Surgical clips are again seen the right upper quadrant abdomen. IMPRESSION: Distended small large-bowel loops are again seen filled with air without improvement or prominent worsening. Pattern remains nonspecific but may reflect a bowel ileus or even potential partial or intermittent distal small bowel obstruction. Continued clinical and radiographic monitor advised.
--- NOTE | 2017-07-23 11:12 | US ---
PROCEDURE: Sonographic evaluation of the left chest performed for thoracentesis HISTORY: left pleural effusion evalutation, please lilli COMPARISON: None TECHNIQUE: Sonographic evaluation of the chest was performed for purposes of thoracentesis to the curvilinear probe. FINDINGS: Ultrasound showed a small amount of pleural effusion. There are no septations on the provided images. IMPRESSION: Small amount of pleural effusions seen left chest.
--- NOTE | 2017-07-23 18:13 | CP.PCM.PN ---
Subjective - Date & Time of Evaluation Date of Evaluation: 07/23/17 Time of Evaluation: 18:10 - Subjective Subjective: Medical Attending Note: Patient see at bedside with [id number], Kurt and sister. Patient denies headache, reports chest pain, denies palpitation, reports abdominal pain, denies diarrhea, reports constipation, asking for laxative. Objective - Vital Signs/Intake and Output Vital Signs (last 24 hours): Temp Pulse Resp BP Pulse Ox 98.4 F 102 H 30 H 123/50 L 97 07/23/17 16:00 07/23/17 18:00 07/23/17 18:00 07/23/17 18:00 07/23/17 18:00 Intake and Output: 07/23/17 07/23/17 06:59 18:59 Intake Total 320 390 Output Total 320 295 Balance 0 95 - Medications Medications: Current Medications Albuterol Sulfate (Albuterol 0.042% Inhal Ruby (1.25mg/3ml) Ud) 1.25 mg INH RQ6 PRN PRN Reason: Wheezing Ascorbic Acid (Vitamin C 250 Mg Tab) 250 mg PO DAILY [facility] Last Admin: 07/23/17 10:05 Dose: 250 mg Benzocaine/Menthol (Cepacol Sore Throat) 1 love MT Q2 PRN PRN Reason: Sore Throat Last Admin: 07/17/17 20:25 Dose: 1 love Calcium Acetate (Phoslo) 1,334 mg PO TID [facility] Last Admin: 07/23/17 17:13 Dose: 1,334 mg Clopidogrel Bisulfate (Plavix) 75 mg PO DAILY [facility] Last Admin: 07/23/17 10:05 Dose: 75 mg Cyproheptadine HCl (Periactin) 4 mg PO BID [facility] Last Admin: 07/23/17 17:13 Dose: 4 mg Donepezil HCl (Aricept) 10 mg PO HS [facility] Last Admin: 07/22/17 22:10 Dose: 10 mg Ferrous Sulfate (Feosol) 325 mg PO Q12H [facility] Last Admin: 07/23/17 05:44 Dose: 325 mg Heparin Sodium (Porcine) (Heparin) 5,000 units SC Q12 [facility] Last Admin: 07/23/17 10:04 Dose: 5,000 units Home Med (Fesoterodine Fumarate [Toviaz]) 8 mg PO DAILY [facility] Hydromorphone HCl (Dilaudid) 0.5 mg IVP Q4 PRN PRN Reason: Pain, severe (8-10) Last Admin: 07/23/17 14:14 Dose: 0.5 mg Tigecycline 50 mg/ Dextrose 100 mls @ 100 mls/hr IVPB Q12H [facility] Last Admin: 07/23/17 12:14 Dose: 100 mls/hr Metronidazole 250 mg/ (Miscellaneous) 50 mls @ 100 mls/hr IVPB Q8 [facility] Last Admin: 07/23/17 13:05 Dose: 100 mls/hr Insulin Human Regular (Novolin R) 0 unit SC ACHS [facility] PRN Reason: Protocol Last Admin: 07/23/17 16:39 Dose: 3 unit Latanoprost (Xalatan Opht) 0 ml OU HS [facility] Last Admin: 07/22/17 22:17 Dose: 2.5 ml Levothyroxine Sodium (Synthroid) 50 mcg PO DAILY@0630 [facility] Last Admin: 07/23/17 05:39 Dose: 50 mcg Metoprolol Succinate (Toprol Xl) 100 mg PO DAILY [facility] Last Admin: 07/14/17 13:41 Dose: 100 mg Ondansetron HCl (Zofran Inj) 4 mg IVP Q6 PRN PRN Reason: Nausea/Vomiting Pantoprazole Sodium (Protonix Inj) 40 mg IVP DAILY [facility] Last Admin: 07/23/17 10:05 Dose: 40 mg Rosuvastatin Calcium (Crestor) 10 mg PO HS [facility] Last Admin: 07/22/17 22:10 Dose: 10 mg Saccharomyces Boulardii (Florastor) 250 mg PO BID [facility] Last Admin: 07/23/17 17:13 Dose: 250 mg - Labs Labs: 07/23/17 06:26 07/23/17 06:26 PT 14.3 SECONDS (9.7-12.2) H 07/16/17 04:00 INR 1.3 07/16/17 04:00 APTT 29 SECONDS (21-34) 07/13/17 20:04 - Constitutional Appears: Non-toxic, No Acute Distress - Head Exam Head Exam: NORMAL INSPECTION - Eye Exam Eye Exam: EOMI - ENT Exam ENT Exam: Mucous Membranes Moist - Respiratory Exam Respiratory Exam: Decreased Breath Sounds, Rales, NORMAL BREATHING PATTERN. absent: Stridor - Cardiovascular Exam Cardiovascular Exam: Tachycardia, RRR, +S1, +S2 - GI/Abdominal Exam GI & Abdominal Exam: Distended, Soft, Tenderness, Normal Bowel Sounds. absent: Guarding, Rigid, Rebound - Extremities Exam Extremities Exam: absent: Pedal Edema, Tenderness - Neurological Exam Neurological Exam: Alert, Awake - Skin Skin Exam: Dry, Normal Color, Warm Assessment and Plan - Assessment and Plan (Free Text) Assessment: Assessment & Plan (1) Cardiac Arrest PEA on 07/20/17 Assessment and Plan: * Status post-procedure; patient went into PEA on 07/20 ROSC returned; intubated 07/20/17-[id number] * Chest xray (07/22/17): moderate left pleural effusion with consolidative opacification in the left mid to lower lung zone. trace right pleural effusion with adjacent right basilar consolidation. cardiomeglay. calcification at the aortic knob Status: Acute (2) Chest pain Assessment and Plan: * Patient with atypical chest pain history * Cardio Dr. Chau does not feel that this is cardiac related * PEA on 07/21 * Per cardio note: patient does not appear to have CHF, will trend troponin * Discussed with cardio; no amiodarone needed * TSH, Free T4 are normal * ECHO 07/13/17: LV EF is WNL, moderate concentric LVH, Grade I abnormal relaxation pattern Status: Acute (3) ERCP Guidewire Perforation of Liver Capsule vs Peripheral Bile Duct Assessment and Plan: * s/p ERCP with removal of stent and sphincterotomy with Dr. Damian 07/13/17 * CXR 07/13/17 does not show air under diaphragm. * Chest CT 07/13/17 shows pneumobilia as well as possible free air beneath Right Hemidiaphragm within Paraesophagel soft tissues. * CT Abdomen/Pelvis 07/13/17 shows gas fluid and stranding in the subcapsular and extracapsular area around Left Lobe Liver. * CT Abdomen/Pelvis on 07/14/17 showed gas and fluid around left lobe liver and along inferior vena cava that is unchanged, no evidence of extravasation of oral contrast from stomach or duodenem. * Abdomen X Ray 07/16/17 showed NO obstruction. * CT Abdomen/Pelvis w/o contrast 07/19/17: Fluid re-identified, which appears similar in size and likely subcapsular in location. No nathan currently evident with in the collection, Small pneumobila. Moderate bilateral pleural effusions and associated consolidations. Small abomdinla ascites. Small pelvic free fluid. Thicken walled under distended urinary bladder which contains air, Pacheco catheter is present * GI Dr. Damian spoke with IR 07/15/17 and area is NOT amenable to percutaneous drainage. * Surgery Dr. Boyce consulted: no surgical intervention at this time and keep NPO with NGT for now * 07/21: patient intubated yesterday in light of events; with OGT * 07/22: Per GI note, "Repeat CT imaging reviewed by me showing no evidence of abdominal free air or worsening fluid collection, therefore no intervention warranted at this time If prolonged intubation time is anticipated, suggest NGT placement and beginning enteral feeding" Status: Acute (4) Enterococcus faecium Bacteremia * Infectious Disease (Dr. Langford) on the board * Started on Tigecycline 50 mg IV Q12H after 100 mg initial infusion (07/17/17) * Discontinued Meropenem, Ciprofloxicin, and Vancomycin (07/17/17) * 07/14/17: Enterococcus Faecium X2 * Blood Culture: 07/17/17: No growth after 48 hours (1 bottle negative for 4 days/the 2nd one supports Enterococcus Faecium) * Blood Culture: 07/20/17: No growth after 3 days X3 * On contact isolation Status: Acute (5). Atrial Fibrillation/Elevated Troponin * Cardiology (Dr. Chau) on board-->help appreciated * Amiodarone 900mg IV Q 24H * Toprol XL 100mg PO daily (held) * The Atrial Fibrillation is likely secondary to the increased sympathetic tone from the Sepsis and the elevated Troponin likely secondary to the Atrial Fibrillation * Repeat EKG (NSR) 07/21/17 Status: Acute (6) Bilateral Pneumonia * CT Abdomen/Pelvis 07/13/17 showed bibasilar lingular and right middle lobe mild nonspecific infiltrates consistent with atelectasis/pneumonia * As patient was admitted to hospital within the last month (for Left Buttock Abscess) and has been on antibiotics, this is likely Health Care Associated Pneumonia with increased risk for Multidrug Resistence therefore he was treated with the following: * Meropenem 500 mg IV Q6H (07/14/17 through 07/17/17), Ciprofloxacin 400 mg IV Q12H (07/14/17 through 07/16/17),Vancomycin 1 gm IV Q24H (07/14/17 through ) and then patient started on Tigecycline as mentioned above * CT Abdomen/Pelvis w/o contrast 07/19/17: Fluid re-identified, which appears similar in size and likely subcapsular in location. No nathan currently evident with in the collection, Small pneumobila. Moderate bilateral pleural effusions and associated consolidations. Small abomdinla ascites. Small pelvic free fluid. Thicken walled under distended urinary bladder which contains air, Pacheco catheter is present * Chest xray (07/22/17): moderate left pleural effusion with consolidative opacification in the left mid to lower lung zone. trace right pleural effusion with adjacent right basilar consolidation. cardiomeglay. calcification at the aortic knob * Urine Legionella Ag is negative * Urine Strep pneumoniae Ag: non detected * Mycoplasma IgM is 81 (negative) Ig.07 * Influenza A/B is negative * Urine Culture is negative Status: Acute (7). Anion Gap Metabolic Acidosis * Sepsis: CODE SEPSIS was called 07/14/17 * See Assessment and Plans #2, #3, #5 * Due to the severe acidosis he was also started on D5W with 3 amps of NaHCO3 running at 100 ml/hour and this had resolved therefore the D5W NaHCO3 was discontinued 07/15/17. However the Acidosis returned and is likely secondary to the worsening Renal Function/Sepsis. Status: Acute (8). Hyperkalemia * Likely secondary to the Anion Gap Metabolic Acidosis * See Assessment and Plans #2 and #3 * Mild Status: Acute (9). CKD Stage III/Worsening Renal Failure/Hyponatremia * Nephrology Dr. Oconnell * The worsening Renal Function likely secondary to the Sepsis * Worsening Hyponatremia likely dilutional from the IVF initially used to help with the Renal Function. IVF have been discontinued. * Lasix 60 mg IV 2x/day started 07/18/17 to help with the Hyponatremia however there was no significant improvement on 07/19/17 * Despite the Lasix, renal function worsening 07/19/17. [id number] Dr. Larsen was notified 07/19/17 and HD orders have been provided by Dr. Larsen to HD Nurse Ramon Garibay to start HD once Dialysis Catheter is placed by the Surgical Team which is planned for morning of 07/20/17. * 07/21: patient started dialysis on 07/20; 800 ML removed * 07/22: patient to have 2nd session of dialysis today; per discussion with nurse Status: Acute on Chronic (10). Headache with Hx CVA Assessment and Plan: * CT Head 07/13/17 was negative for bleed or acute process * If NO surgical/IR intervention will then restart ASA * held Plavix 75 mg PO 1x/day since 07/14/17-->07/22:will need to discuss with surgery if plavix can be restarted in light of stroke hx Status: Acute (11) AD (Alzheimer's disease) Assessment and Plan: * Aricept 10 mg PO daily. Status: Chronic (12) Choledocholithiasis Assessment and Plan: * s/p ERCP with removal of stent and sphincterotomy with Dr. Damian 07/13/17 * 07/22: Per GI note, "Repeat CT imaging reviewed by me showing no evidence of abdominal free air or worsening fluid collection, therefore no intervention warranted at this time If prolonged intubation time is anticipated, suggest NGT placement and beginning enteral feeding" Status: Acute (13) Anemia Assessment and Plan: * Likely secondary to Chronic Disease: CKD Stage III * Resume Ferrous Sulfate 325 mg PO daily. * HgB/Hct are stable Status: Chronic (14) Hx Left Gluteal abscess Assessment and Plan: * Was I&D by surgery team on 06/26/17 * Treated with Bactrim 800/160 PO Q12H for 7 days S/P discharge 06/27/17 Status: Chronic (15) HLD (hyperlipidemia) Assessment and Plan: * Lopid 600 mg PO BID * Patient takes Lipitor 80 mg PO HS which is not on formulary therefore Crestor 10 mg PO HS (renal dosed). Status: Chronic (16) HTN (hypertension) Assessment and Plan: * As the patient's blood pressure is on the low end and he is off Amiodarone Drip since 07/21, therefore the following medications are on HOLD: Amlodipine 10 mg PO daily, Metoprolol XL 100 mg PO daily, and Losartan 100 mg PO daily are all on HOLD * 07/22: patient is off Amiodarone drip since 07/21; but patient is back in atrial fibrillation but is due for second dialysis today. patient's anti- hypertensives remain on hold Status: Chronic (17) Hx of stroke without residual deficits Assessment and Plan: * CT Head 07/13/17 was negative for bleed or acute process * Crestor 10 mg PO HS (renal dosed). * Hold ASA as mentioned above * Hold Plavix 75 mg PO 1x/day since 07/14/17--->will need to discuss with surgery in regards to restart aspirin/plavix Status: Chronic (18) Diabetes Assessment and Plan: * Blood Glucose elevated at times: he is on clear liquids * ISS Q6H * Accuchecks Q6H Status: Chronic (19) History of hypothyroidism Assessment and Plan: * Levothyroxine 50 mcg PO daily * TSH, Free T4 are normal Status: Chronic (20) Overactive bladder Assessment and Plan: * Festerodine 8 mg PO 1x/day * Enlarged Prostate on CT Abdomen/Pelvis * PSA ordered 07/14/17 but I do not see results. I believe he can follow this up as an outpatient. Status: Chronic (21) Hx of glaucoma Assessment and Plan: * Patient's home med Travatan ggt not on formulary. * Started Xalatan ggt in bilateral eyes. Status: Chronic (22) Hx of gastroesophageal reflux (GERD) Assessment and Plan: * Protonix 40 mg IV daily Status: Chronic (23) Prophylactic measure Assessment and Plan: * Protonix 40 mg daily * SCDs * Hold chemical anticoagulation for now for reasons mentioned above * Ascorbic Acid 250 mg PO daily * Florastor 250 mg PO 2x/day * Zofran 4 mg IV Q6H PRN N/V * Morphine 0.5 mg IV Q6H PRN Severe Pain with Holding Parameters (hesitant to give anything more due to the low end of normal Blood Pressure) * Intubated on 07/20/17; extubated 07/22/17; on Pressor 07/21; off sedation; off amiodarone IV 07/21
--- NOTE | 2017-07-23 19:31 | CP.PCM.PN ---
Subjective - Date & Time of Evaluation Date of Evaluation: 07/23/17 Time of Evaluation: 07:00 - Subjective Subjective: slow progress repeat blood c/s neg will need 21 days rx and follow up imaging Objective - Vital Signs/Intake and Output Vital Signs (last 24 hours): Temp Pulse Resp BP Pulse Ox 98.4 F 102 H 30 H 123/50 L 97 07/23/17 16:00 07/23/17 18:00 07/23/17 18:00 07/23/17 18:00 07/23/17 18:00 Intake and Output: 07/23/17 07/24/17 18:59 06:59 Intake Total 390 Output Total 295 Balance 95 - Medications Medications: Current Medications Albuterol Sulfate (Albuterol 0.042% Inhal Ruby (1.25mg/3ml) Ud) 1.25 mg INH RQ6 PRN PRN Reason: Wheezing Ascorbic Acid (Vitamin C 250 Mg Tab) 250 mg PO DAILY [facility] Last Admin: 07/23/17 10:05 Dose: 250 mg Benzocaine/Menthol (Cepacol Sore Throat) 1 love MT Q2 PRN PRN Reason: Sore Throat Last Admin: 07/17/17 20:25 Dose: 1 love Calcium Acetate (Phoslo) 1,334 mg PO TID [facility] Last Admin: 07/23/17 17:13 Dose: 1,334 mg Clopidogrel Bisulfate (Plavix) 75 mg PO DAILY [facility] Last Admin: 07/23/17 10:05 Dose: 75 mg Cyproheptadine HCl (Periactin) 4 mg PO BID [facility] Last Admin: 07/23/17 17:13 Dose: 4 mg Donepezil HCl (Aricept) 10 mg PO HS [facility] Last Admin: 07/22/17 22:10 Dose: 10 mg Ferrous Sulfate (Feosol) 325 mg PO Q12H [facility] Last Admin: 07/23/17 18:17 Dose: 325 mg Heparin Sodium (Porcine) (Heparin) 5,000 units SC Q12 [facility] Last Admin: 07/23/17 10:04 Dose: 5,000 units Home Med (Fesoterodine Fumarate [Toviaz]) 8 mg PO DAILY [facility] Hydromorphone HCl (Dilaudid) 0.5 mg IVP Q4 PRN PRN Reason: Pain, severe (8-10) Last Admin: 07/23/17 18:16 Dose: 0.5 mg Tigecycline 50 mg/ Dextrose 100 mls @ 100 mls/hr IVPB Q12H [facility] Last Admin: 07/23/17 12:14 Dose: 100 mls/hr Metronidazole 250 mg/ (Miscellaneous) 50 mls @ 100 mls/hr IVPB Q8 [facility] Last Admin: 07/23/17 13:05 Dose: 100 mls/hr Insulin Human Regular (Novolin R) 0 unit SC ACHS [facility] PRN Reason: Protocol Last Admin: 07/23/17 16:39 Dose: 3 unit Latanoprost (Xalatan Opht) 0 ml OU HS [facility] Last Admin: 07/22/17 22:17 Dose: 2.5 ml Levothyroxine Sodium (Synthroid) 50 mcg PO DAILY@0630 [facility] Last Admin: 07/23/17 05:39 Dose: 50 mcg Metoprolol Succinate (Toprol Xl) 100 mg PO DAILY [facility] Last Admin: 07/14/17 13:41 Dose: 100 mg Ondansetron HCl (Zofran Inj) 4 mg IVP Q6 PRN PRN Reason: Nausea/Vomiting Pantoprazole Sodium (Protonix Inj) 40 mg IVP DAILY [facility] Last Admin: 07/23/17 10:05 Dose: 40 mg Rosuvastatin Calcium (Crestor) 10 mg PO HS [facility] Last Admin: 07/22/17 22:10 Dose: 10 mg Saccharomyces Boulardii (Florastor) 250 mg PO BID [facility] Last Admin: 07/23/17 17:13 Dose: 250 mg - Labs Labs: 07/23/17 06:26 07/23/17 06:26 PT 14.3 SECONDS (9.7-12.2) H 07/16/17 04:00 INR 1.3 07/16/17 04:00 APTT 29 SECONDS (21-34) 07/13/17 20:04 Assessment and Plan (1) JAY JAY (acute kidney injury) Status: Acute (2) CVA, old, cognitive deficits Status: Acute (3) Chronic kidney disease, stage III (moderate) Status: Acute (4) Headache Status: Acute (5) Hx of gastroesophageal reflux (GERD) Status: Acute
[2017-07-23] MEDS: Latanoprost 2.5 ml Opht Soln OU SCH (22:19)
[2017-07-24] MEDS: Tigecycline 50 MG in Dextrose 5% In Water 100 ML IVPB SCH ×2 (01:30→13:39)
[2017-07-24] MEDS: HYDROmorphone 0.5 mg/0.5 ml ISec IVP PRN ×5 (04:04→21:36)
[2017-07-24] MEDS: metroNIDAZOLE IV 500 mg/100 ml 250 MG in Premixed IV 1 EA IVPB SCH ×3 (05:10→21:35)
[2017-07-24] MEDS: Levothyroxine 50 MCG TAB PO SCH (06:10)
[2017-07-24 06:34] LABS: BASO # 0.1 K/uL (0.0-0.2); BASO % 0.5 % (0.0-2.0); EOS # 0.4 K/uL (0.0-0.7); EOS % 2.4 % (0.0-4.0); HEMATOCRIT 25.3 % (35.0-51.0); LYMPH # 1.7 K/uL (1.0-4.3); LYMPH % 10.9 % (20.0-40.0); MEAN CELL VOLUME 82.6 fL (80.0-94.0); MEAN CORPUSCULAR HEMOGLOBIN 27.3 pg (27.0-31.0); MEAN CORPUSCULAR HGB CONC 33.1 g/dL (33.0-37.0); MEAN PLATELET VOLUME 9.2 fL (7.2-11.7); MONO # 1.6 K/uL (0.0-0.8); MONO % 10.6 % (0.0-10.0); RED CELL DISTRIBUTION WIDTH 15.6 % (11.5-14.5); WHITE BLOOD COUNT 15.3 K/uL (4.8-10.8)
[2017-07-24 06:37] LABS: POTASSIUM 3.7 mmol/L (3.6-5.2)
[2017-07-24 06:39] LABS: BILIRUBIN,TOTAL 0.6 mg/dL (0.2-1.3)
[2017-07-24 06:40] LABS: ALB/GLOB RATIO 0.8 (1.0-2.1); CALCIUM 7.8 mg/dl (8.6-10.4); MAGNESIUM 2.2 mg/dL (1.6-2.3); PHOSPHOROUS 5.9 mg/dL (2.5-4.5); TOTAL PROTEIN 5.6 g/dL (6.3-8.3)
[2017-07-24] MEDS: (Novolin R) Insulin Human Regular 100 units/ml vial SC SCH ×5 (08:01→22:00)
--- NOTE | 2017-07-24 08:03 | CP.PCM.PN ---
<BradDianne - Last Filed: 07/24/17 14:19> Subjective - Date & Time of Evaluation Date of Evaluation: 07/24/17 Time of Evaluation: 07:57 - Subjective Subjective: Gastroenterology Fellow/PGY5 Progress Note Patient remains stable overnight. Notes minimal improvement in abdominal pain. Tolerated clear liquid diet. One bowel movement overnight. A 12-point review of systems not completed due to advanced Dementia. Objective - Vital Signs/Intake and Output Vital Signs (last 24 hours): Temp Pulse Resp BP Pulse Ox 98.3 F 91 H 22 97/70 L 97 07/24/17 04:00 07/24/17 07:01 07/24/17 07:01 07/24/17 07:01 07/23/17 22:00 Intake and Output: 07/24/17 07/24/17 06:59 18:59 Intake Total 300 Output Total 355 35 Balance -55 -35 - Medications Medications: Current Medications Albuterol Sulfate (Albuterol 0.042% Inhal Ruby (1.25mg/3ml) Ud) 1.25 mg INH RQ6 PRN PRN Reason: Wheezing Ascorbic Acid (Vitamin C 250 Mg Tab) 250 mg PO DAILY [facility] Last Admin: 07/23/17 10:05 Dose: 250 mg Benzocaine/Menthol (Cepacol Sore Throat) 1 love MT Q2 PRN PRN Reason: Sore Throat Last Admin: 07/17/17 20:25 Dose: 1 love Calcium Acetate (Phoslo) 1,334 mg PO TID [facility] Last Admin: 07/23/17 17:13 Dose: 1,334 mg Clopidogrel Bisulfate (Plavix) 75 mg PO DAILY [facility] Last Admin: 07/23/17 10:05 Dose: 75 mg Cyproheptadine HCl (Periactin) 4 mg PO BID [facility] Last Admin: 07/23/17 17:13 Dose: 4 mg Donepezil HCl (Aricept) 10 mg PO HS [facility] Last Admin: 07/23/17 21:14 Dose: 10 mg Ferrous Sulfate (Feosol) 325 mg PO Q12H [facility] Last Admin: 07/24/17 06:10 Dose: 325 mg Heparin Sodium (Porcine) (Heparin) 5,000 units SC Q12 [facility] Last Admin: 07/23/17 21:16 Dose: 5,000 units Home Med (Fesoterodine Fumarate [Toviaz]) 8 mg PO DAILY [facility] Hydromorphone HCl (Dilaudid) 0.5 mg IVP Q4 PRN PRN Reason: Pain, severe (8-10) Last Admin: 07/24/17 04:04 Dose: 0.5 mg Tigecycline 50 mg/ Dextrose 100 mls @ 100 mls/hr IVPB Q12H [facility] Last Admin: 07/24/17 01:30 Dose: 100 mls/hr Metronidazole 250 mg/ (Miscellaneous) 50 mls @ 100 mls/hr IVPB Q8 [facility] Last Admin: 07/24/17 05:10 Dose: 100 mls/hr Insulin Human Regular (Novolin R) 0 unit SC ACHS [facility] PRN Reason: Protocol Last Admin: 07/23/17 21:40 Dose: Not Given Latanoprost (Xalatan Opht) 0 ml OU HS [facility] Last Admin: 07/23/17 22:19 Dose: 2.5 ml Levothyroxine Sodium (Synthroid) 50 mcg PO DAILY@0630 [facility] Last Admin: 07/24/17 06:10 Dose: 50 mcg Metoprolol Succinate (Toprol Xl) 100 mg PO DAILY [facility] Last Admin: 07/14/17 13:41 Dose: 100 mg Ondansetron HCl (Zofran Inj) 4 mg IVP Q6 PRN PRN Reason: Nausea/Vomiting Pantoprazole Sodium (Protonix Ec Tab) 40 mg PO DAILY [facility] Rosuvastatin Calcium (Crestor) 10 mg PO HS [facility] Last Admin: 07/23/17 21:15 Dose: 10 mg Saccharomyces Boulardii (Florastor) 250 mg PO BID [facility] Last Admin: 07/23/17 17:13 Dose: 250 mg - Labs Labs: 07/24/17 06:17 07/24/17 06:17 PT 14.3 SECONDS (9.7-12.2) H 07/16/17 04:00 INR 1.3 07/16/17 04:00 APTT 29 SECONDS (21-34) 07/13/17 20:04 - Constitutional Appears: Non-toxic, No Acute Distress - Head Exam Head Exam: ATRAUMATIC, NORMOCEPHALIC - Eye Exam Eye Exam: EOMI, PERRL Pupil Exam: PERRL. absent: Miosis, Mydriatic - ENT Exam ENT Exam: Mucous Membranes Moist, Normal Oropharynx Additional comments: left Permcath C/D/I - Neck Exam Neck Exam: Full ROM, Normal Inspection - Respiratory Exam Respiratory Exam: Clear to Ausculation Bilateral. absent: Rales, Rhonchi, Wheezes - Cardiovascular Exam Cardiovascular Exam: RRR, +S1, +S2. absent: Gallop, Rubs - GI/Abdominal Exam GI & Abdominal Exam: Distended, Soft, Tenderness, Normal Bowel Sounds. absent: Firm, Guarding, Rigid, Organomegaly, Rebound Additional comments: mild distension, mild tenderness to palpation - Extremities Exam Extremities Exam: Normal Inspection. absent: Pedal Edema - Neurological Exam Neurological Exam: Alert, Awake - Psychiatric Exam Psychiatric exam: Normal Affect, Normal Mood - Skin Skin Exam: Dry, Intact, Normal Color, Warm Assessment and Plan - Assessment and Plan (Free Text) Assessment: 82 year old male with history of Diabetes, Hyperlipidemia, Hypertension, Hypothyroidism, CKD, Alzheimer's Dementia, CVA on Plavix, and cholangitis s/p ERCP with CBD stent (04/2017). Active treatment of renal failure on HD, day 1 ( 07/22) post extubation for hypoxic VDRF s/p PEA arrest with ROSC (07/20), HCAP, E. faecium Bacteremia with blood culture negative at 48 hours, and ERCP guidewire pneumoperitoneum with hepatic subcapsular/extracapsular fluid collection with conservative management. Plan: >tolerating clear liquids, advance to full liquid diet >continue conservative management of hepatic subcapsular fluid collection >07/[address] A/P- unchanged fluid collection >ID managing- broad spectrum antibiotics >nephrology managing- 07/20 and 07/22 received dialysis >will follow clinical course <Gavino Damian - Last Filed: 07/24/17 17:19> Objective - Vital Signs/Intake and Output Vital Signs (last 24 hours): Temp Pulse Resp BP Pulse Ox 97.3 F L 99 H 18 127/64 100 07/24/17 16:00 07/24/17 16:00 07/24/17 16:00 07/24/17 16:24 07/24/17 16:00 Intake and Output: 07/24/17 07/24/17 06:59 18:59 Intake Total 300 490 Output Total 355 160 Balance -55 330 - Medications Medications: Current Medications Albuterol Sulfate (Albuterol 0.042% Inhal Ruby (1.25mg/3ml) Ud) 1.25 mg INH RQ6 PRN PRN Reason: Wheezing Ascorbic Acid (Vitamin C 250 Mg Tab) 250 mg PO DAILY [facility] Last Admin: 07/24/17 09:29 Dose: 250 mg Benzocaine/Menthol (Cepacol Sore Throat) 1 love MT Q2 PRN PRN Reason: Sore Throat Last Admin: 07/17/17 20:25 Dose: 1 love Calcium Acetate (Phoslo) 1,334 mg PO TID [facility] Last Admin: 07/24/17 13:39 Dose: 1,334 mg Clopidogrel Bisulfate (Plavix) 75 mg PO DAILY [facility] Last Admin: 07/24/17 09:32 Dose: 75 mg Cyproheptadine HCl (Periactin) 4 mg PO BID [facility] Last Admin: 07/24/17 09:32 Dose: 4 mg Donepezil HCl (Aricept) 10 mg PO HS [facility] Last Admin: 07/23/17 21:14 Dose: 10 mg Epoetin Romel (Procrit) 10,000 unit IV MWF [facility] Ferrous Sulfate (Feosol) 325 mg PO Q12H [facility] Last Admin: 07/24/17 06:10 Dose: 325 mg Heparin Sodium (Porcine) (Heparin) 5,000 units SC Q12 [facility] Last Admin: 07/24/17 09:29 Dose: 5,000 units Home Med (Fesoterodine Fumarate [Toviaz]) 8 mg PO DAILY [facility] Hydromorphone HCl (Dilaudid) 0.5 mg IVP Q4 PRN PRN Reason: Pain, severe (8-10) Last Admin: 07/24/17 12:47 Dose: 0.5 mg Tigecycline 50 mg/ Dextrose 100 mls @ 100 mls/hr IVPB Q12H [facility] Last Admin: 07/24/17 13:39 Dose: 100 mls/hr Metronidazole 250 mg/ (Miscellaneous) 50 mls @ 100 mls/hr IVPB Q8 [facility] Last Admin: 07/24/17 15:36 Dose: 100 mls/hr Insulin Human Regular (Novolin R) 0 unit SC ACHS [facility] PRN Reason: Protocol Last Admin: 07/24/17 13:38 Dose: 2 unit Latanoprost (Xalatan Opht) 0 ml OU HS [facility] Last Admin: 07/23/17 22:19 Dose: 2.5 ml Levothyroxine Sodium (Synthroid) 50 mcg PO DAILY@0630 [facility] Last Admin: 07/24/17 06:10 Dose: 50 mcg Metoprolol Succinate (Toprol Xl) 100 mg PO DAILY [facility] Last Admin: 07/14/17 13:41 Dose: 100 mg Ondansetron HCl (Zofran Inj) 4 mg IVP Q6 PRN PRN Reason: Nausea/Vomiting Pantoprazole Sodium (Protonix Ec Tab) 40 mg PO DAILY [facility] Last Admin: 07/24/17 09:30 Dose: 40 mg Rosuvastatin Calcium (Crestor) 10 mg PO HS [facility] Last Admin: 07/23/17 21:15 Dose: 10 mg Saccharomyces Boulardii (Florastor) 250 mg PO BID [facility] Last Admin: 07/24/17 09:29 Dose: 250 mg - Labs Labs: 07/24/17 06:17 07/24/17 06:17 PT 14.3 SECONDS (9.7-12.2) H 07/16/17 04:00 INR 1.3 07/16/17 04:00 APTT 29 SECONDS (21-34) 07/13/17 20:04 Attending/Attestation - Attestation I have personally seen and examined this patient.: Yes I have fully participated in the care of the patient.: Yes I have reviewed all pertinent clinical information, including history, physical exam and plan: Yes Notes (Text): 07/24/17 17:18 82 year old male with h/o DM, HTN, HLD, Hypothyroidism, Dementia, CKD, h/o cholangitis s/p ERCP with stent, subsequent ERCP complciated by guidewire perforation, bacteremia/sepsis, renal failure, dialysis, respiratory failure requiring mechanical ventilation. 1. Perforation of bile duct 2. Other injury of liver Plan: -off vent and pressors -tolerated liquid diet -advance diet to full -continue tigacycline/flagyl per id -repeat blood cultures ngtd -dialysis per nephrology today -supportive care
--- NOTE | 2017-07-24 09:10 | CP.PCM.PN ---
Subjective - Subjective Subjective: Surgery Progress Note for Dr. Boyce Pt seen and examined at beside resting comfortably. Pt continues to complain of abdominal pain. No incidence of nausea or vomiting; patient had one BM overnight. Objective - Vital Signs/Intake and Output Vital Signs (last 24 hours): Temp Pulse Resp BP Pulse Ox 97.4 F L 94 H 24 146/70 97 07/24/17 08:00 07/24/17 08:30 07/24/17 08:30 07/24/17 08:30 07/24/17 08:30 Intake and Output: 07/24/17 07/24/17 06:59 18:59 Intake Total 300 240 Output Total 355 85 Balance -55 155 - Medications Medications: Current Medications Albuterol Sulfate (Albuterol 0.042% Inhal Ruby (1.25mg/3ml) Ud) 1.25 mg INH RQ6 PRN PRN Reason: Wheezing Ascorbic Acid (Vitamin C 250 Mg Tab) 250 mg PO DAILY [facility] Last Admin: 07/23/17 10:05 Dose: 250 mg Benzocaine/Menthol (Cepacol Sore Throat) 1 love MT Q2 PRN PRN Reason: Sore Throat Last Admin: 07/17/17 20:25 Dose: 1 love Calcium Acetate (Phoslo) 1,334 mg PO TID [facility] Last Admin: 07/23/17 17:13 Dose: 1,334 mg Clopidogrel Bisulfate (Plavix) 75 mg PO DAILY [facility] Last Admin: 07/23/17 10:05 Dose: 75 mg Cyproheptadine HCl (Periactin) 4 mg PO BID [facility] Last Admin: 07/23/17 17:13 Dose: 4 mg Donepezil HCl (Aricept) 10 mg PO HS [facility] Last Admin: 07/23/17 21:14 Dose: 10 mg Ferrous Sulfate (Feosol) 325 mg PO Q12H [facility] Last Admin: 07/24/17 06:10 Dose: 325 mg Heparin Sodium (Porcine) (Heparin) 5,000 units SC Q12 [facility] Last Admin: 07/23/17 21:16 Dose: 5,000 units Home Med (Fesoterodine Fumarate [Toviaz]) 8 mg PO DAILY [facility] Hydromorphone HCl (Dilaudid) 0.5 mg IVP Q4 PRN PRN Reason: Pain, severe (8-10) Last Admin: 07/24/17 08:13 Dose: 0.5 mg Tigecycline 50 mg/ Dextrose 100 mls @ 100 mls/hr IVPB Q12H [facility] Last Admin: 07/24/17 01:30 Dose: 100 mls/hr Metronidazole 250 mg/ (Miscellaneous) 50 mls @ 100 mls/hr IVPB Q8 [facility] Last Admin: 07/24/17 05:10 Dose: 100 mls/hr Insulin Human Regular (Novolin R) 0 unit SC ACHS [facility] PRN Reason: Protocol Last Admin: 07/24/17 08:01 Dose: 2 unit Latanoprost (Xalatan Opht) 0 ml OU HS [facility] Last Admin: 07/23/17 22:19 Dose: 2.5 ml Levothyroxine Sodium (Synthroid) 50 mcg PO DAILY@0630 [facility] Last Admin: 07/24/17 06:10 Dose: 50 mcg Metoprolol Succinate (Toprol Xl) 100 mg PO DAILY [facility] Last Admin: 07/14/17 13:41 Dose: 100 mg Ondansetron HCl (Zofran Inj) 4 mg IVP Q6 PRN PRN Reason: Nausea/Vomiting Pantoprazole Sodium (Protonix Ec Tab) 40 mg PO DAILY [facility] Rosuvastatin Calcium (Crestor) 10 mg PO HS [facility] Last Admin: 07/23/17 21:15 Dose: 10 mg Saccharomyces Boulardii (Florastor) 250 mg PO BID [facility] Last Admin: 07/23/17 17:13 Dose: 250 mg - Labs Labs: 07/24/17 06:17 07/24/17 06:17 PT 14.3 SECONDS (9.7-12.2) H 07/16/17 04:00 INR 1.3 07/16/17 04:00 APTT 29 SECONDS (21-34) 07/13/17 20:04
[2017-07-24] MEDS: Saccharomyces Boulardi 250 mg Cap PO SCH ×2 (09:29→17:23)
[2017-07-24] MEDS: Pantoprazole 40 mg EC Tab PO SCH (09:30)
--- NOTE | 2017-07-24 13:12 | CP.PCM.PN ---
Subjective - Date & Time of Evaluation Date of Evaluation: 07/24/17 Time of Evaluation: 13:09 - Subjective Subjective: Remains about same UO-600ml phos elevated- on binders Hg decreased- can start ESAs Due for dialysis today On liquid diet Still with abdominal pains Objective - Vital Signs/Intake and Output Vital Signs (last 24 hours): Temp Pulse Resp BP Pulse Ox 98 F 98 H 20 115/59 L 100 07/24/17 10:00 07/24/17 12:59 07/24/17 12:59 07/24/17 12:59 07/24/17 12:59 Intake and Output: 07/24/17 07/24/17 06:59 18:59 Intake Total 300 340 Output Total 355 160 Balance -55 180 - Medications Medications: Current Medications Albuterol Sulfate (Albuterol 0.042% Inhal Ruby (1.25mg/3ml) Ud) 1.25 mg INH RQ6 PRN PRN Reason: Wheezing Ascorbic Acid (Vitamin C 250 Mg Tab) 250 mg PO DAILY [facility] Last Admin: 07/24/17 09:29 Dose: 250 mg Benzocaine/Menthol (Cepacol Sore Throat) 1 love MT Q2 PRN PRN Reason: Sore Throat Last Admin: 07/17/17 20:25 Dose: 1 love Calcium Acetate (Phoslo) 1,334 mg PO TID [facility] Last Admin: 07/24/17 09:29 Dose: 1,334 mg Clopidogrel Bisulfate (Plavix) 75 mg PO DAILY [facility] Last Admin: 07/24/17 09:32 Dose: 75 mg Cyproheptadine HCl (Periactin) 4 mg PO BID [facility] Last Admin: 07/24/17 09:32 Dose: 4 mg Donepezil HCl (Aricept) 10 mg PO HS [facility] Last Admin: 07/23/17 21:14 Dose: 10 mg Epoetin Romel (Procrit) 10,000 unit IV MWF [facility] Ferrous Sulfate (Feosol) 325 mg PO Q12H [facility] Last Admin: 07/24/17 06:10 Dose: 325 mg Heparin Sodium (Porcine) (Heparin) 5,000 units SC Q12 [facility] Last Admin: 07/24/17 09:29 Dose: 5,000 units Home Med (Fesoterodine Fumarate [Toviaz]) 8 mg PO DAILY [facility] Hydromorphone HCl (Dilaudid) 0.5 mg IVP Q4 PRN PRN Reason: Pain, severe (8-10) Last Admin: 07/24/17 12:47 Dose: 0.5 mg Tigecycline 50 mg/ Dextrose 100 mls @ 100 mls/hr IVPB Q12H [facility] Last Admin: 07/24/17 01:30 Dose: 100 mls/hr Metronidazole 250 mg/ (Miscellaneous) 50 mls @ 100 mls/hr IVPB Q8 [facility] Last Admin: 07/24/17 05:10 Dose: 100 mls/hr Insulin Human Regular (Novolin R) 0 unit SC ACHS [facility] PRN Reason: Protocol Last Admin: 07/24/17 11:30 Dose: Not Given Latanoprost (Xalatan Opht) 0 ml OU HS [facility] Last Admin: 07/23/17 22:19 Dose: 2.5 ml Levothyroxine Sodium (Synthroid) 50 mcg PO DAILY@0630 [facility] Last Admin: 07/24/17 06:10 Dose: 50 mcg Metoprolol Succinate (Toprol Xl) 100 mg PO DAILY [facility] Last Admin: 07/14/17 13:41 Dose: 100 mg Ondansetron HCl (Zofran Inj) 4 mg IVP Q6 PRN PRN Reason: Nausea/Vomiting Pantoprazole Sodium (Protonix Ec Tab) 40 mg PO DAILY [facility] Last Admin: 07/24/17 09:30 Dose: 40 mg Rosuvastatin Calcium (Crestor) 10 mg PO HS [facility] Last Admin: 07/23/17 21:15 Dose: 10 mg Saccharomyces Boulardii (Florastor) 250 mg PO BID [facility] Last Admin: 07/24/17 09:29 Dose: 250 mg - Labs Labs: 07/24/17 06:17 07/24/17 06:17 PT 14.3 SECONDS (9.7-12.2) H 07/16/17 04:00 INR 1.3 07/16/17 04:00 APTT 29 SECONDS (21-34) 07/13/17 20:04 - Constitutional Appears: No Acute Distress, Chronically Ill - Head Exam Head Exam: ATRAUMATIC, NORMAL INSPECTION - Eye Exam Eye Exam: EOMI, Normal appearance - Respiratory Exam Respiratory Exam: Clear to Ausculation Bilateral, NORMAL BREATHING PATTERN - GI/Abdominal Exam GI & Abdominal Exam: Soft, Tenderness - Extremities Exam Extremities Exam: Normal Inspection. absent: Tenderness - Neurological Exam Neurological Exam: Awake, CN II-XII Intact - Skin Skin Exam: Dry, Warm Assessment and Plan (1) Hx of stroke without residual deficits Status: Acute (2) History of hypertension Status: Chronic (3) JAY JAY (acute kidney injury) Status: Acute (4) Type 2 diabetes mellitus with diabetic nephropathy Status: Acute (5) Chronic kidney disease, stage III (moderate) Status: Acute (6) Proteinuria Status: Acute (7) Hyponatremia with excess extracellular fluid volume Status: Acute - Assessment and Plan (Free Text) Plan: Add EPO Dialysis now and MWF IV ABs for bacteremia
--- NOTE | 2017-07-24 14:48 | CP.CCUPN ---
<Effie Vogt - Last Filed: 07/24/17 14:39> CCU Subjective - Physician Review Subjective (Free Text): Patient seen and examined at bedside. Patient continues to report abdominal pain but denies nausea/vomiting, constipation/diarrhea. Full ROS unobtainable due to patient's dementia. CCU Objective - Vital Signs / Intake & Output Vital Signs (Last 4 hours): Vital Signs Temp Pulse Pulse Resp BP BP Pulse Ox 07/24/17 13:24 100 H 19 139/64 100 07/24/17 13:23 103 H 22 140/70 100 07/24/17 13:16 101 H 22 147/69 100 07/24/17 13:15 99 H 24 105/55 L 100 07/24/17 13:03 97 H 25 H 105/61 99 07/24/17 13:00 100 H 98 H 21 115/59 L 100 07/24/17 12:43 101 H 27 H 115/59 L 100 07/24/17 12:30 98 H 20 117/48 L 100 07/24/17 12:25 97 H 27 H 117/48 L 100 07/24/17 12:23 96 H 25 H 114/63 100 07/24/17 12:04 100 H 19 118/53 L 100 07/24/17 12:00 98 F 99 H 98 H 24 124/61 100 07/24/17 11:44 99 H 20 124/61 99 07/24/17 11:30 100 H 23 121/56 L 100 07/24/17 11:24 100 H 27 H 121/56 L 100 07/24/17 11:03 99 H 25 H 127/65 97 07/24/17 11:00 100 H 20 130/49 L 100 07/24/17 10:44 101 H 22 130/49 L 98 Intake and Output (Last 8hrs): Intake & Output 07/23/17 07/24/17 07/24/17 22:59 06:59 14:59 Intake Total 340 200 340 Output Total 210 255 160 Balance 130 -55 180 Intake: Intake, IV Amount 100 200 Right Distal Port 100 200 Internal Jugular Oral 240 340 Output: Urine 210 255 160 Urethral (Pacheco) 210 255 160 Other: # Bowel Movements 1 - Physical Exam Head: Positive for: Atraumatic, Normocephalic Pupils: Positive for: PERRL Extroacular Muscles: Positive for: EOMI Mouth: Positive for: Dry Respiratory/Chest: Positive for: Rhonchi. Negative for: Respiratory Distress, Accessory Muscle Use Cardiovascular: Positive for: Normal S1, S2 Abdomen: Positive for: Tenderness, Distention Lower Extremity: Negative for: Edema Neurological: Positive for: GCS=15 Skin: Positive for: Warm, Normal Color Psychiatric: Positive for: Alert. Negative for: Oriented x 3 - Medications Active Medications: Active Medications Generic Name Dose Route Start Last Admin Trade Name Freq PRN Reason Stop Dose Admin Albuterol Sulfate 1.25 mg 07/23/17 20:00 Albuterol 0.042% Inhal Ruby (1.25mg/3ml) Ud INH RQ6 PRN Wheezing Ascorbic Acid 250 mg 07/14/17 10:00 07/24/17 09:29 Vitamin C 250 Mg Tab PO 250 mg DAILY DARINEL Administration Benzocaine/Menthol 1 love 07/14/17 04:24 07/17/17 20:25 Cepacol Sore Throat MT 1 love Q2 PRN Administration Sore Throat Calcium Acetate 1,334 mg 07/20/17 11:16 07/24/17 13:39 Phoslo PO 1,334 mg TID DARINEL Administration Clopidogrel Bisulfate 75 mg 07/14/17 10:00 07/24/17 09:32 Plavix PO 75 mg DAILY DARINEL Administration Cyproheptadine HCl 4 mg 07/14/17 10:00 07/24/17 09:32 Periactin PO 4 mg BID DARINEL Administration Donepezil HCl 10 mg 07/13/17 22:00 07/23/17 21:14 Aricept PO 10 mg HS DARINEL Administration Epoetin Romel 10,000 unit 07/27/17 09:00 Procrit IV MWF [facility] Ferrous Sulfate 325 mg 07/13/17 18:45 07/24/17 06:10 Feosol PO 325 mg Q12H DARINEL Administration Heparin Sodium (Porcine) 5,000 units 07/21/17 22:00 07/24/17 09:29 Heparin SC 5,000 units Q12 DARINEL Administration Home Med 8 mg 07/14/17 10:00 Fesoterodine Fumarate [Toviaz] PO DAILY DARINEL Hydromorphone HCl 0.5 mg 07/23/17 09:56 07/24/17 12:47 Dilaudid IVP 0.5 mg Q4 PRN Administration Pain, severe (8-10) Tigecycline 50 mg/ Dextrose 100 mls @ 100 mls/hr 07/18/17 01:00 07/24/17 13: 39 IVPB 100 mls/hr Q12H DARINEL Administration Metronidazole 250 mg/ 50 mls @ 100 mls/hr 07/18/17 22:15 07/24/17 05:10 Miscellaneous IVPB 100 mls/hr Q8 DARINEL Administration Insulin Human Regular 0 unit 07/23/17 16:30 07/24/17 13:38 Novolin R SC 2 unit ACHS DARINEL Administration Protocol Latanoprost 0 ml 07/13/17 22:00 07/23/17 22:19 Xalatan Opht OU 2.5 ml HS DARINEL Administration Levothyroxine Sodium 50 mcg 07/14/17 06:30 07/24/17 06:10 Synthroid PO 50 mcg DAILY@0630 DARINEL Administration Metoprolol Succinate 100 mg 07/13/17 21:59 07/14/17 13:41 Toprol Xl PO 100 mg DAILY DARINEL Administration Ondansetron HCl 4 mg 07/14/17 00:38 Zofran Inj IVP Q6 PRN Nausea/Vomiting Pantoprazole Sodium 40 mg 07/24/17 10:00 07/24/17 09:30 Protonix Ec Tab PO 40 mg DAILY DARINEL Administration Rosuvastatin Calcium 10 mg 07/13/17 22:00 07/23/17 21:15 Crestor PO 10 mg HS DARINEL Administration Saccharomyces Boulardii 250 mg 07/14/17 10:00 07/24/17 09:29 Florastor PO 250 mg BID DARINEL Administration - Patient Studies Lab Studies: Microbiology Studies 07/20/17 03:55 Blood Culture - Preliminary Blood-Venous NO GROWTH AFTER 4 DAYS 07/20/17 03:55 Blood Culture - Preliminary Blood-Venous NO GROWTH AFTER 4 DAYS Lab Studies 07/24/17 07/24/17 07/24/17 Range/Units 11:53 07:41 06:17 WBC (4.8-10.8) K/uL RBC (4.40-5.90) Mil/uL Hgb (12.0-18.0) g/dL Hct (35.0-51.0) % MCV (80.0-94.0) fL MCH (27.0-31.0) pg MCHC (33.0-37.0) g/dL RDW (11.5-14.5) % Plt Count (130-400) K/uL MPV (7.2-11.7) fL Neut % (Auto) (50.0-75.0) % Lymph % (Auto) (20.0-40.0) % [place] % (Auto) (0.0-10.0) % Eos % (Auto) (0.0-4.0) % Baso % (Auto) (0.0-2.0) % Neut # (1.8-7.0) K/uL Lymph # (1.0-4.3) K/uL [place] # (0.0-0.8) K/uL Eos # (0.0-0.7) K/uL Baso # (0.0-0.2) K/uL Sodium 132 (132-148) mmol/L Potassium 3.7 (3.6-5.2) mmol/L Chloride 96 L (98-107) mmol/L Carbon Dioxide 25 (22-30) mmol/L Anion Gap 15 (10-20) BUN 69 H (9-20) mg/dL Creatinine 3.7 H (0.8-1.5) mg/dL Est GFR ( Amer) 19 Est GFR (Non-Af Amer) 16 POC Glucose (mg/dL) 193 H 163 H (65-110) mg/dL Random Glucose 131 H (75-110) mg/dL Calcium 7.8 L (8.6-10.4) mg/dl Phosphorus 5.9 H (2.5-4.5) mg/dL Magnesium 2.2 (1.6-2.3) mg/dL Total Bilirubin 0.6 (0.2-1.3) mg/dL AST 62 H (17-59) U/L ALT 39 (21-72) U/L Alkaline Phosphatase 108 (38-126) U/L Total Protein 5.6 L (6.3-8.3) g/dL Albumin 2.5 L (3.5-5.0) g/dL Globulin 3.1 (2.2-3.9) gm/dL Albumin/Globulin Ratio 0.8 L (1.0-2.1) 11/10/17 11/09/17 11/09/17 Range/Units 06:17 21:24 16:20 WBC 15.3 H (4.8-10.8) K/uL RBC 3.06 L (4.40-5.90) Mil/uL Hgb 8.4 L (12.0-18.0) g/dL Hct 25.3 L (35.0-51.0) % MCV 82.6 (80.0-94.0) fL MCH 27.3 (27.0-31.0) pg MCHC 33.1 (33.0-37.0) g/dL RDW 15.6 H (11.5-14.5) % Plt Count 179 (130-400) K/uL MPV 9.2 (7.2-11.7) fL Neut % (Auto) 75.6 H (50.0-75.0) % Lymph % (Auto) 10.9 L (20.0-40.0) % [place] % (Auto) 10.6 H (0.0-10.0) % Eos % (Auto) 2.4 (0.0-4.0) % Baso % (Auto) 0.5 (0.0-2.0) % Neut # 11.5 H (1.8-7.0) K/uL Lymph # 1.7 (1.0-4.3) K/uL [place] # 1.6 H (0.0-0.8) K/uL Eos # 0.4 (0.0-0.7) K/uL Baso # 0.1 (0.0-0.2) K/uL Sodium (132-148) mmol/L Potassium (3.6-5.2) mmol/L Chloride (98-107) mmol/L Carbon Dioxide (22-30) mmol/L Anion Gap (10-20) BUN (9-20) mg/dL Creatinine (0.8-1.5) mg/dL Est GFR ( Amer) Est GFR (Non-Af Amer) POC Glucose (mg/dL) 136 H 234 H (65-110) mg/dL Random Glucose (75-110) mg/dL Calcium (8.6-10.4) mg/dl Phosphorus (2.5-4.5) mg/dL Magnesium (1.6-2.3) mg/dL Total Bilirubin (0.2-1.3) mg/dL AST (17-59) U/L ALT (21-72) U/L Alkaline Phosphatase (38-126) U/L Total Protein (6.3-8.3) g/dL Albumin (3.5-5.0) g/dL Globulin (2.2-3.9) gm/dL Albumin/Globulin Ratio (1.0-2.1) 07/23/17 Range/Units 12:06 WBC (4.8-10.8) K/uL RBC (4.40-5.90) Mil/uL Hgb (12.0-18.0) g/dL Hct (35.0-51.0) % MCV (80.0-94.0) fL MCH (27.0-31.0) pg MCHC (33.0-37.0) g/dL RDW (11.5-14.5) % Plt Count (130-400) K/uL MPV (7.2-11.7) fL Neut % (Auto) (50.0-75.0) % Lymph % (Auto) (20.0-40.0) % [place] % (Auto) (0.0-10.0) % Eos % (Auto) (0.0-4.0) % Baso % (Auto) (0.0-2.0) % Neut # (1.8-7.0) K/uL Lymph # (1.0-4.3) K/uL [place] # (0.0-0.8) K/uL Eos # (0.0-0.7) K/uL Baso # (0.0-0.2) K/uL Sodium (132-148) mmol/L Potassium (3.6-5.2) mmol/L Chloride (98-107) mmol/L Carbon Dioxide (22-30) mmol/L Anion Gap (10-20) BUN (9-20) mg/dL Creatinine (0.8-1.5) mg/dL Est GFR ( Amer) Est GFR (Non-Af Amer) POC Glucose (mg/dL) 272 H (65-110) mg/dL Random Glucose (75-110) mg/dL Calcium (8.6-10.4) mg/dl Phosphorus (2.5-4.5) mg/dL Magnesium (1.6-2.3) mg/dL Total Bilirubin (0.2-1.3) mg/dL AST (17-59) U/L ALT (21-72) U/L Alkaline Phosphatase (38-126) U/L Total Protein (6.3-8.3) g/dL Albumin (3.5-5.0) g/dL Globulin (2.2-3.9) gm/dL Albumin/Globulin Ratio (1.0-2.1) Laboratory Results - last 24 hr 07/23/17 07/23/17 07/23/17 12:06 16:20 21:24 WBC RBC Hgb Hct MCV MCH MCHC RDW Plt Count MPV Neut % (Auto) Lymph % (Auto) [place] % (Auto) Eos % (Auto) Baso % (Auto) Neut # Lymph # [place] # Eos # Baso # Sodium Potassium Chloride Carbon Dioxide Anion Gap BUN Creatinine Est GFR ( Amer) Est GFR (Non-Af Amer) POC Glucose (mg/dL) 272 H 234 H 136 H Random Glucose Calcium Phosphorus Magnesium Total Bilirubin AST ALT Alkaline Phosphatase Total Protein Albumin Globulin Albumin/Globulin Ratio 07/24/17 07/24/17 07/24/17 06:17 06:17 07:41 WBC 15.3 H RBC 3.06 L Hgb 8.4 L Hct 25.3 L MCV 82.6 MCH 27.3 MCHC 33.1 RDW 15.6 H Plt Count 179 MPV 9.2 Neut % (Auto) 75.6 H Lymph % (Auto) 10.9 L [place] % (Auto) 10.6 H Eos % (Auto) 2.4 Baso % (Auto) 0.5 Neut # 11.5 H Lymph # 1.7 [place] # 1.6 H Eos # 0.4 Baso # 0.1 Sodium 132 Potassium 3.7 Chloride 96 L Carbon Dioxide 25 Anion Gap 15 BUN 69 H Creatinine 3.7 H Est GFR ( Amer) 19 Est GFR (Non-Af Amer) 16 POC Glucose (mg/dL) 163 H Random Glucose 131 H Calcium 7.8 L Phosphorus 5.9 H Magnesium 2.2 Total Bilirubin 0.6 AST 62 H ALT 39 Alkaline Phosphatase 108 Total Protein 5.6 L Albumin 2.5 L Globulin 3.1 Albumin/Globulin Ratio 0.8 L 07/24/17 11:53 WBC RBC Hgb Hct MCV MCH MCHC RDW Plt Count MPV Neut % (Auto) Lymph % (Auto) [place] % (Auto) Eos % (Auto) Baso % (Auto) Neut # Lymph # [place] # Eos # Baso # Sodium Potassium Chloride Carbon Dioxide Anion Gap BUN Creatinine Est GFR ( Amer) Est GFR (Non-Af Amer) POC Glucose (mg/dL) 193 H Random Glucose Calcium Phosphorus Magnesium Total Bilirubin AST ALT Alkaline Phosphatase Total Protein Albumin Globulin Albumin/Globulin Ratio Fingerstick Blood Sugar Results: 193 Review of Systems - Review of Systems Systems not reviewed;Unavailable: Dementia - Cardiovascular Cardiovascular: absent: Chest Pain, Dyspnea - Gastrointestinal Gastrointestinal: Abdominal Pain. 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 Patient POD #4 s/p left internal jugular vein permacath insertion, intubated s/p cardiac arrest. Plan: Neuro: hx of Alzheimer's Dementia - Aricept 10 mg PO HS - CT Head (07/13): no acute intracranial hermorrhage, or suspicious mass effect - propofol stopped Cardio: HTN, hx of CVA - Dr. Chau consulted, help appreciated - Home blood pressure medications held because low BP: amlodipine 1 mg po daily , metoprolol succinate 100 mg po daily, losartan 100 mg po daily - Plavix 75 mg po daily (restarted 07/22) - crestor 10 mg po HS - metoprolol held due to hypotension - levophed drip stopped on 07/22/17 - TSH and free T4 WNL - Echo (07/13): LVEF 60%, moderate LVH. - Troponin I (07/20 - 07/21): .866, .8289, .4900 - as per Dr. Chau probable Troponin elevation due to coronary hypoperfusion from shock, likely septic etiology - Code blue (07/20) called at 15:37, two epis, norepi drip started, 1 bicarb, and 1 calcium gluconate given before ROSC at 15:39 Pulm: bilateral pneumonia - CT Abdomen/Pelvis (07/13): bibasilar lingular and right moddle lobe infiltrates consistent with atelectasis vs. pneumonia - CXR 07/21/17: opacification of the left mid to lower lung zone and right lung base. Bilateral hilar prominence, small left pleural effusion, biapical pleural thickening, cardiomegaly. - HCAP pneumonia suspected given recent hospitalization and antibiotic use for buttock abscess - Infectious disease consulted (Dr. Langford), help appreciated - urine cultures: no growth - negative MRSA - blood culture: gram positive cocci, enterococcus faecium - flagyl 250mg q8h - repeat blood culture (07/20): negative --continue tigecycline 50mg q12h GI: abdominal pain due to small bowel obstruction vs. ileus - Abdominal Xray (07/23): distended small large-bowel loops filled with air suggestive of bowel ileus or partial/intermittent distal small bowel obstruction. - Dr. Boyce consulted (surgery), help appreciated - Dr. Damian consulted (GI), help appreciated - liquid diet per GI Nephro: CKD III - Dr. Oconnell consulted, help appreciated - Hemodialysis MWF PPX: - DVT: SCD's, heparin 5000 u sc q12h - GI: Protonix 40 mg IV daily - florastor <Sommer Malin - Last Filed: 07/24/17 19:04> CCU Subjective - Physician Review Subjective (Free Text): Patient was seen and examined at the bedside, Medical records reviewed, and management issues were discussed and formulated with the house staff.I have reviewed all the relevant clinical, laboratory, hemodynamic, radiographic data and medications I concur with resident's assessment and plan of care as transcribed in Dr. Vogt note. Patient is hemodynamically stable. d/c central line -HD today 07/24/17 19:03 CCU Objective - Vital Signs / Intake & Output Vital Signs (Last 4 hours): Vital Signs Temp Pulse Resp BP Pulse Ox 07/24/17 17:55 102 H 16 142/58 L 98 07/24/17 16:24 127/64 07/24/17 16:00 97.3 F L 99 H 18 100 Intake and Output (Last 8hrs): Intake & Output 07/24/17 07/24/17 07/24/17 06:59 14:59 22:59 Intake Total 200 440 290 Output Total 255 160 Balance -55 280 290 Weight 140 lb 14.006 oz Intake: Intake, IV Amount 200 100 50 Right Distal Port 200 Internal Jugular Right Medial Port 100 50 Internal Jugular Oral 340 240 Output: Urine 255 160 Urethral (Pacheco) 255 160 Other: # Bowel Movements 1 - Medications Active Medications: Active Medications Generic Name Dose Route Start Last Admin Trade Name Freq PRN Reason Stop Dose Admin Albuterol Sulfate 1.25 mg 07/23/17 20:00 Albuterol 0.042% Inhal Ruby (1.25mg/3ml) Ud INH RQ6 PRN Wheezing Ascorbic Acid 250 mg 07/14/17 10:00 07/24/17 09:29 Vitamin C 250 Mg Tab PO 250 mg DAILY DARINEL Administration Benzocaine/Menthol 1 love 07/14/17 04:24 07/17/17 20:25 Cepacol Sore Throat MT 1 love Q2 PRN Administration Sore Throat Calcium Acetate 1,334 mg 07/20/17 11:16 07/24/17 17:23 Phoslo PO 1,334 mg TID DARINEL Administration Clopidogrel Bisulfate 75 mg 07/14/17 10:00 07/24/17 09:32 Plavix PO 75 mg DAILY DARINEL Administration Cyproheptadine HCl 4 mg 07/14/17 10:00 07/24/17 17:27 Periactin PO 4 mg BID DARINEL Administration Donepezil HCl 10 mg 07/13/17 22:00 07/23/17 21:14 Aricept PO 10 mg HS DARINEL Administration Epoetin Romel 10,000 unit 07/27/17 09:00 Procrit IV MWF DARINEL Ferrous Sulfate 325 mg 07/13/17 18:45 07/24/17 18:46 Feosol PO 325 mg Q12H DARINEL Administration Heparin Sodium (Porcine) 5,000 units 07/21/17 22:00 07/24/17 09:29 Heparin SC 5,000 units Q12 DARINEL Administration Home Med 8 mg 07/14/17 10:00 Fesoterodine Fumarate [Toviaz] PO DAILY DARINEL Hydromorphone HCl 0.5 mg 07/23/17 09:56 07/24/17 17:24 Dilaudid IVP 0.5 mg Q4 PRN Administration Pain, severe (8-10) Tigecycline 50 mg/ Dextrose 100 mls @ 100 mls/hr 07/18/17 01:00 07/24/17 13: 39 IVPB 100 mls/hr Q12H DARINEL Administration Metronidazole 250 mg/ 50 mls @ 100 mls/hr 07/18/17 22:15 07/24/17 15:36 Miscellaneous IVPB 100 mls/hr Q8 DARINEL Administration Insulin Human Regular 0 unit 07/23/17 16:30 07/24/17 16:30 Novolin R SC Not Given ACHS [facility] Protocol Latanoprost 0 ml 07/13/17 22:00 07/23/17 22:19 Xalatan Opht OU 2.5 ml HS DARINEL Administration Levothyroxine Sodium 50 mcg 07/14/17 06:30 07/24/17 06:10 Synthroid PO 50 mcg DAILY@0630 DARINEL Administration Metoprolol Succinate 100 mg 07/13/17 21:59 07/14/17 13:41 Toprol Xl PO 100 mg DAILY DARINEL Administration Ondansetron HCl 4 mg 07/14/17 00:38 Zofran Inj IVP Q6 PRN Nausea/Vomiting Pantoprazole Sodium 40 mg 07/24/17 10:00 07/24/17 09:30 Protonix Ec Tab PO 40 mg DAILY DARINEL Administration Rosuvastatin Calcium 10 mg 07/13/17 22:00 07/23/17 21:15 Crestor PO 10 mg HS DARINEL Administration Saccharomyces Boulardii 250 mg 07/14/17 10:00 07/24/17 17:23 Florastor PO 250 mg BID DARINEL Administration - Patient Studies Lab Studies: Microbiology Studies 07/20/17 03:55 Blood Culture - Preliminary Blood-Venous NO GROWTH AFTER 4 DAYS 07/20/17 03:55 Blood Culture - Preliminary Blood-Venous NO GROWTH AFTER 4 DAYS Lab Studies 07/24/17 07/24/17 07/24/17 Range/Units 16:31 11:53 07:41 WBC (4.8-10.8) K/uL RBC (4.40-5.90) Mil/uL Hgb (12.0-18.0) g/dL Hct (35.0-51.0) % MCV (80.0-94.0) fL MCH (27.0-31.0) pg MCHC (33.0-37.0) g/dL RDW (11.5-14.5) % Plt Count (130-400) K/uL MPV (7.2-11.7) fL Neut % (Auto) (50.0-75.0) % Lymph % (Auto) (20.0-40.0) % [place] % (Auto) (0.0-10.0) % Eos % (Auto) (0.0-4.0) % Baso % (Auto) (0.0-2.0) % Neut # (1.8-7.0) K/uL Lymph # (1.0-4.3) K/uL [place] # (0.0-0.8) K/uL Eos # (0.0-0.7) K/uL Baso # (0.0-0.2) K/uL Sodium (132-148) mmol/L Potassium (3.6-5.2) mmol/L Chloride (98-107) mmol/L Carbon Dioxide (22-30) mmol/L Anion Gap (10-20) BUN (9-20) mg/dL Creatinine (0.8-1.5) mg/dL Est GFR ( Amer) Est GFR (Non-Af Amer) POC Glucose (mg/dL) 142 H 193 H 163 H (65-110) mg/dL Random Glucose (75-110) mg/dL Calcium (8.6-10.4) mg/dl Phosphorus (2.5-4.5) mg/dL Magnesium (1.6-2.3) mg/dL Total Bilirubin (0.2-1.3) mg/dL AST (17-59) U/L ALT (21-72) U/L Alkaline Phosphatase (38-126) U/L Total Protein (6.3-8.3) g/dL Albumin (3.5-5.0) g/dL Globulin (2.2-3.9) gm/dL Albumin/Globulin Ratio (1.0-2.1) 07/24/17 07/24/17 07/23/17 Range/Units 06:17 06:17 21:24 WBC 15.3 H (4.8-10.8) K/uL RBC 3.06 L (4.40-5.90) Mil/uL Hgb 8.4 L (12.0-18.0) g/dL Hct 25.3 L (35.0-51.0) % MCV 82.6 (80.0-94.0) fL MCH 27.3 (27.0-31.0) pg MCHC 33.1 (33.0-37.0) g/dL RDW 15.6 H (11.5-14.5) % Plt Count 179 (130-400) K/uL MPV 9.2 (7.2-11.7) fL Neut % (Auto) 75.6 H (50.0-75.0) % Lymph % (Auto) 10.9 L (20.0-40.0) % [place] % (Auto) 10.6 H (0.0-10.0) % Eos % (Auto) 2.4 (0.0-4.0) % Baso % (Auto) 0.5 (0.0-2.0) % Neut # 11.5 H (1.8-7.0) K/uL Lymph # 1.7 (1.0-4.3) K/uL [place] # 1.6 H (0.0-0.8) K/uL Eos # 0.4 (0.0-0.7) K/uL Baso # 0.1 (0.0-0.2) K/uL Sodium 132 (132-148) mmol/L Potassium 3.7 (3.6-5.2) mmol/L Chloride 96 L (98-107) mmol/L Carbon Dioxide 25 (22-30) mmol/L Anion Gap 15 (10-20) BUN 69 H (9-20) mg/dL Creatinine 3.7 H (0.8-1.5) mg/dL Est GFR ( Amer) 19 Est GFR (Non-Af Amer) 16 POC Glucose (mg/dL) 136 H (65-110) mg/dL Random Glucose 131 H (75-110) mg/dL Calcium 7.8 L (8.6-10.4) mg/dl Phosphorus 5.9 H (2.5-4.5) mg/dL Magnesium 2.2 (1.6-2.3) mg/dL Total Bilirubin 0.6 (0.2-1.3) mg/dL AST 62 H (17-59) U/L ALT 39 (21-72) U/L Alkaline Phosphatase 108 (38-126) U/L Total Protein 5.6 L (6.3-8.3) g/dL Albumin 2.5 L (3.5-5.0) g/dL Globulin 3.1 (2.2-3.9) gm/dL Albumin/Globulin Ratio 0.8 L (1.0-2.1) Laboratory Results - last 24 hr 07/23/17 07/24/17 07/24/17 21:24 06:17 06:17 WBC 15.3 H RBC 3.06 L Hgb 8.4 L Hct 25.3 L MCV 82.6 MCH 27.3 MCHC 33.1 RDW 15.6 H Plt Count 179 MPV 9.2 Neut % (Auto) 75.6 H Lymph % (Auto) 10.9 L [place] % (Auto) 10.6 H Eos % (Auto) 2.4 Baso % (Auto) 0.5 Neut # 11.5 H Lymph # 1.7 [place] # 1.6 H Eos # 0.4 Baso # 0.1 Sodium 132 Potassium 3.7 Chloride 96 L Carbon Dioxide 25 Anion Gap 15 BUN 69 H Creatinine 3.7 H Est GFR ( Amer) 19 Est GFR (Non-Af Amer) 16 POC Glucose (mg/dL) 136 H Random Glucose 131 H Calcium 7.8 L Phosphorus 5.9 H Magnesium 2.2 Total Bilirubin 0.6 AST 62 H ALT 39 Alkaline Phosphatase 108 Total Protein 5.6 L Albumin 2.5 L Globulin 3.1 Albumin/Globulin Ratio 0.8 L 07/24/17 07/24/17 07/24/17 07:41 11:53 16:31 WBC RBC Hgb Hct MCV MCH MCHC RDW Plt Count MPV Neut % (Auto) Lymph % (Auto) [place] % (Auto) Eos % (Auto) Baso % (Auto) Neut # Lymph # [place] # Eos # Baso # Sodium Potassium Chloride Carbon Dioxide Anion Gap BUN Creatinine Est GFR ( Amer) Est GFR (Non-Af Amer) POC Glucose (mg/dL) 163 H 193 H 142 H Random Glucose Calcium Phosphorus Magnesium Total Bilirubin AST ALT Alkaline Phosphatase Total Protein Albumin Globulin Albumin/Globulin Ratio Critical Care Progress Note - Nutrition Nutrition: Nutrition Category Date Time Status Liquid Diet [DIET] Diets 07/23/17 Dinner Active
--- NOTE | 2017-07-24 18:27 | CP.PCM.PN ---
Subjective - Date & Time of Evaluation Date of Evaluation: 07/24/17 Time of Evaluation: 08:00 - Subjective Subjective: events noted repeat blood c/s neg but wbc trending up consider repeat imaging Objective - Vital Signs/Intake and Output Vital Signs (last 24 hours): Temp Pulse Resp BP Pulse Ox 97.3 F L 102 H 16 142/58 L 98 07/24/17 16:00 07/24/17 17:55 07/24/17 17:55 07/24/17 17:55 07/24/17 17:55 Intake and Output: 07/24/17 07/24/17 06:59 18:59 Intake Total 300 730 Output Total 355 160 Balance -55 570 - Medications Medications: Current Medications Albuterol Sulfate (Albuterol 0.042% Inhal Ruby (1.25mg/3ml) Ud) 1.25 mg INH RQ6 PRN PRN Reason: Wheezing Ascorbic Acid (Vitamin C 250 Mg Tab) 250 mg PO DAILY [facility] Last Admin: 07/24/17 09:29 Dose: 250 mg Benzocaine/Menthol (Cepacol Sore Throat) 1 love MT Q2 PRN PRN Reason: Sore Throat Last Admin: 07/17/17 20:25 Dose: 1 love Calcium Acetate (Phoslo) 1,334 mg PO TID [facility] Last Admin: 07/24/17 17:23 Dose: 1,334 mg Clopidogrel Bisulfate (Plavix) 75 mg PO DAILY [facility] Last Admin: 07/24/17 09:32 Dose: 75 mg Cyproheptadine HCl (Periactin) 4 mg PO BID [facility] Last Admin: 07/24/17 17:27 Dose: 4 mg Donepezil HCl (Aricept) 10 mg PO HS [facility] Last Admin: 07/23/17 21:14 Dose: 10 mg Epoetin Romel (Procrit) 10,000 unit IV MWF [facility] Ferrous Sulfate (Feosol) 325 mg PO Q12H [facility] Last Admin: 07/24/17 06:10 Dose: 325 mg Heparin Sodium (Porcine) (Heparin) 5,000 units SC Q12 [facility] Last Admin: 07/24/17 09:29 Dose: 5,000 units Home Med (Fesoterodine Fumarate [Toviaz]) 8 mg PO DAILY [facility] Hydromorphone HCl (Dilaudid) 0.5 mg IVP Q4 PRN PRN Reason: Pain, severe (8-10) Last Admin: 07/24/17 17:24 Dose: 0.5 mg Tigecycline 50 mg/ Dextrose 100 mls @ 100 mls/hr IVPB Q12H [facility] Last Admin: 07/24/17 13:39 Dose: 100 mls/hr Metronidazole 250 mg/ (Miscellaneous) 50 mls @ 100 mls/hr IVPB Q8 [facility] Last Admin: 07/24/17 15:36 Dose: 100 mls/hr Insulin Human Regular (Novolin R) 0 unit SC ACHS [facility] PRN Reason: Protocol Last Admin: 07/24/17 16:30 Dose: Not Given Latanoprost (Xalatan Opht) 0 ml OU HS [facility] Last Admin: 07/23/17 22:19 Dose: 2.5 ml Levothyroxine Sodium (Synthroid) 50 mcg PO DAILY@0630 [facility] Last Admin: 07/24/17 06:10 Dose: 50 mcg Metoprolol Succinate (Toprol Xl) 100 mg PO DAILY [facility] Last Admin: 07/14/17 13:41 Dose: 100 mg Ondansetron HCl (Zofran Inj) 4 mg IVP Q6 PRN PRN Reason: Nausea/Vomiting Pantoprazole Sodium (Protonix Ec Tab) 40 mg PO DAILY [facility] Last Admin: 07/24/17 09:30 Dose: 40 mg Rosuvastatin Calcium (Crestor) 10 mg PO HS [facility] Last Admin: 07/23/17 21:15 Dose: 10 mg Saccharomyces Boulardii (Florastor) 250 mg PO BID [facility] Last Admin: 07/24/17 17:23 Dose: 250 mg - Labs Labs: 07/24/17 06:17 07/24/17 06:17 PT 14.3 SECONDS (9.7-12.2) H 07/16/17 04:00 INR 1.3 07/16/17 04:00 APTT 29 SECONDS (21-34) 07/13/17 20:04 - Constitutional Appears: Non-toxic, Chronically Ill - Head Exam Head Exam: NORMOCEPHALIC - Eye Exam Eye Exam: absent: Scleral icterus - ENT Exam ENT Exam: Mucous Membranes Dry - Neck Exam Neck Exam: absent: Lymphadenopathy - Respiratory Exam Respiratory Exam: Decreased Breath Sounds - Cardiovascular Exam Cardiovascular Exam: REGULAR RHYTHM - GI/Abdominal Exam GI & Abdominal Exam: Distended Assessment and Plan (1) JAY JAY (acute kidney injury) Status: Acute (2) CVA, old, cognitive deficits Status: Acute (3) Chronic kidney disease, stage III (moderate) Status: Acute (4) Headache Status: Acute (5) Hx of gastroesophageal reflux (GERD) Status: Acute
[2017-07-24] MEDS: Latanoprost 2.5 ml Opht Soln OU SCH (21:38)
[2017-07-25] MEDS: Tigecycline 50 MG in Dextrose 5% In Water 100 ML IVPB SCH ×2 (00:43→12:18)
[2017-07-25] MEDS: metroNIDAZOLE IV 500 mg/100 ml 250 MG in Premixed IV 1 EA IVPB SCH ×3 (06:03→21:13)
[2017-07-25] MEDS: Levothyroxine 50 MCG TAB PO SCH (06:03)
[2017-07-25] MEDS: HYDROmorphone 0.5 mg/0.5 ml ISec IVP PRN ×4 (06:03→22:38)
[2017-07-25 06:40] LABS: BASO # 0.1 K/uL (0.0-0.2); BASO % 0.7 % (0.0-2.0); EOS # 0.4 K/uL (0.0-0.7); EOS % 2.6 % (0.0-4.0); HEMATOCRIT 27.8 % (35.0-51.0); LYMPH # 2.3 K/uL (1.0-4.3); MEAN CORPUSCULAR HEMOGLOBIN 27.3 pg (27.0-31.0); MEAN CORPUSCULAR HGB CONC 32.8 g/dL (33.0-37.0); MEAN PLATELET VOLUME 9.5 fL (7.2-11.7); MONO % 12.1 % (0.0-10.0); RED CELL DISTRIBUTION WIDTH 15.4 % (11.5-14.5); WHITE BLOOD COUNT 16.3 K/uL (4.8-10.8)
[2017-07-25 06:51] LABS: POTASSIUM 3.7 mmol/L (3.6-5.2)
[2017-07-25 06:53] LABS: ALB/GLOB RATIO 1.1 (1.0-2.1); TOTAL PROTEIN 4.9 g/dL (6.3-8.3)
[2017-07-25 06:54] LABS: MAGNESIUM 1.9 mg/dL (1.6-2.3); PHOSPHOROUS 3.7 mg/dL (2.5-4.5)
--- NOTE | 2017-07-25 07:51 | CP.PCM.PN ---
<Marcelino Ordoñez - Last Filed: 07/25/17 09:29> Subjective - Date & Time of Evaluation Date of Evaluation: 07/25/17 Time of Evaluation: 07:20 - Subjective Subjective: General Surgery Note for Dr. Boyce Patient seen and examined at bedside. No acute event overnight. Patient still complaining of abdominal pain but reports no change. She also states he is experiencing nausea. He is tolerating diet and having BMs daily. Denies fever/ chills, chest pain, SOB, vomiting, diarrhea, constipation, incontinence. Objective - Vital Signs/Intake and Output Vital Signs (last 24 hours): Temp Pulse Resp BP Pulse Ox 98.5 F 92 H 18 120/59 L 100 07/25/17 04:00 07/25/17 07:00 07/25/17 07:00 07/25/17 05:54 07/25/17 07:00 Intake and Output: 07/25/17 07/25/17 06:59 18:59 Intake Total 450 Output Total 290 10 Balance 160 -10 - Medications Medications: Current Medications Albuterol Sulfate (Albuterol 0.042% Inhal Ruby (1.25mg/3ml) Ud) 1.25 mg INH RQ6 PRN PRN Reason: Wheezing Ascorbic Acid (Vitamin C 250 Mg Tab) 250 mg PO DAILY [facility] Last Admin: 07/24/17 09:29 Dose: 250 mg Benzocaine/Menthol (Cepacol Sore Throat) 1 love MT Q2 PRN PRN Reason: Sore Throat Last Admin: 07/17/17 20:25 Dose: 1 love Calcium Acetate (Phoslo) 1,334 mg PO TID [facility] Last Admin: 07/24/17 17:23 Dose: 1,334 mg Clopidogrel Bisulfate (Plavix) 75 mg PO DAILY [facility] Last Admin: 07/24/17 09:32 Dose: 75 mg Cyproheptadine HCl (Periactin) 4 mg PO BID [facility] Last Admin: 07/24/17 17:27 Dose: 4 mg Donepezil HCl (Aricept) 10 mg PO HS [facility] Last Admin: 07/24/17 21:38 Dose: 10 mg Epoetin Romel (Procrit) 10,000 unit IV MWF [facility] Ferrous Sulfate (Feosol) 325 mg PO Q12H [facility] Last Admin: 07/25/17 06:03 Dose: 325 mg Heparin Sodium (Porcine) (Heparin) 5,000 units SC Q12 [facility] Last Admin: 07/24/17 21:35 Dose: 5,000 units Home Med (Fesoterodine Fumarate [Toviaz]) 8 mg PO DAILY [facility] Hydromorphone HCl (Dilaudid) 0.5 mg IVP Q4 PRN PRN Reason: Pain, severe (8-10) Last Admin: 07/25/17 06:03 Dose: 0.5 mg Tigecycline 50 mg/ Dextrose 100 mls @ 100 mls/hr IVPB Q12H [facility] Last Admin: 07/25/17 00:43 Dose: 100 mls/hr Metronidazole 250 mg/ (Miscellaneous) 50 mls @ 100 mls/hr IVPB Q8 [facility] Last Admin: 07/25/17 06:03 Dose: 100 mls/hr Insulin Human Regular (Novolin R) 0 unit SC ACHS [facility] PRN Reason: Protocol Last Admin: 07/24/17 22:00 Dose: Not Given Latanoprost (Xalatan Opht) 0 ml OU HS [facility] Last Admin: 07/24/17 21:38 Dose: 2.5 ml Levothyroxine Sodium (Synthroid) 50 mcg PO DAILY@0630 [facility] Last Admin: 07/25/17 06:03 Dose: 50 mcg Metoprolol Succinate (Toprol Xl) 100 mg PO DAILY [facility] Last Admin: 07/14/17 13:41 Dose: 100 mg Ondansetron HCl (Zofran Inj) 4 mg IVP Q6 PRN PRN Reason: Nausea/Vomiting Pantoprazole Sodium (Protonix Ec Tab) 40 mg PO DAILY [facility] Last Admin: 07/24/17 09:30 Dose: 40 mg Rosuvastatin Calcium (Crestor) 10 mg PO HS [facility] Last Admin: 07/24/17 21:36 Dose: 10 mg Saccharomyces Boulardii (Florastor) 250 mg PO BID [facility] Last Admin: 07/24/17 17:23 Dose: 250 mg - Labs Labs: 07/25/17 06:23 07/25/17 06:25 PT 14.3 SECONDS (9.7-12.2) H 07/16/17 04:00 INR 1.3 07/16/17 04:00 APTT 29 SECONDS (21-34) 07/13/17 20:04 - Constitutional Appears: No Acute Distress - Head Exam Head Exam: ATRAUMATIC, NORMOCEPHALIC - Eye Exam Eye Exam: EOMI, Normal appearance Pupil Exam: PERRL - ENT Exam ENT Exam: Mucous Membranes Moist - Neck Exam Additional comments: Left IJ permacath - Respiratory Exam Respiratory Exam: NORMAL BREATHING PATTERN - Cardiovascular Exam Cardiovascular Exam: REGULAR RHYTHM - GI/Abdominal Exam GI & Abdominal Exam: Distended (mild), Soft, Tenderness (epigastric, mild). absent: Firm, Guarding, Rigid, Rebound - Back Exam Back Exam: absent: CVA tenderness (L), CVA tenderness (R) - Neurological Exam Neurological Exam: Alert, Awake - Psychiatric Exam Psychiatric exam: Normal Affect, Normal Mood - Skin Skin Exam: Dry, Intact, Normal Color, Warm Assessment and Plan - Assessment and Plan (Free Text) Plan: 82 M s/p Left IJ permacath POD #5 -Liquid diet, ADAT -Analgesics/Anti-emetics PRN -Management as per primary -Will discuss with Dr. Austen Ordoñez PGY1 <Manohar Boyce B - Last Filed: 07/25/17 20:02> Objective - Vital Signs/Intake and Output Vital Signs (last 24 hours): Temp Pulse Resp BP Pulse Ox 98.6 F 87 22 154/71 H 100 07/25/17 16:00 07/25/17 19:00 07/25/17 19:00 07/25/17 18:28 07/25/17 19:00 Intake and Output: 07/25/17 07/26/17 18:59 06:59 Intake Total 1030 Output Total 235 Balance 795 - Medications Medications: Current Medications Albuterol Sulfate (Albuterol 0.042% Inhal Ruby (1.25mg/3ml) Ud) 1.25 mg INH RQ6 PRN PRN Reason: Wheezing Ascorbic Acid (Vitamin C 250 Mg Tab) 250 mg PO DAILY [facility] Last Admin: 07/25/17 09:12 Dose: 250 mg Benzocaine/Menthol (Cepacol Sore Throat) 1 love MT Q2 PRN PRN Reason: Sore Throat Last Admin: 07/25/17 09:12 Dose: 1 love Calcium Acetate (Phoslo) 1,334 mg PO TID [facility] Last Admin: 07/25/17 18:12 Dose: 1,334 mg Clopidogrel Bisulfate (Plavix) 75 mg PO DAILY [facility] Last Admin: 07/25/17 09:12 Dose: 75 mg Cyproheptadine HCl (Periactin) 4 mg PO BID [facility] Last Admin: 07/25/17 18:12 Dose: 4 mg Donepezil HCl (Aricept) 10 mg PO HS [facility] Last Admin: 07/24/17 21:38 Dose: 10 mg Epoetin Romel (Procrit) 10,000 unit IV MWF [facility] Ferrous Sulfate (Feosol) 325 mg PO Q12H [facility] Last Admin: 07/25/17 18:12 Dose: 325 mg Heparin Sodium (Porcine) (Heparin) 5,000 units SC Q12 [facility] Last Admin: 07/25/17 09:11 Dose: 5,000 units Home Med (Fesoterodine Fumarate [Toviaz]) 8 mg PO DAILY [facility] Hydromorphone HCl (Dilaudid) 0.5 mg IVP Q4 PRN PRN Reason: Pain, severe (8-10) Last Admin: 07/25/17 15:10 Dose: 0.5 mg Tigecycline 50 mg/ Dextrose 100 mls @ 100 mls/hr IVPB Q12H [facility] Last Admin: 07/25/17 12:18 Dose: 100 mls/hr Metronidazole 250 mg/ (Miscellaneous) 50 mls @ 100 mls/hr IVPB Q8 [facility] Last Admin: 07/25/17 13:21 Dose: 100 mls/hr Insulin Human Regular (Novolin R) 0 unit SC ACHS [facility] PRN Reason: Protocol Last Admin: 07/25/17 18:12 Dose: 3 unit Latanoprost (Xalatan Opht) 0 ml OU HS [facility] Last Admin: 07/24/17 21:38 Dose: 2.5 ml Levothyroxine Sodium (Synthroid) 50 mcg PO DAILY@0630 [facility] Last Admin: 07/25/17 06:03 Dose: 50 mcg Metoprolol Succinate (Toprol Xl) 100 mg PO DAILY [facility] Last Admin: 07/14/17 13:41 Dose: 100 mg Ondansetron HCl (Zofran Inj) 4 mg IVP Q6 PRN PRN Reason: Nausea/Vomiting Pantoprazole Sodium (Protonix Ec Tab) 40 mg PO DAILY [facility] Last Admin: 07/25/17 09:12 Dose: 40 mg Rosuvastatin Calcium (Crestor) 10 mg PO HS [facility] Last Admin: 07/24/17 21:36 Dose: 10 mg Saccharomyces Boulardii (Florastor) 250 mg PO BID [facility] Last Admin: 07/25/17 18:12 Dose: 250 mg - Labs Labs: 07/25/17 06:23 07/25/17 06:25 PT 14.3 SECONDS (9.7-12.2) H 07/16/17 04:00 INR 1.3 07/16/17 04:00 APTT 29 SECONDS (21-34) 07/13/17 20:04 Attending/Attestation - Attestation I have personally seen and examined this patient.: Yes I have fully participated in the care of the patient.: Yes I have reviewed all pertinent clinical information, including history, physical exam and plan: Yes Notes (Text): Pt was seen and examined at bedside Agree with above note and assessment Pt is improving clinically OOB to Chair C/W IV antibiotics Plan d.w pt in detail.
[2017-07-25] MEDS: (Novolin R) Insulin Human Regular 100 units/ml vial SC SCH ×4 (08:10→21:39)
--- NOTE | 2017-07-25 08:38 | CARD ---
APPROVED REPORT EKG Measurement Heart [id number] <Conclusion> Sinus rhythm with fusion complexes Nonspecific ST abnormality Abnormal ECG
--- NOTE | 2017-07-25 08:38 | CARD ---
APPROVED REPORT EKG Measurement Heart [id number] <Conclusion> Supraventricular tachycardia Low voltage QRS ST elevation, consider inferior injury or acute infarct ACUTE [place] / STEMI Consider right ventricular involvement in acute inferior infarct Abnormal ECG
[2017-07-25] MEDS: Saccharomyces Boulardi 250 mg Cap PO SCH ×2 (09:11→18:12)
[2017-07-25] MEDS: Benzocaine/Menthol (Cepacol) Lozenge MT PRN (09:12)
[2017-07-25] MEDS: Pantoprazole 40 mg EC Tab PO SCH (09:12)
--- NOTE | 2017-07-25 11:16 | CP.PCM.PN ---
Subjective - Date & Time of Evaluation Date of Evaluation: 07/25/17 Time of Evaluation: 11:14 - Subjective Subjective: pain all over remains weak abdomen is distended noted 600 cc of urine over night cannnot obtain ROS due to uncooperative patient Objective - Vital Signs/Intake and Output Vital Signs (last 24 hours): Temp Pulse Resp BP Pulse Ox 97.8 F 86 16 134/68 100 07/25/17 08:00 07/25/17 08:00 07/25/17 08:00 07/25/17 07:24 07/25/17 08:00 Intake and Output: 07/25/17 07/25/17 06:59 18:59 Intake Total 450 240 Output Total 290 40 Balance 160 200 - Medications Medications: Current Medications Albuterol Sulfate (Albuterol 0.042% Inhal Ruby (1.25mg/3ml) Ud) 1.25 mg INH RQ6 PRN PRN Reason: Wheezing Ascorbic Acid (Vitamin C 250 Mg Tab) 250 mg PO DAILY [facility] Last Admin: 07/25/17 09:12 Dose: 250 mg Benzocaine/Menthol (Cepacol Sore Throat) 1 love MT Q2 PRN PRN Reason: Sore Throat Last Admin: 07/25/17 09:12 Dose: 1 love Calcium Acetate (Phoslo) 1,334 mg PO TID [facility] Last Admin: 07/25/17 09:12 Dose: 1,334 mg Clopidogrel Bisulfate (Plavix) 75 mg PO DAILY [facility] Last Admin: 07/25/17 09:12 Dose: 75 mg Cyproheptadine HCl (Periactin) 4 mg PO BID [facility] Last Admin: 07/25/17 09:12 Dose: 4 mg Donepezil HCl (Aricept) 10 mg PO HS [facility] Last Admin: 07/24/17 21:38 Dose: 10 mg Epoetin Romel (Procrit) 10,000 unit IV MWF [facility] Ferrous Sulfate (Feosol) 325 mg PO Q12H [facility] Last Admin: 07/25/17 06:03 Dose: 325 mg Heparin Sodium (Porcine) (Heparin) 5,000 units SC Q12 [facility] Last Admin: 07/25/17 09:11 Dose: 5,000 units Home Med (Fesoterodine Fumarate [Toviaz]) 8 mg PO DAILY [facility] Hydromorphone HCl (Dilaudid) 0.5 mg IVP Q4 PRN PRN Reason: Pain, severe (8-10) Last Admin: 07/25/17 10:35 Dose: 0.5 mg Tigecycline 50 mg/ Dextrose 100 mls @ 100 mls/hr IVPB Q12H [facility] Last Admin: 07/25/17 00:43 Dose: 100 mls/hr Metronidazole 250 mg/ (Miscellaneous) 50 mls @ 100 mls/hr IVPB Q8 [facility] Last Admin: 07/25/17 06:03 Dose: 100 mls/hr Insulin Human Regular (Novolin R) 0 unit SC ACHS [facility] PRN Reason: Protocol Last Admin: 07/25/17 08:10 Dose: 2 unit Latanoprost (Xalatan Opht) 0 ml OU HS [facility] Last Admin: 07/24/17 21:38 Dose: 2.5 ml Levothyroxine Sodium (Synthroid) 50 mcg PO DAILY@0630 [facility] Last Admin: 07/25/17 06:03 Dose: 50 mcg Metoprolol Succinate (Toprol Xl) 100 mg PO DAILY [facility] Last Admin: 07/14/17 13:41 Dose: 100 mg Ondansetron HCl (Zofran Inj) 4 mg IVP Q6 PRN PRN Reason: Nausea/Vomiting Pantoprazole Sodium (Protonix Ec Tab) 40 mg PO DAILY [facility] Last Admin: 07/25/17 09:12 Dose: 40 mg Rosuvastatin Calcium (Crestor) 10 mg PO HS [facility] Last Admin: 07/24/17 21:36 Dose: 10 mg Saccharomyces Boulardii (Florastor) 250 mg PO BID [facility] Last Admin: 07/25/17 09:11 Dose: 250 mg - Labs Labs: 07/25/17 06:23 07/25/17 06:25 PT 14.3 SECONDS (9.7-12.2) H 07/16/17 04:00 INR 1.3 07/16/17 04:00 APTT 29 SECONDS (21-34) 07/13/17 20:04 - Constitutional Appears: No Acute Distress, Chronically Ill - Respiratory Exam Respiratory Exam: Decreased Breath Sounds. absent: Accessory Muscle Use - Cardiovascular Exam Cardiovascular Exam: REGULAR RHYTHM. absent: Rubs - GI/Abdominal Exam GI & Abdominal Exam: Distended, Tenderness - Extremities Exam Extremities Exam: absent: Pedal Edema - Neurological Exam Neurological Exam: Alert Assessment and Plan - Assessment and Plan (Free Text) Assessment: dialysis dependent due to sepsis syndrome/respiratory failure improving, better u/o trend wbc monitor labs for renal recovery
--- NOTE | 2017-07-25 13:14 | CP.CCUPN ---
CCU Subjective - Physician Review Events Since Last Encounter (Free Text): Patient seen and examined at bedside. Patient with h/o ESRD on HD. Patient had no acute events overnight. NOt on pressors -tolerated HD yesterday 07/25/17 13:10 Subjective (Free Text): Patient was seen and examined at the bedside, Medical records reviewed, and management issues were discussed and formulated with the house staff.I have reviewed all the relevant clinical, laboratory, hemodynamic, radiographic data and medications Patient is hemodynamically stable. - central line discontinued - tolerated HD CCU Objective - Vital Signs / Intake & Output Vital Signs (Last 4 hours): Vital Signs Temp Pulse Resp BP Pulse Ox 07/25/17 12:28 91 H 21 121/58 L 100 07/25/17 12:00 98 F 07/25/17 11:28 89 19 115/73 07/25/17 10:29 98 H 15 123/75 07/25/17 09:28 92 H 18 144/64 100 Intake and Output (Last 8hrs): Intake & Output 07/24/17 07/25/17 07/25/17 22:59 06:59 14:59 Intake Total 490 250 440 Output Total 160 220 170 Balance 330 30 270 Weight 140 lb 10.479 oz Intake: Intake, IV Amount 150 150 100 Right Distal Port 50 Internal Jugular Right Medial Port 50 Internal Jugular Right Upper arm 50 150 100 Oral 340 100 340 Output: Urine 160 220 170 Urethral (Rose) 160 220 170 Other: # Bowel Movements 1 1 - Physical Exam Head: Positive for: Atraumatic, Normocephalic Pupils: Positive for: PERRL Extroacular Muscles: Positive for: EOMI Mouth: Positive for: Dry Respiratory/Chest: Positive for: Rhonchi. Negative for: Respiratory Distress, Accessory Muscle Use Cardiovascular: Positive for: Normal S1, S2 Abdomen: Positive for: Tenderness, Distention, Normal Bowel Sounds, Other Lower Extremity: Negative for: Edema Neurological: Positive for: GCS=15 Skin: Positive for: Warm, Normal Color Psychiatric: Positive for: Alert. Negative for: Oriented x 3 - Medications Active Medications: Active Medications Generic Name Dose Route Start Last Admin Trade Name Freq PRN Reason Stop Dose Admin Albuterol Sulfate 1.25 mg 07/23/17 20:00 Albuterol 0.042% Inhal Ruby (1.25mg/3ml) Ud INH RQ6 PRN Wheezing Ascorbic Acid 250 mg 07/14/17 10:00 07/25/17 09:12 Vitamin C 250 Mg Tab PO 250 mg DAILY DARINEL Administration Benzocaine/Menthol 1 love 07/14/17 04:24 07/25/17 09:12 Cepacol Sore Throat MT 1 love Q2 PRN Administration Sore Throat Calcium Acetate 1,334 mg 07/20/17 11:16 07/25/17 09:12 Phoslo PO 1,334 mg TID DARINEL Administration Clopidogrel Bisulfate 75 mg 07/14/17 10:00 07/25/17 09:12 Plavix PO 75 mg DAILY DARINEL Administration Cyproheptadine HCl 4 mg 07/14/17 10:00 07/25/17 09:12 Periactin PO 4 mg BID DARINEL Administration Donepezil HCl 10 mg 07/13/17 22:00 07/24/17 21:38 Aricept PO 10 mg HS DARINEL Administration Epoetin Romel 10,000 unit 07/27/17 09:00 Procrit IV MWF [facility] Ferrous Sulfate 325 mg 07/13/17 18:45 07/25/17 06:03 Feosol PO 325 mg Q12H DARINEL Administration Heparin Sodium (Porcine) 5,000 units 07/21/17 22:00 07/25/17 09:11 Heparin SC 5,000 units Q12 DARINEL Administration Home Med 8 mg 07/14/17 10:00 Fesoterodine Fumarate [Toviaz] PO DAILY [facility] Hydromorphone HCl 0.5 mg 07/23/17 09:56 07/25/17 10:35 Dilaudid IVP 0.5 mg Q4 PRN Administration Pain, severe (8-10) Tigecycline 50 mg/ Dextrose 100 mls @ 100 mls/hr 07/18/17 01:00 07/25/17 12: 18 IVPB 100 mls/hr Q12H DARINEL Administration Metronidazole 250 mg/ 50 mls @ 100 mls/hr 07/18/17 22:15 07/25/17 06:03 Miscellaneous IVPB 100 mls/hr Q8 DARINEL Administration Insulin Human Regular 0 unit 07/23/17 16:30 07/25/17 12:19 Novolin R SC 3 unit ACHS DARINEL Administration Protocol Latanoprost 0 ml 07/13/17 22:00 07/24/17 21:38 Xalatan Opht OU 2.5 ml HS DARINEL Administration Levothyroxine Sodium 50 mcg 07/14/17 06:30 07/25/17 06:03 Synthroid PO 50 mcg DAILY@0630 DARINEL Administration Metoprolol Succinate 100 mg 07/13/17 21:59 07/14/17 13:41 Toprol Xl PO 100 mg DAILY DARINEL Administration Ondansetron HCl 4 mg 07/14/17 00:38 Zofran Inj IVP Q6 PRN Nausea/Vomiting Pantoprazole Sodium 40 mg 07/24/17 10:00 07/25/17 09:12 Protonix Ec Tab PO 40 mg DAILY DARINEL Administration Rosuvastatin Calcium 10 mg 07/13/17 22:00 07/24/17 21:36 Crestor PO 10 mg HS DARINEL Administration Saccharomyces Boulardii 250 mg 07/14/17 10:00 07/25/17 09:11 Florastor PO 250 mg BID DARINEL Administration - Patient Studies Lab Studies: Microbiology Studies 07/20/17 03:55 Blood Culture - Final Blood-Venous NO GROWTH AFTER 5 DAYS Gram Stain - Final TEST NOT PERFORMED 07/20/17 03:55 Blood Culture - Final Blood-Venous NO GROWTH AFTER 5 DAYS Gram Stain - Final TEST NOT PERFORMED Lab Studies 07/25/17 07/25/17 07/25/17 Range/Units 11:26 07:26 06:25 WBC (4.8-10.8) K/uL RBC (4.40-5.90) Mil/uL Hgb (12.0-18.0) g/dL Hct (35.0-51.0) % MCV (80.0-94.0) fL MCH (27.0-31.0) pg MCHC (33.0-37.0) g/dL RDW (11.5-14.5) % Plt Count (130-400) K/uL MPV (7.2-11.7) fL Neut % (Auto) (50.0-75.0) % Lymph % (Auto) (20.0-40.0) % [place] % (Auto) (0.0-10.0) % Eos % (Auto) (0.0-4.0) % Baso % (Auto) (0.0-2.0) % Neut # (1.8-7.0) K/uL Lymph # (1.0-4.3) K/uL [place] # (0.0-0.8) K/uL Eos # (0.0-0.7) K/uL Baso # (0.0-0.2) K/uL Sodium 133 (132-148) mmol/L Potassium 3.7 (3.6-5.2) mmol/L Chloride 96 L (98-107) mmol/L Carbon Dioxide 27 (22-30) mmol/L Anion Gap 14 (10-20) BUN 43 H (9-20) mg/dL Creatinine 2.5 H (0.8-1.5) mg/dL Est GFR ( Amer) 30 Est GFR (Non-Af Amer) 25 POC Glucose (mg/dL) 249 H 196 H (65-110) mg/dL Random Glucose 142 H (75-110) mg/dL Calcium 8.0 L (8.6-10.4) mg/dl Phosphorus 3.7 (2.5-4.5) mg/dL Magnesium 1.9 (1.6-2.3) mg/dL Total Bilirubin 1.0 (0.2-1.3) mg/dL AST 79 H D (17-59) U/L ALT 37 (21-72) U/L Alkaline Phosphatase 114 (38-126) U/L Total Protein 4.9 L (6.3-8.3) g/dL Albumin 2.6 L (3.5-5.0) g/dL Globulin 2.3 (2.2-3.9) gm/dL Albumin/Globulin Ratio 1.1 (1.0-2.1) 07/25/17 07/24/17 07/24/17 Range/Units 06:23 21:12 16:31 WBC 16.3 H (4.8-10.8) K/uL RBC 3.35 L (4.40-5.90) Mil/uL Hgb 9.1 L (12.0-18.0) g/dL Hct 27.8 L (35.0-51.0) % MCV 83.0 (80.0-94.0) fL MCH 27.3 (27.0-31.0) pg MCHC 32.8 L (33.0-37.0) g/dL RDW 15.4 H (11.5-14.5) % Plt Count 193 (130-400) K/uL MPV 9.5 (7.2-11.7) fL Neut % (Auto) 70.6 (50.0-75.0) % Lymph % (Auto) 14.0 L (20.0-40.0) % [place] % (Auto) 12.1 H (0.0-10.0) % Eos % (Auto) 2.6 (0.0-4.0) % Baso % (Auto) 0.7 (0.0-2.0) % Neut # 11.5 H (1.8-7.0) K/uL Lymph # 2.3 (1.0-4.3) K/uL [place] # 2.0 H (0.0-0.8) K/uL Eos # 0.4 (0.0-0.7) K/uL Baso # 0.1 (0.0-0.2) K/uL Sodium (132-148) mmol/L Potassium (3.6-5.2) mmol/L Chloride (98-107) mmol/L Carbon Dioxide (22-30) mmol/L Anion Gap (10-20) BUN (9-20) mg/dL Creatinine (0.8-1.5) mg/dL Est GFR ( Amer) Est GFR (Non-Af Amer) POC Glucose (mg/dL) 154 H 142 H (65-110) mg/dL Random Glucose (75-110) mg/dL Calcium (8.6-10.4) mg/dl Phosphorus (2.5-4.5) mg/dL Magnesium (1.6-2.3) mg/dL Total Bilirubin (0.2-1.3) mg/dL AST (17-59) U/L ALT (21-72) U/L Alkaline Phosphatase (38-126) U/L Total Protein (6.3-8.3) g/dL Albumin (3.5-5.0) g/dL Globulin (2.2-3.9) gm/dL Albumin/Globulin Ratio (1.0-2.1) Laboratory Results - last 24 hr 07/24/17 07/24/17 07/25/17 16:31 21:12 06:23 WBC 16.3 H RBC 3.35 L Hgb 9.1 L Hct 27.8 L MCV 83.0 MCH 27.3 MCHC 32.8 L RDW 15.4 H Plt Count 193 MPV 9.5 Neut % (Auto) 70.6 Lymph % (Auto) 14.0 L [place] % (Auto) 12.1 H Eos % (Auto) 2.6 Baso % (Auto) 0.7 Neut # 11.5 H Lymph # 2.3 [place] # 2.0 H Eos # 0.4 Baso # 0.1 Sodium Potassium Chloride Carbon Dioxide Anion Gap BUN Creatinine Est GFR ( Amer) Est GFR (Non-Af Amer) POC Glucose (mg/dL) 142 H 154 H Random Glucose Calcium Phosphorus Magnesium Total Bilirubin AST ALT Alkaline Phosphatase Total Protein Albumin Globulin Albumin/Globulin Ratio 07/25/17 07/25/17 07/25/17 06:25 07:26 11:26 WBC RBC Hgb Hct MCV MCH MCHC RDW Plt Count MPV Neut % (Auto) Lymph % (Auto) [place] % (Auto) Eos % (Auto) Baso % (Auto) Neut # Lymph # [place] # Eos # Baso # Sodium 133 Potassium 3.7 Chloride 96 L Carbon Dioxide 27 Anion Gap 14 BUN 43 H Creatinine 2.5 H Est GFR ( Amer) 30 Est GFR (Non-Af Amer) 25 POC Glucose (mg/dL) 196 H 249 H Random Glucose 142 H Calcium 8.0 L Phosphorus 3.7 Magnesium 1.9 Total Bilirubin 1.0 AST 79 H D ALT 37 Alkaline Phosphatase 114 Total Protein 4.9 L Albumin 2.6 L Globulin 2.3 Albumin/Globulin Ratio 1.1 Fingerstick Blood Sugar Results: 249 Review of Systems - EENT Eyes: UNREMARKABLE - Cardiovascular Cardiovascular: UNREMARKABLE - Respiratory Respiratory: UNREMARKABLE - Gastrointestinal Gastrointestinal: Other Additional comments: Complaint of generalized pain, abdomen soft, no reboud no guarding Critical Care Progress Note - Ventilator Checklist Daily Sedation Vacation: No (not intubated) Daily Assessment of Readiness to Wean: No (not intubated) Daily Spontaneous Breathing Trial: No (note intubated) PUD Prophalyxis: Yes DVT Prophylaxis: Yes Oral Care with Chlorhexidine Gluconate {CHG}: Yes - Extremities/Vascular Does the Patient have a Central Venous Catheter?: No - Nutrition Nutrition: Nutrition Category Date Time Status Liquid Diet [DIET] Diets 07/23/17 Dinner Active Assessment/Plan - Assessment and Plan (Free Text) Assessment: 82 M w/ PMHx of Diabetes, HLD, HTN, Hypothyroidism, CKD stage 3 now on HD, Alzheimer's dementia, 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 Patient POD #5 s/p left internal jugular vein permacath insertion, intubated s/p cardiac arrest. -Central line removed, rose removed. remains hemodynamically stable Neuro: hx of Alzheimer's Dementia - Aricept 10 mg PO HS Cardio: HTN, hx of CVA - Dr. Chau consulted, help appreciated - Home blood pressure medications held because low BP: amlodipine 1 mg po daily , metoprolol succinate 100 mg po daily, losartan 100 mg po daily - Plavix 75 mg po daily (restarted 07/22) - crestor 10 mg po HS - metoprolol held due to hypotension - levophed drip stopped on 07/22/17 - TSH and free T4 WNL - Echo (07/13): LVEF 60%, moderate LVH. - Troponin I (07/20 - 07/21): .866, .8289, .4900 - as per Dr. Chau probable Troponin elevation due to coronary hypoperfusion from shock, likely septic etiology Pulm: bilateral pneumonia - CT Abdomen/Pelvis (07/13): bibasilar lingular and right moddle lobe infiltrates consistent with atelectasis vs. pneumonia - CXR 07/21/17: opacification of the left mid to lower lung zone and right lung base. Bilateral hilar prominence, small left pleural effusion, biapical pleural thickening, cardiomegaly. - HCAP pneumonia suspected given recent hospitalization and antibiotic use for buttock abscess - Infectious disease consulted (Dr. Langford), help appreciated - urine cultures: no growth - negative MRSA - blood culture: gram positive cocci, enterococcus faecium -continue current regimen, ID input if febrile GI: abdominal pain due to small bowel obstruction vs. ileus - Abdominal Xray (07/23): distended small large-bowel loops filled with air suggestive of bowel ileus or partial/intermittent distal small bowel obstruction. - Dr. Boyce consulted (surgery), help appreciated - Dr. Damian consulted (GI), help appreciated - liquid diet per GI -obtain CT abd/pelvis with oral contrast Nephro: CKD IV - ESRD - Dr. Oconnell consulted, help appreciated - Hemodialysis MWF PPX: - DVT: SCD's, heparin 5000 u sc q12h - GI: Protonix 40 mg IV daily - florastor Patient remains hemodynamically. stable Multi-disciplinary rounds patient's management discussed.
[2017-07-25] MEDS ORDERED: Iohexol 240 (50 ml) PO ONE (13:30)
--- NOTE | 2017-07-25 13:31 | CP.PCM.PN ---
Subjective - Date & Time of Evaluation Date of Evaluation: 07/25/17 Time of Evaluation: 13:28 - Subjective Subjective: complains of "right side" of body having bm earlier had abd pain but resolved Objective - Vital Signs/Intake and Output Vital Signs (last 24 hours): Temp Pulse Resp BP Pulse Ox 98 F 85 22 121/58 L 100 07/25/17 12:00 07/25/17 13:00 07/25/17 13:00 07/25/17 12:28 07/25/17 13:00 Intake and Output: 07/25/17 07/25/17 06:59 18:59 Intake Total 450 440 Output Total 290 170 Balance 160 270 - Medications Medications: Current Medications Albuterol Sulfate (Albuterol 0.042% Inhal Ruby (1.25mg/3ml) Ud) 1.25 mg INH RQ6 PRN PRN Reason: Wheezing Ascorbic Acid (Vitamin C 250 Mg Tab) 250 mg PO DAILY [facility] Last Admin: 07/25/17 09:12 Dose: 250 mg Benzocaine/Menthol (Cepacol Sore Throat) 1 love MT Q2 PRN PRN Reason: Sore Throat Last Admin: 07/25/17 09:12 Dose: 1 love Calcium Acetate (Phoslo) 1,334 mg PO TID [facility] Last Admin: 07/25/17 13:22 Dose: 1,334 mg Clopidogrel Bisulfate (Plavix) 75 mg PO DAILY [facility] Last Admin: 07/25/17 09:12 Dose: 75 mg Cyproheptadine HCl (Periactin) 4 mg PO BID [facility] Last Admin: 07/25/17 09:12 Dose: 4 mg Donepezil HCl (Aricept) 10 mg PO HS [facility] Last Admin: 07/24/17 21:38 Dose: 10 mg Epoetin Romel (Procrit) 10,000 unit IV MWF [facility] Ferrous Sulfate (Feosol) 325 mg PO Q12H [facility] Last Admin: 07/25/17 06:03 Dose: 325 mg Heparin Sodium (Porcine) (Heparin) 5,000 units SC Q12 [facility] Last Admin: 07/25/17 09:11 Dose: 5,000 units Home Med (Fesoterodine Fumarate [Toviaz]) 8 mg PO DAILY [facility] Hydromorphone HCl (Dilaudid) 0.5 mg IVP Q4 PRN PRN Reason: Pain, severe (8-10) Last Admin: 07/25/17 10:35 Dose: 0.5 mg Tigecycline 50 mg/ Dextrose 100 mls @ 100 mls/hr IVPB Q12H [facility] Last Admin: 07/25/17 12:18 Dose: 100 mls/hr Metronidazole 250 mg/ (Miscellaneous) 50 mls @ 100 mls/hr IVPB Q8 [facility] Last Admin: 07/25/17 13:21 Dose: 100 mls/hr Insulin Human Regular (Novolin R) 0 unit SC ACHS [facility] PRN Reason: Protocol Last Admin: 07/25/17 12:19 Dose: 3 unit Iohexol (Omnipaque 240 (50 Ml)) 50 ml PO ONCE ONE Stop: 07/25/17 13:31 Latanoprost (Xalatan Opht) 0 ml OU HS [facility] Last Admin: 07/24/17 21:38 Dose: 2.5 ml Levothyroxine Sodium (Synthroid) 50 mcg PO DAILY@0630 [facility] Last Admin: 07/25/17 06:03 Dose: 50 mcg Metoprolol Succinate (Toprol Xl) 100 mg PO DAILY [facility] Last Admin: 07/14/17 13:41 Dose: 100 mg Ondansetron HCl (Zofran Inj) 4 mg IVP Q6 PRN PRN Reason: Nausea/Vomiting Pantoprazole Sodium (Protonix Ec Tab) 40 mg PO DAILY [facility] Last Admin: 07/25/17 09:12 Dose: 40 mg Rosuvastatin Calcium (Crestor) 10 mg PO HS [facility] Last Admin: 07/24/17 21:36 Dose: 10 mg Saccharomyces Boulardii (Florastor) 250 mg PO BID [facility] Last Admin: 07/25/17 09:11 Dose: 250 mg - Labs Labs: 07/25/17 06:23 07/25/17 06:25 PT 14.3 SECONDS (9.7-12.2) H 07/16/17 04:00 INR 1.3 07/16/17 04:00 APTT 29 SECONDS (21-34) 07/13/17 20:04 - Constitutional Appears: Well, Non-toxic, No Acute Distress - Head Exam Head Exam: ATRAUMATIC - Respiratory Exam Respiratory Exam: absent: Rales, Rhonchi, Wheezes Additional comments: coarse bs - Cardiovascular Exam Cardiovascular Exam: Irregular Rhythm, +S1, +S2. absent: REGULAR RHYTHM - GI/Abdominal Exam GI & Abdominal Exam: Soft, Normal Bowel Sounds. absent: Tenderness, Organomegaly, Rebound - Neurological Exam Neurological Exam: Alert, Awake. absent: Oriented x3 Neuro motor strength exam: Left Upper Extremity: 5, Right Upper Extremity: 5, Left Lower Extremity: 3, Right Lower Extremity: 3 Assessment and Plan - Assessment and Plan (Free Text) Assessment: (1) Cardiac Arrest PEA on 07/20/17 Assessment and Plan: * Status post-procedure; patient went into PEA on 07/20 ROSC returned; intubated 07/20/17-[id number] * Chest xray (07/22/17): moderate left pleural effusion with consolidative opacification in the left mid to lower lung zone. trace right pleural effusion with adjacent right basilar consolidation. cardiomeglay. calcification at the aortic knob (2) Chest pain atypical Assessment and Plan: * Patient with atypical chest pain history * Cardio Dr. Chau does not feel that this is cardiac related * PEA on 07/21 * Per cardio note: patient does not appear to have CHF, will trend troponin * Discussed with cardio; no amiodarone needed * TSH, Free T4 are normal * ECHO 07/13/17: LV EF is WNL, moderate concentric LVH, Grade I abnormal relaxation pattern * elevated troponin due to sepsis and afib Status: Acute (3) ERCP Guidewire Perforation of Liver Capsule / Peripheral Bile Duct Assessment and Plan: * s/p ERCP with removal of stent and sphincterotomy with Dr. Damian 07/13/17 * CXR 07/13/17 does not show air under diaphragm. * Chest CT 07/13/17 shows pneumobilia as well as possible free air beneath Right Hemidiaphragm within Paraesophagel soft tissues. * CT Abdomen/Pelvis 07/13/17 shows gas fluid and stranding in the subcapsular and extracapsular area around Left Lobe Liver. * CT Abdomen/Pelvis on 07/14/17 showed gas and fluid around left lobe liver and along inferior vena cava that is unchanged, no evidence of extravasation of oral contrast from stomach or duodenem. * Abdomen X Ray 07/16/17 showed NO obstruction. * CT Abdomen/Pelvis w/o contrast 07/19/17: Fluid re-identified, which appears similar in size and likely subcapsular in location. No nathan currently evident with in the collection, Small pneumobila. Moderate bilateral pleural effusions and associated consolidations. Small abomdinla ascites. Small pelvic free fluid. Thicken walled under distended urinary bladder which contains air, Pacheco catheter is present * GI Dr. Damian spoke with IR 07/15/17 and area is NOT amenable to percutaneous drainage. * Surgery Dr. Boyce consulted: no surgical intervention at this time and keep NPO with NGT for now * 07/21: patient intubated yesterday in light of events; with OGT * 07/22: Per GI note, "Repeat CT imaging reviewed by me showing no evidence of abdominal free air or worsening fluid collection, therefore no intervention warranted at this time If prolonged intubation time is anticipated, suggest NGT placement and beginning enteral feeding" * now extubated no NGT needed now on enteral feeding oral (4) Enterococcus faecium Bacteremia * Infectious Disease (Dr. Langford) on the board * Started on Tigecycline 50 mg IV Q12H after 100 mg initial infusion (07/17/17) * Discontinued Meropenem, Ciprofloxicin, and Vancomycin (07/17/17) * 07/14/17: Enterococcus Faecium X2 * Blood Culture: 07/17/17: No growth after 48 hours (1 bottle negative for 4 days/the 2nd one supports Enterococcus Faecium) * Blood Culture: 07/20/17: No growth after 3 days X3 * On contact isolation Status: Acute (5). Atrial Fibrillation/Elevated Troponin * Cardiology (Dr. Chau) on board-->help appreciated * Amiodarone 900mg IV Q 24H * Toprol XL 100mg PO daily (held) * The Atrial Fibrillation is likely secondary to the increased sympathetic tone from the Sepsis and the elevated Troponin likely secondary to the Atrial Fibrillation * Repeat EKG (NSR) 07/21/17 Status: Acute (6) Bilateral Pneumonia * CT Abdomen/Pelvis 07/13/17 showed bibasilar lingular and right middle lobe mild nonspecific infiltrates consistent with atelectasis/pneumonia * As patient was admitted to hospital within the last month (for Left Buttock Abscess) and has been on antibiotics, this is likely Health Care Associated Pneumonia with increased risk for Multidrug Resistence therefore he was treated with the following: * Meropenem 500 mg IV Q6H (07/14/17 through 07/17/17), Ciprofloxacin 400 mg IV Q12H (07/14/17 through 07/16/17),Vancomycin 1 gm IV Q24H (07/14/17 through ) and then patient started on Tigecycline as mentioned above * CT Abdomen/Pelvis w/o contrast 07/19/17: Fluid re-identified, which appears similar in size and likely subcapsular in location. No nathan currently evident with in the collection, Small pneumobila. Moderate bilateral pleural effusions and associated consolidations. Small abomdinla ascites. Small pelvic free fluid. Thicken walled under distended urinary bladder which contains air, Pacheco catheter is present * Chest xray (07/22/17): moderate left pleural effusion with consolidative opacification in the left mid to lower lung zone. trace right pleural effusion with adjacent right basilar consolidation. cardiomeglay. calcification at the aortic knob * Urine Legionella Ag is negative * Urine Strep pneumoniae Ag: non detected * Mycoplasma IgM is 81 (negative) Ig.07 * Influenza A/B is negative * Urine Culture is negative Status: Acute (7). Anion Gap Metabolic Acidosis * Sepsis: CODE SEPSIS was called 07/14/17 * See Assessment and Plans #2, #3, #5 * Due to the severe acidosis he was also started on D5W with 3 amps of NaHCO3 running at 100 ml/hour and this had resolved therefore the D5W NaHCO3 was discontinued 07/15/17. However the Acidosis returned and is likely secondary to the worsening Renal Function/Sepsis. Status: Acute (8). Hyperkalemia * Likely secondary to the Anion Gap Metabolic Acidosis * See Assessment and Plans #2 and #3 * Mild Status: Acute (9). CKD Stage III/Worsening Renal Failure/Hyponatremia * Nephrology Dr. Oconnell * The worsening Renal Function likely secondary to the Sepsis * Worsening Hyponatremia likely dilutional from the IVF initially used to help with the Renal Function. IVF have been discontinued. * Lasix 60 mg IV 2x/day started 07/18/17 to help with the Hyponatremia however there was no significant improvement on 07/19/17 * Despite the Lasix, renal function worsening 07/19/17. Construction Helper director of agronomy Dr. Larsen was notified 07/19/17 and HD orders have been provided by Dr. Larsen to HD Nurse Ramon Garibay to start HD once Dialysis Catheter is placed by the Surgical Team which is planned for morning of 07/20/17. * 07/21: patient started dialysis on 07/20; 800 ML removed * 07/22: patient to have 2nd session of dialysis today; per discussion with nurse Status: Acute on Chronic (10). Headache with Hx CVA Assessment and Plan: * CT Head 07/13/17 was negative for bleed or acute process * If NO surgical/IR intervention will then restart ASA * held Plavix 75 mg PO 1x/day since 07/14/17-->07/22:will need to discuss with surgery if plavix can be restarted in light of stroke hx Status: Acute (11) AD (Alzheimer's disease) Assessment and Plan: * Aricept 10 mg PO daily. Status: Chronic (12) Choledocholithiasis Assessment and Plan: * s/p ERCP with removal of stent and sphincterotomy with Dr. Damian 07/13/17 * 07/22: Per GI note, "Repeat CT imaging reviewed by me showing no evidence of abdominal free air or worsening fluid collection, therefore no intervention warranted at this time If prolonged intubation time is anticipated, suggest NGT placement and beginning enteral feeding" Status: Acute (13) Anemia Assessment and Plan: * Likely secondary to Chronic Disease: CKD Stage III * Resume Ferrous Sulfate 325 mg PO daily. * HgB/Hct are stable Status: Chronic (14) Hx Left Gluteal abscess Assessment and Plan: * Was I&D by surgery team on 06/26/17 * Treated with Bactrim 800/160 PO Q12H for 7 days S/P discharge 06/27/17 Status: Chronic (15) HLD (hyperlipidemia) Assessment and Plan: * Lopid 600 mg PO BID * Patient takes Lipitor 80 mg PO HS which is not on formulary therefore Crestor 10 mg PO HS (renal dosed). Status: Chronic (16) HTN (hypertension) Assessment and Plan: * As the patient's blood pressure is on the low end and he is off Amiodarone Drip since 07/21, therefore the following medications are on HOLD: Amlodipine 10 mg PO daily, Metoprolol XL 100 mg PO daily, and Losartan 100 mg PO daily are all on HOLD * 07/22: patient is off Amiodarone drip since 07/21; but patient is back in atrial fibrillation but is due for second dialysis today. patient's anti- hypertensives remain on hold Status: Chronic (17) Hx of stroke without residual deficits Assessment and Plan: * CT Head 07/13/17 was negative for bleed or acute process * Crestor 10 mg PO HS (renal dosed). * Hold ASA as mentioned above * Hold Plavix 75 mg PO 1x/day since 07/14/17--->will need to discuss with surgery in regards to restart aspirin/plavix Status: Chronic (18) Diabetes Assessment and Plan: * Blood Glucose elevated at times: he is on clear liquids * ISS Q6H * Accuchecks Q6H Status: Chronic (19) History of hypothyroidism Assessment and Plan: * Levothyroxine 50 mcg PO daily * TSH, Free T4 are normal Status: Chronic (20) Overactive bladder Assessment and Plan: * Festerodine 8 mg PO 1x/day * Enlarged Prostate on CT Abdomen/Pelvis * PSA ordered 07/14/17 but I do not see results. I believe he can follow this up as an outpatient. Status: Chronic (21) Hx of glaucoma Assessment and Plan: * Patient's home med Travatan ggt not on formulary. * Started Xalatan ggt in bilateral eyes. Status: Chronic (22) Hx of gastroesophageal reflux (GERD) Assessment and Plan: * Protonix 40 mg IV daily Status: Chronic (23) Prophylactic measure Assessment and Plan: * Protonix 40 mg daily * SCDs * Hold chemical anticoagulation for now for reasons mentioned above * Ascorbic Acid 250 mg PO daily * Florastor 250 mg PO 2x/day * Zofran 4 mg IV Q6H PRN N/V * Morphine 0.5 mg IV Q6H PRN Severe Pain with Holding Parameters (hesitant to give anything more due to the low end of normal Blood Pressure) * Intubated on 07/20/17; extubated 07/22/17; on Pressor 07/21; off sedation; off amiodarone IV 07/21
--- NOTE | 2017-07-25 15:50 | CP.PCM.PN ---
<Soumya Malin - Last Filed: 07/25/17 15:52> Subjective - Date & Time of Evaluation Date of Evaluation: 07/25/17 Time of Evaluation: 08:00 - Subjective Subjective: Gastroenterology Fellow PGY4 Progress Note Patient remains stable overnight. Notes minimal improvement in abdominal pain. Tolerated clear liquid diet. One bowel movement overnight. A 12-point review of systems not completed due to advanced Dementia. Objective - Vital Signs/Intake and Output Vital Signs (last 24 hours): Temp Pulse Resp BP Pulse Ox 98 F 89 22 136/65 100 07/25/17 12:00 07/25/17 15:28 07/25/17 15:28 07/25/17 15:28 07/25/17 15:28 Intake and Output: 07/25/17 07/25/17 06:59 18:59 Intake Total 450 910 Output Total 290 215 Balance 160 695 - Medications Medications: Current Medications Albuterol Sulfate (Albuterol 0.042% Inhal Ruby (1.25mg/3ml) Ud) 1.25 mg INH RQ6 PRN PRN Reason: Wheezing Ascorbic Acid (Vitamin C 250 Mg Tab) 250 mg PO DAILY [facility] Last Admin: 07/25/17 09:12 Dose: 250 mg Benzocaine/Menthol (Cepacol Sore Throat) 1 love MT Q2 PRN PRN Reason: Sore Throat Last Admin: 07/25/17 09:12 Dose: 1 love Calcium Acetate (Phoslo) 1,334 mg PO TID [facility] Last Admin: 07/25/17 13:22 Dose: 1,334 mg Clopidogrel Bisulfate (Plavix) 75 mg PO DAILY [facility] Last Admin: 07/25/17 09:12 Dose: 75 mg Cyproheptadine HCl (Periactin) 4 mg PO BID [facility] Last Admin: 07/25/17 09:12 Dose: 4 mg Donepezil HCl (Aricept) 10 mg PO HS [facility] Last Admin: 07/24/17 21:38 Dose: 10 mg Epoetin Romel (Procrit) 10,000 unit IV MWF [facility] Ferrous Sulfate (Feosol) 325 mg PO Q12H [facility] Last Admin: 07/25/17 06:03 Dose: 325 mg Heparin Sodium (Porcine) (Heparin) 5,000 units SC Q12 [facility] Last Admin: 07/25/17 09:11 Dose: 5,000 units Home Med (Fesoterodine Fumarate [Toviaz]) 8 mg PO DAILY [facility] Hydromorphone HCl (Dilaudid) 0.5 mg IVP Q4 PRN PRN Reason: Pain, severe (8-10) Last Admin: 07/25/17 15:10 Dose: 0.5 mg Tigecycline 50 mg/ Dextrose 100 mls @ 100 mls/hr IVPB Q12H [facility] Last Admin: 07/25/17 12:18 Dose: 100 mls/hr Metronidazole 250 mg/ (Miscellaneous) 50 mls @ 100 mls/hr IVPB Q8 [facility] Last Admin: 07/25/17 13:21 Dose: 100 mls/hr Insulin Human Regular (Novolin R) 0 unit SC ACHS [facility] PRN Reason: Protocol Last Admin: 07/25/17 12:19 Dose: 3 unit Latanoprost (Xalatan Opht) 0 ml OU HS [facility] Last Admin: 07/24/17 21:38 Dose: 2.5 ml Levothyroxine Sodium (Synthroid) 50 mcg PO DAILY@0630 [facility] Last Admin: 07/25/17 06:03 Dose: 50 mcg Metoprolol Succinate (Toprol Xl) 100 mg PO DAILY [facility] Last Admin: 07/14/17 13:41 Dose: 100 mg Ondansetron HCl (Zofran Inj) 4 mg IVP Q6 PRN PRN Reason: Nausea/Vomiting Pantoprazole Sodium (Protonix Ec Tab) 40 mg PO DAILY [facility] Last Admin: 07/25/17 09:12 Dose: 40 mg Rosuvastatin Calcium (Crestor) 10 mg PO HS [facility] Last Admin: 07/24/17 21:36 Dose: 10 mg Saccharomyces Boulardii (Florastor) 250 mg PO BID [facility] Last Admin: 07/25/17 09:11 Dose: 250 mg - Labs Labs: 07/25/17 06:23 07/25/17 06:25 PT 14.3 SECONDS (9.7-12.2) H 07/16/17 04:00 INR 1.3 07/16/17 04:00 APTT 29 SECONDS (21-34) 07/13/17 20:04 - Constitutional Appears: No Acute Distress, Cachectic, Chronically Ill - Head Exam Head Exam: ATRAUMATIC, NORMOCEPHALIC - Eye Exam Eye Exam: Normal appearance - ENT Exam ENT Exam: Mucous Membranes Moist - Respiratory Exam Respiratory Exam: Clear to Ausculation Bilateral, NORMAL BREATHING PATTERN. absent: Rales, Rhonchi, Wheezes, Respiratory Distress - Cardiovascular Exam Cardiovascular Exam: REGULAR RHYTHM, +S1, +S2 - GI/Abdominal Exam GI & Abdominal Exam: Soft, Normal Bowel Sounds. absent: Guarding, Rigid, Tenderness, Organomegaly, Rebound - Extremities Exam Extremities Exam: absent: Joint Swelling, Pedal Edema - Back Exam Back Exam: CVA tenderness (L) - Neurological Exam Neurological Exam: Alert, Awake - Psychiatric Exam Psychiatric exam: Normal Affect, Normal Mood - Skin Skin Exam: Dry, Intact, Normal Color, Warm Assessment and Plan - Assessment and Plan (Free Text) Assessment: 82 year old male with history of Diabetes, Hyperlipidemia, Hypertension, Hypothyroidism, CKD, Alzheimer's Dementia, CVA on Plavix, and cholangitis s/p ERCP with CBD stent (04/2017). Active treatment of renal failure on HD, day 1 ( 07/22) post extubation for hypoxic VDRF s/p PEA arrest with ROSC (07/20), HCAP, E. faecium Bacteremia with blood culture negative at 48 hours, and ERCP guidewire pneumoperitoneum with hepatic subcapsular/extracapsular fluid collection with conservative management. Plan: >full liquid diet, advance as tolerated >continue conservative management of hepatic subcapsular fluid collection >07/[address] A/P- unchanged fluid collection >repeat CT ordered by ICU >ID managing- broad spectrum antibiotics >nephrology managing- 07/20 and 07/22 and 07/24 received dialysis >will follow clinical course D/W Dr. Livingston <[facility] - Last Filed: 07/26/17 16:19> Objective - Vital Signs/Intake and Output Vital Signs (last 24 hours): Temp Pulse Resp BP Pulse Ox 99 F 97 H 17 122/47 L 100 07/26/17 15:39 07/26/17 15:18 07/26/17 15:18 07/26/17 15:18 07/26/17 15:18 Intake and Output: 07/26/17 07/26/17 06:59 18:59 Intake Total 440 340 Output Total 465 Balance -25 340 - Medications Medications: Current Medications Albuterol Sulfate (Albuterol 0.042% Inhal Ruby (1.25mg/3ml) Ud) 1.25 mg INH RQ6 PRN PRN Reason: Wheezing Ascorbic Acid (Vitamin C 250 Mg Tab) 250 mg PO DAILY [facility] Last Admin: 07/26/17 09:27 Dose: 250 mg Aspirin (Aspirin Chewable) 81 mg PO DAILY [facility] Benzocaine/Menthol (Cepacol Sore Throat) 1 love MT Q2 PRN PRN Reason: Sore Throat Last Admin: 07/25/17 09:12 Dose: 1 love Calcium Acetate (Phoslo) 1,334 mg PO TID [facility] Last Admin: 07/26/17 14:00 Dose: 1,334 mg Clopidogrel Bisulfate (Plavix) 75 mg PO DAILY [facility] Last Admin: 07/26/17 09:14 Dose: 75 mg Cyproheptadine HCl (Periactin) 4 mg PO BID [facility] Last Admin: 07/26/17 09:27 Dose: 4 mg Donepezil HCl (Aricept) 10 mg PO HS [facility] Last Admin: 07/25/17 21:05 Dose: 10 mg Epoetin Romel (Procrit) 10,000 unit IV MWF [facility] Ferrous Sulfate (Feosol) 325 mg PO Q12H [facility] Last Admin: 07/26/17 05:59 Dose: 325 mg Heparin Sodium (Porcine) (Heparin) 5,000 units SC Q12 [facility] Last Admin: 07/26/17 09:15 Dose: 5,000 units Home Med (Fesoterodine Fumarate [Toviaz]) 8 mg PO DAILY [facility] Hydromorphone HCl (Dilaudid) 0.5 mg IVP Q4 PRN PRN Reason: Pain, severe (8-10) Last Admin: 07/26/17 12:18 Dose: 0.5 mg Tigecycline 50 mg/ Dextrose 100 mls @ 100 mls/hr IVPB Q12H [facility] Last Admin: 07/26/17 12:49 Dose: 100 mls/hr Metronidazole 250 mg/ (Miscellaneous) 50 mls @ 100 mls/hr IVPB Q8 [facility] Last Admin: 07/26/17 13:40 Dose: 100 mls/hr Insulin Human Regular (Novolin R) 0 unit SC ACHS [facility] PRN Reason: Protocol Last Admin: 07/26/17 12:42 Dose: 3 unit Latanoprost (Xalatan Opht) 0 ml OU HS [facility] Last Admin: 07/25/17 21:06 Dose: 2.5 ml Levothyroxine Sodium (Synthroid) 50 mcg PO DAILY@0630 [facility] Last Admin: 07/26/17 05:59 Dose: 50 mcg Metoprolol Succinate (Toprol Xl) 100 mg PO DAILY [facility] Last Admin: 07/14/17 13:41 Dose: 100 mg Ondansetron HCl (Zofran Inj) 4 mg IVP Q6 PRN PRN Reason: Nausea/Vomiting Pantoprazole Sodium (Protonix Ec Tab) 40 mg PO DAILY [facility] Last Admin: 07/26/17 09:16 Dose: 40 mg Polyethylene Glycol (Miralax) 17 gm PO DAILY [facility] Last Admin: 07/26/17 15:32 Dose: 17 gm Rosuvastatin Calcium (Crestor) 10 mg PO HS [facility] Last Admin: 07/25/17 21:05 Dose: 10 mg Saccharomyces Boulardii (Florastor) 250 mg PO BID [facility] Last Admin: 07/26/17 09:14 Dose: 250 mg - Labs Labs: 07/25/17 06:23 07/25/17 06:25 PT 14.3 SECONDS (9.7-12.2) H 07/16/17 04:00 INR 1.3 07/16/17 04:00 APTT 29 SECONDS (21-34) 07/13/17 20:04 Attending/Attestation - Attestation I have personally seen and examined this patient.: Yes I have fully participated in the care of the patient.: Yes I have reviewed all pertinent clinical information, including history, physical exam and plan: Yes Notes (Text): 07/26/17 16:18 Late entry. patient was seen with GI fellow in MICU this weekend. This is a 82 year old male with h/o DM, HTN, HLD, Hypothyroidism, Dementia, CKD, h/o cholangitis s/p ERCP with stent, subsequent ERCP complicated by guidewire perforation, bacteremia/sepsis, renal failure, dialysis, respiratory failure requiring mechanical ventilation now off vent and pressors. tolerating liquid diet an dpassing flatus and small bowel movements. Continue antibiotics and rest of plan as per MICU. Discussed with prison officer and hospitalist
--- NOTE | 2017-07-25 17:40 | CT ---
PROCEDURE: CT Abdomen and Pelvis with contrast HISTORY: PERSISTENT ABD PAIN COMPARISON: 07/19/2017. TECHNIQUE: CT scan of the abdomen and pelvis was performed without administration of intravenous contrast. Oral contrast was administered. Coronal and sagittal reformatted images were obtained. Radiation dose: Total exam DLP = 438.00 MGy-cm. This CT exam was performed using one or more of the following dose reduction techniques: Automated exposure control, adjustment of the mA and/or kV according to patient size, and/or use of iterative reconstruction technique. FINDINGS: LOWER THORAX: Small right and moderate left pleural effusions with compressive atelectasis in the lungs LIVER: The liver is normal in size and there is diffuse fatty infiltration. No gross lesion or ductal dilatation. GALLBLADDER AND BILE DUCTS: Surgically absent. Small amount of air in the central biliary radicles is likely postsurgical in etiology. PANCREAS: Normal in size. No gross lesion or ductal dilatation. SPLEEN: Normal in size and appearance. ADRENALS: No discrete nodule. KIDNEYS AND URETERS: Normal in size without hydronephrosis or nephrolithiasis. VASCULATURE: No aortic aneurysm. BOWEL: The small bowel loops are normal in caliber. APPENDIX: No inflammatory changes in the right lower quadrant. PERITONEUM: No free fluid. No free air. LYMPH NODES: No enlarged lymph nodes. BLADDER: Decompressed with an indwelling Pacheco catheter and intraluminal air likely related to instrumentation. REPRODUCTIVE: Unremarkable. BONES: No acute fracture. Within normal limits for the patient's age OTHER FINDINGS: Bilateral fat containing inguinal scrotal hernias. IMPRESSION: No acute abdominal or pelvic abnormality. Small right and moderate left pleural effusions. Fatty liver.
[2017-07-25] MEDS ORDERED: HYDROmorphone 0.5 mg/0.5 ml ISec IVP ONE (18:15)
[2017-07-25] MEDS: Latanoprost 2.5 ml Opht Soln OU SCH (21:06)
[2017-07-26] MEDS: Tigecycline 50 MG in Dextrose 5% In Water 100 ML IVPB SCH ×2 (00:21→12:49)
[2017-07-26] MEDS: HYDROmorphone 0.5 mg/0.5 ml ISec IVP PRN ×3 (02:46→21:14)
[2017-07-26] MEDS: metroNIDAZOLE IV 500 mg/100 ml 250 MG in Premixed IV 1 EA IVPB SCH ×3 (05:58→22:00)
[2017-07-26] MEDS: Levothyroxine 50 MCG TAB PO SCH (05:59)
[2017-07-26] MEDS: (Novolin R) Insulin Human Regular 100 units/ml vial SC SCH ×3 (07:30→17:33)
--- NOTE | 2017-07-26 08:24 | CP.PCM.PN ---
<Marcelino Ordoñez - Last Filed: 07/26/17 08:22> Subjective - Date & Time of Evaluation Date of Evaluation: 07/26/17 Time of Evaluation: 07:40 - Subjective Subjective: General Surgery Note for Dr. Boyce Patient seen and examined at bedside. No acute event overnight. He is resting comfortably in bed. Patient still complaining of epigastric pain. He is also experiencing nausea still. He is tolerating diet and having normal BMs. No other complaints today. Objective - Vital Signs/Intake and Output Vital Signs (last 24 hours): Temp Pulse Resp BP Pulse Ox 98.5 F 87 29 H 116/50 L 98 07/26/17 04:00 07/26/17 07:00 07/26/17 07:00 07/26/17 06:28 07/26/17 07:00 Intake and Output: 07/26/17 07/26/17 06:59 18:59 Intake Total 440 Output Total 465 Balance -25 - Medications Medications: Current Medications Albuterol Sulfate (Albuterol 0.042% Inhal Ruby (1.25mg/3ml) Ud) 1.25 mg INH RQ6 PRN PRN Reason: Wheezing Ascorbic Acid (Vitamin C 250 Mg Tab) 250 mg PO DAILY [facility] Last Admin: 07/25/17 09:12 Dose: 250 mg Benzocaine/Menthol (Cepacol Sore Throat) 1 love MT Q2 PRN PRN Reason: Sore Throat Last Admin: 07/25/17 09:12 Dose: 1 love Calcium Acetate (Phoslo) 1,334 mg PO TID [facility] Last Admin: 07/25/17 18:12 Dose: 1,334 mg Clopidogrel Bisulfate (Plavix) 75 mg PO DAILY [facility] Last Admin: 07/25/17 09:12 Dose: 75 mg Cyproheptadine HCl (Periactin) 4 mg PO BID [facility] Last Admin: 07/25/17 18:12 Dose: 4 mg Donepezil HCl (Aricept) 10 mg PO HS [facility] Last Admin: 07/25/17 21:05 Dose: 10 mg Epoetin Romel (Procrit) 10,000 unit IV MWF [facility] Ferrous Sulfate (Feosol) 325 mg PO Q12H [facility] Last Admin: 07/26/17 05:59 Dose: 325 mg Heparin Sodium (Porcine) (Heparin) 5,000 units SC Q12 [facility] Last Admin: 07/25/17 21:04 Dose: 5,000 units Home Med (Fesoterodine Fumarate [Toviaz]) 8 mg PO DAILY [facility] Hydromorphone HCl (Dilaudid) 0.5 mg IVP Q4 PRN PRN Reason: Pain, severe (8-10) Last Admin: 07/26/17 02:46 Dose: 0.5 mg Tigecycline 50 mg/ Dextrose 100 mls @ 100 mls/hr IVPB Q12H [facility] Last Admin: 07/26/17 00:21 Dose: 100 mls/hr Metronidazole 250 mg/ (Miscellaneous) 50 mls @ 100 mls/hr IVPB Q8 [facility] Last Admin: 07/26/17 05:58 Dose: 100 mls/hr Insulin Human Regular (Novolin R) 0 unit SC ACHS [facility] PRN Reason: Protocol Last Admin: 07/25/17 21:39 Dose: Not Given Latanoprost (Xalatan Opht) 0 ml OU HS [facility] Last Admin: 07/25/17 21:06 Dose: 2.5 ml Levothyroxine Sodium (Synthroid) 50 mcg PO DAILY@0630 [facility] Last Admin: 07/26/17 05:59 Dose: 50 mcg Metoprolol Succinate (Toprol Xl) 100 mg PO DAILY [facility] Last Admin: 07/14/17 13:41 Dose: 100 mg Ondansetron HCl (Zofran Inj) 4 mg IVP Q6 PRN PRN Reason: Nausea/Vomiting Pantoprazole Sodium (Protonix Ec Tab) 40 mg PO DAILY [facility] Last Admin: 07/25/17 09:12 Dose: 40 mg Rosuvastatin Calcium (Crestor) 10 mg PO HS [facility] Last Admin: 07/25/17 21:05 Dose: 10 mg Saccharomyces Boulardii (Florastor) 250 mg PO BID [facility] Last Admin: 07/25/17 18:12 Dose: 250 mg - Labs Labs: 07/25/17 06:23 07/25/17 06:25 PT 14.3 SECONDS (9.7-12.2) H 07/16/17 04:00 INR 1.3 07/16/17 04:00 APTT 29 SECONDS (21-34) 07/13/17 20:04 - Constitutional Appears: No Acute Distress - Head Exam Head Exam: ATRAUMATIC, NORMOCEPHALIC - Eye Exam Eye Exam: Normal appearance - ENT Exam ENT Exam: Mucous Membranes Moist - Neck Exam Additional comments: Left IJ permacath - Respiratory Exam Respiratory Exam: NORMAL BREATHING PATTERN - Cardiovascular Exam Cardiovascular Exam: REGULAR RHYTHM - GI/Abdominal Exam GI & Abdominal Exam: Soft, Tenderness (epigastric). absent: Distended, Firm, Guarding, Rigid, Mass, Rebound - Extremities Exam Extremities Exam: Normal Capillary Refill - Neurological Exam Neurological Exam: Alert, Awake - Psychiatric Exam Psychiatric exam: Normal Affect, Normal Mood - Skin Skin Exam: Dry, Intact, Normal Color, Warm Assessment and Plan - Assessment and Plan (Free Text) Plan: 82 M s/p Left IJ permacath POD #6 -Full Liquid diet, ADAT -Analgesics/Anti-emetics PRN -Management as per primary -Will discuss with Dr. Austen Ordoñez PGY1 <Manohar Boyce - Last Filed: 07/29/17 18:33> Objective - Vital Signs/Intake and Output Vital Signs (last 24 hours): Temp Pulse Resp BP Pulse Ox 97.9 F 80 20 132/71 99 07/29/17 16:00 07/29/17 16:00 07/29/17 16:00 07/29/17 16:00 07/29/17 16:00 Intake and Output: 07/29/17 07/29/17 06:59 18:59 Intake Total 300 120 Output Total 200 Balance 100 120 - Medications Medications: Current Medications Albuterol Sulfate (Albuterol 0.042% Inhal Ruby (1.25mg/3ml) Ud) 1.25 mg INH RQ6 PRN PRN Reason: Wheezing Last Admin: 07/28/17 07:05 Dose: 1.25 mg Ascorbic Acid (Vitamin C 250 Mg Tab) 250 mg PO DAILY [facility] Last Admin: 07/29/17 11:44 Dose: 250 mg Aspirin (Aspirin Chewable) 81 mg PO DAILY [facility] Last Admin: 07/29/17 11:42 Dose: 81 mg Benzocaine/Menthol (Cepacol Sore Throat) 1 love MT Q2 PRN PRN Reason: Sore Throat Last Admin: 07/25/17 09:12 Dose: 1 love Calcium Acetate (Phoslo) 1,334 mg PO TID [facility] Last Admin: 07/29/17 13:49 Dose: 1,334 mg Clopidogrel Bisulfate (Plavix) 75 mg PO DAILY [facility] Last Admin: 07/29/17 11:12 Dose: 75 mg Cyproheptadine HCl (Periactin) 4 mg PO BID [facility] Last Admin: 07/29/17 18:24 Dose: 4 mg Donepezil HCl (Aricept) 10 mg PO HS [facility] Last Admin: 07/28/17 21:17 Dose: 10 mg Epoetin Romel (Procrit) 10,000 unit IV MWF [facility] Last Admin: 07/29/17 11:43 Dose: 10,000 unit Ferrous Sulfate (Feosol) 325 mg PO Q12H [facility] Last Admin: 07/29/17 18:20 Dose: 325 mg Heparin Sodium (Porcine) (Heparin) 5,000 units SC Q12 [facility] Last Admin: 07/29/17 11:15 Dose: 5,000 units Home Med (Fesoterodine Fumarate [Toviaz]) 8 mg PO DAILY [facility] Hydromorphone HCl (Dilaudid) 0.5 mg IVP Q4 PRN PRN Reason: Pain, severe (8-10) Last Admin: 07/29/17 11:00 Dose: 0.5 mg Metronidazole 250 mg/ (Miscellaneous) 50 mls @ 100 mls/hr IVPB Q8 [facility] Last Admin: 07/29/17 13:43 Dose: 100 mls/hr Insulin Human Regular (Novolin R) 0 unit SC ACHS [facility] PRN Reason: Protocol Last Admin: 07/29/17 16:56 Dose: 3 unit Latanoprost (Xalatan Opht) 0 ml OU HS [facility] Last Admin: 07/28/17 22:00 Dose: 2.5 ml Levothyroxine Sodium (Synthroid) 50 mcg PO DAILY@0630 [facility] Last Admin: 07/29/17 06:22 Dose: 50 mcg Metoprolol Succinate (Toprol Xl) 25 mg PO DAILY [facility] Last Admin: 07/29/17 11:18 Dose: 25 mg Ondansetron HCl (Zofran Inj) 4 mg IVP Q6 PRN PRN Reason: Nausea/Vomiting Last Admin: 07/29/17 13:43 Dose: 4 mg Pantoprazole Sodium (Protonix Ec Tab) 40 mg PO DAILY [facility] Last Admin: 07/29/17 11:13 Dose: 40 mg Polyethylene Glycol (Miralax) 17 gm PO DAILY [facility] Last Admin: 07/29/17 11:19 Dose: 17 gm Rosuvastatin Calcium (Crestor) 10 mg PO HS [facility] Last Admin: 07/28/17 21:17 Dose: 10 mg Saccharomyces Boulardii (Florastor) 250 mg PO BID [facility] Last Admin: 07/29/17 18:20 Dose: 250 mg - Labs Labs: 07/29/17 06:08 07/29/17 06:08 PT 14.3 SECONDS (9.7-12.2) H 07/16/17 04:00 INR 1.3 07/16/17 04:00 APTT 29 SECONDS (21-34) 07/13/17 20:04 Attending/Attestation - Attestation I have fully participated in the care of the patient.: Yes I have reviewed all pertinent clinical information, including history, physical exam and plan: Yes Notes (Text): Pt with Resolving Ileus Leucocytosis is improving continue with current mx Plan d.w pt in detail.
[2017-07-26] MEDS: Saccharomyces Boulardi 250 mg Cap PO SCH ×2 (09:14→17:38)
[2017-07-26] MEDS: Pantoprazole 40 mg EC Tab PO SCH (09:16)
--- NOTE | 2017-07-26 10:15 | CP.PCM.PN ---
<Buzz Hope - Last Filed: 07/26/17 10:13> Subjective - Date & Time of Evaluation Date of Evaluation: 07/26/17 Time of Evaluation: 10:13 - Subjective Subjective: Patient seen and examined at bedside States pain in his leg, throat and chest when he breaths Nauseas but has not vomited Tolerating a liquid diet Denies fever, chills, diarrhea constipation Objective - Vital Signs/Intake and Output Vital Signs (last 24 hours): Temp Pulse Resp BP Pulse Ox 98.5 F 94 H 16 147/66 99 07/26/17 04:00 07/26/17 09:00 07/26/17 09:00 07/26/17 08:29 07/26/17 09:00 Intake and Output: 07/26/17 07/26/17 06:59 18:59 Intake Total 440 Output Total 465 Balance -25 - Medications Medications: Current Medications Albuterol Sulfate (Albuterol 0.042% Inhal Ruby (1.25mg/3ml) Ud) 1.25 mg INH RQ6 PRN PRN Reason: Wheezing Ascorbic Acid (Vitamin C 250 Mg Tab) 250 mg PO DAILY [facility] Last Admin: 07/26/17 09:27 Dose: 250 mg Benzocaine/Menthol (Cepacol Sore Throat) 1 love MT Q2 PRN PRN Reason: Sore Throat Last Admin: 07/25/17 09:12 Dose: 1 love Calcium Acetate (Phoslo) 1,334 mg PO TID [facility] Last Admin: 07/26/17 09:15 Dose: 1,334 mg Clopidogrel Bisulfate (Plavix) 75 mg PO DAILY [facility] Last Admin: 07/26/17 09:14 Dose: 75 mg Cyproheptadine HCl (Periactin) 4 mg PO BID [facility] Last Admin: 07/26/17 09:27 Dose: 4 mg Donepezil HCl (Aricept) 10 mg PO HS [facility] Last Admin: 07/25/17 21:05 Dose: 10 mg Epoetin Romel (Procrit) 10,000 unit IV MWF [facility] Ferrous Sulfate (Feosol) 325 mg PO Q12H [facility] Last Admin: 07/26/17 05:59 Dose: 325 mg Heparin Sodium (Porcine) (Heparin) 5,000 units SC Q12 [facility] Last Admin: 07/26/17 09:15 Dose: 5,000 units Home Med (Fesoterodine Fumarate [Toviaz]) 8 mg PO DAILY [facility] Hydromorphone HCl (Dilaudid) 0.5 mg IVP Q4 PRN PRN Reason: Pain, severe (8-10) Last Admin: 07/26/17 02:46 Dose: 0.5 mg Tigecycline 50 mg/ Dextrose 100 mls @ 100 mls/hr IVPB Q12H [facility] Last Admin: 07/26/17 00:21 Dose: 100 mls/hr Metronidazole 250 mg/ (Miscellaneous) 50 mls @ 100 mls/hr IVPB Q8 [facility] Last Admin: 07/26/17 05:58 Dose: 100 mls/hr Insulin Human Regular (Novolin R) 0 unit SC ACHS [facility] PRN Reason: Protocol Last Admin: 07/26/17 07:30 Dose: Not Given Latanoprost (Xalatan Opht) 0 ml OU HS [facility] Last Admin: 07/25/17 21:06 Dose: 2.5 ml Levothyroxine Sodium (Synthroid) 50 mcg PO DAILY@0630 [facility] Last Admin: 07/26/17 05:59 Dose: 50 mcg Metoprolol Succinate (Toprol Xl) 100 mg PO DAILY [facility] Last Admin: 07/14/17 13:41 Dose: 100 mg Ondansetron HCl (Zofran Inj) 4 mg IVP Q6 PRN PRN Reason: Nausea/Vomiting Pantoprazole Sodium (Protonix Ec Tab) 40 mg PO DAILY [facility] Last Admin: 07/26/17 09:16 Dose: 40 mg Rosuvastatin Calcium (Crestor) 10 mg PO HS [facility] Last Admin: 07/25/17 21:05 Dose: 10 mg Saccharomyces Boulardii (Florastor) 250 mg PO BID [facility] Last Admin: 07/26/17 09:14 Dose: 250 mg - Labs Labs: 07/25/17 06:23 07/25/17 06:25 PT 14.3 SECONDS (9.7-12.2) H 07/16/17 04:00 INR 1.3 07/16/17 04:00 APTT 29 SECONDS (21-34) 07/13/17 20:04 - Constitutional Appears: Non-toxic - Head Exam Head Exam: ATRAUMATIC, NORMAL INSPECTION, NORMOCEPHALIC - Eye Exam Eye Exam: EOMI - ENT Exam ENT Exam: Mucous Membranes Moist - Respiratory Exam Respiratory Exam: Clear to Ausculation Bilateral, NORMAL BREATHING PATTERN - Cardiovascular Exam Cardiovascular Exam: Tachycardia, Irregular Rhythm - GI/Abdominal Exam GI & Abdominal Exam: Soft, Tenderness (Diffuse to deep palpation, greater in the LLQ), Normal Bowel Sounds. absent: Distended - Extremities Exam Extremities Exam: absent: Joint Swelling, Tenderness - Neurological Exam Neurological Exam: Alert, Awake, Oriented x3 - Psychiatric Exam Psychiatric exam: Normal Affect, Normal Mood - Skin Skin Exam: Dry, Intact, Normal Color, Warm Assessment and Plan - Assessment and Plan (Free Text) Assessment: Cardiac Arrest PEA on 07/20/17 * Status post-procedure; patient went into PEA on 07/20 ROSC returned; intubated 07/20/17-[id number] * Chest xray (07/22/17): moderate left pleural effusion with consolidative opacification in the left mid to lower lung zone. trace right pleural effusion with adjacent right basilar consolidation. cardiomeglay. calcification at the aortic knob Chest pain atypical * Cardio Dr. Chau does not feel that this is cardiac related * PEA on 07/21 * Per cardio note: patient does not appear to have CHF, will trend troponin * ECHO 07/13/17: LV EF is WNL, moderate concentric LVH, Grade I abnormal relaxation pattern ERCP Guidewire Perforation of Liver Capsule * s/p ERCP with removal of stent and sphincterotomy with Dr. Damian 07/13/17 * Chest CT 07/13/17 shows pneumobilia as well as possible free air beneath Right Hemidiaphragm within Paraesophagel soft tissues. * CT Abdomen/Pelvis 07/13/17 shows gas fluid and stranding in the subcapsular and extracapsular area around Left Lobe Liver. * CT Abdomen/Pelvis on 07/14/17 showed gas and fluid around left lobe liver and along inferior vena cava that is unchanged, no evidence of extravasation of oral contrast from stomach or duodenem. * CT Abdomen/Pelvis w/o contrast 07/19/17: Fluid re-identified, which appears similar in size and likely subcapsular in location. No gas currently evident with in the collection, Small pneumobila. * GI Dr. Damian spoke with IR 07/15/17 and area is NOT amenable to percutaneous drainage. * Surgery Dr. Austen consulted: no surgical intervention at this time Enterococcus faecium Bacteremia * Infectious Disease (Dr. Langford) * Tigecycline 50 mg IV Q12H after 100 mg initial infusion (07/17/17) * Repeat BC negative, D/C abx? Atrial Fibrillation/Elevated Troponin * Cardiology (Dr. Chau) * Amiodarone 900mg IV Q 24H * The Atrial Fibrillation is likely secondary to the increased sympathetic tone from the Sepsis and the elevated Troponin likely secondary to the Atrial Fibrillation Bilateral HCAP * CT Abdomen/Pelvis 07/13/17 showed bibasilar lingular and right middle lobe mild nonspecific infiltrates consistent with atelectasis/pneumonia * Tigecycline * CT Abdomen/Pelvis w/o contrast 07/19/17: Moderate bilateral pleural effusions and associated consolidations. Small abomdinla ascites. Small pelvic free fluid. * Chest xray (07/22/17): moderate left pleural effusion with consolidative opacification in the left mid to lower lung zone. trace right pleural effusion with adjacent right basilar consolidation. * Urine Legionella Ag is negative * Urine Strep pneumoniae Ag: non detected * Mycoplasma IgM is 81 (negative) Ig.07 * Influenza A/B is negative * Urine Culture is negative CKD Stage III * Nephrology Dr. Oconnell * Likely secondary to the Sepsis * Lasix 60 mg IV 2x/day * HD MWF Hx CVA * CT Head 07/13/17 was negative * Plavix 75 mg PO 1x/day * ASA 81 PO QD Alzheimer's disease * Aricept 10 mg PO daily. Anemia * Ferrous Sulfate 325 mg PO daily [facility] * Lopid 600 mg PO BID * Crestor 10 mg PO HS HTN * Toprol XL 100 PO QD Diabetes * ISS Q6H * Accuchecks Q6H Hypothyroidism * Levothyroxine 50 mcg PO daily Overactive bladder * Festerodine 8 mg PO 1x/day Hx of glaucoma * Started Xalatan ggt in bilateral eyes. GERD * Protonix 40 mg IV daily Prophylactic measure * Protonix 40 mg daily * SCDs * Ascorbic Acid 250 mg PO daily * Florastor 250 mg PO 2x/day * Zofran 4 mg IV Q6H PRN N/V <Rafael Vaughn - Last Filed: 07/26/17 13:56> Objective - Vital Signs/Intake and Output Vital Signs (last 24 hours): Temp Pulse Resp BP Pulse Ox 98.5 F 92 H 21 115/57 L 100 07/26/17 04:00 07/26/17 12:18 07/26/17 12:18 07/26/17 12:18 07/26/17 12:18 Intake and Output: 07/26/17 07/26/17 06:59 18:59 Intake Total 440 120 Output Total 465 Balance -25 120 - Medications Medications: Current Medications Albuterol Sulfate (Albuterol 0.042% Inhal Ruby (1.25mg/3ml) Ud) 1.25 mg INH RQ6 PRN PRN Reason: Wheezing Ascorbic Acid (Vitamin C 250 Mg Tab) 250 mg PO DAILY [facility] Last Admin: 07/26/17 09:27 Dose: 250 mg Aspirin (Aspirin Chewable) 81 mg PO DAILY [facility] Benzocaine/Menthol (Cepacol Sore Throat) 1 love MT Q2 PRN PRN Reason: Sore Throat Last Admin: 07/25/17 09:12 Dose: 1 love Calcium Acetate (Phoslo) 1,334 mg PO TID [facility] Last Admin: 07/26/17 09:15 Dose: 1,334 mg Clopidogrel Bisulfate (Plavix) 75 mg PO DAILY [facility] Last Admin: 07/26/17 09:14 Dose: 75 mg Cyproheptadine HCl (Periactin) 4 mg PO BID [facility] Last Admin: 07/26/17 09:27 Dose: 4 mg Donepezil HCl (Aricept) 10 mg PO HS [facility] Last Admin: 07/25/17 21:05 Dose: 10 mg Epoetin Romel (Procrit) 10,000 unit IV MWF [facility] Ferrous Sulfate (Feosol) 325 mg PO Q12H [facility] Last Admin: 07/26/17 05:59 Dose: 325 mg Heparin Sodium (Porcine) (Heparin) 5,000 units SC Q12 [facility] Last Admin: 07/26/17 09:15 Dose: 5,000 units Home Med (Fesoterodine Fumarate [Toviaz]) 8 mg PO DAILY [facility] Hydromorphone HCl (Dilaudid) 0.5 mg IVP Q4 PRN PRN Reason: Pain, severe (8-10) Last Admin: 07/26/17 12:18 Dose: 0.5 mg Tigecycline 50 mg/ Dextrose 100 mls @ 100 mls/hr IVPB Q12H [facility] Last Admin: 07/26/17 12:49 Dose: 100 mls/hr Metronidazole 250 mg/ (Miscellaneous) 50 mls @ 100 mls/hr IVPB Q8 [facility] Last Admin: 07/26/17 05:58 Dose: 100 mls/hr Insulin Human Regular (Novolin R) 0 unit SC ACHS [facility] PRN Reason: Protocol Last Admin: 07/26/17 12:42 Dose: 3 unit Latanoprost (Xalatan Opht) 0 ml OU HS [facility] Last Admin: 07/25/17 21:06 Dose: 2.5 ml Levothyroxine Sodium (Synthroid) 50 mcg PO DAILY@0630 [facility] Last Admin: 07/26/17 05:59 Dose: 50 mcg Metoprolol Succinate (Toprol Xl) 100 mg PO DAILY [facility] Last Admin: 07/14/17 13:41 Dose: 100 mg Ondansetron HCl (Zofran Inj) 4 mg IVP Q6 PRN PRN Reason: Nausea/Vomiting Pantoprazole Sodium (Protonix Ec Tab) 40 mg PO DAILY [facility] Last Admin: 07/26/17 09:16 Dose: 40 mg Polyethylene Glycol (Miralax) 17 gm PO DAILY [facility] Rosuvastatin Calcium (Crestor) 10 mg PO HS [facility] Last Admin: 07/25/17 21:05 Dose: 10 mg Saccharomyces Boulardii (Florastor) 250 mg PO BID [facility] Last Admin: 07/26/17 09:14 Dose: 250 mg - Labs Labs: 07/25/17 06:23 07/25/17 06:25 PT 14.3 SECONDS (9.7-12.2) H 07/16/17 04:00 INR 1.3 07/16/17 04:00 APTT 29 SECONDS (21-34) 07/13/17 20:04 Attending/Attestation - Attestation I have personally seen and examined this patient.: Yes I have fully participated in the care of the patient.: Yes I have reviewed all pertinent clinical information, including history, physical exam and plan: Yes Notes (Text): Medical Attending: Patient was seen and examined by me. Agree with the above note by the resident This is my first time seeing patient. I reviewed some of the previous notes and also discussed with the staff. The patient has had a very complicated last week. His overall prognosis is still very guarded. He went into PEA arrest and respiratory failure on 07/20/17 and was intubated for two days before he was extubated on 07/22. He intinally came on 07/13 and during an ERCP had complications. Since then he has had sepsis , HCAP, - for which he has been on an extensive amount of IV abx. Recent cultures on 07/18 showed enterococcus facium and he remains on Tigycline. He still has a WBC count, currently afebrile. A CT scan done on 07/25 did not show any acute abdominal findings at this time. There are small to moderate pleural effusions. 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 When I saw him today he was able to open his eyes and look at me however he did not talk or respond to me. Overall situation remains poor at this time Rafael Vaughn
--- NOTE | 2017-07-26 13:10 | CP.PCM.PN ---
<Soumya Malin - Last Filed: 07/26/17 13:13> Subjective - Date & Time of Evaluation Date of Evaluation: 07/26/17 Time of Evaluation: 05:00 - Subjective Subjective: Gastroenterology Fellow PGY4 Progress Note Patient remains stable overnight. Notes minimal improvement in abdominal pain. Tolerated clear liquid diet. One bowel movement overnight. A 12-point review of systems not completed due to advanced Dementia. Objective - Vital Signs/Intake and Output Vital Signs (last 24 hours): Temp Pulse Resp BP Pulse Ox 98.5 F 92 H 21 115/57 L 100 07/26/17 04:00 07/26/17 12:18 07/26/17 12:18 07/26/17 12:18 07/26/17 12:18 Intake and Output: 07/26/17 07/26/17 06:59 18:59 Intake Total 440 120 Output Total 465 Balance -25 120 - Medications Medications: Current Medications Albuterol Sulfate (Albuterol 0.042% Inhal Ruby (1.25mg/3ml) Ud) 1.25 mg INH RQ6 PRN PRN Reason: Wheezing Ascorbic Acid (Vitamin C 250 Mg Tab) 250 mg PO DAILY [facility] Last Admin: 07/26/17 09:27 Dose: 250 mg Aspirin (Aspirin Chewable) 81 mg PO DAILY [facility] Benzocaine/Menthol (Cepacol Sore Throat) 1 love MT Q2 PRN PRN Reason: Sore Throat Last Admin: 07/25/17 09:12 Dose: 1 love Calcium Acetate (Phoslo) 1,334 mg PO TID [facility] Last Admin: 07/26/17 09:15 Dose: 1,334 mg Clopidogrel Bisulfate (Plavix) 75 mg PO DAILY [facility] Last Admin: 07/26/17 09:14 Dose: 75 mg Cyproheptadine HCl (Periactin) 4 mg PO BID [facility] Last Admin: 07/26/17 09:27 Dose: 4 mg Donepezil HCl (Aricept) 10 mg PO HS [facility] Last Admin: 07/25/17 21:05 Dose: 10 mg Epoetin Romel (Procrit) 10,000 unit IV MWF [facility] Ferrous Sulfate (Feosol) 325 mg PO Q12H [facility] Last Admin: 07/26/17 05:59 Dose: 325 mg Heparin Sodium (Porcine) (Heparin) 5,000 units SC Q12 [facility] Last Admin: 11/12/17 09:15 Dose: 5,000 units Home Med (Fesoterodine Fumarate [Toviaz]) 8 mg PO DAILY [facility] Hydromorphone HCl (Dilaudid) 0.5 mg IVP Q4 PRN PRN Reason: Pain, severe (8-10) Last Admin: 07/26/17 12:18 Dose: 0.5 mg Tigecycline 50 mg/ Dextrose 100 mls @ 100 mls/hr IVPB Q12H [facility] Last Admin: 07/26/17 12:49 Dose: 100 mls/hr Metronidazole 250 mg/ (Miscellaneous) 50 mls @ 100 mls/hr IVPB Q8 [facility] Last Admin: 07/26/17 05:58 Dose: 100 mls/hr Insulin Human Regular (Novolin R) 0 unit SC ACHS [facility] PRN Reason: Protocol Last Admin: 07/26/17 12:42 Dose: 3 unit Latanoprost (Xalatan Opht) 0 ml OU HS [facility] Last Admin: 07/25/17 21:06 Dose: 2.5 ml Levothyroxine Sodium (Synthroid) 50 mcg PO DAILY@0630 [facility] Last Admin: 07/26/17 05:59 Dose: 50 mcg Metoprolol Succinate (Toprol Xl) 100 mg PO DAILY [facility] Last Admin: 07/14/17 13:41 Dose: 100 mg Ondansetron HCl (Zofran Inj) 4 mg IVP Q6 PRN PRN Reason: Nausea/Vomiting Pantoprazole Sodium (Protonix Ec Tab) 40 mg PO DAILY [facility] Last Admin: 07/26/17 09:16 Dose: 40 mg Rosuvastatin Calcium (Crestor) 10 mg PO HS [facility] Last Admin: 07/25/17 21:05 Dose: 10 mg Saccharomyces Boulardii (Florastor) 250 mg PO BID [facility] Last Admin: 07/26/17 09:14 Dose: 250 mg - Labs Labs: 07/25/17 06:23 07/25/17 06:25 PT 14.3 SECONDS (9.7-12.2) H 07/16/17 04:00 INR 1.3 07/16/17 04:00 APTT 29 SECONDS (21-34) 07/13/17 20:04 - Constitutional Appears: No Acute Distress, Confused, Chronically Ill - Head Exam Head Exam: ATRAUMATIC, NORMOCEPHALIC - Eye Exam Eye Exam: Normal appearance - ENT Exam ENT Exam: Mucous Membranes Moist - Respiratory Exam Respiratory Exam: Clear to Ausculation Bilateral, NORMAL BREATHING PATTERN. absent: Rales, Rhonchi, Wheezes, Respiratory Distress - Cardiovascular Exam Cardiovascular Exam: REGULAR RHYTHM, +S1, +S2 - GI/Abdominal Exam GI & Abdominal Exam: Soft, Normal Bowel Sounds. absent: Guarding, Rigid, Tenderness, Rebound - Extremities Exam Extremities Exam: absent: Joint Swelling, Pedal Edema - Neurological Exam Neurological Exam: Alert, Awake, Oriented x3 - Psychiatric Exam Psychiatric exam: Normal Affect, Normal Mood - Skin Skin Exam: Dry, Intact, Normal Color, Warm Assessment and Plan - Assessment and Plan (Free Text) Assessment: 82 year old male with history of Diabetes, Hyperlipidemia, Hypertension, Hypothyroidism, CKD, Alzheimer's Dementia, CVA on Plavix, and cholangitis s/p ERCP with CBD stent (04/2017). Active treatment of renal failure on HD, day 1 ( 07/22) post extubation for hypoxic VDRF s/p PEA arrest with ROSC (07/20), HCAP, E. faecium Bacteremia with blood culture negative at 48 hours, and ERCP guidewire pneumoperitoneum with hepatic subcapsular/extracapsular fluid collection with conservative management. Plan: >full liquid diet, advance as tolerated >continue conservative management of hepatic subcapsular fluid collection >07/[address] A/P- unchanged fluid collection >repeat CT ordered by ICU >ID managing- broad spectrum antibiotics >nephrology managing- 07/20 and 07/22 and 07/24 received dialysis >will follow clinical course >continue miralax, advance diet as tolerated > CT Abd/Pelvis 07/25/17: no reports of fluid collection, moderate amount of stool noted D/W Dr. Livingston <Miki GENTILE,[facility] - Last Filed: 07/26/17 16:22> Objective - Vital Signs/Intake and Output Vital Signs (last 24 hours): Temp Pulse Resp BP Pulse Ox 99 F 97 H 17 122/47 L 100 07/26/17 15:39 07/26/17 15:18 07/26/17 15:18 07/26/17 15:18 07/26/17 15:18 Intake and Output: 07/26/17 07/26/17 06:59 18:59 Intake Total 440 340 Output Total 465 Balance -25 340 - Medications Medications: Current Medications Albuterol Sulfate (Albuterol 0.042% Inhal Ruby (1.25mg/3ml) Ud) 1.25 mg INH RQ6 PRN PRN Reason: Wheezing Ascorbic Acid (Vitamin C 250 Mg Tab) 250 mg PO DAILY [facility] Last Admin: 07/26/17 09:27 Dose: 250 mg Aspirin (Aspirin Chewable) 81 mg PO DAILY [facility] Benzocaine/Menthol (Cepacol Sore Throat) 1 love MT Q2 PRN PRN Reason: Sore Throat Last Admin: 07/25/17 09:12 Dose: 1 love Calcium Acetate (Phoslo) 1,334 mg PO TID [facility] Last Admin: 07/26/17 14:00 Dose: 1,334 mg Clopidogrel Bisulfate (Plavix) 75 mg PO DAILY [facility] Last Admin: 07/26/17 09:14 Dose: 75 mg Cyproheptadine HCl (Periactin) 4 mg PO BID [facility] Last Admin: 07/26/17 09:27 Dose: 4 mg Donepezil HCl (Aricept) 10 mg PO HS [facility] Last Admin: 07/25/17 21:05 Dose: 10 mg Epoetin Romel (Procrit) 10,000 unit IV MWF [facility] Ferrous Sulfate (Feosol) 325 mg PO Q12H [facility] Last Admin: 07/26/17 05:59 Dose: 325 mg Heparin Sodium (Porcine) (Heparin) 5,000 units SC Q12 [facility] Last Admin: 07/26/17 09:15 Dose: 5,000 units Home Med (Fesoterodine Fumarate [Toviaz]) 8 mg PO DAILY [facility] Hydromorphone HCl (Dilaudid) 0.5 mg IVP Q4 PRN PRN Reason: Pain, severe (8-10) Last Admin: 07/26/17 12:18 Dose: 0.5 mg Tigecycline 50 mg/ Dextrose 100 mls @ 100 mls/hr IVPB Q12H [facility] Last Admin: 07/26/17 12:49 Dose: 100 mls/hr Metronidazole 250 mg/ (Miscellaneous) 50 mls @ 100 mls/hr IVPB Q8 [facility] Last Admin: 07/26/17 13:40 Dose: 100 mls/hr Insulin Human Regular (Novolin R) 0 unit SC ACHS [facility] PRN Reason: Protocol Last Admin: 07/26/17 12:42 Dose: 3 unit Latanoprost (Xalatan Opht) 0 ml OU HS [facility] Last Admin: 07/25/17 21:06 Dose: 2.5 ml Levothyroxine Sodium (Synthroid) 50 mcg PO DAILY@0630 [facility] Last Admin: 07/26/17 05:59 Dose: 50 mcg Metoprolol Succinate (Toprol Xl) 100 mg PO DAILY [facility] Last Admin: 07/14/17 13:41 Dose: 100 mg Ondansetron HCl (Zofran Inj) 4 mg IVP Q6 PRN PRN Reason: Nausea/Vomiting Pantoprazole Sodium (Protonix Ec Tab) 40 mg PO DAILY [facility] Last Admin: 07/26/17 09:16 Dose: 40 mg Polyethylene Glycol (Miralax) 17 gm PO DAILY [facility] Last Admin: 07/26/17 15:32 Dose: 17 gm Rosuvastatin Calcium (Crestor) 10 mg PO HS [facility] Last Admin: 07/25/17 21:05 Dose: 10 mg Saccharomyces Boulardii (Florastor) 250 mg PO BID [facility] Last Admin: 07/26/17 09:14 Dose: 250 mg - Labs Labs: 07/25/17 06:23 07/25/17 06:25 PT 14.3 SECONDS (9.7-12.2) H 07/16/17 04:00 INR 1.3 07/16/17 04:00 APTT 29 SECONDS (21-34) 07/13/17 20:04 Attending/Attestation - Attestation I have personally seen and examined this patient.: Yes I have fully participated in the care of the patient.: Yes I have reviewed all pertinent clinical information, including history, physical exam and plan: Yes Notes (Text): 07/26/17 16:21 Patient was seen with GI fellow in MICU this am. This is a 82 year old male with h/o DM, HTN, HLD, Hypothyroidism, Dementia, CKD, h/o cholangitis s/p ERCP with stent, subsequent ERCP complicated by guidewire perforation, bacteremia/ sepsis, renal failure, dialysis, respiratory failure requiring mechanical ventilation now off vent and pressors. This morning was little weak. Tolerating liquid diet and passing flatus and small bowel movements. Repeat CT from yesterday with no change. Continue antibiotics and rest of plan as per MICU.
[2017-07-26] MEDS: POLYETHYLENE GLYCOL 3350 17 GM/Dose PACKET PO SCH (15:32)
--- NOTE | 2017-07-26 16:27 | CP.PCM.PN ---
Subjective - Date & Time of Evaluation Date of Evaluation: 07/26/17 Time of Evaluation: 08:00 - Subjective Subjective: slow progress afebrile less abd pain iv rx in progress Objective - Vital Signs/Intake and Output Vital Signs (last 24 hours): Temp Pulse Resp BP Pulse Ox 99 F 97 H 17 122/47 L 100 07/26/17 15:39 07/26/17 15:18 07/26/17 15:18 07/26/17 15:18 07/26/17 15:18 Intake and Output: 07/26/17 07/26/17 06:59 18:59 Intake Total 440 340 Output Total 465 Balance -25 340 - Medications Medications: Current Medications Albuterol Sulfate (Albuterol 0.042% Inhal Ruby (1.25mg/3ml) Ud) 1.25 mg INH RQ6 PRN PRN Reason: Wheezing Ascorbic Acid (Vitamin C 250 Mg Tab) 250 mg PO DAILY [facility] Last Admin: 07/26/17 09:27 Dose: 250 mg Aspirin (Aspirin Chewable) 81 mg PO DAILY [facility] Benzocaine/Menthol (Cepacol Sore Throat) 1 love MT Q2 PRN PRN Reason: Sore Throat Last Admin: 07/25/17 09:12 Dose: 1 love Calcium Acetate (Phoslo) 1,334 mg PO TID [facility] Last Admin: 07/26/17 14:00 Dose: 1,334 mg Clopidogrel Bisulfate (Plavix) 75 mg PO DAILY [facility] Last Admin: 07/26/17 09:14 Dose: 75 mg Cyproheptadine HCl (Periactin) 4 mg PO BID [facility] Last Admin: 07/26/17 09:27 Dose: 4 mg Donepezil HCl (Aricept) 10 mg PO HS [facility] Last Admin: 07/25/17 21:05 Dose: 10 mg Epoetin Romel (Procrit) 10,000 unit IV MWF [facility] Ferrous Sulfate (Feosol) 325 mg PO Q12H [facility] Last Admin: 07/26/17 05:59 Dose: 325 mg Heparin Sodium (Porcine) (Heparin) 5,000 units SC Q12 [facility] Last Admin: 07/26/17 09:15 Dose: 5,000 units Home Med (Fesoterodine Fumarate [Toviaz]) 8 mg PO DAILY [facility] Hydromorphone HCl (Dilaudid) 0.5 mg IVP Q4 PRN PRN Reason: Pain, severe (8-10) Last Admin: 07/26/17 12:18 Dose: 0.5 mg Tigecycline 50 mg/ Dextrose 100 mls @ 100 mls/hr IVPB Q12H [facility] Last Admin: 07/26/17 12:49 Dose: 100 mls/hr Metronidazole 250 mg/ (Miscellaneous) 50 mls @ 100 mls/hr IVPB Q8 [facility] Last Admin: 07/26/17 13:40 Dose: 100 mls/hr Insulin Human Regular (Novolin R) 0 unit SC ACHS [facility] PRN Reason: Protocol Last Admin: 07/26/17 12:42 Dose: 3 unit Latanoprost (Xalatan Opht) 0 ml OU HS [facility] Last Admin: 07/25/17 21:06 Dose: 2.5 ml Levothyroxine Sodium (Synthroid) 50 mcg PO DAILY@0630 [facility] Last Admin: 07/26/17 05:59 Dose: 50 mcg Metoprolol Succinate (Toprol Xl) 100 mg PO DAILY [facility] Last Admin: 07/14/17 13:41 Dose: 100 mg Ondansetron HCl (Zofran Inj) 4 mg IVP Q6 PRN PRN Reason: Nausea/Vomiting Pantoprazole Sodium (Protonix Ec Tab) 40 mg PO DAILY [facility] Last Admin: 07/26/17 09:16 Dose: 40 mg Polyethylene Glycol (Miralax) 17 gm PO DAILY [facility] Last Admin: 07/26/17 15:32 Dose: 17 gm Rosuvastatin Calcium (Crestor) 10 mg PO HS [facility] Last Admin: 07/25/17 21:05 Dose: 10 mg Saccharomyces Boulardii (Florastor) 250 mg PO BID [facility] Last Admin: 07/26/17 09:14 Dose: 250 mg - Labs Labs: 07/25/17 06:23 07/25/17 06:25 PT 14.3 SECONDS (9.7-12.2) H 07/16/17 04:00 INR 1.3 07/16/17 04:00 APTT 29 SECONDS (21-34) 07/13/17 20:04 - Constitutional Appears: Non-toxic, Confused, Chronically Ill - Head Exam Head Exam: NORMOCEPHALIC - Eye Exam Eye Exam: PERRL - ENT Exam ENT Exam: Mucous Membranes Dry - Neck Exam Neck Exam: absent: Lymphadenopathy - Respiratory Exam Respiratory Exam: Decreased Breath Sounds - Cardiovascular Exam Cardiovascular Exam: REGULAR RHYTHM - GI/Abdominal Exam GI & Abdominal Exam: Distended, Soft - Rectal Exam Rectal Exam: Deferred - Extremities Exam Extremities Exam: absent: Pedal Edema - Back Exam Back Exam: NORMAL INSPECTION. absent: CVA tenderness (L), CVA tenderness (R) - Neurological Exam Neurological Exam: Altered, Awake - Psychiatric Exam Psychiatric exam: Depressed - Skin Skin Exam: Dry Assessment and Plan (1) JAY JAY (acute kidney injury) Status: Acute (2) CVA, old, cognitive deficits Status: Acute (3) Chronic kidney disease, stage III (moderate) Status: Acute (4) Headache Status: Acute (5) Hx of gastroesophageal reflux (GERD) Status: Acute
[2017-07-26] MEDS: Latanoprost 2.5 ml Opht Soln OU SCH (21:14)
[2017-07-27] MEDS: (Novolin R) Insulin Human Regular 100 units/ml vial SC SCH ×5 (00:07→22:57)
[2017-07-27] MEDS: Tigecycline 50 MG in Dextrose 5% In Water 100 ML IVPB SCH ×2 (00:23→13:53)
[2017-07-27] MEDS: HYDROmorphone 0.5 mg/0.5 ml ISec IVP PRN ×3 (03:08→21:15)
[2017-07-27] MEDS: metroNIDAZOLE IV 500 mg/100 ml 250 MG in Premixed IV 1 EA IVPB SCH ×3 (04:59→21:15)
[2017-07-27] MEDS: Levothyroxine 50 MCG TAB PO SCH (06:43)
[2017-07-27] MEDS: Albuterol 0.042% Inhal Sol (1.25 mg/3 mL) UD INH PRN (07:10)
--- NOTE | 2017-07-27 08:05 | CP.PCM.PN ---
<Dianne Salinas - Last Filed: 07/27/17 11:46> Subjective - Date & Time of Evaluation Date of Evaluation: 07/27/17 Time of Evaluation: 08:02 - Subjective Subjective: Gastroenterology Fellow/PGY5 Progress Note Patient notes mild abdominal pain. Tolerated full liquid diet. One bowel movement overnight. A 12-point review of systems not completed due to advanced Dementia. Objective - Vital Signs/Intake and Output Vital Signs (last 24 hours): Temp Pulse Resp BP Pulse Ox 98 F 86 13 134/59 L 100 07/27/17 04:00 07/27/17 04:00 07/27/17 04:00 07/27/17 03:18 07/27/17 04:00 Intake and Output: 07/27/17 07/27/17 06:59 18:59 Intake Total 440 Output Total 450 Balance -10 - Medications Medications: Current Medications Albuterol Sulfate (Albuterol 0.042% Inhal Ruby (1.25mg/3ml) Ud) 1.25 mg INH RQ6 PRN PRN Reason: Wheezing Last Admin: 07/27/17 07:10 Dose: 1.25 mg Ascorbic Acid (Vitamin C 250 Mg Tab) 250 mg PO DAILY [facility] Last Admin: 07/26/17 09:27 Dose: 250 mg Aspirin (Aspirin Chewable) 81 mg PO DAILY [facility] Benzocaine/Menthol (Cepacol Sore Throat) 1 love MT Q2 PRN PRN Reason: Sore Throat Last Admin: 07/25/17 09:12 Dose: 1 love Calcium Acetate (Phoslo) 1,334 mg PO TID [facility] Last Admin: 07/26/17 17:34 Dose: 1,334 mg Clopidogrel Bisulfate (Plavix) 75 mg PO DAILY [facility] Last Admin: 07/26/17 09:14 Dose: 75 mg Cyproheptadine HCl (Periactin) 4 mg PO BID [facility] Last Admin: 07/26/17 17:34 Dose: 4 mg Donepezil HCl (Aricept) 10 mg PO HS [facility] Last Admin: 07/26/17 21:13 Dose: 10 mg Epoetin Romel (Procrit) 10,000 unit IV MWF [facility] Ferrous Sulfate (Feosol) 325 mg PO Q12H [facility] Last Admin: 07/27/17 06:43 Dose: 325 mg Heparin Sodium (Porcine) (Heparin) 5,000 units SC Q12 [facility] Last Admin: 07/26/17 21:13 Dose: 5,000 units Home Med (Fesoterodine Fumarate [Toviaz]) 8 mg PO DAILY [facility] Hydromorphone HCl (Dilaudid) 0.5 mg IVP Q4 PRN PRN Reason: Pain, severe (8-10) Last Admin: 07/27/17 03:08 Dose: 0.5 mg Tigecycline 50 mg/ Dextrose 100 mls @ 100 mls/hr IVPB Q12H [facility] Last Admin: 07/27/17 00:23 Dose: 100 mls/hr Metronidazole 250 mg/ (Miscellaneous) 50 mls @ 100 mls/hr IVPB Q8 [facility] Last Admin: 07/27/17 04:59 Dose: 100 mls/hr Insulin Human Regular (Novolin R) 0 unit SC ACHS [facility] PRN Reason: Protocol Last Admin: 07/27/17 00:07 Dose: Not Given Latanoprost (Xalatan Opht) 0 ml OU HS [facility] Last Admin: 07/26/17 21:14 Dose: 2.5 ml Levothyroxine Sodium (Synthroid) 50 mcg PO DAILY@0630 [facility] Last Admin: 07/27/17 06:43 Dose: 50 mcg Metoprolol Succinate (Toprol Xl) 100 mg PO DAILY [facility] Last Admin: 07/14/17 13:41 Dose: 100 mg Ondansetron HCl (Zofran Inj) 4 mg IVP Q6 PRN PRN Reason: Nausea/Vomiting Pantoprazole Sodium (Protonix Ec Tab) 40 mg PO DAILY [facility] Last Admin: 07/26/17 09:16 Dose: 40 mg Polyethylene Glycol (Miralax) 17 gm PO DAILY [facility] Last Admin: 07/26/17 15:32 Dose: 17 gm Rosuvastatin Calcium (Crestor) 10 mg PO HS [facility] Last Admin: 07/26/17 21:13 Dose: 10 mg Saccharomyces Boulardii (Florastor) 250 mg PO BID [facility] Last Admin: 07/26/17 17:38 Dose: 250 mg - Labs Labs: 07/25/17 06:23 07/25/17 06:25 PT 14.3 SECONDS (9.7-12.2) H 07/16/17 04:00 INR 1.3 07/16/17 04:00 APTT 29 SECONDS (21-34) 07/13/17 20:04 - Constitutional Appears: No Acute Distress, Chronically Ill - Head Exam Head Exam: ATRAUMATIC, NORMOCEPHALIC - Eye Exam Eye Exam: EOMI, PERRL Pupil Exam: PERRL. absent: Miosis, Mydriatic - ENT Exam ENT Exam: Mucous Membranes Moist, Normal Oropharynx - Neck Exam Neck Exam: Full ROM, Normal Inspection - Respiratory Exam Respiratory Exam: Clear to Ausculation Bilateral. absent: Rales, Rhonchi, Wheezes - Cardiovascular Exam Cardiovascular Exam: RRR, +S1, +S2. absent: Gallop, Rubs - GI/Abdominal Exam GI & Abdominal Exam: Distended, Soft, Tenderness, Normal Bowel Sounds. absent: Firm, Guarding, Rigid, Organomegaly, Rebound Additional comments: mild distension, epigastric discomfort to palpation - Extremities Exam Extremities Exam: Normal Inspection. absent: Pedal Edema - Neurological Exam Neurological Exam: Alert, Awake - Psychiatric Exam Psychiatric exam: Normal Affect, Normal Mood Assessment and Plan - Assessment and Plan (Free Text) Assessment: 82 year old male with history of Diabetes, Hyperlipidemia, Hypertension, Hypothyroidism, CKD, Alzheimer's Dementia, CVA on Plavix, and cholangitis s/p ERCP with CBD stent (04/2017). Active treatment of renal failure on HD, day 6 ( 07/22) post extubation for hypoxic VDRF s/p PEA arrest with ROSC (07/20), HCAP, E. faecium Bacteremia with blood culture negative at 48 hours, and ERCP guidewire pneumoperitoneum with hepatic subcapsular/extracapsular fluid collection with conservative management. Plan: >continue Miralax daily >full liquid diet, advance to soft diet as tolerated >07/[address] A/P- no fluid collection >ID managing- broad spectrum antibiotics >nephrology managing- 07/20 and 07/22 and 07/24 received dialysis >will follow clinical course <Quincy Livingston MD - Last Filed: 07/27/17 11:50> Objective - Vital Signs/Intake and Output Vital Signs (last 24 hours): Temp Pulse Resp BP Pulse Ox 98 F 91 H 21 106/51 L 98 07/27/17 09:35 07/27/17 11:35 07/27/17 09:35 07/27/17 11:35 07/27/17 09:35 Intake and Output: 07/27/17 07/27/17 06:59 18:59 Intake Total 440 120 Output Total 450 Balance -10 120 - Medications Medications: Current Medications Albuterol Sulfate (Albuterol 0.042% Inhal Ruby (1.25mg/3ml) Ud) 1.25 mg INH RQ6 PRN PRN Reason: Wheezing Last Admin: 07/27/17 07:10 Dose: 1.25 mg Ascorbic Acid (Vitamin C 250 Mg Tab) 250 mg PO DAILY [facility] Last Admin: 07/26/17 09:27 Dose: 250 mg Aspirin (Aspirin Chewable) 81 mg PO DAILY [facility] Benzocaine/Menthol (Cepacol Sore Throat) 1 love MT Q2 PRN PRN Reason: Sore Throat Last Admin: 07/25/17 09:12 Dose: 1 love Calcium Acetate (Phoslo) 1,334 mg PO TID [facility] Last Admin: 07/26/17 17:34 Dose: 1,334 mg Clopidogrel Bisulfate (Plavix) 75 mg PO DAILY [facility] Last Admin: 07/26/17 09:14 Dose: 75 mg Cyproheptadine HCl (Periactin) 4 mg PO BID [facility] Last Admin: 07/26/17 17:34 Dose: 4 mg Donepezil HCl (Aricept) 10 mg PO HS [facility] Last Admin: 07/26/17 21:13 Dose: 10 mg Epoetin Romel (Procrit) 10,000 unit IV MWF [facility] Last Admin: 07/27/17 11:18 Dose: 10,000 unit Ferrous Sulfate (Feosol) 325 mg PO Q12H [facility] Last Admin: 07/27/17 06:43 Dose: 325 mg Home Med (Fesoterodine Fumarate [Toviaz]) 8 mg PO DAILY [facility] Hydromorphone HCl (Dilaudid) 0.5 mg IVP Q4 PRN PRN Reason: Pain, severe (8-10) Last Admin: 07/27/17 03:08 Dose: 0.5 mg Tigecycline 50 mg/ Dextrose 100 mls @ 100 mls/hr IVPB Q12H [facility] Last Admin: 07/27/17 00:23 Dose: 100 mls/hr Metronidazole 250 mg/ (Miscellaneous) 50 mls @ 100 mls/hr IVPB Q8 [facility] Last Admin: 07/27/17 04:59 Dose: 100 mls/hr Magnesium Sulfate/Dextrose (Magnesium Sulfate 1 Gm/100 Ml D5w) 1 gm in 100 mls @ 300 mls/hr IVPB Q30M [facility] Stop: 07/27/17 12:04 Insulin Human Regular (Novolin R) 0 unit SC ACHS [facility] PRN Reason: Protocol Last Admin: 07/27/17 07:40 Dose: Not Given Latanoprost (Xalatan Opht) 0 ml OU HS [facility] Last Admin: 07/26/17 21:14 Dose: 2.5 ml Levothyroxine Sodium (Synthroid) 50 mcg PO DAILY@0630 [facility] Last Admin: 07/27/17 06:43 Dose: 50 mcg Metoprolol Succinate (Toprol Xl) 100 mg PO DAILY [facility] Last Admin: 07/14/17 13:41 Dose: 100 mg Ondansetron HCl (Zofran Inj) 4 mg IVP Q6 PRN PRN Reason: Nausea/Vomiting Pantoprazole Sodium (Protonix Ec Tab) 40 mg PO DAILY [facility] Last Admin: 07/26/17 09:16 Dose: 40 mg Polyethylene Glycol (Miralax) 17 gm PO DAILY [facility] Last Admin: 07/26/17 15:32 Dose: 17 gm Rosuvastatin Calcium (Crestor) 10 mg PO HS [facility] Last Admin: 07/26/17 21:13 Dose: 10 mg Saccharomyces Boulardii (Florastor) 250 mg PO BID [facility] Last Admin: 07/26/17 17:38 Dose: 250 mg - Labs Labs: 07/27/17 09:55 07/27/17 09:55 PT 14.3 SECONDS (9.7-12.2) H 07/16/17 04:00 INR 1.3 07/16/17 04:00 APTT 29 SECONDS (21-34) 07/13/17 20:04 Attending/Attestation - Attestation I have personally seen and examined this patient.: Yes I have fully participated in the care of the patient.: Yes I have reviewed all pertinent clinical information, including history, physical exam and plan: Yes Notes (Text): 07/27/17 11:50 Patient was seen with GI fellow in MICU this am. This is a 82 year old male with h/o DM, HTN, HLD, Hypothyroidism, Dementia, CKD, h/o cholangitis s/p ERCP with stent, subsequent ERCP complicated by guidewire perforation, bacteremia/ sepsis, renal failure, dialysis, respiratory failure requiring mechanical ventilation now off vent and pressors. This morning was little weak. Tolerating liquid diet and passing flatus and small bowel movements. Advance diet as tolerated. discussed with amphibian crewmember. Repeat CT with no change. Continue antibiotics and rest of plan as per MICU.
[2017-07-27 09:59] LABS: BASO # 0.2 K/uL (0.0-0.2); BASO % 1.2 % (0.0-2.0); EOS # 0.5 K/uL (0.0-0.7); EOS % 4.1 % (0.0-4.0); HEMATOCRIT 25.9 % (35.0-51.0); LYMPH # 1.8 K/uL (1.0-4.3); LYMPH % 14.3 % (20.0-40.0); MEAN CORPUSCULAR HEMOGLOBIN 27.5 pg (27.0-31.0); MEAN CORPUSCULAR HGB CONC 33.2 g/dL (33.0-37.0); MEAN PLATELET VOLUME 9.5 fL (7.2-11.7); MONO # 1.8 K/uL (0.0-0.8); RED CELL DISTRIBUTION WIDTH 15.4 % (11.5-14.5); WHITE BLOOD COUNT 12.3 K/uL (4.8-10.8)
[2017-07-27 10:08] LABS: POTASSIUM 3.8 mmol/L (3.6-5.2)
[2017-07-27 10:10] LABS: TOTAL PROTEIN 4.4 g/dL (6.3-8.3)
[2017-07-27 10:11] LABS: CALCIUM 7.7 mg/dl (8.6-10.4); MAGNESIUM 1.5 mg/dL (1.6-2.3); PHOSPHOROUS 3.5 mg/dL (2.5-4.5)
--- NOTE | 2017-07-27 11:07 | CP.PCM.PN ---
Subjective - Date & Time of Evaluation Date of Evaluation: 07/27/17 Time of Evaluation: 11:04 - Subjective Subjective: Seen on dialysis To UF 1500 ml- tolerating well Still with moderate abdominal pains VS=829 ml creat generally lower CT scan results noted Lytes acceptable except low mag starting diet Objective - Vital Signs/Intake and Output Vital Signs (last 24 hours): Temp Pulse Resp BP Pulse Ox 98 F 94 H 21 118/57 L 98 07/27/17 09:35 07/27/17 09:35 07/27/17 09:35 07/27/17 10:50 07/27/17 09:35 Intake and Output: 07/27/17 07/27/17 06:59 18:59 Intake Total 440 120 Output Total 450 Balance -10 120 - Medications Medications: Current Medications Albuterol Sulfate (Albuterol 0.042% Inhal Ruby (1.25mg/3ml) Ud) 1.25 mg INH RQ6 PRN PRN Reason: Wheezing Last Admin: 07/27/17 07:10 Dose: 1.25 mg Ascorbic Acid (Vitamin C 250 Mg Tab) 250 mg PO DAILY [facility] Last Admin: 07/26/17 09:27 Dose: 250 mg Aspirin (Aspirin Chewable) 81 mg PO DAILY [facility] Benzocaine/Menthol (Cepacol Sore Throat) 1 love MT Q2 PRN PRN Reason: Sore Throat Last Admin: 07/25/17 09:12 Dose: 1 love Calcium Acetate (Phoslo) 1,334 mg PO TID [facility] Last Admin: 07/26/17 17:34 Dose: 1,334 mg Clopidogrel Bisulfate (Plavix) 75 mg PO DAILY [facility] Last Admin: 07/26/17 09:14 Dose: 75 mg Cyproheptadine HCl (Periactin) 4 mg PO BID [facility] Last Admin: 07/26/17 17:34 Dose: 4 mg Donepezil HCl (Aricept) 10 mg PO HS [facility] Last Admin: 07/26/17 21:13 Dose: 10 mg Epoetin Romel (Procrit) 10,000 unit IV MWF [facility] Ferrous Sulfate (Feosol) 325 mg PO Q12H [facility] Last Admin: 07/27/17 06:43 Dose: 325 mg Home Med (Fesoterodine Fumarate [Toviaz]) 8 mg PO DAILY [facility] Hydromorphone HCl (Dilaudid) 0.5 mg IVP Q4 PRN PRN Reason: Pain, severe (8-10) Last Admin: 07/27/17 03:08 Dose: 0.5 mg Tigecycline 50 mg/ Dextrose 100 mls @ 100 mls/hr IVPB Q12H [facility] Last Admin: 07/27/17 00:23 Dose: 100 mls/hr Metronidazole 250 mg/ (Miscellaneous) 50 mls @ 100 mls/hr IVPB Q8 [facility] Last Admin: 07/27/17 04:59 Dose: 100 mls/hr Insulin Human Regular (Novolin R) 0 unit SC ACHS [facility] PRN Reason: Protocol Last Admin: 07/27/17 07:40 Dose: Not Given Latanoprost (Xalatan Opht) 0 ml OU HS [facility] Last Admin: 07/26/17 21:14 Dose: 2.5 ml Levothyroxine Sodium (Synthroid) 50 mcg PO DAILY@0630 [facility] Last Admin: 07/27/17 06:43 Dose: 50 mcg Metoprolol Succinate (Toprol Xl) 100 mg PO DAILY [facility] Last Admin: 07/14/17 13:41 Dose: 100 mg Ondansetron HCl (Zofran Inj) 4 mg IVP Q6 PRN PRN Reason: Nausea/Vomiting Pantoprazole Sodium (Protonix Ec Tab) 40 mg PO DAILY [facility] Last Admin: 07/26/17 09:16 Dose: 40 mg Polyethylene Glycol (Miralax) 17 gm PO DAILY [facility] Last Admin: 07/26/17 15:32 Dose: 17 gm Rosuvastatin Calcium (Crestor) 10 mg PO HS [facility] Last Admin: 07/26/17 21:13 Dose: 10 mg Saccharomyces Boulardii (Florastor) 250 mg PO BID [facility] Last Admin: 07/26/17 17:38 Dose: 250 mg - Labs Labs: 07/27/17 09:55 07/27/17 09:55 PT 14.3 SECONDS (9.7-12.2) H 07/16/17 04:00 INR 1.3 07/16/17 04:00 APTT 29 SECONDS (21-34) 07/13/17 20:04 - Constitutional Appears: No Acute Distress, Chronically Ill - Head Exam Head Exam: ATRAUMATIC, NORMAL INSPECTION - Eye Exam Eye Exam: EOMI, Normal appearance - Neck Exam Neck Exam: Normal Inspection. absent: Tenderness - Respiratory Exam Respiratory Exam: Clear to Ausculation Bilateral, NORMAL BREATHING PATTERN - Cardiovascular Exam Cardiovascular Exam: REGULAR RHYTHM, +S1 - GI/Abdominal Exam GI & Abdominal Exam: Soft, Tenderness - Extremities Exam Extremities Exam: Normal Inspection. absent: Tenderness - Neurological Exam Neurological Exam: Awake, CN II-XII Intact - Skin Skin Exam: Dry, Warm Assessment and Plan (1) Hx of stroke without residual deficits Status: Acute (2) History of hypertension Status: Chronic (3) JAY JAY (acute kidney injury) Status: Acute (4) Type 2 diabetes mellitus with diabetic nephropathy Status: Acute (5) Chronic kidney disease, stage III (moderate) Status: Acute (6) Proteinuria Status: Acute (7) Hyponatremia with excess extracellular fluid volume Status: Acute - Assessment and Plan (Free Text) Plan: Dialysis for now check creat clearance replete mag
[2017-07-27] MEDS: EPOETIN ALFA 10,000 UNIT/ML ML IV SCH (11:18)
[2017-07-27] MEDS: Saccharomyces Boulardi 250 mg Cap PO SCH ×2 (12:00→17:06)
[2017-07-27] MEDS: Pantoprazole 40 mg EC Tab PO SCH (12:00)
[2017-07-27] MEDS: POLYETHYLENE GLYCOL 3350 17 GM/Dose PACKET PO SCH (13:48)
[2017-07-27] MEDS: Magnesium Sulfate 1 gm in D5W 1 GM/100 ML BAG IVPB SCH ×2 (13:51→13:52)
--- NOTE | 2017-07-27 15:58 | CP.PCM.PN ---
Subjective - Date & Time of Evaluation Date of Evaluation: 07/27/17 Time of Evaluation: 15:55 - Subjective Subjective: Patient seen and examined Dialysis today Still complaining of generalized pain Added PT Today Patient was OOB No other changes at this time, continue current management Objective - Vital Signs/Intake and Output Vital Signs (last 24 hours): Temp Pulse Resp BP Pulse Ox 97.9 F 97 H 21 102/55 L 99 07/27/17 12:50 07/27/17 12:50 07/27/17 12:50 07/27/17 12:50 07/27/17 12:50 Intake and Output: 07/27/17 07/27/17 06:59 18:59 Intake Total 440 120 Output Total 450 Balance -10 120 - Medications Medications: Current Medications Albuterol Sulfate (Albuterol 0.042% Inhal Ruby (1.25mg/3ml) Ud) 1.25 mg INH RQ6 PRN PRN Reason: Wheezing Last Admin: 07/27/17 07:10 Dose: 1.25 mg Ascorbic Acid (Vitamin C 250 Mg Tab) 250 mg PO DAILY [facility] Last Admin: 07/27/17 12:00 Dose: 250 mg Aspirin (Aspirin Chewable) 81 mg PO DAILY [facility] Last Admin: 07/27/17 12:00 Dose: 81 mg Benzocaine/Menthol (Cepacol Sore Throat) 1 love MT Q2 PRN PRN Reason: Sore Throat Last Admin: 07/25/17 09:12 Dose: 1 love Calcium Acetate (Phoslo) 1,334 mg PO TID [facility] Last Admin: 07/27/17 14:06 Dose: 1,334 mg Clopidogrel Bisulfate (Plavix) 75 mg PO DAILY [facility] Last Admin: 07/27/17 12:00 Dose: 75 mg Cyproheptadine HCl (Periactin) 4 mg PO BID [facility] Last Admin: 07/27/17 12:00 Dose: 4 mg Donepezil HCl (Aricept) 10 mg PO HS [facility] Last Admin: 07/26/17 21:13 Dose: 10 mg Epoetin Romel (Procrit) 10,000 unit IV MWF [facility] Last Admin: 07/27/17 11:18 Dose: 10,000 unit Ferrous Sulfate (Feosol) 325 mg PO Q12H [facility] Last Admin: 07/27/17 06:43 Dose: 325 mg Home Med (Fesoterodine Fumarate [Toviaz]) 8 mg PO DAILY [facility] Hydromorphone HCl (Dilaudid) 0.5 mg IVP Q4 PRN PRN Reason: Pain, severe (8-10) Last Admin: 07/27/17 03:08 Dose: 0.5 mg Tigecycline 50 mg/ Dextrose 100 mls @ 100 mls/hr IVPB Q12H [facility] Last Admin: 07/27/17 13:53 Dose: 100 mls/hr Metronidazole 250 mg/ (Miscellaneous) 50 mls @ 100 mls/hr IVPB Q8 [facility] Last Admin: 07/27/17 13:53 Dose: 100 mls/hr Insulin Human Regular (Novolin R) 0 unit SC ACHS [facility] PRN Reason: Protocol Last Admin: 07/27/17 12:00 Dose: 2 unit Latanoprost (Xalatan Opht) 0 ml OU HS [facility] Last Admin: 07/26/17 21:14 Dose: 2.5 ml Levothyroxine Sodium (Synthroid) 50 mcg PO DAILY@0630 [facility] Last Admin: 07/27/17 06:43 Dose: 50 mcg Metoprolol Succinate (Toprol Xl) 100 mg PO DAILY [facility] Last Admin: 07/14/17 13:41 Dose: 100 mg Ondansetron HCl (Zofran Inj) 4 mg IVP Q6 PRN PRN Reason: Nausea/Vomiting Pantoprazole Sodium (Protonix Ec Tab) 40 mg PO DAILY [facility] Last Admin: 07/27/17 12:00 Dose: 40 mg Polyethylene Glycol (Miralax) 17 gm PO DAILY [facility] Last Admin: 07/27/17 13:48 Dose: Not Given Rosuvastatin Calcium (Crestor) 10 mg PO HS [facility] Last Admin: 07/26/17 21:13 Dose: 10 mg Saccharomyces Boulardii (Florastor) 250 mg PO BID [facility] Last Admin: 07/27/17 12:00 Dose: 250 mg - Labs Labs: 07/27/17 09:55 07/27/17 09:55 PT 14.3 SECONDS (9.7-12.2) H 07/16/17 04:00 INR 1.3 07/16/17 04:00 APTT 29 SECONDS (21-34) 07/13/17 20:04 - Additional Findings Additional findings: - Constitutional Appears: Well, Non-toxic, No Acute Distress - Head Exam Head Exam: ATRAUMATIC - Respiratory Exam Respiratory Exam: absent: Rales, Rhonchi, Wheezes Additional comments: coarse bs - Cardiovascular Exam Cardiovascular Exam: Irregular Rhythm, +S1, +S2. absent: REGULAR RHYTHM - GI/Abdominal Exam GI & Abdominal Exam: Soft, Normal Bowel Sounds. absent: Tenderness, Organomegaly, Rebound - Neurological Exam Neurological Exam: Alert, Awake. absent: Oriented x3 Neuro motor strength exam: Left Upper Extremity: 5, Right Upper Extremity: 5, Left Lower Extremity: 3, Right Lower Extremity: 3 Assessment and Plan - Assessment and Plan (Free Text) Assessment: (1) Cardiac Arrest PEA on 07/20/17 Assessment and Plan: * Status post-procedure; patient went into PEA on 07/20 ROSC returned; intubated 07/20/17-/8 * Chest xray (07/22/17): moderate left pleural effusion with consolidative opacification in the left mid to lower lung zone. trace right pleural effusion with adjacent right basilar consolidation. cardiomeglay. calcification at the aortic knob (2) Chest pain atypical Assessment and Plan: * Patient with atypical chest pain history * Cardio Dr. Chau does not feel that this is cardiac related * PEA on 07/21 * Per cardio note: patient does not appear to have CHF, will trend troponin * Discussed with cardio; no amiodarone needed * TSH, Free T4 are normal * ECHO 07/13/17: LV EF is WNL, moderate concentric LVH, Grade I abnormal relaxation pattern * elevated troponin due to sepsis and afib Status: Acute (3) ERCP Guidewire Perforation of Liver Capsule / Peripheral Bile Duct Assessment and Plan: * s/p ERCP with removal of stent and sphincterotomy with Dr. Damian 07/13/17 * CXR 07/13/17 does not show air under diaphragm. * Chest CT 07/13/17 shows pneumobilia as well as possible free air beneath Right Hemidiaphragm within Paraesophagel soft tissues. * CT Abdomen/Pelvis 07/13/17 shows gas fluid and stranding in the subcapsular and extracapsular area around Left Lobe Liver. * CT Abdomen/Pelvis on 07/14/17 showed gas and fluid around left lobe liver and along inferior vena cava that is unchanged, no evidence of extravasation of oral contrast from stomach or duodenem. * Abdomen X Ray 07/16/17 showed NO obstruction. * CT Abdomen/Pelvis w/o contrast 07/19/17: Fluid re-identified, which appears similar in size and likely subcapsular in location. No nathan currently evident with in the collection, Small pneumobila. Moderate bilateral pleural effusions and associated consolidations. Small abomdinla ascites. Small pelvic free fluid. Thicken walled under distended urinary bladder which contains air, Pacheco catheter is present * GI Dr. Damian spoke with IR 07/15/17 and area is NOT amenable to percutaneous drainage. * Surgery Dr. Boyce consulted: no surgical intervention at this time and keep NPO with NGT for now * 07/21: patient intubated yesterday in light of events; with OGT * 07/22: Per GI note, "Repeat CT imaging reviewed by me showing no evidence of abdominal free air or worsening fluid collection, therefore no intervention warranted at this time If prolonged intubation time is anticipated, suggest NGT placement and beginning enteral feeding" * now extubated no NGT needed now on enteral feeding oral (4) Enterococcus faecium Bacteremia * Infectious Disease (Dr. Langford) on the board * Started on Tigecycline 50 mg IV Q12H after 100 mg initial infusion (07/17/17) * Discontinued Meropenem, Ciprofloxicin, and Vancomycin (07/17/17) * 07/14/17: Enterococcus Faecium X2 * Blood Culture: 07/17/17: No growth after 48 hours (1 bottle negative for 4 days/the 2nd one supports Enterococcus Faecium) * Blood Culture: 07/20/17: No growth after 3 days X3 * On contact isolation Status: Acute (5). Atrial Fibrillation/Elevated Troponin * Cardiology (Dr. Chau) on board-->help appreciated * Amiodarone 900mg IV Q 24H * Toprol XL 100mg PO daily (held) * The Atrial Fibrillation is likely secondary to the increased sympathetic tone from the Sepsis and the elevated Troponin likely secondary to the Atrial Fibrillation * Repeat EKG (NSR) 07/21/17 Status: Acute (6) Bilateral Pneumonia * CT Abdomen/Pelvis 07/13/17 showed bibasilar lingular and right middle lobe mild nonspecific infiltrates consistent with atelectasis/pneumonia * As patient was admitted to hospital within the last month (for Left Buttock Abscess) and has been on antibiotics, this is likely Health Care Associated Pneumonia with increased risk for Multidrug Resistence therefore he was treated with the following: * Meropenem 500 mg IV Q6H (07/14/17 through 07/17/17), Ciprofloxacin 400 mg IV Q12H (07/14/17 through 07/16/17),Vancomycin 1 gm IV Q24H (07/14/17 through ) and then patient started on Tigecycline as mentioned above * CT Abdomen/Pelvis w/o contrast 07/19/17: Fluid re-identified, which appears similar in size and likely subcapsular in location. No nathan currently evident with in the collection, Small pneumobila. Moderate bilateral pleural effusions and associated consolidations. Small abomdinla ascites. Small pelvic free fluid. Thicken walled under distended urinary bladder which contains air, Pacheco catheter is present * Chest xray (07/22/17): moderate left pleural effusion with consolidative opacification in the left mid to lower lung zone. trace right pleural effusion with adjacent right basilar consolidation. cardiomeglay. calcification at the aortic knob * Urine Legionella Ag is negative * Urine Strep pneumoniae Ag: non detected * Mycoplasma IgM is 81 (negative) Ig.07 * Influenza A/B is negative * Urine Culture is negative Status: Acute (7). Anion Gap Metabolic Acidosis * Sepsis: CODE SEPSIS was called 07/14/17 * See Assessment and Plans #2, #3, #5 * Due to the severe acidosis he was also started on D5W with 3 amps of NaHCO3 running at 100 ml/hour and this had resolved therefore the D5W NaHCO3 was discontinued 07/15/17. However the Acidosis returned and is likely secondary to the worsening Renal Function/Sepsis. Status: Acute (8). Hyperkalemia * Likely secondary to the Anion Gap Metabolic Acidosis * See Assessment and Plans #2 and #3 * Mild Status: Acute (9). CKD Stage III/Worsening Renal Failure/Hyponatremia * Nephrology Dr. Oconnell * The worsening Renal Function likely secondary to the Sepsis * Worsening Hyponatremia likely dilutional from the IVF initially used to help with the Renal Function. IVF have been discontinued. * Lasix 60 mg IV 2x/day started 07/18/17 to help with the Hyponatremia however there was no significant improvement on 07/19/17 * Despite the Lasix, renal function worsening 07/19/17. 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 Larsen to HD Nurse Ramon Garibay to start HD once Dialysis Catheter is placed by the Surgical Team which is planned for morning of 07/20/17. * 07/21: patient started dialysis on 07/20; 800 ML removed * 07/22: patient to have 2nd session of dialysis today; per discussion with nurse Status: Acute on Chronic (10). Headache with Hx CVA Assessment and Plan: * CT Head 07/13/17 was negative for bleed or acute process * If NO surgical/IR intervention will then restart ASA * held Plavix 75 mg PO 1x/day since 07/14/17-->07/22:will need to discuss with surgery if plavix can be restarted in light of stroke hx Status: Acute (11) AD (Alzheimer's disease) Assessment and Plan: * Aricept 10 mg PO daily. Status: Chronic (12) Choledocholithiasis Assessment and Plan: * s/p ERCP with removal of stent and sphincterotomy with Dr. Damian 07/13/17 * 07/22: Per GI note, "Repeat CT imaging reviewed by me showing no evidence of abdominal free air or worsening fluid collection, therefore no intervention warranted at this time If prolonged intubation time is anticipated, suggest NGT placement and beginning enteral feeding" Status: Acute (13) Anemia Assessment and Plan: * Likely secondary to Chronic Disease: CKD Stage III * Resume Ferrous Sulfate 325 mg PO daily. * HgB/Hct are stable Status: Chronic (14) Hx Left Gluteal abscess Assessment and Plan: * Was I&D by surgery team on 06/26/17 * Treated with Bactrim 800/160 PO Q12H for 7 days S/P discharge 06/27/17 Status: Chronic (15) HLD (hyperlipidemia) Assessment and Plan: * Lopid 600 mg PO BID * Patient takes Lipitor 80 mg PO HS which is not on formulary therefore Crestor 10 mg PO HS (renal dosed). Status: Chronic (16) HTN (hypertension) Assessment and Plan: * As the patient's blood pressure is on the low end and he is off Amiodarone Drip since 07/21, therefore the following medications are on HOLD: Amlodipine 10 mg PO daily, Metoprolol XL 100 mg PO daily, and Losartan 100 mg PO daily are all on HOLD * 07/22: patient is off Amiodarone drip since 07/21; but patient is back in atrial fibrillation but is due for second dialysis today. patient's anti- hypertensives remain on hold Status: Chronic (17) Hx of stroke without residual deficits Assessment and Plan: * CT Head 07/13/17 was negative for bleed or acute process * Crestor 10 mg PO HS (renal dosed). * Hold ASA as mentioned above * Hold Plavix 75 mg PO 1x/day since 07/14/17--->will need to discuss with surgery in regards to restart aspirin/plavix Status: Chronic (18) Diabetes Assessment and Plan: * Blood Glucose elevated at times: he is on clear liquids * ISS Q6H * Accuchecks Q6H Status: Chronic (19) History of hypothyroidism Assessment and Plan: * Levothyroxine 50 mcg PO daily * TSH, Free T4 are normal Status: Chronic (20) Overactive bladder Assessment and Plan: * Festerodine 8 mg PO 1x/day * Enlarged Prostate on CT Abdomen/Pelvis * PSA ordered 07/14/17 but I do not see results. I believe he can follow this up as an outpatient. Status: Chronic (21) Hx of glaucoma Assessment and Plan: * Patient's home med Travatan ggt not on formulary. * Started Xalatan ggt in bilateral eyes. Status: Chronic (22) Hx of gastroesophageal reflux (GERD) Assessment and Plan: * Protonix 40 mg IV daily Status: Chronic (23) Prophylactic measure Assessment and Plan: * Protonix 40 mg daily * SCDs * Hold chemical anticoagulation for now for reasons mentioned above * Ascorbic Acid 250 mg PO daily * Florastor 250 mg PO 2x/day * Zofran 4 mg IV Q6H PRN N/V * Morphine 0.5 mg IV Q6H PRN Severe Pain with Holding Parameters (hesitant to give anything more due to the low end of normal Blood Pressure) * Intubated on 07/20/17; extubated 07/22/17; on Pressor 07/21; off sedation; off amiodarone IV 07/21
--- NOTE | 2017-07-27 16:17 | CP.PCM.PN ---
Addendum entered and electronically signed by Marcelino Ordoñez DO 07/27/17 16:57 : No further surgical intervention required. Surgery signing off. Please re- consult as needed. Thank you for consult. Original Note: <Marcelino Ordoñez - Last Filed: 07/27/17 16:14> Subjective - Date & Time of Evaluation Date of Evaluation: 07/27/17 Time of Evaluation: 07:35 - Subjective Subjective: General Surgery Note for Dr. Boyce Patient seen and examined at bedside. No acute event overnight. He is lying in bed comfortably. Patient report epigastric pain is unchanged. He is tolerating full liquid diet and having normal BMs. No other complaints today. Objective - Vital Signs/Intake and Output Vital Signs (last 24 hours): Temp Pulse Resp BP Pulse Ox 97.4 F L 96 H 20 113/59 L 99 07/27/17 16:00 07/27/17 16:00 07/27/17 16:00 07/27/17 16:00 07/27/17 16:00 Intake and Output: 07/27/17 07/27/17 06:59 18:59 Intake Total 440 120 Output Total 450 Balance -10 120 - Medications Medications: Current Medications Albuterol Sulfate (Albuterol 0.042% Inhal Ruby (1.25mg/3ml) Ud) 1.25 mg INH RQ6 PRN PRN Reason: Wheezing Last Admin: 07/27/17 07:10 Dose: 1.25 mg Ascorbic Acid (Vitamin C 250 Mg Tab) 250 mg PO DAILY [facility] Last Admin: 07/27/17 12:00 Dose: 250 mg Aspirin (Aspirin Chewable) 81 mg PO DAILY [facility] Last Admin: 07/27/17 12:00 Dose: 81 mg Benzocaine/Menthol (Cepacol Sore Throat) 1 love MT Q2 PRN PRN Reason: Sore Throat Last Admin: 07/25/17 09:12 Dose: 1 love Calcium Acetate (Phoslo) 1,334 mg PO TID [facility] Last Admin: 07/27/17 14:06 Dose: 1,334 mg Clopidogrel Bisulfate (Plavix) 75 mg PO DAILY [facility] Last Admin: 07/27/17 12:00 Dose: 75 mg Cyproheptadine HCl (Periactin) 4 mg PO BID [facility] Last Admin: 07/27/17 12:00 Dose: 4 mg Donepezil HCl (Aricept) 10 mg PO HS [facility] Last Admin: 07/26/17 21:13 Dose: 10 mg Epoetin Romel (Procrit) 10,000 unit IV MWF [facility] Last Admin: 07/27/17 11:18 Dose: 10,000 unit Ferrous Sulfate (Feosol) 325 mg PO Q12H [facility] Last Admin: 07/27/17 06:43 Dose: 325 mg Home Med (Fesoterodine Fumarate [Toviaz]) 8 mg PO DAILY [facility] Hydromorphone HCl (Dilaudid) 0.5 mg IVP Q4 PRN PRN Reason: Pain, severe (8-10) Last Admin: 07/27/17 03:08 Dose: 0.5 mg Tigecycline 50 mg/ Dextrose 100 mls @ 100 mls/hr IVPB Q12H [facility] Last Admin: 07/27/17 13:53 Dose: 100 mls/hr Metronidazole 250 mg/ (Miscellaneous) 50 mls @ 100 mls/hr IVPB Q8 [facility] Last Admin: 07/27/17 13:53 Dose: 100 mls/hr Insulin Human Regular (Novolin R) 0 unit SC ACHS [facility] PRN Reason: Protocol Last Admin: 07/27/17 12:00 Dose: 2 unit Latanoprost (Xalatan Opht) 0 ml OU [facility] Last Admin: 07/26/17 21:14 Dose: 2.5 ml Levothyroxine Sodium (Synthroid) 50 mcg PO DAILY@0630 [facility] Last Admin: 07/27/17 06:43 Dose: 50 mcg Metoprolol Succinate (Toprol Xl) 100 mg PO DAILY [facility] Last Admin: 07/14/17 13:41 Dose: 100 mg Ondansetron HCl (Zofran Inj) 4 mg IVP Q6 PRN PRN Reason: Nausea/Vomiting Pantoprazole Sodium (Protonix Ec Tab) 40 mg PO DAILY [facility] Last Admin: 07/27/17 12:00 Dose: 40 mg Polyethylene Glycol (Miralax) 17 gm PO DAILY [facility] Last Admin: 07/27/17 13:48 Dose: Not Given Rosuvastatin Calcium (Crestor) 10 mg PO HS [facility] Last Admin: 07/26/17 21:13 Dose: 10 mg Saccharomyces Boulardii (Florastor) 250 mg PO BID [facility] Last Admin: 07/27/17 12:00 Dose: 250 mg - Labs Labs: 07/27/17 09:55 07/27/17 09:55 PT 14.3 SECONDS (9.7-12.2) H 07/16/17 04:00 INR 1.3 07/16/17 04:00 APTT 29 SECONDS (21-34) 07/13/17 20:04 - Constitutional Appears: Non-toxic, No Acute Distress - Head Exam Head Exam: NORMOCEPHALIC - Eye Exam Eye Exam: Normal appearance - ENT Exam ENT Exam: Mucous Membranes Moist - Neck Exam Additional comments: left IJ permacath - Respiratory Exam Respiratory Exam: NORMAL BREATHING PATTERN - Cardiovascular Exam Cardiovascular Exam: REGULAR RHYTHM - GI/Abdominal Exam GI & Abdominal Exam: Soft, Tenderness (epigastrium), Normal Bowel Sounds. absent: Firm, Guarding, Rigid, Rebound - Extremities Exam Extremities Exam: Normal Capillary Refill - Neurological Exam Neurological Exam: Alert, Awake - Psychiatric Exam Psychiatric exam: Normal Affect, Normal Mood - Skin Skin Exam: Dry, Normal Color, Warm Assessment and Plan - Assessment and Plan (Free Text) Plan: 82 M s/p Left IJ permacath POD #7 -Dialysis today -Full Liquid diet, ADAT -Analgesics/Anti-emetics PRN -Management as per primary -Discussed with Dr. Austen Ordoñez PGY1 <Manohar Boyce B - Last Filed: 07/29/17 19:23> Objective - Vital Signs/Intake and Output Vital Signs (last 24 hours): Temp Pulse Resp BP Pulse Ox 97.9 F 77 25 H 95/41 L 100 07/29/17 16:00 07/29/17 18:02 07/29/17 18:02 07/29/17 18:02 07/29/17 18:02 Intake and Output: 07/29/17 07/30/17 18:59 06:59 Intake Total 440 Output Total 1400 Balance -960 - Medications Medications: Current Medications Albuterol Sulfate (Albuterol 0.042% Inhal Ruby (1.25mg/3ml) Ud) 1.25 mg INH RQ6 PRN PRN Reason: Wheezing Last Admin: 07/28/17 07:05 Dose: 1.25 mg Ascorbic Acid (Vitamin C 250 Mg Tab) 250 mg PO DAILY [facility] Last Admin: 07/29/17 11:44 Dose: 250 mg Aspirin (Aspirin Chewable) 81 mg PO DAILY [facility] Last Admin: 07/29/17 11:42 Dose: 81 mg Benzocaine/Menthol (Cepacol Sore Throat) 1 love MT Q2 PRN PRN Reason: Sore Throat Last Admin: 07/25/17 09:12 Dose: 1 love Calcium Acetate (Phoslo) 1,334 mg PO TID [facility] Last Admin: 07/29/17 19:19 Dose: Not Given Clopidogrel Bisulfate (Plavix) 75 mg PO DAILY [facility] Last Admin: 07/29/17 11:12 Dose: 75 mg Cyproheptadine HCl (Periactin) 4 mg PO BID [facility] Last Admin: 07/29/17 18:24 Dose: 4 mg Donepezil HCl (Aricept) 10 mg PO HS [facility] Last Admin: 07/28/17 21:17 Dose: 10 mg Epoetin Romel (Procrit) 10,000 unit IV MWF [facility] Last Admin: 07/29/17 11:43 Dose: 10,000 unit Ferrous Sulfate (Feosol) 325 mg PO Q12H [facility] Last Admin: 07/29/17 18:20 Dose: 325 mg Heparin Sodium (Porcine) (Heparin) 5,000 units SC Q12 [facility] Last Admin: 07/29/17 11:15 Dose: 5,000 units Home Med (Fesoterodine Fumarate [Toviaz]) 8 mg PO DAILY [facility] Hydromorphone HCl (Dilaudid) 0.5 mg IVP Q4 PRN PRN Reason: Pain, severe (8-10) Last Admin: 07/29/17 11:00 Dose: 0.5 mg Metronidazole 250 mg/ (Miscellaneous) 50 mls @ 100 mls/hr IVPB Q8 [facility] Last Admin: 07/29/17 13:43 Dose: 100 mls/hr Insulin Human Regular (Novolin R) 0 unit SC ACHS [facility] PRN Reason: Protocol Last Admin: 07/29/17 16:56 Dose: 3 unit Latanoprost (Xalatan Opht) 0 ml OU HS [facility] Last Admin: 07/28/17 22:00 Dose: 2.5 ml Levothyroxine Sodium (Synthroid) 50 mcg PO DAILY@0630 [facility] Last Admin: 07/29/17 06:22 Dose: 50 mcg Metoprolol Succinate (Toprol Xl) 25 mg PO DAILY [facility] Last Admin: 07/29/17 11:18 Dose: 25 mg Ondansetron HCl (Zofran Inj) 4 mg IVP Q6 PRN PRN Reason: Nausea/Vomiting Last Admin: 07/29/17 13:43 Dose: 4 mg Pantoprazole Sodium (Protonix Ec Tab) 40 mg PO DAILY [facility] Last Admin: 07/29/17 11:13 Dose: 40 mg Polyethylene Glycol (Miralax) 17 gm PO DAILY [facility] Last Admin: 07/29/17 11:19 Dose: 17 gm Rosuvastatin Calcium (Crestor) 10 mg PO HS [facility] Last Admin: 07/28/17 21:17 Dose: 10 mg Saccharomyces Boulardii (Florastor) 250 mg PO BID [facility] Last Admin: 07/29/17 18:20 Dose: 250 mg - Labs Labs: 07/29/17 06:08 07/29/17 06:08 PT 14.3 SECONDS (9.7-12.2) H 07/16/17 04:00 INR 1.3 07/16/17 04:00 APTT 29 SECONDS (21-34) 07/13/17 20:04 Attending/Attestation - Attestation I have personally seen and examined this patient.: Yes I have fully participated in the care of the patient.: Yes I have reviewed all pertinent clinical information, including history, physical exam and plan: Yes Notes (Text): Pt was seen and examined at bedside Agree with above note and assessment Pt with Resolved Ileus and leucocytosis Advance diet as tolerated continue with current mx Plan d.w pt and primary team in detail. F/u PRN
[2017-07-27] MEDS: Latanoprost 2.5 ml Opht Soln OU SCH (21:17)
[2017-07-28] MEDS: Tigecycline 50 MG in Dextrose 5% In Water 100 ML IVPB SCH ×2 (00:13→12:43)
[2017-07-28] MEDS: HYDROmorphone 0.5 mg/0.5 ml ISec IVP PRN ×2 (03:51→18:52)
[2017-07-28] MEDS: metroNIDAZOLE IV 500 mg/100 ml 250 MG in Premixed IV 1 EA IVPB SCH ×3 (05:06→21:17)
[2017-07-28] MEDS: Levothyroxine 50 MCG TAB PO SCH (06:22)
[2017-07-28] MEDS: Albuterol 0.042% Inhal Sol (1.25 mg/3 mL) UD INH PRN (07:05)
[2017-07-28] MEDS: (Novolin R) Insulin Human Regular 100 units/ml vial SC SCH ×4 (08:02→21:18)
[2017-07-28] MEDS: POLYETHYLENE GLYCOL 3350 17 GM/Dose PACKET PO SCH (09:12)
[2017-07-28] MEDS: Pantoprazole 40 mg EC Tab PO SCH (09:16)
[2017-07-28] MEDS: Saccharomyces Boulardi 250 mg Cap PO SCH ×2 (09:16→17:26)
--- NOTE | 2017-07-28 09:19 | CP.PCM.PN ---
<Dianne Salinas - Last Filed: 07/28/17 09:17> Subjective - Date & Time of Evaluation Date of Evaluation: 07/28/17 Time of Evaluation: :17 - Subjective Subjective: Gastroenterology Fellow/PGY5 Progress Note Patient continues to note mild abdominal pain. Tolerated full liquid diet. One bowel movement overnight. A 12-point review of systems not completed due to advanced Dementia. Objective - Vital Signs/Intake and Output Vital Signs (last 24 hours): Temp Pulse Resp BP Pulse Ox 98.3 F 98 H 21 109/50 L 99 07/28/17 08:00 07/28/17 08:00 07/28/17 08:00 07/28/17 08:00 07/28/17 08:00 Intake and Output: 07/28/17 07/28/17 06:59 18:59 Intake Total 440 Output Total 250 Balance 190 - Medications Medications: Current Medications Albuterol Sulfate (Albuterol 0.042% Inhal Ruby (1.25mg/3ml) Ud) 1.25 mg INH RQ6 PRN PRN Reason: Wheezing Last Admin: 07/28/17 07:05 Dose: 1.25 mg Ascorbic Acid (Vitamin C 250 Mg Tab) 250 mg PO DAILY [facility] Last Admin: 07/27/17 12:00 Dose: 250 mg Aspirin (Aspirin Chewable) 81 mg PO DAILY [facility] Last Admin: 07/27/17 12:00 Dose: 81 mg Benzocaine/Menthol (Cepacol Sore Throat) 1 love MT Q2 PRN PRN Reason: Sore Throat Last Admin: 07/25/17 09:12 Dose: 1 love Calcium Acetate (Phoslo) 1,334 mg PO TID [facility] Last Admin: 07/28/17 09:16 Dose: 1,334 mg Clopidogrel Bisulfate (Plavix) 75 mg PO DAILY [facility] Last Admin: 07/27/17 12:00 Dose: 75 mg Cyproheptadine HCl (Periactin) 4 mg PO BID [facility] Last Admin: 07/28/17 09:17 Dose: 4 mg Donepezil HCl (Aricept) 10 mg PO HS [facility] Last Admin: 07/27/17 21:15 Dose: 10 mg Epoetin Romel (Procrit) 10,000 unit IV MWF [facility] Last Admin: 07/27/17 11:18 Dose: 10,000 unit Ferrous Sulfate (Feosol) 325 mg PO Q12H [facility] Last Admin: 07/28/17 06:22 Dose: 325 mg Home Med (Fesoterodine Fumarate [Toviaz]) 8 mg PO DAILY [facility] Hydromorphone HCl (Dilaudid) 0.5 mg IVP Q4 PRN PRN Reason: Pain, severe (8-10) Last Admin: 07/28/17 03:51 Dose: 0.5 mg Tigecycline 50 mg/ Dextrose 100 mls @ 100 mls/hr IVPB Q12H [facility] Last Admin: 07/28/17 00:13 Dose: 100 mls/hr Metronidazole 250 mg/ (Miscellaneous) 50 mls @ 100 mls/hr IVPB Q8 [facility] Last Admin: 07/28/17 05:06 Dose: 100 mls/hr Insulin Human Regular (Novolin R) 0 unit SC ACHS [facility] PRN Reason: Protocol Last Admin: 07/28/17 08:02 Dose: Not Given Latanoprost (Xalatan Opht) 0 ml OU HS [facility] Last Admin: 07/27/17 21:17 Dose: 2.5 ml Levothyroxine Sodium (Synthroid) 50 mcg PO DAILY@0630 [facility] Last Admin: 07/28/17 06:22 Dose: 50 mcg Metoprolol Succinate (Toprol Xl) 100 mg PO DAILY [facility] Last Admin: 07/14/17 13:41 Dose: 100 mg Ondansetron HCl (Zofran Inj) 4 mg IVP Q6 PRN PRN Reason: Nausea/Vomiting Pantoprazole Sodium (Protonix Ec Tab) 40 mg PO DAILY [facility] Last Admin: 07/28/17 09:16 Dose: 40 mg Polyethylene Glycol (Miralax) 17 gm PO DAILY [facility] Last Admin: 07/28/17 09:12 Dose: Not Given Rosuvastatin Calcium (Crestor) 10 mg PO HS [facility] Last Admin: 07/27/17 21:15 Dose: 10 mg Saccharomyces Boulardii (Florastor) 250 mg PO BID [facility] Last Admin: 07/28/17 09:16 Dose: 250 mg - Labs Labs: 07/27/17 09:55 07/27/17 09:55 PT 14.3 SECONDS (9.7-12.2) H 07/16/17 04:00 INR 1.3 07/16/17 04:00 APTT 29 SECONDS (21-34) 07/13/17 20:04 - Constitutional Appears: Non-toxic, No Acute Distress - Head Exam Head Exam: ATRAUMATIC, NORMOCEPHALIC - Eye Exam Eye Exam: EOMI, PERRL. absent: Scleral icterus Pupil Exam: PERRL. absent: Miosis, Mydriatic - ENT Exam ENT Exam: Mucous Membranes Moist, Normal Oropharynx - Neck Exam Neck Exam: Full ROM, Normal Inspection - Respiratory Exam Respiratory Exam: Clear to Ausculation Bilateral. absent: Rales, Rhonchi, Wheezes - Cardiovascular Exam Cardiovascular Exam: RRR, +S1, +S2. absent: Gallop, Rubs - GI/Abdominal Exam GI & Abdominal Exam: Soft, Tenderness, Normal Bowel Sounds. absent: Distended, Firm, Guarding, Rigid, Organomegaly, Rebound Additional comments: mild diffuse abdominal discomfort - Extremities Exam Extremities Exam: Normal Inspection. absent: Pedal Edema - Neurological Exam Neurological Exam: Alert, Awake - Psychiatric Exam Psychiatric exam: Normal Affect, Normal Mood - Skin Skin Exam: Dry, Intact, Normal Color, Warm Assessment and Plan - Assessment and Plan (Free Text) Assessment: 82 year old male with history of Diabetes, Hyperlipidemia, Hypertension, Hypothyroidism, CKD, Alzheimer's Dementia, CVA on Plavix, and cholangitis s/p ERCP with CBD stent (04/2017). Active treatment of renal failure on HD, day 7 () post extubation for hypoxic VDRF s/p PEA arrest with ROSC (07/20), HCAP, E. faecium Bacteremia, and ERCP guidewire pneumoperitoneum with hepatic subcapsular /extracapsular fluid collection now resolved on CT A/P 07/25/17. Plan: >continue Miralax daily >advance to soft diet >ID managing- broad spectrum antibiotics >nephrology managing- on hemodialysis >subcapsular fluid collection resolved >thank you for opportunity to participate in the care of this patient. Please contact with questions or concerns. <Gabriel Chang - Last Filed: 07/28/17 11:27> Objective - Vital Signs/Intake and Output Vital Signs (last 24 hours): Temp Pulse Resp BP Pulse Ox 98.3 F 98 H 21 109/50 L 99 07/28/17 08:00 07/28/17 08:00 07/28/17 08:00 07/28/17 08:00 07/28/17 08:00 Intake and Output: 07/28/17 07/28/17 06:59 18:59 Intake Total 440 150 Output Total 250 Balance 190 150 - Medications Medications: Current Medications Albuterol Sulfate (Albuterol 0.042% Inhal Ruby (1.25mg/3ml) Ud) 1.25 mg INH RQ6 PRN PRN Reason: Wheezing Last Admin: 07/28/17 07:05 Dose: 1.25 mg Ascorbic Acid (Vitamin C 250 Mg Tab) 250 mg PO DAILY [facility] Last Admin: 07/28/17 09:17 Dose: 250 mg Aspirin (Aspirin Chewable) 81 mg PO DAILY [facility] Last Admin: 07/28/17 09:19 Dose: 81 mg Benzocaine/Menthol (Cepacol Sore Throat) 1 love MT Q2 PRN PRN Reason: Sore Throat Last Admin: 07/25/17 09:12 Dose: 1 love Calcium Acetate (Phoslo) 1,334 mg PO TID [facility] Last Admin: 07/28/17 09:16 Dose: 1,334 mg Clopidogrel Bisulfate (Plavix) 75 mg PO DAILY [facility] Last Admin: 07/28/17 09:19 Dose: 75 mg Cyproheptadine HCl (Periactin) 4 mg PO BID [facility] Last Admin: 07/28/17 09:17 Dose: 4 mg Donepezil HCl (Aricept) 10 mg PO HS [facility] Last Admin: 07/27/17 21:15 Dose: 10 mg Epoetin Romel (Procrit) 10,000 unit IV MWF [facility] Last Admin: 07/27/17 11:18 Dose: 10,000 unit Ferrous Sulfate (Feosol) 325 mg PO Q12H [facility] Last Admin: 07/28/17 06:22 Dose: 325 mg Home Med (Fesoterodine Fumarate [Toviaz]) 8 mg PO DAILY [facility] Hydromorphone HCl (Dilaudid) 0.5 mg IVP Q4 PRN PRN Reason: Pain, severe (8-10) Last Admin: 07/28/17 03:51 Dose: 0.5 mg Tigecycline 50 mg/ Dextrose 100 mls @ 100 mls/hr IVPB Q12H [facility] Last Admin: 07/28/17 00:13 Dose: 100 mls/hr Metronidazole 250 mg/ (Miscellaneous) 50 mls @ 100 mls/hr IVPB Q8 [facility] Last Admin: 07/28/17 05:06 Dose: 100 mls/hr Insulin Human Regular (Novolin R) 0 unit SC ACHS [facility] PRN Reason: Protocol Last Admin: 07/28/17 08:02 Dose: Not Given Latanoprost (Xalatan Opht) 0 ml OU HS [facility] Last Admin: 07/27/17 21:17 Dose: 2.5 ml Levothyroxine Sodium (Synthroid) 50 mcg PO DAILY@0630 [facility] Last Admin: 07/28/17 06:22 Dose: 50 mcg Metoprolol Succinate (Toprol Xl) 100 mg PO DAILY [facility] Last Admin: 07/14/17 13:41 Dose: 100 mg Ondansetron HCl (Zofran Inj) 4 mg IVP Q6 PRN PRN Reason: Nausea/Vomiting Pantoprazole Sodium (Protonix Ec Tab) 40 mg PO DAILY [facility] Last Admin: 07/28/17 09:16 Dose: 40 mg Polyethylene Glycol (Miralax) 17 gm PO DAILY [facility] Last Admin: 07/28/17 09:12 Dose: Not Given Rosuvastatin Calcium (Crestor) 10 mg PO HS [facility] Last Admin: 07/27/17 21:15 Dose: 10 mg Saccharomyces Boulardii (Florastor) 250 mg PO BID [facility] Last Admin: 07/28/17 09:16 Dose: 250 mg - Labs Labs: 07/27/17 09:55 07/27/17 09:55 PT 14.3 SECONDS (9.7-12.2) H 07/16/17 04:00 INR 1.3 07/16/17 04:00 APTT 29 SECONDS (21-34) 07/13/17 20:04 Attending/Attestation - Attestation I have personally seen and examined this patient.: Yes I have fully participated in the care of the patient.: Yes I have reviewed all pertinent clinical information, including history, physical exam and plan: Yes Notes (Text): 07/28/17 11:23 I have seen and examined patient with GI fellow. No acute events overnight, he is seen resting in bed comfortably. He complains of lack of appetite but denies abdominal pain, nausea, vomiting. He had a normal bowel movement yesterday as per nursing staff and is tolerating PO liquids without difficulty. Review of vitals from today shows tachycardia. DM / HTN Hyperlipidemia Acute on chronic renal insufficiency, now started on dialysis CVA Dementia Sepsis - bacteremia, pneumonia Cholangitis s/p ERCP with stent removal complicated by guidewire perforation of bile duct/hepatic capsule. Repeat CT imaging shows resolution of previously identified fluid collection. - Advance diet as tolerated - Maintain bowel regimen to prevent ongoing constipation - Continue with antibiotic therapy as per ID - Follow up nephrology recommendations - No further planned GI intervention, will sign off case. Please reconsult as necessary, thank you.
--- NOTE | 2017-07-28 10:52 | CP.PCM.PN ---
Subjective - Date & Time of Evaluation Date of Evaluation: 07/28/17 Time of Evaluation: 10:49 - Subjective Subjective: Patient seen and examined No new complaints at this time Dialysis MWF Continue antibiotics Continue PT Surgery and GI have singed off No change to current management Objective - Vital Signs/Intake and Output Vital Signs (last 24 hours): Temp Pulse Resp BP Pulse Ox 98.3 F 98 H 21 109/50 L 99 07/28/17 08:00 07/28/17 08:00 07/28/17 08:00 07/28/17 08:00 07/28/17 08:00 Intake and Output: 07/28/17 07/28/17 06:59 18:59 Intake Total 440 150 Output Total 250 Balance 190 150 - Medications Medications: Current Medications Albuterol Sulfate (Albuterol 0.042% Inhal Ruby (1.25mg/3ml) Ud) 1.25 mg INH RQ6 PRN PRN Reason: Wheezing Last Admin: 07/28/17 07:05 Dose: 1.25 mg Ascorbic Acid (Vitamin C 250 Mg Tab) 250 mg PO DAILY [facility] Last Admin: 07/28/17 09:17 Dose: 250 mg Aspirin (Aspirin Chewable) 81 mg PO DAILY [facility] Last Admin: 07/28/17 09:19 Dose: 81 mg Benzocaine/Menthol (Cepacol Sore Throat) 1 love MT Q2 PRN PRN Reason: Sore Throat Last Admin: 07/25/17 09:12 Dose: 1 love Calcium Acetate (Phoslo) 1,334 mg PO TID [facility] Last Admin: 07/28/17 09:16 Dose: 1,334 mg Clopidogrel Bisulfate (Plavix) 75 mg PO DAILY [facility] Last Admin: 07/28/17 09:19 Dose: 75 mg Cyproheptadine HCl (Periactin) 4 mg PO BID [facility] Last Admin: 07/28/17 09:17 Dose: 4 mg Donepezil HCl (Aricept) 10 mg PO HS [facility] Last Admin: 07/27/17 21:15 Dose: 10 mg Epoetin Romel (Procrit) 10,000 unit IV MWF [facility] Last Admin: 07/27/17 11:18 Dose: 10,000 unit Ferrous Sulfate (Feosol) 325 mg PO Q12H [facility] Last Admin: 07/28/17 06:22 Dose: 325 mg Home Med (Fesoterodine Fumarate [Toviaz]) 8 mg PO DAILY [facility] Hydromorphone HCl (Dilaudid) 0.5 mg IVP Q4 PRN PRN Reason: Pain, severe (8-10) Last Admin: 07/28/17 03:51 Dose: 0.5 mg Tigecycline 50 mg/ Dextrose 100 mls @ 100 mls/hr IVPB Q12H [facility] Last Admin: 07/28/17 00:13 Dose: 100 mls/hr Metronidazole 250 mg/ (Miscellaneous) 50 mls @ 100 mls/hr IVPB Q8 [facility] Last Admin: 07/28/17 05:06 Dose: 100 mls/hr Insulin Human Regular (Novolin R) 0 unit SC ACHS [facility] PRN Reason: Protocol Last Admin: 07/28/17 08:02 Dose: Not Given Latanoprost (Xalatan Opht) 0 ml OU HS [facility] Last Admin: 07/27/17 21:17 Dose: 2.5 ml Levothyroxine Sodium (Synthroid) 50 mcg PO DAILY@0630 [facility] Last Admin: 07/28/17 06:22 Dose: 50 mcg Metoprolol Succinate (Toprol Xl) 100 mg PO DAILY [facility] Last Admin: 07/14/17 13:41 Dose: 100 mg Ondansetron HCl (Zofran Inj) 4 mg IVP Q6 PRN PRN Reason: Nausea/Vomiting Pantoprazole Sodium (Protonix Ec Tab) 40 mg PO DAILY [facility] Last Admin: 07/28/17 09:16 Dose: 40 mg Polyethylene Glycol (Miralax) 17 gm PO DAILY [facility] Last Admin: 07/28/17 09:12 Dose: Not Given Rosuvastatin Calcium (Crestor) 10 mg PO HS [facility] Last Admin: 07/27/17 21:15 Dose: 10 mg Saccharomyces Boulardii (Florastor) 250 mg PO BID [facility] Last Admin: 07/28/17 09:16 Dose: 250 mg - Labs Labs: 07/27/17 09:55 07/27/17 09:55 PT 14.3 SECONDS (9.7-12.2) H 07/16/17 04:00 INR 1.3 07/16/17 04:00 APTT 29 SECONDS (21-34) 07/13/17 20:04 - Additional Findings Additional findings: (1) Cardiac Arrest PEA on 07/20/17 Assessment and Plan: * Status post-procedure; patient went into PEA on 07/20 ROSC returned; intubated 07/20/17-[id number] * Chest xray (07/22/17): moderate left pleural effusion with consolidative opacification in the left mid to lower lung zone. trace right pleural effusion with adjacent right basilar consolidation. cardiomeglay. calcification at the aortic knob (2) Chest pain atypical Assessment and Plan: * Patient with atypical chest pain history * Cardio Dr. Chau does not feel that this is cardiac related * PEA on 07/21 * Per cardio note: patient does not appear to have CHF, will trend troponin * Discussed with cardio; no amiodarone needed * TSH, Free T4 are normal * ECHO 07/13/17: LV EF is WNL, moderate concentric LVH, Grade I abnormal relaxation pattern * elevated troponin due to sepsis and afib Status: Acute (3) ERCP Guidewire Perforation of Liver Capsule / Peripheral Bile Duct Assessment and Plan: * s/p ERCP with removal of stent and sphincterotomy with Dr. Damian 07/13/17 * CXR 07/13/17 does not show air under diaphragm. * Chest CT 07/13/17 shows pneumobilia as well as possible free air beneath Right Hemidiaphragm within Paraesophagel soft tissues. * CT Abdomen/Pelvis 07/13/17 shows gas fluid and stranding in the subcapsular and extracapsular area around Left Lobe Liver. * CT Abdomen/Pelvis on 07/14/17 showed gas and fluid around left lobe liver and along inferior vena cava that is unchanged, no evidence of extravasation of oral contrast from stomach or duodenem. * Abdomen X Ray 07/16/17 showed NO obstruction. * CT Abdomen/Pelvis w/o contrast 07/19/17: Fluid re-identified, which appears similar in size and likely subcapsular in location. No nathan currently evident with in the collection, Small pneumobila. Moderate bilateral pleural effusions and associated consolidations. Small abomdinla ascites. Small pelvic free fluid. Thicken walled under distended urinary bladder which contains air, Pacheco catheter is present * GI Dr. Damian spoke with IR 07/15/17 and area is NOT amenable to percutaneous drainage. * Surgery Dr. Boyce consulted: no surgical intervention at this time and keep NPO with NGT for now * 07/21: patient intubated yesterday in light of events; with OGT * 07/22: Per GI note, "Repeat CT imaging reviewed by me showing no evidence of abdominal free air or worsening fluid collection, therefore no intervention warranted at this time If prolonged intubation time is anticipated, suggest NGT placement and beginning enteral feeding" * now extubated no NGT needed now on enteral feeding oral (4) Enterococcus faecium Bacteremia * Infectious Disease (Dr. Langford) on the board * Started on Tigecycline 50 mg IV Q12H after 100 mg initial infusion (07/17/17) * Discontinued Meropenem, Ciprofloxicin, and Vancomycin (07/17/17) * 07/14/17: Enterococcus Faecium X2 * Blood Culture: 07/17/17: No growth after 48 hours (1 bottle negative for 4 days/the 2nd one supports Enterococcus Faecium) * Blood Culture: 07/20/17: No growth after 3 days X3 * On contact isolation Status: Acute (5). Atrial Fibrillation/Elevated Troponin * Cardiology (Dr. Chau) on board-->help appreciated * Amiodarone 900mg IV Q 24H * Toprol XL 100mg PO daily (held) * The Atrial Fibrillation is likely secondary to the increased sympathetic tone from the Sepsis and the elevated Troponin likely secondary to the Atrial Fibrillation * Repeat EKG (NSR) 07/21/17 Status: Acute (6) Bilateral Pneumonia * CT Abdomen/Pelvis 07/13/17 showed bibasilar lingular and right middle lobe mild nonspecific infiltrates consistent with atelectasis/pneumonia * As patient was admitted to hospital within the last month (for Left Buttock Abscess) and has been on antibiotics, this is likely Health Care Associated Pneumonia with increased risk for Multidrug Resistence therefore he was treated with the following: * Meropenem 500 mg IV Q6H (07/14/17 through 07/17/17), Ciprofloxacin 400 mg IV Q12H (07/14/17 through 07/16/17),Vancomycin 1 gm IV Q24H (07/14/17 through ) and then patient started on Tigecycline as mentioned above * CT Abdomen/Pelvis w/o contrast 07/19/17: Fluid re-identified, which appears similar in size and likely subcapsular in location. No nathan currently evident with in the collection, Small pneumobila. Moderate bilateral pleural effusions and associated consolidations. Small abomdinla ascites. Small pelvic free fluid. Thicken walled under distended urinary bladder which contains air, Pacheco catheter is present * Chest xray (07/22/17): moderate left pleural effusion with consolidative opacification in the left mid to lower lung zone. trace right pleural effusion with adjacent right basilar consolidation. cardiomeglay. calcification at the aortic knob * Urine Legionella Ag is negative * Urine Strep pneumoniae Ag: non detected * Mycoplasma IgM is 81 (negative) Ig.07 * Influenza A/B is negative * Urine Culture is negative Status: Acute (7). Anion Gap Metabolic Acidosis * Sepsis: CODE SEPSIS was called 07/14/17 * See Assessment and Plans #2, #3, #5 * Due to the severe acidosis he was also started on D5W with 3 amps of NaHCO3 running at 100 ml/hour and this had resolved therefore the D5W NaHCO3 was discontinued 07/15/17. However the Acidosis returned and is likely secondary to the worsening Renal Function/Sepsis. Status: Acute (8). Hyperkalemia * Likely secondary to the Anion Gap Metabolic Acidosis * See Assessment and Plans #2 and #3 * Mild Status: Acute (9). CKD Stage III/Worsening Renal Failure/Hyponatremia * Nephrology Dr. Oconnell * The worsening Renal Function likely secondary to the Sepsis * Worsening Hyponatremia likely dilutional from the IVF initially used to help with the Renal Function. IVF have been discontinued. * Lasix 60 mg IV 2x/day started 07/18/17 to help with the Hyponatremia however there was no significant improvement on 07/19/17 * Despite the Lasix, renal function worsening 07/19/17. Forensic Manager parking regulation enforcement officer Dr. Larsen was notified 07/19/17 and HD orders have been provided by Dr. Larsen to HD Nurse Ramon Garibay to start HD once Dialysis Catheter is placed by the Surgical Team which is planned for morning of 07/20/17. * 07/21: patient started dialysis on 07/20; 800 ML removed * 07/22: patient to have 2nd session of dialysis today; per discussion with nurse Status: Acute on Chronic (10). Headache with Hx CVA Assessment and Plan: * CT Head 07/13/17 was negative for bleed or acute process * If NO surgical/IR intervention will then restart ASA * held Plavix 75 mg PO 1x/day since 07/14/17-->07/22:will need to discuss with surgery if plavix can be restarted in light of stroke hx Status: Acute (11) AD (Alzheimer's disease) Assessment and Plan: * Aricept 10 mg PO daily. Status: Chronic (12) Choledocholithiasis Assessment and Plan: * s/p ERCP with removal of stent and sphincterotomy with Dr. Damian 07/13/17 * 07/22: Per GI note, "Repeat CT imaging reviewed by me showing no evidence of abdominal free air or worsening fluid collection, therefore no intervention warranted at this time If prolonged intubation time is anticipated, suggest NGT placement and beginning enteral feeding" Status: Acute (13) Anemia Assessment and Plan: * Likely secondary to Chronic Disease: CKD Stage III * Resume Ferrous Sulfate 325 mg PO daily. * HgB/Hct are stable Status: Chronic (14) Hx Left Gluteal abscess Assessment and Plan: * Was I&D by surgery team on 06/26/17 * Treated with Bactrim 800/160 PO Q12H for 7 days S/P discharge 06/27/17 Status: Chronic (15) HLD (hyperlipidemia) Assessment and Plan: * Lopid 600 mg PO BID * Patient takes Lipitor 80 mg PO HS which is not on formulary therefore Crestor 10 mg PO HS (renal dosed). Status: Chronic (16) HTN (hypertension) Assessment and Plan: * As the patient's blood pressure is on the low end and he is off Amiodarone Drip since 07/21, therefore the following medications are on HOLD: Amlodipine 10 mg PO daily, Metoprolol XL 100 mg PO daily, and Losartan 100 mg PO daily are all on HOLD * 07/22: patient is off Amiodarone drip since 07/21; but patient is back in atrial fibrillation but is due for second dialysis today. patient's anti- hypertensives remain on hold Status: Chronic (17) Hx of stroke without residual deficits Assessment and Plan: * CT Head 07/13/17 was negative for bleed or acute process * Crestor 10 mg PO HS (renal dosed). * Hold ASA as mentioned above * Hold Plavix 75 mg PO 1x/day since 07/14/17--->will need to discuss with surgery in regards to restart aspirin/plavix Status: Chronic (18) Diabetes Assessment and Plan: * Blood Glucose elevated at times: he is on clear liquids * ISS Q6H * Accuchecks Q6H Status: Chronic (19) History of hypothyroidism Assessment and Plan: * Levothyroxine 50 mcg PO daily * TSH, Free T4 are normal Status: Chronic (20) Overactive bladder Assessment and Plan: * Festerodine 8 mg PO 1x/day * Enlarged Prostate on CT Abdomen/Pelvis * PSA ordered 07/14/17 but I do not see results. I believe he can follow this up as an outpatient. Status: Chronic (21) Hx of glaucoma Assessment and Plan: * Patient's home med Travatan ggt not on formulary. * Started Xalatan ggt in bilateral eyes. Status: Chronic (22) Hx of gastroesophageal reflux (GERD) Assessment and Plan: * Protonix 40 mg IV daily Status: Chronic (23) Prophylactic measure Assessment and Plan: * Protonix 40 mg daily * SCDs * Hold chemical anticoagulation for now for reasons mentioned above * Ascorbic Acid 250 mg PO daily * Florastor 250 mg PO 2x/day * Zofran 4 mg IV Q6H PRN N/V * Morphine 0.5 mg IV Q6H PRN Severe Pain with Holding Parameters (hesitant to give anything more due to the low end of normal Blood Pressure) * Intubated on 07/20/17; extubated 07/22/17; on Pressor 07/21; off sedation; off amiodarone IV 07/21
--- NOTE | 2017-07-28 12:00 | CP.PCM.PN ---
Subjective - Date & Time of Evaluation Date of Evaluation: 07/28/17 Time of Evaluation: 07:00 - Subjective Subjective: more responsive awake able to participate in PT cultures repeated are neg Objective - Vital Signs/Intake and Output Vital Signs (last 24 hours): Temp Pulse Resp BP Pulse Ox 98.3 F 98 H 21 109/50 L 99 07/28/17 08:00 07/28/17 08:00 07/28/17 08:00 07/28/17 08:00 07/28/17 08:00 Intake and Output: 07/28/17 07/28/17 06:59 18:59 Intake Total 440 150 Output Total 250 Balance 190 150 - Medications Medications: Current Medications Albuterol Sulfate (Albuterol 0.042% Inhal Ruby (1.25mg/3ml) Ud) 1.25 mg INH RQ6 PRN PRN Reason: Wheezing Last Admin: 07/28/17 07:05 Dose: 1.25 mg Ascorbic Acid (Vitamin C 250 Mg Tab) 250 mg PO DAILY [facility] Last Admin: 07/28/17 09:17 Dose: 250 mg Aspirin (Aspirin Chewable) 81 mg PO DAILY [facility] Last Admin: 07/28/17 09:19 Dose: 81 mg Benzocaine/Menthol (Cepacol Sore Throat) 1 love MT Q2 PRN PRN Reason: Sore Throat Last Admin: 07/25/17 09:12 Dose: 1 love Calcium Acetate (Phoslo) 1,334 mg PO TID [facility] Last Admin: 07/28/17 09:16 Dose: 1,334 mg Clopidogrel Bisulfate (Plavix) 75 mg PO DAILY [facility] Last Admin: 07/28/17 09:19 Dose: 75 mg Cyproheptadine HCl (Periactin) 4 mg PO BID [facility] Last Admin: 07/28/17 09:17 Dose: 4 mg Donepezil HCl (Aricept) 10 mg PO HS [facility] Last Admin: 07/27/17 21:15 Dose: 10 mg Epoetin Romel (Procrit) 10,000 unit IV MWF [facility] Last Admin: 07/27/17 11:18 Dose: 10,000 unit Ferrous Sulfate (Feosol) 325 mg PO Q12H [facility] Last Admin: 07/28/17 06:22 Dose: 325 mg Home Med (Fesoterodine Fumarate [Toviaz]) 8 mg PO DAILY [facility] Hydromorphone HCl (Dilaudid) 0.5 mg IVP Q4 PRN PRN Reason: Pain, severe (8-10) Last Admin: 07/28/17 03:51 Dose: 0.5 mg Tigecycline 50 mg/ Dextrose 100 mls @ 100 mls/hr IVPB Q12H [facility] Last Admin: 07/28/17 00:13 Dose: 100 mls/hr Metronidazole 250 mg/ (Miscellaneous) 50 mls @ 100 mls/hr IVPB Q8 [facility] Last Admin: 07/28/17 05:06 Dose: 100 mls/hr Insulin Human Regular (Novolin R) 0 unit SC ACHS [facility] PRN Reason: Protocol Last Admin: 07/28/17 08:02 Dose: Not Given Latanoprost (Xalatan Opht) 0 ml OU HS [facility] Last Admin: 07/27/17 21:17 Dose: 2.5 ml Levothyroxine Sodium (Synthroid) 50 mcg PO DAILY@0630 [facility] Last Admin: 07/28/17 06:22 Dose: 50 mcg Metoprolol Succinate (Toprol Xl) 100 mg PO DAILY [facility] Last Admin: 07/14/17 13:41 Dose: 100 mg Ondansetron HCl (Zofran Inj) 4 mg IVP Q6 PRN PRN Reason: Nausea/Vomiting Pantoprazole Sodium (Protonix Ec Tab) 40 mg PO DAILY [facility] Last Admin: 07/28/17 09:16 Dose: 40 mg Polyethylene Glycol (Miralax) 17 gm PO DAILY [facility] Last Admin: 07/28/17 09:12 Dose: Not Given Rosuvastatin Calcium (Crestor) 10 mg PO HS [facility] Last Admin: 07/27/17 21:15 Dose: 10 mg Saccharomyces Boulardii (Florastor) 250 mg PO BID [facility] Last Admin: 07/28/17 09:16 Dose: 250 mg - Labs Labs: 07/27/17 09:55 07/27/17 09:55 PT 14.3 SECONDS (9.7-12.2) H 07/16/17 04:00 INR 1.3 07/16/17 04:00 APTT 29 SECONDS (21-34) 07/13/17 20:04 - Constitutional Appears: Non-toxic - Head Exam Head Exam: NORMOCEPHALIC - Eye Exam Pupil Exam: NORMAL ACCOMODATION - ENT Exam ENT Exam: Mucous Membranes Dry - Neck Exam Neck Exam: absent: Lymphadenopathy - Respiratory Exam Respiratory Exam: Decreased Breath Sounds, Clear to Ausculation Bilateral - Cardiovascular Exam Cardiovascular Exam: REGULAR RHYTHM, +S1, +S2 - GI/Abdominal Exam GI & Abdominal Exam: Distended, Soft - Rectal Exam Rectal Exam: Deferred - Exam Exam: NORMAL INSPECTION Assessment and Plan (1) JAY JAY (acute kidney injury) Status: Acute (2) CVA, old, cognitive deficits Status: Acute (3) Chronic kidney disease, stage III (moderate) Status: Acute (4) Headache Status: Acute (5) Hx of gastroesophageal reflux (GERD) Status: Acute
--- NOTE | 2017-07-28 12:04 | CP.PCM.PN ---
Subjective - Date & Time of Evaluation Date of Evaluation: 07/28/17 Time of Evaluation: 12:02 - Subjective Subjective: awake alert up in chair [place] catheter, uop 700cc charted poor historian. c/o pain all over incl abdomen chest and head denies any nasuea vomiting cough sob fevers Objective - Vital Signs/Intake and Output Vital Signs (last 24 hours): Temp Pulse Resp BP Pulse Ox 98.3 F 98 H 21 109/50 L 99 07/28/17 08:00 07/28/17 08:00 07/28/17 08:00 07/28/17 08:00 07/28/17 08:00 Intake and Output: 07/28/17 07/28/17 06:59 18:59 Intake Total 440 150 Output Total 250 Balance 190 150 - Medications Medications: Current Medications Albuterol Sulfate (Albuterol 0.042% Inhal Ruby (1.25mg/3ml) Ud) 1.25 mg INH RQ6 PRN PRN Reason: Wheezing Last Admin: 07/28/17 07:05 Dose: 1.25 mg Ascorbic Acid (Vitamin C 250 Mg Tab) 250 mg PO DAILY [facility] Last Admin: 07/28/17 09:17 Dose: 250 mg Aspirin (Aspirin Chewable) 81 mg PO DAILY [facility] Last Admin: 07/28/17 09:19 Dose: 81 mg Benzocaine/Menthol (Cepacol Sore Throat) 1 love MT Q2 PRN PRN Reason: Sore Throat Last Admin: 07/25/17 09:12 Dose: 1 love Calcium Acetate (Phoslo) 1,334 mg PO TID [facility] Last Admin: 07/28/17 09:16 Dose: 1,334 mg Clopidogrel Bisulfate (Plavix) 75 mg PO DAILY [facility] Last Admin: 07/28/17 09:19 Dose: 75 mg Cyproheptadine HCl (Periactin) 4 mg PO BID [facility] Last Admin: 07/28/17 09:17 Dose: 4 mg Donepezil HCl (Aricept) 10 mg PO HS [facility] Last Admin: 07/27/17 21:15 Dose: 10 mg Epoetin Romel (Procrit) 10,000 unit IV MWF [facility] Last Admin: 07/27/17 11:18 Dose: 10,000 unit Ferrous Sulfate (Feosol) 325 mg PO Q12H [facility] Last Admin: 07/28/17 06:22 Dose: 325 mg Home Med (Fesoterodine Fumarate [Toviaz]) 8 mg PO DAILY [facility] Hydromorphone HCl (Dilaudid) 0.5 mg IVP Q4 PRN PRN Reason: Pain, severe (8-10) Last Admin: 07/28/17 03:51 Dose: 0.5 mg Tigecycline 50 mg/ Dextrose 100 mls @ 100 mls/hr IVPB Q12H [facility] Last Admin: 07/28/17 00:13 Dose: 100 mls/hr Metronidazole 250 mg/ (Miscellaneous) 50 mls @ 100 mls/hr IVPB Q8 [facility] Last Admin: 07/28/17 05:06 Dose: 100 mls/hr Insulin Human Regular (Novolin R) 0 unit SC ACHS [facility] PRN Reason: Protocol Last Admin: 07/28/17 08:02 Dose: Not Given Latanoprost (Xalatan Opht) 0 ml OU HS [facility] Last Admin: 07/27/17 21:17 Dose: 2.5 ml Levothyroxine Sodium (Synthroid) 50 mcg PO DAILY@0630 [facility] Last Admin: 07/28/17 06:22 Dose: 50 mcg Metoprolol Succinate (Toprol Xl) 100 mg PO DAILY [facility] Last Admin: 07/14/17 13:41 Dose: 100 mg Ondansetron HCl (Zofran Inj) 4 mg IVP Q6 PRN PRN Reason: Nausea/Vomiting Pantoprazole Sodium (Protonix Ec Tab) 40 mg PO DAILY [facility] Last Admin: 07/28/17 09:16 Dose: 40 mg Polyethylene Glycol (Miralax) 17 gm PO DAILY [facility] Last Admin: 07/28/17 09:12 Dose: Not Given Rosuvastatin Calcium (Crestor) 10 mg PO HS [facility] Last Admin: 07/27/17 21:15 Dose: 10 mg Saccharomyces Boulardii (Florastor) 250 mg PO BID [facility] Last Admin: 07/28/17 09:16 Dose: 250 mg - Labs Labs: 07/27/17 09:55 07/27/17 09:55 PT 14.3 SECONDS (9.7-12.2) H 07/16/17 04:00 INR 1.3 07/16/17 04:00 APTT 29 SECONDS (21-34) 10/30/17 20:04 - Constitutional Appears: No Acute Distress, Confused, Chronically Ill - Head Exam Head Exam: NORMAL INSPECTION - Eye Exam Eye Exam: Normal appearance - ENT Exam ENT Exam: Mucous Membranes Moist, Normal Exam - Neck Exam Neck Exam: Normal Inspection - Respiratory Exam Respiratory Exam: Decreased Breath Sounds (rt chest permcath), NORMAL BREATHING PATTERN - Cardiovascular Exam Cardiovascular Exam: REGULAR RHYTHM, RRR - GI/Abdominal Exam GI & Abdominal Exam: Distended, Soft - Extremities Exam Extremities Exam: Normal Inspection - Neurological Exam Neurological Exam: Alert, Awake - Psychiatric Exam Psychiatric exam: Normal Affect, Normal Mood - Skin Skin Exam: Normal Color, Warm Assessment and Plan (1) JAY JAY (acute kidney injury) Status: Acute (2) CVA, old, cognitive deficits Status: Acute (3) Hyponatremia with excess extracellular fluid volume Status: Acute (4) AD (Alzheimer's disease) Status: Acute - Assessment and Plan (Free Text) Assessment: monitor renal function closely, watch for recovery consider hd tomorrow depending on chem 24 hour creatinine clearance
[2017-07-28] MEDS: Latanoprost 2.5 ml Opht Soln OU SCH (22:00)
[2017-07-29] MEDS: Tigecycline 50 MG in Dextrose 5% In Water 100 ML IVPB SCH ×2 (01:04→13:00)
[2017-07-29] MEDS: metroNIDAZOLE IV 500 mg/100 ml 250 MG in Premixed IV 1 EA IVPB SCH ×3 (05:04→21:36)
[2017-07-29] MEDS: Levothyroxine 50 MCG TAB PO SCH (06:22)
[2017-07-29 06:25] LABS: BASO # 0.1 K/uL (0.0-0.2); BASO % 1.2 % (0.0-2.0); EOS # 0.4 K/uL (0.0-0.7); EOS % 3.2 % (0.0-4.0); HEMATOCRIT 25.5 % (35.0-51.0); LYMPH # 1.7 K/uL (1.0-4.3); LYMPH % 15.4 % (20.0-40.0); MEAN CELL VOLUME 83.1 fL (80.0-94.0); MEAN CORPUSCULAR HEMOGLOBIN 27.7 pg (27.0-31.0); MEAN CORPUSCULAR HGB CONC 33.4 g/dL (33.0-37.0); MEAN PLATELET VOLUME 9.5 fL (7.2-11.7); MONO # 1.9 K/uL (0.0-0.8); MONO % 17.1 % (0.0-10.0); RED CELL DISTRIBUTION WIDTH 16.1 % (11.5-14.5); WHITE BLOOD COUNT 10.9 K/uL (4.8-10.8)
[2017-07-29 06:41] LABS: BILIRUBIN,TOTAL 1.1 mg/dL (0.2-1.3); CALCIUM 7.7 mg/dl (8.6-10.4); PHOSPHOROUS 3.8 mg/dL (2.5-4.5); POTASSIUM 3.9 mmol/L (3.6-5.2); TOTAL PROTEIN 4.6 g/dL (6.3-8.3)
--- NOTE | 2017-07-29 07:51 | CP.PCM.PN ---
<Dianne Salinas - Last Filed: 07/29/17 07:47> Subjective - Date & Time of Evaluation Date of Evaluation: 07/29/17 Time of Evaluation: 07:47 - Subjective Subjective: Gastroenterology Fellow/PGY5 Progress Note Patient tolerating soft diet. Continues to have mild abdominal pain. Two bowel movements yesterday. Nursing notes no acute events overnight. A 12-point review of systems not completed due to advanced Dementia. Objective - Vital Signs/Intake and Output Vital Signs (last 24 hours): Temp Pulse Resp BP Pulse Ox 98 F 82 26 H 135/57 L 99 07/29/17 03:58 07/29/17 04:01 07/29/17 04:01 07/29/17 04:01 07/29/17 04:01 Intake and Output: 07/29/17 07/29/17 06:59 18:59 Intake Total 300 Output Total 200 Balance 100 - Medications Medications: Current Medications Albuterol Sulfate (Albuterol 0.042% Inhal Ruby (1.25mg/3ml) Ud) 1.25 mg INH RQ6 PRN PRN Reason: Wheezing Last Admin: 07/28/17 07:05 Dose: 1.25 mg Ascorbic Acid (Vitamin C 250 Mg Tab) 250 mg PO DAILY [facility] Last Admin: 07/28/17 09:17 Dose: 250 mg Aspirin (Aspirin Chewable) 81 mg PO DAILY [facility] Last Admin: 07/28/17 09:19 Dose: 81 mg Benzocaine/Menthol (Cepacol Sore Throat) 1 love MT Q2 PRN PRN Reason: Sore Throat Last Admin: 07/25/17 09:12 Dose: 1 love Calcium Acetate (Phoslo) 1,334 mg PO TID [facility] Last Admin: 07/28/17 17:26 Dose: 1,334 mg Clopidogrel Bisulfate (Plavix) 75 mg PO DAILY [facility] Last Admin: 07/28/17 09:19 Dose: 75 mg Cyproheptadine HCl (Periactin) 4 mg PO BID [facility] Last Admin: 07/28/17 17:28 Dose: 4 mg Donepezil HCl (Aricept) 10 mg PO HS [facility] Last Admin: 07/28/17 21:17 Dose: 10 mg Epoetin Romel (Procrit) 10,000 unit IV MWF [facility] Last Admin: 07/27/17 11:18 Dose: 10,000 unit Ferrous Sulfate (Feosol) 325 mg PO Q12H [facility] Last Admin: 07/29/17 06:22 Dose: 325 mg Home Med (Fesoterodine Fumarate [Toviaz]) 8 mg PO DAILY [facility] Hydromorphone HCl (Dilaudid) 0.5 mg IVP Q4 PRN PRN Reason: Pain, severe (8-10) Last Admin: 07/28/17 18:52 Dose: 0.5 mg Tigecycline 50 mg/ Dextrose 100 mls @ 100 mls/hr IVPB Q12H [facility] Last Admin: 07/29/17 01:04 Dose: 100 mls/hr Metronidazole 250 mg/ (Miscellaneous) 50 mls @ 100 mls/hr IVPB Q8 [facility] Last Admin: 07/29/17 05:04 Dose: 100 mls/hr Insulin Human Regular (Novolin R) 0 unit SC ACHS DARINEL PRN Reason: Protocol Last Admin: 07/28/17 21:18 Dose: Not Given Latanoprost (Xalatan Opht) 0 ml OU HS [facility] Last Admin: 07/28/17 22:00 Dose: 2.5 ml Levothyroxine Sodium (Synthroid) 50 mcg PO DAILY@0630 [facility] Last Admin: 07/29/17 06:22 Dose: 50 mcg Metoprolol Succinate (Toprol Xl) 100 mg PO DAILY [facility] Last Admin: 07/14/17 13:41 Dose: 100 mg Ondansetron HCl (Zofran Inj) 4 mg IVP Q6 PRN PRN Reason: Nausea/Vomiting Pantoprazole Sodium (Protonix Ec Tab) 40 mg PO DAILY [facility] Last Admin: 07/28/17 09:16 Dose: 40 mg Polyethylene Glycol (Miralax) 17 gm PO DAILY [facility] Last Admin: 07/28/17 09:12 Dose: Not Given Rosuvastatin Calcium (Crestor) 10 mg PO HS [facility] Last Admin: 07/28/17 21:17 Dose: 10 mg Saccharomyces Boulardii (Florastor) 250 mg PO BID [facility] Last Admin: 07/28/17 17:26 Dose: 250 mg - Labs Labs: 07/29/17 06:08 07/29/17 06:08 PT 14.3 SECONDS (9.7-12.2) H 07/16/17 04:00 INR 1.3 07/16/17 04:00 APTT 29 SECONDS (21-34) 07/13/17 20:04 - Constitutional Appears: Non-toxic, No Acute Distress - Head Exam Head Exam: ATRAUMATIC, NORMOCEPHALIC - Eye Exam Eye Exam: EOMI, PERRL Pupil Exam: PERRL. absent: Miosis, Mydriatic - ENT Exam ENT Exam: Mucous Membranes Moist, Normal Oropharynx - Neck Exam Neck Exam: Full ROM, Normal Inspection - Respiratory Exam Respiratory Exam: Clear to Ausculation Bilateral. absent: Rales, Rhonchi, Wheezes - Cardiovascular Exam Cardiovascular Exam: +S1, +S2. absent: Gallop, Rubs - GI/Abdominal Exam GI & Abdominal Exam: Soft, Tenderness, Normal Bowel Sounds. absent: Distended, Firm, Guarding, Rigid, Organomegaly, Rebound Additional comments: mild diffuse discomfort to palpation - Extremities Exam Extremities Exam: Normal Inspection. absent: Pedal Edema - Neurological Exam Neurological Exam: Alert, Awake - Psychiatric Exam Psychiatric exam: Normal Affect, Normal Mood - Skin Skin Exam: Dry, Intact, Normal Color, Warm Assessment and Plan - Assessment and Plan (Free Text) Assessment: 82 year old male with history of Diabetes, Hyperlipidemia, Hypertension, Hypothyroidism, CKD, Alzheimer's Dementia, CVA on Plavix, and cholangitis s/p ERCP with CBD stent (04/2017). Active treatment of renal failure on HD, resolved for hypoxic VDRF s/p PEA arrest with ROSC (07/20- post extubation-07/22) HCAP, E. faecium Bacteremia with negative repeat blood cultures to date, and ERCP guidewire pneumoperitoneum with resolved hepatic subcapsular/extracapsular fluid collection on CT A/P 07/25/17. Plan: >tolerating soft diet >continue Miralax daily >ID managing- broad spectrum antibiotics >nephrology managing- on hemodialysis >subcapsular fluid collection resolved <Gavino Damian - Last Filed: 07/29/17 14:08> Objective - Vital Signs/Intake and Output Vital Signs (last 24 hours): Temp Pulse Resp BP Pulse Ox 98.2 F 90 23 111/56 L 100 07/29/17 12:45 07/29/17 12:45 07/29/17 12:45 07/29/17 12:45 07/29/17 12:45 Intake and Output: 11/15/17 11/15/17 06:59 18:59 Intake Total 300 120 Output Total 200 Balance 100 120 - Medications Medications: Current Medications Albuterol Sulfate (Albuterol 0.042% Inhal Ruby (1.25mg/3ml) Ud) 1.25 mg INH RQ6 PRN PRN Reason: Wheezing Last Admin: 07/28/17 07:05 Dose: 1.25 mg Ascorbic Acid (Vitamin C 250 Mg Tab) 250 mg PO DAILY [facility] Last Admin: 07/29/17 11:44 Dose: 250 mg Aspirin (Aspirin Chewable) 81 mg PO DAILY [facility] Last Admin: 07/29/17 11:42 Dose: 81 mg Benzocaine/Menthol (Cepacol Sore Throat) 1 love MT Q2 PRN PRN Reason: Sore Throat Last Admin: 07/25/17 09:12 Dose: 1 love Calcium Acetate (Phoslo) 1,334 mg PO TID [facility] Last Admin: 07/29/17 13:49 Dose: 1,334 mg Clopidogrel Bisulfate (Plavix) 75 mg PO DAILY [facility] Last Admin: 07/29/17 11:12 Dose: 75 mg Cyproheptadine HCl (Periactin) 4 mg PO BID [facility] Last Admin: 07/29/17 11:23 Dose: 4 mg Donepezil HCl (Aricept) 10 mg PO HS [facility] Last Admin: 07/28/17 21:17 Dose: 10 mg Epoetin Romel (Procrit) 10,000 unit IV MWF [facility] Last Admin: 07/29/17 11:43 Dose: 10,000 unit Ferrous Sulfate (Feosol) 325 mg PO Q12H [facility] Last Admin: 07/29/17 06:22 Dose: 325 mg Heparin Sodium (Porcine) (Heparin) 5,000 units SC Q12 [facility] Last Admin: 07/29/17 11:15 Dose: 5,000 units Home Med (Fesoterodine Fumarate [Toviaz]) 8 mg PO DAILY [facility] Hydromorphone HCl (Dilaudid) 0.5 mg IVP Q4 PRN PRN Reason: Pain, severe (8-10) Last Admin: 07/29/17 11:00 Dose: 0.5 mg Tigecycline 50 mg/ Dextrose 100 mls @ 100 mls/hr IVPB Q12H [facility] Last Admin: 07/29/17 13:00 Dose: 100 mls/hr Metronidazole 250 mg/ (Miscellaneous) 50 mls @ 100 mls/hr IVPB Q8 [facility] Last Admin: 07/29/17 13:43 Dose: 100 mls/hr Insulin Human Regular (Novolin R) 0 unit SC ACHS DARINEL PRN Reason: Protocol Last Admin: 07/29/17 11:40 Dose: Not Given Latanoprost (Xalatan Opht) 0 ml OU HS [facility] Last Admin: 07/28/17 22:00 Dose: 2.5 ml Levothyroxine Sodium (Synthroid) 50 mcg PO DAILY@0630 [facility] Last Admin: 07/29/17 06:22 Dose: 50 mcg Metoprolol Succinate (Toprol Xl) 25 mg PO DAILY [facility] Last Admin: 07/29/17 11:18 Dose: 25 mg Ondansetron HCl (Zofran Inj) 4 mg IVP Q6 PRN PRN Reason: Nausea/Vomiting Last Admin: 07/29/17 13:43 Dose: 4 mg Pantoprazole Sodium (Protonix Ec Tab) 40 mg PO DAILY [facility] Last Admin: 07/29/17 11:13 Dose: 40 mg Polyethylene Glycol (Miralax) 17 gm PO DAILY [facility] Last Admin: 07/29/17 11:19 Dose: 17 gm Rosuvastatin Calcium (Crestor) 10 mg PO HS [facility] Last Admin: 07/28/17 21:17 Dose: 10 mg Saccharomyces Boulardii (Florastor) 250 mg PO BID [facility] Last Admin: 07/29/17 11:13 Dose: 250 mg - Labs Labs: 07/29/17 06:08 07/29/17 06:08 PT 14.3 SECONDS (9.7-12.2) H 07/16/17 04:00 INR 1.3 07/16/17 04:00 APTT 29 SECONDS (21-34) 07/13/17 20:04 Attending/Attestation - Attestation I have personally seen and examined this patient.: Yes I have fully participated in the care of the patient.: Yes I have reviewed all pertinent clinical information, including history, physical exam and plan: Yes Notes (Text): 07/29/17 14:07 82 year old male with h/o DM, HTN, HLD, Hypothyroidism, Dementia, CKD, h/o cholangitis s/p ERCP with stent, subsequent ERCP complicated by guidewire perforation, bacteremia/sepsis, renal failure, dialysis, respiratory failure requiring mechanical ventilation, now improving. 1. Perforation of bile duct 2. Other injury of liver Plan: -no abdominal pain, tolerating soft diet, abdominal exam improved -afebrile -continue abx per ID -supportive measures -perforation/fluid collection is resolved on follow up imaging and abdominal exam is improved
[2017-07-29] MEDS: (Novolin R) Insulin Human Regular 100 units/ml vial SC SCH ×4 (08:00→16:56)
--- NOTE | 2017-07-29 08:54 | CP.PCM.PN ---
Subjective - Date & Time of Evaluation Date of Evaluation: 07/29/17 Time of Evaluation: 08:50 - Subjective Subjective: Medical Attending Note: Patient seen and examined at bedside. No acute events noted overnight. Patient seen waking up from sleep. Patient noting he feels chest pain, gerd, and abdominal pain. Denies other complaints. No family present at bedside. Objective - Vital Signs/Intake and Output Vital Signs (last 24 hours): Temp Pulse Resp BP Pulse Ox 98 F 82 26 H 135/57 L 99 07/29/17 03:58 07/29/17 04:01 07/29/17 04:01 07/29/17 04:01 07/29/17 04:01 Intake and Output: 07/29/17 07/29/17 06:59 18:59 Intake Total 300 Output Total 200 Balance 100 - Medications Medications: Current Medications Albuterol Sulfate (Albuterol 0.042% Inhal Ruby (1.25mg/3ml) Ud) 1.25 mg INH RQ6 PRN PRN Reason: Wheezing Last Admin: 07/28/17 07:05 Dose: 1.25 mg Ascorbic Acid (Vitamin C 250 Mg Tab) 250 mg PO DAILY [facility] Last Admin: 07/28/17 09:17 Dose: 250 mg Aspirin (Aspirin Chewable) 81 mg PO DAILY [facility] Last Admin: 07/28/17 09:19 Dose: 81 mg Benzocaine/Menthol (Cepacol Sore Throat) 1 love MT Q2 PRN PRN Reason: Sore Throat Last Admin: 07/25/17 09:12 Dose: 1 love Calcium Acetate (Phoslo) 1,334 mg PO TID [facility] Last Admin: 07/28/17 17:26 Dose: 1,334 mg Clopidogrel Bisulfate (Plavix) 75 mg PO DAILY [facility] Last Admin: 07/28/17 09:19 Dose: 75 mg Cyproheptadine HCl (Periactin) 4 mg PO BID [facility] Last Admin: 07/28/17 17:28 Dose: 4 mg Donepezil HCl (Aricept) 10 mg PO HS [facility] Last Admin: 07/28/17 21:17 Dose: 10 mg Epoetin Romel (Procrit) 10,000 unit IV MWF [facility] Last Admin: 07/27/17 11:18 Dose: 10,000 unit Ferrous Sulfate (Feosol) 325 mg PO Q12H [facility] Last Admin: 07/29/17 06:22 Dose: 325 mg Home Med (Fesoterodine Fumarate [Toviaz]) 8 mg PO DAILY [facility] Hydromorphone HCl (Dilaudid) 0.5 mg IVP Q4 PRN PRN Reason: Pain, severe (8-10) Last Admin: 07/28/17 18:52 Dose: 0.5 mg Tigecycline 50 mg/ Dextrose 100 mls @ 100 mls/hr IVPB Q12H [facility] Last Admin: 07/29/17 01:04 Dose: 100 mls/hr Metronidazole 250 mg/ (Miscellaneous) 50 mls @ 100 mls/hr IVPB Q8 [facility] Last Admin: 07/29/17 05:04 Dose: 100 mls/hr Insulin Human Regular (Novolin R) 0 unit SC ACHS [facility] PRN Reason: Protocol Last Admin: 07/28/17 21:18 Dose: Not Given Latanoprost (Xalatan Opht) 0 ml OU HS [facility] Last Admin: 07/28/17 22:00 Dose: 2.5 ml Levothyroxine Sodium (Synthroid) 50 mcg PO DAILY@0630 [facility] Last Admin: 07/29/17 06:22 Dose: 50 mcg Metoprolol Succinate (Toprol Xl) 100 mg PO DAILY [facility] Last Admin: 07/14/17 13:41 Dose: 100 mg Ondansetron HCl (Zofran Inj) 4 mg IVP Q6 PRN PRN Reason: Nausea/Vomiting Pantoprazole Sodium (Protonix Ec Tab) 40 mg PO DAILY [facility] Last Admin: 07/28/17 09:16 Dose: 40 mg Polyethylene Glycol (Miralax) 17 gm PO DAILY [facility] Last Admin: 07/28/17 09:12 Dose: Not Given Rosuvastatin Calcium (Crestor) 10 mg PO HS [facility] Last Admin: 07/28/17 21:17 Dose: 10 mg Saccharomyces Boulardii (Florastor) 250 mg PO BID [facility] Last Admin: 07/28/17 17:26 Dose: 250 mg - Labs Labs: 07/29/17 06:08 07/29/17 06:08 PT 14.3 SECONDS (9.7-12.2) H 07/16/17 04:00 INR 1.3 07/16/17 04:00 APTT 29 SECONDS (21-34) 07/13/17 20:04 - Constitutional Appears: Non-toxic, No Acute Distress - Head Exam Head Exam: NORMAL INSPECTION Additional comments: Prevalon boots over lower extremities b/l Permcath site clean/dry/intact - Eye Exam Eye Exam: EOMI - ENT Exam ENT Exam: Mucous Membranes Moist - Cardiovascular Exam Cardiovascular Exam: Irregular Rhythm, +S1, +S2 - GI/Abdominal Exam GI & Abdominal Exam: Distended, Soft, Tenderness (patient reports he feels pain on palpation), Normal Bowel Sounds. absent: Firm, Guarding, Rigid, Rebound - Extremities Exam Extremities Exam: absent: Pedal Edema, Tenderness - Neurological Exam Neurological Exam: Alert, Awake - Skin Skin Exam: Dry, Intact, Normal Color, Warm Assessment and Plan - Assessment and Plan (Free Text) Assessment: Assessment & Plan (1) Cardiac Arrest PEA on 07/20/17 Assessment and Plan: * Status post-procedure; patient went into PEA on 07/20 ROSC returned; intubated 07/20/17-[id number] * Chest xray (07/22/17): moderate left pleural effusion with consolidative opacification in the left mid to lower lung zone. trace right pleural effusion with adjacent right basilar consolidation. cardiomeglay. calcification at the aortic knob * 07/29; patient is awake, alert, eating food at bedside; PT note recommending patient to subacute rehab Status: Acute (2) Chest pain Assessment and Plan: * Patient with atypical chest pain history * Cardio Dr. Chau does not feel that this is cardiac related * PEA on 07/21 * Per cardio note: patient does not appear to have CHF, will trend troponin * Discussed with cardio; no amiodarone needed * TSH, Free T4 are normal * ECHO 07/13/17: LV EF is WNL, moderate concentric LVH, Grade I abnormal relaxation pattern Status: Acute (3) Cholangitis--Resolved ERCP Guidewire Perforation of Liver Capsule vs Peripheral Bile Duct Assessment and Plan: * GI (Dr. Damian) on board-->help appreciated * General surgery (Dr. Boyce) on board-->help appreciated * s/p ERCP with removal of stent and sphincterotomy with Dr. Damian 07/13/17 * CXR 07/13/17 does not show air under diaphragm. * Chest CT 07/13/17 shows pneumobilia as well as possible free air beneath Right Hemidiaphragm within Paraesophagel soft tissues. * CT Abdomen/Pelvis 07/13/17 shows gas fluid and stranding in the subcapsular and extracapsular area around Left Lobe Liver. * CT Abdomen/Pelvis on 07/14/17 showed gas and fluid around left lobe liver and along inferior vena cava that is unchanged, no evidence of extravasation of oral contrast from stomach or duodenem. * Abdomen X Ray 07/16/17 showed NO obstruction. * CT Abdomen/Pelvis w/o contrast 07/19/17: Fluid re-identified, which appears similar in size and likely subcapsular in location. No nathan currently evident with in the collection, Small pneumobila. Moderate bilateral pleural effusions and associated consolidations. Small abomdinla ascites. Small pelvic free fluid. Thicken walled under distended urinary bladder which contains air, Pacheco catheter is present * Ct abdomen/pelvis 07/25/17 PO contrast: no acute abdominal or pelvic abnormality; Small right and moderate left pleural effusion. Fatty liver. Small amount of air in the central biliary radicles is likely post surgical in etiology. * GI Dr. Damian spoke with IR 07/15/17 and area is NOT amenable to percutaneous drainage. * GI has signed off as of 07/28/17; No further planned GI intervention. Repeat CT Abdomen 07/25: fluid collection resolved * General surgery has signed off 07/27/17. No further planned intervention from Surgery Status: Stable (4) Enterococcus faecium Bacteremia * Infectious Disease (Dr. Langford) on the board * Started on Tigecycline 50 mg IV Q12H after 100 mg initial infusion (07/17/17) * Discontinued Meropenem, Ciprofloxicin, and Vancomycin (07/17/17) * 07/14/17: Enterococcus Faecium X2 * Blood Culture: 07/17/17: No growth after 48 hours (1 bottle negative for 4 days/the 2nd one supports Enterococcus Faecium) * Blood Culture: 07/20/17: No growth after 5 days * On contact isolation * Flagyl 250mg IVPB Q8H (active since 07/18/17; Day 11) * Tigecycline 50mg IV Q12h (active since 07/18/17; Day 11) * Florastor 250mg PO BID Status: Acute (5). Atrial Fibrillation/Elevated Troponin * Cardiology (Dr. Chau) on board-->help appreciated * The Atrial Fibrillation is likely secondary to the increased sympathetic tone from the Sepsis and the elevated Troponin likely secondary to the Atrial Fibrillation * Repeat EKG (NSR) 07/21/17 * Restart Toprol XL 25mg PO daily (patient was off beta-blocer prior secondary to cardiac arrest on 07/20/17) * Aspirin 81mg PO daily Status: Acute (6) Bilateral Pneumonia * CT Abdomen/Pelvis 07/13/17 showed bibasilar lingular and right middle lobe mild nonspecific infiltrates consistent with atelectasis/pneumonia * As patient was admitted to hospital within the last month (for Left Buttock Abscess) and has been on antibiotics, this is likely Health Care Associated Pneumonia with increased risk for Multidrug Resistence therefore he was treated with the following: * Meropenem 500 mg IV Q6H (07/14/17 through 07/17/17), Ciprofloxacin 400 mg IV Q12H (07/14/17 through 07/16/17),Vancomycin 1 gm IV Q24H (07/14/17 through ) and then patient started on Tigecycline as mentioned above * CT Abdomen/Pelvis w/o contrast 07/19/17: Fluid re-identified, which appears similar in size and likely subcapsular in location. No nathan currently evident with in the collection, Small pneumobila. Moderate bilateral pleural effusions and associated consolidations. Small abomdinla ascites. Small pelvic free fluid. Thicken walled under distended urinary bladder which contains air, Pacheco catheter is present * Chest xray (07/22/17): moderate left pleural effusion with consolidative opacification in the left mid to lower lung zone. trace right pleural effusion with adjacent right basilar consolidation. cardiomeglay. calcification at the aortic knob * Chest xray (07/23/17): interval removal of endotracheal and BG tube, right central venous catheter extending to the right SVC, worsening now near complete opacification of the left hemithorax with associated large left pleural effusion. Worsening prominent consolidative changes at the right lung base. Cardiomegaly. Calcification at aortic knob. Degenerative changes in the spine and shoulders. prominently dilated/distended loops of bowel in the upper abdomen * Chest xray ordered today s/p dialysis today * Urine Legionella Ag is negative * Urine Strep pneumoniae Ag: non detected * Mycoplasma IgM is 81 (negative) Ig.07 * Influenza A/B is negative * Urine Culture is negative * Flagyl 250mg IVPB Q8H (active since 07/18/17; Day 11) * Tigecycline 50mg IV Q12h (active since 07/18/17; Day 11) * Florastor 250mg PO BID Status: Acute (7). Anion Gap Metabolic Acidosis * Sepsis: CODE SEPSIS was called 07/14/17 * See Assessment and Plans #2, #3, #5 * Due to the severe acidosis he was also started on D5W with 3 amps of NaHCO3 running at 100 ml/hour and this had resolved therefore the D5W NaHCO3 was discontinued 07/15/17. However the Acidosis returned and is likely secondary to the worsening Renal Function/Sepsis. Status: Acute (8). Hyperkalemia * Likely secondary to the Anion Gap Metabolic Acidosis * See Assessment and Plans #2 and #3 * Mild Status: Acute (9). CKD Stage III/Worsening Renal Failure/Hyponatremia * Nephrology Dr. Oconnell * The worsening Renal Function likely secondary to the Sepsis * Worsening Hyponatremia likely dilutional from the IVF initially used to help with the Renal Function. IVF have been discontinued. * Lasix 60 mg IV 2x/day started 07/18/17 to help with the Hyponatremia however there was no significant improvement on 07/19/17 * Despite the Lasix, renal function worsening 07/19/17. [employer] recreation coordinator Dr. Larsen was notified 07/19/17 and HD orders have been provided by Dr. Larsen to HD Nurse Ramon Garibay to start HD once Dialysis Catheter is placed by the Surgical Team which is planned for morning of 07/20/17. * Dialysis MWF * Epocrit 10,000 unit IV MWF * Phoslo 1334mg PO TID Status: Acute on Chronic (10). Headache with Hx CVA Assessment and Plan: * CT Head 07/13/17 was negative for bleed or acute process * GI has signed off as of 07/28/17; No further planned GI intervention. Repeat CT Abdomen 07/25: fluid collection resolved * General surgery has signed off 07/27/17. No further planned intervention from Surgery * Aspirin 81mg PO daily * Plavix 75mg PO daily * Crestor 10mg POqHS Status: Chronic (11) AD (Alzheimer's disease) Assessment and Plan: * Aricept 10 mg PO daily Status: Chronic (12) Choledocholithiasis Assessment and Plan: * s/p ERCP with removal of stent and sphincterotomy with Dr. Damian 07/13/17 * GI has signed off as of 07/28/17; No further planned GI intervention. Repeat CT Abdomen 07/25: fluid collection resolved Status: Stable (13) Anemia Assessment and Plan: * Likely secondary to Chronic Disease: CKD Stage III * Resume Ferrous Sulfate 325 mg PO daily. * Epocrit 10,000 unit IV MWF * HgB/Hct are stable * ON aspirin/Plavix given hx of stroke; no further intervention per GI/General surgery Status: Chronic (14) Hx Left Gluteal abscess Assessment and Plan: * Was I&D by surgery team on 06/26/17 * Treated with Bactrim 800/160 PO Q12H for 7 days S/P discharge 06/27/17 Status: Chronic (15) HLD (hyperlipidemia) Assessment and Plan: * Lopid 600 mg PO BID * Patient takes Lipitor 80 mg PO HS which is not on formulary therefore Crestor 10 mg PO HS (renal dosed). Status: Chronic (16) HTN (hypertension) Assessment and Plan: * As the patient's blood pressure is on the low end and he is off Amiodarone Drip since 07/21, therefore the following medications are on HOLD: Amlodipine 10 mg PO daily, Metoprolol XL 100 mg PO daily, and Losartan 100 mg PO daily are all on HOLD * 07/22: patient is off Amiodarone drip since 07/21; but patient is back in atrial fibrillation but is due for second dialysis today. patient's anti- hypertensives remain on hold Status: Chronic (17) Hx of stroke without residual deficits Assessment and Plan: * CT Head 07/13/17 was negative for bleed or acute process * Crestor 10 mg PO HS (renal dosed). * Hold ASA as mentioned above * Hold Plavix 75 mg PO 1x/day since 07/14/17--->will need to discuss with surgery in regards to restart aspirin/plavix Status: Chronic (18) Diabetes Assessment and Plan: * Diabetic Diet since 07/28/17 * Accuchecks QAC and HS * Aspirinm 81mg Po daily * Crestor 10mg POqHS * [id number]: 8.3 Status: Chronic (19) History of hypothyroidism Assessment and Plan: * Levothyroxine 50 mcg PO daily * TSH, Free T4 are normal Status: Chronic (20) Overactive bladder Assessment and Plan: * Festerodine 8 mg PO 1x/day * Enlarged Prostate on CT Abdomen/Pelvis * PSA >23.3--->Will need to be follow-up by urology as outpatient with repeat PSA Status: Chronic (21) Hx of glaucoma Assessment and Plan: * Patient's home med Travatan ggt not on formulary. * Started Xalatan ggt in bilateral eyes. Status: Chronic (22) Hx of gastroesophageal reflux (GERD) Assessment and Plan: * Protonix 40 mg IV daily Status: Chronic (23) Prophylactic measure Assessment and Plan: * Protonix 40 mg PO daily * SCDs * Ascorbic Acid 250 mg PO daily * Florastor 250 mg PO 2x/day * Zofran 4 mg IV Q6H PRN N/V * Start Heparin 5000 units subq 12H: no planned intervention by either GI nor General surgery * Dilaudid 0.5mg IVP Q 4H PRN pain * Intubated on 07/20/17; extubated 07/22/17; on Pressor 07/21; off sedation; off amiodarone IV 07/21 * PT eval in progress * Tolerating diet
[2017-07-29] MEDS: HYDROmorphone 0.5 mg/0.5 ml ISec IVP PRN (11:00)
[2017-07-29] MEDS: Saccharomyces Boulardi 250 mg Cap PO SCH ×2 (11:13→18:20)
[2017-07-29] MEDS: Pantoprazole 40 mg EC Tab PO SCH (11:13)
[2017-07-29] MEDS: Metoprolol Succinate 25 mg XL Tab PO SCH (11:18)
[2017-07-29] MEDS: POLYETHYLENE GLYCOL 3350 17 GM/Dose PACKET PO SCH (11:19)
[2017-07-29] MEDS: EPOETIN ALFA 10,000 UNIT/ML ML IV SCH (11:43)
--- NOTE | 2017-07-29 12:33 | CP.PCM.PN ---
Subjective - Date & Time of Evaluation Date of Evaluation: 07/29/17 Time of Evaluation: 12:30 - Subjective Subjective: Seen on dialysis now- to UF 1400ml as BP low QJ=230 ml Creat clearance= 13 ml /min Remains weak; no new events noted Remains in AFib; on IV ABs Objective - Vital Signs/Intake and Output Vital Signs (last 24 hours): Temp Pulse Resp BP Pulse Ox 98 F 83 25 H 101/46 L 100 07/29/17 09:40 07/29/17 09:40 07/29/17 09:40 07/29/17 12:15 07/29/17 09:30 Intake and Output: 07/29/17 07/29/17 06:59 18:59 Intake Total 300 120 Output Total 200 Balance 100 120 - Medications Medications: Current Medications Albuterol Sulfate (Albuterol 0.042% Inhal Ruby (1.25mg/3ml) Ud) 1.25 mg INH RQ6 PRN PRN Reason: Wheezing Last Admin: 07/28/17 07:05 Dose: 1.25 mg Ascorbic Acid (Vitamin C 250 Mg Tab) 250 mg PO DAILY [facility] Last Admin: 07/29/17 11:44 Dose: 250 mg Aspirin (Aspirin Chewable) 81 mg PO DAILY [facility] Last Admin: 07/29/17 11:42 Dose: 81 mg Benzocaine/Menthol (Cepacol Sore Throat) 1 love MT Q2 PRN PRN Reason: Sore Throat Last Admin: 07/25/17 09:12 Dose: 1 love Calcium Acetate (Phoslo) 1,334 mg PO TID [facility] Last Admin: 07/29/17 11:12 Dose: 1,334 mg Clopidogrel Bisulfate (Plavix) 75 mg PO DAILY [facility] Last Admin: 07/29/17 11:12 Dose: 75 mg Cyproheptadine HCl (Periactin) 4 mg PO BID [facility] Last Admin: 07/29/17 11:23 Dose: 4 mg Donepezil HCl (Aricept) 10 mg PO HS [facility] Last Admin: 07/28/17 21:17 Dose: 10 mg Epoetin Romel (Procrit) 10,000 unit IV MWF [facility] Last Admin: 07/29/17 11:43 Dose: 10,000 unit Ferrous Sulfate (Feosol) 325 mg PO Q12H [facility] Last Admin: 07/29/17 06:22 Dose: 325 mg Heparin Sodium (Porcine) (Heparin) 5,000 units SC Q12 [facility] Last Admin: 07/29/17 11:15 Dose: 5,000 units Home Med (Fesoterodine Fumarate [Toviaz]) 8 mg PO DAILY [facility] Hydromorphone HCl (Dilaudid) 0.5 mg IVP Q4 PRN PRN Reason: Pain, severe (8-10) Last Admin: 07/29/17 11:00 Dose: 0.5 mg Tigecycline 50 mg/ Dextrose 100 mls @ 100 mls/hr IVPB Q12H [facility] Last Admin: 07/29/17 01:04 Dose: 100 mls/hr Metronidazole 250 mg/ (Miscellaneous) 50 mls @ 100 mls/hr IVPB Q8 [facility] Last Admin: 07/29/17 05:04 Dose: 100 mls/hr Insulin Human Regular (Novolin R) 0 unit SC ACHS [facility] PRN Reason: Protocol Last Admin: 07/29/17 08:00 Dose: 2 unit Latanoprost (Xalatan Opht) 0 ml OU HS [facility] Last Admin: 07/28/17 22:00 Dose: 2.5 ml Levothyroxine Sodium (Synthroid) 50 mcg PO DAILY@0630 [facility] Last Admin: 07/29/17 06:22 Dose: 50 mcg Metoprolol Succinate (Toprol Xl) 25 mg PO DAILY [facility] Last Admin: 07/29/17 11:18 Dose: 25 mg Ondansetron HCl (Zofran Inj) 4 mg IVP Q6 PRN PRN Reason: Nausea/Vomiting Pantoprazole Sodium (Protonix Ec Tab) 40 mg PO DAILY [facility] Last Admin: 07/29/17 11:13 Dose: 40 mg Polyethylene Glycol (Miralax) 17 gm PO DAILY [facility] Last Admin: 07/29/17 11:19 Dose: 17 gm Rosuvastatin Calcium (Crestor) 10 mg PO HS [facility] Last Admin: 07/28/17 21:17 Dose: 10 mg Saccharomyces Boulardii (Florastor) 250 mg PO BID [facility] Last Admin: 07/29/17 11:13 Dose: 250 mg - Labs Labs: 07/29/17 06:08 07/29/17 06:08 PT 14.3 SECONDS (9.7-12.2) H 07/16/17 04:00 INR 1.3 07/16/17 04:00 APTT 29 SECONDS (21-34) 07/13/17 20:04 - Constitutional Appears: No Acute Distress, Chronically Ill - Head Exam Head Exam: ATRAUMATIC, NORMAL INSPECTION - Eye Exam Eye Exam: EOMI, Normal appearance - Neck Exam Neck Exam: Normal Inspection. absent: Tenderness - Respiratory Exam Respiratory Exam: Clear to Ausculation Bilateral, NORMAL BREATHING PATTERN - Cardiovascular Exam Cardiovascular Exam: Irregular Rhythm, +S1 - GI/Abdominal Exam GI & Abdominal Exam: Soft. absent: Tenderness - Neurological Exam Neurological Exam: Alert, CN II-XII Intact - Skin Skin Exam: Dry, Warm Assessment and Plan (1) Hx of stroke without residual deficits Status: Acute (2) History of hypertension Status: Chronic (3) JAY JAY (acute kidney injury) Status: Acute (4) Type 2 diabetes mellitus with diabetic nephropathy Status: Acute (5) Chronic kidney disease, stage III (moderate) Status: Acute (6) Proteinuria Status: Acute (7) Hyponatremia with excess extracellular fluid volume Status: Resolved - Assessment and Plan (Free Text) Plan: Continue dialysis MWF IV ABs as per medical team On ESAs, check iron stores
--- NOTE | 2017-07-29 15:07 | RAD ---
HISTORY: pneumonia, pleural effusion COMPARISON: Portable chest 07/23/2017. FINDINGS: LUNGS: No right-sided infiltrate is appreciate in the interval with clearing of the right base identified currently. Persistent airspace disease is seen posterior to the left heart a tunneled central venous catheter is again seen placed, unchanged. Prior right central venous catheters removed. PLEURA: Mild left pleural effusion is improved. No right pleural effusion. CARDIOVASCULAR: Normal cardiac size. No pulmonary derangement evident evident grossly. OSSEOUS STRUCTURES: No significant abnormalities. VISUALIZED UPPER ABDOMEN: Normal. OTHER FINDINGS: None. IMPRESSION: Bilateral interval improvement in right basilar limited patchy density and mild left pleural effusion with significant residual noted at the left base. Left basilar atelectasis infiltrate remains posterior to the left heart. No pulmonary vascular derangement. Continued clinical and radiographic monitor advised.
--- NOTE | 2017-07-29 15:51 | CP.PCM.PN ---
<Buzz Hope - Last Filed: 07/29/17 15:33> Subjective - Date & Time of Evaluation Date of Evaluation: 07/29/17 Time of Evaluation: 15:33 - Subjective Subjective: Patient seen and examined still complaining of chest and abdominal pain getting out of bed daily clinically looking better Objective - Vital Signs/Intake and Output Vital Signs (last 24 hours): Temp Pulse Resp BP Pulse Ox 98.2 F 98 H 13 130/61 89 L 07/29/17 12:45 07/29/17 14:02 07/29/17 14:02 07/29/17 14:02 07/29/17 14:02 Intake and Output: 07/29/17 07/29/17 06:59 18:59 Intake Total 300 120 Output Total 200 Balance 100 120 - Medications Medications: Current Medications Albuterol Sulfate (Albuterol 0.042% Inhal Ruby (1.25mg/3ml) Ud) 1.25 mg INH RQ6 PRN PRN Reason: Wheezing Last Admin: 07/28/17 07:05 Dose: 1.25 mg Ascorbic Acid (Vitamin C 250 Mg Tab) 250 mg PO DAILY [facility] Last Admin: 07/29/17 11:44 Dose: 250 mg Aspirin (Aspirin Chewable) 81 mg PO DAILY [facility] Last Admin: 07/29/17 11:42 Dose: 81 mg Benzocaine/Menthol (Cepacol Sore Throat) 1 love MT Q2 PRN PRN Reason: Sore Throat Last Admin: 07/25/17 09:12 Dose: 1 love Calcium Acetate (Phoslo) 1,334 mg PO TID [facility] Last Admin: 07/29/17 13:49 Dose: 1,334 mg Clopidogrel Bisulfate (Plavix) 75 mg PO DAILY [facility] Last Admin: 07/29/17 11:12 Dose: 75 mg Cyproheptadine HCl (Periactin) 4 mg PO BID [facility] Last Admin: 07/29/17 11:23 Dose: 4 mg Donepezil HCl (Aricept) 10 mg PO HS [facility] Last Admin: 07/28/17 21:17 Dose: 10 mg Epoetin Romel (Procrit) 10,000 unit IV MWF [facility] Last Admin: 07/29/17 11:43 Dose: 10,000 unit Ferrous Sulfate (Feosol) 325 mg PO Q12H [facility] Last Admin: 07/29/17 06:22 Dose: 325 mg Heparin Sodium (Porcine) (Heparin) 5,000 units SC Q12 [facility] Last Admin: 07/29/17 11:15 Dose: 5,000 units Home Med (Fesoterodine Fumarate [Toviaz]) 8 mg PO DAILY [facility] Hydromorphone HCl (Dilaudid) 0.5 mg IVP Q4 PRN PRN Reason: Pain, severe (8-10) Last Admin: 07/29/17 11:00 Dose: 0.5 mg Tigecycline 50 mg/ Dextrose 100 mls @ 100 mls/hr IVPB Q12H [facility] Last Admin: 07/29/17 13:00 Dose: 100 mls/hr Metronidazole 250 mg/ (Miscellaneous) 50 mls @ 100 mls/hr IVPB Q8 [facility] Last Admin: 07/29/17 13:43 Dose: 100 mls/hr Insulin Human Regular (Novolin R) 0 unit SC ACHS DARINEL PRN Reason: Protocol Last Admin: 07/29/17 11:40 Dose: Not Given Latanoprost (Xalatan Opht) 0 ml OU HS [facility] Last Admin: 07/28/17 22:00 Dose: 2.5 ml Levothyroxine Sodium (Synthroid) 50 mcg PO DAILY@0630 [facility] Last Admin: 07/29/17 06:22 Dose: 50 mcg Metoprolol Succinate (Toprol Xl) 25 mg PO DAILY [facility] Last Admin: 07/29/17 11:18 Dose: 25 mg Ondansetron HCl (Zofran Inj) 4 mg IVP Q6 PRN PRN Reason: Nausea/Vomiting Last Admin: 07/29/17 13:43 Dose: 4 mg Pantoprazole Sodium (Protonix Ec Tab) 40 mg PO DAILY [facility] Last Admin: 07/29/17 11:13 Dose: 40 mg Polyethylene Glycol (Miralax) 17 gm PO DAILY [facility] Last Admin: 07/29/17 11:19 Dose: 17 gm Rosuvastatin Calcium (Crestor) 10 mg PO HS [facility] Last Admin: 07/28/17 21:17 Dose: 10 mg Saccharomyces Boulardii (Florastor) 250 mg PO BID [facility] Last Admin: 07/29/17 11:13 Dose: 250 mg - Labs Labs: 07/29/17 06:08 07/29/17 06:08 PT 14.3 SECONDS (9.7-12.2) H 07/16/17 04:00 INR 1.3 07/16/17 04:00 APTT 29 SECONDS (21-34) 07/13/17 20:04 - Additional Findings Additional findings: - Constitutional Appears: Well, Non-toxic, No Acute Distress - Head Exam Head Exam: ATRAUMATIC - Respiratory Exam Respiratory Exam: absent: Rales, Rhonchi, Wheezes Additional comments: coarse bs - Cardiovascular Exam Cardiovascular Exam: Irregular Rhythm, +S1, +S2. absent: REGULAR RHYTHM - GI/Abdominal Exam GI & Abdominal Exam: Soft, Normal Bowel Sounds. absent: Tenderness, Organomegaly, Rebound - Neurological Exam Neurological Exam: Alert, Awake. absent: Oriented x3 Neuro motor strength exam: Left Upper Extremity: 5, Right Upper Extremity: 5, Left Lower Extremity: 3, Right Lower Extremity: 3 Assessment and Plan - Assessment and Plan (Free Text) Assessment: PEA on 07/20/17 * s/p permacath * ROSC returned Chest pain atypical * Cardio (Isac) * ECHO 07/13/17: LV EF is WNL * elevated troponin due to sepsis and afib ERCP Guidewire Perforation of Liver Capsule / Peripheral Bile Duct * GI Signed off * No surgical intervention * Most recent CT does not show fluid collection Enterococcus faecium Bacteremia * Infectious Disease (Dr. Langford) on the board * Flagyl/Tigecycline * Repeat cultures negative Atrial Fibrillation * Cards (Isac) * Toprol XL 25 PO daily * Repeat EKG (NSR) 07/21/17 Bilateral Pneumonia * CXR 07/29/17 - mild airspace disease still present, R sided has resolved CKD Stage III * Nephro (Anish) * Dialysis MWF Hx CVA * Plavix 75 PO QD AD * Aricept 10 mg PO daily. Anemia * Ferrous Sulfate 325 mg PO daily. HLD * Lopid 600 mg PO BID * Crestor 10 mg PO HS HTN * Metoprolol XL 25mg PO daily * Losartan 100 mg PO daily Diabetes * ISS Q6H * Accuchecks Q6H History of hypothyroidism * Levothyroxine 50 mcg PO daily Overactive bladder * Festerodine 8 mg PO 1x/day Hx of glaucoma * Xalatan ggt in bilateral eyes. Hx of gastroesophageal reflux * Protonix 40 mg IV daily Prophylactic measure * Protonix 40 mg daily * SCDs <Gladys Menchaca V - Last Filed: 07/29/17 20:58> Objective - Vital Signs/Intake and Output Vital Signs (last 24 hours): Temp Pulse Resp BP Pulse Ox 97.9 F 77 25 H 95/41 L 100 07/29/17 16:00 07/29/17 18:02 07/29/17 18:02 07/29/17 18:02 07/29/17 18:02 Intake and Output: 07/29/17 07/30/17 18:59 06:59 Intake Total 440 Output Total 1400 Balance -960 - Medications Medications: Current Medications Albuterol Sulfate (Albuterol 0.042% Inhal Ruby (1.25mg/3ml) Ud) 1.25 mg INH RQ6 PRN PRN Reason: Wheezing Last Admin: 07/28/17 07:05 Dose: 1.25 mg Ascorbic Acid (Vitamin C 250 Mg Tab) 250 mg PO DAILY [facility] Last Admin: 07/29/17 11:44 Dose: 250 mg Aspirin (Aspirin Chewable) 81 mg PO DAILY [facility] Last Admin: 07/29/17 11:42 Dose: 81 mg Benzocaine/Menthol (Cepacol Sore Throat) 1 love MT Q2 PRN PRN Reason: Sore Throat Last Admin: 07/25/17 09:12 Dose: 1 love Calcium Acetate (Phoslo) 1,334 mg PO TID [facility] Last Admin: 07/29/17 19:19 Dose: Not Given Clopidogrel Bisulfate (Plavix) 75 mg PO DAILY [facility] Last Admin: 07/29/17 11:12 Dose: 75 mg Cyproheptadine HCl (Periactin) 4 mg PO BID [facility] Last Admin: 07/29/17 18:24 Dose: 4 mg Donepezil HCl (Aricept) 10 mg PO HS [facility] Last Admin: 07/28/17 21:17 Dose: 10 mg Epoetin Romel (Procrit) 10,000 unit IV MWF [facility] Last Admin: 07/29/17 11:43 Dose: 10,000 unit Ferrous Sulfate (Feosol) 325 mg PO Q12H [facility] Last Admin: 07/29/17 18:20 Dose: 325 mg Heparin Sodium (Porcine) (Heparin) 5,000 units SC Q12 [facility] Last Admin: 07/29/17 11:15 Dose: 5,000 units Home Med (Fesoterodine Fumarate [Toviaz]) 8 mg PO DAILY [facility] Hydromorphone HCl (Dilaudid) 0.5 mg IVP Q4 PRN PRN Reason: Pain, severe (8-10) Last Admin: 07/29/17 11:00 Dose: 0.5 mg Metronidazole 250 mg/ (Miscellaneous) 50 mls @ 100 mls/hr IVPB Q8 [facility] Last Admin: 07/29/17 13:43 Dose: 100 mls/hr Insulin Human Regular (Novolin R) 0 unit SC ACHS DARINEL PRN Reason: Protocol Last Admin: 07/29/17 16:56 Dose: 3 unit Latanoprost (Xalatan Opht) 0 ml OU HS [facility] Last Admin: 07/28/17 22:00 Dose: 2.5 ml Levothyroxine Sodium (Synthroid) 50 mcg PO DAILY@0630 [facility] Last Admin: 07/29/17 06:22 Dose: 50 mcg Metoprolol Succinate (Toprol Xl) 25 mg PO DAILY [facility] Last Admin: 07/29/17 11:18 Dose: 25 mg Ondansetron HCl (Zofran Inj) 4 mg IVP Q6 PRN PRN Reason: Nausea/Vomiting Last Admin: 07/29/17 13:43 Dose: 4 mg Pantoprazole Sodium (Protonix Ec Tab) 40 mg PO DAILY [facility] Last Admin: 07/29/17 11:13 Dose: 40 mg Polyethylene Glycol (Miralax) 17 gm PO DAILY [facility] Last Admin: 07/29/17 11:19 Dose: 17 gm Rosuvastatin Calcium (Crestor) 10 mg PO HS [facility] Last Admin: 07/28/17 21:17 Dose: 10 mg Saccharomyces Boulardii (Florastor) 250 mg PO BID [facility] Last Admin: 07/29/17 18:20 Dose: 250 mg - Labs Labs: 07/29/17 06:08 07/29/17 06:08 PT 14.3 SECONDS (9.7-12.2) H 07/16/17 04:00 INR 1.3 07/16/17 04:00 APTT 29 SECONDS (21-34) 07/13/17 20:04 Attending/Attestation - Attestation Notes (Text): Please refer to my note for further details and addendums to assessment and plans.
--- NOTE | 2017-07-29 17:04 | CP.PCM.PN ---
Subjective - Date & Time of Evaluation Date of Evaluation: 07/29/17 Time of Evaluation: 07:00 - Subjective Subjective: events noted iv rx in progress Objective - Vital Signs/Intake and Output Vital Signs (last 24 hours): Temp Pulse Resp BP Pulse Ox 97.9 F 80 20 132/71 99 07/29/17 16:00 07/29/17 16:00 07/29/17 16:00 07/29/17 16:00 07/29/17 16:00 Intake and Output: 07/29/17 07/29/17 06:59 18:59 Intake Total 300 120 Output Total 200 Balance 100 120 - Medications Medications: Current Medications Albuterol Sulfate (Albuterol 0.042% Inhal Ruby (1.25mg/3ml) Ud) 1.25 mg INH RQ6 PRN PRN Reason: Wheezing Last Admin: 07/28/17 07:05 Dose: 1.25 mg Ascorbic Acid (Vitamin C 250 Mg Tab) 250 mg PO DAILY [facility] Last Admin: 07/29/17 11:44 Dose: 250 mg Aspirin (Aspirin Chewable) 81 mg PO DAILY [facility] Last Admin: 07/29/17 11:42 Dose: 81 mg Benzocaine/Menthol (Cepacol Sore Throat) 1 love MT Q2 PRN PRN Reason: Sore Throat Last Admin: 07/25/17 09:12 Dose: 1 love Calcium Acetate (Phoslo) 1,334 mg PO TID [facility] Last Admin: 07/29/17 13:49 Dose: 1,334 mg Clopidogrel Bisulfate (Plavix) 75 mg PO DAILY [facility] Last Admin: 07/29/17 11:12 Dose: 75 mg Cyproheptadine HCl (Periactin) 4 mg PO BID [facility] Last Admin: 07/29/17 11:23 Dose: 4 mg Donepezil HCl (Aricept) 10 mg PO HS [facility] Last Admin: 07/28/17 21:17 Dose: 10 mg Epoetin Romel (Procrit) 10,000 unit IV MWF [facility] Last Admin: 07/29/17 11:43 Dose: 10,000 unit Ferrous Sulfate (Feosol) 325 mg PO Q12H [facility] Last Admin: 07/29/17 06:22 Dose: 325 mg Heparin Sodium (Porcine) (Heparin) 5,000 units SC Q12 [facility] Last Admin: 07/29/17 11:15 Dose: 5,000 units Home Med (Fesoterodine Fumarate [Toviaz]) 8 mg PO DAILY [facility] Hydromorphone HCl (Dilaudid) 0.5 mg IVP Q4 PRN PRN Reason: Pain, severe (8-10) Last Admin: 07/29/17 11:00 Dose: 0.5 mg Tigecycline 50 mg/ Dextrose 100 mls @ 100 mls/hr IVPB Q12H [facility] Last Admin: 07/29/17 13:00 Dose: 100 mls/hr Metronidazole 250 mg/ (Miscellaneous) 50 mls @ 100 mls/hr IVPB Q8 [facility] Last Admin: 07/29/17 13:43 Dose: 100 mls/hr Insulin Human Regular (Novolin R) 0 unit SC ACHS [facility] PRN Reason: Protocol Last Admin: 07/29/17 16:56 Dose: 3 unit Latanoprost (Xalatan Opht) 0 ml OU HS [facility] Last Admin: 07/28/17 22:00 Dose: 2.5 ml Levothyroxine Sodium (Synthroid) 50 mcg PO DAILY@0630 [facility] Last Admin: 07/29/17 06:22 Dose: 50 mcg Metoprolol Succinate (Toprol Xl) 25 mg PO DAILY [facility] Last Admin: 07/29/17 11:18 Dose: 25 mg Ondansetron HCl (Zofran Inj) 4 mg IVP Q6 PRN PRN Reason: Nausea/Vomiting Last Admin: 07/29/17 13:43 Dose: 4 mg Pantoprazole Sodium (Protonix Ec Tab) 40 mg PO DAILY [facility] Last Admin: 07/29/17 11:13 Dose: 40 mg Polyethylene Glycol (Miralax) 17 gm PO DAILY [facility] Last Admin: 07/29/17 11:19 Dose: 17 gm Rosuvastatin Calcium (Crestor) 10 mg PO HS [facility] Last Admin: 07/28/17 21:17 Dose: 10 mg Saccharomyces Boulardii (Florastor) 250 mg PO BID [facility] Last Admin: 07/29/17 11:13 Dose: 250 mg - Labs Labs: 07/29/17 06:08 07/29/17 06:08 PT 14.3 SECONDS (9.7-12.2) H 07/16/17 04:00 INR 1.3 07/16/17 04:00 APTT 29 SECONDS (21-34) 07/13/17 20:04 - Constitutional Appears: Chronically Ill - Head Exam Head Exam: NORMAL INSPECTION - Eye Exam Eye Exam: absent: Scleral icterus - ENT Exam ENT Exam: Mucous Membranes Dry - Neck Exam Neck Exam: absent: Lymphadenopathy - Respiratory Exam Respiratory Exam: Decreased Breath Sounds, Clear to Ausculation Bilateral - Cardiovascular Exam Cardiovascular Exam: REGULAR RHYTHM, +S1, +S2 - GI/Abdominal Exam GI & Abdominal Exam: Distended, Soft. absent: Tenderness Assessment and Plan (1) JAY JAY (acute kidney injury) Status: Acute (2) CVA, old, cognitive deficits Status: Acute (3) Chronic kidney disease, stage III (moderate) Status: Acute (4) Headache Status: Acute (5) Hx of gastroesophageal reflux (GERD) Status: Acute
[2017-07-29] MEDS: Latanoprost 2.5 ml Opht Soln OU SCH (21:37)
[2017-07-30] MEDS: Levothyroxine 50 MCG TAB PO SCH (06:16)
[2017-07-30] MEDS: metroNIDAZOLE IV 500 mg/100 ml 250 MG in Premixed IV 1 EA IVPB SCH ×3 (06:16→22:05)
--- NOTE | 2017-07-30 10:32 | CP.PCM.PN ---
Subjective - Date & Time of Evaluation Date of Evaluation: 07/30/17 Time of Evaluation: 10:29 - Subjective Subjective: stable dialysis 07/29- UF 1500ml more alert; less dyspneic; no CPs, n, v, f, chills BP controlled doing PTx Objective - Vital Signs/Intake and Output Vital Signs (last 24 hours): Temp Pulse Resp BP Pulse Ox 98.4 F 77 18 127/72 97 07/30/17 09:42 07/30/17 09:42 07/30/17 09:42 07/30/17 09:42 07/30/17 09:42 Intake and Output: 07/30/17 07/30/17 06:59 18:59 Intake Total 170 Output Total 150 Balance 20 - Medications Medications: Current Medications Albuterol Sulfate (Albuterol 0.042% Inhal Ruby (1.25mg/3ml) Ud) 1.25 mg INH RQ6 PRN PRN Reason: Wheezing Last Admin: 07/28/17 07:05 Dose: 1.25 mg Ascorbic Acid (Vitamin C 250 Mg Tab) 250 mg PO DAILY [facility] Last Admin: 07/29/17 11:44 Dose: 250 mg Aspirin (Aspirin Chewable) 81 mg PO DAILY [facility] Last Admin: 07/29/17 11:42 Dose: 81 mg Benzocaine/Menthol (Cepacol Sore Throat) 1 love MT Q2 PRN PRN Reason: Sore Throat Last Admin: 07/25/17 09:12 Dose: 1 love Calcium Acetate (Phoslo) 1,334 mg PO TID [facility] Last Admin: 07/29/17 19:19 Dose: Not Given Clopidogrel Bisulfate (Plavix) 75 mg PO DAILY [facility] Last Admin: 07/29/17 11:12 Dose: 75 mg Cyproheptadine HCl (Periactin) 4 mg PO BID [facility] Last Admin: 07/29/17 18:24 Dose: 4 mg Donepezil HCl (Aricept) 10 mg PO HS [facility] Last Admin: 07/29/17 21:35 Dose: 10 mg Epoetin Romel (Procrit) 10,000 unit IV MWF [facility] Last Admin: 07/29/17 11:43 Dose: 10,000 unit Ferrous Sulfate (Feosol) 325 mg PO Q12H [facility] Last Admin: 07/30/17 06:16 Dose: 325 mg Heparin Sodium (Porcine) (Heparin) 5,000 units SC Q12 [facility] Last Admin: 07/29/17 21:36 Dose: 5,000 units Home Med (Fesoterodine Fumarate [Toviaz]) 8 mg PO DAILY [facility] Hydromorphone HCl (Dilaudid) 0.5 mg IVP Q4 PRN PRN Reason: Pain, severe (8-10) Last Admin: 07/29/17 11:00 Dose: 0.5 mg Metronidazole 250 mg/ (Miscellaneous) 50 mls @ 100 mls/hr IVPB Q8 [facility] Last Admin: 07/30/17 06:16 Dose: 100 mls/hr Insulin Human Regular (Novolin R) 0 unit SC ACHS DARINEL PRN Reason: Protocol Last Admin: 07/29/17 16:56 Dose: 3 unit Latanoprost (Xalatan Opht) 0 ml OU HS [facility] Last Admin: 07/29/17 21:37 Dose: 2.5 ml Levothyroxine Sodium (Synthroid) 50 mcg PO DAILY@0630 [facility] Last Admin: 07/30/17 06:16 Dose: 50 mcg Metoprolol Succinate (Toprol Xl) 25 mg PO DAILY [facility] Last Admin: 07/29/17 11:18 Dose: 25 mg Ondansetron HCl (Zofran Inj) 4 mg IVP Q6 PRN PRN Reason: Nausea/Vomiting Last Admin: 07/29/17 13:43 Dose: 4 mg Pantoprazole Sodium (Protonix Ec Tab) 40 mg PO DAILY [facility] Last Admin: 07/29/17 11:13 Dose: 40 mg Polyethylene Glycol (Miralax) 17 gm PO DAILY [facility] Last Admin: 07/29/17 11:19 Dose: 17 gm Rosuvastatin Calcium (Crestor) 10 mg PO HS [facility] Last Admin: 07/29/17 21:35 Dose: 10 mg Saccharomyces Boulardii (Florastor) 250 mg PO BID [facility] Last Admin: 07/29/17 18:20 Dose: 250 mg - Labs Labs: 07/29/17 06:08 07/29/17 06:08 PT 14.3 SECONDS (9.7-12.2) H 07/16/17 04:00 INR 1.3 07/16/17 04:00 APTT 29 SECONDS (21-34) 07/13/17 20:04 - Constitutional Appears: No Acute Distress, Chronically Ill - Head Exam Head Exam: ATRAUMATIC, NORMAL INSPECTION - Eye Exam Eye Exam: EOMI, Normal appearance - Neck Exam Neck Exam: Normal Inspection. absent: Tenderness - Respiratory Exam Respiratory Exam: Clear to Ausculation Bilateral, NORMAL BREATHING PATTERN - Cardiovascular Exam Cardiovascular Exam: Irregular Rhythm, +S1 - GI/Abdominal Exam GI & Abdominal Exam: Soft. absent: Tenderness - Extremities Exam Extremities Exam: Normal Inspection. 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
[2017-07-30] MEDS: Pantoprazole 40 mg EC Tab PO SCH (10:42)
[2017-07-30] MEDS: Saccharomyces Boulardi 250 mg Cap PO SCH ×2 (10:43→18:43)
[2017-07-30] MEDS: POLYETHYLENE GLYCOL 3350 17 GM/Dose PACKET PO SCH (10:44)
--- NOTE | 2017-07-30 11:24 | CP.PCM.CON ---
History of Present Illness - History of Present Illness History of Present Illness: Vascular Surgery Consult Re: AVF creation HPI: 82M who underwent an ERCP to have a stent removed and a sphincterotomy. Pt developed RUQ and epigastric abd pain. He was monitored in the ICU and has had some setbacks including a code blue and JAY JAY. Pt required pressors for a time and ended up on hemodialysis. His Cr remains elevated at double his baseline despite HD over the last 15 days. Vascular consult requested to evaluate for AVF creation. Pt still reporting abd pain but he is tolerating it. No other complaints at this time. Pt is not a good historian due to some degree of dementia. Most information obtained from EMR. PMH: DM, HTN, CVA, GERD, gluteal abscess (MRSA) on 06/27/17, Dementia, Hypothyroidism PSH: Cholecystectomy, Cardiac cath 2012, carotid surgery, ERCP c stent, right hand surgery SH: Denies Tobacco, EtOH and drug use All: NKDA Meds: see MAR Review of Systems - Review of Systems All systems: reviewed and no additional remarkable complaints except (as per HPI ) Past Patient History - Infectious Disease Hx of Infectious Diseases: None - Tetanus Immunizations Tetanus Immunization: Unknown - Past Medical History & Family History Past Medical History?: Yes - Past Social History Smoking Status: Never Smoked Chewing Tobacco Use: No Cigar Use: No Alcohol: None Drugs: Denies Home Situation {Lives}: With Family - CARDIAC Hx Hypertension: Yes - PULMONARY Hx Respiratory Disorders: Yes Hx Pneumonia: Yes (KLEBSIELLA PNEUMONIAE) - NEUROLOGICAL HX Cerebrovascular Accident: Yes - HEENT Hx HEENT Problems: Yes Hx Cataracts: Yes (SURGERY) - RENAL Hx Chronic Kidney Disease: No - ENDOCRINE/METABOLIC Hx Diabetes Mellitus Type 2: Yes Hx Hypothyroidism: Yes - HEMATOLOGICAL/ONCOLOGICAL Hx Blood Disorders: No Hx Blood Transfusions: No - INTEGUMENTARY Hx Dermatological Problems: No - MUSCULOSKELETAL/RHEUMATOLOGICAL Hx Musculoskeletal Disorders: Yes Hx Arthritis: Yes (BACK, BL KNEE) Hx Back Pain: Yes Hx Falls: No Other/Comment: RIGHT HAND WEAK GRASP RESIDUAL FROM STROKE - GASTROINTESTINAL Hx Gastrointestinal Disorders: Yes (''STOMACH BACTERIA'') Hx Ulcer: Yes Other/Comment: CHOLEDOCHOLITHIASIS, CHOLANGITIS - GENITOURINARY/GYNECOLOGICAL Hx Genitourinary Disorders: No Hx Incontinence: Yes - PSYCHIATRIC Hx Psychophysiologic Disorder: No Hx Substance Use: No - SURGICAL HISTORY Hx Surgeries: Yes Hx Cataract Extraction: Yes Other/Comment: LEFT BEHIND EAR SURGERY FROM BLOOD CLOTS ,RIGHT HAND SURGERY - ANESTHESIA Hx Anesthesia: Yes Hx Anesthesia Reactions: No Hx Malignant Hyperthermia: No Meds Allergies/Adverse Reactions: Allergies Allergy/AdvReac Type Severity Reaction Status Date / Time No Known Allergies Allergy Verified 07/13/17 10:45 - Medications Medications: Current Medications Albuterol Sulfate (Albuterol 0.042% Inhal Ruby (1.25mg/3ml) Ud) 1.25 mg INH RQ6 PRN PRN Reason: Wheezing Last Admin: 07/28/17 07:05 Dose: 1.25 mg Ascorbic Acid (Vitamin C 250 Mg Tab) 250 mg PO DAILY [facility] Last Admin: 07/29/17 11:44 Dose: 250 mg Aspirin (Aspirin Chewable) 81 mg PO DAILY [facility] Last Admin: 07/29/17 11:42 Dose: 81 mg Benzocaine/Menthol (Cepacol Sore Throat) 1 love MT Q2 PRN PRN Reason: Sore Throat Last Admin: 07/25/17 09:12 Dose: 1 love Calcium Acetate (Phoslo) 1,334 mg PO TID [facility] Last Admin: 07/29/17 19:19 Dose: Not Given Clopidogrel Bisulfate (Plavix) 75 mg PO DAILY [facility] Last Admin: 07/29/17 11:12 Dose: 75 mg Cyproheptadine HCl (Periactin) 4 mg PO BID [facility] Last Admin: 07/29/17 18:24 Dose: 4 mg Donepezil HCl (Aricept) 10 mg PO HS [facility] Last Admin: 07/29/17 21:35 Dose: 10 mg Epoetin Romel (Procrit) 10,000 unit IV MWF [facility] Last Admin: 07/29/17 11:43 Dose: 10,000 unit Ferrous Sulfate (Feosol) 325 mg PO Q12H [facility] Last Admin: 07/30/17 06:16 Dose: 325 mg Heparin Sodium (Porcine) (Heparin) 5,000 units SC Q12 [facility] Last Admin: 07/29/17 21:36 Dose: 5,000 units Home Med (Fesoterodine Fumarate [Toviaz]) 8 mg PO DAILY [facility] Hydromorphone HCl (Dilaudid) 0.5 mg IVP Q4 PRN PRN Reason: Pain, severe (8-10) Last Admin: 07/29/17 11:00 Dose: 0.5 mg Metronidazole 250 mg/ (Miscellaneous) 50 mls @ 100 mls/hr IVPB Q8 [facility] Last Admin: 07/30/17 06:16 Dose: 100 mls/hr Insulin Human Regular (Novolin R) 0 unit SC ACHS DARIN[facility] PRN Reason: Protocol Last Admin: 07/29/17 16:56 Dose: 3 unit Latanoprost (Xalatan Opht) 0 ml OU HS [facility] Last Admin: 07/29/17 21:37 Dose: 2.5 ml Levothyroxine Sodium (Synthroid) 50 mcg PO DAILY@0630 [facility] Last Admin: 07/30/17 06:16 Dose: 50 mcg Metoprolol Succinate (Toprol Xl) 25 mg PO DAILY [facility] Last Admin: 07/29/17 11:18 Dose: 25 mg Ondansetron HCl (Zofran Inj) 4 mg IVP Q6 PRN PRN Reason: Nausea/Vomiting Last Admin: 07/29/17 13:43 Dose: 4 mg Pantoprazole Sodium (Protonix Ec Tab) 40 mg PO DAILY [facility] Last Admin: 07/29/17 11:13 Dose: 40 mg Polyethylene Glycol (Miralax) 17 gm PO DAILY [facility] Last Admin: 07/29/17 11:19 Dose: 17 gm Rosuvastatin Calcium (Crestor) 10 mg PO HS [facility] Last Admin: 07/29/17 21:35 Dose: 10 mg Saccharomyces Boulardii (Florastor) 250 mg PO BID [facility] Last Admin: 07/29/17 18:20 Dose: 250 mg Physical Exam - Constitutional Appears: Non-toxic, No Acute Distress - Head Exam Head Exam: ATRAUMATIC, NORMOCEPHALIC - Eye Exam Eye Exam: EOMI. absent: Scleral icterus - ENT Exam ENT Exam: Mucous Membranes Moist Additional comments: trachea midline - Respiratory Exam Respiratory Exam: NORMAL BREATHING PATTERN. absent: Respiratory Distress - Cardiovascular Exam Cardiovascular Exam: +S1, +S2. absent: JVD - GI/Abdominal Exam GI & Abdominal Exam: Distended (mild), Soft, Tenderness (in epigastrum). absent : Firm, Guarding, Rebound, Rigid - Rectal Exam Rectal Exam: Deferred - Extremities Exam Extremities exam: Positive for: normal capillary refill. Negative for: calf tenderness - Back Exam Back exam: absent: CVA tenderness (R) - Neurological Exam Neurological exam: Alert - Psychiatric Exam Psychiatric exam: Normal Affect, Normal Mood - Skin Skin Exam: Dry, Warm Results - Vital Signs Recent Vital Signs: Last Vital Signs Temp 98.4 F 07/30/17 09:42 Pulse 77 07/30/17 09:42 Resp 18 07/30/17 09:42 BP 127/72 07/30/17 09:42 Pulse Ox 97 07/30/17 09:42 - Labs Result Diagrams: 07/29/17 06:08 07/29/17 06:08 Labs: Laboratory Results - last 24 hr 07/29/17 07/29/17 07/29/17 11:02 16:08 21:08 POC Glucose (mg/dL) 133 H 228 H 77 Ferritin 07/30/17 07/30/17 06:15 07:21 POC Glucose (mg/dL) 181 H Ferritin 349.0 Assessment & Plan - Assessment and Plan (Free Text) Assessment: 82M with ARF which is not resolving with short term dialysis Plan: Ordered vain mapping of upper extremities. Will place arm precautions based on result. Will D/W Dr. Kay Candelario PGY4
[2017-07-30] MEDS: Metoprolol Succinate 25 mg XL Tab PO SCH (11:50)
[2017-07-30] MEDS: (Novolin R) Insulin Human Regular 100 units/ml vial SC SCH ×3 (12:16→21:40)
--- NOTE | 2017-07-30 18:14 | CP.PCM.PN ---
Subjective - Date & Time of Evaluation Date of Evaluation: 07/30/17 Time of Evaluation: 09:00 - Subjective Subjective: pt with MDRO enterococcus bacteremia s/p Stent removal from biliary tract- developed septic shock, ATN now on HD sepsos resolving baseline dementia unchanged recc min 3 weeks IV rx and follow up imaging to r/o residual collection Objective - Vital Signs/Intake and Output Vital Signs (last 24 hours): Temp Pulse Resp BP Pulse Ox 98.4 F 73 20 115/64 97 07/30/17 15:32 07/30/17 15:32 07/30/17 15:32 07/30/17 15:32 07/30/17 15:32 Intake and Output: 07/30/17 07/30/17 06:59 18:59 Intake Total 170 400 Output Total 150 Balance 20 400 - Medications Medications: Current Medications Albuterol Sulfate (Albuterol 0.042% Inhal Ruby (1.25mg/3ml) Ud) 1.25 mg INH RQ6 PRN PRN Reason: Wheezing Last Admin: 07/28/17 07:05 Dose: 1.25 mg Ascorbic Acid (Vitamin C 250 Mg Tab) 250 mg PO DAILY [facility] Last Admin: 07/29/17 11:44 Dose: 250 mg Aspirin (Aspirin Chewable) 81 mg PO DAILY [facility] Last Admin: 07/30/17 10:41 Dose: 81 mg Benzocaine/Menthol (Cepacol Sore Throat) 1 love MT Q2 PRN PRN Reason: Sore Throat Last Admin: 07/25/17 09:12 Dose: 1 love Calcium Acetate (Phoslo) 1,334 mg PO TID [facility] Last Admin: 07/30/17 14:30 Dose: 1,334 mg Clopidogrel Bisulfate (Plavix) 75 mg PO DAILY [facility] Last Admin: 07/30/17 10:42 Dose: 75 mg Cyproheptadine HCl (Periactin) 4 mg PO BID [facility] Last Admin: 07/30/17 11:00 Dose: 4 mg Donepezil HCl (Aricept) 10 mg PO HS [facility] Last Admin: 07/29/17 21:35 Dose: 10 mg Epoetin Romel (Procrit) 10,000 unit IV MWF [facility] Last Admin: 07/29/17 11:43 Dose: 10,000 unit Ferrous Sulfate (Feosol) 325 mg PO Q12H [facility] Last Admin: 07/30/17 06:16 Dose: 325 mg Heparin Sodium (Porcine) (Heparin) 5,000 units SC Q12 [facility] Last Admin: 07/30/17 10:49 Dose: 5,000 units Home Med (Fesoterodine Fumarate [Toviaz]) 8 mg PO DAILY [facility] Hydromorphone HCl (Dilaudid) 0.5 mg IVP Q4 PRN PRN Reason: Pain, severe (8-10) Last Admin: 07/29/17 11:00 Dose: 0.5 mg Metronidazole 250 mg/ (Miscellaneous) 50 mls @ 100 mls/hr IVPB Q8 [facility] Last Admin: 07/30/17 15:51 Dose: 100 mls/hr Insulin Human Regular (Novolin R) 0 unit SC ACHS [facility] PRN Reason: Protocol Last Admin: 07/30/17 12:16 Dose: Not Given Latanoprost (Xalatan Opht) 0 ml OU HS [facility] Last Admin: 07/29/17 21:37 Dose: 2.5 ml Levothyroxine Sodium (Synthroid) 50 mcg PO DAILY@0630 [facility] Last Admin: 07/30/17 06:16 Dose: 50 mcg Metoprolol Succinate (Toprol Xl) 25 mg PO DAILY [facility] Last Admin: 07/30/17 11:50 Dose: 25 mg Ondansetron HCl (Zofran Inj) 4 mg IVP Q6 PRN PRN Reason: Nausea/Vomiting Last Admin: 07/29/17 13:43 Dose: 4 mg Pantoprazole Sodium (Protonix Ec Tab) 40 mg PO DAILY [facility] Last Admin: 07/30/17 10:42 Dose: 40 mg Polyethylene Glycol (Miralax) 17 gm PO DAILY [facility] Last Admin: 07/30/17 10:44 Dose: 17 gm Rosuvastatin Calcium (Crestor) 10 mg PO HS [facility] Last Admin: 07/29/17 21:35 Dose: 10 mg Saccharomyces Boulardii (Florastor) 250 mg PO BID [facility] Last Admin: 07/30/17 10:43 Dose: 250 mg - Labs Labs: 07/29/17 06:08 07/29/17 06:08 PT 14.3 SECONDS (9.7-12.2) H 07/16/17 04:00 INR 1.3 07/16/17 04:00 APTT 29 SECONDS (21-34) 10/30/17 20:04 - Constitutional Appears: Non-toxic, Cachectic, Chronically Ill - Head Exam Head Exam: NORMOCEPHALIC - Eye Exam Eye Exam: PERRL. absent: Scleral icterus - ENT Exam ENT Exam: Mucous Membranes Dry - Neck Exam Neck Exam: absent: Lymphadenopathy - Respiratory Exam Respiratory Exam: Decreased Breath Sounds, Clear to Ausculation Bilateral - Cardiovascular Exam Cardiovascular Exam: REGULAR RHYTHM, +S1, +S2 - GI/Abdominal Exam GI & Abdominal Exam: Distended, Soft, Tenderness Assessment and Plan (1) JAY JAY (acute kidney injury) Status: Acute (2) CVA, old, cognitive deficits Status: Acute (3) Chronic kidney disease, stage III (moderate) Status: Acute (4) Headache Status: Acute (5) Hx of gastroesophageal reflux (GERD) Status: Acute
[2017-07-30] MEDS: Benzocaine/Menthol (Cepacol) Lozenge MT PRN (21:53)
[2017-07-30] MEDS: HYDROmorphone 0.5 mg/0.5 ml ISec IVP PRN (21:53)
[2017-07-30] MEDS: Latanoprost 2.5 ml Opht Soln OU SCH (22:08)
--- NOTE | 2017-07-30 22:55 | CP.PCM.PN ---
Subjective - Date & Time of Evaluation Date of Evaluation: 07/30/17 Time of Evaluation: 12:20 - Subjective Subjective: Medical Attending Note: Patient transferred out from ICU early this morning onto the 6th floor. Patient is baseline dementia. No change. Unable to ROS given patient's dementia. No family present at bedside. Attempted to reach out to PMD, voicemail box is full and texted twice in attempts to keep in the loop regarding hospitalization. Objective - Vital Signs/Intake and Output Vital Signs (last 24 hours): Temp Pulse Resp BP Pulse Ox 98.4 F 73 20 115/64 97 07/30/17 15:32 07/30/17 15:32 07/30/17 15:32 07/30/17 15:32 07/30/17 15:32 Intake and Output: 07/30/17 07/31/17 18:59 06:59 Intake Total 400 Balance 400 - Medications Medications: Current Medications Albuterol Sulfate (Albuterol 0.042% Inhal Ruby (1.25mg/3ml) Ud) 1.25 mg INH RQ6 PRN PRN Reason: Wheezing Last Admin: 07/28/17 07:05 Dose: 1.25 mg Ascorbic Acid (Vitamin C 250 Mg Tab) 250 mg PO DAILY [facility] Last Admin: 07/29/17 11:44 Dose: 250 mg Aspirin (Aspirin Chewable) 81 mg PO DAILY [facility] Last Admin: 07/30/17 10:41 Dose: 81 mg Benzocaine/Menthol (Cepacol Sore Throat) 1 love MT Q2 PRN PRN Reason: Sore Throat Last Admin: 07/30/17 21:53 Dose: 1 love Calcium Acetate (Phoslo) 1,334 mg PO TID [facility] Last Admin: 07/30/17 18:43 Dose: 1,334 mg Clopidogrel Bisulfate (Plavix) 75 mg PO DAILY [facility] Last Admin: 07/30/17 10:42 Dose: 75 mg Cyproheptadine HCl (Periactin) 4 mg PO BID [facility] Last Admin: 07/30/17 21:57 Dose: Not Given Donepezil HCl (Aricept) 10 mg PO HS [facility] Last Admin: 07/30/17 21:53 Dose: 10 mg Epoetin Romel (Procrit) 10,000 unit IV MWF [facility] Last Admin: 07/29/17 11:43 Dose: 10,000 unit Ferrous Sulfate (Feosol) 325 mg PO Q12H [facility] Last Admin: 07/30/17 18:43 Dose: 325 mg Heparin Sodium (Porcine) (Heparin) 5,000 units SC Q12 [facility] Last Admin: 07/30/17 22:05 Dose: 5,000 units Home Med (Fesoterodine Fumarate [Toviaz]) 8 mg PO DAILY [facility] Hydromorphone HCl (Dilaudid) 0.5 mg IVP Q4 PRN PRN Reason: Pain, severe (8-10) Last Admin: 07/30/17 21:53 Dose: 0.5 mg Metronidazole 250 mg/ (Miscellaneous) 50 mls @ 100 mls/hr IVPB Q8 [facility] Last Admin: 07/30/17 22:05 Dose: 100 mls/hr Tigecycline 50 mg/ Sodium (Chloride) 100 mls @ 100 mls/hr IVPB Q12H [facility] Last Admin: 07/30/17 19:24 Dose: 100 mls/hr Insulin Human Regular (Novolin R) 0 unit SC ACHS [facility] PRN Reason: Protocol Last Admin: 07/30/17 21:40 Dose: Not Given Latanoprost (Xalatan Opht) 0 ml OU HS [facility] Last Admin: 07/30/17 22:08 Dose: 1 ml Levothyroxine Sodium (Synthroid) 50 mcg PO DAILY@0630 [facility] Last Admin: 07/30/17 06:16 Dose: 50 mcg Metoprolol Succinate (Toprol Xl) 25 mg PO DAILY [facility] Last Admin: 07/30/17 11:50 Dose: 25 mg Ondansetron HCl (Zofran Inj) 4 mg IVP Q6 PRN PRN Reason: Nausea/Vomiting Last Admin: 07/29/17 13:43 Dose: 4 mg Pantoprazole Sodium (Protonix Ec Tab) 40 mg PO DAILY [facility] Last Admin: 07/30/17 10:42 Dose: 40 mg Polyethylene Glycol (Miralax) 17 gm PO DAILY [facility] Last Admin: 07/30/17 10:44 Dose: 17 gm Rosuvastatin Calcium (Crestor) 10 mg PO HS [facility] Last Admin: 07/30/17 21:53 Dose: 10 mg Saccharomyces Boulardii (Florastor) 250 mg PO BID [facility] Last Admin: 07/30/17 18:43 Dose: 250 mg - Labs Labs: 07/29/17 06:08 07/29/17 06:08 PT 14.3 SECONDS (9.7-12.2) H 07/16/17 04:00 INR 1.3 07/16/17 04:00 APTT 29 SECONDS (21-34) 07/13/17 20:04 - Constitutional Appears: Non-toxic, No Acute Distress - Head Exam Head Exam: NORMAL INSPECTION Additional comments: permcath-clean/dry/intact midline over right upper extremity - Eye Exam Eye Exam: EOMI - ENT Exam ENT Exam: Mucous Membranes Moist - Respiratory Exam Respiratory Exam: NORMAL BREATHING PATTERN Additional comments: good air exchange bibasilar rales - Cardiovascular Exam Cardiovascular Exam: REGULAR RHYTHM, +S1, +S2 - GI/Abdominal Exam GI & Abdominal Exam: Soft, Normal Bowel Sounds Additional comments: tender to palpation (report ow, though he is comfortable in bed), distended, no guarding no rebound appreciated - Extremities Exam Additional comments: on Prevalon boots - Neurological Exam Neurological Exam: Awake - Skin Skin Exam: Dry, Intact, Normal Color, Warm Assessment and Plan - Assessment and Plan (Free Text) Assessment: Assessment & Plan (1) Cardiac Arrest PEA on 07/20/17 Assessment and Plan: * Status post-procedure; patient went into PEA on 07/20 ROSC returned; intubated 07/20/17-[id number]/8 * Chest xray (07/22/17): moderate left pleural effusion with consolidative opacification in the left mid to lower lung zone. trace right pleural effusion with adjacent right basilar consolidation. cardiomeglay. calcification at the aortic knob * 07/29; patient is awake, alert, eating food at bedside; PT note recommending patient to subacute rehab * 07/30: same as above; discussed with case management to setup patient for subacute rehab and dialysis placement post hospitalization Status: Acute (2) Chest pain Assessment and Plan: * Patient with atypical chest pain history * Cardio Dr. Chau does not feel that this is cardiac related * PEA on 07/21 * Per cardio note: patient does not appear to have CHF, will trend troponin * Discussed with cardio; no amiodarone needed * TSH, Free T4 are normal * ECHO 07/13/17: LV EF is WNL, moderate concentric LVH, Grade I abnormal relaxation pattern Status: Acute (3) Cholangitis--Resolved ERCP Guidewire Perforation of Liver Capsule vs Peripheral Bile Duct Assessment and Plan: * GI (Dr. Damian) on board-->help appreciated * General surgery (Dr. Boyce) on board-->help appreciated * s/p ERCP with removal of stent and sphincterotomy with Dr. Damian 07/13/17 * CXR 07/13/17 does not show air under diaphragm. * Chest CT 07/13/17 shows pneumobilia as well as possible free air beneath Right Hemidiaphragm within Paraesophagel soft tissues. * CT Abdomen/Pelvis 07/13/17 shows gas fluid and stranding in the subcapsular and extracapsular area around Left Lobe Liver. * CT Abdomen/Pelvis on 07/14/17 showed gas and fluid around left lobe liver and along inferior vena cava that is unchanged, no evidence of extravasation of oral contrast from stomach or duodenem. * Abdomen X Ray 07/16/17 showed NO obstruction. * CT Abdomen/Pelvis w/o contrast 07/19/17: Fluid re-identified, which appears similar in size and likely subcapsular in location. No nathan currently evident with in the collection, Small pneumobila. Moderate bilateral pleural effusions and associated consolidations. Small abomdinla ascites. Small pelvic free fluid. Thicken walled under distended urinary bladder which contains air, Pacheco catheter is present * Ct abdomen/pelvis 07/25/17 PO contrast: no acute abdominal or pelvic abnormality; Small right and moderate left pleural effusion. Fatty liver. Small amount of air in the central biliary radicles is likely post surgical in etiology. * GI Dr. Damian spoke with IR 07/15/17 and area is NOT amenable to percutaneous drainage. * GI has signed off as of 07/28/17; No further planned GI intervention. Repeat CT Abdomen 07/25: fluid collection resolved * General surgery has signed off 07/27/17. No further planned intervention from Surgery * 07/30: recommended for 3 weeks of IV antibiotic as minimum and follow CT for resolution Status: Stable (4) Enterococcus faecium Bacteremia * Infectious Disease (Dr. Langford) on the board * Started on Tigecycline 50 mg IV Q12H after 100 mg initial infusion (07/17/17) * Discontinued Meropenem, Ciprofloxicin, and Vancomycin (07/17/17) * 07/14/17: Enterococcus Faecium X2 * Blood Culture: 07/17/17: No growth after 5 days (8:00) * Blood Culture: 07/17/17: Enterococcus Faecium (8:00) * Blood Culture: 07/20/17: No growth after 5 days * Flagyl 250mg IVPB Q8H (active since 07/18/17) * Tigecycline 50mg IV Q12h (active since 07/18/17) * Florastor 250mg PO BID * Per ID, recommended for 3 week minimum of IV antibiotic Status: Acute (5). Atrial Fibrillation/Elevated Troponin * Cardiology (Dr. Chau) on board-->help appreciated * The Atrial Fibrillation is likely secondary to the increased sympathetic tone from the Sepsis and the elevated Troponin likely secondary to the Atrial Fibrillation * Repeat EKG (NSR) 07/21/17 * Restart Toprol XL 25mg PO daily (patient was off beta-blocer prior secondary to cardiac arrest on 07/20/17) * Aspirin 81mg PO daily Status: Acute (6) Bilateral Pneumonia * CT Abdomen/Pelvis 07/13/17 showed bibasilar lingular and right middle lobe mild nonspecific infiltrates consistent with atelectasis/pneumonia * As patient was admitted to hospital within the last month (for Left Buttock Abscess) and has been on antibiotics, this is likely Health Care Associated Pneumonia with increased risk for Multidrug Resistence therefore he was treated with the following: * Meropenem 500 mg IV Q6H (07/14/17 through 07/17/17), Ciprofloxacin 400 mg IV Q12H (07/14/17 through 07/16/17),Vancomycin 1 gm IV Q24H (07/14/17 through ) and then patient started on Tigecycline as mentioned above * CT Abdomen/Pelvis w/o contrast 07/19/17: Fluid re-identified, which appears similar in size and likely subcapsular in location. No nathan currently evident with in the collection, Small pneumobila. Moderate bilateral pleural effusions and associated consolidations. Small abomdinla ascites. Small pelvic free fluid. Thicken walled under distended urinary bladder which contains air, Pacheco catheter is present * Chest xray (07/22/17): moderate left pleural effusion with consolidative opacification in the left mid to lower lung zone. trace right pleural effusion with adjacent right basilar consolidation. cardiomeglay. calcification at the aortic knob * Chest xray (07/23/17): interval removal of endotracheal and BG tube, right central venous catheter extending to the right SVC, worsening now near complete opacification of the left hemithorax with associated large left pleural effusion. Worsening prominent consolidative changes at the right lung base. Cardiomegaly. Calcification at aortic knob. Degenerative changes in the spine and shoulders. prominently dilated/distended loops of bowel in the upper abdomen * Chest xray ordered today s/p dialysis today: improved since 07/23 chest xray * Urine Legionella Ag is negative * Urine Strep pneumoniae Ag: non detected * Mycoplasma IgM is 81 (negative) Ig.07 * Influenza A/B is negative * Urine Culture is negative * Flagyl 250mg IVPB Q8H (active since 07/18/17) * Tigecycline 50mg IV Q12h (active since 07/18/17) * Florastor 250mg PO BID Status: Acute (7). Anion Gap Metabolic Acidosis * Sepsis: CODE SEPSIS was called 07/14/17 * See Assessment and Plans #2, #3, #5 * Due to the severe acidosis he was also started on D5W with 3 amps of NaHCO3 running at 100 ml/hour and this had resolved therefore the D5W NaHCO3 was discontinued 07/15/17. However the Acidosis returned and is likely secondary to the worsening Renal Function/Sepsis. Status: Acute (8). Hyperkalemia * Likely secondary to the Anion Gap Metabolic Acidosis * See Assessment and Plans #2 and #3 * Mild Status: Acute (9). CKD Stage III/Worsening Renal Failure/Hyponatremia * Nephrology Dr. Oconnell * The worsening Renal Function likely secondary to the Sepsis * Worsening Hyponatremia likely dilutional from the IVF initially used to help with the Renal Function. IVF have been discontinued. * Lasix 60 mg IV 2x/day started 07/18/17 to help with the Hyponatremia however there was no significant improvement on 07/19/17 * Despite the Lasix, renal function worsening 07/19/17. [employer] senior health consultant Dr. Larsen was notified 07/19/17 and HD orders have been provided by Dr. Larsen to HD Nurse Ramon Garibay to start HD once Dialysis Catheter is placed by the Surgical Team which is planned for morning of 07/20/17. * Dialysis MWF * Epocrit 10,000 unit IV MWF * Phoslo 1334mg PO TID * 07/30: discussed with Dr. Oconnell; recommended for vascular surgery eval for AV fistula placement prior to discharge Status: Acute on Chronic (10). Headache with Hx CVA Assessment and Plan: * CT Head 07/13/17 was negative for bleed or acute process * GI has signed off as of 07/28/17; No further planned GI intervention. Repeat CT Abdomen 07/25: fluid collection resolved * General surgery has signed off 07/27/17. No further planned intervention from Surgery * Aspirin 81mg PO daily * Plavix 75mg PO daily * Crestor 10mg POqHS Status: Chronic (11) AD (Alzheimer's disease) Assessment and Plan: * Aricept 10 mg PO daily Status: Chronic (12) Choledocholithiasis Assessment and Plan: * s/p ERCP with removal of stent and sphincterotomy with Dr. Damian 07/13/17 * GI has signed off as of 07/28/17; No further planned GI intervention. Repeat CT Abdomen 07/25: fluid collection resolved Status: Stable (13) Anemia Assessment and Plan: * Likely secondary to Chronic Disease: CKD Stage III * Resume Ferrous Sulfate 325 mg PO daily. * Epocrit 10,000 unit IV MWF * HgB/Hct are stable * ON aspirin/Plavix given hx of stroke; no further intervention per GI/General surgery Status: Chronic (14) Hx Left Gluteal abscess Assessment and Plan: * Was I&D by surgery team on 06/26/17 * Treated with Bactrim 800/160 PO Q12H for 7 days S/P discharge 06/27/17 Status: Chronic (15) HLD (hyperlipidemia) Assessment and Plan: * Lopid 600 mg PO BID * Patient takes Lipitor 80 mg PO HS which is not on formulary therefore Crestor 10 mg PO HS (renal dosed). Status: Chronic (16) HTN (hypertension) Assessment and Plan: * As the patient's blood pressure is on the low end and he is off Amiodarone Drip since 07/21, therefore the following medications are on HOLD: Amlodipine 10 mg PO daily, Metoprolol XL 100 mg PO daily, and Losartan 100 mg PO daily are all on HOLD * 07/22: patient is off Amiodarone drip since 07/21; but patient is back in atrial fibrillation but is due for second dialysis today. patient's anti- hypertensives remain on hold Status: Chronic (17) Diabetes Assessment and Plan: * Diabetic Diet since 07/28/17-->adjust given patient is renal dialysis, first time dialysis this hospitalization * Accuchecks QAC and HS * Aspirin 81mg Po daily * Crestor 10mg POqHS * [id number]: 8.3 Status: Chronic (18) History of hypothyroidism Assessment and Plan: * Levothyroxine 50 mcg PO daily * TSH, Free T4 are normal Status: Chronic (19) Overactive bladder Assessment and Plan: * Festerodine 8 mg PO 1x/day * Enlarged Prostate on CT Abdomen/Pelvis * PSA >23.3--->Will need to be follow-up by urology as outpatient with repeat PSA Status: Chronic (20) Hx of glaucoma Assessment and Plan: * Patient's home med Travatan ggt not on formulary. * Started Xalatan ggt in bilateral eyes. Status: Chronic (21) Hx of gastroesophageal reflux (GERD) Assessment and Plan: * Protonix 40 mg IV daily Status: Chronic (22) Prophylactic measure Assessment and Plan: * Protonix 40 mg PO daily * SCDs * Ascorbic Acid 250 mg PO daily * Florastor 250 mg PO 2x/day * Zofran 4 mg IV Q6H PRN N/V * Start Heparin 5000 units subq 12 * Dilaudid 0.5mg IVP Q 4H PRN pain * Intubated on 07/20/17; extubated 07/22/17; on Pressor 07/21; off sedation; off amiodarone IV 07/21 * PT eval in progress * Tolerating Disposition: * GI and General surgery have signed off. * Per ID, recc min 3 weeks IV rx and follow up imaging to r/o residual collection * Vascular surgery eval in progress given nephrology recommendation for AV flstula placement prior to discharge * Patient is first time dialysis; will need dialysis placement prior to discharge * Awaiting subacute rehab eval; note pending AV fistula placement and dialysis placement to be secured
[2017-07-31] MEDS: metroNIDAZOLE IV 500 mg/100 ml 250 MG in Premixed IV 1 EA IVPB SCH ×3 (05:15→22:29)
[2017-07-31] MEDS: Benzocaine/Menthol (Cepacol) Lozenge MT PRN (05:21)
[2017-07-31] MEDS: Levothyroxine 50 MCG TAB PO SCH (06:08)
[2017-07-31] MEDS: (Novolin R) Insulin Human Regular 100 units/ml vial SC SCH ×5 (07:30→22:42)
--- NOTE | 2017-07-31 07:42 | CP.PCM.PN ---
<Buzz Hope - Last Filed: 07/31/17 19:53> Subjective - Date & Time of Evaluation Date of Evaluation: 07/31/17 Time of Evaluation: 07:39 - Subjective Subjective: Patient seen and examined at bedside. Doing well Still complaining of mild chest and abdominal pain No other complaints at this time We discussed the possibility of a AVF and the patient expressed understanding Objective - Vital Signs/Intake and Output Vital Signs (last 24 hours): Temp Pulse Resp BP Pulse Ox 97.9 F 72 20 122/66 99 07/30/17 23:20 07/31/17 04:35 07/30/17 23:20 07/30/17 23:20 07/30/17 23:20 Intake and Output: 07/31/17 07/31/17 06:59 18:59 Intake Total 390 Output Total 200 Balance -200 390 - Medications Medications: Current Medications Albuterol Sulfate (Albuterol 0.042% Inhal Ruby (1.25mg/3ml) Ud) 1.25 mg INH RQ6 PRN PRN Reason: Wheezing Last Admin: 07/28/17 07:05 Dose: 1.25 mg Ascorbic Acid (Vitamin C 250 Mg Tab) 250 mg PO DAILY [facility] Last Admin: 07/29/17 11:44 Dose: 250 mg Aspirin (Aspirin Chewable) 81 mg PO DAILY [facility] Last Admin: 07/30/17 10:41 Dose: 81 mg Benzocaine/Menthol (Cepacol Sore Throat) 1 love MT Q2 PRN PRN Reason: Sore Throat Last Admin: 07/31/17 05:21 Dose: 1 love Calcium Acetate (Phoslo) 1,334 mg PO TID [facility] Last Admin: 07/30/17 18:43 Dose: 1,334 mg Clopidogrel Bisulfate (Plavix) 75 mg PO DAILY [facility] Last Admin: 07/30/17 10:42 Dose: 75 mg Cyproheptadine HCl (Periactin) 4 mg PO BID [facility] Last Admin: 07/30/17 21:57 Dose: Not Given Donepezil HCl (Aricept) 10 mg PO HS [facility] Last Admin: 07/30/17 21:53 Dose: 10 mg Epoetin Romel (Procrit) 10,000 unit IV MWF [facility] Last Admin: 07/29/17 11:43 Dose: 10,000 unit Ferrous Sulfate (Feosol) 325 mg PO Q12H [facility] Last Admin: 07/31/17 06:59 Dose: 325 mg Heparin Sodium (Porcine) (Heparin) 5,000 units SC Q12 [facility] Last Admin: 07/30/17 22:05 Dose: 5,000 units Home Med (Fesoterodine Fumarate [Toviaz]) 8 mg PO DAILY [facility] Hydromorphone HCl (Dilaudid) 0.5 mg IVP Q4 PRN PRN Reason: Pain, severe (8-10) Last Admin: 07/30/17 21:53 Dose: 0.5 mg Metronidazole 250 mg/ (Miscellaneous) 50 mls @ 100 mls/hr IVPB Q8 [facility] Last Admin: 07/31/17 05:15 Dose: 100 mls/hr Tigecycline 50 mg/ Sodium (Chloride) 100 mls @ 100 mls/hr IVPB Q12H [facility] Last Admin: 07/31/17 06:08 Dose: 100 mls/hr Insulin Human Regular (Novolin R) 0 unit SC ACHS [facility] PRN Reason: Protocol Last Admin: 07/30/17 21:40 Dose: Not Given Latanoprost (Xalatan Opht) 0 ml OU HS [facility] Last Admin: 07/30/17 22:08 Dose: 1 ml Levothyroxine Sodium (Synthroid) 50 mcg PO DAILY@0630 [facility] Last Admin: 07/31/17 06:08 Dose: 50 mcg Metoprolol Succinate (Toprol Xl) 25 mg PO DAILY [facility] Last Admin: 07/30/17 11:50 Dose: 25 mg Ondansetron HCl (Zofran Inj) 4 mg IVP Q6 PRN PRN Reason: Nausea/Vomiting Last Admin: 07/29/17 13:43 Dose: 4 mg Pantoprazole Sodium (Protonix Ec Tab) 40 mg PO DAILY [facility] Last Admin: 07/30/17 10:42 Dose: 40 mg Polyethylene Glycol (Miralax) 17 gm PO DAILY [facility] Last Admin: 07/30/17 10:44 Dose: 17 gm Rosuvastatin Calcium (Crestor) 10 mg PO HS [facility] Last Admin: 07/30/17 21:53 Dose: 10 mg Saccharomyces Boulardii (Florastor) 250 mg PO BID [facility] Last Admin: 07/30/17 18:43 Dose: 250 mg - Labs Labs: 07/29/17 06:08 07/29/17 06:08 PT 14.3 SECONDS (9.7-12.2) H 07/16/17 04:00 INR 1.3 07/16/17 04:00 APTT 29 SECONDS (21-34) 07/13/17 20:04 - Additional Findings Additional findings: - Constitutional Appears: Well, Non-toxic, No Acute Distress - Head Exam Head Exam: ATRAUMATIC - Respiratory Exam Respiratory Exam: absent: Rales, Rhonchi, Wheezes Additional comments: coarse bs - Cardiovascular Exam Cardiovascular Exam: Irregular Rhythm, +S1, +S2. absent: REGULAR RHYTHM - GI/Abdominal Exam GI & Abdominal Exam: Soft, Normal Bowel Sounds. absent: Tenderness, Organomegaly, Rebound - Neurological Exam Neurological Exam: Alert, Awake. absent: Oriented x3 Neuro motor strength exam: Left Upper Extremity: 5, Right Upper Extremity: 5, Left Lower Extremity: 3, Right Lower Extremity: 3 Assessment and Plan - Assessment and Plan (Free Text) Assessment: PEA on 07/20/17 * s/p permacath * ROSC returned Chest pain atypical * Cardio (Isac) * ECHO 07/13/17: LV EF is WNL * elevated troponin due to sepsis and afib ERCP Guidewire Perforation of Liver Capsule / Peripheral Bile Duct * GI Signed off * No surgical intervention * Most recent CT does not show fluid collection Enterococcus faecium Bacteremia * ID (Primitivo) * Flagyl/Tigecycline * Repeat cultures negative Atrial Fibrillation * Cards (Isac) * Toprol XL 25 PO daily * Repeat EKG (NSR) 07/21/17 Bilateral Pneumonia * CXR 07/29/17 - mild airspace disease still present, R sided has resolved CKD Stage III * Nephro (Anish) * Dialysis MWF * Vascular (Soper) * Vein mapping * AVF possible thursday Hx CVA * Plavix 75 PO QD AD * Aricept 10 mg PO daily. Anemia * Ferrous Sulfate 325 mg PO daily. HLD * Lopid 600 mg PO BID * Crestor 10 mg PO HS HTN * Metoprolol XL 25 PO QD * Losartan 100 PO QD Diabetes * ISS Q6H * Accuchecks Q6H Hypothyroidism * Levothyroxine 50 PO QD Overactive bladder * Festerodine 8 PO QD Hx of glaucoma * Xalatan ggt Prophylactic measure * Protonix 40 IV QD <Gladys Menchaca V - Last Filed: 08/02/17 21:27> Objective - Vital Signs/Intake and Output Vital Signs (last 24 hours): Temp Pulse Resp BP Pulse Ox 99.0 F 84 18 147/82 99 08/02/17 18:12 08/02/17 19:34 08/02/17 18:12 08/02/17 18:12 08/02/17 18:12 Intake and Output: 08/02/17 08/03/17 18:59 06:59 Output Total 150 Balance -150 - Medications Medications: Current Medications Albuterol Sulfate (Albuterol 0.042% Inhal Ruby (1.25mg/3ml) Ud) 1.25 mg INH RQ6 PRN PRN Reason: Wheezing Last Admin: 08/01/17 14:02 Dose: 1.25 mg Ascorbic Acid (Vitamin C 250 Mg Tab) 250 mg PO DAILY [facility] Last Admin: 08/02/17 09:53 Dose: 250 mg Aspirin (Aspirin Chewable) 81 mg PO DAILY [facility] Last Admin: 08/02/17 09:52 Dose: 81 mg Benzocaine/Menthol (Cepacol Sore Throat) 1 love MT Q2 PRN PRN Reason: Sore Throat Last Admin: 07/31/17 05:21 Dose: 1 love Calcium Acetate (Phoslo) 1,334 mg PO TIDCC [facility] Last Admin: 08/02/17 17:41 Dose: Not Given Clopidogrel Bisulfate (Plavix) 75 mg PO DAILY [facility] Last Admin: 08/02/17 09:53 Dose: 75 mg Donepezil HCl (Aricept) 10 mg PO HS [facility] Last Admin: 08/01/17 21:31 Dose: 10 mg Epoetin Romel (Procrit) 10,000 unit IV MWF [facility] Last Admin: 08/01/17 16:44 Dose: 10,000 unit Ferrous Sulfate (Feosol) 325 mg PO Q12H [facility] Last Admin: 08/02/17 18:47 Dose: 325 mg Heparin Sodium (Porcine) (Heparin) 5,000 units SC Q8 [facility] Last Admin: 08/02/17 13:57 Dose: 5,000 units Home Med (Fesoterodine Fumarate [Toviaz]) 8 mg PO DAILY [facility] Hydromorphone HCl (Dilaudid) 0.5 mg IVP Q4 PRN PRN Reason: Pain, severe (8-10) Last Admin: 07/31/17 17:56 Dose: 0.5 mg Metronidazole 250 mg/ (Miscellaneous) 50 mls @ 100 mls/hr IVPB Q8 [facility] Last Admin: 08/02/17 13:57 Dose: 100 mls/hr Tigecycline 50 mg/ Sodium (Chloride) 50 mls @ 100 mls/hr IVPB Q12H [facility] Last Admin: 08/02/17 20:45 Dose: 100 mls/hr Insulin Human Regular (Novolin R) 0 unit SC ACHS [facility] PRN Reason: Protocol Last Admin: 08/02/17 18:53 Dose: Not Given Latanoprost (Xalatan Opht) 0 ml OU HS [facility] Last Admin: 08/01/17 21:31 Dose: 2.5 ml Levothyroxine Sodium (Synthroid) 50 mcg PO DAILY@0630 [facility] Last Admin: 08/02/17 05:49 Dose: 50 mcg Metoprolol Succinate (Toprol Xl) 25 mg PO DAILY [facility] Last Admin: 08/02/17 09:53 Dose: 25 mg Ondansetron HCl (Zofran Inj) 4 mg IVP Q6 PRN PRN Reason: Nausea/Vomiting Last Admin: 07/29/17 13:43 Dose: 4 mg Pantoprazole Sodium (Protonix Ec Tab) 40 mg PO DAILY [facility] Last Admin: 08/02/17 09:53 Dose: 40 mg Polyethylene Glycol (Miralax) 17 gm PO DAILY [facility] Last Admin: 08/02/17 09:53 Dose: 17 gm Rosuvastatin Calcium (Crestor) 10 mg PO HS [facility] Last Admin: 08/01/17 21:30 Dose: 10 mg Saccharomyces Boulardii (Florastor) 250 mg PO BID [facility] Last Admin: 08/02/17 18:47 Dose: 250 mg - Labs Labs: 08/02/17 08:44 08/02/17 08:44 PT 16.1 SECONDS (9.7-12.2) H 08/02/17 08:44 INR 1.4 08/02/17 08:44 APTT 32 SECONDS (21-34) 08/02/17 08:44 Attending/Attestation - Attestation I have personally seen and examined this patient.: Yes I have fully participated in the care of the patient.: Yes I have reviewed all pertinent clinical information, including history, physical exam and plan: Yes Notes (Text): This is late computer entry for 07/31/17. Patient seen, examined and case discussed with day-time resident. Patient seen at bedside in the afternoon. Completed dialysis earlier this morning. He is arousable, awake and alert. No family present at bedside. Note clarification to the resident note: patient has dementia, unclear what he understands and what he does not understand. Will need to follow-up with patient 's niece, Lyndsey Youssef in regards to AV fistula. Discussed with case management, patient will need dialysis placement since he is first time dialysis tomorrow and placement for subacute rehab for IV abx for bacteremia and deconditioning Discussed with nephrology, recommends patient to AV fistula placement prior to discharge. Vascular surgery consult; tentative AV fistula placement for 08/03/17 F/u PT/OT Assessment/Plan (1) Cardiac Arrest PEA on 07/20/17 Assessment and Plan: * Status post-procedure; patient went into PEA on 07/20 ROSC returned; intubated 07/20/17-[id number] * Chest xray (07/22/17): moderate left pleural effusion with consolidative opacification in the left mid to lower lung zone. trace right pleural effusion with adjacent right basilar consolidation. cardiomeglay. calcification at the aortic knob * 07/29; patient is awake, alert, eating food at bedside; PT note recommending patient to subacute rehab * 07/30: same as above; discussed with case management to setup patient for subacute rehab and dialysis placement post hospitalization Status: Acute (2) Chest pain Assessment and Plan: * Patient with atypical chest pain history * Cardio Dr. Chau does not feel that this is cardiac related * PEA on 07/21 * Per cardio note: patient does not appear to have CHF, will trend troponin * Discussed with cardio; no amiodarone needed * TSH, Free T4 are normal * ECHO 07/13/17: LV EF is WNL, moderate concentric LVH, Grade I abnormal relaxation pattern Status: Acute (3) Cholangitis--Resolved ERCP Guidewire Perforation of Liver Capsule vs Peripheral Bile Duct Assessment and Plan: * GI (Dr. Damian) on board-->help appreciated * General surgery (Dr. Boyce) on board-->help appreciated * s/p ERCP with removal of stent and sphincterotomy with Dr. Damian 07/13/17 * CXR 07/13/17 does not show air under diaphragm. * Chest CT 07/13/17 shows pneumobilia as well as possible free air beneath Right Hemidiaphragm within Paraesophagel soft tissues. * CT Abdomen/Pelvis 07/13/17 shows gas fluid and stranding in the subcapsular and extracapsular area around Left Lobe Liver. * CT Abdomen/Pelvis on 07/14/17 showed gas and fluid around left lobe liver and along inferior vena cava that is unchanged, no evidence of extravasation of oral contrast from stomach or duodenem. * Abdomen X Ray 07/16/17 showed NO obstruction. * CT Abdomen/Pelvis w/o contrast 07/19/17: Fluid re-identified, which appears similar in size and likely subcapsular in location. No nathan currently evident with in the collection, Small pneumobila. Moderate bilateral pleural effusions and associated consolidations. Small abomdinla ascites. Small pelvic free fluid. Thicken walled under distended urinary bladder which contains air, Pacheco catheter is present * Ct abdomen/pelvis 07/25/17 PO contrast: no acute abdominal or pelvic abnormality; Small right and moderate left pleural effusion. Fatty liver. Small amount of air in the central biliary radicles is likely post surgical in etiology. * GI Dr. Damian spoke with IR 07/15/17 and area is NOT amenable to percutaneous drainage. * GI has signed off as of 07/28/17; No further planned GI intervention. Repeat CT Abdomen 07/25: fluid collection resolved * General surgery has signed off 07/27/17. No further planned intervention from Surgery * 07/30: recommended for 3 weeks of IV antibiotic as minimum and follow CT for resolution Status: Stable (4) Enterococcus faecium Bacteremia * Infectious Disease (Dr. Langford) on the board * Started on Tigecycline 50 mg IV Q12H after 100 mg initial infusion (07/17/17) * Discontinued Meropenem, Ciprofloxicin, and Vancomycin (07/17/17) * 07/14/17: Enterococcus Faecium X2 * Blood Culture: 07/17/17: No growth after 5 days (8:00) * Blood Culture: 07/17/17: Enterococcus Faecium (8:00) * Blood Culture: 07/20/17: No growth after 5 days * Flagyl 250mg IVPB Q8H (active since 07/18/17) * Tigecycline 50mg IV Q12h (active since 07/18/17) * Florastor 250mg PO BID * 07/30: Per ID, recommended for 3 week minimum of IV antibiotic Status: Acute (5). Atrial Fibrillation/Elevated Troponin * Cardiology (Dr. Chau) on board-->help appreciated * The Atrial Fibrillation is likely secondary to the increased sympathetic tone from the Sepsis and the elevated Troponin likely secondary to the Atrial Fibrillation * Repeat EKG (NSR) 07/21/17 * Restart Toprol XL 25mg PO daily (patient was off beta-elkin prior secondary to cardiac arrest on 07/20/17) * On aspirin 81mg PO daily Status: Acute (6) Bilateral Pneumonia * CT Abdomen/Pelvis 07/13/17 showed bibasilar lingular and right middle lobe mild nonspecific infiltrates consistent with atelectasis/pneumonia * As patient was admitted to hospital within the last month (for Left Buttock Abscess) and has been on antibiotics, this is likely Health Care Associated Pneumonia with increased risk for Multidrug Resistence therefore he was treated with the following: * Meropenem 500 mg IV Q6H (07/14/17 through 07/17/17), Ciprofloxacin 400 mg IV Q12H (07/14/17 through 07/16/17),Vancomycin 1 gm IV Q24H (07/14/17 through ) and then patient started on Tigecycline as mentioned above * CT Abdomen/Pelvis w/o contrast 07/19/17: Fluid re-identified, which appears similar in size and likely subcapsular in location. No nathan currently evident with in the collection, Small pneumobila. Moderate bilateral pleural effusions and associated consolidations. Small abomdinla ascites. Small pelvic free fluid. Thicken walled under distended urinary bladder which contains air, Pacheco catheter is present * Chest xray (07/22/17): moderate left pleural effusion with consolidative opacification in the left mid to lower lung zone. trace right pleural effusion with adjacent right basilar consolidation. cardiomeglay. calcification at the aortic knob * Chest xray (07/23/17): interval removal of endotracheal and BG tube, right central venous catheter extending to the right SVC, worsening now near complete opacification of the left hemithorax with associated large left pleural effusion. Worsening prominent consolidative changes at the right lung base. Cardiomegaly. Calcification at aortic knob. Degenerative changes in the spine and shoulders. prominently dilated/distended loops of bowel in the upper abdomen * Chest xray (07/29): bilateral interval improvement in right basilar limited patchy density and mild left pleural effusion with signficiant residual noted at the left base. Left basilar atelectasis infiltrate remains posterior to the left heart. No pulmonary vascular derangement. Continued clinical and radiographic monitor advised. * Urine Legionella Ag is negative * Urine Strep pneumoniae Ag: non detected * Mycoplasma IgM is 81 (negative) Ig.07 * Influenza A/B is negative * Urine Culture is negative * Flagyl 250mg IVPB Q8H (active since 07/18/17) * Tigecycline 50mg IV Q12h (active since 07/18/17) * Florastor 250mg PO BID Status: Acute (7). Anion Gap Metabolic Acidosis * Sepsis: CODE SEPSIS was called 07/14/17 * See Assessment and Plans #2, #3, #5 * Due to the severe acidosis he was also started on D5W with 3 amps of NaHCO3 running at 100 ml/hour and this had resolved therefore the D5W NaHCO3 was discontinued 07/15/17. However the Acidosis returned and is likely secondary to the worsening Renal Function/Sepsis. Status: Acute (8). Hyperkalemia * Likely secondary to the Anion Gap Metabolic Acidosis * See Assessment and Plans #2 and #3 * Mild Status: Acute (9). CKD Stage III/Worsening Renal Failure/Hyponatremia * Nephrology Dr. Oconnell * The worsening Renal Function likely secondary to the Sepsis * Worsening Hyponatremia likely dilutional from the IVF initially used to help with the Renal Function. IVF have been discontinued. * Lasix 60 mg IV 2x/day started 07/18/17 to help with the Hyponatremia however there was no significant improvement on 07/19/17 * Despite the Lasix, renal function worsening 07/19/17. Speech Therapist product inspection supervisor Dr. Larsen was notified 07/19/17 and HD orders have been provided by Dr. Larsen to HD Nurse Ramon Garibay to start HD once Dialysis Catheter is placed by the Surgical Team which is planned for morning of 07/20/17. * Dialysis MWF * Epocrit 10,000 unit IV MWF * Phoslo 1334mg PO TID * 07/30: discussed with Dr. Oconnell; recommended for vascular surgery eval for AV fistula placement prior to discharge * 07/31 Vascular surgery; AV fistula placement for Thursday Status: Acute on Chronic (10). Headache with Hx CVA-->Resolved Assessment and Plan: * CT Head 07/13/17 was negative for bleed or acute process * GI has signed off as of 07/28/17; No further planned GI intervention. Repeat CT Abdomen 07/25: fluid collection resolved * General surgery has signed off 07/27/17. No further planned intervention from Surgery * Aspirin 81mg PO daily * Plavix 75mg PO daily * Crestor 10mg POqHS Status: Chronic (11) AD (Alzheimer's disease) Assessment and Plan: * Aricept 10 mg PO daily Status: Chronic (12) Choledocholithiasis Assessment and Plan: * s/p ERCP with removal of stent and sphincterotomy with Dr. Damian 07/13/17 * GI has signed off as of 07/28/17; No further planned GI intervention. Repeat CT Abdomen 07/25: fluid collection resolved Status: Stable (13) Anemia Assessment and Plan: * Likely secondary to Chronic Disease: CKD Stage III * Resume Ferrous Sulfate 325 mg PO daily. * Epocrit 10,000 unit IV MWF * HgB/Hct are stable * ON aspirin/Plavix given hx of stroke; no further intervention per GI/General surgery Status: Chronic (14) Hx Left Gluteal abscess Assessment and Plan: * Was I&D by surgery team on 06/26/17 * Treated with Bactrim 800/160 PO Q12H for 7 days S/P discharge 06/27/17 Status: Chronic (15) HLD (hyperlipidemia) Assessment and Plan: * Lopid 600 mg PO BID * Patient takes Lipitor 80 mg PO HS which is not on formulary therefore Crestor 10 mg PO HS (renal dosed). Status: Chronic (16) HTN (hypertension) Assessment and Plan: * As the patient's blood pressure is on the low end and he is off Amiodarone Drip since 07/21, therefore the following medications are on HOLD: Amlodipine 10 mg PO daily, Metoprolol XL 100 mg PO daily, and Losartan 100 mg PO daily are all on HOLD * 07/22: patient is off Amiodarone drip since 07/21; but patient is back in atrial fibrillation but is due for second dialysis today. patient's anti- hypertensives remain on hold Status: Chronic (17) Diabetes Assessment and Plan: * Diabetic Diet since 07/28/17-->adjust given patient is renal dialysis, first time dialysis this hospitalization * Accuchecks QAC and HS * Aspirin 81mg Po daily * Crestor 10mg POqHS * [id number]: 8.3 Status: Chronic (18) History of hypothyroidism Assessment and Plan: * Levothyroxine 50 mcg PO daily * TSH, Free T4 are normal Status: Chronic (19) Overactive bladder Assessment and Plan: * Festerodine 8 mg PO 1x/day * Enlarged Prostate on CT Abdomen/Pelvis * PSA >23.3--->Will need to be follow-up by urology as outpatient with repeat PSA Status: Chronic (20) Hx of glaucoma Assessment and Plan: * Patient's home med Travatan ggt not on formulary. * Started Xalatan ggt in bilateral eyes. Status: Chronic (21) Hx of gastroesophageal reflux (GERD) Assessment and Plan: * Protonix 40 mg IV daily Status: Chronic (22) Prophylactic measure Assessment and Plan: * Protonix 40 mg PO daily * SCDs * Ascorbic Acid 250 mg PO daily * Florastor 250 mg PO 2x/day * Zofran 4 mg IV Q6H PRN N/V * Intubated on 07/20/17; extubated 07/22/17; on Pressor 07/21; off sedation; off amiodarone IV 07/21 * PT eval in progress * Tolerating diet Disposition: * GI and General surgery have signed off. * Per ID, recc min 3 weeks IV rx and follow up imaging to r/o residual collection from 07/30 * Vascular surgery eval in progress given nephrology recommendation for AV flstula placement * tentative date for 08/03/17 * Awaiting subacute rehab eval; note pending AV fistula placement and dialysis placement to be secured
[2017-07-31 08:16] LABS: BASO # 0.2 K/uL (0.0-0.2); BASO % 1.3 % (0.0-2.0); EOS # 0.6 K/uL (0.0-0.7); EOS % 4.4 % (0.0-4.0); HEMATOCRIT 26.6 % (35.0-51.0); LYMPH # 2.8 K/uL (1.0-4.3); LYMPH % 20.4 % (20.0-40.0); MEAN CORPUSCULAR HEMOGLOBIN 27.7 pg (27.0-31.0); MEAN CORPUSCULAR HGB CONC 32.6 g/dL (33.0-37.0); MEAN PLATELET VOLUME 8.3 fL (7.2-11.7); MONO # 2.1 K/uL (0.0-0.8); MONO % 15.8 % (0.0-10.0); RED CELL DISTRIBUTION WIDTH 16.1 % (11.5-14.5); WHITE BLOOD COUNT 13.6 K/uL (4.8-10.8)
--- NOTE | 2017-07-31 08:41 | CP.PCM.PN ---
<Dianne Salinas - Last Filed: 07/31/17 08:38> Subjective - Date & Time of Evaluation Date of Evaluation: 07/31/17 Time of Evaluation: 08:38 - Subjective Subjective: Gastroenterology Fellow/PGY5 Progress Note Patient tolerating soft diet. Continues to have mild abdominal pain. No bowel movement yesterday. Nursing notes no acute events overnight. A 12-point review of systems not completed due to advanced Dementia. Objective - Vital Signs/Intake and Output Vital Signs (last 24 hours): Temp Pulse Resp BP Pulse Ox 98 F 78 18 121/73 99 07/31/17 07:00 07/31/17 07:00 07/31/17 07:00 07/31/17 07:00 07/31/17 07:00 Intake and Output: 07/31/17 07/31/17 06:59 18:59 Intake Total 390 Output Total 200 Balance -200 390 - Medications Medications: Current Medications Albuterol Sulfate (Albuterol 0.042% Inhal Ruby (1.25mg/3ml) Ud) 1.25 mg INH RQ6 PRN PRN Reason: Wheezing Last Admin: 07/28/17 07:05 Dose: 1.25 mg Ascorbic Acid (Vitamin C 250 Mg Tab) 250 mg PO DAILY [facility] Last Admin: 07/29/17 11:44 Dose: 250 mg Aspirin (Aspirin Chewable) 81 mg PO DAILY [facility] Last Admin: 07/30/17 10:41 Dose: 81 mg Benzocaine/Menthol (Cepacol Sore Throat) 1 love MT Q2 PRN PRN Reason: Sore Throat Last Admin: 07/31/17 05:21 Dose: 1 love Calcium Acetate (Phoslo) 1,334 mg PO TID [facility] Last Admin: 07/30/17 18:43 Dose: 1,334 mg Clopidogrel Bisulfate (Plavix) 75 mg PO DAILY [facility] Last Admin: 07/30/17 10:42 Dose: 75 mg Cyproheptadine HCl (Periactin) 4 mg PO BID [facility] Last Admin: 07/30/17 21:57 Dose: Not Given Donepezil HCl (Aricept) 10 mg PO HS [facility] Last Admin: 07/30/17 21:53 Dose: 10 mg Epoetin Romel (Procrit) 10,000 unit IV MWF [facility] Last Admin: 07/29/17 11:43 Dose: 10,000 unit Ferrous Sulfate (Feosol) 325 mg PO Q12H [facility] Last Admin: 07/31/17 06:59 Dose: 325 mg Heparin Sodium (Porcine) (Heparin) 5,000 units SC Q12 [facility] Last Admin: 07/30/17 22:05 Dose: 5,000 units Home Med (Fesoterodine Fumarate [Toviaz]) 8 mg PO DAILY [facility] Hydromorphone HCl (Dilaudid) 0.5 mg IVP Q4 PRN PRN Reason: Pain, severe (8-10) Last Admin: 07/30/17 21:53 Dose: 0.5 mg Metronidazole 250 mg/ (Miscellaneous) 50 mls @ 100 mls/hr IVPB Q8 [facility] Last Admin: 07/31/17 05:15 Dose: 100 mls/hr Tigecycline 50 mg/ Sodium (Chloride) 100 mls @ 100 mls/hr IVPB Q12H [facility] Last Admin: 07/31/17 06:08 Dose: 100 mls/hr Insulin Human Regular (Novolin R) 0 unit SC ACHS [facility] PRN Reason: Protocol Last Admin: 07/30/17 21:40 Dose: Not Given Latanoprost (Xalatan Opht) 0 ml OU HS [facility] Last Admin: 07/30/17 22:08 Dose: 1 ml Levothyroxine Sodium (Synthroid) 50 mcg PO DAILY@0630 [facility] Last Admin: 07/31/17 06:08 Dose: 50 mcg Metoprolol Succinate (Toprol Xl) 25 mg PO DAILY [facility] Last Admin: 07/30/17 11:50 Dose: 25 mg Ondansetron HCl (Zofran Inj) 4 mg IVP Q6 PRN PRN Reason: Nausea/Vomiting Last Admin: 07/29/17 13:43 Dose: 4 mg Pantoprazole Sodium (Protonix Ec Tab) 40 mg PO DAILY [facility] Last Admin: 07/30/17 10:42 Dose: 40 mg Polyethylene Glycol (Miralax) 17 gm PO DAILY [facility] Last Admin: 07/30/17 10:44 Dose: 17 gm Rosuvastatin Calcium (Crestor) 10 mg PO HS [facility] Last Admin: 07/30/17 21:53 Dose: 10 mg Saccharomyces Boulardii (Florastor) 250 mg PO BID [facility] Last Admin: 07/30/17 18:43 Dose: 250 mg - Labs Labs: 07/31/17 08:08 07/29/17 06:08 PT 14.3 SECONDS (9.7-12.2) H 07/16/17 04:00 INR 1.3 07/16/17 04:00 APTT 29 SECONDS (21-34) 07/13/17 20:04 - Constitutional Appears: Non-toxic, No Acute Distress - Head Exam Head Exam: ATRAUMATIC, NORMOCEPHALIC - Eye Exam Eye Exam: EOMI, PERRL Pupil Exam: PERRL. absent: Miosis, Mydriatic - ENT Exam ENT Exam: Mucous Membranes Moist, Normal Oropharynx - Neck Exam Neck Exam: Full ROM, Normal Inspection - Respiratory Exam Respiratory Exam: Clear to Ausculation Bilateral. absent: Rales, Rhonchi, Wheezes - Cardiovascular Exam Cardiovascular Exam: RRR, +S1, +S2. absent: Gallop, Rubs - GI/Abdominal Exam GI & Abdominal Exam: Soft, Tenderness, Normal Bowel Sounds. absent: Distended, Firm, Guarding, Rigid, Organomegaly, Rebound Additional comments: mild epigastric discomfort to palpation - Extremities Exam Extremities Exam: Normal Inspection. absent: Pedal Edema - Neurological Exam Neurological Exam: Alert, Awake - Psychiatric Exam Psychiatric exam: Normal Affect, Normal Mood - Skin Skin Exam: Dry, Intact, Normal Color, Warm Assessment and Plan - Assessment and Plan (Free Text) Assessment: 82 year old male with history of Diabetes, Hyperlipidemia, Hypertension, Hypothyroidism, CKD, Alzheimer's Dementia, CVA on Plavix, and cholangitis s/p ERCP with CBD stent (04/2017). Active treatment of renal failure on HD MWF, resolved for hypoxic VDRF s/p PEA arrest with ROSC (07/20- post extubation-07/22) HCAP, E. faecium Bacteremia with negative repeat blood cultures to date, and ERCP guidewire pneumoperitoneum with resolved hepatic subcapsular/extracapsular fluid collection on CT A/P 07/25/17. Plan: >tolerating soft diet >continue Miralax daily >ID managing-3 week antibiotic course >nephrology managing- on hemodialysis >vascular surgery managing-managing evaluation/preparation for AV fistula >subcapsular fluid collection resolved <Gavino Damian - Last Filed: 07/31/17 10:49> Objective - Vital Signs/Intake and Output Vital Signs (last 24 hours): Temp Pulse Resp BP Pulse Ox 98 F 72 18 121/73 99 07/31/17 07:00 07/31/17 07:43 07/31/17 07:00 07/31/17 07:00 07/31/17 07:00 Intake and Output: 07/31/17 07/31/17 06:59 18:59 Intake Total 390 Output Total 200 Balance -200 390 - Medications Medications: Current Medications Albuterol Sulfate (Albuterol 0.042% Inhal Ruby (1.25mg/3ml) Ud) 1.25 mg INH RQ6 PRN PRN Reason: Wheezing Last Admin: 07/28/17 07:05 Dose: 1.25 mg Ascorbic Acid (Vitamin C 250 Mg Tab) 250 mg PO DAILY [facility] Last Admin: 07/29/17 11:44 Dose: 250 mg Aspirin (Aspirin Chewable) 81 mg PO DAILY [facility] Last Admin: 07/30/17 10:41 Dose: 81 mg Benzocaine/Menthol (Cepacol Sore Throat) 1 love MT Q2 PRN PRN Reason: Sore Throat Last Admin: 07/31/17 05:21 Dose: 1 love Calcium Acetate (Phoslo) 1,334 mg PO TID [facility] Last Admin: 07/30/17 18:43 Dose: 1,334 mg Clopidogrel Bisulfate (Plavix) 75 mg PO DAILY [facility] Last Admin: 07/30/17 10:42 Dose: 75 mg Cyproheptadine HCl (Periactin) 4 mg PO BID [facility] Last Admin: 07/30/17 21:57 Dose: Not Given Donepezil HCl (Aricept) 10 mg PO HS [facility] Last Admin: 07/30/17 21:53 Dose: 10 mg Epoetin Romel (Procrit) 10,000 unit IV MWF [facility] Ferrous Sulfate (Feosol) 325 mg PO Q12H [facility] Last Admin: 07/31/17 06:59 Dose: 325 mg Heparin Sodium (Porcine) (Heparin) 5,000 units SC Q12 [facility] Last Admin: 07/30/17 22:05 Dose: 5,000 units Home Med (Fesoterodine Fumarate [Toviaz]) 8 mg PO DAILY [facility] Hydromorphone HCl (Dilaudid) 0.5 mg IVP Q4 PRN PRN Reason: Pain, severe (8-10) Last Admin: 07/30/17 21:53 Dose: 0.5 mg Metronidazole 250 mg/ (Miscellaneous) 50 mls @ 100 mls/hr IVPB Q8 [facility] Last Admin: 07/31/17 05:15 Dose: 100 mls/hr Tigecycline 50 mg/ Sodium (Chloride) 100 mls @ 100 mls/hr IVPB Q12H [facility] Last Admin: 07/31/17 06:08 Dose: 100 mls/hr Insulin Human Regular (Novolin R) 0 unit SC ACHS [facility] PRN Reason: Protocol Last Admin: 07/30/17 21:40 Dose: Not Given Latanoprost (Xalatan Opht) 0 ml OU HS [facility] Last Admin: 07/30/17 22:08 Dose: 1 ml Levothyroxine Sodium (Synthroid) 50 mcg PO DAILY@0630 [facility] Last Admin: 07/31/17 06:08 Dose: 50 mcg Metoprolol Succinate (Toprol Xl) 25 mg PO DAILY [facility] Last Admin: 07/30/17 11:50 Dose: 25 mg Ondansetron HCl (Zofran Inj) 4 mg IVP Q6 PRN PRN Reason: Nausea/Vomiting Last Admin: 07/29/17 13:43 Dose: 4 mg Pantoprazole Sodium (Protonix Ec Tab) 40 mg PO DAILY [facility] Last Admin: 07/30/17 10:42 Dose: 40 mg Polyethylene Glycol (Miralax) 17 gm PO DAILY [facility] Last Admin: 07/30/17 10:44 Dose: 17 gm Rosuvastatin Calcium (Crestor) 10 mg PO HS [facility] Last Admin: 07/30/17 21:53 Dose: 10 mg Saccharomyces Boulardii (Florastor) 250 mg PO BID [facility] Last Admin: 07/30/17 18:43 Dose: 250 mg - Labs Labs: 07/31/17 08:08 07/31/17 08:08 PT 14.3 SECONDS (9.7-12.2) H 07/16/17 04:00 INR 1.3 07/16/17 04:00 APTT 29 SECONDS (21-34) 07/13/17 20:04 Attending/Attestation - Attestation I have personally seen and examined this patient.: Yes I have fully participated in the care of the patient.: Yes I have reviewed all pertinent clinical information, including history, physical exam and plan: Yes Notes (Text): 07/31/17 10:47 82 year old male with h/o DM, HTN, HLD, Hypothyroidism, Dementia, CKD, h/o cholangitis s/p ERCP with stent, subsequent ERCP complicated by guidewire perforation, bacteremia/sepsis, renal failure, dialysis, respiratory failure requiring mechanical ventilation. Respiratory status improved, no longer on vent , pain resolved, perforation resolved, tolerating diet. Transfered to the floor. Doing well. On dialysis. 1. Perforation of bile duct 2. Other injury of liver Plan: -no abdominal pain -regular diet as tolerated -continue abx per ID -supportive measures -perforation/fluid collection is resolved on follow up imaging
[2017-07-31 08:46] LABS: BILIRUBIN,TOTAL 0.8 mg/dL (0.2-1.3); CALCIUM 7.4 mg/dl (8.6-10.4); MAGNESIUM 1.8 mg/dL (1.6-2.3); POTASSIUM 4.2 mmol/L (3.6-5.2); TOTAL PROTEIN 4.7 g/dL (6.3-8.3)
[2017-07-31] MEDS: Epoetin Alfa 10,000 unit/ml Dialysis IV SCH (11:04)
[2017-07-31] MEDS: Saccharomyces Boulardi 250 mg Cap PO SCH ×2 (12:42→17:26)
[2017-07-31] MEDS: POLYETHYLENE GLYCOL 3350 17 GM/Dose PACKET PO SCH (12:43)
[2017-07-31] MEDS: Metoprolol Succinate 25 mg XL Tab PO SCH (12:57)
[2017-07-31] MEDS: Pantoprazole 40 mg EC Tab PO SCH (12:57)
--- NOTE | 2017-07-31 13:24 | CP.PCM.PN ---
Subjective - Date & Time of Evaluation Date of Evaluation: 07/24/17 Time of Evaluation: 13:21 - Subjective Subjective: seen on dialysis; tolerating UF 1500ml only c/o mild abdominal pains labs reviewed- acceptable BP stable; afebrile Objective - Vital Signs/Intake and Output Vital Signs (last 24 hours): Temp Pulse Resp BP Pulse Ox 97.3 F L 92 H 17 109/57 L 98 07/31/17 09:00 07/31/17 11:58 07/31/17 09:00 07/31/17 11:00 07/31/17 09:00 Intake and Output: 07/31/17 07/31/17 06:59 18:59 Intake Total 390 Output Total 200 Balance -200 390 - Medications Medications: Current Medications Albuterol Sulfate (Albuterol 0.042% Inhal Ruby (1.25mg/3ml) Ud) 1.25 mg INH RQ6 PRN PRN Reason: Wheezing Last Admin: 07/28/17 07:05 Dose: 1.25 mg Ascorbic Acid (Vitamin C 250 Mg Tab) 250 mg PO DAILY [facility] Last Admin: 07/31/17 12:57 Dose: 250 mg Aspirin (Aspirin Chewable) 81 mg PO DAILY [facility] Last Admin: 07/31/17 12:58 Dose: 81 mg Benzocaine/Menthol (Cepacol Sore Throat) 1 love MT Q2 PRN PRN Reason: Sore Throat Last Admin: 07/31/17 05:21 Dose: 1 love Calcium Acetate (Phoslo) 1,334 mg PO TID [facility] Last Admin: 07/31/17 12:59 Dose: 1,334 mg Clopidogrel Bisulfate (Plavix) 75 mg PO DAILY [facility] Last Admin: 07/31/17 12:57 Dose: 75 mg Cyproheptadine HCl (Periactin) 4 mg PO BID [facility] Last Admin: 07/31/17 12:43 Dose: Not Given Donepezil HCl (Aricept) 10 mg PO HS [facility] Last Admin: 07/30/17 21:53 Dose: 10 mg Epoetin Romel (Procrit) 10,000 unit IV MWF [facility] Last Admin: 07/31/17 11:04 Dose: 10,000 unit Ferrous Sulfate (Feosol) 325 mg PO Q12H [facility] Last Admin: 07/31/17 06:59 Dose: 325 mg Heparin Sodium (Porcine) (Heparin) 5,000 units SC Q12 [facility] Last Admin: 07/31/17 12:42 Dose: Not Given Home Med (Fesoterodine Fumarate [Toviaz]) 8 mg PO DAILY [facility] Hydromorphone HCl (Dilaudid) 0.5 mg IVP Q4 PRN PRN Reason: Pain, severe (8-10) Last Admin: 07/30/17 21:53 Dose: 0.5 mg Metronidazole 250 mg/ (Miscellaneous) 50 mls @ 100 mls/hr IVPB Q8 [facility] Last Admin: 07/31/17 05:15 Dose: 100 mls/hr Tigecycline 50 mg/ Sodium (Chloride) 100 mls @ 100 mls/hr IVPB Q12H [facility] Last Admin: 07/31/17 06:08 Dose: 100 mls/hr Insulin Human Regular (Novolin R) 0 unit SC ACHS [facility] PRN Reason: Protocol Last Admin: 07/31/17 12:43 Dose: Not Given Latanoprost (Xalatan Opht) 0 ml OU HS [facility] Last Admin: 07/30/17 22:08 Dose: 1 ml Levothyroxine Sodium (Synthroid) 50 mcg PO DAILY@0630 [facility] Last Admin: 07/31/17 06:08 Dose: 50 mcg Metoprolol Succinate (Toprol Xl) 25 mg PO DAILY [facility] Last Admin: 07/31/17 12:57 Dose: 25 mg Ondansetron HCl (Zofran Inj) 4 mg IVP Q6 PRN PRN Reason: Nausea/Vomiting Last Admin: 07/29/17 13:43 Dose: 4 mg Pantoprazole Sodium (Protonix Ec Tab) 40 mg PO DAILY [facility] Last Admin: 07/31/17 12:57 Dose: 40 mg Polyethylene Glycol (Miralax) 17 gm PO DAILY [facility] Last Admin: 07/31/17 12:43 Dose: Not Given Rosuvastatin Calcium (Crestor) 10 mg PO HS [facility] Last Admin: 07/30/17 21:53 Dose: 10 mg Saccharomyces Boulardii (Florastor) 250 mg PO BID [facility] Last Admin: 07/31/17 12:42 Dose: Not Given - Labs Labs: 07/31/17 08:08 07/31/17 08:08 PT 14.3 SECONDS (9.7-12.2) H 07/16/17 04:00 INR 1.3 07/16/17 04:00 APTT 29 SECONDS (21-34) 07/13/17 20:04 - Constitutional Appears: Non-toxic, No Acute Distress - Head Exam Head Exam: ATRAUMATIC, NORMAL INSPECTION - Eye Exam Eye Exam: EOMI, Normal appearance - Neck Exam Neck Exam: Normal Inspection. absent: Tenderness - Respiratory Exam Respiratory Exam: Clear to Ausculation Bilateral, NORMAL BREATHING PATTERN - Cardiovascular Exam Cardiovascular Exam: REGULAR RHYTHM, +S1 - GI/Abdominal Exam GI & Abdominal Exam: Soft. absent: Tenderness - Extremities Exam Extremities Exam: Normal Inspection. absent: Tenderness - Neurological Exam Neurological Exam: Alert, CN II-XII Intact - Skin Skin Exam: Intact, Warm Assessment and Plan (1) Hx of stroke without residual deficits Status: Acute (2) History of hypertension Status: Chronic (3) JAY JAY (acute kidney injury) Status: Acute (4) Type 2 diabetes mellitus with diabetic nephropathy Status: Acute (5) Proteinuria Status: Acute (6) Hyponatremia with excess extracellular fluid volume Status: Resolved (7) ESRD (end stage renal disease) Status: Acute - Assessment and Plan (Free Text) Plan: Same dialysis MWF Same meds Vein mapping- possible av access
--- NOTE | 2017-07-31 15:28 | CP.PCM.PN ---
Subjective - Date & Time of Evaluation Date of Evaluation: 07/31/17 Time of Evaluation: 09:00 - Subjective Subjective: less abd pain no fever iv rx renewed Objective - Vital Signs/Intake and Output Vital Signs (last 24 hours): Temp Pulse Resp BP Pulse Ox 97.2 F L 92 H 16 100/53 L 98 07/31/17 12:15 07/31/17 11:58 07/31/17 12:15 07/31/17 12:15 07/31/17 12:15 Intake and Output: 07/31/17 07/31/17 06:59 18:59 Intake Total 740 Output Total 200 200 Balance -200 540 - Medications Medications: Current Medications Albuterol Sulfate (Albuterol 0.042% Inhal Ruby (1.25mg/3ml) Ud) 1.25 mg INH RQ6 PRN PRN Reason: Wheezing Last Admin: 07/28/17 07:05 Dose: 1.25 mg Ascorbic Acid (Vitamin C 250 Mg Tab) 250 mg PO DAILY [facility] Last Admin: 07/31/17 12:57 Dose: 250 mg Aspirin (Aspirin Chewable) 81 mg PO DAILY [facility] Last Admin: 07/31/17 12:58 Dose: 81 mg Benzocaine/Menthol (Cepacol Sore Throat) 1 love MT Q2 PRN PRN Reason: Sore Throat Last Admin: 07/31/17 05:21 Dose: 1 love Calcium Acetate (Phoslo) 1,334 mg PO TID [facility] Last Admin: 07/31/17 12:59 Dose: 1,334 mg Clopidogrel Bisulfate (Plavix) 75 mg PO DAILY [facility] Last Admin: 07/31/17 12:57 Dose: 75 mg Cyproheptadine HCl (Periactin) 4 mg PO BID [facility] Last Admin: 07/31/17 12:43 Dose: Not Given Donepezil HCl (Aricept) 10 mg PO HS [facility] Last Admin: 07/30/17 21:53 Dose: 10 mg Epoetin Romel (Procrit) 10,000 unit IV MWF [facility] Last Admin: 07/31/17 11:04 Dose: 10,000 unit Ferrous Sulfate (Feosol) 325 mg PO Q12H [facility] Last Admin: 07/31/17 06:59 Dose: 325 mg Heparin Sodium (Porcine) (Heparin) 5,000 units SC Q12 [facility] Last Admin: 07/31/17 12:42 Dose: Not Given Home Med (Fesoterodine Fumarate [Toviaz]) 8 mg PO DAILY [facility] Hydromorphone HCl (Dilaudid) 0.5 mg IVP Q4 PRN PRN Reason: Pain, severe (8-10) Last Admin: 07/30/17 21:53 Dose: 0.5 mg Metronidazole 250 mg/ (Miscellaneous) 50 mls @ 100 mls/hr IVPB Q8 [facility] Last Admin: 07/31/17 14:07 Dose: 100 mls/hr Tigecycline 50 mg/ Sodium (Chloride) 100 mls @ 100 mls/hr IVPB Q12H [facility] Last Admin: 07/31/17 06:08 Dose: 100 mls/hr Insulin Human Regular (Novolin R) 0 unit SC ACHS [facility] PRN Reason: Protocol Last Admin: 07/31/17 12:43 Dose: Not Given Latanoprost (Xalatan Opht) 0 ml OU HS [facility] Last Admin: 07/30/17 22:08 Dose: 1 ml Levothyroxine Sodium (Synthroid) 50 mcg PO DAILY@0630 [facility] Last Admin: 07/31/17 06:08 Dose: 50 mcg Metoprolol Succinate (Toprol Xl) 25 mg PO DAILY [facility] Last Admin: 07/31/17 12:57 Dose: 25 mg Ondansetron HCl (Zofran Inj) 4 mg IVP Q6 PRN PRN Reason: Nausea/Vomiting Last Admin: 07/29/17 13:43 Dose: 4 mg Pantoprazole Sodium (Protonix Ec Tab) 40 mg PO DAILY [facility] Last Admin: 07/31/17 12:57 Dose: 40 mg Polyethylene Glycol (Miralax) 17 gm PO DAILY [facility] Last Admin: 07/31/17 12:43 Dose: Not Given Rosuvastatin Calcium (Crestor) 10 mg PO HS [facility] Last Admin: 07/30/17 21:53 Dose: 10 mg Saccharomyces Boulardii (Florastor) 250 mg PO BID [facility] Last Admin: 07/31/17 12:42 Dose: Not Given - Labs Labs: 07/31/17 08:08 07/31/17 08:08 PT 14.3 SECONDS (9.7-12.2) H 07/16/17 04:00 INR 1.3 07/16/17 04:00 APTT 29 SECONDS (21-34) 07/13/17 20:04 - Constitutional Appears: Non-toxic - Head Exam Head Exam: NORMOCEPHALIC - Eye Exam Eye Exam: PERRL - ENT Exam ENT Exam: Mucous Membranes Dry - Neck Exam Neck Exam: absent: Lymphadenopathy - Respiratory Exam Respiratory Exam: Decreased Breath Sounds - Cardiovascular Exam Cardiovascular Exam: REGULAR RHYTHM - GI/Abdominal Exam GI & Abdominal Exam: Distended, Soft - Rectal Exam Rectal Exam: Deferred - Exam Exam: NORMAL INSPECTION - Extremities Exam Extremities Exam: absent: Pedal Edema - Back Exam Back Exam: absent: CVA tenderness (L), CVA tenderness (R) - Neurological Exam Neurological Exam: Alert, Altered, Awake Assessment and Plan (1) JAY JAY (acute kidney injury) Status: Acute (2) CVA, old, cognitive deficits Status: Acute (3) Chronic kidney disease, stage III (moderate) Status: Acute (4) Headache Status: Acute (5) Hx of gastroesophageal reflux (GERD) Status: Acute
--- NOTE | 2017-07-31 16:15 | CP.PCM.PN ---
Subjective - Date & Time of Evaluation Date of Evaluation: 07/31/17 Time of Evaluation: 06:45 - Subjective Subjective: Vascular Surgery Note for Dr. Villanueva Patient seen and examined at bedside. No acute event overnight. Patient complaining of epigastric pain, same chronic pain. Patient is tolerating his diet and having BM. Patient will be NPO past midnight on Thursday for AVF. No other complaints at this time. Objective - Vital Signs/Intake and Output Vital Signs (last 24 hours): Temp Pulse Resp BP Pulse Ox 98.1 F 77 20 97/60 L 97 07/31/17 15:44 07/31/17 15:44 07/31/17 15:44 07/31/17 15:44 07/31/17 15:44 Intake and Output: 07/31/17 07/31/17 06:59 18:59 Intake Total 740 Output Total 200 200 Balance -200 540 - Medications Medications: Current Medications Albuterol Sulfate (Albuterol 0.042% Inhal Ruby (1.25mg/3ml) Ud) 1.25 mg INH RQ6 PRN PRN Reason: Wheezing Last Admin: 07/28/17 07:05 Dose: 1.25 mg Ascorbic Acid (Vitamin C 250 Mg Tab) 250 mg PO DAILY [facility] Last Admin: 07/31/17 12:57 Dose: 250 mg Aspirin (Aspirin Chewable) 81 mg PO DAILY [facility] Last Admin: 07/31/17 12:58 Dose: 81 mg Benzocaine/Menthol (Cepacol Sore Throat) 1 love MT Q2 PRN PRN Reason: Sore Throat Last Admin: 07/31/17 05:21 Dose: 1 love Calcium Acetate (Phoslo) 1,334 mg PO TID [facility] Last Admin: 07/31/17 12:59 Dose: 1,334 mg Clopidogrel Bisulfate (Plavix) 75 mg PO DAILY [facility] Last Admin: 07/31/17 12:57 Dose: 75 mg Cyproheptadine HCl (Periactin) 4 mg PO BID [facility] Last Admin: 07/31/17 12:43 Dose: Not Given Donepezil HCl (Aricept) 10 mg PO HS [facility] Last Admin: 07/30/17 21:53 Dose: 10 mg Epoetin Romel (Procrit) 10,000 unit IV MWF [facility] Last Admin: 07/31/17 11:04 Dose: 10,000 unit Ferrous Sulfate (Feosol) 325 mg PO Q12H [facility] Last Admin: 07/31/17 06:59 Dose: 325 mg Heparin Sodium (Porcine) (Heparin) 5,000 units SC Q12 [facility] Last Admin: 07/31/17 12:42 Dose: Not Given Home Med (Fesoterodine Fumarate [Toviaz]) 8 mg PO DAILY [facility] Hydromorphone HCl (Dilaudid) 0.5 mg IVP Q4 PRN PRN Reason: Pain, severe (8-10) Last Admin: 07/30/17 21:53 Dose: 0.5 mg Metronidazole 250 mg/ (Miscellaneous) 50 mls @ 100 mls/hr IVPB Q8 [facility] Last Admin: 07/31/17 14:07 Dose: 100 mls/hr Tigecycline 50 mg/ Sodium (Chloride) 50 mls @ 100 mls/hr IVPB Q12H [facility] Insulin Human Regular (Novolin R) 0 unit SC ACHS [facility] PRN Reason: Protocol Last Admin: 07/31/17 12:43 Dose: Not Given Latanoprost (Xalatan Opht) 0 ml OU HS [facility] Last Admin: 07/30/17 22:08 Dose: 1 ml Levothyroxine Sodium (Synthroid) 50 mcg PO DAILY@0630 [facility] Last Admin: 07/31/17 06:08 Dose: 50 mcg Metoprolol Succinate (Toprol Xl) 25 mg PO DAILY [facility] Last Admin: 07/31/17 12:57 Dose: 25 mg Ondansetron HCl (Zofran Inj) 4 mg IVP Q6 PRN PRN Reason: Nausea/Vomiting Last Admin: 07/29/17 13:43 Dose: 4 mg Pantoprazole Sodium (Protonix Ec Tab) 40 mg PO DAILY [facility] Last Admin: 07/31/17 12:57 Dose: 40 mg Polyethylene Glycol (Miralax) 17 gm PO DAILY [facility] Last Admin: 07/31/17 12:43 Dose: Not Given Rosuvastatin Calcium (Crestor) 10 mg PO HS [facility] Last Admin: 07/30/17 21:53 Dose: 10 mg Saccharomyces Boulardii (Florastor) 250 mg PO BID [facility] Last Admin: 07/31/17 12:42 Dose: Not Given - Labs Labs: 07/31/17 08:08 07/31/17 08:08 PT 14.3 SECONDS (9.7-12.2) H 07/16/17 04:00 INR 1.3 07/16/17 04:00 APTT 29 SECONDS (21-34) 07/13/17 20:04 - Constitutional Appears: No Acute Distress - Head Exam Head Exam: ATRAUMATIC, NORMOCEPHALIC - Eye Exam Eye Exam: Normal appearance - ENT Exam ENT Exam: Mucous Membranes Moist - Neck Exam Additional comments: s/p Left ij permacath - Respiratory Exam Respiratory Exam: NORMAL BREATHING PATTERN - Cardiovascular Exam Cardiovascular Exam: REGULAR RHYTHM - GI/Abdominal Exam GI & Abdominal Exam: Soft. absent: Distended, Firm, Guarding, Rigid, Tenderness , Rebound - Neurological Exam Neurological Exam: Alert, Awake - Psychiatric Exam Psychiatric exam: Normal Affect, Normal Mood - Skin Skin Exam: Dry, Intact, Normal Color, Warm Assessment and Plan - Assessment and Plan (Free Text) Plan: 82M with Renal failure requiring dialysis -Plan for AVF in [place] Thursday -NPO past midnight Thursday evening -Arm precautions -Management as per primary -Discussed with Dr. Kay Ordoñez PGY1
[2017-07-31] MEDS: HYDROmorphone 0.5 mg/0.5 ml ISec IVP PRN (17:56)
[2017-07-31] MEDS: Latanoprost 2.5 ml Opht Soln OU SCH (22:29)
[2017-08-01] MEDS: metroNIDAZOLE IV 500 mg/100 ml 250 MG in Premixed IV 1 EA IVPB SCH ×3 (05:33→21:32)
--- NOTE | 2017-08-01 05:43 | CP.PCM.PN ---
<Jerson Putnam - Last Filed: 08/01/17 05:41> Subjective - Date & Time of Evaluation Date of Evaluation: 08/01/17 Time of Evaluation: 05:41 - Subjective Subjective: Patient seen and examined at bedside. Doing well Still complaining of mild chest and abdominal pain No other complaints at this time Understand AVF Objective - Vital Signs/Intake and Output Vital Signs (last 24 hours): Temp Pulse Resp BP Pulse Ox 97.9 F 76 20 115/70 97 07/31/17 23:20 08/01/17 04:32 07/31/17 23:20 07/31/17 23:20 07/31/17 23:20 Intake and Output: 07/31/17 08/01/17 18:59 06:59 Intake Total 740 350 Output Total 200 75 Balance 540 275 - Medications Medications: Current Medications Albuterol Sulfate (Albuterol 0.042% Inhal Ruby (1.25mg/3ml) Ud) 1.25 mg INH RQ6 PRN PRN Reason: Wheezing Last Admin: 07/28/17 07:05 Dose: 1.25 mg Ascorbic Acid (Vitamin C 250 Mg Tab) 250 mg PO DAILY [facility] Last Admin: 07/31/17 12:57 Dose: 250 mg Aspirin (Aspirin Chewable) 81 mg PO DAILY [facility] Last Admin: 07/31/17 12:58 Dose: 81 mg Benzocaine/Menthol (Cepacol Sore Throat) 1 love MT Q2 PRN PRN Reason: Sore Throat Last Admin: 07/31/17 05:21 Dose: 1 love Calcium Acetate (Phoslo) 1,334 mg PO TID [facility] Last Admin: 07/31/17 17:26 Dose: 1,334 mg Clopidogrel Bisulfate (Plavix) 75 mg PO DAILY [facility] Last Admin: 07/31/17 12:57 Dose: 75 mg Cyproheptadine HCl (Periactin) 4 mg PO BID [facility] Last Admin: 07/31/17 17:26 Dose: 4 mg Donepezil HCl (Aricept) 10 mg PO HS [facility] Last Admin: 07/31/17 22:31 Dose: 10 mg Epoetin Romel (Procrit) 10,000 unit IV MWF [facility] Last Admin: 07/31/17 11:04 Dose: 10,000 unit Ferrous Sulfate (Feosol) 325 mg PO Q12H [facility] Last Admin: 07/31/17 17:55 Dose: 325 mg Heparin Sodium (Porcine) (Heparin) 5,000 units SC Q12 [facility] Last Admin: 07/31/17 22:31 Dose: 5,000 units Home Med (Fesoterodine Fumarate [Toviaz]) 8 mg PO DAILY [facility] Hydromorphone HCl (Dilaudid) 0.5 mg IVP Q4 PRN PRN Reason: Pain, severe (8-10) Last Admin: 07/31/17 17:56 Dose: 0.5 mg Metronidazole 250 mg/ (Miscellaneous) 50 mls @ 100 mls/hr IVPB Q8 [facility] Last Admin: 08/01/17 05:33 Dose: 100 mls/hr Tigecycline 50 mg/ Sodium (Chloride) 50 mls @ 100 mls/hr IVPB Q12H [facility] Insulin Human Regular (Novolin R) 0 unit SC ACHS [facility] PRN Reason: Protocol Last Admin: 07/31/17 22:42 Dose: Not Given Latanoprost (Xalatan Opht) 0 ml OU HS [facility] Last Admin: 07/31/17 22:29 Dose: 2.5 ml Levothyroxine Sodium (Synthroid) 50 mcg PO DAILY@0630 [facility] Last Admin: 07/31/17 06:08 Dose: 50 mcg Metoprolol Succinate (Toprol Xl) 25 mg PO DAILY [facility] Last Admin: 07/31/17 12:57 Dose: 25 mg Ondansetron HCl (Zofran Inj) 4 mg IVP Q6 PRN PRN Reason: Nausea/Vomiting Last Admin: 07/29/17 13:43 Dose: 4 mg Pantoprazole Sodium (Protonix Ec Tab) 40 mg PO DAILY [facility] Last Admin: 07/31/17 12:57 Dose: 40 mg Polyethylene Glycol (Miralax) 17 gm PO DAILY [facility] Last Admin: 07/31/17 12:43 Dose: Not Given Rosuvastatin Calcium (Crestor) 10 mg PO HS [facility] Last Admin: 07/31/17 22:31 Dose: 10 mg Saccharomyces Boulardii (Florastor) 250 mg PO BID [facility] Last Admin: 07/31/17 17:26 Dose: 250 mg - Labs Labs: 07/31/17 08:08 07/31/17 08:08 PT 14.3 SECONDS (9.7-12.2) H 07/16/17 04:00 INR 1.3 07/16/17 04:00 APTT 29 SECONDS (21-34) 07/13/17 20:04 - Additional Findings Additional findings: - Constitutional Appears: Well, Non-toxic, No Acute Distress - Head Exam Head Exam: ATRAUMATIC - Respiratory Exam Respiratory Exam: absent: Rales, Rhonchi, Wheezes Additional comments: coarse bs - Cardiovascular Exam Cardiovascular Exam: Irregular Rhythm, +S1, +S2. absent: REGULAR RHYTHM - GI/Abdominal Exam GI & Abdominal Exam: Soft, Normal Bowel Sounds. absent: Tenderness, Organomegaly, Rebound - Neurological Exam Neurological Exam: Alert, Awake. absent: Oriented x3 Neuro motor strength exam: Left Upper Extremity: 5, Right Upper Extremity: 5, Left Lower Extremity: 3, Right Lower Extremity: 3 Assessment and Plan - Assessment and Plan (Free Text) Assessment: PEA on 07/20/17 * s/p permacath * ROSC returned Chest pain atypical * Cardio (Isac) * ECHO 07/13/17: LV EF is WNL * elevated troponin due to sepsis and afib ERCP Guidewire Perforation of Liver Capsule / Peripheral Bile Duct * GI Signed off * No surgical intervention * Most recent CT does not show fluid collection Enterococcus faecium Bacteremia * ID (Primitivo) * Flagyl/Tigecycline * Repeat cultures negative Atrial Fibrillation * Cards ([facility]ac) * Toprol XL 25 PO daily * Repeat EKG (NSR) 07/21/17 Bilateral Pneumonia * CXR 07/29/17 - mild airspace disease still present, R sided has resolved CKD Stage III * Nephro (Anish) * Dialysis MWF * Vascular ([place]) * Vein mapping * AVF possible thursday Hx CVA * Plavix 75 PO QD AD * Aricept 10 mg PO daily. Anemia * Ferrous Sulfate 325 mg PO daily. HLD * Lopid 600 mg PO BID * Crestor 10 mg PO HS HTN * Metoprolol XL 25 PO QD * Losartan 100 PO QD Diabetes * ISS Q6H * Accuchecks Q6H Hypothyroidism * Levothyroxine 50 PO QD Overactive bladder * Festerodine 8 PO QD Hx of glaucoma * Xalatan ggt Prophylactic measure * Protonix 40 IV QD Jerson Nesbittibe PGY-1 <Kyle Barrera - Last Filed: 08/01/17 14:37> Objective - Vital Signs/Intake and Output Vital Signs (last 24 hours): Temp Pulse Resp BP Pulse Ox 98.1 F 77 18 129/64 98 08/01/17 07:30 08/01/17 07:30 08/01/17 07:30 08/01/17 07:30 08/01/17 07:30 Intake and Output: 08/01/17 08/01/17 06:59 18:59 Intake Total 570 Output Total 125 450 Balance 445 -450 - Medications Medications: Current Medications Albuterol Sulfate (Albuterol 0.042% Inhal Ruby (1.25mg/3ml) Ud) 1.25 mg INH RQ6 PRN PRN Reason: Wheezing Last Admin: 08/01/17 14:02 Dose: 1.25 mg Ascorbic Acid (Vitamin C 250 Mg Tab) 250 mg PO DAILY [facility] Last Admin: 08/01/17 10:20 Dose: 250 mg Aspirin (Aspirin Chewable) 81 mg PO DAILY [facility] Last Admin: 08/01/17 10:18 Dose: 81 mg Benzocaine/Menthol (Cepacol Sore Throat) 1 love MT Q2 PRN PRN Reason: Sore Throat Last Admin: 07/31/17 05:21 Dose: 1 love Calcium Acetate (Phoslo) 1,334 mg PO TID [facility] Last Admin: 08/01/17 13:29 Dose: Not Given Clopidogrel Bisulfate (Plavix) 75 mg PO DAILY [facility] Last Admin: 08/01/17 10:19 Dose: 75 mg Cyproheptadine HCl (Periactin) 4 mg PO BID [facility] Last Admin: 08/01/17 10:19 Dose: 4 mg Donepezil HCl (Aricept) 10 mg PO HS [facility] Last Admin: 07/31/17 22:31 Dose: 10 mg Epoetin Romel (Procrit) 10,000 unit IV MWF [facility] Last Admin: 07/31/17 11:04 Dose: 10,000 unit Ferrous Sulfate (Feosol) 325 mg PO Q12H [facility] Last Admin: 08/01/17 05:48 Dose: 325 mg Heparin Sodium (Porcine) (Heparin) 5,000 units SC Q8 [facility] Last Admin: 08/01/17 13:59 Dose: 5,000 units Home Med (Fesoterodine Fumarate [Toviaz]) 8 mg PO DAILY [facility] Hydromorphone HCl (Dilaudid) 0.5 mg IVP Q4 PRN PRN Reason: Pain, severe (8-10) Last Admin: 07/31/17 17:56 Dose: 0.5 mg Metronidazole 250 mg/ (Miscellaneous) 50 mls @ 100 mls/hr IVPB Q8 [facility] Last Admin: 08/01/17 13:28 Dose: 100 mls/hr Tigecycline 50 mg/ Sodium (Chloride) 50 mls @ 100 mls/hr IVPB Q12H [facility] Last Admin: 08/01/17 06:16 Dose: 100 mls/hr Insulin Human Regular (Novolin R) 0 unit SC ACHS [facility] PRN Reason: Protocol Last Admin: 08/01/17 12:16 Dose: 3 unit Latanoprost (Xalatan Opht) 0 ml OU HS [facility] Last Admin: 07/31/17 22:29 Dose: 2.5 ml Levothyroxine Sodium (Synthroid) 50 mcg PO DAILY@0630 [facility] Last Admin: 08/01/17 05:48 Dose: 50 mcg Metoprolol Succinate (Toprol Xl) 25 mg PO DAILY [facility] Last Admin: 08/01/17 10:20 Dose: 25 mg Ondansetron HCl (Zofran Inj) 4 mg IVP Q6 PRN PRN Reason: Nausea/Vomiting Last Admin: 07/29/17 13:43 Dose: 4 mg Pantoprazole Sodium (Protonix Ec Tab) 40 mg PO DAILY [facility] Last Admin: 08/01/17 10:19 Dose: 40 mg Polyethylene Glycol (Miralax) 17 gm PO DAILY [facility] Last Admin: 08/01/17 10:19 Dose: Not Given Rosuvastatin Calcium (Crestor) 10 mg PO HS [facility] Last Admin: 07/31/17 22:31 Dose: 10 mg Saccharomyces Boulardii (Florastor) 250 mg PO BID [facility] Last Admin: 08/01/17 10:18 Dose: 250 mg - Labs Labs: 07/31/17 08:08 07/31/17 08:08 PT 14.3 SECONDS (9.7-12.2) H 07/16/17 04:00 INR 1.3 07/16/17 04:00 APTT 29 SECONDS (21-34) 07/13/17 20:04 Attending/Attestation - Attestation I have personally seen and examined this patient.: Yes I have fully participated in the care of the patient.: Yes I have reviewed all pertinent clinical information, including history, physical exam and plan: Yes Notes (Text): Patient was seen and examined,no complain Going for surgery AVF on Thursday.Dialysis today 1.Acute on chronic renal failure ON HD TIW Going for AVF HD today 2.Enterococcus bacteremia 3.s/p cardiac arrest 07/20 Extubated,s/p chest pain,seen by cardio subacute rehab 4.Cholangitis s/p ERCP perforation of liver GI has signed off as of 07/28/17; No further planned GI intervention. Repeat CT Abdomen 07/25: fluid collection resolved * General surgery has signed off 07/27/17. No further planned intervention from Surgery * 07/30: recommended for 3 weeks of IV antibiotic as minimum and follow CT for resolution 5.afib and troponin likely sepsis induced toprol and asprin 6.Pnemonia 7.s/p CVA 8.HTn 9.anemia 10.DM 11.overactive bladder 12glaucoma 13.GERD 14.continue current meds Disposition: * GI and General surgery have signed off. * Per ID, recc min 3 weeks IV rx and follow up imaging to r/o residual collection * Vascular surgery eval in progress given nephrology recommendation for AV flstula placement prior to discharge * Patient is first time dialysis; will need dialysis placement prior to discharge * Awaiting subacute rehab eval; note pending AV fistula placement and dialysis placement to be secured
[2017-08-01] MEDS: Levothyroxine 50 MCG TAB PO SCH (05:48)
[2017-08-01] MEDS: (Novolin R) Insulin Human Regular 100 units/ml vial SC SCH ×4 (08:04→23:29)
--- NOTE | 2017-08-01 09:42 | CP.PCM.PN ---
Subjective - Date & Time of Evaluation Date of Evaluation: 08/01/17 Time of Evaluation: 09:37 - Subjective Subjective: Notes reviewed Patient remains in bed, offers no complaints No distress Received hd 07/31 without difficulty No overnight events ROS: No cp or palp, no sob + cough, no n/v/d Objective - Vital Signs/Intake and Output Vital Signs (last 24 hours): Temp Pulse Resp BP Pulse Ox 98.1 F 77 18 129/64 98 08/01/17 07:30 08/01/17 07:30 08/01/17 07:30 08/01/17 07:30 08/01/17 07:30 Intake and Output: 08/01/17 08/01/17 06:59 18:59 Intake Total 570 Output Total 125 Balance 445 - Medications Medications: Current Medications Albuterol Sulfate (Albuterol 0.042% Inhal Ruby (1.25mg/3ml) Ud) 1.25 mg INH RQ6 PRN PRN Reason: Wheezing Last Admin: 07/28/17 07:05 Dose: 1.25 mg Ascorbic Acid (Vitamin C 250 Mg Tab) 250 mg PO DAILY [facility] Last Admin: 07/31/17 12:57 Dose: 250 mg Aspirin (Aspirin Chewable) 81 mg PO DAILY [facility] Last Admin: 07/31/17 12:58 Dose: 81 mg Benzocaine/Menthol (Cepacol Sore Throat) 1 love MT Q2 PRN PRN Reason: Sore Throat Last Admin: 07/31/17 05:21 Dose: 1 love Calcium Acetate (Phoslo) 1,334 mg PO TID [facility] Last Admin: 07/31/17 17:26 Dose: 1,334 mg Clopidogrel Bisulfate (Plavix) 75 mg PO DAILY [facility] Last Admin: 07/31/17 12:57 Dose: 75 mg Cyproheptadine HCl (Periactin) 4 mg PO BID [facility] Last Admin: 07/31/17 17:26 Dose: 4 mg Donepezil HCl (Aricept) 10 mg PO HS [facility] Last Admin: 07/31/17 22:31 Dose: 10 mg Epoetin Romel (Procrit) 10,000 unit IV MWF [facility] Last Admin: 07/31/17 11:04 Dose: 10,000 unit Ferrous Sulfate (Feosol) 325 mg PO Q12H [facility] Last Admin: 08/01/17 05:48 Dose: 325 mg Heparin Sodium (Porcine) (Heparin) 5,000 units SC Q12 [facility] Last Admin: 07/31/17 22:31 Dose: 5,000 units Home Med (Fesoterodine Fumarate [Toviaz]) 8 mg PO DAILY [facility] Hydromorphone HCl (Dilaudid) 0.5 mg IVP Q4 PRN PRN Reason: Pain, severe (8-10) Last Admin: 07/31/17 17:56 Dose: 0.5 mg Metronidazole 250 mg/ (Miscellaneous) 50 mls @ 100 mls/hr IVPB Q8 [facility] Last Admin: 08/01/17 05:33 Dose: 100 mls/hr Tigecycline 50 mg/ Sodium (Chloride) 50 mls @ 100 mls/hr IVPB Q12H [facility] Last Admin: 08/01/17 06:16 Dose: 100 mls/hr Insulin Human Regular (Novolin R) 0 unit SC ACHS [facility] PRN Reason: Protocol Last Admin: 08/01/17 08:04 Dose: Not Given Latanoprost (Xalatan Opht) 0 ml OU HS [facility] Last Admin: 07/31/17 22:29 Dose: 2.5 ml Levothyroxine Sodium (Synthroid) 50 mcg PO DAILY@0630 [facility] Last Admin: 08/01/17 05:48 Dose: 50 mcg Metoprolol Succinate (Toprol Xl) 25 mg PO DAILY [facility] Last Admin: 07/31/17 12:57 Dose: 25 mg Ondansetron HCl (Zofran Inj) 4 mg IVP Q6 PRN PRN Reason: Nausea/Vomiting Last Admin: 07/29/17 13:43 Dose: 4 mg Pantoprazole Sodium (Protonix Ec Tab) 40 mg PO DAILY [facility] Last Admin: 07/31/17 12:57 Dose: 40 mg Polyethylene Glycol (Miralax) 17 gm PO DAILY [facility] Last Admin: 07/31/17 12:43 Dose: Not Given Rosuvastatin Calcium (Crestor) 10 mg PO HS [facility] Last Admin: 07/31/17 22:31 Dose: 10 mg Saccharomyces Boulardii (Florastor) 250 mg PO BID [facility] Last Admin: 07/31/17 17:26 Dose: 250 mg - Labs Labs: 07/31/17 08:08 07/31/17 08:08 PT 14.3 SECONDS (9.7-12.2) H 07/16/17 04:00 INR 1.3 07/16/17 04:00 APTT 29 SECONDS (21-34) 07/13/17 20:04 - Constitutional Appears: Non-toxic, Chronically Ill - Head Exam Head Exam: ATRAUMATIC, NORMOCEPHALIC - Eye Exam Eye Exam: EOMI. absent: Scleral icterus - ENT Exam ENT Exam: Mucous Membranes Moist, Normal Oropharynx - Respiratory Exam Respiratory Exam: Rhonchi, NORMAL BREATHING PATTERN. absent: Rales - Cardiovascular Exam Cardiovascular Exam: +S1, +S2. absent: JVD - GI/Abdominal Exam GI & Abdominal Exam: Soft, Normal Bowel Sounds - Extremities Exam Extremities Exam: absent: Pedal Edema, Tenderness - Neurological Exam Neurological Exam: Alert, Awake Assessment and Plan (1) JAY JAY (acute kidney injury) Status: Acute (2) CVA, old, cognitive deficits Status: Acute (3) ESRD (end stage renal disease) Status: Acute (4) Type 2 diabetes mellitus with diabetic nephropathy Status: Acute (5) Anemia Status: Acute (6) HTN (hypertension) Status: Acute - Assessment and Plan (Free Text) Assessment: Maintain dialysis schedule, nexttreatment 08/03 AVF creation when possible Continue current care
[2017-08-01] MEDS: Saccharomyces Boulardi 250 mg Cap PO SCH ×2 (10:18→18:00)
[2017-08-01] MEDS: POLYETHYLENE GLYCOL 3350 17 GM/Dose PACKET PO SCH (10:19)
[2017-08-01] MEDS: Pantoprazole 40 mg EC Tab PO SCH (10:19)
[2017-08-01] MEDS: Metoprolol Succinate 25 mg XL Tab PO SCH (10:20)
--- NOTE | 2017-08-01 10:52 | CP.PCM.PN ---
Subjective - Date & Time of Evaluation Date of Evaluation: 08/01/17 Time of Evaluation: 10:51 - Subjective Subjective: vein mapping reviewed almost no options for permanent access based on US exam Objective - Vital Signs/Intake and Output Vital Signs (last 24 hours): Temp Pulse Resp BP Pulse Ox 98.1 F 77 18 129/64 98 08/01/17 07:30 08/01/17 07:30 08/01/17 07:30 08/01/17 07:30 08/01/17 07:30 Intake and Output: 08/01/17 08/01/17 06:59 18:59 Intake Total 570 Output Total 125 Balance 445 - Medications Medications: Current Medications Albuterol Sulfate (Albuterol 0.042% Inhal Ruby (1.25mg/3ml) Ud) 1.25 mg INH RQ6 PRN PRN Reason: Wheezing Last Admin: 07/28/17 07:05 Dose: 1.25 mg Ascorbic Acid (Vitamin C 250 Mg Tab) 250 mg PO DAILY [facility] Last Admin: 08/01/17 10:20 Dose: 250 mg Aspirin (Aspirin Chewable) 81 mg PO DAILY [facility] Last Admin: 08/01/17 10:18 Dose: 81 mg Benzocaine/Menthol (Cepacol Sore Throat) 1 love MT Q2 PRN PRN Reason: Sore Throat Last Admin: 07/31/17 05:21 Dose: 1 love Calcium Acetate (Phoslo) 1,334 mg PO TID [facility] Last Admin: 08/01/17 10:19 Dose: 1,334 mg Clopidogrel Bisulfate (Plavix) 75 mg PO DAILY [facility] Last Admin: 08/01/17 10:19 Dose: 75 mg Cyproheptadine HCl (Periactin) 4 mg PO BID [facility] Last Admin: 08/01/17 10:19 Dose: 4 mg Donepezil HCl (Aricept) 10 mg PO HS [facility] Last Admin: 07/31/17 22:31 Dose: 10 mg Epoetin Romel (Procrit) 10,000 unit IV MWF [facility] Last Admin: 07/31/17 11:04 Dose: 10,000 unit Ferrous Sulfate (Feosol) 325 mg PO Q12H [facility] Last Admin: 08/01/17 05:48 Dose: 325 mg Home Med (Fesoterodine Fumarate [Toviaz]) 8 mg PO DAILY [facility] Hydromorphone HCl (Dilaudid) 0.5 mg IVP Q4 PRN PRN Reason: Pain, severe (8-10) Last Admin: 07/31/17 17:56 Dose: 0.5 mg Metronidazole 250 mg/ (Miscellaneous) 50 mls @ 100 mls/hr IVPB Q8 [facility] Last Admin: 08/01/17 05:33 Dose: 100 mls/hr Tigecycline 50 mg/ Sodium (Chloride) 50 mls @ 100 mls/hr IVPB Q12H [facility] Last Admin: 08/01/17 06:16 Dose: 100 mls/hr Insulin Human Regular (Novolin R) 0 unit SC ACHS [facility] PRN Reason: Protocol Last Admin: 08/01/17 08:04 Dose: Not Given Latanoprost (Xalatan Opht) 0 ml OU HS [facility] Last Admin: 07/31/17 22:29 Dose: 2.5 ml Levothyroxine Sodium (Synthroid) 50 mcg PO DAILY@0630 [facility] Last Admin: 08/01/17 05:48 Dose: 50 mcg Metoprolol Succinate (Toprol Xl) 25 mg PO DAILY [facility] Last Admin: 08/01/17 10:20 Dose: 25 mg Ondansetron HCl (Zofran Inj) 4 mg IVP Q6 PRN PRN Reason: Nausea/Vomiting Last Admin: 07/29/17 13:43 Dose: 4 mg Pantoprazole Sodium (Protonix Ec Tab) 40 mg PO DAILY [facility] Last Admin: 08/01/17 10:19 Dose: 40 mg Polyethylene Glycol (Miralax) 17 gm PO DAILY [facility] Last Admin: 08/01/17 10:19 Dose: Not Given Rosuvastatin Calcium (Crestor) 10 mg PO HS [facility] Last Admin: 07/31/17 22:31 Dose: 10 mg Saccharomyces Boulardii (Florastor) 250 mg PO BID [facility] Last Admin: 08/01/17 10:18 Dose: 250 mg - Labs Labs: 07/31/17 08:08 07/31/17 08:08 PT 14.3 SECONDS (9.7-12.2) H 07/16/17 04:00 INR 1.3 07/16/17 04:00 APTT 29 SECONDS (21-34) 07/13/17 20:04
--- NOTE | 2017-08-01 12:02 | CP.PCM.PN ---
Subjective - Date & Time of Evaluation Date of Evaluation: 08/01/17 Time of Evaluation: 08:00 - Subjective Subjective: Vascular Surgery- Dr. Villanueva Patient seen and examined at bedside this AM. Plan for surgery tomorrow. Left arm restriction. HD yesterday. Denies fevers, chills, chest pain, shortness of breath, nausea, vomiting, diarrhea. Objective - Vital Signs/Intake and Output Vital Signs (last 24 hours): Temp Pulse Resp BP Pulse Ox 98.1 F 77 18 129/64 98 08/01/17 07:30 08/01/17 07:30 08/01/17 07:30 08/01/17 07:30 08/01/17 07:30 Intake and Output: 08/01/17 08/01/17 06:59 18:59 Intake Total 570 Output Total 125 Balance 445 - Medications Medications: Current Medications Albuterol Sulfate (Albuterol 0.042% Inhal Ruby (1.25mg/3ml) Ud) 1.25 mg INH RQ6 PRN PRN Reason: Wheezing Last Admin: 07/28/17 07:05 Dose: 1.25 mg Ascorbic Acid (Vitamin C 250 Mg Tab) 250 mg PO DAILY [facility] Last Admin: 08/01/17 10:20 Dose: 250 mg Aspirin (Aspirin Chewable) 81 mg PO DAILY [facility] Last Admin: 08/01/17 10:18 Dose: 81 mg Benzocaine/Menthol (Cepacol Sore Throat) 1 love MT Q2 PRN PRN Reason: Sore Throat Last Admin: 07/31/17 05:21 Dose: 1 love Calcium Acetate (Phoslo) 1,334 mg PO TID [facility] Last Admin: 08/01/17 10:19 Dose: 1,334 mg Clopidogrel Bisulfate (Plavix) 75 mg PO DAILY [facility] Last Admin: 08/01/17 10:19 Dose: 75 mg Cyproheptadine HCl (Periactin) 4 mg PO BID [facility] Last Admin: 08/01/17 10:19 Dose: 4 mg Donepezil HCl (Aricept) 10 mg PO HS [facility] Last Admin: 07/31/17 22:31 Dose: 10 mg Epoetin Romel (Procrit) 10,000 unit IV MWF [facility] Last Admin: 07/31/17 11:04 Dose: 10,000 unit Ferrous Sulfate (Feosol) 325 mg PO Q12H [facility] Last Admin: 08/01/17 05:48 Dose: 325 mg Home Med (Fesoterodine Fumarate [Toviaz]) 8 mg PO DAILY [facility] Hydromorphone HCl (Dilaudid) 0.5 mg IVP Q4 PRN PRN Reason: Pain, severe (8-10) Last Admin: 07/31/17 17:56 Dose: 0.5 mg Metronidazole 250 mg/ (Miscellaneous) 50 mls @ 100 mls/hr IVPB Q8 [facility] Last Admin: 08/01/17 05:33 Dose: 100 mls/hr Tigecycline 50 mg/ Sodium (Chloride) 50 mls @ 100 mls/hr IVPB Q12H [facility] Last Admin: 08/01/17 06:16 Dose: 100 mls/hr Insulin Human Regular (Novolin R) 0 unit SC ACHS [facility] PRN Reason: Protocol Last Admin: 08/01/17 08:04 Dose: Not Given Latanoprost (Xalatan Opht) 0 ml OU HS [facility] Last Admin: 07/31/17 22:29 Dose: 2.5 ml Levothyroxine Sodium (Synthroid) 50 mcg PO DAILY@0630 [facility] Last Admin: 08/01/17 05:48 Dose: 50 mcg Metoprolol Succinate (Toprol Xl) 25 mg PO DAILY [facility] Last Admin: 08/01/17 10:20 Dose: 25 mg Ondansetron HCl (Zofran Inj) 4 mg IVP Q6 PRN PRN Reason: Nausea/Vomiting Last Admin: 07/29/17 13:43 Dose: 4 mg Pantoprazole Sodium (Protonix Ec Tab) 40 mg PO DAILY [facility] Last Admin: 08/01/17 10:19 Dose: 40 mg Polyethylene Glycol (Miralax) 17 gm PO DAILY [facility] Last Admin: 08/01/17 10:19 Dose: Not Given Rosuvastatin Calcium (Crestor) 10 mg PO HS [facility] Last Admin: 07/31/17 22:31 Dose: 10 mg Saccharomyces Boulardii (Florastor) 250 mg PO BID [facility] Last Admin: 08/01/17 10:18 Dose: 250 mg - Labs Labs: 07/31/17 08:08 07/31/17 08:08 PT 14.3 SECONDS (9.7-12.2) H 07/16/17 04:00 INR 1.3 11/02/17 04:00 APTT 29 SECONDS (21-34) 07/13/17 20:04 - Constitutional Appears: Non-toxic, No Acute Distress - Eye Exam Eye Exam: EOMI. absent: Scleral icterus - Respiratory Exam Respiratory Exam: NORMAL BREATHING PATTERN. absent: Accessory Muscle Use, Respiratory Distress - Cardiovascular Exam Cardiovascular Exam: +S1, +S2. absent: Bradycardia, Tachycardia - Neurological Exam Neurological Exam: Alert, Awake, Oriented x3 - Skin Skin Exam: Intact, Warm Assessment and Plan - Assessment and Plan (Free Text) Assessment: 82M ESRD on Hemodialysis Plan: - plan for OR Thursday - NPO @ id Thursday - plan for dialysis this weekend prior to surgery - discussed w/ Dr. Kay Jewell PGY1
[2017-08-01] MEDS: Albuterol 0.042% Inhal Sol (1.25 mg/3 mL) UD INH PRN (14:02)
[2017-08-01] MEDS: Epoetin Alfa 10,000 unit/ml Dialysis IV SCH (16:44)
[2017-08-01] MEDS: Latanoprost 2.5 ml Opht Soln OU SCH (21:31)
--- NOTE | 2017-08-02 02:32 | CP.PCM.PN ---
<Jerson Putnam - Last Filed: 08/02/17 02:30> Subjective - Date & Time of Evaluation Date of Evaluation: 08/02/17 Time of Evaluation: 02:30 - Subjective Subjective: Patient seen and examined at bedside. Doing well Still complaining of mild chest and abdominal pain No other complaints at this time Understand AVF Objective - Vital Signs/Intake and Output Vital Signs (last 24 hours): Temp Pulse Resp BP Pulse Ox 98.9 F 85 20 132/79 97 08/01/17 23:10 08/01/17 23:10 08/01/17 23:10 08/01/17 23:10 08/01/17 23:10 Intake and Output: 08/01/17 08/02/17 18:59 06:59 Output Total 450 Balance -450 - Medications Medications: Current Medications Albuterol Sulfate (Albuterol 0.042% Inhal Ruby (1.25mg/3ml) Ud) 1.25 mg INH RQ6 PRN PRN Reason: Wheezing Last Admin: 08/01/17 14:02 Dose: 1.25 mg Ascorbic Acid (Vitamin C 250 Mg Tab) 250 mg PO DAILY [facility] Last Admin: 08/01/17 10:20 Dose: 250 mg Aspirin (Aspirin Chewable) 81 mg PO DAILY [facility] Last Admin: 08/01/17 10:18 Dose: 81 mg Benzocaine/Menthol (Cepacol Sore Throat) 1 love MT Q2 PRN PRN Reason: Sore Throat Last Admin: 07/31/17 05:21 Dose: 1 love Calcium Acetate (Phoslo) 1,334 mg PO TID [facility] Last Admin: 08/01/17 18:00 Dose: Not Given Clopidogrel Bisulfate (Plavix) 75 mg PO DAILY [facility] Last Admin: 08/01/17 10:19 Dose: 75 mg Cyproheptadine HCl (Periactin) 4 mg PO BID [facility] Last Admin: 08/01/17 18:00 Dose: Not Given Donepezil HCl (Aricept) 10 mg PO HS [facility] Last Admin: 08/01/17 21:31 Dose: 10 mg Epoetin Romel (Procrit) 10,000 unit IV MWF [facility] Last Admin: 08/01/17 16:44 Dose: 10,000 unit Ferrous Sulfate (Feosol) 325 mg PO Q12H [facility] Last Admin: 08/01/17 18:50 Dose: Not Given Heparin Sodium (Porcine) (Heparin) 5,000 units SC Q8 [facility] Last Admin: 08/01/17 21:31 Dose: 5,000 units Home Med (Fesoterodine Fumarate [Toviaz]) 8 mg PO DAILY [facility] Hydromorphone HCl (Dilaudid) 0.5 mg IVP Q4 PRN PRN Reason: Pain, severe (8-10) Last Admin: 07/31/17 17:56 Dose: 0.5 mg Metronidazole 250 mg/ (Miscellaneous) 50 mls @ 100 mls/hr IVPB Q8 [facility] Last Admin: 08/01/17 21:32 Dose: 100 mls/hr Tigecycline 50 mg/ Sodium (Chloride) 50 mls @ 100 mls/hr IVPB Q12H [facility] Last Admin: 08/01/17 20:00 Dose: 100 mls/hr Insulin Human Regular (Novolin R) 0 unit SC ACHS DARINEL PRN Reason: Protocol Last Admin: 08/01/17 23:29 Dose: Not Given Latanoprost (Xalatan Opht) 0 ml OU HS [facility] Last Admin: 08/01/17 21:31 Dose: 2.5 ml Levothyroxine Sodium (Synthroid) 50 mcg PO DAILY@0630 [facility] Last Admin: 08/01/17 05:48 Dose: 50 mcg Metoprolol Succinate (Toprol Xl) 25 mg PO DAILY [facility] Last Admin: 08/01/17 10:20 Dose: 25 mg Ondansetron HCl (Zofran Inj) 4 mg IVP Q6 PRN PRN Reason: Nausea/Vomiting Last Admin: 07/29/17 13:43 Dose: 4 mg Pantoprazole Sodium (Protonix Ec Tab) 40 mg PO DAILY [facility] Last Admin: 08/01/17 10:19 Dose: 40 mg Polyethylene Glycol (Miralax) 17 gm PO DAILY [facility] Last Admin: 08/01/17 10:19 Dose: Not Given Rosuvastatin Calcium (Crestor) 10 mg PO HS [facility] Last Admin: 08/01/17 21:30 Dose: 10 mg Saccharomyces Boulardii (Florastor) 250 mg PO BID [facility] Last Admin: 08/01/17 18:00 Dose: Not Given - Labs Labs: 07/31/17 08:08 07/31/17 08:08 PT 14.3 SECONDS (9.7-12.2) H 07/16/17 04:00 INR 1.3 07/16/17 04:00 APTT 29 SECONDS (21-34) 07/13/17 20:04 - Additional Findings Additional findings: - Additional Findings Additional findings: - Constitutional Appears: Well, Non-toxic, No Acute Distress - Head Exam Head Exam: ATRAUMATIC - Respiratory Exam Respiratory Exam: absent: Rales, Rhonchi, Wheezes Additional comments: coarse bs - Cardiovascular Exam Cardiovascular Exam: Irregular Rhythm, +S1, +S2. absent: REGULAR RHYTHM - GI/Abdominal Exam GI & Abdominal Exam: Soft, Normal Bowel Sounds. absent: Tenderness, Organomegaly, Rebound - Neurological Exam Neurological Exam: Alert, Awake. absent: Oriented x3 Neuro motor strength exam: Left Upper Extremity: 5, Right Upper Extremity: 5, Left Lower Extremity: 3, Right Lower Extremity: 3 Assessment and Plan - Assessment and Plan (Free Text) Assessment: PEA on 07/20/17 * s/p permacath * ROSC returned Chest pain atypical * Cardio (Isac) * ECHO 07/13/17: LV EF is WNL * elevated troponin due to sepsis and afib ERCP Guidewire Perforation of Liver Capsule / Peripheral Bile Duct * GI Signed off * No surgical intervention * Most recent CT does not show fluid collection Enterococcus faecium Bacteremia * ID (Primitivo) * Flagyl/Tigecycline * Repeat cultures negative Atrial Fibrillation * Cards ([facility]) * Toprol XL 25 PO daily * Repeat EKG (NSR) 07/21/17 Bilateral Pneumonia * CXR 07/29/17 - mild airspace disease still present, R sided has resolved CKD Stage III * Nephro (Anish) * Dialysis MWF * Vascular ([place]) * Vein mapping * AVF Thursday Hx CVA * Plavix 75 PO QD AD * Aricept 10 mg PO daily. Anemia * Ferrous Sulfate 325 mg PO daily. HLD * Lopid 600 mg PO BID * Crestor 10 mg PO HS HTN * Metoprolol XL 25 PO QD * Losartan 100 PO QD Diabetes * ISS Q6H * Accuchecks Q6H Hypothyroidism * Levothyroxine 50 PO QD Overactive bladder * Festerodine 8 PO QD Hx of glaucoma * Xalatan ggt Prophylactic measure * Protonix 40 IV QD Dispo: NPO after midnight today. Jerson Putnam PGY-1 <Gladys Menchaca V - Last Filed: 08/02/17 16:27> Objective - Vital Signs/Intake and Output Vital Signs (last 24 hours): Temp Pulse Resp BP Pulse Ox 98.4 F 85 20 135/83 100 08/02/17 07:00 08/02/17 07:00 08/02/17 07:00 08/02/17 07:00 08/02/17 07:00 Intake and Output: 08/02/17 08/02/17 06:59 18:59 Intake Total 220 Output Total 125 150 Balance 95 -150 - Medications Medications: Current Medications Albuterol Sulfate (Albuterol 0.042% Inhal Ruby (1.25mg/3ml) Ud) 1.25 mg INH RQ6 PRN PRN Reason: Wheezing Last Admin: 08/01/17 14:02 Dose: 1.25 mg Ascorbic Acid (Vitamin C 250 Mg Tab) 250 mg PO DAILY [facility] Last Admin: 08/02/17 09:53 Dose: 250 mg Aspirin (Aspirin Chewable) 81 mg PO DAILY [facility] Last Admin: 08/02/17 09:52 Dose: 81 mg Benzocaine/Menthol (Cepacol Sore Throat) 1 love MT Q2 PRN PRN Reason: Sore Throat Last Admin: 07/31/17 05:21 Dose: 1 love Calcium Acetate (Phoslo) 1,334 mg PO TID [facility] Last Admin: 08/02/17 09:53 Dose: Not Given Clopidogrel Bisulfate (Plavix) 75 mg PO DAILY [facility] Last Admin: 08/02/17 09:53 Dose: 75 mg Cyproheptadine HCl (Periactin) 4 mg PO BID [facility] Last Admin: 08/02/17 09:53 Dose: 4 mg Donepezil HCl (Aricept) 10 mg PO HS [facility] Last Admin: 08/01/17 21:31 Dose: 10 mg Epoetin Romel (Procrit) 10,000 unit IV MWF [facility] Last Admin: 08/01/17 16:44 Dose: 10,000 unit Ferrous Sulfate (Feosol) 325 mg PO Q12H [facility] Last Admin: 08/02/17 05:50 Dose: 325 mg Heparin Sodium (Porcine) (Heparin) 5,000 units SC Q8 [facility] Last Admin: 08/02/17 13:57 Dose: 5,000 units Home Med (Fesoterodine Fumarate [Toviaz]) 8 mg PO DAILY [facility] Hydromorphone HCl (Dilaudid) 0.5 mg IVP Q4 PRN PRN Reason: Pain, severe (8-10) Last Admin: 07/31/17 17:56 Dose: 0.5 mg Metronidazole 250 mg/ (Miscellaneous) 50 mls @ 100 mls/hr IVPB Q8 [facility] Last Admin: 08/02/17 13:57 Dose: 100 mls/hr Tigecycline 50 mg/ Sodium (Chloride) 50 mls @ 100 mls/hr IVPB Q12H [facility] Last Admin: 08/02/17 06:04 Dose: 100 mls/hr Insulin Human Regular (Novolin R) 0 unit SC ACHS [facility] PRN Reason: Protocol Last Admin: 08/02/17 12:10 Dose: 3 unit Latanoprost (Xalatan Opht) 0 ml OU HS [facility] Last Admin: 08/01/17 21:31 Dose: 2.5 ml Levothyroxine Sodium (Synthroid) 50 mcg PO DAILY@0630 [facility] Last Admin: 08/02/17 05:49 Dose: 50 mcg Metoprolol Succinate (Toprol Xl) 25 mg PO DAILY [facility] Last Admin: 08/02/17 09:53 Dose: 25 mg Ondansetron HCl (Zofran Inj) 4 mg IVP Q6 PRN PRN Reason: Nausea/Vomiting Last Admin: 07/29/17 13:43 Dose: 4 mg Pantoprazole Sodium (Protonix Ec Tab) 40 mg PO DAILY [facility] Last Admin: 08/02/17 09:53 Dose: 40 mg Polyethylene Glycol (Miralax) 17 gm PO DAILY [facility] Last Admin: 08/02/17 09:53 Dose: 17 gm Rosuvastatin Calcium (Crestor) 10 mg PO HS [facility] Last Admin: 08/01/17 21:30 Dose: 10 mg Saccharomyces Boulardii (Florastor) 250 mg PO BID [facility] Last Admin: 08/02/17 09:52 Dose: Not Given - Labs Labs: 08/02/17 08:44 08/02/17 08:44 PT 16.1 SECONDS (9.7-12.2) H 08/02/17 08:44 INR 1.4 08/02/17 08:44 APTT 32 SECONDS (21-34) 08/02/17 08:44 Attending/Attestation - Attestation I have personally seen and examined this patient.: Yes I have fully participated in the care of the patient.: Yes I have reviewed all pertinent clinical information, including history, physical exam and plan: Yes Notes (Text): Patient seen, examined and case discussed with day-time resident. Patient seen at bedside. Patient sleeping at bedside. He is arousbale and awake and alert. No family present at bedside. Updated Assessment/Plan below. I spoke with Lyndsey Youssef (patient's niece) kept update to in regards to her uncle's condition from the past week. Per discussion with the niece, patient's also suffers from dementia as well. She used to live with her aunt and uncle and keeps the family updated. Lyndsey Posadasgo ([phone])-->patient's niece reports she hasn't received a call yet from surgery in regards to AV fistula surgery. Aspirin and Plavix held. Patient's white count increased, Patient was recultured blood, urine, and awaiting procalcitonin. Platelets became low. unclear if related to rise in white count or not. Stopped heparin dvt. Ordered for HIT antibodies, Serotonin release Assay, and platelet function test. Placed consult to heme-onc. Assessment/Plan (1) Cardiac Arrest PEA on 07/20/17 Assessment and Plan: * Status post-procedure; patient went into PEA on 07/20 ROSC returned; intubated 07/20/17-[id number] * Chest xray (07/22/17): moderate left pleural effusion with consolidative opacification in the left mid to lower lung zone. trace right pleural effusion with adjacent right basilar consolidation. cardiomeglay. calcification at the aortic knob * 07/29; patient is awake, alert, eating food at bedside; PT note recommending patient to subacute rehab * 07/30: same as above; discussed with case management to setup patient for subacute rehab and dialysis placement post hospitalization Status: Acute (2) Chest pain Assessment and Plan: * Patient with atypical chest pain history * Cardio Dr. Chau does not feel that this is cardiac related * PEA on 07/21 * Per cardio note: patient does not appear to have CHF, will trend troponin * Discussed with cardio; no amiodarone needed * TSH, Free T4 are normal * ECHO 07/13/17: LV EF is WNL, moderate concentric LVH, Grade I abnormal relaxation pattern Status: Acute (3) Cholangitis--Resolved ERCP Guidewire Perforation of Liver Capsule vs Peripheral Bile Duct Assessment and Plan: * GI (Dr. Damian) on board-->help appreciated * General surgery (Dr. Boyce) on board-->help appreciated * s/p ERCP with removal of stent and sphincterotomy with Dr. Damian 07/13/17 * CXR 07/13/17 does not show air under diaphragm. * Chest CT 07/13/17 shows pneumobilia as well as possible free air beneath Right Hemidiaphragm within Paraesophagel soft tissues. * CT Abdomen/Pelvis 07/13/17 shows gas fluid and stranding in the subcapsular and extracapsular area around Left Lobe Liver. * CT Abdomen/Pelvis on 07/14/17 showed gas and fluid around left lobe liver and along inferior vena cava that is unchanged, no evidence of extravasation of oral contrast from stomach or duodenem. * Abdomen X Ray 07/16/17 showed NO obstruction. * CT Abdomen/Pelvis w/o contrast 07/19/17: Fluid re-identified, which appears similar in size and likely subcapsular in location. No nathan currently evident with in the collection, Small pneumobila. Moderate bilateral pleural effusions and associated consolidations. Small abomdinla ascites. Small pelvic free fluid. Thicken walled under distended urinary bladder which contains air, Pacheco catheter is present * Ct abdomen/pelvis 07/25/17 PO contrast: no acute abdominal or pelvic abnormality; Small right and moderate left pleural effusion. Fatty liver. Small amount of air in the central biliary radicles is likely post surgical in etiology. * GI Dr. Damian spoke with IR 07/15/17 and area is NOT amenable to percutaneous drainage. * GI has signed off as of 07/28/17; No further planned GI intervention. Repeat CT Abdomen 07/25: fluid collection resolved * General surgery has signed off 07/27/17. No further planned intervention from Surgery * 07/30: recommended for 3 weeks of IV antibiotic as minimum and follow CT for resolution * 08/02: white count uptrending; patient recultured; f/u blood, urine and procalcitonin Status: Stable (4) Enterococcus faecium Bacteremia * Infectious Disease (Dr. Langford) on the board * Started on Tigecycline 50 mg IV Q12H after 100 mg initial infusion (07/17/17) * Discontinued Meropenem, Ciprofloxicin, and Vancomycin (07/17/17) * 07/14/17: Enterococcus Faecium X2 * Blood Culture: 07/17/17: No growth after 5 days (8:00) * Blood Culture: 07/17/17: Enterococcus Faecium (8:00) * Blood Culture: 07/20/17: No growth after 5 days * Flagyl 250mg IVPB Q8H (active since 07/18/17) * Tigecycline 50mg IV Q12h (active since 07/18/17) * Florastor 250mg PO BID * 07/30: Per ID, recommended for 3 week minimum of IV antibiotic * 08/02: Patient recultured given rise in white count. Status: Acute (5). Atrial Fibrillation/Elevated Troponin * Cardiology (Dr. Chau) on board-->help appreciated * The Atrial Fibrillation is likely secondary to the increased sympathetic tone from the Sepsis and the elevated Troponin likely secondary to the Atrial Fibrillation * Repeat EKG (NSR) 07/21/17 * Restart Toprol XL 25mg PO daily (patient was off beta-elkin prior secondary to cardiac arrest on 07/20/17) * held Aspirin 81mg PO daily given patient for OR tomorrow Status: Acute (6) Bilateral Pneumonia * CT Abdomen/Pelvis 07/13/17 showed bibasilar lingular and right middle lobe mild nonspecific infiltrates consistent with atelectasis/pneumonia * As patient was admitted to hospital within the last month (for Left Buttock Abscess) and has been on antibiotics, this is likely Health Care Associated Pneumonia with increased risk for Multidrug Resistence therefore he was treated with the following: * Meropenem 500 mg IV Q6H (07/14/17 through 07/17/17), Ciprofloxacin 400 mg IV Q12H (07/14/17 through 07/16/17),Vancomycin 1 gm IV Q24H (07/14/17 through ) and then patient started on Tigecycline as mentioned above * CT Abdomen/Pelvis w/o contrast 07/19/17: Fluid re-identified, which appears similar in size and likely subcapsular in location. No nathan currently evident with in the collection, Small pneumobila. Moderate bilateral pleural effusions and associated consolidations. Small abomdinla ascites. Small pelvic free fluid. Thicken walled under distended urinary bladder which contains air, Pacheco catheter is present * Chest xray (07/22/17): moderate left pleural effusion with consolidative opacification in the left mid to lower lung zone. trace right pleural effusion with adjacent right basilar consolidation. cardiomeglay. calcification at the aortic knob * Chest xray (07/23/17): interval removal of endotracheal and BG tube, right central venous catheter extending to the right SVC, worsening now near complete opacification of the left hemithorax with associated large left pleural effusion. Worsening prominent consolidative changes at the right lung base. Cardiomegaly. Calcification at aortic knob. Degenerative changes in the spine and shoulders. prominently dilated/distended loops of bowel in the upper abdomen * Chest xray (07/29): bilateral interval improvement in right basilar limited patchy density and mild left pleural effusion with signficiant residual noted at the left base. Left basilar atelectasis infiltrate remains posterior to the left heart. No pulmonary vascular derangement. Continued clinical and radiographic monitor advised. * Urine Legionella Ag is negative * Urine Strep pneumoniae Ag: non detected * Mycoplasma IgM is 81 (negative) Ig.07 * Influenza A/B is negative * Urine Culture is negative * Flagyl 250mg IVPB Q8H (active since 07/18/17) * Tigecycline 50mg IV Q12h (active since 07/18/17) * Florastor 250mg PO BID Status: Acute (7). Anion Gap Metabolic Acidosis * Sepsis: CODE SEPSIS was called 07/14/17 * See Assessment and Plans #2, #3, #5 * Due to the severe acidosis he was also started on D5W with 3 amps of NaHCO3 running at 100 ml/hour and this had resolved therefore the D5W NaHCO3 was discontinued 07/15/17. However the Acidosis returned and is likely secondary to the worsening Renal Function/Sepsis. Status: Acute (8). Hyperkalemia * Likely secondary to the Anion Gap Metabolic Acidosis * See Assessment and Plans #2 and #3 * Mild Status: Acute (9). CKD Stage III/Worsening Renal Failure/Hyponatremia * Nephrology Dr. Oconnell * The worsening Renal Function likely secondary to the Sepsis * Worsening Hyponatremia likely dilutional from the IVF initially used to help with the Renal Function. IVF have been discontinued. * Lasix 60 mg IV 2x/day started 07/18/17 to help with the Hyponatremia however there was no significant improvement on 07/19/17 * Despite the Lasix, renal function worsening 07/19/17. [employer] clinical documentation spec Dr. Larsen was notified 07/19/17 and HD orders have been provided by Dr. Larsen to HD Nurse Ramon Garibay to start HD once Dialysis Catheter is placed by the Surgical Team which is planned for morning of 07/20/17. * Dialysis MWF * Epocrit 10,000 unit IV MWF * Phoslo 1334mg PO TID * 07/30: discussed with Dr. Oconnell; recommended for vascular surgery eval for AV fistula placement prior to discharge Status: Acute on Chronic (10). Headache with Hx CVA-->Resolved Assessment and Plan: * CT Head 07/13/17 was negative for bleed or acute process * GI has signed off as of 07/28/17; No further planned GI intervention. Repeat CT Abdomen 07/25: fluid collection resolved * General surgery has signed off 07/27/17. No further planned intervention from Surgery * Aspirin 81mg PO daily * Plavix 75mg PO daily * Crestor 10mg POqHS Status: Chronic (11) AD (Alzheimer's disease) Assessment and Plan: * Aricept 10 mg PO daily Status: Chronic (12) Choledocholithiasis Assessment and Plan: * s/p ERCP with removal of stent and sphincterotomy with Dr. Damian 07/13/17 * GI has signed off as of 07/28/17; No further planned GI intervention. Repeat CT Abdomen 07/25: fluid collection resolved Status: Stable (13) Anemia Assessment and Plan: * Likely secondary to Chronic Disease: CKD Stage III * Resume Ferrous Sulfate 325 mg PO daily. * Epocrit 10,000 unit IV MWF * HgB/Hct are stable * ON aspirin/Plavix given hx of stroke; no further intervention per GI/General surgery Status: Chronic (14) Hx Left Gluteal abscess Assessment and Plan: * Was I&D by surgery team on 06/26/17 * Treated with Bactrim 800/160 PO Q12H for 7 days S/P discharge 06/27/17 Status: Chronic (15) HLD (hyperlipidemia) Assessment and Plan: * Lopid 600 mg PO BID * Patient takes Lipitor 80 mg PO HS which is not on formulary therefore Crestor 10 mg PO HS (renal dosed). Status: Chronic (16) HTN (hypertension) Assessment and Plan: * As the patient's blood pressure is on the low end and he is off Amiodarone Drip since 07/21, therefore the following medications are on HOLD: Amlodipine 10 mg PO daily, Metoprolol XL 100 mg PO daily, and Losartan 100 mg PO daily are all on HOLD * 07/22: patient is off Amiodarone drip since 07/21; but patient is back in atrial fibrillation but is due for second dialysis today. patient's anti- hypertensives remain on hold Status: Chronic (17) Diabetes Assessment and Plan: * Diabetic Diet since 07/28/17-->adjust given patient is renal dialysis, first time dialysis this hospitalization * Accuchecks QAC and HS * Aspirin 81mg Po daily * Crestor 10mg POqHS * [id number]: 8.3 Status: Chronic (18) History of hypothyroidism Assessment and Plan: * Levothyroxine 50 mcg PO daily * TSH, Free T4 are normal Status: Chronic (19) Overactive bladder Assessment and Plan: * Festerodine 8 mg PO 1x/day * Enlarged Prostate on CT Abdomen/Pelvis * PSA >23.3--->Will need to be follow-up by urology as outpatient with repeat PSA Status: Chronic (20) Hx of glaucoma Assessment and Plan: * Patient's home med Travatan ggt not on formulary. * Started Xalatan ggt in bilateral eyes. Status: Chronic (21) Hx of gastroesophageal reflux (GERD) Assessment and Plan: * Protonix 40 mg IV daily Status: Chronic (22) Thrombocytopenia Assessment and Plan: * Hematology-oncology (Dr. Chet Paniagua) on consult) * Dropped; no bleeding noted * Stopped Aspirin/Plavix (Was on for history of stroke) * Stopped Heparin * Ordered for HIT and KAITLYNN release assay * platelet function test ordered (23) Prophylactic measure Assessment and Plan: * Protonix 40 mg PO daily * SCDs * Ascorbic Acid 250 mg PO daily * Florastor 250 mg PO 2x/day * Zofran 4 mg IV Q6H PRN N/V * Intubated on 07/20/17; extubated 07/22/17; on Pressor 07/21; off sedation; off amiodarone IV 07/21 * PT eval in progress * Tolerating diet * Lyndsey Mikael (niece): [phone] Disposition: * GI and General surgery have signed off. * Per ID, recc min 3 weeks IV rx and follow up imaging to r/o residual collection from 07/30; patient recultured today given rise in WBC * Vascular surgery eval in progress given nephrology recommendation for AV flstula placement * Surgery to obtain consent for AV fistula placement * Platelets decreased. Stopped Heparin DVT ppx. Held Aspirin/Plavix. Ordered for HIT, KAITLYNN assay. * Discussed with Lyndsey patient's niece in regards to updates in regards to uncle's hospitalization 08/02 * Awaiting subacute rehab eval; note pending AV fistula placement and dialysis placement to be secured
[2017-08-02] MEDS: metroNIDAZOLE IV 500 mg/100 ml 250 MG in Premixed IV 1 EA IVPB SCH ×3 (05:20→21:43)
[2017-08-02] MEDS: Levothyroxine 50 MCG TAB PO SCH (05:49)
[2017-08-02] MEDS: (Novolin R) Insulin Human Regular 100 units/ml vial SC SCH ×3 (08:09→18:53)
--- NOTE | 2017-08-02 08:22 | CP.PCM.PN ---
Subjective - Date & Time of Evaluation Date of Evaluation: 08/02/17 Time of Evaluation: 06:50 - Subjective Subjective: Vascular Surgery Note for Dr. Villanueva Patient seen and examined at bedside. No acute event overnight. Patient had dialysis yesterday. Patient going to OR on Thursday for AVF creation. Left arm restriction. Denies fever/chills, chest pain, shortness of breath, nausea/ vomiting, diarrhea. Objective - Vital Signs/Intake and Output Vital Signs (last 24 hours): Temp Pulse Resp BP Pulse Ox 98.9 F 86 20 132/79 97 08/01/17 23:10 08/02/17 04:11 08/01/17 23:10 08/01/17 23:10 08/01/17 23:10 Intake and Output: 08/02/17 08/02/17 06:59 18:59 Intake Total 220 Output Total 125 Balance 95 - Medications Medications: Current Medications Albuterol Sulfate (Albuterol 0.042% Inhal Ruby (1.25mg/3ml) Ud) 1.25 mg INH RQ6 PRN PRN Reason: Wheezing Last Admin: 08/01/17 14:02 Dose: 1.25 mg Ascorbic Acid (Vitamin C 250 Mg Tab) 250 mg PO DAILY [facility] Last Admin: 08/01/17 10:20 Dose: 250 mg Aspirin (Aspirin Chewable) 81 mg PO DAILY [facility] Last Admin: 08/01/17 10:18 Dose: 81 mg Benzocaine/Menthol (Cepacol Sore Throat) 1 love MT Q2 PRN PRN Reason: Sore Throat Last Admin: 07/31/17 05:21 Dose: 1 love Calcium Acetate (Phoslo) 1,334 mg PO TID [facility] Last Admin: 08/01/17 18:00 Dose: Not Given Clopidogrel Bisulfate (Plavix) 75 mg PO DAILY [facility] Last Admin: 08/01/17 10:19 Dose: 75 mg Cyproheptadine HCl (Periactin) 4 mg PO BID [facility] Last Admin: 08/01/17 18:00 Dose: Not Given Donepezil HCl (Aricept) 10 mg PO HS [facility] Last Admin: 08/01/17 21:31 Dose: 10 mg Epoetin Romel (Procrit) 10,000 unit IV MWF [facility] Last Admin: 08/01/17 16:44 Dose: 10,000 unit Ferrous Sulfate (Feosol) 325 mg PO Q12H [facility] Last Admin: 08/02/17 05:50 Dose: 325 mg Heparin Sodium (Porcine) (Heparin) 5,000 units SC Q8 [facility] Last Admin: 08/02/17 05:26 Dose: 5,000 units Home Med (Fesoterodine Fumarate [Toviaz]) 8 mg PO DAILY [facility] Hydromorphone HCl (Dilaudid) 0.5 mg IVP Q4 PRN PRN Reason: Pain, severe (8-10) Last Admin: 07/31/17 17:56 Dose: 0.5 mg Metronidazole 250 mg/ (Miscellaneous) 50 mls @ 100 mls/hr IVPB Q8 [facility] Last Admin: 08/02/17 05:20 Dose: 100 mls/hr Tigecycline 50 mg/ Sodium (Chloride) 50 mls @ 100 mls/hr IVPB Q12H [facility] Last Admin: 08/02/17 06:04 Dose: 100 mls/hr Insulin Human Regular (Novolin R) 0 unit SC ACHS [facility] PRN Reason: Protocol Last Admin: 08/02/17 08:09 Dose: Not Given Latanoprost (Xalatan Opht) 0 ml OU HS [facility] Last Admin: 08/01/17 21:31 Dose: 2.5 ml Levothyroxine Sodium (Synthroid) 50 mcg PO DAILY@0630 [facility] Last Admin: 08/02/17 05:49 Dose: 50 mcg Metoprolol Succinate (Toprol Xl) 25 mg PO DAILY [facility] Last Admin: 08/01/17 10:20 Dose: 25 mg Ondansetron HCl (Zofran Inj) 4 mg IVP Q6 PRN PRN Reason: Nausea/Vomiting Last Admin: 07/29/17 13:43 Dose: 4 mg Pantoprazole Sodium (Protonix Ec Tab) 40 mg PO DAILY [facility] Last Admin: 08/01/17 10:19 Dose: 40 mg Polyethylene Glycol (Miralax) 17 gm PO DAILY [facility] Last Admin: 08/01/17 10:19 Dose: Not Given Rosuvastatin Calcium (Crestor) 10 mg PO HS [facility] Last Admin: 08/01/17 21:30 Dose: 10 mg Saccharomyces Boulardii (Florastor) 250 mg PO BID [facility] Last Admin: 08/01/17 18:00 Dose: Not Given - Labs Labs: 07/31/17 08:08 07/31/17 08:08 PT 14.3 SECONDS (9.7-12.2) H 07/16/17 04:00 INR 1.3 07/16/17 04:00 APTT 29 SECONDS (21-34) 07/13/17 20:04 - Constitutional Appears: No Acute Distress - Head Exam Head Exam: ATRAUMATIC, NORMOCEPHALIC - ENT Exam ENT Exam: Mucous Membranes Moist - Respiratory Exam Respiratory Exam: NORMAL BREATHING PATTERN - Cardiovascular Exam Cardiovascular Exam: REGULAR RHYTHM - GI/Abdominal Exam GI & Abdominal Exam: Soft. absent: Tenderness - Extremities Exam Additional comments: Picc line in r arm left arm restriction - Neurological Exam Neurological Exam: Alert, Awake - Psychiatric Exam Psychiatric exam: Normal Affect, Normal Mood - Skin Skin Exam: Dry, Normal Color, Warm Assessment and Plan - Assessment and Plan (Free Text) Plan: 82M ESRD on Hemodialysis - plan for OR Thursday - NPO past MN - Discussed with Dr. Kay Ordoñez PGY1
[2017-08-02 08:53] LABS: BASO # 0.2 K/uL (0.0-0.2); BASO % 1.3 % (0.0-2.0); EOS # 0.7 K/uL (0.0-0.7); HEMATOCRIT 26.7 % (35.0-51.0); LYMPH # 3.2 K/uL (1.0-4.3); LYMPH % 17.6 % (20.0-40.0); MEAN CELL VOLUME 86.5 fL (80.0-94.0); MEAN CORPUSCULAR HEMOGLOBIN 27.7 pg (27.0-31.0); MEAN PLATELET VOLUME 8.3 fL (7.2-11.7); MONO # 1.9 K/uL (0.0-0.8); MONO % 10.2 % (0.0-10.0); NRBC % 0.1 % (0.0-2.0); RED CELL DISTRIBUTION WIDTH 16.2 % (11.5-14.5); WHITE BLOOD COUNT 18.4 K/uL (4.8-10.8)
[2017-08-02 09:03] LABS: INR 1.4
[2017-08-02 09:08] LABS: CALCIUM 7.1 mg/dl (8.6-10.4); POTASSIUM 4.1 mmol/L (3.6-5.2)
[2017-08-02] MEDS: Saccharomyces Boulardi 250 mg Cap PO SCH ×2 (09:52→18:47)
[2017-08-02] MEDS: Metoprolol Succinate 25 mg XL Tab PO SCH (09:53)
[2017-08-02] MEDS: POLYETHYLENE GLYCOL 3350 17 GM/Dose PACKET PO SCH (09:53)
[2017-08-02] MEDS: Pantoprazole 40 mg EC Tab PO SCH (09:53)
--- NOTE | 2017-08-02 13:38 | CP.PCM.PN ---
Subjective - Date & Time of Evaluation Date of Evaluation: 08/02/17 Time of Evaluation: 09:00 - Subjective Subjective: weak bedridden and confused as before IV rx in progress still c/o abd pain Objective - Vital Signs/Intake and Output Vital Signs (last 24 hours): Temp Pulse Resp BP Pulse Ox 98.4 F 85 20 135/83 100 08/02/17 07:00 08/02/17 07:00 08/02/17 07:00 08/02/17 07:00 08/02/17 07:00 Intake and Output: 08/02/17 08/02/17 06:59 18:59 Intake Total 220 Output Total 125 Balance 95 - Medications Medications: Current Medications Albuterol Sulfate (Albuterol 0.042% Inhal Ruby (1.25mg/3ml) Ud) 1.25 mg INH RQ6 PRN PRN Reason: Wheezing Last Admin: 08/01/17 14:02 Dose: 1.25 mg Ascorbic Acid (Vitamin C 250 Mg Tab) 250 mg PO DAILY [facility] Last Admin: 08/02/17 09:53 Dose: 250 mg Aspirin (Aspirin Chewable) 81 mg PO DAILY [facility] Last Admin: 08/02/17 09:52 Dose: 81 mg Benzocaine/Menthol (Cepacol Sore Throat) 1 love MT Q2 PRN PRN Reason: Sore Throat Last Admin: 07/31/17 05:21 Dose: 1 love Calcium Acetate (Phoslo) 1,334 mg PO TID [facility] Last Admin: 08/02/17 09:53 Dose: Not Given Clopidogrel Bisulfate (Plavix) 75 mg PO DAILY [facility] Last Admin: 08/02/17 09:53 Dose: 75 mg Cyproheptadine HCl (Periactin) 4 mg PO BID [facility] Last Admin: 08/02/17 09:53 Dose: 4 mg Donepezil HCl (Aricept) 10 mg PO HS [facility] Last Admin: 08/01/17 21:31 Dose: 10 mg Epoetin Romel (Procrit) 10,000 unit IV MWF [facility] Last Admin: 08/01/17 16:44 Dose: 10,000 unit Ferrous Sulfate (Feosol) 325 mg PO Q12H [facility] Last Admin: 08/02/17 05:50 Dose: 325 mg Heparin Sodium (Porcine) (Heparin) 5,000 units SC Q8 [facility] Last Admin: 08/02/17 05:26 Dose: 5,000 units Home Med (Fesoterodine Fumarate [Toviaz]) 8 mg PO DAILY [facility] Hydromorphone HCl (Dilaudid) 0.5 mg IVP Q4 PRN PRN Reason: Pain, severe (8-10) Last Admin: 07/31/17 17:56 Dose: 0.5 mg Metronidazole 250 mg/ (Miscellaneous) 50 mls @ 100 mls/hr IVPB Q8 [facility] Last Admin: 08/02/17 05:20 Dose: 100 mls/hr Tigecycline 50 mg/ Sodium (Chloride) 50 mls @ 100 mls/hr IVPB Q12H [facility] Last Admin: 08/02/17 06:04 Dose: 100 mls/hr Insulin Human Regular (Novolin R) 0 unit SC ACHS [facility] PRN Reason: Protocol Last Admin: 08/02/17 12:10 Dose: 3 unit Latanoprost (Xalatan Opht) 0 ml OU HS [facility] Last Admin: 08/01/17 21:31 Dose: 2.5 ml Levothyroxine Sodium (Synthroid) 50 mcg PO DAILY@0630 [facility] Last Admin: 08/02/17 05:49 Dose: 50 mcg Metoprolol Succinate (Toprol Xl) 25 mg PO DAILY [facility] Last Admin: 08/02/17 09:53 Dose: 25 mg Ondansetron HCl (Zofran Inj) 4 mg IVP Q6 PRN PRN Reason: Nausea/Vomiting Last Admin: 07/29/17 13:43 Dose: 4 mg Pantoprazole Sodium (Protonix Ec Tab) 40 mg PO DAILY [facility] Last Admin: 08/02/17 09:53 Dose: 40 mg Polyethylene Glycol (Miralax) 17 gm PO DAILY [facility] Last Admin: 08/02/17 09:53 Dose: 17 gm Rosuvastatin Calcium (Crestor) 10 mg PO HS [facility] Last Admin: 08/01/17 21:30 Dose: 10 mg Saccharomyces Boulardii (Florastor) 250 mg PO BID [facility] Last Admin: 08/02/17 09:52 Dose: Not Given - Labs Labs: 08/02/17 08:44 08/02/17 08:44 PT 16.1 SECONDS (9.7-12.2) H 08/02/17 08:44 INR 1.4 08/02/17 08:44 APTT 32 SECONDS (21-34) 08/02/17 08:44 - Constitutional Appears: Non-toxic, Chronically Ill - Head Exam Head Exam: NORMOCEPHALIC - Eye Exam Eye Exam: PERRL Pupil Exam: NORMAL ACCOMODATION - ENT Exam ENT Exam: Mucous Membranes Dry - Neck Exam Neck Exam: absent: Lymphadenopathy - Respiratory Exam Respiratory Exam: Decreased Breath Sounds, Rhonchi - Cardiovascular Exam Cardiovascular Exam: REGULAR RHYTHM, +S1, +S2 - GI/Abdominal Exam GI & Abdominal Exam: Distended, Soft, Tenderness - Rectal Exam Rectal Exam: Deferred - Exam Exam: NORMAL INSPECTION - Extremities Exam Extremities Exam: absent: Pedal Edema - Back Exam Back Exam: absent: CVA tenderness (L), CVA tenderness (R) - Neurological Exam Neurological Exam: Alert, Altered, Awake - Psychiatric Exam Psychiatric exam: Depressed - Skin Skin Exam: Dry Assessment and Plan (1) JAY JAY (acute kidney injury) Status: Acute (2) CVA, old, cognitive deficits Status: Acute (3) Chronic kidney disease, stage III (moderate) Status: Acute (4) Headache Status: Acute (5) Hx of gastroesophageal reflux (GERD) Status: Acute - Assessment and Plan (Free Text) Assessment: wbc trending up will reculture cont HD / supportive care
[2017-08-02 16:18] LABS: URINE BACTERIA RARE (<OCC); URINE BILIRUBIN NEGATIVE (NEGATIVE); URINE BLOOD NEGATIVE (NEGATIVE); URINE GLUCOSE (UA) NORMAL (Normal); URINE KETONE NEGATIVE (NEGATIVE); URINE LEUKOCYTE ESTERASE TRACE Leu/uL (Negative); URINE PROTEIN 1+ mg/dL (NEGATIVE); URINE UROBILINOGEN NORMAL mg/dL (0.2-1.0); WBC URINE 4 /hpf (0-5)
[2017-08-02 16:32] LABS: URINE COLOR YELLOW (YELLOW)
[2017-08-02 20:01] LABS: PLT(ADP) 12 K/uL
[2017-08-02 20:04] LABS: FUNCTIONING PLTS 88 K/uL; PLT BASE COUNT 100 K/uL
[2017-08-02] MEDS: Latanoprost 2.5 ml Opht Soln OU SCH (21:44)
[2017-08-03] MEDS: metroNIDAZOLE IV 500 mg/100 ml 250 MG in Premixed IV 1 EA IVPB SCH ×3 (05:53→22:16)
[2017-08-03] MEDS: Levothyroxine 50 MCG TAB PO SCH (06:31)
--- NOTE | 2017-08-03 08:12 | CP.PCM.PN ---
Subjective - Date & Time of Evaluation Date of Evaluation: 08/03/17 Time of Evaluation: 07:15 - Subjective Subjective: Patient was seen and examined at bedside in the AM. Patient still complains of mild chest pain and abdominal pain. Denies headache, fever, chills, shortness of breath, cough, constipation, diarrhea. Objective - Vital Signs/Intake and Output Vital Signs (last 24 hours): Temp Pulse Resp BP Pulse Ox 97.8 F 83 18 145/75 100 08/03/17 07:30 08/03/17 07:30 08/03/17 07:30 08/03/17 07:30 08/03/17 07:30 Intake and Output: 08/03/17 08/03/17 06:59 18:59 Intake Total 500 Output Total 100 Balance 400 - Medications Medications: Current Medications Albuterol Sulfate (Albuterol 0.042% Inhal Ruby (1.25mg/3ml) Ud) 1.25 mg INH RQ6 PRN PRN Reason: Wheezing Last Admin: 08/01/17 14:02 Dose: 1.25 mg Ascorbic Acid (Vitamin C 250 Mg Tab) 250 mg PO DAILY [facility] Last Admin: 08/02/17 09:53 Dose: 250 mg Aspirin (Aspirin Chewable) 81 mg PO DAILY [facility] Last Admin: 08/02/17 09:52 Dose: 81 mg Benzocaine/Menthol (Cepacol Sore Throat) 1 love MT Q2 PRN PRN Reason: Sore Throat Last Admin: 07/31/17 05:21 Dose: 1 love Calcium Acetate (Phoslo) 1,334 mg PO TIDCC [facility] Last Admin: 08/02/17 17:41 Dose: Not Given Clopidogrel Bisulfate (Plavix) 75 mg PO DAILY [facility] Last Admin: 08/02/17 09:53 Dose: 75 mg Donepezil HCl (Aricept) 10 mg PO HS [facility] Last Admin: 08/02/17 21:44 Dose: 10 mg Epoetin Romel (Procrit) 10,000 unit IV MWF [facility] Last Admin: 08/01/17 16:44 Dose: 10,000 unit Ferrous Sulfate (Feosol) 325 mg PO Q12H [facility] Last Admin: 08/03/17 06:31 Dose: Not Given Heparin Sodium (Porcine) (Heparin) 5,000 units SC Q8 [facility] Last Admin: 08/02/17 13:57 Dose: 5,000 units Home Med (Fesoterodine Fumarate [Toviaz]) 8 mg PO DAILY [facility] Hydromorphone HCl (Dilaudid) 0.5 mg IVP Q4 PRN PRN Reason: Pain, severe (8-10) Last Admin: 07/31/17 17:56 Dose: 0.5 mg Metronidazole 250 mg/ (Miscellaneous) 50 mls @ 100 mls/hr IVPB Q8 [facility] Last Admin: 08/03/17 05:53 Dose: 100 mls/hr Tigecycline 50 mg/ Sodium (Chloride) 50 mls @ 100 mls/hr IVPB Q12H [facility] Last Admin: 08/03/17 06:31 Dose: 100 mls/hr Insulin Human Regular (Novolin R) 0 unit SC ACHS [facility] PRN Reason: Protocol Last Admin: 08/03/17 00:00 Dose: Not Given Latanoprost (Xalatan Opht) 0 ml OU HS [facility] Last Admin: 08/02/17 21:44 Dose: 0.02 ml Levothyroxine Sodium (Synthroid) 50 mcg PO DAILY@0630 [facility] Last Admin: 08/03/17 06:31 Dose: Not Given Metoprolol Succinate (Toprol Xl) 25 mg PO DAILY [facility] Last Admin: 08/02/17 09:53 Dose: 25 mg Ondansetron HCl (Zofran Inj) 4 mg IVP Q6 PRN PRN Reason: Nausea/Vomiting Last Admin: 07/29/17 13:43 Dose: 4 mg Pantoprazole Sodium (Protonix Ec Tab) 40 mg PO DAILY [facility] Last Admin: 08/02/17 09:53 Dose: 40 mg Polyethylene Glycol (Miralax) 17 gm PO DAILY [facility] Last Admin: 08/02/17 09:53 Dose: 17 gm Rosuvastatin Calcium (Crestor) 10 mg PO HS [facility] Last Admin: 08/02/17 21:44 Dose: 10 mg Saccharomyces Boulardii (Florastor) 250 mg PO BID [facility] Last Admin: 08/02/17 18:47 Dose: 250 mg - Labs Labs: 08/02/17 08:44 08/02/17 08:44 PT 16.1 SECONDS (9.7-12.2) H 08/02/17 08:44 INR 1.4 08/02/17 08:44 APTT 32 SECONDS (21-34) 08/02/17 08:44 - Constitutional Appears: No Acute Distress - Head Exam Head Exam: ATRAUMATIC, NORMAL INSPECTION - Eye Exam Eye Exam: EOMI, Normal appearance - ENT Exam ENT Exam: Mucous Membranes Moist - Respiratory Exam Respiratory Exam: Clear to Ausculation Bilateral, NORMAL BREATHING PATTERN. absent: Rales, Rhonchi, Wheezes, Stridor - Cardiovascular Exam Cardiovascular Exam: REGULAR RHYTHM, +S1, +S2 - GI/Abdominal Exam GI & Abdominal Exam: Soft, Normal Bowel Sounds. absent: Tenderness - Extremities Exam Extremities Exam: Normal Inspection - Neurological Exam Neurological Exam: Alert, Awake. absent: Oriented x3 (oriented to person and place ) - Psychiatric Exam Psychiatric exam: Normal Affect, Normal Mood - Skin Skin Exam: Dry, Normal Color, Warm. absent: Intact (stage 1 gluteal ulcer ) Assessment and Plan - Assessment and Plan (Free Text) Assessment: 1.) Pulseless electrical activity on 07/20/17 - s/p permacath - Patient was intubated 07/20/17 and extubated 07/22/17 - Patient is now currently oriented to person and place 2.) Chest pain atypical Cardiac Consult: Dr. Chau --> help appreciated - ECHO 07/13/17: LVEF 60%; moderate concentric left ventricular hypertrophy; transmitral doppler flow pattern Grade I abnormal relaxation; Mitral regurgitation is trace. - Elevated troponin due to sepsis and afib 3.) Enterococcus faecium Bacteremia ID Consult: Dr. Langford --> help appreciated - Blood Culture: 07/17/17: Enterococcus Faecium (8:00) - Blood Culture: 07/20/17: No growth after 5 days - Medications * Flagyl/Tigecycline -Per Dr. Langford: Receive a total of 3 weeks after first negative blood cultures 4.) ERCP Guidewire Perforation of Liver Capsule / Peripheral Bile Duct GI Dr. Damian Signed off - s/p ERCP with removal of stent and sphincterotomy with Dr. Damian Surgery Consult: Dr. Boyce - No surgical intervention - CT abdomen/pelvis 07/25/17 PO contrast: no acute abdominal or pelvic abnormality; Small right and moderate left pleural effusion. Fatty liver. Small amount of air in the central biliary radicles is likely post surgical in etiology. 5.) Atrial Fibrillation Cardiology Consult: Dr. Chau --> help appreciated - ECHO 07/13/17: LVEF 60%; moderate concentric left ventricular hypertrophy; transmitral doppler flow pattern Grade I abnormal relaxation; Mitral regurgitation is trace. - Repeat EKG (NSR) 07/21/17 * Toprol XL 25mg PO daily * Aspirin 81mg PO daily 6.) Bilateral Pneumonia - Chest X-Ray 07/29/17 - mild airspace disease still present, R sided has resolved - Urine Legionella Ag is negative - Urine Strep pneumoniae Ag: non detected - Mycoplasma IgM is 81 (negative) Ig.07 - Influenza A/B is negative Medications: * Flagyl 250mg IVPB Q8H (active since 07/18/17) * Tigecycline 50mg IV Q12h (active since 07/18/17) * Florastor 250mg PO BID 7.) CKD Stage III Nephro Consult: Dr. Oconnell --> help appreciated * Dialysis MWF * Epocrit 10,000 unit IV MWF Vascular Consult: Dr. Villanueva --> help appreciated - AVF Thursday - cancelled due to patient's infection 8.) History of CVA - CT Head 07/13/17 was negative for bleed or acute process * Aspirin 81mg PO daily * Plavix 75mg PO daily - hold * Crestor 10mg POqHS 9.) Thrombocytopenia Hematology/Oncology: Dr. Paniagua --> help appreciated - Plavix and Heparin placed on hold - Platelet 89 --> 136 - f/u HIT and KAITLYNN release assay 10.) Anemia possibly secondary to CKD * Ferrous Sulfate 325 mg PO daily * Epocrit 10,000 unit IV MWF 11.) Gluteal Abscess - Wound care 12.) History of Alzheimer's disease * Aricept 10 mg PO daily 13.) History of Hyperlipidemia * Lopid 600 mg PO BID * Crestor 10 mg PO HS 14.) History of HTN * Metoprolol XL 25 PO QD * Losartan 100 PO QD 15.) History of Diabetes - Ha1c: 8.3 * ISS Q6H * Accuchecks Q6H 16) History of Hypothyroidism - TSH: 0.80; T4: 1.05 * Levothyroxine 50 PO QD 17.) History of Overactive bladder * Festerodine 8 PO QD 18.) History of glaucoma * Xalatan ggt 19.) Prophylactic measure * Protonix 40 IV QD * Plavix and heparin on hold * Aspirin 81mg daily Disposition: Discharge to a subacute rehab Case discussed with Dr. Swetha Hayden PGY-1
[2017-08-03] MEDS: (Novolin R) Insulin Human Regular 100 units/ml vial SC SCH ×5 (08:44→22:01)
[2017-08-03] MEDS: Metoprolol Succinate 25 mg XL Tab PO SCH (09:42)
[2017-08-03] MEDS: POLYETHYLENE GLYCOL 3350 17 GM/Dose PACKET PO SCH (09:54)
[2017-08-03] MEDS: Pantoprazole 40 mg EC Tab PO SCH (09:54)
[2017-08-03] MEDS: Saccharomyces Boulardi 250 mg Cap PO SCH ×2 (09:54→17:59)
[2017-08-03 09:56] LABS: BASO # 0.2 K/uL (0.0-0.2); BASO % 1.1 % (0.0-2.0); EOS # 0.7 K/uL (0.0-0.7); EOS % 3.9 % (0.0-4.0); HEMATOCRIT 28.4 % (35.0-51.0); LYMPH % 17.8 % (20.0-40.0); MEAN CORPUSCULAR HEMOGLOBIN 27.9 pg (27.0-31.0); MEAN PLATELET VOLUME 8.5 fL (7.2-11.7); MONO # 1.5 K/uL (0.0-0.8); MONO % 8.7 % (0.0-10.0); NRBC % 0.3 % (0.0-2.0); RED CELL DISTRIBUTION WIDTH 16.9 % (11.5-14.5); WHITE BLOOD COUNT 16.8 K/uL (4.8-10.8)
[2017-08-03 10:11] LABS: CALCIUM 7.3 mg/dl (8.6-10.4); POTASSIUM 4.2 mmol/L (3.6-5.2)
--- NOTE | 2017-08-03 12:04 | CP.PCM.PN ---
Subjective - Date & Time of Evaluation Date of Evaluation: 08/03/17 Time of Evaluation: 12:01 - Subjective Subjective: appears same; only c/o abdominal pains av access cancelled- poor av access options - per vein mapping dialysis schedule changed to TTS BP controlled same abominal pains remains on IV ABs Objective - Vital Signs/Intake and Output Vital Signs (last 24 hours): Temp Pulse Resp BP Pulse Ox 97.8 F 77 18 145/75 100 08/03/17 07:30 08/03/17 11:44 08/03/17 07:30 08/03/17 07:30 08/03/17 07:30 Intake and Output: 08/03/17 08/03/17 06:59 18:59 Intake Total 500 Output Total 100 Balance 400 - Medications Medications: Current Medications Albuterol Sulfate (Albuterol 0.042% Inhal Ruby (1.25mg/3ml) Ud) 1.25 mg INH RQ6 PRN PRN Reason: Wheezing Last Admin: 08/01/17 14:02 Dose: 1.25 mg Ascorbic Acid (Vitamin C 250 Mg Tab) 250 mg PO DAILY [facility] Last Admin: 08/03/17 09:54 Dose: Not Given Aspirin (Aspirin Chewable) 81 mg PO DAILY [facility] Last Admin: 08/02/17 09:52 Dose: 81 mg Benzocaine/Menthol (Cepacol Sore Throat) 1 love MT Q2 PRN PRN Reason: Sore Throat Last Admin: 07/31/17 05:21 Dose: 1 love Calcium Acetate (Phoslo) 1,334 mg PO TIDCC [facility] Last Admin: 08/03/17 08:44 Dose: Not Given Clopidogrel Bisulfate (Plavix) 75 mg PO DAILY [facility] Last Admin: 08/02/17 09:53 Dose: 75 mg Donepezil HCl (Aricept) 10 mg PO HS [facility] Last Admin: 08/02/17 21:44 Dose: 10 mg Epoetin Romel (Procrit) 10,000 unit IV MWF [facility] Last Admin: 08/01/17 16:44 Dose: 10,000 unit Ferrous Sulfate (Feosol) 325 mg PO Q12H [facility] Last Admin: 08/03/17 06:31 Dose: Not Given Heparin Sodium (Porcine) (Heparin) 5,000 units SC Q8 [facility] Last Admin: 08/02/17 13:57 Dose: 5,000 units Home Med (Fesoterodine Fumarate [Toviaz]) 8 mg PO DAILY [facility] Hydromorphone HCl (Dilaudid) 0.5 mg IVP Q4 PRN PRN Reason: Pain, severe (8-10) Last Admin: 07/31/17 17:56 Dose: 0.5 mg Metronidazole 250 mg/ (Miscellaneous) 50 mls @ 100 mls/hr IVPB Q8 [facility] Last Admin: 08/03/17 05:53 Dose: 100 mls/hr Tigecycline 50 mg/ Sodium (Chloride) 50 mls @ 100 mls/hr IVPB Q12H [facility] Last Admin: 08/03/17 06:31 Dose: 100 mls/hr Insulin Human Regular (Novolin R) 0 unit SC ACHS [facility] PRN Reason: Protocol Last Admin: 08/03/17 08:44 Dose: Not Given Latanoprost (Xalatan Opht) 0 ml OU HS [facility] Last Admin: 08/02/17 21:44 Dose: 0.02 ml Levothyroxine Sodium (Synthroid) 50 mcg PO DAILY@0630 [facility] Last Admin: 08/03/17 06:31 Dose: Not Given Metoprolol Succinate (Toprol Xl) 25 mg PO DAILY [facility] Last Admin: 08/03/17 09:42 Dose: 25 mg Ondansetron HCl (Zofran Inj) 4 mg IVP Q6 PRN PRN Reason: Nausea/Vomiting Last Admin: 07/29/17 13:43 Dose: 4 mg Pantoprazole Sodium (Protonix Ec Tab) 40 mg PO DAILY [facility] Last Admin: 08/03/17 09:54 Dose: Not Given Polyethylene Glycol (Miralax) 17 gm PO DAILY [facility] Last Admin: 08/03/17 09:54 Dose: Not Given Rosuvastatin Calcium (Crestor) 10 mg PO HS [facility] Last Admin: 08/02/17 21:44 Dose: 10 mg Saccharomyces Boulardii (Florastor) 250 mg PO BID [facility] Last Admin: 08/03/17 09:54 Dose: Not Given - Labs Labs: 08/03/17 09:50 08/03/17 09:50 PT 16.1 SECONDS (9.7-12.2) H 08/02/17 08:44 INR 1.4 08/02/17 08:44 APTT 32 SECONDS (21-34) 08/02/17 08:44 - Constitutional Appears: No Acute Distress, Chronically Ill - Head Exam Head Exam: ATRAUMATIC, NORMAL INSPECTION - Eye Exam Eye Exam: EOMI, Normal appearance - Neck Exam Neck Exam: Normal Inspection. absent: Tenderness - Respiratory Exam Respiratory Exam: Clear to Ausculation Bilateral, NORMAL BREATHING PATTERN - Cardiovascular Exam Cardiovascular Exam: REGULAR RHYTHM, +S1 - GI/Abdominal Exam GI & Abdominal Exam: Soft, Tenderness - Extremities Exam Extremities Exam: Normal Inspection. absent: Tenderness - Neurological Exam Neurological Exam: Alert, CN II-XII Intact - Skin Skin Exam: Dry, Warm Assessment and Plan (1) Hx of stroke without residual deficits Status: Acute (2) History of hypertension Status: Chronic (3) JAY JAY (acute kidney injury) Status: Acute (4) Type 2 diabetes mellitus with diabetic nephropathy Status: Acute (5) Proteinuria Status: Acute (6) Hyponatremia with excess extracellular fluid volume Status: Resolved (7) ESRD (end stage renal disease) Status: Acute - Assessment and Plan (Free Text) Plan: Dialysis TTS Same meds continue dialysis via catheter PD likely not good option
--- NOTE | 2017-08-03 12:16 | VASCLAB ---
PROCEDURE: Upper Extremity Venous Duplex Exam HISTORY: ESRD, Pre-op AV Fistula PRIORS: None. TECHNIQUE: Bilateral upper extremity, internal jugular, subclavian, axillary, brachial, ulnar, radial, basilic and upper cephalic veins were evaluated. Flow was assessed with color Doppler, compressibility, assessment of phasic flow and augmentation response. Report prepared by JOSEE Marti FINDINGS: RIGHT: 1. Internal Jugular Vein: Compressibility - Fully compressible: Thrombus - None : Flow - Phasic 2. Subclavian Vein:Compressibility - Fully compressible: Thrombus - None : Flow - Phasic 3. Axillary Vein: Compressibility - Fully compressible: Thrombus - None 4. Brachial Vein: Not examined 5. Ulnar Vein:Compressibility - Fully compressible: Thrombus - None 6. Radial Vein:Compressibility - Fully compressible: Thrombus - None 7. Cephalic Vein: Compressibility - Fully compressible: thrombus - None 8. Basilic Vein: 8.1. Upper Arm: Not examined 8.2. Forearm: Not visualized LEFT: 1. Internal Jugular Vein: Compressibility - Fully compressible: Thrombus - None : Flow - Phasic 2. Subclavian Vein: Not examined 3. Axillary Vein: Compressibility - Fully compressible: Thrombus - None 4. Brachial Vein: Compressibility - Fully compressible: Thrombus - None 5. Ulnar Vein:Compressibility - Fully compressible: Thrombus - None 6. Radial Vein:Compressibility - Fully compressible: Thrombus - None 7. Cephalic Vein: Not visualized 8. Basilic Vein: Not visualized OTHER FINDINGS: Limited imaging of bilateral deep veins, due to lines and permanent dialysis catheter present. IMPRESSION: Right: Diameter measurements of the right cephalic vein: Upper Arm: Proximal Diameter: 0.11cm. Mid Diameter: 0.13cm. Limited view of the cephalic vein due to diminished caliber. The right basilic vein is not visualized. Left: The left cephalic and basilic veins are not visualized.
[2017-08-03] MEDS: HYDROmorphone 0.5 mg/0.5 ml ISec IVP PRN (12:50)
--- NOTE | 2017-08-03 13:16 | CP.PCM.PN ---
Subjective - Date & Time of Evaluation Date of Evaluation: 08/03/17 Time of Evaluation: 09:00 - Subjective Subjective: discussed on rounds complete 3 weeks rx Objective - Vital Signs/Intake and Output Vital Signs (last 24 hours): Temp Pulse Resp BP Pulse Ox 97.8 F 77 18 145/75 100 08/03/17 07:30 08/03/17 11:44 08/03/17 07:30 08/03/17 07:30 08/03/17 07:30 Intake and Output: 08/03/17 08/03/17 06:59 18:59 Intake Total 500 Output Total 100 Balance 400 - Medications Medications: Current Medications Albuterol Sulfate (Albuterol 0.042% Inhal Ruby (1.25mg/3ml) Ud) 1.25 mg INH RQ6 PRN PRN Reason: Wheezing Last Admin: 08/01/17 14:02 Dose: 1.25 mg Ascorbic Acid (Vitamin C 250 Mg Tab) 250 mg PO DAILY [facility] Last Admin: 08/03/17 09:54 Dose: Not Given Aspirin (Aspirin Chewable) 81 mg PO DAILY [facility] Last Admin: 08/02/17 09:52 Dose: 81 mg Benzocaine/Menthol (Cepacol Sore Throat) 1 love MT Q2 PRN PRN Reason: Sore Throat Last Admin: 07/31/17 05:21 Dose: 1 love Calcium Acetate (Phoslo) 1,334 mg PO TIDCC [facility] Last Admin: 08/03/17 12:46 Dose: 1,334 mg Clopidogrel Bisulfate (Plavix) 75 mg PO DAILY [facility] Last Admin: 08/02/17 09:53 Dose: 75 mg Donepezil HCl (Aricept) 10 mg PO HS [facility] Last Admin: 08/02/17 21:44 Dose: 10 mg Epoetin Romel (Procrit) 10,000 unit IV MWF [facility] Last Admin: 08/01/17 16:44 Dose: 10,000 unit Ferrous Sulfate (Feosol) 325 mg PO Q12H [facility] Last Admin: 08/03/17 06:31 Dose: Not Given Heparin Sodium (Porcine) (Heparin) 5,000 units SC Q8 [facility] Last Admin: 08/02/17 13:57 Dose: 5,000 units Home Med (Fesoterodine Fumarate [Toviaz]) 8 mg PO DAILY [facility] Hydromorphone HCl (Dilaudid) 0.5 mg IVP Q4 PRN PRN Reason: Pain, severe (8-10) Last Admin: 08/03/17 12:50 Dose: 0.5 mg Metronidazole 250 mg/ (Miscellaneous) 50 mls @ 100 mls/hr IVPB Q8 [facility] Last Admin: 08/03/17 05:53 Dose: 100 mls/hr Tigecycline 50 mg/ Sodium (Chloride) 50 mls @ 100 mls/hr IVPB Q12H [facility] Last Admin: 08/03/17 06:31 Dose: 100 mls/hr Insulin Human Regular (Novolin R) 0 unit SC ACHS [facility] PRN Reason: Protocol Last Admin: 08/03/17 12:03 Dose: Not Given Latanoprost (Xalatan Opht) 0 ml OU HS [facility] Last Admin: 08/02/17 21:44 Dose: 0.02 ml Levothyroxine Sodium (Synthroid) 50 mcg PO DAILY@0630 [facility] Last Admin: 08/03/17 06:31 Dose: Not Given Metoprolol Succinate (Toprol Xl) 25 mg PO DAILY [facility] Last Admin: 08/03/17 09:42 Dose: 25 mg Ondansetron HCl (Zofran Inj) 4 mg IVP Q6 PRN PRN Reason: Nausea/Vomiting Last Admin: 08/03/17 12:46 Dose: 4 mg Pantoprazole Sodium (Protonix Ec Tab) 40 mg PO DAILY [facility] Last Admin: 08/03/17 09:54 Dose: Not Given Polyethylene Glycol (Miralax) 17 gm PO DAILY [facility] Last Admin: 08/03/17 09:54 Dose: Not Given Rosuvastatin Calcium (Crestor) 10 mg PO HS [facility] Last Admin: 08/02/17 21:44 Dose: 10 mg Saccharomyces Boulardii (Florastor) 250 mg PO BID [facility] Last Admin: 08/03/17 09:54 Dose: Not Given - Labs Labs: 08/03/17 09:50 08/03/17 09:50 PT 16.1 SECONDS (9.7-12.2) H 08/02/17 08:44 INR 1.4 08/02/17 08:44 APTT 32 SECONDS (21-34) 08/02/17 08:44 - Constitutional Appears: No Acute Distress - Head Exam Head Exam: ATRAUMATIC - Eye Exam Eye Exam: PERRL - ENT Exam ENT Exam: Mucous Membranes Dry - Respiratory Exam Respiratory Exam: Decreased Breath Sounds - Cardiovascular Exam Cardiovascular Exam: REGULAR RHYTHM - GI/Abdominal Exam GI & Abdominal Exam: Distended, Soft Assessment and Plan (1) JAY JAY (acute kidney injury) Status: Acute (2) CVA, old, cognitive deficits Status: Acute (3) Chronic kidney disease, stage III (moderate) Status: Acute (4) Headache Status: Acute (5) Hx of gastroesophageal reflux (GERD) Status: Acute
--- NOTE | 2017-08-03 16:54 | CP.PCM.PN ---
Subjective - Date & Time of Evaluation Date of Evaluation: 08/03/17 Time of Evaluation: 16:46 - Subjective Subjective: Surgery: Dr. Villanueva Pt seen and examined. Resting comfortably in bed. No acute events overnight. No Complaints. Objective - Vital Signs/Intake and Output Vital Signs (last 24 hours): Temp Pulse Resp BP Pulse Ox 97.8 F 85 18 138/79 100 08/03/17 15:52 08/03/17 15:52 08/03/17 15:52 08/03/17 15:52 08/03/17 15:52 Intake and Output: 08/03/17 08/03/17 06:59 18:59 Intake Total 500 145 Output Total 100 Balance 400 145 - Medications Medications: Current Medications Albuterol Sulfate (Albuterol 0.042% Inhal Ruby (1.25mg/3ml) Ud) 1.25 mg INH RQ6 PRN PRN Reason: Wheezing Last Admin: 08/01/17 14:02 Dose: 1.25 mg Ascorbic Acid (Vitamin C 250 Mg Tab) 250 mg PO DAILY [facility] Last Admin: 08/03/17 09:54 Dose: Not Given Aspirin (Aspirin Chewable) 81 mg PO DAILY [facility] Last Admin: 08/02/17 09:52 Dose: 81 mg Benzocaine/Menthol (Cepacol Sore Throat) 1 love MT Q2 PRN PRN Reason: Sore Throat Last Admin: 07/31/17 05:21 Dose: 1 love Calcium Acetate (Phoslo) 1,334 mg PO TIDCC [facility] Last Admin: 08/03/17 12:46 Dose: 1,334 mg Clopidogrel Bisulfate (Plavix) 75 mg PO DAILY [facility] Last Admin: 08/02/17 09:53 Dose: 75 mg Donepezil HCl (Aricept) 10 mg PO HS [facility] Last Admin: 08/02/17 21:44 Dose: 10 mg Epoetin Romel (Procrit) 10,000 unit IV MWF [facility] Last Admin: 08/01/17 16:44 Dose: 10,000 unit Ferrous Sulfate (Feosol) 325 mg PO Q12H [facility] Last Admin: 08/03/17 06:31 Dose: Not Given Heparin Sodium (Porcine) (Heparin) 5,000 units SC Q8 [facility] Last Admin: 08/02/17 13:57 Dose: 5,000 units Home Med (Fesoterodine Fumarate [Toviaz]) 8 mg PO DAILY [facility] Hydromorphone HCl (Dilaudid) 0.5 mg IVP Q4 PRN PRN Reason: Pain, severe (8-10) Last Admin: 08/03/17 12:50 Dose: 0.5 mg Metronidazole 250 mg/ (Miscellaneous) 50 mls @ 100 mls/hr IVPB Q8 [facility] Last Admin: 08/03/17 13:30 Dose: 100 mls/hr Tigecycline 50 mg/ Sodium (Chloride) 50 mls @ 100 mls/hr IVPB Q12H [facility] Last Admin: 08/03/17 06:31 Dose: 100 mls/hr Insulin Human Regular (Novolin R) 0 unit SC ACHS [facility] PRN Reason: Protocol Last Admin: 08/03/17 12:03 Dose: Not Given Latanoprost (Xalatan Opht) 0 ml OU HS [facility] Last Admin: 08/02/17 21:44 Dose: 0.02 ml Levothyroxine Sodium (Synthroid) 50 mcg PO DAILY@0630 [facility] Last Admin: 08/03/17 06:31 Dose: Not Given Metoprolol Succinate (Toprol Xl) 25 mg PO DAILY [facility] Last Admin: 08/03/17 09:42 Dose: 25 mg Ondansetron HCl (Zofran Inj) 4 mg IVP Q6 PRN PRN Reason: Nausea/Vomiting Last Admin: 08/03/17 12:46 Dose: 4 mg Pantoprazole Sodium (Protonix Ec Tab) 40 mg PO DAILY [facility] Last Admin: 08/03/17 09:54 Dose: Not Given Polyethylene Glycol (Miralax) 17 gm PO DAILY [facility] Last Admin: 08/03/17 09:54 Dose: Not Given Rosuvastatin Calcium (Crestor) 10 mg PO HS [facility] Last Admin: 08/02/17 21:44 Dose: 10 mg Saccharomyces Boulardii (Florastor) 250 mg PO BID [facility] Last Admin: 08/03/17 09:54 Dose: Not Given - Labs Labs: 08/03/17 09:50 08/03/17 09:50 PT 16.1 SECONDS (9.7-12.2) H 08/02/17 08:44 INR 1.4 08/02/17 08:44 APTT 32 SECONDS (21-34) 08/02/17 08:44 - Constitutional Appears: Non-toxic, No Acute Distress - Head Exam Head Exam: ATRAUMATIC, NORMOCEPHALIC - Eye Exam Eye Exam: EOMI - Neck Exam Neck Exam: Full ROM - Respiratory Exam Respiratory Exam: NORMAL BREATHING PATTERN. absent: Accessory Muscle Use, Respiratory Distress - GI/Abdominal Exam GI & Abdominal Exam: Soft. absent: Tenderness - Extremities Exam Extremities Exam: absent: Calf Tenderness, Pedal Edema - Neurological Exam Neurological Exam: Alert, Awake. absent: Oriented x3 Assessment and Plan - Assessment and Plan (Free Text) Assessment: 82M w. renal failure -vein mapping reviewed, pt has poor vasculature, not ideal for AVF -continue to use permacath -no further plans for surgery at this time -d/w attending Osbaldo PGY3
--- NOTE | 2017-08-03 21:06 | CP.PCM.CON ---
History of Present Illness - History of Present Illness History of Present Illness: 82 year old male with a history of DM, HTN, hypothyroid, CKD on HD, Alzheimers dementia, CVA, gluteal abscess, cholangitis with CBD stent presented for elective ERCP, complicated by perforation, respiratory failure, cardiac arrest, with thrombocytopenia, elevated PSA. The patient is not a good historian given dementia. Review of his blood work shows his platelet dropped to 89,000 from normal while on heparin. His heparin and plavix have been held. There is no overt evidence of bleeding or clotting. Past medical, surgical, family, social history cannot be obtained from the patient. Allergies: Per documentation NKA Review of systems cannot be obtained. Past Patient History - Infectious Disease Hx of Infectious Diseases: None - Tetanus Immunizations Tetanus Immunization: Unknown - Past Medical History & Family History Past Medical History?: Yes - Past Social History Smoking Status: Never Smoked Chewing Tobacco Use: No Cigar Use: No Alcohol: None Drugs: Denies Home Situation {Lives}: With Family - CARDIAC Hx Hypertension: Yes - PULMONARY Hx Respiratory Disorders: Yes Hx Pneumonia: Yes (KLEBSIELLA PNEUMONIAE) - NEUROLOGICAL HX Cerebrovascular Accident: Yes - HEENT Hx HEENT Problems: Yes Hx Cataracts: Yes (SURGERY) - RENAL Hx Chronic Kidney Disease: No - ENDOCRINE/METABOLIC Hx Diabetes Mellitus Type 2: Yes Hx Hypothyroidism: Yes - HEMATOLOGICAL/ONCOLOGICAL Hx Blood Disorders: No Hx Blood Transfusions: No - INTEGUMENTARY Hx Dermatological Problems: No - MUSCULOSKELETAL/RHEUMATOLOGICAL Hx Musculoskeletal Disorders: Yes Hx Arthritis: Yes (BACK, BL KNEE) Hx Back Pain: Yes Hx Falls: No Other/Comment: RIGHT HAND WEAK GRASP RESIDUAL FROM STROKE - GASTROINTESTINAL Hx Gastrointestinal Disorders: Yes (''STOMACH BACTERIA'') Hx Ulcer: Yes Other/Comment: CHOLEDOCHOLITHIASIS, CHOLANGITIS - GENITOURINARY/GYNECOLOGICAL Hx Genitourinary Disorders: No Hx Incontinence: Yes - PSYCHIATRIC Hx Psychophysiologic Disorder: No Hx Substance Use: No - SURGICAL HISTORY Hx Surgeries: Yes Hx Cataract Extraction: Yes Other/Comment: LEFT BEHIND EAR SURGERY FROM BLOOD CLOTS ,RIGHT HAND SURGERY - ANESTHESIA Hx Anesthesia: Yes Hx Anesthesia Reactions: No Hx Malignant Hyperthermia: No Meds Allergies/Adverse Reactions: Allergies Allergy/AdvReac Type Severity Reaction Status Date / Time No Known Allergies Allergy Verified 07/13/17 10:45 - Medications Medications: Current Medications Albuterol Sulfate (Albuterol 0.042% Inhal Ruby (1.25mg/3ml) Ud) 1.25 mg INH RQ6 PRN PRN Reason: Wheezing Last Admin: 08/01/17 14:02 Dose: 1.25 mg Ascorbic Acid (Vitamin C 250 Mg Tab) 250 mg PO DAILY [facility] Last Admin: 08/03/17 09:54 Dose: Not Given Aspirin (Aspirin Chewable) 81 mg PO DAILY [facility] Last Admin: 08/02/17 09:52 Dose: 81 mg Benzocaine/Menthol (Cepacol Sore Throat) 1 love MT Q2 PRN PRN Reason: Sore Throat Last Admin: 07/31/17 05:21 Dose: 1 love Calcium Acetate (Phoslo) 1,334 mg PO TIDCC [facility] Last Admin: 08/03/17 18:00 Dose: 1,334 mg Clopidogrel Bisulfate (Plavix) 75 mg PO DAILY [facility] Last Admin: 08/02/17 09:53 Dose: 75 mg Donepezil HCl (Aricept) 10 mg PO HS [facility] Last Admin: 08/02/17 21:44 Dose: 10 mg Epoetin Romel (Procrit) 10,000 unit IV MWF [facility] Last Admin: 08/01/17 16:44 Dose: 10,000 unit Ferrous Sulfate (Feosol) 325 mg PO Q12H [facility] Last Admin: 08/03/17 18:00 Dose: 325 mg Heparin Sodium (Porcine) (Heparin) 5,000 units SC Q8 [facility] Last Admin: 08/02/17 13:57 Dose: 5,000 units Home Med (Fesoterodine Fumarate [Toviaz]) 8 mg PO DAILY [facility] Hydromorphone HCl (Dilaudid) 0.5 mg IVP Q4 PRN PRN Reason: Pain, severe (8-10) Last Admin: 08/03/17 12:50 Dose: 0.5 mg Metronidazole 250 mg/ (Miscellaneous) 50 mls @ 100 mls/hr IVPB Q8 [facility] Last Admin: 08/03/17 13:30 Dose: 100 mls/hr Tigecycline 50 mg/ Sodium (Chloride) 50 mls @ 100 mls/hr IVPB Q12H [facility] Last Admin: 08/03/17 18:00 Dose: 100 mls/hr Insulin Human Regular (Novolin R) 0 unit SC ACHS [facility] PRN Reason: Protocol Last Admin: 08/03/17 18:02 Dose: 2 unit Latanoprost (Xalatan Opht) 0 ml OU HS [facility] Last Admin: 08/02/17 21:44 Dose: 0.02 ml Levothyroxine Sodium (Synthroid) 50 mcg PO DAILY@0630 [facility] Last Admin: 08/03/17 06:31 Dose: Not Given Metoprolol Succinate (Toprol Xl) 25 mg PO DAILY [facility] Last Admin: 08/03/17 09:42 Dose: 25 mg Ondansetron HCl (Zofran Inj) 4 mg IVP Q6 PRN PRN Reason: Nausea/Vomiting Last Admin: 08/03/17 12:46 Dose: 4 mg Pantoprazole Sodium (Protonix Ec Tab) 40 mg PO DAILY [facility] Last Admin: 08/03/17 09:54 Dose: Not Given Polyethylene Glycol (Miralax) 17 gm PO DAILY [facility] Last Admin: 08/03/17 09:54 Dose: Not Given Rosuvastatin Calcium (Crestor) 10 mg PO HS [facility] Last Admin: 08/02/17 21:44 Dose: 10 mg Saccharomyces Boulardii (Florastor) 250 mg PO BID [facility] Last Admin: 08/03/17 17:59 Dose: 250 mg Physical Exam - Head Exam Head Exam: ATRAUMATIC - Eye Exam Eye Exam: Normal appearance - ENT Exam ENT Exam: Mucous Membranes Dry - Respiratory Exam Respiratory Exam: NORMAL BREATHING PATTERN - Cardiovascular Exam Cardiovascular Exam: +S1, +S2 - GI/Abdominal Exam GI & Abdominal Exam: Normal Bowel Sounds - Neurological Exam Neurological exam: Altered - Psychiatric Exam Psychiatric exam: Flat Affect, Normal Mood - Skin Skin Exam: Warm Results - Vital Signs Recent Vital Signs: Last Vital Signs Temp 97.8 F 08/03/17 15:52 Pulse 77 08/03/17 16:00 Resp 18 08/03/17 15:52 BP 138/79 08/03/17 15:52 Pulse Ox 100 08/03/17 15:52 - Labs Result Diagrams: 08/04/17 08:13 08/04/17 08:13 Labs: Laboratory Results - last 24 hr 08/01/17 08/03/17 08/03/17 11:35 00:00 06:46 WBC RBC Hgb Hct MCV MCH MCHC RDW Plt Count MPV Neut % (Auto) Lymph % (Auto) [place] % (Auto) Eos % (Auto) Baso % (Auto) Neut # Lymph # [place] # Eos # Baso # Sodium Potassium Chloride Carbon Dioxide Anion Gap BUN Creatinine Est GFR ( Amer) Est GFR (Non-Af Amer) POC Glucose (mg/dL) 228 H 159 H 133 H Random Glucose Calcium 08/03/17 08/03/17 08/03/17 09:50 09:50 11:55 WBC 16.8 H RBC 3.26 L Hgb 9.1 L Hct 28.4 L MCV 87.0 MCH 27.9 MCHC 32.0 L RDW 16.9 H Plt Count 136 MPV 8.5 Neut % (Auto) 68.5 Lymph % (Auto) 17.8 L [place] % (Auto) 8.7 Eos % (Auto) 3.9 Baso % (Auto) 1.1 Neut # 11.5 H Lymph # 3.0 [place] # 1.5 H Eos # 0.7 Baso # 0.2 Sodium 135 Potassium 4.2 Chloride 102 Carbon Dioxide 25 Anion Gap 13 BUN 40 H Creatinine 2.4 H Est GFR ( Amer) 32 Est GFR (Non-Af Amer) 26 POC Glucose (mg/dL) 145 H Random Glucose 112 H Calcium 7.3 L 08/03/17 16:23 WBC RBC Hgb Hct MCV MCH MCHC RDW Plt Count MPV Neut % (Auto) Lymph % (Auto) [place] % (Auto) Eos % (Auto) Baso % (Auto) Neut # Lymph # [place] # Eos # Baso # Sodium Potassium Chloride Carbon Dioxide Anion Gap BUN Creatinine Est GFR ( Amer) Est GFR (Non-Af Amer) POC Glucose (mg/dL) 184 H Random Glucose Calcium Assessment & Plan (1) Thrombocytopenia Assessment and Plan: rule out HIT; heparin Ab and serotonin release assay sent heparin held okay to restart Plavix if plt > 50,000 Status: Acute (2) Anemia Assessment and Plan: anemia of chronic disease anemia of CKD; EPO per renal transfusion support PRN Status: Acute (3) Elevated PSA Assessment and Plan: recent rose repeat PSA as outpatient Status: Acute (4) Leukocytosis Assessment and Plan: on antibiotics Thank you for this interesting consult. Status: Acute
[2017-08-03] MEDS: Latanoprost 2.5 ml Opht Soln OU SCH (22:16)
[2017-08-04] MEDS: Levothyroxine 50 MCG TAB PO SCH (06:10)
[2017-08-04] MEDS: metroNIDAZOLE IV 500 mg/100 ml 250 MG in Premixed IV 1 EA IVPB SCH ×3 (06:31→21:39)
[2017-08-04] MEDS: (Novolin R) Insulin Human Regular 100 units/ml vial SC SCH ×4 (07:33→21:39)
[2017-08-04 08:23] LABS: BASO # 0.2 K/uL (0.0-0.2); BASO % 1.3 % (0.0-2.0); EOS # 0.4 K/uL (0.0-0.7); EOS % 3.7 % (0.0-4.0); HEMATOCRIT 26.7 % (35.0-51.0); LYMPH # 2.4 K/uL (1.0-4.3); LYMPH % 19.9 % (20.0-40.0); MEAN CELL VOLUME 87.4 fL (80.0-94.0); MEAN CORPUSCULAR HEMOGLOBIN 27.9 pg (27.0-31.0); MEAN CORPUSCULAR HGB CONC 31.9 g/dL (33.0-37.0); MEAN PLATELET VOLUME 8.7 fL (7.2-11.7); MONO # 1.2 K/uL (0.0-0.8); MONO % 10.3 % (0.0-10.0); NRBC % 0.1 % (0.0-2.0); RED CELL DISTRIBUTION WIDTH 16.8 % (11.5-14.5); WHITE BLOOD COUNT 12.1 K/uL (4.8-10.8)
--- NOTE | 2017-08-04 09:26 | CP.PCM.PN ---
Subjective - Date & Time of Evaluation Date of Evaluation: 08/04/17 Time of Evaluation: 07:00 - Subjective Subjective: Patient was seen and examined at bedside in the AM. Patient denies chest pain, shortness of breath, palpitations, nausea or vomiting. Per nurse the midline was not flushing in the morning. Objective - Vital Signs/Intake and Output Vital Signs (last 24 hours): Temp Pulse Resp BP Pulse Ox 98.3 F 74 20 143/76 99 08/03/17 23:40 08/03/17 23:40 08/03/17 23:40 08/03/17 23:40 08/03/17 23:40 - Medications Medications: Current Medications Albuterol Sulfate (Albuterol 0.042% Inhal Ruby (1.25mg/3ml) Ud) 1.25 mg INH RQ6 PRN PRN Reason: Wheezing Last Admin: 08/01/17 14:02 Dose: 1.25 mg Ascorbic Acid (Vitamin C 250 Mg Tab) 250 mg PO DAILY [facility] Last Admin: 08/03/17 09:54 Dose: Not Given Aspirin (Aspirin Chewable) 81 mg PO DAILY [facility] Last Admin: 08/02/17 09:52 Dose: 81 mg Benzocaine/Menthol (Cepacol Sore Throat) 1 love MT Q2 PRN PRN Reason: Sore Throat Last Admin: 07/31/17 05:21 Dose: 1 love Calcium Acetate (Phoslo) 1,334 mg PO TIDCC [facility] Last Admin: 08/04/17 08:38 Dose: 1,334 mg Clopidogrel Bisulfate (Plavix) 75 mg PO DAILY [facility] Last Admin: 08/02/17 09:53 Dose: 75 mg Donepezil HCl (Aricept) 10 mg PO HS [facility] Last Admin: 08/03/17 22:16 Dose: 10 mg Epoetin Romel (Procrit) 10,000 unit IV MWF [facility] Last Admin: 08/01/17 16:44 Dose: 10,000 unit Ferrous Sulfate (Feosol) 325 mg PO Q12H [facility] Last Admin: 08/04/17 06:10 Dose: 325 mg Heparin Sodium (Porcine) (Heparin) 5,000 units SC Q8 [facility] Last Admin: 08/02/17 13:57 Dose: 5,000 units Home Med (Fesoterodine Fumarate [Toviaz]) 8 mg PO DAILY [facility] Hydromorphone HCl (Dilaudid) 0.5 mg IVP Q4 PRN PRN Reason: Pain, severe (8-10) Last Admin: 08/03/17 12:50 Dose: 0.5 mg Metronidazole 250 mg/ (Miscellaneous) 50 mls @ 100 mls/hr IVPB Q8 [facility] Last Admin: 08/04/17 06:31 Dose: Not Given Tigecycline 50 mg/ Sodium (Chloride) 50 mls @ 100 mls/hr IVPB Q12H [facility] Last Admin: 08/03/17 18:00 Dose: 100 mls/hr Insulin Human Regular (Novolin R) 0 unit SC ACHS DARINEL PRN Reason: Protocol Last Admin: 08/04/17 07:33 Dose: Not Given Latanoprost (Xalatan Opht) 0 ml OU HS [facility] Last Admin: 08/03/17 22:16 Dose: 2.5 ml Levothyroxine Sodium (Synthroid) 50 mcg PO DAILY@0630 [facility] Last Admin: 08/04/17 06:10 Dose: 50 mcg Metoprolol Succinate (Toprol Xl) 25 mg PO DAILY [facility] Last Admin: 08/03/17 09:42 Dose: 25 mg Ondansetron HCl (Zofran Inj) 4 mg IVP Q6 PRN PRN Reason: Nausea/Vomiting Last Admin: 08/03/17 12:46 Dose: 4 mg Pantoprazole Sodium (Protonix Ec Tab) 40 mg PO DAILY [facility] Last Admin: 08/03/17 09:54 Dose: Not Given Polyethylene Glycol (Miralax) 17 gm PO DAILY [facility] Last Admin: 08/03/17 09:54 Dose: Not Given Rosuvastatin Calcium (Crestor) 10 mg PO HS [facility] Last Admin: 08/03/17 22:19 Dose: 10 mg Saccharomyces Boulardii (Florastor) 250 mg PO BID [facility] Last Admin: 08/03/17 17:59 Dose: 250 mg - Labs Labs: 08/04/17 08:13 08/03/17 09:50 PT 16.1 SECONDS (9.7-12.2) H 08/02/17 08:44 INR 1.4 08/02/17 08:44 APTT 32 SECONDS (21-34) 08/02/17 08:44 - Constitutional Appears: No Acute Distress - Head Exam Head Exam: ATRAUMATIC, NORMAL INSPECTION, NORMOCEPHALIC - Eye Exam Eye Exam: EOMI, Normal appearance - ENT Exam ENT Exam: Mucous Membranes Moist - Respiratory Exam Respiratory Exam: Clear to Ausculation Bilateral, NORMAL BREATHING PATTERN. absent: Rales, Rhonchi, Wheezes, Stridor - Cardiovascular Exam Cardiovascular Exam: REGULAR RHYTHM, RRR, +S1, +S2 - GI/Abdominal Exam GI & Abdominal Exam: Soft, Normal Bowel Sounds. absent: Tenderness - Extremities Exam Extremities Exam: Normal Inspection. absent: Pedal Edema, Tenderness - Neurological Exam Neurological Exam: Alert, Awake. absent: Oriented x3 (oriented to person and place ) - Psychiatric Exam Psychiatric exam: Normal Affect, Normal Mood - Skin Skin Exam: Dry, Intact, Normal Color, Warm Assessment and Plan - Assessment and Plan (Free Text) Assessment: 1.) Pulseless electrical activity on 07/20/17 - s/p permacath - Patient was intubated 07/20/17 and extubated 07/22/17 - Patient is now currently oriented to person and place 2.) Chest pain atypical Cardiac Consult: Dr. Chau --> help appreciated - ECHO 07/13/17: LVEF 60%; moderate concentric left ventricular hypertrophy; transmitral doppler flow pattern Grade I abnormal relaxation; Mitral regurgitation is trace. - Elevated troponin due to sepsis and afib 3.) Enterococcus faecium Bacteremia ID Consult: Dr. Langford --> help appreciated - Blood Culture: 07/17/17: Enterococcus Faecium (8:00) - Blood Culture: 07/20/17: No growth after 5 days - Medications * Flagyl/Tigecycline -Per Dr. Langford: Receive a total of 3 weeks after first negative blood cultures : Discontinue antibiotics 08/10/17 4.) ERCP Guidewire Perforation of Liver Capsule / Peripheral Bile Duct GI Dr. Damian Signed off - s/p ERCP with removal of stent and sphincterotomy with Dr. Damian Surgery Consult: Dr. Boyce - No surgical intervention - CT abdomen/pelvis 07/25/17 PO contrast: no acute abdominal or pelvic abnormality; Small right and moderate left pleural effusion. Fatty liver. Small amount of air in the central biliary radicles is likely post surgical in etiology. 5.) Atrial Fibrillation Cardiology Consult: Dr. Chau --> help appreciated - ECHO 07/13/17: LVEF 60%; moderate concentric left ventricular hypertrophy; transmitral doppler flow pattern Grade I abnormal relaxation; Mitral regurgitation is trace. - Repeat EKG (NSR) 07/21/17 * Toprol XL 25mg PO daily * Aspirin 81mg PO daily 6.) Bilateral Pneumonia - Chest X-Ray 07/29/17 - mild airspace disease still present, R sided has resolved - Urine Legionella Ag is negative - Urine Strep pneumoniae Ag: non detected - Mycoplasma IgM is 81 (negative) Ig.07 - Influenza A/B is negative Medications: * Flagyl 250mg IVPB Q8H (active since 07/18/17) * Tigecycline 50mg IV Q12h (active since 07/18/17) * Florastor 250mg PO BID 7.) CKD Stage III Nephro Consult: Dr. Oconnell --> help appreciated * Dialysis MWF * Epocrit 10,000 unit IV MWF Vascular Consult: Dr. Villanueva --> help appreciated - AV Fistula Thursday - cancelled due to poor vasculature 8.) History of CVA - CT Head 07/13/17 was negative for bleed or acute process * Aspirin 81mg PO daily * Plavix 75mg PO daily * Crestor 10mg POqHS 9.) Thrombocytopenia Hematology/Oncology: Dr. Paniagua --> help appreciated - Platelet 89 --> 152 - f/u HIT and KAITLYNN release assay 10.) Anemia possibly secondary to CKD * Ferrous Sulfate 325 mg PO daily * Epocrit 10,000 unit IV MWF 11.) Gluteal Abscess - Wound care 12.) History of Alzheimer's disease * Aricept 10 mg PO daily 13.) History of Hyperlipidemia * Lopid 600 mg PO BID * Crestor 10 mg PO HS 14.) History of HTN * Metoprolol XL 25 PO QD * Losartan 100 PO QD 15.) History of Diabetes - Ha1c: 8.3 * ISS Q6H * Accuchecks Q6H 16) History of Hypothyroidism - TSH: 0.80; T4: 1.05 * Levothyroxine 50 PO QD 17.) History of Overactive bladder * Festerodine 8 PO QD 18.) History of glaucoma * Xalatan ggt 19.) Malfunctioning Midline - PICC line access ordered for 08/04/17 20.) Prophylactic measure * Protonix 40 IV QD * Aspirin 81mg daily Disposition: Discharge to a subacute rehab Case discussed with Dr. Swetha Hayden PGY-1
[2017-08-04 09:29] LABS: ALB/GLOB RATIO 0.7 (1.0-2.1); BILIRUBIN,TOTAL 0.7 mg/dL (0.2-1.3); CALCIUM 7.3 mg/dl (8.6-10.4); MAGNESIUM 1.8 mg/dL (1.6-2.3); POTASSIUM 4.3 mmol/L (3.6-5.2); TOTAL PROTEIN 5.4 g/dL (6.3-8.3)
[2017-08-04] MEDS: POLYETHYLENE GLYCOL 3350 17 GM/Dose PACKET PO SCH (10:00)
[2017-08-04] MEDS: Pantoprazole 40 mg EC Tab PO SCH (10:00)
[2017-08-04] MEDS: Saccharomyces Boulardi 250 mg Cap PO SCH ×2 (10:00→18:11)
[2017-08-04] MEDS: Metoprolol Succinate 25 mg XL Tab PO SCH (10:00)
[2017-08-04] MEDS ORDERED: Epoetin Alfa 10,000 unit/ml Dialysis IV SCH (11:27)
--- NOTE | 2017-08-04 12:07 | CP.PCM.PN ---
Subjective - Date & Time of Evaluation Date of Evaluation: 08/04/17 Time of Evaluation: 12:05 - Subjective Subjective: seen and examined on hd estimated uf 1.2L bp stable pt c/o abdominal pain Objective - Vital Signs/Intake and Output Vital Signs (last 24 hours): Temp Pulse Resp BP Pulse Ox 98.2 F 83 20 131/62 96 08/04/17 10:00 08/04/17 10:00 08/04/17 10:00 08/04/17 11:00 08/04/17 10:00 - Medications Medications: Current Medications Albuterol Sulfate (Albuterol 0.042% Inhal Ruby (1.25mg/3ml) Ud) 1.25 mg INH RQ6 PRN PRN Reason: Wheezing Last Admin: 08/01/17 14:02 Dose: 1.25 mg Ascorbic Acid (Vitamin C 250 Mg Tab) 250 mg PO DAILY [facility] Last Admin: 08/03/17 09:54 Dose: Not Given Aspirin (Aspirin Chewable) 81 mg PO DAILY [facility] Last Admin: 08/02/17 09:52 Dose: 81 mg Benzocaine/Menthol (Cepacol Sore Throat) 1 love MT Q2 PRN PRN Reason: Sore Throat Last Admin: 07/31/17 05:21 Dose: 1 love Calcium Acetate (Phoslo) 1,334 mg PO TIDCC [facility] Last Admin: 08/04/17 08:38 Dose: 1,334 mg Clopidogrel Bisulfate (Plavix) 75 mg PO DAILY [facility] Last Admin: 08/02/17 09:53 Dose: 75 mg Donepezil HCl (Aricept) 10 mg PO HS [facility] Last Admin: 08/03/17 22:16 Dose: 10 mg Epoetin Romel (Procrit) 10,000 unit IV TTS [facility] Ferrous Sulfate (Feosol) 325 mg PO Q12H [facility] Last Admin: 08/04/17 06:10 Dose: 325 mg Heparin Sodium (Porcine) (Heparin) 5,000 units SC Q8 [facility] Last Admin: 08/02/17 13:57 Dose: 5,000 units Heparin Sodium (Porcine) (Heparin) 3,700 units IVP TTS [facility] Home Med (Fesoterodine Fumarate [Toviaz]) 8 mg PO DAILY [facility] Hydromorphone HCl (Dilaudid) 0.5 mg IVP Q4 PRN PRN Reason: Pain, severe (8-10) Last Admin: 08/03/17 12:50 Dose: 0.5 mg Metronidazole 250 mg/ (Miscellaneous) 50 mls @ 100 mls/hr IVPB Q8 [facility] Last Admin: 08/04/17 06:31 Dose: Not Given Tigecycline 50 mg/ Sodium (Chloride) 50 mls @ 100 mls/hr IVPB Q12H [facility] Last Admin: 08/03/17 18:00 Dose: 100 mls/hr Insulin Human Regular (Novolin R) 0 unit SC ACHS DARINEL PRN Reason: Protocol Last Admin: 08/04/17 07:33 Dose: Not Given Latanoprost (Xalatan Opht) 0 ml OU HS [facility] Last Admin: 08/03/17 22:16 Dose: 2.5 ml Levothyroxine Sodium (Synthroid) 50 mcg PO DAILY@0630 [facility] Last Admin: 08/04/17 06:10 Dose: 50 mcg Metoprolol Succinate (Toprol Xl) 25 mg PO DAILY [facility] Last Admin: 08/03/17 09:42 Dose: 25 mg Ondansetron HCl (Zofran Inj) 4 mg IVP Q6 PRN PRN Reason: Nausea/Vomiting Last Admin: 08/03/17 12:46 Dose: 4 mg Pantoprazole Sodium (Protonix Ec Tab) 40 mg PO DAILY [facility] Last Admin: 08/03/17 09:54 Dose: Not Given Polyethylene Glycol (Miralax) 17 gm PO DAILY [facility] Last Admin: 08/03/17 09:54 Dose: Not Given Rosuvastatin Calcium (Crestor) 10 mg PO HS [facility] Last Admin: 08/03/17 22:19 Dose: 10 mg Saccharomyces Boulardii (Florastor) 250 mg PO BID [facility] Last Admin: 08/03/17 17:59 Dose: 250 mg - Labs Labs: 08/04/17 08:13 08/04/17 08:13 PT 16.1 SECONDS (9.7-12.2) H 08/02/17 08:44 INR 1.4 08/02/17 08:44 APTT 32 SECONDS (21-34) 08/02/17 08:44 - Constitutional Appears: Non-toxic, No Acute Distress, Chronically Ill - Head Exam Head Exam: NORMAL INSPECTION - Eye Exam Eye Exam: Normal appearance - ENT Exam ENT Exam: Mucous Membranes Moist - Neck Exam Neck Exam: Normal Inspection - Respiratory Exam Respiratory Exam: Decreased Breath Sounds, NORMAL BREATHING PATTERN - Cardiovascular Exam Cardiovascular Exam: REGULAR RHYTHM, RRR - GI/Abdominal Exam GI & Abdominal Exam: Distended, Soft - Extremities Exam Extremities Exam: Normal Inspection - Back Exam Back Exam: NORMAL INSPECTION - Skin Skin Exam: Dry, Warm Assessment and Plan (1) JAY JAY (acute kidney injury) Status: Acute (2) CVA, old, cognitive deficits Status: Acute (3) Hyponatremia with excess extracellular fluid volume Status: Resolved (4) AD (Alzheimer's disease) Status: Acute - Assessment and Plan (Free Text) Assessment: maintain hd tts bp acceptable philip w/ hd
[2017-08-04] MEDS: Epoetin Alfa 10,000 unit/ml Dialysis IV SCH (13:12)
--- NOTE | 2017-08-04 14:03 | CP.PCM.PN ---
Subjective - Date & Time of Evaluation Date of Evaluation: 08/04/17 Time of Evaluation: 12:15 - Subjective Subjective: Appears comfortable Objective - Vital Signs/Intake and Output Vital Signs (last 24 hours): Temp Pulse Resp BP Pulse Ox 97.3 F L 97 H 16 87/43 L 98 08/04/17 13:15 08/04/17 13:15 08/04/17 13:15 08/04/17 13:15 08/04/17 13:15 - Medications Medications: Current Medications Albuterol Sulfate (Albuterol 0.042% Inhal Ruby (1.25mg/3ml) Ud) 1.25 mg INH RQ6 PRN PRN Reason: Wheezing Last Admin: 08/01/17 14:02 Dose: 1.25 mg Alteplase, Recombinant (Cathflo 2 Mg Inj) 2 mg IV DAILY PRN PRN Reason: mid line management Ascorbic Acid (Vitamin C 250 Mg Tab) 250 mg PO DAILY [facility] Last Admin: 08/04/17 10:00 Dose: Not Given Aspirin (Aspirin Chewable) 81 mg PO DAILY [facility] Last Admin: 08/04/17 10:00 Dose: Not Given Benzocaine/Menthol (Cepacol Sore Throat) 1 love MT Q2 PRN PRN Reason: Sore Throat Last Admin: 07/31/17 05:21 Dose: 1 love Calcium Acetate (Phoslo) 1,334 mg PO TIDCC [facility] Last Admin: 08/04/17 08:38 Dose: 1,334 mg Clopidogrel Bisulfate (Plavix) 75 mg PO DAILY [facility] Last Admin: 08/02/17 09:53 Dose: 75 mg Donepezil HCl (Aricept) 10 mg PO HS [facility] Last Admin: 08/03/17 22:16 Dose: 10 mg Epoetin Romel (Procrit) 10,000 unit IV TTS [facility] Last Admin: 08/04/17 13:12 Dose: 10,000 unit Ferrous Sulfate (Feosol) 325 mg PO Q12H [facility] Last Admin: 08/04/17 06:10 Dose: 325 mg Heparin Sodium (Porcine) (Heparin) 3,700 units IVP TTS [facility] Last Admin: 08/04/17 12:48 Dose: 3,700 units Home Med (Fesoterodine Fumarate [Toviaz]) 8 mg PO DAILY [facility] Hydromorphone HCl (Dilaudid) 0.5 mg IVP Q4 PRN PRN Reason: Pain, severe (8-10) Last Admin: 08/03/17 12:50 Dose: 0.5 mg Metronidazole 250 mg/ (Miscellaneous) 50 mls @ 100 mls/hr IVPB Q8 [facility] Last Admin: 08/04/17 06:31 Dose: Not Given Tigecycline 50 mg/ Sodium (Chloride) 50 mls @ 100 mls/hr IVPB Q12H [facility] Last Admin: 08/03/17 18:00 Dose: 100 mls/hr Insulin Human Regular (Novolin R) 0 unit SC ACHS DARINEL PRN Reason: Protocol Last Admin: 08/04/17 11:30 Dose: Not Given Latanoprost (Xalatan Opht) 0 ml OU HS [facility] Last Admin: 08/03/17 22:16 Dose: 2.5 ml Levothyroxine Sodium (Synthroid) 50 mcg PO DAILY@0630 [facility] Last Admin: 08/04/17 06:10 Dose: 50 mcg Metoprolol Succinate (Toprol Xl) 25 mg PO DAILY [facility] Last Admin: 08/04/17 10:00 Dose: Not Given Ondansetron HCl (Zofran Inj) 4 mg IVP Q6 PRN PRN Reason: Nausea/Vomiting Last Admin: 08/03/17 12:46 Dose: 4 mg Pantoprazole Sodium (Protonix Ec Tab) 40 mg PO DAILY [facility] Last Admin: 08/04/17 10:00 Dose: Not Given Polyethylene Glycol (Miralax) 17 gm PO DAILY [facility] Last Admin: 08/04/17 10:00 Dose: Not Given Rosuvastatin Calcium (Crestor) 10 mg PO HS [facility] Last Admin: 08/03/17 22:19 Dose: 10 mg Saccharomyces Boulardii (Florastor) 250 mg PO BID [facility] Last Admin: 08/04/17 10:00 Dose: Not Given - Labs Labs: 08/04/17 08:13 08/04/17 08:13 PT 16.1 SECONDS (9.7-12.2) H 08/02/17 08:44 INR 1.4 08/02/17 08:44 APTT 32 SECONDS (21-34) 08/02/17 08:44 - Head Exam Head Exam: ATRAUMATIC - Eye Exam Eye Exam: Normal appearance - ENT Exam ENT Exam: Mucous Membranes Dry - Respiratory Exam Respiratory Exam: NORMAL BREATHING PATTERN - Cardiovascular Exam Cardiovascular Exam: +S1, +S2 - GI/Abdominal Exam GI & Abdominal Exam: Normal Bowel Sounds Assessment and Plan (1) Thrombocytopenia Assessment & Plan: improving heparin 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
[2017-08-04] MEDS ORDERED: Oxycodone/Acetaminophen 5/325 mg Tab PO PRN (16:32)
[2017-08-04] MEDS: Latanoprost 2.5 ml Opht Soln OU SCH (21:40)
[2017-08-05] MEDS: Levothyroxine 50 MCG TAB PO SCH (06:04)
[2017-08-05] MEDS: metroNIDAZOLE IV 500 mg/100 ml 250 MG in Premixed IV 1 EA IVPB SCH (06:07)
--- NOTE | 2017-08-05 06:54 | CP.PCM.PN ---
<Amairani Hayden - Last Filed: 08/05/17 12:51> Subjective - Date & Time of Evaluation Date of Evaluation: 08/05/17 Time of Evaluation: 07:00 - Subjective Subjective: Patient was seen and examined at bedside in the AM. Patient states he knows he is in the hospital but does not know what year it is or who the president is. Patient denies difficulty breathing, chest pain, abdominal pain, nausea or vomiting. Per nurse no acute events overnight. Objective - Vital Signs/Intake and Output Vital Signs (last 24 hours): Temp Pulse Resp BP Pulse Ox 98.6 F 87 20 114/66 98 08/04/17 23:40 08/05/17 00:15 08/04/17 23:40 08/04/17 23:40 08/04/17 23:40 Intake and Output: 08/04/17 08/05/17 18:59 06:59 Intake Total 240 Balance 240 - Medications Medications: Current Medications Albuterol Sulfate (Albuterol 0.042% Inhal Ruby (1.25mg/3ml) Ud) 1.25 mg INH RQ6 PRN PRN Reason: Wheezing Last Admin: 08/01/17 14:02 Dose: 1.25 mg Alteplase, Recombinant (Cathflo 2 Mg Inj) 2 mg IV DAILY PRN PRN Reason: mid line management Ascorbic Acid (Vitamin C 250 Mg Tab) 250 mg PO DAILY [facility] Last Admin: 08/04/17 10:00 Dose: Not Given Aspirin (Aspirin Chewable) 81 mg PO DAILY [facility] Last Admin: 08/04/17 10:00 Dose: Not Given Benzocaine/Menthol (Cepacol Sore Throat) 1 love MT Q2 PRN PRN Reason: Sore Throat Last Admin: 07/31/17 05:21 Dose: 1 love Calcium Acetate (Phoslo) 1,334 mg PO TIDCC [facility] Last Admin: 08/04/17 18:11 Dose: 1,334 mg Clopidogrel Bisulfate (Plavix) 75 mg PO DAILY [facility] Last Admin: 08/02/17 09:53 Dose: 75 mg Donepezil HCl (Aricept) 10 mg PO HS [facility] Last Admin: 08/04/17 21:38 Dose: 10 mg Epoetin Romel (Procrit) 10,000 unit IV TTS [facility] Last Admin: 08/04/17 13:12 Dose: 10,000 unit Ferrous Sulfate (Feosol) 325 mg PO Q12H [facility] Last Admin: 08/05/17 06:04 Dose: 325 mg Heparin Sodium (Porcine) (Heparin) 3,700 units IVP TTS [facility] Last Admin: 08/04/17 12:48 Dose: 3,700 units Home Med (Fesoterodine Fumarate [Toviaz]) 8 mg PO DAILY [facility] Hydromorphone HCl (Dilaudid) 0.5 mg IVP Q4 PRN PRN Reason: Pain, severe (8-10) Last Admin: 08/03/17 12:50 Dose: 0.5 mg Metronidazole 250 mg/ (Miscellaneous) 50 mls @ 100 mls/hr IVPB Q8 [facility] Last Admin: 08/05/17 06:07 Dose: Not Given Tigecycline 50 mg/ Sodium (Chloride) 50 mls @ 100 mls/hr IVPB Q12H [facility] Last Admin: 08/05/17 06:07 Dose: Not Given Insulin Human Regular (Novolin R) 0 unit SC ACHS [facility] PRN Reason: Protocol Last Admin: 08/04/17 21:39 Dose: Not Given Latanoprost (Xalatan Opht) 0 ml OU HS [facility] Last Admin: 08/04/17 21:40 Dose: 2.5 ml Levothyroxine Sodium (Synthroid) 50 mcg PO DAILY@0630 [facility] Last Admin: 08/05/17 06:04 Dose: 50 mcg Metoprolol Succinate (Toprol Xl) 25 mg PO DAILY [facility] Last Admin: 08/04/17 10:00 Dose: Not Given Ondansetron HCl (Zofran Inj) 4 mg IVP Q6 PRN PRN Reason: Nausea/Vomiting Last Admin: 08/03/17 12:46 Dose: 4 mg Oxycodone/Acetaminophen (Percocet 5/325 Mg Tab) 2 tab PO Q4H PRN PRN Reason: Pain, moderate (4-7) Stop: 08/07/17 16:33 Pantoprazole Sodium (Protonix Ec Tab) 40 mg PO DAILY [facility] Last Admin: 08/04/17 10:00 Dose: Not Given Polyethylene Glycol (Miralax) 17 gm PO DAILY [facility] Last Admin: 08/04/17 10:00 Dose: Not Given Rosuvastatin Calcium (Crestor) 10 mg PO HS [facility] Last Admin: 08/04/17 21:38 Dose: 10 mg Saccharomyces Boulardii (Florastor) 250 mg PO BID [facility] Last Admin: 08/04/17 18:11 Dose: 250 mg - Labs Labs: 08/04/17 08:13 08/04/17 08:13 PT 16.1 SECONDS (9.7-12.2) H 08/02/17 08:44 INR 1.4 08/02/17 08:44 APTT 32 SECONDS (21-34) 08/02/17 08:44 - Constitutional Appears: No Acute Distress - Head Exam Head Exam: ATRAUMATIC, NORMAL INSPECTION, NORMOCEPHALIC - Eye Exam Eye Exam: EOMI, Normal appearance - ENT Exam ENT Exam: Mucous Membranes Moist - Respiratory Exam Respiratory Exam: Clear to Ausculation Bilateral, NORMAL BREATHING PATTERN. absent: Rales, Rhonchi, Wheezes, Stridor - Cardiovascular Exam Cardiovascular Exam: REGULAR RHYTHM, RRR, +S1, +S2 - GI/Abdominal Exam GI & Abdominal Exam: Soft, Normal Bowel Sounds. absent: Tenderness - Extremities Exam Extremities Exam: Normal Inspection. absent: Pedal Edema, Tenderness - Neurological Exam Neurological Exam: Alert, Awake. absent: Oriented x3 - Psychiatric Exam Psychiatric exam: Normal Affect, Normal Mood - Skin Skin Exam: Normal Color, Warm Assessment and Plan - Assessment and Plan (Free Text) Assessment: 1.) Pulseless electrical activity on 07/20/17 - s/p permacath - Patient was intubated 07/20/17 and extubated 07/22/17 - Patient is now currently oriented to person and place 2.) Chest pain atypical Cardiac Consult: Dr. Chau --> help appreciated - ECHO 07/13/17: LVEF 60%; moderate concentric left ventricular hypertrophy; transmitral doppler flow pattern Grade I abnormal relaxation; Mitral regurgitation is trace. - Elevated troponin due to sepsis and afib 3.) Enterococcus faecium Bacteremia ID Consult: Dr. Langford --> help appreciated - Blood Culture: 07/17/17: Enterococcus Faecium (8:00) - Blood Culture: 07/20/17: No growth after 5 days - Medications * Flagyl/Tigecycline -Per Dr. Langford: Receive a total of 3 weeks after first negative blood cultures : Discontinue antibiotics 08/10/17 4.) ERCP Guidewire Perforation of Liver Capsule / Peripheral Bile Duct GI Dr. Damian Signed off - s/p ERCP with removal of stent and sphincterotomy with Dr. Damian Surgery Consult: Dr. Boyce - No surgical intervention - CT abdomen/pelvis 07/25/17 PO contrast: no acute abdominal or pelvic abnormality; Small right and moderate left pleural effusion. Fatty liver. Small amount of air in the central biliary radicles is likely post surgical in etiology. 5.) Atrial Fibrillation Cardiology Consult: Dr. Chau --> help appreciated - ECHO 07/13/17: LVEF 60%; moderate concentric left ventricular hypertrophy; transmitral doppler flow pattern Grade I abnormal relaxation; Mitral regurgitation is trace. - Repeat EKG (NSR) 07/21/17 * Toprol XL 25mg PO daily * Aspirin 81mg PO daily 6.) Bilateral Pneumonia - Chest X-Ray 07/29/17 - mild airspace disease still present, R sided has resolved - Urine Legionella Ag is negative - Urine Strep pneumoniae Ag: non detected - Mycoplasma IgM is 81 (negative) Ig.07 - Influenza A/B is negative Medications: * Flagyl 250mg IVPB Q8H (active since 07/18/17) * Tigecycline 50mg IV Q12h (active since 07/18/17) * Florastor 250mg PO BID 7.) CKD Stage III Nephro Consult: Dr. Oconnell --> help appreciated * Dialysis MWF * Epocrit 10,000 unit IV MWF Vascular Consult: Dr. Villanueva --> help appreciated - AV Fistula Thursday - cancelled due to poor vasculature 8.) History of CVA - CT Head 07/13/17 was negative for bleed or acute process * Aspirin 81mg PO daily * Plavix 75mg PO daily * Crestor 10mg POqHS 9.) Thrombocytopenia Hematology/Oncology: Dr. Paniagua --> help appreciated - Platelet 89 --> 152 - f/u HIT and KAITLYNN release assay 10.) Anemia possibly secondary to CKD * Ferrous Sulfate 325 mg PO daily * Epocrit 10,000 unit IV MWF 11.) Gluteal Abscess - Wound care 12.) History of Alzheimer's disease * Aricept 10 mg PO daily 13.) History of Hyperlipidemia * Lopid 600 mg PO BID * Crestor 10 mg PO HS 14.) History of HTN * Metoprolol XL 25 PO QD * Losartan 100 PO QD 15.) History of Diabetes - Ha1c: 8.3 * ISS Q6H * Accuchecks Q6H 16) History of Hypothyroidism - TSH: 0.80; T4: 1.05 * Levothyroxine 50 PO QD 17.) History of Overactive bladder * Festerodine 8 PO QD 18.) History of glaucoma * Xalatan ggt 19.) Malfunctioning Midline - resolved - Midline access to be placed 08/05/17 20.) Prophylactic measure * Protonix 40 IV QD * Aspirin 81mg daily Disposition: Discharge to a subacute rehab Case discussed with Dr. Bernarda Hayden PGY-1 <Gladys Menchaca V - Last Filed: 08/05/17 17:32> Objective - Vital Signs/Intake and Output Vital Signs (last 24 hours): Temp Pulse Resp BP Pulse Ox 97.8 F 79 18 112/67 98 08/05/17 07:20 08/05/17 15:29 08/05/17 07:20 08/05/17 07:20 08/05/17 07:20 Intake and Output: 08/05/17 08/05/17 06:59 18:59 Intake Total 240 300 Balance 240 300 - Medications Medications: Current Medications Albuterol Sulfate (Albuterol 0.042% Inhal Ruby (1.25mg/3ml) Ud) 1.25 mg INH RQ6 PRN PRN Reason: Wheezing Last Admin: 08/01/17 14:02 Dose: 1.25 mg Ascorbic Acid (Vitamin C 250 Mg Tab) 250 mg PO DAILY [facility] Last Admin: 08/05/17 10:44 Dose: 250 mg Aspirin (Aspirin Chewable) 81 mg PO DAILY [facility] Last Admin: 08/05/17 10:44 Dose: 81 mg Benzocaine/Menthol (Cepacol Sore Throat) 1 love MT Q2 PRN PRN Reason: Sore Throat Last Admin: 07/31/17 05:21 Dose: 1 love Calcium Acetate (Phoslo) 1,334 mg PO TIDCC [facility] Last Admin: 08/05/17 13:02 Dose: 1,334 mg Clopidogrel Bisulfate (Plavix) 75 mg PO DAILY [facility] Last Admin: 08/05/17 10:44 Dose: 75 mg Donepezil HCl (Aricept) 10 mg PO HS [facility] Last Admin: 08/04/17 21:38 Dose: 10 mg Epoetin Romle (Procrit) 10,000 unit IV TTS [facility] Last Admin: 08/04/17 13:12 Dose: 10,000 unit Ferrous Sulfate (Feosol) 325 mg PO Q12H [facility] Last Admin: 08/05/17 06:04 Dose: 325 mg Heparin Sodium (Porcine) (Heparin) 3,700 units IVP TTS [facility] Last Admin: 08/04/17 12:48 Dose: 3,700 units Home Med (Fesoterodine Fumarate [Toviaz]) 8 mg PO DAILY [facility] Hydromorphone HCl (Dilaudid) 0.5 mg IVP Q4 PRN PRN Reason: Pain, severe (8-10) Last Admin: 08/03/17 12:50 Dose: 0.5 mg Tigecycline 50 mg/ Sodium (Chloride) 50 mls @ 100 mls/hr IVPB Q12H [facility] Last Admin: 08/05/17 06:07 Dose: Not Given Insulin Human Regular (Novolin R) 0 unit SC ACHS [facility] PRN Reason: Protocol Last Admin: 08/05/17 13:03 Dose: 4 unit Latanoprost (Xalatan Opht) 0 ml OU HS [facility] Last Admin: 08/04/17 21:40 Dose: 2.5 ml Levothyroxine Sodium (Synthroid) 50 mcg PO DAILY@0630 [facility] Last Admin: 08/05/17 06:04 Dose: 50 mcg Metoprolol Succinate (Toprol Xl) 25 mg PO DAILY [facility] Last Admin: 08/05/17 10:44 Dose: 25 mg Ondansetron HCl (Zofran Inj) 4 mg IVP Q6 PRN PRN Reason: Nausea/Vomiting Last Admin: 08/03/17 12:46 Dose: 4 mg Oxycodone/Acetaminophen (Percocet 5/325 Mg Tab) 2 tab PO Q4H PRN PRN Reason: Pain, moderate (4-7) Stop: 08/07/17 16:33 Pantoprazole Sodium (Protonix Ec Tab) 40 mg PO DAILY [facility] Last Admin: 08/05/17 10:44 Dose: 40 mg Polyethylene Glycol (Miralax) 17 gm PO DAILY [facility] Last Admin: 08/05/17 10:45 Dose: Not Given Rosuvastatin Calcium (Crestor) 10 mg PO HS [facility] Last Admin: 08/04/17 21:38 Dose: 10 mg Saccharomyces Boulardii (Florastor) 250 mg PO BID [facility] Last Admin: 08/05/17 10:44 Dose: 250 mg - Labs Labs: 08/05/17 06:42 08/05/17 06:42 PT 16.1 SECONDS (9.7-12.2) H 08/02/17 08:44 INR 1.4 08/02/17 08:44 APTT 32 SECONDS (21-34) 08/02/17 08:44 Attending/Attestation - Attestation I have personally seen and examined this patient.: Yes I have fully participated in the care of the patient.: Yes I have reviewed all pertinent clinical information, including history, physical exam and plan: Yes Notes (Text): Patient seen, examined and case discussed with day-time resident. Patient seen at bedside. Patient in no acute distress. No family present at present. Unable to ROS given patient's dementia. Patient recommended to replace midline given they are unable to get blood return and is currently on IV abx. PICC line nurse assessed patient. Per ID, patient to complete IV abx after 08/07/17. White count has normalized. Afebrile. Patient's PMD, Dr Sullivan contacted by the resident and updated in regards to patient's status. Patient's platelets slightly low. Off heparin dvt. Pending HIT and KAITLYNN assays. Assessment/Plan (1) Cardiac Arrest PEA on 07/20/17 Assessment and Plan: * Status post-procedure; patient went into PEA on 07/20 ROSC returned; intubated 07/20/17-[id number] * Chest xray (07/22/17): moderate left pleural effusion with consolidative opacification in the left mid to lower lung zone. trace right pleural effusion with adjacent right basilar consolidation. cardiomeglay. calcification at the aortic knob * 07/29; patient is awake, alert, eating food at bedside; PT note recommending patient to subacute rehab * 07/30: same as above; discussed with case management to setup patient for subacute rehab and dialysis placement post hospitalization Status: Stable (2) Chest pain Assessment and Plan: * Patient with atypical chest pain history * Cardio Dr. Chau does not feel that this is cardiac related * PEA on 07/21 * Per cardio note: patient does not appear to have CHF, will trend troponin * Discussed with cardio; no amiodarone needed * TSH, Free T4 are normal * ECHO 07/13/17: LV EF is WNL, moderate concentric LVH, Grade I abnormal relaxation pattern Status: Stable (3) Cholangitis--Resolved ERCP Guidewire Perforation of Liver Capsule vs Peripheral Bile Duct Assessment and Plan: * GI (Dr. Damian) on board-->help appreciated * General surgery (Dr. Boyce) on board-->help appreciated * s/p ERCP with removal of stent and sphincterotomy with Dr. Damian 07/13/17 * CXR 07/13/17 does not show air under diaphragm. * Chest CT 07/13/17 shows pneumobilia as well as possible free air beneath Right Hemidiaphragm within Paraesophagel soft tissues. * CT Abdomen/Pelvis 07/13/17 shows gas fluid and stranding in the subcapsular and extracapsular area around Left Lobe Liver. * CT Abdomen/Pelvis on 07/14/17 showed gas and fluid around left lobe liver and along inferior vena cava that is unchanged, no evidence of extravasation of oral contrast from stomach or duodenem. * Abdomen X Ray 07/16/17 showed NO obstruction. * CT Abdomen/Pelvis w/o contrast 07/19/17: Fluid re-identified, which appears similar in size and likely subcapsular in location. No nathan currently evident with in the collection, Small pneumobila. Moderate bilateral pleural effusions and associated consolidations. Small abomdinla ascites. Small pelvic free fluid. Thicken walled under distended urinary bladder which contains air, Pacheco catheter is present * Ct abdomen/pelvis 07/25/17 PO contrast: no acute abdominal or pelvic abnormality; Small right and moderate left pleural effusion. Fatty liver. Small amount of air in the central biliary radicles is likely post surgical in etiology. * GI Dr. Damian spoke with IR 07/15/17 and area is NOT amenable to percutaneous drainage. * GI has signed off as of 07/28/17; No further planned GI intervention. Repeat CT Abdomen 07/25: fluid collection resolved * General surgery has signed off 07/27/17. No further planned intervention from Surgery * 07/30: recommended for 3 weeks of IV antibiotic as minimum and follow CT for resolution * 08/02: white count uptrending; patient recultured; f/u blood, urine and procalcitonin * 08/05: normalized; to finish IV abx on Status: Stable (4) Enterococcus faecium Bacteremia * Infectious Disease (Dr. Langford) on the board * Started on Tigecycline 50 mg IV Q12H after 100 mg initial infusion (07/17/17) * Discontinued Meropenem, Ciprofloxicin, and Vancomycin (07/17/17) * 07/14/17: Enterococcus Faecium X2 * Blood Culture: 07/17/17: No growth after 5 days (8:00) * Blood Culture: 07/17/17: Enterococcus Faecium (8:00) * Blood Culture: 07/20/17: No growth after 5 days * Blood culture: 08/02/17: No growth after 3 days X2 * Flagyl 250mg IVPB Q8H (active since 07/18/17) * Tigecycline 50mg IV Q12h (active since 07/18/17) * Per ID to finish last dose this August 06 * Florastor 250mg PO BID * 07/30: Per ID, recommended for 3 week minimum of IV antibiotic * 08/02: Patient recultured given rise in white count. * 08/05: normalized; to finish IV abx on Status: Acute (5). Atrial Fibrillation/Elevated Troponin * Cardiology (Dr. Chau) on board-->help appreciated * The Atrial Fibrillation is likely secondary to the increased sympathetic tone from the Sepsis and the elevated Troponin likely secondary to the Atrial Fibrillation * Repeat EKG (NSR) 07/21/17 * Restart Toprol XL 25mg PO daily (patient was off beta-elkin prior secondary to cardiac arrest on 07/20/17) * Resume Aspirin 81mg PO daily Status: Acute (6) Bilateral Pneumonia * CT Abdomen/Pelvis 07/13/17 showed bibasilar lingular and right middle lobe mild nonspecific infiltrates consistent with atelectasis/pneumonia * As patient was admitted to hospital within the last month (for Left Buttock Abscess) and has been on antibiotics, this is likely Health Care Associated Pneumonia with increased risk for Multidrug Resistence therefore he was treated with the following: * Meropenem 500 mg IV Q6H (07/14/17 through 07/17/17), Ciprofloxacin 400 mg IV Q12H (07/14/17 through 07/16/17),Vancomycin 1 gm IV Q24H (07/14/17 through ) and then patient started on Tigecycline as mentioned above * CT Abdomen/Pelvis w/o contrast 07/19/17: Fluid re-identified, which appears similar in size and likely subcapsular in location. No nathan currently evident with in the collection, Small pneumobila. Moderate bilateral pleural effusions and associated consolidations. Small abomdinla ascites. Small pelvic free fluid. Thicken walled under distended urinary bladder which contains air, Pacheco catheter is present * Chest xray (07/22/17): moderate left pleural effusion with consolidative opacification in the left mid to lower lung zone. trace right pleural effusion with adjacent right basilar consolidation. cardiomeglay. calcification at the aortic knob * Chest xray (07/23/17): interval removal of endotracheal and BG tube, right central venous catheter extending to the right SVC, worsening now near complete opacification of the left hemithorax with associated large left pleural effusion. Worsening prominent consolidative changes at the right lung base. Cardiomegaly. Calcification at aortic knob. Degenerative changes in the spine and shoulders. prominently dilated/distended loops of bowel in the upper abdomen * Chest xray (07/29): bilateral interval improvement in right basilar limited patchy density and mild left pleural effusion with signficiant residual noted at the left base. Left basilar atelectasis infiltrate remains posterior to the left heart. No pulmonary vascular derangement. Continued clinical and radiographic monitor advised. * Urine Legionella Ag is negative * Urine Strep pneumoniae Ag: non detected * Mycoplasma IgM is 81 (negative) Ig.07 * Influenza A/B is negative * Urine Culture is negative * Flagyl 250mg IVPB Q8H (active since 07/18/17) * Tigecycline 50mg IV Q12h (active since 07/18/17) * Florastor 250mg PO BID Status: Acute (7). Anion Gap Metabolic Acidosis * Sepsis: CODE SEPSIS was called 07/14/17 * See Assessment and Plans #2, #3, #5 * Due to the severe acidosis he was also started on D5W with 3 amps of NaHCO3 running at 100 ml/hour and this had resolved therefore the D5W NaHCO3 was discontinued 07/15/17. However the Acidosis returned and is likely secondary to the worsening Renal Function/Sepsis. Status: Acute (8). Hyperkalemia * Likely secondary to the Anion Gap Metabolic Acidosis * See Assessment and Plans #2 and #3 * Mild Status: Acute (9). CKD Stage III/Worsening Renal Failure/Hyponatremia * Nephrology Dr. Oconnell on board-->help appreciated * Vascular surgery, Dr Villanueva on board-->help appreciated * * The worsening Renal Function likely secondary to the Sepsis * Worsening Hyponatremia likely dilutional from the IVF initially used to help with the Renal Function. IVF have been discontinued. * Lasix 60 mg IV 2x/day started 07/18/17 to help with the Hyponatremia however there was no significant improvement on 07/19/17 * Despite the Lasix, renal function worsening 07/19/17. Bundle Cutter stunt person Dr. Larsen was notified 07/19/17 and HD orders have been provided by Dr. Larsen to HD Nurse Ramon Garibay to start HD once Dialysis Catheter is placed by the Surgical Team which is planned for morning of 07/20/17. * Dialysis MWF * Epocrit 10,000 unit IV MWF * Phoslo 1334mg PO TID * 07/30: discussed with Dr. Oconnell; recommended for vascular surgery eval for AV fistula placement prior to discharge * Per vascular surgery, vein mapping reviewed, pt has poor vasculature, not ideal for AVF; continue to use permacath and no further plans for surgery at this time Status: Acute on Chronic (10). Headache with Hx CVA-->Resolved Assessment and Plan: * CT Head 07/13/17 was negative for bleed or acute process * GI has signed off as of 07/28/17; No further planned GI intervention. Repeat CT Abdomen 07/25: fluid collection resolved * General surgery has signed off 07/27/17. No further planned intervention from Surgery * Aspirin 81mg PO daily * Plavix 75mg PO daily * Crestor 10mg POqHS Status: Chronic (11) AD (Alzheimer's disease) Assessment and Plan: * Aricept 10 mg PO daily Status: Chronic (12) Choledocholithiasis Assessment and Plan: * s/p ERCP with removal of stent and sphincterotomy with Dr. aDmian 07/13/17 * GI has signed off as of 07/28/17; No further planned GI intervention. Repeat CT Abdomen 07/25: fluid collection resolved Status: Stable (13) Anemia Assessment and Plan: * Likely secondary to Chronic Disease: CKD Stage III * Resume Ferrous Sulfate 325 mg PO daily. * Epocrit 10,000 unit IV MWF * HgB/Hct are stable * ON aspirin/Plavix given hx of stroke; no further intervention per GI/General surgery Status: Chronic (14) Hx Left Gluteal abscess Assessment and Plan: * Was I&D by surgery team on 06/26/17 * Treated with Bactrim 800/160 PO Q12H for 7 days S/P discharge 06/27/17 Status: Chronic (15) HLD (hyperlipidemia) Assessment and Plan: * Lopid 600 mg PO BID * Patient takes Lipitor 80 mg PO HS which is not on formulary therefore Crestor 10 mg PO HS (renal dosed). Status: Chronic (16) HTN (hypertension) Assessment and Plan: * As the patient's blood pressure is on the low end and he is off Amiodarone Drip since 07/21, therefore the following medications are on HOLD: Amlodipine 10 mg PO daily, Metoprolol XL 100 mg PO daily, and Losartan 100 mg PO daily are all on HOLD * 07/22: patient is off Amiodarone drip since 07/21; but patient is back in atrial fibrillation but is due for second dialysis today. patient's anti- hypertensives remain on hold Status: Chronic (17) Diabetes Assessment and Plan: * Diabetic Diet since 07/28/17-->adjust given patient is renal dialysis, first time dialysis this hospitalization * Accuchecks QAC and HS * Aspirin 81mg Po daily * Crestor 10mg POqHS * [id number]: 8.3 Status: Chronic (18) History of hypothyroidism Assessment and Plan: * Levothyroxine 50 mcg PO daily * TSH, Free T4 are normal Status: Chronic (19) Overactive bladder Assessment and Plan: * Festerodine 8 mg PO 1x/day * Enlarged Prostate on CT Abdomen/Pelvis * PSA >23.3--->Will need to be follow-up by urology as outpatient with repeat PSA Status: Chronic (20) Hx of glaucoma Assessment and Plan: * Patient's home med Travatan ggt not on formulary. * Started Xalatan ggt in bilateral eyes. Status: Chronic (21) Hx of gastroesophageal reflux (GERD) Assessment and Plan: * Protonix 40 mg IV daily Status: Chronic (22) Thrombocytopenia Assessment and Plan: * Hematology-oncology (Dr. Chet Paniagua) on consult) * Dropped; no bleeding noted * Stopped Heparin 08/02/17 * Pending HIT and KAITLYNN release assay * platelet function test ordered * Restarted Aspirin 81mg PO daily and Plavix 75mg PO daily (23) Prophylactic measure Assessment and Plan: * Protonix 40 mg PO daily * SCDs * Ascorbic Acid 250 mg PO daily * Florastor 250 mg PO 2x/day * Zofran 4 mg IV Q6H PRN N/V * Intubated on 07/20/17; extubated 07/22/17; on Pressor 07/21; off sedation; off amiodarone IV 07/21 * off heparin DVT secondary thrombocytopenia * PT eval in progress * Tolerating diet * Lyndsey Youssef (niece): [phone] Disposition: * GI and General surgery have signed off. * White count has normalized. Per ID to finish last dose of IV abx on , 08/06/17 * Platelets decreased. Stopped Heparin DVT ppx. Pending HIT, KAITLYNN assay. * Patient's PMD updated regarding patient's hospitalization. * Per latest Case management note; patient has approval for [facility] , and Tigecycline approved until 08/10/17. Will need to follow-up in regards to Dialysis placement. Will need to follow-up for Thursday for possible discharge
[2017-08-05 07:10] LABS: ALB/GLOB RATIO 0.7 (1.0-2.1); BILIRUBIN,TOTAL 0.7 mg/dL (0.2-1.3); CALCIUM 7.2 mg/dl (8.6-10.4); MAGNESIUM 1.7 mg/dL (1.6-2.3); POTASSIUM 3.7 mmol/L (3.6-5.2); TOTAL PROTEIN 5.4 g/dL (6.3-8.3)
[2017-08-05 07:23] LABS: BASO # 0.1 K/uL (0.0-0.2); EOS # 0.2 K/uL (0.0-0.7); MEAN PLATELET VOLUME 8.7 fL (7.2-11.7); NRBC % 0.1 % (0.0-2.0)
[2017-08-05 07:43] LABS: BASO % 0.9 % (0.0-2.0); EOS % 2.5 % (0.0-4.0); HEMATOCRIT 25.6 % (35.0-51.0); LYMPH # 2.8 K/uL (1.0-4.3); LYMPH % 27.9 % (20.0-40.0); MEAN CORPUSCULAR HEMOGLOBIN 28.4 pg (27.0-31.0); MEAN CORPUSCULAR HGB CONC 32.6 g/dL (33.0-37.0); MONO # 0.9 K/uL (0.0-0.8); MONO % 9.5 % (0.0-10.0)
[2017-08-05] MEDS: (Novolin R) Insulin Human Regular 100 units/ml vial SC SCH ×4 (08:28→21:49)
[2017-08-05] MEDS: Saccharomyces Boulardi 250 mg Cap PO SCH ×2 (10:44→17:23)
[2017-08-05] MEDS: Metoprolol Succinate 25 mg XL Tab PO SCH (10:44)
[2017-08-05] MEDS: Pantoprazole 40 mg EC Tab PO SCH (10:44)
[2017-08-05] MEDS: POLYETHYLENE GLYCOL 3350 17 GM/Dose PACKET PO SCH (10:45)
--- NOTE | 2017-08-05 14:04 | CP.PCM.PN ---
Subjective - Date & Time of Evaluation Date of Evaluation: 08/05/17 Time of Evaluation: 12:00 - Subjective Subjective: PICC line being inserted for continued AB unable to examine tolerated HD yesterday Objective - Vital Signs/Intake and Output Vital Signs (last 24 hours): Temp Pulse Resp BP Pulse Ox 97.8 F 83 18 112/67 98 08/05/17 07:20 08/05/17 07:20 08/05/17 07:20 08/05/17 07:20 08/05/17 07:20 Intake and Output: 08/05/17 08/05/17 06:59 18:59 Intake Total 240 Balance 240 - Medications Medications: Current Medications Albuterol Sulfate (Albuterol 0.042% Inhal Ruby (1.25mg/3ml) Ud) 1.25 mg INH RQ6 PRN PRN Reason: Wheezing Last Admin: 08/01/17 14:02 Dose: 1.25 mg Ascorbic Acid (Vitamin C 250 Mg Tab) 250 mg PO DAILY [facility] Last Admin: 08/05/17 10:44 Dose: 250 mg Aspirin (Aspirin Chewable) 81 mg PO DAILY [facility] Last Admin: 08/05/17 10:44 Dose: 81 mg Benzocaine/Menthol (Cepacol Sore Throat) 1 love MT Q2 PRN PRN Reason: Sore Throat Last Admin: 07/31/17 05:21 Dose: 1 love Calcium Acetate (Phoslo) 1,334 mg PO TIDCC [facility] Last Admin: 08/05/17 13:02 Dose: 1,334 mg Clopidogrel Bisulfate (Plavix) 75 mg PO DAILY [facility] Last Admin: 08/05/17 10:44 Dose: 75 mg Donepezil HCl (Aricept) 10 mg PO HS [facility] Last Admin: 08/04/17 21:38 Dose: 10 mg Epoetin Romel (Procrit) 10,000 unit IV TTS [facility] Last Admin: 08/04/17 13:12 Dose: 10,000 unit Ferrous Sulfate (Feosol) 325 mg PO Q12H [facility] Last Admin: 08/05/17 06:04 Dose: 325 mg Heparin Sodium (Porcine) (Heparin) 3,700 units IVP TTS [facility] Last Admin: 08/04/17 12:48 Dose: 3,700 units Home Med (Fesoterodine Fumarate [Toviaz]) 8 mg PO DAILY [facility] Hydromorphone HCl (Dilaudid) 0.5 mg IVP Q4 PRN PRN Reason: Pain, severe (8-10) Last Admin: 08/03/17 12:50 Dose: 0.5 mg Tigecycline 50 mg/ Sodium (Chloride) 50 mls @ 100 mls/hr IVPB Q12H [facility] Last Admin: 08/05/17 06:07 Dose: Not Given Insulin Human Regular (Novolin R) 0 unit SC ACHS [facility] PRN Reason: Protocol Last Admin: 08/05/17 13:03 Dose: 4 unit Latanoprost (Xalatan Opht) 0 ml OU HS [facility] Last Admin: 08/04/17 21:40 Dose: 2.5 ml Levothyroxine Sodium (Synthroid) 50 mcg PO DAILY@0630 [facility] Last Admin: 08/05/17 06:04 Dose: 50 mcg Metoprolol Succinate (Toprol Xl) 25 mg PO DAILY [facility] Last Admin: 08/05/17 10:44 Dose: 25 mg Ondansetron HCl (Zofran Inj) 4 mg IVP Q6 PRN PRN Reason: Nausea/Vomiting Last Admin: 08/03/17 12:46 Dose: 4 mg Oxycodone/Acetaminophen (Percocet 5/325 Mg Tab) 2 tab PO Q4H PRN PRN Reason: Pain, moderate (4-7) Stop: 08/07/17 16:33 Pantoprazole Sodium (Protonix Ec Tab) 40 mg PO DAILY [facility] Last Admin: 08/05/17 10:44 Dose: 40 mg Polyethylene Glycol (Miralax) 17 gm PO DAILY [facility] Last Admin: 08/05/17 10:45 Dose: Not Given Rosuvastatin Calcium (Crestor) 10 mg PO HS [facility] Last Admin: 08/04/17 21:38 Dose: 10 mg Saccharomyces Boulardii (Florastor) 250 mg PO BID [facility] Last Admin: 08/05/17 10:44 Dose: 250 mg - Labs Labs: 08/05/17 06:42 08/05/17 06:42 PT 16.1 SECONDS (9.7-12.2) H 08/02/17 08:44 INR 1.4 08/02/17 08:44 APTT 32 SECONDS (21-34) 08/02/17 08:44 Assessment and Plan - Assessment and Plan (Free Text) Assessment: new dialysis recent sepsis and respiratory failure continue AB and maint HD
--- NOTE | 2017-08-05 15:38 | CP.PCM.PN ---
Subjective - Date & Time of Evaluation Date of Evaluation: 08/05/17 Time of Evaluation: 08:00 - Subjective Subjective: AFEB ALERT CONFUSED NAD Objective - Vital Signs/Intake and Output Vital Signs (last 24 hours): Temp Pulse Resp BP Pulse Ox 97.8 F 83 18 112/67 98 08/05/17 07:20 08/05/17 07:20 08/05/17 07:20 08/05/17 07:20 08/05/17 07:20 Intake and Output: 08/05/17 08/05/17 06:59 18:59 Intake Total 240 300 Balance 240 300 - Medications Medications: Current Medications Albuterol Sulfate (Albuterol 0.042% Inhal Ruby (1.25mg/3ml) Ud) 1.25 mg INH RQ6 PRN PRN Reason: Wheezing Last Admin: 08/01/17 14:02 Dose: 1.25 mg Ascorbic Acid (Vitamin C 250 Mg Tab) 250 mg PO DAILY [facility] Last Admin: 08/05/17 10:44 Dose: 250 mg Aspirin (Aspirin Chewable) 81 mg PO DAILY [facility] Last Admin: 08/05/17 10:44 Dose: 81 mg Benzocaine/Menthol (Cepacol Sore Throat) 1 love MT Q2 PRN PRN Reason: Sore Throat Last Admin: 07/31/17 05:21 Dose: 1 love Calcium Acetate (Phoslo) 1,334 mg PO TIDCC [facility] Last Admin: 08/05/17 13:02 Dose: 1,334 mg Clopidogrel Bisulfate (Plavix) 75 mg PO DAILY [facility] Last Admin: 08/05/17 10:44 Dose: 75 mg Donepezil HCl (Aricept) 10 mg PO HS [facility] Last Admin: 08/04/17 21:38 Dose: 10 mg Epoetin Romel (Procrit) 10,000 unit IV TTS [facility] Last Admin: 08/04/17 13:12 Dose: 10,000 unit Ferrous Sulfate (Feosol) 325 mg PO Q12H [facility] Last Admin: 08/05/17 06:04 Dose: 325 mg Heparin Sodium (Porcine) (Heparin) 3,700 units IVP TTS [facility] Last Admin: 08/04/17 12:48 Dose: 3,700 units Home Med (Fesoterodine Fumarate [Toviaz]) 8 mg PO DAILY [facility] Hydromorphone HCl (Dilaudid) 0.5 mg IVP Q4 PRN PRN Reason: Pain, severe (8-10) Last Admin: 08/03/17 12:50 Dose: 0.5 mg Tigecycline 50 mg/ Sodium (Chloride) 50 mls @ 100 mls/hr IVPB Q12H [facility] Last Admin: 08/05/17 06:07 Dose: Not Given Insulin Human Regular (Novolin R) 0 unit SC ACHS [facility] PRN Reason: Protocol Last Admin: 08/05/17 13:03 Dose: 4 unit Latanoprost (Xalatan Opht) 0 ml OU HS [facility] Last Admin: 08/04/17 21:40 Dose: 2.5 ml Levothyroxine Sodium (Synthroid) 50 mcg PO DAILY@0630 [facility] Last Admin: 08/05/17 06:04 Dose: 50 mcg Metoprolol Succinate (Toprol Xl) 25 mg PO DAILY [facility] Last Admin: 08/05/17 10:44 Dose: 25 mg Ondansetron HCl (Zofran Inj) 4 mg IVP Q6 PRN PRN Reason: Nausea/Vomiting Last Admin: 08/03/17 12:46 Dose: 4 mg Oxycodone/Acetaminophen (Percocet 5/325 Mg Tab) 2 tab PO Q4H PRN PRN Reason: Pain, moderate (4-7) Stop: 08/07/17 16:33 Pantoprazole Sodium (Protonix Ec Tab) 40 mg PO DAILY [facility] Last Admin: 08/05/17 10:44 Dose: 40 mg Polyethylene Glycol (Miralax) 17 gm PO DAILY [facility] Last Admin: 08/05/17 10:45 Dose: Not Given Rosuvastatin Calcium (Crestor) 10 mg PO HS [facility] Last Admin: 08/04/17 21:38 Dose: 10 mg Saccharomyces Boulardii (Florastor) 250 mg PO BID [facility] Last Admin: 08/05/17 10:44 Dose: 250 mg - Labs Labs: 08/05/17 06:42 08/05/17 06:42 PT 16.1 SECONDS (9.7-12.2) H 08/02/17 08:44 INR 1.4 08/02/17 08:44 APTT 32 SECONDS (21-34) 08/02/17 08:44 - Constitutional Appears: Non-toxic, Chronically Ill - Head Exam Head Exam: NORMOCEPHALIC - Eye Exam Eye Exam: PERRL - ENT Exam ENT Exam: Mucous Membranes Dry, Normal External Ear Exam - Neck Exam Neck Exam: absent: Lymphadenopathy - Respiratory Exam Respiratory Exam: Decreased Breath Sounds - Cardiovascular Exam Cardiovascular Exam: REGULAR RHYTHM - GI/Abdominal Exam GI & Abdominal Exam: Distended, Soft - Rectal Exam Rectal Exam: Deferred - Exam Exam: NORMAL INSPECTION - Extremities Exam Extremities Exam: absent: Pedal Edema - Back Exam Back Exam: absent: CVA tenderness (L), CVA tenderness (R) - Neurological Exam Neurological Exam: Alert, Awake Assessment and Plan (1) JAY JAY (acute kidney injury) Status: Acute (2) CVA, old, cognitive deficits Status: Acute (3) Chronic kidney disease, stage III (moderate) Status: Acute (4) Headache Status: Acute (5) Hx of gastroesophageal reflux (GERD) Status: Acute
[2017-08-05] MEDS: Latanoprost 2.5 ml Opht Soln OU SCH (22:06)
--- NOTE | 2017-08-06 00:14 | CP.PCM.PN ---
<Effie Vogt - Last Filed: 08/06/17 00:12> Subjective - Date & Time of Evaluation Date of Evaluation: 08/06/17 Time of Evaluation: 07:00 - Subjective Subjective: Patient was seen and examined at bedside. Patient states he knows he is in the hospital. Patient denies difficulty breathing, chest pain, abdominal pain, nausea or vomiting. Objective - Vital Signs/Intake and Output Vital Signs (last 24 hours): Temp Pulse Resp BP Pulse Ox 98.2 F 81 20 115/55 L 100 08/05/17 16:00 08/05/17 16:00 08/05/17 16:00 08/05/17 16:00 08/05/17 16:00 Intake and Output: 08/05/17 08/06/17 18:59 06:59 Intake Total 900 Balance 900 - Medications Medications: Current Medications Albuterol Sulfate (Albuterol 0.042% Inhal Ruby (1.25mg/3ml) Ud) 1.25 mg INH RQ6 PRN PRN Reason: Wheezing Last Admin: 08/01/17 14:02 Dose: 1.25 mg Ascorbic Acid (Vitamin C 250 Mg Tab) 250 mg PO DAILY [facility] Last Admin: 08/05/17 10:44 Dose: 250 mg Aspirin (Aspirin Chewable) 81 mg PO DAILY [facility] Last Admin: 08/05/17 10:44 Dose: 81 mg Benzocaine/Menthol (Cepacol Sore Throat) 1 love MT Q2 PRN PRN Reason: Sore Throat Last Admin: 07/31/17 05:21 Dose: 1 love Calcium Acetate (Phoslo) 1,334 mg PO TIDCC [facility] Last Admin: 08/05/17 17:26 Dose: 1,334 mg Clopidogrel Bisulfate (Plavix) 75 mg PO DAILY [facility] Last Admin: 08/05/17 10:44 Dose: 75 mg Donepezil HCl (Aricept) 10 mg PO HS [facility] Last Admin: 08/05/17 22:16 Dose: 10 mg Epoetin Romel (Procrit) 10,000 unit IV TTS [facility] Last Admin: 08/04/17 13:12 Dose: 10,000 unit Ferrous Sulfate (Feosol) 325 mg PO Q12H [facility] Last Admin: 08/05/17 18:48 Dose: 325 mg Heparin Sodium (Porcine) (Heparin) 3,700 units IVP TTS [facility] Last Admin: 08/04/17 12:48 Dose: 3,700 units Home Med (Fesoterodine Fumarate [Toviaz]) 8 mg PO DAILY [facility] Hydromorphone HCl (Dilaudid) 0.5 mg IVP Q4 PRN PRN Reason: Pain, severe (8-10) Last Admin: 08/03/17 12:50 Dose: 0.5 mg Tigecycline 50 mg/ Sodium (Chloride) 50 mls @ 100 mls/hr IVPB Q12H [facility] Last Admin: 08/05/17 18:45 Dose: 100 mls/hr Insulin Human Regular (Novolin R) 0 unit SC ACHS [facility] PRN Reason: Protocol Last Admin: 08/05/17 21:49 Dose: Not Given Latanoprost (Xalatan Opht) 0 ml OU HS [facility] Last Admin: 08/04/17 21:40 Dose: 2.5 ml Levothyroxine Sodium (Synthroid) 50 mcg PO DAILY@0630 [facility] Last Admin: 08/05/17 06:04 Dose: 50 mcg Metoprolol Succinate (Toprol Xl) 25 mg PO DAILY [facility] Last Admin: 08/05/17 10:44 Dose: 25 mg Ondansetron HCl (Zofran Inj) 4 mg IVP Q6 PRN PRN Reason: Nausea/Vomiting Last Admin: 08/03/17 12:46 Dose: 4 mg Oxycodone/Acetaminophen (Percocet 5/325 Mg Tab) 2 tab PO Q4H PRN PRN Reason: Pain, moderate (4-7) Stop: 08/07/17 16:33 Pantoprazole Sodium (Protonix Ec Tab) 40 mg PO DAILY [facility] Last Admin: 08/05/17 10:44 Dose: 40 mg Polyethylene Glycol (Miralax) 17 gm PO DAILY [facility] Last Admin: 08/05/17 10:45 Dose: Not Given Rosuvastatin Calcium (Crestor) 10 mg PO HS [facility] Last Admin: 08/05/17 22:16 Dose: 10 mg Saccharomyces Boulardii (Florastor) 250 mg PO BID [facility] Last Admin: 08/05/17 17:23 Dose: 250 mg - Labs Labs: 08/05/17 06:42 08/05/17 06:42 PT 16.1 SECONDS (9.7-12.2) H 08/02/17 08:44 INR 1.4 08/02/17 08:44 APTT 32 SECONDS (21-34) 08/02/17 08:44 - Constitutional Appears: Well, Non-toxic, No Acute Distress - Head Exam Head Exam: ATRAUMATIC, NORMAL INSPECTION, NORMOCEPHALIC - Eye Exam Eye Exam: Normal appearance - ENT Exam ENT Exam: Mucous Membranes Moist - Respiratory Exam Respiratory Exam: Clear to Ausculation Bilateral, NORMAL BREATHING PATTERN - Cardiovascular Exam Cardiovascular Exam: REGULAR RHYTHM, +S1, +S2 - GI/Abdominal Exam GI & Abdominal Exam: Distended, Soft, Normal Bowel Sounds - Extremities Exam Extremities Exam: Normal Inspection. absent: Pedal Edema - Neurological Exam Neurological Exam: Alert, Awake. absent: Oriented x3 - Psychiatric Exam Psychiatric exam: Normal Affect, Normal Mood - Skin Skin Exam: Intact, Normal Color, Warm Assessment and Plan - Assessment and Plan (Free Text) Assessment: (1) Cardiac Arrest PEA on 07/20/17 Assessment and Plan: * Status post-procedure; patient went into PEA on 07/20 ROSC returned; intubated 07/20/17-[id number] * Chest xray (07/22/17): moderate left pleural effusion with consolidative opacification in the left mid to lower lung zone. trace right pleural effusion with adjacent right basilar consolidation. cardiomeglay. calcification at the aortic knob * 07/29; patient is awake, alert, eating food at bedside; PT note recommending patient to subacute rehab * 07/30: same as above; discussed with case management to setup patient for subacute rehab and dialysis placement post hospitalization Status: Stable (2) Chest pain Assessment and Plan: * Patient with atypical chest pain history * Cardio Dr. Chau does not feel that this is cardiac related * PEA on 07/21 * Per cardio note: patient does not appear to have CHF, will trend troponin * Discussed with cardio; no amiodarone needed * TSH, Free T4 are normal * ECHO 07/13/17: LV EF is WNL, moderate concentric LVH, Grade I abnormal relaxation pattern Status: Stable (3) Cholangitis--Resolved ERCP Guidewire Perforation of Liver Capsule vs Peripheral Bile Duct Assessment and Plan: * GI (Dr. Damian) on board-->help appreciated * General surgery (Dr. Boyce) on board-->help appreciated * s/p ERCP with removal of stent and sphincterotomy with Dr. Damian 07/13/17 * CXR 07/13/17 does not show air under diaphragm. * Chest CT 07/13/17 shows pneumobilia as well as possible free air beneath Right Hemidiaphragm within Paraesophagel soft tissues. * CT Abdomen/Pelvis 07/13/17 shows gas fluid and stranding in the subcapsular and extracapsular area around Left Lobe Liver. * CT Abdomen/Pelvis on 07/14/17 showed gas and fluid around left lobe liver and along inferior vena cava that is unchanged, no evidence of extravasation of oral contrast from stomach or duodenem. * Abdomen X Ray 07/16/17 showed NO obstruction. * CT Abdomen/Pelvis w/o contrast 07/19/17: Fluid re-identified, which appears similar in size and likely subcapsular in location. No nathan currently evident with in the collection, Small pneumobila. Moderate bilateral pleural effusions and associated consolidations. Small abomdinla ascites. Small pelvic free fluid. Thicken walled under distended urinary bladder which contains air, Pacheco catheter is present * Ct abdomen/pelvis 07/25/17 PO contrast: no acute abdominal or pelvic abnormality; Small right and moderate left pleural effusion. Fatty liver. Small amount of air in the central biliary radicles is likely post surgical in etiology. * GI Dr. Damian spoke with IR 07/15/17 and area is NOT amenable to percutaneous drainage. * GI has signed off as of 07/28/17; No further planned GI intervention. Repeat CT Abdomen 07/25: fluid collection resolved * General surgery has signed off 07/27/17. No further planned intervention from Surgery * 07/30: recommended for 3 weeks of IV antibiotic as minimum and follow CT for resolution * 08/02: white count uptrending; patient recultured; f/u blood, urine and procalcitonin * 08/05: normalized; to finish IV abx on Status: Stable (4) Enterococcus faecium Bacteremia * Infectious Disease (Dr. Langford) on the board * Started on Tigecycline 50 mg IV Q12H after 100 mg initial infusion (07/17/17) * Discontinued Meropenem, Ciprofloxicin, and Vancomycin (07/17/17) * 07/14/17: Enterococcus Faecium X2 * Blood Culture: 07/17/17: No growth after 5 days (8:00) * Blood Culture: 07/17/17: Enterococcus Faecium (8:00) * Blood Culture: 07/20/17: No growth after 5 days * Blood culture: 08/02/17: No growth after 3 days X2 * Flagyl 250mg IVPB Q8H (active since 07/18/17) * Tigecycline 50mg IV Q12h (active since 07/18/17) * Per ID to finish last dose this August 06 * Florastor 250mg PO BID * 07/30: Per ID, recommended for 3 week minimum of IV antibiotic * 08/02: Patient recultured given rise in white count. * 08/05: normalized; to finish IV abx on Status: Acute (5). Atrial Fibrillation/Elevated Troponin * Cardiology (Dr. Chau) on board-->help appreciated * The Atrial Fibrillation is likely secondary to the increased sympathetic tone from the Sepsis and the elevated Troponin likely secondary to the Atrial Fibrillation * Repeat EKG (NSR) 07/21/17 * Restart Toprol XL 25mg PO daily (patient was off beta-elkin prior secondary to cardiac arrest on 07/20/17) * Resume Aspirin 81mg PO daily Status: Acute (6) Bilateral Pneumonia * CT Abdomen/Pelvis 07/13/17 showed bibasilar lingular and right middle lobe mild nonspecific infiltrates consistent with atelectasis/pneumonia * As patient was admitted to hospital within the last month (for Left Buttock Abscess) and has been on antibiotics, this is likely Health Care Associated Pneumonia with increased risk for Multidrug Resistence therefore he was treated with the following: * Meropenem 500 mg IV Q6H (07/14/17 through 07/17/17), Ciprofloxacin 400 mg IV Q12H (07/14/17 through 07/16/17),Vancomycin 1 gm IV Q24H (07/14/17 through ) and then patient started on Tigecycline as mentioned above * CT Abdomen/Pelvis w/o contrast 07/19/17: Fluid re-identified, which appears similar in size and likely subcapsular in location. No nathan currently evident with in the collection, Small pneumobila. Moderate bilateral pleural effusions and associated consolidations. Small abomdinla ascites. Small pelvic free fluid. Thicken walled under distended urinary bladder which contains air, Pacheco catheter is present * Chest xray (07/22/17): moderate left pleural effusion with consolidative opacification in the left mid to lower lung zone. trace right pleural effusion with adjacent right basilar consolidation. cardiomeglay. calcification at the aortic knob * Chest xray (07/23/17): interval removal of endotracheal and BG tube, right central venous catheter extending to the right SVC, worsening now near complete opacification of the left hemithorax with associated large left pleural effusion. Worsening prominent consolidative changes at the right lung base. Cardiomegaly. Calcification at aortic knob. Degenerative changes in the spine and shoulders. prominently dilated/distended loops of bowel in the upper abdomen * Chest xray (07/29): bilateral interval improvement in right basilar limited patchy density and mild left pleural effusion with signficiant residual noted at the left base. Left basilar atelectasis infiltrate remains posterior to the left heart. No pulmonary vascular derangement. Continued clinical and radiographic monitor advised. * Urine Legionella Ag is negative * Urine Strep pneumoniae Ag: non detected * Mycoplasma IgM is 81 (negative) Ig.07 * Influenza A/B is negative * Urine Culture is negative * Flagyl 250mg IVPB Q8H (active since 07/18/17) * Tigecycline 50mg IV Q12h (active since 07/18/17) * Florastor 250mg PO BID Status: Acute (7). Anion Gap Metabolic Acidosis * Sepsis: CODE SEPSIS was called 07/14/17 * See Assessment and Plans #2, #3, #5 * Due to the severe acidosis he was also started on D5W with 3 amps of NaHCO3 running at 100 ml/hour and this had resolved therefore the D5W NaHCO3 was discontinued 07/15/17. However the Acidosis returned and is likely secondary to the worsening Renal Function/Sepsis. Status: Acute (8). Hyperkalemia * Likely secondary to the Anion Gap Metabolic Acidosis * See Assessment and Plans #2 and #3 * Mild Status: Acute (9). CKD Stage III/Worsening Renal Failure/Hyponatremia * Nephrology Dr. Oconnell on board-->help appreciated * Vascular surgery, Dr Villanueva on board-->help appreciated * * The worsening Renal Function likely secondary to the Sepsis * Worsening Hyponatremia likely dilutional from the IVF initially used to help with the Renal Function. IVF have been discontinued. * Lasix 60 mg IV 2x/day started 07/18/17 to help with the Hyponatremia however there was no significant improvement on 07/19/17 * Despite the Lasix, renal function worsening 07/19/17. Desktop Support Associate retail seasonal specialist Dr. Larsen was notified 07/19/17 and HD orders have been provided by Dr. Larsen to HD Nurse Ramon Garibay to start HD once Dialysis Catheter is placed by the Surgical Team which is planned for morning of 07/20/17. * Dialysis MWF * Epocrit 10,000 unit IV MWF * Phoslo 1334mg PO TID * 07/30: discussed with Dr. Oconnell; recommended for vascular surgery eval for AV fistula placement prior to discharge * Per vascular surgery, vein mapping reviewed, pt has poor vasculature, not ideal for AVF; continue to use permacath and no further plans for surgery at this time Status: Acute on Chronic (10). Headache with Hx CVA-->Resolved Assessment and Plan: * CT Head 07/13/17 was negative for bleed or acute process * GI has signed off as of 07/28/17; No further planned GI intervention. Repeat CT Abdomen 07/25: fluid collection resolved * General surgery has signed off 07/27/17. No further planned intervention from Surgery * Aspirin 81mg PO daily * Plavix 75mg PO daily * Crestor 10mg POqHS Status: Chronic (11) AD (Alzheimer's disease) Assessment and Plan: * Aricept 10 mg PO daily Status: Chronic (12) Choledocholithiasis Assessment and Plan: * s/p ERCP with removal of stent and sphincterotomy with Dr. Damian 07/13/17 * GI has signed off as of 07/28/17; No further planned GI intervention. Repeat CT Abdomen 07/25: fluid collection resolved Status: Stable (13) Anemia Assessment and Plan: * Likely secondary to Chronic Disease: CKD Stage III * Resume Ferrous Sulfate 325 mg PO daily. * Epocrit 10,000 unit IV MWF * HgB/Hct are stable * ON aspirin/Plavix given hx of stroke; no further intervention per GI/General surgery Status: Chronic (14) Hx Left Gluteal abscess Assessment and Plan: * Was I&D by surgery team on 06/26/17 * Treated with Bactrim 800/160 PO Q12H for 7 days S/P discharge 06/27/17 Status: Chronic (15) HLD (hyperlipidemia) Assessment and Plan: * Lopid 600 mg PO BID * Patient takes Lipitor 80 mg PO HS which is not on formulary therefore Crestor 10 mg PO HS (renal dosed). Status: Chronic (16) HTN (hypertension) Assessment and Plan: * As the patient's blood pressure is on the low end and he is off Amiodarone Drip since 07/21, therefore the following medications are on HOLD: Amlodipine 10 mg PO daily, Metoprolol XL 100 mg PO daily, and Losartan 100 mg PO daily are all on HOLD * 07/22: patient is off Amiodarone drip since 07/21; but patient is back in atrial fibrillation but is due for second dialysis today. patient's anti- hypertensives remain on hold Status: Chronic (17) Diabetes Assessment and Plan: * Diabetic Diet since 07/28/17-->adjust given patient is renal dialysis, first time dialysis this hospitalization * Accuchecks QAC and HS * Aspirin 81mg Po daily * Crestor 10mg POqHS * [id number]: 8.3 Status: Chronic (18) History of hypothyroidism Assessment and Plan: * Levothyroxine 50 mcg PO daily * TSH, Free T4 are normal Status: Chronic (19) Overactive bladder Assessment and Plan: * Festerodine 8 mg PO 1x/day * Enlarged Prostate on CT Abdomen/Pelvis * PSA >23.3--->Will need to be follow-up by urology as outpatient with repeat PSA Status: Chronic (20) Hx of glaucoma Assessment and Plan: * Patient's home med Travatan ggt not on formulary. * Started Xalatan ggt in bilateral eyes. Status: Chronic (21) Hx of gastroesophageal reflux (GERD) Assessment and Plan: * Protonix 40 mg IV daily Status: Chronic (22) Thrombocytopenia Assessment and Plan: * Hematology-oncology (Dr. Chet Paniagua) on consult) * Dropped; no bleeding noted * Stopped Heparin 08/02/17 * Pending HIT and KAITLYNN release assay * platelet function test ordered * Restarted Aspirin 81mg PO daily and Plavix 75mg PO daily (23) Prophylactic measure Assessment and Plan: * Protonix 40 mg PO daily * SCDs * Ascorbic Acid 250 mg PO daily * Florastor 250 mg PO 2x/day * Zofran 4 mg IV Q6H PRN N/V * Intubated on 07/20/17; extubated 07/22/17; on Pressor 07/21; off sedation; off amiodarone IV 07/21 * off heparin DVT secondary thrombocytopenia * PT eval in progress * Tolerating diet * Lyndsey Youssef (niece): [phone] Disposition: * GI and General surgery have signed off. * White count has normalized. Per ID to finish last dose of IV abx on , 08/06/17 * Platelets decreased. Stopped Heparin DVT ppx. Pending HIT, KAITLYNN assay. * Patient's PMD updated regarding patient's hospitalization. * Per latest Case management note; patient has approval for [facility] , and Tigecycline approved until 08/10/17. Will need to follow-up in regards to Dialysis placement. Will need to follow-up for Thursday for possible discharge <Gladys Menchaca V - Last Filed: 08/06/17 15:21> Objective - Vital Signs/Intake and Output Vital Signs (last 24 hours): Temp Pulse Resp BP Pulse Ox 98.4 F 88 16 130/61 100 08/06/17 12:15 08/06/17 12:15 08/06/17 12:15 08/06/17 14:45 08/06/17 12:15 - Medications Medications: Current Medications Albuterol Sulfate (Albuterol 0.042% Inhal Ruby (1.25mg/3ml) Ud) 1.25 mg INH RQ6 PRN PRN Reason: Wheezing Last Admin: 08/01/17 14:02 Dose: 1.25 mg Ascorbic Acid (Vitamin C 250 Mg Tab) 250 mg PO DAILY [facility] Last Admin: 08/05/17 10:44 Dose: 250 mg Aspirin (Aspirin Chewable) 81 mg PO DAILY [facility] Last Admin: 08/05/17 10:44 Dose: 81 mg Benzocaine/Menthol (Cepacol Sore Throat) 1 love MT Q2 PRN PRN Reason: Sore Throat Last Admin: 07/31/17 05:21 Dose: 1 love Calcium Acetate (Phoslo) 1,334 mg PO TIDCC [facility] Last Admin: 08/06/17 13:49 Dose: Not Given Clopidogrel Bisulfate (Plavix) 75 mg PO DAILY [facility] Last Admin: 08/05/17 10:44 Dose: 75 mg Donepezil HCl (Aricept) 10 mg PO HS [facility] Last Admin: 08/05/17 22:16 Dose: 10 mg Epoetin Romel (Procrit) 10,000 unit IV TTS [facility] Last Admin: 08/06/17 14:50 Dose: 10,000 unit Ferrous Sulfate (Feosol) 325 mg PO Q12H [facility] Last Admin: 08/06/17 05:58 Dose: 325 mg Heparin Sodium (Porcine) (Heparin) 3,700 units IVP TTS [facility] Last Admin: 08/06/17 14:51 Dose: 3,700 units Home Med (Fesoterodine Fumarate [Toviaz]) 8 mg PO DAILY [facility] Hydromorphone HCl (Dilaudid) 0.5 mg IVP Q4 PRN PRN Reason: Pain, severe (8-10) Last Admin: 08/03/17 12:50 Dose: 0.5 mg Tigecycline 50 mg/ Sodium (Chloride) 50 mls @ 100 mls/hr IVPB Q12H [facility] Last Admin: 08/06/17 06:01 Dose: 100 mls/hr Insulin Human Regular (Novolin R) 0 unit SC ACHS [facility] PRN Reason: Protocol Last Admin: 08/06/17 13:48 Dose: Not Given Latanoprost (Xalatan Opht) 0 ml OU HS [facility] Last Admin: 08/05/17 22:06 Dose: Not Given Levothyroxine Sodium (Synthroid) 50 mcg PO DAILY@0630 [facility] Last Admin: 08/06/17 05:58 Dose: 50 mcg Metoprolol Succinate (Toprol Xl) 25 mg PO DAILY [facility] Last Admin: 08/05/17 10:44 Dose: 25 mg Ondansetron HCl (Zofran Inj) 4 mg IVP Q6 PRN PRN Reason: Nausea/Vomiting Last Admin: 08/03/17 12:46 Dose: 4 mg Oxycodone/Acetaminophen (Percocet 5/325 Mg Tab) 2 tab PO Q4H PRN PRN Reason: Pain, moderate (4-7) Stop: 08/07/17 16:33 Pantoprazole Sodium (Protonix Ec Tab) 40 mg PO DAILY [facility] Last Admin: 08/05/17 10:44 Dose: 40 mg Polyethylene Glycol (Miralax) 17 gm PO DAILY [facility] Last Admin: 08/05/17 10:45 Dose: Not Given Rosuvastatin Calcium (Crestor) 10 mg PO HS [facility] Last Admin: 08/05/17 22:16 Dose: 10 mg Saccharomyces Boulardii (Florastor) 250 mg PO BID [facility] Last Admin: 08/06/17 13:48 Dose: Not Given - Labs Labs: 08/06/17 07:13 08/06/17 07:13 PT 16.1 SECONDS (9.7-12.2) H 08/02/17 08:44 INR 1.4 08/02/17 08:44 APTT 32 SECONDS (21-34) 08/02/17 08:44 Attending/Attestation - Attestation I have personally seen and examined this patient.: Yes I have fully participated in the care of the patient.: Yes I have reviewed all pertinent clinical information, including history, physical exam and plan: Yes Notes (Text): Patient seen, examined and case discussed with day-time resident. Patient seen during dialysis session. Patient in no acute distress. No family present at present. Unable to ROS given patient's dementia. Discussed with dialysis session, patient's dialysis has difficult access, needed cathflo and is able to have dialysis; Will ask surgery resident to re- eval dialysis catheter post-dialysis Per ID, patient to complete IV abx after 08/07/17. White count has normalized. Afebrile. Platelets normalized. Blood cultures (08/02/17): no growth after 3 days X2 (not updated) Assessment/Plan (1) Cardiac Arrest PEA on 07/20/17 Assessment and Plan: * Status post-procedure; patient went into PEA on 07/20 ROSC returned; intubated 07/20/17-[id number] * Chest xray (07/22/17): moderate left pleural effusion with consolidative opacification in the left mid to lower lung zone. trace right pleural effusion with adjacent right basilar consolidation. cardiomeglay. calcification at the aortic knob * 07/29; patient is awake, alert, eating food at bedside; PT note recommending patient to subacute rehab * 07/30: same as above; discussed with case management to setup patient for subacute rehab and dialysis placement post hospitalization * 08/06; Awake and alert, in dialysis session Status: Stable (2) Chest pain Assessment and Plan: * Patient with atypical chest pain history * Cardio Dr. Chau does not feel that this is cardiac related * PEA on 07/21 * Per cardio note: patient does not appear to have CHF, will trend troponin * Discussed with cardio; no amiodarone needed * TSH, Free T4 are normal * ECHO 07/13/17: LV EF is WNL, moderate concentric LVH, Grade I abnormal relaxation pattern Status: Stable (3) Cholangitis--Resolved ERCP Guidewire Perforation of Liver Capsule vs Peripheral Bile Duct Assessment and Plan: * GI (Dr. Damian) on board-->help appreciated * General surgery (Dr. Boyce) on board-->help appreciated * s/p ERCP with removal of stent and sphincterotomy with Dr. Damian 07/13/17 * CXR 07/13/17 does not show air under diaphragm. * Chest CT 07/13/17 shows pneumobilia as well as possible free air beneath Right Hemidiaphragm within Paraesophagel soft tissues. * CT Abdomen/Pelvis 07/13/17 shows gas fluid and stranding in the subcapsular and extracapsular area around Left Lobe Liver. * CT Abdomen/Pelvis on 07/14/17 showed gas and fluid around left lobe liver and along inferior vena cava that is unchanged, no evidence of extravasation of oral contrast from stomach or duodenem. * Abdomen X Ray 07/16/17 showed NO obstruction. * CT Abdomen/Pelvis w/o contrast 07/19/17: Fluid re-identified, which appears similar in size and likely subcapsular in location. No nathan currently evident with in the collection, Small pneumobila. Moderate bilateral pleural effusions and associated consolidations. Small abomdinla ascites. Small pelvic free fluid. Thicken walled under distended urinary bladder which contains air, Pacheco catheter is present * Ct abdomen/pelvis 07/25/17 PO contrast: no acute abdominal or pelvic abnormality; Small right and moderate left pleural effusion. Fatty liver. Small amount of air in the central biliary radicles is likely post surgical in etiology. * GI Dr. Damian spoke with IR 07/15/17 and area is NOT amenable to percutaneous drainage. * GI has signed off as of 07/28/17; No further planned GI intervention. Repeat CT Abdomen 07/25: fluid collection resolved * General surgery has signed off 07/27/17. No further planned intervention from Surgery * 07/30: recommended for 3 weeks of IV antibiotic as minimum and follow CT for resolution * 08/02: white count uptrending; patient recultured; f/u blood, urine and procalcitonin * 08/05: normalized; to finish IV abx on Status: Stable (4) Enterococcus faecium Bacteremia * Infectious Disease (Dr. Langford) on the board * Started on Tigecycline 50 mg IV Q12H after 100 mg initial infusion (07/17/17) * Discontinued Meropenem, Ciprofloxicin, and Vancomycin (07/17/17) * 07/14/17: Enterococcus Faecium X2 * Blood Culture: 07/17/17: No growth after 5 days (8:00) * Blood Culture: 07/17/17: Enterococcus Faecium (8:00) * Blood Culture: 07/20/17: No growth after 5 days * Blood culture: 08/02/17: No growth after 3 days X2-->needs to be updated * Flagyl 250mg IVPB Q8H (active since 07/18/17) * Tigecycline 50mg IV Q12h (active since 07/18/17) * Per ID to finish last dose this August 06 * Florastor 250mg PO BID * 07/30: Per ID, recommended for 3 week minimum of IV antibiotic * 08/02: Patient recultured given rise in white count. * 08/05: normalized; to finish IV abx on Status: Acute (5). Atrial Fibrillation/Elevated Troponin * Cardiology (Dr. Chau) on board-->help appreciated * The Atrial Fibrillation is likely secondary to the increased sympathetic tone from the Sepsis and the elevated Troponin likely secondary to the Atrial Fibrillation * Repeat EKG (NSR) 07/21/17 * Restart Toprol XL 25mg PO daily (patient was off beta-elkin prior secondary to cardiac arrest on 07/20/17) * Resume Aspirin 81mg PO daily Status: Acute (6) Bilateral Pneumonia * CT Abdomen/Pelvis 07/13/17 showed bibasilar lingular and right middle lobe mild nonspecific infiltrates consistent with atelectasis/pneumonia * As patient was admitted to hospital within the last month (for Left Buttock Abscess) and has been on antibiotics, this is likely Health Care Associated Pneumonia with increased risk for Multidrug Resistence therefore he was treated with the following: * Meropenem 500 mg IV Q6H (07/14/17 through 07/17/17), Ciprofloxacin 400 mg IV Q12H (07/14/17 through 07/16/17),Vancomycin 1 gm IV Q24H (07/14/17 through ) and then patient started on Tigecycline as mentioned above * CT Abdomen/Pelvis w/o contrast 07/19/17: Fluid re-identified, which appears similar in size and likely subcapsular in location. No nathan currently evident with in the collection, Small pneumobila. Moderate bilateral pleural effusions and associated consolidations. Small abomdinla ascites. Small pelvic free fluid. Thicken walled under distended urinary bladder which contains air, Pacheco catheter is present * Chest xray (07/22/17): moderate left pleural effusion with consolidative opacification in the left mid to lower lung zone. trace right pleural effusion with adjacent right basilar consolidation. cardiomeglay. calcification at the aortic knob * Chest xray (07/23/17): interval removal of endotracheal and BG tube, right central venous catheter extending to the right SVC, worsening now near complete opacification of the left hemithorax with associated large left pleural effusion. Worsening prominent consolidative changes at the right lung base. Cardiomegaly. Calcification at aortic knob. Degenerative changes in the spine and shoulders. prominently dilated/distended loops of bowel in the upper abdomen * Chest xray (07/29): bilateral interval improvement in right basilar limited patchy density and mild left pleural effusion with signficiant residual noted at the left base. Left basilar atelectasis infiltrate remains posterior to the left heart. No pulmonary vascular derangement. Continued clinical and radiographic monitor advised. * Urine Legionella Ag is negative * Urine Strep pneumoniae Ag: non detected * Mycoplasma IgM is 81 (negative) Ig.07 * Influenza A/B is negative * Urine Culture is negative * Flagyl 250mg IVPB Q8H (active since 07/18/17) * Tigecycline 50mg IV Q12h (active since 07/18/17) * Florastor 250mg PO BID Status: Acute (7). Anion Gap Metabolic Acidosis * Sepsis: CODE SEPSIS was called 07/14/17 * See Assessment and Plans #2, #3, #5 * Due to the severe acidosis he was also started on D5W with 3 amps of NaHCO3 running at 100 ml/hour and this had resolved therefore the D5W NaHCO3 was discontinued 07/15/17. However the Acidosis returned and is likely secondary to the worsening Renal Function/Sepsis. Status: Acute (8). Hyperkalemia * Likely secondary to the Anion Gap Metabolic Acidosis * See Assessment and Plans #2 and #3 * Mild Status: Acute (9). CKD Stage III/Worsening Renal Failure/Hyponatremia * Nephrology Dr. Oconnell on board-->help appreciated * Vascular surgery, Dr Villanueva on board-->help appreciated * * The worsening Renal Function likely secondary to the Sepsis * Worsening Hyponatremia likely dilutional from the IVF initially used to help with the Renal Function. IVF have been discontinued. * Lasix 60 mg IV 2x/day started 07/18/17 to help with the Hyponatremia however there was no significant improvement on 07/19/17 * Despite the Lasix, renal function worsening 07/19/17. Desktop Support Associate retail seasonal specialist Dr. Larsen was notified 07/19/17 and HD orders have been provided by Dr. Larsen to HD Nurse Ramon Garibay to start HD once Dialysis Catheter is placed by the Surgical Team which is planned for morning of 07/20/17. * Dialysis MWF * Epocrit 10,000 unit IV MWF * Phoslo 1334mg PO TID * 07/30: discussed with Dr. Oconnell; recommended for vascular surgery eval for AV fistula placement prior to discharge * Per vascular surgery, vein mapping reviewed, pt has poor vasculature, not ideal for AVF; continue to use permacath and no further plans for surgery at this time Status: Acute on Chronic (10). Headache with Hx CVA-->Resolved Assessment and Plan: * CT Head 07/13/17 was negative for bleed or acute process * GI has signed off as of 07/28/17; No further planned GI intervention. Repeat CT Abdomen 07/25: fluid collection resolved * General surgery has signed off 07/27/17. No further planned intervention from Surgery * Aspirin 81mg PO daily * Plavix 75mg PO daily * Crestor 10mg POqHS Status: Chronic (11) AD (Alzheimer's disease) Assessment and Plan: * Aricept 10 mg PO daily Status: Chronic (12) Choledocholithiasis Assessment and Plan: * s/p ERCP with removal of stent and sphincterotomy with Dr. Damian 07/13/17 * GI has signed off as of 07/28/17; No further planned GI intervention. Repeat CT Abdomen 07/25: fluid collection resolved Status: Stable (13) Anemia Assessment and Plan: * Likely secondary to Chronic Disease: CKD Stage III * Resume Ferrous Sulfate 325 mg PO daily. * Epocrit 10,000 unit IV MWF * HgB/Hct are stable * ON aspirin/Plavix given hx of stroke; no further intervention per GI/General surgery Status: Chronic (14) Hx Left Gluteal abscess Assessment and Plan: * Was I&D by surgery team on 06/26/17 * Treated with Bactrim 800/160 PO Q12H for 7 days S/P discharge 06/27/17 Status: Chronic (15) HLD (hyperlipidemia) Assessment and Plan: * Lopid 600 mg PO BID * Patient takes Lipitor 80 mg PO HS which is not on formulary therefore Crestor 10 mg PO HS (renal dosed). Status: Chronic (16) HTN (hypertension) Assessment and Plan: * As the patient's blood pressure is on the low end and he is off Amiodarone Drip since 07/21, therefore the following medications are on HOLD: Amlodipine 10 mg PO daily, Metoprolol XL 100 mg PO daily, and Losartan 100 mg PO daily are all on HOLD * 07/22: patient is off Amiodarone drip since 07/21; but patient is back in atrial fibrillation but is due for second dialysis today. patient's anti- hypertensives remain on hold Status: Chronic (17) Diabetes Assessment and Plan: * Diabetic Diet since 07/28/17-->adjust given patient is renal dialysis, first time dialysis this hospitalization * Accuchecks QAC and HS * Aspirin 81mg Po daily * Crestor 10mg POqHS * [id number]: 8.3 Status: Chronic (18) History of hypothyroidism Assessment and Plan: * Levothyroxine 50 mcg PO daily * TSH, Free T4 are normal Status: Chronic (19) Overactive bladder Assessment and Plan: * Festerodine 8 mg PO 1x/day * Enlarged Prostate on CT Abdomen/Pelvis * PSA >23.3--->Will need to be follow-up by urology as outpatient with repeat PSA Status: Chronic (20) Hx of glaucoma Assessment and Plan: * Patient's home med Travatan ggt not on formulary. * Started Xalatan ggt in bilateral eyes. Status: Chronic (21) Hx of gastroesophageal reflux (GERD) Assessment and Plan: * Protonix 40 mg IV daily Status: Chronic (22) Thrombocytopenia Assessment and Plan: * Hematology-oncology (Dr. Chet Paniagua) on consult) * Dropped; no bleeding noted * Stopped Heparin 08/02/17 * Pending HIT and KAITLYNN release assay * platelet function test ordered * Restarted Aspirin 81mg PO daily and Plavix 75mg PO daily (23) Prophylactic measure Assessment and Plan: * Protonix 40 mg PO daily * SCDs * Ascorbic Acid 250 mg PO daily * Florastor 250 mg PO 2x/day * Zofran 4 mg IV Q6H PRN N/V * Intubated on 07/20/17; extubated 07/22/17; on Pressor 07/21; off sedation; off amiodarone IV 07/21 * off heparin DVT secondary thrombocytopenia * PT eval in progress * Tolerating diet * Lnydsey Youssef (niece): [phone] Disposition: * GI and General surgery have signed off. * White count has normalized. Per ID to finish last dose of IV abx on , 08/06/17 * Platelets normalized Stopped Heparin DVT ppx. Pending HIT, KAITLYNN assay. * Patient's PMD updated regarding patient's hospitalization yesterday. * Per latest Case management note; patient has approval for [facility] , and Tigecycline approved until 08/10/17. Discussed with covering case management today given update in regards to Tigecycline IV finish last dose today. Confirmed he does have dialysis placement read for discharge.
[2017-08-06] MEDS: Levothyroxine 50 MCG TAB PO SCH (05:58)
[2017-08-06 07:24] LABS: BASO # 0.1 K/uL (0.0-0.2); BASO % 1.3 % (0.0-2.0); EOS # 0.3 K/uL (0.0-0.7); HEMATOCRIT 26.3 % (35.0-51.0); LYMPH # 2.5 K/uL (1.0-4.3); LYMPH % 25.3 % (20.0-40.0); MEAN CELL VOLUME 87.3 fL (80.0-94.0); MEAN CORPUSCULAR HEMOGLOBIN 28.8 pg (27.0-31.0); MEAN PLATELET VOLUME 8.6 fL (7.2-11.7); MONO # 1.1 K/uL (0.0-0.8); MONO % 11.3 % (0.0-10.0); NRBC % 0.1 % (0.0-2.0); WHITE BLOOD COUNT 9.7 K/uL (4.8-10.8)
[2017-08-06 07:54] LABS: BILIRUBIN,TOTAL 0.9 mg/dL (0.2-1.3); CALCIUM 7.4 mg/dl (8.6-10.4); MAGNESIUM 1.7 mg/dL (1.6-2.3); PHOSPHOROUS 2.7 mg/dL (2.5-4.5); POTASSIUM 4.2 mmol/L (3.6-5.2); TOTAL PROTEIN 4.7 g/dL (6.3-8.3)
[2017-08-06] MEDS: (Novolin R) Insulin Human Regular 100 units/ml vial SC SCH ×5 (08:08→21:53)
--- NOTE | 2017-08-06 09:25 | CP.PCM.PN ---
Subjective - Date & Time of Evaluation Date of Evaluation: 08/06/17 Time of Evaluation: 09:23 - Subjective Subjective: Seen at dialysis now same confusion abdominal pains better creat down to 2 recheck creat clearance on Iv ABs still Objective - Vital Signs/Intake and Output Vital Signs (last 24 hours): Temp Pulse Resp BP Pulse Ox 97.9 F 81 18 129/73 98 08/06/17 05:57 08/06/17 08:59 08/06/17 05:57 08/06/17 05:57 08/06/17 05:57 - Medications Medications: Current Medications Albuterol Sulfate (Albuterol 0.042% Inhal Ruby (1.25mg/3ml) Ud) 1.25 mg INH RQ6 PRN PRN Reason: Wheezing Last Admin: 08/01/17 14:02 Dose: 1.25 mg Ascorbic Acid (Vitamin C 250 Mg Tab) 250 mg PO DAILY [facility] Last Admin: 08/05/17 10:44 Dose: 250 mg Aspirin (Aspirin Chewable) 81 mg PO DAILY [facility] Last Admin: 08/05/17 10:44 Dose: 81 mg Benzocaine/Menthol (Cepacol Sore Throat) 1 love MT Q2 PRN PRN Reason: Sore Throat Last Admin: 07/31/17 05:21 Dose: 1 love Calcium Acetate (Phoslo) 1,334 mg PO TIDCC [facility] Last Admin: 08/06/17 08:09 Dose: 1,334 mg Clopidogrel Bisulfate (Plavix) 75 mg PO DAILY [facility] Last Admin: 08/05/17 10:44 Dose: 75 mg Donepezil HCl (Aricept) 10 mg PO HS [facility] Last Admin: 08/05/17 22:16 Dose: 10 mg Epoetin Romel (Procrit) 10,000 unit IV TTS [facility] Last Admin: 08/04/17 13:12 Dose: 10,000 unit Ferrous Sulfate (Feosol) 325 mg PO Q12H [facility] Last Admin: 08/06/17 05:58 Dose: 325 mg Heparin Sodium (Porcine) (Heparin) 3,700 units IVP TTS [facility] Last Admin: 08/04/17 12:48 Dose: 3,700 units Home Med (Fesoterodine Fumarate [Toviaz]) 8 mg PO DAILY [facility] Hydromorphone HCl (Dilaudid) 0.5 mg IVP Q4 PRN PRN Reason: Pain, severe (8-10) Last Admin: 08/03/17 12:50 Dose: 0.5 mg Tigecycline 50 mg/ Sodium (Chloride) 50 mls @ 100 mls/hr IVPB Q12H [facility] Last Admin: 08/06/17 06:01 Dose: 100 mls/hr Insulin Human Regular (Novolin R) 0 unit SC ACHS [facility] PRN Reason: Protocol Last Admin: 08/06/17 08:08 Dose: 2 unit Latanoprost (Xalatan Opht) 0 ml OU HS [facility] Last Admin: 08/05/17 22:06 Dose: Not Given Levothyroxine Sodium (Synthroid) 50 mcg PO DAILY@0630 [facility] Last Admin: 08/06/17 05:58 Dose: 50 mcg Metoprolol Succinate (Toprol Xl) 25 mg PO DAILY [facility] Last Admin: 08/05/17 10:44 Dose: 25 mg Ondansetron HCl (Zofran Inj) 4 mg IVP Q6 PRN PRN Reason: Nausea/Vomiting Last Admin: 08/03/17 12:46 Dose: 4 mg Oxycodone/Acetaminophen (Percocet 5/325 Mg Tab) 2 tab PO Q4H PRN PRN Reason: Pain, moderate (4-7) Stop: 08/07/17 16:33 Pantoprazole Sodium (Protonix Ec Tab) 40 mg PO DAILY [facility] Last Admin: 08/05/17 10:44 Dose: 40 mg Polyethylene Glycol (Miralax) 17 gm PO DAILY [facility] Last Admin: 08/05/17 10:45 Dose: Not Given Rosuvastatin Calcium (Crestor) 10 mg PO HS [facility] Last Admin: 08/05/17 22:16 Dose: 10 mg Saccharomyces Boulardii (Florastor) 250 mg PO BID [facility] Last Admin: 08/05/17 17:23 Dose: 250 mg - Labs Labs: 08/06/17 07:13 08/06/17 07:13 PT 16.1 SECONDS (9.7-12.2) H 08/02/17 08:44 INR 1.4 08/02/17 08:44 APTT 32 SECONDS (21-34) 08/02/17 08:44 - Constitutional Appears: No Acute Distress, Chronically Ill - Head Exam Head Exam: ATRAUMATIC, NORMAL INSPECTION - Eye Exam Eye Exam: EOMI, Normal appearance - Neck Exam Neck Exam: Normal Inspection. absent: Tenderness - Respiratory Exam Respiratory Exam: Clear to Ausculation Bilateral, NORMAL BREATHING PATTERN - Cardiovascular Exam Cardiovascular Exam: REGULAR RHYTHM, +S1 - GI/Abdominal Exam GI & Abdominal Exam: Soft. absent: Tenderness - Extremities Exam Extremities Exam: Normal Inspection. absent: Tenderness - Neurological Exam Neurological Exam: Alert, CN II-XII Intact - Skin Skin Exam: Dry, Warm Assessment and Plan (1) Hx of stroke without residual deficits Status: Acute (2) History of hypertension Status: Chronic (3) JAY JAY (acute kidney injury) Status: Acute (4) Type 2 diabetes mellitus with diabetic nephropathy Status: Acute (5) Proteinuria Status: Acute (6) Hyponatremia with excess extracellular fluid volume Status: Resolved (7) ESRD (end stage renal disease) Status: Acute - Assessment and Plan (Free Text) Plan: dialysis now recheck creat clearance
[2017-08-06] MEDS: Metoprolol Succinate 25 mg XL Tab PO SCH (10:00)
[2017-08-06] MEDS: Saccharomyces Boulardi 250 mg Cap PO SCH ×2 (13:48→17:45)
[2017-08-06] MEDS: Epoetin Alfa 10,000 unit/ml Dialysis IV SCH (14:50)
[2017-08-06] MEDS: POLYETHYLENE GLYCOL 3350 17 GM/Dose PACKET PO SCH (16:06)
[2017-08-06 16:31] VITALS: RESP 20
[2017-08-06] MEDS: Pantoprazole 40 mg EC Tab PO SCH (17:48)
[2017-08-06] MEDS: Latanoprost 2.5 ml Opht Soln OU SCH (21:42)
[2017-08-07] MEDS: Levothyroxine 50 MCG TAB PO SCH (06:47)
[2017-08-07 07:31] LABS: BASO # 0.1 K/uL (0.0-0.2); BASO % 1.1 % (0.0-2.0); EOS # 0.2 K/uL (0.0-0.7); EOS % 1.9 % (0.0-4.0); HEMATOCRIT 26.6 % (35.0-51.0); LYMPH # 2.6 K/uL (1.0-4.3); LYMPH % 23.3 % (20.0-40.0); MEAN CELL VOLUME 86.7 fL (80.0-94.0); MEAN CORPUSCULAR HEMOGLOBIN 28.2 pg (27.0-31.0); MEAN CORPUSCULAR HGB CONC 32.6 g/dL (33.0-37.0); MEAN PLATELET VOLUME 8.9 fL (7.2-11.7); MONO # 1.1 K/uL (0.0-0.8); NRBC % 0.3 % (0.0-2.0); RED CELL DISTRIBUTION WIDTH 19.2 % (11.5-14.5)
[2017-08-07 08:01] LABS: BILIRUBIN,TOTAL 0.9 mg/dL (0.2-1.3); CALCIUM 7.5 mg/dl (8.6-10.4); MAGNESIUM 1.6 mg/dL (1.6-2.3); PHOSPHOROUS 3.3 mg/dL (2.5-4.5); POTASSIUM 4.5 mmol/L (3.6-5.2); TOTAL PROTEIN 4.7 g/dL (6.3-8.3)
[2017-08-07] MEDS: (Novolin R) Insulin Human Regular 100 units/ml vial SC SCH ×2 (08:08→12:24)
--- NOTE | 2017-08-07 09:38 | CP.PCM.PN ---
Subjective - Date & Time of Evaluation Date of Evaluation: 08/07/17 Time of Evaluation: 09:35 - Subjective Subjective: Appears same No new complaint no observed nausea, vomiting, fevers, chills, dysuria last creat 1.8- awaiting creat clearance s/p dialysis 08/06- minimal UF Objective - Vital Signs/Intake and Output Vital Signs (last 24 hours): Temp Pulse Resp BP Pulse Ox 98 F 60 20 123/74 98 08/06/17 23:35 08/06/17 23:35 08/06/17 23:35 08/06/17 23:35 08/06/17 23:35 - Medications Medications: Current Medications Albuterol Sulfate (Albuterol 0.042% Inhal Ruby (1.25mg/3ml) Ud) 1.25 mg INH RQ6 PRN PRN Reason: Wheezing Last Admin: 08/01/17 14:02 Dose: 1.25 mg Ascorbic Acid (Vitamin C 250 Mg Tab) 250 mg PO DAILY [facility] Last Admin: 08/06/17 17:49 Dose: 250 mg Aspirin (Aspirin Chewable) 81 mg PO DAILY [facility] Last Admin: 08/06/17 17:44 Dose: 81 mg Benzocaine/Menthol (Cepacol Sore Throat) 1 love MT Q2 PRN PRN Reason: Sore Throat Last Admin: 07/31/17 05:21 Dose: 1 love Calcium Acetate (Phoslo) 1,334 mg PO TIDCC [facility] Last Admin: 08/07/17 08:36 Dose: 1,334 mg Clopidogrel Bisulfate (Plavix) 75 mg PO DAILY [facility] Last Admin: 08/06/17 17:45 Dose: 75 mg Donepezil HCl (Aricept) 10 mg PO HS [facility] Last Admin: 08/06/17 21:36 Dose: 10 mg Epoetin Romel (Procrit) 10,000 unit IV TTS [facility] Last Admin: 08/06/17 14:50 Dose: 10,000 unit Ferrous Sulfate (Feosol) 325 mg PO Q12H [facility] Last Admin: 08/07/17 06:47 Dose: 325 mg Heparin Sodium (Porcine) (Heparin) 3,700 units IVP TTS [facility] Last Admin: 08/06/17 14:51 Dose: 3,700 units Home Med (Fesoterodine Fumarate [Toviaz]) 8 mg PO DAILY [facility] Hydromorphone HCl (Dilaudid) 0.5 mg IVP Q4 PRN PRN Reason: Pain, severe (8-10) Last Admin: 08/03/17 12:50 Dose: 0.5 mg Tigecycline 50 mg/ Sodium (Chloride) 50 mls @ 100 mls/hr IVPB Q12H [facility] Last Admin: 08/07/17 06:47 Dose: 100 mls/hr Insulin Human Regular (Novolin R) 0 unit SC ACHS [facility] PRN Reason: Protocol Last Admin: 08/07/17 08:08 Dose: Not Given Latanoprost (Xalatan Opht) 0 ml OU HS [facility] Last Admin: 08/06/17 21:42 Dose: 2.5 ml Levothyroxine Sodium (Synthroid) 50 mcg PO DAILY@0630 [facility] Last Admin: 08/07/17 06:47 Dose: 50 mcg Metoprolol Succinate (Toprol Xl) 25 mg PO DAILY [facility] Last Admin: 08/06/17 10:00 Dose: Not Given Ondansetron HCl (Zofran Inj) 4 mg IVP Q6 PRN PRN Reason: Nausea/Vomiting Last Admin: 08/03/17 12:46 Dose: 4 mg Oxycodone/Acetaminophen (Percocet 5/325 Mg Tab) 2 tab PO Q4H PRN PRN Reason: Pain, moderate (4-7) Stop: 08/07/17 16:33 Pantoprazole Sodium (Protonix Ec Tab) 40 mg PO DAILY [facility] Last Admin: 08/06/17 17:48 Dose: 40 mg Polyethylene Glycol (Miralax) 17 gm PO DAILY [facility] Last Admin: 08/06/17 16:06 Dose: Not Given Rosuvastatin Calcium (Crestor) 10 mg PO HS [facility] Last Admin: 08/06/17 21:36 Dose: 10 mg Saccharomyces Boulardii (Florastor) 250 mg PO BID [facility] Last Admin: 08/06/17 17:45 Dose: 250 mg - Labs Labs: 08/07/17 06:58 08/07/17 06:58 PT 16.1 SECONDS (9.7-12.2) H 08/02/17 08:44 INR 1.4 08/02/17 08:44 APTT 32 SECONDS (21-34) 08/02/17 08:44 - Constitutional Appears: No Acute Distress, Chronically Ill - Head Exam Head Exam: ATRAUMATIC, NORMAL INSPECTION - Eye Exam Eye Exam: EOMI, Normal appearance - Neck Exam Neck Exam: Normal Inspection. absent: Tenderness - Respiratory Exam Respiratory Exam: Clear to Ausculation Bilateral, NORMAL BREATHING PATTERN - Cardiovascular Exam Cardiovascular Exam: REGULAR RHYTHM, +S1 - GI/Abdominal Exam GI & Abdominal Exam: Soft. absent: Tenderness - Extremities Exam Extremities Exam: Normal Inspection. absent: Tenderness - Neurological Exam Neurological Exam: Awake, CN II-XII Intact - Skin Skin Exam: Dry, Warm Assessment and Plan (1) Hx of stroke without residual deficits Status: Acute (2) History of hypertension Status: Chronic (3) JAY JAY (acute kidney injury) Status: Acute (4) Type 2 diabetes mellitus with diabetic nephropathy Status: Acute (5) Proteinuria Status: Acute (6) Hyponatremia with excess extracellular fluid volume Status: Resolved (7) ESRD (end stage renal disease) Status: Acute - Assessment and Plan (Free Text) Plan: check creat clearance/ chemistries dialysis tentatively scheduled for 08/08 considering stopping dialysis if labs adequate
[2017-08-07] MEDS: POLYETHYLENE GLYCOL 3350 17 GM/Dose PACKET PO SCH (10:37)
[2017-08-07] MEDS: Saccharomyces Boulardi 250 mg Cap PO SCH (10:37)
[2017-08-07] MEDS: Pantoprazole 40 mg EC Tab PO SCH (10:37)
[2017-08-07] MEDS: Metoprolol Succinate 25 mg XL Tab PO SCH (10:38)
--- NOTE | 2017-08-07 15:22 | CP.PCM.DIS ---
Provider - Provider Date of Admission: 07/14/17 13:34 Attending physician: Gladys Menchaca DO Consults: Cardiology consult Dr. Chau General Surgery Dr. Boyce hematology/oncology consult Dr. Paniagua ID consult: Dr. Langford Nephrology consult: Dr. Oconnell Wound Care: Gluteal abscess history Time Spent in preparation of Discharge (in minutes): 45 Hospital Course - Lab Results Lab Results: Micro Results 08/02/17 15:45 Blood-Venous Blood Culture - Preliminary NO GROWTH AFTER 4 DAYS 08/02/17 14:30 Blood-Venous Blood Culture - Preliminary NO GROWTH AFTER 4 DAYS 08/02/17 14:15 Urine Urine Culture - Final No Growth (<1,000 CFU/ML) 07/30/17 15:00 Naris MRSA Culture - Final MRSA NOT DETECTED 07/20/17 03:55 Blood-Venous Blood Culture - Final NO GROWTH AFTER 5 DAYS 07/20/17 03:55 Blood-Venous Gram Stain - Final TEST NOT PERFORMED 07/20/17 03:55 Blood-Venous Blood Culture - Final NO GROWTH AFTER 5 DAYS 07/20/17 03:55 Blood-Venous Gram Stain - Final TEST NOT PERFORMED 07/17/17 08:00 Blood-Venous Blood Culture - Final NO GROWTH AFTER 5 DAYS 07/17/17 08:00 Blood-Venous Gram Stain - Final TEST NOT PERFORMED 07/17/17 08:00 Blood-Venous S.aureus & Coag-Neg Staph PNA FISH - Final 07/17/17 08:00 Blood-Venous Blood Culture - Final Enterococcus Faecium 07/17/17 08:00 Blood-Venous Gram Stain - Final 07/14/17 08:50 Blood-Venous S.aureus & Coag-Neg Staph PNA FISH - Final 07/14/17 08:50 Blood-Venous Blood Culture - Final Enterococcus Faecium 07/14/17 08:50 Blood-Venous Gram Stain - Final 07/14/17 08:50 Blood-Venous Blood Culture - Preliminary Enterococcus Faecium 07/14/17 08:50 Blood-Venous Gram Stain - Final 07/14/17 08:50 Urine,Clean Catch Urine Culture - Final No Growth (<1,000 CFU/ML) 07/14/17 01:40 Naris MRSA Culture (Admit) - Final MRSA NOT DETECTED Most Recent Lab Values WBC 11.0 K/uL (4.8-10.8) H 08/07/17 06:58 RBC 3.06 Mil/uL (4.40-5.90) L 08/07/17 06:58 Hgb 8.6 g/dL (12.0-18.0) L 08/07/17 06:58 Hct 26.6 % (35.0-51.0) L 08/07/17 06:58 MCV 86.7 fL (80.0-94.0) 08/07/17 06:58 MCH 28.2 pg (27.0-31.0) 08/07/17 06:58 MCHC 32.6 g/dL (33.0-37.0) L 08/07/17 06:58 RDW 19.2 % (11.5-14.5) H 08/07/17 06:58 Plt Count 154 K/uL (130-400) 08/07/17 06:58 MPV 8.9 fL (7.2-11.7) 08/07/17 06:58 Neut % (Auto) 63.7 % (50.0-75.0) 08/07/17 06:58 Lymph % (Auto) 23.3 % (20.0-40.0) 08/07/17 06:58 [place] % (Auto) 10.0 % (0.0-10.0) 08/07/17 06:58 Eos % (Auto) 1.9 % (0.0-4.0) 08/07/17 06:58 Baso % (Auto) 1.1 % (0.0-2.0) 08/07/17 06:58 Neut # 7.0 K/uL (1.8-7.0) 08/07/17 06:58 Lymph # 2.6 K/uL (1.0-4.3) 08/07/17 06:58 [place] # 1.1 K/uL (0.0-0.8) H 08/07/17 06:58 Eos # 0.2 K/uL (0.0-0.7) 08/07/17 06:58 Baso # 0.1 K/uL (0.0-0.2) 08/07/17 06:58 Neutrophils % (Manual) 85 % (50-75) H 07/21/17 06:54 Band Neutrophils % 2 % (0-2) 07/21/17 06:54 Lymphocytes % (Manual) 4 % (20-40) L 07/21/17 06:54 Reactive Lymphs % 1 % (0-0) H 07/16/17 05:43 Monocytes % (Manual) 9 % (0-10) 07/21/17 06:54 Eosinophils % (Manual) 3 % (0-4) 07/16/17 05:43 Basophils % (Manual) 1 % (0-2) 07/14/17 22:53 Metamyelocytes % 2 % (0-0) H 07/14/17 22:53 Differential Comment 08/05/17 06:42 Toxic Granulation Present 07/16/17 05:43 Dohle Bodies Present 07/16/17 05:43 Platelet Estimate Normal (NORMAL) 07/21/17 06:54 RBC Morphology Normal 07/16/17 05:43 Polychromasia Slight 07/21/17 06:54 Hypochromasia (manual) Slight 07/21/17 06:54 Poikilocytosis (manual Slight 07/14/17 22:53 Anisocytosis (manual) Slight 07/21/17 06:54 Rouleaux Slight 07/13/17 20:04 PT 16.1 SECONDS (9.7-12.2) H 08/02/17 08:44 INR 1.4 08/02/17 08:44 APTT 32 SECONDS (21-34) 08/02/17 08:44 Plt Function Assay 88 K/uL 08/02/17 19:52 Puncture Site R brach 07/22/17 05:27 pCO2 27 mm/Hg (35-45) L 07/22/17 05:27 pO2 86 mm/Hg (80-100) 07/22/17 05:27 HCO3 23.8 mmol/L (21-28) 07/22/17 05:27 ABG pH 7.50 (7.35-7.45) H 07/22/17 05:27 ABG Total CO2 21.9 mmol/L (22-28) L 07/22/17 05:27 ABG O2 Saturation 98.4 % (95-98) H 07/22/17 05:27 ABG Base Excess -1.5 mmol/L (-2.0-3.0) 07/22/17 05:27 ABG Hemoglobin 8.8 g/dL (11.7-17.4) L 07/22/17 05:27 ABG Carboxyhemoglobin 1.4 % (0.5-1.5) 07/22/17 05:27 POC ABG HHb (Measured) 1.6 % (0.0-5.0) 07/22/17 05:27 ABG Methemoglobin 1.4 % (0.0-3.0) 07/22/17 05:27 Nj Test Na 07/22/17 05:27 ABG Potassium 4.0 mmol/L (3.6-5.2) 07/15/17 04:56 A-a O2 Difference 308.0 mm/Hg 07/22/17 05:27 Respiratory Index 3.6 07/22/17 05:27 Hgb O2 Saturation 95.6 % (95.0-98.0) 07/22/17 05:27 Sodium 132.0 mmol/l (132-148) 07/15/17 04:56 Chloride 95.0 mmol/L (98-107) L 07/15/17 04:56 Glucose 232 mg/dl (75-110) H 07/15/17 04:56 Lactate 1.5 mmol/L (0.7-2.1) 07/15/17 04:56 Liter Flow 3.0 07/15/17 04:56 Vent Mode Prvc 07/22/17 05:27 Mechanical Rate 16 07/22/17 05:27 FiO2 60.0 % 07/22/17 05:27 Tidal Volume 500 07/22/17 05:27 PEEP 5 07/22/17 05:27 Sodium 130 mmol/L (132-148) L 08/07/17 06:58 Potassium 4.5 mmol/L (3.6-5.2) 08/07/17 06:58 Chloride 97 mmol/L (98-107) L 08/07/17 06:58 Carbon Dioxide 27 mmol/L (22-30) 08/07/17 06:58 Anion Gap 10 (10-20) 08/07/17 06:58 BUN 30 mg/dL (9-20) H 08/07/17 06:58 Creatinine 1.8 mg/dL (0.8-1.5) H 08/07/17 06:58 Est GFR ( Amer) 44 08/07/17 06:58 Est GFR (Non-Af Amer) 36 08/07/17 06:58 POC Glucose (mg/dL) 247 mg/dL (65-110) H 08/07/17 11:55 Random Glucose 122 mg/dL (75-110) H 08/07/17 06:58 Hemoglobin A1c 8.3 % (4.2-6.5) H 07/14/17 09:57 Lactic Acid 1.8 mmol/L (0.7-2.1) 07/14/17 22:55 Uric Acid 8.7 mg/dL (3.5-8.5) H 07/17/17 15:32 Calcium 7.5 mg/dl (8.6-10.4) L 08/07/17 06:58 Phosphorus 3.3 mg/dL (2.5-4.5) 08/07/17 06:58 Magnesium 1.6 mg/dL (1.6-2.3) 08/07/17 06:58 % Saturation 23 (20-55) 07/30/17 11:17 Ferritin 349.0 ng/mL 07/30/17 06:15 Total Bilirubin 0.9 mg/dL (0.2-1.3) 08/07/17 06:58 AST 28 U/L (17-59) 08/07/17 06:58 ALT 31 U/L (21-72) 08/07/17 06:58 Alkaline Phosphatase 110 U/L (38-126) 08/07/17 06:58 Total Creatine Kinase 567 U/L (55-170) H 07/21/17 12:48 CK-MB (Mass) 5.57 ng/mL (0.0-3.38) H 07/21/17 12:48 Troponin I 0.8280 ng/mL (0.00-0.120) H* 07/21/17 06:54 Troponin I, Quant 0.4900 ng/mL (0.00-0.120) H* 07/21/17 12:48 Total Protein 4.7 g/dL (6.3-8.3) L 08/07/17 06:58 Albumin 2.4 g/dL (3.5-5.0) L 08/07/17 06:58 Globulin 2.3 gm/dL (2.2-3.9) 08/07/17 06:58 Albumin/Globulin Ratio 1.0 (1.0-2.1) 08/07/17 06:58 Triglycerides 162 mg/dL (0-149) H D 07/14/17 06:22 Cholesterol 360 mg/dL (0-199) H 07/14/17 06:22 LDL Cholesterol Direct 223 mg/dL (0-129) H 07/14/17 06:22 HDL Cholesterol 43 mg/dL (30-70) 07/14/17 06:22 Lipase 207 U/L (23-300) 07/14/17 06:22 Free PSA 13.8 ng/mL 07/15/17 08:29 % Free PSA Not calculated Percent (>25) 07/15/17 08:29 Total PSA 23.3 ng/mL (<=4.0) H 07/15/17 08:29 Prostate Cancer Risk >50 Percent 07/15/17 08:29 Procalcitonin 3.65 NG/ML (0.19-0.49) H 08/02/17 19:54 Free T4 1.05 ng/dL (0.78-2.19) 07/13/17 20:04 TSH 3rd Generation 0.80 mIU/L (0.46-4.68) 07/13/17 20:04 Arterial Blood Potassium 4.0 mmol/L (3.6-5.2) 07/15/17 04:56 Urine Color Yellow (YELLOW) 08/02/17 16:32 Urine Clarity Hazy (Clear) 08/02/17 16:32 Urine pH 5.0 (5.0-8.0) 08/02/17 16:32 Ur Specific [place] 1.018 (1.003-1.030) 08/02/17 16:32 Urine Protein 1+ mg/dL (NEGATIVE) H 08/02/17 16:32 Urine Glucose (UA) Normal mg/dL (Normal) 08/02/17 16:32 Urine Ketones Negative mg/dL (NEGATIVE) 08/02/17 16:32 Urine Blood Negative (NEGATIVE) 08/02/17 16:32 Urine Nitrate Negative (NEGATIVE) 08/02/17 16:32 Urine Bilirubin Negative (NEGATIVE) 08/02/17 16:32 Urine Urobilinogen Normal mg/dL (0.2-1.0) 08/02/17 16:32 Ur Leukocyte Esterase Trace David/uL (Negative) 08/02/17 16:32 Urine WBC (Auto) 4 /hpf (0-5) 08/02/17 16:32 Urine RBC (Auto) 14 /hpf (0-3) H 07/17/17 15:32 Ur Squamous Epith Cells 1 /hpf (0-5) 08/02/17 16:32 Amorphous Sediment Rare /ul (<OCC) H 07/17/17 15:32 Urine Bacteria Rare (<OCC) 08/02/17 16:32 Hyaline Casts 11-20 /lpf (0-2) H 08/02/17 16:32 Granular Casts (Auto) 7 /lpf (0-1) 07/15/17 15:10 Urine Yeast (Budding) Many /hpf (NEGATIVE) H 08/02/17 16:32 Urine Osmolality 265 mosm/kg (300-1000) L 07/17/17 15:33 Ur Random Sodium 21 mmol/L 07/17/17 15:33 Urine Collection Time 24 HRS 07/29/17 04:46 Urine Total Volume 450 mL 07/29/17 04:46 Creatinine Clearance 13.0 mL/min (107-139) L 07/29/17 04:46 Random Vancomycin 13.00 ug/mL 07/17/17 06:04 Hep Bs Antigen Negative (NEGATIVE) 07/19/17 17:46 Hep Bs Antibody Negative (NEGATIVE) 07/19/17 17:46 Hep B Core IgM Ab Negative (NEGATIVE) 07/19/17 17:46 Hepatitis C Antibody Negative (NEGATIVE) 07/19/17 17:46 Influenza Typ A,B (EIA) Negative for flu a/b (NEGATIVE) 07/14/17 08:48 Ur L.pneumophila Ag Negative (NEGATIVE) 07/14/17 08:47 Mycoplasma pneumon IgG 1.07 (<=0.90) H 07/14/17 11:23 Mycoplasma pneumon IgM 81 U/mL (<770) 07/14/17 11:23 Ur Strep pneumoniae Ag Not detected 07/14/17 12:07 - Hospital Course Hospital Course: History Present Illness CC: "chest pain" 82 year old male with PMHX of DM, HTN, CVA, CAD s/p ERCP with removal of stent and sphincterotomy with Dr. Damian this afternoon. Rapid response was called worsening chest and abdominal pain. Chest pain was pressure like and " all over chest". Abdominal pain is diffuse and he feels his abdomen is distended. Patient was also complaining of dizziness and headache. Admits to nausea, but no vomiting. Admits to right arm pain which is chronic. Patient also complaining of left arm numbness, which is new. No other complaints. Patient also has gluteal abscess for which he is on antibiotics (Cipro and Bactrim). Hospital Course 07/13 Patient had an ERCP with subscapular extracapsular air. UGI with small bowel follow through to R/o duodenal perforation. Dr. Boyce was consulted, no intervention needed at this time. ERCP with guidewire perforation of the liver capsule/peripheral bile duct occurred with Dr. Damian 07/13/17. General surgery consulted Dr. Boyce. no surgical interventioned necessary. 07/25/17 CT abdomen and pelvis with PO contrast shows no abdominal or pelvic abdnormality. mild right and moderate left pleural effusion . small amount of air in central biliary with is likely to be due to the ERCP. patient had PEA 07/20, patient was intubated, ROSC, extubated . Patient had echo 07/13/17 EF 60% with trace mitral regurg. During hospital stay, patient was found to have enterococcus faecium bacteremia and ID Dr. Langford was consulted. 07/17 blood cultures grew back enterococcus faecium and 07/20 blood cultures grew back after 5 days. Medications flagyl/tigecycline plan per Dr. Langford is to discontinue antibiotics 08/10. Patient had a cxr 07/29 which was found to have some mild aispace disease. urine legionella, urine strep ag both negative. Mycoplasma IgM and IgG were found to be negative. Influenza A/B negative. Patient was placed on flagyl, tigecycline and florastor to treat the bilateral pneumonia During the hospital course, patient had dialysis. Dr. Oconnell was consulted. Dr. Villanueva was consulted for AVF placement which could not be done due to vein maping results of non-viable vessels (poor vasculature). Patient has a history of CVA. CT Head 07/13 negative for any acute process of bleeding. Patient continued with ASA 81mg POQD, plavix 75mg POQD and crestor 10mg POQHS. Patient was also found to have Thrombocytopenia. Hematology/Oncology consult: Dr. Paniagua. Platelet count was increasing on discharge. - f/u HIT and KAITLYNN release assay Patient discharged ODAL[facility] with Levoquin 500mg QD #5 - Date & Time of H&P Date of H&P: 08/07/17 Time of H&P: 15:22 Discharge Exam - Head Exam Head Exam: ATRAUMATIC, NORMAL INSPECTION - Eye Exam Eye Exam: EOMI, Normal appearance - ENT Exam ENT Exam: Mucous Membranes Dry - Neck Exam Neck exam: Full Rom - Respiratory Exam Respiratory Exam: NORMAL BREATHING PATTERN. absent: Accessory Muscle Use, Respiratory Distress, Stridor - Cardiovascular Exam Cardiovascular Exam: +S1, +S2. absent: Bradycardia, Tachycardia, Systolic Murmur - GI/Abdominal Exam GI & Abdominal Exam: Soft. absent: Distended, Firm, Guarding - Neurological Exam Neurological exam: Alert, Oriented x3 - Psychiatric Exam Psychiatric exam: Normal Affect, Normal Mood - Skin Skin Exam: Dry, Intact Discharge Plan - Discharge Medications Prescriptions: levoFLOXacin 500 mg in D5W [Levaquin 500MG] 500 mg PO DAILY #5 bag - Follow Up Plan Condition: FAIR Disposition: REHAB FACILITY/REHAB UNIT Instructions: Hemodialysis (DC), Perma-cath Placement (DC) Referrals: Ervin Oconnell MD [Staff Provider] -
[2017-08-07 16:23] VITALS: BP 142/77; PULSE 81; TEMP 98.1; O2SAT 100
[2017-08-08 00:12] LABS: HEPARIN-IND PLATELET AB Positive (Negative); RESULT Positive (Negative)
[2017-08-10 18:02] LABS: UFH SRA RESULT Indeterminate (Negative)
== END 2017-08-07 16:23 | DRG 856 ==
LOC: C.ENDO 09:39 → C.SDS 09:39 → C.9S 13:34 → INTOOBSV 18:15 → C.9S 18:15 → C.6T 21:35 → C.9I 07-14 02:17 → OBSVTOIN 07-14 13:34 → C.6T 07-30 09:01
PROVIDERS: ADMIT Hospitalist; ATTEND Hospitalist
PROC: 0FPB4DZ Removal of Intraluminal Device from Hepatobiliary Duct, Percutaneous Endoscopic Approach (ICD-10-PCS; 2017-07-13)
PROC: 02HV33Z Insertion of Infusion Device into Superior Vena Cava, Percutaneous Approach (ICD-10-PCS; 2017-07-14)
PROC: B548ZZA Ultrasonography of Superior Vena Cava, Guidance (ICD-10-PCS; 2017-07-14)
PROC: 5A12012 Performance of Cardiac Output, Single, Manual (ICD-10-PCS; 2017-07-20)
PROC: 5A1935Z Respiratory Ventilation, Less than 24 Consecutive Hours (ICD-10-PCS; 2017-07-20)
PROC: 0BH17EZ Insertion of Endotracheal Airway into Trachea, Via Natural or Artificial Opening (ICD-10-PCS; 2017-07-20)
PROC: B548ZZA Ultrasonography of Superior Vena Cava, Guidance (ICD-10-PCS; 2017-07-20)
PROC: 5A1D70Z Performance of Urinary Filtration, Intermittent, Less than 6 Hours Per Day (ICD-10-PCS; 2017-07-20)
PROC: 02HV33Z Insertion of Infusion Device into Superior Vena Cava, Percutaneous Approach (ICD-10-PCS; principal; 2017-07-20 11:15)
DX: T81.4XXA Infection following a procedure, initial encounter (principal); J18.9 Pneumonia, unspecified organism; R65.21 Severe sepsis with septic shock; J96.91 Respiratory failure, unspecified with hypoxia; N17.0 Acute kidney failure with tubular necrosis; K83.2 Perforation of bile duct; D69.6 Thrombocytopenia, unspecified; E11.21 Type 2 diabetes mellitus with diabetic nephropathy; I46.9 Cardiac arrest, cause unspecified; N18.6 End stage renal disease; E87.2 Acidosis; E87.1 Hypo-osmolality and hyponatremia; L02.31 Cutaneous abscess of buttock; I47.1 Supraventricular tachycardia; K56.7 Ileus, unspecified; K80.30 Calculus of bile duct with cholangitis, unspecified, without obstruction; I12.0 Hypertensive chronic kidney disease with stage 5 chronic kidney disease or end stage renal disease; E11.65 Type 2 diabetes mellitus with hyperglycemia; E11.22 Type 2 diabetes mellitus with diabetic chronic kidney disease; G30.9 Alzheimer's disease, unspecified; E87.5 Hyperkalemia; D63.1 Anemia in chronic kidney disease; F02.80 Dementia in other diseases classified elsewhere, unspecified severity, without behavioral disturbance, psychotic disturbance, mood disturbance, and anxiety; E03.9 Hypothyroidism, unspecified; N32.81 Overactive bladder; H40.9 Unspecified glaucoma; K21.9 Gastro-esophageal reflux disease without esophagitis; Z79.84 Long term (current) use of oral hypoglycemic drugs; Z79.82 Long term (current) use of aspirin; Z79.899 Other long term (current) drug therapy; Z86.14 Personal history of Methicillin resistant Staphylococcus aureus infection; E78.00 Pure hypercholesterolemia, unspecified; G89.29 Other chronic pain; I25.10 Atherosclerotic heart disease of native coronary artery without angina pectoris; I69.331 Monoplegia of upper limb following cerebral infarction affecting right dominant side; N40.1 Benign prostatic hyperplasia with lower urinary tract symptoms; Z79.02 Long term (current) use of antithrombotics/antiplatelets; Y83.8 Other surgical procedures as the cause of abnormal reaction of the patient, or of later complication, without mention of misadventure at the time of the procedure; I48.91 Unspecified atrial fibrillation; K66.8 Other specified disorders of peritoneum; Z90.49 Acquired absence of other specified parts of digestive tract; Z16.24 Resistance to multiple antibiotics

== ENCOUNTER 2017-09-14 14:14 | Inpatient (IN) | payer MEDICARE, OTHER ==
[2017-09-14 14:14] VITALS: BMI 26.2
[2017-09-14 16:40] LABS: BASO # 0.1 K/uL (0.0-0.2); EOS # 0.2 K/uL (0.0-0.7); EOS % 1.9 % (0.0-4.0); LYMPH % 34.4 % (20.0-40.0); MEAN CELL VOLUME 86.9 fL (80.0-94.0); MEAN CORPUSCULAR HEMOGLOBIN 28.7 pg (27.0-31.0); MEAN PLATELET VOLUME 8.1 fL (7.2-11.7); MONO # 0.6 K/uL (0.0-0.8); MONO % 6.7 % (0.0-10.0); NEUT # 4.9 K/uL (1.8-7.0); RBC 4.02 Mil/uL (4.40-5.90); RED CELL DISTRIBUTION WIDTH 15.6 % (11.5-14.5); WHITE BLOOD COUNT 8.7 K/uL (4.8-10.8)
[2017-09-14 16:44] LABS: HEMOGLOBIN 11.5 g/dL (12.0-18.0)
--- NOTE | 2017-09-14 16:49 | C.PDOC ---
History Of Present Illness 82 year old male presents to the ER stating that after dialysis today he began having pain to the catheter located on the left chest area. Patient states that the pain is associated with redness and swelling. Denies fever, SOB, vomiting, or rash. Time Seen by Provider: 09/14/17 14:49 Chief Complaint (Nursing): Abnormal Skin Integrity History Per: Patient History/Exam Limitations: no limitations Onset/Duration Of Symptoms: Hrs Current Symptoms Are (Timing): Still Present Location Of Injury: Left: Chest Recent travel outside of the [place]: No Past Medical History Reviewed: Historical Data, Nursing Documentation, Vital Signs Vital Signs: Last Vital Signs Temp 98.1 F 09/14/17 18:30 Pulse 71 09/14/17 18:30 Resp 18 09/14/17 18:30 BP 162/81 H 09/14/17 18:30 Pulse Ox 100 09/14/17 18:31 - Medical History PMH: Arthritis (BACK, BL KNEE), CVA, Dementia, Diabetes, HTN, Hypercholesterolemia, Hyperlipidemia, Hypothyroidism, Pneumonia (KLEBSIELLA PNEUMONIAE), End Stage Renal Disease, Chronic Kidney Disease - [facility] (07/14/17) DILATION OF COMMON BILE DUCT WITH INTRALUMINAL DEVICE, ENDO (04/28/17) DRAINAGE OF BUTTOCK SKIN, EXTERNAL APPROACH (06/24/17) DRAINAGE OF R LOW LEG SUBCU/FASCIA, PERC APPROACH, DIAGN (02/05/17) EXCISION OF R LOW LEG SUBCU/FASCIA, OPEN APPROACH (02/05/17) EXCISION OF SMALL INTESTINE, ENDO, DIAGN (07/21/15) INSERTION OF ENDOTRACHEAL AIRWAY INTO TRACHEA, VIA OPENING (07/14/17) INSERTION OF INFUSION DEV INTO SUP VENA CAVA, PERC APPROACH (07/14/17) INSPECTION OF UPPER INTESTINAL TRACT, ENDO (04/28/17) OCCUPATIONAL THERAPY (03/15/14) OTHER SPEECH THERAPY (03/20/14) PERFORMANCE OF CARDIAC OUTPUT, SINGLE, MANUAL (07/14/17) PHYSICAL THERAPY NEC (11/23/13) RECREATIONAL THERAPY (11/23/13) RELEASE PERITONEUM, PERCUTANEOUS ENDOSCOPIC APPROACH (12/03/15) REMOVE INTRALUM DEV FROM HEPATOBIL DUCT, PERC ENDO (07/14/17) RESECTION OF GALLBLADDER, PERCUTANEOUS ENDOSCOPIC APPROACH (12/03/15) RESPIRATORY VENTILATION, LESS THAN 24 CONSECUTIVE HOURS (07/14/17) ULTRASONOGRAPHY OF SUPERIOR VENA CAVA, GUIDANCE (07/14/17) Family History: States: Unknown Family Hx - Social History Hx Tobacco Use: No Hx Alcohol Use: No Hx Substance Use: No - Immunization History Hx Tetanus Toxoid Vaccination: No Hx Influenza Vaccination: Yes (2015) Hx Pneumococcal Vaccination: No Review Of Systems Except As Marked, All Systems Reviewed And Found Negative. Constitutional: Negative for: Fever Respiratory: Negative for: Shortness of Breath Gastrointestinal: Negative for: Vomiting Musculoskeletal: Positive for: Other (Pain to left chest wall at cath port) Skin: Negative for: Rash Physical Exam - Physical Exam Appears: No Acute Distress, Chronically Ill Skin: Normal Color, Warm, Dry Head: Atraumatic, Normacephalic Eye(s): bilateral: Normal Inspection, PERRL, EOMI Oral Mucosa: Moist Neck: Normal ROM, No Midline Cervical Tenderness, No Paracervical Tenderness, Supple Chest: Symmetrical, Other (Dialysis cath to left upper area. (+) tenderness, swelling or erythema to the site.) Cardiovascular: Rhythm Regular, No Friction Rub, No Murmur Respiratory: Normal Breath Sounds, No Rales, No Rhonchi, No Wheezing Gastrointestinal/Abdominal: Soft, No Tenderness Back: Normal Inspection, No CVA Tenderness Extremity: Normal ROM, No Swelling Neurological/Psych: Oriented x3, Normal Speech Gait: Steady ED Course And Treatment - Laboratory Results Result Diagrams: 09/14/17 16:37 09/14/17 16:37 O2 Sat by Pulse Oximetry: 100 (Room air) Pulse Ox Interpretation: Normal Medical Decision Making Medical Decision Making: Blood work ordered. Prior records reviewed, patient was noted to be admitted on 07/13/17 for chest pain and abdominal pain; he was found to be in ESRD, HD permacath was placed to left chest by Dr. Boyce. The case was discussed with the hospitalist Holly who agrees to admit the patient and states to place it under Dr. Marroquin. Disposition - Disposition Disposition: HOSPITALIZED Disposition Time: 18:31 Condition: FAIR Forms: [facility] (German) - POA Present On Arrival: None - Clinical Impression Clinical Impression: ESRD (end stage renal disease), Cellulitis - PA / TECHNICAL SERVICE ENGINEER / Resident Statement MD/DO has reviewed & agrees with the documentation as recorded. - Scribe Statement The provider has reviewed the documentation as recorded by the Scribceline Argueta All medical record entries made by the Scribe were at my direction and personally dictated by me. I have reviewed the chart and agree that the record accurately reflects my personal performance of the history, physical exam, medical decision making, and the department course for this patient. I have also personally directed, reviewed, and agree with the discharge instructions and disposition.
[2017-09-14 16:52] LABS: CALCIUM 9.1 mg/dl (8.6-10.4); GFR AFRICAN-AMERICAN > 60; GFR NON-AFRICAN AMERICAN 53
[2017-09-14 16:55] LABS: ALB/GLOB RATIO 1.1 (1.0-2.1); ALBUMIN 3.8 g/dL (3.5-5.0); ALT/SGPT 16 U/L (21-72); AST/SGOT 42 U/L (17-59); BLOOD UREA NITROGEN 21 mg/dL (9-20)
[2017-09-14] MEDS ORDERED: Piperacillin/Tazobact 3.375 gm 100 ML IV STA (18:30)
[2017-09-14] MEDS ORDERED: Piperacillin/Tazobact 3.375 gm 100 ML IVPB ONE (18:42)
--- NOTE | 2017-09-14 22:09 | CP.PCM.CON ---
<Dalila Dykes - Last Filed: 09/14/17 22:16> History of Present Illness - History of Present Illness History of Present Illness: Vascular surgery consult for Dr. Berta Dykes, PGY-1 Pt S & E at bedside. Pt w/dementia, hx as per EMR. 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 Pt was at HD when he noted pain, erythema at insertion site. Pt reports pain over chest wall "always", chills. Denies F, N & V, SOB. Does not know if he has other problems. ROS limited due to dementia PMH: arthritis, CVA, dementia, DM, HTN, HLD, hypothyroidism, hx PNA, ESRD On HD PSH: s/p Trach, Gallbladder percutaneous surgery All: NKDA SH: Denies ETOH, tobacco or ilicit drug use Review of Systems - Review of Systems Systems not reviewed;Unavailable: Dementia - Constitutional Constitutional: Chills. absent: Fever - Cardiovascular Cardiovascular: Chest Pain - Gastrointestinal Gastrointestinal: absent: Abdominal Pain, Nausea, Vomiting Past Patient History - Infectious Disease Hx of Infectious Diseases: None - Tetanus Immunizations Tetanus Immunization: Unknown - Past Medical History & Family History Past Medical History?: Yes - Past Social History Smoking Status: Former Smoker - CARDIAC Hx Hypercholesterolemia: Yes Hx Hypertension: Yes - PULMONARY Hx Pneumonia: Yes (KLEBSIELLA PNEUMONIAE) - NEUROLOGICAL Hx Dementia: Yes - HEENT Hx HEENT Problems: Yes Hx Cataracts: Yes (SURGERY) - RENAL Hx Chronic Kidney Disease: Yes - ENDOCRINE/METABOLIC Hx Hypothyroidism: Yes - INTEGUMENTARY Hx Dermatological Problems: No - MUSCULOSKELETAL/RHEUMATOLOGICAL Hx Arthritis: Yes (BACK, BL KNEE) Hx Falls: No - GASTROINTESTINAL Hx Gastrointestinal Disorders: Yes (''STOMACH BACTERIA'') Hx Ulcer: Yes Other/Comment: CHOLEDOCHOLITHIASIS, CHOLANGITIS - GENITOURINARY/GYNECOLOGICAL Hx Genitourinary Disorders: No Hx Incontinence: Yes - PSYCHIATRIC Hx Substance Use: No - SURGICAL HISTORY Hx Surgeries: Yes Hx Cataract Extraction: Yes Other/Comment: LEFT BEHIND EAR SURGERY FROM BLOOD CLOTS ,RIGHT HAND SURGERY - ANESTHESIA Hx Anesthesia: Yes Hx Anesthesia Reactions: No Hx Malignant Hyperthermia: No Has any member of the family had a problem w/ anesthesia?: No Meds Allergies/Adverse Reactions: Allergies Allergy/AdvReac Type Severity Reaction Status Date / Time No Known Allergies Allergy Verified 07/13/17 10:45 - Medications Medications: Current Medications Acetaminophen (Tylenol 325mg Tab) 650 mg PO Q6 PRN PRN Reason: fever, pain Amlodipine Besylate (Norvasc) 10 mg PO DAILY [facility] Ascorbic Acid (Vitamin C 250 Mg Tab) 250 mg PO DAILY [facility] Ferrous Sulfate (Feosol) 325 mg PO BID [facility] Heparin Sodium (Porcine) (Heparin) 5,000 units SC Q8 [facility] Piperacillin Sod/Tazobactam Sod (Zosyn 2.25 Gm Iv Premix) 2.25 gm in 50 mls @ 100 mls/hr IVPB Q6H [facility] Vancomycin/Sodium Chloride (Vancomycin 1 Gm/Ns 200 Ml) 1 gm in 200 mls @ 133 mls/hr IVPB Q24H [facility] Stop: 09/19/17 22:01 Insulin Glargine (Lantus) 10 unit SC HS [facility] Insulin Human Regular (Novolin R) 0 unit SC ACHS [facility] PRN Reason: Protocol Levothyroxine Sodium (Synthroid) 50 mcg PO DAILY@0630 [facility] Pantoprazole Sodium (Protonix Ec Tab) 40 mg PO DAILY [facility] Tolterodine Tartrate (Detrol La) 4 mg PO DAILY [facility] Physical Exam - Constitutional Appears: Non-toxic, No Acute Distress - Head Exam Head Exam: ATRAUMATIC, NORMAL INSPECTION, NORMOCEPHALIC - Eye Exam Eye Exam: EOMI, Normal appearance - ENT Exam ENT Exam: Mucous Membranes Moist, Normal Exam - Neck Exam Neck exam: Positive for: Full Rom, Normal Inspection - Respiratory Exam Respiratory Exam: Clear to Auscultation Bilateral, NORMAL BREATHING PATTERN. absent: Chest Wall Tenderness, Respiratory Distress Additional comments: Left chest wall with permacath in place- insertion site with skin irritation/ skin darkening, no erythema or drainage noted, no tenderness over insertion site. States tenderness is under HD access sites. - Cardiovascular Exam Cardiovascular Exam: REGULAR RHYTHM, +S1, +S2 - GI/Abdominal Exam GI & Abdominal Exam: Normal Bowel Sounds, Soft. absent: Tenderness - Extremities Exam Extremities exam: Positive for: normal inspection - Neurological Exam Neurological exam: Alert, CN II-XII Intact - Psychiatric Exam Psychiatric exam: Normal Affect, Normal Mood - Skin Skin Exam: Dry, Intact, Normal Color, Warm Results - Vital Signs Recent Vital Signs: Last Vital Signs Temp 97.9 F 09/14/17 20:00 Pulse 73 09/14/17 20:00 Resp 20 09/14/17 20:00 BP 159/80 H 09/14/17 20:00 Pulse Ox 100 09/14/17 20:00 - Labs Result Diagrams: 09/14/17 16:37 09/14/17 16:37 Labs: Laboratory Results - last 24 hr 09/14/17 09/14/17 16:37 16:37 WBC 8.7 RBC 4.02 L Hgb 11.5 L D Hct 34.9 L MCV 86.9 MCH 28.7 MCHC 33.0 RDW 15.6 H Plt Count 244 MPV 8.1 Neut % (Auto) 56.0 Lymph % (Auto) 34.4 [place] % (Auto) 6.7 Eos % (Auto) 1.9 Baso % (Auto) 1.0 Neut # 4.9 Lymph # 3.0 [place] # 0.6 Eos # 0.2 Baso # 0.1 Sodium 134 Potassium 5.5 H Chloride 102 Carbon Dioxide 22 Anion Gap 15 BUN 21 H Creatinine 1.3 Est GFR ( Amer) > 60 Est GFR (Non-Af Amer) 53 Random Glucose 201 H Calcium 9.1 Total Bilirubin 0.8 AST 42 ALT 16 L D Alkaline Phosphatase 73 Total Protein 7.3 Albumin 3.8 Globulin 3.5 Albumin/Globulin Ratio 1.1 Assessment & Plan - Assessment and Plan (Free Text) Assessment: 82M w/PMH sig for ESRD on HD w/skin irritation at L chest wall insertion site Plan: Afebrile No leukocytosis Site without visible signs of infection FU blood cx Further recs per attending DW attending Jania, PGY-1 - Date & Time Date: 09/14/17 Time: 22:10 <Manohar Boyce - Last Filed: 09/15/17 08:28> Meds - Medications Medications: Current Medications Acetaminophen (Tylenol 325mg Tab) 650 mg PO Q6 PRN PRN Reason: fever, pain Amlodipine Besylate (Norvasc) 10 mg PO DAILY [facility] Ascorbic Acid (Vitamin C 250 Mg Tab) 250 mg PO DAILY [facility] Aspirin (Aspirin Chewable) 81 mg PO DAILY [facility] Clopidogrel Bisulfate (Plavix) 75 mg PO DAILY [facility] Donepezil HCl (Aricept) 10 mg PO HS [facility] Famotidine (Pepcid) 20 mg PO BID [facility] Ferrous Sulfate (Feosol) 325 mg PO BID [facility] Heparin Sodium (Porcine) (Heparin) 5,000 units SC Q8 [facility] Last Admin: 09/15/17 06:08 Dose: 5,000 units Piperacillin Sod/Tazobactam Sod (Zosyn 2.25 Gm Iv Premix) 2.25 gm in 50 mls @ 100 mls/hr IVPB Q6H [facility] Last Admin: 09/15/17 02:16 Dose: 100 mls/hr Vancomycin/Sodium Chloride (Vancomycin 1 Gm/Ns 200 Ml) 1 gm in 200 mls @ 133 mls/hr IVPB Q24H [facility] Stop: 09/19/17 22:01 Last Admin: 09/14/17 22:58 Dose: 133 mls/hr Insulin Glargine (Lantus) 10 unit SC HS [facility] Last Admin: 09/14/17 22:58 Dose: Not Given Insulin Human Regular (Novolin R) 0 unit SC ACHS [facility] PRN Reason: Protocol Last Admin: 09/15/17 08:12 Dose: Not Given Levothyroxine Sodium (Synthroid) 50 mcg PO DAILY@0630 [facility] Last Admin: 09/15/17 06:07 Dose: 50 mcg Metoprolol Succinate (Toprol Xl) 25 mg PO DAILY [facility] Tolterodine Tartrate (Detrol La) 4 mg PO DAILY [facility] Results - Vital Signs Recent Vital Signs: Last Vital Signs Temp 98.3 F 09/15/17 07:57 Pulse 70 09/15/17 07:57 Resp 20 09/15/17 07:57 BP 131/66 09/15/17 07:57 Pulse Ox 100 09/15/17 07:57 - Labs Result Diagrams: 09/15/17 06:28 09/15/17 06:28 Labs: Laboratory Results - last 24 hr 09/14/17 09/14/17 09/14/17 16:37 16:37 22:45 WBC 8.7 RBC 4.02 L Hgb 11.5 L D Hct 34.9 L MCV 86.9 MCH 28.7 MCHC 33.0 RDW 15.6 H Plt Count 244 MPV 8.1 Neut % (Auto) 56.0 Lymph % (Auto) 34.4 [place] % (Auto) 6.7 Eos % (Auto) 1.9 Baso % (Auto) 1.0 Neut # 4.9 Lymph # 3.0 [place] # 0.6 Eos # 0.2 Baso # 0.1 APTT Sodium 134 Potassium 5.5 H Chloride 102 Carbon Dioxide 22 Anion Gap 15 BUN 21 H Creatinine 1.3 Est GFR ( Amer) > 60 Est GFR (Non-Af Amer) 53 POC Glucose (mg/dL) 91 Random Glucose 201 H Calcium 9.1 Phosphorus Magnesium Total Bilirubin 0.8 AST 42 ALT 16 L D Alkaline Phosphatase 73 Total Protein 7.3 Albumin 3.8 Globulin 3.5 Albumin/Globulin Ratio 1.1 09/15/17 09/15/17 09/15/17 06:28 06:28 06:28 WBC 9.1 RBC 3.56 L Hgb 10.5 L Hct 30.4 L MCV 85.4 MCH 29.6 MCHC 34.6 RDW 15.8 H Plt Count 237 MPV 8.2 Neut % (Auto) 63.1 Lymph % (Auto) 26.6 [place] % (Auto) 6.3 Eos % (Auto) 2.9 Baso % (Auto) 1.1 Neut # 5.8 Lymph # 2.4 [place] # 0.6 Eos # 0.3 Baso # 0.1 APTT 30 Sodium 134 Potassium 3.6 Chloride 105 Carbon Dioxide 21 L Anion Gap 12 BUN 16 Creatinine 1.2 Est GFR ( Amer) > 60 Est GFR (Non-Af Amer) 58 POC Glucose (mg/dL) Random Glucose 112 H Calcium 8.4 L Phosphorus 4.0 Magnesium 1.2 L Total Bilirubin 0.6 AST 22 ALT 13 L Alkaline Phosphatase 77 Total Protein 6.0 L Albumin 3.1 L Globulin 2.9 Albumin/Globulin Ratio 1.1 Attending/Attestation - Attestation I have personally seen and examined this patient.: Yes I have fully participated in the care of the patient.: Yes I have reviewed all pertinent clinical information: Yes Notes (Text): Pt was seen and examined at bedside Agree with above note and assessment Pt with pain at permacath site. As per family, Pt does not need dialysis anymore Mild tenderness at permacath site, No clinical signs of infection Labs reviewed Will confirm with bulk pigment reducer for further need of dialysis Plan d.w pt in detail.
--- NOTE | 2017-09-14 22:14 | CP.PCM.HP ---
<Rogelio Bynum - Last Filed: 09/15/17 00:13> History of Present Illness - History of Present Illness History of Present Illness: PGY-1 H&P for Dr. Marroquin CC: "pain under my skin" This is an 82 year old male with PMHx HTN, DM, HLD, CVA 2013, dementia, CKD who presents complaining of pain at the site of the permacath on the left side of his chest wall. Patient's niece was at bedside. Per his niece, patient had the permacath placed and was getting dialysis. However, per the niece, patient no longer needed dialysis as of two weeks ago. At around this time as well, patient first began noticing erythema and itchiness. Patient describes the pain as a strong sharp pain without radiation. He cannot quantify on a pain scale how much exactly it hurts but he does state that it is constant. The itchiness is intermittent. Patient denies fevers, chills, chest pain, dyspnea, abdominal pain, dysuria. No sick contacts, but of note, patient was recently hospitalized with a MRSA infection in the left buttocks. PMHx: HTN, DM, HLD, CVA 2013, dementia, CKD, cholelithiasis, choledocholithiasis PSHx: Cholecystectomy, ERCP with removal of stent and sphincterotomy 07/13/17, Cardiac cath in 2012, L carotid surgery, ERCP, right hand surgery, non-emergent aortic dissection in 2014. Allergies: NKDA Social: denies tobacco, EtOH, drugs. Lives with , walks with cane. 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 Family Hx: HTN PMD: [place] Home meds: Patient is unsure because the homemaker prepares them for him weekly in a container by days of the week. Healthcare proxy: Niece Lyndsey Youssef [phone] Code status: Full code Present on Admission - Present on Admission Any Indicators Present on Admission: No Review of Systems - Review of Systems Systems not reviewed;Unavailable: Dementia (limited ROS due to dementia) - Constitutional Constitutional: absent: Chills, Fever - Cardiovascular Cardiovascular: absent: Chest Pain - Respiratory Respiratory: absent: Dyspnea - Gastrointestinal Gastrointestinal: absent: Abdominal Pain - Genitourinary Genitourinary: absent: Dysuria - Integumentary Integumentary: Rash (over the skin lying on top of the area of the permacath) Past Patient History - Infectious Disease Hx of Infectious Diseases: None - Tetanus Immunizations Tetanus Immunization: Unknown - Past Medical History & Family History Past Medical History?: Yes - Past Social History Smoking Status: Former Smoker - CARDIAC Hx Hypercholesterolemia: Yes Hx Hypertension: Yes - PULMONARY Hx Pneumonia: Yes (KLEBSIELLA PNEUMONIAE) - NEUROLOGICAL Hx Dementia: Yes - HEENT Hx HEENT Problems: Yes Hx Cataracts: Yes (SURGERY) - RENAL Hx Chronic Kidney Disease: Yes - ENDOCRINE/METABOLIC Hx Hypothyroidism: Yes - INTEGUMENTARY Hx Dermatological Problems: No - MUSCULOSKELETAL/RHEUMATOLOGICAL Hx Arthritis: Yes (BACK, BL KNEE) Hx Falls: No - GASTROINTESTINAL Hx Gastrointestinal Disorders: Yes (''STOMACH BACTERIA'') Hx Ulcer: Yes Other/Comment: CHOLEDOCHOLITHIASIS, CHOLANGITIS - GENITOURINARY/GYNECOLOGICAL Hx Genitourinary Disorders: No Hx Incontinence: Yes - PSYCHIATRIC Hx Substance Use: No - SURGICAL HISTORY Hx Surgeries: Yes Hx Cataract Extraction: Yes Other/Comment: LEFT BEHIND EAR SURGERY FROM BLOOD CLOTS ,RIGHT HAND SURGERY - ANESTHESIA Hx Anesthesia: Yes Hx Anesthesia Reactions: No Hx Malignant Hyperthermia: No Has any member of the family had a problem w/ anesthesia?: No Meds Allergies/Adverse Reactions: Allergies Allergy/AdvReac Type Severity Reaction Status Date / Time No Known Allergies Allergy Verified 07/13/17 10:45 Physical Exam - Constitutional Appears: No Acute Distress - Head Exam Head Exam: ATRAUMATIC, NORMOCEPHALIC - Eye Exam Eye Exam: EOMI, PERRL - ENT Exam ENT Exam: Mucous Membranes Moist - Respiratory Exam Respiratory Exam: Clear to Auscultation Bilateral. absent: Rales, Rhonchi, Wheezes - Cardiovascular Exam Cardiovascular Exam: REGULAR RHYTHM, +S1, +S2 - GI/Abdominal Exam GI & Abdominal Exam: Normal Bowel Sounds, Soft. absent: Distended, Guarding, Tenderness - Extremities Exam Extremities exam: Positive for: pedal pulses present. Negative for: pedal edema , tenderness - Neurological Exam Neurological exam: Alert, CN II-XII Intact Additional comments: oriented to person and place - Psychiatric Exam Psychiatric exam: Normal Affect, Normal Mood - Skin Skin Exam: Dry, Warm Additional comments: Left chest wall with permacath. Superior to site of insertion, there is redness of the surrounding skin. No tenderness to palpation over the site of the skin darkening. Results - Vital Signs Recent Vital Signs: Last Vital Signs Temp 97.9 F 09/14/17 20:00 Pulse 73 09/14/17 20:00 Resp 20 09/14/17 20:00 BP 159/80 H 09/14/17 20:00 Pulse Ox 100 09/14/17 20:00 - Labs Result Diagrams: 09/14/17 16:37 09/14/17 16:37 Labs: Laboratory Results - last 24 hr 09/14/17 09/14/17 16:37 16:37 WBC 8.7 RBC 4.02 L Hgb 11.5 L D Hct 34.9 L MCV 86.9 MCH 28.7 MCHC 33.0 RDW 15.6 H Plt Count 244 MPV 8.1 Neut % (Auto) 56.0 Lymph % (Auto) 34.4 [place] % (Auto) 6.7 Eos % (Auto) 1.9 Baso % (Auto) 1.0 Neut # 4.9 Lymph # 3.0 [place] # 0.6 Eos # 0.2 Baso # 0.1 Sodium 134 Potassium 5.5 H Chloride 102 Carbon Dioxide 22 Anion Gap 15 BUN 21 H Creatinine 1.3 Est GFR ( Amer) > 60 Est GFR (Non-Af Amer) 53 Random Glucose 201 H Calcium 9.1 Total Bilirubin 0.8 AST 42 ALT 16 L D Alkaline Phosphatase 73 Total Protein 7.3 Albumin 3.8 Globulin 3.5 Albumin/Globulin Ratio 1.1 Assessment & Plan - Assessment and Plan (Free Text) Plan: Possible infected Permacath Site F/u blood cultures Renally dosed Zosyn 2.25 gm IV Q6H Since patient recently had MRSA, we will cover empirically with Vancomycin 1 gm IV daily Patient also had recent Enterococcus faecalis bacteremia consulted Dr. Boyce who placed the permacath for evaluation if necessary to remove, help appreciated History of CKD with worsening renal function likely due to sepsis was on HD M, W, F per niece but as of two weeks ago, they were told that he no longer needed dialysis Per niece, Dr. Oconnell is his road advisor. Consult placed, help appreciated History of CVA BP control ASA 81 mg PO daily Plavix 75 mg PO daily Crestor 10 mg PO HS History of HTN Restarted medications from prior admissions Norvasc 10 mg PO daily Metroprolol Succinate 25 mg PO daily History of Hypothyroidism Restarted medications from prior admissions Synthroid 50 mcg PO daily History of Diabetes Restarted medications from prior admissions Lantus 10 units HS Regular ISS low dose History of Dementia Restarted medications from prior admissions Donepezil 10 mg PO HS Prophylactic Measure Heparin 5000 units SC Q8H Protonix 40 mg PO daily Heart Healthy Diet 2 gm sodium Case DW Dr. Cara Bynum PGY-1 <Adolfo Marroquin - Last Filed: 09/15/17 06:23> Results - Vital Signs Recent Vital Signs: Last Vital Signs Temp 97.7 F 09/14/17 23:39 Pulse 68 09/14/17 23:39 Resp 20 09/14/17 23:39 BP 154/79 H 09/14/17 23:39 Pulse Ox 97 09/14/17 23:39 - Labs Result Diagrams: 09/14/17 16:37 09/14/17 16:37 Labs: Laboratory Results - last 24 hr 09/14/17 09/14/17 09/14/17 16:37 16:37 22:45 WBC 8.7 RBC 4.02 L Hgb 11.5 L D Hct 34.9 L MCV 86.9 MCH 28.7 MCHC 33.0 RDW 15.6 H Plt Count 244 MPV 8.1 Neut % (Auto) 56.0 Lymph % (Auto) 34.4 [place] % (Auto) 6.7 Eos % (Auto) 1.9 Baso % (Auto) 1.0 Neut # 4.9 Lymph # 3.0 [place] # 0.6 Eos # 0.2 Baso # 0.1 Sodium 134 Potassium 5.5 H Chloride 102 Carbon Dioxide 22 Anion Gap 15 BUN 21 H Creatinine 1.3 Est GFR ( Amer) > 60 Est GFR (Non-Af Amer) 53 POC Glucose (mg/dL) 91 Random Glucose 201 H Calcium 9.1 Total Bilirubin 0.8 AST 42 ALT 16 L D Alkaline Phosphatase 73 Total Protein 7.3 Albumin 3.8 Globulin 3.5 Albumin/Globulin Ratio 1.1 Assessment & Plan - Date & Time Date: 09/15/17 (I have seen and examined the patient. I agree with the findings and plan of care as documented by Dr. Bynum. Patient with permacath infection. Prior MRSA infection in different location. Zosyn and Vanco for now. Consult Dr. Nunez. Consult Nephro for history of CKD. Continue home meds for history of CVA. Fall precautions. Monitor for acute changes.) Time: 06:21 Attending/Attestation - Attestation I have personally seen and examined this patient.: Yes I have fully participated in the care of the patient.: Yes I have reviewed all pertinent clinical information: Yes
[2017-09-14] MEDS: Vancomycin 1 gm/NS 200 ml 1 GM/200 ML BAG IVPB SCH (22:58)
[2017-09-14] MEDS: (Lantus) Insulin Glargine, Recombinant SC SCH (22:58)
[2017-09-14] MEDS: (Novolin R) Insulin Human Regular 100 units/ml vial SC SCH (22:58)
[2017-09-15] MEDS: Piperacill/Tazo 2.25gm in Dex 2.25 GM/50 ML BAG IVPB SCH ×4 (02:16→21:14)
[2017-09-15] MEDS ORDERED: Piperacillin/Tazobact 2.25 GM in Sodium Chloride 100 ML IVPB SCH (03:00)
[2017-09-15] MEDS: Levothyroxine 50 MCG TAB PO SCH (06:07)
[2017-09-15 06:41] LABS: BASO # 0.1 K/uL (0.0-0.2); BASO % 1.1 % (0.0-2.0); EOS # 0.3 K/uL (0.0-0.7); EOS % 2.9 % (0.0-4.0); HEMOGLOBIN 10.5 g/dL (12.0-18.0); LYMPH # 2.4 K/uL (1.0-4.3); LYMPH % 26.6 % (20.0-40.0); MEAN CELL VOLUME 85.4 fL (80.0-94.0); MEAN CORPUSCULAR HEMOGLOBIN 29.6 pg (27.0-31.0); MEAN CORPUSCULAR HGB CONC 34.6 g/dL (33.0-37.0); MEAN PLATELET VOLUME 8.2 fL (7.2-11.7); MONO # 0.6 K/uL (0.0-0.8); MONO % 6.3 % (0.0-10.0); NEUT # 5.8 K/uL (1.8-7.0); NEUT % 63.1 % (50.0-75.0); RBC 3.56 Mil/uL (4.40-5.90); RED CELL DISTRIBUTION WIDTH 15.8 % (11.5-14.5); WHITE BLOOD COUNT 9.1 K/uL (4.8-10.8)
[2017-09-15 07:02] LABS: ALB/GLOB RATIO 1.1 (1.0-2.1); ALBUMIN 3.1 g/dL (3.5-5.0); ALT/SGPT 13 U/L (21-72); AST/SGOT 22 U/L (17-59); BLOOD UREA NITROGEN 16 mg/dL (9-20); CALCIUM 8.4 mg/dl (8.6-10.4); GFR AFRICAN-AMERICAN > 60; GFR NON-AFRICAN AMERICAN 58; MAGNESIUM 1.2 mg/dL (1.6-2.3)
--- NOTE | 2017-09-15 07:08 | CP.PCM.PN ---
<Marcelino Ordoñez - Last Filed: 09/15/17 07:09> Subjective - Date & Time of Evaluation Date of Evaluation: 09/15/17 Time of Evaluation: 06:20 - Subjective Subjective: General Surgery Note for Dr. Boyce Patient seen and examined at bedside. No acute event overnight. Patient resting in bed comfortably. He is complaining of mild tenderness with palpation at permacath site. Patient tolerating diet. No other complaints at this time. Objective - Vital Signs/Intake and Output Vital Signs (last 24 hours): Temp Pulse Resp BP Pulse Ox 97.7 F 68 20 154/79 H 97 09/14/17 23:39 09/14/17 23:39 09/14/17 23:39 09/14/17 23:39 09/14/17 23:39 Intake and Output: 09/15/17 09/15/17 06:59 18:59 Intake Total 550 Balance 550 - Medications Medications: Current Medications Acetaminophen (Tylenol 325mg Tab) 650 mg PO Q6 PRN PRN Reason: fever, pain Amlodipine Besylate (Norvasc) 10 mg PO DAILY [facility] Ascorbic Acid (Vitamin C 250 Mg Tab) 250 mg PO DAILY [facility] Aspirin (Aspirin Chewable) 81 mg PO DAILY [facility] Clopidogrel Bisulfate (Plavix) 75 mg PO DAILY [facility] Donepezil HCl (Aricept) 10 mg PO HS [facility] Ferrous Sulfate (Feosol) 325 mg PO BID [facility] Heparin Sodium (Porcine) (Heparin) 5,000 units SC Q8 [facility] Last Admin: 09/15/17 06:08 Dose: 5,000 units Piperacillin Sod/Tazobactam Sod (Zosyn 2.25 Gm Iv Premix) 2.25 gm in 50 mls @ 100 mls/hr IVPB Q6H [facility] Last Admin: 09/15/17 02:16 Dose: 100 mls/hr Vancomycin/Sodium Chloride (Vancomycin 1 Gm/Ns 200 Ml) 1 gm in 200 mls @ 133 mls/hr IVPB Q24H [facility] Stop: 09/19/17 22:01 Last Admin: 09/14/17 22:58 Dose: 133 mls/hr Insulin Glargine (Lantus) 10 unit SC HS [facility] Last Admin: 09/14/17 22:58 Dose: Not Given Insulin Human Regular (Novolin R) 0 unit SC ACHS [facility] PRN Reason: Protocol Last Admin: 09/14/17 22:58 Dose: Not Given Levothyroxine Sodium (Synthroid) 50 mcg PO DAILY@0630 [facility] Last Admin: 09/15/17 06:07 Dose: 50 mcg Metoprolol Succinate (Toprol Xl) 25 mg PO DAILY [facility] Pantoprazole Sodium (Protonix Ec Tab) 40 mg PO DAILY [facility] Tolterodine Tartrate (Detrol La) 4 mg PO DAILY [facility] - Labs Labs: 09/15/17 06:28 09/15/17 06:28 APTT 30 SECONDS (21-34) 09/15/17 06:28 - Constitutional Appears: No Acute Distress - Head Exam Head Exam: ATRAUMATIC, NORMOCEPHALIC - Eye Exam Eye Exam: EOMI, Normal appearance Pupil Exam: PERRL - ENT Exam ENT Exam: Mucous Membranes Moist - Neck Exam Neck Exam: Full ROM - Respiratory Exam Respiratory Exam: NORMAL BREATHING PATTERN - Cardiovascular Exam Cardiovascular Exam: REGULAR RHYTHM - GI/Abdominal Exam GI & Abdominal Exam: Soft, Normal Bowel Sounds. absent: Tenderness - Extremities Exam Extremities Exam: absent: Calf Tenderness - Neurological Exam Neurological Exam: Alert, Awake, CN II-XII Intact - Psychiatric Exam Psychiatric exam: Normal Affect, Normal Mood - Skin Skin Exam: Dry, Warm Additional comments: Left sided permacath in place - insertion site with minimal skin irritation, very mild erythema at insertion site, no drainage noted, mild tenderness with palpation Assessment and Plan - Assessment and Plan (Free Text) Plan: 82M with mild tenderness at Left IJ permacath site -Afebrile, no leukocytosis -No obvious indication of infection at catheter site -Monitor for drainage or other signs of infection -f/u blood cultures -Will discuss with Dr. Austen Ordoñez PGY1 <Manohar Boyce - Last Filed: 09/15/17 08:30> Objective - Vital Signs/Intake and Output Vital Signs (last 24 hours): Temp Pulse Resp BP Pulse Ox 98.3 F 70 20 131/66 100 09/15/17 07:57 09/15/17 07:57 09/15/17 07:57 09/15/17 07:57 09/15/17 07:57 Intake and Output: 09/15/17 09/15/17 06:59 18:59 Intake Total 550 Balance 550 - Medications Medications: Current Medications Acetaminophen (Tylenol 325mg Tab) 650 mg PO Q6 PRN PRN Reason: fever, pain Amlodipine Besylate (Norvasc) 10 mg PO DAILY [facility] Ascorbic Acid (Vitamin C 250 Mg Tab) 250 mg PO DAILY [facility] Aspirin (Aspirin Chewable) 81 mg PO DAILY [facility] Clopidogrel Bisulfate (Plavix) 75 mg PO DAILY [facility] Donepezil HCl (Aricept) 10 mg PO HS [facility] Famotidine (Pepcid) 20 mg PO BID [facility] Ferrous Sulfate (Feosol) 325 mg PO BID [facility] Heparin Sodium (Porcine) (Heparin) 5,000 units SC Q8 [facility] Last Admin: 09/15/17 06:08 Dose: 5,000 units Piperacillin Sod/Tazobactam Sod (Zosyn 2.25 Gm Iv Premix) 2.25 gm in 50 mls @ 100 mls/hr IVPB Q6H [facility] Last Admin: 09/15/17 02:16 Dose: 100 mls/hr Vancomycin/Sodium Chloride (Vancomycin 1 Gm/Ns 200 Ml) 1 gm in 200 mls @ 133 mls/hr IVPB Q24H [facility] Stop: 09/19/17 22:01 Last Admin: 09/14/17 22:58 Dose: 133 mls/hr Insulin Glargine (Lantus) 10 unit SC [facility] Last Admin: 09/14/17 22:58 Dose: Not Given Insulin Human Regular (Novolin R) 0 unit SC ACHS [facility] PRN Reason: Protocol Last Admin: 09/15/17 08:12 Dose: Not Given Levothyroxine Sodium (Synthroid) 50 mcg PO DAILY@0630 [facility] Last Admin: 09/15/17 06:07 Dose: 50 mcg Metoprolol Succinate (Toprol Xl) 25 mg PO DAILY [facility] Tolterodine Tartrate (Detrol La) 4 mg PO DAILY [facility] - Labs Labs: 09/15/17 06:28 09/15/17 06:28 APTT 30 SECONDS (21-34) 09/15/17 06:28 Attending/Attestation - Attestation I have personally seen and examined this patient.: Yes I have fully participated in the care of the patient.: Yes I have reviewed all pertinent clinical information, including history, physical exam and plan: Yes Notes (Text): Pt was seen and examined at bedside Agree with above note and assessment Nephrology consult Will plan for removal of permacath tomorrow. Consent NPO, IVF Stop Plavix Plan d.w pt in detail Risk and benefit explained in detail.
[2017-09-15] MEDS: (Novolin R) Insulin Human Regular 100 units/ml vial SC SCH ×5 (08:12→21:28)
[2017-09-15] MEDS: Metoprolol Succinate 25 mg XL Tab PO SCH (09:33)
[2017-09-15] MEDS ORDERED: Tolterodine 4 mg ER Cap PO SCH (10:00)
[2017-09-15] MEDS: Magnesium Sulfate 1 gm in D5W 1 GM/100 ML BAG IVPB SCH ×2 (12:32→13:45)
[2017-09-15] MEDS ORDERED: Magnesium Sulfate 1 gm in D5W 1 GM/100 ML BAG IVPB SCH (14:45)
--- NOTE | 2017-09-15 14:50 | CP.PCM.PN ---
Addendum entered and electronically signed by Jersno Putnam DO 09/15/17 14:59: Hypomagnesemia -Replaced with 2grams of Magnesium sulfate. Original Note: <Jerson Putnam - Last Filed: 09/15/17 14:46> Subjective - Date & Time of Evaluation Date of Evaluation: 09/15/17 Time of Evaluation: 09:30 - Subjective Subjective: Patient has been seen and examined. His only complaint is mild tenderness at the catheter site. Denies any fevers, chills, chest pain, or SOB. Objective - Vital Signs/Intake and Output Vital Signs (last 24 hours): Temp Pulse Resp BP Pulse Ox 98.3 F 70 20 131/66 100 09/15/17 07:57 09/15/17 07:57 09/15/17 07:57 09/15/17 07:57 09/15/17 07:57 Intake and Output: 09/15/17 09/15/17 06:59 18:59 Intake Total 550 660 Balance 550 660 - Medications Medications: Current Medications Acetaminophen (Tylenol 325mg Tab) 650 mg PO Q6 PRN PRN Reason: fever, pain Amlodipine Besylate (Norvasc) 10 mg PO DAILY [facility] Last Admin: 09/15/17 09:32 Dose: 10 mg Ascorbic Acid (Vitamin C 250 Mg Tab) 250 mg PO DAILY [facility] Last Admin: 09/15/17 09:32 Dose: 250 mg Aspirin (Aspirin Chewable) 81 mg PO DAILY [facility] Last Admin: 09/15/17 09:32 Dose: 81 mg Clopidogrel Bisulfate (Plavix) 75 mg PO DAILY [facility] Last Admin: 09/15/17 09:32 Dose: 75 mg Donepezil HCl (Aricept) 10 mg PO HS [facility] Famotidine (Pepcid) 20 mg PO BID [facility] Last Admin: 09/15/17 09:33 Dose: 20 mg Ferrous Sulfate (Feosol) 325 mg PO BID [facility] Last Admin: 09/15/17 09:32 Dose: 325 mg Heparin Sodium (Porcine) (Heparin) 5,000 units SC Q8 [facility] Last Admin: 09/15/17 06:08 Dose: 5,000 units Piperacillin Sod/Tazobactam Sod (Zosyn 2.25 Gm Iv Premix) 2.25 gm in 50 mls @ 100 mls/hr IVPB Q6H [facility] Last Admin: 09/15/17 09:31 Dose: 100 mls/hr Vancomycin/Sodium Chloride (Vancomycin 1 Gm/Ns 200 Ml) 1 gm in 200 mls @ 133 mls/hr IVPB Q24H [facility] Stop: 09/19/17 22:01 Last Admin: 09/14/17 22:58 Dose: 133 mls/hr Magnesium Sulfate/Dextrose (Magnesium Sulfate 1 Gm/100 Ml D5w) 1 gm in 100 mls @ 300 mls/hr IVPB Q30M [facility] Stop: 09/15/17 15:34 Insulin Glargine (Lantus) 10 unit SC HS [facility] Last Admin: 09/14/17 22:58 Dose: Not Given Insulin Human Regular (Novolin R) 0 unit SC [facility] PRN Reason: Protocol Last Admin: 09/15/17 12:30 Dose: 2 unit Levothyroxine Sodium (Synthroid) 50 mcg PO DAILY@0630 [facility] Last Admin: 09/15/17 06:07 Dose: 50 mcg Metoprolol Succinate (Toprol Xl) 25 mg PO DAILY [facility] Last Admin: 09/15/17 09:33 Dose: 25 mg Tolterodine Tartrate (Detrol La) 4 mg PO DAILY [facility] Last Admin: 09/15/17 09:32 Dose: 4 mg - Labs Labs: 09/15/17 06:28 09/15/17 06:28 APTT 30 SECONDS (21-34) 09/15/17 06:28 - Additional Findings Additional findings: - Constitutional Appears: No Acute Distress - Head Exam Head Exam: ATRAUMATIC, NORMOCEPHALIC - Eye Exam Eye Exam: EOMI, Normal appearance Pupil Exam: PERRL - ENT Exam ENT Exam: Mucous Membranes Moist - Neck Exam Neck Exam: Full ROM - Respiratory Exam Respiratory Exam: NORMAL BREATHING PATTERN - Cardiovascular Exam Cardiovascular Exam: REGULAR RHYTHM - GI/Abdominal Exam GI & Abdominal Exam: Soft, Normal Bowel Sounds. absent: Tenderness - Extremities Exam Extremities Exam: absent: Calf Tenderness - Neurological Exam Neurological Exam: Alert, Awake, CN II-XII Intact - Psychiatric Exam Psychiatric exam: Restricted Affect, Normal Mood - Skin Skin Exam: Dry, Warm Additional comments: Left sided permacath in place - insertion site with minimal skin irritation, very mild erythema at insertion site, no drainage noted, mild tenderness with palpation Assessment and Plan - Assessment and Plan (Free Text) Assessment: 82 year old male with PMHx HTN, DM, HLD, CVA 2013, dementia, CKD who presents complaining of pain at the site of the permacath on the left side of his chest wall. Plan: Possible infected Permacath Site Blood Cultures - PENDING Zosyn 2.25 gm IV Q6H (Renally Dosed) (Day 2) Vancomycin 1 gm IV daily Since patient recently had MRSA, we will cover empirically (Day 2) Patient also had recent Enterococcus faecalis bacteremia Surgery consulted (Dr. Boyce) who placed the permacath for evaluation if necessary to remove, help appreciated Plan for permacath removal tomorrow. Discussed with surgery resident about getting cultures from the catheter. ID Consulted (Dr. Langford) Nephro Consulted (Dr. Oconnell). Per Dr. Oconnell patient does not need dialysis anymore. 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 Consult placed, help appreciated History of CVA BP control ASA 81 mg PO daily Plavix 75 mg PO daily Crestor 10 mg PO HS History of HTN Restarted medications from prior admissions Norvasc 10 mg PO daily Metroprolol Succinate 25 mg PO daily History of Hypothyroidism Restarted medications from prior admissions Synthroid 50 mcg PO daily History of Diabetes Restarted medications from prior admissions Lantus 10 units HS Regular ISS low dose History of Dementia Restarted medications from prior admissions Donepezil 10 mg PO HS Prophylactic Measure Heparin 5000 units SC Q8H Protonix 40 mg PO daily Heart Healthy Diet 2 gm sodium Patient seen and discussed with Attending. Jerson Putnam PGY-1 <Gladys Menchaca V - Last Filed: 09/15/17 23:00> Objective - Vital Signs/Intake and Output Vital Signs (last 24 hours): Temp Pulse Resp BP Pulse Ox 98.3 F 70 20 131/66 100 09/15/17 07:57 09/15/17 07:57 09/15/17 07:57 09/15/17 07:57 09/15/17 07:57 Intake and Output: 09/15/17 09/16/17 18:59 06:59 Intake Total 660 450 Balance 660 450 - Medications Medications: Current Medications Acetaminophen (Tylenol 325mg Tab) 650 mg PO Q6 PRN PRN Reason: fever, pain Amlodipine Besylate (Norvasc) 10 mg PO DAILY [facility] Last Admin: 09/15/17 09:32 Dose: 10 mg Ascorbic Acid (Vitamin C 250 Mg Tab) 250 mg PO DAILY [facility] Last Admin: 09/15/17 09:32 Dose: 250 mg Aspirin (Aspirin Chewable) 81 mg PO DAILY [facility] Last Admin: 09/15/17 09:32 Dose: 81 mg Clopidogrel Bisulfate (Plavix) 75 mg PO DAILY [facility] Last Admin: 09/15/17 09:32 Dose: 75 mg Donepezil HCl (Aricept) 10 mg PO HS [facility] Last Admin: 09/15/17 21:14 Dose: 10 mg Famotidine (Pepcid) 20 mg PO BID [facility] Last Admin: 09/15/17 17:20 Dose: 20 mg Ferrous Sulfate (Feosol) 325 mg PO BID [facility] Last Admin: 09/15/17 17:20 Dose: 325 mg Heparin Sodium (Porcine) (Heparin) 5,000 units SC Q8 [facility] Last Admin: 09/15/17 06:08 Dose: 5,000 units Piperacillin Sod/Tazobactam Sod (Zosyn 2.25 Gm Iv Premix) 2.25 gm in 50 mls @ 100 mls/hr IVPB Q6H [facility] Last Admin: 09/15/17 21:14 Dose: 100 mls/hr Vancomycin/Sodium Chloride (Vancomycin 1 Gm/Ns 200 Ml) 1 gm in 200 mls @ 133 mls/hr IVPB Q24H [facility] Stop: 09/19/17 22:01 Last Admin: 09/15/17 22:02 Dose: 133 mls/hr Insulin Glargine (Lantus) 10 unit SC [facility] Last Admin: 09/15/17 21:14 Dose: 10 unit Insulin Human Regular (Novolin R) 0 unit SC [facility] PRN Reason: Protocol Last Admin: 09/15/17 21:28 Dose: Not Given Levothyroxine Sodium (Synthroid) 50 mcg PO DAILY@0630 [facility] Last Admin: 09/15/17 06:07 Dose: 50 mcg Metoprolol Succinate (Toprol Xl) 25 mg PO DAILY [facility] Last Admin: 09/15/17 09:33 Dose: 25 mg Tolterodine Tartrate (Detrol La) 4 mg PO DAILY [facility] Last Admin: 09/15/17 09:32 Dose: 4 mg - Labs Labs: 09/15/17 06:28 09/15/17 06:28 APTT 30 SECONDS (21-34) 09/15/17 06:28 Attending/Attestation - Attestation I have personally seen and examined this patient.: Yes I have fully participated in the care of the patient.: Yes I have reviewed all pertinent clinical information, including history, physical exam and plan: Yes Notes (Text): Patient seen, examined and case discussed with day-time resident. Patient came in following complaints over pain over his permacath site with associated celulitic changes. Blood cultures order from permcath site and peripheral. Surgery evaluated patient and will removed permcath tomorrow. Aspirin, Plavix and Heparin DVT on hold. Note: consent for procedure should be through patient's niece, Lyndsey Youssef. Palliative care consult for goals of care and for POLST creation Infectious Disease on consult: help appreciated given patien prior hx of enteroccus faecium bactermia, and prior hx of MRSA Nephrology on consult: help appreciated. Will order chest xray given prior hx of pneumonia last admission. Discharge Diagnoses (1) Cellulitis; Possible Infected Permacath Site * General surgery (Dr. Boyce) on board-->help appreciated * Infectious Disease (Dr Langford) on board-->help appreciated * Patient to have removal of Permcath tomorrow * Pending cultures * Patient started on Zosyn and Vancomycin * Monitor surgical site (2) Prior Hx Enterococcus faecium Bacteremia-->stable completed PO Abx for 5 days at time of discharge * Infectious Disease (Dr. Langford) on the board * Patient has completed IV abx and completed PO antibiotic upon discharge last admission (3).History of Atrial Fibrillation * Restart Toprol XL 25mg PO daily (patient was off beta-elkin prior secondary to cardiac arrest on 07/20/17) * Hold Aspirin 81mg PO daily (4).Acute Renal Insufficiency * Nephrology (Dr. Oconnell) on consult help appreciated * Patient no longer needs Permcath; has not needed dialysis for 2 weeks Status: (5). Hx CVA-->Chronic Assessment and Plan: * CT Head 07/13/17 was negative for bleed or acute process * On hold: Aspirin 81mg PO daily and Plavix 75mg PO daily * Crestor 10mg POqHS Status: Chronic (6) AD (Alzheimer's disease) Assessment and Plan: * Aricept 10 mg PO daily Status: Chronic (7) Anemia Assessment and Plan: * Likely secondary to Chronic Disease: CKD Stage III * Resume Ferrous Sulfate 325 mg PO daily. * Epocrit 10,000 unit IV MWF * HgB/Hct are stable * on hold aspirin/Plavix given hx of stroke Status: Chronic (8) Hx Left Gluteal abscess Assessment and Plan: * Was I&D by surgery team on 06/26/17 * Treated with Bactrim 800/160 PO Q12H for 7 days S/P discharge 06/27/17 Status: Chronic (9) HLD (hyperlipidemia) Assessment and Plan: * Lopid 600 mg PO BID * Patient takes Lipitor 80 mg PO HS which is not on formulary therefore Crestor 10 mg PO HS (renal dosed). Status: Chronic (10) HTN (hypertension) Assessment and Plan: * Toprol XL 50mg Po Daily Status: Chronic (11) Diabetes Assessment and Plan: * Diabetic Diet * Accuchecks QAC and HS * hold Aspirin 81mg Po daily * Crestor 10mg POqHS * [id number]: 8.3 Status: Chronic (12) History of hypothyroidism Assessment and Plan: * Levothyroxine 50 mcg PO daily * TSH, Free T4 are normal Status: Chronic (13) Overactive bladder Assessment and Plan: * Festerodine 8 mg PO 1x/day * Enlarged Prostate on CT Abdomen/Pelvis * PSA >23.3--->Will need to be follow-up by urology as outpatient with repeat PSA Status: Chronic (14) Hx of glaucoma Assessment and Plan: * Patient's home med Travatan ggt not on formulary. * Started Xalatan ggt in bilateral eyes. Status: Chronic (15) Hx of gastroesophageal reflux (GERD) Assessment and Plan: * Protonix 40 mg IV daily Status: Chronic (16) Thrombocytopenia (Normalized) Assessment and Plan: * Hold Aspirin 81mg PO daily and Plavix 75mg PO daily * Normalized (17) Prophylactic measure Assessment and Plan: * Protonix 40 mg PO daily * SCDs * Ascorbic Acid 250 mg PO daily * Florastor 250 mg PO 2x/day * Zofran 4 mg IV Q6H PRN N/V * PT eval in progress * Tolerating diet * Lyndsey Youssef (niece): [phone] * NPO after midnight for permcath placement.
--- NOTE | 2017-09-15 15:47 | CP.PCM.PCO ---
Physician Communication Note - Physician Communication Note Physician Communication Note: Family meeting tomorrow at 5:30pm
--- NOTE | 2017-09-15 15:55 | CP.PCM.CON ---
History of Present Illness - History of Present Illness History of Present Illness: 82 year old male with PMHx HTN, DM, HLD, CVA 2013, dementia, CKD who presents complaining of pain at the site of the permacath on the left side of his chest wall. Referred for ID eval and management Known to me from prev admissions appears comfortable cultures pending . PMHx: HTN, DM, HLD, CVA 2013, dementia, CKD, cholelithiasis, choledocholithiasis PSHx: Cholecystectomy, ERCP with removal of stent and sphincterotomy 07/13/17, Cardiac cath in 2012, L carotid surgery, ERCP, right hand surgery, non-emergent aortic dissection in 2015. Allergies: NKDA Social: denies tobacco, EtOH, drugs. Lives with , walks with cane. 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 Family Hx: HTN Review of Systems - Review of Systems All systems: reviewed and no additional remarkable complaints except - Constitutional Constitutional: As Per HPI - EENT Eyes: absent: As Per HPI, Blind Spots, Blurred Vision, Change in Vision, Decreased Night Vision, Diplopia, Discharge, Dry Eye, Exophthalmos, Floaters, Irritation, Itchy Eyes, Loss of Peripheral Vision, Pain, Photophobia, Requires Corrective Lenses, Sees Flashes, Spots in Vision, Tunnel Vision, Other Visual Disturbances, Loss of Vision, Other Ears: absent: As Per HPI, Decreased Hearing, Ear Discharge, Ear Pain, Tinnitus, Abnormal Hearing, Disequilibrium, Dizziness, Other Nose/Mouth/Throat: absent: As Per HPI, Epistaxis, Nasal Congestion, Nasal Discharge, Nasal Obstruction, Nasal Trauma, Nose Pain, Post Nasal Drip, Sinus Pain, Sinus Pressure, Bleeding Gums, Change in Voice, Dental Pain, Dry Mouth, Dysphagia, Halitosis, Hoarsness, Lip Swelling, Mouth Lesions, Mouth Pain, Odynophagia, Sore Throat, Throat Swelling, Tongue Swelling, Facial Pain, Neck Pain, Neck Mass, Other - Cardiovascular Cardiovascular: absent: As Per HPI, Acrocyanosis, Chest Pain, Chest Pain at Rest , Chest Pain with Activity, Claudication, Diaphoresis, Dyspnea, Dyspnea on Exertion, Edema, Irregular Heart Rhythm, Pain Radiating to Arm/Neck/Jaw, Leg Edema, Leg Ulcers, Lightheadedness, Orthopnea, Palpitations, Paroxysmal Nocturnal Dyspnea, Pedal Edema, Radiating Pain, Rapid Heart Rate, Slow Heart Rate, Syncope, Other - Respiratory Respiratory: absent: As Per HPI, Cough, Dyspnea, Hemoptysis, Dyspnea on Exertion , Wheezing, Snoring, Stridor, Pain on Inspiration, Chest Congestion, Excessive Mucous Production, Change in Mucous Color, Pain with Coughing, Other - Gastrointestinal Gastrointestinal: absent: As Per HPI, Abdominal Pain, Belching, Bloating, Change in Bowel Habits, Change in Stool Character, Coffee Ground Emesis, Constipation, Cramping, Diarrhea, Dyspepsia, Dysphagia, Early Satiety, Excessive Flatus, Fecal Incontinence, Heartburn, Hematemesis, Hematochezia, Loose Stools, Melena, Nausea, Odynophagia, Temesmus, Vomiting, Other - Genitourinary Genitourinary: absent: As Per HPI, Change in Urinary Stream, Difficulty Urinating, Dysuria, Flank Pain, Hematuria, Pyuria, Nocturia, Urinary Incontinence, Urinary Frequency, Urinary Hesitance, Urinary Urgency, Voiding Freq/Small Amts, Freq UTI, Hx Renal/Bladder Calculi, Hx /Renal Surgery, Bladder Distension, Other - Musculoskeletal Musculoskeletal: absent: As Per HPI, Abnormal Gait, Arthralgias, Atrophy, Back Pain, Deformity, Joint Swelling, Limited Range of Motion, Loss of Height, Muscle Cramps, Muscle Weakness, Myalgias, Neck Pain, Numbness, Radiating Pain into Limb, Stiffness, Tingling, Other - Integumentary Integumentary: As Per HPI - Neurological Neurological: absent: As Per HPI, Abnormal Gait, Abnormal Hearing, Abnormal Movements, Abnormal Speech, Behavioral Changes, Burning Sensations, Confusion, Convulsions, Disequilibrium, Dizziness, Numbness, Focal Weakness, Frequent Falls , Headaches, Lack of Coordination, Loss of Vision, Memory Loss, Paresthesias, Radicular Pain, Restless Legs, Sensory Deficit, Syncope, Tingling, Tremor, Vertigo, Weakness, Other Visual Disturbances, Other - Psychiatric Psychiatric: absent: As Per HPI, Abnormal Sleep Pattern, Anhedonia, Anxiety, Auditory Hallucinations, Behavioral Changes, Change in Appetite, Change in Libido, Confusion, Depression, Difficulty Concentrating, Hallucinations, Homicidal Ideation, Hopelessness, Irritability, Memory Loss, Mood Swings, Panic Attacks, Paranoia, Suicidal Ideation, Visual Hallucinations, Tactile Hallucinations, Other - Endocrine Endocrine: absent: As Per HPI, Change in Body Appearance, Change in Libido, Cold Intolorance, Deepening of Voice, Excessive Sweating, Fatigue, Flushing, Heat Intolorance, Increase in Ring/Shoe/Hat Size, Palpitations, Polydipsia, Polyphagia, Polyuria, Other - Hematologic/Lymphatic Hematologic: absent: As Per HPI, Easy Bleeding, Easy Bruising, Lymphadenopathy, Other Past Patient History - Infectious Disease Hx of Infectious Diseases: None - Tetanus Immunizations Tetanus Immunization: Unknown - Past Medical History & Family History Past Medical History?: Yes - Past Social History Smoking Status: Former Smoker - CARDIAC Hx Hypercholesterolemia: Yes Hx Hypertension: Yes - PULMONARY Hx Pneumonia: Yes (KLEBSIELLA PNEUMONIAE) - NEUROLOGICAL Hx Dementia: Yes - HEENT Hx HEENT Problems: Yes Hx Cataracts: Yes (SURGERY) - RENAL Hx Chronic Kidney Disease: Yes - ENDOCRINE/METABOLIC Hx Hypothyroidism: Yes - INTEGUMENTARY Hx Dermatological Problems: No - MUSCULOSKELETAL/RHEUMATOLOGICAL Hx Arthritis: Yes (BACK, BL KNEE) Hx Falls: No - GASTROINTESTINAL Hx Gastrointestinal Disorders: Yes (''STOMACH BACTERIA'') Hx Ulcer: Yes Other/Comment: CHOLEDOCHOLITHIASIS, CHOLANGITIS - GENITOURINARY/GYNECOLOGICAL Hx Genitourinary Disorders: No Hx Incontinence: Yes - PSYCHIATRIC Hx Substance Use: No - SURGICAL HISTORY Hx Surgeries: Yes Hx Cataract Extraction: Yes Other/Comment: LEFT BEHIND EAR SURGERY FROM BLOOD CLOTS ,RIGHT HAND SURGERY - ANESTHESIA Hx Anesthesia: Yes Hx Anesthesia Reactions: No Hx Malignant Hyperthermia: No Has any member of the family had a problem w/ anesthesia?: No Meds Allergies/Adverse Reactions: Allergies Allergy/AdvReac Type Severity Reaction Status Date / Time No Known Allergies Allergy Verified 07/13/17 10:45 - Medications Medications: Current Medications Acetaminophen (Tylenol 325mg Tab) 650 mg PO Q6 PRN PRN Reason: fever, pain Amlodipine Besylate (Norvasc) 10 mg PO DAILY [facility] Last Admin: 09/15/17 09:32 Dose: 10 mg Ascorbic Acid (Vitamin C 250 Mg Tab) 250 mg PO DAILY [facility] Last Admin: 09/15/17 09:32 Dose: 250 mg Aspirin (Aspirin Chewable) 81 mg PO DAILY [facility] Last Admin: 09/15/17 09:32 Dose: 81 mg Clopidogrel Bisulfate (Plavix) 75 mg PO DAILY [facility] Last Admin: 09/15/17 09:32 Dose: 75 mg Donepezil HCl (Aricept) 10 mg PO [facility] Famotidine (Pepcid) 20 mg PO BID [facility] Last Admin: 09/15/17 09:33 Dose: 20 mg Ferrous Sulfate (Feosol) 325 mg PO BID [facility] Last Admin: 09/15/17 09:32 Dose: 325 mg Heparin Sodium (Porcine) (Heparin) 5,000 units SC Q8 [facility] Last Admin: 09/15/17 06:08 Dose: 5,000 units Piperacillin Sod/Tazobactam Sod (Zosyn 2.25 Gm Iv Premix) 2.25 gm in 50 mls @ 100 mls/hr IVPB Q6H [facility] Last Admin: 09/15/17 15:01 Dose: 100 mls/hr Vancomycin/Sodium Chloride (Vancomycin 1 Gm/Ns 200 Ml) 1 gm in 200 mls @ 133 mls/hr IVPB Q24H [facility] Stop: 09/19/17 22:01 Last Admin: 09/14/17 22:58 Dose: 133 mls/hr Insulin Glargine (Lantus) 10 unit SC [facility] Last Admin: 09/14/17 22:58 Dose: Not Given Insulin Human Regular (Novolin R) 0 unit SC [facility] PRN Reason: Protocol Last Admin: 09/15/17 12:30 Dose: 2 unit Levothyroxine Sodium (Synthroid) 50 mcg PO DAILY@0630 [facility] Last Admin: 09/15/17 06:07 Dose: 50 mcg Metoprolol Succinate (Toprol Xl) 25 mg PO DAILY [facility] Last Admin: 09/15/17 09:33 Dose: 25 mg Tolterodine Tartrate (Detrol La) 4 mg PO DAILY [facility] Last Admin: 09/15/17 09:32 Dose: 4 mg Physical Exam - Constitutional Appears: Non-toxic, Chronically Ill - Head Exam Head Exam: ATRAUMATIC, NORMAL INSPECTION, NORMOCEPHALIC - Eye Exam Eye Exam: EOMI, PERRL. absent: Scleral icterus - ENT Exam ENT Exam: Mucous Membranes Dry, Normal Oropharynx, TM's Normal Bilaterally - Neck Exam Neck exam: Positive for: Normal Inspection. Negative for: Lymphadenopathy - Respiratory Exam Respiratory Exam: Decreased Breath Sounds, Clear to Auscultation Bilateral - Cardiovascular Exam Cardiovascular Exam: REGULAR RHYTHM, +S1, +S2 - GI/Abdominal Exam GI & Abdominal Exam: Diminished Bowel Sounds, Distended, Soft. absent: Guarding , Organomegaly, Tenderness - Rectal Exam Rectal Exam: Deferred - Exam Exam: NORMAL INSPECTION - Extremities Exam Extremities exam: Positive for: pedal pulses present. Negative for: calf tenderness, tenderness - Back Exam Back exam: absent: CVA tenderness (L), CVA tenderness (R), tenderness - Neurological Exam Neurological exam: Alert, CN II-XII Intact, Motor Sensory Deficit, Oriented x3 - Psychiatric Exam Psychiatric exam: Normal Mood - Skin Skin Exam: Dry Results - Vital Signs Recent Vital Signs: Last Vital Signs Temp 98.3 F 09/15/17 07:57 Pulse 70 09/15/17 07:57 Resp 20 09/15/17 07:57 BP 131/66 09/15/17 07:57 Pulse Ox 100 09/15/17 07:57 - Labs Result Diagrams: 09/15/17 06:28 09/15/17 06:28 Labs: Laboratory Results - last 24 hr 09/14/17 09/14/17 09/14/17 16:37 16:37 22:45 WBC 8.7 RBC 4.02 L Hgb 11.5 L D Hct 34.9 L MCV 86.9 MCH 28.7 MCHC 33.0 RDW 15.6 H Plt Count 244 MPV 8.1 Neut % (Auto) 56.0 Lymph % (Auto) 34.4 [place] % (Auto) 6.7 Eos % (Auto) 1.9 Baso % (Auto) 1.0 Neut # 4.9 Lymph # 3.0 [place] # 0.6 Eos # 0.2 Baso # 0.1 APTT Sodium 134 Potassium 5.5 H Chloride 102 Carbon Dioxide 22 Anion Gap 15 BUN 21 H Creatinine 1.3 Est GFR ( Amer) > 60 Est GFR (Non-Af Amer) 53 POC Glucose (mg/dL) 91 Random Glucose 201 H Calcium 9.1 Phosphorus Magnesium Total Bilirubin 0.8 AST 42 ALT 16 L D Alkaline Phosphatase 73 Total Protein 7.3 Albumin 3.8 Globulin 3.5 Albumin/Globulin Ratio 1.1 09/15/17 09/15/17 09/15/17 06:28 06:28 06:28 WBC 9.1 RBC 3.56 L Hgb 10.5 L Hct 30.4 L MCV 85.4 MCH 29.6 MCHC 34.6 RDW 15.8 H Plt Count 237 MPV 8.2 Neut % (Auto) 63.1 Lymph % (Auto) 26.6 [place] % (Auto) 6.3 Eos % (Auto) 2.9 Baso % (Auto) 1.1 Neut # 5.8 Lymph # 2.4 [place] # 0.6 Eos # 0.3 Baso # 0.1 APTT 30 Sodium 134 Potassium 3.6 Chloride 105 Carbon Dioxide 21 L Anion Gap 12 BUN 16 Creatinine 1.2 Est GFR ( Amer) > 60 Est GFR (Non-Af Amer) 58 POC Glucose (mg/dL) Random Glucose 112 H Calcium 8.4 L Phosphorus 4.0 Magnesium 1.2 L Total Bilirubin 0.6 AST 22 ALT 13 L Alkaline Phosphatase 77 Total Protein 6.0 L Albumin 3.1 L Globulin 2.9 Albumin/Globulin Ratio 1.1 09/15/17 06:55 WBC RBC Hgb Hct MCV MCH MCHC RDW Plt Count MPV Neut % (Auto) Lymph % (Auto) [place] % (Auto) Eos % (Auto) Baso % (Auto) Neut # Lymph # [place] # Eos # Baso # APTT Sodium Potassium Chloride Carbon Dioxide Anion Gap BUN Creatinine Est GFR ( Amer) Est GFR (Non-Af Amer) POC Glucose (mg/dL) 106 Random Glucose Calcium Phosphorus Magnesium Total Bilirubin AST ALT Alkaline Phosphatase Total Protein Albumin Globulin Albumin/Globulin Ratio Assessment & Plan (1) Cellulitis Status: Acute (2) ESRD (end stage renal disease) Status: Acute (3) AD (Alzheimer's disease) Status: Acute - Assessment and Plan (Free Text) Assessment: cont iv rx await cultures Line no longer needed consider D/C Vanco if cultures negative monitor levels
[2017-09-15 17:18] LABS: FUNCTIONING PLTS 131 K/uL; PLT BASE COUNT 258 K/uL; PLT(ADP) 127 K/uL
--- NOTE | 2017-09-15 17:55 | CP.PCM.CON ---
History of Present Illness - History of Present Illness History of Present Illness: This is an 82 year old male with PMHx HTN, DM, HLD, CVA 2013, dementia, CKD who presents complaining of pain at the site of the permacath on the left side of his chest wall. Patient's niece was at bedside. Per his niece, patient had the permacath placed and was getting dialysis. However, per the niece, patient no longer needed dialysis as of two weeks ago. At around this time as well, patient first began noticing erythema and itchiness. Patient describes the pain as a strong sharp pain without radiation. He cannot quantify on a pain scale how much exactly it hurts but he does state that it is constant. The itchiness is intermittent. Patient denies fevers, chills, chest pain, dyspnea, abdominal pain, dysuria. No sick contacts, but of note, patient was recently hospitalized with a MRSA infection in the left buttocks. Pt was started on HD last admission 2 months ago when admitted for post ERCP complications including cardiac arrest. No HD x 2 weeks. PMHx: HTN, DM, HLD, CVA 2013, dementia, CKD, cholelithiasis, choledocholithiasis PSHx: Cholecystectomy, ERCP with removal of stent and sphincterotomy 07/13/17, Cardiac cath in 2012, L carotid surgery, ERCP, right hand surgery, non-emergent aortic dissection in 2015. Allergies: NKDA Social: denies tobacco, EtOH, drugs. Lives with , walks with cane. 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 Family Hx: HTN Review of Systems - Constitutional Constitutional: Chills, Fatigue - EENT Eyes: As Per HPI Nose/Mouth/Throat: As Per HPI - Cardiovascular Cardiovascular: As Per HPI - Gastrointestinal Gastrointestinal: As Per HPI - Genitourinary Genitourinary: As Per HPI - Musculoskeletal Musculoskeletal: As Per HPI - Integumentary Integumentary: As Per HPI - Neurological Neurological: As Per HPI Past Patient History - Infectious Disease Hx of Infectious Diseases: None - Tetanus Immunizations Tetanus Immunization: Unknown - Past Medical History & Family History Past Medical History?: Yes - Past Social History Smoking Status: Former Smoker - CARDIAC Hx Hypercholesterolemia: Yes Hx Hypertension: Yes - PULMONARY Hx Pneumonia: Yes (KLEBSIELLA PNEUMONIAE) - NEUROLOGICAL Hx Dementia: Yes - HEENT Hx HEENT Problems: Yes Hx Cataracts: Yes (SURGERY) - RENAL Hx Chronic Kidney Disease: Yes - ENDOCRINE/METABOLIC Hx Hypothyroidism: Yes - INTEGUMENTARY Hx Dermatological Problems: No - MUSCULOSKELETAL/RHEUMATOLOGICAL Hx Arthritis: Yes (BACK, BL KNEE) Hx Falls: No - GASTROINTESTINAL Hx Gastrointestinal Disorders: Yes (''STOMACH BACTERIA'') Hx Ulcer: Yes Other/Comment: CHOLEDOCHOLITHIASIS, CHOLANGITIS - GENITOURINARY/GYNECOLOGICAL Hx Genitourinary Disorders: No Hx Incontinence: Yes - PSYCHIATRIC Hx Substance Use: No - SURGICAL HISTORY Hx Surgeries: Yes Hx Cataract Extraction: Yes Other/Comment: LEFT BEHIND EAR SURGERY FROM BLOOD CLOTS ,RIGHT HAND SURGERY - ANESTHESIA Hx Anesthesia: Yes Hx Anesthesia Reactions: No Hx Malignant Hyperthermia: No Has any member of the family had a problem w/ anesthesia?: No Meds Allergies/Adverse Reactions: Allergies Allergy/AdvReac Type Severity Reaction Status Date / Time No Known Allergies Allergy Verified 07/13/17 10:45 - Medications Medications: Current Medications Acetaminophen (Tylenol 325mg Tab) 650 mg PO Q6 PRN PRN Reason: fever, pain Amlodipine Besylate (Norvasc) 10 mg PO DAILY [facility] Last Admin: 09/15/17 09:32 Dose: 10 mg Ascorbic Acid (Vitamin C 250 Mg Tab) 250 mg PO DAILY [facility] Last Admin: 09/15/17 09:32 Dose: 250 mg Aspirin (Aspirin Chewable) 81 mg PO DAILY [facility] Last Admin: 09/15/17 09:32 Dose: 81 mg Clopidogrel Bisulfate (Plavix) 75 mg PO DAILY [facility] Last Admin: 09/15/17 09:32 Dose: 75 mg Donepezil HCl (Aricept) 10 mg PO [facility] Famotidine (Pepcid) 20 mg PO BID [facility] Last Admin: 09/15/17 17:20 Dose: 20 mg Ferrous Sulfate (Feosol) 325 mg PO BID [facility] Last Admin: 09/15/17 17:20 Dose: 325 mg Heparin Sodium (Porcine) (Heparin) 5,000 units SC Q8 [facility] Last Admin: 09/15/17 06:08 Dose: 5,000 units Piperacillin Sod/Tazobactam Sod (Zosyn 2.25 Gm Iv Premix) 2.25 gm in 50 mls @ 100 mls/hr IVPB Q6H [facility] Last Admin: 09/15/17 15:01 Dose: 100 mls/hr Vancomycin/Sodium Chloride (Vancomycin 1 Gm/Ns 200 Ml) 1 gm in 200 mls @ 133 mls/hr IVPB Q24H [facility] Stop: 09/19/17 22:01 Last Admin: 09/14/17 22:58 Dose: 133 mls/hr Insulin Glargine (Lantus) 10 unit SC HS [facility] Last Admin: 09/14/17 22:58 Dose: Not Given Insulin Human Regular (Novolin R) 0 unit SC ACHS [facility] PRN Reason: Protocol Last Admin: 09/15/17 17:20 Dose: 1 unit Levothyroxine Sodium (Synthroid) 50 mcg PO DAILY@0630 [facility] Last Admin: 09/15/17 06:07 Dose: 50 mcg Metoprolol Succinate (Toprol Xl) 25 mg PO DAILY [facility] Last Admin: 09/15/17 09:33 Dose: 25 mg Tolterodine Tartrate (Detrol La) 4 mg PO DAILY [facility] Last Admin: 09/15/17 09:32 Dose: 4 mg Physical Exam - Constitutional Appears: Non-toxic, No Acute Distress, Chronically Ill - Head Exam Head Exam: NORMAL INSPECTION - Eye Exam Eye Exam: Normal appearance, PERRL - ENT Exam ENT Exam: Mucous Membranes Moist, Normal Exam - Neck Exam Neck exam: Positive for: Normal Inspection - Respiratory Exam Respiratory Exam: Clear to Auscultation Bilateral, NORMAL BREATHING PATTERN - Cardiovascular Exam Cardiovascular Exam: REGULAR RHYTHM, RRR (rt sided permcath w/ no discharge from exit site. +tenderness on palpation) - GI/Abdominal Exam GI & Abdominal Exam: Normal Bowel Sounds, Soft - Extremities Exam Extremities exam: Positive for: normal inspection, pedal pulses present - Neurological Exam Neurological exam: Alert, Oriented x3 - Skin Skin Exam: Dry, Intact, Warm Results - Vital Signs Recent Vital Signs: Last Vital Signs Temp 98.3 F 09/15/17 07:57 Pulse 70 09/15/17 07:57 Resp 20 09/15/17 07:57 BP 131/66 09/15/17 07:57 Pulse Ox 100 09/15/17 07:57 - Labs Result Diagrams: 09/15/17 06:28 09/15/17 06:28 Labs: Laboratory Results - last 24 hr 09/14/17 09/15/17 09/15/17 22:45 06:28 06:28 WBC 9.1 RBC 3.56 L Hgb 10.5 L Hct 30.4 L MCV 85.4 MCH 29.6 MCHC 34.6 RDW 15.8 H Plt Count 237 MPV 8.2 Neut % (Auto) 63.1 Lymph % (Auto) 26.6 [place] % (Auto) 6.3 Eos % (Auto) 2.9 Baso % (Auto) 1.1 Neut # 5.8 Lymph # 2.4 [place] # 0.6 Eos # 0.3 Baso # 0.1 APTT 30 Plt Function Assay Sodium Potassium Chloride Carbon Dioxide Anion Gap BUN Creatinine Est GFR ( Amer) Est GFR (Non-Af Amer) POC Glucose (mg/dL) 91 Random Glucose Calcium Phosphorus Magnesium Total Bilirubin AST ALT Alkaline Phosphatase Total Protein Albumin Globulin Albumin/Globulin Ratio 09/15/17 09/15/17 09/15/17 06:28 06:55 11:07 WBC RBC Hgb Hct MCV MCH MCHC RDW Plt Count MPV Neut % (Auto) Lymph % (Auto) [place] % (Auto) Eos % (Auto) Baso % (Auto) Neut # Lymph # [place] # Eos # Baso # APTT Plt Function Assay Sodium 134 Potassium 3.6 Chloride 105 Carbon Dioxide 21 L Anion Gap 12 BUN 16 Creatinine 1.2 Est GFR ( Amer) > 60 Est GFR (Non-Af Amer) 58 POC Glucose (mg/dL) 106 248 H Random Glucose 112 H Calcium 8.4 L Phosphorus 4.0 Magnesium 1.2 L Total Bilirubin 0.6 AST 22 ALT 13 L Alkaline Phosphatase 77 Total Protein 6.0 L Albumin 3.1 L Globulin 2.9 Albumin/Globulin Ratio 1.1 09/15/17 09/15/17 16:18 17:02 WBC RBC Hgb Hct MCV MCH MCHC RDW Plt Count MPV Neut % (Auto) Lymph % (Auto) [place] % (Auto) Eos % (Auto) Baso % (Auto) Neut # Lymph # [place] # Eos # Baso # APTT Plt Function Assay 131 Sodium Potassium Chloride Carbon Dioxide Anion Gap BUN Creatinine Est GFR ( Amer) Est GFR (Non-Af Amer) POC Glucose (mg/dL) 187 H Random Glucose Calcium Phosphorus Magnesium Total Bilirubin AST ALT Alkaline Phosphatase Total Protein Albumin Globulin Albumin/Globulin Ratio Assessment & Plan (1) Infection, dialysis vascular access Status: Acute (2) Diabetes Status: Chronic (3) History of anemia Status: Chronic (4) History of hypertension Status: Chronic (5) History of urinary incontinence Status: Chronic - Assessment and Plan (Free Text) Assessment: - iv broad spectrum antibiotics -follow blood cultures -permcath removal -no indication for hd as of now 24 hour clearance ordered urinalysis
[2017-09-15] MEDS: (Lantus) Insulin Glargine, Recombinant SC SCH (21:14)
[2017-09-15] MEDS: Vancomycin 1 gm/NS 200 ml 1 GM/200 ML BAG IVPB SCH (22:02)
[2017-09-16] MEDS: Piperacill/Tazo 2.25gm in Dex 2.25 GM/50 ML BAG IVPB SCH ×4 (02:34→21:24)
[2017-09-16] MEDS: Levothyroxine 50 MCG TAB PO SCH (06:23)
--- NOTE | 2017-09-16 07:44 | CP.PCM.PCO ---
Physician Communication Note - Physician Communication Note Physician Communication Note: Repeat EKG shows prolonged QT (above 450). D/c Tolderol. Awaiting CMP.
[2017-09-16 08:24] LABS: SQUAMOUS EPITHIAL < 1 /hpf (0-5); URINE BILIRUBIN NEGATIVE (NEGATIVE); URINE BLOOD NEGATIVE (NEGATIVE); URINE CLARITY Clear (Clear); URINE COLOR Straw (YELLOW); URINE GLUCOSE (UA) NORMAL (Normal); URINE LEUKOCYTE ESTERASE NEG Leu/uL (Negative); URINE NITRATE NEGATIVE (NEGATIVE); URINE PROTEIN NEGATIVE (NEGATIVE); URINE UROBILINOGEN NORMAL mg/dL (0.2-1.0)
[2017-09-16] MEDS: (Novolin R) Insulin Human Regular 100 units/ml vial SC SCH ×4 (08:30→21:27)
--- NOTE | 2017-09-16 08:38 | RAD ---
HISTORY: baseline COMPARISON: 07/29/2017 FINDINGS: LUNGS: No active pulmonary disease. PLEURA: No significant pleural effusion identified, no pneumothorax apparent. CARDIOVASCULAR: Normal heart size. Central venous dialysis catheter. No congestive change. OSSEOUS STRUCTURES: No significant abnormalities. VISUALIZED UPPER ABDOMEN: Normal. OTHER FINDINGS: None. IMPRESSION: No active disease.
[2017-09-16 09:02] LABS: EOS # 0.2 K/uL (0.0-0.7); EOS % 2.9 % (0.0-4.0); HEMOGLOBIN 10.7 g/dL (12.0-18.0); LYMPH # 2.5 K/uL (1.0-4.3); MEAN CORPUSCULAR HEMOGLOBIN 28.7 pg (27.0-31.0); RBC 3.73 Mil/uL (4.40-5.90); WHITE BLOOD COUNT 8.2 K/uL (4.8-10.8)
[2017-09-16 09:08] LABS: BASO # 0.1 K/uL (0.0-0.2); BASO % 1.1 % (0.0-2.0); LYMPH % 30.9 % (20.0-40.0); MEAN CELL VOLUME 86.1 fL (80.0-94.0); MEAN CORPUSCULAR HGB CONC 33.3 g/dL (33.0-37.0); MEAN PLATELET VOLUME 8.3 fL (7.2-11.7); MONO # 0.7 K/uL (0.0-0.8); MONO % 8.7 % (0.0-10.0); NEUT # 4.6 K/uL (1.8-7.0); NEUT % 56.4 % (50.0-75.0); RED CELL DISTRIBUTION WIDTH 16.1 % (11.5-14.5)
[2017-09-16 09:09] LABS: PROTHROMBIN TIME 11.3 SECONDS (9.7-12.2)
[2017-09-16] MEDS ORDERED: Bupivacaine HCl 0.25% PF (10 ml) Inj ONE (09:13)
[2017-09-16 09:28] LABS: ALB/GLOB RATIO 1.2 (1.0-2.1); ALBUMIN 3.3 g/dL (3.5-5.0); CALCIUM 8.5 mg/dl (8.6-10.4); MAGNESIUM 1.8 mg/dL (1.6-2.3)
[2017-09-16] MEDS ORDERED: Lactated Ringer's 1,000 ML IV ONE (09:30)
[2017-09-16] MEDS: Metoprolol Succinate 25 mg XL Tab PO SCH (09:33)
[2017-09-16] MEDS ORDERED: Pneumococcal 23-Valent Vaccine IM ONE (10:00)
--- NOTE | 2017-09-16 10:15 | PCM.SURG1 ---
Surgeon's Initial Post Op Note - Surgeon's Notes Surgeon: Dr. Boyce Systems Programmer: Smita PGY1 Type of Anesthesia: IV Sedation Pre-Operative Diagnosis: Acute renal failure requiring dialysis Operative Findings: see operative report Post-Operative Diagnosis: Acute renal failure requiring dialysis Operation Performed: Permacath removal Specimen/Specimens Removed: Permacath Estimated Blood Loss: EBL {In ML}: 2 Blood Products Given: N/A Drains Used: No Drains Post-Op Condition: Good Date of Surgery/Procedure: 09/16/17 Time of Surgery/Procedure: 09:45
[2017-09-16] MEDS ORDERED: Oxycodone/Acetaminophen 5/325 mg Tab PO PRN (10:17)
--- NOTE | 2017-09-16 11:26 | OP ---
PROCEDURE DATE: 09/16/2017 PREOPERATIVE DIAGNOSES: 1. Infected PermCath. 2. Resolved renal failure and no need for dialysis. POSTOPERATIVE DIAGNOSES: 1. Infected PermCath. 2. Resolved renal failure and no need for dialysis. PROCEDURE: PermCath removal. SURGEON: Manohar Boyce MD ROLLER PNEUMATIC: Marcelino Ordoñez. TYPE OF ANESTHESIA: Location anesthesia plus sedation. ESTIMATED BLOOD LOSS: Around 2 mL. DRAINS: None. PATHOLOGY: PermCath was sent for the gross pathology. COMPLICATIONS: None. INTRAOPERATIVE FINDINGS: The patient had some cellulitis surrounding the entry of the PermCath site. There was no pus identified. DESCRIPTION OF PROCEDURE: On intraoperative steps, this 82-year-old male who was diagnosed with possible infection around the PermCath site and the patient had pain around the PermCath insertion site and as per the inpatient pharmacist, the patient does not need any more dialysis due to the resolved renal failure and the patient was consented for the PermCath removal, brought to the OR, placed supine on the operating table. After induction of the sedation, the local anesthesia was injected and the trach was dilated and there was no pus identified and PermCath was removed completely and it was sent to the table for the pathology. The proper hemostasis was achieved. The entry site was closed with 2-0 Vicryl and in left open and dry sterile dressing was applied. The patient tolerated the procedure well. Count of instrument and gauze was correct. There was no apparent complication. Manohar Boyce MD
--- NOTE | 2017-09-16 13:42 | CP.PCM.CON ---
History of Present Illness - History of Present Illness History of Present Illness: Palliative consult requested for goals of care discussion Patient is a 82 o male admitted to the hospital post HD complaining of pain to left upper chest where the port-o-cath was. Patient was given temporally HD due complications caused by cardiac arrest post ERCP procedure. patient has been off HD for 2 weeks now. Upon admission patient was empirically started on Vanco IV X 2 days due to recent hx of MRSA. Port-o-cath was removed today and no pus was noted, just the cellulitis in surrounding area as per OR report. PMH: CVA, dementia, arthritis, DM, pneumonia, post HD Fam. Hx: marrid, lives at home, has a nursing home aide for 3 hr a day, ambulates using cane Fam. Hx: denied Review of Systems - Constitutional Constitutional: absent: As Per HPI, Anorexia, Chills, Daytime Sleepiness, Excessive Sweating, Fatigue, Fever, Frequent Falls, Headache, Increased Appetite , Lethargy, Malaise, Night Sweats, Snoring, Sleep Apnea, Weight Gain, Weight Loss, Weakness, Other - EENT Eyes: absent: As Per HPI, Blind Spots, Blurred Vision, Change in Vision, Decreased Night Vision, Diplopia, Discharge, Dry Eye, Exophthalmos, Floaters, Irritation, Itchy Eyes, Loss of Peripheral Vision, Pain, Photophobia, Requires Corrective Lenses, Sees Flashes, Spots in Vision, Tunnel Vision, Other Visual Disturbances, Loss of Vision, Other Ears: absent: As Per HPI, Decreased Hearing, Ear Discharge, Ear Pain, Tinnitus, Abnormal Hearing, Disequilibrium, Dizziness, Other Nose/Mouth/Throat: absent: As Per HPI, Epistaxis, Nasal Congestion, Nasal Discharge, Nasal Obstruction, Nasal Trauma, Nose Pain, Post Nasal Drip, Sinus Pain, Sinus Pressure, Bleeding Gums, Change in Voice, Dental Pain, Dry Mouth, Dysphagia, Halitosis, Hoarsness, Lip Swelling, Mouth Lesions, Mouth Pain, Odynophagia, Sore Throat, Throat Swelling, Tongue Swelling, Facial Pain, Neck Pain, Neck Mass, Other - Cardiovascular Cardiovascular: absent: As Per HPI, Acrocyanosis, Chest Pain, Chest Pain at Rest , Chest Pain with Activity, Claudication, Diaphoresis, Dyspnea, Dyspnea on Exertion, Edema, Irregular Heart Rhythm, Pain Radiating to Arm/Neck/Jaw, Leg Edema, Leg Ulcers, Lightheadedness, Orthopnea, Palpitations, Paroxysmal Nocturnal Dyspnea, Pedal Edema, Radiating Pain, Rapid Heart Rate, Slow Heart Rate, Syncope, Other - Respiratory Respiratory: absent: As Per HPI, Cough, Dyspnea, Hemoptysis, Dyspnea on Exertion , Wheezing, Snoring, Stridor, Pain on Inspiration, Chest Congestion, Excessive Mucous Production, Change in Mucous Color, Pain with Coughing, Other - Gastrointestinal Gastrointestinal: absent: As Per HPI, Abdominal Pain, Belching, Bloating, Change in Bowel Habits, Change in Stool Character, Coffee Ground Emesis, Constipation, Cramping, Diarrhea, Dyspepsia, Dysphagia, Early Satiety, Excessive Flatus, Fecal Incontinence, Heartburn, Hematemesis, Hematochezia, Loose Stools, Melena, Nausea, Odynophagia, Temesmus, Vomiting, Other - Genitourinary Genitourinary: absent: As Per HPI, Change in Urinary Stream, Difficulty Urinating, Dysuria, Flank Pain, Hematuria, Pyuria, Nocturia, Urinary Incontinence, Urinary Frequency, Urinary Hesitance, Urinary Urgency, Voiding Freq/Small Amts, Freq UTI, Hx Renal/Bladder Calculi, Hx /Renal Surgery, Bladder Distension, Other - Musculoskeletal Musculoskeletal: Stiffness - Integumentary Integumentary: absent: As Per HPI, Acne, Alopecia, Bleeding Lesions, Change in Hair, Change in Nails, Change in Pigmentation, Changing Lesions, Dry Skin, Erythema, Furuncle, Hirsutism, Lesions, New Lesions, Non-Healing Lesions, Photosensitivity, Pruritus, Rash, Skin Pain, Skin Ulcer, Sores, Striae, Swelling , Unusual Bruising, Wounds, Jaundice, Other - Neurological Neurological: absent: As Per HPI, Abnormal Gait, Abnormal Hearing, Abnormal Movements, Abnormal Speech, Behavioral Changes, Burning Sensations, Confusion, Convulsions, Disequilibrium, Dizziness, Numbness, Focal Weakness, Frequent Falls , Headaches, Lack of Coordination, Loss of Vision, Memory Loss, Paresthesias, Radicular Pain, Restless Legs, Sensory Deficit, Syncope, Tingling, Tremor, Vertigo, Weakness, Other Visual Disturbances, Other - Psychiatric Psychiatric: absent: As Per HPI, Abnormal Sleep Pattern, Anhedonia, Anxiety, Auditory Hallucinations, Behavioral Changes, Change in Appetite, Change in Libido, Confusion, Depression, Difficulty Concentrating, Hallucinations, Homicidal Ideation, Hopelessness, Irritability, Memory Loss, Mood Swings, Panic Attacks, Paranoia, Suicidal Ideation, Visual Hallucinations, Tactile Hallucinations, Other - Endocrine Endocrine: absent: As Per HPI, Change in Body Appearance, Change in Libido, Cold Intolorance, Deepening of Voice, Excessive Sweating, Fatigue, Flushing, Heat Intolorance, Increase in Ring/Shoe/Hat Size, Palpitations, Polydipsia, Polyphagia, Polyuria, Other - Hematologic/Lymphatic Hematologic: absent: As Per HPI, Easy Bleeding, Easy Bruising, Lymphadenopathy, Other Past Patient History - Infectious Disease Hx of Infectious Diseases: None - Tetanus Immunizations Tetanus Immunization: Unknown - Past Medical History & Family History Past Medical History?: Yes - Past Social History Smoking Status: Former Smoker - CARDIAC Hx Hypercholesterolemia: Yes Hx Hypertension: Yes - PULMONARY Hx Pneumonia: Yes (KLEBSIELLA PNEUMONIAE) - NEUROLOGICAL Hx Dementia: Yes - HEENT Hx HEENT Problems: Yes Hx Cataracts: Yes (SURGERY) - RENAL Hx Chronic Kidney Disease: Yes - ENDOCRINE/METABOLIC Hx Hypothyroidism: Yes - INTEGUMENTARY Hx Dermatological Problems: No - MUSCULOSKELETAL/RHEUMATOLOGICAL Hx Arthritis: Yes (BACK, BL KNEE) Hx Falls: No - GASTROINTESTINAL Hx Gastrointestinal Disorders: Yes (''STOMACH BACTERIA'') Hx Ulcer: Yes Other/Comment: CHOLEDOCHOLITHIASIS, CHOLANGITIS - GENITOURINARY/GYNECOLOGICAL Hx Genitourinary Disorders: No Hx Incontinence: Yes - PSYCHIATRIC Hx Substance Use: No - SURGICAL HISTORY Hx Surgeries: Yes Hx Cataract Extraction: Yes Other/Comment: LEFT BEHIND EAR SURGERY FROM BLOOD CLOTS ,RIGHT HAND SURGERY - ANESTHESIA Hx Anesthesia: Yes Hx Anesthesia Reactions: No Hx Malignant Hyperthermia: No Has any member of the family had a problem w/ anesthesia?: No Meds Allergies/Adverse Reactions: Allergies Allergy/AdvReac Type Severity Reaction Status Date / Time No Known Allergies Allergy Verified 07/13/17 10:45 - Medications Medications: Current Medications Amlodipine Besylate (Norvasc) 10 mg PO DAILY [facility] Last Admin: 09/16/17 09:32 Dose: Not Given Ascorbic Acid (Vitamin C 250 Mg Tab) 250 mg PO DAILY [facility] Last Admin: 09/16/17 09:33 Dose: Not Given Aspirin (Aspirin Chewable) 81 mg PO DAILY [facility] Last Admin: 09/15/17 09:32 Dose: 81 mg Clopidogrel Bisulfate (Plavix) 75 mg PO DAILY [facility] Last Admin: 09/15/17 09:32 Dose: 75 mg Donepezil HCl (Aricept) 10 mg PO [facility] Last Admin: 09/15/17 21:14 Dose: 10 mg Famotidine (Pepcid) 20 mg PO DAILY [facility] Ferrous Sulfate (Feosol) 325 mg PO BID [facility] Last Admin: 09/16/17 09:32 Dose: Not Given Heparin Sodium (Porcine) (Heparin) 5,000 units SC Q8 [facility] Last Admin: 09/15/17 06:08 Dose: 5,000 units Piperacillin Sod/Tazobactam Sod (Zosyn 2.25 Gm Iv Premix) 2.25 gm in 50 mls @ 100 mls/hr IVPB Q6H [facility] Last Admin: 09/16/17 08:58 Dose: Not Given Vancomycin/Sodium Chloride (Vancomycin 1 Gm/Ns 200 Ml) 1 gm in 200 mls @ 133 mls/hr IVPB Q24H [facility] Stop: 09/19/17 22:01 Last Admin: 09/15/17 22:02 Dose: 133 mls/hr Insulin Glargine (Lantus) 10 unit SC [facility] Last Admin: 09/15/17 21:14 Dose: 10 unit Insulin Human Regular (Novolin R) 0 unit SC [facility] PRN Reason: Protocol Last Admin: 09/16/17 12:08 Dose: Not Given Levothyroxine Sodium (Synthroid) 50 mcg PO DAILY@0630 [facility] Last Admin: 09/16/17 06:23 Dose: 50 mcg Metoprolol Succinate (Toprol Xl) 25 mg PO DAILY [facility] Last Admin: 09/16/17 09:33 Dose: Not Given Oxycodone/Acetaminophen (Percocet 5/325 Mg Tab) 1 tab PO Q4H PRN PRN Reason: Pain, moderate (4-7) Stop: 09/19/17 10:18 Physical Exam - Constitutional Appears: No Acute Distress - Head Exam Head Exam: ATRAUMATIC, NORMAL INSPECTION, NORMOCEPHALIC - Eye Exam Eye Exam: EOMI, Normal appearance, PERRL Pupil Exam: NORMAL ACCOMODATION, PERRL - ENT Exam ENT Exam: Mucous Membranes Moist, Normal Exam - Neck Exam Neck exam: Positive for: Normal Inspection - Respiratory Exam Respiratory Exam: Decreased Breath Sounds, Clear to Auscultation Bilateral, NORMAL BREATHING PATTERN - Cardiovascular Exam Cardiovascular Exam: REGULAR RHYTHM - GI/Abdominal Exam GI & Abdominal Exam: Normal Bowel Sounds, Soft - Rectal Exam Rectal Exam: Deferred - Extremities Exam Extremities exam: Positive for: normal inspection - Back Exam Back exam: NORMAL INSPECTION - Neurological Exam Neurological exam: Alert, Altered - Psychiatric Exam Psychiatric exam: Flat Affect - Skin Skin Exam: Normal Color, Warm Additional comments: Upper chest dressing Results - Vital Signs Recent Vital Signs: Last Vital Signs Temp 97.7 F 09/16/17 11:00 Pulse 68 09/16/17 11:00 Resp 14 09/16/17 11:00 BP 111/60 09/16/17 11:00 Pulse Ox 100 09/16/17 11:00 - Labs Result Diagrams: 09/16/17 08:58 09/16/17 08:58 Labs: Laboratory Results - last 24 hr 09/15/17 09/15/17 09/15/17 11:07 16:18 17:02 WBC RBC Hgb Hct MCV MCH MCHC RDW Plt Count MPV Neut % (Auto) Lymph % (Auto) [place] % (Auto) Eos % (Auto) Baso % (Auto) Neut # Lymph # [place] # Eos # Baso # PT INR Plt Function Assay 131 Sodium Potassium Chloride Carbon Dioxide Anion Gap BUN Creatinine Est GFR ( Amer) Est GFR (Non-Af Amer) POC Glucose (mg/dL) 248 H 187 H Random Glucose Calcium Phosphorus Magnesium Total Bilirubin AST ALT Alkaline Phosphatase Total Protein Albumin Globulin Albumin/Globulin Ratio Urine Color Urine Clarity Urine pH Ur Specific [place] Urine Protein Urine Glucose (UA) Urine Ketones Urine Blood Urine Nitrate Urine Bilirubin Urine Urobilinogen Ur Leukocyte Esterase Urine RBC (Auto) Ur Squamous Epith Cells Random Vancomycin 09/15/17 09/16/17 09/16/17 21:16 02:17 07:37 WBC RBC Hgb Hct MCV MCH MCHC RDW Plt Count MPV Neut % (Auto) Lymph % (Auto) [place] % (Auto) Eos % (Auto) Baso % (Auto) Neut # Lymph # [place] # Eos # Baso # PT INR Plt Function Assay Sodium Potassium Chloride Carbon Dioxide Anion Gap BUN Creatinine Est GFR ( Amer) Est GFR (Non-Af Amer) POC Glucose (mg/dL) 163 H 165 H 118 H Random Glucose Calcium Phosphorus Magnesium Total Bilirubin AST ALT Alkaline Phosphatase Total Protein Albumin Globulin Albumin/Globulin Ratio Urine Color Urine Clarity Urine pH Ur Specific [place] Urine Protein Urine Glucose (UA) Urine Ketones Urine Blood Urine Nitrate Urine Bilirubin Urine Urobilinogen Ur Leukocyte Esterase Urine RBC (Auto) Ur Squamous Epith Cells Random Vancomycin 09/16/17 09/16/17 09/16/17 07:51 08:31 08:58 WBC 8.2 RBC 3.73 L Hgb 10.7 L Hct 32.1 L MCV 86.1 MCH 28.7 MCHC 33.3 RDW 16.1 H Plt Count 252 MPV 8.3 Neut % (Auto) 56.4 Lymph % (Auto) 30.9 [place] % (Auto) 8.7 Eos % (Auto) 2.9 Baso % (Auto) 1.1 Neut # 4.6 Lymph # 2.5 [place] # 0.7 Eos # 0.2 Baso # 0.1 PT INR Plt Function Assay Sodium Potassium Chloride Carbon Dioxide Anion Gap BUN Creatinine Est GFR ( Amer) Est GFR (Non-Af Amer) POC Glucose (mg/dL) Random Glucose Calcium Phosphorus Magnesium Total Bilirubin AST ALT Alkaline Phosphatase Total Protein Albumin Globulin Albumin/Globulin Ratio Urine Color Straw Urine Clarity Clear Urine pH 5.0 Ur Specific [place] 1.018 Urine Protein Negative Urine Glucose (UA) Normal Urine Ketones Negative Urine Blood Negative Urine Nitrate Negative Urine Bilirubin Negative Urine Urobilinogen Normal Ur Leukocyte Esterase Neg Urine RBC (Auto) < 1 Ur Squamous Epith Cells < 1 Random Vancomycin 21.79 09/16/17 09/16/17 08:58 08:58 WBC RBC Hgb Hct MCV MCH MCHC RDW Plt Count MPV Neut % (Auto) Lymph % (Auto) [place] % (Auto) Eos % (Auto) Baso % (Auto) Neut # Lymph # [place] # Eos # Baso # PT 11.3 INR 1.0 Plt Function Assay Sodium 133 Potassium 4.3 Chloride 105 Carbon Dioxide 22 Anion Gap 11 BUN 20 Creatinine 1.9 H Est GFR ( Amer) 41 Est GFR (Non-Af Amer) 34 POC Glucose (mg/dL) Random Glucose 131 H Calcium 8.5 L Phosphorus 3.6 Magnesium 1.8 Total Bilirubin 0.5 AST 20 ALT 21 D Alkaline Phosphatase 78 Total Protein 6.2 L Albumin 3.3 L Globulin 2.8 Albumin/Globulin Ratio 1.2 Urine Color Urine Clarity Urine pH Ur Specific [place] Urine Protein Urine Glucose (UA) Urine Ketones Urine Blood Urine Nitrate Urine Bilirubin Urine Urobilinogen Ur Leukocyte Esterase Urine RBC (Auto) Ur Squamous Epith Cells Random Vancomycin Assessment & Plan - Assessment and Plan (Free Text) Assessment: Palliative consult Code status Full Code, there is no advance directive on chart, PPS 20% I reviewed medical records on chart, all diagnostic studies, examined patient in the bed. Interview was limited due to patient's forgetfulness. Patient is S/p removal of port-o-cath in no acute distress. Alert, oriented X 3. Dressing to left upper chest. Patient denies any pain. Stated was hungry. Breath sounds normal, no added sounds. Abdomen soft. 24 hr urine collection was to began. Patient able to move all extremities. VS WNL, afebrile,BP 111/60, HR 68, O2sat 100%. Blood Cultures for Gram stain pending. BUN 20, crt1.9. Urine for Creatinin clearance and UA ordered and collection pending. I spoke over the phone to patient's Socorro who directed me to her niece Lyndsey as a spoke person. I elicited more information about patient's whereabouts from Lyndsey. She reported that at home patient was pretty much independent with minimal help from nursing home aide. He is and lives with his . Per Lyndsey, patent's relies on her for discussing the care . Goals of care discussed. would like patient to attend [facility] before going home as per nijose rafael Solorio. Code status discussed next. Patient does not have any Advance Directive as per alonzo, nor she was aware of any discussion between him and his regarding that matter. I reviewed the importance and benefices of having Advance care plan. Lyndsey was to discuss it with the before we meet for a family meeting. Impression * Patient is post Port-o-cath removal in no acute distress * Patient is alert, with some short term memory lack * No pain reported * Shows good appetite * Needs minimal assistance with ADLs * Family prefers him going to [facility] before discharge * Family wants extra time before Code status decided upon * prefers her niece Lyndsey ) to be a spoke person for patient Suggestion * Full Code, continue all needed care to support life * Code status to be further discussed with and niece * Discharge planing to [facility] as per family's preferences
[2017-09-16] MEDS: Sodium Chloride 0.9% 1,000 ML IV SCH (14:56)
--- NOTE | 2017-09-16 15:53 | CP.PCM.PN ---
<Jerson Putnam - Last Filed: 09/16/17 15:38> Subjective - Date & Time of Evaluation Date of Evaluation: 09/16/17 Time of Evaluation: 15:38 - Subjective Subjective: Patient has been seen and examined. No overnight events reported. PortaCath removed today. Patient has no complaints except for minimal tenderness at the port-a-cath site. Objective - Vital Signs/Intake and Output Vital Signs (last 24 hours): Temp Pulse Resp BP Pulse Ox 97.7 F 68 14 111/60 100 09/16/17 11:00 09/16/17 11:00 09/16/17 11:00 09/16/17 11:00 09/16/17 11:00 Intake and Output: 09/16/17 09/16/17 06:59 18:59 Intake Total 450 50 Output Total 350 Balance 450 -300 - Medications Medications: Current Medications Amlodipine Besylate (Norvasc) 10 mg PO DAILY [facility] Last Admin: 09/16/17 09:32 Dose: Not Given Ascorbic Acid (Vitamin C 250 Mg Tab) 250 mg PO DAILY [facility] Last Admin: 09/16/17 09:33 Dose: Not Given Aspirin (Aspirin Chewable) 81 mg PO DAILY [facility] Last Admin: 09/15/17 09:32 Dose: 81 mg Clopidogrel Bisulfate (Plavix) 75 mg PO DAILY [facility] Last Admin: 09/15/17 09:32 Dose: 75 mg Donepezil HCl (Aricept) 10 mg PO HS [facility] Last Admin: 09/15/17 21:14 Dose: 10 mg Famotidine (Pepcid) 20 mg PO DAILY [facility] Ferrous Sulfate (Feosol) 325 mg PO BID [facility] Last Admin: 09/16/17 09:32 Dose: Not Given Heparin Sodium (Porcine) (Heparin) 5,000 units SC Q8 [facility] Last Admin: 09/16/17 13:59 Dose: 5,000 units Piperacillin Sod/Tazobactam Sod (Zosyn 2.25 Gm Iv Premix) 2.25 gm in 50 mls @ 100 mls/hr IVPB Q6H [facility] Last Admin: 09/16/17 14:01 Dose: 100 mls/hr Vancomycin/Sodium Chloride (Vancomycin 1 Gm/Ns 200 Ml) 1 gm in 200 mls @ 133 mls/hr IVPB Q24H [facility] Stop: 09/19/17 22:01 Last Admin: 09/15/17 22:02 Dose: 133 mls/hr Sodium Chloride (Sodium Chloride 0.9%) 1,000 mls @ 50 mls/hr IV .Q20H [facility] Last Admin: 09/16/17 14:56 Dose: 50 mls/hr Insulin Glargine (Lantus) 10 unit SC HS [facility] Last Admin: 09/15/17 21:14 Dose: 10 unit Insulin Human Regular (Novolin R) 0 unit SC ACHS [facility] PRN Reason: Protocol Last Admin: 09/16/17 12:08 Dose: Not Given Levothyroxine Sodium (Synthroid) 50 mcg PO DAILY@0630 [facility] Last Admin: 09/16/17 06:23 Dose: 50 mcg Metoprolol Succinate (Toprol Xl) 25 mg PO DAILY [facility] Last Admin: 09/16/17 09:33 Dose: Not Given Oxycodone/Acetaminophen (Percocet 5/325 Mg Tab) 1 tab PO Q4H PRN PRN Reason: Pain, moderate (4-7) Stop: 09/19/17 10:18 - Labs Labs: 09/16/17 08:58 09/16/17 08:58 PT 11.3 SECONDS (9.7-12.2) 09/16/17 08:58 INR 1.0 09/16/17 08:58 APTT 30 SECONDS (21-34) 09/15/17 06:28 - Additional Findings Additional findings: - Constitutional Appears: No Acute Distress - Head Exam Head Exam: ATRAUMATIC, NORMAL INSPECTION, NORMOCEPHALIC - Eye Exam Eye Exam: EOMI, Normal appearance, PERRL Pupil Exam: NORMAL ACCOMODATION, PERRL - ENT Exam ENT Exam: Mucous Membranes Moist, Normal Exam - Neck Exam Neck exam: Positive for: Normal Inspection - Respiratory Exam Respiratory Exam: Decreased Breath Sounds, Clear to Auscultation Bilateral, NORMAL BREATHING PATTERN - Cardiovascular Exam Cardiovascular Exam: REGULAR RHYTHM - GI/Abdominal Exam GI & Abdominal Exam: Normal Bowel Sounds, Soft - Rectal Exam Rectal Exam: Deferred - Extremities Exam Extremities exam: Positive for: normal inspection - Back Exam Back exam: NORMAL INSPECTION - Neurological Exam Neurological exam: Alert, Altered - Psychiatric Exam Psychiatric exam: Flat Affect - Skin Skin Exam: Normal Color, Warm Additional comments: Upper chest dressing Assessment and Plan - Assessment and Plan (Free Text) Assessment: 82 year old male with PMHx HTN, DM, HLD, CVA 2013, dementia, CKD who presents complaining of pain at the site of the permacath on the left side of his chest wall. Plan: Possible infected Permacath Site Blood Cultures - NEGATIVE x 24 hours. Zosyn 2.25 gm IV Q6H (Renally Dosed) (Day 3) Vancomycin 1 gm IV daily - DC'd Patient also had recent Enterococcus faecalis bacteremia Surgery consulted (Dr. Boyce) who placed the permacath for evaluation if necessary to remove, help appreciated Permacath removed today. Discussed with surgery resident about getting cultures from the catheter. Pecocet 5/325 per Surgery for pain control. DC'd Tylenol. ID Consulted (Dr. Langford)-Recs Appreciated. Nephro Consulted (Dr. Oconnell). Per Dr. Oconnell patient does not need dialysis anymore. History of CKD with worsening renal function likely due to sepsis was on HD M, W, F per niece but as of two weeks ago, they were told that he no longer needed dialysis Per niece, Dr. Oconnell is his obiee obia solution architect. Consult placed, help appreciated Patient's Cr 1.9 today. We will start fluids at 50mls/hr History of CVA BP control ASA 81 mg PO daily Plavix 75 mg PO daily Crestor 10 mg PO HS History of HTN Restarted medications from prior admissions Norvasc 10 mg PO daily Metroprolol Succinate 25 mg PO daily Ordered post-op EKG to check for prolonged QT History of Hypothyroidism Restarted medications from prior admissions Synthroid 50 mcg PO daily History of Diabetes Restarted medications from prior admissions Lantus 10 units HS Regular ISS low dose History of Dementia Restarted medications from prior admissions Donepezil 10 mg PO HS Prophylactic Measure Heparin 5000 units SC Q8H Pepcid Daily Heart Healthy Diet 2 gm sodium Patient seen and discussed with Attending. Jerson Putnam PGY-1 <Gladys Menchaca V - Last Filed: 09/16/17 23:33> Objective - Vital Signs/Intake and Output Vital Signs (last 24 hours): Temp Pulse Resp BP Pulse Ox 98.1 F 69 20 119/69 98 09/16/17 15:00 09/16/17 15:00 09/16/17 15:00 09/16/17 15:00 09/16/17 15:00 Intake and Output: 09/16/17 09/17/17 18:59 06:59 Intake Total 300 700 Output Total 350 500 Balance -50 200 - Medications Medications: Current Medications Amlodipine Besylate (Norvasc) 10 mg PO DAILY [facility] Last Admin: 09/16/17 09:32 Dose: Not Given Ascorbic Acid (Vitamin C 250 Mg Tab) 250 mg PO DAILY [facility] Last Admin: 09/16/17 09:33 Dose: Not Given Aspirin (Aspirin Chewable) 81 mg PO DAILY [facility] Last Admin: 09/15/17 09:32 Dose: 81 mg Clopidogrel Bisulfate (Plavix) 75 mg PO DAILY [facility] Last Admin: 09/15/17 09:32 Dose: 75 mg Donepezil HCl (Aricept) 10 mg PO [facility] Last Admin: 09/16/17 21:21 Dose: 10 mg Famotidine (Pepcid) 20 mg PO DAILY [facility] Ferrous Sulfate (Feosol) 325 mg PO BID [facility] Last Admin: 09/16/17 18:09 Dose: 325 mg Heparin Sodium (Porcine) (Heparin) 5,000 units SC Q8 [facility] Last Admin: 09/16/17 21:22 Dose: 5,000 units Piperacillin Sod/Tazobactam Sod (Zosyn 2.25 Gm Iv Premix) 2.25 gm in 50 mls @ 100 mls/hr IVPB Q6H [facility] Last Admin: 09/16/17 21:24 Dose: 100 mls/hr Sodium Chloride (Sodium Chloride 0.9%) 1,000 mls @ 50 mls/hr IV .Q20H [facility] Last Admin: 09/16/17 14:56 Dose: 50 mls/hr Insulin Glargine (Lantus) 10 unit SC [facility] Last Admin: 09/16/17 21:25 Dose: 10 unit Insulin Human Regular (Novolin R) 0 unit SC [facility] PRN Reason: Protocol Last Admin: 09/16/17 21:27 Dose: Not Given Levothyroxine Sodium (Synthroid) 50 mcg PO DAILY@0630 [facility] Last Admin: 09/16/17 06:23 Dose: 50 mcg Metoprolol Succinate (Toprol Xl) 25 mg PO DAILY [facility] Last Admin: 09/16/17 09:33 Dose: Not Given Oxycodone/Acetaminophen (Percocet 5/325 Mg Tab) 1 tab PO Q4H PRN PRN Reason: Pain, moderate (4-7) Stop: 09/19/17 10:18 - Labs Labs: 09/16/17 08:58 09/16/17 08:58 PT 11.3 SECONDS (9.7-12.2) 09/16/17 08:58 INR 1.0 09/16/17 08:58 APTT 30 SECONDS (21-34) 09/15/17 06:28 Attending/Attestation - Attestation I have personally seen and examined this patient.: Yes I have fully participated in the care of the patient.: Yes I have reviewed all pertinent clinical information, including history, physical exam and plan: Yes Notes (Text): Patient seen, examined and case discussed with day-time resident. Patient came in following complaints over pain over his permacath site with associated celulitic changes. Patient went to OR this morning. Patient seen status post Tunnel dialysis removed. Discussed with surgery resident, catheter tip was sent out for culture. Area of the former access improves improved no cellulitis noted. Patient to restart Aspirin, Plavix, and dvt ppx if surgery allows Palliative care to meet with family for POLST and goals of care discussion. Patient's creatinine increased. Discussed with nephrology, patient started on gentle iV hydration. Patient's vancomycin d/c given blood cultures are negative for 24hours X2 Will order post OR given prolonged QT to monitor. Patient denies chest pain, denies palpitations Discharge Diagnoses (1) Cellulitis; Possible Infected Permacath Site * General surgery (Dr. Boyce) on board-->help appreciated * Infectious Disease (Dr Langford) on board-->help appreciated * Patient to have removal of Permcath 09/16/17-->f/u culture * Blood culture: no growth after 24hours X2 * Patient started on Zosyn and Vancomycin on admission; d/c Vancomycin in light of rise in creatinine * Monitor surgical site (2) Prior Hx Enterococcus faecium Bacteremia-->stable completed PO Abx for 5 days at time of discharge * Infectious Disease (Dr. Langford) on the board * Patient has completed IV abx and completed PO antibiotic upon discharge last admission (3).History of Atrial Fibrillation * Restart Toprol XL 25mg PO daily (patient was off beta-elkin prior secondary to cardiac arrest on 07/20/17) * Hold Aspirin 81mg PO daily (4).Acute Renal Insufficiency * Nephrology (Dr. Oconnell) on consult help appreciated * Patient no longer needs Permcath; has not needed dialysis for 2 weeks Status: (5). Hx CVA-->Chronic Assessment and Plan: * CT Head 07/13/17 was negative for bleed or acute process * On hold: Aspirin 81mg PO daily and Plavix 75mg PO daily * Crestor 10mg POqHS Status: Chronic (6) AD (Alzheimer's disease) Assessment and Plan: * Aricept 10 mg PO daily Status: Chronic (7) Anemia Assessment and Plan: * Likely secondary to Chronic Disease: CKD Stage III * Resume Ferrous Sulfate 325 mg PO daily. * Epocrit 10,000 unit IV MWF * HgB/Hct are stable * on hold aspirin/Plavix given hx of stroke Status: Chronic (8) Hx Left Gluteal abscess Assessment and Plan: * Was I&D by surgery team on 06/26/17 * Treated with Bactrim 800/160 PO Q12H for 7 days S/P discharge 06/27/17 Status: Chronic (9) HLD (hyperlipidemia) Assessment and Plan: * Lopid 600 mg PO BID * Patient takes Lipitor 80 mg PO HS which is not on formulary therefore Crestor 10 mg PO HS (renal dosed). Status: Chronic (10) HTN (hypertension) Assessment and Plan: * Toprol XL 50mg Po Daily Status: Chronic (11) Diabetes Assessment and Plan: * Diabetic Diet * Accuchecks QAC and HS * hold Aspirin 81mg Po daily * Crestor 10mg POqHS * [id number]: 8.3 Status: Chronic (12) History of hypothyroidism Assessment and Plan: * Levothyroxine 50 mcg PO daily * TSH, Free T4 are normal Status: Chronic (13) Overactive bladder Assessment and Plan: * Festerodine 8 mg PO 1x/day * Enlarged Prostate on CT Abdomen/Pelvis in prior hospitalization * PSA >23.3--->Will need to be follow-up by urology as outpatient with repeat PSA Status: Chronic (14) Hx of glaucoma Assessment and Plan: * Patient's home med Travatan ggt not on formulary. * Started Xalatan ggt in bilateral eyes. Status: Chronic (15) Hx of gastroesophageal reflux (GERD) Assessment and Plan: * Protonix 40 mg IV daily Status: Chronic (16) Thrombocytopenia (Normalized) Assessment and Plan: * Hold Aspirin 81mg PO daily and Plavix 75mg PO daily * Normalized (17) Prophylactic measure Assessment and Plan: * Protonix 40 mg PO daily * SCDs * Ascorbic Acid 250 mg PO daily * Florastor 250 mg PO 2x/day * Zofran 4 mg IV Q6H PRN N/V * PT eval in progress * Tolerating diet * Lyndsey Youssef (niece): [phone] * s/p dialysis access remova 09/16/17
--- NOTE | 2017-09-16 16:10 | CP.PCM.PN ---
Subjective - Date & Time of Evaluation Date of Evaluation: 09/16/17 Time of Evaluation: 16:06 - Subjective Subjective: s/p catheter removal no chest pain no sob no fever no rash no arthralgias no edema no headache chronically ill Objective - Vital Signs/Intake and Output Vital Signs (last 24 hours): Temp Pulse Resp BP Pulse Ox 97.7 F 68 14 111/60 100 09/16/17 11:00 09/16/17 11:00 09/16/17 11:00 09/16/17 11:00 09/16/17 11:00 Intake and Output: 09/16/17 09/16/17 06:59 18:59 Intake Total 450 300 Output Total 350 Balance 450 -50 - Medications Medications: Current Medications Amlodipine Besylate (Norvasc) 10 mg PO DAILY [facility] Last Admin: 09/16/17 09:32 Dose: Not Given Ascorbic Acid (Vitamin C 250 Mg Tab) 250 mg PO DAILY [facility] Last Admin: 09/16/17 09:33 Dose: Not Given Aspirin (Aspirin Chewable) 81 mg PO DAILY [facility] Last Admin: 09/15/17 09:32 Dose: 81 mg Clopidogrel Bisulfate (Plavix) 75 mg PO DAILY [facility] Last Admin: 09/15/17 09:32 Dose: 75 mg Donepezil HCl (Aricept) 10 mg PO [facility] Last Admin: 09/15/17 21:14 Dose: 10 mg Famotidine (Pepcid) 20 mg PO DAILY [facility] Ferrous Sulfate (Feosol) 325 mg PO BID [facility] Last Admin: 09/16/17 09:32 Dose: Not Given Heparin Sodium (Porcine) (Heparin) 5,000 units SC Q8 [facility] Last Admin: 09/16/17 13:59 Dose: 5,000 units Piperacillin Sod/Tazobactam Sod (Zosyn 2.25 Gm Iv Premix) 2.25 gm in 50 mls @ 100 mls/hr IVPB Q6H [facility] Last Admin: 09/16/17 14:01 Dose: 100 mls/hr Sodium Chloride (Sodium Chloride 0.9%) 1,000 mls @ 50 mls/hr IV .Q20H [facility] Last Admin: 09/16/17 14:56 Dose: 50 mls/hr Insulin Glargine (Lantus) 10 unit SC [facility] Last Admin: 09/15/17 21:14 Dose: 10 unit Insulin Human Regular (Novolin R) 0 unit SC ACHS [facility] PRN Reason: Protocol Last Admin: 09/16/17 12:08 Dose: Not Given Levothyroxine Sodium (Synthroid) 50 mcg PO DAILY@0630 [facility] Last Admin: 09/16/17 06:23 Dose: 50 mcg Metoprolol Succinate (Toprol Xl) 25 mg PO DAILY [facility] Last Admin: 09/16/17 09:33 Dose: Not Given Oxycodone/Acetaminophen (Percocet 5/325 Mg Tab) 1 tab PO Q4H PRN PRN Reason: Pain, moderate (4-7) Stop: 09/19/17 10:18 - Labs Labs: 09/16/17 08:58 09/16/17 08:58 PT 11.3 SECONDS (9.7-12.2) 09/16/17 08:58 INR 1.0 09/16/17 08:58 APTT 30 SECONDS (21-34) 09/15/17 06:28 - Constitutional Appears: No Acute Distress, Chronically Ill - Eye Exam Eye Exam: EOMI - Neck Exam Neck Exam: Full ROM. absent: Lymphadenopathy - Respiratory Exam Respiratory Exam: Clear to Ausculation Bilateral, NORMAL BREATHING PATTERN - Cardiovascular Exam Cardiovascular Exam: REGULAR RHYTHM. absent: Rubs - GI/Abdominal Exam GI & Abdominal Exam: Soft, Normal Bowel Sounds. absent: Tenderness - Extremities Exam Extremities Exam: absent: Pedal Edema - Neurological Exam Neurological Exam: Alert Assessment and Plan - Assessment and Plan (Free Text) Assessment: s/p permcath tunnel infection not clear what his requirements are for further dialysis f/u u/o and creatinine noted to be rising at present time
--- NOTE | 2017-09-16 18:31 | CP.PCM.PN ---
Subjective - Date & Time of Evaluation Date of Evaluation: 09/16/17 Time of Evaluation: 08:00 - Subjective Subjective: cultures neg thus far catheter out imp[roving Objective - Vital Signs/Intake and Output Vital Signs (last 24 hours): Temp Pulse Resp BP Pulse Ox 98.1 F 69 20 119/69 98 09/16/17 15:00 09/16/17 15:00 09/16/17 15:00 09/16/17 15:00 09/16/17 15:00 Intake and Output: 09/16/17 09/16/17 06:59 18:59 Intake Total 450 300 Output Total 350 Balance 450 -50 - Medications Medications: Current Medications Amlodipine Besylate (Norvasc) 10 mg PO DAILY [facility] Last Admin: 09/16/17 09:32 Dose: Not Given Ascorbic Acid (Vitamin C 250 Mg Tab) 250 mg PO DAILY [facility] Last Admin: 09/16/17 09:33 Dose: Not Given Aspirin (Aspirin Chewable) 81 mg PO DAILY [facility] Last Admin: 09/15/17 09:32 Dose: 81 mg Clopidogrel Bisulfate (Plavix) 75 mg PO DAILY [facility] Last Admin: 09/15/17 09:32 Dose: 75 mg Donepezil HCl (Aricept) 10 mg PO HS [facility] Last Admin: 09/15/17 21:14 Dose: 10 mg Famotidine (Pepcid) 20 mg PO DAILY [facility] Ferrous Sulfate (Feosol) 325 mg PO BID [facility] Last Admin: 09/16/17 18:09 Dose: 325 mg Heparin Sodium (Porcine) (Heparin) 5,000 units SC Q8 [facility] Last Admin: 09/16/17 13:59 Dose: 5,000 units Piperacillin Sod/Tazobactam Sod (Zosyn 2.25 Gm Iv Premix) 2.25 gm in 50 mls @ 100 mls/hr IVPB Q6H [facility] Last Admin: 09/16/17 14:01 Dose: 100 mls/hr Sodium Chloride (Sodium Chloride 0.9%) 1,000 mls @ 50 mls/hr IV .Q20H [facility] Last Admin: 09/16/17 14:56 Dose: 50 mls/hr Insulin Glargine (Lantus) 10 unit SC HS [facility] Last Admin: 09/15/17 21:14 Dose: 10 unit Insulin Human Regular (Novolin R) 0 unit SC ACHS [facility] PRN Reason: Protocol Last Admin: 09/16/17 17:09 Dose: Not Given Levothyroxine Sodium (Synthroid) 50 mcg PO DAILY@0630 [facility] Last Admin: 09/16/17 06:23 Dose: 50 mcg Metoprolol Succinate (Toprol Xl) 25 mg PO DAILY [facility] Last Admin: 09/16/17 09:33 Dose: Not Given Oxycodone/Acetaminophen (Percocet 5/325 Mg Tab) 1 tab PO Q4H PRN PRN Reason: Pain, moderate (4-7) Stop: 09/19/17 10:18 - Labs Labs: 09/16/17 08:58 09/16/17 08:58 PT 11.3 SECONDS (9.7-12.2) 09/16/17 08:58 INR 1.0 09/16/17 08:58 APTT 30 SECONDS (21-34) 09/15/17 06:28 - Constitutional Appears: Non-toxic - Head Exam Head Exam: NORMOCEPHALIC - Eye Exam Eye Exam: PERRL - ENT Exam ENT Exam: Mucous Membranes Dry - Neck Exam Neck Exam: absent: Lymphadenopathy - Respiratory Exam Respiratory Exam: Decreased Breath Sounds - Cardiovascular Exam Cardiovascular Exam: REGULAR RHYTHM - GI/Abdominal Exam GI & Abdominal Exam: Distended, Soft - Rectal Exam Rectal Exam: Deferred Assessment and Plan (1) Cellulitis Status: Acute (2) ESRD (end stage renal disease) Status: Acute (3) AD (Alzheimer's disease) Status: Acute
[2017-09-16] MEDS: (Lantus) Insulin Glargine, Recombinant SC SCH (21:25)
[2017-09-17] MEDS: Piperacill/Tazo 2.25gm in Dex 2.25 GM/50 ML BAG IVPB SCH ×4 (03:00→21:35)
[2017-09-17] MEDS: Levothyroxine 50 MCG TAB PO SCH (05:50)
[2017-09-17 07:45] LABS: BASO % 0.6 % (0.0-2.0); EOS # 0.2 K/uL (0.0-0.7); EOS % 3.5 % (0.0-4.0); LYMPH # 2.4 K/uL (1.0-4.3); LYMPH % 35.4 % (20.0-40.0); MEAN CELL VOLUME 85.6 fL (80.0-94.0); MEAN CORPUSCULAR HEMOGLOBIN 28.5 pg (27.0-31.0); MEAN CORPUSCULAR HGB CONC 33.3 g/dL (33.0-37.0); MEAN PLATELET VOLUME 8.6 fL (7.2-11.7); MONO # 0.6 K/uL (0.0-0.8); MONO % 8.3 % (0.0-10.0); NEUT # 3.5 K/uL (1.8-7.0); NEUT % 52.2 % (50.0-75.0); RBC 3.49 Mil/uL (4.40-5.90); RED CELL DISTRIBUTION WIDTH 15.6 % (11.5-14.5); WHITE BLOOD COUNT 6.7 K/uL (4.8-10.8)
[2017-09-17] MEDS: (Novolin R) Insulin Human Regular 100 units/ml vial SC SCH ×4 (07:52→21:55)
[2017-09-17 08:22] LABS: ALB/GLOB RATIO 1.1 (1.0-2.1); ALBUMIN 3.2 g/dL (3.5-5.0); CALCIUM 8.1 mg/dl (8.6-10.4); MAGNESIUM 1.6 mg/dL (1.6-2.3)
[2017-09-17] MEDS: Metoprolol Succinate 25 mg XL Tab PO SCH (09:18)
[2017-09-17] MEDS ORDERED: Pneumococcal 23-Valent Vaccine IM ONE (10:00)
[2017-09-17] MEDS ORDERED: Influenza Vaccine 60 mcg/0.5 mL SYR (4YR UP) IM ONE (10:00)
--- NOTE | 2017-09-17 10:00 | CP.PCM.PN ---
Subjective - Date & Time of Evaluation Date of Evaluation: 09/17/17 Time of Evaluation: 09:57 - Subjective Subjective: Surgery Pt s&e. Pt underwent permacath removal yesterday and tolerated it well. Denies F /C/N/V/D/Cp/SOB. Pain controlled. Objective - Vital Signs/Intake and Output Vital Signs (last 24 hours): Temp Pulse Resp BP Pulse Ox 98 F 84 20 138/78 97 09/17/17 08:16 09/17/17 08:16 09/17/17 08:16 09/17/17 08:16 09/17/17 08:16 Intake and Output: 09/17/17 09/17/17 06:59 18:59 Intake Total 1300 Output Total 500 Balance 800 - Medications Medications: Current Medications Amlodipine Besylate (Norvasc) 10 mg PO DAILY [facility] Last Admin: 09/17/17 09:18 Dose: 10 mg Ascorbic Acid (Vitamin C 250 Mg Tab) 250 mg PO DAILY [facility] Last Admin: 09/17/17 09:18 Dose: 250 mg Aspirin (Aspirin Chewable) 81 mg PO DAILY [facility] Last Admin: 09/17/17 09:18 Dose: 81 mg Clopidogrel Bisulfate (Plavix) 75 mg PO DAILY [facility] Last Admin: 09/17/17 09:18 Dose: 75 mg Donepezil HCl (Aricept) 10 mg PO HS [facility] Last Admin: 09/16/17 21:21 Dose: 10 mg Famotidine (Pepcid) 20 mg PO DAILY [facility] Last Admin: 09/17/17 09:18 Dose: 20 mg Ferrous Sulfate (Feosol) 325 mg PO BID [facility] Last Admin: 09/17/17 09:18 Dose: 325 mg Heparin Sodium (Porcine) (Heparin) 5,000 units SC Q8 [facility] Last Admin: 09/17/17 05:50 Dose: 5,000 units Piperacillin Sod/Tazobactam Sod (Zosyn 2.25 Gm Iv Premix) 2.25 gm in 50 mls @ 100 mls/hr IVPB Q6H [facility] Last Admin: 09/17/17 09:17 Dose: 100 mls/hr Sodium Chloride (Sodium Chloride 0.9%) 1,000 mls @ 50 mls/hr IV .Q20H [facility] Last Admin: 09/16/17 14:56 Dose: 50 mls/hr Insulin Glargine (Lantus) 10 unit SC HS [facility] Last Admin: 09/16/17 21:25 Dose: 10 unit Insulin Human Regular (Novolin R) 0 unit SC ACHS [facility] PRN Reason: Protocol Last Admin: 09/17/17 07:52 Dose: Not Given Levothyroxine Sodium (Synthroid) 50 mcg PO DAILY@0630 [facility] Last Admin: 09/17/17 05:50 Dose: 50 mcg Metoprolol Succinate (Toprol Xl) 25 mg PO DAILY [facility] Last Admin: 09/17/17 09:18 Dose: 25 mg Oxycodone/Acetaminophen (Percocet 5/325 Mg Tab) 1 tab PO Q4H PRN PRN Reason: Pain, moderate (4-7) Stop: 09/19/17 10:18 - Labs Labs: 09/17/17 07:39 09/17/17 07:39 PT 11.3 SECONDS (9.7-12.2) 09/16/17 08:58 INR 1.0 09/16/17 08:58 APTT 30 SECONDS (21-34) 09/15/17 06:28 - Constitutional Appears: No Acute Distress - Head Exam Head Exam: ATRAUMATIC, NORMAL INSPECTION, NORMOCEPHALIC - Eye Exam Eye Exam: EOMI, Normal appearance, PERRL Pupil Exam: NORMAL ACCOMODATION, PERRL - ENT Exam ENT Exam: Mucous Membranes Moist, Normal Exam - Neck Exam Neck Exam: Full ROM, Normal Inspection. absent: Lymphadenopathy - Respiratory Exam Respiratory Exam: Clear to Ausculation Bilateral, NORMAL BREATHING PATTERN - Cardiovascular Exam Cardiovascular Exam: REGULAR RHYTHM, +S1, +S2. absent: Murmur - GI/Abdominal Exam GI & Abdominal Exam: Soft, Normal Bowel Sounds. absent: Tenderness - Extremities Exam Extremities Exam: Full ROM, Normal Capillary Refill, Normal Inspection. absent : Joint Swelling, Pedal Edema Additional comments: L chest dressing C/d/I. Wound clean. healing. - Back Exam Back Exam: NORMAL INSPECTION - Neurological Exam Neurological Exam: Alert, Awake, CN II-XII Intact, Normal Gait, Oriented x3 - Psychiatric Exam Psychiatric exam: Normal Affect, Normal Mood - Skin Skin Exam: Dry, Intact, Normal Color, Warm. absent: Erythema Assessment and Plan - Assessment and Plan (Free Text) Assessment: POD 1 s/p permacath removal: site clean -No further surgical intervention -Can take dressing off tomorrow. -Ok to shower tomorrow -Please reconsult if permacath insertion needed in the future. CATY Boyce
[2017-09-17] MEDS: Sodium Chloride 0.9% 1,000 ML IV SCH (11:00)
--- NOTE | 2017-09-17 12:32 | CP.PCM.PN ---
<Jerson Putnam - Last Filed: 09/17/17 12:22> Subjective - Date & Time of Evaluation Date of Evaluation: 09/17/17 Time of Evaluation: 12:22 - Subjective Subjective: Patient has been seen and examined. No overnight events reported. PortaCath removed yesterday. Patient has no complaints except for minimal tenderness at where port-a-cath was. Want to know when he is going home. Objective - Vital Signs/Intake and Output Vital Signs (last 24 hours): Temp Pulse Resp BP Pulse Ox 98 F 84 20 138/78 97 09/17/17 08:16 09/17/17 08:16 09/17/17 08:16 09/17/17 08:16 09/17/17 08:16 Intake and Output: 09/17/17 09/17/17 06:59 18:59 Intake Total 1300 Output Total 500 Balance 800 - Medications Medications: Current Medications Amlodipine Besylate (Norvasc) 10 mg PO DAILY [facility] [place] Last Admin: 09/17/17 09:18 Dose: 10 mg Ascorbic Acid (Vitamin C 250 Mg Tab) 250 mg PO DAILY [facility] [place] Last Admin: 09/17/17 09:18 Dose: 250 mg Aspirin (Aspirin Chewable) 81 mg PO DAILY [facility] [place] Last Admin: 09/17/17 09:18 Dose: 81 mg Clopidogrel Bisulfate (Plavix) 75 mg PO DAILY [facility] [place] Last Admin: 09/17/17 09:18 Dose: 75 mg Donepezil HCl (Aricept) 10 mg PO HS [facility] [place] Last Admin: 09/16/17 21:21 Dose: 10 mg Famotidine (Pepcid) 20 mg PO DAILY [facility] [place] Last Admin: 09/17/17 09:18 Dose: 20 mg Ferrous Sulfate (Feosol) 325 mg PO BID [facility] [place] Last Admin: 09/17/17 09:18 Dose: 325 mg Heparin Sodium (Porcine) (Heparin) 5,000 units SC Q8 [facility] [place] Last Admin: 09/17/17 05:50 Dose: 5,000 units Piperacillin Sod/Tazobactam Sod (Zosyn 2.25 Gm Iv Premix) 2.25 gm in 50 mls @ 100 mls/hr IVPB Q6H [facility] [place] Last Admin: 09/17/17 09:17 Dose: 100 mls/hr Sodium Chloride (Sodium Chloride 0.9%) 1,000 mls @ 50 mls/hr IV .Q20H [facility] [place] Last Admin: 09/17/17 11:00 Dose: 50 mls/hr Insulin Glargine (Lantus) 10 unit SC HS [facility] [place] Last Admin: 09/16/17 21:25 Dose: 10 unit Insulin Human Regular (Novolin R) 0 unit SC ACHS [facility] [place] PRN Reason: Protocol Last Admin: 09/17/17 12:05 Dose: 4 unit Levothyroxine Sodium (Synthroid) 50 mcg PO DAILY@0630 [facility] [place] Last Admin: 09/17/17 05:50 Dose: 50 mcg Metoprolol Succinate (Toprol Xl) 25 mg PO DAILY [facility] [place] Last Admin: 09/17/17 09:18 Dose: 25 mg Oxycodone/Acetaminophen (Percocet 5/325 Mg Tab) 1 tab PO Q4H PRN PRN Reason: Pain, moderate (4-7) Stop: 09/19/17 10:18 - Labs Labs: 09/17/17 07:39 09/17/17 07:39 PT 11.3 SECONDS (9.7-12.2) 09/16/17 08:58 INR 1.0 09/16/17 08:58 APTT 30 SECONDS (21-34) 09/15/17 06:28 - Additional Findings Additional findings: - Constitutional Appears: No Acute Distress - Head Exam Head Exam: ATRAUMATIC, NORMAL INSPECTION, NORMOCEPHALIC - Eye Exam Eye Exam: EOMI, Normal appearance, PERRL Pupil Exam: NORMAL ACCOMODATION, PERRL - ENT Exam ENT Exam: Mucous Membranes Moist, Normal Exam - Neck Exam Neck exam: Positive for: Normal Inspection - Respiratory Exam Respiratory Exam: Decreased Breath Sounds, Clear to Auscultation Bilateral, NORMAL BREATHING PATTERN - Cardiovascular Exam Cardiovascular Exam: REGULAR RHYTHM - GI/Abdominal Exam GI & Abdominal Exam: Normal Bowel Sounds, Soft - Rectal Exam Rectal Exam: Deferred - Extremities Exam Extremities exam: Positive for: normal inspection - Back Exam Back exam: NORMAL INSPECTION - Neurological Exam Neurological exam: Alert, Altered - Psychiatric Exam Psychiatric exam: Flat Affect - Skin Skin Exam: Normal Color, Warm Additional comments: Upper chest dressing Assessment and Plan - Assessment and Plan (Free Text) Assessment: 82 year old male with PMHx HTN, DM, HLD, CVA 2013, dementia, CKD who presents complaining of pain at the site of the permacath on the left side of his chest wall. P/O day 1 s/p portacath removal. Plan: Possible infected Permacath Site Blood Cultures - NEGATIVE x 24 hours. Zosyn 2.25 gm IV Q6H (Renally Dosed) (Day 4). Will switch to Keflex on Discharge Day. Prescription in Chart. Patient also had recent Enterococcus faecalis bacteremia Surgery consulted (Dr. Boyce) who placed the permacath for evaluation if necessary to remove, help appreciated Permacath removed yesterday. Discussed with surgery resident about getting cultures from the catheter. Pecocet per Surgery for pain control. DC'd Tylenol. ID Consulted (Dr. Langford)-Recs Appreciated. Nephro Consulted (Dr. Oconnell). Per Dr. Oconnell patient does not need dialysis anymore. 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 Consult placed, help appreciated Patient's Cr 1.5 today from 1.9 yesterday. Cont. fluids at 50mls/hr History of CVA BP control ASA 81 mg PO daily Plavix 75 mg PO daily Crestor 10 mg PO HS History of HTN Restarted medications from prior admissions Norvasc 10 mg PO daily Metroprolol Succinate 25 mg PO daily Ordered post-op EKG to check for prolonged QT History of Hypothyroidism Restarted medications from prior admissions Synthroid 50 mcg PO daily History of Diabetes Restarted medications from prior admissions Lantus 10 units HS Regular ISS low dose History of Dementia Restarted medications from prior admissions Donepezil 10 mg PO HS Prophylactic Measure Heparin 5000 units SC Q8H Pepcid Daily Heart Healthy Diet 2 gm sodium Patient seen and discussed with Attending. Jerson Putnam PGY-1 Dispo: Per ID, patient can go on PO KEFLEX when DC'd. Will discuss [employer] R[employer] about ODALIS. <Gladys Menchaca V - Last Filed: 09/17/17 16:14> Objective - Vital Signs/Intake and Output Vital Signs (last 24 hours): Temp Pulse Resp BP Pulse Ox 98 F 84 20 138/78 98 09/17/17 08:16 09/17/17 13:30 09/17/17 08:16 09/17/17 13:30 09/17/17 13:30 Intake and Output: 09/17/17 09/17/17 06:59 18:59 Intake Total 1300 930 Output Total 500 Balance 800 930 - Medications Medications: Current Medications Amlodipine Besylate (Norvasc) 10 mg PO DAILY [facility] [place] Last Admin: 09/17/17 09:18 Dose: 10 mg Ascorbic Acid (Vitamin C 250 Mg Tab) 250 mg PO DAILY [facility] [place] Last Admin: 09/17/17 09:18 Dose: 250 mg Aspirin (Aspirin Chewable) 81 mg PO DAILY [facility] [place] Last Admin: 09/17/17 09:18 Dose: 81 mg Clopidogrel Bisulfate (Plavix) 75 mg PO DAILY [facility] [place] Last Admin: 09/17/17 09:18 Dose: 75 mg Donepezil HCl (Aricept) 10 mg PO HS [facility] [place] Last Admin: 09/16/17 21:21 Dose: 10 mg Famotidine (Pepcid) 20 mg PO DAILY [facility] [place] Last Admin: 09/17/17 09:18 Dose: 20 mg Ferrous Sulfate (Feosol) 325 mg PO BID [facility] [place] Last Admin: 09/17/17 09:18 Dose: 325 mg Heparin Sodium (Porcine) (Heparin) 5,000 units SC Q8 [facility] [place] Last Admin: 09/17/17 13:52 Dose: 5,000 units Piperacillin Sod/Tazobactam Sod (Zosyn 2.25 Gm Iv Premix) 2.25 gm in 50 mls @ 100 mls/hr IVPB Q6H [facility] [place] Last Admin: 09/17/17 14:14 Dose: 100 mls/hr Sodium Chloride (Sodium Chloride 0.9%) 1,000 mls @ 50 mls/hr IV .Q20H [facility] [place] Last Admin: 09/17/17 11:00 Dose: 50 mls/hr Insulin Glargine (Lantus) 10 unit SC HS [facility] [place] Last Admin: 09/16/17 21:25 Dose: 10 unit Insulin Human Regular (Novolin R) 0 unit SC ACHS [facility] PRN Reason: Protocol Last Admin: 09/17/17 12:05 Dose: 4 unit Levothyroxine Sodium (Synthroid) 50 mcg PO DAILY@0630 [facility] [place] Last Admin: 09/17/17 05:50 Dose: 50 mcg Metoprolol Succinate (Toprol Xl) 25 mg PO DAILY [facility] [place] Last Admin: 09/17/17 09:18 Dose: 25 mg Oxycodone/Acetaminophen (Percocet 5/325 Mg Tab) 1 tab PO Q4H PRN PRN Reason: Pain, moderate (4-7) Stop: 09/19/17 10:18 - Labs Labs: 09/17/17 07:39 09/17/17 14:30 PT 11.3 SECONDS (9.7-12.2) 09/16/17 08:58 INR 1.0 09/16/17 08:58 APTT 30 SECONDS (21-34) 09/15/17 06:28 Attending/Attestation - Attestation I have personally seen and examined this patient.: Yes I have fully participated in the care of the patient.: Yes I have reviewed all pertinent clinical information, including history, physical exam and plan: Yes Notes (Text): Patient seen, examined, case discussed with medical technologist microbiology. Patient is postoperative day 1 of permacath not Port-A-Cath removal. Patient reports mild pain associated to where the catheter used to be. Patient did eat breakfast this morning. Appreciate services of general surgery. As per operative note no pus was observed and mild cellulitis noted in the OR. Vitals are stable. Patient's creatinine did improve from 1.9-1.5 with gentle IV hydration. Patient is pending for subacute rehabilitation. Resident has spoken with infectious disease and recommends for Keflex. Prescription is ready in the chart. Blood cultures remained negative for 48 hours. Patient does not have an elevated white count. Patient is afebrile. Repeat EKG improvement in QT. When patient's subacute rehabilitation bed is available, patient will be discharged. Discharge Diagnoses (1) Cellulitis; Possible Infected Permacath Site * General surgery (Dr. Boyce) on board-->help appreciated * Infectious Disease (Dr Langford) on board-->help appreciated * Patient is postoperative day 1 Permcath 09/16/17-->f/u culture * Blood culture: no growth after 48 hours X2 * Patient started on Zosyn and Vancomycin on admission; d/c Vancomycin in light of rise in creatinine during hospitalization * Monitor surgical site * Remains afebrile and no elevated white count (2) Prior Hx Enterococcus faecium Bacteremia-->stable completed PO Abx for 5 days at time of discharge * Infectious Disease (Dr. Langford) on the board * Patient has completed IV abx and completed PO antibiotic upon discharge last admission * Blood cultures showed no growth after 48 hours 2 (3).History of Atrial Fibrillation * Restart Toprol XL 25mg PO daily (patient was off beta-elkin prior secondary to cardiac arrest on 07/20/17) * Aspirin 81mg PO daily (4).Acute Renal Insufficiency * Nephrology (Dr. Oconnell) on consult help appreciated * Patient no longer needs Permcath; has not needed dialysis for 2 weeks * Patient has completed 24-hour urine collection. * Patient is on gentle IV hydration given mild creatinine bump of 1.9 yesterday. Creatinine has improved 1.5. (5). Hx CVA-->Chronic Assessment and Plan: * CT Head 07/13/17 was negative for bleed or acute process * c/w Aspirin 81mg PO daily and Plavix 75mg PO daily * c/w Crestor 10mg POqHS Status: Chronic (6) AD (Alzheimer's disease) Assessment and Plan: * Aricept 10 mg PO daily Status: Chronic (7) Anemia Assessment and Plan: * Likely secondary to Chronic Disease: CKD Stage III * Resume Ferrous Sulfate 325 mg PO daily. * Epocrit 10,000 unit IV MWF * HgB/Hct are stable * c/w aspirin/Plavix given hx of stroke Status: Chronic (8) Hx Left Gluteal abscess Assessment and Plan: * Was I&D by surgery team on 06/26/17 * Treated with Bactrim 800/160 PO Q12H for 7 days S/P discharge 06/27/17 Status: Chronic (9) HLD (hyperlipidemia) Assessment and Plan: * Lopid 600 mg PO BID * Patient takes Lipitor 80 mg PO HS which is not on formulary therefore Crestor 10 mg PO HS (renal dosed). Status: Chronic (10) HTN (hypertension) Assessment and Plan: * Toprol XL 50mg Po Daily Status: Chronic (11) Diabetes Assessment and Plan: * Diabetic Diet * Accuchecks QAC and HS * hold Aspirin 81mg Po daily * Crestor 10mg POqHS * [id number]: 8.3 Status: Chronic (12) History of hypothyroidism Assessment and Plan: * Levothyroxine 50 mcg PO in the morning * TSH, Free T4 are normal Status: Chronic (13) Overactive bladder Assessment and Plan: * Festerodine 8 mg PO 1x/day none available on hospital formulary. * Enlarged Prostate on CT Abdomen/Pelvis in prior hospitalization * PSA >23.3--->Will need to be follow-up by urology as outpatient with repeat PSA Status: Chronic (14) Hx of glaucoma Assessment and Plan: * Patient's home med Travatan ggt not on formulary. * Started Xalatan ggt in bilateral eyes. Status: Chronic (15) Hx of gastroesophageal reflux (GERD) Assessment and Plan: * Pepcid 20mg PO daily Status: Chronic (16) History of Thrombocytopenia (Normalized) Assessment and Plan: * c/w Aspirin 81mg PO daily and Plavix 75mg PO daily * Normalized * heparin 5000 units subq8H (17) Prophylactic measure Assessment and Plan: * Pepcid 20mg PO daily * SCDs * Ascorbic Acid 250 mg PO daily * Florastor 250 mg PO 2x/day * Zofran 4 mg IV Q6H PRN N/V * PT eval: eval * Subacute rehab eval * Tolerating diet * Lyndsey Youssef (niece): [phone] * s/p dialysis access removal 09/16/17 Disposition: Patient is awaiting placement for subacute rehabilitation. Follow- up with case management and social work to determine placement.
--- NOTE | 2017-09-17 14:16 | CARD ---
APPROVED REPORT EKG Measurement Heart [id number] <Conclusion> Sinus rhythm with Left axis deviation Moderate voltage criteria for LVH, may be normal variant T wave abnormality, consider inferolateral ischemia Abnormal ECG
[2017-09-17 14:44] LABS: URINE CREATININE 43.5 mg/dL
--- NOTE | 2017-09-17 14:53 | CARD ---
APPROVED REPORT EKG Measurement Heart [id number] <Conclusion> Normal sinus rhythm Left axis deviation Minimal voltage criteria for LVH, may be normal variant ST & T wave abnormality, consider lateral ischemia Prolonged QT Abnormal ECG
[2017-09-17] MEDS: (Lantus) Insulin Glargine, Recombinant SC SCH (21:59)
[2017-09-18] MEDS: Piperacill/Tazo 2.25gm in Dex 2.25 GM/50 ML BAG IVPB SCH ×3 (02:06→14:05)
[2017-09-18] MEDS: Levothyroxine 50 MCG TAB PO SCH (05:47)
[2017-09-18] MEDS: Sodium Chloride 0.9% 1,000 ML IV SCH ×2 (05:50→09:34)
[2017-09-18 07:37] LABS: BASO # 0.1 K/uL (0.0-0.2); BASO % 1.2 % (0.0-2.0); EOS # 0.4 K/uL (0.0-0.7); EOS % 4.7 % (0.0-4.0); HEMOGLOBIN 10.6 g/dL (12.0-18.0); LYMPH % 26.2 % (20.0-40.0); MEAN CORPUSCULAR HEMOGLOBIN 28.9 pg (27.0-31.0); MEAN CORPUSCULAR HGB CONC 33.6 g/dL (33.0-37.0); MEAN PLATELET VOLUME 8.7 fL (7.2-11.7); MONO # 0.4 K/uL (0.0-0.8); MONO % 5.6 % (0.0-10.0); NEUT # 4.8 K/uL (1.8-7.0); NEUT % 62.3 % (50.0-75.0); NRBC % 0.1 % (0.0-2.0); RBC 3.68 Mil/uL (4.40-5.90); RED CELL DISTRIBUTION WIDTH 15.4 % (11.5-14.5); WHITE BLOOD COUNT 7.6 K/uL (4.8-10.8)
[2017-09-18] MEDS: (Novolin R) Insulin Human Regular 100 units/ml vial SC SCH ×4 (08:08→21:36)
[2017-09-18 08:23] LABS: ALB/GLOB RATIO 1.2 (1.0-2.1); ALBUMIN 3.4 g/dL (3.5-5.0); CALCIUM 8.5 mg/dl (8.6-10.4); MAGNESIUM 1.5 mg/dL (1.6-2.3)
[2017-09-18] MEDS: Metoprolol Succinate 25 mg XL Tab PO SCH (09:30)
--- NOTE | 2017-09-18 12:47 | CP.PCM.PN ---
Subjective - Date & Time of Evaluation Date of Evaluation: 09/18/17 Time of Evaluation: 12:45 - Subjective Subjective: s/p permcath remova Creat 1.5; creat clearance = 27 ml qh same lethargy no new events not SOB, no CPs, no fever,chills, nausea Objective - Vital Signs/Intake and Output Vital Signs (last 24 hours): Temp Pulse Resp BP Pulse Ox 97.8 F 75 18 123/66 99 09/18/17 07:56 09/18/17 07:56 09/18/17 07:56 09/18/17 07:56 09/18/17 07:56 Intake and Output: 09/18/17 09/18/17 06:59 18:59 Intake Total 1530 Balance 1530 - Medications Medications: Current Medications Amlodipine Besylate (Norvasc) 10 mg PO DAILY [facility] Last Admin: 09/18/17 09:30 Dose: 10 mg Ascorbic Acid (Vitamin C 250 Mg Tab) 250 mg PO DAILY [facility] Last Admin: 09/18/17 09:30 Dose: 250 mg Aspirin (Aspirin Chewable) 81 mg PO DAILY [facility] Last Admin: 09/18/17 09:29 Dose: 81 mg Clopidogrel Bisulfate (Plavix) 75 mg PO DAILY [facility] Last Admin: 09/18/17 09:30 Dose: 75 mg Donepezil HCl (Aricept) 10 mg PO HS [facility] Last Admin: 09/17/17 21:58 Dose: 10 mg Famotidine (Pepcid) 20 mg PO DAILY [facility] Last Admin: 09/18/17 09:29 Dose: 20 mg Ferrous Sulfate (Feosol) 325 mg PO BID [facility] Last Admin: 09/18/17 09:29 Dose: 325 mg Heparin Sodium (Porcine) (Heparin) 5,000 units SC Q8 [facility] Last Admin: 09/18/17 05:47 Dose: 5,000 units Piperacillin Sod/Tazobactam Sod (Zosyn 2.25 Gm Iv Premix) 2.25 gm in 50 mls @ 100 mls/hr IVPB Q6H [facility] Last Admin: 09/18/17 09:29 Dose: 100 mls/hr Sodium Chloride (Sodium Chloride 0.9%) 1,000 mls @ 50 mls/hr IV .Q20H [facility] Last Admin: 09/18/17 09:34 Dose: 50 mls/hr Insulin Glargine (Lantus) 10 unit SC HS [facility] Last Admin: 09/17/17 21:59 Dose: 10 unit Insulin Human Regular (Novolin R) 0 unit SC [facility] PRN Reason: Protocol Last Admin: 09/18/17 12:10 Dose: 2 unit Levothyroxine Sodium (Synthroid) 50 mcg PO DAILY@0630 [facility] Last Admin: 09/18/17 05:47 Dose: 50 mcg Metoprolol Succinate (Toprol Xl) 25 mg PO DAILY [facility] Last Admin: 09/18/17 09:30 Dose: 25 mg Oxycodone/Acetaminophen (Percocet 5/325 Mg Tab) 1 tab PO Q4H PRN PRN Reason: Pain, moderate (4-7) Stop: 09/19/17 10:18 - Labs Labs: 09/18/17 06:16 09/18/17 06:16 PT 11.3 SECONDS (9.7-12.2) 09/16/17 08:58 INR 1.0 09/16/17 08:58 APTT 30 SECONDS (21-34) 09/15/17 06:28 - Constitutional Appears: No Acute Distress, Chronically Ill - Head Exam Head Exam: ATRAUMATIC, NORMAL INSPECTION - Eye Exam Eye Exam: EOMI, Normal appearance - Neck Exam Neck Exam: Normal Inspection. absent: Tenderness - Cardiovascular Exam Cardiovascular Exam: REGULAR RHYTHM, +S1 - GI/Abdominal Exam GI & Abdominal Exam: Soft. absent: Tenderness - Neurological Exam Neurological Exam: Alert, CN II-XII Intact - Skin Skin Exam: Dry, Warm Assessment and Plan (1) Dementia Status: Acute (2) HTN (hypertension) Status: Acute (3) Cellulitis Status: Acute - Assessment and Plan (Free Text) Plan: JAY JAY has resolved- no need for dialysis now
[2017-09-18 16:48] VITALS: RESP 20
--- NOTE | 2017-09-18 17:29 | CP.PCM.PN ---
<Jerson Putnam - Last Filed: 09/18/17 17:27> Subjective - Date & Time of Evaluation Date of Evaluation: 09/18/17 Time of Evaluation: 17:27 - Subjective Subjective: Patient has been seen and examined. No overnight events reported. PortaCath removed yesterday. Patient has no complaints except for minimal tenderness at where port-a-cath was. Want to know when he is going home. Objective - Vital Signs/Intake and Output Vital Signs (last 24 hours): Temp Pulse Resp BP Pulse Ox 98.0 F 73 20 140/72 99 09/18/17 15:00 09/18/17 15:00 09/18/17 15:00 09/18/17 15:00 09/18/17 15:00 Intake and Output: 09/18/17 09/18/17 06:59 18:59 Intake Total 1530 900 Balance 1530 900 - Medications Medications: Current Medications Amlodipine Besylate (Norvasc) 10 mg PO DAILY [facility] Last Admin: 09/18/17 09:30 Dose: 10 mg Ascorbic Acid (Vitamin C 250 Mg Tab) 250 mg PO DAILY [facility] Last Admin: 09/18/17 09:30 Dose: 250 mg Aspirin (Aspirin Chewable) 81 mg PO DAILY [facility] Last Admin: 09/18/17 09:29 Dose: 81 mg Cephalexin Monohydrate (Keflex) 500 mg PO Q12H [facility] Clopidogrel Bisulfate (Plavix) 75 mg PO DAILY [facility] Last Admin: 09/18/17 09:30 Dose: 75 mg Donepezil HCl (Aricept) 10 mg PO HS [facility] Last Admin: 09/17/17 21:58 Dose: 10 mg Famotidine (Pepcid) 20 mg PO DAILY [facility] Last Admin: 09/18/17 09:29 Dose: 20 mg Ferrous Sulfate (Feosol) 325 mg PO BID [facility] Last Admin: 09/18/17 09:29 Dose: 325 mg Heparin Sodium (Porcine) (Heparin) 5,000 units SC Q8 [facility] Last Admin: 09/18/17 13:58 Dose: 5,000 units Sodium Chloride (Sodium Chloride 0.9%) 1,000 mls @ 50 mls/hr IV .Q20H [facility] Last Admin: 09/18/17 09:34 Dose: 50 mls/hr Insulin Glargine (Lantus) 10 unit SC [facility] Last Admin: 09/17/17 21:59 Dose: 10 unit Insulin Human Regular (Novolin R) 0 unit SC ACHS [facility] PRN Reason: Protocol Last Admin: 09/18/17 12:10 Dose: 2 unit Levothyroxine Sodium (Synthroid) 50 mcg PO DAILY@0630 [facility] Last Admin: 09/18/17 05:47 Dose: 50 mcg Metoprolol Succinate (Toprol Xl) 25 mg PO DAILY [facility] Last Admin: 09/18/17 09:30 Dose: 25 mg Oxycodone/Acetaminophen (Percocet 5/325 Mg Tab) 1 tab PO Q4H PRN PRN Reason: Pain, moderate (4-7) Stop: 09/19/17 10:18 - Labs Labs: 09/18/17 06:16 09/18/17 06:16 PT 11.3 SECONDS (9.7-12.2) 09/16/17 08:58 INR 1.0 09/16/17 08:58 APTT 30 SECONDS (21-34) 09/15/17 06:28 - Additional Findings Additional findings: - Constitutional Appears: No Acute Distress - Head Exam Head Exam: ATRAUMATIC, NORMAL INSPECTION, NORMOCEPHALIC - Eye Exam Eye Exam: EOMI, Normal appearance, PERRL Pupil Exam: NORMAL ACCOMODATION, PERRL - ENT Exam ENT Exam: Mucous Membranes Moist, Normal Exam - Neck Exam Neck exam: Positive for: Normal Inspection - Respiratory Exam Respiratory Exam: Decreased Breath Sounds, Clear to Auscultation Bilateral, NORMAL BREATHING PATTERN - Cardiovascular Exam Cardiovascular Exam: REGULAR RHYTHM - GI/Abdominal Exam GI & Abdominal Exam: Normal Bowel Sounds, Soft - Rectal Exam Rectal Exam: Deferred - Extremities Exam Extremities exam: Positive for: normal inspection - Back Exam Back exam: NORMAL INSPECTION - Neurological Exam Neurological exam: Alert, Altered - Psychiatric Exam Psychiatric exam: Flat Affect - Skin Skin Exam: Normal Color, Warm Additional comments: Upper chest dressing Assessment and Plan - Assessment and Plan (Free Text) Assessment: 82 year old male with PMHx HTN, DM, HLD, CVA 2013, dementia, CKD who presents complaining of pain at the site of the permacath on the left side of his chest wall. P/O day 1 s/p portacath removal. Plan: Possible infected Permacath Site Blood Cultures - NEGATIVE x 24 hours. Zosyn 2.25 gm IV Q6H (Renally Dosed) - DC'd Today. Started on Keflex today. Prescription in chart will need to be printed again because he will be on Keflex for less days now Patient also had recent Enterococcus faecalis bacteremia Surgery consulted (Dr. Boyce) who placed the permacath for evaluation if necessary to remove, help appreciated Permacath removed yesterday. Discussed with surgery resident about getting cultures from the catheter. Pecocet 5/325 per Surgery for pain control. DC'd Tylenol. ID Consulted (Dr. Langford)-Recs Appreciated. Nephro Consulted (Dr. Oconnell). Per Dr. Oconnell patient does not need dialysis anymore. History of CKD with worsening renal function likely due to sepsis was on HD M, W, F per niece but as of two weeks ago, they were told that he no longer needed dialysis Per niece, Dr. Oconnell is his technical manager. Consult placed, help appreciated Patient's Cr 1.5 today from 1.9 yesterday. Cont. fluids at 50mls/hr History of CVA BP control ASA 81 mg PO daily Plavix 75 mg PO daily Crestor 10 mg PO HS History of HTN Restarted medications from prior admissions Norvasc 10 mg PO daily Metroprolol Succinate 25 mg PO daily Ordered post-op EKG to check for prolonged QT History of Hypothyroidism Restarted medications from prior admissions Synthroid 50 mcg PO daily History of Diabetes Restarted medications from prior admissions Lantus 10 units HS Regular ISS low dose History of Dementia Restarted medications from prior admissions Donepezil 10 mg PO HS Prophylactic Measure Heparin 5000 units SC Q8H Pepcid Daily Heart Healthy Diet 2 gm sodium Patient seen and discussed with Attending. Jerson Putnam PGY-1 Dispo: Per ID, patient can go on PO KEFLEX when DC'd. Has been accepted to [facility]. Still waiting for insurance approval. <Gladys Menchaca V - Last Filed: 09/19/17 07:59> Objective - Vital Signs/Intake and Output Vital Signs (last 24 hours): Temp Pulse Resp BP Pulse Ox 98.6 F 78 20 133/75 100 09/19/17 07:45 09/19/17 07:45 09/19/17 07:45 09/19/17 07:45 09/19/17 07:45 Intake and Output: 09/19/17 09/19/17 06:59 18:59 Intake Total 900 Balance 900 - Medications Medications: Current Medications Amlodipine Besylate (Norvasc) 10 mg PO DAILY [facility] Last Admin: 09/18/17 09:30 Dose: 10 mg Ascorbic Acid (Vitamin C 250 Mg Tab) 250 mg PO DAILY [facility] Last Admin: 09/18/17 09:30 Dose: 250 mg Aspirin (Aspirin Chewable) 81 mg PO DAILY [facility] Last Admin: 09/18/17 09:29 Dose: 81 mg Cephalexin Monohydrate (Keflex) 500 mg PO Q12H [facility] Last Admin: 09/19/17 06:22 Dose: 500 mg Clopidogrel Bisulfate (Plavix) 75 mg PO DAILY [facility] Last Admin: 09/18/17 09:30 Dose: 75 mg Donepezil HCl (Aricept) 10 mg PO HS [facility] Last Admin: 09/18/17 21:33 Dose: 10 mg Famotidine (Pepcid) 20 mg PO DAILY [facility] Last Admin: 09/18/17 09:29 Dose: 20 mg Ferrous Sulfate (Feosol) 325 mg PO BID [facility] Last Admin: 09/18/17 17:42 Dose: 325 mg Heparin Sodium (Porcine) (Heparin) 5,000 units SC Q8 [facility] Last Admin: 09/19/17 06:22 Dose: 5,000 units Sodium Chloride (Sodium Chloride 0.9%) 1,000 mls @ 50 mls/hr IV .Q20H [facility] Last Admin: 09/19/17 06:23 Dose: 50 mls/hr Insulin Glargine (Lantus) 10 unit SC [facility] Last Admin: 09/18/17 21:33 Dose: 10 unit Insulin Human Regular (Novolin R) 0 unit SC [facility] PRN Reason: Protocol Last Admin: 09/18/17 21:36 Dose: Not Given Levothyroxine Sodium (Synthroid) 50 mcg PO DAILY@0630 [facility] Last Admin: 09/19/17 06:22 Dose: 50 mcg Metoprolol Succinate (Toprol Xl) 25 mg PO DAILY [facility] Last Admin: 09/18/17 09:30 Dose: 25 mg Oxycodone/Acetaminophen (Percocet 5/325 Mg Tab) 1 tab PO Q4H PRN PRN Reason: Pain, moderate (4-7) Stop: 09/19/17 10:18 - Labs Labs: 09/18/17 06:16 09/18/17 06:16 PT 11.3 SECONDS (9.7-12.2) 09/16/17 08:58 INR 1.0 09/16/17 08:58 APTT 30 SECONDS (21-34) 09/15/17 06:28 Attending/Attestation - Attestation I have personally seen and examined this patient.: Yes I have fully participated in the care of the patient.: Yes I have reviewed all pertinent clinical information, including history, physical exam and plan: Yes Notes (Text): This is a late computer entry for 09/18/2017. Patient seen, examined, case discussed with medical claims specialist. Patient is postoperative day 2 of permacath not Port-A-Cath removal. Patient denies acute complaints at bedside. The site where in prior infected permacath not Port-A-Cath appears resolved no several cellulitic changes noted. Vitals are stable. Patient's creatinine did improve from 11.5 with gentle IV hydration. Patient is pending for subacute rehabilitation for discharge. I have discussed with case management 0 awaiting the authorization from insurance company. Resident has spoken with infectious disease and recommends for Keflex. Prescription is ready in the chart. Blood cultures remained negative for 3 days. Patient does not have an elevated white count. Patient is afebrile. When patient's subacute rehabilitation bed is available, patient will be discharged. Discharge Diagnoses (1) Cellulitis; Possible Infected Permacath Site * General surgery (Dr. Boyce) on board-->help appreciated * Infectious Disease (Dr Langford) on board-->help appreciated * Patient is postoperative day 2 Permcath 09/16/17-->f/u culture * Blood culture: no growth after negative for 3 days * Patient started on Zosyn and Vancomycin on admission; d/c Vancomycin in light of rise in creatinine during hospitalization * Monitor surgical site * Remains afebrile and no elevated white count (2) Prior Hx Enterococcus faecium Bacteremia-->stable completed PO Abx for 5 days at time of discharge * Infectious Disease (Dr. Langford) on the board * Patient has completed IV abx and completed PO antibiotic upon discharge last admission * Blood cultures showed no growth after 48 hours 2 (3).History of Atrial Fibrillation * c/w Toprol XL 25mg PO daily (patient was off beta-elkin prior secondary to cardiac arrest on 07/20/17) * Aspirin 81mg PO daily (4).Acute Renal Insufficiency * Nephrology (Dr. Oconnell) on consult help appreciated * Patient no longer needs Permcath; has not needed dialysis for 2 weeks * Patient has completed 24-hour urine collection. * Patient is on gentle IV hydration. Creatinine has improved 1.5. (5). Hx CVA-->Chronic Assessment and Plan: * CT Head 07/13/17 was negative for bleed or acute process * c/w Aspirin 81mg PO daily and Plavix 75mg PO daily * c/w Crestor 10mg POqHS Status: Chronic (6) AD (Alzheimer's disease) Assessment and Plan: * Aricept 10 mg PO daily Status: Chronic (7) Anemia Assessment and Plan: * Likely secondary to Chronic Disease: CKD Stage III * Resume Ferrous Sulfate 325 mg PO daily. * Epocrit 10,000 unit IV MWF * HgB/Hct are stable * c/w aspirin/Plavix given hx of stroke Status: Chronic (8) Hx Left Gluteal abscess Assessment and Plan: * Was I&D by surgery team on 06/26/17 * Treated with Bactrim 800/160 PO Q12H for 7 days S/P discharge 06/27/17 Status: Chronic (9) HLD (hyperlipidemia) Assessment and Plan: * Lopid 600 mg PO BID * Patient takes Lipitor 80 mg PO HS which is not on formulary therefore Crestor 10 mg PO HS (renal dosed). Status: Chronic (10) HTN (hypertension) Assessment and Plan: * Toprol XL 50mg Po Daily Status: Chronic (11) Diabetes Assessment and Plan: * Diabetic Diet * Accuchecks QAC and HS * hold Aspirin 81mg Po daily * Crestor 10mg POqHS * [id number]: 8.3 Status: Chronic (12) History of hypothyroidism Assessment and Plan: * Levothyroxine 50 mcg PO in the morning * TSH, Free T4 are normal Status: Chronic (13) Overactive bladder Assessment and Plan: * Festerodine 8 mg PO 1x/day none available on hospital formulary. * Enlarged Prostate on CT Abdomen/Pelvis in prior hospitalization * PSA >23.3--->Will need to be follow-up by urology as outpatient with repeat PSA Status: Chronic (14) Hx of glaucoma Assessment and Plan: * Patient's home med Travatan ggt not on formulary. * Started Xalatan ggt in bilateral eyes. Status: Chronic (15) Hx of gastroesophageal reflux (GERD) Assessment and Plan: * Pepcid 20mg PO daily Status: Chronic (16) History of Thrombocytopenia (Normalized) Assessment and Plan: * c/w Aspirin 81mg PO daily and Plavix 75mg PO daily * Normalized * heparin 5000 units subq8H (17) Prophylactic measure Assessment and Plan: * Pepcid 20mg PO daily * SCDs * Ascorbic Acid 250 mg PO daily * Florastor 250 mg PO 2x/day * PT eval: eval * Subacute rehab eval * Tolerating diet * Lyndsey Youssef (niece): [phone] * s/p dialysis access removal 09/16/17 Disposition: Patient is awaiting placement for subacute rehabilitation. Follow- up with case management and social work to determine placement.
[2017-09-18] MEDS: (Lantus) Insulin Glargine, Recombinant SC SCH (21:33)
[2017-09-19] MEDS: Levothyroxine 50 MCG TAB PO SCH (06:22)
[2017-09-19] MEDS: Sodium Chloride 0.9% 1,000 ML IV SCH (06:23)
[2017-09-19] MEDS: (Novolin R) Insulin Human Regular 100 units/ml vial SC SCH ×4 (08:02→21:49)
[2017-09-19 08:43] LABS: BASO # 0.1 K/uL (0.0-0.2); BASO % 0.9 % (0.0-2.0); EOS # 0.3 K/uL (0.0-0.7); EOS % 4.2 % (0.0-4.0); LYMPH # 2.6 K/uL (1.0-4.3); LYMPH % 32.8 % (20.0-40.0); MEAN CELL VOLUME 85.3 fL (80.0-94.0); MEAN PLATELET VOLUME 8.4 fL (7.2-11.7); MONO # 0.5 K/uL (0.0-0.8); MONO % 6.7 % (0.0-10.0); NEUT # 4.4 K/uL (1.8-7.0); NEUT % 55.4 % (50.0-75.0); RBC 3.78 Mil/uL (4.40-5.90); RED CELL DISTRIBUTION WIDTH 15.5 % (11.5-14.5); WHITE BLOOD COUNT 7.9 K/uL (4.8-10.8)
[2017-09-19 09:22] LABS: ALB/GLOB RATIO 1.1 (1.0-2.1); ALBUMIN 3.5 g/dL (3.5-5.0); ALT/SGPT 13 U/L (21-72); AST/SGOT 20 U/L (17-59); BLOOD UREA NITROGEN 12 mg/dL (9-20); CALCIUM 8.5 mg/dl (8.6-10.4); GFR AFRICAN-AMERICAN > 60; GFR NON-AFRICAN AMERICAN 53; MAGNESIUM 1.3 mg/dL (1.6-2.3)
[2017-09-19] MEDS: Metoprolol Succinate 25 mg XL Tab PO SCH (09:59)
--- NOTE | 2017-09-19 15:03 | CP.PCM.PN ---
<Effie Vogt - Last Filed: 09/19/17 15:00> Subjective - Date & Time of Evaluation Date of Evaluation: 09/19/17 Time of Evaluation: 07:00 - Subjective Subjective: PGY-1, Medicine Note, Dr. Menchaca's service Patient seen and examined at bedside and in no acute distress. Patient has no complaints. Patient denies chest pain, shortness of breath, abdominal pain, nausea, vomiting, constipation, or diarrhea. Objective - Vital Signs/Intake and Output Vital Signs (last 24 hours): Temp Pulse Resp BP Pulse Ox 98.6 F 78 20 133/75 100 09/19/17 07:45 09/19/17 07:45 09/19/17 07:45 09/19/17 07:45 09/19/17 07:45 Intake and Output: 09/19/17 09/19/17 06:59 18:59 Intake Total 900 760 Balance 900 760 - Medications Medications: Current Medications Amlodipine Besylate (Norvasc) 10 mg PO DAILY [facility] Last Admin: 09/19/17 09:59 Dose: 10 mg Ascorbic Acid (Vitamin C 250 Mg Tab) 250 mg PO DAILY [facility] Last Admin: 09/19/17 11:00 Dose: 250 mg Aspirin (Aspirin Chewable) 81 mg PO DAILY [facility] Last Admin: 09/19/17 09:59 Dose: 81 mg Cephalexin Monohydrate (Keflex) 500 mg PO Q12H [facility] Last Admin: 09/19/17 06:22 Dose: 500 mg Clopidogrel Bisulfate (Plavix) 75 mg PO DAILY [facility] Last Admin: 09/19/17 09:59 Dose: 75 mg Donepezil HCl (Aricept) 10 mg PO HS [facility] Last Admin: 09/18/17 21:33 Dose: 10 mg Famotidine (Pepcid) 20 mg PO DAILY [facility] Last Admin: 09/19/17 09:59 Dose: 20 mg Ferrous Sulfate (Feosol) 325 mg PO BID [facility] Last Admin: 09/19/17 10:00 Dose: 325 mg Heparin Sodium (Porcine) (Heparin) 5,000 units SC Q8 [facility] Last Admin: 09/19/17 13:16 Dose: 5,000 units Sodium Chloride (Sodium Chloride 0.9%) 1,000 mls @ 50 mls/hr IV .Q20H [facility] Last Admin: 09/19/17 06:23 Dose: 50 mls/hr Insulin Glargine (Lantus) 10 unit SC HS [facility] Last Admin: 09/18/17 21:33 Dose: 10 unit Insulin Human Regular (Novolin R) 0 unit SC ACHS [facility] PRN Reason: Protocol Last Admin: 09/19/17 12:23 Dose: 2 unit Levothyroxine Sodium (Synthroid) 50 mcg PO DAILY@0630 [facility] Last Admin: 09/19/17 06:22 Dose: 50 mcg Metoprolol Succinate (Toprol Xl) 25 mg PO DAILY [facility] Last Admin: 09/19/17 09:59 Dose: 25 mg - Labs Labs: 09/19/17 08:38 09/19/17 08:38 PT 11.3 SECONDS (9.7-12.2) 09/16/17 08:58 INR 1.0 09/16/17 08:58 APTT 30 SECONDS (21-34) 09/15/17 06:28 - Additional Findings Additional findings: - Constitutional Appears: No Acute Distress - Head Exam Head Exam: ATRAUMATIC, NORMAL INSPECTION, NORMOCEPHALIC - Eye Exam Eye Exam: EOMI, Normal appearance, PERRL Pupil Exam: NORMAL ACCOMODATION, PERRL - ENT Exam ENT Exam: Mucous Membranes Moist, Normal Exam - Neck Exam Neck exam: Positive for: Normal Inspection - Respiratory Exam Respiratory Exam: Decreased Breath Sounds, Clear to Auscultation Bilateral, NORMAL BREATHING PATTERN - Cardiovascular Exam Cardiovascular Exam: REGULAR RHYTHM - GI/Abdominal Exam GI & Abdominal Exam: Normal Bowel Sounds, Soft - Rectal Exam Rectal Exam: Deferred - Extremities Exam Extremities exam: Positive for: normal inspection - Back Exam Back exam: NORMAL INSPECTION - Neurological Exam Neurological exam: Alert, Altered - Psychiatric Exam Psychiatric exam: Flat Affect - Skin Skin Exam: Normal Color, Warm Assessment and Plan - Assessment and Plan (Free Text) Assessment: Possible infected Permacath Site Blood Cultures - NEGATIVE x 4 days Zosyn 2.25 gm IV Q6H (Renally Dosed) - DC'd. Started on Keflex on 09/18/17. Prescription in chart will need to be printed again because he will be on Keflex for less days now Patient also had recent Enterococcus faecalis bacteremia Surgery consulted (Dr. Boyce) who placed the permacath Permacath removed yesterday. Discussed with surgery resident about getting cultures from the catheter. Pecocet 5/325 per Surgery for pain control. DC'd Tylenol. ID Consulted (Dr. Langford)-Recs Appreciated. Nephro Consulted (Dr. Oconnell). Per Dr. Oconnell patient does not need dialysis anymore. History of CKD with worsening renal function likely due to sepsis was on HD M, W, F per niece but as of two weeks ago, they were told that he no longer needed dialysis Per niece, Dr. Oconnell is his platinum smith. Consult placed, help appreciated Cont. fluids at 50mls/hr History of CVA BP control ASA 81 mg PO daily Plavix 75 mg PO daily Crestor 10 mg PO HS History of HTN Restarted medications from prior admissions Norvasc 10 mg PO daily Metroprolol Succinate 25 mg PO daily Ordered post-op EKG to check for prolonged QT History of Hypothyroidism Restarted medications from prior admissions Synthroid 50 mcg PO daily History of Diabetes Restarted medications from prior admissions Lantus 10 units HS Regular ISS low dose History of Dementia Restarted medications from prior admissions Donepezil 10 mg PO HS Prophylactic Measure Heparin 5000 units SC Q8H Pepcid Daily Heart Healthy Diet 2 gm sodium Patient seen and discussed with Attending. Dispo: Per ID, patient can go on PO KEFLEX when DC'd. Has been accepted to [facility] awaiting bed. <Gladys Menchaca V - Last Filed: 09/19/17 17:36> Objective - Vital Signs/Intake and Output Vital Signs (last 24 hours): Temp Pulse Resp BP Pulse Ox 98.5 F 70 20 156/70 H 99 09/19/17 16:00 09/19/17 16:00 09/19/17 16:00 09/19/17 16:00 09/19/17 16:00 Intake and Output: 09/19/17 09/19/17 06:59 18:59 Intake Total 900 760 Balance 900 760 - Medications Medications: Current Medications Amlodipine Besylate (Norvasc) 10 mg PO DAILY [facility] Last Admin: 09/19/17 09:59 Dose: 10 mg Ascorbic Acid (Vitamin C 250 Mg Tab) 250 mg PO DAILY [facility] Last Admin: 09/19/17 11:00 Dose: 250 mg Aspirin (Aspirin Chewable) 81 mg PO DAILY [facility] Last Admin: 09/19/17 09:59 Dose: 81 mg Cephalexin Monohydrate (Keflex) 500 mg PO Q12H [facility] Last Admin: 09/19/17 06:22 Dose: 500 mg Clopidogrel Bisulfate (Plavix) 75 mg PO DAILY [facility] Last Admin: 09/19/17 09:59 Dose: 75 mg Donepezil HCl (Aricept) 10 mg PO HS [facility] Last Admin: 09/18/17 21:33 Dose: 10 mg Famotidine (Pepcid) 20 mg PO DAILY [facility] Last Admin: 09/19/17 09:59 Dose: 20 mg Ferrous Sulfate (Feosol) 325 mg PO BID [facility] Last Admin: 09/19/17 10:00 Dose: 325 mg Heparin Sodium (Porcine) (Heparin) 5,000 units SC Q8 [facility] Last Admin: 09/19/17 13:16 Dose: 5,000 units Sodium Chloride (Sodium Chloride 0.9%) 1,000 mls @ 50 mls/hr IV .Q20H [facility] Last Admin: 09/19/17 06:23 Dose: 50 mls/hr Insulin Glargine (Lantus) 10 unit SC [facility] Last Admin: 09/18/17 21:33 Dose: 10 unit Insulin Human Regular (Novolin R) 0 unit SC [facility] PRN Reason: Protocol Last Admin: 09/19/17 12:23 Dose: 2 unit Levothyroxine Sodium (Synthroid) 50 mcg PO DAILY@0630 [facility] Last Admin: 09/19/17 06:22 Dose: 50 mcg Metoprolol Succinate (Toprol Xl) 25 mg PO DAILY [facility] Last Admin: 09/19/17 09:59 Dose: 25 mg - Labs Labs: 09/19/17 08:38 09/19/17 08:38 PT 11.3 SECONDS (9.7-12.2) 09/16/17 08:58 INR 1.0 09/16/17 08:58 APTT 30 SECONDS (21-34) 09/15/17 06:28 Attending/Attestation - Attestation I have personally seen and examined this patient.: Yes I have fully participated in the care of the patient.: Yes I have reviewed all pertinent clinical information, including history, physical exam and plan: Yes Notes (Text): Patient seen, examined, case discussed with medical device engineer. Patient is postoperative day 3 of permacath not Port-A-Cath removal. Patient denies acute complaints at bedside. The site where in prior infected permacath not Port-A-Cath appears resolved no several cellulitic changes noted. Vitals are stable. Patient's creatinine did improve from 1.5 (not 11.5 error) to 1.3 with gentle IV hydration. Resident has spoken with infectious disease and recommends for Keflex. Prescription is ready in the chart. Blood cultures remained negative for 4 days. Patient does not have an elevated white count. Patient is afebrile. When patient's subacute rehabilitation bed is available, patient will be discharged. Patient is pending for subacute rehabilitation for discharge. I have discussed with case management. There is authorization. However, there remains no bed available for the patient to go to. Per case management, bed should be available on 09/20/17 Discharge Diagnoses (1) Cellulitis; Possible Infected Permacath Site * General surgery (Dr. Boyce) on board-->help appreciated * Infectious Disease (Dr Langford) on board-->help appreciated * Patient is postoperative day 2 Permcath 09/16/17-->f/u culture * Blood culture: no growth after negative for 4 days * Patient started on Zosyn and Vancomycin on admission; d/c Vancomycin in light of rise in creatinine during hospitalization * Monitor surgical site * Remains afebrile and no elevated white count (2) Prior Hx Enterococcus faecium Bacteremia-->stable completed PO Abx for 5 days at time of discharge * Infectious Disease (Dr. Langford) on the board * Patient has completed IV abx and completed PO antibiotic upon discharge last admission * Blood cultures showed no growth 4 days X2 (3).History of Atrial Fibrillation * c/w Toprol XL 25mg PO daily (patient was off beta-elkin prior secondary to cardiac arrest on 07/20/17) * Aspirin 81mg PO daily (4).Acute Renal Insufficiency * Nephrology (Dr. Oconnell) on consult help appreciated * Patient no longer needs Permcath; has not needed dialysis for 2 weeks * Patient has completed 24-hour urine collection. * Patient is on gentle IV hydration. Creatinine has improved 1.3 (5). Hx CVA-->Chronic Assessment and Plan: * CT Head 07/13/17 was negative for bleed or acute process * c/w Aspirin 81mg PO daily and Plavix 75mg PO daily * c/w Crestor 10mg POqHS Status: Chronic (6) AD (Alzheimer's disease) Assessment and Plan: * Aricept 10 mg PO daily Status: Chronic (7) Anemia Assessment and Plan: * Likely secondary to Chronic Disease: CKD Stage III * Resume Ferrous Sulfate 325 mg PO daily. * Epocrit 10,000 unit IV MWF * HgB/Hct are stable * c/w aspirin/Plavix given hx of stroke Status: Chronic (8) Hx Left Gluteal abscess Assessment and Plan: * Was I&D by surgery team on 06/26/17 * Treated with Bactrim 800/160 PO Q12H for 7 days S/P discharge 06/27/17 Status: Chronic (9) HLD (hyperlipidemia) Assessment and Plan: * Lopid 600 mg PO BID * Patient takes Lipitor 80 mg PO HS which is not on formulary therefore Crestor 10 mg PO HS (renal dosed). Status: Chronic (10) HTN (hypertension) Assessment and Plan: * Toprol XL 50mg Po Daily Status: Chronic (11) Diabetes Assessment and Plan: * Diabetic Diet * Accuchecks QAC and HS * hold Aspirin 81mg Po daily * Crestor 10mg POqHS * [id number]: 8.3 Status: Chronic (12) History of hypothyroidism Assessment and Plan: * Levothyroxine 50 mcg PO in the morning * TSH, Free T4 are normal Status: Chronic (13) Overactive bladder Assessment and Plan: * Festerodine 8 mg PO 1x/day none available on hospital formulary. * Enlarged Prostate on CT Abdomen/Pelvis in prior hospitalization * PSA >23.3--->Will need to be follow-up by urology as outpatient with repeat PSA Status: Chronic (14) Hx of glaucoma Assessment and Plan: * Patient's home med Travatan ggt not on formulary. * Started Xalatan ggt in bilateral eyes. Status: Chronic (15) Hx of gastroesophageal reflux (GERD) Assessment and Plan: * Pepcid 20mg PO daily Status: Chronic (16) History of Thrombocytopenia (Normalized) Assessment and Plan: * c/w Aspirin 81mg PO daily and Plavix 75mg PO daily * Normalized * heparin 5000 units subq8H (17) Prophylactic measure Assessment and Plan: * Pepcid 20mg PO daily * SCDs * Ascorbic Acid 250 mg PO daily * Florastor 250 mg PO 2x/day * PT eval: eval * Subacute rehab eval * Tolerating diet * Lyndsey Youssef (niece): [phone] * s/p dialysis access removal 09/16/17 Disposition: Patient is awaiting placement for subacute rehabilitation; bed is not available at the [facility], possible discharge this upcoming Thursday. Follow-up with case management and social work to determine placement.
[2017-09-19] MEDS: (Lantus) Insulin Glargine, Recombinant SC SCH (21:48)
--- NOTE | 2017-09-20 01:45 | CP.PCM.PN ---
<Leslie Cazares - Last Filed: 09/20/17 06:32> Subjective - Date & Time of Evaluation Date of Evaluation: 09/20/17 Time of Evaluation: 01:44 - Subjective Subjective: Medicine Progress Note: Hospitalist Service Patient seen and examined at bedside. Per nursing, no acute events overnight. Patient is doing well, offers no complaints at this time. Denies headaches, dizziness, cp, palpitations, sob, abdominal pain, urinary symptoms, changes in bowel habits. Objective - Vital Signs/Intake and Output Vital Signs (last 24 hours): Temp Pulse Resp BP Pulse Ox 98.8 F 78 20 113/62 99 09/20/17 00:00 09/20/17 00:00 09/20/17 00:00 09/20/17 00:00 09/20/17 00:00 Intake and Output: 09/19/17 09/20/17 18:59 06:59 Intake Total 760 700 Output Total 350 Balance 760 350 - Medications Medications: Current Medications Amlodipine Besylate (Norvasc) 10 mg PO DAILY [facility] Last Admin: 09/19/17 09:59 Dose: 10 mg Ascorbic Acid (Vitamin C 250 Mg Tab) 250 mg PO DAILY [facility] Last Admin: 09/19/17 11:00 Dose: 250 mg Aspirin (Aspirin Chewable) 81 mg PO DAILY [facility] Last Admin: 09/19/17 09:59 Dose: 81 mg Cephalexin Monohydrate (Keflex) 500 mg PO Q12H [facility] Last Admin: 09/19/17 19:00 Dose: 500 mg Clopidogrel Bisulfate (Plavix) 75 mg PO DAILY [facility] Last Admin: 09/19/17 09:59 Dose: 75 mg Donepezil HCl (Aricept) 10 mg PO HS [facility] Last Admin: 09/19/17 21:47 Dose: 10 mg Famotidine (Pepcid) 20 mg PO DAILY [facility] Last Admin: 09/19/17 09:59 Dose: 20 mg Ferrous Sulfate (Feosol) 325 mg PO BID [facility] Last Admin: 09/19/17 17:36 Dose: 325 mg Heparin Sodium (Porcine) (Heparin) 5,000 units SC Q8 [facility] Last Admin: 09/19/17 21:48 Dose: 5,000 units Sodium Chloride (Sodium Chloride 0.9%) 1,000 mls @ 50 mls/hr IV .Q20H [facility] Last Admin: 09/19/17 06:23 Dose: 50 mls/hr Insulin Glargine (Lantus) 10 unit SC HS [facility] Last Admin: 09/19/17 21:48 Dose: 10 unit Insulin Human Regular (Novolin R) 0 unit SC [facility] Reason: Protocol Last Admin: 09/19/17 21:49 Dose: Not Given Levothyroxine Sodium (Synthroid) 50 mcg PO DAILY@0630 [facility] Last Admin: 09/19/17 06:22 Dose: 50 mcg Metoprolol Succinate (Toprol Xl) 25 mg PO DAILY [facility] Last Admin: 09/19/17 09:59 Dose: 25 mg - Labs Labs: 09/19/17 08:38 09/19/17 08:38 PT 11.3 SECONDS (9.7-12.2) 09/16/17 08:58 INR 1.0 09/16/17 08:58 APTT 30 SECONDS (21-34) 09/15/17 06:28 - Additional Findings Additional findings: - Constitutional Appears: No Acute Distress - Head Exam Head Exam: ATRAUMATIC, NORMAL INSPECTION, NORMOCEPHALIC - Eye Exam Eye Exam: EOMI, Normal appearance, PERRL Pupil Exam: NORMAL ACCOMODATION, PERRL - ENT Exam ENT Exam: Mucous Membranes Moist, Normal Exam - Neck Exam Neck exam: Positive for: Normal Inspection - Respiratory Exam Respiratory Exam: Decreased Breath Sounds, Clear to Auscultation Bilateral, NORMAL BREATHING PATTERN - Cardiovascular Exam Cardiovascular Exam: REGULAR RHYTHM, permacath removal site clean, non- erythematous - GI/Abdominal Exam GI & Abdominal Exam: Normal Bowel Sounds, Soft - Rectal Exam Rectal Exam: Deferred - Extremities Exam Extremities exam: Positive for: normal inspection - Back Exam Back exam: NORMAL INSPECTION - Neurological Exam Neurological exam: Alert, Altered - Psychiatric Exam Psychiatric exam: Flat Affect - Skin Skin Exam: Normal Color, Warm Assessment and Plan - Assessment and Plan (Free Text) Assessment: (1) Cellulitis; Possible Infected Permacath Site * General surgery (Dr. Boyce) on board-->help appreciated * Infectious Disease (Dr Langford) on board-->help appreciated * Patient is postoperative day 4 Permcath 09/16/17-->f/u culture * Blood culture: no growth after negative for 4 days * Patient started on Zosyn and Vancomycin on admission; d/c Vancomycin in light of rise in creatinine during hospitalization * Per ID, patient can go on PO KEFLEX when DC'd. Has been accepted to [facility] awaiting bed. * Monitor surgical site * Remains afebrile and no elevated white count (2) Prior Hx Enterococcus faecium Bacteremia-->stable completed PO Abx for 5 days at time of discharge * Infectious Disease (Dr. Langford) on the board * Patient has completed IV abx and completed PO antibiotic upon discharge last admission * Blood cultures showed no growth 4 days X2 (3).History of Atrial Fibrillation * c/w Toprol XL 25mg PO daily (patient was off beta-elkin prior secondary to cardiac arrest on 07/20/17) * Aspirin 81mg PO daily (4).Acute Renal Insufficiency * Nephrology (Dr. Oconnell) on consult help appreciated * Patient no longer needs Permcath; has not needed dialysis for 2 weeks * Patient has completed 24-hour urine collection. * Patient is on gentle IV hydration. Creatinine has improved 1.3 (5). Hx CVA-->Chronic * CT Head 07/13/17 was negative for bleed or acute process * c/w Aspirin 81mg PO daily and Plavix 75mg PO daily * c/w Crestor 10mg POqHS (6) AD (Alzheimer's disease) * Aricept 10 mg PO daily (7) Anemia * Likely secondary to Chronic Disease: CKD Stage III * Resume Ferrous Sulfate 325 mg PO daily. * Epocrit 10,000 unit IV MWF * HgB/Hct are stable * c/w aspirin/Plavix given hx of stroke (8) Hx Left Gluteal abscess * Was I&D by surgery team on 06/26/17 * Treated with Bactrim 800/160 PO Q12H for 7 days S/P discharge 06/27/17 (9) HLD (hyperlipidemia) * Lopid 600 mg PO BID * Patient takes Lipitor 80 mg PO HS which is not on formulary therefore Crestor 10 mg PO HS (renal dosed). (10) HTN (hypertension) * Toprol XL 50mg PO Daily (11) Diabetes * Diabetic Diet * Accuchecks QAC and HS * hold Aspirin 81mg Po daily * Crestor 10mg POqHS * [id number]: 8.3 (12) History of hypothyroidism * Levothyroxine 50 mcg PO in the morning * TSH, Free T4 are normal (13) Overactive bladder * Festerodine 8 mg PO 1x/day none available on hospital formulary. * Enlarged Prostate on CT Abdomen/Pelvis in prior hospitalization * PSA >23.3--->Will need to be follow-up by urology as outpatient with repeat PSA (14) Hx of glaucoma * Patient's home med Travatan ggt not on formulary. * Started Xalatan ggt in bilateral eyes. (15) Hx of gastroesophageal reflux (GERD) * Pepcid 20mg PO daily (16) History of Thrombocytopenia (Normalized) * c/w Aspirin 81mg PO daily and Plavix 75mg PO daily * Normalized * heparin 5000 units subq8H (17) Prophylactic measure * Pepcid 20mg PO daily * SCDs * Ascorbic Acid 250 mg PO daily * Florastor 250 mg PO 2x/day * PT eval: eval * Subacute rehab eval * Tolerating diet * Lyndsey Youssef (niece): [phone] * s/p dialysis access removal 09/16/17 Disposition: Patient is awaiting placement for subacute rehabilitation; bed is not available at the [facility], possible discharge this upcoming Thursday. Follow-up with case management and social work to determine placement. <Gladys Menchaca V - Last Filed: 09/20/17 09:09> Objective - Vital Signs/Intake and Output Vital Signs (last 24 hours): Temp Pulse Resp BP Pulse Ox 98.6 F 81 20 155/71 H 96 09/20/17 08:46 09/20/17 08:46 09/20/17 08:46 09/20/17 08:46 09/20/17 08:46 Intake and Output: 09/20/17 09/20/17 06:59 18:59 Intake Total 1340 Output Total 650 Balance 690 - Medications Medications: Current Medications Amlodipine Besylate (Norvasc) 10 mg PO DAILY [facility] Last Admin: 09/19/17 09:59 Dose: 10 mg Ascorbic Acid (Vitamin C 250 Mg Tab) 250 mg PO DAILY [facility] Last Admin: 09/19/17 11:00 Dose: 250 mg Aspirin (Aspirin Chewable) 81 mg PO DAILY [facility] Last Admin: 09/19/17 09:59 Dose: 81 mg Cephalexin Monohydrate (Keflex) 500 mg PO Q12H [facility] Last Admin: 09/20/17 06:19 Dose: 500 mg Clopidogrel Bisulfate (Plavix) 75 mg PO DAILY [facility] Last Admin: 09/19/17 09:59 Dose: 75 mg Donepezil HCl (Aricept) 10 mg PO HS [facility] Last Admin: 09/19/17 21:47 Dose: 10 mg Famotidine (Pepcid) 20 mg PO DAILY [facility] Last Admin: 09/19/17 09:59 Dose: 20 mg Ferrous Sulfate (Feosol) 325 mg PO BID [facility] Last Admin: 09/19/17 17:36 Dose: 325 mg Heparin Sodium (Porcine) (Heparin) 5,000 units SC Q8 [facility] Last Admin: 09/20/17 05:31 Dose: 5,000 units Sodium Chloride (Sodium Chloride 0.9%) 1,000 mls @ 50 mls/hr IV .Q20H [facility] Last Admin: 09/19/17 06:23 Dose: 50 mls/hr Insulin Glargine (Lantus) 10 unit SC [facility] Last Admin: 09/19/17 21:48 Dose: 10 unit Insulin Human Regular (Novolin R) 0 unit SC [facility] Reason: Protocol Last Admin: 09/20/17 07:47 Dose: Not Given Levothyroxine Sodium (Synthroid) 50 mcg PO DAILY@0630 [facility] Last Admin: 09/20/17 05:31 Dose: 50 mcg Metoprolol Succinate (Toprol Xl) 25 mg PO DAILY [facility] Last Admin: 09/19/17 09:59 Dose: 25 mg - Labs Labs: 09/19/17 08:38 09/19/17 08:38 PT 11.3 SECONDS (9.7-12.2) 09/16/17 08:58 INR 1.0 09/16/17 08:58 APTT 30 SECONDS (21-34) 09/15/17 06:28 Attending/Attestation - Attestation I have personally seen and examined this patient.: Yes I have fully participated in the care of the patient.: Yes I have reviewed all pertinent clinical information, including history, physical exam and plan: Yes Notes (Text): Patient seen, examined, case discussed with medical claims processor. Patient is postoperative day 4 of permacath not Port-A-Cath removal. Patient denies acute complaints at bedside. The site where in prior infected permacath not Port-A-Cath appears resolved no several cellulitic changes noted. Vitals are stable. Blood work from this morning is pending. Resident has spoken with infectious disease and recommends for Keflex 500mg PO BID for 5 days (09/17-09/22/17). Blood cultures remained negative for 5 days. When patient's subacute rehabilitation bed is available at [facility], patient will be discharged. Patient is pending for subacute rehabilitation for discharge for [facility], they have no bed available this weekend. There is authorization. Per case management, bed should be available on 09/20/17. I spoke with patient's niece Lyndsey Youssef to provide an update in regards to completion of PO antibiotics and removal of Permacath. Discharge Diagnoses (1) Cellulitis; Possible Infected Permacath Site * General surgery (Dr. Boyce) on board-->help appreciated * Infectious Disease (Dr Langford) on board-->help appreciated * Patient is postoperative day 4 Permcath 09/16/17-->f/u culture * Blood culture: no growth after negative for 5 days * Patient started on Zosyn and Vancomycin on admission; d/c Vancomycin in light of rise in creatinine during hospitalization * Monitor surgical site * Remains afebrile and no elevated white count * Keflex 500mg PO Q 12H (to finish 09/22/17) (2) Prior Hx Enterococcus faecium Bacteremia-->stable completed PO Abx for 5 days at time of discharge * Infectious Disease (Dr. Langford) on the board * Patient has completed IV abx and completed PO antibiotic upon discharge last admission * Blood cultures showed no growth 5 days X2 (3).History of Atrial Fibrillation * c/w Toprol XL 25mg PO daily (patient was off beta-elkin prior secondary to cardiac arrest on 07/20/17) * Aspirin 81mg PO daily (4).Acute Renal Insufficiency * Nephrology (Dr. Oconnell) on consult help appreciated * Patient no longer needs Permcath; has not needed dialysis for 2 weeks * Patient has completed 24-hour urine collection. * Patient is on gentle IV hydration. Creatinine has improved 1.3 (5). Hx CVA-->Chronic Assessment and Plan: * CT Head 07/13/17 was negative for bleed or acute process * c/w Aspirin 81mg PO daily and Plavix 75mg PO daily * c/w Crestor 10mg POqHS Status: Chronic (6) AD (Alzheimer's disease) Assessment and Plan: * Aricept 10 mg PO daily Status: Chronic (7) Anemia Assessment and Plan: * Likely secondary to Chronic Disease: CKD Stage III * Resume Ferrous Sulfate 325 mg PO daily. * Epocrit 10,000 unit IV MWF * HgB/Hct are stable * c/w aspirin/Plavix given hx of stroke Status: Chronic (8) Hx Left Gluteal abscess Assessment and Plan: * Was I&D by surgery team on 06/26/17 * Treated with Bactrim 800/160 PO Q12H for 7 days S/P discharge 06/27/17 Status: Chronic (9) HLD (hyperlipidemia) Assessment and Plan: * Lopid 600 mg PO BID * Patient takes Lipitor 80 mg PO HS which is not on formulary therefore Crestor 10 mg PO HS (renal dosed). Status: Chronic (10) HTN (hypertension) Assessment and Plan: * Toprol XL 50mg Po Daily Status: Chronic (11) Diabetes Assessment and Plan: * Diabetic Diet * Accuchecks QAC and HS * hold Aspirin 81mg Po daily * Crestor 10mg POqHS * Lantus 10 units subqHS * [id number]: 8.3 Status: Chronic (12) History of hypothyroidism Assessment and Plan: * Levothyroxine 50 mcg PO in the morning * TSH, Free T4 are normal Status: Chronic (13) Overactive bladder Assessment and Plan: * Festerodine 8 mg PO 1x/day none available on hospital formulary. * Enlarged Prostate on CT Abdomen/Pelvis in prior hospitalization * PSA >23.3--->Will need to be follow-up by urology as outpatient with repeat PSA Status: Chronic (14) Hx of glaucoma Assessment and Plan: * Patient's home med Travatan ggt not on formulary. * Started Xalatan ggt in bilateral eyes. Status: Chronic (15) Hx of gastroesophageal reflux (GERD) Assessment and Plan: * Pepcid 20mg PO daily Status: Chronic (16) History of Thrombocytopenia (Normalized) Assessment and Plan: * c/w Aspirin 81mg PO daily and Plavix 75mg PO daily * Normalized * heparin 5000 units subq8H (17) Prophylactic measure Assessment and Plan: * Pepcid 20mg PO daily * SCDs * Ascorbic Acid 250 mg PO daily * Florastor 250 mg PO 2x/day * PT eval: eval * Subacute rehab eval * Tolerating diet * Lyndsey Youssef (niece): [phone] * s/p dialysis access removal 09/16/17 Disposition: Patient is awaiting placement for subacute rehabilitation; bed is not available at the [facility], possible discharge this upcoming Thursday. Patient will need to follow-up with PMD for repeat PSA. Patient to finish PO antibiotic on 09/22/17.
[2017-09-20] MEDS: Levothyroxine 50 MCG TAB PO SCH (05:31)
[2017-09-20] MEDS: (Novolin R) Insulin Human Regular 100 units/ml vial SC SCH ×4 (07:47→21:29)
[2017-09-20] MEDS: Metoprolol Succinate 25 mg XL Tab PO SCH (09:18)
[2017-09-20 09:19] LABS: BASO # 0.1 K/uL (0.0-0.2); BASO % 1.4 % (0.0-2.0); EOS # 0.3 K/uL (0.0-0.7); EOS % 4.1 % (0.0-4.0); HEMOGLOBIN 10.9 g/dL (12.0-18.0); LYMPH # 2.1 K/uL (1.0-4.3); LYMPH % 27.9 % (20.0-40.0); MEAN CELL VOLUME 85.5 fL (80.0-94.0); MEAN CORPUSCULAR HEMOGLOBIN 29.1 pg (27.0-31.0); MEAN PLATELET VOLUME 8.3 fL (7.2-11.7); MONO # 0.5 K/uL (0.0-0.8); MONO % 7.1 % (0.0-10.0); NEUT # 4.4 K/uL (1.8-7.0); NEUT % 59.5 % (50.0-75.0); RBC 3.76 Mil/uL (4.40-5.90); RED CELL DISTRIBUTION WIDTH 15.7 % (11.5-14.5); WHITE BLOOD COUNT 7.4 K/uL (4.8-10.8)
[2017-09-20 09:42] LABS: ALB/GLOB RATIO 1.2 (1.0-2.1); ALBUMIN 3.4 g/dL (3.5-5.0); ALT/SGPT 23 U/L (21-72); AST/SGOT 24 U/L (17-59); BLOOD UREA NITROGEN 12 mg/dL (9-20); CALCIUM 8.5 mg/dl (8.6-10.4); GFR AFRICAN-AMERICAN > 60; GFR NON-AFRICAN AMERICAN > 60; MAGNESIUM 1.2 mg/dL (1.6-2.3)
[2017-09-20] MEDS: Magnesium Sulfate 1 gm in D5W 1 GM/100 ML BAG IVPB SCH ×2 (12:43→13:20)
--- NOTE | 2017-09-20 17:48 | CP.PCM.PN ---
Subjective - Date & Time of Evaluation Date of Evaluation: 09/20/17 Time of Evaluation: 09:00 - Subjective Subjective: Patient is doing well, offers no complaints at this time Objective - Vital Signs/Intake and Output Vital Signs (last 24 hours): Temp Pulse Resp BP Pulse Ox 98.6 F 81 20 155/71 H 96 09/20/17 08:46 09/20/17 08:46 09/20/17 08:46 09/20/17 08:46 09/20/17 08:46 Intake and Output: 09/20/17 09/20/17 06:59 18:59 Intake Total 1340 930 Output Total 650 Balance 690 930 - Medications Medications: Current Medications Amlodipine Besylate (Norvasc) 10 mg PO DAILY [facility] Last Admin: 09/20/17 09:18 Dose: 10 mg Ascorbic Acid (Vitamin C 250 Mg Tab) 250 mg PO DAILY [facility] Last Admin: 09/20/17 09:18 Dose: 250 mg Aspirin (Aspirin Chewable) 81 mg PO DAILY [facility] Last Admin: 09/20/17 09:18 Dose: 81 mg Cephalexin Monohydrate (Keflex) 500 mg PO Q12H [facility] Stop: 09/22/17 23:59 Last Admin: 09/20/17 06:19 Dose: 500 mg Clopidogrel Bisulfate (Plavix) 75 mg PO DAILY [facility] Last Admin: 09/20/17 09:18 Dose: 75 mg Donepezil HCl (Aricept) 10 mg PO HS [facility] Last Admin: 09/19/17 21:47 Dose: 10 mg Famotidine (Pepcid) 20 mg PO DAILY [facility] Last Admin: 09/20/17 09:18 Dose: 20 mg Ferrous Sulfate (Feosol) 325 mg PO BID [facility] Last Admin: 09/20/17 09:18 Dose: 325 mg Heparin Sodium (Porcine) (Heparin) 5,000 units SC Q8 [facility] Last Admin: 09/20/17 13:25 Dose: 5,000 units Insulin Glargine (Lantus) 10 unit SC [facility] Last Admin: 09/19/17 21:48 Dose: 10 unit Insulin Human Regular (Novolin R) 0 unit SC [facility] PRN Reason: Protocol Last Admin: 09/20/17 12:17 Dose: 1 unit Levothyroxine Sodium (Synthroid) 50 mcg PO DAILY@0630 [facility] Last Admin: 09/20/17 05:31 Dose: 50 mcg Metoprolol Succinate (Toprol Xl) 25 mg PO DAILY [facility] Last Admin: 09/20/17 09:18 Dose: 25 mg - Labs Labs: 09/20/17 09:12 09/20/17 09:12 PT 11.3 SECONDS (9.7-12.2) 09/16/17 08:58 INR 1.0 09/16/17 08:58 APTT 30 SECONDS (21-34) 09/15/17 06:28 - Constitutional Appears: Non-toxic, Chronically Ill - Head Exam Head Exam: NORMOCEPHALIC - Eye Exam Eye Exam: PERRL - ENT Exam ENT Exam: Mucous Membranes Dry - Neck Exam Neck Exam: absent: Lymphadenopathy - Respiratory Exam Respiratory Exam: Decreased Breath Sounds, Clear to Ausculation Bilateral - Cardiovascular Exam Cardiovascular Exam: REGULAR RHYTHM - GI/Abdominal Exam GI & Abdominal Exam: Distended Assessment and Plan (1) Cellulitis Status: Acute (2) ESRD (end stage renal disease) Status: Acute (3) AD (Alzheimer's disease) Status: Acute
[2017-09-20] MEDS: (Lantus) Insulin Glargine, Recombinant SC SCH (21:28)
[2017-09-21] MEDS: Levothyroxine 50 MCG TAB PO SCH (05:57)
[2017-09-21] MEDS: (Novolin R) Insulin Human Regular 100 units/ml vial SC SCH ×4 (08:22→22:47)
[2017-09-21 08:57] LABS: ALB/GLOB RATIO 1.3 (1.0-2.1); ALBUMIN 3.6 g/dL (3.5-5.0); ALT/SGPT 22 U/L (21-72); AST/SGOT 22 U/L (17-59); BLOOD UREA NITROGEN 15 mg/dL (9-20); CALCIUM 8.6 mg/dl (8.6-10.4); GFR AFRICAN-AMERICAN > 60; GFR NON-AFRICAN AMERICAN 58; MAGNESIUM 1.7 mg/dL (1.6-2.3)
[2017-09-21] MEDS: Metoprolol Succinate 25 mg XL Tab PO SCH (09:55)
--- NOTE | 2017-09-21 10:20 | CP.PCM.PN ---
Subjective - Date & Time of Evaluation Date of Evaluation: 09/21/17 Time of Evaluation: 10:00 - Subjective Subjective: Hospitalist Progress Note Patient was seen and examined at 10:00 AM 09/21/17 Bed 365 B Please see individual Assessment and Plans below for a summary of his medical problems. Patient is awaiting [facility] Cusak placement. Currently upon FULL ROS there are NO complaints Exam: General: He is in NO apparent distress. He is alert. HEENT: NCA, PERRLA, EOMI, NO pharyngeal erythema/exudate, NO lymphadenopathy, NO thyromegaly, Nasal Turbinates are nonerythematous/nonedematous Cardio: NS1 and NS2, NO M/R/G Resp: CTA B/L, NO R/R/W GI: BSx4, Soft, NT, ND, NO HSM, NO guarding/rebound tenderness Ext: Pulses are strong and equal, Capillary Refill is 2 seconds, Pulses are strong and equal Neuro: CN II through XII are grossly intact Discharge Diagnoses (1) Cellulitis; Possible Infected Permacath Site * General surgery (Dr. Boyce) on board-->help appreciated * Infectious Disease (Dr Langford) on board-->help appreciated * Patient is postoperative day 4 Permcath 09/16/17-->f/u culture * Blood culture: no growth after negative for 5 days * Patient started on Zosyn and Vancomycin on admission; d/c Vancomycin in light of rise in creatinine during hospitalization * Monitor surgical site * Remains afebrile and no elevated white count * Keflex 500mg PO Q 12H (to finish 09/22/17) (2) Prior Hx Enterococcus faecium Bacteremia-->stable completed PO Abx for 5 days at time of discharge * Infectious Disease (Dr. Langford) on the board * Patient has completed IV abx and completed PO antibiotic upon discharge last admission * Blood cultures showed no growth 5 days X2 (3).History of Atrial Fibrillation * c/w Toprol XL 25mg PO daily (patient was off beta-elkin prior secondary to cardiac arrest on 07/20/17) * Aspirin 81mg PO daily (4).Acute Renal Insufficiency * Nephrology (Dr. Oconnell) on consult help appreciated * Patient no longer needs Permcath; has not needed dialysis for 2 weeks * Patient has completed 24-hour urine collection. * Patient is on gentle IV hydration. Creatinine has improved 1.3 (5). Hx CVA-->Chronic Assessment and Plan: * CT Head 07/13/17 was negative for bleed or acute process * c/w Aspirin 81mg PO daily and Plavix 75mg PO daily * c/w Crestor 10mg POqHS Status: Chronic (6) AD (Alzheimer's disease) Assessment and Plan: * Aricept 10 mg PO daily Status: Chronic (7) Anemia Assessment and Plan: * Likely secondary to Chronic Disease: CKD Stage III * Resume Ferrous Sulfate 325 mg PO daily. * Epocrit 10,000 unit IV MWF * HgB/Hct are stable * c/w aspirin/Plavix given hx of stroke Status: Chronic (8) Hx Left Gluteal abscess Assessment and Plan: * Was I&D by surgery team on 06/26/17 * Treated with Bactrim 800/160 PO Q12H for 7 days S/P discharge 06/27/17 Status: Chronic (9) HLD (hyperlipidemia) Assessment and Plan: * Lopid 600 mg PO BID * Patient takes Lipitor 80 mg PO HS which is not on formulary therefore Crestor 10 mg PO HS (renal dosed). Status: Chronic (10) HTN (hypertension) Assessment and Plan: * Toprol XL 50mg Po Daily Status: Chronic (11) Diabetes Assessment and Plan: * Diabetic Diet * Accuchecks QAC and HS * hold Aspirin 81mg Po daily * Crestor 10mg POqHS * Lantus 10 units subqHS * [id number]: 8.3 Status: Chronic (12) History of hypothyroidism Assessment and Plan: * Levothyroxine 50 mcg PO in the morning * TSH, Free T4 are normal Status: Chronic (13) Overactive bladder Assessment and Plan: * Festerodine 8 mg PO 1x/day none available on hospital formulary. * Enlarged Prostate on CT Abdomen/Pelvis in prior hospitalization * PSA >23.3--->Will need to be follow-up by urology as outpatient with repeat PSA Status: Chronic (14) Hx of glaucoma Assessment and Plan: * Patient's home med Travatan ggt not on formulary. * Started Xalatan ggt in bilateral eyes. Status: Chronic (15) Hx of gastroesophageal reflux (GERD) Assessment and Plan: * Pepcid 20mg PO daily Status: Chronic (16) History of Thrombocytopenia (Normalized) Assessment and Plan: * c/w Aspirin 81mg PO daily and Plavix 75mg PO daily * Normalized * heparin 5000 units subq8H (17) Prophylactic measure Assessment and Plan: * Pepcid 20mg PO daily * SCDs * Ascorbic Acid 250 mg PO daily * Florastor 250 mg PO 2x/day * PT eval: eval * Subacute rehab eval * Tolerating diet * Lyndsey Youssef (niece): [phone] * s/p dialysis access removal 09/16/17 09/21/17: Spoke with Door Tr[employer] and we are awaiting insurance authorization for Tawana JACOBOLakesha Malin D.O. Objective - Vital Signs/Intake and Output Vital Signs (last 24 hours): Temp Pulse Resp BP Pulse Ox 97.9 F 74 20 128/65 96 09/21/17 08:31 09/21/17 08:31 09/21/17 08:31 09/21/17 08:31 09/21/17 08:31 Intake and Output: 09/21/17 09/21/17 06:59 18:59 Intake Total 360 Output Total 300 Balance 60 - Medications Medications: Current Medications Amlodipine Besylate (Norvasc) 10 mg PO DAILY [facility] Last Admin: 09/21/17 10:00 Dose: 10 mg Ascorbic Acid (Vitamin C 250 Mg Tab) 250 mg PO DAILY [facility] Last Admin: 09/21/17 09:55 Dose: 250 mg Aspirin (Aspirin Chewable) 81 mg PO DAILY [facility] Last Admin: 09/21/17 09:55 Dose: 81 mg Cephalexin Monohydrate (Keflex) 500 mg PO Q12H [facility] Stop: 09/22/17 23:59 Last Admin: 09/21/17 05:59 Dose: 500 mg Clopidogrel Bisulfate (Plavix) 75 mg PO DAILY [facility] Last Admin: 09/21/17 09:55 Dose: 75 mg Donepezil HCl (Aricept) 10 mg PO HS [facility] Last Admin: 09/20/17 21:27 Dose: 10 mg Famotidine (Pepcid) 20 mg PO DAILY [facility] Last Admin: 09/21/17 09:55 Dose: 20 mg Ferrous Sulfate (Feosol) 325 mg PO BID [facility] Last Admin: 09/21/17 09:55 Dose: 325 mg Heparin Sodium (Porcine) (Heparin) 5,000 units SC Q8 [facility] Last Admin: 09/21/17 05:57 Dose: 5,000 units Insulin Glargine (Lantus) 10 unit SC HS [facility] Last Admin: 09/20/17 21:28 Dose: 10 unit Insulin Human Regular (Novolin R) 0 unit SC [facility] PRN Reason: Protocol Last Admin: 09/21/17 08:22 Dose: Not Given Levothyroxine Sodium (Synthroid) 50 mcg PO DAILY@0630 [facility] Last Admin: 09/21/17 05:57 Dose: 50 mcg Metoprolol Succinate (Toprol Xl) 25 mg PO DAILY [facility] Last Admin: 09/21/17 09:55 Dose: 25 mg - Labs Labs: 09/20/17 09:12 09/21/17 08:30 PT 11.3 SECONDS (9.7-12.2) 09/16/17 08:58 INR 1.0 09/16/17 08:58 APTT 30 SECONDS (21-34) 09/15/17 06:28
[2017-09-21 10:58] LABS: BASO # 0.1 K/uL (0.0-0.2); BASO % 1.3 % (0.0-2.0); EOS # 0.3 K/uL (0.0-0.7); EOS % 3.3 % (0.0-4.0); HEMOGLOBIN 10.6 g/dL (12.0-18.0); LYMPH # 2.5 K/uL (1.0-4.3); LYMPH % 25.6 % (20.0-40.0); MEAN CELL VOLUME 85.3 fL (80.0-94.0); MEAN CORPUSCULAR HEMOGLOBIN 28.9 pg (27.0-31.0); MEAN CORPUSCULAR HGB CONC 33.9 g/dL (33.0-37.0); MEAN PLATELET VOLUME 8.1 fL (7.2-11.7); MONO # 0.7 K/uL (0.0-0.8); MONO % 7.2 % (0.0-10.0); NEUT # 6.1 K/uL (1.8-7.0); NEUT % 62.6 % (50.0-75.0); RBC 3.66 Mil/uL (4.40-5.90); RED CELL DISTRIBUTION WIDTH 15.5 % (11.5-14.5); WHITE BLOOD COUNT 9.8 K/uL (4.8-10.8)
--- NOTE | 2017-09-21 12:13 | CP.PCM.PN ---
Subjective - Date & Time of Evaluation Date of Evaluation: 09/21/17 Time of Evaluation: 12:11 - Subjective Subjective: No new events Awaiting placement Creat stable at 1.2 no complaints Objective - Vital Signs/Intake and Output Vital Signs (last 24 hours): Temp Pulse Resp BP Pulse Ox 97.9 F 74 20 128/65 96 09/21/17 08:31 09/21/17 08:31 09/21/17 08:31 09/21/17 08:31 09/21/17 08:31 Intake and Output: 09/21/17 09/21/17 06:59 18:59 Intake Total 360 Output Total 300 Balance 60 - Medications Medications: Current Medications Amlodipine Besylate (Norvasc) 10 mg PO DAILY [facility] Last Admin: 09/21/17 10:00 Dose: 10 mg Ascorbic Acid (Vitamin C 250 Mg Tab) 250 mg PO DAILY [facility] Last Admin: 09/21/17 09:55 Dose: 250 mg Aspirin (Aspirin Chewable) 81 mg PO DAILY [facility] Last Admin: 09/21/17 09:55 Dose: 81 mg Cephalexin Monohydrate (Keflex) 500 mg PO Q12H [facility] Stop: 09/22/17 23:59 Last Admin: 09/21/17 05:59 Dose: 500 mg Clopidogrel Bisulfate (Plavix) 75 mg PO DAILY [facility] Last Admin: 09/21/17 09:55 Dose: 75 mg Donepezil HCl (Aricept) 10 mg PO HS [facility] Last Admin: 09/20/17 21:27 Dose: 10 mg Famotidine (Pepcid) 20 mg PO DAILY [facility] Last Admin: 09/21/17 09:55 Dose: 20 mg Ferrous Sulfate (Feosol) 325 mg PO BID [facility] Last Admin: 09/21/17 09:55 Dose: 325 mg Heparin Sodium (Porcine) (Heparin) 5,000 units SC Q8 [facility] Last Admin: 09/21/17 05:57 Dose: 5,000 units Insulin Glargine (Lantus) 10 unit SC HS [facility] Last Admin: 09/20/17 21:28 Dose: 10 unit Insulin Human Regular (Novolin R) 0 unit SC ACHS [facility] PRN Reason: Protocol Last Admin: 09/21/17 08:22 Dose: Not Given Latanoprost (Xalatan Opht) 0 ml OU HS [facility] Levothyroxine Sodium (Synthroid) 50 mcg PO DAILY@0630 [facility] Last Admin: 09/21/17 05:57 Dose: 50 mcg Metoprolol Succinate (Toprol Xl) 25 mg PO DAILY [facility] Last Admin: 09/21/17 09:55 Dose: 25 mg Rosuvastatin Calcium (Crestor) 10 mg PO HS [facility] - Labs Labs: 09/21/17 10:55 09/21/17 08:30 PT 11.3 SECONDS (9.7-12.2) 09/16/17 08:58 INR 1.0 09/16/17 08:58 APTT 30 SECONDS (21-34) 09/15/17 06:28 - Constitutional Appears: No Acute Distress, Chronically Ill - Head Exam Head Exam: ATRAUMATIC, NORMAL INSPECTION - Eye Exam Eye Exam: EOMI, Normal appearance - Neck Exam Neck Exam: Normal Inspection. absent: Tenderness - Respiratory Exam Respiratory Exam: Clear to Ausculation Bilateral, NORMAL BREATHING PATTERN - Cardiovascular Exam Cardiovascular Exam: REGULAR RHYTHM, +S1 - GI/Abdominal Exam GI & Abdominal Exam: Soft. absent: Tenderness - Extremities Exam Extremities Exam: Normal Inspection. absent: Tenderness - Neurological Exam Neurological Exam: Awake, CN II-XII Intact - Psychiatric Exam Psychiatric exam: Flat Affect - Skin Skin Exam: Dry, Warm Assessment and Plan (1) Dementia Status: Acute (2) HTN (hypertension) Status: Acute (3) Cellulitis Status: Acute - Assessment and Plan (Free Text) Plan: Renal function stable- see again as needed
[2017-09-21] MEDS ORDERED: Latanoprost 2.5 ml Opht Soln OU SCH (22:00)
[2017-09-21] MEDS: (Lantus) Insulin Glargine, Recombinant SC SCH (22:46)
[2017-09-22] MEDS: Levothyroxine 50 MCG TAB PO SCH (05:48)
[2017-09-22 08:28] VITALS: PULSE 76; TEMP 98.4
[2017-09-22] MEDS: (Novolin R) Insulin Human Regular 100 units/ml vial SC SCH ×2 (08:54→12:36)
[2017-09-22 11:33] VITALS: BP 135/78; O2SAT 98
[2017-09-22] MEDS: Metoprolol Succinate 25 mg XL Tab PO SCH (12:32)
--- NOTE | 2017-09-22 19:20 | CP.PCM.DIS ---
<ChuckcelineJerson - Last Filed: 09/22/17 19:16> Provider - Provider Date of Admission: 09/14/17 18:33 Attending physician: Jonnathan Malin MD Consults: Nephro - Dr. Oconnell. ID - Dr. Langford Surgery - Dr. Boyce Palliative Care: Lidia Carey Time Spent in preparation of Discharge (in minutes): 40 Hospital Course - Lab Results Lab Results: Micro Results 09/14/17 19:00 Blood Blood Culture - Final NO GROWTH AFTER 5 DAYS 09/14/17 19:00 Blood Gram Stain - Final TEST NOT PERFORMED 09/14/17 19:30 Blood Blood Culture - Final NO GROWTH AFTER 5 DAYS 09/14/17 19:30 Blood Gram Stain - Final TEST NOT PERFORMED Most Recent Lab Values WBC 9.8 K/uL (4.8-10.8) 09/21/17 10:55 RBC 3.66 Mil/uL (4.40-5.90) L 09/21/17 10:55 Hgb 10.6 g/dL (12.0-18.0) L 09/21/17 10:55 Hct 31.2 % (35.0-51.0) L 09/21/17 10:55 MCV 85.3 fL (80.0-94.0) 09/21/17 10:55 MCH 28.9 pg (27.0-31.0) 09/21/17 10:55 MCHC 33.9 g/dL (33.0-37.0) 09/21/17 10:55 RDW 15.5 % (11.5-14.5) H 09/21/17 10:55 Plt Count 254 K/uL (130-400) 09/21/17 10:55 MPV 8.1 fL (7.2-11.7) 09/21/17 10:55 Neut % (Auto) 62.6 % (50.0-75.0) 09/21/17 10:55 Lymph % (Auto) 25.6 % (20.0-40.0) 09/21/17 10:55 [place] % (Auto) 7.2 % (0.0-10.0) 09/21/17 10:55 Eos % (Auto) 3.3 % (0.0-4.0) 09/21/17 10:55 Baso % (Auto) 1.3 % (0.0-2.0) 09/21/17 10:55 Neut # 6.1 K/uL (1.8-7.0) 09/21/17 10:55 Lymph # 2.5 K/uL (1.0-4.3) 09/21/17 10:55 [place] # 0.7 K/uL (0.0-0.8) 09/21/17 10:55 Eos # 0.3 K/uL (0.0-0.7) 09/21/17 10:55 Baso # 0.1 K/uL (0.0-0.2) 09/21/17 10:55 PT 11.3 SECONDS (9.7-12.2) 09/16/17 08:58 INR 1.0 09/16/17 08:58 APTT 30 SECONDS (21-34) 09/15/17 06:28 Plt Function Assay 131 K/uL 09/15/17 17:02 Sodium 131 mmol/L (132-148) L 09/21/17 08:30 Potassium 4.1 mmol/L (3.6-5.2) 09/21/17 08:30 Chloride 100 mmol/L (98-107) 09/21/17 08:30 Carbon Dioxide 21 mmol/L (22-30) L 09/21/17 08:30 Anion Gap 14 (10-20) 09/21/17 08:30 BUN 15 mg/dL (9-20) 09/21/17 08:30 Creatinine 1.2 mg/dL (0.8-1.5) 09/21/17 08:30 Est GFR ( Amer) > 60 09/21/17 08:30 Est GFR (Non-Af Amer) 58 09/21/17 08:30 POC Glucose (mg/dL) 297 mg/dL (65-110) H 09/22/17 11:14 Random Glucose 120 mg/dL (75-110) H 09/21/17 08:30 Calcium 8.6 mg/dl (8.6-10.4) 09/21/17 08:30 Phosphorus 3.1 mg/dL (2.5-4.5) 09/20/17 09:12 Magnesium 1.7 mg/dL (1.6-2.3) 09/21/17 08:30 Total Bilirubin 0.3 mg/dL (0.2-1.3) 09/21/17 08:30 AST 22 U/L (17-59) 09/21/17 08:30 ALT 22 U/L (21-72) 09/21/17 08:30 Alkaline Phosphatase 65 U/L (38-126) 09/21/17 08:30 Total Protein 6.4 g/dL (6.3-8.3) 09/21/17 08:30 Albumin 3.6 g/dL (3.5-5.0) 09/21/17 08:30 Globulin 2.8 gm/dL (2.2-3.9) 09/21/17 08:30 Albumin/Globulin Ratio 1.3 (1.0-2.1) 09/21/17 08:30 Urine Color Straw (YELLOW) 09/16/17 07:51 Urine Clarity Clear (Clear) 09/16/17 07:51 Urine pH 5.0 (5.0-8.0) 09/16/17 07:51 Ur Specific [place] 1.018 (1.003-1.030) 09/16/17 07:51 Urine Protein Negative mg/dL (NEGATIVE) 09/16/17 07:51 Urine Glucose (UA) Normal mg/dL (Normal) 09/16/17 07:51 Urine Ketones Negative mg/dL (NEGATIVE) 09/16/17 07:51 Urine Blood Negative (NEGATIVE) 09/16/17 07:51 Urine Nitrate Negative (NEGATIVE) 09/16/17 07:51 Urine Bilirubin Negative (NEGATIVE) 09/16/17 07:51 Urine Urobilinogen Normal mg/dL (0.2-1.0) 09/16/17 07:51 Ur Leukocyte Esterase Neg David/uL (Negative) 09/16/17 07:51 Urine RBC (Auto) < 1 /hpf (0-3) 09/16/17 07:51 Ur Squamous Epith Cells < 1 /hpf (0-5) 09/16/17 07:51 Urine Collection Time 24 HRS 09/17/17 14:30 Urine Total Volume 1400 mL 09/17/17 14:30 Creatinine Clearance 27.0 mL/min (107-139) L 09/17/17 14:30 Random Vancomycin 21.79 ug/mL 09/16/17 08:31 - Hospital Course Hospital Course: This is an 82 year old male with PMHx HTN, DM, HLD, CVA 2013, dementia, CKD who presented complaining of pain at the site of the permacath on the left side of his chest wall. Was admitted for possible infected permacath. Nephro, ID, and Surgery were consulted on the case. Per Nephro, patient no longer needs permcath. Patient was stated on IV antibiotics and finished on PO antibiotics by discharge. Permcath was removed on 09/16. Blood Culture NEGATIVE x 5 days. Patient completed antibiotic course in the hospital. Patient to be discharged home with services. Patient and family agreeable with plan. Discharge Diagnoses (1) Cellulitis; Possible Infected Permacath Site * General surgery (Dr. Boyce) on board-->help appreciated * Infectious Disease (Dr Langford) on board-->help appreciated * Patient is postoperative day 4 Permcath 09/16/17-->f/u culture * Blood culture: no growth after negative for 5 days * Patient started on Zosyn and Vancomycin on admission; d/c Vancomycin in light of rise in creatinine during hospitalization * Monitor surgical site * Remains afebrile and no elevated white count * Keflex 500mg PO Q 12H (to finish 09/22/17) (2) Prior Hx Enterococcus faecium Bacteremia-->stable completed PO Abx for 5 days at time of discharge * Infectious Disease (Dr. Langford) on the board * Patient has completed IV abx and completed PO antibiotic upon discharge last admission * Blood cultures showed no growth 5 days X2 (3).History of Atrial Fibrillation * c/w Toprol XL 25mg PO daily (patient was off beta-elkin prior secondary to cardiac arrest on 07/20/17) * Aspirin 81mg PO daily (4).Acute Renal Insufficiency * Nephrology (Dr. Oconnell) on consult help appreciated * Patient no longer needs Permcath; has not needed dialysis for 2 weeks * Patient has completed 24-hour urine collection. * Patient is on gentle IV hydration. Creatinine has improved 1.3 (5). Hx CVA-->Chronic Assessment and Plan: * CT Head 07/13/17 was negative for bleed or acute process * c/w Aspirin 81mg PO daily and Plavix 75mg PO daily * c/w Crestor 10mg POqHS Status: Chronic (6) AD (Alzheimer's disease) Assessment and Plan: * Aricept 10 mg PO daily Status: Chronic (7) Anemia Assessment and Plan: * Likely secondary to Chronic Disease: CKD Stage III * Resume Ferrous Sulfate 325 mg PO daily. * Epocrit 10,000 unit IV MWF * HgB/Hct are stable * c/w aspirin/Plavix given hx of stroke Status: Chronic (8) Hx Left Gluteal abscess Assessment and Plan: * Was I&D by surgery team on 06/26/17 * Treated with Bactrim 800/160 PO Q12H for 7 days S/P discharge 06/27/17 Status: Chronic (9) HLD (hyperlipidemia) Assessment and Plan: * Lopid 600 mg PO BID * Patient takes Lipitor 80 mg PO HS which is not on formulary therefore Crestor 10 mg PO HS (renal dosed). Status: Chronic (10) HTN (hypertension) Assessment and Plan: * Toprol XL 50mg Po Daily Status: Chronic (11) Diabetes Assessment and Plan: * Diabetic Diet * Accuchecks QAC and HS * hold Aspirin 81mg Po daily * Crestor 10mg POqHS * Lantus 10 units subqHS * [id number]: 8.3 Status: Chronic (12) History of hypothyroidism Assessment and Plan: * Levothyroxine 50 mcg PO in the morning * TSH, Free T4 are normal Status: Chronic (13) Overactive bladder Assessment and Plan: * Festerodine 8 mg PO 1x/day none available on hospital formulary. * Enlarged Prostate on CT Abdomen/Pelvis in prior hospitalization * PSA >23.3--->Will need to be follow-up by urology as outpatient with repeat PSA Status: Chronic (14) Hx of glaucoma Assessment and Plan: * Patient's home med Travatan ggt not on formulary. * Started Xalatan ggt in bilateral eyes. Status: Chronic (15) Hx of gastroesophageal reflux (GERD) Assessment and Plan: * Pepcid 20mg PO daily Status: Chronic (16) History of Thrombocytopenia (Normalized) Assessment and Plan: * c/w Aspirin 81mg PO daily and Plavix 75mg PO daily * Normalized * heparin 5000 units subq8H (17) Prophylactic measure Assessment and Plan: * Pepcid 20mg PO daily * SCDs * Ascorbic Acid 250 mg PO daily * Florastor 250 mg PO 2x/day * PT eval: eval * Subacute rehab eval * Tolerating diet * Lyndsey Youssef (niece): [phone] * s/p dialysis access removal 09/16/17 - Date & Time of H&P Date of H&P: 09/22/17 Time of H&P: 09:20 Discharge Exam - Head Exam Head Exam: ATRAUMATIC, NORMAL INSPECTION - Additional Findings Additional findings: - Additional Findings Additional findings: - Constitutional Appears: No Acute Distress - Head Exam Head Exam: ATRAUMATIC, NORMAL INSPECTION, NORMOCEPHALIC - Eye Exam Eye Exam: EOMI, Normal appearance, PERRL Pupil Exam: NORMAL ACCOMODATION, PERRL - ENT Exam ENT Exam: Mucous Membranes Moist, Normal Exam - Neck Exam Neck exam: Positive for: Normal Inspection - Respiratory Exam Respiratory Exam: Decreased Breath Sounds, Clear to Auscultation Bilateral, NORMAL BREATHING PATTERN - Cardiovascular Exam Cardiovascular Exam: REGULAR RHYTHM, permacath removal site clean, non- erythematous - GI/Abdominal Exam GI & Abdominal Exam: Normal Bowel Sounds, Soft - Rectal Exam Rectal Exam: Deferred - Extremities Exam Extremities exam: Positive for: normal inspection - Back Exam Back exam: NORMAL INSPECTION - Neurological Exam Neurological exam: Alert, Altered - Psychiatric Exam Psychiatric exam: Flat Affect - Skin Skin Exam: Normal Color, Warm Discharge Plan - Follow Up Plan Condition: FAIR Disposition: DISCHARGED TO HOME CARE Instructions: Cellulitis (DC), Dialysis Diet (DC), End Stage Kidney Disease (DC ) Additional Instructions: Patient continues to be medically stable when family is available to pick him up. Patient to follow-up with IDR[facility] Rivera wherein he will need a repeat PSA. Patient has completed antibiotics while in the hospital. -Can take dressing off. -Ok to shower. Referrals: Cornelia Sullivan MD [Staff Provider] - <Gladys Menchaca V - Last Filed: 09/25/17 00:22> Provider - Provider Date of Admission: 09/14/17 18:33 Attending physician: Jonnathan Malin MD Hospital Course - Lab Results Lab Results: Micro Results 09/14/17 19:00 Blood Blood Culture - Final NO GROWTH AFTER 5 DAYS 09/14/17 19:00 Blood Gram Stain - Final TEST NOT PERFORMED 09/14/17 19:30 Blood Blood Culture - Final NO GROWTH AFTER 5 DAYS 09/14/17 19:30 Blood Gram Stain - Final TEST NOT PERFORMED Most Recent Lab Values WBC 9.8 K/uL (4.8-10.8) 09/21/17 10:55 RBC 3.66 Mil/uL (4.40-5.90) L 09/21/17 10:55 Hgb 10.6 g/dL (12.0-18.0) L 09/21/17 10:55 Hct 31.2 % (35.0-51.0) L 09/21/17 10:55 MCV 85.3 fL (80.0-94.0) 09/21/17 10:55 MCH 28.9 pg (27.0-31.0) 09/21/17 10:55 MCHC 33.9 g/dL (33.0-37.0) 09/21/17 10:55 RDW 15.5 % (11.5-14.5) H 09/21/17 10:55 Plt Count 254 K/uL (130-400) 09/21/17 10:55 MPV 8.1 fL (7.2-11.7) 09/21/17 10:55 Neut % (Auto) 62.6 % (50.0-75.0) 09/21/17 10:55 Lymph % (Auto) 25.6 % (20.0-40.0) 09/21/17 10:55 [place] % (Auto) 7.2 % (0.0-10.0) 09/21/17 10:55 Eos % (Auto) 3.3 % (0.0-4.0) 09/21/17 10:55 Baso % (Auto) 1.3 % (0.0-2.0) 09/21/17 10:55 Neut # 6.1 K/uL (1.8-7.0) 09/21/17 10:55 Lymph # 2.5 K/uL (1.0-4.3) 09/21/17 10:55 [place] # 0.7 K/uL (0.0-0.8) 09/21/17 10:55 Eos # 0.3 K/uL (0.0-0.7) 09/21/17 10:55 Baso # 0.1 K/uL (0.0-0.2) 09/21/17 10:55 PT 11.3 SECONDS (9.7-12.2) 09/16/17 08:58 INR 1.0 09/16/17 08:58 APTT 30 SECONDS (21-34) 09/15/17 06:28 Plt Function Assay 131 K/uL 09/15/17 17:02 Sodium 131 mmol/L (132-148) L 09/21/17 08:30 Potassium 4.1 mmol/L (3.6-5.2) 09/21/17 08:30 Chloride 100 mmol/L (98-107) 09/21/17 08:30 Carbon Dioxide 21 mmol/L (22-30) L 09/21/17 08:30 Anion Gap 14 (10-20) 09/21/17 08:30 BUN 15 mg/dL (9-20) 09/21/17 08:30 Creatinine 1.2 mg/dL (0.8-1.5) 09/21/17 08:30 Est GFR ( Amer) > 60 09/21/17 08:30 Est GFR (Non-Af Amer) 58 09/21/17 08:30 POC Glucose (mg/dL) 297 mg/dL (65-110) H 09/22/17 11:14 Random Glucose 120 mg/dL (75-110) H 09/21/17 08:30 Calcium 8.6 mg/dl (8.6-10.4) 09/21/17 08:30 Phosphorus 3.1 mg/dL (2.5-4.5) 09/20/17 09:12 Magnesium 1.7 mg/dL (1.6-2.3) 09/21/17 08:30 Total Bilirubin 0.3 mg/dL (0.2-1.3) 09/21/17 08:30 AST 22 U/L (17-59) 09/21/17 08:30 ALT 22 U/L (21-72) 09/21/17 08:30 Alkaline Phosphatase 65 U/L (38-126) 09/21/17 08:30 Total Protein 6.4 g/dL (6.3-8.3) 09/21/17 08:30 Albumin 3.6 g/dL (3.5-5.0) 09/21/17 08:30 Globulin 2.8 gm/dL (2.2-3.9) 09/21/17 08:30 Albumin/Globulin Ratio 1.3 (1.0-2.1) 09/21/17 08:30 Urine Color Straw (YELLOW) 09/16/17 07:51 Urine Clarity Clear (Clear) 09/16/17 07:51 Urine pH 5.0 (5.0-8.0) 09/16/17 07:51 Ur Specific [place] 1.018 (1.003-1.030) 09/16/17 07:51 Urine Protein Negative mg/dL (NEGATIVE) 09/16/17 07:51 Urine Glucose (UA) Normal mg/dL (Normal) 09/16/17 07:51 Urine Ketones Negative mg/dL (NEGATIVE) 09/16/17 07:51 Urine Blood Negative (NEGATIVE) 09/16/17 07:51 Urine Nitrate Negative (NEGATIVE) 09/16/17 07:51 Urine Bilirubin Negative (NEGATIVE) 09/16/17 07:51 Urine Urobilinogen Normal mg/dL (0.2-1.0) 09/16/17 07:51 Ur Leukocyte Esterase Neg David/uL (Negative) 09/16/17 07:51 Urine RBC (Auto) < 1 /hpf (0-3) 09/16/17 07:51 Ur Squamous Epith Cells < 1 /hpf (0-5) 09/16/17 07:51 Urine Collection Time 24 HRS 09/17/17 14:30 Urine Total Volume 1400 mL 09/17/17 14:30 Creatinine Clearance 27.0 mL/min (107-139) L 09/17/17 14:30 Random Vancomycin 21.79 ug/mL 09/16/17 08:31 Attending/Attestation - Attestation I have personally seen and examined this patient.: Yes I have fully participated in the care of the patient.: Yes I have reviewed all pertinent clinical information, including history, physical exam and plan: Yes Notes (Text): This is late computer entry for 09/22/17. Patient seen, examined, and case discussed with day-time resident. Patient denies acute compliants. Discussed with case management and pediatric social worker, patient's family decided to bring patient home instead of subacute rehab. Patient to finish last day of antibiotics today. Case management to setup patient with home with services. Discharge order and discharge instructions discussed with day-time resident. No new prescriptions upon discharge. This is summary of patient's hospitalization. Please see EMR for further details. Discharge Diagnoses: (1) Cellulitis; Possible Infected Permacath Site--.Resolved * General surgery (Dr. Boyce) on board-->help appreciated * Infectious Disease (Dr Langford) on board-->help appreciated * Patient is postoperative day 4 Permcath 09/16/17- * Blood culture: no growth after negative for 5 days * Patient started on Zosyn and Vancomycin on admission; d/c Vancomycin in light of rise in creatinine during hospitalization * Monitor surgical site * Remains afebrile and no elevated white count * Keflex 500mg PO Q 12H (to finish last dose 09/22/17) (2) Prior Hx Enterococcus faecium Bacteremia-->stable completed PO Abx for 5 days at time of discharge 08/07/17-->Resolved * Infectious Disease (Dr. Langford) on the board * Patient has completed IV abx and completed PO antibiotic upon discharge last admission * Blood cultures showed no growth 5 days X2 (3).History of Atrial Fibrillation--> chronic * c/w Toprol XL 25mg PO daily (patient was off beta-elkin prior secondary to cardiac arrest on 07/20/17) * Aspirin 81mg PO daily (4).Acute Renal Insufficiency-->resolved * Nephrology (Dr. Oconnell) on consult help appreciated * Patient no longer needs Permcath; has not needed dialysis for 2 weeks * Patient has completed 24-hour urine collection. * Patient is on gentle IV hydration. Creatinine has improved 1.3 (5). Hx CVA-->Chronic--->resolved Assessment and Plan: * CT Head 07/13/17 was negative for bleed or acute process * c/w Aspirin 81mg PO daily and Plavix 75mg PO daily * c/w Crestor 10mg POqHS Status: Chronic (6) AD (Alzheimer's disease)--> chronic Assessment and Plan: * Aricept 10 mg PO daily Status: Chronic (7) Anemia--chronic Assessment and Plan: * Likely secondary to Chronic Disease: CKD Stage III * Resume Ferrous Sulfate 325 mg PO daily. * Epocrit 10,000 unit IV MWF * HgB/Hct are stable * c/w aspirin/Plavix given hx of stroke Status: Chronic (8) Hx Left Gluteal abscess-->resolved Assessment and Plan: * Was I&D by surgery team on 06/26/17 * Treated with Bactrim 800/160 PO Q12H for 7 days S/P discharge 06/27/17 Status: Chronic (9) HLD (hyperlipidemia)-->chronic Assessment and Plan: * Lopid 600 mg PO BID * Patient takes Lipitor 80 mg PO HS which is not on formulary therefore Crestor 10 mg PO HS (renal dosed). Status: Chronic (10) HTN (hypertension)-->chronic Assessment and Plan: * Toprol XL 50mg Po Daily Status: Chronic (11) Diabetes-->chronic Assessment and Plan: * Diabetic Diet * Accuchecks QAC and HS * hold Aspirin 81mg Po daily * Crestor 10mg POqHS * Lantus 10 units subqHS * [id number]: 8.3 Status: Chronic (12) History of hypothyroidism-->chronic Assessment and Plan: * Levothyroxine 50 mcg PO in the morning * TSH, Free T4 are normal Status: Chronic (13) Overactive bladder-->chronic Assessment and Plan: * Festerodine 8 mg PO 1x/day none available on hospital formulary. * Enlarged Prostate on CT Abdomen/Pelvis in prior hospitalization * PSA >23.3--->Will need to be follow-up by urology as outpatient with repeat PSA Status: Chronic (14) Hx of glaucoma-->chronic Assessment and Plan: * Patient's home med Travatan ggt not on formulary. * Started Xalatan ggt in bilateral eyes. Status: Chronic (15) Hx of gastroesophageal reflux (GERD)-->chronic Assessment and Plan: * Pepcid 20mg PO daily Status: Chronic (16) History of Thrombocytopenia (Normalized) Assessment and Plan: * c/w Aspirin 81mg PO daily and Plavix 75mg PO daily * Normalized * heparin 5000 units subq8H (17) Prophylactic measure Assessment and Plan: * Pepcid 20mg PO daily * SCDs * Ascorbic Acid 250 mg PO daily * Florastor 250 mg PO 2x/day * PT eval: eval * Subacute rehab eval * Tolerating diet * Lyndsey Youssef ([facility]): [phone] * s/p dialysis access removal 09/16/17
--- NOTE | 2017-09-23 16:37 | CARD ---
APPROVED REPORT EKG Measurement Heart [id number] <Conclusion> Normal sinus rhythm Left axis deviation T wave abnormality, nonspecific Abnormal ECG
--- NOTE | 2017-09-23 16:39 | CARD ---
APPROVED REPORT EKG Measurement Heart [id number] [place] [id number] <Conclusion> Normal sinus rhythm Left anterior fascicular block Moderate voltage criteria for LVH, may be normal variant T wave abnormality, consider lateral ischemia Prolonged QT Abnormal ECG
== END 2017-09-22 14:30 | disposition home health service (06) | DRG 315 ==
LOC: C.ER 14:14 → C.9E 18:33 → C.3T 19:09
PROVIDERS: ADMIT Family Medicine; ATTEND Family Medicine
PROC: 0JPT0XZ Removal of Tunneled Vascular Access Device from Trunk Subcutaneous Tissue and Fascia, Open Approach (ICD-10-PCS; principal; 2017-09-16 13:15)
DX: T80.212A Local infection due to central venous catheter, initial encounter (principal); L03.313 Cellulitis of chest wall; D69.6 Thrombocytopenia, unspecified; E11.22 Type 2 diabetes mellitus with diabetic chronic kidney disease; I48.91 Unspecified atrial fibrillation; N18.3 Chronic kidney disease, stage 3 (moderate); Y84.8 Other medical procedures as the cause of abnormal reaction of the patient, or of later complication, without mention of misadventure at the time of the procedure; I12.9 Hypertensive chronic kidney disease with stage 1 through stage 4 chronic kidney disease, or unspecified chronic kidney disease; D63.1 Anemia in chronic kidney disease; E03.9 Hypothyroidism, unspecified; E78.00 Pure hypercholesterolemia, unspecified; E78.5 Hyperlipidemia, unspecified; G30.9 Alzheimer's disease, unspecified; F02.80 Dementia in other diseases classified elsewhere, unspecified severity, without behavioral disturbance, psychotic disturbance, mood disturbance, and anxiety; K21.9 Gastro-esophageal reflux disease without esophagitis; N32.81 Overactive bladder; R32 Unspecified urinary incontinence; N28.9 Disorder of kidney and ureter, unspecified; N40.0 Benign prostatic hyperplasia without lower urinary tract symptoms; Z79.4 Long term (current) use of insulin; Z79.82 Long term (current) use of aspirin; Z86.14 Personal history of Methicillin resistant Staphylococcus aureus infection; Z86.73 Personal history of transient ischemic attack (TIA), and cerebral infarction without residual deficits; Z87.01 Personal history of pneumonia (recurrent); Z87.891 Personal history of nicotine dependence

== ENCOUNTER 2018-04-23 14:42 | Observation (INO) | payer MEDICARE, OTHER ==
[2018-04-23 14:43] VITALS: BMI 26.2
--- NOTE | 2018-04-23 16:08 | C.PDOC ---
History Of Present Illness HX LIMITED DUE TO POOR HISTORIAN 82-YEAR-OLD MALE, PRESENTS TO THE EMERGENCY DEPARTMENT WITH PRESCRIPTION FROM DR. LEIVA, WHO SENT HIM TO [facility] TO ADMIT FOR ELEVATED BLOOD SUGAR, BUT PT CAME TO ER. PT IS UNABLE TO PROVIDE ANY FURTHER H AT THIS TIME. Time Seen by Provider: 04/23/18 15:48 Chief Complaint (Nursing): High Blood Sugar History Per: Patient History/Exam Limitations: other (POOR HISTORIAN) Past Medical History Reviewed: Historical Data, Nursing Documentation, Vital Signs Vital Signs: Last Vital Signs Temp 97.4 F L 04/23/18 14:52 Pulse 63 04/23/18 14:52 Resp 20 04/23/18 14:52 BP 154/69 H 04/23/18 14:52 Pulse Ox 99 04/23/18 16:35 - Medical History PMH: Arthritis (BACK, BL KNEE L>R), CVA, Dementia, Diabetes, HTN, Hypercholesterolemia, Hyperlipidemia, Hypothyroidism, Pneumonia (KLEBSIELLA PNEUMONIAE), End Stage Renal Disease, Chronic Kidney Disease - [facility] (07/14/17) DILATION OF COMMON BILE DUCT WITH INTRALUMINAL DEVICE, ENDO (04/28/17) DRAINAGE OF BUTTOCK SKIN, EXTERNAL APPROACH (06/24/17) DRAINAGE OF R LOW LEG SUBCU/FASCIA, PERC APPROACH, DIAGN (02/05/17) EXCISION OF R LOW LEG SUBCU/FASCIA, OPEN APPROACH (02/05/17) EXCISION OF SMALL INTESTINE, ENDO, DIAGN (07/21/15) INSERTION OF ENDOTRACHEAL AIRWAY INTO TRACHEA, VIA OPENING (07/14/17) INSERTION OF INFUSION DEV INTO SUP VENA CAVA, PERC APPROACH (07/14/17) INSPECTION OF UPPER INTESTINAL TRACT, ENDO (04/28/17) OCCUPATIONAL THERAPY (03/15/14) OTHER SPEECH THERAPY (03/20/14) PERFORMANCE OF CARDIAC OUTPUT, SINGLE, MANUAL (07/14/17) PHYSICAL THERAPY NEC (11/23/13) RECREATIONAL THERAPY (11/23/13) RELEASE PERITONEUM, PERCUTANEOUS ENDOSCOPIC APPROACH (12/03/15) REMOVAL OF VAD FROM TRUNK SUBCU/FASCIA, OPEN APPROACH (09/14/17) REMOVE INTRALUM DEV FROM HEPATOBIL DUCT, PERC ENDO (07/14/17) RESECTION OF GALLBLADDER, PERCUTANEOUS ENDOSCOPIC APPROACH (12/03/15) RESPIRATORY VENTILATION, LESS THAN 24 CONSECUTIVE HOURS (07/14/17) ULTRASONOGRAPHY OF SUPERIOR VENA CAVA, GUIDANCE (07/14/17) Family History: States: No Known Family Hx - Social History Hx Tobacco Use: No Hx Alcohol Use: No Hx Substance Use: No - Immunization History Hx Tetanus Toxoid Vaccination: No Hx Influenza Vaccination: Yes (2014) Hx Pneumococcal Vaccination: No Review Of Systems Review Of Systems: ROS cannot be obtained secondary to pt's inabilty to answer questions. (POOR HISTORIAN) Physical Exam - Physical Exam Appears: Non-toxic, No Acute Distress Skin: Normal Color, Warm, Dry, No Rash Head: Atraumatic, Normacephalic Eye(s): bilateral: Normal Inspection Nose: Normal Oral Mucosa: Moist Lips: Normal Appearing Neck: Normal ROM Cardiovascular: Rhythm Regular, No Murmur Respiratory: Normal Breath Sounds, No Accessory Muscle Use Extremity: Normal ROM, No Deformity, No Swelling Neurological/Psych: Oriented x3, Normal Speech ED Course And Treatment - Laboratory Results Result Diagrams: 04/23/18 16:14 04/23/18 16:14 ECG: Interpreted By Me ECG Rhythm: Sinus Rhythm ECG Interpretation: Normal Rate From EC O2 Sat by Pulse Oximetry: 99 Pulse Ox Interpretation: Normal Progress - Re-Evaluation Re-evaluation Note: 04/23/18 16:06 D/W DR Virginia OTT [phone] 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 PT IS BASELINE CONFUSED, POOR HISTORIAN. [facility] PT WAS ADVISED TO GO TO [facility] AND WAS GIVEN PROGRESS NOTE. NO PROGRESS NOTE PRESENT W PT DURING THIS EVAL. 04/23/18 17:42 EXAM UNCH PRIOR D/W DR Bjorn ALEXANDRA C/F PMD, WILL ADMIT. STATES TO ADMIT DR MI - Data Reviewed Data Reviewed: Lab, Diagnostic imaging, EKG, Old records Disposition Counseled Patient/Family Regarding: Studies Performed, Diagnosis - Disposition Disposition: HOSPITALIZED Disposition Time: 17:42 Condition: STABLE Forms: [facility] (Palestinian) - POA Present On Arrival: Poor Glycemic Control - Clinical Impression Clinical Impression: Acute renal insufficiency - Scribe Statement Gil Rossi All medical record entries made by the Scribe were at my direction and personally dictated by me. I have reviewed the chart and agree that the record accurately reflects my personal performance of the history, physical exam, medical decision making, and the department course for this patient. I have also personally directed, reviewed, and agree with the discharge instructions and disposition. Decision To Admit - Pt Status Changed To: Hospital Disposition Of: Observation - . Bed Request Type: Regular Admitting Physician: Bjorn Mi Patient Diagnosis: Acute renal insufficiency
[2018-04-23 16:25] LABS: BASO % 0.4 % (0.0-2.0); EOS # 0.3 K/uL (0.0-0.7); EOS % 3.3 % (0.0-4.0); HEMOGLOBIN 12.1 g/dL (12.0-18.0); LYMPH # 3.7 K/uL (1.0-4.3); LYMPH % 37.3 % (20.0-40.0); MEAN CELL VOLUME 83.7 fL (80.0-94.0); MEAN CORPUSCULAR HEMOGLOBIN 28.9 pg (27.0-31.0); MEAN CORPUSCULAR HGB CONC 34.5 g/dL (33.0-37.0); MEAN PLATELET VOLUME 9.6 fL (7.2-11.7); MONO % 9.6 % (0.0-10.0); NEUT # 4.9 K/uL (1.8-7.0); NEUT % 49.4 % (50.0-75.0); NRBC % 0.6 % (0.0-2.0); RBC 4.21 Mil/uL (4.40-5.90); RED CELL DISTRIBUTION WIDTH 14.2 % (11.5-14.5); WHITE BLOOD COUNT 9.9 K/uL (4.8-10.8)
--- NOTE | 2018-04-23 16:32 | RAD ---
Date of service: 04/23/2018 PROCEDURE: CHEST RADIOGRAPH, 1 VIEW HISTORY: Diabetic COMPARISON: 07/14/2017. FINDINGS: LUNGS: The lungs are well inflated and clear. PLEURA: No pneumothorax or pleural fluid seen. CARDIOVASCULAR: Normal. OSSEOUS STRUCTURES: No significant abnormalities. VISUALIZED UPPER ABDOMEN: Normal. OTHER FINDINGS: None. IMPRESSION: No active pulmonary disease.
[2018-04-23 16:36] LABS: VENOUS BLOOD GAS BASE EXCESS -2.8 mmol/L (0.0-2.0); VENOUS BLOOD GAS PCO2 44 mmHg (40-60); VENOUS BLOOD GAS PO2 31 mm/Hg (30-55); VENOUS BLOOD PH 7.33 (7.32-7.43)
[2018-04-23 17:02] LABS: ALB/GLOB RATIO 1.5 (1.0-2.1); ALBUMIN 5.2 g/dL (3.5-5.0); CALCIUM 10.5 mg/dl (8.6-10.4)
[2018-04-23 17:33] LABS: URINE BACTERIA FEW (<OCC); URINE BILIRUBIN NEGATIVE (NEGATIVE); URINE BLOOD NEGATIVE (NEGATIVE); URINE CLARITY Hazy (Clear); URINE COLOR Yellow (YELLOW); URINE GLUCOSE (UA) 1+ mg/dL (Normal); URINE LEUKOCYTE ESTERASE 1+ Leu/uL (Negative); URINE PROTEIN 1+ mg/dL (NEGATIVE); URINE UROBILINOGEN NORMAL mg/dL (0.2-1.0)
[2018-04-23] MEDS: Sodium Chloride 0.9% 1,000 ML IV SCH (21:41)
--- NOTE | 2018-04-24 01:04 | CP.PCM.HP ---
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 Pt is unaware of why he is here and is unable to state his age, date, name of the hospital. Pt was brought in with and nice. and niece say pt has been umcomplient with medications and has been declining in memory for the past few years. Pt has no complaints other than a leg soreness. ROS Pos+ leg soreness Left side PMHx: HTN, DM, HLD, CVA 2013, dementia, CKD, cholelithiasis, choledocholithiasis PSHx: Cholecystectomy, ERCP with removal of stent and sphincterotomy 07/13/17, Cardiac cath in 2012, L carotid surgery, ERCP, right hand surgery, non-emergent aortic dissection in 2014. Allergies: NKDA Social: denies tobacco, EtOH, drugs. Lives with , walks with cane. 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 Family Hx: HTN PMD: [facility] proxy: Niece Lyndsey Youssef [phone] Full Code Present on Admission - Present on Admission Any Indicators Present on Admission: No Review of Systems - Constitutional Constitutional: absent: Chills, Fever, Headache, Night Sweats, Weight Gain, Weight Loss - EENT Eyes: absent: Change in Vision Ears: absent: Ear Pain Nose/Mouth/Throat: absent: Sore Throat - Cardiovascular Cardiovascular: absent: Chest Pain, Pain Radiating to Arm/Neck/Jaw, Leg Edema, Lightheadedness, Palpitations - Respiratory Respiratory: absent: Cough, Hemoptysis, Wheezing, Pain with Coughing - Gastrointestinal Gastrointestinal: absent: Abdominal Pain, Vomiting - Genitourinary Genitourinary: absent: Difficulty Urinating, Urinary Incontinence, Urinary Frequency - Musculoskeletal Musculoskeletal: Myalgias (L left) - Integumentary Integumentary: absent: Erythema, New Lesions, Skin Pain - Neurological Neurological: Memory Loss (as per family). absent: Focal Weakness, Loss of Vision, Paresthesias, Radicular Pain - Psychiatric Psychiatric: Memory Loss (as per family) - Endocrine Endocrine: absent: Flushing, Palpitations - Hematologic/Lymphatic Hematologic: absent: Easy Bruising Past Patient History - Infectious Disease Hx of Infectious Diseases: None - Tetanus Immunizations Tetanus Immunization: Unknown - Past Medical History & Family History Past Medical History?: Yes - Past Social History Smoking Status: Former Smoker - CARDIAC Hx Hypercholesterolemia: Yes Hx Hypertension: Yes - PULMONARY Hx Pneumonia: Yes (KLEBSIELLA PNEUMONIAE) - NEUROLOGICAL Hx Dementia: Yes - HEENT Hx HEENT Problems: Yes Hx Cataracts: Yes (SURGERY) - RENAL Hx Chronic Kidney Disease: Yes - ENDOCRINE/METABOLIC Hx Hypothyroidism: Yes - INTEGUMENTARY Hx Dermatological Problems: No - MUSCULOSKELETAL/RHEUMATOLOGICAL Hx Falls: No - GASTROINTESTINAL Hx Gastrointestinal Disorders: Yes (''STOMACH BACTERIA'') Hx Ulcer: Yes Other/Comment: CHOLEDOCHOLITHIASIS, CHOLANGITIS - GENITOURINARY/GYNECOLOGICAL Hx Genitourinary Disorders: No Hx Incontinence: Yes - PSYCHIATRIC Hx Substance Use: No - SURGICAL HISTORY Hx Surgeries: Yes Hx Cataract Extraction: Yes Other/Comment: LEFT BEHIND EAR SURGERY FROM BLOOD CLOTS ,RIGHT HAND SURGERY - ANESTHESIA Hx Anesthesia: Yes Hx Anesthesia Reactions: No Hx Malignant Hyperthermia: No Meds Allergies/Adverse Reactions: Allergies Allergy/AdvReac Type Severity Reaction Status Date / Time No Known Allergies Allergy Verified 04/23/18 14:54 Physical Exam - Constitutional Appears: Non-toxic, No Acute Distress, Confused - Head Exam Head Exam: ATRAUMATIC, NORMAL INSPECTION - Eye Exam Eye Exam: EOMI, Normal appearance. absent: Scleral icterus - ENT Exam ENT Exam: Mucous Membranes Dry - Neck Exam Neck exam: Negative for: Thyromegaly - Respiratory Exam Respiratory Exam: Clear to Auscultation Bilateral, NORMAL BREATHING PATTERN. absent: Rales, Wheezes - Cardiovascular Exam Cardiovascular Exam: RRR, +S1, +S2. absent: Diastolic murmur, Systolic Murmur - GI/Abdominal Exam GI & Abdominal Exam: Soft. absent: Guarding, Tenderness - Extremities Exam Extremities exam: Positive for: tenderness (L leg) - Back Exam Back exam: NORMAL INSPECTION - Neurological Exam Neurological exam: Altered - Psychiatric Exam Psychiatric exam: Flat Affect - Skin Skin Exam: Dry, Pallor Additional comments: poor turgur, doughy feeling muscles, skin loose Results - Vital Signs Recent Vital Signs: Last Vital Signs Temp 97.7 F 04/23/18 18:18 Pulse 60 04/23/18 18:18 Resp 18 04/23/18 18:18 BP 157/69 H 04/23/18 18:18 Pulse Ox 98 04/23/18 18:18 - Labs Result Diagrams: 04/23/18 16:14 04/23/18 16:14 Labs: Laboratory Results - last 24 hr 04/23/18 04/23/18 04/23/18 16:10 16:14 16:14 WBC 9.9 RBC 4.21 L Hgb 12.1 Hct 35.2 MCV 83.7 MCH 28.9 MCHC 34.5 RDW 14.2 Plt Count 232 MPV 9.6 Neut % (Auto) 49.4 L Lymph % (Auto) 37.3 [place] % (Auto) 9.6 Eos % (Auto) 3.3 Baso % (Auto) 0.4 Neut # (Auto) 4.9 Lymph # (Auto) 3.7 [place] # (Auto) 1.0 H Eos # (Auto) 0.3 Baso # (Auto) 0.0 pO2 VBG pH VBG pCO2 VBG HCO3 VBG Total CO2 VBG O2 Sat (Calc) VBG Base Excess VBG Potassium Glucose Lactate Sodium 141 Potassium 4.7 Chloride 103 Carbon Dioxide 21 L Anion Gap 22 H BUN 51 H Creatinine 2.4 H Est GFR ( Amer) 32 Est GFR (Non-Af Amer) 26 POC Glucose (mg/dL) 149 H Random Glucose 153 H Calcium 10.5 H Total Bilirubin 0.6 AST 28 ALT 34 Alkaline Phosphatase 69 Total Protein 8.7 H Albumin 5.2 H D Globulin 3.5 Albumin/Globulin Ratio 1.5 Venous Blood Potassium Urine Color Urine Clarity Urine pH Ur Specific [place] Urine Protein Urine Glucose (UA) Urine Ketones Urine Blood Urine Nitrate Urine Bilirubin Urine Urobilinogen Ur Leukocyte Esterase Urine WBC (Auto) Urine Bacteria B-Hydroxybutyrate 0.15 04/23/18 04/23/18 16:32 17:00 WBC RBC Hgb Hct MCV MCH MCHC RDW Plt Count MPV Neut % (Auto) Lymph % (Auto) [place] % (Auto) Eos % (Auto) Baso % (Auto) Neut # (Auto) Lymph # (Auto) [place] # (Auto) Eos # (Auto) Baso # (Auto) pO2 31 VBG pH 7.33 VBG pCO2 44 VBG HCO3 21.6 VBG Total CO2 24.6 VBG O2 Sat (Calc) 57.5 VBG Base Excess -2.8 L VBG Potassium 4.3 Glucose 148 H Lactate 1.5 Sodium 140.0 Potassium Chloride 106.0 Carbon Dioxide Anion Gap BUN Creatinine Est GFR ( Amer) Est GFR (Non-Af Amer) POC Glucose (mg/dL) Random Glucose Calcium Total Bilirubin AST ALT Alkaline Phosphatase Total Protein Albumin Globulin Albumin/Globulin Ratio Venous Blood Potassium 4.3 Urine Color Yellow Urine Clarity Hazy Urine pH 5.0 Ur Specific [place] 1.010 Urine Protein 1+ H Urine Glucose (UA) 1+ H Urine Ketones Negative Urine Blood Negative Urine Nitrate Negative Urine Bilirubin Negative Urine Urobilinogen Normal Ur Leukocyte Esterase 1+ H Urine WBC (Auto) 29 H Urine Bacteria Few H B-Hydroxybutyrate Assessment & Plan - Assessment and Plan (Free Text) Assessment: Dehydration: -IVF NS 100ml/hr -monitor BP -cbc, cmp, mg, phos DM type 2 -accuchecks -hypoglycemia protocol Hyperalbuminemia -likely due to dehydration -f/u cbc, cmp hypercalcemia: -10.5 corrected = 10.2 normal <Bjorn Mi P - Last Filed: 04/24/18 06:27> Results - Vital Signs Recent Vital Signs: Last Vital Signs Temp 98.1 F 04/24/18 00:00 Pulse 56 L 04/24/18 00:00 Resp 20 04/24/18 00:00 BP 126/74 04/24/18 00:00 Pulse Ox 98 04/24/18 00:00 - Labs Result Diagrams: 04/23/18 16:14 04/23/18 16:14 Labs: Laboratory Results - last 24 hr 04/23/18 04/23/18 04/23/18 16:10 16:14 16:14 WBC 9.9 RBC 4.21 L Hgb 12.1 Hct 35.2 MCV 83.7 MCH 28.9 MCHC 34.5 RDW 14.2 Plt Count 232 MPV 9.6 Neut % (Auto) 49.4 L Lymph % (Auto) 37.3 [place] % (Auto) 9.6 Eos % (Auto) 3.3 Baso % (Auto) 0.4 Neut # (Auto) 4.9 Lymph # (Auto) 3.7 [place] # (Auto) 1.0 H Eos # (Auto) 0.3 Baso # (Auto) 0.0 pO2 VBG pH VBG pCO2 VBG HCO3 VBG Total CO2 VBG O2 Sat (Calc) VBG Base Excess VBG Potassium Glucose Lactate Sodium 141 Potassium 4.7 Chloride 103 Carbon Dioxide 21 L Anion Gap 22 H BUN 51 H Creatinine 2.4 H Est GFR ( Amer) 32 Est GFR (Non-Af Amer) 26 POC Glucose (mg/dL) 149 H Random Glucose 153 H Calcium 10.5 H Total Bilirubin 0.6 AST 28 ALT 34 Alkaline Phosphatase 69 Total Protein 8.7 H Albumin 5.2 H D Globulin 3.5 Albumin/Globulin Ratio 1.5 Venous Blood Potassium Urine Color Urine Clarity Urine pH Ur Specific [place] Urine Protein Urine Glucose (UA) Urine Ketones Urine Blood Urine Nitrate Urine Bilirubin Urine Urobilinogen Ur Leukocyte Esterase Urine WBC (Auto) Urine Bacteria B-Hydroxybutyrate 0.15 04/23/18 04/23/18 16:32 17:00 WBC RBC Hgb Hct MCV MCH MCHC RDW Plt Count MPV Neut % (Auto) Lymph % (Auto) [place] % (Auto) Eos % (Auto) Baso % (Auto) Neut # (Auto) Lymph # (Auto) [place] # (Auto) Eos # (Auto) Baso # (Auto) pO2 31 VBG pH 7.33 VBG pCO2 44 VBG HCO3 21.6 VBG Total CO2 24.6 VBG O2 Sat (Calc) 57.5 VBG Base Excess -2.8 L VBG Potassium 4.3 Glucose 148 H Lactate 1.5 Sodium 140.0 Potassium Chloride 106.0 Carbon Dioxide Anion Gap BUN Creatinine Est GFR ( Amer) Est GFR (Non-Af Amer) POC Glucose (mg/dL) Random Glucose Calcium Total Bilirubin AST ALT Alkaline Phosphatase Total Protein Albumin Globulin Albumin/Globulin Ratio Venous Blood Potassium 4.3 Urine Color Yellow Urine Clarity Hazy Urine pH 5.0 Ur Specific [place] 1.010 Urine Protein 1+ H Urine Glucose (UA) 1+ H Urine Ketones Negative Urine Blood Negative Urine Nitrate Negative Urine Bilirubin Negative Urine Urobilinogen Normal Ur Leukocyte Esterase 1+ H Urine WBC (Auto) 29 H Urine Bacteria Few H B-Hydroxybutyrate Attending/Attestation - Attestation I have personally seen and examined this patient.: Yes I have fully participated in the care of the patient.: Yes I have reviewed all pertinent clinical information: Yes Notes (Text): Assessment Patient sent in by PMD for poor compliance, poor DM control, patient is poor historian with significant dementia without any meaning full information about his health, no complains, not in distress, clinically dehydrated, hemoconcentration, with some elevation of BUN and creatinine. PMH of DM, HTN, ESRD off HD now, h/o CAD, CVA, cholecystectomy, biliary intervention, living with . Plan IVF, F/u labs, hemoglobin a1c, accuchecks. PT/OT Social service eval Discuss with family about his behaviour, needs, compliance with meds, intake, also confirm meds with pharmacy. Gi/DVT prophylaxis.
[2018-04-24] MEDS ORDERED: Glucagon Recombinant 1 mg Inj IM PRN ×2 (01:14→12:37)
[2018-04-24] MEDS ORDERED: Dextrose 50% SYRINGE Inj (50 ml) IV PRN ×2 (01:14→12:37)
[2018-04-24] MEDS: Sodium Chloride 0.9% 1,000 ML IV SCH ×3 (08:00→19:55)
[2018-04-24 11:41] LABS: HEMOGLOBIN 10.5 g/dL (12.0-18.0); MEAN CELL VOLUME 83.8 fL (80.0-94.0); MEAN CORPUSCULAR HEMOGLOBIN 28.4 pg (27.0-31.0); MEAN CORPUSCULAR HGB CONC 33.9 g/dL (33.0-37.0); MEAN PLATELET VOLUME 9.8 fL (7.2-11.7); RBC 3.69 Mil/uL (4.40-5.90); RED CELL DISTRIBUTION WIDTH 14.2 % (11.5-14.5); WHITE BLOOD COUNT 6.1 K/uL (4.8-10.8)
[2018-04-24] MEDS: Ciprofloxacin 400mg/200ml D5W 400 MG/200 ML BAG IVPB SCH ×2 (11:48→22:00)
[2018-04-24 11:57] LABS: ALB/GLOB RATIO 1.8 (1.0-2.1); ALBUMIN 3.8 g/dL (3.5-5.0); CALCIUM 8.4 mg/dl (8.6-10.4)
[2018-04-24] MEDS: (Novolog) Insulin Aspart, Recombinant 100 u/ml 10 ml vial SC SCH ×3 (14:01→21:35)
--- NOTE | 2018-04-24 16:40 | CP.PCM.CON ---
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 on asking he says he is here for his diabetes denies any CP or SOB, no N/V or abdominal pain no urinary complaints some pain in legs, no cramps PMHx: HTN, DM, HLD, CVA 2013, dementia, CKD, gall stones PSHx: Cholecystectomy, ERCP with removal of stent and sphincterotomy 07/13/17, Cardiac cath in 2012, L carotid surgery, ERCP, right hand surgery, non-emergent aortic dissection in 2014. Social: denies tobacco, EtOH, drugs. Lives with , walks with cane. Family Hx: HTN Review of Systems - Review of Systems All systems: reviewed and no additional remarkable complaints except Review of Systems: as per HPI, other than that 10 point ROS negative Past Patient History - Infectious Disease Hx of Infectious Diseases: None - Tetanus Immunizations Tetanus Immunization: Unknown - Past Medical History & Family History Past Medical History?: Yes - Past Social History Smoking Status: Former Smoker - CARDIAC Hx Hypercholesterolemia: Yes Hx Hypertension: Yes - PULMONARY Hx Pneumonia: Yes (KLEBSIELLA PNEUMONIAE) - NEUROLOGICAL Hx Dementia: Yes - HEENT Hx HEENT Problems: Yes Hx Cataracts: Yes (SURGERY) - RENAL Hx Chronic Kidney Disease: Yes - ENDOCRINE/METABOLIC Hx Hypothyroidism: Yes - INTEGUMENTARY Hx Dermatological Problems: No - MUSCULOSKELETAL/RHEUMATOLOGICAL Hx Falls: No - GASTROINTESTINAL Hx Gastrointestinal Disorders: Yes (''STOMACH BACTERIA'') Hx Ulcer: Yes Other/Comment: CHOLEDOCHOLITHIASIS, CHOLANGITIS - GENITOURINARY/GYNECOLOGICAL Hx Genitourinary Disorders: No Hx Incontinence: Yes - PSYCHIATRIC Hx Substance Use: No - SURGICAL HISTORY Hx Surgeries: Yes Hx Cataract Extraction: Yes Other/Comment: LEFT BEHIND EAR SURGERY FROM BLOOD CLOTS ,RIGHT HAND SURGERY - ANESTHESIA Hx Anesthesia: Yes Hx Anesthesia Reactions: No Hx Malignant Hyperthermia: No Meds Allergies/Adverse Reactions: Allergies Allergy/AdvReac Type Severity Reaction Status Date / Time No Known Allergies Allergy Verified 04/23/18 14:54 - Medications Medications: Current Medications Dextrose (Dextrose 50% Inj) 0 ml IV STAT PRN; Protocol PRN Reason: Hypoglycemia Protocol Dextrose (Glutose 15) 0 gm PO ONCE PRN; Protocol PRN Reason: Hypoglycemia Protocol Dextrose (Dextrose 50% Inj) 0 ml IV STAT PRN; Protocol PRN Reason: Hypoglycemia Protocol Dextrose (Glutose 15) 0 gm PO ONCE PRN; Protocol PRN Reason: Hypoglycemia Protocol Glucagon (Glucagen Diagnostic Kit) 0 mg IM STAT PRN; Protocol PRN Reason: Hypoglycemia Protocol Glucagon (Glucagen Diagnostic Kit) 0 mg IM STAT PRN; Protocol PRN Reason: Hypoglycemia Protocol Heparin Sodium (Porcine) (Heparin) 5,000 units SC Q12 [facility] Last Admin: 04/24/18 11:47 Dose: 5,000 units Sodium Chloride (Sodium Chloride 0.9%) 1,000 mls @ 100 mls/hr IV .Q10H [facility] Last Admin: 04/24/18 08:00 Dose: 100 mls/hr Dextrose (Dextrose 5% In Water 1000 Ml) 1,000 mls @ 0 mls/hr IV .Q0M PRN; Protocol; Per Protocol PRN Reason: Hypoglycemia Protocol Ciprofloxacin (Cipro 400mg/200ml Dsw) 400 mg in 200 mls @ 133 mls/hr IVPB Q12H [facility] PRN Reason: Protocol Last Admin: 04/24/18 11:48 Dose: 133 mls/hr Dextrose (Dextrose 5% In Water 1000 Ml) 1,000 mls @ 0 mls/hr IV .Q0M PRN; Protocol; Per Protocol PRN Reason: Hypoglycemia Protocol Insulin Aspart (Novolog) 0 unit SC ACHS [facility] PRN Reason: Protocol Last Admin: 04/24/18 14:01 Dose: 8 units Pneumococcal Polyvalent Vaccine (Pneumovax 23 Vaccine) 0.5 ml IM .ONCE ONE Stop: 04/25/18 10:01 Physical Exam - Constitutional Appears: Well, Non-toxic - Head Exam Head Exam: ATRAUMATIC, NORMOCEPHALIC - Eye Exam Eye Exam: EOMI, Normal appearance, PERRL - ENT Exam ENT Exam: Mucous Membranes Dry - Neck Exam Neck exam: Negative for: Lymphadenopathy - Respiratory Exam Respiratory Exam: Clear to Auscultation Bilateral. absent: Rhonchi, Wheezes - Cardiovascular Exam Cardiovascular Exam: REGULAR RHYTHM. absent: +S1, +S2 - GI/Abdominal Exam GI & Abdominal Exam: Normal Bowel Sounds, Soft. absent: Tenderness - Extremities Exam Extremities exam: Positive for: full ROM. Negative for: joint swelling, pedal edema - Neurological Exam Neurological exam: Alert, Oriented x3 - Psychiatric Exam Psychiatric exam: Normal Affect, Normal Mood - Skin Skin Exam: Dry, Intact Results - Vital Signs Recent Vital Signs: Last Vital Signs Temp 98.3 F 04/24/18 15:00 Pulse 60 04/24/18 15:00 Resp 19 04/24/18 15:00 BP 106/57 L 04/24/18 15:00 Pulse Ox 95 04/24/18 15:00 - Labs Result Diagrams: 04/24/18 11:30 04/24/18 11:30 Labs: Laboratory Results - last 24 hr 04/23/18 04/23/18 04/24/18 16:14 17:00 11:30 WBC 6.1 RBC 3.69 L Hgb 10.5 L Hct 30.9 L MCV 83.8 MCH 28.4 MCHC 33.9 RDW 14.2 Plt Count 191 MPV 9.8 Sodium 141 Potassium 4.7 Chloride 103 Carbon Dioxide 21 L Anion Gap 22 H BUN 51 H Creatinine 2.4 H Est GFR ( Amer) 32 Est GFR (Non-Af Amer) 26 Random Glucose 153 H Calcium 10.5 H Phosphorus Magnesium Total Bilirubin 0.6 AST 28 ALT 34 Alkaline Phosphatase 69 Total Protein 8.7 H Albumin 5.2 H D Globulin 3.5 Albumin/Globulin Ratio 1.5 Urine Color Yellow Urine Clarity Hazy Urine pH 5.0 Ur Specific [place] 1.010 Urine Protein 1+ H Urine Glucose (UA) 1+ H Urine Ketones Negative Urine Blood Negative Urine Nitrate Negative Urine Bilirubin Negative Urine Urobilinogen Normal Ur Leukocyte Esterase 1+ H Urine WBC (Auto) 29 H Urine Bacteria Few H B-Hydroxybutyrate 0.15 04/24/18 11:30 WBC RBC Hgb Hct MCV MCH MCHC RDW Plt Count MPV Sodium 138 Potassium 4.7 Chloride 105 Carbon Dioxide 18 L Anion Gap 20 BUN 40 H Creatinine 1.8 H Est GFR ( Amer) 44 Est GFR (Non-Af Amer) 36 Random Glucose 327 H Calcium 8.4 L Phosphorus 3.5 Magnesium 1.8 Total Bilirubin 0.4 AST 23 ALT 33 Alkaline Phosphatase 54 Total Protein 5.9 L Albumin 3.8 Globulin 2.1 L Albumin/Globulin Ratio 1.8 Urine Color Urine Clarity Urine pH Ur Specific [place] Urine Protein Urine Glucose (UA) Urine Ketones Urine Blood Urine Nitrate Urine Bilirubin Urine Urobilinogen Ur Leukocyte Esterase Urine WBC (Auto) Urine Bacteria B-Hydroxybutyrate Assessment & Plan (1) AD (Alzheimer's disease) Status: Acute (2) JAY JAY (acute kidney injury) Status: Acute (3) CKD (chronic kidney disease) stage 3, GFR 30-59 ml/min Status: Acute (4) CVA, old, cognitive deficits Status: Acute (5) Dehydration Status: Acute (6) HLD (hyperlipidemia) Status: Acute (7) HTN (hypertension) Status: Acute (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
--- NOTE | 2018-04-24 19:40 | CP.PCM.PN ---
Subjective - Date & Time of Evaluation Date of Evaluation: 04/24/18 Time of Evaluation: 13:00 - Subjective Subjective: PGY-1 Medicine Progress Note for Dr. Posada's service Patient seen and examined at bedside. Patient is very poor historian. Most information was collected from prior admission. ROS limited secondary to patient cognitive status. Patient denies chest pain, sob, n/v. Objective - Vital Signs/Intake and Output Vital Signs (last 24 hours): Temp Pulse Resp BP Pulse Ox 98.3 F 60 19 106/57 L 95 04/24/18 15:00 04/24/18 15:00 04/24/18 15:00 04/24/18 15:00 04/24/18 15:00 Intake and Output: 04/24/18 04/25/18 18:59 06:59 Output Total 800 Balance -800 - Medications Medications: Current Medications Dextrose (Dextrose 50% Inj) 0 ml IV STAT PRN; Protocol PRN Reason: Hypoglycemia Protocol Dextrose (Glutose 15) 0 gm PO ONCE PRN; Protocol PRN Reason: Hypoglycemia Protocol Dextrose (Dextrose 50% Inj) 0 ml IV STAT PRN; Protocol PRN Reason: Hypoglycemia Protocol Dextrose (Glutose 15) 0 gm PO ONCE PRN; Protocol PRN Reason: Hypoglycemia Protocol Glucagon (Glucagen Diagnostic Kit) 0 mg IM STAT PRN; Protocol PRN Reason: Hypoglycemia Protocol Glucagon (Glucagen Diagnostic Kit) 0 mg IM STAT PRN; Protocol PRN Reason: Hypoglycemia Protocol Heparin Sodium (Porcine) (Heparin) 5,000 units SC Q12 [facility] Last Admin: 04/24/18 11:47 Dose: 5,000 units Dextrose (Dextrose 5% In Water 1000 Ml) 1,000 mls @ 0 mls/hr IV .Q0M PRN; Protocol; Per Protocol PRN Reason: Hypoglycemia Protocol Ciprofloxacin (Cipro 400mg/200ml Dsw) 400 mg in 200 mls @ 133 mls/hr IVPB Q12H [facility] PRN Reason: Protocol Last Admin: 04/24/18 11:48 Dose: 133 mls/hr Dextrose (Dextrose 5% In Water 1000 Ml) 1,000 mls @ 0 mls/hr IV .Q0M PRN; Protocol; Per Protocol PRN Reason: Hypoglycemia Protocol Sodium Chloride (Sodium Chloride 0.9%) 1,000 mls @ 60 mls/hr IV .[id number] [facility] Last Admin: 04/24/18 17:57 Dose: Not Given Insulin Aspart (Novolog) 0 unit SC ACHS [facility] PRN Reason: Protocol Last Admin: 04/24/18 14:01 Dose: 8 units Pneumococcal Polyvalent Vaccine (Pneumovax 23 Vaccine) 0.5 ml IM .ONCE ONE Stop: 04/25/18 10:01 - Labs Labs: 04/24/18 11:30 04/24/18 11:30 - Constitutional Appears: Non-toxic, No Acute Distress - Head Exam Head Exam: NORMAL INSPECTION, NORMOCEPHALIC - Eye Exam Eye Exam: EOMI, Normal appearance. absent: Nystagmus, Scleral icterus - ENT Exam ENT Exam: Mucous Membranes Dry - Respiratory Exam Respiratory Exam: Clear to Ausculation Bilateral, NORMAL BREATHING PATTERN. absent: Rhonchi, Wheezes, Respiratory Distress - Cardiovascular Exam Cardiovascular Exam: REGULAR RHYTHM, +S1, +S2 - GI/Abdominal Exam GI & Abdominal Exam: Soft, Normal Bowel Sounds. absent: Firm, Guarding, Tenderness - Extremities Exam Extremities Exam: Normal Inspection. absent: Pedal Edema - Neurological Exam Neurological Exam: Alert, Awake. 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 Pt is unaware of why he is here and is unable to state his age, date, name of the hospital. Pt was brought in with and niece; on labs found to have JAY JAY; treated with NS Plan: JAY JAY Nephro Consulted: Dr. Anish Kelley trending down; 1.8 (yesterday 2.4) NS @ 60/hr DM2 BS 327 ISS Accucheck Hypoglycemic protocol Hyperalbuminemia(resolved) Albumin 3.8 PPx Heparin 5000 units sc q12 GI ppx: not indicated at this time Medical management discussed with Dr. Posada
[2018-04-25 01:23] VITALS: RESP 20
[2018-04-25] MEDS: (Novolog) Insulin Aspart, Recombinant 100 u/ml 10 ml vial SC SCH ×2 (07:44→11:37)
[2018-04-25 08:53] LABS: BASO # 0.1 K/uL (0.0-0.2); EOS # 0.1 K/uL (0.0-0.7); EOS % 2.2 % (0.0-4.0); HEMOGLOBIN 11.8 g/dL (12.0-18.0); LYMPH # 1.6 K/uL (1.0-4.3); LYMPH % 25.1 % (20.0-40.0); MEAN CELL VOLUME 83.9 fL (80.0-94.0); MEAN CORPUSCULAR HGB CONC 34.5 g/dL (33.0-37.0); MEAN PLATELET VOLUME 9.4 fL (7.2-11.7); MONO # 0.4 K/uL (0.0-0.8); MONO % 6.5 % (0.0-10.0); NEUT # 4.1 K/uL (1.8-7.0); NEUT % 65.2 % (50.0-75.0); RBC 4.06 Mil/uL (4.40-5.90); RED CELL DISTRIBUTION WIDTH 14.2 % (11.5-14.5); WHITE BLOOD COUNT 6.4 K/uL (4.8-10.8)
[2018-04-25] MEDS: Sodium Chloride 0.9% 1,000 ML IV SCH (08:57)
[2018-04-25 09:16] LABS: ALB/GLOB RATIO 1.5 (1.0-2.1); ALBUMIN 4.5 g/dL (3.5-5.0); CALCIUM 9.6 mg/dl (8.6-10.4)
[2018-04-25] MEDS ORDERED: Pneumococcal 23-Valent Vaccine IM ONE (10:00)
[2018-04-25] MEDS: Ciprofloxacin 400mg/200ml D5W 400 MG/200 ML BAG IVPB SCH (10:43)
[2018-04-25 13:32] VITALS: BP 155/74; PULSE 76; TEMP 98.5; O2SAT 96
--- NOTE | 2018-04-25 17:29 | CP.PCM.DIS ---
Provider - Provider Date of Admission: 04/23/18 17:45 Attending physician: Bjorn Mi MD Time Spent in preparation of Discharge (in minutes): 45 Hospital Course - Lab Results Lab Results: Most Recent Lab Values WBC 6.4 K/uL (4.8-10.8) 04/25/18 08:42 RBC 4.06 Mil/uL (4.40-5.90) L 04/25/18 08:42 Hgb 11.8 g/dL (12.0-18.0) L 04/25/18 08:42 Hct 34.1 % (35.0-51.0) L 04/25/18 08:42 MCV 83.9 fL (80.0-94.0) 04/25/18 08:42 MCH 29.0 pg (27.0-31.0) 04/25/18 08:42 MCHC 34.5 g/dL (33.0-37.0) 04/25/18 08:42 RDW 14.2 % (11.5-14.5) 04/25/18 08:42 Plt Count 230 K/uL (130-400) 04/25/18 08:42 MPV 9.4 fL (7.2-11.7) 04/25/18 08:42 Neut % (Auto) 65.2 % (50.0-75.0) 04/25/18 08:42 Lymph % (Auto) 25.1 % (20.0-40.0) 04/25/18 08:42 [place] % (Auto) 6.5 % (0.0-10.0) 04/25/18 08:42 Eos % (Auto) 2.2 % (0.0-4.0) 04/25/18 08:42 Baso % (Auto) 1.0 % (0.0-2.0) 04/25/18 08:42 Neut # (Auto) 4.1 K/uL (1.8-7.0) 04/25/18 08:42 Lymph # (Auto) 1.6 K/uL (1.0-4.3) 04/25/18 08:42 [place] # (Auto) 0.4 K/uL (0.0-0.8) 04/25/18 08:42 Eos # (Auto) 0.1 K/uL (0.0-0.7) 04/25/18 08:42 Baso # (Auto) 0.1 K/uL (0.0-0.2) 04/25/18 08:42 pO2 31 mm/Hg (30-55) 04/23/18 16:32 VBG pH 7.33 (7.32-7.43) 04/23/18 16:32 VBG pCO2 44 mmHg (40-60) 04/23/18 16:32 VBG HCO3 21.6 mmol/L 04/23/18 16:32 VBG Total CO2 24.6 mmol/L (22-28) 04/23/18 16:32 VBG O2 Sat (Calc) 57.5 % (40-65) 04/23/18 16:32 VBG Base Excess -2.8 mmol/L (0.0-2.0) L 04/23/18 16:32 VBG Potassium 4.3 mmol/L (3.6-5.2) 04/23/18 16:32 Sodium 140.0 mmol/l (132-148) 04/23/18 16:32 Chloride 106.0 mmol/L (98-107) 04/23/18 16:32 Glucose 148 mg/dl (75-110) H 04/23/18 16:32 Lactate 1.5 mmol/L (0.7-2.1) 04/23/18 16:32 Sodium 139 mmol/L (132-148) 04/25/18 08:42 Potassium 4.5 mmol/L (3.6-5.2) 04/25/18 08:42 Chloride 105 mmol/L (98-107) 04/25/18 08:42 Carbon Dioxide 21 mmol/L (22-30) L 04/25/18 08:42 Anion Gap 18 (10-20) 04/25/18 08:42 BUN 30 mg/dL (9-20) H 04/25/18 08:42 Creatinine 1.8 mg/dL (0.8-1.5) H 04/25/18 08:42 Est GFR ( Amer) 44 04/25/18 08:42 Est GFR (Non-Af Amer) 36 04/25/18 08:42 POC Glucose (mg/dL) 149 mg/dL (65-110) H 04/23/18 16:10 Random Glucose 261 mg/dL (75-110) H 04/25/18 08:42 Calcium 9.6 mg/dl (8.6-10.4) 04/25/18 08:42 Phosphorus 2.8 mg/dL (2.5-4.5) 04/25/18 08:42 Magnesium 1.8 mg/dL (1.6-2.3) 04/25/18 08:42 Total Bilirubin 0.4 mg/dL (0.2-1.3) 04/25/18 08:42 AST 26 U/L (17-59) 04/25/18 08:42 ALT 31 U/L (21-72) 04/25/18 08:42 Alkaline Phosphatase 79 U/L (38-126) 04/25/18 08:42 Total Protein 7.5 g/dL (6.3-8.3) 04/25/18 08:42 Albumin 4.5 g/dL (3.5-5.0) 04/25/18 08:42 Globulin 3.0 gm/dL (2.2-3.9) 04/25/18 08:42 Albumin/Globulin Ratio 1.5 (1.0-2.1) 04/25/18 08:42 Venous Blood Potassium 4.3 mmol/L (3.6-5.2) 04/23/18 16:32 Urine Color Yellow (YELLOW) 04/23/18 17:00 Urine Clarity Hazy (Clear) 04/23/18 17:00 Urine pH 5.0 (5.0-8.0) 04/23/18 17:00 Ur Specific [place] 1.010 (1.003-1.030) 04/23/18 17:00 Urine Protein 1+ mg/dL (NEGATIVE) H 04/23/18 17:00 Urine Glucose (UA) 1+ mg/dL (Normal) H 04/23/18 17:00 Urine Ketones Negative mg/dL (NEGATIVE) 04/23/18 17:00 Urine Blood Negative (NEGATIVE) 04/23/18 17:00 Urine Nitrate Negative (NEGATIVE) 04/23/18 17:00 Urine Bilirubin Negative (NEGATIVE) 04/23/18 17:00 Urine Urobilinogen Normal mg/dL (0.2-1.0) 04/23/18 17:00 Ur Leukocyte Esterase 1+ David/uL (Negative) H 04/23/18 17:00 Urine WBC (Auto) 29 /hpf (0-5) H 04/23/18 17:00 Urine Bacteria Few (<OCC) H 04/23/18 17:00 B-Hydroxybutyrate 0.15 mM (0.02-0.27) 04/23/18 16:14 - Hospital Course Hospital Course: Upon Admission: 82 yo male with a PMH of DM2 presents to the ED 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 Pt is unaware of why he is here and is unable to state his age, date, name of the hospital. Pt was brought in with and nice. and niece say pt has been umcomplient with medications and has been declining in memory for the past few years. Pt has no complaints other than a leg soreness. Hospital Course: Patient is a 82 yo male who was brought to ED by his neice; has baseline dementia able to answer very few questions appropriately; was found to have acute kidney injury in labs was given IV fluids for treatment; Cr came down to 1.8; was discharged with alonzo Solorio to home Upon Admission: Patient is stable for discharge to home as per Dr. Posada. Patient is to followup with primary medical doctor within 1 week following discharge. Patient can resume all of his home medications as no medication adjustments were made to his medications during this admission. Patient should return to hospital if symptoms recur or worsen. Patient has baseline dementia so we will discharge once his niece Lyndsey arrives to hospital. Patient's niece is aware of the situation as well. Disclaimer: Written above is a synopsis of patients's current hospital admission. For full report refer to EMR Discharge Exam - Head Exam Head Exam: NORMAL INSPECTION, NORMOCEPHALIC Discharge Plan - Follow Up Plan Condition: STABLE Disposition: HOME/ ROUTINE Instructions: Acute Kidney Injury (DC), Rotavirus Infection (DC), Rotavirus Infection (GEN), Nutrition Tips for Relief of Diarrhea (DC), Nutrition Tips for Relief of Diarrhea (GEN) Additional Instructions: Patient is stable for discharge to home as per Dr. Posada. Patient is to followup with primary medical doctor within 1 week following discharge. Patient can resume all of his home medications as no medication adjustments were made to his medications during this admission. Patient should return to hospital if symptoms recur or worsen. Patient has baseline dementia so we will discharge once his niece Lyndsey arrives to hospital. Patient's niece is aware of the situation as well.
== END 2018-04-25 14:38 | disposition home or self-care (01) ==
LOC: C.ER 14:42 → C.9E 17:45 → C.3T 18:15
PROVIDERS: ADMIT Internal Medicine; ATTEND Internal Medicine
DX: E11.65 Type 2 diabetes mellitus with hyperglycemia (principal); E11.22 Type 2 diabetes mellitus with diabetic chronic kidney disease; E03.9 Hypothyroidism, unspecified; E78.00 Pure hypercholesterolemia, unspecified; E83.52 Hypercalcemia; E78.5 Hyperlipidemia, unspecified; F03.90 Unspecified dementia, unspecified severity, without behavioral disturbance, psychotic disturbance, mood disturbance, and anxiety; I12.0 Hypertensive chronic kidney disease with stage 5 chronic kidney disease or end stage renal disease; I25.10 Atherosclerotic heart disease of native coronary artery without angina pectoris; K80.30 Calculus of bile duct with cholangitis, unspecified, without obstruction; N17.9 Acute kidney failure, unspecified
CPT/HCPCS: 36415; 71045; 80053; 81001; 82009; 82803; 82948; 83735; 84100; 85025; 85027; 99284; G0378; J0744; J1644; J7030

== ENCOUNTER 2018-05-10 21:36 | Inpatient (IN) | payer MEDICARE, OTHER ==
[2018-05-10 21:36] VITALS: BMI 26.2
[2018-05-10 22:33] LABS: BASO # 0.1 K/uL (0.0-0.2); BASO % 0.7 % (0.0-2.0); EOS # 0.2 K/uL (0.0-0.7); EOS % 1.1 % (0.0-4.0); HEMOGLOBIN 11.9 g/dL (12.0-18.0); LYMPH # 1.5 K/uL (1.0-4.3); LYMPH % 10.1 % (20.0-40.0); MEAN CELL VOLUME 82.7 fL (80.0-94.0); MEAN CORPUSCULAR HEMOGLOBIN 28.8 pg (27.0-31.0); MEAN CORPUSCULAR HGB CONC 34.8 g/dL (33.0-37.0); MEAN PLATELET VOLUME 9.3 fL (7.2-11.7); MONO % 6.8 % (0.0-10.0); NEUT # 12.2 K/uL (1.8-7.0); NEUT % 81.3 % (50.0-75.0); NRBC % 0.2 % (0.0-2.0); RBC 4.15 Mil/uL (4.40-5.90); RED CELL DISTRIBUTION WIDTH 14.4 % (11.5-14.5)
--- NOTE | 2018-05-10 22:38 | C.PDOC ---
History Of Present Illness 82 y/o M BIBEMS p/w hypoglycemia. Patient was found to be confused, screaming, disoriented at home by family. EMS found patient to be hypoglycemic, administered medication, and patient returned to baseline. States he ate normally today and his DM medication is administered to him at [facility]. He currently denies any pain, dyspnea, nausea, or any other complaint. PMD [place] Time Seen by Provider: 05/10/18 21:46 Chief Complaint (Nursing): Altered Mental Status Past Medical History Vital Signs: Last Vital Signs Temp 97.6 F 05/10/18 21:50 Pulse 65 05/10/18 21:50 Resp 16 05/10/18 21:50 BP 150/67 05/10/18 21:50 Pulse Ox 98 05/10/18 22:59 - Medical History PMH: Arthritis (BACK, BL KNEE L>R), CVA, Dementia, Diabetes, HTN, Hypercholesterolemia, Hyperlipidemia, Hypothyroidism, Pneumonia (KLEBSIELLA PNEUMONIAE), End Stage Renal Disease, Chronic Kidney Disease Surgical History: Coronary Stent (5 years ago) - [facility] (07/14/17) DILATION OF COMMON BILE DUCT WITH INTRALUMINAL DEVICE, ENDO (04/28/17) DRAINAGE OF BUTTOCK SKIN, EXTERNAL APPROACH (06/24/17) DRAINAGE OF R LOW LEG SUBCU/FASCIA, PERC APPROACH, DIAGN (02/05/17) EXCISION OF R LOW LEG SUBCU/FASCIA, OPEN APPROACH (02/05/17) EXCISION OF SMALL INTESTINE, ENDO, DIAGN (07/21/15) INSERTION OF ENDOTRACHEAL AIRWAY INTO TRACHEA, VIA OPENING (07/14/17) INSERTION OF INFUSION DEV INTO SUP VENA CAVA, PERC APPROACH (07/14/17) INSPECTION OF UPPER INTESTINAL TRACT, ENDO (04/28/17) OCCUPATIONAL THERAPY (03/15/14) OTHER SPEECH THERAPY (03/20/14) PERFORMANCE OF CARDIAC OUTPUT, SINGLE, MANUAL (07/14/17) PHYSICAL THERAPY NEC (11/23/13) RECREATIONAL THERAPY (11/23/13) RELEASE PERITONEUM, PERCUTANEOUS ENDOSCOPIC APPROACH (12/03/15) REMOVAL OF VAD FROM TRUNK SUBCU/FASCIA, OPEN APPROACH (09/14/17) REMOVE INTRALUM DEV FROM HEPATOBIL DUCT, PERC ENDO (07/14/17) RESECTION OF GALLBLADDER, PERCUTANEOUS ENDOSCOPIC APPROACH (12/03/15) RESPIRATORY VENTILATION, LESS THAN 24 CONSECUTIVE HOURS (07/14/17) ULTRASONOGRAPHY OF SUPERIOR VENA CAVA, GUIDANCE (07/14/17) Family History: States: Unknown Family Hx - Social History Hx Tobacco Use: No Hx Alcohol Use: No Hx Substance Use: No - Immunization History Hx Tetanus Toxoid Vaccination: No Hx Influenza Vaccination: No Hx Pneumococcal Vaccination: No Review Of Systems Except As Marked, All Systems Reviewed And Found Negative. Constitutional: Negative for: Fever Cardiovascular: Negative for: Chest Pain Physical Exam - Physical Exam Appears: No Acute Distress Skin: Normal Color Head: Atraumatic, Normacephalic Oral Mucosa: Moist Neck: Supple Chest: No Tenderness Cardiovascular: Rhythm Regular Respiratory: Normal Breath Sounds Gastrointestinal/Abdominal: Soft, No Tenderness Extremity: No Tenderness, No Swelling Pulses: Left Radial: Normal, Right Radial: Normal Neurological/Psych: Other (Alert) ED Course And Treatment - Laboratory Results Result Diagrams: 05/10/18 22:28 05/10/18 22:28 O2 Sat by Pulse Oximetry: 98 Medical Decision Making Medical Decision Making: EKG NSR 70 bpm, no ST/T wave changes CXR no acute disease. Antibiotics initiated for UTI with luekocytosis. Dr Malin accepts patient to hospitalist service. Disposition - Disposition Disposition: HOSPITALIZED Disposition Time: 23:35 Condition: FAIR Forms: [facility] ([employer]) - Clinical Impression Clinical Impression: Hypoglycemia, UTI (urinary tract infection)
[2018-05-10 22:59] LABS: ALB/GLOB RATIO 1.7 (1.0-2.1)
[2018-05-10 23:21] LABS: SQUAMOUS EPITHIAL < 1 /hpf (0-5); URINE BACTERIA MANY (<OCC); URINE BILIRUBIN NEGATIVE (NEGATIVE); URINE BLOOD 1+ (NEGATIVE); URINE GLUCOSE (UA) NORMAL (Normal); URINE LEUKOCYTE ESTERASE 3+ Leu/uL (Negative); URINE PROTEIN 1+ mg/dL (NEGATIVE); URINE UROBILINOGEN NORMAL mg/dL (0.2-1.0)
[2018-05-10 23:23] LABS: URINE CLARITY Hazy (Clear); URINE COLOR YELLOW (YELLOW)
[2018-05-10] MEDS ORDERED: Cefepime IV 1 gm in Dextrose 1 GM/50 ML BAG IVPB STA (23:24)
[2018-05-11] MEDS ORDERED: Sodium Chloride 0.9% 1,000 ML ONE (00:06)
[2018-05-11] MEDS: Sodium Chloride 0.9% 1,000 ML IV SCH ×2 (00:07→18:24)
[2018-05-11] MEDS ORDERED: Dextrose 50% SYRINGE Inj (50 ml) IV PRN (00:07)
[2018-05-11] MEDS ORDERED: Glucagon Recombinant 1 mg Inj IM PRN (00:07)
--- NOTE | 2018-05-11 00:54 | CP.PCM.HP ---
<Rober Crane - Last Filed: 05/11/18 00:43> History of Present Illness - History of Present Illness History of Present Illness: PGY2 Medicine H+P for Dr. 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 complaints of agitation. As per patient's niece, pt awoke from his sleep in an agitated state and was yelling incoherently. EMS was called. Upon arrival, EMS found that the patient was hypoglycemic. EMS gave the patient 1 amp of D50 enroute. After administration of D50, patient returned to baseline. Patient does not remember the events that transpired prior to EMS being called. The patient's niece states he has been compliant with medications and has not missed any meals. He has been healthy prior to this event tonight. Patient does admit to increased urinary frequency but denies dysuria or foul smelling urine. Denies fevers, chills, nausea, vomiting, diarrhea, constipation , chest pain, shortness of breath, abdominal pain, headache, numbness, tingling , slurred speech or focal weakness. PMD: Dr Sullivan PMHx: HTN, DM, HLD, CVA 2013, dementia, CKD, cholelithiasis, choledocholithiasis , Anemia, Glaucoma, hx of afib, Cardiac arrest (07/20/17) and ARF PSHx: Cholecystectomy, ERCP with removal of stent and sphincterotomy 07/13/17, Cardiac cath in 2012, L carotid surgery, ERCP, right hand surgery, non-emergent aortic dissection in 2014. Family Hx: HTN Social: denies tobacco, EtOH, drugs. Lives with , walks with cane. 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. Goes to adult day care (has breakfast/lunch and meds at daycare) Allergies: NKDA Healthcare proxy: Niece Lyndsey Youssef [phone] Full Code Present on Admission - Present on Admission Any Indicators Present on Admission: No Review of Systems - Review of Systems All systems: reviewed and no additional remarkable complaints except - Constitutional Constitutional: As Per HPI. absent: Chills, Fever - EENT Eyes: As Per HPI. absent: Diplopia Nose/Mouth/Throat: As Per HPI. absent: Epistaxis, Nasal Congestion, Sore Throat - Cardiovascular Cardiovascular: As Per HPI. absent: Chest Pain, Leg Edema, Lightheadedness, Pedal Edema, Radiating Pain - Respiratory Respiratory: As Per HPI. absent: Cough, Wheezing - Gastrointestinal Gastrointestinal: As Per HPI. absent: Abdominal Pain, Constipation, Diarrhea, Nausea, Vomiting - Genitourinary Genitourinary: As Per HPI, Urinary Frequency (increased ). absent: Change in Urinary Stream, Difficulty Urinating, Dysuria, Flank Pain - Musculoskeletal Musculoskeletal: As Per HPI. absent: Tingling Additional comments: residual right sided weakness from previous CVA (baseline) - Neurological Neurological: As Per HPI. absent: Abnormal Movements, Abnormal Speech, Disequilibrium, Headaches, Syncope, Tremor, Vertigo, Weakness Additional comments: baseline right sided deficit from previous CVA - Psychiatric Psychiatric: As Per HPI - Endocrine Endocrine: As Per HPI - Hematologic/Lymphatic Hematologic: As Per HPI Past Patient History - Infectious Disease Hx of Infectious Diseases: None - Tetanus Immunizations Tetanus Immunization: Unknown - Past Medical History & Family History Past Medical History?: Yes - Past Social History Smoking Status: Former Smoker - CARDIAC Hx Hypercholesterolemia: Yes Hx Hypertension: Yes - PULMONARY Hx Pneumonia: Yes (KLEBSIELLA PNEUMONIAE) - NEUROLOGICAL Hx Dementia: Yes - HEENT Hx HEENT Problems: Yes Hx Cataracts: Yes (SURGERY) - RENAL Hx Chronic Kidney Disease: Yes - ENDOCRINE/METABOLIC Hx Hypothyroidism: Yes - INTEGUMENTARY Hx Dermatological Problems: No - MUSCULOSKELETAL/RHEUMATOLOGICAL Hx Arthritis: Yes (BACK, BL KNEE L>R) - GASTROINTESTINAL Hx Gastrointestinal Disorders: Yes (''STOMACH BACTERIA'') Hx Ulcer: Yes Other/Comment: CHOLEDOCHOLITHIASIS, CHOLANGITIS - GENITOURINARY/GYNECOLOGICAL Hx Genitourinary Disorders: No - PSYCHIATRIC Hx Substance Use: No - SURGICAL HISTORY Hx Coronary Stent: Yes (5 years ago) - ANESTHESIA Hx Anesthesia: Yes Hx Anesthesia Reactions: No Hx Malignant Hyperthermia: No Meds Allergies/Adverse Reactions: Allergies Allergy/AdvReac Type Severity Reaction Status Date / Time No Known Allergies Allergy Verified 04/23/18 14:54 Physical Exam - Constitutional Appears: Non-toxic, No Acute Distress, Chronically Ill - Head Exam Head Exam: ATRAUMATIC, NORMOCEPHALIC - Eye Exam Eye Exam: EOMI, Normal appearance, PERRL Pupil Exam: NORMAL ACCOMODATION, PERRL - ENT Exam ENT Exam: Mucous Membranes Moist - Neck Exam Neck exam: Negative for: Lymphadenopathy - Respiratory Exam Respiratory Exam: Clear to Auscultation Bilateral, NORMAL BREATHING PATTERN. absent: Accessory Muscle Use, Rales, Rhonchi, Wheezes, Respiratory Distress - Cardiovascular Exam Cardiovascular Exam: REGULAR RHYTHM, +S1, +S2 - GI/Abdominal Exam GI & Abdominal Exam: Normal Bowel Sounds, Soft. absent: Distended, Firm, Guarding, Rebound, Rigid, Tenderness - Extremities Exam Extremities exam: Positive for: normal inspection, pedal pulses present. Negative for: calf tenderness, pedal edema Additional comments: contracture deformity of the right hand (fingers 3,4,5) muscle strength 5/5 upper/lower extremities b/l Pain on right upper extremity with flexion and extension against resistance - Neurological Exam Neurological exam: Alert, CN II-XII Intact, Oriented x3 - Psychiatric Exam Psychiatric exam: Normal Affect, Normal Mood - Skin Skin Exam: Dry, Warm Results - Vital Signs Recent Vital Signs: Last Vital Signs Temp 97.6 F 05/10/18 21:50 Pulse 65 05/10/18 21:50 Resp 16 05/10/18 21:50 BP 150/67 05/10/18 21:50 Pulse Ox 98 05/10/18 23:36 - Labs Result Diagrams: 05/10/18 22:28 05/10/18 22:28 Labs: Laboratory Results - last 24 hr 05/10/18 05/10/18 05/10/18 21:41 22:28 22:28 WBC 15.0 H D RBC 4.15 L Hgb 11.9 L Hct 34.3 L MCV 82.7 MCH 28.8 MCHC 34.8 RDW 14.4 Plt Count 262 MPV 9.3 Neut % (Auto) 81.3 H Lymph % (Auto) 10.1 L [place] % (Auto) 6.8 Eos % (Auto) 1.1 Baso % (Auto) 0.7 Neut # (Auto) 12.2 H Lymph # (Auto) 1.5 Forest # (Auto) 1.0 H Eos # (Auto) 0.2 Baso # (Auto) 0.1 Sodium 139 Potassium 3.9 Chloride 103 Carbon Dioxide 20 L Anion Gap 20 BUN 54 H Creatinine 2.8 H Est GFR ( Amer) 26 Est GFR (Non-Af Amer) 22 POC Glucose (mg/dL) 82 Random Glucose 137 H Calcium 10.0 Total Bilirubin 0.5 AST 30 ALT 25 Alkaline Phosphatase 68 Total Protein 8.0 Albumin 5.0 Globulin 3.0 Albumin/Globulin Ratio 1.7 Urine Color Urine Clarity Urine pH Ur Specific [place] Urine Protein Urine Glucose (UA) Urine Ketones Urine Blood Urine Nitrate Urine Bilirubin Urine Urobilinogen Ur Leukocyte Esterase Urine WBC (Auto) Urine RBC (Auto) Ur Squamous Epith Cells Urine Bacteria Hyaline Casts 05/10/18 05/10/18 22:51 23:13 WBC RBC Hgb Hct MCV MCH MCHC RDW Plt Count MPV Neut % (Auto) Lymph % (Auto) [place] % (Auto) Eos % (Auto) Baso % (Auto) Neut # (Auto) Lymph # (Auto) [place] # (Auto) Eos # (Auto) Baso # (Auto) Sodium Potassium Chloride Carbon Dioxide Anion Gap BUN Creatinine Est GFR ( Amer) Est GFR (Non-Af Amer) POC Glucose (mg/dL) 207 H Random Glucose Calcium Total Bilirubin AST ALT Alkaline Phosphatase Total Protein Albumin Globulin Albumin/Globulin Ratio Urine Color Yellow Urine Clarity Hazy Urine pH 5.0 Ur Specific [place] 1.012 Urine Protein 1+ H Urine Glucose (UA) Normal Urine Ketones Negative Urine Blood 1+ H Urine Nitrate Negative Urine Bilirubin Negative Urine Urobilinogen Normal Ur Leukocyte Esterase 3+ H Urine WBC (Auto) 36 H Urine RBC (Auto) 2 Ur Squamous Epith Cells < 1 Urine Bacteria Many H Hyaline Casts 6-10 H Assessment & Plan - Assessment and Plan (Free Text) Plan: UTI UA (clean catch) 05/10: Leuk Zahra 3+, Blood 1+ Blood cultures: pending Urine culture: pending Medications * Rocephin 1gm IVPB daily (started on 05/11) * Given one dose of Cefepime 1gm IVPB while in ED Leukocytosis Likely secondary to stress from hypoglycemic episode afebrile See plan for UTI Hypoglycemia Episode (resolved) most likely cause of altered mental stated --> patient returned to baseline shortly after treatment with D50. No indication for further imaging or work up at this time. See plan for DM requiring insulin Acute on Chronic Renal Failure Could be 2/2 to Valsartan-HCTZ --> will hold home medication See plan for Hx of Renal Failure Hx of Afib Medications * Metoprolol Succinate 100 mg PO daily * Aspirin 81 mg PO daily Hx of Acute Renal Failure Nephrology consulted, Dr. Oconnell Could be 2/2 Valsartan/HCTZ- Hold previously treated with HD (resolved and permacath removed) Worsened BUN/Cr and GFR * 04/25/18 - BUN/Cr: 30/1.8, GFR: 44 * 05/10/18- BUN/Cr: 54/2.8, GFR: 26 Medications: * NS @70mL/hr * hold daily KCl Hx CVA Chronic (Right Sided Deficit) Medications * Aspirin 81 mg PO daily * Plavix 75 mg PO daily * Crestor 10 mg PO HS Hx of Dementia (Alzheimers) Medications * Aricept 10 mg DARNELL daily Hx of Anemia of Chronic Disease 2/2 CKD 09/21/17 - Hb/Hct: 10.6/31.2 05/10/18- Hb/Hct: 11.9/34.3 - stable Hx of Gluteal Abscess S/P I&D Jun 2017 and Tx'd w/ Bactrim Hx of HLD Lipid Panel pending Medications * Lopid 600 mg PO BID * Lipitor to Crestor 10 mg PO HS Hx HTN Medications * Metoprolol Succinate 10 mg PO daily - 10 am * Norvasc 10 mg PO daily - 10 pm Hx DM requiring Insulin Hgb A1C pending TSH pending T4 pending Hypoglycemic protocol Medications * Lantus 10 units SQ HS * Regular low dose insulin sliding scale Hx of Hypothyroidism F/u TSH, T4 Medications * Levothyroxine 50 mg PO/day Hx of Overactive Bladder PSA elevated 23.3 - Sep 2017 * did patient ever F/U urology as outpatient? PSA Medications * Toviaz 8 mg PO/day (please have family bring home medication in) Hx of Glaucoma Medications * Travatan changed to Xalatan 1 drop b/l eyes Hx of GERD Hx of thrombocytopenia, now normalized Medications * Pepcid 20mg/day Prophylaxis Turn Pt Q2H PT eval & tx B/l SCDs DVT - Heparin 5,000 units SC QSH GI - Pepcid 20mg PO daily Case discussed with Dr. Jonnathan Crane PGY2 <Malin,Jonnathan J - Last Filed: 05/11/18 02:09> Results - Vital Signs Recent Vital Signs: Last Vital Signs Temp 97.9 F 05/11/18 01:08 Pulse 60 05/11/18 01:08 Resp 18 05/11/18 01:26 BP 165/81 H 05/11/18 01:08 Pulse Ox 100 05/11/18 01:08 - Labs Result Diagrams: 05/10/18 22:28 05/10/18 22:28 Labs: Laboratory Results - last 24 hr 05/10/18 05/10/18 05/10/18 21:41 22:28 22:28 WBC 15.0 H D RBC 4.15 L Hgb 11.9 L Hct 34.3 L MCV 82.7 MCH 28.8 MCHC 34.8 RDW 14.4 Plt Count 262 MPV 9.3 Neut % (Auto) 81.3 H Lymph % (Auto) 10.1 L [place] % (Auto) 6.8 Eos % (Auto) 1.1 Baso % (Auto) 0.7 Neut # (Auto) 12.2 H Lymph # (Auto) 1.5 [place] # (Auto) 1.0 H Eos # (Auto) 0.2 Baso # (Auto) 0.1 Sodium 139 Potassium 3.9 Chloride 103 Carbon Dioxide 20 L Anion Gap 20 BUN 54 H Creatinine 2.8 H Est GFR ( Amer) 26 Est GFR (Non-Af Amer) 22 POC Glucose (mg/dL) 82 Random Glucose 137 H Calcium 10.0 Total Bilirubin 0.5 AST 30 ALT 25 Alkaline Phosphatase 68 Total Protein 8.0 Albumin 5.0 Globulin 3.0 Albumin/Globulin Ratio 1.7 Urine Color Urine Clarity Urine pH Ur Specific [place] Urine Protein Urine Glucose (UA) Urine Ketones Urine Blood Urine Nitrate Urine Bilirubin Urine Urobilinogen Ur Leukocyte Esterase Urine WBC (Auto) Urine RBC (Auto) Ur Squamous Epith Cells Urine Bacteria Hyaline Casts 05/10/18 05/10/18 22:51 23:13 WBC RBC Hgb Hct MCV MCH MCHC RDW Plt Count MPV Neut % (Auto) Lymph % (Auto) [place] % (Auto) Eos % (Auto) Baso % (Auto) Neut # (Auto) Lymph # (Auto) [place] # (Auto) Eos # (Auto) Baso # (Auto) Sodium Potassium Chloride Carbon Dioxide Anion Gap BUN Creatinine Est GFR ( Amer) Est GFR (Non-Af Amer) POC Glucose (mg/dL) 207 H Random Glucose Calcium Total Bilirubin AST ALT Alkaline Phosphatase Total Protein Albumin Globulin Albumin/Globulin Ratio Urine Color Yellow Urine Clarity Hazy Urine pH 5.0 Ur Specific [place] 1.012 Urine Protein 1+ H Urine Glucose (UA) Normal Urine Ketones Negative Urine Blood 1+ H Urine Nitrate Negative Urine Bilirubin Negative Urine Urobilinogen Normal Ur Leukocyte Esterase 3+ H Urine WBC (Auto) 36 H Urine RBC (Auto) 2 Ur Squamous Epith Cells < 1 Urine Bacteria Many H Hyaline Casts 6-10 H Attending/Attestation - Attestation I have personally seen and examined this patient.: Yes I have fully participated in the care of the patient.: Yes I have reviewed all pertinent clinical information: Yes Notes (Text): 05/11/18 02:07 Patient was seen and examined in the ER Bed [address] Guzman. History, physical, assessment and plan, and all orders were gone over with Dr. Guzman. Plan for care was gone over with alonzo Solorio who was at bedside. Jonnathan Malin D.O.
[2018-05-11] MEDS: Levothyroxine 50 MCG TAB PO SCH (07:21)
[2018-05-11 07:54] VITALS: RESP 20
--- NOTE | 2018-05-11 08:15 | RAD ---
Date of service: 05/10/2018 HISTORY: hypoglycemia COMPARISON: 04/23/2018 FINDINGS: LUNGS: No active pulmonary disease. PLEURA: No significant pleural effusion identified, no pneumothorax apparent. CARDIOVASCULAR: Normal. OSSEOUS STRUCTURES: No significant abnormalities. VISUALIZED UPPER ABDOMEN: Normal. OTHER FINDINGS: Right peritracheal fullness without deviation compatible with prominent brachiocephalic vessel similar-appearing IMPRESSION: No active disease.
[2018-05-11 08:33] LABS: BASO # 0.1 K/uL (0.0-0.2); BASO % 0.7 % (0.0-2.0); EOS # 0.3 K/uL (0.0-0.7); EOS % 2.9 % (0.0-4.0); HEMOGLOBIN 11.3 g/dL (12.0-18.0); LYMPH # 2.7 K/uL (1.0-4.3); LYMPH % 27.1 % (20.0-40.0); MEAN CELL VOLUME 82.5 fL (80.0-94.0); MEAN CORPUSCULAR HEMOGLOBIN 29.6 pg (27.0-31.0); MEAN CORPUSCULAR HGB CONC 35.9 g/dL (33.0-37.0); MEAN PLATELET VOLUME 9.4 fL (7.2-11.7); MONO # 0.7 K/uL (0.0-0.8); MONO % 7.1 % (0.0-10.0); NEUT # 6.3 K/uL (1.8-7.0); NEUT % 62.2 % (50.0-75.0); RBC 3.82 Mil/uL (4.40-5.90); RED CELL DISTRIBUTION WIDTH 14.1 % (11.5-14.5); WHITE BLOOD COUNT 10.1 K/uL (4.8-10.8)
[2018-05-11] MEDS: (Novolin R) Insulin Human Regular 100 units/ml vial SC SCH ×4 (08:45→21:40)
[2018-05-11 08:47] LABS: CALCIUM 9.3 mg/dl (8.6-10.4)
--- NOTE | 2018-05-11 08:54 | CP.PCM.PN ---
Subjective - Date & Time of Evaluation Date of Evaluation: 05/11/18 Time of Evaluation: 08:55 - Subjective Subjective: Medicine Progress Note for Dr. Rosalva Ahn, PGY-1 Patient seen and examined at bedside this AM. No acute events reported overnight. Responds to questions appropriately but mildly demented. Patient does not recall AMS episode prior to arriving in ED, does not recall who brought him to the hospital. He states that all meds are given to him at his adult daycare center, including diabetes meds. He states he does not know if he checks his sugars regularly at home or at the daycare center. He complains of increased urinary frequency but is unable to specify for how long. No other acute complaints. Denies any headaches, dizziness, confusion, chest pain, abdominal pain, SOB, n/v/d, constipation, dysuria. Objective - Vital Signs/Intake and Output Vital Signs (last 24 hours): Temp Pulse Resp BP Pulse Ox 98.0 F 66 20 134/69 99 05/11/18 07:00 05/11/18 07:00 05/11/18 07:00 05/11/18 07:00 05/11/18 07:00 - Medications Medications: Current Medications Amlodipine Besylate (Norvasc) 10 mg PO Q24H [facility] Ascorbic Acid (Vitamin C 250 Mg Tab) 250 mg PO DAILY [facility] Aspirin (Aspirin Chewable) 81 mg PO DAILY [facility] Clopidogrel Bisulfate (Plavix) 75 mg PO DAILY [facility] Dextrose (Dextrose 50% Inj) 0 ml IV STAT PRN; Protocol PRN Reason: Hypoglycemia Protocol Dextrose (Glutose 15) 0 gm PO ONCE PRN; Protocol PRN Reason: Hypoglycemia Protocol Donepezil HCl (Aricept) 10 mg PO HS [facility] Famotidine (Pepcid) 20 mg PO DAILY [facility] Gemfibrozil (Lopid) 600 mg PO BID [facility] Glucagon (Glucagen Diagnostic Kit) 0 mg IM STAT PRN; Protocol PRN Reason: Hypoglycemia Protocol Heparin Sodium (Porcine) (Heparin) 5,000 units SC Q8 [facility] Last Admin: 05/11/18 06:21 Dose: 5,000 units Home Med (Fesoterodine Fumarate [Toviaz]) 8 mg PO DAILY [facility] Ceftriaxone Sodium 1 gm/ (Sodium Chloride) 100 mls @ 100 mls/hr IVPB DAILY [facility] PRN Reason: Protocol Sodium Chloride (Sodium Chloride 0.9%) 1,000 mls @ 70 mls/hr IV .[id number] [facility] Last Admin: 05/11/18 00:07 Dose: 70 mls/hr Dextrose (Dextrose 5% In Water 1000 Ml) 1,000 mls @ 0 mls/hr IV .Q0M PRN; Protocol; Per Protocol PRN Reason: Hypoglycemia Protocol Insulin Glargine (Lantus) 10 unit SC HS [facility] Insulin Human Regular (Novolin R) 0 unit SC ACHS [facility] PRN Reason: Protocol Lactobacillus Acidophilus (Bacid Acidophilus) 1 cap PO BID [facility] Latanoprost (Xalatan Opht) 0 ml OU HS [facility] Levothyroxine Sodium (Synthroid) 50 mcg PO DAILY@0630 [facility] Last Admin: 05/11/18 07:21 Dose: 50 mcg Metoprolol Succinate (Toprol Xl) 100 mg PO DAILY [facility] Rosuvastatin Calcium (Crestor) 10 mg PO HS [facility] - Labs Labs: 05/11/18 08:16 05/11/18 08:16 - Constitutional Appears: Non-toxic, No Acute Distress, Confused - Head Exam Head Exam: ATRAUMATIC, NORMAL INSPECTION, NORMOCEPHALIC - Eye Exam Eye Exam: EOMI, Normal appearance, PERRL - ENT Exam ENT Exam: Mucous Membranes Moist, Normal Exam - Neck Exam Neck Exam: Full ROM, Normal Inspection - Respiratory Exam Respiratory Exam: Clear to Ausculation Bilateral, NORMAL BREATHING PATTERN. absent: Rales, Rhonchi, Wheezes - Cardiovascular Exam Cardiovascular Exam: RRR, +S1, +S2. absent: Gallop, Rubs, Murmur - GI/Abdominal Exam GI & Abdominal Exam: Distended, Soft. absent: Firm, Guarding, Tenderness - Extremities Exam Extremities Exam: Normal Inspection. absent: Pedal Edema, Tenderness - Back Exam Back Exam: NORMAL INSPECTION. 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 Plan: 1. UTI -UA (05/10): Leuk Zahra 3+, Blood 1+, Bacteria many -f/u BCx -f/u UCx -Medications -Rocephin 1gm IVPB daily (started on 05/11) 2. Leukocytosis -afebrile -likely secondary to stress from hypoglycemic episode 3. Hypoglycemia Episode (resolved) -likely cause of AMS -tx with 1 amp D50 en route to hospital, returned to baseline No indication for further imaging or work up at this time. -See plan for DM requiring insulin 4. Acute on Chronic Renal Failure Could be 2/2 to Valsartan-HCTZ --> will hold home medication See plan for Hx of Renal Failure 5. Hx of Afib -Medications * Metoprolol Succinate 100 mg PO daily * Aspirin 81 mg PO daily 6. Hx of Acute Renal Failure -Nephrology recs appreciated (Dr. Oconnell) -avoid nephrotoxic agents -HCTZ/Valsartan held -previously treated with HD (resolved and permacath removed) -Worsened BUN/Cr and GFR * 04/25/18 - BUN/Cr: 30/1.8, GFR: 44 * 05/10/18- BUN/Cr: 54/2.8, GFR: 26 -Medications: * NS @70mL/hr * hold daily KCl 7. Hx CVA Chronic (Right Sided Deficit) -Medications * Aspirin 81 mg PO daily * Plavix 75 mg PO daily * Crestor 10 mg PO HS 8. Hx of Dementia (Alzheimers) -Medications * Aricept 10 mg DARNELL daily 9. Hx of Anemia of Chronic Disease -2/2 CKD 09/21/17 - Hb/Hct: 10.6/31.2 05/10/18- Hb/Hct: 11.9/34.3 - stable 10. Hx of Gluteal Abscess S/P I&D Jun 2017 and Tx'd w/ Bactrim 11. Hx of HLD -Lipid Panel pending -Medications * Lopid 600 mg PO BID * Lipitor to Crestor 10 mg PO HS 12. Hx HTN Medications * Metoprolol Succinate 10 mg PO daily - 10 am * Norvasc 10 mg PO daily - 10 pm 13. Hx DM requiring Insulin - f/u HbA1C - f/u TSH - f/u T4 -Hypoglycemic protocol -Medications * Lantus 10 units SQ HS * Regular low dose insulin sliding scale 14. Hx of Hypothyroidism F/u TSH, T4 Medications * Levothyroxine 50 mg PO/day 15. Hx of Overactive Bladder -PSA elevated 23.3 - Sep 2017 * Per patient and PMD, has never followed a urologist -Medications * Toviaz 8 mg PO/day (please have family bring home medication in) 16. Hx of Glaucoma -Medications * Travatan changed to Xalatan 1 drop b/l eyes * PMD ok with keeping on xalatan 17. Hx of GERD -Hx of thrombocytopenia, now normalized -Medications * Pepcid 20mg/day 18. Prophylaxis -Turn Pt Q2H -PT eval & tx -ask family about meal times and when insulin is given -B/l SCDs -DVT - Heparin 5,000 units SC QSH -GI - Pepcid 20mg PO daily Case discussed with Dr. Rosalva Ahn, PGY-1
[2018-05-11] MEDS: Lactobacillus Acidophilus 500 MU Cap PO SCH ×2 (09:16→17:27)
[2018-05-11] MEDS: Metoprolol Succinate 100 mg XL Tab PO SCH (09:17)
--- NOTE | 2018-05-11 09:31 | CP.PCM.CON ---
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 complaints of agitation. As per patient's niece, pt awoke from his sleep in an agitated state and was yelling incoherently. EMS was called. Upon arrival, EMS found that the patient was hypoglycemic. EMS gave the patient 1 amp of D50 enroute. After administration of D50, patient returned to baseline. Patient does not remember the events that transpired prior to EMS being called. The patient's niece states he has been compliant with medications and has not missed any meals. He has been healthy prior to this event tonight. Patient does admit to increased urinary frequency but denies dysuria or foul smelling urine. Denies fevers, chills, nausea, vomiting, diarrhea, constipation , chest pain, shortness of breath, abdominal pain, headache, numbness, tingling , slurred speech or focal weakness. Previously admitted few weeks ago. Creatinine 1.8 mg/dl at baseline. On admission elevated to 2.4 mg/dl. PMHx: HTN, DM, HLD, CVA 2013, dementia, CKD, cholelithiasis, choledocholithiasis , Anemia, Glaucoma, hx of afib, Cardiac arrest (07/20/17) and ARF PSHx: Cholecystectomy, ERCP with removal of stent and sphincterotomy 07/13/17, Cardiac cath in 2012, L carotid surgery, ERCP, right hand surgery, non-emergent aortic dissection in 2014. Family Hx: HTN Social: denies tobacco, EtOH, drugs. Lives with , walks with cane. 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. Goes to adult day care (has breakfast/lunch and meds at daycare) Allergies: NKDA Review of Systems - Review of Systems All systems: reviewed and no additional remarkable complaints except (as per HPI ) Past Patient History - Infectious Disease Hx of Infectious Diseases: None - Tetanus Immunizations Tetanus Immunization: Unknown - Past Medical History & Family History Past Medical History?: Yes - Past Social History Smoking Status: Former Smoker - CARDIAC Hx Hypercholesterolemia: Yes Hx Hypertension: Yes - PULMONARY Hx Pneumonia: Yes (KLEBSIELLA PNEUMONIAE) - NEUROLOGICAL Hx Dementia: Yes - HEENT Hx HEENT Problems: Yes Hx Cataracts: Yes (SURGERY) - RENAL Hx Chronic Kidney Disease: Yes - ENDOCRINE/METABOLIC Hx Hypothyroidism: Yes - INTEGUMENTARY Hx Dermatological Problems: No - MUSCULOSKELETAL/RHEUMATOLOGICAL Hx Arthritis: Yes (BACK, BL KNEE L>R) - GASTROINTESTINAL Hx Gastrointestinal Disorders: Yes (''STOMACH BACTERIA'') Hx Ulcer: Yes Other/Comment: CHOLEDOCHOLITHIASIS, CHOLANGITIS - GENITOURINARY/GYNECOLOGICAL Hx Genitourinary Disorders: No - PSYCHIATRIC Hx Substance Use: No - SURGICAL HISTORY Hx Coronary Stent: Yes (5 years ago) - ANESTHESIA Hx Anesthesia: Yes Hx Anesthesia Reactions: No Hx Malignant Hyperthermia: No Meds Allergies/Adverse Reactions: Allergies Allergy/AdvReac Type Severity Reaction Status Date / Time No Known Allergies Allergy Verified 04/23/18 14:54 - Medications Medications: Current Medications Amlodipine Besylate (Norvasc) 10 mg PO Q24H [facility] Ascorbic Acid (Vitamin C 250 Mg Tab) 250 mg PO DAILY [facility] Last Admin: 05/11/18 09:17 Dose: 250 mg Aspirin (Aspirin Chewable) 81 mg PO DAILY [facility] Last Admin: 05/11/18 09:17 Dose: 81 mg Clopidogrel Bisulfate (Plavix) 75 mg PO DAILY [facility] Last Admin: 05/11/18 09:17 Dose: 75 mg Dextrose (Dextrose 50% Inj) 0 ml IV STAT PRN; Protocol PRN Reason: Hypoglycemia Protocol Dextrose (Glutose 15) 0 gm PO ONCE PRN; Protocol PRN Reason: Hypoglycemia Protocol Donepezil HCl (Aricept) 10 mg PO HS [facility] Famotidine (Pepcid) 20 mg PO DAILY [facility] Last Admin: 05/11/18 09:17 Dose: 20 mg Gemfibrozil (Lopid) 600 mg PO BID [facility] Last Admin: 05/11/18 09:17 Dose: 600 mg Glucagon (Glucagen Diagnostic Kit) 0 mg IM STAT PRN; Protocol PRN Reason: Hypoglycemia Protocol Heparin Sodium (Porcine) (Heparin) 5,000 units SC Q8 [facility] Last Admin: 05/11/18 06:21 Dose: 5,000 units Home Med (Fesoterodine Fumarate [Toviaz]) 8 mg PO DAILY [facility] Ceftriaxone Sodium 1 gm/ (Sodium Chloride) 100 mls @ 100 mls/hr IVPB DAILY [facility] PRN Reason: Protocol Last Admin: 05/11/18 09:15 Dose: 100 mls/hr Sodium Chloride (Sodium Chloride 0.9%) 1,000 mls @ 70 mls/hr IV .[id number] [facility] Last Admin: 05/11/18 00:07 Dose: 70 mls/hr Dextrose (Dextrose 5% In Water 1000 Ml) 1,000 mls @ 0 mls/hr IV .Q0M PRN; Protocol; Per Protocol PRN Reason: Hypoglycemia Protocol Insulin Glargine (Lantus) 10 unit SC HS [facility] Insulin Human Regular (Novolin R) 0 unit SC ACHS [facility] PRN Reason: Protocol Last Admin: 05/11/18 08:45 Dose: 2 units Lactobacillus Acidophilus (Bacid Acidophilus) 1 cap PO BID [facility] Last Admin: 05/11/18 09:16 Dose: 1 cap Latanoprost (Xalatan Opht) 0 ml OU HS [facility] Levothyroxine Sodium (Synthroid) 50 mcg PO DAILY@0630 [facility] Last Admin: 05/11/18 07:21 Dose: 50 mcg Metoprolol Succinate (Toprol Xl) 100 mg PO DAILY [facility] Last Admin: 05/11/18 09:17 Dose: 100 mg Rosuvastatin Calcium (Crestor) 10 mg PO [facility] Physical Exam - Constitutional Appears: Non-toxic, No Acute Distress, Chronically Ill - Head Exam Head Exam: NORMAL INSPECTION, NORMOCEPHALIC - Eye Exam Eye Exam: Normal appearance, PERRL - ENT Exam ENT Exam: Mucous Membranes Moist, Normal Exam - Neck Exam Neck exam: Positive for: Normal Inspection - Respiratory Exam Respiratory Exam: Clear to Auscultation Bilateral, NORMAL BREATHING PATTERN - Cardiovascular Exam Cardiovascular Exam: REGULAR RHYTHM, RRR - GI/Abdominal Exam GI & Abdominal Exam: Distended, Normal Bowel Sounds, Soft - Neurological Exam Neurological exam: Alert, Oriented x3 - Skin Skin Exam: Normal Color, Warm Results - Vital Signs Recent Vital Signs: Last Vital Signs Temp 98.0 F 05/11/18 07:00 Pulse 66 05/11/18 07:00 Resp 20 05/11/18 07:00 BP 134/69 05/11/18 07:00 Pulse Ox 99 05/11/18 07:00 - Labs Result Diagrams: 05/11/18 08:16 05/11/18 08:16 Labs: Laboratory Results - last 24 hr 05/10/18 05/10/18 05/10/18 21:41 22:28 22:28 WBC 15.0 H D RBC 4.15 L Hgb 11.9 L Hct 34.3 L MCV 82.7 MCH 28.8 MCHC 34.8 RDW 14.4 Plt Count 262 MPV 9.3 Neut % (Auto) 81.3 H Lymph % (Auto) 10.1 L [place] % (Auto) 6.8 Eos % (Auto) 1.1 Baso % (Auto) 0.7 Neut # (Auto) 12.2 H Lymph # (Auto) 1.5 [place] # (Auto) 1.0 H Eos # (Auto) 0.2 Baso # (Auto) 0.1 Sodium 139 Potassium 3.9 Chloride 103 Carbon Dioxide 20 L Anion Gap 20 BUN 54 H Creatinine 2.8 H Est GFR ( Amer) 26 Est GFR (Non-Af Amer) 22 POC Glucose (mg/dL) 82 Random Glucose 137 H Hemoglobin A1c Calcium 10.0 Phosphorus Magnesium Total Bilirubin 0.5 AST 30 ALT 25 Alkaline Phosphatase 68 Total Protein 8.0 Albumin 5.0 Globulin 3.0 Albumin/Globulin Ratio 1.7 Triglycerides Cholesterol LDL Cholesterol Direct HDL Cholesterol Prostate Specific Ag Free T4 TSH 3rd Generation Urine Color Urine Clarity Urine pH Ur Specific [place] Urine Protein Urine Glucose (UA) Urine Ketones Urine Blood Urine Nitrate Urine Bilirubin Urine Urobilinogen Ur Leukocyte Esterase Urine WBC (Auto) Urine RBC (Auto) Ur Squamous Epith Cells Urine Bacteria Hyaline Casts 05/10/18 05/10/18 05/11/18 22:51 23:13 06:18 WBC RBC Hgb Hct MCV MCH MCHC RDW Plt Count MPV Neut % (Auto) Lymph % (Auto) [place] % (Auto) Eos % (Auto) Baso % (Auto) Neut # (Auto) Lymph # (Auto) [place] # (Auto) Eos # (Auto) Baso # (Auto) Sodium Potassium Chloride Carbon Dioxide Anion Gap BUN Creatinine Est GFR ( Amer) Est GFR (Non-Af Amer) POC Glucose (mg/dL) 207 H 237 H Random Glucose Hemoglobin A1c Calcium Phosphorus Magnesium Total Bilirubin AST ALT Alkaline Phosphatase Total Protein Albumin Globulin Albumin/Globulin Ratio Triglycerides Cholesterol LDL Cholesterol Direct HDL Cholesterol Prostate Specific Ag Free T4 TSH 3rd Generation Urine Color Yellow Urine Clarity Hazy Urine pH 5.0 Ur Specific [place] 1.012 Urine Protein 1+ H Urine Glucose (UA) Normal Urine Ketones Negative Urine Blood 1+ H Urine Nitrate Negative Urine Bilirubin Negative Urine Urobilinogen Normal Ur Leukocyte Esterase 3+ H Urine WBC (Auto) 36 H Urine RBC (Auto) 2 Ur Squamous Epith Cells < 1 Urine Bacteria Many H Hyaline Casts 6-10 H 05/11/18 05/11/18 05/11/18 08:16 08:16 08:16 WBC 10.1 RBC 3.82 L Hgb 11.3 L Hct 31.5 L MCV 82.5 MCH 29.6 MCHC 35.9 RDW 14.1 Plt Count 234 MPV 9.4 Neut % (Auto) 62.2 Lymph % (Auto) 27.1 [place] % (Auto) 7.1 Eos % (Auto) 2.9 Baso % (Auto) 0.7 Neut # (Auto) 6.3 Lymph # (Auto) 2.7 [place] # (Auto) 0.7 Eos # (Auto) 0.3 Baso # (Auto) 0.1 Sodium 138 Potassium 3.9 Chloride 104 Carbon Dioxide 19 L Anion Gap 20 BUN 50 H Creatinine 2.5 H Est GFR ( Amer) 30 Est GFR (Non-Af Amer) 25 POC Glucose (mg/dL) Random Glucose 197 H Hemoglobin A1c 8.5 H Calcium 9.3 Phosphorus 3.6 Magnesium 1.9 Total Bilirubin AST ALT Alkaline Phosphatase Total Protein Albumin Globulin Albumin/Globulin Ratio Triglycerides 333 H D Cholesterol 265 H LDL Cholesterol Direct 102 HDL Cholesterol 28 L Prostate Specific Ag 0.660 Free T4 TSH 3rd Generation 1.80 Urine Color Urine Clarity Urine pH Ur Specific [place] Urine Protein Urine Glucose (UA) Urine Ketones Urine Blood Urine Nitrate Urine Bilirubin Urine Urobilinogen Ur Leukocyte Esterase Urine WBC (Auto) Urine RBC (Auto) Ur Squamous Epith Cells Urine Bacteria Hyaline Casts 05/11/18 08:16 WBC RBC Hgb Hct MCV MCH MCHC RDW Plt Count MPV Neut % (Auto) Lymph % (Auto) [place] % (Auto) Eos % (Auto) Baso % (Auto) Neut # (Auto) Lymph # (Auto) [place] # (Auto) Eos # (Auto) Baso # (Auto) Sodium Potassium Chloride Carbon Dioxide Anion Gap BUN Creatinine Est GFR ( Amer) Est GFR (Non-Af Amer) POC Glucose (mg/dL) Random Glucose Hemoglobin A1c Calcium Phosphorus Magnesium Total Bilirubin AST ALT Alkaline Phosphatase Total Protein Albumin Globulin Albumin/Globulin Ratio Triglycerides Cholesterol LDL Cholesterol Direct HDL Cholesterol Prostate Specific Ag Free T4 1.23 TSH 3rd Generation Urine Color Urine Clarity Urine pH Ur Specific [place] Urine Protein Urine Glucose (UA) Urine Ketones Urine Blood Urine Nitrate Urine Bilirubin Urine Urobilinogen Ur Leukocyte Esterase Urine WBC (Auto) Urine RBC (Auto) Ur Squamous Epith Cells Urine Bacteria Hyaline Casts Assessment & Plan (1) Hypoglycemia Status: Acute (2) JAY JAY (acute kidney injury) Status: Acute (3) CKD (chronic kidney disease) stage 3, GFR 30-59 ml/min Status: Acute (4) HTN (hypertension) Status: Acute - Assessment and Plan (Free Text) Assessment: -maintain iv fluids follow urine and blood cultures ua ordered meds reviewed, avoid nephrotoxic meds
[2018-05-11] MEDS ORDERED: Pantoprazole 40 mg EC Tab PO SCH (10:00)
[2018-05-11] MEDS ORDERED: LACTOBACILLUS ACIDOPHILUS PO SCH (10:00)
[2018-05-11] MEDS: (Lantus) Insulin Glargine, Recombinant SC SCH (21:45)
[2018-05-11] MEDS: Latanoprost 2.5 ml Opht Soln OU SCH (22:26)
[2018-05-12] MEDS: Sodium Chloride 0.9% 1,000 ML IV SCH ×3 (04:34→19:35)
[2018-05-12] MEDS: Levothyroxine 50 MCG TAB PO SCH (06:23)
[2018-05-12] MEDS: (Novolin R) Insulin Human Regular 100 units/ml vial SC SCH ×4 (07:22→21:25)
--- NOTE | 2018-05-12 09:55 | CP.PCM.PN ---
Subjective - Date & Time of Evaluation Date of Evaluation: 05/12/18 Time of Evaluation: 07:30 - Subjective Subjective: PGY-1 Medicine Progress Note for Dr. Blackwell Patient seen and examined at bedside this AM. No acute events reported overnight. No acute complaints at this time. No headaches, dizziness, confusion , chest pain, abdominal pain, SOB, n/v/d, constipation, dysuria. Objective - Vital Signs/Intake and Output Vital Signs (last 24 hours): Temp Pulse Resp BP Pulse Ox 98.0 F 60 20 162/75 H 99 05/12/18 07:00 05/12/18 07:00 05/12/18 07:00 05/12/18 07:00 05/12/18 07:00 - Medications Medications: Current Medications Amlodipine Besylate (Norvasc) 10 mg PO [facility]24[facility] Ascorbic Acid (Vitamin C 250 Mg Tab) 250 mg PO DAILY [facility] Last Admin: 05/11/18 09:17 Dose: 250 mg Aspirin (Aspirin Chewable) 81 mg PO DAILY [facility] Last Admin: 05/11/18 09:17 Dose: 81 mg Clopidogrel Bisulfate (Plavix) 75 mg PO DAILY [facility] Last Admin: 05/11/18 09:17 Dose: 75 mg Dextrose (Dextrose 50% Inj) 0 ml IV STAT PRN; Protocol PRN Reason: Hypoglycemia Protocol Dextrose (Glutose 15) 0 gm PO ONCE PRN; Protocol PRN Reason: Hypoglycemia Protocol Donepezil HCl (Aricept) 10 mg PO HS [facility] Last Admin: 05/11/18 21:45 Dose: 10 mg Famotidine (Pepcid) 20 mg PO DAILY [facility] Last Admin: 05/11/18 09:17 Dose: 20 mg Gemfibrozil (Lopid) 600 mg PO BID [facility] Last Admin: 05/11/18 17:27 Dose: 600 mg Glucagon (Glucagen Diagnostic Kit) 0 mg IM STAT PRN; Protocol PRN Reason: Hypoglycemia Protocol Heparin Sodium (Porcine) (Heparin) 5,000 units SC Q8 [facility] Last Admin: 05/12/18 06:23 Dose: 5,000 units Ceftriaxone Sodium 1 gm/ (Sodium Chloride) 100 mls @ 100 mls/hr IVPB DAILY [facility] PRN Reason: Protocol Last Admin: 05/11/18 09:15 Dose: 100 mls/hr Sodium Chloride (Sodium Chloride 0.9%) 1,000 mls @ 70 mls/hr IV .[id number] [facility] Last Admin: 05/12/18 04:34 Dose: Not Given Dextrose (Dextrose 5% In Water 1000 Ml) 1,000 mls @ 0 mls/hr IV .Q0M PRN; Protocol; Per Protocol PRN Reason: Hypoglycemia Protocol Insulin Glargine (Lantus) 10 unit SC [facility] Last Admin: 05/11/18 21:45 Dose: 10 unit Insulin Human Regular (Novolin R) 0 unit SC [facility] PRN Reason: Protocol Last Admin: 05/11/18 21:40 Dose: Not Given Lactobacillus Acidophilus (Bacid Acidophilus) 1 cap PO BID [facility] Last Admin: 05/11/18 17:27 Dose: 1 cap Latanoprost (Xalatan Opht) 0 ml OU [facility] Last Admin: 05/11/18 22:26 Dose: Not Given Levothyroxine Sodium (Synthroid) 50 mcg PO DAILY@0630 [facility] Last Admin: 05/12/18 06:23 Dose: 50 mcg Metoprolol Succinate (Toprol Xl) 100 mg PO DAILY [facility] Last Admin: 05/11/18 09:17 Dose: 100 mg Rosuvastatin Calcium (Crestor) 10 mg PO [facility] Last Admin: 05/11/18 21:45 Dose: 10 mg Sodium Bicarbonate (Sodium Bicarbonate Tab) 650 mg PO BID [facility] Last Admin: 05/11/18 17:27 Dose: 650 mg Tolterodine Tartrate (Detrol La) 4 mg PO DAILY [facility] - Labs Labs: 05/11/18 08:16 05/11/18 08:16 - Constitutional Appears: Non-toxic, No Acute Distress, Confused - Head Exam Head Exam: ATRAUMATIC, NORMAL INSPECTION, NORMOCEPHALIC - Eye Exam Eye Exam: EOMI, Normal appearance - ENT Exam ENT Exam: Mucous Membranes Moist, Normal Exam - Neck Exam Neck Exam: Normal Inspection - Respiratory Exam Respiratory Exam: Clear to Ausculation Bilateral, NORMAL BREATHING PATTERN. absent: Rales, Rhonchi, Wheezes - Cardiovascular Exam Cardiovascular Exam: RRR, +S1, +S2. absent: Gallop, Rubs, Murmur - GI/Abdominal Exam GI & Abdominal Exam: Soft, Normal Bowel Sounds. absent: Distended, Firm, Guarding, Rigid, Tenderness - Back Exam Back Exam: NORMAL INSPECTION. 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 Plan: 1. UTI -UA (05/10): Leuk Zahra 3+, Blood 1+, Bacteria many -BCx--preliminary: no growth after 24 hrs -Medications -Rocephin 1gm IVPB daily (started on 05/11) 2. Leukocytosis -afebrile -likely secondary to stress from hypoglycemic episode 3. Hypoglycemia Episode (resolved) -likely cause of AMS -tx with 1 amp D50 en route to hospital, returned to baseline No indication for further imaging or work up at this time. -See plan for DM requiring insulin 4. Acute on Chronic Renal Failure Could be 2/2 to Valsartan-HCTZ --> home medication held See plan for Hx of Renal Failure 5. Hx of Afib -Medications * Metoprolol Succinate 100 mg PO daily * Aspirin 81 mg PO daily 6. Hx of Acute Renal Failure -Nephrology recs appreciated (Dr. Oconnell) -avoid nephrotoxic agents -HCTZ/Valsartan held -previously treated with HD (resolved and permacath removed) -Improving BUN/Cr and GFR * 05/10/18- BUN/Cr: 54/2.8, GFR: 26 * 05/11/18- BUN/Cr: 50/2.5. GFR: 30 -Medications: * NS @70mL/hr * hold daily KCl 7. Hx CVA Chronic (Right Sided Deficit) -Medications * Aspirin 81 mg PO daily * Plavix 75 mg PO daily * Crestor 10 mg PO HS 8. Hx of Dementia (Alzheimers) -Medications * Aricept 10 mg DARNELL daily 9. Hx of Anemia of Chronic Disease -2/2 CKD 09/21/17 - Hb/Hct: 10.6/31.2 05/10/18- Hb/Hct: 11.9/34.3 - stable 10. Hx of Gluteal Abscess S/P I&D Jun 2017 and Tx'd w/ Bactrim 11. Hx of HLD -Lipid Panel pending -Medications * Lopid 600 mg PO BID * Lipitor to Crestor 10 mg PO HS 12. Hx HTN Medications * Metoprolol Succinate 10 mg PO daily - 10 am * Norvasc 10 mg PO daily - 10 pm 13. Hx DM requiring Insulin - f/u HbA1C - f/u TSH - f/u T4 -Hypoglycemic protocol -Medications * Lantus 10 units SQ HS * Regular low dose insulin sliding scale 14. Hx of Hypothyroidism F/u TSH, T4 Medications * Levothyroxine 50 mg PO/day 15. Hx of Overactive Bladder -PSA elevated 23.3 - Sep 2017 * Per patient and PMD, has never followed a urologist * f/u urology as outpatient -Medications * Toviaz 8 mg PO/day 16. Hx of Glaucoma -Medications * Travatan changed to Xalatan 1 drop b/l eyes * PMD ok with keeping on xalatan 17. Hx of GERD -Hx of thrombocytopenia, now normalized -Medications * Pepcid 20mg/day 18. Prophylaxis -Turn Pt Q2H -PT eval & tx -ask family about meal times and when insulin is given -B/l SCDs -DVT - Heparin 5,000 units SC QSH -GI - Pepcid 20mg PO daily Further recs as per Dr. Rosalva Ahn, PGY-1
[2018-05-12] MEDS: Lactobacillus Acidophilus 500 MU Cap PO SCH ×2 (10:36→17:41)
[2018-05-12] MEDS: Metoprolol Succinate 100 mg XL Tab PO SCH (10:36)
[2018-05-12] MEDS: Tolterodine 4 mg ER Cap PO SCH (10:37)
--- NOTE | 2018-05-12 15:03 | CARD ---
APPROVED REPORT Date of service: 05/10/2018 EKG Measurement Heart [id number] <Conclusion> Normal sinus rhythm Left axis deviation Left ventricular hypertrophy with repolarization abnormality Abnormal ECG
[2018-05-12] MEDS: (Lantus) Insulin Glargine, Recombinant SC SCH (21:46)
[2018-05-12] MEDS: Latanoprost 2.5 ml Opht Soln OU SCH (22:09)
[2018-05-13] MEDS: Levothyroxine 50 MCG TAB PO SCH (05:47)
--- NOTE | 2018-05-13 07:35 | CP.PCM.PN ---
<Hari Ahn - Last Filed: 05/13/18 18:19> Subjective - Date & Time of Evaluation Date of Evaluation: 05/13/18 Time of Evaluation: 07:30 - Subjective Subjective: PGY-1 Medicine Progress Note for Dr. Menchaca Patient was seen and examined at bedside this AM. No acute events reported overnight. Patient does not endorse any increased urinary frequency this morning , no dysuria. Denies headaches, dizziness, confusion, chest pain, abdominal pain , SOB, n/v/d, constipation, dysuria. Objective - Vital Signs/Intake and Output Vital Signs (last 24 hours): Temp Pulse Resp BP Pulse Ox 98 F 54 L 20 95/55 L 95 05/12/18 23:30 05/12/18 23:30 05/12/18 23:30 05/12/18 23:30 05/12/18 23:30 Intake and Output: 05/13/18 05/13/18 06:59 18:59 Output Total 600 Balance -600 - Medications Medications: Current Medications Amlodipine Besylate (Norvasc) 10 mg PO Q24H [facility] Last Admin: 05/12/18 21:43 Dose: 10 mg Ascorbic Acid (Vitamin C 250 Mg Tab) 250 mg PO DAILY [facility] Last Admin: 05/12/18 10:36 Dose: 250 mg Aspirin (Aspirin Chewable) 81 mg PO DAILY [facility] Last Admin: 05/12/18 10:36 Dose: 81 mg Clopidogrel Bisulfate (Plavix) 75 mg PO DAILY [facility] Last Admin: 05/12/18 10:36 Dose: 75 mg Dextrose (Dextrose 50% Inj) 0 ml IV STAT PRN; Protocol PRN Reason: Hypoglycemia Protocol Dextrose (Glutose 15) 0 gm PO ONCE PRN; Protocol PRN Reason: Hypoglycemia Protocol Donepezil HCl (Aricept) 10 mg PO HS [facility] Last Admin: 05/12/18 21:43 Dose: 10 mg Famotidine (Pepcid) 20 mg PO DAILY [facility] Last Admin: 05/12/18 10:36 Dose: 20 mg Gemfibrozil (Lopid) 600 mg PO BID [facility] Last Admin: 05/12/18 17:41 Dose: 600 mg Glucagon (Glucagen Diagnostic Kit) 0 mg IM STAT PRN; Protocol PRN Reason: Hypoglycemia Protocol Heparin Sodium (Porcine) (Heparin) 5,000 units SC Q8 [facility] Last Admin: 05/13/18 05:46 Dose: 5,000 units Ceftriaxone Sodium 1 gm/ (Sodium Chloride) 100 mls @ 100 mls/hr IVPB DAILY [facility] PRN Reason: Protocol Last Admin: 05/12/18 10:36 Dose: 100 mls/hr Sodium Chloride (Sodium Chloride 0.9%) 1,000 mls @ 70 mls/hr IV .[id number] [facility] Last Admin: 05/12/18 19:35 Dose: Not Given Dextrose (Dextrose 5% In Water 1000 Ml) 1,000 mls @ 0 mls/hr IV .Q0M PRN; Protocol; Per Protocol PRN Reason: Hypoglycemia Protocol Insulin Glargine (Lantus) 10 unit SC HS [facility] Last Admin: 05/12/18 21:46 Dose: 10 unit Insulin Human Regular (Novolin R) 0 unit SC ACHS [facility] PRN Reason: Protocol Last Admin: 05/12/18 21:25 Dose: Not Given Lactobacillus Acidophilus (Bacid Acidophilus) 1 cap PO BID [facility] Last Admin: 05/12/18 17:41 Dose: 1 cap Latanoprost (Xalatan Opht) 0 ml OU [facility] Last Admin: 05/12/18 22:09 Dose: 2.5 ml Levothyroxine Sodium (Synthroid) 50 mcg PO DAILY@0630 [facility] Last Admin: 05/13/18 05:47 Dose: 50 mcg Metoprolol Succinate (Toprol Xl) 100 mg PO DAILY [facility] Last Admin: 05/12/18 10:36 Dose: 100 mg Rosuvastatin Calcium (Crestor) 10 mg PO [facility] Last Admin: 05/12/18 21:43 Dose: 10 mg Sodium Bicarbonate (Sodium Bicarbonate Tab) 650 mg PO BID [facility] Last Admin: 05/12/18 17:41 Dose: 650 mg Tolterodine Tartrate (Detrol La) 4 mg PO DAILY [facility] Last Admin: 05/12/18 10:37 Dose: 4 mg - Labs Labs: 05/11/18 08:16 05/11/18 08:16 - Constitutional Appears: Non-toxic, No Acute Distress, Confused - Head Exam Head Exam: ATRAUMATIC, NORMAL INSPECTION, NORMOCEPHALIC - Eye Exam Eye Exam: EOMI, Normal appearance - ENT Exam ENT Exam: Mucous Membranes Moist, Normal Exam - Neck Exam Neck Exam: Normal Inspection - Respiratory Exam Respiratory Exam: Clear to Ausculation Bilateral, NORMAL BREATHING PATTERN. absent: Rales, Rhonchi, Wheezes - Cardiovascular Exam Cardiovascular Exam: RRR, +S1, +S2. absent: Gallop, Rubs, Murmur - GI/Abdominal Exam GI & Abdominal Exam: Soft, Normal Bowel Sounds. absent: Distended, Firm, Guarding, Tenderness, Rebound - Extremities Exam Extremities Exam: Normal Capillary Refill, Normal Inspection - Neurological Exam Neurological Exam: Alert, Awake. absent: Oriented x3 Additional comments: Alert and oriented to self. 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 Plan: 1. UTI -UA (05/10): Leuk Zahra 3+, Blood 1+, Bacteria many -BCx--preliminary: no growth after 24 hrs -UCx: + klebsiella -f/u repeat UA, UCx -Medications -Rocephin 1gm IVPB daily (started on 05/11) -Nephro recs (Dr. Oconnell) appreciated -renal u/s negative -f/u protein excretion rate 2. Leukocytosis -likely resolved; WBCs downtrendin->10.1->6.2 -afebrile -likely secondary to stress from hypoglycemic episode 3. Hypoglycemia Episode (resolved) -likely cause of AMS -tx with 1 amp D50 en route to hospital, returned to baseline No indication for further imaging or work up at this time. -See plan for DM requiring insulin 4. Acute on Chronic Renal Failure Could be 2/2 to Valsartan-HCTZ --> home medication held See plan for Hx of Renal Failure 5. Hx of Afib -Medications * Metoprolol Succinate 100 mg PO daily * Aspirin 81 mg PO daily 6. Hx of Acute Renal Failure -Nephrology recs appreciated (Dr. Oconnell) -avoid nephrotoxic agents -HCTZ/Valsartan held -previously treated with HD (resolved and permacath removed) -Improving BUN/Cr and GFR * 05/10/18- BUN/Cr: 54/2.8, GFR: 26 * 05/11/18- BUN/Cr: 50/2.5. GFR: 30 * 05/13/18- BUN/Cr: 25/1.4 GFR: 59 -Medications: * NS @70mL/hr * hold daily KCl 7. Hx CVA Chronic (Right Sided Deficit) -Medications * Aspirin 81 mg PO daily * Plavix 75 mg PO daily * Crestor 10 mg PO HS 8. Hx of Dementia (Alzheimers) -Medications * Aricept 10 mg DARNELL daily 9. Hx of Anemia of Chronic Disease -2/2 CKD 09/21/17 - Hb/Hct: 10.6/31.2 05/10/18- Hb/Hct: 11.9/34.3 - stable 10. Hx of Gluteal Abscess S/P I&D Jun 2017 and Tx'd w/ Bactrim 11. Hx of HLD -Lipid Panel pending -Medications * Lopid 600 mg PO BID * Lipitor to Crestor 10 mg PO HS 12. Hx HTN Medications * Metoprolol Succinate 10 mg PO daily - 10 am * Norvasc 10 mg PO daily - 10 pm 13. Hx DM requiring Insulin - f/u HbA1C - f/u TSH - f/u T4 -Hypoglycemic protocol -Medications * Lantus 10 units SQ HS * Regular low dose insulin sliding scale 14. Hx of Hypothyroidism F/u TSH, T4 Medications * Levothyroxine 50 mg PO/day 15. Hx of Overactive Bladder -PSA elevated 23.3 - Sep 2017 * Per patient and PMD, has never followed a urologist * f/u urology as outpatient -Medications * Toviaz 8 mg PO/day 16. Hx of Glaucoma -Medications * Travatan changed to Xalatan 1 drop b/l eyes * PMD ok with keeping on xalatan 17. Hx of GERD -Hx of thrombocytopenia, now normalized -Medications * Pepcid 20mg/day 18. Prophylaxis -Turn Pt Q2H -PT eval & tx -ask family about meal times and when insulin is given -B/l SCDs -DVT - Heparin 5,000 units SC QSH -GI - Pepcid 20mg PO daily Case discussed with Dr. Bernarda Ahn, PGY-1 <Gladys Menchaca V - Last Filed: 05/13/18 21:51> Objective - Vital Signs/Intake and Output Vital Signs (last 24 hours): Temp Pulse Resp BP Pulse Ox 97.6 F 64 20 143/67 100 05/13/18 15:00 05/13/18 16:44 05/13/18 15:00 05/13/18 16:44 05/13/18 15:00 Intake and Output: 05/13/18 05/14/18 18:59 06:59 Intake Total 410 Balance 410 - Medications Medications: Current Medications Amlodipine Besylate (Norvasc) 10 mg PO Q24H [facility] Last Admin: 05/13/18 14:03 Dose: 10 mg Ascorbic Acid (Vitamin C 250 Mg Tab) 250 mg PO DAILY [facility] Last Admin: 05/13/18 12:13 Dose: 250 mg Aspirin (Aspirin Chewable) 81 mg PO DAILY [facility] Last Admin: 05/13/18 12:09 Dose: 81 mg Clopidogrel Bisulfate (Plavix) 75 mg PO DAILY [facility] Last Admin: 05/13/18 12:09 Dose: 75 mg Dextrose (Dextrose 50% Inj) 0 ml IV STAT PRN; Protocol PRN Reason: Hypoglycemia Protocol Dextrose (Glutose 15) 0 gm PO ONCE PRN; Protocol PRN Reason: Hypoglycemia Protocol Donepezil HCl (Aricept) 10 mg PO HS [facility] Last Admin: 05/13/18 21:24 Dose: 10 mg Famotidine (Pepcid) 20 mg PO DAILY [facility] Last Admin: 05/13/18 12:09 Dose: 20 mg Gemfibrozil (Lopid) 600 mg PO BID [facility] Last Admin: 05/13/18 17:35 Dose: 600 mg Glucagon (Glucagen Diagnostic Kit) 0 mg IM STAT PRN; Protocol PRN Reason: Hypoglycemia Protocol Heparin Sodium (Porcine) (Heparin) 5,000 units SC Q8 [facility] Last Admin: 05/13/18 21:25 Dose: 5,000 units Ceftriaxone Sodium 1 gm/ (Sodium Chloride) 100 mls @ 100 mls/hr IVPB DAILY [facility] PRN Reason: Protocol Last Admin: 05/13/18 12:13 Dose: 100 mls/hr Sodium Chloride (Sodium Chloride 0.9%) 1,000 mls @ 70 mls/hr IV .[id number] [facility] Last Admin: 05/13/18 21:26 Dose: 70 mls/hr Dextrose (Dextrose 5% In Water 1000 Ml) 1,000 mls @ 0 mls/hr IV .Q0M PRN; Protocol; Per Protocol PRN Reason: Hypoglycemia Protocol Insulin Glargine (Lantus) 10 unit SC [facility] Last Admin: 05/13/18 21:25 Dose: 10 unit Insulin Human Regular (Novolin R) 0 unit SC [facility] PRN Reason: Protocol Last Admin: 05/13/18 17:13 Dose: Not Given Lactobacillus Acidophilus (Bacid Acidophilus) 1 cap PO BID [facility] Last Admin: 05/13/18 17:35 Dose: 1 cap Latanoprost (Xalatan Opht) 0 ml OU [facility] Last Admin: 05/13/18 21:25 Dose: 2.5 ml Levothyroxine Sodium (Synthroid) 50 mcg PO DAILY@0630 [facility] Last Admin: 05/13/18 05:47 Dose: 50 mcg Metoprolol Succinate (Toprol Xl) 100 mg PO DAILY [facility] Last Admin: 05/13/18 12:11 Dose: Not Given Rosuvastatin Calcium (Crestor) 10 mg PO [facility] Last Admin: 05/13/18 21:24 Dose: 10 mg Sodium Bicarbonate (Sodium Bicarbonate Tab) 650 mg PO BID [facility] Last Admin: 05/13/18 17:35 Dose: 650 mg Tolterodine Tartrate (Detrol La) 4 mg PO DAILY [facility] Last Admin: 05/13/18 12:14 Dose: 4 mg - Labs Labs: 05/13/18 08:03 05/13/18 08:03 Attending/Attestation - Attestation I have personally seen and examined this patient.: Yes I have fully participated in the care of the patient.: Yes I have reviewed all pertinent clinical information, including history, physical exam and plan: Yes Notes (Text): Patient seen, examined and case discussed with medical illustrator. Patient seen at bedside in the afternoon. Patient is not in acute distress; he is at baseline dementia no family present at bedside. Creatinine has normalized from 2.8 to 1.4. Patient's urine culture shows Klebsiella Pneumoniae sensitive to Rocephin; repeat urine culture. Patient undergoing 24 hour urine collection for protein per nephrology. Discussed with case management, patient goes to medical adult day care and his niece Lyndsey is aware. Plan for discharge tomorrow pending urine culture repeat. Assessment/Plan 1) Acute Renal Failure Assessment/Plan * Nephrology (Dr. Oconnell) on board-->help appreciated * Could be 2/2 to Valsartan-HCTZ --> will hold home medication * NS 70cc/hr * On sodium bicarbonate tabs * Patient last admission need temporary dialysis and renal function recovered 2) Urinary Tract Infection Assessment/Plan * UA (clean catch) 05/10: Leuk Zahra 3+, Blood 1+ * Urine culture (05/10/18): Klebsiella Pneumoniae * Urine culture (05/13/18): pending * Blood cultures (05/10/18): no growth after 48 hours X2 Medications * Rocephin 1gm IVPB daily (started on 05/11/18) * Will switch to Cipro PO for discharge planning * Given one dose of Cefepime 1gm IVPB while in ED on 05/10/18 3) Leukocytosis Assessment/Plan * Has normalized * Urine culture (05/10/18): Klebsiella Pneumoniae * Urine culture (05/13/18): pending * Blood cultures (05/10/18): no growth after 48 hours X2 * Afebrile 4) Hypoglycemia Episode-->resolved Assessment/Plan * Noted in ED triage note * Given Glucagon on route on ambulance * Patient is at baseline mental status * Hypoglycemic protocol * lantus 10 units subHS * Regular insulin sliding scale subq * Accuchecks QAC and HS 5) Hx of Atrial Fibrillation Assessment/Plan * Metoprolol Succinate 100 mg PO daily * Aspirin 81 mg PO daily 6) Hx CVA Chronic (Right Sided Deficit) Assessment/Plan * Aspirin 81 mg PO daily * Plavix 75 mg PO daily * Crestor 10 mg PO HS 7) Hx of Dementia (Alzheimers) Assessment/Plan * Aricept 10 mg DARNELL daily 8) Hx of Anemia of Chronic Disease Assessment/Plan * Monitor H/H 9) Hx of HLD Assessment/Plan * T, Chol: 265, LDL: 102, HDL: 28 Medications * Lopid 600 mg PO BID * Crestor 10 mg PO HS 10) Hypertension Assessment/Plan Medications * Metoprolol Succinate 10 mg PO daily * Norvasc 10 mg PO daily 11) Hx DM, uncontrolled Assessment/Plan * Hgba1c: 8.5 * Noted in ED triage note * Given Glucagon on route on ambulance * Patient is at baseline mental status * Hypoglycemic protocol * lantus 10 units subHS * Regular insulin sliding scale subq * Accuchecks QAC and HS * Crestor 10 mg PO HS * Aspirin 81mg PO daily 12) Hx of Hypothyroidism Assessment/Plan * Thyroid studies within normal * Levothyroxine 50 mg PO/day 13) Hx of Overactive Bladder Assessment/Plan * PSA elevated 23.3 - Sep 2017-->improved 0.660 * Will need to f/u with family about urology as outpatient * Toviaz 8 mg PO/day (please have family bring home medication in) 14) Hx of Glaucoma Assessment/Plan Medications * Travatan changed to Xalatan 1 drop b/l eyes 15) Hx of GERD Assessment/Plan * Pepcid 20mg/day 16) Prophylaxis * Turn Pt Q2H * PT eval & tx * B/l SCDs * DVT - Heparin 5,000 units SC QSH * GI - Pepcid 20mg PO daily Disposition: patient for discharge likely tomorrow; pending urine culture.
[2018-05-13 08:13] LABS: BASO # 0.1 K/uL (0.0-0.2); EOS # 0.3 K/uL (0.0-0.7); EOS % 5.1 % (0.0-4.0); HEMOGLOBIN 10.5 g/dL (12.0-18.0); LYMPH # 2.5 K/uL (1.0-4.3); MEAN CELL VOLUME 82.9 fL (80.0-94.0); MEAN CORPUSCULAR HEMOGLOBIN 28.8 pg (27.0-31.0); MEAN CORPUSCULAR HGB CONC 34.8 g/dL (33.0-37.0); MEAN PLATELET VOLUME 9.1 fL (7.2-11.7); MONO # 0.6 K/uL (0.0-0.8); MONO % 9.8 % (0.0-10.0); NEUT # 2.7 K/uL (1.8-7.0); NEUT % 43.1 % (50.0-75.0); RBC 3.65 Mil/uL (4.40-5.90); WHITE BLOOD COUNT 6.2 K/uL (4.8-10.8)
[2018-05-13] MEDS: (Novolin R) Insulin Human Regular 100 units/ml vial SC SCH ×4 (08:13→22:39)
[2018-05-13 08:59] LABS: ALB/GLOB RATIO 1.4 (1.0-2.1); ALBUMIN 3.8 g/dL (3.5-5.0); CALCIUM 8.8 mg/dl (8.6-10.4)
[2018-05-13] MEDS: Sodium Chloride 0.9% 1,000 ML IV SCH ×3 (09:15→22:46)
--- NOTE | 2018-05-13 09:52 | CP.PCM.PN ---
Subjective - Date & Time of Evaluation Date of Evaluation: 05/13/18 Time of Evaluation: 09:50 - Subjective Subjective: Alert; in NAD No new nausea, vomiting, fevers, chills, diarrhea, dysuria Creat decreasing; now 1.4 Tolerating IV fluids Has some proteinuria cultures -positive for UTI Objective - Vital Signs/Intake and Output Vital Signs (last 24 hours): Temp Pulse Resp BP Pulse Ox 98.0 F 60 20 156/72 H 97 05/13/18 07:00 05/13/18 07:00 05/13/18 07:00 05/13/18 07:00 05/13/18 07:00 Intake and Output: 05/13/18 05/13/18 06:59 18:59 Output Total 600 Balance -600 - Medications Medications: Current Medications Amlodipine Besylate (Norvasc) 10 mg PO Q24H [facility] Last Admin: 05/12/18 21:43 Dose: 10 mg Ascorbic Acid (Vitamin C 250 Mg Tab) 250 mg PO DAILY [facility] Last Admin: 05/12/18 10:36 Dose: 250 mg Aspirin (Aspirin Chewable) 81 mg PO DAILY [facility] Last Admin: 05/12/18 10:36 Dose: 81 mg Clopidogrel Bisulfate (Plavix) 75 mg PO DAILY [facility] Last Admin: 05/12/18 10:36 Dose: 75 mg Dextrose (Dextrose 50% Inj) 0 ml IV STAT PRN; Protocol PRN Reason: Hypoglycemia Protocol Dextrose (Glutose 15) 0 gm PO ONCE PRN; Protocol PRN Reason: Hypoglycemia Protocol Donepezil HCl (Aricept) 10 mg PO HS [facility] Last Admin: 05/12/18 21:43 Dose: 10 mg Famotidine (Pepcid) 20 mg PO DAILY [facility] Last Admin: 05/12/18 10:36 Dose: 20 mg Gemfibrozil (Lopid) 600 mg PO BID [facility] Last Admin: 05/12/18 17:41 Dose: 600 mg Glucagon (Glucagen Diagnostic Kit) 0 mg IM STAT PRN; Protocol PRN Reason: Hypoglycemia Protocol Heparin Sodium (Porcine) (Heparin) 5,000 units SC Q8 [facility] Last Admin: 05/13/18 05:46 Dose: 5,000 units Ceftriaxone Sodium 1 gm/ (Sodium Chloride) 100 mls @ 100 mls/hr IVPB DAILY [facility] PRN Reason: Protocol Last Admin: 05/12/18 10:36 Dose: 100 mls/hr Sodium Chloride (Sodium Chloride 0.9%) 1,000 mls @ 70 mls/hr IV .[id number] [facility] Last Admin: 05/12/18 19:35 Dose: Not Given Dextrose (Dextrose 5% In Water 1000 Ml) 1,000 mls @ 0 mls/hr IV .Q0M PRN; Protocol; Per Protocol PRN Reason: Hypoglycemia Protocol Insulin Glargine (Lantus) 10 unit SC [facility] Last Admin: 05/12/18 21:46 Dose: 10 unit Insulin Human Regular (Novolin R) 0 unit SC [facility] PRN Reason: Protocol Last Admin: 05/13/18 08:13 Dose: Not Given Lactobacillus Acidophilus (Bacid Acidophilus) 1 cap PO BID [facility] Last Admin: 05/12/18 17:41 Dose: 1 cap Latanoprost (Xalatan Opht) 0 ml OU [facility] Last Admin: 05/12/18 22:09 Dose: 2.5 ml Levothyroxine Sodium (Synthroid) 50 mcg PO DAILY@0630 [facility] Last Admin: 05/13/18 05:47 Dose: 50 mcg Metoprolol Succinate (Toprol Xl) 100 mg PO DAILY [facility] Last Admin: 05/12/18 10:36 Dose: 100 mg Rosuvastatin Calcium (Crestor) 10 mg PO [facility] Last Admin: 05/12/18 21:43 Dose: 10 mg Sodium Bicarbonate (Sodium Bicarbonate Tab) 650 mg PO BID [facility] Last Admin: 05/12/18 17:41 Dose: 650 mg Tolterodine Tartrate (Detrol La) 4 mg PO DAILY [facility] Last Admin: 05/12/18 10:37 Dose: 4 mg - Labs Labs: 05/13/18 08:03 05/13/18 08:03 - Constitutional Appears: No Acute Distress, Chronically Ill - Head Exam Head Exam: ATRAUMATIC, NORMAL INSPECTION - Eye Exam Eye Exam: EOMI, Normal appearance - ENT Exam ENT Exam: Normal Exam, Normal Oropharynx - Neck Exam Neck Exam: Normal Inspection. absent: Tenderness - Respiratory Exam Respiratory Exam: Clear to Ausculation Bilateral, NORMAL BREATHING PATTERN - Cardiovascular Exam Cardiovascular Exam: REGULAR RHYTHM, +S1 - GI/Abdominal Exam GI & Abdominal Exam: Distended, Soft. absent: Tenderness - Extremities Exam Extremities Exam: Normal Inspection. absent: Tenderness - Neurological Exam Neurological Exam: Alert, CN II-XII Intact - Skin Skin Exam: Dry, Warm Assessment and Plan (1) UTI (urinary tract infection) Status: Acute (2) Acute renal insufficiency Status: Acute (3) CKD (chronic kidney disease) stage 3, GFR 30-59 ml/min Status: Acute (4) CVA, old, cognitive deficits Status: Acute - Assessment and Plan (Free Text) Plan: continue IV fluids for now renal US protein excretion rate repeat chemistries IV ABs for UTI monitor HTN
--- NOTE | 2018-05-13 11:39 | US ---
Date of service: 05/13/2018 PROCEDURE: Ultrasound of the Kidneys HISTORY: sandi eval COMPARISON: Correlation is made to CT scan of the abdomen pelvis dated 07/14/2017. TECHNIQUE: Sonogram of the kidneys. FINDINGS: RIGHT KIDNEY: Measures: 8.3 x 4.9 x 5.0 cm. Normal in size, contour and echogenicity. No stone, solid mass lesion or hydronephrosis visualized. LEFT KIDNEY: Measures: 9.3 x 4.4 x 4.2 cm. Normal in size, contour and echogenicity. No stone, solid mass lesion or hydronephrosis visualized. OTHER FINDINGS: None. IMPRESSION: Unremarkable renal sonogram.
[2018-05-13] MEDS: Metoprolol Succinate 100 mg XL Tab PO SCH (12:11)
[2018-05-13] MEDS: Lactobacillus Acidophilus 500 MU Cap PO SCH ×2 (12:12→17:35)
[2018-05-13] MEDS: Tolterodine 4 mg ER Cap PO SCH (12:14)
[2018-05-13 13:31] LABS: SQUAMOUS EPITHIAL < 1 /hpf (0-5); URINE BILIRUBIN NEGATIVE (NEGATIVE); URINE BLOOD NEGATIVE (NEGATIVE); URINE CLARITY Clear (Clear); URINE COLOR Straw (YELLOW); URINE GLUCOSE (UA) 3+ mg/dL (Normal); URINE LEUKOCYTE ESTERASE NEG Leu/uL (Negative); URINE PROTEIN 2+ mg/dL (NEGATIVE); URINE UROBILINOGEN NORMAL mg/dL (0.2-1.0)
[2018-05-13] MEDS: (Lantus) Insulin Glargine, Recombinant SC SCH (21:25)
[2018-05-13] MEDS: Latanoprost 2.5 ml Opht Soln OU SCH (21:25)
[2018-05-14] MEDS: Levothyroxine 50 MCG TAB PO SCH (05:37)
--- NOTE | 2018-05-14 07:42 | CP.PCM.PN ---
Subjective - Date & Time of Evaluation Date of Evaluation: 05/14/18 Time of Evaluation: 07:00 Objective - Vital Signs/Intake and Output Vital Signs (last 24 hours): Temp Pulse Resp BP Pulse Ox 98 F 61 20 152/62 H 97 05/13/18 23:24 05/13/18 23:24 05/13/18 23:24 05/13/18 23:24 05/13/18 23:24 Intake and Output: 05/14/18 05/14/18 06:59 18:59 Intake Total 1620 Balance 1620 - Medications Medications: Current Medications Amlodipine Besylate (Norvasc) 10 mg PO Q24H [facility] Last Admin: 05/13/18 14:03 Dose: 10 mg Ascorbic Acid (Vitamin C 250 Mg Tab) 250 mg PO DAILY [facility] Last Admin: 05/13/18 12:13 Dose: 250 mg Aspirin (Aspirin Chewable) 81 mg PO DAILY [facility] Last Admin: 05/13/18 12:09 Dose: 81 mg Clopidogrel Bisulfate (Plavix) 75 mg PO DAILY [facility] Last Admin: 05/13/18 12:09 Dose: 75 mg Dextrose (Dextrose 50% Inj) 0 ml IV STAT PRN; Protocol PRN Reason: Hypoglycemia Protocol Dextrose (Glutose 15) 0 gm PO ONCE PRN; Protocol PRN Reason: Hypoglycemia Protocol Donepezil HCl (Aricept) 10 mg PO HS [facility] Last Admin: 05/13/18 21:24 Dose: 10 mg Famotidine (Pepcid) 20 mg PO DAILY [facility] Last Admin: 05/13/18 12:09 Dose: 20 mg Gemfibrozil (Lopid) 600 mg PO BID [facility] Last Admin: 05/13/18 17:35 Dose: 600 mg Glucagon (Glucagen Diagnostic Kit) 0 mg IM STAT PRN; Protocol PRN Reason: Hypoglycemia Protocol Heparin Sodium (Porcine) (Heparin) 5,000 units SC Q8 [facility] Last Admin: 05/14/18 05:37 Dose: 5,000 units Ceftriaxone Sodium 1 gm/ (Sodium Chloride) 100 mls @ 100 mls/hr IVPB DAILY [facility] PRN Reason: Protocol Last Admin: 05/13/18 12:13 Dose: 100 mls/hr Sodium Chloride (Sodium Chloride 0.9%) 1,000 mls @ 70 mls/hr IV .[id number] [facility] Last Admin: 05/13/18 22:46 Dose: Not Given Dextrose (Dextrose 5% In Water 1000 Ml) 1,000 mls @ 0 mls/hr IV .Q0M PRN; Protocol; Per Protocol PRN Reason: Hypoglycemia Protocol Insulin Glargine (Lantus) 10 unit SC [facility] Last Admin: 05/13/18 21:25 Dose: 10 unit Insulin Human Regular (Novolin R) 0 unit SC [facility] PRN Reason: Protocol Last Admin: 05/13/18 22:39 Dose: Not Given Lactobacillus Acidophilus (Bacid Acidophilus) 1 cap PO BID [facility] Last Admin: 05/13/18 17:35 Dose: 1 cap Latanoprost (Xalatan Opht) 0 ml OU [facility] Last Admin: 05/13/18 21:25 Dose: 2.5 ml Levothyroxine Sodium (Synthroid) 50 mcg PO DAILY@0630 [facility] Last Admin: 05/14/18 05:37 Dose: 50 mcg Metoprolol Succinate (Toprol Xl) 100 mg PO DAILY [facility] Last Admin: 05/13/18 12:11 Dose: Not Given Rosuvastatin Calcium (Crestor) 10 mg PO [facility] Last Admin: 05/13/18 21:24 Dose: 10 mg Sodium Bicarbonate (Sodium Bicarbonate Tab) 650 mg PO BID [facility] Last Admin: 05/13/18 17:35 Dose: 650 mg Tolterodine Tartrate (Detrol La) 4 mg PO DAILY [facility] Last Admin: 05/13/18 12:14 Dose: 4 mg - Labs Labs: 05/13/18 08:03 05/13/18 08:03
[2018-05-14 07:43] LABS: ALB/GLOB RATIO 1.4 (1.0-2.1); ALBUMIN 3.8 g/dL (3.5-5.0); CALCIUM 9.2 mg/dl (8.6-10.4)
[2018-05-14 07:47] LABS: BASO # 0.1 K/uL (0.0-0.2); BASO % 1.3 % (0.0-2.0); EOS # 0.3 K/uL (0.0-0.7); EOS % 5.2 % (0.0-4.0); LYMPH # 2.3 K/uL (1.0-4.3); LYMPH % 36.4 % (20.0-40.0); MEAN CELL VOLUME 82.9 fL (80.0-94.0); MEAN CORPUSCULAR HEMOGLOBIN 29.6 pg (27.0-31.0); MEAN CORPUSCULAR HGB CONC 35.7 g/dL (33.0-37.0); MEAN PLATELET VOLUME 9.4 fL (7.2-11.7); MONO # 0.8 K/uL (0.0-0.8); MONO % 12.5 % (0.0-10.0); NEUT # 2.9 K/uL (1.8-7.0); NEUT % 44.6 % (50.0-75.0); NRBC % 0.1 % (0.0-2.0); RBC 3.73 Mil/uL (4.40-5.90); RED CELL DISTRIBUTION WIDTH 14.1 % (11.5-14.5); WHITE BLOOD COUNT 6.4 K/uL (4.8-10.8)
[2018-05-14] MEDS: (Novolin R) Insulin Human Regular 100 units/ml vial SC SCH ×3 (08:30→17:17)
[2018-05-14] MEDS: Metoprolol Succinate 100 mg XL Tab PO SCH (09:03)
[2018-05-14] MEDS: Lactobacillus Acidophilus 500 MU Cap PO SCH ×2 (09:04→17:17)
[2018-05-14] MEDS: Tolterodine 4 mg ER Cap PO SCH (09:04)
[2018-05-14] MEDS ORDERED: Bisacodyl 5mg EC Tab PO ONE (10:20)
[2018-05-14] MEDS: Sodium Chloride 0.9% 1,000 ML IV SCH ×2 (11:04→13:03)
[2018-05-14] MEDS: Simethicone 80 mg Chewtab PO SCH ×2 (13:03→17:17)
--- NOTE | 2018-05-14 13:11 | CP.PCM.PN ---
Subjective - Date & Time of Evaluation Date of Evaluation: 05/14/18 Time of Evaluation: 13:08 - Subjective Subjective: eating well; appears better no n, v, fevers, chils, SOB, dysuria BP controlled Creat at 1.6- possibly baseline Renal US normal still on fluids IV Objective - Vital Signs/Intake and Output Vital Signs (last 24 hours): Temp Pulse Resp BP Pulse Ox 97.9 F 63 20 126/67 99 05/14/18 07:52 05/14/18 09:02 05/14/18 07:52 05/14/18 09:02 05/14/18 07:52 Intake and Output: 05/14/18 05/14/18 06:59 18:59 Intake Total 1620 Balance 1620 - Medications Medications: Current Medications Amlodipine Besylate (Norvasc) 10 mg PO Q24H [facility] Last Admin: 05/13/18 14:03 Dose: 10 mg Ascorbic Acid (Vitamin C 250 Mg Tab) 250 mg PO DAILY [facility] Last Admin: 05/14/18 09:03 Dose: 250 mg Aspirin (Aspirin Chewable) 81 mg PO DAILY [facility] Last Admin: 05/14/18 09:03 Dose: 81 mg Clopidogrel Bisulfate (Plavix) 75 mg PO DAILY [facility] Last Admin: 05/14/18 09:03 Dose: 75 mg Dextrose (Dextrose 50% Inj) 0 ml IV STAT PRN; Protocol PRN Reason: Hypoglycemia Protocol Dextrose (Glutose 15) 0 gm PO ONCE PRN; Protocol PRN Reason: Hypoglycemia Protocol Donepezil HCl (Aricept) 10 mg PO HS [facility] Last Admin: 05/13/18 21:24 Dose: 10 mg Famotidine (Pepcid) 20 mg PO DAILY [facility] Last Admin: 05/14/18 09:03 Dose: 20 mg Gemfibrozil (Lopid) 600 mg PO BID [facility] Last Admin: 05/14/18 09:03 Dose: 600 mg Glucagon (Glucagen Diagnostic Kit) 0 mg IM STAT PRN; Protocol PRN Reason: Hypoglycemia Protocol Heparin Sodium (Porcine) (Heparin) 5,000 units SC Q8 [facility] Last Admin: 05/14/18 13:02 Dose: 5,000 units Ceftriaxone Sodium 1 gm/ (Sodium Chloride) 100 mls @ 100 mls/hr IVPB DAILY [facility] PRN Reason: Protocol Last Admin: 08/31/18 09:26 Dose: 100 mls/hr Sodium Chloride (Sodium Chloride 0.9%) 1,000 mls @ 70 mls/hr IV .[id number] [facility] Last Admin: 05/14/18 13:03 Dose: Not Given Dextrose (Dextrose 5% In Water 1000 Ml) 1,000 mls @ 0 mls/hr IV .Q0M PRN; Protocol; Per Protocol PRN Reason: Hypoglycemia Protocol Insulin Glargine (Lantus) 10 unit SC [facility] Last Admin: 05/13/18 21:25 Dose: 10 unit Insulin Human Regular (Novolin R) 0 unit SC [facility] PRN Reason: Protocol Last Admin: 05/14/18 13:00 Dose: 3 units Lactobacillus Acidophilus (Bacid Acidophilus) 1 cap PO BID [facility] Last Admin: 05/14/18 09:04 Dose: 1 cap Latanoprost (Xalatan Opht) 0 ml OU [facility] Last Admin: 05/13/18 21:25 Dose: 2.5 ml Levothyroxine Sodium (Synthroid) 50 mcg PO DAILY@0630 [facility] Last Admin: 05/14/18 05:37 Dose: 50 mcg Metoprolol Succinate (Toprol Xl) 100 mg PO DAILY [facility] Last Admin: 05/14/18 09:03 Dose: 100 mg Rosuvastatin Calcium (Crestor) 10 mg PO [facility] Last Admin: 05/13/18 21:24 Dose: 10 mg Simethicone (Mylicon Chew Tab) 80 mg PO TID [facility] Last Admin: 05/14/18 13:03 Dose: 80 mg Sodium Bicarbonate (Sodium Bicarbonate Tab) 650 mg PO BID [facility] Last Admin: 05/14/18 09:09 Dose: 650 mg Tolterodine Tartrate (Detrol La) 4 mg PO DAILY [facility] Last Admin: 05/14/18 09:04 Dose: 4 mg - Labs Labs: 05/14/18 07:18 05/14/18 07:18 - Constitutional Appears: No Acute Distress, Chronically Ill - Head Exam Head Exam: ATRAUMATIC, NORMAL INSPECTION - Eye Exam Eye Exam: EOMI, Normal appearance - Neck Exam Neck Exam: Normal Inspection. absent: Tenderness - Respiratory Exam Respiratory Exam: Clear to Ausculation Bilateral, NORMAL BREATHING PATTERN - Cardiovascular Exam Cardiovascular Exam: REGULAR RHYTHM, +S1 - GI/Abdominal Exam GI & Abdominal Exam: Soft. absent: Tenderness - Extremities Exam Extremities Exam: Normal Inspection. absent: Tenderness - Neurological Exam Neurological Exam: Alert, CN II-XII Intact - Skin Skin Exam: Dry, Warm Assessment and Plan (1) UTI (urinary tract infection) Status: Acute (2) Acute renal insufficiency Status: Acute (3) CKD (chronic kidney disease) stage 3, GFR 30-59 ml/min Status: Acute (4) CVA, old, cognitive deficits Status: Acute - Assessment and Plan (Free Text) Plan: Agree with switch to po antibiotics Same BP meds Might have RTA as pt remaining acidotic; likely has CKD If discharged can follow up in few weeks and determine if pt still needs na bicarb
[2018-05-14 15:42] VITALS: BP 148/72; PULSE 60; TEMP 98.5; O2SAT 98
--- NOTE | 2018-05-14 16:19 | CP.PCM.DIS ---
<AnabelleHari - Last Filed: 05/14/18 18:02> Provider - Provider Date of Admission: 05/10/18 23:34 Attending physician: Jonnathan Malin MD Time Spent in preparation of Discharge (in minutes): 40 Hospital Course - Lab Results Lab Results: Micro Results 05/13/18 14:35 Urine,Clean Catch Urine Culture - Final No Growth (<1,000 CFU/ML) 05/10/18 23:30 Blood-Venous Blood Culture - Preliminary NO GROWTH AFTER 3 DAYS 05/10/18 23:00 Blood-Venous Blood Culture - Preliminary NO GROWTH AFTER 3 DAYS 05/10/18 23:56 Urine,Clean Catch Urine Culture - Final Klebsiella Pneumoniae Ssp Pneu Most Recent Lab Values WBC 6.4 K/uL (4.8-10.8) 05/14/18 07:18 RBC 3.73 Mil/uL (4.40-5.90) L 05/14/18 07:18 Hgb 11.0 g/dL (12.0-18.0) L 05/14/18 07:18 Hct 31.0 % (35.0-51.0) L 05/14/18 07:18 MCV 82.9 fL (80.0-94.0) 05/14/18 07:18 MCH 29.6 pg (27.0-31.0) 05/14/18 07:18 MCHC 35.7 g/dL (33.0-37.0) 05/14/18 07:18 RDW 14.1 % (11.5-14.5) 05/14/18 07:18 Plt Count 217 K/uL (130-400) 05/14/18 07:18 MPV 9.4 fL (7.2-11.7) 05/14/18 07:18 Neut % (Auto) 44.6 % (50.0-75.0) L 05/14/18 07:18 Lymph % (Auto) 36.4 % (20.0-40.0) 05/14/18 07:18 [place] % (Auto) 12.5 % (0.0-10.0) H 05/14/18 07:18 Eos % (Auto) 5.2 % (0.0-4.0) H 05/14/18 07:18 Baso % (Auto) 1.3 % (0.0-2.0) 05/14/18 07:18 Neut # (Auto) 2.9 K/uL (1.8-7.0) 05/14/18 07:18 Lymph # (Auto) 2.3 K/uL (1.0-4.3) 05/14/18 07:18 [place] # (Auto) 0.8 K/uL (0.0-0.8) 05/14/18 07:18 Eos # (Auto) 0.3 K/uL (0.0-0.7) 05/14/18 07:18 Baso # (Auto) 0.1 K/uL (0.0-0.2) 05/14/18 07:18 Sodium 139 mmol/L (132-148) 05/14/18 07:18 Potassium 4.2 mmol/L (3.6-5.2) 05/14/18 07:18 Chloride 108 mmol/L (98-107) H 05/14/18 07:18 Carbon Dioxide 18 mmol/L (22-30) L 05/14/18 07:18 Anion Gap 17 (10-20) 05/14/18 07:18 BUN 23 mg/dL (9-20) H 05/14/18 07:18 Creatinine 1.6 mg/dL (0.8-1.5) H 05/14/18 07:18 Est GFR ( Amer) 50 05/14/18 07:18 Est GFR (Non-Af Amer) 42 05/14/18 07:18 POC Glucose (mg/dL) 276 mg/dL (65-110) H 05/14/18 11:09 Random Glucose 181 mg/dL (75-110) H 05/14/18 07:18 Hemoglobin A1c 8.5 % (4.2-6.5) H 05/11/18 08:16 Calcium 9.2 mg/dl (8.6-10.4) 05/14/18 07:18 Phosphorus 3.2 mg/dL (2.5-4.5) 05/14/18 07:18 Magnesium 1.6 mg/dL (1.6-2.3) 05/14/18 07:18 Total Bilirubin 0.4 mg/dL (0.2-1.3) 05/14/18 07:18 AST 29 U/L (17-59) 05/14/18 07:18 ALT 22 U/L (21-72) 05/14/18 07:18 Alkaline Phosphatase 63 U/L (38-126) 05/14/18 07:18 Total Protein 6.5 g/dL (6.3-8.3) 05/14/18 07:18 Albumin 3.8 g/dL (3.5-5.0) 05/14/18 07:18 Globulin 2.6 gm/dL (2.2-3.9) 05/14/18 07:18 Albumin/Globulin Ratio 1.4 (1.0-2.1) 05/14/18 07:18 Triglycerides 333 mg/dL (0-149) H D 05/11/18 08:16 Cholesterol 265 mg/dL (0-199) H 05/11/18 08:16 LDL Cholesterol Direct 102 mg/dL (0-129) 05/11/18 08:16 HDL Cholesterol 28 mg/dL (30-70) L 05/11/18 08:16 Prostate Specific Ag 0.660 ng/mL (0.00-4.0) 05/11/18 08:16 Free T4 1.23 ng/dL (0.78-2.19) 05/11/18 08:16 TSH 3rd Generation 1.80 mIU/L (0.46-4.68) 05/11/18 08:16 Urine Color Straw (YELLOW) 05/13/18 13:10 Urine Clarity Clear (Clear) 05/13/18 13:10 Urine pH 6.0 (5.0-8.0) 05/13/18 13:10 Ur Specific [place] 1.011 (1.003-1.030) 05/13/18 13:10 Urine Protein 2+ mg/dL (NEGATIVE) H 05/13/18 13:10 Urine Glucose (UA) 3+ mg/dL (Normal) H 05/13/18 13:10 Urine Ketones Negative mg/dL (NEGATIVE) 05/13/18 13:10 Urine Blood Negative (NEGATIVE) 05/13/18 13:10 Urine Nitrate Negative (NEGATIVE) 05/13/18 13:10 Urine Bilirubin Negative (NEGATIVE) 05/13/18 13:10 Urine Urobilinogen Normal mg/dL (0.2-1.0) 05/13/18 13:10 Ur Leukocyte Esterase Neg David/uL (Negative) 05/13/18 13:10 Urine WBC (Auto) 1 /hpf (0-5) 05/13/18 13:10 Urine RBC (Auto) < 1 /hpf (0-3) 05/13/18 13:10 Ur Squamous Epith Cells < 1 /hpf (0-5) 05/13/18 13:10 Urine Bacteria Many (<OCC) H 05/10/18 23:13 Hyaline Casts 6-10 /lpf (0-2) H 05/10/18 23:13 Urine Collection Time 24 HRS 05/14/18 14:16 Urine Total Volume 6900 mL 05/14/18 14:16 Ur Protein 24 Hr Calc 2691.0 mg/24hr (42-225) H 05/14/18 14:16 - Hospital Course Hospital Course: HPI: Patient is an 82 year old male with a past medical history of HTN, DM, HLD, 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 complaints of agitation. As per patient's niece, pt awoke from his sleep in an agitated state and was yelling incoherently. EMS was called. Upon arrival, EMS found that the patient was hypoglycemic. EMS gave the patient 1 amp of D50 enroute. After administration of D50, patient returned to baseline. Patient does not remember the events that transpired prior to EMS being called. The patient's niece states he has been compliant with medications and has not missed any meals. He has been healthy prior to this event tonight. Patient does admit to increased urinary frequency but denies dysuria or foul smelling urine. Denies fevers, chills, nausea, vomiting, diarrhea, constipation , chest pain, shortness of breath, abdominal pain, headache, numbness, tingling , slurred speech or focal weakness. Hospital Course: Patient was admitted on 05/10/18 for AMS episode in the setting of hypoglycemia and UTI finding. Chest XR on 05/10 demonstrated no acute disease. EKG obtained demonstrated normal sinus rhythm with left axis deviation and left ventricular hypertrophy. WBC was elevated at 15.0 , UA was positive for LE, protein, many bacteria, and UCx was positive for Klebsiella. BCx demonstrated no growth. Rocephin 1 gm IVPB daily was started on 05/11. No acute events were reported during the course of hospital stay. AMS episode was resolved upon admission. Patient remained afebrile, WBC count normalized. Repeat UCx on 05/13 was negative. Nephrology (Dr. Oconnell) was consulted for hx of acute on chronic renal failure. Patient's home dose of HCTZ/Valsartan was held due to nephrotoxicity. Renal U/S was negative for acute disease. 24 hour urine protein collection was elevated at 2691. Patient to follow up with Nephrology as outpatient within a few weeks to follow up lab results and determine the need for continued administration of sodium bicarbonate. Pt is medically stable for discharge, per Dr. Menchaca. Patient to complete 3 day course of ciprofloxacin 250 mg twice a day starting tomorrow. Pt to complete a 2 week course of probiotics to clear gut kendrick. Patient to also follow up with Dr. Dari Pinedo regarding elevated PSA level since he does not regularly follow a urologist. Patient is medically stable and can resume care with medical rehab. Pt will need script for physical therapy eval & treatment, to be provided in the chart. If symptoms persist, please return to ED. This is a summary of hospital course. Please refer to EMR for full detail. Discharge Exam - Head Exam Head Exam: ATRAUMATIC, NORMAL INSPECTION - Eye Exam Eye Exam: EOMI, Normal appearance Pupil Exam: NORMAL ACCOMODATION - ENT Exam ENT Exam: Mucous Membranes Moist, Normal Exam - Respiratory Exam Respiratory Exam: NORMAL BREATHING PATTERN - Cardiovascular Exam Cardiovascular Exam: REGULAR RHYTHM, +S1, +S2 - GI/Abdominal Exam GI & Abdominal Exam: Normal Bowel Sounds, Soft, Unremarkable. absent: Distended , Tenderness - Extremities Exam Extremities exam: normal inspection - Neurological Exam Neurological exam: Alert Additional comments: Hx of mild dementia. - Psychiatric Exam Psychiatric exam: Normal Affect, Normal Mood - Skin Skin Exam: Dry, Intact, Normal Color, Warm Discharge Plan - Discharge Medications Prescriptions: RX: amLODIPine [Norvasc] 10 mg PO DAILY #30 tab RX: Ascorbic Acid [Vitamin C 250 mg Tab] 250 mg PO DAILY #30 tab RX: Aspirin [Aspirin Chewable] 81 mg PO DAILY #30 chew RX: Ciprofloxacin HCl [Cipro] 250 mg PO BID #6 tablet RX: Clopidogrel [Plavix] 75 mg PO DAILY #30 tab RX: Donepezil [Aricept] 10 mg PO HS #30 tab RX: Famotidine [Pepcid] 20 mg PO DAILY #30 tab RX: Ferrous Sulfate [Feosol] 325 mg PO BID #60 tab RX: Gemfibrozil [Lopid] 600 mg PO BID #30 tab RX: Lactobacillus Acidophilus [Acidophilus] 1 each PO BID #14 tablet RX: Latanoprost 0.005% Opht [Xalatan Opht] 1 drop OU HS #1 bottle RX: Levothyroxine [Synthroid] 50 mcg PO DAILY@0630 #30 tab RX: Metoprolol Succinate XL [Toprol XL] 100 mg PO DAILY #30 tab RX: Rosuvastatin Calcium [Crestor] 10 mg PO HS #30 tab - Follow Up Plan Condition: FAIR Disposition: HOME/ ROUTINE Instructions: Urinary Tract Infection in Men (DC) Additional Instructions: Pt is medically stable for discharge. Pt to complete 3 day course of ciprofloxacin 250 mg twice a day starting tomorrow. Pt to complete a 2 week course of probiotic to clear gut kendrick. Please provide patient information of Dr. Dari Pinedo: regarding elevated PSA level since he does not regularly follow a urologist. Pt is medically stable and can resume care with medical rehab. Pt will need script for physical therapy eval & treatment, to be provided in the chart. Referrals: Ervin Oconnell MD [Staff Provider] - Zac Pinedo MD [Staff Provider] - <Gladys Menchaca V - Last Filed: 05/16/18 23:51> Provider - Provider Date of Admission: 05/10/18 23:34 Attending physician: Jonnathan Malin MD Hospital Course - Lab Results Lab Results: Micro Results 05/10/18 23:30 Blood-Venous Blood Culture - Final NO GROWTH AFTER 5 DAYS 05/10/18 23:30 Blood-Venous Gram Stain - Final TEST NOT PERFORMED 05/10/18 23:00 Blood-Venous Blood Culture - Final NO GROWTH AFTER 5 DAYS 05/10/18 23:00 Blood-Venous Gram Stain - Final TEST NOT PERFORMED 05/13/18 14:35 Urine,Clean Catch Urine Culture - Final No Growth (<1,000 CFU/ML) 05/10/18 23:56 Urine,Clean Catch Urine Culture - Final Klebsiella Pneumoniae Ssp Pneu Most Recent Lab Values WBC 6.4 K/uL (4.8-10.8) 05/14/18 07:18 RBC 3.73 Mil/uL (4.40-5.90) L 05/14/18 07:18 Hgb 11.0 g/dL (12.0-18.0) L 05/14/18 07:18 Hct 31.0 % (35.0-51.0) L 05/14/18 07:18 MCV 82.9 fL (80.0-94.0) 05/14/18 07: MCH 29.6 pg (27.0-31.0) 05/14/18 07:18 MCHC 35.7 g/dL (33.0-37.0) 05/14/18 07:18 RDW 14.1 % (11.5-14.5) 05/14/18 07:18 Plt Count 217 K/uL (130-400) 05/14/18 07:18 MPV 9.4 fL (7.2-11.7) 05/14/18 07:18 Neut % (Auto) 44.6 % (50.0-75.0) L 05/14/18 07:18 Lymph % (Auto) 36.4 % (20.0-40.0) 05/14/18 07:18 [place] % (Auto) 12.5 % (0.0-10.0) H 05/14/18 07:18 Eos % (Auto) 5.2 % (0.0-4.0) H 05/14/18 07:18 Baso % (Auto) 1.3 % (0.0-2.0) 05/14/18:18 Neut # (Auto) 2.9 K/uL (1.8-7.0) 05/14/18 07:18 Lymph # (Auto) 2.3 K/uL (1.0-4.3) 05/14/18 07:18 [place] # (Auto) 0.8 K/uL (0.0-0.8) 05/14/18 07:18 Eos # (Auto) 0.3 K/uL (0.0-0.7) 05/14/18 07:18 Baso # (Auto) 0.1 K/uL (0.0-0.2) 05/14/18 07:18 Sodium 139 mmol/L (132-148) 05/14/18 07:18 Potassium 4.2 mmol/L (3.6-5.2) 05/14/18 07:18 Chloride 108 mmol/L (98-107) H 05/14/18 07:18 Carbon Dioxide 18 mmol/L (22-30) L 05/14/18 07:18 Anion Gap 17 (10-20) 05/14/18 07:18 BUN 23 mg/dL (9-20) H 05/14/18 07:18 Creatinine 1.6 mg/dL (0.8-1.5) H 05/14/18 07:18 Est GFR ( Amer) 50 05/14/18 07:18 Est GFR (Non-Af Amer) 42 05/14/18 07:18 POC Glucose (mg/dL) 179 mg/dL (65-110) H 05/14/18 16:15 Random Glucose 181 mg/dL (75-110) H 05/14/18 07:18 Hemoglobin A1c 8.5 % (4.2-6.5) H 05/11/18 08:16 Calcium 9.2 mg/dl (8.6-10.4) 05/14/18 07:18 Phosphorus 3.2 mg/dL (2.5-4.5) 05/14/18 07:18 Magnesium 1.6 mg/dL (1.6-2.3) 05/14/18 07:18 Total Bilirubin 0.4 mg/dL (0.2-1.3) 05/14/18 07:18 AST 29 U/L (17-59) 05/14/18 07:18 ALT 22 U/L (21-72) 05/14/18 07:18 Alkaline Phosphatase 63 U/L (38-126) 05/14/18 07:18 Total Protein 6.5 g/dL (6.3-8.3) 05/14/18 07:18 Albumin 3.8 g/dL (3.5-5.0) 05/14/18 07:18 Globulin 2.6 gm/dL (2.2-3.9) 05/14/18 07:18 Albumin/Globulin Ratio 1.4 (1.0-2.1) 05/14/18 07:18 Triglycerides 333 mg/dL (0-149) H D 05/11/18 08:16 Cholesterol 265 mg/dL (0-199) H 05/11/18 08:16 LDL Cholesterol Direct 102 mg/dL (0-129) 05/11/18 08:16 HDL Cholesterol 28 mg/dL (30-70) L 05/11/18 08:16 Prostate Specific Ag 0.660 ng/mL (0.00-4.0) 05/11/18 08:16 Free T4 1.23 ng/dL (0.78-2.19) 05/11/18 08:16 TSH 3rd Generation 1.80 mIU/L (0.46-4.68) 05/11/18 08:16 Urine Color Straw (YELLOW) 05/13/18 13:10 Urine Clarity Clear (Clear) 05/13/18 13:10 Urine pH 6.0 (5.0-8.0) 05/13/18 13:10 Ur Specific [place] 1.011 (1.003-1.030) 05/13/18 13:10 Urine Protein 2+ mg/dL (NEGATIVE) H 05/13/18 13:10 Urine Glucose (UA) 3+ mg/dL (Normal) H 05/13/18 13:10 Urine Ketones Negative mg/dL (NEGATIVE) 05/13/18 13:10 Urine Blood Negative (NEGATIVE) 05/13/18 13:10 Urine Nitrate Negative (NEGATIVE) 05/13/18 13:10 Urine Bilirubin Negative (NEGATIVE) 05/13/18 13:10 Urine Urobilinogen Normal mg/dL (0.2-1.0) 05/13/18 13:10 Ur Leukocyte Esterase Neg David/uL (Negative) 05/13/18 13:10 Urine WBC (Auto) 1 /hpf (0-5) 05/13/18 13:10 Urine RBC (Auto) < 1 /hpf (0-3) 05/13/18 13:10 Ur Squamous Epith Cells < 1 /hpf (0-5) 05/13/18 13:10 Urine Bacteria Many (<OCC) H 05/10/18 23:13 Hyaline Casts 6-10 /lpf (0-2) H 05/10/18 23:13 Urine Collection Time 24 HRS 05/14/18 14:16 Urine Total Volume 6900 mL 05/14/18 14:16 Ur Protein 24 Hr Calc 2691.0 mg/24hr (42-225) H 05/14/18 14:16 Attending/Attestation - Attestation I have personally seen and examined this patient.: Yes I have fully participated in the care of the patient.: Yes I have reviewed all pertinent clinical information, including history, physical exam and plan: Yes Notes (Text): This is late computer entry for 05/14/18. Patient seen, examined and case discussed with medical staff manager. Patient seen at bedside this morning. Patient is not in acute distress; he is at baseline dementia no family present at bedside. Patient's repeat urine culture shows no growth. Patient has received Rocephin 1 gram IV q daily while hospitalization. Patient to be discharged on Ciprofloaxin 250mg PO BID for 3 days. Case discussed with nephrology, patient recommended to follow-up outpatient, does not need sodium bicarbonate tabs, and to hold arb/hctz upon discharge. Discussed with case management, patient is medically stable to medical adult day care and his niece Lyndsey is aware. This is a summary of patient's hospitalization. Please see EMR for further details on discharge. Discharge Diagnoses: 1) Acute Renal Failure-->Stable Assessment/Plan * Nephrology (Dr. Oconnell) on board-->help appreciated * Could be 2/2 to Valsartan-HCTZ --> will hold home medication on discharge * d/c sodium bicarbonate tabs upon discharge * Follow-up with nephrology on discharge 2) Urinary Tract Infection--Stable Assessment/Plan * UA (clean catch) 05/10: Leuk Zahra 3+, Blood 1+ * Urine culture (05/10/18): Klebsiella Pneumoniae * Urine culture (05/13/18): no growth * Blood cultures (05/10/18): no growth after 48 hours X2 * d/c on ciprofloxacin 250mg PO BID for 3 days Medications * Rocephin 1gm IVPB daily (started on 05/11/18) * Will switch to Cipro PO for discharge planning * Given one dose of Cefepime 1gm IVPB while in ED on 05/10/18 3) Leukocytosis-->normalized Assessment/Plan * Has normalized * Urine culture (05/10/18): Klebsiella Pneumoniae * Urine culture (05/13/18): pending * Blood cultures (05/10/18): no growth after 48 hours X2 * Afebrile 4) Hypoglycemia Episode-->resolved Assessment/Plan * Noted in ED triage note * Given Glucagon on route on ambulance * Patient is at baseline mental status * Hypoglycemic protocol * lantus 10 units subHS * Regular insulin sliding scale subq * Accuchecks QAC and HS 5) Hx of Atrial Fibrillation--.chronic Assessment/Plan * Metoprolol Succinate 100 mg PO daily * Aspirin 81 mg PO daily 6) Hx CVA Chronic (Right Sided Deficit)-->chronic Assessment/Plan * Aspirin 81 mg PO daily * Plavix 75 mg PO daily * Crestor 10 mg PO HS 7) Hx of Dementia (Alzheimers)-->chronic Assessment/Plan * Aricept 10 mg DARNELL daily 8) Hx of Anemia of Chronic Disease-->chronic Assessment/Plan * Monitor H/H 9) Hx of HLD-->chronic Assessment/Plan * T, Chol: 265, LDL: 102, HDL: 28 Medications * Lopid 600 mg PO BID * Crestor 10 mg PO HS 10) Hypertension-->chronic Assessment/Plan Medications * Metoprolol Succinate 10 mg PO daily * Norvasc 10 mg PO daily * hold arb/hctz on discharge 11) Hx DM, uncontrolled-->chronic Assessment/Plan * Hgba1c: 8.5 * Noted in ED triage note * Given Glucagon on route on ambulance * Patient is at baseline mental status * Hypoglycemic protocol * lantus 10 units subHS * Regular insulin sliding scale subq * Accuchecks QAC and HS * Crestor 10 mg PO HS * Aspirin 81mg PO daily 12) Hx of Hypothyroidism-->chronic Assessment/Plan * Thyroid studies within normal * Levothyroxine 50 mg PO/day 13) Hx of Overactive Bladder-->chronic Assessment/Plan * PSA elevated 23.3 - Sep 2017-->improved 0.660 * Will need to f/u with family about urology as outpatient; recommended to follow-up with Sherri Pinedo on discharge * Toviaz 8 mg PO/day (please have family bring home medication in) 14) Hx of Glaucoma -->chronic Assessment/Plan Medications * Travatan changed to Xalatan 1 drop b/l eyes during hospitalization 15) Hx of GERD-->chronic Assessment/Plan * Pepcid 20mg/day 16) Prophylaxis * Turn Pt Q2H * PT eval & tx * B/l SCDs * DVT - Heparin 5,000 units SC QSH * GI - Pepcid 20mg PO daily
--- NOTE | 2018-05-14 16:55 | CP.PCM.PCO ---
Physician Communication Note - Physician Communication Note Physician Communication Note: Pt is medically stable. Can go back to adult daycare facility.
[2018-05-14] MEDS: Latanoprost 2.5 ml Opht Soln OU SCH (21:15)
== END 2018-05-14 21:17 | disposition home or self-care (01) | DRG 690 ==
LOC: C.ER 21:36 → C.9E 23:34 → C.5S 05-11 01:02
PROVIDERS: ADMIT Family Medicine; ATTEND Family Medicine
DX: N39.0 Urinary tract infection, site not specified (principal); I69.351 Hemiplegia and hemiparesis following cerebral infarction affecting right dominant side; N17.9 Acute kidney failure, unspecified; E03.9 Hypothyroidism, unspecified; I12.9 Hypertensive chronic kidney disease with stage 1 through stage 4 chronic kidney disease, or unspecified chronic kidney disease; E11.22 Type 2 diabetes mellitus with diabetic chronic kidney disease; N18.3 Chronic kidney disease, stage 3 (moderate); I48.91 Unspecified atrial fibrillation; Z79.02 Long term (current) use of antithrombotics/antiplatelets; Z79.82 Long term (current) use of aspirin; Z86.74 Personal history of sudden cardiac arrest; Z87.01 Personal history of pneumonia (recurrent); H40.9 Unspecified glaucoma; G30.9 Alzheimer's disease, unspecified; F02.80 Dementia in other diseases classified elsewhere, unspecified severity, without behavioral disturbance, psychotic disturbance, mood disturbance, and anxiety; E78.5 Hyperlipidemia, unspecified; E11.649 Type 2 diabetes mellitus with hypoglycemia without coma; Z87.891 Personal history of nicotine dependence; Z95.5 Presence of coronary angioplasty implant and graft; D63.1 Anemia in chronic kidney disease; B96.1 Klebsiella pneumoniae [K. pneumoniae] as the cause of diseases classified elsewhere